=== PATIENT | male | born 1950 | race Caucasian/White ===

== ENCOUNTER 2022-07-28 14:23 | Outpatient (CLI) | payer MEDICARE, SELFPAY ==
[2022-07-28 18:46] LABS: Basophils Absolute Auto 0.1 K/mm3 (0.0-0.1); Basophils Percent Auto 0.6 % (0.2-1.2); Eosinophils Absolute Auto 0.1 K/mm3 (0-0.3); Eosinophils Percent Auto 0.7 % (0-4.4); Hematocrit 45.9 % (42.0-52.0); Hemoglobin 14.8 g/dL (14.0-18.0); Immature Granulocyte Absolute 0.23 K/mm3 (0.00-0.031); Immature Granulocyte Percent A 1.3 % (0-0.5); Lymphocytes Absolute Auto 1.89 K/mm3 (0.9-3.2); Lymphocytes Percent Auto 10.6 % (18.3-44.2); Mean Corpuscular HGB Conc 32.2 g/dl (32-36); Mean Corpuscular Hemoglobin 29.7 pg (26-34); Mean Corpuscular Volume 92.2 fl (80-100); Mean Platelet Volume 10.8 fl (7.4-10.4); Monocytes Absolute Auto 1.6 K/mm3 (0.1-0.6); Monocytes Percent Auto 8.8 % (2.6-8.5); Neutrophils Absolute Auto 13.8 K/mm3 (1.3-6.7); Platelet Count Result 312 k/mm3 (150-375); Red Blood Count 4.98 M/mm3 (4.6-6.20); Red Cell Distribution Width 13.5 % (11.5-14.5); White Blood Count 17.8 K/mm3 (4.5-10.0)
[2022-07-28 19:05] LABS: Hemoglobin A1C 5.8 % (<5.7)
[2022-07-28 19:13] LABS: Alanine Aminotransferase 16 U/L (6-50); Albumin Level 4.4 g/dL (3.5-5.1); Alkaline Phosphatase 124 U/L (38-126); Anion Gap 7 mmol/L (8-16); Aspartate Amino Transferase 59 U/L (17-59); Bilirubin,Total 0.6 mg/dL (0.2-1.3); Blood Urea Nitrogen 26 mg/dL (9-20); Calcium 9.3 mg/dL (8.4-10.2); Carbon Dioxide 28 mmol/L (22-30); Chloride 106 mmol/L (98-107); Cholesterol 151 mg/dL (0-200); Estimated Glomerular Filt Rate 43; Glucose 102 mg/dL (65-110); HDL Direct 26 mg/dL; Potassium 3.3 mmol/L (3.4-5.0); Sodium 141 mmol/L (137-145); Triglycerides 232 mg/dL (<150)
[2022-07-28 19:24] LABS: LDL Cholesterol Direct 81 mg/dL
[2022-07-28 19:28] LABS: Creatinine Urine 311.7 mg/dL
[2022-07-28 19:32] LABS: MALB Creatinine Ratio 40.3 mg/g (0-30); Microalbumin Urine Random 125.7 mg/L (0-16.7)
[2022-07-28 19:43] LABS: Prostate Specific Antigen 3.3 ng/mL (< OR = 4.0)
== END 2022-07-28 14:24 | disposition home or self-care (01) ==
PROVIDERS: PCP Family Medicine; Visit Provider Family Medicine
DX: E11.9 Type 2 diabetes mellitus without complications (principal); G62.9 Polyneuropathy, unspecified; Z12.5 Encounter for screening for malignant neoplasm of prostate
CPT/HCPCS: 36415; 80053; 80061; 82043; 82607; 83036; 84153; 84443; 85025; G0103

== ENCOUNTER 2022-08-16 10:47 | Outpatient (CLI) | payer MEDICARE, SELFPAY ==
[2022-08-16 19:01] LABS: Basophils Absolute Auto 0.1 K/mm3 (0.0-0.1); Basophils Percent Auto 0.3 % (0.2-1.2); Eosinophils Absolute Auto 0.1 K/mm3 (0-0.3); Eosinophils Percent Auto 0.7 % (0-4.4); Hematocrit 45.7 % (42.0-52.0); Hemoglobin 14.4 g/dL (14.0-18.0); Immature Granulocyte Absolute 0.21 K/mm3 (0.00-0.031); Immature Granulocyte Percent A 1.4 % (0-0.5); Lymphocytes Absolute Auto 1.14 K/mm3 (0.9-3.2); Lymphocytes Percent Auto 7.7 % (18.3-44.2); Mean Corpuscular HGB Conc 31.5 g/dl (32-36); Mean Corpuscular Hemoglobin 29.7 pg (26-34); Mean Corpuscular Volume 94.2 fl (80-100); Mean Platelet Volume 10.5 fl (7.4-10.4); Monocytes Percent Auto 6.7 % (2.6-8.5); Neutrophils Absolute Auto 12.3 K/mm3 (1.3-6.7); Neutrophils Percent Auto 83.2 % (45.5-73.1); Platelet Count Result 240 k/mm3 (150-375); Red Blood Count 4.85 M/mm3 (4.6-6.20); White Blood Count 14.8 K/mm3 (4.5-10.0)
[2022-08-16 20:25] LABS: Anion Gap 5 mmol/L (8-16); Blood Urea Nitrogen 29 mg/dL (9-20); Calcium 8.9 mg/dL (8.4-10.2); Carbon Dioxide 24 mmol/L (22-30); Chloride 112 mmol/L (98-107); Estimated Glomerular Filt Rate 50; Glucose 125 mg/dL (65-110); Potassium 3.7 mmol/L (3.4-5.0); Sodium 141 mmol/L (137-145)
== END 2022-08-16 10:48 | disposition home or self-care (01) ==
PROVIDERS: PCP Family Medicine; Visit Provider Family Medicine
DX: N17.9 Acute kidney failure, unspecified (principal); D72.829 Elevated white blood cell count, unspecified
CPT/HCPCS: 36415; 80048; 85025

== ENCOUNTER 2022-08-18 14:15 | Outpatient (CLI) | payer MEDICARE, SELFPAY ==
[2022-08-18 19:48] LABS: CRP < 0.5 mg/dL (<1.0)
[2022-08-18 20:00] LABS: Procalcitonin 0.4 ng/mL
[2022-08-18 20:41] LABS: Erythrocyte Sedimentation Rate 20 mm/hr (0-20)
== END 2022-08-18 14:16 | disposition home or self-care (01) ==
PROVIDERS: PCP Family Medicine; Visit Provider Nurse Practitioner Family
DX: D72.829 Elevated white blood cell count, unspecified (principal); R89.9 Unspecified abnormal finding in specimens from other organs, systems and tissues; N17.9 Acute kidney failure, unspecified
CPT/HCPCS: 36415; 84145; 85652; 86038; 86140

== ENCOUNTER 2023-02-08 08:52 | Outpatient (CLI) | payer MEDICARE, SELFPAY ==
[2023-02-08 18:42] LABS: Anion Gap 10 mmol/L (8-16); Blood Urea Nitrogen 30 mg/dL (9-20); Calcium 9.4 mg/dL (8.4-10.2); Carbon Dioxide 26 mmol/L (22-30); Chloride 108 mmol/L (98-107); Estimated Glomerular Filt Rate 40; Glucose 125 mg/dL (65-110); Sodium 144 mmol/L (137-145)
[2023-02-08 19:22] LABS: Hemoglobin A1C 6.2 % (<5.7)
== END 2023-02-08 08:53 | disposition home or self-care (01) ==
PROVIDERS: PCP Family Medicine; Visit Provider Nurse Practitioner Adult Health
DX: N28.9 Disorder of kidney and ureter, unspecified (principal); G47.30 Sleep apnea, unspecified; E11.9 Type 2 diabetes mellitus without complications
CPT/HCPCS: 36415; 80048; 83036

== ENCOUNTER 2023-05-30 11:56 | Outpatient (CLI) | payer MEDICARE, SELFPAY ==
--- NOTE | ~2023-05-30 | XR_ITS ---
XR elbow LT min 3V DATE: 05/30/2023 12:13 INDICATION: Lateral pain. Limited motion. No injury. TECHNIQUE: 4 views COMPARISON: None FINDINGS: Prominent dorsal olecranon process spur. No fracture or dislocation or joint effusion. No p eriosteal reaction or bone destruction. IMPRESSION: Prominent dorsal olecranon process spur Reviewed, dictated and finalized at location B. 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
[2023-05-30 19:09] LABS: Alanine Aminotransferase 15 U/L (6-50); Alkaline Phosphatase 123 U/L (38-126); Anion Gap 10 mmol/L (8-16); Aspartate Amino Transferase 54 U/L (17-59); Bilirubin,Total 0.7 mg/dL (0.2-1.3); Blood Urea Nitrogen 28 mg/dL (9-20); Calcium 9.4 mg/dL (8.4-10.2); Carbon Dioxide 25 mmol/L (22-30); Chloride 108 mmol/L (98-107); Cholesterol 168 mg/dL (0-200); Estimated Glomerular Filt Rate 43; Glucose 114 mg/dL (65-110); HDL Direct 26 mg/dL; Potassium 3.7 mmol/L (3.4-5.0); Sodium 143 mmol/L (137-145); Triglycerides 297 mg/dL (<150)
[2023-05-30 19:20] LABS: LDL Cholesterol Direct 91 mg/dL
[2023-05-30 19:32] LABS: Hematocrit 47.6 % (42.0-52.0); Hemoglobin 14.5 g/dL (14.0-18.0); Mean Corpuscular HGB Conc 30.5 g/dl (32-36); Mean Corpuscular Hemoglobin 28.9 pg (26-34); Mean Corpuscular Volume 94.8 fl (80-100); Platelet Count Result 256 k/mm3 (150-375); Red Blood Count 5.02 M/mm3 (4.6-6.20); Red Cell Distribution Width 14.6 % (11.5-14.5)
== END 2023-05-30 11:57 | disposition home or self-care (01) ==
PROVIDERS: PCP Family Medicine; Visit Provider Family Medicine
DX: R51.9 Headache, unspecified (principal); M25.522 Pain in left elbow; E11.9 Type 2 diabetes mellitus without complications; R41.89 Other symptoms and signs involving cognitive functions and awareness; Z00.00 Encounter for general adult medical examination without abnormal findings
CPT/HCPCS: 36415; 73080; 80053; 80061; 84443; 85027

== ENCOUNTER 2023-09-07 09:44 | Outpatient (CLI) | payer MEDICARE, SELFPAY ==
[2023-09-07 20:47] LABS: Appearance Urine Clear (Clear); Bilirubin Urine Negative (Negative); Blood Urine Negative (Negative); Color Urine Yellow (Yellow); Glucose Urine UA Negative (Negative); Ketones Urine Negative (Negative); Leukocyte Esterase Ur Negative LEU/UL (Negative); Nitrate Urine Negative (Negative); Protein Urine Negative (Negative); Urobilinogen Urine 0.2 mg/dL (<2.0); pH Urine 5.5 (5.0-9.0)
[2023-09-07 20:56] LABS: Add Urine Microscopic? NO
== END 2023-09-07 09:45 | disposition home or self-care (01) ==
PROVIDERS: PCP Nurse Practitioner Adult Health; Visit Provider Nurse Practitioner Adult Health
DX: R39.9 Unspecified symptoms and signs involving the genitourinary system (principal)
CPT/HCPCS: 81003

== ENCOUNTER 2023-09-22 09:55 | Outpatient (CLI) | payer MEDICARE, SELFPAY ==
[2023-09-22 19:58] LABS: Appearance Urine Cloudy (Clear); Bacteria Urine None Seen /hpf; Bilirubin Urine Negative (Negative); Blood Urine Negative (Negative); Color Urine Yellow (Yellow); Glucose Urine UA Negative (Negative); Ketones Urine Negative (Negative); Leukocyte Esterase Ur Negative LEU/UL (Negative); Need Manual Microscopic Reviewed; Nitrate Urine Negative (Negative); Non Pathogenic Casts 0-2; Protein Urine Trace mg/dL (Negative); RBC Urine 0-2 /hpf (0-2); Specific Grav Ur 1.021 (1.001-1.035); Spermatozoa Urine Present; Squamous Epithelial Cell Urine Occasional /hpf (Few); Urobilinogen Urine 0.2 mg/dL (<2.0); WBC Urine 0-5 /hpf (0-3)
[2023-09-22 20:00] LABS: Add Urine Microscopic? YES
[2023-09-22 20:01] LABS: Alanine Aminotransferase 17 U/L (6-50); Albumin Level 4.2 g/dL (3.5-5.1); Alkaline Phosphatase 108 U/L (38-126); Anion Gap 8 mmol/L (4-12); Aspartate Amino Transferase 81 U/L (17-59); Bilirubin,Total 0.6 mg/dL (0.2-1.3); Blood Urea Nitrogen 33 mg/dL (9-20); Calcium 9.1 mg/dL (8.4-10.2); Carbon Dioxide 25 mmol/L (22-30); Chloride 110 mmol/L (98-107); Cholesterol 164 mg/dL (0-200); Estimated Glomerular Filt Rate 46; Glucose 91 mg/dL (65-110); HDL Direct 28 mg/dL; Potassium 3.7 mmol/L (3.4-5.0); Sodium 143 mmol/L (137-145); Triglycerides 173 mg/dL (<150)
[2023-09-22 20:12] LABS: LDL Cholesterol Direct 101 mg/dL
[2023-09-22 20:25] LABS: Microalbumin Urine Random 60.9 mg/L (0-16.7)
[2023-09-22 20:27] LABS: Hemoglobin A1C 6.2 % (<5.7)
[2023-09-22 20:28] LABS: Prostate Specific Antigen 3.8 ng/mL (< OR = 4.0)
[2023-09-22 20:35] LABS: Creatinine Urine 154.3 mg/dL; MALB Creatinine Ratio 39.5 mg/g (0-30)
== END 2023-09-22 09:56 | disposition home or self-care (01) ==
PROVIDERS: PCP Nurse Practitioner Adult Health; Visit Provider Nurse Practitioner Adult Health
DX: N32.9 Bladder disorder, unspecified (principal); E11.9 Type 2 diabetes mellitus without complications; E07.9 Disorder of thyroid, unspecified; Z12.5 Encounter for screening for malignant neoplasm of prostate
CPT/HCPCS: 36415; 80053; 80061; 81001; 82043; 82565; 83036; 84153; 84443; G0103

== ENCOUNTER 2023-12-07 13:45 | Outpatient (CLI) | payer MEDICARE, SELFPAY ==
[2023-12-07 19:39] LABS: Hematocrit 43.6 % (42.0-52.0); Hemoglobin 13.3 g/dL (14.0-18.0); Mean Corpuscular HGB Conc 30.5 g/dl (32-36); Mean Platelet Volume 10.8 fl (7.4-10.4); Platelet Count Result 229 k/mm3 (150-375); Red Blood Count 4.59 M/mm3 (4.6-6.20); Red Cell Distribution Width 14.4 % (11.5-14.5); White Blood Count 11.2 K/mm3 (4.5-10.0)
[2023-12-07 19:55] LABS: Anion Gap 11 mmol/L (4-12); Blood Urea Nitrogen 34 mg/dL (9-20); Calcium 9.6 mg/dL (8.4-10.2); Carbon Dioxide 29 mmol/L (22-30); Chloride 104 mmol/L (98-107); Estimated Glomerular Filt Rate 40; Glucose 178 mg/dL (65-110); Potassium 3.5 mmol/L (3.4-5.0); Sodium 144 mmol/L (137-145)
== END 2023-12-07 13:46 | disposition home or self-care (01) ==
PROVIDERS: PCP Nurse Practitioner Adult Health; Visit Provider Nurse Practitioner Adult Health
DX: I10 Essential (primary) hypertension (principal)
CPT/HCPCS: 36415; 80048; 85027

== ENCOUNTER 2023-12-20 12:22 | Outpatient (CLI) | payer MEDICARE, SELFPAY ==
[2023-12-20 19:01] LABS: Albumin Level 3.8 g/dL (3.5-5.1); Anion Gap 9 mmol/L (4-12); Blood Urea Nitrogen 35 mg/dL (9-20); Calcium 8.9 mg/dL (8.4-10.2); Carbon Dioxide 29 mmol/L (22-30); Chloride 103 mmol/L (98-107); Estimated Glomerular Filt Rate 40; Glucose 172 mg/dL (65-110); Phosphorus 3.1 mg/dL (2.5-4.5); Potassium 3.6 mmol/L (3.4-5.0); Sodium 141 mmol/L (137-145)
[2023-12-20 19:43] LABS: Hemoglobin A1C 6.9 % (<5.7)
== END 2023-12-20 12:23 | disposition home or self-care (01) ==
PROVIDERS: PCP Nurse Practitioner Adult Health; Visit Provider Nurse Practitioner Adult Health
DX: N28.9 Disorder of kidney and ureter, unspecified (principal); E11.9 Type 2 diabetes mellitus without complications
CPT/HCPCS: 36415; 80069; 83036

== ENCOUNTER 2024-05-28 12:38 | Outpatient (CLI) | payer MEDICARE, SELFPAY ==
--- OUTSIDE RECORDS SUMMARY | 2024-05-28 13:09 | XMS_ITS | Clinical Summary ---
[facility] Organization [facility] Address [address] [place] [address] Care Team Providers Care Rehab Aide Name Role Phone Melchor Woodard MD Primary Care Provider [phone] Allergies Active Allergy Reactions Criticality Noted Date Comments Ceftriaxone Nausea and Vomiting Low 09/23/2021 Hxtcbfc-Ona-Jtp Reductase Inhibitors Other (See Comments) Low 01/26/2018 Generalized pain Medications gabapentin (NEURONTIN) 100 mg capsule TAKE ONE (1) CAPSULE (100 MG TOTAL) BY MOUTH NIGHTLY 08/10/2022 Active losartan (COZAAR) 25 mg tablet 07/28/2022 Active naproxen (NAPROSYN) 500 mg tablet TAKE ONE (1) TABLET (500 MG TOTAL) BY MOUTH TWO (2) (TWO) TIMES a DAY WITH MEALS 08/10/2022 Active nitroglycerin (NITROSTAT) 0.4 mg Tablet, Sublingual Place 0.4 mg under tongue. 12/23/2021 Active topiramate (TOPAMAX) 50 mg tablet TAKE ONE (1) TABLET (50 MG TOTAL) BY MOUTH TWO (2) (TWO) TIMES a DAY 06/16/2022 Active Active Problems No known active problems Family History Medical History Relation Name Comments Heart Disease Father Heart Disease Mother Relation Name Status Comments Daughter 1 Alive Daughter 2 Alive Father Mother Social History Tobacco Use Types Packs/Day Years Used Date Smoking Tobacco: Never Smokeless Tobacco: Never Tobacco Cessation:Counseling Given: Not Answered Alcohol Use Standard Drinks/Week Comments Never 0 (1 standard drink = 0.6 oz pur e alcohol) Sex and Gender Information Value Date Recorded Sex Assigned at Not on file Legal Sex Male 10:59 AM CDT Gender Identity Not on file Sexual Orientation Not on file Last Filed Vital Signs Vital Sign Reading Time Taken Comments Blood Pressure 120/50 09/28/2022 3:22 PM CDT Pulse 66 09/28/2022 3:22 PM CDT Temperature 36.8 ??C (98.2 ??F) 09/28/2022 3:22 PM CD T Respiratory Rate 10 09/28/2022 3:22 PM CDT Oxygen Saturation 98% 09/28/2022 3:22 PM CDT Inhaled Oxygen Concentration - - Weight 109.3 kg (241 lb) 09/28/2022 3:22 PM CDT Height - - Body Mass Index - - Plan of Treatment Health Maintenance Due Date Last Done Comments DIABETES ANNUAL RETINAL EXAM 1970 DIABETES MICROALBUMIN ANNUAL SCREEN 1970 LDL CHOLESTEROL ANNUAL 1970 COLORECTAL SCREENING 1997 Colorectal Cancer Screening 1997 FIT-DNA Q 3 years 1997 FIT/FOBT Q 1 year 1997 Flex Sig/CT Colonography Q 5 years 1997 RSV VACCINE (60+ or ) (1 - Risk 60-74 years 1-dose series) 2012 DIABETES ANNUAL FOOT EXAM 10/28/2022 10/28/2021 INFLUENZA VACCINE (#1) 2023 , 03/18/2020, 02/02/2019, Additional history exists COVID-19 Vaccine (2023-2 5 season) 2024 03/25/2021, 07/08/2020, 06/10/2020 DIABETES HBA1C Q 6 MONTHS 10/12/2024 04/13/2024, DTAP/TDAP/TD VACCINES (3 - T d or Tdap) 02/12/2030 02/13/2020, 12/11/2015 PNEUMOCOCCAL VACCINE 65+ YEARS Completed 09/27/2017 , 03/12/2016 ZOSTER VACCINE Completed 03/19/2020, 11/2018, 03/27/2018 Insurance [facility] [id number] Care Teams Rehab Aide Relationship Specialty Start Date End Date Melchor Woodard MD PCP - General Family Practice 09/28/22
--- OUTSIDE RECORDS SUMMARY | 2024-05-28 13:09 | XMS_ITS | Encounter Summary ---
Author Organization [facility] Address [address] [place] [address] Phone Care Team Providers Care Afternoon Babysitter Name Role Phone Carlos Moran MD Primary Care Provider [phone] Mark De Los Santos MD Unavailable Unavailable Rand Tsang MD Unavailable [phone] Provider, None Primary Care Provider Unavaildanny e Sohail Gould MD Primary Care Provider [phone] Carlos Moran MD Primary Care Provider [phone] Sohail Gould MD Primary Care Provider [phone] Reason for Visit * Reason Comments Medication Refill Encounter Details Date Type Department Care Team (Late st Contact Info) Description 03/21/2020 Refill [facility] Medical [facility] - Primary Care - [place] [address] [place] [address] Carlos Moran MD [address] [place], [place] [id number] Medication Refill Social History Tobacco Use Types Packs/Day Years Used Date Smoking Tobacco: Former Cigarettes 05 26 1 961 - 1985 Smokeless Tobacco: Never Alcohol Use Standard Drinks/Week Comments No 0 (1 standard drink = 0.6 oz pur e alcohol) PHQ-2 Answer Date Recorded Total Score - Questions 1-9 0 06/30 Sexually Active Control Partners Comments Yes Female Sex and Gender Information Value Date Recorded Sex Assigned at Not on file Legal Sex Male 11:59 PM CDT Gender Identity Not on file Sexual Orientation Not on file COVID-19 Exposure Response Date Recorded In the last month, have you been in contact with someone who was confirmed or suspected to have Coronavirus / COVID-19? No / Unsure 03/13/2020 2:58 PM LEGUILLON DEBEADER documented as of this encounter Miscellaneous Notes * Telephone Encounter - Carlos Moran MD - 03/21/2020 10:53 AM LEGUILLON DEBEADER Refill request approved. ILLON DEBEADER * Telephone Encounter - Tavia Pablo [facility] - 03/21/2020 10:42 AM LEGUILLON DEBEADER Medication failed the protocol, provider to review and approve the medication order if appropriate. Requested Prescriptions Pending Prescriptions Disp Refills triamcinolone (KENALOG) 0.1 % Cream [Pharmacy Med Name: TRIAMCINOLONE 0.1% CREAM 0.1 Cream] 80 g 0 Sig: Apply sparingly twice a day to the affected area. Rub cream in until invisible. Not Delegated - Dermatology: Corticosteroids Failed - 03/21/2020 10:40 AM Failed - This refill cannot be delegated Passed - Valid encounter within last 12 months Past Office Visits Recent Outpatient Visits 3 weeks ago Acute pain of left knee [facility] Carlos Moran MD 1 month ago Cellulitis of mouth [facility] Medical [facility] Carlos Moran MD 1 month ago Polyneuropathy associated with underlying disease (HCC) [facility] Family [facility] Carlos Moran MD 4 months ago Hypertension, [facility] Moran MD 8 months ago Urinary pain [facility] Carlos Moran MD Upcoming Appointments Future Appointments In 1 month Fox Shearer MD [facility] month Carlos Moran MD [facility] Medical [facility] - Recent and Past Visits Recent Visits Date Type Provider Dept 02/28/20 Office Visit Carlos Moran MD [facility] [address] 02/18/20 Office Visit Carlos Moran, [facility] [address] 02/05/20 Office Visit Carlos Moran, [facility] [address] 10/24/19 Office Visit Carlos Moran, [place] [address] 07/13/19 Office Visit Carlos Moran, [facility] [place] [facility] 04/23/19 Office Visit Carlos Moran, [place] [facility] 02/12/19 Office Visit Carlos Moran, [facility] Showing recent visits within past 460 days with a meds authorizing provider and meeting all other requirements Future Appointments Date Type Provider Dept 04/24/20 Appointment [facility] future appointments within next 90 days with a meds authorizing provider and meeting all other requirements ILLON DEBEADER documented in this encounter Plan of Treatment Not on file documented as of this encounter Visit Diagnoses Not on filedocumented in this encounter Additional Health Concerns Assessment Noted Time PHQ-9 Depression Total Score: 0 07/13/19 10:00 AM CDT documented as of this encounter Care Teams Afternoon Babysitter Relationship Specialty Start Date End Date Carlos Moran MD [address] [place] [id number] PCP - General Internal Medicine 01/28/15 04/21/20 Provider, None ID PCP - General 04/22/20 08/04/20 Sohail Gould MD [address] [place] [id number] PCP - General Family Medicine 08/05/20 10/06/20 Carlos Moran MD [address] [place] [id number] PCP - General Internal Medicine 10/07/20 08/19/21 Sohail Gould MD [address] [place] [id number] PCP - General Family Medicine 08/20/21 Mark De Los Santos MD [address] [place] [id number] Consulting Physician Urology 09/05/15 Rand Tsang MD [address] [place] [id number] Consulting Physician Dermatopathology 01/16/18 documented as of this encounter
--- OUTSIDE RECORDS SUMMARY | 2024-05-28 13:09 | XMS_ITS | Clinical Summary ---
Author Organization [facility] Address [address] [place] [address] Care Team Providers Care Canoe Maker Name Role Phone Carlos Moran MD Primary Care Provider [phone] Source Comments [facility],non-owned Affiliates and Associated Physician Practices is amultiple site organization consisting of ambulatory clinics and hospital sitesin [place], [place], [place] and [place]. This disclosure is being madepursuant to the Care Everywhere program and may not contain all information available regarding this patient. Last updated 18.[facility] Allergies No known active allergies Medications * Be aware that medications may not be up to date on this document. Alwaysverify current medications with the patient. Medication Sig Dispensed Refills Start Date End Date Status diphenhydrAMINE (BENADRYL) 25 MG capsule Take 50 mg by mouth nightly as needed for Itching Active furosemide (LASIX) 40 MG tablet Take 40 mg by mouth once daily 03/20/2018 Active hydrOXYzine hcl (ATARAX) 25 MG tabletIndications:R leanna and other nonspecific skin eruption Take 1-2 tablets by mouth at bedtime As needed for itching. 60 tablet 2 03/21/2018 Active gabapentin (NEURONTIN) 300 MG capsuleIndications: Rash and other nonspecific skin eruption Take 1 capsule by mouth 3 times daily 90 capsule 3 03/21/2018 Active Additional Information Patient not taking.Reported on 05/30/2018 triamcinolone acetonide (KENALOG) 0.1 % ointmentIndications :Rash and other nonspecific skin eruption Apply to affected areas on arms, legs, back twice daily. 30 days supply. 454 g 5 05/30/2018 Active Active Problems Problem Noted Date Diagnosed Date Skin tag 09/28/2018 Encounters Date Type Department Care Team Description 04/13/2024 Lab Requisition [facility] [address] [place] [address] Maged Mcdonnell from Last 3 Months Family History Medical History Relation Name Comments Asthma Neg Hx CVA Neg Hx Cancer - Breast Neg Hx Cancer - Other Neg Hx Cancer - Skin, Melanoma Neg Hx Cancer - Skin, Non Melanoma Neg Hx Eczema Neg Hx Hemophilia Neg Hx Psoriasis Neg Hx Social History Tobacco Use Types Packs/Day Years Used Date Smoking Tobacco: Former Smokeless Tobacco: Never Alcohol Use Standard Drinks/Week Comments No 0 (1 standard drink = 0.6 oz pur e alcohol) Sex and Gender Information Value Date Recorded Sex Assigned at Not on file Gender Identity Not on file Sexual Orientation Not on file Last Filed Vital Signs Vital Sign Reading Time Taken Comments Blood Pressure 136/78 04/24/2017 10:32 AM PROMOTIONS REPRESENTATIVE Pulse 78 04/24/2017 10:32 AM PROMOTIONS REPRESENTATIVE Temperature 36.8 ??C (98.2 ??F) 04/24/2017 10:[address] Respiratory Rate - - Oxygen Saturation - - Inhaled Oxygen Concentration - - Weight 104.8 kg (231 lb) 04/24/2017 10:32 AM PROMOTIONS REPRESENTATIVE Height 177.8 cm (5' 10 ) 04/24/2017 10:32 AM PROMOTIONS REPRESENTATIVE Body Mass Index 33.15 04/24/2017 10:32 AM PROMOTIONS REPRESENTATIVE Plan of Treatment Health Maintenance Due Date Last Done Comments COLOGUARD (AGES 45-75) - COLON CA SCREENING 1952 COLON MONITORING 1952 COLONOSCOPY - COLON CA SCREENING 1952 CT COLONOGRAPHY - COLON CA SCREENING 1952 Colorectal Cancer Screening 1952 FIT - COLON CA SCREENING 1952 FLEX SIG - COLON CA SCREENING 1952 HEPATITIS C SCREENING 06/11/1970 DTAP/TDAP/TD VACCINES (1 - Tdap) 1971 PNEUMOCOCCAL VACCINE 50+ (1 of 1 - PCV) 2002 ZOSTER VACCINE (1 of 2) 2002 AAA SCREENING 2017 COVID-19 VACCINE (4 - season) 2024 03/25/2021, 07/08/2020, 06/10/2020 INFLUENZA VACCINE (#1) 2024 , 03/19/2020, 02/02/2019, Additional history exists DEPRESSION SCREENING 05/02/2024 MEDICARE AWV ? CALENDAR YEAR 2024 Respiratory Syncytial Virus (RSV) Vaccine Pt: or over 60 yrs (1 - 1-dose 75+ series) 2027 LIPID TESTING 04/13/2029 04/13/2024 HEPATITIS B VACCINE Aged Out No longe r eligible based on patient's age to complete this topic HIB VACCINE Aged Out No longer eligi ble based on patient's age to complete this topic HPV VACCINE Aged Out No longer eligi ble based on patient's age to complete this topic MENINGOCOCCAL (Group B) VACCINE Aged Out No longer eligible based on patient's age to complete this topic MENINGOCOCCAL VACCINE Aged Out No irasema fede eligible based on patient's age to complete this topic Procedures Procedure Name Priority Date/Time Associated Diagnosis Comments HEMOGLOBIN A1C STAT 04/13/2024 3:21 PM PROMOTIONS REPRESENTATIVE LIPID PROFILE STAT 04/13/2024 3:21 PM PROMOTIONS REPRESENTATIVE TSH REFLEX FREE T4 STAT 04/13/2024 3: 21 PM PROMOTIONS REPRESENTATIVE COMPREHENSIVE METABOLIC PANEL STAT 04/13/2024 3:21 PM PROMOTIONS REPRESENTATIVE CBC W AUTO DIFFERENTIAL STAT 04/13/2024 3:21 PM PROMOTIONS REPRESENTATIVE from Last 3 Months Results * TSH REFLEX FREE T4 (04/13/2024 3:21 PM PROMOTIONS REPRESENTATIVE) TSH 3.335 0.350 - 4.940 uIU/mL 04/13/2024 4:06 PM PROMOTIONS REPRESENTATIVE [facility] Blood BLOOD SPECIMEN / Unknown Venipuncture / Unknown 04/13/2024 3:21 PM PROMOTIONS REPRESENTATIVE 04/13/2024 3:25 PM PROMOTIONS REPRESENTATIVE Maged Mcdonnell LAB - CHEMISTRY ALFREDO WHEELER [facility] [address] [place] [address] * (ABNORMAL) HEMOGLOBIN A1C (04/13/2024 3:21 PM PROMOTIONS REPRESENTATIVE) Hemoglobin A1c 7.3(H) <5.7 % 04/13/2024 3:47 PM PROMOTIONS REPRESENTATIVE [facility] Estimated Average Glucose 163 mg/dL 04/13/2024 3:47 PM PROMOTIONS REPRESENTATIVE [facility] Blood BLOOD SPECIMEN / Unknown 04/13/2024 3:21 PM PROMOTIONS REPRESENTATIVE 04/13/2024 3:25 PM PROMOTIONS REPRESENTATIVE [facility] - 04/13/2024 3:47 PM PROMOTIONS REPRESENTATIVE HbA1c Interpretation: Normal: < 5.7% Pre-diabetes: 5.7-6.4% Diabetes: Equal to or greater than 6.5% Test results diagnostic of diabetes should be repeated for confirmation. Treatment target values recommended by ADA and other clinical organizations should be used to evaluate metabolic control in patients. This test should not replace glucose testing for patients with Type 1 diabetes, pediatric patients, or women. ??Falsely low HbA1c results may be observed in patients with clinical conditions that shorten erythrocyte life span or decrease mean erythrocyte age such as the presence of unstable hemoglobin variants, elevated hemoglobin F level or other causes of hemolytic anemia. ??HbA1c may not accurately reflect glycemic control when clinical conditions that affect erythrocyte survival are present. ??Severe Iron deficiency anemia may yield falsely high results. ??Hemoglobin A1c assay should not be used to diagnose or monitor diabetes in patients with malignancy, recent blood transfusion, chronic kidney or liver disease. ?? This method may yield falsely low results when hemoglobin (HbF) exceeds 5% in the specimen. The Black Alinity assay for the measurement of HbA1c is a National Glycohemoglobin Standardization Program (NGSP) certified method. Maged Mcdonnell LAB - CHEMISTRY ALFREDO WHEELER [facility] [address] [id number] * (ABNORMAL) CBC WITH DIFFERENTIAL (04/13/2024 3:21 PM PROMOTIONS REPRESENTATIVE) WBC 11.8(H) 4.0 - 10.7 x10E9/L 04/13/2024 3:32 PM PROMOTIONS REPRESENTATIVE [facility] RBC Count 4.77 4.30 - 5.80 x10E12/L 04/13/2024 3:32 PM [facility] Hemoglobin 13.9 13.3 - 17.5 g/dL 04/13/2024 3:32 PM [facility] Hematocrit 44.8 38.7 - 51.1 % 04/13/2024 3:32 PM [facility] MCV 93.9 80.0 - 98.0 fL 04/13/2024 3:32 PM [facility] MCH 29.1 26.7 - 33.6 pg 04/13/2024 3:32 PM [facility] MCHC 31.0(L) 31.7 - 36.3 g/dL 04/13/2024 3:32 PM [facility] RDW-CV 13.2 11.3 - 14.8 % 04/13/2024 3:32 PM [facility] Platelet Count 253 150 - 420 x10E9/L 04/13/2024 3:32 PM [facility] MPV 10.2 7.8 - 11.4 fL 04/13/2024 3:32 PM [facility] Neutrophil % 79.0(H) 41.0 - 74.0 % 04/13/2024 3:32 PM [facility] Lymphocyte % 10.8(L) 17.0 - 47.0 % 04/13/2024 3:32 PM [facility] Monocyte % 7.3 3.0 - 11.0 % 04/13/2024 3:32 PM [facility] Eosinophil % 1.5 0.0 - 7.0 % 04/13/2024 3:32 PM [facility] Basophil % 0.3 0.0 - 1.6 % 04/13/2024 3:32 PM [facility] Immature Granulocytes % 1.1(H) 0.0 - 1.0 % 04/13/2024 3:32 PM [facility] Neutrophil Absolute 9.32(H) 1.60 - 7.50 x10E9/L 04/13/2024 3:32 PM [facility] Lymphocyte Absolute 1.27 1.00 - 4.40 x10E9/L 04/13/2024 3:32 PM [facility] Monocyte Absolute 0.86 0.15 - 1.00 x10E9/L 04/13/2024 3:32 PM PROMOTIONS REPRESENTATIVE [facility] Eosinophil Absolute 0.18 0.00 - 0.60 x10E9/L 04/13/2024 3:32 PM [facility] Basophil Absolute 0.04 0.00 - 0.13 x10E9/L 04/13/2024 3:32 PM [facility] Blood BLOOD SPECIMEN / Unknown 04/13/2024 3:21 PM PROMOTIONS REPRESENTATIVE 04/13/2024 3:25 PM PROMOTIONS REPRESENTATIVE Maged Kecia LAB - HEMATOLOGY ORD ERABLES [facility] [address] [place] [address] * (ABNORMAL) COMPREHENSIVE METABOLIC PANEL (04/13/2024 3:21 PM PROMOTIONS REPRESENTATIVE) Glucose 193(H) 70 - 99 mg/dL 04/13/2024 3:48 PM [facility] Sodium 140 136 - 145 mmol/L 04/13/2024 3:48 PM [facility] Potassium 3.4(L) 3.5 - 5.1 mmol/L 04/13/2024 3:48 PM [facility] Chloride 104 98 - 107 mmol/L 04/13/2024 3:48 PM [facility] CO2 26 22 - 29 mmol/L 04/13/2024 3:48 PM [facility] Calcium 9.6 8.4 - 10.4 mg/dL 04/13/2024 3:48 PM [facility] Anion Gap 10 6 - 16 mmol/L 04/13/2024 3:48 PM [facility] BUN 21 7 - 26 mg/dL 04/13/2024 3:48 PM [facility] Creatinine 1.51(H) 0.72 - 1.25 mg/dL 04/13/2024 3:48 PM [facility] Alkaline Phosphatase 109 40 - 150 U/L 04/13/2024 3:48 PM [facility] ALT 14 0 - 55 U/L 04/13/2024 3:48 PM [facility] AST 13 5 - 34 U/L 04/13/2024 3:48 PM PROMOTIONS REPRESENTATIVE [facility] Protein Total 6.9 6.4 - 8.3 gm/dL 04/13/2024 3:48 PM PROMOTIONS REPRESENTATIVE [facility] Albumin 3.4 3.4 - 5.0 gm/dL 04/13/2024 3:48 PM PROMOTIONS REPRESENTATIVE [facility] Bilirubin Total 0.3 0.2 - 1.2 mg/dL 04/13/2024 3:48 PM PROMOTIONS REPRESENTATIVE [facility] eGFR by CKD-EPI 49(L) >=90 mL/min/1.7 3 m2 04/13/2024 3:48 PM PROMOTIONS REPRESENTATIVE [facility] Blood BLOOD SPECIMEN / Unknown Venipuncture / Unknown 04/13/2024 3:21 PM PROMOTIONS REPRESENTATIVE 04/13/2024 3:25 PM PROMOTIONS REPRESENTATIVE Maged Mcdonnell LAB - CHEMISTRY ALFREDO WHEELER Performing Organization Address [facility]/ZIP Co de Phone Number [facility] [address] [place] [address] * (ABNORMAL) LIPID PROFILE (04/13/2024 3:21 PM PROMOTIONS REPRESENTATIVE) [facility] Cholesterol 173 <200 mg/dL 04/13/2024 3:48 PM PROMOTIONS REPRESENTATIVE [facility] Triglycerides 179(H) <150 mg/dL 04/13/2024 3:48 PM PROMOTIONS REPRESENTATIVE [facility] HDL Cholesterol 26(L) >40 mg/dL 4 3:48 PM PROMOTIONS REPRESENTATIVE [facility] LDL Calculated 111 <130 mg/dL 04/13/2024 3:48 PM PROMOTIONS REPRESENTATIVE [facility] VLDL Calculated 36(H) <=30 mg/dL 4 3:48 PM PROMOTIONS REPRESENTATIVE [facility] Chol HDL Ratio 6.7(H) <4.5 04/13/2024 3:48 PM PROMOTIONS REPRESENTATIVE [facility] LDL/HDL Ratio 4.3 <5.0 04/13/2024 3:48 PM PROMOTIONS REPRESENTATIVE [facility] Blood BLOOD SPECIMEN / Unknown Venipuncture / Unknown 04/13/2024 3:21 PM PROMOTIONS REPRESENTATIVE 04/13/2024 3:25 PM PROMOTIONS REPRESENTATIVE Maged Mcdonnell LAB - CHEMISTRY ALFREDO WHEELER [facility] [address] [place] [address] from Last 3 Months Care Teams Canoe Maker Relationship Specialty Start Date End Date Carlos Moran MD PCP - General Internal Medicine 04/24/17
--- OUTSIDE RECORDS SUMMARY | 2024-05-28 13:09 | XMS_ITS | Referral Summary ---
Author Organization [facility] Address [address] [place] [address] Care Team Providers Care Absence Management Consultant Name Role Phone Carlos Moran MD Primary Care Provider [phone] Source Comments [facility],non-owned Affiliates and Associated Physician Practices is amultiple site organization consisting of ambulatory clinics and hospital sitesin [place], [place], [place] and [place]. This disclosure is being madepursuant to the Care Everywhere program and may not contain all information available regarding this patient. Last updated 18.[facility] Encounters Date Type Department Care Team Description 04/13/2024 Lab Requisition [facility] [address] [place] [address] Maged Mcdonnell from Last 3 Months Allergies No known active allergies Medications * [...] Noted Date Diagnosed Date Skin tag 09/28/2018 Social History Tobacco Use Types Packs/Day Years [...] Comments Blood Pressure 136/78 04/24/2017 10:32 AM CABANA ATTENDANT Pulse 78 04/24/2017 10:32 AM CABANA ATTENDANT Temperature 36.8 ??C (98.2 ??F) 04/24/2017 10:[address] Respiratory Rate - - Oxygen Saturation - - Inhaled Oxygen Concentration - - Weight 104.8 kg (231 lb) 04/24/2017 10:32 AM CABANA ATTENDANT Height 177.8 cm (5' 10 ) 04/24/2017 10:32 AM CABANA ATTENDANT Body Mass Index 33.15 04/24/2017 10:32 AM CABANA ATTENDANT Plan of Treatment Not on file Procedures Procedure Name Priority Date/Time Associated Diagnosis Comments HEMOGLOBIN A1C STAT 04/13/2024 3:21 PM CABANA ATTENDANT LIPID PROFILE STAT 04/13/2024 3:21 PM CABANA ATTENDANT TSH REFLEX FREE T4 STAT 04/13/2024 3: 21 PM CABANA ATTENDANT COMPREHENSIVE METABOLIC PANEL STAT 04/13/2024 3:21 PM CABANA ATTENDANT CBC W AUTO DIFFERENTIAL STAT 04/13/2024 3:21 PM CABANA ATTENDANT from Last 3 Months Results * TSH REFLEX FREE T4 (04/13/2024 3:21 PM CABANA ATTENDANT) TSH 3.335 0.350 - 4.940 uIU/mL 04/13/2024 4:06 PM CABANA ATTENDANT [facility] Blood BLOOD SPECIMEN / Unknown Venipuncture / Unknown 04/13/2024 3:21 PM CABANA ATTENDANT 04/13/2024 3:25 PM CABANA ATTENDANT Maged Mcdonnell LAB - CHEMISTRY ALFREDO WHEELER Performing Organization Address [facility] Co de Phone Number [facility] [address] [place] [address] * (ABNORMAL) HEMOGLOBIN A1C (04/13/2024 3:21 PM CABANA ATTENDANT) Hemoglobin A1c 7.3(H) <5.7 % 04/13/2024 3:47 PM CABANA ATTENDANT [facility] Estimated Average Glucose 163 mg/dL 04/13/2024 3:47 PM CABANA ATTENDANT [facility] Blood BLOOD SPECIMEN / Unknown 04/13/2024 3:21 PM CABANA ATTENDANT 04/13/2024 3:25 PM CABANA ATTENDANT Narrative [facility] - 04/13/2024 3:47 PM CABANA ATTENDANT HbA1c Interpretation: Normal: < 5.7% Pre-diabetes: 5.7-6.4% [...] Glycohemoglobin Standardization Program (NGSP) certified method. Maged Yusufwal LAB - CHEMISTRY ALFREDO WHEELER Performing Organization Address [facility]/ZIP Co de Phone Number [facility] [address] [place] [address] * (ABNORMAL) CBC WITH DIFFERENTIAL (04/13/2024 3:21 PM CABANA ATTENDANT) [facility] WBC 11.8(H) 4.0 - 10.7 x10E9/L 04/13/2024 3:32 PM [facility] RBC Count 4.77 4.30 - 5.80 x10E12/L 04/13/2024 3:32 PM [facility] Hemoglobin 13.9 13.3 - 17.5 g/dL 04/13/2024 3:32 PM [facility] Hematocrit 44.8 38.7 - 51.1 % 04/13/2024 3:32 PM [facility] MCV 93.9 80.0 - 98.0 fL 04/13/2024 3:32 PM [facility] MCH 29.1 26.7 - 33.6 pg 04/13/2024 3:32 PM [facility] MCHC 31.0(L) 31.7 - 36.3 g/dL 04/13/2024 3:32 PM [facility] RDW-CV 13.2 11.3 - 14.8 % 04/13/2024 3:32 PM [facility] Platelet Count 253 150 - 420 x10E9/L 04/13/2024 3:32 PM [facility] MPV 10.2 7.8 - 11.4 fL 04/13/2024 3:32 PM [facility] Neutrophil % 79.0(H) 41.0 - 74.0 % 04/13/2024 3:32 PM [facility] Lymphocyte % 10.8(L) 17.0 - 47.0 % 04/13/2024 3:32 PM [facility] Monocyte % 7.3 3.0 - 11.0 % 04/13/2024 3:32 PM [facility] Eosinophil % 1.5 0.0 - 7.0 % 04/13/2024 3:32 PM [facility] Basophil % 0.3 0.0 - 1.6 % 04/13/2024 3:32 PM [facility] Immature Granulocytes % 1.1(H) 0.0 - 1.0 % 04/13/2024 3:32 PM [facility] Neutrophil Absolute 9.32(H) 1.60 - 7.50 x10E9/L 04/13/2024 3:32 PM CABANA ATTENDANT [facility] Lymphocyte Absolute 1.27 1.00 - 4.40 x10E9/L 04/13/2024 3:32 PM CABANA ATTENDANT [facility] Monocyte Absolute 0.86 0.15 - 1.00 x10E9/L 04/13/2024 3:32 PM CABANA ATTENDANT [facility] Eosinophil Absolute 0.18 0.00 - 0.60 x10E9/L 04/13/2024 3:32 PM [facility] Basophil Absolute 0.04 0.00 - 0.13 x10E9/L 04/13/2024 3:32 PM [facility] Blood BLOOD SPECIMEN / Unknown 04/13/2024 3:21 PM CABANA ATTENDANT 04/13/2024 3:25 PM CABANA ATTENDANT Maged Kecia LAB - HEMATOLOGY ORD ERABLES [facility] [address] [place], [place] [id number] * (ABNORMAL) COMPREHENSIVE METABOLIC PANEL (04/13/2024 3:21 PM CABANA ATTENDANT) Glucose 193(H) 70 - 99 mg/dL 04/13/2024 3:48 PM [facility] Sodium 140 136 - 145 mmol/L 04/13/2024 3:48 PM [facility] Potassium 3.4(L) 3.5 - 5.1 mmol/L 04/13/2024 3:48 PM [facility] Chloride 104 98 - 107 mmol/L 04/13/2024 3:48 PM [facility] CO2 26 22 - 29 mmol/L 04/13/2024 3:48 PM [facility] Calcium 9.6 8.4 - 10.4 mg/dL 04/13/2024 3:48 PM [facility] Anion Gap 10 6 - 16 mmol/L 04/13/2024 3:48 PM [facility] BUN 21 7 - 26 mg/dL 04/13/2024 3:48 PM [facility] Creatinine 1.51(H) 0.72 - 1.25 mg/dL 04/13/2024 3:48 PM CABANA ATTENDANT [facility] Alkaline Phosphatase 109 40 - 150 U/L 04/13/2024 3:48 PM CABANA ATTENDANT [facility] ALT 14 0 - 55 U/L 04/13/2024 3:48 PM CABANA ATTENDANT [facility] AST 13 5 - 34 U/L 04/13/2024 3:48 PM CABANA ATTENDANT [facility] Protein Total 6.9 6.4 - 8.3 gm/dL 04/13/2024 3:48 PM CABANA ATTENDANT [facility] Albumin 3.4 3.4 - 5.0 gm/dL 04/13/2024 3:48 PM CABANA ATTENDANT [facility] Bilirubin Total 0.3 0.2 - 1.2 mg/dL 04/13/2024 3:48 PM CABANA ATTENDANT [facility] eGFR by CKD-EPI 49(L) >=90 mL/min/1.7 3 m2 04/13/2024 3:48 PM [facility] Blood BLOOD SPECIMEN / Unknown Venipuncture / Unknown 04/13/2024 3:21 PM CABANA ATTENDANT 04/13/2024 3:25 PM CABANA ATTENDANT Maged Kecia LAB - CHEMISTRY ALFREDO WHEELER [facility] [address] [place], [place] [id number] * (ABNORMAL) LIPID PROFILE (04/13/2024 3:21 PM CABANA ATTENDANT) Cholesterol 173 <200 mg/dL 04/13/2024 3:48 PM [facility] Triglycerides 179(H) <150 mg/dL 04/13/2024 3:48 PM [facility] HDL Cholesterol 26(L) >40 mg/dL 4 3:48 PM CABANA ATTENDANT [facility] LDL Calculated 111 <130 mg/dL 04/13/2024 3:48 PM [facility] VLDL Calculated 36(H) <=30 mg/dL 4 3:48 PM CABANA ATTENDANT [facility] Chol HDL Ratio 6.7(H) <4.5 04/13/2024 3:48 PM CABANA ATTENDANT [facility] LDL/HDL Ratio 4.3 <5.0 04/13/2024 3:48 PM CABANA ATTENDANT [facility] Blood BLOOD SPECIMEN / Unknown Venipuncture / Unknown 04/13/2024 3:21 PM CABANA ATTENDANT 04/13/2024 3:25 PM CABANA ATTENDANT Maged Mcdonnell LAB - CHEMISTRY ALFREDO WHEELER [facility] [address] [place] [address] from Last 3 Months Care Teams Absence Management Consultant Relationship Specialty Start Date End Date Carlos Moran MD PCP - General Internal Medicine 04/24/17
--- OUTSIDE RECORDS SUMMARY | 2024-05-28 13:09 | XMS_ITS | Encounter Summary ---
Author Organization [facility] Address [address] [place] [address] Phone Care Team Providers Care Precipitator Supervisor Name Role Phone Mark De Los Santos MD Unavailable Unavailable Rand Tsang MD Unavailable [phone] Carlos Moran MD Primary Care Provider [phone] Sohail Gould MD Primary Care Provider [phone] Reason for Visit * Reason Comments Medication Refill Encounter Details Date Type Department Care Team (Late st Contact Info) Description 01/26/2021 Refill [facility] - Primary Care - [place] [address] [place] [address] Carlos Moran MD [address] [place] [address] Medication Refill Social History Tobacco Use Types Packs/Day Years Used Date Smoking Tobacco: Former Cigarettes 961 - 1985 Smokeless Tobacco: Never Alcohol [...] on file Sexual Orientation Not on file documented as of this encounter Miscellaneous Notes * Telephone Encounter - Izzy Brenner RN - 01/26/2021 2:55 PM CDT Pt states he did not request this refill from Dr. Moran. It is prescribed by a specialist. documented in this encounter Plan of Treatment Not on file documented as of this encounter Visit Diagnoses Not on filedocumented in this encounter Additional Health Concerns Assessment Noted Time PHQ-9 Depression Total Score: 0 07/13/19 20 10:00 AM CDT documented as of this encounter Care Teams Precipitator Supervisor Relationship Specialty Start Date End Date Carlos Moran MD [address] [place] [address] PCP - General Internal Medicine 10/07/20 08/19/21 Sohail Gould MD [address] [place] [address] PCP - General Family Medicine 08/20/21 Mark De Los Santos MD Consulting Physician Urology 09/05/15 Rand Tsang MD Consulting Physician Dermatopathology 01/16/18 documented as of this encounter
--- OUTSIDE RECORDS SUMMARY | 2024-05-28 13:09 | XMS_ITS | Encounter Summary ---
Author Organization [facility] Address [address] [place] [address] Care Team Providers Care Silk Screen Frame Assembler Name Role Phone Nicolas Jung MD Unavailable [phone] Louie Lomeli MD Unavailable [phone] Melchor Woodard MD Primary Care Provider [phone] Jairo Sparrow MD Unavailable [phone] NavarreteMaria Eugenia quiñones [facility] Unavailable Encounter Details Date Type Department Care Team (Late st Contact Info) Description 06/02/2023 Telephone [facility] [address] [place] [address] Jonathan Miranda MD [address] [place] [address] Social History Tobacco Use Types Packs/Day Years Used Date Smoking Tobacco: Former Smokeless Tobacco: Never Comments:quit in 1985 Alcohol Use Standard Drinks/Week Comments No 0 (1 standard drink = 0.6 oz pur e alcohol) Social Connection and Isolation Panel [NHANES] A nswer Date Recorded In a typical week, how many times do you talk on the phone with family, friends, or neighbors? Three times a week 02/04/2023 How often do you get togethe r with friends or relatives? Once a week 02/04/2023 How often do you attend [facility] or bahai services? Never 02/04/2023 Do you belong to any clubs o r organizations such as jewish groups, unions, fraternal or athletic groups, or school groups? No 02/04/2023 How often do you attend meet ings of the clubs or organizations you belong to? Never 02/04/2023 Are you , , di vorced, , never , or living with a partner? 02/04/2023 AUDIT-C Answer Date Recorded Q1: How often do you have a drink containing alcohol? Never 02/03/2023 Q2: How many drinks containi ng alcohol do you have on a typical day when you are drinking? Patient does not drink Q3: How often do you have si x or more drinks on one occasion? Never 02/03/2023 Overall Financial Resource Strain (CARDIA) Answe r Date Recorded How hard is it for you to pa y for the very basics like food, housing, medical care, and heating? Somewhat hard 02/04/2023 PHQ-2 Answer Date Recorded PHQ-2 Total Score (If total score is 3 or more points, staff should administer the PHQ-9) 0 05/27/2022 Exercise Vital Sign Answer Date Recorde d On average, how many days pe r week do you engage in moderate to strenuous exercise (like a brisk walk)? 0 days 05/27/2022 On average, how many minutes do you engage in exercise at this level? 0 min 05/27/2022 Hunger Vital Sign Answer Date Recorded Within the past 12 months, y ou worried that your food would run out before you got the money to buy more. Never true 02/05/20 23 Within the past 12 months, t he food you bought just didn't last and you didn't have money to get more. Never true 02/04/2023 PRAPARE - Transportation Answer Date Re corded In the past 12 months, has l ack of transportation kept you from medical appointments or from getting medications? No 09/2022 In the past 12 months, has l ack of transportation kept you from meetings, work, or from getting things needed for daily living? No 02/04/2023 Housing Stability Vital Sign Answer Víctor e Recorded In the last 12 months, was t here a time when you were not able to pay the mortgage or rent on time? No 02/04/2023 In the last 12 months, how many places have you lived? 1 02/04/2023 In the last 12 months, was t here a time when you did not have a steady place to sleep or slept in a senior living (including now)? Yes 02/04/2023 Personal Safety Answer Date Recorded Have you ever been in or are you currently in a harmful physical or emotional relationship or is someone making you feel afraid or unsafe? Denies 03/09/2023 Sex and Gender Information Value Date Recorded Sex Assigned at Not on file Legal Sex Male 12:23 AM LAMINA SEARCHER Gender Identity Not on file Sexual Orientation Not on file documented as of this encounter Plan of Treatment Not on file documented as of this encounter Visit Diagnoses Not on filedocumented in this encounter Additional Health Concerns Infection Onset Date Last Indicated Resolved Time COVID: Suspected 12/28/2023 12/28/2023 12/28/2023 11:38 AM CDT COVID19 Comment:This patient is not immunocompromised. Based on a S&S onset date of 12/26/23 plus no immunosuppression this patient is first eligible for COVID: Recovered evaluation on 01/06/24. DENISE Rangel 12/28/2023 12/28/2023 01/10/2024 3:06 AM C DT COVID: Recovered Comment:Added based on recent COVID infection. 01/10/2024 01/10/2024 04/09/2024 3:[address] documented as of this encounter Care Teams Silk Screen Frame Assembler Relationship Specialty Start Date End Date Melchor Woodard MD PCP - General Family Practice 07/30/22 Nicolas Jung MD Surgeon Orthopedic Surgery 08/05/21 Louie Lomeli MD Consulting Physician Cardiology 12/23/21 Jairo Sparrow MD [address] [place] [address] [place] [address] Consulting Physician Neurology 12/14/22 Maria Eugenia Navarrete, [address] [place] [address] Pharmacist Pharmacy 03/12/24 03/12/24 documented as of this encounter
--- OUTSIDE RECORDS SUMMARY | 2024-05-28 13:09 | XMS_ITS | Patient Health Summary ---
Author Organization [facility] Address [address] [place] [address] Care Team Providers Care Health Promotion Specialist Name Role Phone Carlos Moran MD Primary Care Provider [phone] [facility],non-owned Affiliates and Associated Physician Practices is amultiple site organization consisting of ambulatory clinics and hospital sitesin [place], [place], [place] and [place]. This disclosure is being madepursuant to the Care Everywhere program and may not contain all information available regarding this patient. Last updated 18.[facility] Allergies No known active allergies* Tree Nuts(Rash) -Medium Criticality,Inactive Medications * Be aware that medications may not be up to date on this document. Alwaysverify current medications with the patient. * diphenhydrAMINE (BENADRYL) 25 MG capsule Take 50 mg by mouth nightly as needed for Itching * furosemide (LASIX) 40 MG tablet(Started 03/20/2018) Take 40 mg by mouth once daily * hydrOXYzine hcl (ATARAX) 25 MG tablet(Started 03/21/2018) Take 1-2 tablets by mouth at bedtime As needed for itching. 2 refills remaining * gabapentin (NEURONTIN) 300 MG capsule(Started 03/21/2018) Take 1 capsule by mouth 3 times daily 3 refills remaining * triamcinolone acetonide (KENALOG) 0.1 % ointment(Started 05/30/2018) Apply to affected areas on arms, legs, back twice daily. 30 days supply. 5 refills remaining Active Problems Problem Noted Date Diagnosed Date [...] Comments Blood Pressure 136/78 04/24/2017 10:32 AM STOCK PREPARER Pulse 78 04/24/2017 10:32 AM STOCK PREPARER Temperature 36.8 ??C (98.2 ??F) 04/24/2017 10:[address] Respiratory Rate - - Oxygen Saturation - - Inhaled Oxygen Concentration - - Weight 104.8 kg (231 lb) 04/24/2017 10:32 AM STOCK PREPARER Height 177.8 cm (5' 10 ) 04/24/2017 10:32 AM STOCK PREPARER Body Mass Index 33.15 04/24/2017 10:32 AM STOCK PREPARER Procedures * HEMOGLOBIN A1C(Performed 04/13/2024) * LIPID PROFILE(Performed 04/13/2024) * TSH REFLEX FREE T4(Performed 04/13/2024) * COMPREHENSIVE METABOLIC PANEL(Performed 04/13/2024) * CBC W AUTO DIFFERENTIAL(Performed 04/13/2024) * AZ DESTRUCT BENIGN LESION, 1-14(Performed 05/30/2018) Performed for Other viral warts * AZ DESTROY PREMALIG LESION, 1ST LESION(Performed 09/27/2017) Performed for Actinic keratosis Results * TSH REFLEX FREE T4 (04/13/2024 3:21 PM STOCK PREPARER) Pathologist [facility] TSH 3.335 0.350 - 4.940 uIU/mL 04/13/2024 4:06 PM STOCK PREPARER [facility] Blood BLOOD SPECIMEN / Unknown Venipuncture / Unknown 04/13/2024 3:21 PM STOCK PREPARER 04/13/2024 3:25 PM STOCK PREPARER [facility] - CHEMISTRY ALFREDO WHEELER [facility] [address] [place] [address] * (ABNORMAL) HEMOGLOBIN A1C (04/13/2024 3:21 PM STOCK PREPARER) Hemoglobin A1c 7.3(H) <5.7 % 04/13/2024 3:47 PM STOCK PREPARER [facility] Estimated Average Glucose 163 mg/dL 04/13/2024 3:47 PM STOCK PREPARER [facility] Blood BLOOD SPECIMEN / Unknown 04/13/2024 3:21 PM STOCK PREPARER 04/13/2024 3:25 PM STOCK PREPARER Narrative [facility] - 04/13/2024 3:47 PM STOCK PREPARER HbA1c Interpretation: Normal: < 5.7% Pre-diabetes: 5.7-6.4% [...] Maged Mcdonnell [facility] - CHEMISTRY ALFREDO WHEELER [facility] [address] [place] [address] * (ABNORMAL) CBC WITH DIFFERENTIAL (04/13/2024 3:21 PM STOCK PREPARER) [facility] WBC 11.8(H) 4.0 - 10.7 x10E9/L 04/13/2024 3:32 PM STOCK PREPARER [facility] RBC Count 4.77 4.30 - 5.80 x10E12/L 04/13/2024 3:32 PM STOCK PREPARER [facility] Hemoglobin 13.9 13.3 - 17.5 g/dL 04/13/2024 3:32 PM [facility] Hematocrit 44.8 38.7 - 51.1 % 04/13/2024 3:32 PM [facility] MCV 93.9 80.0 - 98.0 fL 04/13/2024 3:32 PM [facility] MCH 29.1 26.7 - 33.6 pg 04/13/2024 3:32 PM [facility] MCHC 31.0(L) 31.7 - 36.3 g/dL 04/13/2024 3:32 PM [facility] RDW-CV 13.2 11.3 - 14.8 % 04/13/2024 3:32 PM [facility] Platelet Count 253 150 - 420 x10E9/L 04/13/2024 3:32 PM [facility] MPV 10.2 7.8 - 11.4 fL 04/13/2024 3:32 PM [facility] Neutrophil % 79.0(H) 41.0 - 74.0 % 04/13/2024 3:32 PM [facility] Lymphocyte % 10.8(L) 17.0 - 47.0 % 04/13/2024 3:32 PM [facility] Monocyte % 7.3 3.0 - 11.0 % 04/13/2024 3:32 PM [facility] Eosinophil % 1.5 0.0 - 7.0 % 04/13/2024 3:32 PM [facility] Basophil % 0.3 0.0 - 1.6 % 04/13/2024 3:32 PM [facility] Immature Granulocytes % 1.1(H) 0.0 - 1.0 % 04/13/2024 3:32 PM [facility] Neutrophil Absolute 9.32(H) 1.60 - 7.50 x10E9/L 04/13/2024 3:32 PM [facility] Lymphocyte Absolute 1.27 1.00 - 4.40 x10E9/L 04/13/2024 3:32 PM [facility] Monocyte Absolute 0.86 0.15 - 1.00 x10E9/L 04/13/2024 3:32 PM [facility] Eosinophil Absolute 0.18 0.00 - 0.60 x10E9/L 04/13/2024 3:32 PM [facility] Basophil Absolute 0.04 0.00 - 0.13 x10E9/L 04/13/2024 3:32 PM [facility] Blood BLOOD SPECIMEN / Unknown 04/13/2024 3:21 PM STOCK PREPARER 04/13/2024 3:25 PM STOCK PREPARER [facility] - HEMATOLOGY ORD ERABLES [facility] [address] [place] [address] * (ABNORMAL) COMPREHENSIVE METABOLIC PANEL (04/13/2024 3:21 PM STOCK PREPARER) Glucose 193(H) 70 - 99 mg/dL 04/13/2024 3:48 PM [facility] Sodium 140 136 - 145 mmol/L 04/13/2024 3:48 PM [facility] Potassium 3.4(L) 3.5 - 5.1 mmol/L 04/13/2024 3:48 PM [facility] Chloride 104 98 - 107 mmol/L 04/13/2024 3:48 PM [facility] CO2 26 22 - 29 mmol/L 04/13/2024 3:48 PM [facility] Calcium 9.6 8.4 - 10.4 mg/dL 04/13/2024 3:48 PM [facility] Anion Gap 10 6 - 16 mmol/L 04/13/2024 3:48 PM [facility] BUN 21 7 - 26 mg/dL 04/13/2024 3:48 PM [facility] Creatinine 1.51(H) 0.72 - 1.25 mg/dL 04/13/2024 3:48 PM [facility] Alkaline Phosphatase 109 40 - 150 U/L 04/13/2024 3:48 PM [facility] ALT 14 0 - 55 U/L 04/13/2024 3:48 PM [facility] AST 13 5 - 34 U/L 04/13/2024 3:48 PM [facility] Protein Total 6.9 6.4 - 8.3 gm/dL 04/13/2024 3:48 PM [facility] Albumin 3.4 3.4 - 5.0 gm/dL 04/13/2024 3:48 PM STOCK PREPARER [facility] Bilirubin Total 0.3 0.2 - 1.2 mg/dL 04/13/2024 3:48 PM STOCK PREPARER [facility] eGFR by CKD-EPI 49(L) >=90 mL/min/1.7 3 m2 04/13/2024 3:48 PM STOCK PREPARER [facility] Blood BLOOD SPECIMEN / Unknown Venipuncture / Unknown 04/13/2024 3:21 PM STOCK PREPARER 04/13/2024 3:25 PM STOCK PREPARER [facility] - CHEMISTRY LINDABert WHEELER Performing Organization Address [facility]/ZIP Co de Phone Number [facility] [address] [place] [address] * (ABNORMAL) LIPID PROFILE (04/13/2024 3:21 PM STOCK PREPARER) Cholesterol 173 <200 mg/dL 04/13/2024 3:48 PM STOCK PREPARER [facility] Triglycerides 179(H) <150 mg/dL 04/13/2024 3:48 PM STOCK PREPARER [facility] HDL Cholesterol 26(L) >40 mg/dL 4 3:48 PM STOCK PREPARER [facility] LDL Calculated 111 <130 mg/dL 04/13/2024 3:48 PM STOCK PREPARER [facility] VLDL Calculated 36(H) <=30 mg/dL 4 3:48 PM STOCK PREPARER [facility] Chol HDL Ratio 6.7(H) <4.5 04/13/2024 3:48 PM STOCK PREPARER [facility] LDL/HDL Ratio 4.3 <5.0 04/13/2024 3:48 PM STOCK PREPARER [facility] Blood BLOOD SPECIMEN / Unknown Venipuncture / Unknown 04/13/2024 3:21 PM STOCK PREPARER 04/13/2024 3:25 PM STOCK PREPARER [facility] - CHEMISTRY ORDBert WHEELER Performing Organization Address City/[facility]/ZIP Co de Phone Number [facility] [address] [place] [address] * AZ DESTRUCT BENIGN LESION, 1-14 (05/30/2018 1:01 PM STOCK PREPARER) Narrative Rand Tsang MD - 05/30/2018 1:01 PM STOCK PREPARER Karthikeyan Ontiveros MD ? 05/30/2018 12:47 PM Diagnosis and treatment options discussed. Cryotherapy (Liquid Nitrogen) to 2 lesions for 10-12 seconds each. Number of cycles: 2. Wound care reviewed. - Abdomen x 2 Karthikeyan Ontiveros MD Dermatology Resident, PGY-4 Karthikeyan Ontiveros MD PROCEDURE/MINOR SURG ICAL ORDERABLES * AZ DESTROY PREMALIG LESION, 1ST LESION (09/27/2017 12:12 PM CDT) Narrative Rand Tsang MD - 09/27/2017 12:12 PM CDT Nikhil Ames MD ? 09/20/2017 11:32 AM Diagnosis and treatment options discussed. Cryotherapy (Liquid Nitrogen) to 1 AK x 6-7 seconds each. Number of cycles: 1. Wound care reviewed. Rand Tsang MD PROCEDURE/MINOR NIETO RGICAL ORDERABLES Care Teams Health Promotion Specialist Relationship Specialty Start Date End Date Carlos Moran MD PCP - General Internal Medicine 04/24/17
--- OUTSIDE RECORDS SUMMARY | 2024-05-28 13:09 | XMS_ITS | Encounter Summary ---
Author Organization [facility] Health Address [address] [place] [address] Care Team Providers Care Circulation Director Name Role Phone Carlos Moran MD Primary Care Provider [phone] Encounter Details Date Type Department Care Team (Late st Contact Info) Description 04/13/2024 Lab Requisition [facility] [address] [place] [address] [place] [address] Social History Tobacco Use Types Packs/Day Years [...] on file documented as of this encounter Procedures Procedure Name Priority Date/Time Associated Diagnosis Comments TSH REFLEX FREE T4 STAT 04/13/2024 3: 21 PM SOAP INSPECTOR HEMOGLOBIN A1C STAT 04/13/2024 3:21 PM SOAP INSPECTOR CBC W AUTO DIFFERENTIAL STAT 04/13/2024 3:21 PM SOAP INSPECTOR COMPREHENSIVE METABOLIC PANEL STAT 04/13/2024 3:21 PM SOAP INSPECTOR LIPID PROFILE STAT 04/13/2024 3:21 PM SOAP INSPECTOR documented in this encounter Results * (ABNORMAL) HEMOGLOBIN A1C (04/13/2024 3:21 PM SOAP INSPECTOR) Pathologist [facility] Hemoglobin A1c 7.3(H) <5.7 % 04/13/2024 3:47 PM SOAP INSPECTOR [facility] Estimated Average Glucose 163 mg/dL 04/13/2024 3:47 PM [facility] Blood BLOOD SPECIMEN / Unknown 04/13/2024 3:21 PM SOAP INSPECTOR 04/13/2024 3:25 PM SOAP INSPECTOR [facility] - 04/13/2024 3:47 PM SOAP INSPECTOR HbA1c Interpretation: Normal: < 5.7% Pre-diabetes: 5.7-6.4% [...] Maged [facility]cd[facility] LAB - CHEMISTRY ALFREDO WHEELER [facility] [address] [place] [address] * (ABNORMAL) LIPID PROFILE (04/13/2024 3:21 PM SOAP INSPECTOR) [facility] Cholesterol 173 <200 mg/dL 04/13/2024 3:48 PM [facility] Triglycerides 179(H) <150 mg/dL 04/13/2024 3:48 PM SOAP INSPECTOR [facility] HDL Cholesterol 26(L) >40 mg/dL 3:48 PM SOAP INSPECTOR [facility] LDL Calculated 111 <130 mg/dL 04/13/2024 3:48 PM SOAP INSPECTOR [facility] VLDL Calculated 36(H) <=30 mg/dL 3:48 PM SOAP INSPECTOR [facility] Chol HDL Ratio 6.7(H) <4.5 04/13/2024 3:48 PM SOAP INSPECTOR [facility] LDL/HDL Ratio 4.3 <5.0 04/13/2024 3:48 PM SOAP INSPECTOR [facility] Blood BLOOD SPECIMEN / Unknown Venipuncture / Unknown 04/13/2024 3:21 PM SOAP INSPECTOR 04/13/2024 3:25 PM SOAP INSPECTOR [facility] - CHEMISTRY ORDE LIAM Performing Organization Address [facility]/ZIP Co de Phone Number [facility] [address] [place] [address] * TSH REFLEX FREE T4 (04/13/2024 3:21 PM SOAP INSPECTOR) TSH 3.335 0.350 - 4.940 uIU/mL 04/13/2024 4:06 PM SOAP INSPECTOR [facility] Blood BLOOD SPECIMEN / Unknown Venipuncture / Unknown 04/13/2024 3:21 PM SOAP INSPECTOR 04/13/2024 3:25 PM SOAP INSPECTOR [facility] - CHEMISTRY ORDE LIAM Performing Organization Address [facility]/ZIP Co de Phone Number [facility] [address] [place] [address] * (ABNORMAL) COMPREHENSIVE METABOLIC PANEL (04/13/2024 3:21 PM SOAP INSPECTOR) Glucose 193(H) 70 - 99 mg/dL 04/13/2024 3:48 PM SOAP INSPECTOR [facility] Sodium 140 136 - 145 mmol/L 04/13/2024 3:48 PM SOAP INSPECTOR [facility] Potassium 3.4(L) 3.5 - 5.1 mmol/L 04/13/2024 3:48 PM SOAP INSPECTOR [facility] Chloride 104 98 - 107 mmol/L 04/13/2024 3:48 PM SOAP INSPECTOR [facility] CO2 26 22 - 29 mmol/L 04/13/2024 3:48 PM [facility] Calcium 9.6 8.4 - 10.4 mg/dL 04/13/2024 3:48 PM [facility] Anion Gap 10 6 - 16 mmol/L 04/13/2024 3:48 PM SOAP INSPECTOR [facility] BUN 21 7 - 26 mg/dL 04/13/2024 3:48 PM [facility] Creatinine 1.51(H) 0.72 - 1.25 mg/dL 04/13/2024 3:48 PM [facility] Alkaline Phosphatase 109 40 - 150 U/L 04/13/2024 3:48 PM [facility] ALT 14 0 - 55 U/L 04/13/2024 3:48 PM [facility] AST 13 5 - 34 U/L 04/13/2024 3:48 PM [facility] Protein Total 6.9 6.4 - 8.3 gm/dL 04/13/2024 3:48 PM [facility] Albumin 3.4 3.4 - 5.0 gm/dL 04/13/2024 3:48 PM [facility] Bilirubin Total 0.3 0.2 - 1.2 mg/dL 04/13/2024 3:48 PM [facility] eGFR by CKD-EPI 49(L) >=90 mL/min/1.7 3 m2 04/13/2024 3:48 PM [facility] Blood BLOOD SPECIMEN / Unknown Venipuncture / Unknown 04/13/2024 3:21 PM SOAP INSPECTOR 04/13/2024 3:25 PM [facility] Maged [facility]cd[facility] LAB - CHEMISTRY LINDAE LIAM [facility] [address] [place] [address] * (ABNORMAL) CBC WITH DIFFERENTIAL (04/13/2024 3:21 PM SOAP INSPECTOR) WBC 11.8(H) 4.0 - 10.7 x10E9/L 04/13/2024 3:32 PM SOAP INSPECTOR [facility] RBC Count 4.77 4.30 - 5.80 x10E12/L 04/13/2024 3:32 PM [facility] Hemoglobin 13.9 13.3 - 17.5 g/dL 04/13/2024 3:32 PM [facility] Hematocrit 44.8 38.7 - 51.1 % 04/13/2024 3:32 PM [facility] MCV 93.9 80.0 - 98.0 fL 04/13/2024 3:32 PM [facility] MCH 29.1 26.7 - 33.6 pg 04/13/2024 3:32 PM [facility] MCHC 31.0(L) 31.7 - 36.3 g/dL 04/13/2024 3:32 PM [facility] RDW-CV 13.2 11.3 - 14.8 % 04/13/2024 3:32 PM [facility] Platelet Count 253 150 - 420 x10E9/L 04/13/2024 3:32 PM [facility] MPV 10.2 7.8 - 11.4 fL 04/13/2024 3:32 PM [facility] Neutrophil % 79.0(H) 41.0 - 74.0 % 04/13/2024 3:32 PM [facility] Lymphocyte % 10.8(L) 17.0 - 47.0 % 04/13/2024 3:32 PM [facility] Monocyte % 7.3 3.0 - 11.0 % 04/13/2024 3:32 PM [facility] Eosinophil % 1.5 0.0 - 7.0 % 04/13/2024 3:32 PM [facility] Basophil % 0.3 0.0 - 1.6 % 04/13/2024 3:32 PM [facility] Immature Granulocytes % 1.1(H) 0.0 - 1.0 % 04/13/2024 3:32 PM [facility] Neutrophil Absolute 9.32(H) 1.60 - 7.50 x10E9/L 04/13/2024 3:32 PM [facility] Lymphocyte Absolute 1.27 1.00 - 4.40 x10E9/L 04/13/2024 3:32 PM [facility] Monocyte Absolute 0.86 0.15 - 1.00 x10E9/L 04/13/2024 3:32 PM SOAP INSPECTOR [facility] Eosinophil Absolute 0.18 0.00 - 0.60 x10E9/L 04/13/2024 3:32 PM SOAP INSPECTOR [facility] Basophil Absolute 0.04 0.00 - 0.13 x10E9/L 04/13/2024 3:32 PM SOAP INSPECTOR [facility] Blood BLOOD SPECIMEN / Unknown 04/13/2024 3:21 PM SOAP INSPECTOR 04/13/2024 3:25 PM SOAP INSPECTOR [facility] LAB - HEMATOLOGY ORD ERABLES [facility] [address] [place], [place] [id number] documented in this encounter Visit Diagnoses Not on filedocumented in this encounter Care Teams Circulation Director Relationship Specialty Start Date End Date Carlos Moran MD PCP - General Internal Medicine 04/24/17 documented as of this encounter
--- OUTSIDE RECORDS SUMMARY | 2024-05-28 13:09 | XMS_ITS | Encounter Summary ---
Author Organization [facility] Healthcare Address [address] [place] [address] Care Team Providers Care Bindery Cutter Operator Name Role Phone Nicolas Jung MD Unavailable [phone] Louie Lomeli MD Unavailable [phone] Melchor Woodard MD Primary Care Provider [phone] Jairo Sparrow MD Unavailable [phone] Maria Eugenia Navarrete [facility] Unavailable [phone] Encounter Details Date Type Department Care Team (Late st Contact Info) Description 01/24/2023 Orders Only [facility] [address] [address] [address] [place] [address] Miah Rodrigues MA Pre-op testing (Primary Dx) Social History Tobacco Use Types Packs/Day Years [...] friends, or neighbors? Three times a week 12/24/2021 How often do you get togethe r with friends or relatives? Three times a week 12/24/2021 How often do you attend [facility] or mandaen services? Never 12/24/2021 Do you belong to any clubs o r organizations such as mu-ism groups, unions, fraternal or athletic groups, or school groups? No 12/24/2021 How often do you attend meet ings of the clubs or organizations you belong to? Never 12/24/2021 Are you , , di vorced, , never , or living with a partner? 12/24/2021 AUDIT-C Answer Date Recorded Q1: How often do you have a drink containing alcohol? Never 01/24/2023 Q2: How many drinks containi ng alcohol do you have on a typical day when you are drinking? Patient does not drink Q3: How often do you have si x or more drinks on one occasion? Never 01/24/2023 Overall Financial Resource Strain (CARDIA) Answe r Date Recorded How hard is it for you to pa y for the very basics like food, housing, medical care, and heating? Somewhat hard 12/24/2021 PHQ-2 Answer Date Recorded PHQ-2 Total Score [...] the money to buy more. Never true 12/25/19 22 Within the past 12 months, t he food you bought just didn't last and you didn't have money to get more. Never true 12/24/2021 PRAPARE - Transportation Answer Date Re corded In the past 12 months, has l ack of transportation kept you from medical appointments or from getting medications? No 12/01 In the past 12 months, has l ack of transportation kept you from meetings, work, or from getting things needed for daily living? No 12/24/2021 Housing Stability Vital Sign Answer Víctor e Recorded In the last 12 months, was t here a time when you were not able to pay the mortgage or rent on time? No 12/24/2021 In the last 12 months, how many places have you lived? 1 12/24/2021 In the last 12 months, was t here a time when you did not have a steady place to sleep or slept in a assisted (including now)? 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 Gender Identity Not on file Sexual Orientation Not on file documented as of this encounter Plan of Treatment Not on file documented as of this encounter Visit Diagnoses Diagnosis Pre-op testing- Primary Unspecified pre-operative examination documented in this encounter Additional Health Concerns Infection [...] documented as of this encounter Care Teams Bindery Cutter Operator Relationship Specialty Start Date End Date Melchor Woodard MD PCP - General Family Practice 07/30/22 Nicolas Jung MD Surgeon Orthopedic Surgery 08/05/21 Louie Lomeli MD Consulting Physician Cardiology 12/23/21 Jairo Sparrow MD [address] [place] [address] [address] [place] [address] Consulting Physician Neurology 12/14/22 Maria Eugenia Navarrete, [address] [place] [address] Pharmacist Pharmacy 03/12/24 03/12/24 documented as of this encounter
--- OUTSIDE RECORDS SUMMARY | 2024-05-28 13:09 | XMS_ITS | Clinical Summary ---
Author Organization [facility] Address [address] [place] [address] Phone Care Team Providers Care Kennel Technician Name Role Phone Mark De Los Santos MD Unavailable Unavailable Rand Tsang MD Unavailable [phone] Sohail Gould MD Primary Care Provider [phone] Allergies Active Allergy Reactions Criticality Noted Date Comments Ceftriaxone Unknown 12/29/2022 Statins Other (see Comments) 01/26/2018 Generalized pain Medications amLODIPine (NORVASC) 10 MG Tablet TAKE 1 TAB BY MOUTH DAILY. 90 Tab 1 0 Active metFORMIN (GLUCOPHAGE) 500 MG TabletIndications:Ty pe 2 diabetes mellitus with 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, without long-term current use of insulin (HCC) Take 1 Tab by mouth 2 times daily (with meals). 60 Tab 0 Active furosemide (LASIX) 40 MG TabletIndications:Ed solis leg Take 1 Tablet by mouth daily. 90 Tablet 3 1 Active Active Problems Problem Noted Date Diagnosed Date Polyneuropathy associated with underlying diseas e 10/24/2019 '[id number]' infant with signs of mal nutrition 02/02/2019 Pulmonary hypertension 05/02/2017 Overview (01/24/2018): 44mm Hg Rash 02/10/2017 Benign prostatic hyperplasia with urinary freque ncy 12/19/2015 Hypertension, essential Arthritis DM2 (diabetes mellitus, type 2) Hyperlipidemia Immunizations Immunization Administration Dates Next Due Covid-19, Mrna, Lnp-s, PF, 1 00 mcg/0.5 mL Dose (Moderna) 07/08/2020,06/10/2020 Influenza Vaccine greater than 3 yrs 03/19/2020, 02/10/2017 02/10/2018 Influenza Vaccine, Quadrivalent, PF 02/02/2019,0 01/16/2018 PUR FLU 3+ YRS PRES FREE QUAD IM 03/12/2016 PUR PCV-13 03/12/2016 PUR TDAP 7+ YRS IM 12/11/2015 Pneumococcal Vaccine Adult - 23 Valent 8 TDAP Vaccine 02/13/2020 Tetanus Toxoid, Unspecified Formulation 05/02/19 07 Zoster Vaccine Recombinant 03/19/2020,06/09/2018 ,03/27/2018 Family History Medical History Relation Name Comments No Known Problems Brother Diabetes Father Heart Disease Father No Known Problems Maternal Grandfather No Known Problems Maternal Grandmother Hypertension Mother No Known Problems Other No Known Problems Paternal Grandfather No Known Problems Paternal Grandmother Cancer Sister Breast Relation Name Status Comments Brother Alive Father Maternal Grandfather Maternal Grandmother Mother Other Paternal Grandfather Paternal Grandmother Sister Alive Social History Tobacco Use Types Packs/Day Years Used Date Smoking Tobacco: Former Cigarettes 1 26 05 [id number] Smokeless Tobacco: Never Tobacco Cessation:Counseling Given: No Alcohol Use Standard Drinks/Week Comments No 0 [...] Sign Reading Time Taken Comments Blood Pressure 150/86 08/06/2020 8:25 AM CDT Pulse 80 08/06/2020 8:25 AM CDT Temperature 36 ??C (96.8 ??F) 08/06/2020 8:25 AM CDT Respiratory Rate 20 04/22/2020 9:49 AM [facility] Oxygen Saturation 97% 08/06/2020 8:25 AM CDT Inhaled Oxygen Concentration - - Weight 121.3 kg (267 lb 6.4 oz) 08/06/2020 8:25 AM CDT Height 177.8 cm (5' 10 ) 08/06/2020 8:25 AM CDT Body Mass Index 38.37 08/06/2020 8:25 AM CDT Plan of Treatment Health Maintenance Due Date Last Done Comments Diabetes: Foot Exam 1952 Hepatitis C Virus (HCV) Screening 1950 Colonoscopy 1997 Colorectal Cancer Screening 1997 Cologuard 2002 Immunochemical Fecal Occult Blood 2002 Diabetes: Nephropathy Screening 04/23/2020 04/23/2019, 01/08/2019, 01/04/2019, Additional history exists Diabetes: Hemoglobin A1c 12/09/2023 024, 09/24/2020, 05/05/2020, Additional history exists Influenza Immunization (#1) 01/01/202401/30, 02/10/2021, 03/19/2020, Additional history exists SARS-COV-2 Immunization ( season) 2024 02/17/2022, 09/23/2021, 03/25/2021, Additional history exists Diabetes: Eye Exam 03/29/2024 03/29/2023 Respiratory Syncytial Virus (RSV) Immunization (Adult) (1 - 1-dose 75+ series) 2027 Td Immunization Every 10 Years (Adults With 1 Tdap) 02/12/2030 02/13/2020, 12/11/2015 Pneumococcal Immunization (50+ years) Completed 09/27/2017, 03/12/2016 Pneumococcal Immunization Combined Discontinued 09/27/2017, 03/12/2016 PSA Discussion Discontinued 02/19/2019, 01/01, 12/07/2016, Additional history exists Zoster Immunization Completed 03/19/2020, 06/09/2018, 03/27/2018 Hepatitis B Immunization Aged Out No longer eligible based on patient's age to complete this topic Meningococcal Immunization (ACWY) Aged Out No longer eligible based on patient's age to complete this topic Rotavirus Immunization Aged Out No lo nger eligible based on patient's age to complete this topic Procedures Procedure Name Priority Date/Time Associated Diagnosis Comments HEMOGLOBIN A1C W/ ESTIMATED GLUCOSE Routine 10/24/2019 10:30 AM CDT Type 2 diabetes mellitus without complication, without long-term current use of insulin (HCC) CMP (COMPREHENSIVE METABOLIC PANEL) Today 04/23/2019 10:44 AM [facility] Pulmonary hypertension (HCC) Hypertension, essential Type 2 diabetes mellitus without complication, without long-term current use of insulin (HCC) PSA DIAGNOSTIC,TOTAL Routine 02/19/2019 10:38 AM CDT BPH with obstruction/lower urinary tract symptoms Urgency of urination Abnormal prostate biopsy from Last 3 Months or Most Recently Relevant to Health Maintenance Results * (ABNORMAL) HEMOGLOBIN A1C W/ ESTIMATED GLUCOSE (10/24/2019 10:30 AM CDT) HGB-A1C 7.5(H) 4.0 - 6.0 % 10/24/2019 12:53 PM CDT [facility] Est Average Glucose 168.6 mg/dL 10/24/2019 12:[address] [facility] Blood Venipuncture / Unknown 10/24/2019 10:30 AM CDT 10/24/2019 10:[address] [facility] - 10/24/2019 12:53 PM CDT HEMOGLOBIN A1C: DIABETIC PATIENTS: WELL-CONTROLLED: ?? 6.2 - 7.0 INTERMEDIATE WELL-CONTROLLED: ??7.0 - 9.0 POORLY-CONTROLLED: ??>9.0 us Carlos Moran MD CHEMISTRY ORDERABLES Hloly leigh Result [facility] [address] [place] [address] * (ABNORMAL) CMP (COMPREHENSIVE METABOLIC PANEL) (04/23/2019 10:44 AM [facility]) SODIUM 141 136 - 144 mmol/L 04/23/2019 12:52 PM [facility] POTASSIUM 3.4(L) 3.5 - 5.1 mmol/L 04/23/2019 12:52 PM [facility] [facility] CHLORIDE 102 100 - 110 mmol/L 04/23/2019 12:52 PM [facility] CO2, VENOUS 26 22 - 32 mmol/L 04/23/2019 12:52 PM [facility] ANION GAP 16.4 8.0 - 20.0 mmol/L 04/23/2019 12:52 PM [facility] GLUCOSE 128(H) 70 - 99 mg/dL 04/23/2019 12:52 PM [facility] BUN 14 8 - 23 mg/dL 04/23/2019 12:52 PM [facility] CREATININE, BLOOD 1.01 0.80 - 1.30 mg/dL 04/23/2019 12:52 PM [facility] BUN/CREATININE RATIO 14 12 - 20 ratio 04/23/2019 12:52 PM [facility] TOTAL PROTEIN 7.4 6.0 - 8.3 g/dL 04/23/2019 12:52 PM [facility] ALBUMIN 3.9 3.5 - 5.2 g/dL 04/23/2019 12:52 PM [facility] Comment: The colormetric methods used for the determination of Albumin may lead to falsely elevated test results in patients suffering from renal failure or insufficiency due to interference with other proteins. A/G RATIO 1.1 1.0 - 2.0 04/23/2019 12:52 PM [facility] CALCIUM 8.9 8.9 - 10.3 mg/dL 04/23/2019 12:52 PM [facility] T BILI 0.3 <=1.2 mg/dL 04/23/2019 12:52 PM [facility] SGOT (AST) 16 <=40 U/L 04/23/2019 12:52 PM [facility] SGPT (ALT) 19 <=41 U/L 04/23/2019 12:52 PM [facility] ALKALINE PHOSPHATASE 102 40 - 130 U/L 04/23/2019 12:52 PM [facility] GFR, EST. NONAFRICAN >60 >=60 04/23/2019 12:52 PM [facility] GFR, EST. >60 >=60 019 12:52 PM [facility] Comment: Creatinine Clearance is the preferred criteria for selecting drug dose adjustments in renally impaired patients. ??The GFR is provided as additional pertinent clinical information. GFR is reported in mL/min/1.73 sq m. Blood specimen (specimen) Venipuncture / Unknown 04/23/2019 10:44 AM [facility] 04/23/2019 10:44 AM [facility] Carlos Moran MD CHEMISTRY ORDERABLES Holly l Result [facility] [address] [place] [address] * (ABNORMAL) PSA DIAGNOSTIC,TOTAL (02/19/2019 10:38 AM CDT) PSA, TOTAL (PROSTATIC SPECIFIC ANTIGEN) 6.36(H) <=4.00 ng/mL 02/19/2019 1:24 PM CDT [facility] Blood specimen (specimen) Venipuncture / Unknown 02/19/2019 10:38 AM CDT 02/19/2019 12:[address] [facility] - 02/19/2019 1:24 PM CDT PSA NOTE: The PSA value should be used in conjunction with information available from clinical evaluation and other diagnostic procedures. Michelet Moran MD CHEMISTRY ORDERABLES Final Result [facility] [address] [place] [address] from Last 3 Months or Most Recently Relevant to Health Maintenance Insurance MEDICAID [place] MEDICARE C [facility] [place] [address] Care Teams Kennel Technician Relationship Specialty Start Date End Date Sohail Gould MD [address] [place] [place] [address] PCP - General Family Medicine 08/20/21 Mark De Los Santos MD Consulting Physician Urology 09/05/15 Rand Tsang MD Consulting Physician Dermatopathology 01/16/18
--- OUTSIDE RECORDS SUMMARY | 2024-05-28 13:09 | XMS_ITS | Encounter Summary ---
Author Organization [facility] Healthcare Address [address] [place] [address] Care Team Providers Care Vascular Surgeon Name Role Phone Nicolas Jung MD Unavailable Louie Lomeli MD Unavailable [phone] Melchor Woodard MD Primary Care Provider [phone] Jairo Sparrow MD Unavailable [phone] Maria Eugenia Navarrete [facility] Unavailable [phone] Encounter Details Date Type Department Care Team (Late st Contact Info) Description 06/02/2023 Telephone [facility] [address] [place] [address] Jonathan Miranda MD [address] [place], [place] [id number] Social History Tobacco Use Types Packs/Day Years [...] week 02/04/2023 How often do you attend chur or orthodox services? Never 02/04/2023 Do you belong to any clubs o r organizations such as bahai groups, unions, fraternal or athletic groups, or [...] place to sleep or slept in a mcfp (including now)? Yes 02/04/2023 Personal Safety Answer Date Recorded Have you ever been in or are you currently in a harmful physical or emotional relationship or is someone making you feel afraid or unsafe? Denies 03/09/2023 Sex and Gender Information Value Date Recorded Sex Assigned at Not on file Legal Sex Male 12:23 AM [employer] Gender Identity Not on file Sexual Orientation [...] documented as of this encounter Care Teams Vascular Surgeon Relationship Specialty Start Date End Date Melchor Woodard MD PCP - General Family Practice 07/30/22 Nicolas Jung MD Surgeon Orthopedic Surgery 08/05/21 Louie Lomeli MD Consulting Physician Cardiology 12/23/21 Jairo Sparrow MD [address] [place] [address] [place] [address] Consulting Physician Neurology 12/14/22 Maria Eugenia Navarrete, [address] [place] [address] Pharmacist Pharmacy 03/12/24 03/12/24 documented as of this encounter
--- OUTSIDE RECORDS SUMMARY | 2024-05-28 13:09 | XMS_ITS | Referral Summary ---
Author Organization [facility] Address [address] [place] [address] Care Team Providers Care Inset Cutter Name Role Phone Nicolas Jung MD Unavailable [phone] Louie Lomeli MD Unavailable [phone] Melchor Woodard MD Primary Care Provider [phone] Tania Sparrow MD Unavailable [phone] Encounters Date Type Department Care Team Description 05/01/2024 3:00 PM PROTECTION SPECIALIST Office Visit [facility] Orthopedics [facility] Sports Medicine [address] [place] [address] [address] [address] Karen Christopher NP Primary osteoarthritis of left knee (Primary Dx); Left foot pain 04/04/2024 5:47 PM PROTECTION SPECIALIST - 04/10/2024 4:13 PM PROTECTION SPECIALIST Hospital Encounter [facility] IMU [address] [place] [address] Nikolas Doty MD Bross, Deborah L F D, MD Kim, Eileen H., MD Nikolic, Jelena, MD Nocturnal hypoxia (Primary Dx); Chest pain due to myocardial ischemia, unspecified ischemic chest pain type; Nocturnal oxygen desaturation Discharge Disposition: Discharge to an Rehab facility 04/05/2024 Orders Only [facility] Cardiology [address] [place] [address] Cristy Otoole 04/02/2024 Telephone [facility] Medical [facility] Orthopedics and Sports Medicine [address] [facility] [address] [place] [address] Mariangel Mallory MA 03/12/2024 ACO Quality [address] [address] Amira Hensley MA 03/12/2024 ACO Clinical Pharmacist [address] [address] Maria Eugenia Navarrete RPh 03/01/2024 Orders Only [facility] Orthopedics and Sports Medicine [address] [place] [address] [address] [place] [address] Karen Christopher NP Left foot pain (Primary Dx) 03/01/2024 1:03 PM CDT - 03/01/2024 11:59 PM CDT Hospital Encounter [facility] Orthopedics and Sports Medicine [address] [place] [address] [address] [address] Discharge Disposition: Discharge to home or self care 03/01/2024 1:00 PM CDT Office Visit [facility] Orthopedics and Sports Medicine [address] [place] [address] [address] [place] [address] Karen Christopher NP Primary osteoarthritis of left knee (Primary Dx) 02/28/2024 2:38 PM CDT - 02/28/2024 3:46 PM CDT Emergency [facility] Emergency Department [address] [place] [address] Acute pain of left knee (Primary Dx) Discharge Disposition: Discharge to home or self care 02/27/2024 Telephone [facility] Orthopedics and Sports Medicine [address] [place] [address] [address] [place] [address] Antonina Sheehan MA from Last 3 Months Allergies Active Allergy Reactions Criticality Noted Date Comments Ceftriaxone Nausea only Low 09/23/2021 Vaajuav-Yfe-Bhe Reductase Inhibitors Other (See comments) Low 01/26/2018 Generalized pain Medications losartan (COZAAR) 25 mg tablet Take 1 tablet (25 mg total) by mouth daily 3 Active metoprolol XL (TOPROL-XL) 50 mg extended release tablet Take 1 tablet (50 mg total) by mouth daily 30 tablet 3 3 Active ezetimibe (ZETIA) 10 mg tabletIndication s:hyperlipidemia TAKE 1 TABLET (10 MG TOTAL) BY MOUTH DAILY 30 tablet 11 3 Active levothyroxine (SYNTHROID) 50 mcg tablet Take 1 tablet (50 mcg total) by mouth 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 before breakfast Active hydroCHLOROthiaz jared (HYDRODIURIL) 25 mg tablet Take 2 tablets (50 mg total) by mouth daily Active aspirin 81 mg enteric coated tablet Take 1 tablet (81 mg total) by mouth daily Not sure if he takes 30 tablet 11 4 09/02/19 25 Active gabapentin (NEURONTIN) 100 mg capsuleIndicatio ns:Diabetic Peripheral Neuropathy Take 2 capsules (200 mg total) by mouth 3 (three) times a day 180 capsule 4 Active Additional Information Patient taking differently: 100 mgoral 3 times daily, Indications: Diabetic Peripheral Neuropathy, Reported on 04/04/2024 isosorbide mononitrate ER (IMDUR) 30 mg 24 hr tablet Take 1 tablet (30 mg total) by mouth daily 30 tablet 11 4 09/20/19 25 Active nitroglycerin (NITROSTAT) 0.[address] 1 tablet (0.4 mg total) under the tongue every 5 (five) minutes as needed for chest pain May repeat dose q 5 min, up to 3 doses total 90 tablet 1 4 09/20/19 25 Active amLODIPine (NORVASC) 10 mg tablet TAKE 1 TABLET (10 MG TOTAL) BY MOUTH DAILY 90 tablet 3 4 11/04/19 25 Active meclizine (ANTIVERT) 12.5 mg tablet Take 1 tablet (12.5 mg total) by mouth 3 (three) times a day as needed for dizziness 30 tablet 4 Active methocarbamoL (ROBAXIN) 500 mg tablet Take 1 tablet (500 mg total) by mouth 2 (two) times a day 20 tablet 4 Active clopidogreL (PLAVIX) 75 mg tablet Take 1 tablet (75 mg total) by mouth daily 60 tablet 4 Active diclofenac sodium (VOLTAREN) 1 % gel Apply 2 g topically 4 (four) times a day 30 g 1 4 Active meloxicam (MOBIC) 7.5 mg tablet Take 1 tablet (7.5 mg total) by mouth 2 (two) times a day with meals for 14 days 28 tablet 4 Active Hospital, Clinic, or Other Facility Administered Medication Ordered Dose Route Frequency Start Date End Date Status triamcinolone acetonide extended release (ZILRETTA ER) intra-articular injection 32 mgIndications:Primar y osteoarthritis of left knee 32 mg intra-artic One-Time Injection 05/01/2024 4 Ended lidocaine (XYLOCAINE) 20 mg/mL (2 %) injection 2 mLIndications:Admini stration of Local Anesthesia 2 mL One-Time Injection 05/01/2024 4 Ended Active Problems Problem Noted Date Diagnosed Date Nocturnal hypoxia 04/10/2024 Chest pain due to myocardial ischemia, unspecified ischemic chest pain type 04/04/2024 Statin myopathy 03/12/2024 Overview (03/12/2024): Do not recommend statin re-trial given history of intolerance (myopathy). Provider to consider billing statin myopathy (G72.0) with assessment/plan in note in anticipation of future office visit (and on annual basis) to remove patient from Medicare Part D Statin Gap report. Continue non-statin therapy (e.g., Ezetimibe) to maintain LDL at goal of less than 100 mg/dL. COVID 12/28/2023 Morbid (severe) obesity due to excess calories 0 09/20/2023 Chest pain, unspecified type 08/28/2023 Dizziness and giddiness 07/15/2023 Numbness and tingling of hand 07/15/2023 Primary hypertension 01/26/2023 CVA (cerebrovascular acciden t due to intracerebral hemorrhage) 12/10/2022 Chest pain 10/30/2022 Bradycardia 10/29/2022 Cataracts, bilateral 08/27/2022 Hypersomnia 08/27/2022 Hypertensive emergency 07/13/2022 Allergic conjunctivitis of both eyes 06/01/2022 Assessment & Plan (06/01/2022 3:29 PM PROTECTION SPECIALIST): Worsening, patient reports symptoms are worse 1st thing in the morning, has to clean eyes before can open; fewer symptoms throughout the day; most consistent with allergic conjunctivitis Start azelastine eyedrops Diabetic neuropathy, type II diabetes mellitus ( [facility] 05/27/2022 LALITO (acute kidney injury) 03/10/2022 Obesity (BMI 30-39.9) 03/10/2022 Other chest pain 03/09/2022 Assessment & Plan (06/01/2022 3:28 PM PROTECTION SPECIALIST): Continues to have episodes of chest pain, started in nature; can radiate to right-side of chest Patient reports some relief with ASA; has nitroglycerin Will continue to monitor; if negative cardio workup, consider esophageal spasms of source of pain Assessment & Plan (04/06/2022 11:47 AM PROTECTION SPECIALIST): Reports pressure-like chest pain today, worsening fatigue and low energy EKG performed today; sinus rhythm, possible LVH No acute ST wave elevations Patient to follow-up with cardiology further evaluation Continue Nexlizet is at 180-10 mg daily, Brilinta 90 mg b.i.d. Leg weakness, bilateral 01/10/2022 Assessment & Plan (01/10/2022 9:20 PM CDT): Unclear etiology; patient unable to stand for more than 5 minutes; difficulty with self care and food preparation -numbness in legs -[place] CHARU bilateral LEs; if normal, may get EMG Dysphagia 12/29/2021 Overview (12/29/2021): Added automatically from request for surgery [id number] Leukocytosis 12/19/2021 UTI (urinary tract infection) 12/19/2021 Coronary artery disease 12/18/2021 Overview (12/18/2021): Added automatically from request for surgery [id number] Assessment & Plan (03/07/2022 9:41 AM PROTECTION SPECIALIST): Not well controlled, patient had stopped taking all medications, had elevated blood pressures today Encouraged patient to continue medications as prescribed Continue Brilinta 90 mg b.i.d., Zetia 10 mg daily Hypertensive crisis 12/16/2021 Assessment & Plan (12/17/2021 12:13 PM CDT): Present on admission, received Labetalol iv, currently resolved NSTEMI (non-ST elevated myocardial infarction) ( [facility]) 12/16/2021 Overview (12/17/2021): Added automatically from request for surgery [id number] Assessment & Plan (01/10/2022 9:21 PM CDT): Stable, improving, no further episodes of chest pain -does not tolerate statins, on Zetia -Stents placed -elevated bp today; start hydralzine 25 mg bid Assessment & Plan (12/17/2021 12:17 PM CDT): Typical chest pain, positive troponins, and positive risk factors like age, obesity, HLD, male sex Received ASA 324, nitropaste and therapeutic Lovenox in the ED Cardiology consulted, and pt planned for cardiac cath today. Continue telemetry monitoring. Started on beta mina. Will start ASA 81 from tomorrow. Non-seasonal allergic rhinitis due to pollen 07/2021 Assessment & Plan (01/10/2022 9:22 PM CDT): Not well controlled; discontinued Afrin due to CAD start Astelin 1 spray BID Assessment & Plan (08/03/2021 4:11 PM CDT): Nasal saline spray (Simply saline, Little Remedies, [place], [place]) 2 second sprays or 2 squeezes into each nostril while looking down over the sink, do not need to sniff in. Followed by Astelin (azelastine) 2 sprays into each nostril while looking down over the sink, do not sniff in or blow nose after use for at least 30 minutes twice daily Follow up with Eye Doctor for Cataract Bilateral impacted cerumen 08/03/2021 Assessment & Plan (08/03/2021 4:11 PM CDT): Avoid ear cleaning techniques Avoid water to ears Chronic migraine without aur a without status migrainosus, not intractable 07/16/2021 Gait disturbance 07/16/2021 VENU (obstructive sleep apnea) 02/17/2021 Assessment & Plan (02/17/2021 4:32 PM CDT): Given symptoms, patient likely has VENU; however at this time patient would prefer to wait on sleep study Internal derangement of left knee 11/18/2020 Overview (11/18/2020): Added automatically from request for surgery [id number] Assessment & Plan (03/20/2021 4:30 PM PROTECTION SPECIALIST): Stable, patient waiting on improved A1c for surgical clearance; will continue to monitor, continue with home exercise program, and will discuss case with Orthopedic surgery Assessment & Plan (01/19/2021 12:45 PM CDT): Scheduled for arthroscopy of left knee; has pain in both knees but left is worse, causing worsening bouts Continue to monitor; Acute medial meniscus tear of left knee 11/19/19 Overview (11/18/2020): Added automatically from request for surgery [id number] Scar of vermilion border of upper lip 07/04/2020 Overview (07/04/2020): Referral to plastic surgery for evaluation and possible affects scar tissue Cicatrix 07/04/2020 Tension headache 06/30/2020 Assessment & Plan (06/25/2021 10:33 AM PROTECTION SPECIALIST): Patient has recurrent left-sided tension headaches; likely secondary to pressure on muscles from lipoma Assessment & Plan (06/09/2021 1:59 PM PROTECTION SPECIALIST): Patient has headache for the last 4-6 weeks; unclear if migraine versus tension verses sinus headaches Low concern for migraine headache; though pain is unilateral given no prior history of migraine headaches Patient reports relief with Reglan Gyne ketorolac and Benadryl Encouraged patient to continue medicine regimen to help reduce pain Patient given exercises to help with tension headache; patient has large left- sided lipoma which may be contributing to pressure upon Trapezius and splenius capitis continue treatment for sinus congestion; use Flonase 2 sprays b.i.d. in each nostril Assessment & Plan (06/30/2020 12:31 PM PROTECTION SPECIALIST): Patient has severe left sided headache; reports worsened with looking down or leaning back in bed; may be related to sinuses vs tension type headache -given congestion may consider sinus pressure and will refer to ENT Chronic midline low back pain without sciatica 0 06/30/2020 Assessment & Plan (06/30/2020 12:33 PM PROTECTION SPECIALIST): Not well controlled; likely worsened due to poor core strength; encouraged weight loss to reduce strain on lower back (has severe central adiposity) Will give patient core exercises to strengthen low back and abodmen Lipoma of neck 06/25/2020 Assessment & Plan (06/25/2021 10:32 AM PROTECTION SPECIALIST): Not well controlled, patient has left-sided tension style headaches, S with noted changing position of head due to size of lipoma Patient benefit from surgical removal to help improve overall posture as well as potentially improved tension headaches Assessment & Plan (05/14/2021 1:29 PM PROTECTION SPECIALIST): Patient has large lipoma on back left-sided neck; reports left-sided headaches, which may be contributed by lipoma putting pressure on muscles sugar causing tension headaches Referral to Plastic surgery for removal Assessment & Plan (03/20/2021 4:29 PM PROTECTION SPECIALIST): Stable, Impacts patient ability to turn had; will continue monitor refer to surgery when appropriate Primary osteoarthritis of left knee 05/08/2020 Assessment & Plan (11/17/2021 3:53 PM CDT): Continues to have significant pain, has some symptom improvement, but limited range of motion and pain with movement Recent steroid injection Follow-up with orthopedics Assessment & Plan (04/21/2021 2:52 PM PROTECTION SPECIALIST): Stable, continues with physical therapy which is providing relief Patient will refer to surgery once A1c is below 7.5 Assessment & Plan (11/20/2020 1:21 PM CDT): At this time will hold off meloxicam, patient reports pain is tolerable without any prescription NSAIDs Assessment & Plan (09/24/2020 2:59 PM CDT): Stable, had recent injection Waiting for response to therapy Class 2 severe obesity due t o excess calories with serious comorbidity and body mass index (BMI) of 35.0 to 35.9 in adult 05/05/2020 Assessment & Plan (11/17/2021 3:53 PM CDT): Well controlled, 9 lb weight gain; patient reports decreased activity, stability on knee; concern for falling Patient reports he also has dizziness Will continue to monitor medications, reduce risk orthostatics Follow-up repeat X Continue gabapentin 100 mg daily for possible neuropathy Assessment & Plan (10/13/2021 2:34 PM CDT): Will, improving; patient has been working on weight loss Continue to monitor Assessment & Plan (05/14/2021 1:29 PM PROTECTION SPECIALIST): Improving, patient has walked about 12 lb since last visit; encouraged continued dietary changes, decreasing in take through portion control as well as lowering carbohydrate intake Encourage daily activity of 30 minutes of moderate intensity aerobic exercise daily Assessment & Plan (03/20/2021 4:29 PM PROTECTION SPECIALIST): Weight is stable, no significant change; patient reports decreased appetite on Rybelsus 4 mg, will increase to 7 mg continue to monitor weight Assessment & Plan (09/24/2020 3:01 PM CDT): Patient has difficulty with weight loss, is able to lose a few lb and then regains back Discussed with patient importance of consistency with dietary changes in low- calorie diet Encouraged patient to continue with exercise as tolerated, patient is generally active walking in pool approximately 1 hour per day most days of the week Assessment & Plan (05/05/2020 3:33 PM PROTECTION SPECIALIST): Not well controlled, patient reports weight loss prior, has since regained his weight back Discussed strategies for patient complaining limitation of number calorie intake and per day, and increased activity to 30 minutes 5 times per week patient limited activity due to left knee pain, discussed with patient activities that will not put weight or strain on knee BMI Follow-up includes: nutrition counseling and exercise counseling. Acquired hypothyroidism 05/05/2020 Assessment & Plan (12/17/2021 12:16 PM CDT): Continue daily Synthroid Assessment & Plan (10/13/2021 2:35 PM CDT): Well controlled; TSH at target Continue levothyroxine 50 mcg daily Assessment & Plan (06/25/2021 10:31 AM PROTECTION SPECIALIST): Stable, unclear control, patient reports inconsistent medications use Continue levothyroxine 50 mcg daily, check TSH today Assessment & Plan (04/21/2021 2:52 PM PROTECTION SPECIALIST): Stable, well controlled; continue levothyroxine 50 mcg daily Assessment & Plan (03/20/2021 4:28 PM PROTECTION SPECIALIST): Stable, well controlled; continue levothyroxine 50 mcg daily Assessment & Plan (09/24/2020 3:00 PM CDT): Recheck TSH today as previous TSH was mildly elevated, is still elevated will adjust levothyroxine given patient has complaints of generalized fatigue Assessment & Plan (06/16/2020 9:09 AM PROTECTION SPECIALIST): Will recheck thyroid now that has been on medication for ~6 weeks Assessment & Plan (05/05/2020 3:36 PM PROTECTION SPECIALIST): Mild elevation of TSH, patient has multiple symptoms including inability to lose weight, chronic fatigue and chronic tiredness Will start at low dose levothyroxine 25 mcg, will recheck TSH in approximately 6 weeks Arthritis 03/24/2020 DM2 (diabetes mellitus, type 2) 03/24/2020 Assessment & Plan (06/01/2022 3:30 PM PROTECTION SPECIALIST): Not well controlled, A1c has always been above target; patient reports recently working on decreasing carbohydrate intake Continue monitor, restart metformin if needed Assessment & Plan (12/17/2021 12:14 PM CDT): On Metformin at home, A1C is 6.4 Replaced with sliding scale insulin while admitted Monitor accuchecks Assessment & Plan (11/17/2021 3:48 PM CDT): Stable, well controlled; A1c at target Continue metformin 1000 mg daily with breakfast Assessment & Plan (10/13/2021 2:34 PM CDT): Stable, improving; most recent A1c was 6.9 Continue regular use of metformin 1000 mg daily with breakfast Encouraged continued low-carbohydrate diet Assessment & Plan (08/28/2021 4:41 PM CDT): Stable, somewhat controlled room for improvement; last A1c was 7.5, patient reports he does not regularly check home blood sugars; today A1c decreased to 6.9 Continue metformin 1000 mg daily, encourage low-carbohydrate diet Assessment & Plan (06/25/2021 10:31 AM PROTECTION SPECIALIST): Stable, improving; patient A1c has been down trending to 7.5 last time, recheck A1c today Continue metformin XR 1000 mg daily Assessment & Plan (05/14/2021 1:28 PM PROTECTION SPECIALIST): Stable, improving; last A1c was decreasing to 7.5 Encouraged patient to continue with low-carbohydrate diet; encourage education dietary changes as well as regular exercise Continue metformin 1000 mg daily Assessment & Plan (04/21/2021 2:52 PM PROTECTION SPECIALIST): Stable, improving; patient reports he has been working on decreasing carbohydrates Has a decreased appetite well on Rybelsuswith minimal side effects Continue metformin 1000 mg daily with breakfast, Rybelsus 7 mg prior to breakfast Continue to monitor encourage continued decreased carbohydrate diet Recheck labs at follow-up appointment Assessment & Plan (03/20/2021 4:28 PM PROTECTION SPECIALIST): Stable, well controlled, improving Patient reports improved dietary changes, as well as medication compliance; continue metformin 1000 mg XR daily, increase semaglutide to 7 mg daily Assessment & Plan (02/17/2021 4:31 PM CDT): Not well controlled, patient Restarted metformin Vest mg daily with breakfast Last A1c 8.6 Today will start Rybelsus 3 mg daily Encouraged patient to continue to work on low-carbohydrate diet in order to better control blood sugars in order to reduce A1c to less than 7.5 to be candidate for surgery Assessment & Plan (01/19/2021 12:46 PM CDT): Not well controlled, A1c at 8.0; patient does not check blood sugar at home, is not following low-carbohydrate diet Will continue meds for 1000 mg daily, semaglutide 3 mg daily Assessment & Plan (11/20/2020 1:21 PM CDT): Restart metformin today 500 mg b.i.d. Assessment & Plan (09/24/2020 3:00 PM CDT): Stable, will check A1c today Continue metformin 500 mg b.i.d. Continue to encourage low-carbohydrate diet Assessment & Plan (05/05/2020 3:32 PM PROTECTION SPECIALIST): Not well controlled, A1c is 7.7 today Discussed with patient importance of diet control including limiting number carbohydrates with each meal Patient reports getting for small meals per day, counseled on limiting to 40 g of carbohydrates with each smaller meal Will recheck in 3 months, if still elevated then will increase dose of metformin or triad other therapy Encouraged patient to and exercise, even to limited mobility due to need patient can do chair exercises to improve upper body strength Assessment & Plan (03/26/2020 12:24 PM PROTECTION SPECIALIST): Will check blood sugars and A1c to evaluate for control of diabetes on metformin Hyperlipidemia 03/24/2020 Assessment & Plan (12/17/2021 12:16 PM CDT): Pt is not on a statin due to intolerance LDL is 107. Started on Zetia per cardiology. Assessment & Plan (10/13/2021 2:34 PM CDT): Not well controlled, encouraged continued dietary changes and weight loss Assessment & Plan (05/14/2021 1:28 PM PROTECTION SPECIALIST): Not well controlled, patient cannot tolerate statins; encouraged dietary changes order reduce cholesterol through low-fat high-fiber diet Assessment & Plan (05/05/2020 3:35 PM PROTECTION SPECIALIST): Poorly controlled patient has elevated total and LDL cholesterol with knee depressed HDL cholesterol Triglycerides are also elevated at 254 Patient is unable to tolerate statin therapy due to muscular pain of thigh muscles Will encouraged diet and exercise as ways to maintain and modify cholesterol level Hypertension, essential 03/24/2020 Assessment & Plan (06/01/2022 3:30 PM PROTECTION SPECIALIST): Stable, improving; blood pressure today in clinic was normal; patient reports home measurements are improving Continue amlodipine 10 mg daily, hydralazine 25 mg b.i.d., metoprolol 100 mg daily Losartan was previously on medication list, but not part of pharmacy was Given blood pressures appropriate, will continue to monitor, can rehab losartan if blood pressure increases Assessment & Plan (04/06/2022 11:47 AM PROTECTION SPECIALIST): Stable, improving; most recent blood pressure was at target Continue losartan 100 mg daily, metoprolol 100 mg daily, amlodipine 10 mg daily Assessment & Plan (03/07/2022 9:40 AM PROTECTION SPECIALIST): Not well controlled; patient reports that he discontinued all of his medications due to side effects One 3 patient in detail regarding his medications, would each medications for, potential side effects Continue hydralazine 25 mg b.i.d., amlodipine 10 mg daily, losartan 100 mg daily, metoprolol 100 mg daily Assessment & Plan (01/05/2022 9:38 AM CDT): Elevated today Defers diuretics due to bladder concerns Assessment & Plan (12/17/2021 12:20 PM CDT): Presented with hypertensive urgency, patient was on Lisinopril, HCTZ and amlodipine at home Started on Toprol XL, lisinopril was replaced with losartan, and pt continued on HCTZ and amlodipine. BP is slightly improved, but still high. If it continues to be high, will start hydralazine. Assessment & Plan (10/13/2021 2:33 PM CDT): Stable, well controlled; blood pressure at target today Continue lisinopril 40 mg daily, nifedipine 60 mg daily Assessment & Plan (06/25/2021 10:30 AM PROTECTION SPECIALIST): Not well controlled; blood pressure is elevated this morning prior to surgery, elevated again in office Given blood pressure was just normal on 06/09/2021, will increase lisinopril to 40 mg daily Encouraged patient to consistently take medications, with no missed or skipped doses Assessment & Plan (05/14/2021 1:27 PM PROTECTION SPECIALIST): Not well controlled, blood pressure remains elevated; patient has been inconsistent with taking medications Will continue lisinopril 20 mg, follow-up at next appointment; if blood pressure still is elevated will adjust medication Assessment & Plan (03/20/2021 4:27 PM PROTECTION SPECIALIST): Stable well controlled; blood pressure a target; continue furosemide 40 mg daily; continue to monitor encourage appropriate exercise and dietary control Assessment & Plan (11/20/2020 1:21 PM CDT): Not well controlled, patient has not been taking medications Reviewed all medications as patient brought, will restart valsartan-hydrochlorothiazide Encouraged patient to discontinue all other medications at this time Will recheck blood pressure at next appointment and determine if more medications need to be added Assessment & Plan (09/24/2020 2:59 PM CDT): Given peripheral edema, will discontinue amlodipine today, and start lisinopril for diabetic nephropathy Will continue to monitor blood pressure and adjust dose as needed Assessment & Plan (05/05/2020 3:34 PM PROTECTION SPECIALIST): Well controlled, patient's blood pressure is at target today Will continue with current therapies and continue to monitor patient Assessment & Plan (03/26/2020 12:24 PM PROTECTION SPECIALIST): Stable well controlled, continue present management Post-traumatic osteoarthritis of left knee 03/24 Assessment & Plan (10/13/2021 2:37 PM CDT): Well controlled, patient has worsening left knee pain; had arthroscopy 8 weeks ago, now with throbbing pain, and no relief with elevation and icing Patient completed physical therapy; current pain is impacting quality of life Continue with Orthopedic surgery in order to re-evaluate arthroscopy, as well as worsening pain status post arthroscopy Assessment & Plan (06/16/2020 9:09 AM PROTECTION SPECIALIST): Not well controlled, had relief with cortisone injection, but now has worsening pain; relief last for about 3-4 weeks -has some instability of patella, able to 'adjust' patella to relieve pain and improve ROM Assessment & Plan (05/05/2020 3:34 PM PROTECTION SPECIALIST): Stable, not controlled Patient is not able to consistently place weight on the Patient to follow-up with orthopedics further evaluation, based on recommendations may refer to physical therapy Assessment & Plan (03/26/2020 12:24 PM PROTECTION SPECIALIST): Will start treatment with diclofenac cream, and use of the triamcinolone as necessary If needed will refer to physical therapy for further improvement in pain Polyneuropathy associated with underlying diseas e ([facility] 10/24/2019 Assessment & Plan (04/06/2022 11:44 AM PROTECTION SPECIALIST): Continues to have numbness and weakness in bilateral legs; patient scheduled nerve conduction study Continue gabapentin 100 mg TID Continue with exercise, and strength training; noted to have decreased strength in hip flexors; normal with knee -if EMG is normal, consider CK or evaluation of polymyalgia or polymysitis Assessment & Plan (05/05/2020 3:34 PM PROTECTION SPECIALIST): Patient has episodes of decreased balance due to neuropathy, based on with results may refer to physical therapy to help with balance and treatment of polyneuropathy Pulmonary hypertension 05/02/2017 Overview (03/24/2020): 44mm Hg Benign prostatic hyperplasia with urinary freque ncy 12/19/2015 Assessment & Plan (10/13/2021 2:36 PM CDT): Not well controlled; patient had [employer] laser vaporization of prostate, patient reports multiple complications, including frequent bladder infections Patient currently on amoxicillin for infection Catheter in place due to urinary incontinence Patient to continue to follow-up with urology for management Assessment & Plan (06/25/2021 10:32 AM PROTECTION SPECIALIST): Not well controlled, patient continues to have frequent nighttime urination; encouraged patient to continue follow-up with Urology and reschedule surgery Continue myrbetriq 50 mg daily Assessment & Plan (03/20/2021 4:30 PM PROTECTION SPECIALIST): Patient continues to have increased urinary frequency, including nocturia; on oxybutynin 5 mg daily; continue monitor courage patient to engage with Urology for appropriate treatment Assessment & Plan (09/24/2020 2:59 PM CDT): Not well controlled, no relief with tamsulosin, oxybutynin or Mirabegron. 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 02/03/2023 4 Cerebrovascular accident (CV A), unspecified mechanism 12/08/2022 07/15/2023 Statin intolerance 10/13/2021 4 Immunizations Name Administration Dates Next Due Influenza, Quadrivalent, Hig h Dose, Preservative Free, Intrr 03/18/2020 Influenza, Quadrivalent, Spl it, Preservative Free, Intramuscular 02/02/2019,01/16/2018,03/12/2016 Influenza, Trivalent, IM (MDV) 03/19/2020,2016 Influenza, Unspecified 02/10/2021 Moderna SARS-CoV-2 Monovalen t Vaccination (12+ YRS) 03/25/2021,07/08/2020,06/10/2020 PPD TEST 05/02/2006 Pneumococcal Conjugate PCV 13 03/12/2016 Pneumococcal Polysaccharide PPV23 09/27/2017 Tdap 02/13/2020,12/11/2015 ZOSTER Recombinant 03/19/2020,06/09/2018, 018 Social History Tobacco Use Types Packs/Day Years Used Date Smoking Tobacco: Former Smokeless Tobacco: Never Comments:quit in 1985 Alcohol Use Standard Drinks/Week Comments No 0 (1 standard drink = 0.6 oz pur e alcohol) OASIS D0700: Social Isolation Answer Da te Recorded Frequency of experiencing loneliness or isolatio n Rarely 01/17/2024 OASIS A1250: Transportation Answer Date Recorded Lack of Transportation (Medical) No 01/17/2024 Lack of Transportation (Non-Medical) No 01/17/2024 Patient Unable or Declines to Respond No 01/17/2024 OASIS B1300: Health Literacy Answer Víctor e Recorded Frequency of needing help to read materials from doctor or pharmacy Sometimes 01/17/2024 [facility] Utilities Answer Date Recorded In the past 12 months has e [employer], gas, oil, or water [employer] threatened to shut off services in your home? No 04/05/2024 Social Connection and Isolat ion Panel [NHANES] Answer Date Recorded In a typical week, how many times do you talk on the phone with family, friends, or neighbors? More than three times a week 04/05/2024 How often do you get togethe r with friends or relatives? Once a week 04/05/2024 How often do you attend chur ch or samaritan services? Never 04/05/2024 Do you belong to any clubs o r organizations such as spiritism groups, unions, fraternal or athletic groups, or school groups? No 04/05/2024 How often do you attend meet ings of the clubs or organizations you belong to? Never 04/05/2024 Are you , , di vorced, , never , or living with a partner? 04/05/2024 AUDIT-C Answer Date Recorded Q1: How often do you have a drink containing alcohol? Never 05/01/2024 Q2: How many drinks containi ng alcohol do you have on a typical day when you are drinking? Patient does not drink Q3: How often do you have si x or more drinks on one occasion? Never 05/01/2024 Overall Financial Resource Strain (CARDIA) Answe r Date Recorded How hard is it for you to pa y for the very basics like food, housing, medical care, and heating? Not hard at all 04/05/2024 PHQ-2 Answer Date Recorded PHQ-2 Total Score (If total score is 3 or more points, staff should administer the PHQ-9) 0 08/28/2023 Exercise Vital Sign Answer Date Recorde d [...] the money to buy more. Never true 04/05/20 24 Within the past 12 months, t he food you bought just didn't last and you didn't have money to get more. Never true 04/05/2024 PRAPARE - Transportation Answer Date Re corded In the past 12 months, has l ack of transportation kept you from medical appointments or from getting medications? No 08/2023 In the past 12 months, has l ack of transportation kept you from meetings, work, or from getting things needed for daily living? No 04/05/2024 Housing Stability Vital Sign Answer Víctor e Recorded In the last 12 months, was t here a time when you were not able to pay the mortgage or rent on time? No 08/29/2023 In the last 12 months, how many places have you lived? 1 08/29/2023 In the last 12 months, was t here a time when you did not have a steady place to sleep or slept in a skilled nursing (including now)? No 08/29/2023 Housing Stability Vital Sign Answer Víctor e Recorded In the last 12 months, was t here a time when you were not able to pay the mortgage or rent on time? No 04/05/2024 In the past 12 months, how m any times have you moved where you were living? 0 04/05/2024 At any time in the past 12 m [facility], were you homeless or living in a skilled nursing (including now)? No 04/05/2024 Personal Safety Answer Date Recorded Have you ever been in or are you currently in a harmful physical or emotional relationship or is someone making you feel afraid or unsafe? Denies 04/04/2024 Education Answer Date Recorded What is the highest level of school you have completed or the highest degree you have received? Some college, no degree 08/29/2023 Sex and Gender Information Value Date Recorded Sex Assigned at Not on file Legal Sex Male 12:23 AM PROTECTION SPECIALIST Gender Identity Not on file Sexual Orientation Not on file Last Filed Vital Signs Vital Sign Reading Time Taken Comments Blood Pressure 128/76 05/01/2024 12:51 PM PROTECTION SPECIALIST Pulse 74 05/01/2024 12:51 PM PROTECTION SPECIALIST Temperature 36.8 ??C (98.3 ??F) 04/10/2024 11:[address] Respiratory Rate 20 04/10/2024 11:24 AM PROTECTION SPECIALIST Oxygen Saturation 92% 04/10/2024 11:24 AM PROTECTION SPECIALIST Inhaled Oxygen Concentration - - Weight 121.1 kg (267 lb) 05/01/2024 12:51 PM PROTECTION SPECIALIST Height 177.8 cm (5' 10 ) 05/01/2024 12:51 PM PROTECTION SPECIALIST Body Mass Index 38.31 05/01/2024 12:51 PM PROTECTION SPECIALIST Plan of Treatment Not on file Medical Devices Implanted Type Area Integration Solution Architect Device Identifier Shelf Expiration Date Model / Serial / Lot [employer] Daysi Synergy Xd Monorail 3.5mm 12mm 144cm Delivery System 1 Access [id number] - [id number] Implanted:Qty: 1 on 08/29/2023 by Louie Lomeli MD at [facility] Stent [employer] Days[employer] 10/19/2024 [id number] / / [id number] [employer] Stent Coronary De Rx Cocr Xience Skypoint [id number] - [id number] Implanted:Qty: 1 on 12/17/2021 by Loiue Lomeli MD at [facility] [employer] 08/24/2023 [id number] [employer] Stent Coronary De Rx Cocr Xience Skypoint [id number] - [id number] Implanted:Qty: 1 on 12/17/2021 by Louie Lomeli MD at [facility] [employer] 08/28/2023 [id number] [employer] Dayis Synergy 3mm 16mm 144cm Radiopaque 1 Access Port Inflation Lumen [id number] - [id number] Implanted:Qty: 1 on 12/22/2021 by Louie Lomeli MD at [facility] [employer] Daysi 09/04/2022 [id number] / / [id number] TerBulu Box Angio-Seal Vip 6fr Closere Device [id number] - [id number] Implanted:Qty: 1 on 12/22/2021 by Louie Lomeli MD at [facility] [employer] 09/29/2022 [id number] / / [id number] Procedures Procedure Name Priority Date/Time Associated Diagnosis Comments [place] ARTHROCENTESIS ASPIR&/INJ MAJOR JT/BURSA W/O US Routine 05/01/2024 3:00 PM PROTECTION SPECIALIST Primary osteoarthritis of left knee POCT GLUCOSE DEVICE Routine 04/10/2024 11:28 AM PROTECTION SPECIALIST POCT GLUCOSE DEVICE Routine 04/10/2024 8 :01 AM PROTECTION SPECIALIST POCT GLUCOSE DEVICE Routine 04/10/2024 2 :33 AM PROTECTION SPECIALIST EGFR Routine 04/10/2024 2:30 AM PROTECTION SPECIALIST DIFFERENTIAL AUTO Routine 04/10/2024 2:3 0 AM PROTECTION SPECIALIST PHOSPHORUS Routine 04/10/2024 2:30 AM PROTECTION SPECIALIST CBC WITH AUTO DIFFERENTIAL Routine 04/10/2024 2:30 AM PROTECTION SPECIALIST MAGNESIUM Routine 04/10/2024 2:30 AM PROTECTION SPECIALIST COMPREHENSIVE METABOLIC PANEL Routine 04/10/2024 2:30 AM PROTECTION SPECIALIST EGFR Timed 04/10/2024 12:05 AM PROTECTION SPECIALIST CREATININE Timed 04/10/2024 12:05 AM PROTECTION SPECIALIST CBC WITHOUT DIFFERENTIAL Timed 04/10/2024 12:05 AM PROTECTION SPECIALIST POCT GLUCOSE DEVICE Routine 04/09/2024 8 :55 PM PROTECTION SPECIALIST POCT GLUCOSE DEVICE Routine 04/09/2024 5 :11 PM PROTECTION SPECIALIST POCT GLUCOSE DEVICE Routine 04/09/2024 11:19 AM PROTECTION SPECIALIST POCT GLUCOSE DEVICE Routine 04/09/2024 7 :38 AM PROTECTION SPECIALIST POCT GLUCOSE DEVICE Routine 04/09/2024 2 :37 AM PROTECTION SPECIALIST EGFR Routine 04/09/2024 2:15 AM PROTECTION SPECIALIST DIFFERENTIAL AUTO Routine 04/09/2024 2:1 5 AM PROTECTION SPECIALIST PHOSPHORUS Routine 04/09/2024 2:15 AM PROTECTION SPECIALIST CBC WITH AUTO DIFFERENTIAL Routine 04/09/2024 2:15 AM PROTECTION SPECIALIST MAGNESIUM Routine 04/09/2024 2:15 AM PROTECTION SPECIALIST COMPREHENSIVE METABOLIC PANEL Routine 04/09/2024 2:15 AM PROTECTION SPECIALIST POCT GLUCOSE DEVICE Routine 04/08/2024 8 :41 PM PROTECTION SPECIALIST POCT GLUCOSE DEVICE Routine 04/08/2024 4 :45 PM PROTECTION SPECIALIST POCT GLUCOSE DEVICE Routine 04/08/2024 11:51 AM PROTECTION SPECIALIST POCT GLUCOSE DEVICE Routine 04/08/2024 8 :41 AM PROTECTION SPECIALIST EGFR Routine 04/08/2024 3:00 AM PROTECTION SPECIALIST DIFFERENTIAL AUTO Routine 04/08/2024 3:0 0 AM PROTECTION SPECIALIST PHOSPHORUS Routine 04/08/2024 3:00 AM PROTECTION SPECIALIST CBC WITH AUTO DIFFERENTIAL Routine 04/08/2024 3:00 AM PROTECTION SPECIALIST MAGNESIUM Routine 04/08/2024 3:00 AM PROTECTION SPECIALIST COMPREHENSIVE METABOLIC PANEL Routine 04/08/2024 3:00 AM PROTECTION SPECIALIST POCT GLUCOSE DEVICE Routine 04/08/2024 1 :58 AM PROTECTION SPECIALIST POCT GLUCOSE DEVICE Routine 04/07/2024 8 :27 PM PROTECTION SPECIALIST POCT GLUCOSE DEVICE Routine 04/07/2024 5 :01 PM PROTECTION SPECIALIST POCT GLUCOSE DEVICE Routine 04/07/2024 11:47 AM PROTECTION SPECIALIST EGFR Routine 04/07/2024 9:18 AM PROTECTION SPECIALIST DIFFERENTIAL AUTO Routine 04/07/2024 9:1 8 AM PROTECTION SPECIALIST PHOSPHORUS Routine 04/07/2024 9:18 AM PROTECTION SPECIALIST CBC WITH AUTO DIFFERENTIAL Routine 04/07/2024 9:18 AM PROTECTION SPECIALIST MAGNESIUM Routine 04/07/2024 9:18 AM PROTECTION SPECIALIST COMPREHENSIVE METABOLIC PANEL Routine 04/07/2024 9:18 AM PROTECTION SPECIALIST POCT GLUCOSE DEVICE Routine 04/07/2024 8 :24 AM PROTECTION SPECIALIST POCT GLUCOSE DEVICE Routine 04/06/2024 8 :32 PM PROTECTION SPECIALIST POCT GLUCOSE DEVICE Routine 04/06/2024 5 :18 PM PROTECTION SPECIALIST URINALYSIS AND REFLEX TO MICROSCOPIC AND CULTURE Routine 04/06/2024 4:18 PM PROTECTION SPECIALIST XR ANKLE LEFT 3 OR MORE VIEWS IP Routine 04/06/2024 3:14 PM PROTECTION SPECIALIST XR FOOT LEFT 3 OR MORE VIEWS IP Routine 04/06/2024 3:14 PM PROTECTION SPECIALIST POCT GLUCOSE DEVICE Routine 04/06/2024 12:05 PM PROTECTION SPECIALIST BLOOD GAS, VENOUS Routine 04/06/2024 10:20 AM PROTECTION SPECIALIST PULSE OXIMETRY STUDY Routine 04/06/2024 9:53 AM PROTECTION SPECIALIST POCT GLUCOSE DEVICE Routine 04/06/2024 8 :26 AM PROTECTION SPECIALIST EGFR Routine 04/06/2024 2:21 AM PROTECTION SPECIALIST DIFFERENTIAL AUTO Routine 04/06/2024 2:2 1 AM PROTECTION SPECIALIST CBC WITH AUTO DIFFERENTIAL Routine 04/06/2024 2:21 AM PROTECTION SPECIALIST MAGNESIUM Routine 04/06/2024 2:21 AM PROTECTION SPECIALIST COMPREHENSIVE METABOLIC PANEL Routine 04/06/2024 2:21 AM PROTECTION SPECIALIST POCT GLUCOSE DEVICE Routine 04/06/2024 1 :58 AM PROTECTION SPECIALIST POCT GLUCOSE DEVICE Routine 04/05/2024 8 :47 PM PROTECTION SPECIALIST POCT GLUCOSE DEVICE Routine 04/05/2024 5 :20 PM PROTECTION SPECIALIST ECG 12-LEAD Routine 04/05/2024 2:40 PM PROTECTION SPECIALIST POCT GLUCOSE DEVICE Routine 04/05/2024 1 :26 PM PROTECTION SPECIALIST STRESS TEST FOR DUAL READ IP Routine 04/05/2024 1:22 PM PROTECTION SPECIALIST NM MPI SPECT (REST AND/OR STRESS) MULTIPLE STUDIES IP Routine 04/05/2024 1:22 PM PROTECTION SPECIALIST POCT GLUCOSE DEVICE Routine 04/05/2024 8 :33 AM PROTECTION SPECIALIST EGFR Routine 04/05/2024 6:48 AM PROTECTION SPECIALIST DIFFERENTIAL AUTO Routine 04/05/2024 6:4 8 AM PROTECTION SPECIALIST CBC WITH AUTO DIFFERENTIAL Routine 04/05/2024 6:48 AM PROTECTION SPECIALIST MAGNESIUM Routine 04/05/2024 6:48 AM PROTECTION SPECIALIST COMPREHENSIVE METABOLIC PANEL Routine 04/05/2024 6:48 AM PROTECTION SPECIALIST POCT GLUCOSE DEVICE Routine 04/05/2024 2 :22 AM PROTECTION SPECIALIST TROPONIN T HIGH-SENSITIVITY 4-HR Timed 04/04/2024 11:16 PM PROTECTION SPECIALIST POCT GLUCOSE DEVICE Routine 04/04/2024 9 :25 PM PROTECTION SPECIALIST EGFR STAT 04/04/2024 7:30 PM PROTECTION SPECIALIST CREATININE STAT 04/04/2024 7:30 PM PROTECTION SPECIALIST CBC WITHOUT DIFFERENTIAL STAT 04/04/2024 7:30 PM PROTECTION SPECIALIST TROPONIN T HIGH-SENSITIVITY 2-HOUR Timed 04/04/2024 7:30 PM PROTECTION SPECIALIST POCT GLUCOSE DEVICE Routine 04/04/2024 7 :25 PM PROTECTION SPECIALIST APTT STAT 04/04/2024 5:57 PM PROTECTION SPECIALIST PROTIME-INR STAT 04/04/2024 5:57 PM PROTECTION SPECIALIST EGFR STAT 04/04/2024 5:57 PM PROTECTION SPECIALIST PRO B-TYPE NATRIURETIC PEPTIDE Routine 04/04/2024 5:57 PM PROTECTION SPECIALIST DIFFERENTIAL AUTO STAT 04/04/2024 5:5 7 PM PROTECTION SPECIALIST TROPONIN T HIGH-SENSITIVITY SERIES (BASELINE, 2HR, 4HR, 6HR) STAT 04/04/2024 5:57 PM PROTECTION SPECIALIST COMPREHENSIVE METABOLIC PANEL STAT 04/04/2024 5:57 PM PROTECTION SPECIALIST CBC WITH AUTO DIFFERENTIAL STAT 04/04/2024 5:57 PM PROTECTION SPECIALIST XR CHEST 1 VIEW ED 04/04/2024 5:27 PM PROTECTION SPECIALIST ECG 12-LEAD STAT 04/04/2024 5:11 PM PROTECTION SPECIALIST XR KNEE LEFT 4 OR MORE VIEWS Schedule Routine, Read Routine (OP Routine) 03/01/2024 1:27 PM CDT Primary osteoarthritis of left knee XR KNEE LEFT 4 OR MORE VIEWS ED 02/28/2024 2:05 PM CDT HEMOGLOBIN A1C Routine 08/30/2023 2:23 AM CDT LIPID PANEL Routine 08/28/2023 8:27 PM CDT ALBUMIN CREATININE RATIO, URINE Routine 10/28/2021 2:47 PM CDT Type 2 diabetes mellitus without complication, without long-term current use of insulin (CMS/HCC) (HCC) PSA SCREEN Routine 10/28/2021 2:47 PM CDT Encounter for screening for lipid disorder STOOL DNA ? COLOGUARD Routine 11/30/2020 from Last 3 Months or Most Recently Relevant to Health Maintenance Results * [place] ARTHROCENTESIS ASPIR&/INJ MAJOR JT/BURSA W/O US (05/01/2024 3:00 PM PROTECTION SPECIALIST) Narrative Karen Christopher NP - 05/01/2024 3:00 PM PROTECTION SPECIALIST Karen Christopher NP ? 05/01/2024 ??1:31 PM Large Joint (Hip, Knee, Shoulder) Injection: L knee Performed by: Karen Christopher NP Authorized by: Karen Christopher NP ?? Large Joint Injection/Aspiration: ??Consent Given by: ??Patient ??Site marked: the procedure site was marked ?Timeout: prior to procedure the correct patient, procedure, and site was verified ?Verbal consent obtained: Yes ?? Supporting Documentation: ??Indications: ??Pain Procedure Details: ??Location: ??Knee ??Site: ??L knee ??Needle Size: ??22 G ??Approach: ??Anterolateral ??Ultrasound guided: No ?Fluroscopic guidance: No ?Medications: ??2 mL lidocaine 20 mg/mL (2 %); 32 mg triamcinolone acetonide extended release 32 mg ??Patient tolerance: ??Patient tolerated the procedure well with no immediate complications us Karen Christopher DIRECTOR OF COUNSELING IN CLINIC/BEDSIDE ORDER ALLEGRA Final Result * POCT glucose (04/10/2024 11:28 AM PROTECTION SPECIALIST) Glucose, POC 187 70 - 199 mg/dL Blood 04/10/2024 11:2 8 AM PROTECTION SPECIALIST 04/10/2024 11:28 AM PROTECTION SPECIALIST us Jessenia Rizvi MD LAB POCT ORDERABLES - DEVICE F inal Result [facility] 1 [facility] [place] [address] * POCT glucose (04/10/2024 8:01 AM PROTECTION SPECIALIST) Glucose, POC 135 70 - 199 mg/dL Blood 04/10/2024 8:01 AM PROTECTION SPECIALIST 04/10/2024 8:01 AM PROTECTION SPECIALIST Jessenia Rizvi MD LAB POCT ORDERABLES - DEVICE F inal Result [facility] ([place] [address] [place] [address] * POCT glucose (04/10/2024 2:33 AM PROTECTION SPECIALIST) Glucose, POC 129 70 - 199 mg/dL Blood 04/10/2024 2:33 AM PROTECTION SPECIALIST 04/10/2024 2:33 AM PROTECTION SPECIALIST us Marco Antonio Niño MD LAB POCT ORDERABLES - DEVICE Fi nal Result Performing Organization Address [facility]/ZIP Co de Phone Number [facility] ([place]) 1 [facility] [place] [address] * eGFR (04/10/2024 2:30 AM PROTECTION SPECIALIST) eGFR 61 >=60 mL/min/1. 73 m2 Comment: Interpretive Data Reference Interval Normal ?>/= 90 mL/min/1.73m2 Mildly decreased* ? 60 - 89 mL/min/1.73m2 Mildly to moderately decreased ?45 - 59 mL/min/1.73m2 Moderately to severely decreased ??30 - 44 mL/min/1.73m2 Severely decreased ?15 - 29 mL/min/1.73m2 Kidney Failure ?< 15 ??mL/min/1.73m2 *Relative to young adult level Estimated glomerular filtration rate is determined by the 2020 CKD-EPI equation recommended by the National Kidney Foundation (A Unifying Approach to GFR Estimation: Recommendations of the NKF-ASK Task Force on Reassessing the Inclusion of Race in Diagnosing Kidney Disease, JASN 2020). The CKD-EPI equation should not be used for patients with unstable renal function and has not been validated in children and those over 70. Current interpretive data was last reviewed 2021. Blood 04/10/2024 2:30 AM PROTECTION SPECIALIST 04/10/2024 4:05 AM PROTECTION SPECIALIST us Krystal Araujo MD LAB BLOOD ORDERABLES Fi nal Result [facility] ([place] 1 [facility] [place] [address] * (ABNORMAL) Differential, auto (04/10/2024 2:30 AM PROTECTION SPECIALIST) Neutrophil abs 8.2(H) 1.5 - 6.5 K/cumm Imm gran abs 0.2(H) 0.0 - 0.1 K/cumm [facility] ([place]) Lymphocyte abs 1.4 0.8 - 3.3 K/cumm [facility]) Monocyte abs 0.8 0.2 - 0.8 K/cumm [facility] ([place]) Eosinophil abs 0.1 0.0 - 0.5 K/cumm [facility] ([place]) Basophil abs 0.0 0.0 - 0.1 K/cumm [facility] ([place]) Neutrophil pct 75.9 % [facility] Comment: Interpretive Data Percent cell count reference ranges are not reported, since discordance with absolute values may lead to misinterpretation of CBC data. Current Interpretive Data was last revised on 2017. Imm gran pct 2.0 % [facility] ([place]) Comment: Interpretive Data Percent cell count reference ranges are not reported, since discordance with absolute values may lead to misinterpretation of CBC data. Current Interpretive Data was last revised on 2017. Lymphocyte pct 12.7 % [facility] Comment: Interpretive Data Percent cell count reference ranges are not reported, since discordance with absolute values may lead to misinterpretation of CBC data. Current Interpretive Data was last revised on 2017. Monocyte pct 7.8 % [facility] ([place]) Comment: Interpretive Data Percent cell count reference ranges are not reported, since discordance with absolute values may lead to misinterpretation of CBC data. Current Interpretive Data was last revised on 2017. Eosinophil pct 1.2 % [facility] Comment: Interpretive Data Percent cell count reference ranges are not reported, since discordance with absolute values may lead to misinterpretation of CBC data. Current Interpretive Data was last revised on 2017. Basophil pct 0.4 % [facility] ([place]) Comment: Interpretive Data Percent cell count reference ranges are not reported, since discordance with absolute values may lead to misinterpretation of CBC data. Current Interpretive Data was last revised on 2017. Blood 04/10/2024 2:30 AM PROTECTION SPECIALIST 04/10/2024 4:02 AM PROTECTION SPECIALIST us Krystal Araujo MD LAB BLOOD ORDERABLES nal Result [facility] ([place] [address] [facility] [place] [address] * (ABNORMAL) CBC with auto differential (04/10/2024 2:30 AM PROTECTION SPECIALIST) WBC 10.7(H) 3.8 - 9.9 K/cumm Hgb 13.3 13.0 - 17.5 g/dL [facility] ([place]) Hct 41.7 38.9 - 50.3 % [facility] ([place]) Plt 219 150 - 400 K/cumm [facility]) MPV 10.2 9.1 - 12.3 fL [facility]) RBC 4.50 4.30 - 5.80 M/cumm [facility] ([place]) MCV 92.7 81.3 - 96.4 fL [facility] ([place]) MCH 29.6 27.1 - 33.3 pg [facility] ([place] MCHC 31.9(L) 32.3 - 35.7 g/dL [facility] RDW CV 13.6 11.1 - 14.9 % [facility] ([place] RDW SD 46.4 35.7 - 48.1 fL [facility] ([place]) NRBC abs 0.00 0.00 - 0.01 K/cumm [facility] ([place]) Blood 04/10/2024 2:30 AM PROTECTION SPECIALIST 04/10/2024 4:02 AM PROTECTION SPECIALIST Krystal Araujo MD LAB BLOOD ORDERABLES Fi nal Result [facility] ([place]) 1 [facility] [employer] [place] [address] * Phosphorus (04/10/2024 2:30 AM PROTECTION SPECIALIST) Phosphorus, pl 2.5 2.3 - 4.5 mg/dL Blood 04/10/2024 2:30 AM PROTECTION SPECIALIST 04/10/2024 4:05 AM PROTECTION SPECIALIST Marco Antonio Niño MD LAB BLOOD ORDERABLES Final Resu lt Performing Organization Address City/[facility]/ZIP Co de Phone Number [facility] ([place]) 1 [facility] [employer] [place] [address] * Magnesium (04/10/2024 2:30 AM PROTECTION SPECIALIST) Magnesium 1.9 1.4 - 2.5 mg/dL Blood 04/10/2024 2:30 AM PROTECTION SPECIALIST 04/10/2024 4:05 AM PROTECTION SPECIALIST Krystal Araujo MD LAB BLOOD ORDERABLES Fi nal Result [facility] ([place]) 1 [facility] [employer] [place] [address] * Comprehensive metabolic panel (04/10/2024 2:30 AM PROTECTION SPECIALIST) Sodium 143 135 - 145 mmol/L Potassium, pl 3.7 3.3 - 4.9 mmol/L [facility] ([place]) Chloride 106 97 - 110 mmol/L [facility] ([place]) CO2 24 22 - 32 mmol/L [facility] ([place]) Anion gap 13 2 - 15 mmol/L [facility] ([place]) BUN 19 6 - 25 mg/dL [facility] ([place]) Creatinine 1.26 0.80 - 1.30 mg/dL [facility] ([place]) Glucose 123 70 - 199 mg/dL [facility] ([place]) Comment: Interpretive Data Fasting glucose >/= 126 mg/dl is diagnostic for diabetes. ?? Fasting is defined as no caloric intake for at least 8 hours. Fasting glucose between 100 mg/dl to 125 mg/dl is diagnostic of prediabetes. In a patient with classic symptoms of hyperglycemia or hyperglycemic crisis, a random glucose >/= 200 mg/dl is diagnostic for diabetes. In the absence of unequivocal hyperglycemia, results should be confirmed by repeat testing. The classification and Diagnosis of Diabetes Diabetes Care 2021; 46: S19-S40. Current interpretive data was last revised 2022. Calcium 9.0 8.5 - 10.3 mg/dL [facility] ([place]) Bilirubin, total 0.3 0.1 - 1.2 mg/dL [facility] ([place]) Protein, pl 6.5 6.5 - 8.5 g/dL [facility] ([place]) Albumin 3.6 3.5 - 5.0 g/dL [facility] ([place]) Alk phos 111 40 - 130 Units/L [facility] ([place]) ALT 13 7 - 55 Units/L [facility] ([place]) AST 13 10 - 50 Units/L [facility] ([place]) Blood 04/10/2024 2:30 AM PROTECTION SPECIALIST 04/10/2024 4:05 AM PROTECTION SPECIALIST us Krystal Araujo MD LAB BLOOD ORDERABLES Fi nal Result [facility] ([place]) 1 [facility] [place] [address] * (ABNORMAL) eGFR (04/10/2024 12:05 AM PROTECTION SPECIALIST) eGFR 59(L) >=60 mL/min/1. 73 m2 Comment: Interpretive Data Reference Interval Normal ?>/= 90 mL/min/1.73m2 Mildly decreased* ? 60 - 89 mL/min/1.73m2 Mildly to moderately decreased ?45 - 59 mL/min/1.73m2 Moderately to severely decreased ??30 - 44 mL/min/1.73m2 Severely decreased ?15 - 29 mL/min/1.73m2 Kidney Failure ?< 15 ??mL/min/1.73m2 *Relative to young adult level Estimated glomerular filtration rate is determined by the 2020 CKD-EPI equation recommended by the National Kidney Foundation (A Unifying Approach to GFR Estimation: Recommendations of the NKF-ASK Task Force on Reassessing the Inclusion of Race in Diagnosing Kidney Disease, JASN 2020). The CKD-EPI equation should not be used for patients with unstable renal function and has not been validated in children and those over 70. Current interpretive data was last reviewed 2021. Blood 04/10/2024 12:0 5 AM PROTECTION SPECIALIST 04/10/2024 12:14 AM PROTECTION SPECIALIST us Krystal Araujo MD LAB BLOOD ORDERABLES Fi nal Result [facility] ([place]) 1 [facility] [place] [address] * (ABNORMAL) CBC without differential (04/10/2024 12:05 AM PROTECTION SPECIALIST) Pathologist [facility] WBC 10.9(H) 3.8 - 9.9 K/cumm Hgb 13.4 13.0 - 17.5 g/dL [facility] ([place]) Hct 41.2 38.9 - 50.3 % [facility] ([place]) Plt 223 150 - 400 K/cumm [facility] ([place]) MPV 10.2 9.1 - 12.3 fL [facility] ([place]) RBC 4.48 4.30 - 5.80 M/cumm [facility] ([place]) MCV 92.0 81.3 - 96.4 fL [facility] ([place]) MCH 29.9 27.1 - 33.3 pg [facility] ([place]) MCHC 32.5 32.3 - 35.7 g/dL [facility] ([place]) RDW CV 13.7 11.1 - 14.9 % [facility] ([place]) RDW SD 45.7 35.7 - 48.1 fL [facility] ([place]) NRBC abs 0.00 0.00 - 0.01 K/cumm [facility] ([place]) Blood 04/10/2024 12:0 5 AM PROTECTION SPECIALIST 04/10/2024 12:14 AM PROTECTION SPECIALIST Narrative [facility] ([place]) - 04/10/2024 12:36 AM PROTECTION SPECIALIST While on enoxaparin us Krystal Araujo MD LAB BLOOD ORDERABLES Fi nal Result Performing Organization Address City/[facility]/ZIP Co de Phone Number [facility] ([place]) 1 [facility] [place] [address] * Creatinine (04/10/2024 12:05 AM PROTECTION SPECIALIST) Creatinine 1.29 0.80 - 1.30 mg/dL Blood 04/10/2024 12:0 5 AM PROTECTION SPECIALIST 04/10/2024 12:14 AM PROTECTION SPECIALIST Narrative [facility] ([place]) - 04/10/2024 12:56 AM PROTECTION SPECIALIST While on enoxaparin us Krystal Araujo MD LAB BLOOD ORDERABLES Fi nal Result [facility] ([place]) 1 [facility] [place] [address] * (ABNORMAL) POCT glucose (04/09/2024 8:55 PM PROTECTION SPECIALIST) Glucose, POC 200(H) 70 - 199 mg/dL Blood 04/09/2024 8:55 PM PROTECTION SPECIALIST 04/09/2024 8:55 PM PROTECTION SPECIALIST Marco Antonio Niño MD LAB POCT ORDERABLES - DEVICE Fi nal Result [facility] ([place]) 1 [place] [address] * POCT glucose (04/09/2024 5:11 PM PROTECTION SPECIALIST) Glucose, POC 150 70 - 199 mg/dL Blood 04/09/2024 5:11 PM PROTECTION SPECIALIST 04/09/2024 5:11 PM PROTECTION SPECIALIST Marco Antonio Niño MD LAB POCT ORDERABLES - DEVICE Fi nal Result Performing Organization Address City/[facility]/ZIP Co de Phone Number [facility] ([place]) 1 [facility] [place] [address] * POCT glucose (04/09/2024 11:19 AM PROTECTION SPECIALIST) Glucose, POC 193 70 - 199 mg/dL Blood 04/09/2024 11:1 9 AM PROTECTION SPECIALIST 04/09/2024 11:19 AM PROTECTION SPECIALIST us Marco Antonio Niño MD LAB POCT ORDERABLES - DEVICE Fi nal Result [facility] ([place]) 1 [facility] [place] [address] * POCT glucose (04/09/2024 7:38 AM PROTECTION SPECIALIST) Glucose, POC 142 70 - 199 mg/dL Blood 04/09/2024 7:38 AM PROTECTION SPECIALIST 04/09/2024 7:38 AM PROTECTION SPECIALIST us Marco Antonio Niño MD LAB POCT ORDERABLES - DEVICE Fi nal Result Performing Organization Address [facility] Co de Phone Number [facility] ([place]) 1 [place] [address] * POCT glucose (04/09/2024 2:37 AM PROTECTION SPECIALIST) Glucose, POC 135 70 - 199 mg/dL Blood 04/09/2024 2:37 AM PROTECTION SPECIALIST 04/09/2024 2:37 AM PROTECTION SPECIALIST Marco Antonio Niño MD LAB POCT ORDERABLES - DEVICE Fi nal Result Performing Organization Address [facility] de Phone Number [facility] ([place]) 1 [facility] [place] [address] * eGFR (04/09/2024 2:15 AM PROTECTION SPECIALIST) eGFR 62 >=60 mL/min/1. 73 m2 Comment: Interpretive Data Reference Interval Normal ?>/= 90 mL/min/1.73m2 Mildly decreased* ? 60 - 89 mL/min/1.73m2 Mildly to moderately decreased ?45 - 59 mL/min/1.73m2 Moderately to severely decreased ??30 - 44 mL/min/1.73m2 Severely decreased ?15 - 29 mL/min/1.73m2 Kidney Failure ?< 15 ??mL/min/1.73m2 *Relative to young adult level Estimated glomerular filtration rate is determined by the 2020 CKD-EPI equation recommended by the National Kidney Foundation (A Unifying Approach to GFR Estimation: Recommendations of the NKF-ASK Task Force on Reassessing the Inclusion of Race in Diagnosing Kidney Disease, JASN 2020). The CKD-EPI equation should not be used for patients with unstable renal function and has not been validated in children and those over 70. Current interpretive data was last reviewed 2021. Blood 04/09/2024 2:15 AM PROTECTION SPECIALIST 04/09/2024 3:50 AM PROTECTION SPECIALIST us Krystal Arajuo MD LAB BLOOD ORDERABLES Fi nal Result [facility] ([place]) 1 [facility] [place] [address] * (ABNORMAL) Differential, auto (04/09/2024 2:15 AM PROTECTION SPECIALIST) Neutrophil abs 8.5(H) 1.5 - 6.5 K/cumm Imm gran abs 0.2(H) 0.0 - 0.1 K/cumm [facility] ([place]) Lymphocyte abs 1.4 0.8 - 3.3 K/cumm [facility] ([place]) Monocyte abs 0.9(H) 0.2 - 0.8 K/cumm [facility] ([place]) Eosinophil abs 0.1 0.0 - 0.5 K/cumm [facility] ([place]) Basophil abs 0.1 0.0 - 0.1 K/cumm [facility] ([place]) Neutrophil pct 76.0 % [facility] ([place]) Comment: Interpretive Data Percent cell count reference ranges are not reported, since discordance with absolute values may lead to misinterpretation of CBC data. Current Interpretive Data was last revised on 2017. Imm gran pct 2.1 % [facility] ([place]) Comment: Interpretive Data Percent cell count reference ranges are not reported, since discordance with absolute values may lead to misinterpretation of CBC data. Current Interpretive Data was last revised on 2017. Lymphocyte pct 12.2 % [facility] ([place]) Comment: Interpretive Data Percent cell count reference ranges are not reported, since discordance with absolute values may lead to misinterpretation of CBC data. Current Interpretive Data was last revised on 2017. Monocyte pct 8.0 % [facility] ([place]) Comment: Interpretive Data Percent cell count reference ranges are not reported, since discordance with absolute values may lead to misinterpretation of CBC data. Current Interpretive Data was last revised on 2017. Eosinophil pct 1.3 % [facility] ([place]) Comment: Interpretive Data Percent cell count reference ranges are not reported, since discordance with absolute values may lead to misinterpretation of CBC data. Current Interpretive Data was last revised on 2017. Basophil pct 0.4 % [facility] ([place]) Comment: Interpretive Data Percent cell count reference ranges are not reported, since discordance with absolute values may lead to misinterpretation of CBC data. Current Interpretive Data was last revised on 2017. Blood 04/09/2024 2:15 AM PROTECTION SPECIALIST 04/09/2024 3:48 AM PROTECTION SPECIALIST us Krystal Araujo MD LAB BLOOD ORDERABLES nal Result [facility] ([place]) 1 [facility] [place] [address] * (ABNORMAL) CBC with auto differential (04/09/2024 2:15 AM PROTECTION SPECIALIST) WBC 11.2(H) 3.8 - 9.9 K/cumm Hgb 13.2 13.0 - 17.5 g/dL [facility] ([place]) Hct 40.8 38.9 - 50.3 % [facility] ([place]) Plt 218 150 - 400 K/cumm [facility] ([place]) MPV 10.1 9.1 - 12.3 fL [facility] ([place]) RBC 4.44 4.30 - 5.80 M/cumm [facility] ([place]) MCV 91.9 81.3 - 96.4 fL [facility] ([place]) MCH 29.7 27.1 - 33.3 pg [facility] ([place]) MCHC 32.4 32.3 - 35.7 g/dL [facility] ([place]) RDW CV 13.6 11.1 - 14.9 % [facility] ([place]) RDW SD 45.6 35.7 - 48.1 fL [facility] ([place]) NRBC abs 0.00 0.00 - 0.01 K/cumm [facility] ([place]) Blood 04/09/2024 2:15 AM PROTECTION SPECIALIST 04/09/2024 3:48 AM PROTECTION SPECIALIST us Krystal Araujo MD LAB BLOOD ORDERABLES Fi nal Result [facility] ([place]) 1 [facility] [place] [address] * Phosphorus (04/09/2024 2:15 AM PROTECTION SPECIALIST) Phosphorus, pl 2.4 2.3 - 4.5 mg/dL Blood 04/09/2024 2:15 AM PROTECTION SPECIALIST 04/09/2024 3:50 AM PROTECTION SPECIALIST Marco Antonio Niño MD LAB BLOOD ORDERABLES Final Resu lt Performing Organization Address City/[facility]/ZIP Co de Phone Number [facility] ([place]) 1 [facility] [employer] [place] [address] * Magnesium (04/09/2024 2:15 AM PROTECTION SPECIALIST) Magnesium 2.1 1.4 - 2.5 mg/dL Blood 04/09/2024 2:1 5 AM PROTECTION SPECIALIST 04/09/2024 3:50 AM PROTECTION SPECIALIST Krystal Araujo MD LAB BLOOD ORDERABLES Fi nal Result Performing Organization Address City/[facility]/ZIP Co de Phone Number [facility] ([place]) 1 [facility] [place] [address] * Comprehensive metabolic panel (04/09/2024 2:15 AM PROTECTION SPECIALIST) Sodium 142 135 - 145 mmol/L Potassium, pl 3.5 3.3 - 4.9 mmol/L [facility] ([place]) Chloride 105 97 - 110 mmol/L [facility] ([place]) CO2 26 22 - 32 mmol/L [facility] ([place]) Anion gap 11 2 - 15 mmol/L [facility] ([place]) BUN 23 6 - 25 mg/dL [facility] ([place]) Creatinine 1.25 0.80 - 1.30 mg/dL [facility] ([place]) Glucose 125 70 - 199 mg/dL [facility] ([place]) Comment: Interpretive Data Fasting glucose >/= 126 mg/dl is diagnostic for diabetes. ?? Fasting is defined as no caloric intake for at least 8 hours. Fasting glucose between 100 mg/dl to 125 mg/dl is diagnostic of prediabetes. In a patient with classic symptoms of hyperglycemia or hyperglycemic crisis, a random glucose >/= 200 mg/dl is diagnostic for diabetes. In the absence of unequivocal hyperglycemia, results should be confirmed by repeat testing. The classification and Diagnosis of Diabetes Diabetes Care 2021; 46: S19-S40. Current interpretive data was last revised 2022. Calcium 9.0 8.5 - 10.3 mg/dL [facility] ([place]) Bilirubin, total 0.2 0.1 - 1.2 mg/dL [facility] ([place]) Protein, pl 6.5 6.5 - 8.5 g/dL [facility] ([place]) Albumin 3.7 3.5 - 5.0 g/dL [facility] ([place]) Alk phos 111 40 - 130 Units/L [facility] ([place] ALT 12 7 - 55 Units/L [facility] ([place]) AST 12 10 - 50 Units/L [facility] ([place]) Blood 04/09/2024 2:15 AM PROTECTION SPECIALIST 04/09/2024 3:50 AM PROTECTION SPECIALIST us Krystal Araujo MD LAB BLOOD ORDERABLES Fi nal Result [facility] 1 [facility] [place] [address] * (ABNORMAL) POCT glucose (04/08/2024 8:41 PM PROTECTION SPECIALIST) Glucose, POC 216(H) 70 - 199 mg/dL Blood 04/08/2024 8:41 PM PROTECTION SPECIALIST 04/08/2024 8:41 PM PROTECTION SPECIALIST us Marco Antonio Niño MD LAB POCT ORDERABLES - DEVICE Fi nal Result Performing Organization Address City/[facility]/ZIP Co de Phone Number [facility] ([place]) 1 [facility] [place] [address] * POCT glucose (04/08/2024 4:45 PM PROTECTION SPECIALIST) Glucose, POC 199 70 - 199 mg/dL Blood 04/08/2024 4:45 PM PROTECTION SPECIALIST 04/08/2024 4:45 PM PROTECTION SPECIALIST us Marco Antonio Niño MD LAB POCT ORDERABLES - DEVICE Fi nal Result Performing Organization Address [facility] Co de Phone Number [facility] ([place]) 1 [facility] [place] [address] * POCT glucose (04/08/2024 11:51 AM PROTECTION SPECIALIST) Glucose, POC 181 70 - 199 mg/dL Blood 04/08/2024 11:5 1 AM PROTECTION SPECIALIST 04/08/2024 11:51 AM PROTECTION SPECIALIST us Marco Antonio Niño MD LAB POCT ORDERABLES - DEVICE Fi nal Result Performing Organization Address City/[facility] Co de Phone Number [facility] ([place]) 1 [facility] [place] [address] * POCT glucose (04/08/2024 8:41 AM PROTECTION SPECIALIST) Glucose, POC 142 70 - 199 mg/dL Blood 04/08/2024 8:41 AM PROTECTION SPECIALIST 04/08/2024 8:41 AM PROTECTION SPECIALIST us Marco Antonio Niño MD LAB POCT ORDERABLES - DEVICE Fi nal Result Performing Organization Address City/[facility]/ZIP Co de Phone Number [facility] ([place]) 1 [facility] [employer] [place] [address] * eGFR (04/08/2024 3:00 AM PROTECTION SPECIALIST) eGFR 60 >=60 mL/min/1. 73 m2 Comment: Interpretive Data Reference Interval Normal ?>/= 90 mL/min/1.73m2 Mildly decreased* ? 60 - 89 mL/min/1.73m2 Mildly to moderately decreased ?45 - 59 mL/min/1.73m2 Moderately to severely decreased ??30 - 44 mL/min/1.73m2 Severely decreased ?15 - 29 mL/min/1.73m2 Kidney Failure ?< 15 ??mL/min/1.73m2 *Relative to young adult level Estimated glomerular filtration rate is determined by the 2020 CKD-EPI equation recommended by the National Kidney Foundation (A Unifying Approach to GFR Estimation: Recommendations of the NKF-ASK Task Force on Reassessing the Inclusion of Race in Diagnosing Kidney Disease, JASN 202). The CKD-EPI equation should not be used for patients with unstable renal function and has not been validated in children and those over 70. Current interpretive data was last reviewed 2021. Blood 04/08/2024 3:00 AM PROTECTION SPECIALIST 04/08/2024 4:01 AM PROTECTION SPECIALIST us Krystal Araujo MD LAB BLOOD ORDERABLES Fi nal Result Performing Organization Address City/[facility]/ZIP Co de Phone Number [facility] ([place]) 1 [facility] [place] [address] * (ABNORMAL) Differential, auto (04/08/2024 3:00 AM PROTECTION SPECIALIST) Neutrophil abs 8.6(H) 1.5 - 6.5 K/cumm Imm gran abs 0.2(H) 0.0 - 0.1 K/cumm [facility] ([place]) Lymphocyte abs 1.3 0.8 - 3.3 K/cumm [facility] ([place]) Monocyte abs 0.9(H) 0.2 - 0.8 K/cumm [facility] ([place]) Eosinophil abs 0.2 0.0 - 0.5 K/cumm [facility] ([place]) Basophil abs 0.1 0.0 - 0.1 K/cumm [facility] ([place]) Neutrophil pct 76.6 % [facility] ([place]) Comment: Interpretive Data Percent cell count reference ranges are not reported, since discordance with absolute values may lead to misinterpretation of CBC data. Current Interpretive Data was last revised on 2017. Imm gran pct 1.8 % [facility] ([place]) Comment: Interpretive Data Percent cell count reference ranges are not reported, since discordance with absolute values may lead to misinterpretation of CBC data. Current Interpretive Data was last revised on 2017. Lymphocyte pct 11.8 % [facility] ([place]) Comment: Interpretive Data Percent cell count reference ranges are not reported, since discordance with absolute values may lead to misinterpretation of CBC data. Current Interpretive Data was last revised on 2017. Monocyte pct 7.9 % [facility] ([place]) Comment: Interpretive Data Percent cell count reference ranges are not reported, since discordance with absolute values may lead to misinterpretation of CBC data. Current Interpretive Data was last revised on 2017. Eosinophil pct 1.5 % [facility] ([place]) Comment: Interpretive Data Percent cell count reference ranges are not reported, since discordance with absolute values may lead to misinterpretation of CBC data. Current Interpretive Data was last revised on 2017. Basophil pct 0.4 % [facility] ([place]) Comment: Interpretive Data Percent cell count reference ranges are not reported, since discordance with absolute values may lead to misinterpretation of CBC data. Current Interpretive Data was last revised on 2017. Blood 04/08/2024 3:00 AM PROTECTION SPECIALIST 04/08/2024 3:57 AM PROTECTION SPECIALIST us Krystal Araujo MD LAB BLOOD ORDERABLES Fi nal Result [facility] ([place]) 1 [facility] [place] [address] * (ABNORMAL) CBC with auto differential (04/08/2024 3:00 AM PROTECTION SPECIALIST) WBC 11.2(H) 3.8 - 9.9 K/cumm Hgb 13.3 13.0 - 17.5 g/dL [facility] ([place]) Hct 40.8 38.9 - 50.3 % [facility] ([place]) Plt 203 150 - 400 K/cumm [facility] ([place]) MPV 9.9 9.1 - 12.3 fL [facility] ([place]) RBC 4.45 4.30 - 5.80 M/cumm [facility] ([place]) MCV 91.7 81.3 - 96.4 fL [facility] ([place]) MCH 29.9 27.1 - 33.3 pg [facility] ([place]) MCHC 32.6 32.3 - 35.7 g/dL [facility] ([place]) RDW CV 13.4 11.1 - 14.9 % [facility] ([place]) RDW SD 45.2 35.7 - 48.1 fL [facility] ([place]) NRBC abs 0.00 0.00 - 0.01 K/cumm [facility] ([place]) Blood 04/08/2024 3:00 AM PROTECTION SPECIALIST 04/08/2024 3:57 AM PROTECTION SPECIALIST us Krystal Araujo MD LAB BLOOD ORDERABLES Fi nal Result [facility] ([place]) 1 [facility] [place] [address] * Phosphorus (04/08/2024 3:00 AM PROTECTION SPECIALIST) Pathologist [facility] Phosphorus, pl 2.3 2.3 - 4.5 mg/dL Blood 04/08/2024 3:00 AM PROTECTION SPECIALIST 04/08/2024 4:01 AM PROTECTION SPECIALIST us Marco Antonio Niño MD LAB BLOOD ORDERABLES Final Resu lt [facility] ([place]) 1 [facility] [place] [address] * Magnesium (04/08/2024 3:00 AM PROTECTION SPECIALIST) [facility] [address] Magnesium 1.8 1.4 - 2.5 mg/dL Blood 04/08/2024 3:00 AM PROTECTION SPECIALIST 04/08/2024 4:01 AM PROTECTION SPECIALIST Krystal Araujo MD LAB BLOOD ORDERABLES Fi nal Result Performing Organization Address City/[facility]/ZIP Co de Phone Number [facility] ([place]) 1 [facility] [place] [address] * (ABNORMAL) Comprehensive metabolic panel (04/08/2024 3:00 AM PROTECTION SPECIALIST) [facility] [address] Sodium 143 135 - 145 mmol/L Potassium, pl 3.5 3.3 - 4.9 mmol/L [facility] ([place]) Chloride 106 97 - 110 mmol/L [facility] ([place]) CO2 27 22 - 32 mmol/L [facility] ([place]) Anion gap 10 2 - 15 mmol/L [facility] ([place]) BUN 22 6 - 25 mg/dL [facility] ([place]) Creatinine 1.28 0.80 - 1.30 mg/dL [facility] ([place]) Glucose 138 70 - 199 mg/dL [facility] ([place]) Comment: Interpretive Data Fasting glucose >/= 126 mg/dl is diagnostic for diabetes. ?? Fasting is defined as no caloric intake for at least 8 hours. Fasting glucose between 100 mg/dl to 125 mg/dl is diagnostic of prediabetes. In a patient with classic symptoms of hyperglycemia or hyperglycemic crisis, a random glucose >/= 200 mg/dl is diagnostic for diabetes. In the absence of unequivocal hyperglycemia, results should be confirmed by repeat testing. The classification and Diagnosis of Diabetes Diabetes Care 202; 46: S19-S40. Current interpretive data was last revised 2022. Calcium 8.7 8.5 - 10.3 mg/dL [facility] ([place]) Bilirubin, total 0.2 0.1 - 1.2 mg/dL [facility] ([place]) Protein, pl 6.2(L) 6.5 - 8.5 g/dL [facility] ([place]) Albumin 3.7 3.5 - 5.0 g/dL [facility] ([place]) Alk phos 109 40 - 130 Units/L [facility] ([place]) ALT 12 7 - 55 Units/L [facility] ([place]) AST 13 10 - 50 Units/L [facility] ([place]) Blood 04/08/2024 3:00 AM PROTECTION SPECIALIST 04/08/2024 4:01 AM PROTECTION SPECIALIST us Krystal Araujo MD LAB BLOOD ORDERABLES Fi nal Result [facility] ([place] 1 [facility] [place] [address] * POCT glucose (04/08/2024 1:58 AM PROTECTION SPECIALIST) Glucose, POC 140 70 - 199 mg/dL Blood 04/08/2024 1:58 AM PROTECTION SPECIALIST 04/08/2024 1:58 AM PROTECTION SPECIALIST us Marco Antonio Niño MD LAB POCT ORDERABLES - DEVICE Fi nal Result Performing Organization Address City/[facility]/ZIP Co de Phone Number [facility] 1 [facility] [place] [address] * (ABNORMAL) POCT glucose (04/07/2024 8:27 PM PROTECTION SPECIALIST) Glucose, POC 218(H) 70 - 199 mg/dL Blood 04/07/2024 8:27 PM PROTECTION SPECIALIST 04/07/2024 8:27 PM PROTECTION SPECIALIST us Marco Antonio Niño MD LAB POCT ORDERABLES - DEVICE Fi nal Result Performing Organization Address [facility] de Phone Number JULIETA GUERRERO ([place]) 1 [facility] [place] [address] * POCT glucose (04/07/2024 5:01 PM PROTECTION SPECIALIST) Glucose, POC 193 70 - 199 mg/dL Blood 04/07/2024 5:01 PM PROTECTION SPECIALIST 04/07/2024 5:01 PM PROTECTION SPECIALIST Marco Antonio Niño MD LAB POCT ORDERABLES - DEVICE Fi nal Result Performing Organization Address [facility] de Phone Number JULIETA GUERRERO ([place]) 1 [facility] [place] [address] * (ABNORMAL) POCT glucose (04/07/2024 11:47 AM PROTECTION SPECIALIST) Glucose, POC 231(H) 70 - 199 mg/dL Blood 04/07/2024 11:4 7 AM PROTECTION SPECIALIST 04/07/2024 11:47 AM PROTECTION SPECIALIST Marco Antonio Niño MD LAB POCT ORDERABLES - DEVICE Fi nal Result Performing Organization Address [facility] de Phone Number JULIETA GUERRERO ([place]) 1 [facility] [place] [address] * eGFR (04/07/2024 9:18 AM PROTECTION SPECIALIST) eGFR 60 >=60 mL/min/1. 73 m2 Comment: Interpretive Data Reference Interval Normal ?>/= 90 mL/min/1.73m2 Mildly decreased* ? 60 - 89 mL/min/1.73m2 Mildly to moderately decreased ?45 - 59 mL/min/1.73m2 Moderately to severely decreased ??30 - 44 mL/min/1.73m2 Severely decreased ?15 - 29 mL/min/1.73m2 Kidney Failure ?< 15 ??mL/min/1.73m2 *Relative to young adult level Estimated glomerular filtration rate is determined by the 2020 CKD-EPI equation recommended by the National Kidney Foundation (A Unifying Approach to GFR Estimation: Recommendations of the NKF-ASK Task Force on Reassessing the Inclusion of Race in Diagnosing Kidney Disease, JASN 2020). The CKD-EPI equation should not be used for patients with unstable renal function and has not been validated in children and those over 70. Current interpretive data was last reviewed 2021. Blood 04/07/2024 9:18 AM PROTECTION SPECIALIST 04/07/2024 9:56 AM PROTECTION SPECIALIST us Krystal Araujo MD LAB BLOOD ORDERABLES nal Result JULIETA [facility] ([place]) 1 [facility] [place] [address] * (ABNORMAL) Differential, auto (04/07/2024 9:18 AM PROTECTION SPECIALIST) Neutrophil abs 8.8(H) 1.5 - 6.5 K/cumm Imm gran abs 0.2(H) 0.0 - 0.1 K/cumm [facility] ([place]) Lymphocyte abs 1.2 0.8 - 3.3 K/cumm [facility] ([place]) Monocyte abs 0.8 0.2 - 0.8 K/cumm [facility] ([place]) Eosinophil abs 0.2 0.0 - 0.5 K/cumm [facility] ([place]) Basophil abs 0.1 0.0 - 0.1 K/cumm [facility] ([place]) Neutrophil pct 78.2 % [facility] ([place]) Comment: Interpretive Data Percent cell count reference ranges are not reported, since discordance with absolute values may lead to misinterpretation of CBC data. Current Interpretive Data was last revised on 2017. Imm gran pct 2.0 % [facility] ([place]) Comment: Interpretive Data Percent cell count reference ranges are not reported, since discordance with absolute values may lead to misinterpretation of CBC data. Current Interpretive Data was last revised on 2017. Lymphocyte pct 10.7 % [facility] ([place]) Comment: Interpretive Data Percent cell count reference ranges are not reported, since discordance with absolute values may lead to misinterpretation of CBC data. Current Interpretive Data was last revised on 2017. Monocyte pct 7.2 % [facility] ([place]) Comment: Interpretive Data Percent cell count reference ranges are not reported, since discordance with absolute values may lead to misinterpretation of CBC data. Current Interpretive Data was last revised on 2017. Eosinophil pct 1.5 % [facility] ([place]) Comment: Interpretive Data Percent cell count reference ranges are not reported, since discordance with absolute values may lead to misinterpretation of CBC data. Current Interpretive Data was last revised on 2017. Basophil pct 0.4 % [facility] ([place]) Comment: Interpretive Data Percent cell count reference ranges are not reported, since discordance with absolute values may lead to misinterpretation of CBC data. Current Interpretive Data was last revised on 2017. Blood 04/07/2024 9:18 AM PROTECTION SPECIALIST 04/07/2024 9:56 AM PROTECTION SPECIALIST us Krystal Araujo MD LAB BLOOD ORDERABLES Fi nal Result JULIETA GUERRERO ([place]) 1 [facility] [place] [address] * (ABNORMAL) CBC with auto differential (04/07/2024 9:18 AM PROTECTION SPECIALIST) WBC 11.2(H) 3.8 - 9.9 K/cumm Hgb 13.6 13.0 - 17.5 g/dL JULIETA GUERRERO ([place]) Hct 42.4 38.9 - 50.3 % [facility] ([place]) Plt 222 150 - 400 K/cumm [facility] ([place]) MPV 10.1 9.1 - 12.3 fL [facility] ([place]) RBC 4.59 4.30 - 5.80 M/cumm [facility] ([place]) MCV 92.4 81.3 - 96.4 fL [facility] ([place]) MCH 29.6 27.1 - 33.3 pg [facility] ([place]) MCHC 32.1(L) 32.3 - 35.7 g/dL [facility] ([place]) RDW CV 13.6 11.1 - 14.9 % [facility] ([place]) RDW SD 46.0 35.7 - 48.1 fL [facility] NRBC abs 0.00 0.00 - 0.01 K/cumm [facility] Blood 04/07/2024 9:18 AM PROTECTION SPECIALIST 04/07/2024 9:56 AM PROTECTION SPECIALIST us Krystal Araujo MD LAB BLOOD ORDERABLES Fi nal Result JULIETA GUERRERO ([place]) 1 [facility] [employer] [place] [address] * Phosphorus (04/07/2024 9:18 AM PROTECTION SPECIALIST) Phosphorus, pl 2.4 2.3 - 4.5 mg/dL Blood 04/07/2024 9:18 AM PROTECTION SPECIALIST 04/07/2024 9:56 AM PROTECTION SPECIALIST us Marco Antonio Niño MD LAB BLOOD ORDERABLES Final Resu lt JULIETA GUERRERO ([place]) 1 [facility] [place] [address] * Magnesium (04/07/2024 9:18 AM PROTECTION SPECIALIST) Magnesium 2.0 1.4 - 2.5 mg/dL Blood 04/07/2024 9:18 AM PROTECTION SPECIALIST 04/07/2024 9:56 AM PROTECTION SPECIALIST us Krystal Araujo MD LAB BLOOD ORDERABLES nal Result [facility] ([place]) 1 [facility] [place] [address] * (ABNORMAL) Comprehensive metabolic panel (04/07/2024 9:18 AM PROTECTION SPECIALIST) Sodium 144 135 - 145 mmol/L Potassium, pl 3.6 3.3 - 4.9 mmol/L [facility] ([place]) Chloride 107 97 - 110 mmol/L [facility] ([place]) CO2 26 22 - 32 mmol/L [facility] ([place]) Anion gap 11 2 - 15 mmol/L [facility] ([place]) BUN 20 6 - 25 mg/dL [facility] ([place]) Creatinine 1.28 0.80 - 1.30 mg/dL [facility] ([place]) Glucose 162 70 - 199 mg/dL [facility] ([place]) Comment: Interpretive Data Fasting glucose >/= 126 mg/dl is diagnostic for diabetes. ?? Fasting is defined as no caloric intake for at least 8 hours. Fasting glucose between 100 mg/dl to 125 mg/dl is diagnostic of prediabetes. In a patient with classic symptoms of hyperglycemia or hyperglycemic crisis, a random glucose >/= 200 mg/dl is diagnostic for diabetes. In the absence of unequivocal hyperglycemia, results should be confirmed by repeat testing. The classification and Diagnosis of Diabetes Diabetes Care 2021; 46: S19-S40. Current interpretive data was last revised 2022. Calcium 9.0 8.5 - 10.3 mg/dL [facility] ([place]) Bilirubin, total 0.3 0.1 - 1.2 mg/dL [facility] ([place]) Protein, pl 6.4(L) 6.5 - 8.5 g/dL [facility] ([place]) Albumin 3.5 3.5 - 5.0 g/dL [facility] ([place]) Alk phos 107 40 - 130 Units/L [facility] ([place]) ALT 12 7 - 55 Units/L [facility] ([place]) AST 12 10 - 50 Units/L [facility] ([place]) Blood 04/07/2024 9:18 AM PROTECTION SPECIALIST 04/07/2024 9:56 AM PROTECTION SPECIALIST Krystal Araujo MD LAB BLOOD ORDERABLES Fi nal Result Performing Organization Address [facility]/ZIP Co de Phone Number JULIETA GUERRERO ([place]) 1 [facility] [place] [address] * POCT glucose (04/07/2024 8:24 AM PROTECTION SPECIALIST) Glucose, POC 178 70 - 199 mg/dL Blood 04/07/2024 8:24 AM PROTECTION SPECIALIST 04/07/2024 8:24 AM PROTECTION SPECIALIST Marco Antonio Niño MD LAB POCT ORDERABLES - DEVICE Fi nal Result Performing Organization Address [facility] Co de Phone Number JULIETA GUERRERO ([place]) 1 [facility] [place] [address] * (ABNORMAL) POCT glucose (04/06/2024 8:32 PM PROTECTION SPECIALIST) Glucose, POC 279(H) 70 - 199 mg/dL Blood 04/06/2024 8:32 PM PROTECTION SPECIALIST 04/06/2024 8:32 PM PROTECTION SPECIALIST Marco Antonio Niño MD LAB POCT ORDERABLES - DEVICE Fi nal Result Performing Organization Address City/[facility] Co de Phone Number JULIETA GUERRERO ([place]) 1 [facility] [place] [address] * (ABNORMAL) POCT glucose (04/06/2024 5:18 PM PROTECTION SPECIALIST) Glucose, POC 236(H) 70 - 199 mg/dL Blood 04/06/2024 5:18 PM PROTECTION SPECIALIST 04/06/2024 5:18 PM PROTECTION SPECIALIST us Marco Antonio iNño MD LAB POCT ORDERABLES - DEVICE Fi nal Result JULIETA GUERRERO ([place]) 1 [facility] [place] [place] [address] * (ABNORMAL) Urinalysis reflex to microscopic and culture Urine (04/06/2024 4:18 PM PROTECTION SPECIALIST) Color, ur Yellow Yellow Clarity, ur Turbid(A) Clear [facility] ([place]) Specific gravity, ur 1.024 1.003 - 1.030 [facility] ([place]) pH, urine 5.0 [facility] ([place]) Comment: Interpretive Data ? Urine pH is affected by diet, medications, systemic acid-base disturbances, and renal tubular function. ??pH may affect urinary stone formation. ??For example, urine pH below 6.0 may help reduce the tendency for calcium phosphate stones and pH greater than 6.0 may reduce the tendency for uric acid stone formation. Source: [facility] [employer] [place] Current Interpretive Data was last revised on 2017 Protein, ur ql Trace Negative [facility] ([place]) Glucose, ur ql 1+(A) Negative [facility] ([place]) Ketones, ur Negative Negative [facility] ([place]) Bilirubin, ur Negative Negative [facility] ([place]) Blood, ur Negative Negative [facility] ([place]) Urobilinogen, ur <2.0 <2.0 mg/dL [facility] ([place]) Nitrite, ur Negative Negative [facility] ([place]) Leukocyte esterase, ur Negative Negative [facility] ([place]) UA reflex comment Reflex conditions for microscopic UA and culture not met. [facility] ([place]) Urine 04/06/2024 4:18 PM PROTECTION SPECIALIST 04/06/2024 4:24 PM PROTECTION SPECIALIST Krystal Araujo MD LAB MICROBIOLOGY - GENE RAL ORDERABLES Final Result JULIETA GUERRERO ([place]) 1 [facility] [place] [address] * XR Foot Left 3 or More Views (04/06/2024 3:14 PM PROTECTION SPECIALIST) Anatomical Region Laterality Modality Lower Extremities, Foot Left Computed Radiography 04/06/2024 5:50 PM PROTECTION SPECIALIST Narrative 04/06/2024 5:52 PM PROTECTION SPECIALIST EXAM DESCRIPTION: XR FOOT LEFT 3 OR MORE VIEWS REASON FOR STUDY: Foot pain, persistent post-traumatic ?? Foot pain, persistent post-traumatic ?? Comments: 12/2023: XR Left foot ?? Osseous fragment noted along the lateral margin of the tibial plafond, which ?? is concerning for displaced avulsion type fracture. ?? Subtle cortical irregularity and lucency involving the medial malleolus, ??which is concerning for a minimally displaced avulsion type fracture. ?? Multiple small osseous fragments noted inferior to the lateral malleolus, ??which may represent sequela of prior injury/trauma versus minimally displaced ??avulsion type fractures. ? TECHNIQUE: ?? Frontal, oblique, and lateral ??views of the ??left foot . COMPARISON: 12/12/2023 FINDINGS: BONES/JOINTS: ??No fracture, malalignment, or suspicious osseous lesion is identified. ?? Joint spaces are preserved. ?? SOFT TISSUES: ??Unremarkable. ?? IMPRESSION: No acute abnormality identified. ??Scattered periarticular osteophytes appear chronic. ?? THIS IS AN ELECTRONICALLY VERIFIED FINAL REPORT 04/06/2024 5:52 PM - Electronically signed by ??Xavi Driscoll M.D. AR: REILLY D: ??04/06/2024 5:52 PM T: ??04/06/2024 5:52 PM Report ID: [id number] Reading Location: ??[id number] Procedure Note Xavi Driscoll MD - 04/06/2024 EXAM DESCRIPTION: XR FOOT LEFT 3 OR MORE VIEWS REASON FOR STUDY: Foot pain, persistent post-traumatic Foot pain, persistent post-traumatic Comments: 12/2023: XR Left foot Osseous fragment noted along the lateral margin of the tibial plafond,which is concerning for displaced avulsion type fracture. Subtle cortical irregularity and lucency involving the medial malleolus, which isconcerning for a minimally displaced avulsion type fracture. Multiple small osseous fragments noted inferior to the lateral malleolus, which may represent sequela of prior injury/trauma versus minimally displaced avulsion type fractures. TECHNIQUE: Frontal, oblique, and lateral views of the left foot . COMPARISON: 12/12/2023 FINDINGS: BONES/JOINTS: No fracture, malalignment, or suspicious osseous lesion is identified. Joint spaces are preserved. SOFT TISSUES: Unremarkable. IMPRESSION: No acute abnormality identified. Scattered periarticular osteophytesappear chronic. THIS IS AN ELECTRONICALLY VERIFIED FINAL REPORT 04/06/2024 5:52 PM - Electronically signed by Xavi Driscoll M.D. AR: REILLY Report ID: [id number] Reading Location: [id number] Marco Antonio Niño MD IMG XR PROCEDURES Final Result * XR Ankle Left 3 or More Views (04/06/2024 3:14 PM PROTECTION SPECIALIST) Anatomical Region Laterality Modality Lower Extremities, Ankle Left Compute d Radiography 04/06/2024 5:47 PM PROTECTION SPECIALIST Narrative 04/06/2024 5:49 PM PROTECTION SPECIALIST EXAM DESCRIPTION: XR ANKLE LEFT 3 OR MORE VIEWS REASON FOR STUDY: Foot pain, persistent post-traumatic ?? Foot pain, persistent post-traumatic ?? Comments: 12/2023: XR Left foot ?? Osseous fragment noted along the lateral margin of the tibial plafond, which ?? is concerning for displaced avulsion type fracture. ?? Subtle cortical irregularity and lucency involving the medial malleolus, ??which is concerning for a minimally displaced avulsion type fracture. ?? Multiple small osseous fragments noted inferior to the lateral malleolus, ??which may represent sequela of prior injury/trauma versus minimally displaced ??avulsion type fractures. ? TECHNIQUE: ?? Frontal, oblique, and lateral ??views of the ??left ankle . COMPARISON: 12/12/2023 FINDINGS: BONES/JOINTS: ??Irregularity of the distal fibula appears chronic. ??No acute fracture or malalignment is seen. ?Joint spaces are preserved. ?? SOFT TISSUES: ??Diffuse swelling. ?? IMPRESSION: Irregularity of the distal fibula appears chronic. ??No acute fracture or malalignment is seen. ?? THIS IS AN ELECTRONICALLY VERIFIED FINAL REPORT 04/06/2024 5:49 PM - Electronically signed by ??Xavi Driscoll M.D. AR: REILLY D: ??04/06/2024 5:49 PM T: ??04/06/2024 5:49 PM Report ID: [id number] Reading Location: ??[id number] Procedure Note Xavi Driscoll MD - 04/06/2024 EXAM DESCRIPTION: XR ANKLE LEFT 3 OR MORE VIEWS REASON FOR STUDY: Foot pain, persistent post-traumatic Foot pain, persistent post-traumatic Comments: 12/2023: XR Left foot Osseous fragment noted along the lateral margin of the tibial plafond,which is concerning for displaced avulsion type fracture. Subtle cortical irregularity and lucency involving the medial malleolus, which isconcerning for a minimally displaced avulsion type fracture. Multiple small osseous fragments noted inferior to the lateral malleolus, which may represent sequela of prior injury/trauma versus minimally displaced avulsion type fractures. TECHNIQUE: Frontal, oblique, and lateral views of the left ankle . COMPARISON: 12/12/2023 FINDINGS: BONES/JOINTS: Irregularity of the distal fibula appears chronic. Noacute fracture or malalignment is seen. Joint spaces are preserved. SOFT TISSUES: Diffuse swelling. IMPRESSION: Irregularity of the distal fibula appears chronic. No acute fracture or malalignment is seen. THIS IS AN ELECTRONICALLY VERIFIED FINAL REPORT 04/06/2024 5:49 PM - Electronically signed by Xavi Driscoll M.D. AR: REILLY Report ID: [id number] Reading Location: [id number] Marco Antonio Niño MD IMG XR PROCEDURES Final Result * (ABNORMAL) POCT glucose (04/06/2024 12:05 PM PROTECTION SPECIALIST) Glucose, POC 207(H) 70 - 199 mg/dL Blood 04/06/2024 12:0 5 PM PROTECTION SPECIALIST 04/06/2024 12:05 PM PROTECTION SPECIALIST Marco Antonio Niño MD LAB POCT ORDERABLES - DEVICE Fi nal Result Performing Organization Address [facility] Co de Phone Number JULIETA GUERRERO ([place]) 1 [facility] [place] [address] * Blood gas, venous (04/06/2024 10:20 AM PROTECTION SPECIALIST) pH, Venous 7.42 7.32 - 7.43 PCO2, Venous 45 40 - 50 mmHg [facility] ([place]) PO2, Venous 64 mmHg [facility] ([place]) HCO3 Venous, Calculated 28 20 - 30 mmol/L [facility] ([place]) BE, venous 4 mmol/L [facility] ([place]) Comment: Interpretive Data No Reference Range Established Current Interpretive Data was last revised on 2017. Blood 04/06/2024 10:2 0 AM PROTECTION SPECIALIST 04/06/2024 10:27 AM PROTECTION SPECIALIST Marco Antonio Niño MD LAB BLOOD ORDERABLES Final Resu lt Performing Organization Address [facility] Co de Phone Number JULIETA GUERRERO ([place]) 1 [facility] [place] [address] * POCT glucose (04/06/2024 8:26 AM PROTECTION SPECIALIST) Glucose, POC 168 70 - 199 mg/dL Blood 04/06/2024 8:26 AM PROTECTION SPECIALIST 04/06/2024 8:26 AM PROTECTION SPECIALIST Marco Antonio Niño MD LAB POCT ORDERABLES - DEVICE Fi nal Result Performing Organization Address [facility] Co de Phone Number JULIETA GUERRERO ([place]) 1 [place] [address] * (ABNORMAL) eGFR (04/06/2024 2:21 AM PROTECTION SPECIALIST) eGFR 56(L) >=60 mL/min/1. 73 m2 Comment: Interpretive Data Reference Interval Normal ?>/= 90 mL/min/1.73m2 Mildly decreased* ? 60 - 89 mL/min/1.73m2 Mildly to moderately decreased ?45 - 59 mL/min/1.73m2 Moderately to severely decreased ??30 - 44 mL/min/1.73m2 Severely decreased ?15 - 29 mL/min/1.73m2 Kidney Failure ?< 15 ??mL/min/1.73m2 *Relative to young adult level Estimated glomerular filtration rate is determined by the 2020 CKD-EPI equation recommended by the National Kidney Foundation (A Unifying Approach to GFR Estimation: Recommendations of the NKF-ASK Task Force on Reassessing the Inclusion of Race in Diagnosing Kidney Disease, JASN 2020). The CKD-EPI equation should not be used for patients with unstable renal function and has not been validated in children and those over 70. Current interpretive data was last reviewed 2021. Blood 04/06/2024 2:21 AM PROTECTION SPECIALIST 04/06/2024 3:51 AM PROTECTION SPECIALIST us Krystal Araujo MD LAB BLOOD ORDERABLES Fi nal Result JULIETA GUERRERO ([place]) 1 [facility] [place] [address] * (ABNORMAL) Differential, auto (04/06/2024 2:21 AM PROTECTION SPECIALIST) Neutrophil abs 8.3(H) 1.5 - 6.5 K/cumm Imm gran abs 0.2(H) 0.0 - 0.1 K/cumm [facility] ([place]) Lymphocyte abs 1.4 0.8 - 3.3 K/cumm [facility] ([place]) Monocyte abs 0.8 0.2 - 0.8 K/cumm [facility] ([place]) Eosinophil abs 0.2 0.0 - 0.5 K/cumm [facility] ([place]) Basophil abs 0.1 0.0 - 0.1 K/cumm [facility] ([place]) Neutrophil pct 76.0 % [facility] ([place]) Comment: Interpretive Data Percent cell count reference ranges are not reported, since discordance with absolute values may lead to misinterpretation of CBC data. Current Interpretive Data was last revised on 2017. Imm gran pct 1.7 % [facility] ([place]) Comment: Interpretive Data Percent cell count reference ranges are not reported, since discordance with absolute values may lead to misinterpretation of CBC data. Current Interpretive Data was last revised on 2017. Lymphocyte pct 12.5 % [facility] ([place]) Comment: Interpretive Data Percent cell count reference ranges are not reported, since discordance with absolute values may lead to misinterpretation of CBC data. Current Interpretive Data was last revised on 2017. Monocyte pct 7.7 % [facility] ([place]) Comment: Interpretive Data Percent cell count reference ranges are not reported, since discordance with absolute values may lead to misinterpretation of CBC data. Current Interpretive Data was last revised on 2017. Eosinophil pct 1.6 % [facility] ([place]) Comment: Interpretive Data Percent cell count reference ranges are not reported, since discordance with absolute values may lead to misinterpretation of CBC data. Current Interpretive Data was last revised on 2017. Basophil pct 0.5 % [facility] ([place]) Comment: Interpretive Data Percent cell count reference ranges are not reported, since discordance with absolute values may lead to misinterpretation of CBC data. Current Interpretive Data was last revised on 2017. Blood 04/06/2024 2:21 AM PROTECTION SPECIALIST 04/06/2024 3:50 AM PROTECTION SPECIALIST us Krystal Araujo MD LAB BLOOD ORDERABLES Fi nal Result JULIETA [facility] ([place]) 1 [facility] [place] [address] * (ABNORMAL) CBC with auto differential (04/06/2024 2:21 AM PROTECTION SPECIALIST) WBC 11.0(H) 3.8 - 9.9 K/cumm Hgb 13.4 13.0 - 17.5 g/dL [facility] Hct 41.4 38.9 - 50.3 % [facility] Plt 216 150 - 400 K/cumm [facility] ([place]) MPV 10.5 9.1 - 12.3 fL [facility] RBC 4.45 4.30 - 5.80 M/cumm [facility] ([place]) MCV 93.0 81.3 - 96.4 fL [facility] MCH 30.1 27.1 - 33.3 pg [facility] MCHC 32.4 32.3 - 35.7 g/dL [facility] RDW CV 13.7 11.1 - 14.9 % [facility] RDW SD 46.5 35.7 - 48.1 fL [facility] NRBC abs 0.00 0.00 - 0.01 K/cumm [facility] Blood 04/06/2024 2:21 AM PROTECTION SPECIALIST 04/06/2024 3:50 AM PROTECTION SPECIALIST us Krystal Araujo MD LAB BLOOD ORDERABLES Fi nal Result Performing Organization Address City/[facility]/ZIP Co de Phone Number [facility] 1 [facility] [place] [address] * Magnesium (04/06/2024 2:21 AM PROTECTION SPECIALIST) Magnesium 2.2 1.4 - 2.5 mg/dL Blood 04/06/2024 2:21 AM PROTECTION SPECIALIST 04/06/2024 3:51 AM PROTECTION SPECIALIST Krystal Araujo MD LAB BLOOD ORDERABLES Fi nal Result Performing Organization Address City/[facility]/ZIP Co de Phone Number [facility] ([place]) 1 [facility] [place] [address] * (ABNORMAL) Comprehensive metabolic panel (04/06/2024 2:21 AM PROTECTION SPECIALIST) Sodium 143 135 - 145 mmol/L Potassium, pl 3.4 3.3 - 4.9 mmol/L [facility] ([place]) Chloride 106 97 - 110 mmol/L [facility] ([place]) CO2 28 22 - 32 mmol/L [facility] ([place]) Anion gap 10 2 - 15 mmol/L [facility] ([place]) BUN 22 6 - 25 mg/dL [facility] ([place]) Creatinine 1.36(H) 0.80 - 1.30 mg/dL [facility] ([place]) Glucose 180 70 - 199 mg/dL [facility] ([place]) Comment: Interpretive Data Fasting glucose >/= 126 mg/dl is diagnostic for diabetes. ?? Fasting is defined as no caloric intake for at least 8 hours. Fasting glucose between 100 mg/dl to 125 mg/dl is diagnostic of prediabetes. In a patient with classic symptoms of hyperglycemia or hyperglycemic crisis, a random glucose >/= 200 mg/dl is diagnostic for diabetes. In the absence of unequivocal hyperglycemia, results should be confirmed by repeat testing. The classification and Diagnosis of Diabetes Diabetes Care 202; 46: S19-S40. Current interpretive data was last revised 2022. Calcium 8.8 8.5 - 10.3 mg/dL [facility] ([place]) Bilirubin, total 0.2 0.1 - 1.2 mg/dL [facility] ([place]) Protein, pl 6.5 6.5 - 8.5 g/dL [facility] ([place]) Albumin 3.8 3.5 - 5.0 g/dL [facility] ([place]) Alk phos 118 40 - 130 Units/L [facility]) ALT 12 7 - 55 Units/L [facility] ([place]) AST 13 10 - 50 Units/L [facility] ([place]) Blood 04/06/2024 2:21 AM PROTECTION SPECIALIST 04/06/2024 3:51 AM PROTECTION SPECIALIST us Krystal Araujo MD LAB BLOOD ORDERABLES Fi nal Result JULIETA GUERRERO ([place]) 1 [facility] [place] [address] * POCT glucose (04/06/2024 1:58 AM PROTECTION SPECIALIST) Glucose, POC 186 70 - 199 mg/dL Blood 04/06/2024 1:58 AM PROTECTION SPECIALIST 04/06/2024 1:58 AM PROTECTION SPECIALIST Marco Antonio Niño MD LAB POCT ORDERABLES - DEVICE Fi nal Result Performing Organization Address City/[facility]/ZIP Co de Phone Number JULIETA GUERRERO ([place]) 1 [facility] [place] [address] * (ABNORMAL) POCT glucose (04/05/2024 8:47 PM PROTECTION SPECIALIST) Glucose, POC 200(H) 70 - 199 mg/dL Blood 04/05/2024 8:47 PM PROTECTION SPECIALIST 04/05/2024 8:47 PM PROTECTION SPECIALIST us Marco Antonio Niño MD LAB POCT ORDERABLES - DEVICE Fi nal Result Performing Organization Address City/[facility]/ZIP Co de Phone Number [facility] ([place]) 1 [facility] [place] [address] * POCT glucose (04/05/2024 5:20 PM PROTECTION SPECIALIST) Glucose, POC 174 70 - 199 mg/dL Blood 04/05/2024 5:20 PM PROTECTION SPECIALIST 04/05/2024 5:20 PM PROTECTION SPECIALIST us Marco Antonio Niño MD LAB POCT ORDERABLES - DEVICE Fi nal Result [facility] ([place]) 1 [facility] [place] [address] * ECG 12 lead (04/05/2024 2:40 PM PROTECTION SPECIALIST) 04/05/2024 2:40 PM PROTECTION SPECIALIST Narrative [facility] - 04/05/2024 3:45 PM PROTECTION SPECIALIST Vent Rate: 67 bpm RR Interval: 890 msec [place] Interval: 134 msec QRS Duration: 102 msec QT Interval: 446 msec QTC Interval: 461 msec P-R-T [place]: -49 - -22 - 97 degrees IMPRESSION: SINUS RHYTHM BORDERLINE LEFT AXIS DEVIATION [QRS AXIS < -20] POSSIBLE LEFT VENTRICULAR HYPERTROPHY [VOLTAGE CRITERIA PLUS LAE OR QRS WIDENING] MODERATE T-WAVE ABNORMALITY, CONSIDER LATERAL ISCHEMIA [-0.1+ mV T WAVE IN I/aVL/V5/V6] ABNORMAL ECG NO CHANGE FROM PREVIOUS TRACING NOTED Electronically Signed By: Juarez Thornton MD Krystal Araujo MD ECG ORDERABLES Final R esult Performing Organization Address City/[facility] Co de Phone Number [facility] * POCT glucose (04/05/2024 1:26 PM PROTECTION SPECIALIST) Glucose, POC 159 70 - 199 mg/dL Blood 04/05/2024 1:26 PM PROTECTION SPECIALIST 04/05/2024 1:26 PM PROTECTION SPECIALIST Marco Antonio Niño MD LAB POCT ORDERABLES - DEVICE Fi nal Result Performing Organization Address City/[facility] Co de Phone Number JULIETA [address] Department of Laboratories [place] [id number] * NM MPI SPECT (Rest and/or Stress) Multiple Studies (04/05/2024 1:22 PM PROTECTION SPECIALIST) Anatomical Region Laterality Modality Body N/A Nuclear Medicine 04/05/2024 1:30 PM PROTECTION SPECIALIST Narrative 04/05/2024 1:36 PM PROTECTION SPECIALIST EXAM DESCRIPTION: ?? NM MPI SPECT (REST AND/OR STRESS) MULTIPLE STUDIES REASON FOR STUDY: Chest pain. RADIOPHARMACEUTICAL: Rest: ??10.2 ??mCi Tc-99m tetrofosmin Pharmacologic Stress: ??30 ??mCi Tc-99m tetrofosmin Injection site: ??Left hand ??IV site TECHNIQUE: Standard myocardial perfusion SPECT images were obtained after resting tracer injection. Subsequently, an intravenous infusion of 0.4 mg Lexiscan was performed. ??Standard myocardial perfusion images were obtained after tracer injection at the peak effect of the drug. COMPARISON: Myocardial perfusion study 10/29/2022 FINDINGS: Image quality is adequate at rest and adequate at stress. Small area of mildly reduced perfusion in the mid inferolateral region of the left ventricle is unchanged when compared to the prior study. ??Perfusion is improved on the stress images. ??No reversibility. The left ventricular cavity size is ??normal . Gated tomographic images demonstrate normal wall motion and wall thickening with a left ventricular ejection fraction of ??63 % poststress (normal >45%). ?? IMPRESSION: No scintigraphic evidence of myocardial ischemia. ??Small area of mildly reduced perfusion in the mid inferolateral region of the left ventricle with perfusion worse at rest. ??This is grossly similar to the prior study. ??No reversibility to suggest ischemia. ??This is favored to be artifactual. Normal left ventricular ejection fraction of ??63 % poststress. Normal wall motion. ?? THIS IS AN ELECTRONICALLY VERIFIED FINAL REPORT 04/05/2024 1:36 PM - Electronically signed by ??Ovidio Rae M.D. LB: [place] D: ??04/05/2024 1:36 PM T: ??04/05/2024 1:36 PM Report ID: [id number] Reading Location: ??[id number] Procedure Note Ovidio Rae MD - 04/05/2024 EXAM DESCRIPTION: NM MPI SPECT (REST AND/OR STRESS) MULTIPLE STUDIES REASON FOR STUDY: Chest pain. RADIOPHARMACEUTICAL: Rest: 10.2 mCi Tc-99m tetrofosmin Pharmacologic Stress: 30 mCi Tc-99m tetrofosmin Injection site: Left hand IV site TECHNIQUE: Standard myocardial perfusion SPECT images were obtained after resting tracer injection. Subsequently, an intravenous infusion of 0.4 mg Lexiscan was performed. Standard myocardial perfusion images wereobtained after tracer injection at the peak effect of the drug. COMPARISON: Myocardial perfusion study 10/29/2022 FINDINGS: Image quality is adequate at rest and adequate at stress. Small area of mildly reduced perfusion in the mid inferolateral region ofthe left ventricle is unchanged when compared to the prior study. Perfusionis improved on the stress images. No reversibility. The left ventricular cavity size is normal . Gated tomographic images demonstrate normal wall motion and wallthickening with a left ventricular ejection fraction of 63 % poststress (normal>45%). IMPRESSION: No scintigraphic evidence of myocardial ischemia. Small area of mildly reduced perfusion in the mid inferolateral region of the left ventriclewith perfusion worse at rest. This is grossly similar to the prior study. No reversibility to suggest ischemia. This is favored to be artifactual. Normal left ventricular ejection fraction of 63 % poststress. Normal wall motion. THIS IS AN ELECTRONICALLY VERIFIED FINAL REPORT 04/05/2024 1:36 PM - Electronically signed by Ovidio Rae M.D. LB: ROLANDO Report ID: [id number] Reading Location: [place] [address] Marco Antonio Niño MD [facility] PROCEDURES Final Result * Stress Test for Myocardial Perfusion (04/05/2024 1:22 PM PROTECTION SPECIALIST) Anatomical Region Laterality Modality Nuclear Medicine 04/05/2024 11:4 5 AM PROTECTION SPECIALIST Narrative 04/05/2024 4:12 PM PROTECTION SPECIALIST [address] [address] [employer] Report Patient Name: TANIA VIZCARRA R : 1950 Study Date: 04/05/2024 11:45:00 AM Gender: M Tech: ??Location: [id number] Ref Provider: MARCO ANTONIO NIÑO Height(Cm): 178 BSA: 3.62 Weight(Kg): 266 Heart Rate: 127 Order Provider: MARCO ANTONIO NIÑO ?? PROCEDURES: Pharmacologic SPECT Report.: Myocardial perfusion imaging with Sestamibi SPECT at rest and post regadenoson (Lexiscan) infusion. ?? INDICATIONS: Chest Pain. ?? FINDINGS: Procedure Data: ??Resting HR 66 bpm ??Peak HR: 82 bpm ??Predicted Maximal HR 149 bpm ??Target HR: 127 bpm ??Percent Max Predicted HR Achieved: 55.03 % ??Baseline BP: 153/84 mmHg ??Peak BP: 167/93 mmHg ??Exercise Time: 00:10 Medications: Free Text. Performed By: Supervising Physician: The Supervising Physician is karine delgado. Reason for Termination: Lexiscan protocol complete. Resting ECG: Low atrial rhythm at 65 beats per minute, leftward axis. Post Pharm ECG: No diagnostic ST changes. Arrhythmia: No arrhythmias seen. Cardiac Symptoms With Stress: Symptoms with stress were None. Exam Interpreted: Read by . ?? CONCLUSIONS: 1. Negative Lexiscan pharmacologic stress test for chest pain or EKG changes. 2. Nuclear images are pending and they will be reported separately. Electronically Signed By: Dr Devin Linton 04/05/2024 4:11:19 PM PROTECTION SPECIALIST Procedure Note Devin Linton MD - 04/05/[address] [address] Lexiscan Report Patient Name: TANIA VIZCARRA R : 1950 Study Date: 04/05/2024 11:45:00 AM Gender: M Tech: Location: [place] [address] Ref Provider: MARCO ANTONIO NIÑO Height(Cm): 178 BSA: 3.62 Weight(Kg): 266 Heart Rate: 127 Order Provider: MARCO ANTONIO NIÑO PROCEDURES: Pharmacologic SPECT Report.: Myocardial perfusion imaging with Sestamibi SPECT at rest and postregadenoson (Lexiscan) infusion. INDICATIONS: Chest Pain. FINDINGS: Procedure Data: Resting HR 66 bpm Peak HR: 82 bpm Predicted Maximal HR 149 bpm Target HR: 127 bpm Percent Max Predicted HR Achieved: 55.03 % Baseline BP: 153/84 mmHg Peak BP: 167/93 mmHg Exercise Time: 00:10 Medications: Free Text. Performed By: Supervising Physician: The Supervising Physician is karine delgado. Reason for Termination: Lexiscan protocol complete. Resting ECG: Low atrial rhythm at 65 beats per minute, leftward axis. Post Pharm ECG: No diagnostic ST changes. Arrhythmia: No arrhythmias seen. Cardiac Symptoms With Stress: Symptoms with stress were None. Exam Interpreted: Read by . CONCLUSIONS: 1. Negative Lexiscan pharmacologic stress test for chest pain or EKGchanges. 2. Nuclear images are pending and they will be reported separately. Electronically Signed By: Dr Devin Linton 04/05/2024 4:11:19 PM PROTECTION SPECIALIST Marco Antonio Niño MD CV STRESS PROCEDURES Final Resu lt * (ABNORMAL) POCT glucose (04/05/2024 8:33 AM PROTECTION SPECIALIST) Glucose, POC 200(H) 70 - 199 mg/dL Blood 04/05/2024 8:33 AM PROTECTION SPECIALIST 04/05/2024 8:33 AM PROTECTION SPECIALIST Marco Antonio Niño MD LAB POCT ORDERABLES - DEVICE Fi nal Result [facility] [place] 1 [facility] [place] [address] * (ABNORMAL) eGFR (04/05/2024 6:48 AM PROTECTION SPECIALIST) eGFR 51(L) >=60 mL/min/1. 73 m2 Comment: Interpretive Data Reference Interval Normal ?>/= 90 mL/min/1.73m2 Mildly decreased* ? 60 - 89 mL/min/1.73m2 Mildly to moderately decreased ?45 - 59 mL/min/1.73m2 Moderately to severely decreased ??30 - 44 mL/min/1.73m2 Severely decreased ?15 - 29 mL/min/1.73m2 Kidney Failure ?< 15 ??mL/min/1.73m2 *Relative to young adult level Estimated glomerular filtration rate is determined by the 2020 CKD-EPI equation recommended by the National Kidney Foundation (A Unifying Approach to GFR Estimation: Recommendations of the NKF-ASK Task Force on Reassessing the Inclusion of Race in Diagnosing Kidney Disease, JASN 2020). The CKD-EPI equation should not be used for patients with unstable renal function and has not been validated in children and those over 70. Current interpretive data was last reviewed 2021. Blood 04/05/2024 6:48 AM PROTECTION SPECIALIST 04/05/2024 6:52 AM PROTECTION SPECIALIST us Krystal Araujo MD LAB BLOOD ORDERABLES Fi nal Result JULIETA [facility] ([place]) 1 [facility] [place] [address] * (ABNORMAL) Differential, auto (04/05/2024 6:48 AM PROTECTION SPECIALIST) Neutrophil abs 8.2(H) 1.5 - 6.5 K/cumm Imm gran abs 0.2(H) 0.0 - 0.1 K/cumm [facility] ([place]) Lymphocyte abs 1.4 0.8 - 3.3 K/cumm [facility] ([place]) Monocyte abs 0.9(H) 0.2 - 0.8 K/cumm [facility] ([place]) Eosinophil abs 0.1 0.0 - 0.5 K/cumm [facility] ([place]) Basophil abs 0.1 0.0 - 0.1 K/cumm [facility] ([place]) Neutrophil pct 75.7 % [facility] ([place]) Comment: Interpretive Data Percent cell count reference ranges are not reported, since discordance with absolute values may lead to misinterpretation of CBC data. Current Interpretive Data was last revised on 2017. Imm gran pct 1.6 % [facility] ([place]) Comment: Interpretive Data Percent cell count reference ranges are not reported, since discordance with absolute values may lead to misinterpretation of CBC data. Current Interpretive Data was last revised on 2017. Lymphocyte pct 12.9 % [facility] ([place]) Comment: Interpretive Data Percent cell count reference ranges are not reported, since discordance with absolute values may lead to misinterpretation of CBC data. Current Interpretive Data was last revised on 2017. Monocyte pct 8.1 % [facility] ([place]) Comment: Interpretive Data Percent cell count reference ranges are not reported, since discordance with absolute values may lead to misinterpretation of CBC data. Current Interpretive Data was last revised on 2017. Eosinophil pct 1.2 % [facility]) Comment: Interpretive Data Percent cell count reference ranges are not reported, since discordance with absolute values may lead to misinterpretation of CBC data. Current Interpretive Data was last revised on 2017. Basophil pct 0.5 % [facility] ([place]) Comment: Interpretive Data Percent cell count reference ranges are not reported, since discordance with absolute values may lead to misinterpretation of CBC data. Current Interpretive Data was last revised on 2017. Blood 04/05/2024 6:48 AM PROTECTION SPECIALIST 04/05/2024 6:52 AM PROTECTION SPECIALIST us Krystal Araujo MD LAB BLOOD ORDERABLES Fi nal Result JULIETA YOLANDA ([place]) 1 [facility] [place] [address] * (ABNORMAL) CBC with auto differential (04/05/2024 6:48 AM PROTECTION SPECIALIST) WBC 10.8(H) 3.8 - 9.9 K/cumm Hgb 14.3 13.0 - 17.5 g/dL [facility] ([place]) Hct 42.8 38.9 - 50.3 % [facility] ([place]) Plt 198 150 - 400 K/cumm [facility] ([place]) MPV 9.8 9.1 - 12.3 fL [facility] ([place]) RBC 4.72 4.30 - 5.80 M/cumm [facility] ([place]) MCV 90.7 81.3 - 96.4 fL [facility] ([place]) MCH 30.3 27.1 - 33.3 pg [facility] ([place]) MCHC 33.4 32.3 - 35.7 g/dL [facility] ([place]) RDW CV 13.5 11.1 - 14.9 % [facility] ([place]) RDW SD 45.1 35.7 - 48.1 fL [facility] ([place]) NRBC abs 0.00 0.00 - 0.01 K/cumm [facility] ([place]) Blood 04/05/2024 6:48 AM PROTECTION SPECIALIST 04/05/2024 6:52 AM PROTECTION SPECIALIST us Krystal Araujo MD LAB BLOOD ORDERABLES Fi nal Result Performing Organization Address City/[facility]/ZIP Co de Phone Number JULIETA GUERRERO ([place]) 1 [facility] [place] [address] * Magnesium (04/05/2024 6:48 AM PROTECTION SPECIALIST) Magnesium 1.6 1.4 - 2.5 mg/dL Blood 04/05/2024 6:48 AM PROTECTION SPECIALIST 04/05/2024 6:52 AM PROTECTION SPECIALIST Krystal Araujo MD LAB BLOOD ORDERABLES Fi nal Result JULIETA [facility] ([place]) 1 [facility] [place] [address] * (ABNORMAL) Comprehensive metabolic panel (04/05/2024 6:48 AM PROTECTION SPECIALIST) Sodium 142 135 - 145 mmol/L Potassium, pl 3.2(L) 3.3 - 4.9 mmol/L [facility] ([place]) Chloride 105 97 - 110 mmol/L [facility] ([place]) CO2 27 22 - 32 mmol/L [facility] ([place]) Anion gap 9 2 - 15 mmol/L [facility] ([place]) BUN 24 6 - 25 mg/dL [facility] ([place]) Creatinine 1.46(H) 0.80 - 1.30 mg/dL [facility] ([place]) Glucose 173 70 - 199 mg/dL [facility] ([place]) Comment: Interpretive Data Fasting glucose >/= 126 mg/dl is diagnostic for diabetes. ?? Fasting is defined as no caloric intake for at least 8 hours. Fasting glucose between 100 mg/dl to 125 mg/dl is diagnostic of prediabetes. In a patient with classic symptoms of hyperglycemia or hyperglycemic crisis, a random glucose >/= 200 mg/dl is diagnostic for diabetes. In the absence of unequivocal hyperglycemia, results should be confirmed by repeat testing. The classification and Diagnosis of Diabetes Diabetes Care 2021; 46: S19-S40. Current interpretive data was last revised 2022. Calcium 8.6 8.5 - 10.3 mg/dL [facility] ([place]) Bilirubin, total <0.2 0.1 - 1.2 mg/dL [facility] ([place]) Protein, pl 6.1(L) 6.5 - 8.5 g/dL [facility] ([place]) Albumin 3.5 3.5 - 5.0 g/dL [facility] ([place]) Alk phos 104 40 - 130 Units/L [facility] ([place] ALT 13 7 - 55 Units/L [facility] ([place]) AST 11 10 - 50 Units/L [facility] ([place]) Blood 04/05/2024 6:48 AM PROTECTION SPECIALIST 04/05/2024 6:52 AM PROTECTION SPECIALIST us Krystal Araujo MD LAB BLOOD ORDERABLES Fi nal Result JULIETA [facility] ([place]) 1 [facility] [place] [address] * POCT glucose (04/05/2024 2:22 AM PROTECTION SPECIALIST) Glucose, POC 176 70 - 199 mg/dL Blood 04/05/2024 2:22 AM PROTECTION SPECIALIST 04/05/2024 2:22 AM PROTECTION SPECIALIST us Ingrid Henry MD LAB POCT ORDERABLES - DEV ICE Final Result Performing Organization Address [facility] Co de Phone Number JULIETA [facility] ([place]) 1 [place] [address] * (ABNORMAL) Troponin T high-sensitivity 4-hour (04/04/2024 11:16 PM PROTECTION SPECIALIST) Trop T hs 30(H) <=22 ng/L Comment: Interpretive Data For further hscTnT resources including the diagnostic algorithm and an aid in interpretation, copy and paste this link: https://nrl.testcatalog.org/show/hsTrop Current Interpretive Data last revised 2020. Trop T hs delta See Comment ng/L CE KARIN [facility] ([place]) Comment:Inappropriate collec tion time to report a delta. Trop T hs pct delta See Comment % JULIETA GUERR[facility] ([place]) Comment:Inappropriate collec tion time to report a delta. Trop T hs interp See Comment C JACINTO GUERR[facility] ([place]) Comment:Inappropriate collec tion time to report a delta. Blood 04/04/2024 11:1 6 PM PROTECTION SPECIALIST 04/04/2024 11:26 PM PROTECTION SPECIALIST us Nikolas Doty MD LAB BLOOD ORDERABLES Final Res ult JULIETA [facility] ([place]) 1 [facility] [place] [address] * (ABNORMAL) POCT glucose (04/04/2024 9:25 PM PROTECTION SPECIALIST) Pathologist [facility] Glucose, POC 237(H) 70 - 199 mg/dL Blood 04/04/2024 9:25 PM PROTECTION SPECIALIST 04/04/2024 9:25 PM PROTECTION SPECIALIST us Ingrid Henry MD LAB POCT ORDERABLES - DEV ICE Final Result Performing Organization Address [facility] Co de Phone Number JULIETA GUERRERO ([place]) 1 [facility] [place] [place] [address] * (ABNORMAL) Troponin T high-sensitivity 2-hour (04/04/2024 7:30 PM PROTECTION SPECIALIST) [facility] [address] Trop T hs 31(H) <=22 ng/L Comment: Interpretive Data For further hscTnT resources including the diagnostic algorithm and an aid in interpretation, copy and paste this link: https://nrl.testcatalog.org/show/hsTrop Current Interpretive Data last revised 2020. Trop T hs delta -2 ng/L [facility] ([place]) Trop T hs interp Insignificant [facility] ([place]) Blood 04/04/2024 7:30 PM PROTECTION SPECIALIST 04/04/2024 7:33 PM PROTECTION SPECIALIST us Nikolas Doty MD LAB BLOOD ORDERABLES Final Res ult Performing Organization Address City/[facility]/ZIP Co de Phone Number JULIETA GUERRERO ([place]) 1 [facility] [place] [place] [address] * (ABNORMAL) eGFR (04/04/2024 7:30 PM PROTECTION SPECIALIST) [facility] [address] eGFR 42(L) >=60 mL/min/1. 73 m2 Comment: Interpretive Data Reference Interval Normal ?>/= 90 mL/min/1.73m2 Mildly decreased* ? 60 - 89 mL/min/1.73m2 Mildly to moderately decreased ?45 - 59 mL/min/1.73m2 Moderately to severely decreased ??30 - 44 mL/min/1.73m2 Severely decreased ?15 - 29 mL/min/1.73m2 Kidney Failure ?< 15 ??mL/min/1.73m2 *Relative to young adult level Estimated glomerular filtration rate is determined by the 2020 CKD-EPI equation recommended by the National Kidney Foundation (A Unifying Approach to GFR Estimation: Recommendations of the NKF-ASK Task Force on Reassessing the Inclusion of Race in Diagnosing Kidney Disease, JASN 2020). The CKD-EPI equation should not be used for patients with unstable renal function and has not been validated in children and those over 70. Current interpretive data was last reviewed 2021. Blood 04/04/2024 7:30 PM PROTECTION SPECIALIST 04/04/2024 7:33 PM PROTECTION SPECIALIST us Nikolas Doty MD LAB BLOOD ORDERABLES Final Res ult [facility] 1 [facility] [place] [address] * (ABNORMAL) CBC without differential (04/04/2024 7:30 PM PROTECTION SPECIALIST) WBC 11.8(H) 3.8 - 9.9 K/cumm Hgb 12.9(L) 13.0 - 17.5 g/dL [facility] ([place]) Hct 39.2 38.9 - 50.3 % [facility] ([place]) Plt 215 150 - 400 K/cumm [facility] ([place]) MPV 10.1 9.1 - 12.3 fL [facility] ([place]) RBC 4.29(L) 4.30 - 5.80 M/cumm [facility] ([place]) MCV 91.4 81.3 - 96.4 fL [facility] ([place]) MCH 30.1 27.1 - 33.3 pg [facility] ([place]) MCHC 32.9 32.3 - 35.7 g/dL JULIETA GUERRERO ([place]) RDW CV 13.7 11.1 - 14.9 % JULIETA [facility] ([place]) RDW SD 45.4 35.7 - 48.1 fL JULIETA GU[facility] ([place]) NRBC abs 0.00 0.00 - 0.01 K/cumm JULIETA [facility] ([place]) Blood 04/04/2024 7:30 PM PROTECTION SPECIALIST 04/04/2024 7:33 PM PROTECTION SPECIALIST Narrative JULEITA GU[facility]ERO ([place]) - 04/04/2024 7:35 PM PROTECTION SPECIALIST Baseline prior to enoxaparin initiation. Nikolas Doty MD LAB BLOOD ORDERABLES Final Res ult Performing Organization Address City/[facility] Co de Phone Number JULIETA GUERRERO ([place]) 1 [facility] [place] [address] * (ABNORMAL) Creatinine (04/04/2024 7:30 PM PROTECTION SPECIALIST) Creatinine 1.71(H) 0.80 - 1.30 mg/dL Blood 04/04/2024 7:30 PM PROTECTION SPECIALIST 04/04/2024 7:33 PM PROTECTION SPECIALIST Narrative JULIETA GUERRERO ([place]) - 04/04/2024 8:05 PM PROTECTION SPECIALIST Baseline prior to enoxaparin initiation. Nikolas Doty MD LAB BLOOD ORDERABLES Final Res ult Performing Organization Address City/[facility]/ZIP Co de Phone Number JULIETA GUERRERO ([place]) 1 [facility] [place] [place] [address] * (ABNORMAL) POCT glucose (04/04/2024 7:25 PM PROTECTION SPECIALIST) Glucose, POC 214(H) 70 - 199 mg/dL Blood 04/04/2024 7:25 PM PROTECTION SPECIALIST 04/04/2024 7:25 PM PROTECTION SPECIALIST Ingrid Henry MD LAB POCT ORDERABLES - DEV ICE Final Result Performing Organization Address [facility] de Phone Number [facility]A [facility] ([place]) 1 [facility] [place] [address] * (ABNORMAL) Troponin T high-sensitivity series (baseline, 2hr, 4hr, 6hr) (04/04/2024 5:57 PM PROTECTION SPECIALIST) Trop T hs 33(H) <=22 ng/L Comment: Interpretive Data For further hscTnT resources including the diagnostic algorithm and an aid in interpretation, copy and paste this link: https://nrl.testcatalog.org/show/hsTrop Current Interpretive Data last revised 2020. Blood 04/04/2024 5:57 PM PROTECTION SPECIALIST 04/04/2024 6:03 PM PROTECTION SPECIALIST us Nikolas Doty MD LAB BLOOD ORDERABLES Final Res ult Performing Organization Address [facility] de Phone Number JULIETA GUERRERO ([place]) 1 [facility] [place] [address] * (ABNORMAL) eGFR (04/04/2024 5:57 PM PROTECTION SPECIALIST) Pathologist [facility] eGFR 40(L) >=60 mL/min/1. 73 m2 Comment: Interpretive Data Reference Interval Normal ?>/= 90 mL/min/1.73m2 Mildly decreased* ? 60 - 89 mL/min/1.73m2 Mildly to moderately decreased ?45 - 59 mL/min/1.73m2 Moderately to severely decreased ??30 - 44 mL/min/1.73m2 Severely decreased ?15 - 29 mL/min/1.73m2 Kidney Failure ?< 15 ??mL/min/1.73m2 *Relative to young adult level Estimated glomerular filtration rate is determined by the 2020 CKD-EPI equation recommended by the National Kidney Foundation (A Unifying Approach to GFR Estimation: Recommendations of the NKF-ASK Task Force on Reassessing the Inclusion of Race in Diagnosing Kidney Disease, JASN 2020). The CKD-EPI equation should not be used for patients with unstable renal function and has not been validated in children and those over 70. Current interpretive data was last reviewed 2021. Blood 04/04/2024 5:57 PM PROTECTION SPECIALIST 04/04/2024 6:03 PM PROTECTION SPECIALIST us Nikolas Doty MD LAB BLOOD ORDERABLES Final Res ult JUL[facility]ETA [facility] 1 [facility] [place] [address] * (ABNORMAL) Differential, auto (04/04/2024 5:57 PM PROTECTION SPECIALIST) Neutrophil abs 9.7(H) 1.5 - 6.5 K/cumm Imm gran abs 0.2(H) 0.0 - 0.1 K/cumm [facility]) Lymphocyte abs 1.5 0.8 - 3.3 K/cumm [facility]) Monocyte abs 1.1(H) 0.2 - 0.8 K/cumm [facility] ([place]) Eosinophil abs 0.1 0.0 - 0.5 K/cumm [facility] ([place]) Basophil abs 0.1 0.0 - 0.1 K/cumm [facility] ([place]) Neutrophil pct 76.9 % [facility] Comment: Interpretive Data Percent cell count reference ranges are not reported, since discordance with absolute values may lead to misinterpretation of CBC data. Current Interpretive Data was last revised on 2017. Imm gran pct 1.7 % [facility]) Comment: Interpretive Data Percent cell count reference ranges are not reported, since discordance with absolute values may lead to misinterpretation of CBC data. Current Interpretive Data was last revised on 2017. Lymphocyte pct 11.5 % [facility] Comment: Interpretive Data Percent cell count reference ranges are not reported, since discordance with absolute values may lead to misinterpretation of CBC data. Current Interpretive Data was last revised on 2017. Monocyte pct 8.5 % [facility] ([place]) Comment: Interpretive Data Percent cell count reference ranges are not reported, since discordance with absolute values may lead to misinterpretation of CBC data. Current Interpretive Data was last revised on 2017. Eosinophil pct 1.0 % [facility] ([place]) Comment: Interpretive Data Percent cell count reference ranges are not reported, since discordance with absolute values may lead to misinterpretation of CBC data. Current Interpretive Data was last revised on 2017. Basophil pct 0.4 % [facility] ([place]) Comment: Interpretive Data Percent cell count reference ranges are not reported, since discordance with absolute values may lead to misinterpretation of CBC data. Current Interpretive Data was last revised on 2017. Blood 04/04/2024 5:57 PM PROTECTION SPECIALIST 04/04/2024 6:03 PM PROTECTION SPECIALIST us Nikolas Doty MD LAB BLOOD ORDERABLES Final Res ult [facility] ([place]) 1 [facility] Department of Laboratories [place], [place] [id number] * (ABNORMAL) Pro B-type natriuretic peptide (04/04/2024 5:57 PM PROTECTION SPECIALIST) NT-proBNP 362(H) <=300 pg/mL Comment: Interpretive Comments: A. Dyspnea in Acute Care Setting All Ages: ?< 300 pg/ml, acute heart failure unlikely. < 50 yrs: ?300 - 450 pg/ml, further investigation warranted. ? > 450 pg/ml, acute heart failure likely. 50 - 74 yrs: ? 300 - 900 pg/ml, further investigation warranted. ? > 900 pg/ml, acute heart failure likely . > or = 75 yrs: ? 450 - 1800 pg/ml, further investigation warranted. ? > 1800 pg/ml, acute heart failure likely. B. Non-acute Setting < 75 yrs ? < 125 pg/ml, rules out heart failure. ? > or = 125 pg/ml, further investigation warranted. > or = 75 yrs ?< 450 pg/ml, rules out heart failure. ? > or = 450 pg/ml, further investigation warranted. - Knowledge of each individual patient's NT-proBNP range may be more useful than using similar cut-points for every patient. Please note that marked elevations in NT-proBNP levels may be observed in state other than Left Ventricular Congestive Failure, including: acute coronary syndromes, right heart strain/failure (including pulmonary embolism and cor pulmonale), critical illness, renal failure, as well as advanced age. - References: 1. Fiona العراقي et.al. Eur Heart J. 2006:27:330-337. 2. Lisa RW, Alberto AM. J. AM Rio Cardiol: Cardiovasc Imag. 2009;2: 216- 225. Interpretive Data Last Revised Date: 2017. Blood 04/04/2024 5:57 PM PROTECTION SPECIALIST 04/04/2024 6:32 PM PROTECTION SPECIALIST us José Miguel Osorio MD LAB BLOOD ORDERABLES Final Resul t NAYANJUNAID [facility] 1 [facility] [place] [address] * (ABNORMAL) CBC with auto differential (04/04/2024 5:57 PM PROTECTION SPECIALIST) WBC 12.7(H) 3.8 - 9.9 K/cumm Hgb 14.1 13.0 - 17.5 g/dL [facility] Hct 42.2 38.9 - 50.3 % [facility] Plt 228 150 - 400 K/cumm [facility] ([place]) MPV 10.0 9.1 - 12.3 fL [facility]) RBC 4.62 4.30 - 5.80 M/cumm [facility]) MCV 91.3 81.3 - 96.4 fL [facility]) MCH 30.5 27.1 - 33.3 pg [facility]) MCHC 33.4 32.3 - 35.7 g/dL [facility] ([place]) RDW CV 13.5 11.1 - 14.9 % [facility]) RDW SD 45.3 35.7 - 48.1 fL [facility]) NRBC abs 0.00 0.00 - 0.01 K/cumm [facility]) Blood (Blood, Venous) 04/04/2024 5:57 PM PROTECTION SPECIALIST 04/04/2024 6:03 PM PROTECTION SPECIALIST Nikolas Doty MD LAB BLOOD ORDERABLES Final Res ult [facility] ([place]) 1 [facility] [place] [address] * aPTT (04/04/2024 5:57 PM PROTECTION SPECIALIST) aPTT 33 28 - 38 sec [facility]) Comment: Interpretive Data Heparin therapeutic range: 66.0 - 100.0 seconds. Range based on correlation with therapeutic heparin activity range of 0.3 - 0.7 Units/mL. Current interpretive data was last revised on 2023. Blood 04/04/2024 5:57 PM PROTECTION SPECIALIST 04/04/2024 7:20 PM PROTECTION SPECIALIST Narrative [facility] ([place]) - 04/04/2024 7:47 PM PROTECTION SPECIALIST Baseline prior to enoxaparin initiation. Nikolas Doty MD LAB BLOOD ORDERABLES Final Res ult [facility] ([place]) 1 [facility] [place] [address] * Protime-INR (04/04/2024 5:57 PM PROTECTION SPECIALIST) PT 11.9 9.7 - 13.0 sec [facility] ([place]) INR 1.10 0.90 - 1.20 [facility] ([place]) Comment: Interpretive data Oral anticoagulant therapeutic ranges: Venous thromboembolism prophylaxis or treatment: 2.0-3.0 CARDIOLOGY Standard range: 2.0-3.0 High-intensity range: 2.5-3.5 Refer to indication-specific guidelines for appropriate target ranges for prosthetic heart valve replacement. Current interpretive data was last revised on 2019. Blood 04/04/2024 5:57 PM PROTECTION SPECIALIST 04/04/2024 7:20 PM PROTECTION SPECIALIST Narrative [facility] ([place]) - 04/04/2024 7:44 PM PROTECTION SPECIALIST Baseline prior to enoxaparin initiation. Nikolas Doty MD LAB BLOOD ORDERABLES Final Res ult [facility] ([place]) 1 [facility] [place] [address] * (ABNORMAL) Comprehensive metabolic panel (04/04/2024 5:57 PM PROTECTION SPECIALIST) Sodium 140 135 - 145 mmol/L Potassium, pl 3.3 3.3 - 4.9 mmol/L [facility] ([place]) Chloride 100 97 - 110 mmol/L [facility] ([place]) CO2 28 22 - 32 mmol/L [facility]) Anion gap 12 2 - 15 mmol/L [facility] ([place]) BUN 24 6 - 25 mg/dL [facility] ([place]) Creatinine 1.78(H) 0.80 - 1.30 mg/dL [facility] Glucose 233(H) 70 - 199 mg/dL [facility] ([place]) Comment: Interpretive Data Fasting glucose >/= 126 mg/dl is diagnostic for diabetes. ?? Fasting is defined as no caloric intake for at least 8 hours. Fasting glucose between 100 mg/dl to 125 mg/dl is diagnostic of prediabetes. In a patient with classic symptoms of hyperglycemia or hyperglycemic crisis, a random glucose >/= 200 mg/dl is diagnostic for diabetes. In the absence of unequivocal hyperglycemia, results should be confirmed by repeat testing. The classification and Diagnosis of Diabetes Diabetes Care 202; 46: S19-S40. Current interpretive data was last revised 2022. Calcium 9.2 8.5 - 10.3 mg/dL [facility] ([place]) Bilirubin, total 0.2 0.1 - 1.2 mg/dL [facility] ([place]) Protein, pl 6.7 6.5 - 8.5 g/dL [facility] ([place]) Albumin 4.0 3.5 - 5.0 g/dL [facility] ([place]) Alk phos 114 40 - 130 Units/L [facility]) ALT 14 7 - 55 Units/L [facility]) AST 13 10 - 50 Units/L [facility]) Blood 04/04/2024 5:57 PM PROTECTION SPECIALIST 04/04/2024 6:03 PM PROTECTION SPECIALIST us Nikolas Doty MD LAB BLOOD ORDERABLES Final Res ult [facility]) [facility] [place] [address] * XR Chest 1 Vw Portable (if patient condition/safety warrant portable) (04/04/2024 5:27 PM PROTECTION SPECIALIST) Anatomical Region Laterality Modality Body, Chest N/A Computed Radiogr aphy 04/04/2024 6:28 PM PROTECTION SPECIALIST Narrative 04/04/2024 6:29 PM PROTECTION SPECIALIST EXAM DESCRIPTION: XR CHEST 1 VIEW REASON FOR STUDY: chest pain ?? Pt to ED for c/o intermittent chest pain and feeling unsteady on his feet x a few days. Pt reports hx of heart attack and cardiac stents. ? TECHNIQUE: ??Portable upright AP view of the chest. COMPARISON: 12/28/2023 FINDINGS: LUNGS AND PLEURA: ??No focal opacity, large effusion, or pneumothorax identified. HEART/MEDIASTINUM: ??Trachea midline. ?? Cardiac silhouette normal in size. Mediastinal contours appear normal. BONES: ??Unremarkable. ?? CHEST WALL: ??Unremarkable. ?? UPPER ABDOMEN: ??Unremarkable. ?? IMPRESSION: No acute abnormality identified within limits of low inspiratory volume portable technique. ??Lung bases obscured. ?? THIS IS AN ELECTRONICALLY VERIFIED FINAL REPORT 04/04/2024 6:29 PM - Electronically signed by ??Xavi Driscoll M.D. AR: REILLY D: ??04/04/2024 6:29 PM T: ??04/04/2024 6:29 PM Report ID: [id number] Reading Location: ??[id number] Procedure Note Xavi Driscoll MD - 04/04/2024 EXAM DESCRIPTION: XR CHEST 1 VIEW REASON FOR STUDY: chest pain Pt to ED for c/o intermittent chest pain and feeling unsteady on his feetx a few days. Pt reports hx of heart attack and cardiac stents. TECHNIQUE: Portable upright AP view of the chest. COMPARISON: 12/28/2023 FINDINGS: LUNGS AND PLEURA: No focal opacity, large effusion, or pneumothorax identified. HEART/MEDIASTINUM: Trachea midline. Cardiac silhouette normal in size. Mediastinal contours appear normal. BONES: Unremarkable. CHEST WALL: Unremarkable. UPPER ABDOMEN: Unremarkable. IMPRESSION: No acute abnormality identified within limits of low inspiratory volume portable technique. Lung bases obscured. THIS IS AN ELECTRONICALLY VERIFIED FINAL REPORT 04/04/2024 6:29 PM - Electronically signed by Xavi Driscoll M.D. AR: REILLY Report ID: [id number] Reading Location: [id number] Nikolas Doty MD IMG XR PROCEDURES Final Result * ECG 12 lead (04/04/2024 5:11 PM PROTECTION SPECIALIST) 04/04/2024 5:11 PM PROTECTION SPECIALIST Narrative [facility] - 04/05/2024 6:31 AM PROTECTION SPECIALIST Vent Rate: 72 bpm RR Interval: 828 msec [place] Interval: 0 msec QRS Duration: 90 msec QT Interval: 306 msec QTC Interval: 330 msec P-R-T [place]: [id number] - -9 - -11 degrees IMPRESSION: Baseline artifact, probable sinus rhythm LOW QRS VOLTAGE IN PRECORDIAL LEADS ??[QRS DEFLECTION < 1.0 mV IN CHEST LEADS] NONSPECIFIC ST \T\ T-WAVE ABNORMALITY ABNORMAL RHYTHM ECG NO CHANGE FROM PREVIOUS TRACING NOTED Electronically Signed By: Juarez Thornton MD Nikolas Doty MD ECG ORDERABLES Final Result [facility] * XR Knee Left 4 or More Views (03/01/2024 1:27 PM CDT) Anatomical Region Laterality Modality Lower Extremities, Knee Left Digital Radiography Narrative 03/01/2024 2:44 PM CDT Radiographs taken of the left knee today reveal moderate degenerative changes with subchondral sclerosis, osteophyte formation, and diminished joint space. Karen Christopher NP IMG XR PROCEDURES Final Result * XR Knee Left 4+ Vw (Routine) (02/28/2024 2:05 PM CDT) Anatomical Region Laterality Modality Lower Extremities, Knee Left Computed Radiography 02/28/2024 2:09 PM CDT Narrative 02/28/2024 2:10 PM CDT EXAM DESCRIPTION: XR KNEE LEFT 4 OR MORE VIEWS REASON FOR STUDY: pain ?Pt to triage for knee pain. Pt states Dean his knee popped out and since then has had pain when he walks. Pt states pain is so bad he is having trouble ambulating. ? FINDINGS: Four views submitted with comparison 07/17/2022. No acute fractures are identified. ??Alignment is normal. ??There is mild medial and patellofemoral bicompartmental left knee osteoarthritis. ??Small effusion is present. ??Extensor mechanism heterotopic ossification is present. IMPRESSION: Mild medial and patellofemoral bicompartmental left knee osteoarthritis with a small effusion. THIS IS AN ELECTRONICALLY VERIFIED FINAL REPORT 02/28/2024 2:10 PM - Electronically signed by ??Tania Kumar M.D. MF: LONG D: ??02/28/2024 2:10 PM T: ??02/28/2024 2:10 PM Report ID: [id number] Reading Location: ??[id number] Procedure Note Tania Kumar MD - 02/28/2024 EXAM DESCRIPTION: XR KNEE LEFT 4 OR MORE VIEWS REASON FOR STUDY: pain Pt to triage for knee pain. Pt states Tuesday his knee popped out andsince then has had pain when he walks. Pt states pain is so bad he is havingtrouble ambulating. FINDINGS: Four views submitted with comparison 07/17/2022. No acute fractures are identified. Alignment is normal. There is mildmedial and patellofemoral bicompartmental left knee osteoarthritis. Smalleffusion is present. Extensor mechanism heterotopic ossification is present. IMPRESSION: Mild medial and patellofemoral bicompartmental left knee osteoarthritiswith a small effusion. THIS IS AN ELECTRONICALLY VERIFIED FINAL REPORT 02/28/2024 2:10 PM - Electronically signed by Tania Kumar M.D. MF: LONG Report ID: [id number] Reading Location: [id number] Yaz Escobar MD IMG XR PROCEDURES F inal Result * (ABNORMAL) Hemoglobin A1c (08/30/2023 2:23 AM CDT) Hgb A1C 6.3(H) 4.0 - 5.6 % Estimated Average Glucose 134 mg/dL [facility] ([place]) Comment: The ADA recommends reporting an estimated Average Glucose (eAG) with all Hemoglobin A1c results using the equation derived from a study of 507 normal and diabetic adults. ??Minority populations were underrepresented and children were not included. ?? (Diabetes Care 31:7132-6928, 2008). ??The eAG is not equivalent to a fasting glucose. Blood 08/30/2023 2:23 AM CDT 08/30/2023 12:50 PM CDT us Destiny Devi DIRECTOR OF COUNSELING LAB BLOOD ORDERABLES Final R esult [facility] ([place]) [facility] [place] [address] * (ABNORMAL) Lipid panel (08/28/2023 8:27 PM CDT) Cholesterol 149 30 - 199 mg/dL Comment: Interpretive Data Ages < or = 19 years ??Acceptable: ? <170 mg/dL ??Borderline high: ??170-199 mg/dL ??High: ? >or= 200 mg/dL Ages > or = 20 years ??Desirable: ?<200 mg/dL ??Borderline high: ??200-239 mg/dL ??High: ? >or= 240 mg/dL Literature References: 1. Expert Panel on Integrated Guidelines for Cardiovascular Health and Risk Reduction in Children and Adolescents. Pediatrics 2011;128:S213 2. NCEP Expert Panel. Circulation 2004;110:227 Current Interpretive Data was last revised on 2017. Triglycerides 229(H) <=149 mg/dL [facility] ([place]) Comment: Interpretive Data Ages < or = 9 years ??Acceptable: ? <75 mg/dL ??Borderline high: ??75-99 mg/dL ??High: ? >or= 100 mg/dL Ages 10 to 20 years ??Acceptable: ? <90 mg/dL ??Borderline high: ??90-129 mg/dL ??High: ? >or= 130 mg/dL Ages > or = 20 years ??Desirable: ?<150 mg/dL ??Borderline high: ??150-199 mg/dL ??High: ? 200-499 mg/dL ?Very high: ?? >or= 499 mg/dL Literature References: 1. Expert Panel on Integrated Guidelines for Cardiovascular Health and Risk Reduction in Children and Adolescents. Pediatrics 2011;128:S213 2. NCEP Expert Panel. Circulation 2004;110:227 Current Interpretive Data was last revised on 2017. HDL 26(L) >=40 mg/dL [facility] ([place]) Comment: Interpretive Data Ages < or = 19 years ??Acceptable: ? >45 mg/dL ??Borderline low: ?? 40-45 mg/dL ??Low: ? <40 mg/dL Ages > or = 20 years ??Desirable: ?>or= 60 mg/dL ??Low: ? <40 mg/dL Literature References: 1. Expert Panel on Integrated Guidelines for Cardiovascular Health and Risk Reduction in Children and Adolescents. Pediatrics 2011;128:S213 2. NCEP Expert Panel. Circulation 2004;110:227 Current Interpretive Data was last revised on 2017. LDL, calculated 77 <=129 mg/dL [facility] ([place]) Comment: Interpretive Data Ages < or = 19 years ??Acceptable: ? <110 mg/dL ??Borderline high: ??110-129 mg/dL ??High: ?>or= 130 mg/dL Ages > or = 20 years ??Optimal: ? <100 mg/dL ??Near optimal: ?100-129 mg/dL ??Borderline high: ?? 130-159 mg/dL ??High: ?>160 mg/dL Literature References: 1. Expert Panel on Integrated Guidelines for Cardiovascular Health and Risk Reduction in Children and Adolescents. Pediatrics 2011;128:S213 2. NCEP Expert Panel. Circulation 2004;110:227 Current Interpretive Data was last revised on 2017. Non-HDL Cholesterol 123 mg/dL [facility] ([place]) Comment: Interpretive Data Ages < or = 19 years ??Acceptable: ?<120 mg/dL ??Borderline high: ??120-144 mg/dL ??High: ?>145 mg/dL Ages > or = 20 years ??When triglycerides are >200 mg/dL, Non-HDL cholesterol is a secondary target of ? therapy with treatment goals that are 30 mg/dL greater than the LDL cholesterol target. ? Literature References: 1. Expert Panel on Integrated Guidelines for Cardiovascular Health and Risk Reduction in Children and Adolescents. Pediatrics 2011;128:S213 2. NCEP Expert Panel. Circulation 2004;110:227 Current Interpretive Data was last revised on 2017. Chol/HDL ratio 6 [facility] ([place]) Blood 08/28/2023 8:27 PM CDT 08/28/2023 10:13 PM CDT us Jesus Payan MD LAB BLOOD ORDERABLES Final Re sult [facility] ([place]) [facility] [place] [address] * PSA screen (10/28/2021 2:47 PM CDT) PSA-Total 3.15 <=5.40 ng/mL [facility] ([place]) Comment: Interpretive Data ?AGE ? SEX ?REFERENCE INTERVAL 0 minutes-150 years ?Female ?None 0 minutes-49 years ? Male ?None ? 50-59 years ? Male ?0-3.90 ? 60-69 years ? Male ?0-5.40 ? 70-79 years ? Male ?0-6.20 ? 80-150 years ?Male ?0-6.20 The Erica PSA Total assay procedure was used. Results from different manufacturers or methods may not be comparable. Serial testing should be performed using the same method. Current interpretive data last revised 21. Testing performed by: [facility], [address] [place] [address]., [id number] Blood 10/28/2021 2:47 PM CDT 10/28/2021 7:50 PM CDT Sohail [place] MD LAB BLOOD ORDERABLES Holly l Result Performing Organization Address City/[facility]/ZIP Co de Phone Number [facility] ([place]) [address] [facility] [place] [address] * (ABNORMAL) Albumin Creatinine Ratio, Urine (10/28/2021 2:47 PM CDT) Albumin Ur 713.6 mg/L [facility] Comment: Interpretive Data No reference range established. Current interpretive data was last revised 2018. Testing performed by: [facility], [address] [place] [address]., [id number] Creatinine Ur 343.1 mg/dL [facility] ([place]) Comment: Interpretive Data No reference range established. Current interpretive data was last revised 2018. Testing performed by: [facility], [address] [place] [address]., [id number] Albumin Creatinine Ratio, Ur 208(H) 1 - 29 mg/g [facility] ([place]) Comment:Testing performed by : [facility], [address] [place] [address]., [id number] Urine 10/28/2021 2:47 PM CDT 10/28/2021 9:10 PM CDT Sohail [place] MD LAB URINE ORDERABLES Holly l Result Performing Organization Address City/[facility]/ZIP Co de Phone Number [facility] ([place]) 1 [facility] [employer] [place] [address] * Stool DNA - Cologuard (11/30/2020) Scribed Stool DNA - Cologuard Negative EXTERNAL LAB Stool us Historical Provider MD LAB BODY FLUIDS AND STOOL S ORDERABLES Final Result EXTERNAL LAB from Last 3 Months or Most Recently Relevant to Health Maintenance Insurance [employer] MEDICARE SOLUT[employer] MEDICARE SOLUTIONS [facility] MEDICARE Address: [place] [address] [facility] MEDIC[facility] Address: [place] [address] [employer] Advance Directives For more information, please contact: [phone] * Full Code (Latest Code Status on File) Date Activated Date Inactivated Comments 04/04/2024 7:07 PM 04/10/2024 8:18 PM * Full Code Date Activated Date Inactivated Comments 12/28/2023 6:16 PM 12/31/2023 5:44 PM * Full Code Date Activated Date Inactivated Comments 08/29/2023 4:46 PM 09/02/2023 8:05 PM * Full Code Date Activated Date Inactivated Comments 08/28/2023 8:46 PM 08/29/2023 4:46 PM * Full Code Date Activated Date Inactivated Comments 02/03/2023 1:59 PM 02/05/2023 5:22 PM Care Teams Inset Cutter Relationship Specialty Start Date End Date Melchor Woodard MD PCP - General Family Practice 07/30/22 Nicolas Jung MD Surgeon Orthopedic Surgery 08/05/21 Louie Lomeli MD Consulting Physician Cardiology 12/23/21 Tania Sparrow MD [address] [place] [address] [place] [address] Consulting Physician Neurology 12/14/22
--- OUTSIDE RECORDS SUMMARY | 2024-05-28 13:10 | XMS_ITS | Continuity of Care Document ---
Author Organization [email or web address] Address [address] [address] [place] [address] Phone Care Team Providers Care Commodity Supervisor Name Role Phone Kita Perry OD Unavailable Unavailable Allergies, Adverse Reactions, Alerts Substance Reaction Status Criticality No Known Allergies Active No Inform ation Medications Medication Instructions Dosage Effective Dates (start - stop) Status Comments Topamax 50 mg tablet take 1 tablet by oral route 2 times every day 50 MG - Active Brilinta 90 mg tablet take 1 tablet by oral route 2 times every day 90 MG - Active Nitro-Bid 2 % transdermal ointment apply 1 inch by transdermal route every 8 hours and remove at bedtime 15 MG - Active metoprolol succinate ER 50 mg tablet,extended release 24 hr take 1 tablet by oral route every day 50 MG - Active meclizine 25 mg tablet take 1 tablet by oral route 3 times every day as needed 25 MG - Active losartan 25 mg tablet take 1 tablet by oral route every day 25 MG - Active levothyroxine 50 mcg capsule take 1 capsule by oral route every day 50 MCG - Active hydrochlorothiazide 25 mg tablet take 1 tablet by oral route every day 25 MG - Active hydralazine 50 mg tablet take 1 tablet b y oral route 2 times every day with food 50 MG - Active gabapentin 100 mg capsule take 1 capsule by oral route 3 times every day 100 MG - Active ezetimibe 10 mg tablet take 1 tablet by oral route every day 10 MG - Active azelastine 0.05 % eye drops instill 1 drop by ophthalmic route 2 times every day into affected eye(s) 1.00 drop - Active Vazalore 81 mg capsule take 1 capsule by oral route every day 81 MG - Active amlodipine 10 mg tablet take 1 tablet by oral route every day 10 MG - Active Procedures Procedure Date Fundus Photography W/ Report Eye Exam & Treatment No Charge Optomap Fundus Photos 021 No Charge Refraction No Charge GDX Retina IOLMaster-Technical No Charge Orbscan Eye Exam & Treatment Office/outpatient Visit, Est No Charge Refraction Post-op Follow-up Visit Office/outpatient Visit, Est Post-op Follow-up Visit Remove Cataract, Insert Lens IOLMaster-Professional No Charge Orbscan No Charge Refraction No Charge GDX Retina IOLMaster-Technical Post-op Follow-up Visit No Charge Refraction Post-op Follow-up Visit Post-op Follow-up Visit Post-op Follow-up Visit Pterygium Excison W/Graft No Charge Refraction No Charge Optomap Fundus Photos 019 Corneal Topography Office/outpatient Visit, Est No Charge Refraction Eye Exam, New Patient Advance Directives Directive Yes / No Effective Date File Name No Information Encounters Encounter Description Practice Location Reason(s) For Visit Diagnoses Date Provider Providers Copied on Encounter [facility] [address] [address], [place], [place], [address], [place] tel:[phone] SEC Arnoldo ECKERT Professional No Information 3 Vicky JOSE JUAN Kita. [address], [address], [place], [place], [address], [place]. 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 [facility] [address], [address], [place], [place], [address], [place]. tel:[phone] Referring Provider: Kita Perry OD L, [facility] [employer] [address], [place], [address] . tel:[phone] [facility], [facility] [address], [place], [place], [address], [place] tel:[phone] SEC Arnoldo ECKERT Professional Cataract Evaluation (chief complaint) Pseudophakia of right eyeCombined forms of age-related cataract, left eyeXT (exotropia)Pt osis of both eyelids 0 1 Waqar Pace. [address], [facility] [address], [place], [place], [address], [place]. tel:[phone] Referring Provider: Sanjeev Barker, [address] [facility] [address], [place], [address] . tel:[phone] Office/outpa tient Visit, Est [facility], [facility] [address], [place], [place], [address], [place] tel:[phone] SEC Arnoldo ECKERT Professional WIE (chief complaint) Abrasion of right eyelid, initial encounterEdem a of right upper eyelid Oct-0 0 Waqar Pace. [address], [facility] [address], [place], [place], [address], [place]. tel:[phone] Referring Provider: Sanjeev Barker, [address], [place], [address] . tel:[phone] [facility], [address], [place], [place], [address], [place] tel:[phone] SEC Arnoldo ECKERT Professional 1 month s/p PCIOL (chief complaint) Post op visit 0 Juan F Lam. [address] [facility], [address]th [address], [place], [address], [place]. tel:[phone] Referring Provider: Sanjeev Barker, [address], [place], [address] . tel:[phone] Office/outpa tient Visit, Est [facility], [address], [place], [place], [address], [place] tel:[phone] SEC Arnoldo ECKERT Professional WIE (chief complaint) Allergic conjunctiviti s of both eyes 0 Waqar Pace. [address], [address], [place], [place], [address], [place]. tel:[phone] Referring Provider: Sanjeev Barker, [address], [place], [address] . tel:[phone] [facility], [address], [place], [place], [address], [place] tel:[phone] SEC Arnoldo ECKERT Professional 1 day s/p PCIOL (chief complaint) Post op visit 0 Waqar Pace. [address], [address], [place], [place], [address], [place]. tel:[phone] Referring Provider: Sanjeev Barker, [address], [place], [address] . tel:[phone] [facility], [address], [place], [place], [address], [place] tel:[phone] [facility] [place] No Information [address]. [facility] [address] [employer], [address], [place], [place], [address], . tel:[phone] Referring Provider: Sanjeev Barker, [address] [facility] [address], [place], [address] . tel:[phone] [facility], [address] [place], [place] [address] [address], [place], [place], [address], tel:[phone] SEC [place] No Information [address]. [facility] [address], [address], [place], [place], [address], [place]. tel:[phone] Referring Provider: Sanjeev Barker, [address] [facility] [address], [place], [address] . tel:[phone] [facility], [address] [place] [address] [address], [place], [place], [address], tel:[phone] SEC [place] Professional Cataract evaluation (chief complaint) Post op visitCombined forms of age-related cataract, bilateral [address] [facility] [address] [employer], [address], [place], [place], [address], [place]. tel:[phone] Referring Provider: Sanjeev Barker, [address] [facility] [address], [place], [address] . tel:[phone] [facility], [facility] [employer] [address], [place], [place], [address], [place] tel:[phone] SEC [place] Professional Cataract evaluation (chief complaint) Post op visit 0-201 [address] [facility] [address] [employer], [address], [place], [place], [address], . tel:[phone] Referring Provider: Sanjeev Barker, [address] [facility] [address], [place], [address] . tel:[phone] [facility], [address], [place], [place], [address], [place] tel:[phone] SEC Rebekah Chino 1 wk Pterygium excision po (chief complaint) Post op visit [address] [facility] [address] [employer], [address], [place], [place], [address], [place]. tel:[phone] Referring Provider: Sanjeev Barker, [address] [facility] [address], [place], [address] . tel:[phone] [facility], [address] [employer] [address], [place], [place], [address], [place] tel:[phone] SEC [place] Pterygium excision (chief complaint) Post op visit 0 [address] [facility] [address] [employer], [address], [place], [place], [address], [place]. tel:[phone] Referring Provider: Sanjeev Barker, [address] [facility] [address], [place], [address] . tel:[phone] [facility], [address] [employer] [address], [place], [place], [address], [place] tel:[phone] [facility] [place] No Information [address] [facility] [address] [employer], [address], [place], [place], [address], [place]. tel:[phone] Referring Provider: Sanjeev Barker, [address] [facility] [address], [place], [address] . tel:[phone] Office/outpa tient Visit, Est [facility], [address] [employer] [address], [place], [place], [address], [place] tel:[phone] SEC [place] Professional pterygium and cataract (chief complaint) Peripheral pterygium, progressive, left eyeCombined forms of age-related cataract, bilateral Oct- 9 Annemarie Zhou. [address], [address], [place], [place], [address], [place]. tel:[phone] Referring Provider: Sanjeev Barker, [address] [facility] [place] [address], [place], [address] . tel:[phone] [facility], [address], [place], [place], [address], [place] [phone] SEC [place] Professional Complete Exam (chief complaint) Age-related nuclear cataract, bilateralPter ygium of left eyeAllergic conjunctiviti s of both eyes 9 Waqar Pace. [address] [facility], [facility] [address], [place], [place], [address], [place]. tel:[phone] Referring Provider: Sanejev Barker, [address] [facility] [place] [address], [place], [address] . tel:[phone] [facility], [address], [place], [place], [address], [place] [phone] SEC [place] No Information 9 Asha JOSE JUAN Destiny. [address] [facility], [facility] [address], [place], [address], . tel:[phone] Family History Family Member Type Diagnosis Age At Onset Problem (finding) Family history of Diabe prakash mellitus Payers Payer name Insurance type Covered alliance party ID Authoriza tion(s) AAR Medicare Complete [place] [id number] [place] [id number] Social History Type Description Quantity Date Captured Comments Sex Male Smoking Status No Information Chief Complaint And Reason For Visit No Information Reason For Referral Reason For Referral No Information Plan Of Treatment Date Type Action Status Patient Education Cataracts: Care Instruc tions completed Patient Education Cataract Surgery: What to Expect at H~ completed Patient Education Scrapes (Abrasions): Ca re Instructions completed Patient Education Pterygium and Pinguecul a: Care Instru~ completed Patient Education Pterygium and Pinguecul a: Care Instru~ completed History Of Present Illness Encounter Date Complaint History Of Prese nt Illness Complete Exam The 72 year old patient presents for evaluation of Complete Exam in the right eye and left eye. Pt states vision is blurry in OU but more so in OS. Pt states OU cakes up in the morning but more so OS. Experiences vertigo with head turn. He is scheduled to have surgery on his neck. He is a diabetic, not on medication. Last A1c unknown Cataract Evaluation The 70 year old male presents for evaluation of Cataract Evaluation in the left eye. Hx PCIOL OD (06/14/20), Pterygium Excision OS. Pt reports not driving at night. He sees glare from overhead lighting and street lights. Pt reports trouble seeing street signs, TV, and small print at near such as newspapers, books, and medicine bottles x many years OS. Pt states that he is borderline DM, last A1c 8.0, last tested about 3 weeks ago by his orthopedic surgeon. Pt does not check BS. Pt does not take medication. WIE The 69 year old male presents for evaluation of WIE in the right eye. Patient states yesterday he fell into some lumber and hit OD. Patient states OD feels funny and vision is a little blurry. OD is swollen. 1 month s/p PCIOL The 69 year ol d male presents for evaluation of 1 month s/p PCIOL in the right eye (06/13/19). Patient states VA is really bright with the right eye. c/o with the left eye patient has trouble seeing small print, reading small print. reading labels on medicine bottles, and some trouble seeing road signs at a distance with the left eye over the last couple of years. Patient stopped gtts WIE The 69 year old male presents for evaluation of WIE in the right eye and left eye. s/p PCIOL 06/14/19 OD. Patient states Tuesday his eyes starting itching really bad. Then Tuesday he got in the pool and eyes became very painful and red. Patient states he could not use his p/o gtts this morning due to the pain. Patient has Pred and Poly. 1 day s/p PCIOL The 69 year old male presents for evaluation of 1 day s/p PCIOL in the right eye. Patient states VA is brighter but not sure if VA is any better. Patient states his gtts were never sent it. Patient instructed to use Pred and Poly as well as use of eyes shield. Cataract evaluation The 68 year old male presents for a cataract evaluation ou. Patient had Pterygium excision OS 03/20. Patient is not using any drops. Patient c/o eyes get crusty in the am. Patient c/o he is having a hard time seeing the computer and reading small print. Cataract evaluation The 68 year old male presents for evaluation of Cataract evaluation in the right eye and left eye with 1 month s/p pterygium excision OS (03/10/19).. Hx of Pterygium w/excision OS, Cataracts OU, Patient states the left eye is sore, red, irritated, and the pressure patch is making both eyes water a lot. Patient states he has been feeling nauseas as well. Patient using Poly qd OS and Pred BID OS. Patient would like Dr. Sharpe to look at his left eye before anything is done as far as measurements or pressure. Patient states his distance VA is fine he has trouble reading small print with both eyes. Some difficulty with seeing in bright sunlight with both eyes. 1 wk Pterygium excision po The [age] year old male presents for evaluation of 1 wk Pterygium excision po in the left eye (03/10/19). Pt using Poly bid and Pred bid. Pt states OS has been itching and OU have been tearing. Pterygium excision The 68 year o ld male presents for evaluation of Pterygium excision in the left eye. Pt using Poly and pred bid. Pt denies pain or discomfort. pterygium and cataract The 68 ye ar old male presents for evaluation of pterygium prior to having cataract surgery in the left eye. Patient states his VA is decreasing in the left eye over the last year. Patient has trouble seeing and reading small print with both eyes. Patient has difficulty seeing road signs at a distance OS>OD and seems to be getting worse over the last couple of months. Complete Exam The 68 year old male presents for a complete exam ou. Patient takes no medication for diabetes. Patient c/o double vision but not all the time. Patient wears reading glasses sometimes. Functional Status Date Functional Assessmen t No Information Instructions Date Instruction Additional Infor mary alice Impression/Plan Impression/Plan Impression/Plan Impression/Plan Impression/Plan Impression/Plan sched CE OS 1st Related to Combi denny forms of age-related cataract, bilateral Impression/Plan Related to Combi denny forms of age-related cataract, bilateral Impression/Plan Impression/Plan Impression/Plan Impression/Plan Impression/Plan Assessments Type Assessment Date No Information Patient Care Teams Name Effective Dates (start - stop) Status Members No Information
--- OUTSIDE RECORDS SUMMARY | 2024-05-28 13:10 | XMS_ITS | Clinical Summary ---
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 Name Role Phone Nicolas Jung MD Unavailable Louie Lomeli MD Unavailable [phone] Melchor Woodard MD Primary Care Provider [phone] Tania Sparrow MD Unavailable [phone] Allergies Active Allergy Reactions Criticality Noted Date Comments Ceftriaxone Nausea only Low 09/23/2021 Ljzxpxu-Obf-Qin Reductase Inhibitors Other (See comments) Low 01/26/2018 [...] 1 tablet (50 mcg total) by mouth phlebotomist associate before breakfast Active hydroCHLOROthiaz jared (HYDRODIURIL) 25 [...] Local Anesthesia 2 mL One-Time Injection 05/01/2024 Ended Active Problems Problem Noted Date Diagnosed [...] 06/01/2022 Assessment & Plan (06/01/2022 3:29 PM STEWARD/STEWARDESS DECK): Worsening, patient reports symptoms are worse 1st thing in the morning, has to clean eyes before can open; fewer symptoms throughout the day; most consistent with allergic conjunctivitis Start azelastine eyedrops Diabetic neuropathy, type II diabetes mellitus ( [facility]) 05/27/2022 LALITO (acute kidney injury) 03/10/2022 Obesity (BMI 30-39.9) 03/10/2022 Other chest pain 03/09/2022 Assessment & Plan (06/01/2022 3:28 PM STEWARD/STEWARDESS DECK): Continues to have episodes of chest pain, started in nature; can radiate to right-side of chest Patient reports some relief with ASA; has nitroglycerin Will continue to monitor; if negative cardio workup, consider esophageal spasms of source of pain Assessment & Plan (04/06/2022 11:47 AM STEWARD/STEWARDESS DECK): Reports pressure-like chest pain today, worsening fatigue [...] (12/29/2021): Added automatically from request for surgery [id number] Leukocytosis 12/19/2021 UTI (urinary tract infection) 12/19/2021 Coronary artery disease 12/18/2021 Overview (12/18/2021): Added automatically from request for surgery [id number] Assessment & Plan (03/07/2022 9:41 AM STEWARD/STEWARDESS DECK): Not well controlled, patient had stopped taking all medications, had elevated blood pressures today Encouraged patient to continue medications as prescribed Continue Brilinta 90 mg b.i.d., Zetia 10 mg daily Hypertensive crisis 12/16/2021 Assessment & Plan (12/17/2021 12:13 PM CDT): Present on admission, received Labetalol iv, currently resolved NSTEMI (non-ST elevated myocardial infarction) ( [facility]) 12/16/2021 Overview (12/17/2021): Added automatically from request for surgery [id number] Assessment & Plan (01/10/2022 9:21 PM CDT): [...] Nasal saline spray (Simply saline, Little Remedies, [place], [place]) 2 second sprays or 2 squeezes into [...] (11/18/2020): Added automatically from request for surgery [id number] Assessment & Plan (03/20/2021 4:30 PM STEWARD/STEWARDESS DECK): Stable, patient waiting on improved A1c for [...] (11/18/2020): Added automatically from request for surgery [id number] Scar of vermilion border of upper lip 07/04/2020 Overview (07/04/2020): Referral to plastic surgery for evaluation and possible affects scar tissue Cicatrix 07/04/2020 Tension headache 06/30/2020 Assessment & Plan (06/25/2021 10:33 AM STEWARD/STEWARDESS DECK): Patient has recurrent left-sided tension headaches; likely secondary to pressure on muscles from lipoma Assessment & Plan (06/09/2021 1:59 PM STEWARD/STEWARDESS DECK): Patient has headache for the last 4-6 [...] nostril Assessment & Plan (06/30/2020 12:31 PM STEWARD/STEWARDESS DECK): Patient has severe left sided headache; reports worsened with looking down or leaning back in bed; may be related to sinuses vs tension type headache -given congestion may consider sinus pressure and will refer to ENT Chronic midline low back pain without sciatica 0 06/30/2020 Assessment & Plan (06/30/2020 12:33 PM STEWARD/STEWARDESS DECK): Not well controlled; likely worsened due to poor core strength; encouraged weight loss to reduce strain on lower back (has severe central adiposity) Will give patient core exercises to strengthen low back and abodmen Lipoma of neck 06/25/2020 Assessment & Plan (06/25/2021 10:32 AM STEWARD/STEWARDESS DECK): Not well controlled, patient has left-sided tension style headaches, S with noted changing position of head due to size of lipoma Patient benefit from surgical removal to help improve overall posture as well as potentially improved tension headaches Assessment & Plan (05/14/2021 1:29 PM STEWARD/STEWARDESS DECK): Patient has large lipoma on back left-sided neck; reports left-sided headaches, which may be contributed by lipoma putting pressure on muscles sugar causing tension headaches Referral to Plastic surgery for removal Assessment & Plan (03/20/2021 4:29 PM STEWARD/STEWARDESS DECK): Stable, Impacts patient ability to turn had; will continue monitor refer to surgery when appropriate Primary osteoarthritis of left knee 05/08/2020 Assessment & Plan (11/17/2021 3:53 PM CDT): Continues to have significant pain, has some symptom improvement, but limited range of motion and pain with movement Recent steroid injection Follow-up with orthopedics Assessment & Plan (04/21/2021 2:52 PM STEWARD/STEWARDESS DECK): Stable, continues with physical therapy which is [...] monitor Assessment & Plan (05/14/2021 1:29 PM STEWARD/STEWARDESS DECK): Improving, patient has walked about 12 lb since last visit; encouraged continued dietary changes, decreasing in take through portion control as well as lowering carbohydrate intake Encourage daily activity of 30 minutes of moderate intensity aerobic exercise daily Assessment & Plan (03/20/2021 4:29 PM STEWARD/STEWARDESS DECK): Weight is stable, no significant change; patient [...] week Assessment & Plan (05/05/2020 3:33 PM STEWARD/STEWARDESS DECK): Not well controlled, patient reports weight loss [...] daily Assessment & Plan (06/25/2021 10:31 AM STEWARD/STEWARDESS DECK): Stable, unclear control, patient reports inconsistent medications use Continue levothyroxine 50 mcg daily, check TSH today Assessment & Plan (04/21/2021 2:52 PM STEWARD/STEWARDESS DECK): Stable, well controlled; continue levothyroxine 50 mcg daily Assessment & Plan (03/20/2021 4:28 PM STEWARD/STEWARDESS DECK): Stable, well controlled; continue levothyroxine 50 mcg daily Assessment & Plan (09/24/2020 3:00 PM CDT): Recheck TSH today as previous TSH was mildly elevated, is still elevated will adjust levothyroxine given patient has complaints of generalized fatigue Assessment & Plan (06/16/2020 9:09 AM STEWARD/STEWARDESS DECK): Will recheck thyroid now that has been on medication for ~6 weeks Assessment & Plan (05/05/2020 3:36 PM STEWARD/STEWARDESS DECK): Mild elevation of TSH, patient has multiple symptoms including inability to lose weight, chronic fatigue and chronic tiredness Will start at low dose levothyroxine 25 mcg, will recheck TSH in approximately 6 weeks Arthritis 03/24/2020 DM2 (diabetes mellitus, type 2) 03/24/2020 Assessment & Plan (06/01/2022 3:30 PM STEWARD/STEWARDESS DECK): Not well controlled, A1c has always been [...] diet Assessment & Plan (06/25/2021 10:31 AM STEWARD/STEWARDESS DECK): Stable, improving; patient A1c has been down trending to 7.5 last time, recheck A1c today Continue metformin XR 1000 mg daily Assessment & Plan (05/14/2021 1:28 PM STEWARD/STEWARDESS DECK): Stable, improving; last A1c was decreasing to 7.5 Encouraged patient to continue with low-carbohydrate diet; encourage education dietary changes as well as regular exercise Continue metformin 1000 mg daily Assessment & Plan (04/21/2021 2:52 PM STEWARD/STEWARDESS DECK): Stable, improving; patient reports he has been working on decreasing carbohydrates Has a decreased appetite well on Rybelsuswith minimal side effects Continue metformin 1000 mg daily with breakfast, Rybelsus 7 mg prior to breakfast Continue to monitor encourage continued decreased carbohydrate diet Recheck labs at follow-up appointment Assessment & Plan (03/20/2021 4:28 PM STEWARD/STEWARDESS DECK): Stable, well controlled, improving Patient reports improved [...] diet Assessment & Plan (05/05/2020 3:32 PM STEWARD/STEWARDESS DECK): Not well controlled, A1c is 7.7 today [...] strength Assessment & Plan (03/26/2020 12:24 PM STEWARD/STEWARDESS DECK): Will check blood sugars and A1c to evaluate for control of diabetes on metformin Hyperlipidemia 03/24/2020 Assessment & Plan (12/17/2021 12:16 PM CDT): Pt is not on a statin due to intolerance LDL is 107. Started on Zetia per cardiology. Assessment & Plan (10/13/2021 2:34 PM CDT): Not well controlled, encouraged continued dietary changes and weight loss Assessment & Plan (05/14/2021 1:28 PM STEWARD/STEWARDESS DECK): Not well controlled, patient cannot tolerate statins; encouraged dietary changes order reduce cholesterol through low-fat high-fiber diet Assessment & Plan (05/05/2020 3:35 PM STEWARD/STEWARDESS DECK): Poorly controlled patient has elevated total and LDL cholesterol with knee depressed HDL cholesterol Triglycerides are also elevated at 254 Patient is unable to tolerate statin therapy due to muscular pain of thigh muscles Will encouraged diet and exercise as ways to maintain and modify cholesterol level Hypertension, essential 03/24/2020 Assessment & Plan (06/01/2022 3:30 PM STEWARD/STEWARDESS DECK): Stable, improving; blood pressure today in clinic was normal; patient reports home measurements are improving Continue amlodipine 10 mg daily, hydralazine 25 mg b.i.d., metoprolol 100 mg daily Losartan was previously on medication list, but not part of pharmacy was Given blood pressures appropriate, will continue to monitor, can rehab losartan if blood pressure increases Assessment & Plan (04/06/2022 11:47 AM STEWARD/STEWARDESS DECK): Stable, improving; most recent blood pressure was at target Continue losartan 100 mg daily, metoprolol 100 mg daily, amlodipine 10 mg daily Assessment & Plan (03/07/2022 9:40 AM STEWARD/STEWARDESS DECK): Not well controlled; patient reports that he [...] daily Assessment & Plan (06/25/2021 10:30 AM STEWARD/STEWARDESS DECK): Not well controlled; blood pressure is elevated this morning prior to surgery, elevated again in office Given blood pressure was just normal on 06/09/2021, will increase lisinopril to 40 mg daily Encouraged patient to consistently take medications, with no missed or skipped doses Assessment & Plan (05/14/2021 1:27 PM STEWARD/STEWARDESS DECK): Not well controlled, blood pressure remains elevated; patient has been inconsistent with taking medications Will continue lisinopril 20 mg, follow-up at next appointment; if blood pressure still is elevated will adjust medication Assessment & Plan (03/20/2021 4:27 PM STEWARD/STEWARDESS DECK): Stable well controlled; blood pressure a target; [...] needed Assessment & Plan (05/05/2020 3:34 PM STEWARD/STEWARDESS DECK): Well controlled, patient's blood pressure is at target today Will continue with current therapies and continue to monitor patient Assessment & Plan (03/26/2020 12:24 PM STEWARD/STEWARDESS DECK): Stable well controlled, continue present management Post-traumatic [...] arthroscopy Assessment & Plan (06/16/2020 9:09 AM STEWARD/STEWARDESS DECK): Not well controlled, had relief with cortisone injection, but now has worsening pain; relief last for about 3-4 weeks -has some instability of patella, able to 'adjust' patella to relieve pain and improve ROM Assessment & Plan (05/05/2020 3:34 PM STEWARD/STEWARDESS DECK): Stable, not controlled Patient is not able to consistently place weight on the Patient to follow-up with orthopedics further evaluation, based on recommendations may refer to physical therapy Assessment & Plan (03/26/2020 12:24 PM STEWARD/STEWARDESS DECK): Will start treatment with diclofenac cream, and use of the triamcinolone as necessary If needed will refer to physical therapy for further improvement in pain Polyneuropathy associated with underlying diseas e ([facility]) 10/24/2019 Assessment & Plan (04/06/2022 11:44 AM STEWARD/STEWARDESS DECK): Continues to have numbness and weakness in bilateral legs; patient scheduled nerve conduction study Continue gabapentin 100 mg TID Continue with exercise, and strength training; noted to have decreased strength in hip flexors; normal with knee -if EMG is normal, consider CK or evaluation of polymyalgia or polymysitis Assessment & Plan (05/05/2020 3:34 PM STEWARD/STEWARDESS DECK): Patient has episodes of decreased balance due [...] management Assessment & Plan (06/25/2021 10:32 AM STEWARD/STEWARDESS DECK): Not well controlled, patient continues to have frequent nighttime urination; encouraged patient to continue follow-up with Urology and reschedule surgery Continue myrbetriq 50 mg daily Assessment & Plan (03/20/2021 4:30 PM STEWARD/STEWARDESS DECK): Patient continues to have increased urinary frequency, [...] mechanism 12/08/2022 07/15/2023 Statin intolerance 10/13/2021 4 Encounters Date Type Department Care Team Description 05/01/2024 3:00 PM STEWARD/STEWARDESS DECK Office Visit [facility] Orthopedics and Sports Medicine [address] [facility] [address] [place] [address] Karen Christopher NP Primary osteoarthritis of left knee (Primary Dx); Left foot pain 04/05/2024 Orders Only [facility] Cardiology [address] [place] [address] Cristy Otoole 04/04/2024 5:47 PM STEWARD/STEWARDESS DECK - 04/10/2024 4:13 PM STEWARD/STEWARDESS DECK Hospital Encounter [facility] IMU [address] [place] [address] Nikolas Doty MD Bross, Deborah L F D, Marco Antonio Valdez MD Nikolic, Jelena, MD Nocturnal hypoxia (Primary Dx); Chest pain due to myocardial ischemia, unspecified ischemic chest pain type; Nocturnal oxygen desaturation Discharge Disposition: Discharge to an Rehab facility 04/02/2024 Telephone [facility] Orthopedics and Sports Medicine [address] [place] [address] [address] [place] [address] Mariangel Mallory MA 03/12/2024 ACO Quality [address] [address] Amira Hensley MA 03/12/2024 ACO Clinical Pharmacist [address] [address] Maria Eugenia Navarrete RPh 03/01/2024 1:03 PM CDT - 03/01/2024 11:59 PM CDT Hospital Encounter [facility]opedics and Sports Medicine [address] [place] [address] [address] [address] Discharge Disposition: Discharge to home or self care 03/01/2024 1:00 PM CDT Office Visit [facility]opedics and Sports Medicine [address] [place] [address] [address] [address] Karen Christopher NP Primary osteoarthritis of left knee (Primary Dx) 03/01/2024 Orders Only [facility] Orthopedics and Sports Medicine [address] [place] [address] [address] [address] Karen Christopher NP Left foot pain (Primary Dx) 02/28/2024 2:38 PM CDT - 02/28/2024 3:46 PM CDT Emergency [facility] Emergency Department [address] [place] [address] Acute pain of left knee (Primary Dx) Discharge Disposition: Discharge to home or self care 02/27/2024 Telephone [facility] Orthopedics and Sports Medicine [address] [place] [address] [address] [address] Antonina Sheehan MA from Last 3 Months Immunizations Name Administration Dates Next Due Influenza, Quadrivalent, Hig h Dose, Preservative Free, Intrr 03/18/2020 Influenza, Quadrivalent, Spl it, Preservative Free, Intramuscular 02/02/2019,01/16/2018,03/12/2016 Influenza, Trivalent, IM (MDV) 03/19/2020,2016 Influenza, Unspecified 02/10/2021 Moderna SARS-CoV-2 Monovalen t Vaccination (12+ YRS) 03/25/2021,07/08/2020,06/10/2020 PPD TEST 05/02/2006 Pneumococcal Conjugate PCV 13 03/12/2016 Pneumococcal Polysaccharide PPV23 09/27/2017 Tdap 02/13/2020,12/11/2015 ZOSTER Recombinant 03/19/2020,06/09/2018, 018 Surgical History Surgery Date Site/Laterality Comments BLADDER SURGERY 04/01/2019 - 05/01/2019 CATARACT EXTRACTION Right SURGERY OF LIP remove a knot from his lip KNEE ARTHROSCOPY W/ MENISCECTOMY Left CARDIAC STENT PLACEMENT 5 stents Medical History Medical History Date Comments Hypertension Hypertension Type 2 diabetes mellitus (HCC) Hypothyroidism CAD (coronary artery disease) Arthritis Stroke (HCC) 5 strokes, last in 2022 Myocardial infarction (HCC) Cataract Dizziness Balance problem Family History Medical History Relation Name Comments Coronary artery disease Father Marcelo ware artery disease; Other Mother old age Diabetes Other Heart attack Sister 1 Breast cancer Sister 2 Cancer -breast ; Relation Name Status Comments Father Mother Other Sister 1 Alive Sister 2 Alive Social History Tobacco Use Types Packs/Day [...] materials from doctor or pharmacy Sometimes 01/17/2024 [facility] Utilities Answer Date Recorded In the past 12 months has e [employer], gas, oil, or water company threatened to shut off services in your [...] often do you attend chur ch or presybeterian services? Never 04/05/2024 Do you belong to any clubs o r organizations such as confucianist groups, unions, fraternal or athletic groups, or [...] any time in the past 12 [facility], were you homeless or living [...] on file Legal Sex Male 12:23 AM STEWARD/STEWARDESS DECK Gender Identity Not on file Sexual Orientation Not on file Obstetrics History Last Filed Vital Signs Vital Sign Reading Time Taken Comments Blood Pressure 128/76 05/01/2024 12:51 PM STEWARD/STEWARDESS DECK Pulse 74 05/01/2024 12:51 PM STEWARD/STEWARDESS DECK Temperature 36.8 ??C (98.3 ??F) 04/10/2024 11:[address] Respiratory Rate 20 04/10/2024 11:24 AM STEWARD/STEWARDESS DECK Oxygen Saturation 92% 04/10/2024 11:24 AM STEWARD/STEWARDESS DECK Inhaled Oxygen Concentration - - Weight 121.1 kg (267 lb) 05/01/2024 12:51 PM STEWARD/STEWARDESS DECK Height 177.8 cm (5' 10 ) 05/01/2024 12:51 PM STEWARD/STEWARDESS DECK Body Mass Index 38.31 05/01/2024 12:51 PM STEWARD/STEWARDESS DECK Plan of Treatment Health Maintenance Due Date Last Done Comments Hepatitis C Screening 1950 Dilated Eye Exam 1952 Hepatitis B Screening 1970 Well Visit 65+ 2017 Albumin Creatinine Ratio, Urine 10/28/2022 2 Foot Exam 10/28/2022 10/28/2021 Colon Cancer Screening-DNA Stool 12/01/2023 12/01/19 21 Covid-19 Vaccine (2023-2 5 season) 2024 03/25/2021, 07/08/2020, 06/10/2020 Influenza Vaccine (#1) 2024 , 03/19/2020, 03/18/2020, Additional history exists Hemoglobin A1C 02/29/2024 08/30/2023, 01/2024, 12/10/2022, Additional history exists Depression Screening 08/27/2024 08/28/2023, 05/27/2022, 03/09/2022, Additional history exists Fall Risk Assessment 04/10/2025 04/10/2024, 01/05/2022, 10/07/2021, Additional history exists eGFR 04/10/2025 04/10/2024, 04/01, 04/09/2024, Additional history exists Lipid Panel 04/13/2025 04/13/2024, 08/01, 02/04/2023, Additional history exists DTaP/Tdap/Td Vaccine (3 - Td or Tdap) 02/12/2030 02/13/2020, 12/11/2015 Pneumococcal vaccine 65+ Completed 09/27/2017, 03/02 Zoster Vaccine Completed 03/19/2020, 0 11/2018, 03/27/2018 Prostate Cancer Screening-PSA Discontinued 10/28/2021 Medical Devices Implanted Type Area Pediatric Clinical Nurse Specialist Device Identifier Shelf Expiration Date Model / Serial / Lot [employer] Daysi Synergy Xd Monorail 3.5mm 12mm 144cm Delivery System 1 Access [id number] - [id number] Implanted:Qty: 1 on 08/29/2023 by Louie Lomeli MD at [facility] Stent [employer] Daysi 10/19/2024 [id number] / / [id number] Black V[employer] Stent Coronary De Rx Cocr Xience Skypoint [id number] - [id number] Implanted:Qty: 1 on 12/17/2021 by Louie Lomeli MD at [facility] [employer] 08/24/2023 [id number] [employer] Stent Coronary De Rx Cocr Xience Skypoint [id number] [id number] - [id number] Implanted:Qty: 1 on 12/17/2021 by Louie Lomeli MD at [facility] [employer] 08/28/2023 [id number] [employer] Daysi Synergy 3mm 16mm 144cm Radiopaque 1 Access Port Inflation Lumen [id number] - [id number] Implanted:Qty: 1 on 12/22/2021 by Louie Lomeli MD at [facility] [employer] Daysi 09/04/2022 [id number] / / [id number] TerMast[employer] C Angio-Seal Vip 6fr Closere Device [id number] - [id number] Implanted:Qty: 1 on 12/22/2021 by Louie Lomeli MD at [facility] [employer] C 09/29/2022 [id number] / / [id number] Procedures Procedure Name Priority Date/Time Associated Diagnosis Comments MT ARTHROCENTESIS ASPIR&/INJ MAJOR JT/BURSA W/O US Routine 05/01/2024 3:00 PM STEWARD/STEWARDESS DECK Primary osteoarthritis of left knee POCT GLUCOSE DEVICE Routine 04/10/2024 11:28 AM STEWARD/STEWARDESS DECK POCT GLUCOSE DEVICE Routine 04/10/2024 8 :01 AM STEWARD/STEWARDESS DECK POCT GLUCOSE DEVICE Routine 04/10/2024 2 :33 AM STEWARD/STEWARDESS DECK EGFR Routine 04/10/2024 2:30 AM STEWARD/STEWARDESS DECK DIFFERENTIAL AUTO Routine 04/10/2024 2:3 0 AM STEWARD/STEWARDESS DECK PHOSPHORUS Routine 04/10/2024 2:30 AM STEWARD/STEWARDESS DECK CBC WITH AUTO DIFFERENTIAL Routine 04/10/2024 2:30 AM STEWARD/STEWARDESS DECK MAGNESIUM Routine 04/10/2024 2:30 AM STEWARD/STEWARDESS DECK COMPREHENSIVE METABOLIC PANEL Routine 04/10/2024 2:30 AM STEWARD/STEWARDESS DECK EGFR Timed 04/10/2024 12:05 AM STEWARD/STEWARDESS DECK CREATININE Timed 04/10/2024 12:05 AM STEWARD/STEWARDESS DECK CBC WITHOUT DIFFERENTIAL Timed 04/10/2024 12:05 AM STEWARD/STEWARDESS DECK POCT GLUCOSE DEVICE Routine 04/09/2024 8 :55 PM STEWARD/STEWARDESS DECK POCT GLUCOSE DEVICE Routine 04/09/2024 5 :11 PM STEWARD/STEWARDESS DECK POCT GLUCOSE DEVICE Routine 04/09/2024 11:19 AM STEWARD/STEWARDESS DECK POCT GLUCOSE DEVICE Routine 04/09/2024 7 :38 AM STEWARD/STEWARDESS DECK POCT GLUCOSE DEVICE Routine 04/09/2024 2 :37 AM STEWARD/STEWARDESS DECK EGFR Routine 04/09/2024 2:15 AM STEWARD/STEWARDESS DECK DIFFERENTIAL AUTO Routine 04/09/2024 2:1 5 AM STEWARD/STEWARDESS DECK PHOSPHORUS Routine 04/09/2024 2:15 AM STEWARD/STEWARDESS DECK CBC WITH AUTO DIFFERENTIAL Routine 04/09/2024 2:15 AM STEWARD/STEWARDESS DECK MAGNESIUM Routine 04/09/2024 2:15 AM STEWARD/STEWARDESS DECK COMPREHENSIVE METABOLIC PANEL Routine 04/09/2024 2:15 AM STEWARD/STEWARDESS DECK POCT GLUCOSE DEVICE Routine 04/08/2024 8 :41 PM STEWARD/STEWARDESS DECK POCT GLUCOSE DEVICE Routine 04/08/2024 4 :45 PM STEWARD/STEWARDESS DECK POCT GLUCOSE DEVICE Routine 04/08/2024 11:51 AM STEWARD/STEWARDESS DECK POCT GLUCOSE DEVICE Routine 04/08/2024 8 :41 AM STEWARD/STEWARDESS DECK EGFR Routine 04/08/2024 3:00 AM STEWARD/STEWARDESS DECK DIFFERENTIAL AUTO Routine 04/08/2024 3:0 0 AM STEWARD/STEWARDESS DECK PHOSPHORUS Routine 04/08/2024 3:00 AM STEWARD/STEWARDESS DECK CBC WITH AUTO DIFFERENTIAL Routine 04/08/2024 3:00 AM STEWARD/STEWARDESS DECK MAGNESIUM Routine 04/08/2024 3:00 AM STEWARD/STEWARDESS DECK COMPREHENSIVE METABOLIC PANEL Routine 04/08/2024 3:00 AM STEWARD/STEWARDESS DECK POCT GLUCOSE DEVICE Routine 04/08/2024 1 :58 AM STEWARD/STEWARDESS DECK POCT GLUCOSE DEVICE Routine 04/07/2024 8 :27 PM STEWARD/STEWARDESS DECK POCT GLUCOSE DEVICE Routine 04/07/2024 5 :01 PM STEWARD/STEWARDESS DECK POCT GLUCOSE DEVICE Routine 04/07/2024 11:47 AM STEWARD/STEWARDESS DECK EGFR Routine 04/07/2024 9:18 AM STEWARD/STEWARDESS DECK DIFFERENTIAL AUTO Routine 04/07/2024 9:1 8 AM STEWARD/STEWARDESS DECK PHOSPHORUS Routine 04/07/2024 9:18 AM STEWARD/STEWARDESS DECK CBC WITH AUTO DIFFERENTIAL Routine 04/07/2024 9:18 AM STEWARD/STEWARDESS DECK MAGNESIUM Routine 04/07/2024 9:18 AM STEWARD/STEWARDESS DECK COMPREHENSIVE METABOLIC PANEL Routine 04/07/2024 9:18 AM STEWARD/STEWARDESS DECK POCT GLUCOSE DEVICE Routine 04/07/2024 8 :24 AM STEWARD/STEWARDESS DECK POCT GLUCOSE DEVICE Routine 04/06/2024 8 :32 PM STEWARD/STEWARDESS DECK POCT GLUCOSE DEVICE Routine 04/06/2024 5 :18 PM STEWARD/STEWARDESS DECK URINALYSIS AND REFLEX TO MICROSCOPIC AND CULTURE Routine 04/06/2024 4:18 PM STEWARD/STEWARDESS DECK XR ANKLE LEFT 3 OR MORE VIEWS IP Routine 04/06/2024 3:14 PM STEWARD/STEWARDESS DECK XR FOOT LEFT 3 OR MORE VIEWS IP Routine 04/06/2024 3:14 PM STEWARD/STEWARDESS DECK POCT GLUCOSE DEVICE Routine 04/06/2024 12:05 PM STEWARD/STEWARDESS DECK BLOOD GAS, VENOUS Routine 04/06/2024 10:20 AM STEWARD/STEWARDESS DECK PULSE OXIMETRY STUDY Routine 04/06/2024 9:53 AM STEWARD/STEWARDESS DECK POCT GLUCOSE DEVICE Routine 04/06/2024 8 :26 AM STEWARD/STEWARDESS DECK EGFR Routine 04/06/2024 2:21 AM STEWARD/STEWARDESS DECK DIFFERENTIAL AUTO Routine 04/06/2024 2:2 1 AM STEWARD/STEWARDESS DECK CBC WITH AUTO DIFFERENTIAL Routine 04/06/2024 2:21 AM STEWARD/STEWARDESS DECK MAGNESIUM Routine 04/06/2024 2:21 AM STEWARD/STEWARDESS DECK COMPREHENSIVE METABOLIC PANEL Routine 04/06/2024 2:21 AM STEWARD/STEWARDESS DECK POCT GLUCOSE DEVICE Routine 04/06/2024 1 :58 AM STEWARD/STEWARDESS DECK POCT GLUCOSE DEVICE Routine 04/05/2024 8 :47 PM STEWARD/STEWARDESS DECK POCT GLUCOSE DEVICE Routine 04/05/2024 5 :20 PM STEWARD/STEWARDESS DECK ECG 12-LEAD Routine 04/05/2024 2:40 PM STEWARD/STEWARDESS DECK POCT GLUCOSE DEVICE Routine 04/05/2024 1 :26 PM STEWARD/STEWARDESS DECK STRESS TEST FOR DUAL READ IP Routine 04/05/2024 1:22 PM STEWARD/STEWARDESS DECK NM MPI SPECT (REST AND/OR STRESS) MULTIPLE STUDIES IP Routine 04/05/2024 1:22 PM STEWARD/STEWARDESS DECK POCT GLUCOSE DEVICE Routine 04/05/2024 8 :33 AM STEWARD/STEWARDESS DECK EGFR Routine 04/05/2024 6:48 AM STEWARD/STEWARDESS DECK DIFFERENTIAL AUTO Routine 04/05/2024 6:4 8 AM STEWARD/STEWARDESS DECK CBC WITH AUTO DIFFERENTIAL Routine 04/05/2024 6:48 AM STEWARD/STEWARDESS DECK MAGNESIUM Routine 04/05/2024 6:48 AM STEWARD/STEWARDESS DECK COMPREHENSIVE METABOLIC PANEL Routine 04/05/2024 6:48 AM STEWARD/STEWARDESS DECK POCT GLUCOSE DEVICE Routine 04/05/2024 2 :22 AM STEWARD/STEWARDESS DECK TROPONIN T HIGH-SENSITIVITY 4-HR Timed 04/04/2024 11:16 PM STEWARD/STEWARDESS DECK POCT GLUCOSE DEVICE Routine 04/04/2024 9 :25 PM STEWARD/STEWARDESS DECK EGFR STAT 04/04/2024 7:30 PM STEWARD/STEWARDESS DECK CREATININE STAT 04/04/2024 7:30 PM STEWARD/STEWARDESS DECK CBC WITHOUT DIFFERENTIAL STAT 04/04/2024 7:30 PM STEWARD/STEWARDESS DECK TROPONIN T HIGH-SENSITIVITY 2-HOUR Timed 04/04/2024 7:30 PM STEWARD/STEWARDESS DECK POCT GLUCOSE DEVICE Routine 04/04/2024 7 :25 PM STEWARD/STEWARDESS DECK APTT STAT 04/04/2024 5:57 PM STEWARD/STEWARDESS DECK PROTIME-INR STAT 04/04/2024 5:57 PM STEWARD/STEWARDESS DECK EGFR STAT 04/04/2024 5:57 PM STEWARD/STEWARDESS DECK PRO B-TYPE NATRIURETIC PEPTIDE Routine 04/04/2024 5:57 PM STEWARD/STEWARDESS DECK DIFFERENTIAL AUTO STAT 04/04/2024 5:5 7 PM STEWARD/STEWARDESS DECK TROPONIN T HIGH-SENSITIVITY SERIES (BASELINE, 2HR, 4HR, 6HR) STAT 04/04/2024 5:57 PM STEWARD/STEWARDESS DECK COMPREHENSIVE METABOLIC PANEL STAT 04/04/2024 5:57 PM STEWARD/STEWARDESS DECK CBC WITH AUTO DIFFERENTIAL STAT 04/04/2024 5:57 PM STEWARD/STEWARDESS DECK XR CHEST 1 VIEW ED 04/04/2024 5:27 PM STEWARD/STEWARDESS DECK ECG 12-LEAD STAT 04/04/2024 5:11 PM STEWARD/STEWARDESS DECK XR KNEE LEFT 4 OR MORE VIEWS [...] Recently Relevant to Health Maintenance Results * MT ARTHROCENTESIS ASPIR&/INJ MAJOR JT/BURSA W/O US (05/01/2024 3:00 PM STEWARD/STEWARDESS DECK) Narrative Karen Christopher NP - 05/01/2024 3:00 PM STEWARD/STEWARDESS DECK Karen Christopher NP ? 05/01/2024 ??1:31 PM [...] the procedure well with no immediate complications Karen Christopher WHEEL ALIGNMENT MECHANIC IN CLINIC/BEDSIDE ORDER ALLEGRA Final Result * POCT glucose (04/10/2024 11:28 AM STEWARD/STEWARDESS DECK) Glucose, POC 187 70 - 199 mg/dL Blood 04/10/2024 11:2 8 AM STEWARD/STEWARDESS DECK 04/10/2024 11:28 AM STEWARD/STEWARDESS DECK Jessenia Rizvi MD LAB POCT ORDERABLES - DEVICE F inal Result [facility] ([place]) 1 [facility] [place] [address] * POCT glucose (04/10/2024 8:01 AM STEWARD/STEWARDESS DECK) Glucose, POC 135 70 - 199 mg/dL Blood 04/10/2024 8:01 AM STEWARD/STEWARDESS DECK 04/10/2024 8:01 AM STEWARD/STEWARDESS DECK Jessenia Rizvi MD LAB POCT ORDERABLES - DEVICE F inal Result Performing Organization Address [facility]/ZIP Co de Phone Number [facility] ([place]) 1 [facility] [place] [address] * POCT glucose (04/10/2024 2:33 AM STEWARD/STEWARDESS DECK) Glucose, POC 129 70 - 199 mg/dL Blood 04/10/2024 2:33 AM STEWARD/STEWARDESS DECK 04/10/2024 2:33 AM STEWARD/STEWARDESS DECK Marco Antonio Niño MD LAB POCT ORDERABLES - DEVICE Fi nal Result Performing Organization Address [facility] Co de Phone Number [facility] ([place]) 1 [facility] [place] [address] * eGFR (04/10/2024 2:30 AM STEWARD/STEWARDESS DECK) eGFR 61 >=60 mL/min/1. 73 m2 Comment: [...] last reviewed 2021. Blood 04/10/2024 2:30 AM STEWARD/STEWARDESS DECK 04/10/2024 4:05 AM STEWARD/STEWARDESS DECK us Krystal Araujo MD LAB BLOOD ORDERABLES Fi nal Result [facility] ([place]) 1 [facility] [place] [address] * (ABNORMAL) Differential, auto (04/10/2024 2:30 AM STEWARD/STEWARDESS DECK) Neutrophil abs 8.2(H) 1.5 - 6.5 K/cumm [...] revised on 2017. Blood 04/10/2024 2:30 AM STEWARD/STEWARDESS DECK 04/10/2024 4:02 AM STEWARD/STEWARDESS DECK us Krystal Araujo MD LAB BLOOD ORDERABLES Fi nal Result [facility] ([place]) 1 [facility] Department [place] [address] * (ABNORMAL) CBC with auto differential (04/10/2024 2:30 AM STEWARD/STEWARDESS DECK) WBC 10.7(H) 3.8 - 9.9 K/cumm Hgb 13.3 13.0 - 17.5 g/dL [facility] ([place]) Hct 41.7 38.9 - 50.3 % [facility] ([place]) Plt 219 150 - 400 K/cumm [facility] ([place]) MPV 10.2 9.1 - 12.3 fL [facility] ([place]) RBC 4.50 4.30 - 5.80 M/cumm [facility] ([place]) MCV 92.7 81.3 - 96.4 fL [facility] ([place]) MCH 29.6 27.1 - 33.3 pg [facility] ([place]) MCHC 31.9(L) 32.3 - 35.7 g/dL [facility] ([place]) RDW CV 13.6 11.1 - 14.9 % [facility] ([place]) RDW SD 46.4 35.7 - 48.1 fL [facility] ([place]) NRBC abs 0.00 0.00 - 0.01 K/cumm [facility] ([place]) Blood 04/10/2024 2:30 AM STEWARD/STEWARDESS DECK 04/10/2024 4:02 AM STEWARD/STEWARDESS DECK Krystal Araujo MD LAB BLOOD ORDERABLES Fi nal Result [facility] ([place]) 1 [facility] [place] [address] * Phosphorus (04/10/2024 2:30 AM STEWARD/STEWARDESS DECK) Phosphorus, pl 2.5 2.3 - 4.5 mg/dL Blood 04/10/2024 2:30 AM STEWARD/STEWARDESS DECK 04/10/2024 4:05 AM STEWARD/STEWARDESS DECK Marco Antonio Niño MD LAB BLOOD ORDERABLES Final Resu lt [facility] ([place]) 1 [facility] [place] [address] * Magnesium (04/10/2024 2:30 AM STEWARD/STEWARDESS DECK) Magnesium 1.9 1.4 - 2.5 mg/dL Blood 04/10/2024 2:30 AM STEWARD/STEWARDESS DECK 04/10/2024 4:05 AM STEWARD/STEWARDESS DECK Krystal Erick Araujo MD LAB BLOOD ORDERABLES Fi nal Result [facility] ([place]) 1 [facility] Department [place] [address] * Comprehensive metabolic panel (04/10/2024 2:30 AM STEWARD/STEWARDESS DECK) Sodium 143 135 - 145 mmol/L Potassium, [...] 123 70 - 199 mg/dL [facility] ([place] [...] [facility] ([place]) Blood 04/10/2024 2:30 AM STEWARD/STEWARDESS DECK 04/10/2024 4:05 AM STEWARD/STEWARDESS DECK us Krystal Araujo MD LAB BLOOD ORDERABLES Fi nal Result Performing Organization Address City/[facility]/ZIP Co de Phone Number [facility] ([place]) 1 [facility] [place] [address] * (ABNORMAL) eGFR (04/10/2024 12:05 AM STEWARD/STEWARDESS DECK) eGFR 59(L) >=60 mL/min/1. 73 m2 Comment: [...] reviewed 2021. Blood 04/10/2024 12:0 5 AM STEWARD/STEWARDESS DECK 04/10/2024 12:14 AM STEWARD/STEWARDESS DECK us Krystal Araujo MD LAB BLOOD ORDERABLES Fi nal Result Performing Organization Address City/[facility]/ZIP Co de Phone Number [facility] ([place]) 1 [facility] [place] [address] * (ABNORMAL) CBC without differential (04/10/2024 12:05 AM STEWARD/STEWARDESS DECK) WBC 10.9(H) 3.8 - 9.9 K/cumm Hgb [...] RDW SD 45.7 35.7 - 48.1 fL [facility] ([place]) NRBC abs 0.00 0.00 - 0.01 K/cumm [facility] ([place]) Blood 04/10/2024 12:0 5 AM STEWARD/STEWARDESS DECK 04/10/2024 12:14 AM STEWARD/STEWARDESS DECK Narrative [facility] ([place]) - 04/10/2024 12:36 AM STEWARD/STEWARDESS DECK While on enoxaparin us Krystal Araujo MD LAB BLOOD ORDERABLES Fi nal Result [facility] ([place]) 1 [facility] Department [place] [address] * Creatinine (04/10/2024 12:05 AM STEWARD/STEWARDESS DECK) Creatinine 1.29 0.80 - 1.30 mg/dL Blood 04/10/2024 12:0 5 AM STEWARD/STEWARDESS DECK 04/10/2024 12:14 AM STEWARD/STEWARDESS DECK Narrative [facility] ([place]) - 04/10/2024 12:56 AM STEWARD/STEWARDESS DECK While on enoxaparin us Krystal Araujo MD LAB BLOOD ORDERABLES Fi nal Result [facility] ([place]) 1 [facility] [place] [address] * (ABNORMAL) POCT glucose (04/09/2024 8:55 PM STEWARD/STEWARDESS DECK) Glucose, POC 200(H) 70 - 199 mg/dL Blood 04/09/2024 8:55 PM STEWARD/STEWARDESS DECK 04/09/2024 8:55 PM STEWARD/STEWARDESS DECK us Marco Antonio Niño MD LAB POCT ORDERABLES - DEVICE Fi nal Result Performing Organization Address City/[facility] Co de Phone Number [facility] ([place]) 1 [facility] [place] [address] * POCT glucose (04/09/2024 5:11 PM STEWARD/STEWARDESS DECK) Glucose, POC 150 70 - 199 mg/dL Blood 04/09/2024 5:11 PM STEWARD/STEWARDESS DECK 04/09/2024 5:11 PM STEWARD/STEWARDESS DECK us Marco Antonio Niño MD LAB POCT ORDERABLES - DEVICE Fi nal Result Performing Organization Address City/[facility]/ZIP Co de Phone Number [facility] ([place]) 1 [facility] [place] [address] * POCT glucose (04/09/2024 11:19 AM STEWARD/STEWARDESS DECK) Glucose, POC 193 70 - 199 mg/dL Blood 04/09/2024 11:1 9 AM STEWARD/STEWARDESS DECK 04/09/2024 11:19 AM STEWARD/STEWARDESS DECK us Marco Antonio Niño MD LAB POCT ORDERABLES - DEVICE Fi nal Result Performing Organization Address City/[facility]/ZIP Co de Phone Number [facility] ([place]) 1 [place] [address] * POCT glucose (04/09/2024 7:38 AM STEWARD/STEWARDESS DECK) Glucose, POC 142 70 - 199 mg/dL Blood 04/09/2024 7:38 AM STEWARD/STEWARDESS DECK 04/09/2024 7:38 AM STEWARD/STEWARDESS DECK Marco Antonio Niño MD LAB POCT ORDERABLES - DEVICE Fi nal Result Performing Organization Address [facility]/State/ZIP Co de Phone Number [facility] ([place]) 1 [place] [address] * POCT glucose (04/09/2024 2:37 AM STEWARD/STEWARDESS DECK) Glucose, POC 135 70 - 199 mg/dL Blood 04/09/2024 2:37 AM STEWARD/STEWARDESS DECK 04/09/2024 2:37 AM STEWARD/STEWARDESS DECK Marco Antonio Niño MD LAB POCT ORDERABLES - DEVICE Fi nal Result Performing Organization Address City/[facility]/ZIP Co de Phone Number [facility] ([place]) 1 [place] [address] * eGFR (04/09/2024 2:15 AM STEWARD/STEWARDESS DECK) eGFR 62 >=60 mL/min/1. 73 m2 Comment: [...] last reviewed 2021. Blood 04/09/2024 2:15 AM STEWARD/STEWARDESS DECK 04/09/2024 3:50 AM STEWARD/STEWARDESS DECK us Krystal Araujo MD LAB BLOOD ORDERABLES Fi nal Result [facility] ([place]) 1 [facility] Department [place] [address] * (ABNORMAL) Differential, auto (04/09/2024 2:15 AM STEWARD/STEWARDESS DECK) Neutrophil abs 8.5(H) 1.5 - 6.5 K/cumm [...] revised on 2017. Blood 04/09/2024 2:15 AM STEWARD/STEWARDESS DECK 04/09/2024 3:48 AM STEWARD/STEWARDESS DECK us Krystal Araujo MD LAB BLOOD ORDERABLES Fi nal Result [facility] ([place]) 1 [facility] Department [place] [address] * (ABNORMAL) CBC with auto differential (04/09/2024 2:15 AM STEWARD/STEWARDESS DECK) WBC 11.2(H) 3.8 - 9.9 K/cumm Hgb [...] % [facility] ([place]) RDW SD 45.6 35.7 - 48.1 fL [facility] ([place]) NRBC abs 0.00 0.00 - 0.01 K/cumm [facility] ([place]) Blood 04/09/2024 2:15 AM STEWARD/STEWARDESS DECK 04/09/2024 3:48 AM STEWARD/STEWARDESS DECK Krystal Araujo MD LAB BLOOD ORDERABLES Fi nal Result [facility] ([place]) 1 [facility] [place] [address] * Phosphorus (04/09/2024 2:15 AM STEWARD/STEWARDESS DECK) Phosphorus, pl 2.4 2.3 - 4.5 mg/dL Blood 04/09/2024 2:15 AM STEWARD/STEWARDESS DECK 04/09/2024 3:50 AM STEWARD/STEWARDESS DECK Marco Antonio Niño MD LAB BLOOD ORDERABLES Final Resu lt [facility] ([place]) 1 [facility] [place] [address] * Magnesium (04/09/2024 2:15 AM STEWARD/STEWARDESS DECK) Magnesium 2.1 1.4 - 2.5 mg/dL Blood 04/09/2024 2:15 AM STEWARD/STEWARDESS DECK 04/09/2024 3:50 AM STEWARD/STEWARDESS DECK Krystal Araujo MD LAB BLOOD ORDERABLES Fi nal Result [facility] ([place]) 1 [facility] [place] [address] * Comprehensive metabolic panel (04/09/2024 2:15 AM STEWARD/STEWARDESS DECK) Sodium 142 135 - 145 mmol/L Potassium, [...] [facility] ([place]) Blood 04/09/2024 2:15 AM STEWARD/STEWARDESS DECK 04/09/2024 3:50 AM STEWARD/STEWARDESS DECK us Krystal Araujo MD LAB BLOOD ORDERABLES Fi nal Result [facility] ([place]) 1 [facility] [place] [address] * (ABNORMAL) POCT glucose (04/08/2024 8:41 PM STEWARD/STEWARDESS DECK) Glucose, POC 216(H) 70 - 199 mg/dL Blood 04/08/2024 8:41 PM STEWARD/STEWARDESS DECK 04/08/2024 8:41 PM STEWARD/STEWARDESS DECK Marco Antonio Niño MD LAB POCT ORDERABLES - DEVICE Fi nal Result Performing Organization Address City/[facility]/ZIP Co de Phone Number [facility] ([place]) 1 [facility] [place] [address] * POCT glucose (04/08/2024 4:45 PM STEWARD/STEWARDESS DECK) Glucose, POC 199 70 - 199 mg/dL Blood 04/08/2024 4:45 PM STEWARD/STEWARDESS DECK 04/08/2024 4:45 PM STEWARD/STEWARDESS DECK Marco Antonio Niño MD LAB POCT ORDERABLES - DEVICE Fi nal Result Performing Organization Address City/[facility]/ZIP Co de Phone Number [facility] ([place]) 1 [facility] [place] [address] * POCT glucose (04/08/2024 11:51 AM STEWARD/STEWARDESS DECK) Glucose, POC 181 70 - 199 mg/dL Blood 04/08/2024 11:5 1 AM STEWARD/STEWARDESS DECK 04/08/2024 11:51 AM STEWARD/STEWARDESS DECK Marco Antonio Niño MD LAB POCT ORDERABLES - DEVICE Fi nal Result [facility] ([place]) 1 [facility] [place] [address] * POCT glucose (04/08/2024 8:41 AM STEWARD/STEWARDESS DECK) Glucose, POC 142 70 - 199 mg/dL Blood 04/08/2024 8:41 AM STEWARD/STEWARDESS DECK 04/08/2024 8:41 AM STEWARD/STEWARDESS DECK us Marco Antonio Niño MD LAB POCT ORDERABLES - DEVICE Fi nal Result Performing Organization Address [facility] Phone Number [facility] [place] 1 [facility] Department of Laboratories [place], [place] [id number] * eGFR (04/08/2024 3:00 AM STEWARD/STEWARDESS DECK) Pathologist [facility] eGFR 60 >=60 mL/min/1. 73 m2 Comment: [...] last reviewed 2021. Blood 04/08/2024 3:00 AM STEWARD/STEWARDESS DECK 04/08/2024 4:01 AM STEWARD/STEWARDESS DECK us Krystal Araujo MD LAB BLOOD ORDERABLES Fi nal Result [facility] ([place]) 1 [facility] [place] [address] * (ABNORMAL) Differential, auto (04/08/2024 3:00 AM STEWARD/STEWARDESS DECK) Neutrophil abs 8.6(H) 1.5 - 6.5 K/cumm [...] revised on 2017. Blood 04/08/2024 3:00 AM STEWARD/STEWARDESS DECK 04/08/2024 3:57 AM STEWARD/STEWARDESS DECK Krystal Araujo MD LAB BLOOD ORDERABLES Fi nal Result Performing Organization Address City/[facility] Co de Phone Number [facility] ([place]) 1 [facility] [place] [address] * (ABNORMAL) CBC with auto differential (04/08/2024 3:00 AM STEWARD/STEWARDESS DECK) WBC 11.2(H) 3.8 - 9.9 K/cumm Hgb [...] [facility] ([place]) Blood 04/08/2024 3:00 AM STEWARD/STEWARDESS DECK 04/08/2024 3:57 AM STEWARD/STEWARDESS DECK us Krystal Araujo MD LAB BLOOD ORDERABLES Fi nal Result Performing Organization Address City/[facility] Co de Phone Number [facility] ([place]) 1 [facility] [place] [address] * Phosphorus (04/08/2024 3:00 AM STEWARD/STEWARDESS DECK) Pathologist [facility] Phosphorus, pl 2.3 2.3 - 4.5 mg/dL Blood 04/08/2024 3:00 AM STEWARD/STEWARDESS DECK 04/08/2024 4:01 AM STEWARD/STEWARDESS DECK Marco Antonio Niño MD LAB BLOOD ORDERABLES Final Resu lt [facility] ([place]) 1 [facility] [place] [address] * Magnesium (04/08/2024 3:00 AM STEWARD/STEWARDESS DECK) [facility] Magnesium 1.8 1.4 - 2.5 mg/dL Blood 04/08/2024 3:00 AM STEWARD/STEWARDESS DECK 04/08/2024 4:01 AM STEWARD/STEWARDESS DECK Krystal Araujo MD LAB BLOOD ORDERABLES Fi nal Result Performing Organization Address [facility]/ZIP Co de Phone Number [facility] ([place]) 1 [facility] [place] [address] * (ABNORMAL) Comprehensive metabolic panel (04/08/2024 3:00 AM STEWARD/STEWARDESS DECK) [facility] Sodium 143 135 - 145 mmol/L Potassium, pl 3.5 3.3 - 4.9 mmol/L [facility] ([place]) Chloride 106 97 - 110 mmol/L [facility] ([place]) CO2 27 22 - 32 mmol/L [facility] ([place]) Anion gap 10 2 - 15 mmol/L [facility] ([place]) BUN 22 6 - 25 mg/dL [facility] ([place]) Creatinine 1.28 0.80 - 1.30 mg/dL [facility] ([place]) Glucose 138 70 - 199 mg/dL [facility] ([place]) Comment: Interpretive Data Fasting [...] [facility] ([place]) Blood 04/08/2024 3:00 AM STEWARD/STEWARDESS DECK 04/08/2024 4:01 AM STEWARD/STEWARDESS DECK Krystal Araujo MD LAB BLOOD ORDERABLES Fi nal Result Performing Organization Address [facility]/ZIP Co de Phone Number [facility] ([place]) 1 [facility] [place] [address] * POCT glucose (04/08/2024 1:58 AM STEWARD/STEWARDESS DECK) [facility] Signature Glucose, POC 140 70 - 199 mg/dL Blood 04/08/2024 1:58 AM STEWARD/STEWARDESS DECK 04/08/2024 1:58 AM STEWARD/STEWARDESS DECK Marco Antonio Niño MD LAB POCT ORDERABLES - DEVICE Fi nal Result Performing Organization Address City/[facility]/ZIP Co de Phone Number [facility] ([place]) 1 [facility] [place] [address] * (ABNORMAL) POCT glucose (04/07/2024 8:27 PM STEWARD/STEWARDESS DECK) Glucose, POC 218(H) 70 - 199 mg/dL Blood 04/07/2024 8:27 PM STEWARD/STEWARDESS DECK 04/07/2024 8:27 PM STEWARD/STEWARDESS DECK Marco Antonio Niño MD LAB POCT ORDERABLES - DEVICE Fi nal Result Performing Organization Address City/[facility]/ZIP Co de Phone Number [facility] ([place]) 1 [facility] [place] [address] * POCT glucose (04/07/2024 5:01 PM STEWARD/STEWARDESS DECK) Glucose, POC 193 70 - 199 mg/dL Blood 04/07/2024 5:01 PM STEWARD/STEWARDESS DECK 04/07/2024 5:01 PM STEWARD/STEWARDESS DECK Marco Antonio Niño MD LAB POCT ORDERABLES - DEVICE Fi nal Result Performing Organization Address [facility] Co de Phone Number [facility] ([place]) 1 [facility] [place] [address] * (ABNORMAL) POCT glucose (04/07/2024 11:47 AM STEWARD/STEWARDESS DECK) Glucose, POC 231(H) 70 - 199 mg/dL Blood 04/07/2024 11:4 7 AM STEWARD/STEWARDESS DECK 04/07/2024 11:47 AM STEWARD/STEWARDESS DECK Marco Antonio Niño MD LAB POCT ORDERABLES - DEVICE Fi nal Result Performing Organization Address City/[facility] Co de Phone Number [facility] ([place]) 1 [facility] [place] [address] * eGFR (04/07/2024 9:18 AM STEWARD/STEWARDESS DECK) eGFR 60 >=60 mL/min/1. 73 m2 Comment: [...] last reviewed 2021. Blood 04/07/2024 9:18 AM STEWARD/STEWARDESS DECK 04/07/2024 9:56 AM STEWARD/STEWARDESS DECK us Krystal Araujo MD LAB BLOOD ORDERABLES Fi nal Result [facility] ([place]) 1 [facility] [place] [address] * (ABNORMAL) Differential, auto (04/07/2024 9:18 AM STEWARD/STEWARDESS DECK) Neutrophil abs 8.8(H) 1.5 - 6.5 K/cumm Imm gran abs 0.2(H) 0.0 - 0.1 K/cumm [facility] ([place]) Lymphocyte abs 1.2 0.8 - 3.3 K/cumm [facility] ([place]) Monocyte abs 0.8 0.2 - 0.8 K/cumm [facility] ([place]) Eosinophil abs 0.2 0.0 - 0.5 K/cumm [facility] ([place]) Basophil abs 0.1 0.0 - 0.1 K/cumm [facility] ([place]) Neutrophil pct 78.2 % [facility] ([place]) Comment: [...] revised on 2017. Monocyte pct 7.2 % [facility] ([place]) Comment: Interpretive [...] revised on 2017. Blood 04/07/2024 9:18 AM STEWARD/STEWARDESS DECK 04/07/2024 9:56 AM STEWARD/STEWARDESS DECK us Krystal Araujo MD LAB BLOOD ORDERABLES Fi nal Result JULIETA YOLANDA ([place]) 1 [facility] Department [place] [address] * (ABNORMAL) CBC with auto differential (04/07/2024 9:18 AM STEWARD/STEWARDESS DECK) WBC 11.2(H) 3.8 - 9.9 K/cumm Hgb 13.6 13.0 - 17.5 g/dL [facility] ([place]) Hct 42.4 38.9 - 50.3 % [facility] ([place]) Plt 222 150 - 400 K/cumm [facility] [...] RDW SD 46.0 35.7 - 48.1 fL [facility] ([place]) NRBC abs 0.00 0.00 - 0.01 K/cumm [facility] ([place]) Blood 04/07/2024 9:18 AM STEWARD/STEWARDESS DECK 04/07/2024 9:56 AM STEWARD/STEWARDESS DECK us Krystal Araujo MD LAB BLOOD ORDERABLES Fi nal Result Performing Organization Address City/[facility]/ZIP Co de Phone Number JULIETA GUERRERO ([place]) 1 [facility] [place] [address] * Phosphorus (04/07/2024 9:18 AM STEWARD/STEWARDESS DECK) Phosphorus, pl 2.4 2.3 - 4.5 mg/dL Blood 04/07/2024 9:18 AM STEWARD/STEWARDESS DECK 04/07/2024 9:56 AM STEWARD/STEWARDESS DECK us Marco Antonio Niño MD LAB BLOOD ORDERABLES Final Resu lt [facility] ([place]) 1 [facility] [place] [address] * Magnesium (04/07/2024 9:18 AM STEWARD/STEWARDESS DECK) Magnesium 2.0 1.4 - 2.5 mg/dL Blood 04/07/2024 9:18 AM STEWARD/STEWARDESS DECK 04/07/2024 9:56 AM STEWARD/STEWARDESS DECK us Krystal Araujo MD LAB BLOOD ORDERABLES Fi nal Result [facility] ([place]) 1 [facility] Department [place] [address] * (ABNORMAL) Comprehensive metabolic panel (04/07/2024 9:18 AM STEWARD/STEWARDESS DECK) Sodium 144 135 - 145 mmol/L Potassium, pl 3.6 3.3 - 4.9 mmol/L [facility] Chloride 107 97 - 110 mmol/L [facility] CO2 26 22 - 32 mmol/L [facility] ([place] Anion gap 11 2 - 15 mmol/L [facility] ([place] BUN 20 6 - 25 mg/dL [facility] Creatinine 1.28 0.80 - 1.30 mg/dL [facility] Glucose 162 70 - 199 mg/dL [facility] ([place]) Comment: Interpretive Data Fasting [...] 50 Units/L [facility] ([place]) Blood 04/07/2024 9:18 AM STEWARD/STEWARDESS DECK 04/07/2024 9:56 AM STEWARD/STEWARDESS DECK us Krystal Araujo MD LAB BLOOD ORDERABLES Fi nal Result JUL[facility]ETA GU[facility]ERO ([place]) 1 [facility] [place] [address] * POCT glucose (04/07/2024 8:24 AM STEWARD/STEWARDESS DECK) Glucose, POC 178 70 - 199 mg/dL Blood 04/07/2024 8:24 AM STEWARD/STEWARDESS DECK 04/07/2024 8:24 AM STEWARD/STEWARDESS DECK us Marco Antonio Niño MD LAB POCT ORDERABLES - DEVICE Fi nal Result JULIETA GUERRERO ([place]) 1 [facility] [place] [address] * (ABNORMAL) POCT glucose (04/06/2024 8:32 PM STEWARD/STEWARDESS DECK) Glucose, POC 279(H) 70 - 199 mg/dL Blood 04/06/2024 8:32 PM STEWARD/STEWARDESS DECK 04/06/2024 8:32 PM STEWARD/STEWARDESS DECK Marco Antonio Niño MD LAB POCT ORDERABLES - DEVICE Fi nal Result JULIETA GUERRERO ([place]) 1 [facility] [place] [address] * (ABNORMAL) POCT glucose (04/06/2024 5:18 PM STEWARD/STEWARDESS DECK) Glucose, POC 236(H) 70 - 199 mg/dL Blood 04/06/2024 5:18 PM STEWARD/STEWARDESS DECK 04/06/2024 5:18 PM STEWARD/STEWARDESS DECK us Marco Antonio Nioñ MD LAB POCT ORDERABLES - DEVICE Fi nal Result Performing Organization Address [facility] Co de Phone Number [facility] ([place]) 1 [facility] Department [place] [address] * (ABNORMAL) Urinalysis reflex to microscopic and culture Urine (04/06/2024 4:18 PM STEWARD/STEWARDESS DECK) Color, ur Yellow Yellow Clarity, ur Turbid(A) [...] tendency for uric acid stone formation. Source: [facility] [employer] Current Interpretive Data was last revised on [...] [facility] ([place]) Urine 04/06/2024 4:18 PM STEWARD/STEWARDESS DECK 04/06/2024 4:24 PM STEWARD/STEWARDESS DECK us Krystal Araujo MD LAB MICROBIOLOGY - GENE RAL ORDERABLES Final Result [facility] [place] 1 [facility] Department of Laboratories [place] [id number] * XR Foot Left 3 or More Views (04/06/2024 3:14 PM STEWARD/STEWARDESS DECK) Anatomical Region Laterality Modality Lower Extremities, Foot Left Computed Radiography 04/06/2024 5:50 PM STEWARD/STEWARDESS DECK Narrative 04/06/2024 5:52 PM STEWARD/STEWARDESS DECK EXAM DESCRIPTION: XR FOOT LEFT 3 OR [...] PM T: ??04/06/2024 5:52 PM Report ID: [id number] Reading Location: ??[id number] Procedure Note Xavi Driscoll MD - 04/06/2024 [...] Xavi Driscoll M.D. AR: REILLY Report ID: [id number] Reading Location: [place] [address] Marco Antonio Niño MD IMG XR PROCEDURES Final Result * XR Ankle Left 3 or More Views (04/06/2024 3:14 PM STEWARD/STEWARDESS DECK) Anatomical Region Laterality Modality Lower Extremities, Ankle Left Compute d Radiography 04/06/2024 5:47 PM STEWARD/STEWARDESS DECK Narrative 04/06/2024 5:49 PM STEWARD/STEWARDESS DECK EXAM DESCRIPTION: XR ANKLE LEFT 3 OR [...] PM T: ??04/06/2024 5:49 PM Report ID: [id number] Reading Location: ??[id number] Procedure Note Xavi Driscoll MD - 04/06/2024 [...] Xavi Driscoll M.D. AR: REILLY Report ID: [id number] Reading Location: [id number] Marco Antonio Niño MD IMG XR PROCEDURES Final Result * (ABNORMAL) POCT glucose (04/06/2024 12:05 PM STEWARD/STEWARDESS DECK) Glucose, POC 207(H) 70 - 199 mg/dL Blood 04/06/2024 12:0 5 PM STEWARD/STEWARDESS DECK 04/06/2024 12:05 PM STEWARD/STEWARDESS DECK Marco Antonio Niño MD LAB POCT ORDERABLES - DEVICE Fi nal Result Performing Organization Address [facility] de Phone Number JULIETA GUERRERO ([place]) 1 [facility] [place] [address] * Blood gas, venous (04/06/2024 10:20 AM STEWARD/STEWARDESS DECK) pH, Venous 7.42 7.32 - 7.43 PCO2, Venous 45 40 - 50 mmHg [facility] ([place]) PO2, Venous 64 mmHg [facility] ([place]) HCO3 Venous, Calculated 28 20 - 30 mmol/L [facility] ([place]) BE, venous 4 mmol/L [facility] ([place]) Comment: Interpretive Data No Reference Range Established Current Interpretive Data was last revised on 2017. Blood 04/06/2024 10:2 0 AM STEWARD/STEWARDESS DECK 04/06/2024 10:27 AM STEWARD/STEWARDESS DECK Marco Antonio Niño MD LAB BLOOD ORDERABLES Final Resu lt Performing Organization Address [facility] de Phone Number JULIETA GUERRERO ([place]) 1 [facility] [place] [address] * POCT glucose (04/06/2024 8:26 AM STEWARD/STEWARDESS DECK) Glucose, POC 168 70 - 199 mg/dL Blood 04/06/2024 8:26 AM STEWARD/STEWARDESS DECK 04/06/2024 8:26 AM STEWARD/STEWARDESS DECK Marco Antonio Niño MD LAB POCT ORDERABLES - DEVICE Fi nal Result Performing Organization Address [facility] Co de Phone Number JULIETA GUERRERO ([place]) 1 [facility] [place] [address] * (ABNORMAL) eGFR (04/06/2024 2:21 AM STEWARD/STEWARDESS DECK) eGFR 56(L) >=60 mL/min/1. 73 m2 Comment: [...] last reviewed 2021. Blood 04/06/2024 2:21 AM STEWARD/STEWARDESS DECK 04/06/2024 3:51 AM STEWARD/STEWARDESS DECK us Krystal Araujo MD LAB BLOOD ORDERABLES Fi nal Result JULIETA GUERRERO ([place]) 1 [facility] Department [place] [address] * (ABNORMAL) Differential, auto (04/06/2024 2:21 AM STEWARD/STEWARDESS DECK) Neutrophil abs 8.3(H) 1.5 - 6.5 K/cumm [...] revised on 2017. Blood 04/06/2024 2:21 AM STEWARD/STEWARDESS DECK 04/06/2024 3:50 AM STEWARD/STEWARDESS DECK us Krystal Araujo MD LAB BLOOD ORDERABLES Fi nal Result [facility] ([place]) 1 [facility] Department [place] [address] * (ABNORMAL) CBC with auto differential (04/06/2024 2:21 AM STEWARD/STEWARDESS DECK) WBC 11.0(H) 3.8 - 9.9 K/cumm Hgb 13.4 13.0 - 17.5 g/dL [facility] ([place]) Hct 41.4 38.9 - 50.3 % [facility] ([place]) Plt 216 150 - 400 K/cumm [facility] ([place]) MPV 10.5 9.1 - 12.3 fL [facility] ([place]) RBC 4.45 4.30 - 5.80 M/cumm [facility] ([place]) MCV 93.0 81.3 - 96.4 fL [facility] ([place]) MCH 30.1 27.1 - 33.3 pg [facility] ([place]) MCHC 32.4 32.3 - 35.7 g/dL [facility] ([place]) RDW CV 13.7 11.1 - 14.9 % [facility] ([place]) RDW SD 46.5 35.7 - 48.1 fL [facility] ([place]) NRBC abs 0.00 0.00 - 0.01 K/cumm [facility] ([place]) Blood 04/06/2024 2:21 AM STEWARD/STEWARDESS DECK 04/06/2024 3:50 AM STEWARD/STEWARDESS DECK us Krystal Araujo MD LAB BLOOD ORDERABLES Fi nal Result JULIETA GUERRERO ([place]) 1 [facility] Department [place] [address] * Magnesium (04/06/2024 2:21 AM STEWARD/STEWARDESS DECK) Magnesium 2.2 1.4 - 2.5 mg/dL Blood 04/06/2024 2:21 AM STEWARD/STEWARDESS DECK 04/06/2024 3:51 AM STEWARD/STEWARDESS DECK us Krystal Araujo MD LAB BLOOD ORDERABLES Fi nal Result JULIETA GUERRERO ([place]) 1 [facility] Department [place] [address] * (ABNORMAL) Comprehensive metabolic panel (04/06/2024 2:21 AM STEWARD/STEWARDESS DECK) Sodium 143 135 - 145 mmol/L Potassium, [...] [facility] ([place]) Blood 04/06/2024 2:21 AM STEWARD/STEWARDESS DECK 04/06/2024 3:51 AM STEWARD/STEWARDESS DECK us Krystal Araujo MD LAB BLOOD ORDERABLES Fi nal Result Performing Organization Address City/[facility] Co de Phone Number [facility] [place]) 1 [facility] [place] [address] * POCT glucose (04/06/2024 1:58 AM STEWARD/STEWARDESS DECK) Glucose, POC 186 70 - 199 mg/dL Blood 04/06/2024 1:58 AM STEWARD/STEWARDESS DECK 04/06/2024 1:58 AM STEWARD/STEWARDESS DECK us Marco Antonio Nioñ MD LAB POCT ORDERABLES - DEVICE Fi nal Result Performing Organization Address [facility] de Phone Number [facility] ([place]) 1 [facility] [place] [address] * (ABNORMAL) POCT glucose (04/05/2024 8:47 PM STEWARD/STEWARDESS DECK) Glucose, POC 200(H) 70 - 199 mg/dL Blood 04/05/2024 8:47 PM STEWARD/STEWARDESS DECK 04/05/2024 8:47 PM STEWARD/STEWARDESS DECK us Marco Antonio Niño MD LAB POCT ORDERABLES - DEVICE Fi nal Result Performing Organization Address [facility] Co de Phone Number [facility] ([place]) 1 [facility] [place] [address] * POCT glucose (04/05/2024 5:20 PM STEWARD/STEWARDESS DECK) Glucose, POC 174 70 - 199 mg/dL Blood 04/05/2024 5:20 PM STEWARD/STEWARDESS DECK 04/05/2024 5:20 PM STEWARD/STEWARDESS DECK us Marco Antonio Niño MD LAB POCT ORDERABLES - DEVICE Fi nal Result Performing Organization Address City/[facility] Co de Phone Number JULIETA GUERRERO ([place]) 1 [facility] Department [place] [address] * ECG 12 lead (04/05/2024 2:40 PM STEWARD/STEWARDESS DECK) 04/05/2024 2:40 PM STEWARD/STEWARDESS DECK Narrative [facility] - 04/05/2024 3:45 PM STEWARD/STEWARDESS DECK Vent Rate: 67 bpm RR Interval: 890 msec MT Interval: 134 msec QRS Duration: 102 msec QT Interval: 446 msec QTC Interval: 461 msec P-R-T Morton: -49 - -22 - 97 degrees IMPRESSION: [...] ORDERABLES Final R esult Performing Organization Address [facility] de Phone Number [facility] * POCT glucose (04/05/2024 1:26 PM STEWARD/STEWARDESS DECK) Glucose, POC 159 70 - 199 mg/dL Blood 04/05/2024 1:26 PM STEWARD/STEWARDESS DECK 04/05/2024 1:26 PM STEWARD/STEWARDESS DECK Marco Antonio Niño MD LAB POCT ORDERABLES - DEVICE Fi nal Result Performing Organization Address [facility] Co de Phone Number [facility] ([place]) 1 [facility] Department [place] [address] * NM MPI SPECT (Rest and/or Stress) Multiple Studies (04/05/2024 1:22 PM STEWARD/STEWARDESS DECK) Anatomical Region Laterality Modality Body N/A Nuclear Medicine 04/05/2024 1:30 PM STEWARD/STEWARDESS DECK Narrative 04/05/2024 1:36 PM STEWARD/STEWARDESS DECK EXAM DESCRIPTION: ?? NM MPI SPECT (REST [...] PM T: ??04/05/2024 1:36 PM Report ID: [id number] Reading Location: ??[id number] Procedure Note Ovidio Rae MD - 04/05/2024 [...] Electronically signed by Ovidio Rae M.D. LB: LB Report ID: [id number] Reading Location: [id number] Marco Antonio Niño MD [facility] PROCED[facility] Final Result * Stress Test for Myocardial Perfusion (04/05/2024 1:22 PM STEWARD/STEWARDESS DECK) Anatomical Region Laterality Modality Nuclear Medicine 04/05/2024 11:4 5 AM STEWARD/STEWARDESS DECK Narrative 04/05/2024 4:12 PM STEWARD/STEWARDESS DECK [address] [address] [employer] Report Patient Name: TNAIA VIZCARRA R : 1950 Study Date: 04/05/2024 11:45:00 AM Gender: M Tech: ??Location: [id number] Ref Provider: MARCO ANTONIO NIÑO Height(Cm): 178 [...] By: Dr Devin Linton 04/05/2024 4:11:19 PM STEWARD/STEWARDESS DECK Procedure Note Devin Linton MD - 04/05/[address] [place] [address] [employer] ([employer]) Report Patient Name: TANIA VIZCARRA R : 1950 Study Date: 04/05/2024 11:45:00 AM Gender: M Tech: Location: [place] [address] Ref Provider: MARCO ANTONIO NIÑO Height(Cm): 178 [...] By: Dr Devin Linton 04/05/2024 4:11:19 PM STEWARD/STEWARDESS DECK Marco Antonio Niño MD CV STRESS PROCEDURES Final Resu lt * (ABNORMAL) POCT glucose (04/05/2024 8:33 AM STEWARD/STEWARDESS DECK) Glucose, POC 200(H) 70 - 199 mg/dL Blood 04/05/2024 8:33 AM STEWARD/STEWARDESS DECK 04/05/2024 8:33 AM STEWARD/STEWARDESS DECK Marco Antonio Niño MD LAB POCT ORDERABLES - DEVICE Fi nal Result [facility] [place] 1 [facility] [place] [address] * (ABNORMAL) eGFR (04/05/2024 6:48 AM STEWARD/STEWARDESS DECK) eGFR 51(L) >=60 mL/min/1. 73 m2 Comment: [...] last reviewed 2021. Blood 04/05/2024 6:48 AM STEWARD/STEWARDESS DECK 04/05/2024 6:52 AM STEWARD/STEWARDESS DECK us Krystal Araujo MD LAB BLOOD ORDERABLES Fi nal Result JULIETA GUERRERO ([place]) 1 [facility] Department [place] [address] * (ABNORMAL) Differential, auto (04/05/2024 6:48 AM STEWARD/STEWARDESS DECK) Neutrophil abs 8.2(H) 1.5 - 6.5 K/cumm [...] revised on 2017. Blood 04/05/2024 6:48 AM STEWARD/STEWARDESS DECK 04/05/2024 6:52 AM STEWARD/STEWARDESS DECK Krystal Araujo MD LAB BLOOD ORDERABLES Fi nal Result [facility] ([place]) 1 [facility] Department [place] [address] * (ABNORMAL) CBC with auto differential (04/05/2024 6:48 AM STEWARD/STEWARDESS DECK) WBC 10.8(H) 3.8 - 9.9 K/cumm Hgb [...] [facility] ([place]) Blood 04/05/2024 6:48 AM STEWARD/STEWARDESS DECK 04/05/2024 6:52 AM STEWARD/STEWARDESS DECK us Krystal Araujo MD LAB BLOOD ORDERABLES Fi nal Result JULIETA GUERRERO ([place]) 1 [facility] Department [place] [address] * Magnesium (04/05/2024 6:48 AM STEWARD/STEWARDESS DECK) Magnesium 1.6 1.4 - 2.5 mg/dL Blood 04/05/2024 6:48 AM STEWARD/STEWARDESS DECK 04/05/2024 6:52 AM STEWARD/STEWARDESS DECK us Ekanga Erick Petters MD LAB BLOOD ORDERABLES Fi nal Result JULIETA [facility] ([place]) 1 [facility] Department [place] [address] * (ABNORMAL) Comprehensive metabolic panel (04/05/2024 6:48 AM STEWARD/STEWARDESS DECK) Sodium 142 135 - 145 mmol/L Potassium, [...] [facility] ([place]) Blood 04/05/2024 6:48 AM STEWARD/STEWARDESS DECK 04/05/2024 6:52 AM STEWARD/STEWARDESS DECK us Krystal Araujo MD LAB BLOOD ORDERABLES Fi nal Result Performing Organization Address [facility]/ZIP Co de Phone Number JULIETA GUERRERO ([place]) 1 [facility] [place] [address] * POCT glucose (04/05/2024 2:22 AM STEWARD/STEWARDESS DECK) Glucose, POC 176 70 - 199 mg/dL Blood 04/05/2024 2:22 AM STEWARD/STEWARDESS DECK 04/05/2024 2:22 AM STEWARD/STEWARDESS DECK Ingrid Henry MD LAB POCT ORDERABLES - DEV ICE Final Result Performing Organization Address [facility] de Phone Number JULIETA GUERRERO ([place]) 1 [facility] [place] [address] * (ABNORMAL) Troponin T high-sensitivity 4-hour (04/04/2024 11:16 PM STEWARD/STEWARDESS DECK) Trop T hs 30(H) <=22 ng/L Comment: Interpretive Data For further hscTnT resources including the diagnostic algorithm and an aid in interpretation, copy and paste this link: https://nrl.testcatalog.org/show/hsTrop Current Interpretive Data last revised 2020. Trop T hs delta See Comment ng/L CE RNSANDRA GUERRERO ([place]) Comment:Inappropriate collec tion time to report a delta. Trop T hs pct delta See Comment % CERJUNAID GUERRERO ([place]) Comment:Inappropriate collec tion time to report a delta. Trop T hs interp See Comment C JACINTO GUERRERO ([place]) Comment:Inappropriate collec tion time to report a delta. Blood 04/04/2024 11:1 6 PM STEWARD/STEWARDESS DECK 04/04/2024 11:26 PM STEWARD/STEWARDESS DECK us Nikolas Doty MD LAB BLOOD ORDERABLES Final Res ult Performing Organization Address City/[facility]/ZIP Co de Phone Number JULIETA GUERRERO ([place]) 1 [facility] [place] [address] * (ABNORMAL) POCT glucose (04/04/2024 9:25 PM STEWARD/STEWARDESS DECK) [facility] Glucose, POC 237(H) 70 - 199 mg/dL Blood 04/04/2024 9:25 PM STEWARD/STEWARDESS DECK 04/04/2024 9:25 PM STEWARD/STEWARDESS DECK Ingrid Henry MD LAB POCT ORDERABLES - DEV ICE Final Result Performing Organization Address [facility] Co de Phone Number JULIETA GUERRERO ([place]) 1 [facility] [place] [address] * (ABNORMAL) Troponin T high-sensitivity 2-hour (04/04/2024 7:30 PM STEWARD/STEWARDESS DECK) [facility] Trop T hs 31(H) <=22 ng/L Comment: Interpretive Data For further hscTnT resources including the diagnostic algorithm and an aid in interpretation, copy and paste this link: https://nrl.testcatalog.org/show/hsTrop Current Interpretive Data last revised 2020. Trop T hs delta -2 ng/L [facility] ([place]) Trop T hs interp Insignificant [facility] ([place]) Blood 04/04/2024 7:30 PM STEWARD/STEWARDESS DECK 04/04/2024 7:33 PM STEWARD/STEWARDESS DECK us Nikolas Doty MD LAB BLOOD ORDERABLES Final Res ult Performing Organization Address City/[facility]/ZIP Co de Phone Number JULIETA GUERRERO ([place]) 1 [facility] [place] [address] * (ABNORMAL) eGFR (04/04/2024 7:30 PM STEWARD/STEWARDESS DECK) [facility] eGFR 42(L) >=60 mL/min/1. 73 m2 Comment: [...] last reviewed 2021. Blood 04/04/2024 7:30 PM STEWARD/STEWARDESS DECK 04/04/2024 7:33 PM STEWARD/STEWARDESS DECK us Nikolas Doty MD LAB BLOOD ORDERABLES Final Res ult [facility] ([place]) 1 [facility] Department of Laboratories [place], [place] [id number] * (ABNORMAL) CBC without differential (04/04/2024 7:30 PM STEWARD/STEWARDESS DECK) WBC 11.8(H) 3.8 - 9.9 K/cumm Hgb 12.9(L) 13.0 - 17.5 g/dL [facility] ([place]) Hct 39.2 38.9 - 50.3 % [facility] ([place]) Plt 215 150 - 400 K/cumm [facility] ([place]) MPV 10.1 9.1 - 12.3 fL [facility] ([place]) RBC 4.29(L) 4.30 - 5.80 M/cumm [facility] ([place]) MCV 91.4 81.3 - 96.4 fL JULIETA GUERRERO ([place]) MCH 30.1 27.1 - 33.3 pg JULIETA GUERRERO ([place]) MCHC 32.9 32.3 - 35.7 g/dL JULIETA GUERRERO ([place]) RDW CV 13.7 11.1 - 14.9 % JULIETA GUERRERO ([place]) RDW SD 45.4 35.7 - 48.1 fL JULIETA GUERRERO ([place]) NRBC abs 0.00 0.00 - 0.01 K/cumm JULIETA GUERRERO ([place]) Blood 04/04/2024 7:30 PM STEWARD/STEWARDESS DECK 04/04/2024 7:33 PM STEWARD/STEWARDESS DECK Narrative JULIETA GU[facility]ERO ([place]) - 04/04/2024 7:35 PM STEWARD/STEWARDESS DECK Baseline prior to enoxaparin initiation. Nikolas Doty MD LAB BLOOD ORDERABLES Final Res ult Performing Organization Address City/[facility]/ZIP Co de Phone Number [place] 1 [facility] [place] [address] * (ABNORMAL) Creatinine (04/04/2024 7:30 PM STEWARD/STEWARDESS DECK) Creatinine 1.71(H) 0.80 - 1.30 mg/dL Blood 04/04/2024 7:30 PM STEWARD/STEWARDESS DECK 04/04/2024 7:33 PM STEWARD/STEWARDESS DECK Narrative JULIETA GUERRERO ([place]) - 04/04/2024 8:05 PM STEWARD/STEWARDESS DECK Baseline prior to enoxaparin initiation. Nikolas Doty MD LAB BLOOD ORDERABLES Final Res ult JULIETA GUERRERO ([place]) 1 [facility] [place] [address] * (ABNORMAL) POCT glucose (04/04/2024 7:25 PM STEWARD/STEWARDESS DECK) Glucose, POC 214(H) 70 - 199 mg/dL Blood 04/04/2024 7:25 PM STEWARD/STEWARDESS DECK 04/04/2024 7:25 PM STEWARD/STEWARDESS DECK us Ingrid Henry MD LAB POCT ORDERABLES - DEV ICE Final Result Performing Organization Address [facility]/ZIP Co de Phone Number JULIETA GUERRERO [place]) 1 [facility] [place] [address] * (ABNORMAL) Troponin T high-sensitivity series (baseline, 2hr, 4hr, 6hr) (04/04/2024 5:57 PM STEWARD/STEWARDESS DECK) Trop T hs 33(H) <=22 ng/L Comment: Interpretive Data For further hscTnT resources including the diagnostic algorithm and an aid in interpretation, copy and paste this link: https://nrl.testcatalog.org/show/hsTrop Current Interpretive Data last revised 2020. Blood 04/04/2024 5:57 PM STEWARD/STEWARDESS DECK 04/04/2024 6:03 PM STEWARD/STEWARDESS DECK us Nikolas Doty MD LAB BLOOD ORDERABLES Final Res ult Performing Organization Address [facility] Co de Phone Number JULIETA GUERRERO ([place]) 1 [facility] [place] [address] * (ABNORMAL) eGFR (04/04/2024 5:57 PM STEWARD/STEWARDESS DECK) eGFR 40(L) >=60 mL/min/1. 73 m2 Comment: [...] last reviewed 2021. Blood 04/04/2024 5:57 PM STEWARD/STEWARDESS DECK 04/04/2024 6:03 PM STEWARD/STEWARDESS DECK us Nikolas Doty MD LAB BLOOD ORDERABLES Final Res ult [facility] ([place]) 1 [facility] Department [place] [address] * (ABNORMAL) Differential, auto (04/04/2024 5:57 PM STEWARD/STEWARDESS DECK) Neutrophil abs 9.7(H) 1.5 - 6.5 K/cumm [...] Imm gran pct 1.7 % [facility] ([place]) Comment: Interpretive Data Percent cell count reference [...] revised on 2017. Monocyte pct 8.5 % [facility] ([place]) Comment: Interpretive Data Percent cell count reference ranges are not reported, since discordance with absolute values may lead to misinterpretation of CBC data. Current Interpretive Data was last revised on 2017. Eosinophil pct 1.0 % [facility] ([place]) Comment: [...] revised on 2017. Blood 04/04/2024 5:57 PM STEWARD/STEWARDESS DECK 04/04/2024 6:03 PM STEWARD/STEWARDESS DECK us Nikolas Doty MD LAB BLOOD ORDERABLES Final Res ult JULIETA YOLANDA ([place]) 1 [facility] Department [place] [address] * (ABNORMAL) Pro B-type natriuretic peptide (04/04/2024 5:57 PM STEWARD/STEWARDESS DECK) NT-proBNP 362(H) <=300 pg/mL Comment: Interpretive Comments: [...] Heart J. 2006:27:330-337. 2. Lisa RW, Alberto QUINN. J. AM Rio Cardiol: Cardiovasc Imag. 2009;2: 216- 225. Interpretive Data Last Revised Date: 2017. Blood 04/04/2024 5:57 PM STEWARD/STEWARDESS DECK 04/04/2024 6:32 PM STEWARD/STEWARDESS DECK us José Miguel Osorio MD LAB BLOOD ORDERABLES Final Resul t [facility] [place]) 5 [facility] Department [place] [address] * (ABNORMAL) CBC with auto differential (04/04/2024 5:57 PM STEWARD/STEWARDESS DECK) WBC 12.7(H) 3.8 - 9.9 K/cumm Hgb 14.1 13.0 - 17.5 g/dL [facility] ([place]) Hct 42.2 38.9 - 50.3 % [facility] ([place]) Plt 228 150 - 400 K/cumm [facility] ([place]) MPV 10.0 9.1 - 12.3 fL [facility] ([facility] [facility]) RBC 4.62 4.30 - 5.80 M/cumm [facility] ([facility]) MCV 91.3 81.3 - 96.4 fL [facility] ([facility] [facility]) MCH 30.5 27.1 - 33.3 pg [facility] ([place] [facility]) MCHC 33.4 32.3 - 35.7 g/dL [facility] ([facility] [facility] RDW CV 13.5 11.1 - 14.9 % [facility] ([facility] [facility] RDW SD 45.3 35.7 - 48.1 fL [facility] ([facility] [facility]) NRBC abs 0.00 0.00 - 0.01 K/cumm [facility] ([facility] [facility]) Blood (Blood, Venous) 04/04/2024 5:57 PM STEWARD/STEWARDESS DECK 04/04/2024 6:03 PM STEWARD/STEWARDESS DECK Nikolas Doty MD LAB BLOOD ORDERABLES Final Res ult [facility] ([place]) 1 [facility] Department [place] [address] * aPTT (04/04/2024 5:57 PM STEWARD/STEWARDESS DECK) aPTT 33 28 - 38 sec [facility] ([place] [facility]) Comment: Interpretive Data Heparin therapeutic range: 66.0 - 100.0 seconds. Range based on correlation with therapeutic heparin activity range of 0.3 - 0.7 Units/mL. Current interpretive data was last revised on 2023. Blood 04/04/2024 5:57 PM STEWARD/STEWARDESS DECK 04/04/2024 7:20 PM STEWARD/STEWARDESS DECK Narrative [facility] ([place] [facility]) - 04/04/2024 7:47 PM STEWARD/STEWARDESS DECK Baseline prior to enoxaparin initiation. Nikolas Doty MD LAB BLOOD ORDERABLES Final Res ult JULIETA GUERRERO ([place]) 1 [facility] [place] [address] * Protime-INR (04/04/2024 5:57 PM STEWARD/STEWARDESS DECK) PT 11.9 9.7 - 13.0 sec [facility] ([place]) INR 1.10 0.90 - 1.20 [facility] ([place]) Comment: Interpretive data Oral anticoagulant therapeutic ranges: Venous thromboembolism prophylaxis or treatment: 2.0-3.0 CARDIOLOGY Standard range: 2.0-3.0 High-intensity range: 2.5-3.5 Refer to indication-specific guidelines for appropriate target ranges for prosthetic heart valve replacement. Current interpretive data was last revised on 2019. Blood 04/04/2024 5:57 PM STEWARD/STEWARDESS DECK 04/04/2024 7:20 PM STEWARD/STEWARDESS DECK Narrative [facility] ([place]) - 04/04/2024 7:44 PM STEWARD/STEWARDESS DECK Baseline prior to enoxaparin initiation. Nikolas Doty MD LAB BLOOD ORDERABLES Final Res ult Performing Organization Address City/[facility]/ZIP Co de Phone Number JULIETA Chaney[place]) 1 [facility] [place] [address] * (ABNORMAL) Comprehensive metabolic panel (04/04/2024 5:57 PM STEWARD/STEWARDESS DECK) Pathologist [facility] Sodium 140 135 - 145 mmol/L Potassium, pl 3.3 3.3 - 4.9 mmol/L [facility] ([place]) Chloride 100 97 - 110 mmol/L [facility] ([place]) CO2 28 22 - 32 mmol/L [facility] ([place]) Anion gap 12 2 - 15 mmol/L [facility] ([place]) BUN 24 6 - 25 mg/dL [facility] ([place]) Creatinine 1.78(H) 0.80 - 1.30 mg/dL [facility] ([place]) Glucose 233(H) 70 - 199 mg/dL [facility] ([place]) Comment: Interpretive Data Fasting glucose [...] [facility] ([place]) Blood 04/04/2024 5:57 PM STEWARD/STEWARDESS DECK 04/04/2024 6:03 PM STEWARD/STEWARDESS DECK Nikolas Doty MD LAB BLOOD ORDERABLES Final Res ult [facility] ([place]) 1 [facility] Department [place] [address] * XR Chest 1 Vw Portable (if patient condition/safety warrant portable) (04/04/2024 5:27 PM STEWARD/STEWARDESS DECK) Anatomical Region Laterality Modality Body, Chest N/A Computed Radiogr aphy 04/04/2024 6:28 PM STEWARD/STEWARDESS DECK Narrative 04/04/2024 6:29 PM STEWARD/STEWARDESS DECK EXAM DESCRIPTION: XR CHEST 1 VIEW REASON [...] PM T: ??04/04/2024 6:29 PM Report ID: [id number] Reading Location: ??[id number] Procedure Note Xavi Driscoll MD - 04/04/2024 [...] Xavi Driscoll M.D. AR: REILLY Report ID: [id number] Reading Location: [id number] us Nikolas Doty MD IMG XR PROCEDURES Final Result * ECG 12 lead (04/04/2024 5:11 PM STEWARD/STEWARDESS DECK) 04/04/2024 5:11 PM STEWARD/STEWARDESS DECK Narrative [facility] - 04/05/2024 6:31 AM STEWARD/STEWARDESS DECK Vent Rate: 72 bpm RR Interval: 828 msec MT Interval: 0 msec QRS Duration: 90 msec QT Interval: 306 msec QTC Interval: 330 msec P-R-T Morton: [id number] - -9 - -11 degrees IMPRESSION: Baseline artifact, probable sinus rhythm LOW QRS VOLTAGE IN PRECORDIAL LEADS ??[QRS DEFLECTION < 1.0 mV IN CHEST LEADS] NONSPECIFIC ST \T\ T-WAVE ABNORMALITY ABNORMAL RHYTHM ECG NO CHANGE FROM PREVIOUS TRACING NOTED Electronically Signed By: Juarez Thornton MD Nikolas Doty MD ECG ORDERABLES Final Result [facility] * XR Knee Left 4 or More [...] PM T: ??02/28/2024 2:10 PM Report ID: [id number] Reading Location: ??[id number] Procedure Note Tania Kumar MD - 02/28/2024 [...] Tania Kumar M.D. MF: LONG Report ID: [id number] Reading Location: [id number] Yaz Escobar MD IMG XR PROCEDURES F [...] children were not included. ?? (Diabetes Care 31:[id number], 2008). ??The eAG is not equivalent to a fasting glucose. Blood 08/30/2023 2:23 AM CDT 08/30/2023 12:50 PM CDT us Destiny Devi WHEEL ALIGNMENT MECHANIC LAB BLOOD ORDERABLES Final R esult JULIETA GUERRERO ([place]) 1 [facility] Department [place] [address] * (ABNORMAL) Lipid panel (08/28/2023 8:27 PM [...] on 2017. Non-HDL Cholesterol 123 mg/dL JULIETA GUERRERO ([place]) Comment: Interpretive [...] on 2017. Chol/HDL ratio 6 MARTINEZ GUERRERO ([place]) Blood 08/28/2023 8:27 PM CDT 08/28/2023 10:13 PM CDT us Jesus Payan MD LAB BLOOD ORDERABLES Final Re sult JULIETA GUERRERO ([place]) 1 [facility] Department of Laboratories [place], [place] [id number] * PSA screen (10/28/2021 2:47 PM CDT) PSA-Total 3.15 <=5.40 ng/mL JULIETA GUERRERO ([place]) Comment: Interpretive Data ?AGE ? SEX ?REFERENCE [...] data last revised 21. Testing performed by: [facility], [address] [place] [address]., [address] Blood 10/28/2021 2:47 PM CDT 10/28/2021 7:50 PM CDT Sohail Gould MD LAB BLOOD ORDERABLES Holly l Result Performing Organization Address [facility] Co de Phone Number JULIETA [facility] ([place]) 1 [facility] [place] [address] * (ABNORMAL) Albumin Creatinine Ratio, Urine (10/28/2021 2:47 PM CDT) Albumin Ur 713.6 mg/L [facility]A [facility] ([place]) Comment: Interpretive Data No reference range established. Current interpretive data was last revised 2018. Testing performed by: [facility], [address] [place] [address]., [id number] Creatinine Ur 343.1 mg/dL [facility] ([place]) Comment: Interpretive Data No reference range established. Current interpretive data was last revised 2018. Testing performed by: [facility], [address] [place] [address]., [address] Albumin Creatinine Ratio, Ur 208(H) 1 - 29 mg/g [facility] ([place]) Comment:Testing performed by : [address] [address] Urine 10/28/2021 2:47 PM CDT 10/28/2021 9:10 PM CDT Sohail Gould MD LAB URINE ORDERABLES Holly l Result Performing Organization Address City/[facility]/ZIP Co de Phone Number [facility] ([place]) 1 [facility] [place] [address] * Stool DNA - Cologuard (11/30/2020) Scribed Stool DNA - Cologuard Negative EXTERNAL LAB Stool us Historical Provider LAB BODY FLUIDS AND STOOL S ORDERABLES Final Result EXTERNAL LAB from Last 3 Months or Most Recently Relevant to Health Maintenance Insurance [employer] MED[employer] MED[employer]ARE [employer] IDPA Advance Directives For more information, please contact: [phone] * Full Code (Latest Code Status on [...] 1:59 PM 02/05/2023 5:22 PM Care Teams Circular Knife Machine Cutter Relationship Specialty Start Date End Date Melchor Woodard MD PCP - General Family Practice 07/30/22 Nicolas Jung MD Surgeon Orthopedic Surgery 08/05/21 Louie Lomeli MD Consulting Physician Cardiology 12/23/21 Tania Sparrow MD [address] [place] [address] [place] [address] Consulting Physician Neurology 12/14/22
[2024-05-28 20:42] LABS: Add Urine Microscopic? YES; Appearance Urine Clear (Clear); Bacteria Urine None Seen /hpf; Bilirubin Urine Negative (Negative); Blood Urine Negative (Negative); Color Urine Yellow (Yellow); Glucose Urine UA Negative (Negative); Ketones Urine Negative (Negative); Leukocyte Esterase Ur Negative LEU/UL (Negative); Nitrate Urine Negative (Negative); Non Pathogenic Casts 0-2; Protein Urine 1+ mg/dL (Negative); RBC Urine 0-2 /hpf (0-2); Specific Grav Ur 1.018 (1.001-1.035); Squamous Epithelial Cell Urine Occasional /hpf (Few); Urobilinogen Urine 0.2 mg/dL (<2.0); WBC Urine 0-5 /hpf (0-3); pH Urine 5.5 (5.0-9.0)
[2024-05-28 22:42] LABS: Creatinine Urine 193.8 mg/dL
[2024-05-28 23:01] LABS: MALB Creatinine Ratio 115.9 mg/g (0-30); Microalbumin Urine Random 224.6 mg/L (0-16.7)
== END 2024-05-28 12:39 | disposition home or self-care (01) ==
PROVIDERS: PCP Nurse Practitioner Adult Health; Visit Provider Nurse Practitioner Adult Health
DX: R39.9 Unspecified symptoms and signs involving the genitourinary system (principal); E11.9 Type 2 diabetes mellitus without complications
CPT/HCPCS: 81001; 82043; 87086

== ENCOUNTER 2024-05-30 12:53 | Outpatient (CLI) | payer MEDICARE, SELFPAY ==
--- OUTSIDE RECORDS SUMMARY | 2024-05-30 13:49 | XMS_ITS | Encounter Summary ---
Author Organization [facility] Address [address] [place] [address] Phone Care Team Providers Care Field Coil Winder Name Role Phone Carlos Moran MD Primary Care Provider [phone] Mark De Los Santos MD Unavailable Unavailable Rand Tsang MD Unavailable [phone] Provider, None Primary Care Provider Unavaildanny e Sohail Gould MD Primary Care Provider [phone] Carlos Moran MD Primary Care Provider [phone] Sohail Gould MD Primary Care Provider [phone] Reason for Visit * Reason Comments Medication Refill Encounter Details Date Type Department Care Team (Late st Contact Info) Description 03/21/2020 Refill [facility] Medical [facility] - Primary Care - [place] [address] [place] [address] Carlos Moran MD [address] [place], [place] [id number] Medication Refill Social History Tobacco Use Types [...] COVID-19? No / Unsure 03/13/2020 2:58 PM POWDER CARRIER documented as of this encounter Miscellaneous Notes * Telephone Encounter - Carlos Moran MD - 03/21/2020 10:53 AM POWDER CARRIER Refill request approved. ER CARRIER * Telephone Encounter - Tavia Pablo [facility] - 03/21/2020 10:42 AM POWDER CARRIER Medication failed the protocol, provider to review [...] weeks ago Acute pain of left knee [facility] Medical [facility] Carlos Moran MD 1 month ago Cellulitis of mouth [facility] Carlos Moran MD 1 month ago Polyneuropathy associated with underlying disease (HCC) [facility] Carlos Moran MD 4 months ago Hypertension, essential [facility] Carlos Moran MD 8 months ago Urinary pain [facility] Carlos Moran MD Upcoming Appointments Future Appointments In 1 month Fox Shearer MD [facility] month Carlos Moran MD [facility] Medical [facility] - Recent and Past Visits Recent Visits Date Type Provider Dept 02/28/20 Office Visit Carlos Moran MD [facility] [address] 02/18/20 Office Visit Carlos Moran, [facility] [address] 02/05/20 Office Visit Carlos Moran, [facility] [address] 10/24/19 Office Visit Carlos Moran, [facility] 07/13/19 Office Visit Carlos Moran, MD [place] 04/23/19 Office Visit Carlos Moran, MD [place] [facility] 02/12/19 Office Visit Carlos Moran, [facility] Showing recent visits within past 460 days with a meds authorizing provider and meeting all other requirements Future Appointments Date Type Provider Dept 04/24/20 Appointment [facility] future appointments within next 90 days with a meds authorizing provider and meeting all other requirements ER CARRIER documented in this encounter Plan of Treatment Not on file documented as of this encounter Visit Diagnoses Not on filedocumented in this encounter Additional Health Concerns Assessment Noted Time PHQ-9 Depression Total Score: 0 07/13/19 10:00 AM CDT documented as of this encounter Care Teams Field Coil Winder Relationship Specialty Start Date End Date Carlos Moran MD [address] [place] [address] PCP - General Internal Medicine 01/28/15 04/21/20 Provider, None [place] PCP - General 04/22/20 08/04/20 Sohail Gould MD [address] [place] [address] PCP - General Family Medicine 08/05/20 10/06/20 Carlos Moran MD [address] [place] [address] PCP - General Internal Medicine 10/07/20 08/19/21 Sohail Gould MD [address] [place] [address] PCP - General Family Medicine 08/20/21 Mark De Los Santos MD [address] [place] [address] Consulting Physician Urology 09/05/15 Rand Tsang MD [address] [place] [address] Consulting Physician Dermatopathology 01/16/18 documented as of this encounter
--- OUTSIDE RECORDS SUMMARY | 2024-05-30 13:49 | XMS_ITS | Clinical Summary ---
Author Organization [facility] Address [address] [place] [address] Phone Care Team Providers Care Flight Control Tower Operator Name Role Phone Mark De Los Santos MD Unavailable Unavailable Rand Tsang MD Unavailable [phone] Sohail Gould MD Primary Care Provider [phone] Allergies Active Allergy Reactions Criticality Noted Date [...] Polyneuropathy associated with underlying diseas e 10/24/2019 '[id number]' infant with signs of mal nutrition 02/02/2019 [...] CDT Respiratory Rate 20 04/22/2020 9:49 AM FRUIT CULLER Oxygen Saturation 97% 08/06/2020 8:25 AM CDT [...] (COMPREHENSIVE METABOLIC PANEL) Today 04/23/2019 10:44 AM FRUIT CULLER Pulmonary hypertension (HCC) Hypertension, essential Type 2 [...] - 6.0 % 10/24/2019 12:53 PM CDT [facility] Est Average Glucose 168.6 mg/dL 10/24/2019 12:53 PM CDT [facility] Blood Venipuncture / Unknown 10/24/2019 10:30 AM CDT 10/24/2019 10:30 AM CDT Narrative [facility] - 10/24/2019 12:53 PM CDT HEMOGLOBIN A1C: DIABETIC PATIENTS: WELL-CONTROLLED: ?? 6.2 - 7.0 INTERMEDIATE WELL-CONTROLLED: ??7.0 - 9.0 POORLY-CONTROLLED: ??>9.0 us Carlos Moran MD CHEMISTRY ORDERABLES Holly leigh Result [facility] [address] [place] [address] * (ABNORMAL) CMP (COMPREHENSIVE METABOLIC PANEL) (04/23/2019 10:44 AM FRUIT CULLER) SODIUM 141 136 - 144 mmol/L 04/23/2019 12:52 PM FRUIT CULLER [facility] POTASSIUM 3.4(L) 3.5 - 5.1 mmol/L 04/23/2019 12:52 PM FRUIT CULLER [facility] CHLORIDE 102 100 - 110 mmol/L 04/23/2019 12:52 PM [facility] CO2, VENOUS 26 22 - 32 mmol/L 04/23/2019 12:52 PM [facility] ANION GAP 16.4 8.0 - 20.0 mmol/L 04/23/2019 12:52 PM [facility] GLUCOSE 128(H) 70 - 99 mg/dL 04/23/2019 12:52 PM [facility] BUN 14 8 - 23 mg/dL 04/23/2019 12:52 PM [facility] CREATININE, BLOOD 1.01 0.80 - 1.30 mg/dL 04/23/2019 12:52 PM [facility] BUN/CREATININE RATIO 14 12 - 20 ratio 04/23/2019 12:52 PM [facility] TOTAL PROTEIN 7.4 6.0 - 8.3 g/dL 04/23/2019 12:52 PM [facility] ALBUMIN 3.9 3.5 - 5.2 g/dL 04/23/2019 12:52 PM [facility] Comment: The colormetric methods used for the determination of Albumin may lead to falsely elevated test results in patients suffering from renal failure or insufficiency due to interference with other proteins. A/G RATIO 1.1 1.0 - 2.0 04/23/2019 12:52 PM [facility] CALCIUM 8.9 8.9 - 10.3 mg/dL 04/23/2019 12:52 PM [facility] T BILI 0.3 <=1.2 mg/dL 04/23/2019 12:52 PM [facility] SGOT (AST) 16 <=40 U/L 04/23/2019 12:52 PM [facility] SGPT (ALT) 19 <=41 U/L 04/23/2019 12:52 PM [facility] ALKALINE PHOSPHATASE 102 40 - 130 U/L 04/23/2019 12:52 PM [facility] GFR, EST. NONAFRICAN >60 >=60 04/23/2019 12:52 PM [facility] GFR, EST. >60 >=60 019 12:52 PM FRUIT CULLER [facility] Comment: Creatinine Clearance is the preferred criteria for selecting drug dose adjustments in renally impaired patients. ??The GFR is provided as additional pertinent clinical information. GFR is reported in mL/min/1.73 sq m. Blood specimen (specimen) Venipuncture / Unknown 04/23/2019 10:44 AM FRUIT CULLER 04/23/2019 10:44 AM FRUIT CULLER Carlos Moran MD CHEMISTRY ORDERABLES Holly l Result [facility] [address] [place] [address] * (ABNORMAL) PSA DIAGNOSTIC,TOTAL (02/19/2019 10:38 AM CDT) PSA, TOTAL (PROSTATIC SPECIFIC ANTIGEN) 6.36(H) <=4.00 ng/mL 02/19/2019 1:24 PM CDT [facility] Blood specimen (specimen) Venipuncture / Unknown 02/19/2019 10:38 AM CDT 02/19/2019 12:34 PM CDT Narrative [facility] - 02/19/2019 1:24 PM CDT PSA NOTE: The PSA value should be used in conjunction with information available from clinical evaluation and other diagnostic procedures. Michelet Moran MD CHEMISTRY ORDERABLES Final Result [facility] [address] [place] [address] from Last 3 Months or Most Recently Relevant to Health Maintenance Insurance MEDICAID [place] MEDICARE C [facility] Care Teams Flight Control Tower Operator Relationship Specialty Start Date End Date Sohail Gould MD [address] [place] [address] PCP - General Family Medicine 08/20/21 Mark De Los Santos MD Consulting Physician Urology 09/05/15 Rand Tsang MD Consulting Physician Dermatopathology 01/16/18
--- OUTSIDE RECORDS SUMMARY | 2024-05-30 13:49 | XMS_ITS | Encounter Summary ---
Author Organization [facility] Healthcare Address [address] [place] [address] Care Team Providers Care Correspondence Transcriber Name Role Phone Nicolas Jung MD Unavailable [phone] Louie Lomeli MD Unavailable [phone] Melchor Woodard MD Primary Care Provider [phone] Jairo Sparrow MD Unavailable [phone] NavarreteMaria Eugenia quiñones [facility] Unavailable [phone] Encounter Details Date Type Department Care Team (Late st Contact Info) Description 06/02/2023 Telephone [facility] [address] [facility] [address] [place] [address] Jonathan Miranda MD [address] [place] [address] Social History Tobacco Use Types Packs/Day Years [...] week 02/04/2023 How often do you attend [facility] or roman catholic services? Never 02/04/2023 Do you belong to any clubs o r organizations such as episcopal groups, unions, fraternal or athletic groups, or [...] place to sleep or slept in a half-way (including now)? Yes 02/04/2023 Personal Safety Answer Date Recorded Have you ever been in or are you currently in a harmful physical or emotional relationship or is someone making you feel afraid or unsafe? Denies 03/09/2023 Sex and Gender Information Value Date Recorded Sex Assigned at Not on file Legal Sex Male 12:23 AM SCARFER OPERATOR Gender Identity Not on file Sexual Orientation [...] documented as of this encounter Care Teams Correspondence Transcriber Relationship Specialty Start Date End Date Melchor Woodard MD PCP - General Family Practice 07/30/22 Nicolas Jung MD Surgeon Orthopedic Surgery 08/05/21 Louie Lomeli MD Consulting Physician Cardiology 12/23/21 Jairo Sparrow MD [address] [place] [address] [place] [address] Consulting Physician Neurology 12/14/22 Maria Eugenia Navarrete, [address] [place] [address] Pharmacist Pharmacy 03/12/24 03/12/24 documented as of this encounter
--- OUTSIDE RECORDS SUMMARY | 2024-05-30 13:49 | XMS_ITS | Clinical Summary ---
Author Organization [facility] Address [address] [place] [address] Care Team Providers Care Gun Examiner Name Role Phone Carlos Moran MD Primary Care Provider [phone] Source Comments [employer] [facility],non-owned Affiliates and Associated Physician Practices is amultiple site organization consisting of ambulatory clinics and hospital sitesin [place], [place], [place] and [place]. This disclosure is being madepursuant to the Care Everywhere program and may not contain all information available regarding this patient. Last updated 18.[employer] [facility] Allergies No known active allergies Medications * [...] Department Care Team Description 04/13/2024 Lab Requisition [facility] [address] [place] [address] Maged Mcdonnell from Last 3 Months Family [...] Comments Blood Pressure 136/78 04/24/2017 10:32 AM ROUNDING MACHINE TENDER Pulse 78 04/24/2017 10:32 AM ROUNDING MACHINE TENDER Temperature 36.8 ??C (98.2 ??F) 04/24/2017 10:[address] Respiratory Rate - - Oxygen Saturation - - Inhaled Oxygen Concentration - - Weight 104.8 kg (231 lb) 04/24/2017 10:32 AM ROUNDING MACHINE TENDER Height 177.8 cm (5' 10 ) 04/24/2017 10:32 AM ROUNDING MACHINE TENDER Body Mass Index 33.15 04/24/2017 10:32 AM ROUNDING MACHINE TENDER Plan of Treatment Health Maintenance Due Date [...] Comments HEMOGLOBIN A1C STAT 04/13/2024 3:21 PM ROUNDING MACHINE TENDER LIPID PROFILE STAT 04/13/2024 3:21 PM ROUNDING MACHINE TENDER TSH REFLEX FREE T4 STAT 04/13/2024 3: 21 PM ROUNDING MACHINE TENDER COMPREHENSIVE METABOLIC PANEL STAT 04/13/2024 3:21 PM ROUNDING MACHINE TENDER CBC W AUTO DIFFERENTIAL STAT 04/13/2024 3:21 PM ROUNDING MACHINE TENDER from Last 3 Months Results * TSH REFLEX FREE T4 (04/13/2024 3:21 PM ROUNDING MACHINE TENDER) TSH 3.335 0.350 - 4.940 uIU/mL 04/13/2024 4:06 PM ROUNDING MACHINE TENDER [facility] Blood BLOOD SPECIMEN / Unknown Venipuncture / Unknown 04/13/2024 3:21 PM ROUNDING MACHINE TENDER 04/13/2024 3:25 PM ROUNDING MACHINE TENDER Maged Mcdonnell LAB - CHEMISTRY ALFREDO WHEELER [facility] [address] [place] [address] * (ABNORMAL) HEMOGLOBIN A1C (04/13/2024 3:21 PM ROUNDING MACHINE TENDER) Hemoglobin A1c 7.3(H) <5.7 % 04/13/2024 3:47 PM ROUNDING MACHINE TENDER [facility] Estimated Average Glucose 163 mg/dL 04/13/2024 3:47 PM ROUNDING MACHINE TENDER [facility] Blood BLOOD SPECIMEN / Unknown 04/13/2024 3:21 PM ROUNDING MACHINE TENDER 04/13/2024 3:25 PM ROUNDING MACHINE TENDER [facility] - 04/13/2024 3:47 PM ROUNDING MACHINE TENDER HbA1c Interpretation: Normal: < 5.7% Pre-diabetes: 5.7-6.4% [...] Maged Mcdonnell LAB - CHEMISTRY ALFREDO WHEELER [facility] [address] [id number] * (ABNORMAL) CBC WITH DIFFERENTIAL (04/13/2024 3:21 PM ROUNDING MACHINE TENDER) WBC 11.8(H) 4.0 - 10.7 x10E9/L 04/13/2024 3:32 PM ROUNDING MACHINE TENDER [facility] RBC Count 4.77 4.30 - 5.80 x10E12/L 04/13/2024 3:32 PM [facility] Hemoglobin 13.9 13.3 - 17.5 g/dL 04/13/2024 3:32 PM [facility] Hematocrit 44.8 38.7 - 51.1 % 04/13/2024 3:32 PM [facility] MCV 93.9 80.0 - 98.0 fL 04/13/2024 3:32 PM [facility] MCH 29.1 26.7 - 33.6 pg 04/13/2024 3:32 PM [facility] MCHC 31.0(L) 31.7 - 36.3 g/dL 04/13/2024 3:32 PM [facility] RDW-CV 13.2 11.3 - 14.8 % 04/13/2024 3:32 PM [facility] Platelet Count 253 150 - 420 x10E9/L 04/13/2024 3:32 PM [facility] MPV 10.2 7.8 - 11.4 fL 04/13/2024 3:32 PM [facility] Neutrophil % 79.0(H) 41.0 - 74.0 % 04/13/2024 3:32 PM [facility] Lymphocyte % 10.8(L) 17.0 - 47.0 % 04/13/2024 3:32 PM [facility] Monocyte % 7.3 3.0 - 11.0 % 04/13/2024 3:32 PM [facility] Eosinophil % 1.5 0.0 - 7.0 % 04/13/2024 3:32 PM [facility] Basophil % 0.3 0.0 - 1.6 % 04/13/2024 3:32 PM [facility] Immature Granulocytes % 1.1(H) 0.0 - 1.0 % 04/13/2024 3:32 PM [facility] Neutrophil Absolute 9.32(H) 1.60 - 7.50 x10E9/L 04/13/2024 3:32 PM [facility] Lymphocyte Absolute 1.27 1.00 - 4.40 x10E9/L 04/13/2024 3:32 PM [facility] Monocyte Absolute 0.86 0.15 - 1.00 x10E9/L 04/13/2024 3:32 PM ROUNDING MACHINE TENDER [facility] Eosinophil Absolute 0.18 0.00 - 0.60 x10E9/L 04/13/2024 3:32 PM [facility] Basophil Absolute 0.04 0.00 - 0.13 x10E9/L 04/13/2024 3:32 PM [facility] Blood BLOOD SPECIMEN / Unknown 04/13/2024 3:21 PM ROUNDING MACHINE TENDER 04/13/2024 3:25 PM ROUNDING MACHINE TENDER Maged Kecia LAB - HEMATOLOGY ORD ERABLES [facility] [address] [place] [address] * (ABNORMAL) COMPREHENSIVE METABOLIC PANEL (04/13/2024 3:21 PM ROUNDING MACHINE TENDER) Glucose 193(H) 70 - 99 mg/dL 04/13/2024 3:48 PM [facility] Sodium 140 136 - 145 mmol/L 04/13/2024 3:48 PM [facility] Potassium 3.4(L) 3.5 - 5.1 mmol/L 04/13/2024 3:48 PM [facility] Chloride 104 98 - 107 mmol/L 04/13/2024 3:48 PM [facility] CO2 26 22 - 29 mmol/L 04/13/2024 3:48 PM [facility] Calcium 9.6 8.4 - 10.4 mg/dL 04/13/2024 3:48 PM [facility] Anion Gap 10 6 - 16 mmol/L 04/13/2024 3:48 PM [facility] BUN 21 7 - 26 mg/dL 04/13/2024 3:48 PM [facility] Creatinine 1.51(H) 0.72 - 1.25 mg/dL 04/13/2024 3:48 PM [facility] Alkaline Phosphatase 109 40 - 150 U/L 04/13/2024 3:48 PM [facility] ALT 14 0 - 55 U/L 04/13/2024 3:48 PM [facility] AST 13 5 - 34 U/L 04/13/2024 3:48 PM ROUNDING MACHINE TENDER [facility] Protein Total 6.9 6.4 - 8.3 gm/dL 04/13/2024 3:48 PM ROUNDING MACHINE TENDER [facility] Albumin 3.4 3.4 - 5.0 gm/dL 04/13/2024 3:48 PM ROUNDING MACHINE TENDER [facility] Bilirubin Total 0.3 0.2 - 1.2 mg/dL 04/13/2024 3:48 PM ROUNDING MACHINE TENDER [facility] eGFR by CKD-EPI 49(L) >=90 mL/min/1.7 3 m2 04/13/2024 3:48 PM ROUNDING MACHINE TENDER [facility] Blood BLOOD SPECIMEN / Unknown Venipuncture / Unknown 04/13/2024 3:21 PM ROUNDING MACHINE TENDER 04/13/2024 3:25 PM ROUNDING MACHINE TENDER Maged Mcdonnell LAB - CHEMISTRY ALFREDO WHEELER Performing Organization Address [facility]/ZIP Co de Phone Number [facility] [address] [place] [address] * (ABNORMAL) LIPID PROFILE (04/13/2024 3:21 PM ROUNDING MACHINE TENDER) [facility] Cholesterol 173 <200 mg/dL 04/13/2024 3:48 PM ROUNDING MACHINE TENDER [facility] Triglycerides 179(H) <150 mg/dL 04/13/2024 3:48 PM ROUNDING MACHINE TENDER [facility] HDL Cholesterol 26(L) >40 mg/dL 4 3:48 PM ROUNDING MACHINE TENDER [facility] LDL Calculated 111 <130 mg/dL 04/13/2024 3:48 PM ROUNDING MACHINE TENDER [facility] VLDL Calculated 36(H) <=30 mg/dL 4 3:48 PM ROUNDING MACHINE TENDER [facility] Chol HDL Ratio 6.7(H) <4.5 04/13/2024 3:48 PM ROUNDING MACHINE TENDER [facility] LDL/HDL Ratio 4.3 <5.0 04/13/2024 3:48 PM ROUNDING MACHINE TENDER [facility] Blood BLOOD SPECIMEN / Unknown Venipuncture / Unknown 04/13/2024 3:21 PM ROUNDING MACHINE TENDER 04/13/2024 3:25 PM ROUNDING MACHINE TENDER Maged Mcdonnell LAB - CHEMISTRY ALFREDO WHEELER [facility] [address] [place] [address] from Last 3 Months Care Teams Gun Examiner Relationship Specialty Start Date End Date Carlos Moran MD PCP - General Internal Medicine 04/24/17
--- OUTSIDE RECORDS SUMMARY | 2024-05-30 13:49 | XMS_ITS | Encounter Summary ---
Author Organization [facility] Address [address] [place] [address] Phone Care Team Providers Care Pottery Striper Name Role Phone Mark De Los Santos MD Unavailable Unavailable Rand Tsang MD Unavailable [phone] Carlos Moran MD Primary Care Provider [phone] Sohail Gould MD Primary Care Provider [phone] Reason for Visit * Reason Comments Medication Refill Encounter Details Date Type Department Care Team (Late st Contact Info) Description 01/26/2021 Refill [facility] - Primary Care - [place] [address] [place] [address] Carlos Moran MD [address] [place] [address] Medication Refill Social History Tobacco [...] documented as of this encounter Care Teams Pottery Striper Relationship Specialty Start Date End Date Carlos Moran MD [address] [place] [address] PCP - General Internal Medicine 10/07/20 08/19/21 Sohail Gould MD [address] [place] [address] PCP - General Family Medicine 08/20/21 Mark De Los Santos MD Consulting Physician Urology 09/05/15 Rand Tsang MD Consulting Physician Dermatopathology 01/16/18 documented as of this encounter
--- OUTSIDE RECORDS SUMMARY | 2024-05-30 13:49 | XMS_ITS | Clinical Summary ---
Author Organization [facility] Address [address] [place] [address] Care Team Providers Care Manager Resource Name Role Phone Melchor Woodard MD Primary Care Provider [phone] Allergies Active Allergy Reactions Criticality Noted Date Comments Ceftriaxone Nausea and Vomiting Low 09/23/2021 Azgdsgt-Gnw-Umr Reductase Inhibitors Other (See Comments) Low 01/26/2018 [...] ZOSTER VACCINE Completed 03/19/2020, 11/2018, 03/27/2018 Insurance [facility] [id number] Care Teams Manager Resource Relationship Specialty Start Date End Date Melchor Woodard MD PCP - General Family Practice 09/28/22
--- OUTSIDE RECORDS SUMMARY | 2024-05-30 13:49 | XMS_ITS | Patient Health Summary ---
Author Organization [facility] Address [address] [place] [address] Care Team Providers Care Vice President For Instruction Name Role Phone Carlos Moran MD Primary Care Provider [phone] [facility],non-owned Affiliates and Associated Physician Practices is amultiple site organization consisting of ambulatory clinics and hospital sitesin [place], [place], [place] and [place]. This disclosure is being madepursuant to the Care Everywhere program and may not contain all information available regarding this patient. Last updated 18.[facility] Allergies No known active allergies* Tree Nuts(Rash) [...] Comments Blood Pressure 136/78 04/24/2017 10:32 AM LEGAL EXECUTIVE ASSISTANT Pulse 78 04/24/2017 10:32 AM LEGAL EXECUTIVE ASSISTANT Temperature 36.8 ??C (98.2 ??F) 04/24/2017 10:[address] Respiratory Rate - - Oxygen Saturation - - Inhaled Oxygen Concentration - - Weight 104.8 kg (231 lb) 04/24/2017 10:32 AM LEGAL EXECUTIVE ASSISTANT Height 177.8 cm (5' 10 ) 04/24/2017 10:32 AM LEGAL EXECUTIVE ASSISTANT Body Mass Index 33.15 04/24/2017 10:32 AM LEGAL EXECUTIVE ASSISTANT Procedures * HEMOGLOBIN A1C(Performed 04/13/2024) * LIPID PROFILE(Performed 04/13/2024) * TSH REFLEX FREE T4(Performed 04/13/2024) * COMPREHENSIVE METABOLIC PANEL(Performed 04/13/2024) * CBC W AUTO DIFFERENTIAL(Performed 04/13/2024) * ND DESTRUCT BENIGN LESION, 1-14(Performed 05/30/2018) Performed for Other viral warts * ND DESTROY PREMALIG LESION, 1ST LESION(Performed 09/27/2017) Performed for Actinic keratosis Results * TSH REFLEX FREE T4 (04/13/2024 3:21 PM LEGAL EXECUTIVE ASSISTANT) Pathologist [facility] TSH 3.335 0.350 - 4.940 uIU/mL 04/13/2024 4:06 PM LEGAL EXECUTIVE ASSISTANT [facility] Blood BLOOD SPECIMEN / Unknown Venipuncture / Unknown 04/13/2024 3:21 PM LEGAL EXECUTIVE ASSISTANT 04/13/2024 3:25 PM LEGAL EXECUTIVE ASSISTANT Maged Mcdonnell LAB - CHEMISTRY ALFREDO WHEELER [facility] [address] [place] [address] * (ABNORMAL) HEMOGLOBIN A1C (04/13/2024 3:21 PM LEGAL EXECUTIVE ASSISTANT) Hemoglobin A1c 7.3(H) <5.7 % 04/13/2024 3:47 PM LEGAL EXECUTIVE ASSISTANT [facility] Estimated Average Glucose 163 mg/dL 04/13/2024 3:47 PM LEGAL EXECUTIVE ASSISTANT [facility] Blood BLOOD SPECIMEN / Unknown 04/13/2024 3:21 PM LEGAL EXECUTIVE ASSISTANT 04/13/2024 3:25 PM LEGAL EXECUTIVE ASSISTANT Narrative [facility] - 04/13/2024 3:47 PM LEGAL EXECUTIVE ASSISTANT HbA1c Interpretation: Normal: < 5.7% Pre-diabetes: 5.7-6.4% [...] Maged Mcdonnell LAB - CHEMISTRY ALFREDO WHEELER [facility] [address] [place] [address] * (ABNORMAL) CBC WITH DIFFERENTIAL (04/13/2024 3:21 PM LEGAL EXECUTIVE ASSISTANT) [facility] WBC 11.8(H) 4.0 - 10.7 x10E9/L 04/13/2024 3:32 PM LEGAL EXECUTIVE ASSISTANT [facility] RBC Count 4.77 4.30 - 5.80 x10E12/L 04/13/2024 3:32 PM LEGAL EXECUTIVE ASSISTANT [facility] Hemoglobin 13.9 13.3 - 17.5 g/dL 04/13/2024 3:32 PM [facility] Hematocrit 44.8 38.7 - 51.1 % 04/13/2024 3:32 PM [facility] MCV 93.9 80.0 - 98.0 fL 04/13/2024 3:32 PM [facility] MCH 29.1 26.7 - 33.6 pg 04/13/2024 3:32 PM [facility] MCHC 31.0(L) 31.7 - 36.3 g/dL 04/13/2024 3:32 PM [facility] RDW-CV 13.2 11.3 - 14.8 % 04/13/2024 3:32 PM [facility] Platelet Count 253 150 - 420 x10E9/L 04/13/2024 3:32 PM [facility] MPV 10.2 7.8 - 11.4 fL 04/13/2024 3:32 PM [facility] Neutrophil % 79.0(H) 41.0 - 74.0 % 04/13/2024 3:32 PM [facility] Lymphocyte % 10.8(L) 17.0 - 47.0 % 04/13/2024 3:32 PM [facility] Monocyte % 7.3 3.0 - 11.0 % 04/13/2024 3:32 PM [facility] Eosinophil % 1.5 0.0 - 7.0 % 04/13/2024 3:32 PM [facility] Basophil % 0.3 0.0 - 1.6 % 04/13/2024 3:32 PM [facility] Immature Granulocytes % 1.1(H) 0.0 - 1.0 % 04/13/2024 3:32 PM [facility] Neutrophil Absolute 9.32(H) 1.60 - 7.50 x10E9/L 04/13/2024 3:32 PM [facility] Lymphocyte Absolute 1.27 1.00 - 4.40 x10E9/L 04/13/2024 3:32 PM [facility] Monocyte Absolute 0.86 0.15 - 1.00 x10E9/L 04/13/2024 3:32 PM [facility] Eosinophil Absolute 0.18 0.00 - 0.60 x10E9/L 04/13/2024 3:32 PM [facility] Basophil Absolute 0.04 0.00 - 0.13 x10E9/L 04/13/2024 3:32 PM [facility] Blood BLOOD SPECIMEN / Unknown 04/13/2024 3:21 PM LEGAL EXECUTIVE ASSISTANT 04/13/2024 3:25 PM LEGAL EXECUTIVE ASSISTANT Maged Mcdonnell LAB - HEMATOLOGY ORD ERABLES [facility] [address] [place] [address] * (ABNORMAL) COMPREHENSIVE METABOLIC PANEL (04/13/2024 3:21 PM LEGAL EXECUTIVE ASSISTANT) Glucose 193(H) 70 - 99 mg/dL 04/13/2024 3:48 PM [facility] Sodium 140 136 - 145 mmol/L 04/13/2024 3:48 PM [facility] Potassium 3.4(L) 3.5 - 5.1 mmol/L 04/13/2024 3:48 PM [facility] Chloride 104 98 - 107 mmol/L 04/13/2024 3:48 PM [facility] CO2 26 22 - 29 mmol/L 04/13/2024 3:48 PM [facility] Calcium 9.6 8.4 - 10.4 mg/dL 04/13/2024 3:48 PM [facility] Anion Gap 10 6 - 16 mmol/L 04/13/2024 3:48 PM [facility] BUN 21 7 - 26 mg/dL 04/13/2024 3:48 PM [facility] Creatinine 1.51(H) 0.72 - 1.25 mg/dL 04/13/2024 3:48 PM [facility] Alkaline Phosphatase 109 40 - 150 U/L 04/13/2024 3:48 PM [facility] ALT 14 0 - 55 U/L 04/13/2024 3:48 PM [facility] AST 13 5 - 34 U/L 04/13/2024 3:48 PM [facility] Protein Total 6.9 6.4 - 8.3 gm/dL 04/13/2024 3:48 PM [facility] Albumin 3.4 3.4 - 5.0 gm/dL 04/13/2024 3:48 PM LEGAL EXECUTIVE ASSISTANT [facility] Bilirubin Total 0.3 0.2 - 1.2 mg/dL 04/13/2024 3:48 PM LEGAL EXECUTIVE ASSISTANT [facility] eGFR by CKD-EPI 49(L) >=90 mL/min/1.7 3 m2 04/13/2024 3:48 PM LEGAL EXECUTIVE ASSISTANT [facility] Blood BLOOD SPECIMEN / Unknown Venipuncture / Unknown 04/13/2024 3:21 PM LEGAL EXECUTIVE ASSISTANT 04/13/2024 3:25 PM LEGAL EXECUTIVE ASSISTANT Maged Scratch Hard LAB - CHEMISTRY LINDABert WHEELER Performing Organization Address [facility]/ZIP Co de Phone Number [facility] [address] [place] [address] * (ABNORMAL) LIPID PROFILE (04/13/2024 3:21 PM LEGAL EXECUTIVE ASSISTANT) Cholesterol 173 <200 mg/dL 04/13/2024 3:48 PM LEGAL EXECUTIVE ASSISTANT [facility] Triglycerides 179(H) <150 mg/dL 04/13/2024 3:48 PM LEGAL EXECUTIVE ASSISTANT [facility] HDL Cholesterol 26(L) >40 mg/dL 4 3:48 PM LEGAL EXECUTIVE ASSISTANT [facility] LDL Calculated 111 <130 mg/dL 04/13/2024 3:48 PM LEGAL EXECUTIVE ASSISTANT [facility] VLDL Calculated 36(H) <=30 mg/dL 4 3:48 PM LEGAL EXECUTIVE ASSISTANT [facility] Chol HDL Ratio 6.7(H) <4.5 04/13/2024 3:48 PM LEGAL EXECUTIVE ASSISTANT [facility] LDL/HDL Ratio 4.3 <5.0 04/13/2024 3:48 PM LEGAL EXECUTIVE ASSISTANT [facility] Blood BLOOD SPECIMEN / Unknown Venipuncture / Unknown 04/13/2024 3:21 PM LEGAL EXECUTIVE ASSISTANT 04/13/2024 3:25 PM LEGAL EXECUTIVE ASSISTANT [facility] - CHEMISTRY ORDBert WHEELER Performing Organization Address City/[facility]/ZIP Co de Phone Number [facility] [address] [place] [address] * ND DESTRUCT BENIGN LESION, 1-14 (05/30/2018 1:01 PM LEGAL EXECUTIVE ASSISTANT) Narrative Rand Tsang MD - 05/30/2018 1:01 PM LEGAL EXECUTIVE ASSISTANT Karthikeyan Ontiveros MD ? 05/30/2018 12:47 PM Diagnosis and treatment options discussed. Cryotherapy (Liquid Nitrogen) to 2 lesions for 10-12 seconds each. Number of cycles: 2. Wound care reviewed. - Abdomen x 2 Karthikeyan Ontiveros MD Dermatology Resident, PGY-4 Karthikeyan Ontiveros MD PROCEDURE/MINOR SURG ICAL ORDERABLES * ND DESTROY PREMALIG LESION, 1ST LESION (09/27/2017 12:12 PM CDT) Narrative Rand Tsang MD - 09/27/2017 12:12 PM CDT Nikhil Ames MD ? 09/20/2017 11:32 AM Diagnosis and treatment options discussed. Cryotherapy (Liquid Nitrogen) to 1 AK x 6-7 seconds each. Number of cycles: 1. Wound care reviewed. Rand Tsang MD PROCEDURE/MINOR NIETO RGICAL ORDERABLES Care Teams Vice President For Instruction Relationship Specialty Start Date End Date Carlos Moran MD PCP - General Internal Medicine 04/24/17
--- OUTSIDE RECORDS SUMMARY | 2024-05-30 13:49 | XMS_ITS | Encounter Summary ---
Author Organization [facility] Healthcare Address [address] [place] [address] Care Team Providers Care Counter Sales Representative Name Role Phone Nicolas Jung MD Unavailable [phone] Louie Lomeli MD Unavailable [phone] Melchor Woodard MD Primary Care Provider [phone] Jiaro Sparrow MD Unavailable [phone] Maria Eugenia Navarrete [facility] Unavailable [phone] Encounter Details Date Type Department Care Team (Late st Contact Info) Description 06/02/2023 Telephone [facility] [address] [place] [address] Jonathan Miranda MD [address] [place], [place] [id number] Social History Tobacco Use Types Packs/Day Years [...] How often do you attend chur or restoration services? Never 02/04/2023 Do you belong to any clubs o r organizations such as shinto groups, unions, fraternal or athletic groups, or [...] place to sleep or slept in a jail (including now)? Yes 02/04/2023 Personal Safety Answer Date Recorded Have you ever been in or are you currently in a harmful physical or emotional relationship or is someone making you feel afraid or unsafe? 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
--- OUTSIDE RECORDS SUMMARY | 2024-05-30 13:49 | XMS_ITS | Encounter Summary ---
Author Organization [facility] Healthcare Address [address] [place] [address] Care Team Providers Care Try Out Person Name Role Phone Nicolas Jung MD Unavailable [phone] Louie Lomeli MD Unavailable [phone] Melchor Woodard MD Primary Care Provider [phone] Jairo Sparrow MD Unavailable Maria Eugenia Navarrete [facility] Unavailable [phone] Encounter Details Date Type Department Care Team (Late st Contact Info) Description 01/24/2023 Orders Only [facility] [address] [address] [address] [place] [address] Miah Rodrigues MA Pre-op testing [...] week 12/24/2021 How often do you attend [facility] or mandaen services? Never 12/24/2021 Do you belong to any clubs o r organizations such as cheondoism groups, unions, fraternal or athletic groups, or [...] place to sleep or slept in a longterm (including now)? 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 Gender Identity Not on file Sexual Orientation [...] documented as of this encounter Care Teams Try Out Person Relationship Specialty Start Date End Date Melchor Woodard MD PCP - General Family Practice 07/30/22 Nicolas Jung MD Surgeon Orthopedic Surgery 08/05/21 Louie Lomeli MD Consulting Physician Cardiology 12/23/21 Jairo pSarrow MD [address] [place] [address] [address] [place] [address] Consulting Physician Neurology 12/14/22 Maria Eugenia Navarrete, [address] [place] [address] Pharmacist Pharmacy 03/12/24 03/12/24 documented as of this encounter
--- OUTSIDE RECORDS SUMMARY | 2024-05-30 13:49 | XMS_ITS | Referral Summary ---
Author Organization [facility] Address [address] [place] [address] Care Team Providers Care Ore Puncher Name Role Phone Carlos Moran MD Primary Care Provider [phone] Source Comments [facility],non-owned Affiliates and Associated Physician Practices is amultiple site organization consisting of ambulatory clinics and hospital sitesin [place], [place], [place]. This disclosure is being madepursuant to the Care Everywhere program and may not contain all information available regarding this patient. Last updated 18.[facility] Encounters Date Type Department Care Team Description 04/13/[address] [facility] [address] [place] [address] Maged Mcdonnell from Last 3 Months Allergies [...] Comments Blood Pressure 136/78 04/24/2017 10:32 AM GRINDER NEEDLE TIP Pulse 78 04/24/2017 10:32 AM GRINDER NEEDLE TIP Temperature 36.8 ??C (98.2 ??F) 04/24/2017 10:[address] Respiratory Rate - - Oxygen Saturation - - Inhaled Oxygen Concentration - - Weight 104.8 kg (231 lb) 04/24/2017 10:32 AM GRINDER NEEDLE TIP Height 177.8 cm (5' 10 ) 04/24/2017 10:32 AM GRINDER NEEDLE TIP Body Mass Index 33.15 04/24/2017 10:32 AM GRINDER NEEDLE TIP Plan of Treatment Not on file Procedures Procedure Name Priority Date/Time Associated Diagnosis Comments HEMOGLOBIN A1C STAT 04/13/2024 3:21 PM GRINDER NEEDLE TIP LIPID PROFILE STAT 04/13/2024 3:21 PM GRINDER NEEDLE TIP TSH REFLEX FREE T4 STAT 04/13/2024 3: 21 PM GRINDER NEEDLE TIP COMPREHENSIVE METABOLIC PANEL STAT 04/13/2024 3:21 PM GRINDER NEEDLE TIP CBC W AUTO DIFFERENTIAL STAT 04/13/2024 3:21 PM GRINDER NEEDLE TIP from Last 3 Months Results * TSH REFLEX FREE T4 (04/13/2024 3:21 PM GRINDER NEEDLE TIP) TSH 3.335 0.350 - 4.940 uIU/mL 04/13/2024 4:[address] [facility] Blood BLOOD SPECIMEN / Unknown Venipuncture / Unknown 04/13/2024 3:21 PM GRINDER NEEDLE TIP 04/13/2024 3:25 PM GRINDER NEEDLE TIP Maged Mcdonnell LAB - CHEMISTRY ALFREDO WHEELER Performing Organization Address [facility] Co de Phone Number [facility] [address] [place] [address] * (ABNORMAL) HEMOGLOBIN A1C (04/13/2024 3:21 PM GRINDER NEEDLE TIP) Hemoglobin A1c 7.3(H) <5.7 % 04/13/2024 3:[address] [facility] Estimated Average Glucose 163 mg/dL 04/13/2024 3:[address] [facility] Blood BLOOD SPECIMEN / Unknown 04/13/2024 3:21 PM GRINDER NEEDLE TIP 04/13/2024 3:25 PM GRINDER [employer]LE T[facility] Narrative [facility] - 04/13/2024 3:47 PM GRINDER NEEDLE TIP HbA1c Interpretation: Normal: < 5.7% Pre-diabetes: 5.7-6.4% [...] - CHEMISTRY ALFREDO WHEELER Performing Organization Address [facility]/ZIP Co de Phone Number [facility] [address] [place] [address] * (ABNORMAL) CBC WITH DIFFERENTIAL (04/13/2024 3:21 PM GRINDER NEEDLE TIP) [facility] WBC 11.8(H) 4.0 - 10.7 x10E9/L 04/13/2024 3:32 PM [facility] RBC Count 4.77 4.30 - 5.80 x10E12/L 04/13/2024 3:32 PM [facility] Hemoglobin 13.9 13.3 - 17.5 g/dL 04/13/2024 3:32 PM [facility] Hematocrit 44.8 38.7 - 51.1 % 04/13/2024 3:32 PM [facility] MCV 93.9 80.0 - 98.0 fL 04/13/2024 3:32 PM [facility] MCH 29.1 26.7 - 33.6 pg 04/13/2024 3:32 PM [facility] MCHC 31.0(L) 31.7 - 36.3 g/dL 04/13/2024 3:32 PM [facility] RDW-CV 13.2 11.3 - 14.8 % 04/13/2024 3:32 PM [facility] Platelet Count 253 150 - 420 x10E9/L 04/13/2024 3:32 PM [facility] MPV 10.2 7.8 - 11.4 fL 04/13/2024 3:32 PM [facility] Neutrophil % 79.0(H) 41.0 - 74.0 % 04/13/2024 3:32 PM [facility] Lymphocyte % 10.8(L) 17.0 - 47.0 % 04/13/2024 3:32 PM [facility] Monocyte % 7.3 3.0 - 11.0 % 04/13/2024 3:32 PM [facility] Eosinophil % 1.5 0.0 - 7.0 % 04/13/2024 3:32 PM [facility] Basophil % 0.3 0.0 - 1.6 % 04/13/2024 3:32 PM [facility] Immature Granulocytes % 1.1(H) 0.0 - 1.0 % 04/13/2024 3:32 PM [facility] Neutrophil Absolute 9.32(H) 1.60 - 7.50 x10E9/L 04/13/2024 3:[address] [facility] Lymphocyte Absolute 1.27 1.00 - 4.40 x10E9/L 04/13/2024 3:[address] [facility] Monocyte Absolute 0.86 0.15 - 1.00 x10E9/L 04/13/2024 3:[address] [facility] Eosinophil Absolute 0.18 0.00 - 0.60 x10E9/L 04/13/2024 3:32 PM [facility] Basophil Absolute 0.04 0.00 - 0.13 x10E9/L 04/13/2024 3:32 PM [facility] Blood BLOOD SPECIMEN / Unknown 04/13/2024 3:21 PM GRINDER NEEDLE TIP 04/13/2024 3:25 PM GRINDER NEEDLE TIP Maged Kecia LAB - HEMATOLOGY ORD ERABLES [facility] [address], [place] [id number] * (ABNORMAL) COMPREHENSIVE METABOLIC PANEL (04/13/2024 3:21 PM GRINDER NEEDLE TIP) Glucose 193(H) 70 - 99 mg/dL 04/13/2024 3:48 PM [facility] Sodium 140 136 - 145 mmol/L 04/13/2024 3:48 PM [facility] Potassium 3.4(L) 3.5 - 5.1 mmol/L 04/13/2024 3:48 PM [facility] Chloride 104 98 - 107 mmol/L 04/13/2024 3:48 PM [facility] CO2 26 22 - 29 mmol/L 04/13/2024 3:48 PM [facility] Calcium 9.6 8.4 - 10.4 mg/dL 04/13/2024 3:48 PM [facility] Anion Gap 10 6 - 16 mmol/L 04/13/2024 3:48 PM [facility] BUN 21 7 - 26 mg/dL 04/13/2024 3:48 PM [facility] Creatinine 1.51(H) 0.72 - 1.25 mg/dL 04/13/2024 3:[address] [facility] Alkaline Phosphatase 109 40 - 150 U/L 04/13/2024 3:[address] [facility] ALT 14 0 - 55 U/L 04/13/2024 3:[address] [facility] AST 13 5 - 34 U/L 04/13/2024 3:[address] [facility] Protein Total 6.9 6.4 - 8.3 gm/dL 04/13/2024 3:48 PM GRINDER NEEDLE TIP [facility] Albumin 3.4 3.4 - 5.0 gm/dL 04/13/2024 3:[address] [facility] Bilirubin Total 0.3 0.2 - 1.2 mg/dL 04/13/2024 3:[address] [facility] eGFR by CKD-EPI 49(L) >=90 mL/min/1.7 3 m2 04/13/2024 3:48 PM [facility] Blood BLOOD SPECIMEN / Unknown Venipuncture / Unknown 04/13/2024 3:21 PM GRINDER NEEDLE TIP 04/13/2024 3:25 PM GRINDER NEEDLE TIP Maged Kecia LAB - CHEMISTRY ALFREDO WHEELER [facility] [address], [place] [id number] * (ABNORMAL) LIPID PROFILE (04/13/2024 3:21 PM GRINDER NEEDLE TIP) Cholesterol 173 <200 mg/dL 04/13/2024 3:48 PM [facility] Triglycerides 179(H) <150 mg/dL 04/13/2024 3:48 PM [facility] HDL Cholesterol 26(L) >40 mg/dL 4 3:[address] [facility] LDL Calculated 111 <130 mg/dL 04/13/2024 3:48 PM [facility] VLDL Calculated 36(H) <=30 mg/dL 4 3:[address] [facility] Chol HDL Ratio 6.7(H) <4.5 04/13/2024 3:[address] [facility] LDL/HDL Ratio 4.3 <5.0 04/13/2024 3:[address] [facility] Blood BLOOD SPECIMEN / Unknown Venipuncture / Unknown 04/13/2024 3:21 PM GRINDER NEEDLE TIP 04/13/2024 3:25 PM GRINDER NEEDLE TIP Maged Mcdonnell LAB - CHEMISTRY ALFREDO WHEELER [facility] [address] [place] [address] from Last 3 Months Care Teams Ore Puncher Relationship Specialty Start Date End Date Carlos Moran MD PCP - General Internal Medicine 04/24/17
--- OUTSIDE RECORDS SUMMARY | 2024-05-30 13:49 | XMS_ITS | Encounter Summary ---
Author Organization [facility] Address [address] [place] [address] Care Team Providers Care Internet Marketing Coordinator Name Role Phone Carlos Moran MD Primary Care Provider [phone] Encounter Details Date Type Department Care Team (Late st Contact Info) Description 04/13/2024 Lab Requisition [facility] [address] [place] [address] [place] [address] Social History Tobacco Use Types Packs/Day Years [...] FREE T4 STAT 04/13/2024 3: 21 PM CONFERENCE SPECIALIST HEMOGLOBIN A1C STAT 04/13/2024 3:21 PM CONFERENCE SPECIALIST CBC W AUTO DIFFERENTIAL STAT 04/13/2024 3:21 PM CONFERENCE SPECIALIST COMPREHENSIVE METABOLIC PANEL STAT 04/13/2024 3:21 PM CONFERENCE SPECIALIST LIPID PROFILE STAT 04/13/2024 3:21 PM CONFERENCE SPECIALIST documented in this encounter Results * (ABNORMAL) HEMOGLOBIN A1C (04/13/2024 3:21 PM CONFERENCE SPECIALIST) Pathologist [facility] Hemoglobin A1c 7.3(H) <5.7 % 04/13/2024 3:47 PM CONFERENCE SPECIALIST [facility] Estimated Average Glucose 163 mg/dL 04/13/2024 3:47 PM [facility] Blood BLOOD SPECIMEN / Unknown 04/13/2024 3:21 PM CONFERENCE SPECIALIST 04/13/2024 3:[address] [facility] - 04/13/2024 3:47 PM CONFERENCE SPECIALIST HbA1c Interpretation: Normal: < 5.7% Pre-diabetes: 5.7-6.4% [...] Glycohemoglobin Standardization Program (NGSP) certified method. Maged cMdonnell LAB - CHEMISTRY ALFREDO WHEELER [facility] [address] [place] [address] * (ABNORMAL) LIPID PROFILE (04/13/2024 3:21 PM CONFERENCE SPECIALIST) [facility] Cholesterol 173 <200 mg/dL 04/13/2024 3:48 PM [facility] Triglycerides 179(H) <150 mg/dL 04/13/2024 3:48 PM CONFERENCE SPECIALIST [facility] HDL Cholesterol 26(L) >40 mg/dL 3:48 PM CONFERENCE SPECIALIST [facility] LDL Calculated 111 <130 mg/dL 04/13/2024 3:48 PM CONFERENCE SPECIALIST [facility] VLDL Calculated 36(H) <=30 mg/dL 3:48 PM CONFERENCE SPECIALIST [facility] Chol HDL Ratio 6.7(H) <4.5 04/13/2024 3:48 PM CONFERENCE SPECIALIST [facility] LDL/HDL Ratio 4.3 <5.0 04/13/2024 3:48 PM CONFERENCE SPECIALIST [facility] Blood BLOOD SPECIMEN / Unknown Venipuncture / Unknown 04/13/2024 3:21 PM CONFERENCE SPECIALIST 04/13/2024 3:25 PM CONFERENCE SPECIALIST Maged Kecia LAB - CHEMISTRY ORDE LIAM Performing Organization Address [facility]/ZIP Co de Phone Number [facility] [address] [place] [phone] * TSH REFLEX FREE T4 (04/13/2024 3:21 PM CONFERENCE SPECIALIST) TSH 3.335 0.350 - 4.940 uIU/mL 04/13/2024 4:06 PM CONFERENCE SPECIALIST [facility] Blood BLOOD SPECIMEN / Unknown Venipuncture / Unknown 04/13/2024 3:21 PM CONFERENCE SPECIALIST 04/13/2024 3:25 PM CONFERENCE SPECIALIST [employer] LAB - CHEMISTRY ORDE LIAM Performing Organization Address [facility]/ZIP Co de Phone Number [facility] [address] [place] [phone] * (ABNORMAL) COMPREHENSIVE METABOLIC PANEL (04/13/2024 3:21 PM CONFERENCE SPECIALIST) Glucose 193(H) 70 - 99 mg/dL 04/13/2024 3:48 PM CONFERENCE SPECIALIST [facility] Sodium 140 136 - 145 mmol/L 04/13/2024 3:48 PM CONFERENCE SPECIALIST [facility] Potassium 3.4(L) 3.5 - 5.1 mmol/L 04/13/2024 3:48 PM CONFERENCE SPECIALIST [facility] Chloride 104 98 - 107 mmol/L 04/13/2024 3:48 PM CONFERENCE SPECIALIST [facility] CO2 26 22 - 29 mmol/L 04/13/2024 3:48 PM [facility] Calcium 9.6 8.4 - 10.4 mg/dL 04/13/2024 3:48 PM [facility] Anion Gap 10 6 - 16 mmol/L 04/13/2024 3:48 PM CONFERENCE SPECIALIST [facility] BUN 21 7 - 26 [...] Unknown Venipuncture / Unknown 04/13/2024 3:21 PM CONFERENCE SPECIALIST 04/13/2024 3:25 PM [facility] Maged Mcdonnell LAB - CHEMISTRY LINDAE LIAM [facility] [address] [place] [address] * (ABNORMAL) CBC WITH DIFFERENTIAL (04/13/2024 3:21 PM CONFERENCE SPECIALIST) WBC 11.8(H) 4.0 - 10.7 x10E9/L 04/13/2024 3:32 PM CONFERENCE SPECIALIST [facility] RBC Count 4.77 4.30 - [...] 0.15 - 1.00 x10E9/L 04/13/2024 3:32 PM CONFERENCE SPECIALIST [facility] Eosinophil Absolute 0.18 0.00 - 0.60 x10E9/L 04/13/2024 3:32 PM CONFERENCE SPECIALIST [facility] Basophil Absolute 0.04 0.00 - 0.13 x10E9/L 04/13/2024 3:32 PM CONFERENCE SPECIALIST [facility] Blood BLOOD SPECIMEN / Unknown 04/13/2024 3:21 PM CONFERENCE SPECIALIST 04/13/2024 3:25 PM CONFERENCE SPECIALIST Maged Mcdonnell LAB - HEMATOLOGY ORD ERABLES [facility] [address] [place], [place] [phone] documented in this encounter Visit Diagnoses Not on filedocumented in this encounter Care Teams Internet Marketing Coordinator Relationship Specialty Start Date End Date Carlos Moran MD PCP - General Internal Medicine 04/24/17 documented as of this encounter
--- OUTSIDE RECORDS SUMMARY | 2024-05-30 13:50 | XMS_ITS | Referral Summary ---
Author Organization [facility] Address [address] [place] [address] Care Team Providers Care Wind Energy Project Manager Name Role Phone Nicolas Jung MD Unavailable [phone] Louie Lomeli MD Unavailable [phone] Melchor Woodard MD Primary Care Provider [phone] Tania Sparrow MD Unavailable [phone] Encounters Date Type Department Care Team Description 05/01/2024 3:00 PM AIRPORT ATTENDANT Office Visit [facility] Sports Medicine [address] [place] [address] [address] [address] Karen Christopher NP Primary osteoarthritis of left knee (Primary Dx); Left foot pain 04/04/2024 5:47 PM AIRPORT ATTENDANT - 04/10/2024 4:13 PM AIRPORT ATTENDANT Hospital Encounter [facility] IMU [address] [place] [address] Nikolas Doty MD Bross, Deborah L F D, MD Kim, Eileen H., MD Nikolic, Jelena, MD Nocturnal hypoxia (Primary Dx); Chest pain due to myocardial ischemia, unspecified ischemic chest pain type; Nocturnal oxygen desaturation Discharge Disposition: Discharge to an Rehab facility 04/05/2024 Orders Only [facility] Cardiology [address] [place] [address] Cristy Otoole 04/02/2024 Telephone [facility] Medical [facility] Medicine [address] [place] [address] [address] [place] [address] Mariangel Mallory MA 03/12/2024 ACO Quality [address] [address] Amira Hensley MA 03/12/2024 ACO Clinical Pharmacist [address] [address] Maria Eugenia Navarrete RPh 03/01/2024 Orders Only [facility] Orthopedics and Sports Medicine [address] [place] [address] [address] [place] [address] Karen Christopher NP Left foot pain (Primary Dx) 03/01/2024 1:03 PM CDT - 03/01/2024 11:59 PM CDT Hospital Encounter [facility] Orthopedics and Sports Medicine [address] [place] [address] [address] [address] Discharge Disposition: Discharge to home or self care 03/01/2024 1:00 PM CDT Office Visit [facility] Orthopedics and Sports Medicine [address] [place] [address] [address] [place] [address] Karen Christopher NP Primary osteoarthritis of left knee (Primary Dx) 02/28/2024 2:38 PM CDT - 02/28/2024 3:46 PM CDT Emergency [facility] Emergency Department [address] [place] [address] Acute pain of left knee (Primary Dx) Discharge Disposition: Discharge to home or self care from Last 3 Months Allergies Active Allergy Reactions Criticality Noted Date Comments Ceftriaxone Nausea only Low 09/23/2021 Rjoftpm-Lql-Tom Reductase Inhibitors Other (See comments) Low 01/26/2018 [...] 1 tablet (50 mcg total) by mouth seat cover cutter before breakfast Active hydroCHLOROthiaz jared (HYDRODIURIL) 25 [...] 06/01/2022 Assessment & Plan (06/01/2022 3:29 PM AIRPORT ATTENDANT): Worsening, patient reports symptoms are worse 1st thing in the morning, has to clean eyes before can open; fewer symptoms throughout the day; most consistent with allergic conjunctivitis Start azelastine eyedrops Diabetic neuropathy, type II diabetes mellitus ( [facility]) 05/27/2022 LALITO (acute kidney injury) 03/10/2022 Obesity (BMI 30-39.9) 03/10/2022 Other chest pain 03/09/2022 Assessment & Plan (06/01/2022 3:28 PM AIRPORT ATTENDANT): Continues to have episodes of chest pain, started in nature; can radiate to right-side of chest Patient reports some relief with ASA; has nitroglycerin Will continue to monitor; if negative cardio workup, consider esophageal spasms of source of pain Assessment & Plan (04/06/2022 11:47 AM AIRPORT ATTENDANT): Reports pressure-like chest pain today, worsening fatigue [...] (12/29/2021): Added automatically from request for surgery [id number] Leukocytosis 12/19/2021 UTI (urinary tract infection) 12/19/2021 Coronary artery disease 12/18/2021 Overview (12/18/2021): Added automatically from request for surgery [id number] Assessment & Plan (03/07/2022 9:41 AM AIRPORT ATTENDANT): Not well controlled, patient had stopped taking all medications, had elevated blood pressures today Encouraged patient to continue medications as prescribed Continue Brilinta 90 mg b.i.d., Zetia 10 mg daily Hypertensive crisis 12/16/2021 Assessment & Plan (12/17/2021 12:13 PM CDT): Present on admission, received Labetalol iv, currently resolved NSTEMI (non-ST elevated myocardial infarction) ( [facility]) 12/16/2021 Overview (12/17/2021): Added automatically from request for surgery [id number] Assessment & Plan (01/10/2022 9:21 PM CDT): [...] Nasal saline spray (Simply saline, Little Remedies, [place], [place]) 2 second sprays or 2 squeezes into [...] (11/18/2020): Added automatically from request for surgery [id number] Assessment & Plan (03/20/2021 4:30 PM AIRPORT ATTENDANT): Stable, patient waiting on improved A1c for [...] (11/18/2020): Added automatically from request for surgery [id number] Scar of vermilion border of upper lip 07/04/2020 Overview (07/04/2020): Referral to plastic surgery for evaluation and possible affects scar tissue Cicatrix 07/04/2020 Tension headache 06/30/2020 Assessment & Plan (06/25/2021 10:33 AM AIRPORT ATTENDANT): Patient has recurrent left-sided tension headaches; likely secondary to pressure on muscles from lipoma Assessment & Plan (06/09/2021 1:59 PM AIRPORT ATTENDANT): Patient has headache for the last 4-6 [...] nostril Assessment & Plan (06/30/2020 12:31 PM AIRPORT ATTENDANT): Patient has severe left sided headache; reports worsened with looking down or leaning back in bed; may be related to sinuses vs tension type headache -given congestion may consider sinus pressure and will refer to ENT Chronic midline low back pain without sciatica 0 06/30/2020 Assessment & Plan (06/30/2020 12:33 PM AIRPORT ATTENDANT): Not well controlled; likely worsened due to poor core strength; encouraged weight loss to reduce strain on lower back (has severe central adiposity) Will give patient core exercises to strengthen low back and abodmen Lipoma of neck 06/25/2020 Assessment & Plan (06/25/2021 10:32 AM AIRPORT ATTENDANT): Not well controlled, patient has left-sided tension style headaches, S with noted changing position of head due to size of lipoma Patient benefit from surgical removal to help improve overall posture as well as potentially improved tension headaches Assessment & Plan (05/14/2021 1:29 PM AIRPORT ATTENDANT): Patient has large lipoma on back left-sided neck; reports left-sided headaches, which may be contributed by lipoma putting pressure on muscles sugar causing tension headaches Referral to Plastic surgery for removal Assessment & Plan (03/20/2021 4:29 PM AIRPORT ATTENDANT): Stable, Impacts patient ability to turn had; will continue monitor refer to surgery when appropriate Primary osteoarthritis of left knee 05/08/2020 Assessment & Plan (11/17/2021 3:53 PM CDT): Continues to have significant pain, has some symptom improvement, but limited range of motion and pain with movement Recent steroid injection Follow-up with orthopedics Assessment & Plan (04/21/2021 2:52 PM AIRPORT ATTENDANT): Stable, continues with physical therapy which is [...] monitor Assessment & Plan (05/14/2021 1:29 PM AIRPORT ATTENDANT): Improving, patient has walked about 12 lb since last visit; encouraged continued dietary changes, decreasing in take through portion control as well as lowering carbohydrate intake Encourage daily activity of 30 minutes of moderate intensity aerobic exercise daily Assessment & Plan (03/20/2021 4:29 PM AIRPORT ATTENDANT): Weight is stable, no significant change; patient [...] week Assessment & Plan (05/05/2020 3:33 PM AIRPORT ATTENDANT): Not well controlled, patient reports weight loss [...] daily Assessment & Plan (06/25/2021 10:31 AM AIRPORT ATTENDANT): Stable, unclear control, patient reports inconsistent medications use Continue levothyroxine 50 mcg daily, check TSH today Assessment & Plan (04/21/2021 2:52 PM AIRPORT ATTENDANT): Stable, well controlled; continue levothyroxine 50 mcg daily Assessment & Plan (03/20/2021 4:28 PM AIRPORT ATTENDANT): Stable, well controlled; continue levothyroxine 50 mcg daily Assessment & Plan (09/24/2020 3:00 PM CDT): Recheck TSH today as previous TSH was mildly elevated, is still elevated will adjust levothyroxine given patient has complaints of generalized fatigue Assessment & Plan (06/16/2020 9:09 AM AIRPORT ATTENDANT): Will recheck thyroid now that has been on medication for ~6 weeks Assessment & Plan (05/05/2020 3:36 PM AIRPORT ATTENDANT): Mild elevation of TSH, patient has multiple symptoms including inability to lose weight, chronic fatigue and chronic tiredness Will start at low dose levothyroxine 25 mcg, will recheck TSH in approximately 6 weeks Arthritis 03/24/2020 DM2 (diabetes mellitus, type 2) 03/24/2020 Assessment & Plan (06/01/2022 3:30 PM AIRPORT ATTENDANT): Not well controlled, A1c has always been [...] diet Assessment & Plan (06/25/2021 10:31 AM AIRPORT ATTENDANT): Stable, improving; patient A1c has been down trending to 7.5 last time, recheck A1c today Continue metformin XR 1000 mg daily Assessment & Plan (05/14/2021 1:28 PM AIRPORT ATTENDANT): Stable, improving; last A1c was decreasing to 7.5 Encouraged patient to continue with low-carbohydrate diet; encourage education dietary changes as well as regular exercise Continue metformin 1000 mg daily Assessment & Plan (04/21/2021 2:52 PM AIRPORT ATTENDANT): Stable, improving; patient reports he has been working on decreasing carbohydrates Has a decreased appetite well on Rybelsuswith minimal side effects Continue metformin 1000 mg daily with breakfast, Rybelsus 7 mg prior to breakfast Continue to monitor encourage continued decreased carbohydrate diet Recheck labs at follow-up appointment Assessment & Plan (03/20/2021 4:28 PM AIRPORT ATTENDANT): Stable, well controlled, improving Patient reports improved [...] diet Assessment & Plan (05/05/2020 3:32 PM AIRPORT ATTENDANT): Not well controlled, A1c is 7.7 today [...] strength Assessment & Plan (03/26/2020 12:24 PM AIRPORT ATTENDANT): Will check blood sugars and A1c to evaluate for control of diabetes on metformin Hyperlipidemia 03/24/2020 Assessment & Plan (12/17/2021 12:16 PM CDT): Pt is not on a statin due to intolerance LDL is 107. Started on Zetia per cardiology. Assessment & Plan (10/13/2021 2:34 PM CDT): Not well controlled, encouraged continued dietary changes and weight loss Assessment & Plan (05/14/2021 1:28 PM AIRPORT ATTENDANT): Not well controlled, patient cannot tolerate statins; encouraged dietary changes order reduce cholesterol through low-fat high-fiber diet Assessment & Plan (05/05/2020 3:35 PM AIRPORT ATTENDANT): Poorly controlled patient has elevated total and LDL cholesterol with knee depressed HDL cholesterol Triglycerides are also elevated at 254 Patient is unable to tolerate statin therapy due to muscular pain of thigh muscles Will encouraged diet and exercise as ways to maintain and modify cholesterol level Hypertension, essential 03/24/2020 Assessment & Plan (06/01/2022 3:30 PM AIRPORT ATTENDANT): Stable, improving; blood pressure today in clinic was normal; patient reports home measurements are improving Continue amlodipine 10 mg daily, hydralazine 25 mg b.i.d., metoprolol 100 mg daily Losartan was previously on medication list, but not part of pharmacy was Given blood pressures appropriate, will continue to monitor, can rehab losartan if blood pressure increases Assessment & Plan (04/06/2022 11:47 AM AIRPORT ATTENDANT): Stable, improving; most recent blood pressure was at target Continue losartan 100 mg daily, metoprolol 100 mg daily, amlodipine 10 mg daily Assessment & Plan (03/07/2022 9:40 AM AIRPORT ATTENDANT): Not well controlled; patient reports that he [...] daily Assessment & Plan (06/25/2021 10:30 AM AIRPORT ATTENDANT): Not well controlled; blood pressure is elevated this morning prior to surgery, elevated again in office Given blood pressure was just normal on 06/09/2021, will increase lisinopril to 40 mg daily Encouraged patient to consistently take medications, with no missed or skipped doses Assessment & Plan (05/14/2021 1:27 PM AIRPORT ATTENDANT): Not well controlled, blood pressure remains elevated; patient has been inconsistent with taking medications Will continue lisinopril 20 mg, follow-up at next appointment; if blood pressure still is elevated will adjust medication Assessment & Plan (03/20/2021 4:27 PM AIRPORT ATTENDANT): Stable well controlled; blood pressure a target; [...] needed Assessment & Plan (05/05/2020 3:34 PM AIRPORT ATTENDANT): Well controlled, patient's blood pressure is at target today Will continue with current therapies and continue to monitor patient Assessment & Plan (03/26/2020 12:24 PM AIRPORT ATTENDANT): Stable well controlled, continue present management Post-traumatic [...] arthroscopy Assessment & Plan (06/16/2020 9:09 AM AIRPORT ATTENDANT): Not well controlled, had relief with cortisone injection, but now has worsening pain; relief last for about 3-4 weeks -has some instability of patella, able to 'adjust' patella to relieve pain and improve ROM Assessment & Plan (05/05/2020 3:34 PM AIRPORT ATTENDANT): Stable, not controlled Patient is not able to consistently place weight on the Patient to follow-up with orthopedics further evaluation, based on recommendations may refer to physical therapy Assessment & Plan (03/26/2020 12:24 PM AIRPORT ATTENDANT): Will start treatment with diclofenac cream, and use of the triamcinolone as necessary If needed will refer to physical therapy for further improvement in pain Polyneuropathy associated with underlying diseas e ([facility]) 10/24/2019 Assessment & Plan (04/06/2022 11:44 AM AIRPORT ATTENDANT): Continues to have numbness and weakness in bilateral legs; patient scheduled nerve conduction study Continue gabapentin 100 mg TID Continue with exercise, and strength training; noted to have decreased strength in hip flexors; normal with knee -if EMG is normal, consider CK or evaluation of polymyalgia or polymysitis Assessment & Plan (05/05/2020 3:34 PM AIRPORT ATTENDANT): Patient has episodes of decreased balance due [...] management Assessment & Plan (06/25/2021 10:32 AM AIRPORT ATTENDANT): Not well controlled, patient continues to have frequent nighttime urination; encouraged patient to continue follow-up with Urology and reschedule surgery Continue myrbetriq 50 mg daily Assessment & Plan (03/20/2021 4:30 PM AIRPORT ATTENDANT): Patient continues to have increased urinary frequency, [...] materials from doctor or pharmacy Sometimes 01/17/2024 [facility] Utilities Answer Date Recorded In the past 12 months has th e electric, gas, oil, or water company threatened to [...] often do you attend chur ch or faith services? Never 04/05/2024 Do you belong to any clubs o r organizations such as scientologist groups, unions, fraternal or athletic groups, or [...] place to sleep or slept in a long-term (including now)? No 08/29/2023 Housing Stability Vital Sign Answer Víctor e Recorded In the last 12 months, was t here a time when you were not able to pay the mortgage or rent on time? No 04/05/2024 In the past 12 months, how m any times have you moved where you were living? 0 04/05/2024 At any time in the past 12 m [facility], were you homeless or living in a long-term (including now)? No 04/05/2024 Personal Safety Answer [...] on file Legal Sex Male 12:23 AM AIRPORT ATTENDANT Gender Identity Not on file Sexual Orientation Not on file Last Filed Vital Signs Vital Sign Reading Time Taken Comments Blood Pressure 128/76 05/01/2024 12:51 PM AIRPORT ATTENDANT Pulse 74 05/01/2024 12:51 PM AIRPORT ATTENDANT Temperature 36.8 ??C (98.3 ??F) 04/10/2024 11:[address] Respiratory Rate 20 04/10/2024 11:24 AM AIRPORT ATTENDANT Oxygen Saturation 92% 04/10/2024 11:24 AM AIRPORT ATTENDANT Inhaled Oxygen Concentration - - Weight 121.1 kg (267 lb) 05/01/2024 12:51 PM AIRPORT ATTENDANT Height 177.8 cm (5' 10 ) 05/01/2024 12:51 PM AIRPORT ATTENDANT Body Mass Index 38.31 05/01/2024 12:51 PM AIRPORT ATTENDANT Plan of Treatment Not on file Medical Devices Implanted Type Area Shotblast Operator Device Identifier Shelf Expiration Date Model / Serial / Lot [employer] Synergy Xd Monorail 3.5mm 12mm 144cm Delivery System 1 Access [id number] - [id number] Implanted:Qty: 1 on 08/29/2023 by Louie Lomeli MD at [facility] Stent [employer] 10/19/2024 [id number] / / [id number] [employer] Stent Coronary De Rx Cocr Xience Skypoint [id number] [id number] - [id number] Implanted:Qty: 1 on 12/17/2021 by Louie Lomeli MD at [facility] [employer] 08/24/2023 [id number] [employer] Stent Coronary De Rx Cocr Xience Skypoint [id number] - [id number] Implanted:Qty: 1 on 12/17/2021 by Louie Lomeli MD at [facility] [employer] 08/28/2023 [id number] [employer] Synergy 3mm 16mm 144cm Radiopaque 1 Access Port Inflation Lumen [id number] - [id number] Implanted:Qty: 1 on 12/22/2021 by Louie Lomeli MD at [facility] [employer] Daysi 09/04/2022 [id number] / / [id number] [facility] Angio-Seal Vip 6fr Closere Device [id number] - [id number] Implanted:Qty: 1 on 12/22/2021 by Louie Lomeli MD at [facility] [employer] 09/29/2022 [id number] / / [id number] Procedures Procedure Name Priority Date/Time Associated Diagnosis Comments [place] ARTHROCENTESIS ASPIR&/INJ MAJOR JT/BURSA W/O US Routine 05/01/2024 3:00 PM AIRPORT ATTENDANT Primary osteoarthritis of left knee POCT GLUCOSE DEVICE Routine 04/10/2024 11:28 AM AIRPORT ATTENDANT POCT GLUCOSE DEVICE Routine 04/10/2024 8 :01 AM AIRPORT ATTENDANT POCT GLUCOSE DEVICE Routine 04/10/2024 2 :33 AM AIRPORT ATTENDANT EGFR Routine 04/10/2024 2:30 AM AIRPORT ATTENDANT DIFFERENTIAL AUTO Routine 04/10/2024 2:3 0 AM AIRPORT ATTENDANT PHOSPHORUS Routine 04/10/2024 2:30 AM AIRPORT ATTENDANT CBC WITH AUTO DIFFERENTIAL Routine 04/10/2024 2:30 AM AIRPORT ATTENDANT MAGNESIUM Routine 04/10/2024 2:30 AM AIRPORT ATTENDANT COMPREHENSIVE METABOLIC PANEL Routine 04/10/2024 2:30 AM AIRPORT ATTENDANT EGFR Timed 04/10/2024 12:05 AM AIRPORT ATTENDANT CREATININE Timed 04/10/2024 12:05 AM AIRPORT ATTENDANT CBC WITHOUT DIFFERENTIAL Timed 04/10/2024 12:05 AM AIRPORT ATTENDANT POCT GLUCOSE DEVICE Routine 04/09/2024 8 :55 PM AIRPORT ATTENDANT POCT GLUCOSE DEVICE Routine 04/09/2024 5 :11 PM AIRPORT ATTENDANT POCT GLUCOSE DEVICE Routine 04/09/2024 11:19 AM AIRPORT ATTENDANT POCT GLUCOSE DEVICE Routine 04/09/2024 7 :38 AM AIRPORT ATTENDANT POCT GLUCOSE DEVICE Routine 04/09/2024 2 :37 AM AIRPORT ATTENDANT EGFR Routine 04/09/2024 2:15 AM AIRPORT ATTENDANT DIFFERENTIAL AUTO Routine 04/09/2024 2:1 5 AM AIRPORT ATTENDANT PHOSPHORUS Routine 04/09/2024 2:15 AM AIRPORT ATTENDANT CBC WITH AUTO DIFFERENTIAL Routine 04/09/2024 2:15 AM AIRPORT ATTENDANT MAGNESIUM Routine 04/09/2024 2:15 AM AIRPORT ATTENDANT COMPREHENSIVE METABOLIC PANEL Routine 04/09/2024 2:15 AM AIRPORT ATTENDANT POCT GLUCOSE DEVICE Routine 04/08/2024 8 :41 PM AIRPORT ATTENDANT POCT GLUCOSE DEVICE Routine 04/08/2024 4 :45 PM AIRPORT ATTENDANT POCT GLUCOSE DEVICE Routine 04/08/2024 11:51 AM AIRPORT ATTENDANT POCT GLUCOSE DEVICE Routine 04/08/2024 8 :41 AM AIRPORT ATTENDANT EGFR Routine 04/08/2024 3:00 AM AIRPORT ATTENDANT DIFFERENTIAL AUTO Routine 04/08/2024 3:0 0 AM AIRPORT ATTENDANT PHOSPHORUS Routine 04/08/2024 3:00 AM AIRPORT ATTENDANT CBC WITH AUTO DIFFERENTIAL Routine 04/08/2024 3:00 AM AIRPORT ATTENDANT MAGNESIUM Routine 04/08/2024 3:00 AM AIRPORT ATTENDANT COMPREHENSIVE METABOLIC PANEL Routine 04/08/2024 3:00 AM AIRPORT ATTENDANT POCT GLUCOSE DEVICE Routine 04/08/2024 1 :58 AM AIRPORT ATTENDANT POCT GLUCOSE DEVICE Routine 04/07/2024 8 :27 PM AIRPORT ATTENDANT POCT GLUCOSE DEVICE Routine 04/07/2024 5 :01 PM AIRPORT ATTENDANT POCT GLUCOSE DEVICE Routine 04/07/2024 11:47 AM AIRPORT ATTENDANT EGFR Routine 04/07/2024 9:18 AM AIRPORT ATTENDANT DIFFERENTIAL AUTO Routine 04/07/2024 9:1 8 AM AIRPORT ATTENDANT PHOSPHORUS Routine 04/07/2024 9:18 AM AIRPORT ATTENDANT CBC WITH AUTO DIFFERENTIAL Routine 04/07/2024 9:18 AM AIRPORT ATTENDANT MAGNESIUM Routine 04/07/2024 9:18 AM AIRPORT ATTENDANT COMPREHENSIVE METABOLIC PANEL Routine 04/07/2024 9:18 AM AIRPORT ATTENDANT POCT GLUCOSE DEVICE Routine 04/07/2024 8 :24 AM AIRPORT ATTENDANT POCT GLUCOSE DEVICE Routine 04/06/2024 8 :32 PM AIRPORT ATTENDANT POCT GLUCOSE DEVICE Routine 04/06/2024 5 :18 PM AIRPORT ATTENDANT URINALYSIS AND REFLEX TO MICROSCOPIC AND CULTURE Routine 04/06/2024 4:18 PM AIRPORT ATTENDANT XR ANKLE LEFT 3 OR MORE VIEWS IP Routine 04/06/2024 3:14 PM AIRPORT ATTENDANT XR FOOT LEFT 3 OR MORE VIEWS IP Routine 04/06/2024 3:14 PM AIRPORT ATTENDANT POCT GLUCOSE DEVICE Routine 04/06/2024 12:05 PM AIRPORT ATTENDANT BLOOD GAS, VENOUS Routine 04/06/2024 10:20 AM AIRPORT ATTENDANT PULSE OXIMETRY STUDY Routine 04/06/2024 9:53 AM AIRPORT ATTENDANT POCT GLUCOSE DEVICE Routine 04/06/2024 8 :26 AM AIRPORT ATTENDANT EGFR Routine 04/06/2024 2:21 AM AIRPORT ATTENDANT DIFFERENTIAL AUTO Routine 04/06/2024 2:2 1 AM AIRPORT ATTENDANT CBC WITH AUTO DIFFERENTIAL Routine 04/06/2024 2:21 AM AIRPORT ATTENDANT MAGNESIUM Routine 04/06/2024 2:21 AM AIRPORT ATTENDANT COMPREHENSIVE METABOLIC PANEL Routine 04/06/2024 2:21 AM AIRPORT ATTENDANT POCT GLUCOSE DEVICE Routine 04/06/2024 1 :58 AM AIRPORT ATTENDANT POCT GLUCOSE DEVICE Routine 04/05/2024 8 :47 PM AIRPORT ATTENDANT POCT GLUCOSE DEVICE Routine 04/05/2024 5 :20 PM AIRPORT ATTENDANT ECG 12-LEAD Routine 04/05/2024 2:40 PM AIRPORT ATTENDANT POCT GLUCOSE DEVICE Routine 04/05/2024 1 :26 PM AIRPORT ATTENDANT STRESS TEST FOR DUAL READ IP Routine 04/05/2024 1:22 PM AIRPORT ATTENDANT NM MPI SPECT (REST AND/OR STRESS) MULTIPLE STUDIES IP Routine 04/05/2024 1:22 PM AIRPORT ATTENDANT POCT GLUCOSE DEVICE Routine 04/05/2024 8 :33 AM AIRPORT ATTENDANT EGFR Routine 04/05/2024 6:48 AM AIRPORT ATTENDANT DIFFERENTIAL AUTO Routine 04/05/2024 6:4 8 AM AIRPORT ATTENDANT CBC WITH AUTO DIFFERENTIAL Routine 04/05/2024 6:48 AM AIRPORT ATTENDANT MAGNESIUM Routine 04/05/2024 6:48 AM AIRPORT ATTENDANT COMPREHENSIVE METABOLIC PANEL Routine 04/05/2024 6:48 AM AIRPORT ATTENDANT POCT GLUCOSE DEVICE Routine 04/05/2024 2 :22 AM AIRPORT ATTENDANT TROPONIN T HIGH-SENSITIVITY 4-HR Timed 04/04/2024 11:16 PM AIRPORT ATTENDANT POCT GLUCOSE DEVICE Routine 04/04/2024 9 :25 PM AIRPORT ATTENDANT EGFR STAT 04/04/2024 7:30 PM AIRPORT ATTENDANT CREATININE STAT 04/04/2024 7:30 PM AIRPORT ATTENDANT CBC WITHOUT DIFFERENTIAL STAT 04/04/2024 7:30 PM AIRPORT ATTENDANT TROPONIN T HIGH-SENSITIVITY 2-HOUR Timed 04/04/2024 7:30 PM AIRPORT ATTENDANT POCT GLUCOSE DEVICE Routine 04/04/2024 7 :25 PM AIRPORT ATTENDANT APTT STAT 04/04/2024 5:57 PM AIRPORT ATTENDANT PROTIME-INR STAT 04/04/2024 5:57 PM AIRPORT ATTENDANT EGFR STAT 04/04/2024 5:57 PM AIRPORT ATTENDANT PRO B-TYPE NATRIURETIC PEPTIDE Routine 04/04/2024 5:57 PM AIRPORT ATTENDANT DIFFERENTIAL AUTO STAT 04/04/2024 5:5 7 PM AIRPORT ATTENDANT TROPONIN T HIGH-SENSITIVITY SERIES (BASELINE, 2HR, 4HR, 6HR) STAT 04/04/2024 5:57 PM AIRPORT ATTENDANT COMPREHENSIVE METABOLIC PANEL STAT 04/04/2024 5:57 PM AIRPORT ATTENDANT CBC WITH AUTO DIFFERENTIAL STAT 04/04/2024 5:57 PM AIRPORT ATTENDANT XR CHEST 1 VIEW ED 04/04/2024 5:27 PM AIRPORT ATTENDANT ECG 12-LEAD STAT 04/04/2024 5:11 PM AIRPORT ATTENDANT XR KNEE LEFT 4 OR MORE VIEWS [...] Recently Relevant to Health Maintenance Results * [place] ARTHROCENTESIS ASPIR&/INJ MAJOR JT/BURSA W/O US (05/01/2024 3:00 PM AIRPORT ATTENDANT) Narrative Karen Christopher NP - 05/01/2024 3:00 PM AIRPORT ATTENDANT Karen Christopher NP ? 05/01/2024 ??1:31 PM [...] with no immediate complications us Karen Christopher [facility]/BEDSIDE ORDER ALLEGRA Final Result * POCT glucose (04/10/2024 11:28 AM AIRPORT ATTENDANT) Glucose, POC 187 70 - 199 mg/dL Blood 04/10/2024 11:2 8 AM AIRPORT ATTENDANT 04/10/2024 11:28 AM AIRPORT ATTENDANT us Jessenia Rizvi MD LAB POCT ORDERABLES - DEVICE F inal Result [facility] ([place]) 1 [facility] [place] [address] * POCT glucose (04/10/2024 8:01 AM AIRPORT ATTENDANT) Glucose, POC 135 70 - 199 mg/dL Blood 04/10/2024 8:01 AM AIRPORT ATTENDANT 04/10/2024 8:01 AM AIRPORT ATTENDANT us Jessenia Rizvi MD LAB POCT ORDERABLES - DEVICE F inal Result Performing Organization Address [facility]/ZIP Co de Phone Number [facility] ([place]) [address] [place] [address] * POCT glucose (04/10/2024 2:33 AM AIRPORT ATTENDANT) Glucose, POC 129 70 - 199 mg/dL Blood 04/10/2024 2:33 AM AIRPORT ATTENDANT 04/10/2024 2:33 AM AIRPORT ATTENDANT us Marco Antonio Niño MD LAB POCT ORDERABLES - DEVICE Fi nal Result Performing Organization Address [facility] de Phone Number [facility] ([place]) 1 [facility] [place] [employer] [address] * eGFR (04/10/2024 2:30 AM AIRPORT ATTENDANT) eGFR 61 >=60 mL/min/1. 73 m2 Comment: [...] last reviewed 2021. Blood 04/10/2024 2:30 AM AIRPORT ATTENDANT 04/10/2024 4:05 AM AIRPORT ATTENDANT us Krystal Araujo MD LAB BLOOD ORDERABLES Fi nal Result [facility] ([place]) 1 [facility] [place] [address] * (ABNORMAL) Differential, auto (04/10/2024 2:30 AM AIRPORT ATTENDANT) Neutrophil abs 8.2(H) 1.5 - 6.5 K/cumm [...] revised on 2017. Blood 04/10/2024 2:30 AM AIRPORT ATTENDANT 04/10/2024 4:02 AM AIRPORT ATTENDANT us Krystal Araujo MD LAB BLOOD ORDERABLES nal Result [facility] ([place]) 1 [facility] [place] Department of [place], [place] [id number] * (ABNORMAL) CBC with auto differential (04/10/2024 2:30 AM AIRPORT ATTENDANT) WBC 10.7(H) 3.8 - 9.9 K/cumm Hgb [...] 13.6 11.1 - 14.9 % [facility] ([place]) RDW SD 46.4 35.7 - 48.1 fL [facility] ([place]) NRBC abs 0.00 0.00 - 0.01 K/cumm [facility] ([place]) Blood 04/10/2024 2:30 AM AIRPORT ATTENDANT 04/10/2024 4:02 AM AIRPORT ATTENDANT Krystal Araujo MD LAB BLOOD ORDERABLES Fi nal Result [facility] ([place]) 1 [facility] [place] [employer] [place] [address] * Phosphorus (04/10/2024 2:30 AM AIRPORT ATTENDANT) Phosphorus, pl 2.5 2.3 - 4.5 mg/dL Blood 04/10/2024 2:30 AM AIRPORT ATTENDANT 04/10/2024 4:05 AM AIRPORT ATTENDANT Marco Antonio Niño MD LAB BLOOD ORDERABLES Final Resu lt Performing Organization Address [facility] Co de Phone Number [facility] ([place]) 1 [facility] [place] [employer] [place] [address] * Magnesium (04/10/2024 2:30 AM AIRPORT ATTENDANT) Magnesium 1.9 1.4 - 2.5 mg/dL Blood 04/10/2024 2:30 AM AIRPORT ATTENDANT 04/10/2024 4:05 AM AIRPORT ATTENDANT Krystal Araujo MD LAB BLOOD ORDERABLES Fi nal Result Performing Organization Address [facility]/ZIP Co de Phone Number [facility] ([place]) 1 [facility] [place] [address] * Comprehensive metabolic panel (04/10/2024 2:30 AM AIRPORT ATTENDANT) Sodium 143 135 - 145 mmol/L Potassium, [...] [facility] ([place]) Blood 04/10/2024 2:30 AM AIRPORT ATTENDANT 04/10/2024 4:05 AM AIRPORT ATTENDANT us Krystal Araujo MD LAB BLOOD ORDERABLES Fi nal Result [facility] ([place]) 1 [facility] [place] [address] * (ABNORMAL) eGFR (04/10/2024 12:05 AM AIRPORT ATTENDANT) eGFR 59(L) >=60 mL/min/1. 73 m2 Comment: [...] reviewed 2021. Blood 04/10/2024 12:0 5 AM AIRPORT ATTENDANT 04/10/2024 12:14 AM AIRPORT ATTENDANT us Krystal Araujo MD LAB BLOOD ORDERABLES Fi nal Result [facility] ([place]) 1 [facility] [place] [address] * (ABNORMAL) CBC without differential (04/10/2024 12:05 AM AIRPORT ATTENDANT) Pathologist [facility] WBC 10.9(H) 3.8 - 9.9 K/cumm Hgb 13.4 13.0 - 17.5 g/dL [facility] ([place]) Hct 41.2 38.9 - [...] ([place]) Blood 04/10/2024 12:0 5 AM AIRPORT ATTENDANT 04/10/2024 12:14 AM AIRPORT ATTENDANT Narrative [facility] ([place]) - 04/10/2024 12:36 AM AIRPORT ATTENDANT While on enoxaparin us Krystal Araujo MD LAB BLOOD ORDERABLES Fi nal Result [facility] ([place]) 1 [facility] [place] [address] * Creatinine (04/10/2024 12:05 AM AIRPORT ATTENDANT) Creatinine 1.29 0.80 - 1.30 mg/dL Blood 04/10/2024 12:0 5 AM AIRPORT ATTENDANT 04/10/2024 12:14 AM AIRPORT ATTENDANT Narrative [facility] ([place]) - 04/10/2024 12:56 AM AIRPORT ATTENDANT While on enoxaparin Krystal Araujo MD LAB BLOOD ORDERABLES Fi nal Result [facility] ([place]) 1 [facility] [employer] [place] [employer] [place] [address] * (ABNORMAL) POCT glucose (04/09/2024 8:55 PM AIRPORT ATTENDANT) Glucose, POC 200(H) 70 - 199 mg/dL Blood 04/09/2024 8:55 PM AIRPORT ATTENDANT 04/09/2024 8:55 PM AIRPORT ATTENDANT us Marco Antonio Niño MD LAB POCT ORDERABLES - DEVICE Fi nal Result Performing Organization Address [facility]/ZIP Co de Phone Number [facility] ([place]) 1 [facility] [place] [employer] [place] [address] * POCT glucose (04/09/2024 5:11 PM AIRPORT ATTENDANT) Glucose, POC 150 70 - 199 mg/dL Blood 04/09/2024 5:11 PM AIRPORT ATTENDANT 04/09/2024 5:11 PM AIRPORT ATTENDANT us Marco Antonio Niño MD LAB POCT ORDERABLES - DEVICE Fi nal Result Performing Organization Address [facility] Co de Phone Number [facility] ([place]) 1 [facility] [place] [employer] [place] [address] * POCT glucose (04/09/2024 11:19 AM AIRPORT ATTENDANT) Glucose, POC 193 70 - 199 mg/dL Blood 04/09/2024 11:1 9 AM AIRPORT ATTENDANT 04/09/2024 11:19 AM AIRPORT ATTENDANT us Marco Antonio Niño MD LAB POCT ORDERABLES - DEVICE Fi nal Result Performing Organization Address [facility] Co de Phone Number [facility] ([place]) 1 [facility] [place] [employer] [place] [address] * POCT glucose (04/09/2024 7:38 AM AIRPORT ATTENDANT) Glucose, POC 142 70 - 199 mg/dL Blood 04/09/2024 7:38 AM AIRPORT ATTENDANT 04/09/2024 7:38 AM AIRPORT ATTENDANT Marco Antonio Niño MD LAB POCT ORDERABLES - DEVICE Fi nal Result Performing Organization Address [facility]/ZIP Co de Phone Number [facility] ([place]) 1 [facility] [place] [employer] [place] [address] * POCT glucose (04/09/2024 2:37 AM AIRPORT ATTENDANT) Glucose, POC 135 70 - 199 mg/dL Blood 04/09/2024 2:37 AM AIRPORT ATTENDANT 04/09/2024 2:37 AM AIRPORT ATTENDANT Marco Antonio Niño MD LAB POCT ORDERABLES - DEVICE Fi nal Result Performing Organization Address [facility] de Phone Number [facility] ([place]) 1 [facility] [place] [employer] [place] [address] * eGFR (04/09/2024 2:15 AM AIRPORT ATTENDANT) eGFR 62 >=60 mL/min/1. 73 m2 Comment: [...] last reviewed 2021. Blood 04/09/2024 2:15 AM AIRPORT ATTENDANT 04/09/2024 3:50 AM AIRPORT ATTENDANT us Krystal Araujo MD LAB BLOOD ORDERABLES Fi nal Result [facility] ([place]) 1 [facility] [place] [address] * (ABNORMAL) Differential, auto (04/09/2024 2:15 AM AIRPORT ATTENDANT) Neutrophil abs 8.5(H) 1.5 - 6.5 K/cumm Imm gran abs 0.2(H) 0.0 - 0.1 K/cumm [facility] ([place]) Lymphocyte abs 1.4 0.8 - 3.3 K/cumm [facility] ([place]) Monocyte abs 0.9(H) 0.2 - 0.8 K/cumm [facility] ([place]) Eosinophil abs 0.1 0.0 - 0.5 K/cumm [facility] ([place]) Basophil abs 0.1 0.0 - 0.1 K/cumm [facility] ([place]) Neutrophil pct 76.0 % [facility] ([place]) Comment: Interpretive Data Percent cell count reference [...] revised on 2017. Blood 04/09/2024 2:15 AM AIRPORT ATTENDANT 04/09/2024 3:48 AM AIRPORT ATTENDANT us Krystal Araujo MD LAB BLOOD ORDERABLES Fi nal Result [facility] ([place]) 1 [facility] [place] [address] * (ABNORMAL) CBC with auto differential (04/09/2024 2:15 AM AIRPORT ATTENDANT) WBC 11.2(H) 3.8 - 9.9 K/cumm Hgb [...] % [facility] ([place]) RDW SD 45.6 35.7 - 48.1 fL [facility] ([place]) NRBC abs 0.00 0.00 - 0.01 K/cumm [facility] ([place]) Blood 04/09/2024 2:15 AM AIRPORT ATTENDANT 04/09/2024 3:48 AM AIRPORT ATTENDANT Krystal Araujo MD LAB BLOOD ORDERABLES Fi nal Result [facility] ([place]) 1 [facility] [place] [employer] [place] [address] * Phosphorus (04/09/2024 2:15 AM AIRPORT ATTENDANT) Phosphorus, pl 2.4 2.3 - 4.5 mg/dL Blood 04/09/2024 2:15 AM AIRPORT ATTENDANT 04/09/2024 3:50 AM AIRPORT ATTENDANT Marco Antonio Niño MD LAB BLOOD ORDERABLES Final Resu lt Performing Organization Address [facility]/ZIP Co de Phone Number [facility] ([place]) 1 [facility] [place] [employer] [place] [address] * Magnesium (04/09/2024 2:15 AM AIRPORT ATTENDANT) Pathologist [facility] Magnesium 2.1 1.4 - 2.5 mg/dL Blood 04/09/2024 2:15 AM AIRPORT ATTENDANT 04/09/2024 3:50 AM AIRPORT ATTENDANT Krystal Araujo MD LAB BLOOD ORDERABLES Fi nal Result [facility] ([place]) 1 [facility] [place] [employer] [place] [address] * Comprehensive metabolic panel (04/09/2024 2:15 AM AIRPORT ATTENDANT) Sodium 142 135 - 145 mmol/L Potassium, pl 3.5 3.3 - 4.9 mmol/L [facility] ([place]) Chloride 105 97 - 110 mmol/L [facility] ([place]) CO2 26 22 - 32 [...] [facility] ([place]) Blood 04/09/2024 2:15 AM AIRPORT ATTENDANT 04/09/2024 3:50 AM AIRPORT ATTENDANT us Krystal Araujo MD LAB BLOOD ORDERABLES Fi nal Result [facility] ([place]) 1 [facility] [place] [address] * (ABNORMAL) POCT glucose (04/08/2024 8:41 PM AIRPORT ATTENDANT) Glucose, POC 216(H) 70 - 199 mg/dL Blood 04/08/2024 8:41 PM AIRPORT ATTENDANT 04/08/2024 8:41 PM AIRPORT ATTENDANT us Marco Antonio Niño MD LAB POCT ORDERABLES - DEVICE Fi nal Result [facility] ([place]) 1 [facility] [place] [employer] [place] [address] * POCT glucose (04/08/2024 4:45 PM AIRPORT ATTENDANT) Glucose, POC 199 70 - 199 mg/dL Blood 04/08/2024 4:45 PM AIRPORT ATTENDANT 04/08/2024 4:45 PM AIRPORT ATTENDANT us Marco Antonio Niño MD LAB POCT ORDERABLES - DEVICE Fi nal Result Performing Organization Address [facility] Co de Phone Number [facility] ([place]) 1 [facility] [place] [employer] [place] [address] * POCT glucose (04/08/2024 11:51 AM AIRPORT ATTENDANT) Glucose, POC 181 70 - 199 mg/dL Blood 04/08/2024 11:5 1 AM AIRPORT ATTENDANT 04/08/2024 11:51 AM AIRPORT ATTENDANT us Marco Antonio Niño MD LAB POCT ORDERABLES - DEVICE Fi nal Result Performing Organization Address [facility]/ZIP Co de Phone Number [facility] ([place]) 1 [facility] [place] [employer] [place] [address] * POCT glucose (04/08/2024 8:41 AM AIRPORT ATTENDANT) Glucose, POC 142 70 - 199 mg/dL Blood 04/08/2024 8:41 AM AIRPORT ATTENDANT 04/08/2024 8:41 AM AIRPORT ATTENDANT us Marco Antonio Niño MD LAB POCT ORDERABLES - DEVICE Fi nal Result Performing Organization Address [facility]/ZIP Co de Phone Number [facility] ([place]) 1 [facility] [place] [employer] [place] [address] * eGFR (04/08/2024 3:00 AM AIRPORT ATTENDANT) eGFR 60 >=60 mL/min/1. 73 m2 Comment: [...] last reviewed 2021. Blood 04/08/2024 3:00 AM AIRPORT ATTENDANT 04/08/2024 4:01 AM AIRPORT ATTENDANT us Krystal Araujo MD LAB BLOOD ORDERABLES Fi nal Result [facility] ([place]) 1 [facility] [place] [address] * (ABNORMAL) Differential, auto (04/08/2024 3:00 AM AIRPORT ATTENDANT) Pathologist [facility] Neutrophil abs 8.6(H) 1.5 - 6.5 K/cumm [...] revised on 2017. Blood 04/08/2024 3:00 AM AIRPORT ATTENDANT 04/08/2024 3:57 AM AIRPORT ATTENDANT us Ekanga Tuesday Petters MD LAB BLOOD ORDERABLES Fi nal Result [facility] ([place]) 1 [facility] [place] [address] * (ABNORMAL) CBC with auto differential (04/08/2024 3:00 AM AIRPORT ATTENDANT) WBC 11.2(H) 3.8 - 9.9 K/cumm Hgb [...] [facility] ([place]) Blood 04/08/2024 3:00 AM AIRPORT ATTENDANT 04/08/2024 3:57 AM AIRPORT ATTENDANT us Krystal Araujo MD LAB BLOOD ORDERABLES Fi nal Result [facility] ([place]) 1 [facility] [place] [address] * Phosphorus (04/08/2024 3:00 AM AIRPORT ATTENDANT) Phosphorus, pl 2.3 2.3 - 4.5 mg/dL Blood 04/08/2024 3:00 AM AIRPORT ATTENDANT 04/08/2024 4:01 AM AIRPORT ATTENDANT us Marco Antonio Niño MD LAB BLOOD ORDERABLES Final Resu lt [facility] ([place]) 1 [facility] [place] [employer] [place] [address] * Magnesium (04/08/2024 3:00 AM AIRPORT ATTENDANT) Magnesium 1.8 1.4 - 2.5 mg/dL Blood 04/08/2024 3:00 AM AIRPORT ATTENDANT 04/08/2024 4:01 AM AIRPORT ATTENDANT us Krystal Araujo MD LAB BLOOD ORDERABLES Fi nal Result Performing Organization Address [facility] Co de Phone Number [facility]A [facility] ([place]) 1 [facility] [place] [address] * (ABNORMAL) Comprehensive metabolic panel (04/08/2024 3:00 AM AIRPORT ATTENDANT) Sodium 143 135 - 145 mmol/L Potassium, pl 3.5 3.3 - 4.9 mmol/L [facility] ([place]) Chloride 106 97 - 110 mmol/L [facility] ([place]) CO2 27 22 - 32 mmol/L [facility] ([place]) Anion gap 10 2 - 15 mmol/L [facility] ([place]) BUN 22 6 - 25 mg/dL [facility] ([place]) Creatinine 1.28 0.80 - 1.30 mg/dL [facility] ([place]) Glucose 138 70 - 199 mg/dL [facility] ([place]) Comment: Interpretive Data Fasting [...] [facility] ([place]) Blood 04/08/2024 3:00 AM AIRPORT ATTENDANT 04/08/2024 4:01 AM AIRPORT ATTENDANT Krystal Araujo MD LAB BLOOD ORDERABLES Fi nal Result Performing Organization Address [facility]/ZIP Co de Phone Number [facility] ([place]) 1 [facility] [place] [address] * POCT glucose (04/08/2024 1:58 AM AIRPORT ATTENDANT) Glucose, POC 140 70 - 199 mg/dL Blood 04/08/2024 1:58 AM AIRPORT ATTENDANT 04/08/2024 1:58 AM AIRPORT ATTENDANT Marco Antonio Niño MD LAB POCT ORDERABLES - DEVICE Fi nal Result Performing Organization Address [facility]/ZIP Co de Phone Number [facility] ([place]) 1 [facility] [place] [employer] [place] [address] * (ABNORMAL) POCT glucose (04/07/2024 8:27 PM AIRPORT ATTENDANT) Glucose, POC 218(H) 70 - 199 mg/dL Blood 04/07/2024 8:27 PM AIRPORT ATTENDANT 04/07/2024 8:27 PM AIRPORT ATTENDANT Marco Antonio Niño MD LAB POCT ORDERABLES - DEVICE Fi nal Result Performing Organization Address [facility]/ZIP Co de Phone Number [facility]A [facility] ([place]) 1 [facility] [place] [employer] [place] [address] * POCT glucose (04/07/2024 5:01 PM AIRPORT ATTENDANT) Pathologist [facility] Glucose, POC 193 70 - 199 mg/dL Blood 04/07/2024 5:01 PM AIRPORT ATTENDANT 04/07/2024 5:01 PM AIRPORT ATTENDANT Marco Antonio Niño MD LAB POCT ORDERABLES - DEVICE Fi nal Result Performing Organization Address [facility] Co de Phone Number [facility]ETA [facility] ([place]) 1 [facility] [place] [employer] [place] [address] * (ABNORMAL) POCT glucose (04/07/2024 11:47 AM AIRPORT ATTENDANT) [facility] Glucose, POC 231(H) 70 - 199 mg/dL Blood 04/07/2024 11:4 7 AM AIRPORT ATTENDANT 04/07/2024 11:47 AM AIRPORT ATTENDANT Marco Antonio Niño MD LAB POCT ORDERABLES - DEVICE Fi nal Result Performing Organization Address [facility] Co de Phone Number JULIETA [facility] [place]) 1 [facility] [place] [employer] [place] [address] * eGFR (04/07/2024 9:18 AM AIRPORT ATTENDANT) Pathologist [facility] eGFR 60 >=60 mL/min/1. 73 m2 Comment: [...] last reviewed 2021. Blood 04/07/2024 9:18 AM AIRPORT ATTENDANT 04/07/2024 9:56 AM AIRPORT ATTENDANT us Krystal Araujo MD LAB BLOOD ORDERABLES Fi nal Result [facility] ([place]) 1 [facility] [place] [address] * (ABNORMAL) Differential, auto (04/07/2024 9:18 AM AIRPORT ATTENDANT) Neutrophil abs 8.8(H) 1.5 - 6.5 K/cumm [...] revised on 2017. Monocyte pct 7.2 % [facility] ([place]) Comment: Interpretive Data Percent [...] revised on 2017. Basophil pct 0.4 % [facility] ([place]) Comment: Interpretive Data Percent cell count reference ranges are not reported, since discordance with absolute values may lead to misinterpretation of CBC data. Current Interpretive Data was last revised on 2017. Blood 04/07/2024 9:18 AM AIRPORT ATTENDANT 04/07/2024 9:56 AM AIRPORT ATTENDANT us Krystal Araujo MD LAB BLOOD ORDERABLES Fi nal Result [facility] ([place]) 1 [facility] [place] [address] * (ABNORMAL) CBC with auto differential (04/07/2024 9:18 AM AIRPORT ATTENDANT) WBC 11.2(H) 3.8 - 9.9 K/cumm Hgb 13.6 13.0 - 17.5 g/dL [facility] ([place]) Hct 42.4 38.9 - 50.3 % [facility] ([place]) Plt 222 150 - 400 K/cumm [facility] ([place]) MPV 10.1 9.1 - 12.3 fL [facility] ([place]) RBC 4.59 4.30 - 5.80 M/cumm [facility] ([place]) MCV 92.4 81.3 - 96.4 fL [facility] ([place]) MCH 29.6 27.1 - 33.3 pg [facility] ([place]) MCHC 32.1(L) 32.3 - 35.7 g/dL [facility] ([place]) RDW CV 13.6 11.1 - 14.9 % [facility] ([place]) RDW SD 46.0 35.7 - 48.1 fL [facility] ([place]) NRBC abs 0.00 0.00 - 0.01 K/cumm [facility] ([place]) Blood 04/07/2024 9:18 AM AIRPORT ATTENDANT 04/07/2024 9:56 AM AIRPORT ATTENDANT Krystal Araujo MD LAB BLOOD ORDERABLES Fi nal Result Performing Organization Address [facility]/ZIP Co de Phone Number [facility]A [facility] ([place]) 1 [facility] [employer] [place] [employer] [place] [address] * Phosphorus (04/07/2024 9:18 AM AIRPORT ATTENDANT) Phosphorus, pl 2.4 2.3 - 4.5 mg/dL Blood 04/07/2024 9:18 AM AIRPORT ATTENDANT 04/07/2024 9:56 AM AIRPORT ATTENDANT Marco Antonio Niño MD LAB BLOOD ORDERABLES Final Resu lt Performing Organization Address [facility]/ZIP Co de Phone Number [facility]A [facility] ([place]) 1 [facility] [place] [employer] [place] [address] * Magnesium (04/07/2024 9:18 AM AIRPORT ATTENDANT) Magnesium 2.0 1.4 - 2.5 mg/dL Blood 04/07/2024 9:18 AM AIRPORT ATTENDANT 04/07/2024 9:56 AM AIRPORT ATTENDANT Krystal Araujo MD LAB BLOOD ORDERABLES Fi nal Result [facility] ([place]) 1 [facility] [place] [address] * (ABNORMAL) Comprehensive metabolic panel (04/07/2024 9:18 AM AIRPORT ATTENDANT) Sodium 144 135 - 145 mmol/L Potassium, [...] [facility] ([place]) Blood 04/07/2024 9:18 AM AIRPORT ATTENDANT 04/07/2024 9:56 AM AIRPORT ATTENDANT us Krystal Araujo MD LAB BLOOD ORDERABLES Fi nal Result [facility] ([place]) 1 [facility] [place] [employer] [place] [address] * POCT glucose (04/07/2024 8:24 AM AIRPORT ATTENDANT) Glucose, POC 178 70 - 199 mg/dL Blood 04/07/2024 8:24 AM AIRPORT ATTENDANT 04/07/2024 8:24 AM AIRPORT ATTENDANT us Marco Antonio Niño MD LAB POCT ORDERABLES - DEVICE Fi nal Result Performing Organization Address [facility] Co de Phone Number [facility] ([place]) 1 [facility] [place] [employer] [place] [address] * (ABNORMAL) POCT glucose (04/06/2024 8:32 PM AIRPORT ATTENDANT) Glucose, POC 279(H) 70 - 199 mg/dL Blood 04/06/2024 8:32 PM AIRPORT ATTENDANT 04/06/2024 8:32 PM AIRPORT ATTENDANT us Marco Antonio Niño MD LAB POCT ORDERABLES - DEVICE Fi nal Result Performing Organization Address [facility] Co de Phone Number [facility] ([place]) 1 [facility] [place] [employer] [place] [address] * (ABNORMAL) POCT glucose (04/06/2024 5:18 PM AIRPORT ATTENDANT) Glucose, POC 236(H) 70 - 199 mg/dL Blood 04/06/2024 5:18 PM AIRPORT ATTENDANT 04/06/2024 5:18 PM AIRPORT ATTENDANT Marco Antonio Niño MD LAB POCT ORDERABLES - DEVICE Fi nal Result Performing Organization Address [facility]/ZIP Co de Phone Number [facility] ([place]) 1 [facility] [place] [address] * (ABNORMAL) Urinalysis reflex to microscopic and culture Urine (04/06/2024 4:18 PM AIRPORT ATTENDANT) Color, ur Yellow Yellow Clarity, ur Turbid(A) [...] tendency for uric acid stone formation. Source: [facility] Current Interpretive Data was last revised on 2017 Protein, ur ql Trace Negative [facility] ([place]) Glucose, ur ql 1+(A) Negative [facility] ([place]) Ketones, ur Negative Negative [facility] ([place]) Bilirubin, ur Negative Negative [facility] [...] [facility] ([place]) Urine 04/06/2024 4:18 PM AIRPORT ATTENDANT 04/06/2024 4:24 PM AIRPORT ATTENDANT us Krystal Araujo MD LAB MICROBIOLOGY - [facility] ORDERABLES Final Result [facility] ([place]) 1 [facility] [place] [address] * XR Foot Left 3 or More Views (04/06/2024 3:14 PM AIRPORT ATTENDANT) Anatomical Region Laterality Modality Lower Extremities, Foot Left Computed Radiography 04/06/2024 5:50 PM AIRPORT ATTENDANT Narrative 04/06/2024 5:52 PM AIRPORT ATTENDANT EXAM DESCRIPTION: XR FOOT LEFT 3 OR [...] PM T: ??04/06/2024 5:52 PM Report ID: [id number] Reading Location: ??[id number] Procedure Note Xavi Driscoll MD - 04/06/2024 [...] Xavi Driscoll M.D. AR: REILLY Report ID: [id number] Reading Location: [id number] us Marco Antonio Niño MD IMG XR PROCEDURES Final Result * XR Ankle Left 3 or More Views (04/06/2024 3:14 PM AIRPORT ATTENDANT) Anatomical Region Laterality Modality Lower Extremities, Ankle Left Compute d Radiography 04/06/2024 5:47 PM AIRPORT ATTENDANT Narrative 04/06/2024 5:49 PM AIRPORT ATTENDANT EXAM DESCRIPTION: XR ANKLE LEFT 3 OR [...] PM T: ??04/06/2024 5:49 PM Report ID: [id number] Reading Location: ??[id number] Procedure Note Xavi Driscoll MD - 04/06/2024 [...] Xavi Driscoll M.D. AR: REILLY Report ID: [id number] Reading Location: [id number] Marco Antonio Niño MD IMG XR PROCEDURES Final Result * (ABNORMAL) POCT glucose (04/06/2024 12:05 PM AIRPORT ATTENDANT) Glucose, POC 207(H) 70 - 199 mg/dL Blood 04/06/2024 12:0 5 PM AIRPORT ATTENDANT 04/06/2024 12:05 PM AIRPORT ATTENDANT Marco Antonio Niño MD LAB POCT ORDERABLES - DEVICE Fi nal Result [facility]A [facility] ([place]) 1 [facility] [employer] [place] [address] * Blood gas, venous (04/06/2024 10:20 AM AIRPORT ATTENDANT) [facility] pH, Venous 7.42 7.32 - 7.43 PCO2, Venous 45 40 - 50 mmHg [facility] ([place]) PO2, Venous 64 mmHg [facility] ([place]) HCO3 Venous, Calculated 28 20 - 30 mmol/L [facility] ([place]) BE, venous 4 mmol/L [facility] ([place]) Comment: Interpretive Data No Reference Range Established Current Interpretive Data was last revised on 2017. Blood 04/06/2024 10:2 0 AM AIRPORT ATTENDANT 04/06/2024 10:27 AM AIRPORT ATTENDANT Marco Antonio Niño MD LAB BLOOD ORDERABLES Final Resu lt Performing Organization Address [facility] de Phone Number JULIETA GUERRERO ([place]) [address] [place] [address] * POCT glucose (04/06/2024 8:26 AM AIRPORT ATTENDANT) [facility] Glucose, POC 168 70 - 199 mg/dL Blood 04/06/2024 8:26 AM AIRPORT ATTENDANT 04/06/2024 8:26 AM AIRPORT ATTENDANT Marco Antonio Niño MD LAB POCT ORDERABLES - DEVICE Fi nal Result Performing Organization Address [facility] de Phone Number JULIETA GUERRERO ([place]) [address] [place] [address] * (ABNORMAL) eGFR (04/06/2024 2:21 AM AIRPORT ATTENDANT) [facility] eGFR 56(L) >=60 mL/min/1. 73 m2 Comment: [...] last reviewed 2021. Blood 04/06/2024 2:21 AM AIRPORT ATTENDANT 04/06/2024 3:51 AM AIRPORT ATTENDANT us Krystal Araujo MD LAB BLOOD ORDERABLES Fi nal Result [facility]A [facility] ([place]) 1 [facility] [place] [address] * (ABNORMAL) Differential, auto (04/06/2024 2:21 AM AIRPORT ATTENDANT) Neutrophil abs 8.3(H) 1.5 - 6.5 K/cumm [...] revised on 2017. Blood 04/06/2024 2:21 AM AIRPORT ATTENDANT 04/06/2024 3:50 AM AIRPORT ATTENDANT us Krystal Araujo MD LAB BLOOD ORDERABLES Fi nal Result JULIETA GUERRERO ([place]) 1 [facility] [place] [address] * (ABNORMAL) CBC with auto differential (04/06/2024 2:21 AM AIRPORT ATTENDANT) WBC 11.0(H) 3.8 - 9.9 K/cumm Hgb [...] [facility] ([place]) Blood 04/06/2024 2:21 AM AIRPORT ATTENDANT 04/06/2024 3:50 AM AIRPORT ATTENDANT Krystal Araujo MD LAB BLOOD ORDERABLES Fi nal Result Performing Organization Address [facility]/ZIP Co de Phone Number JULIETA GUERRERO ([place]) 1 [facility] [employer] [place] [address] * Magnesium (04/06/2024 2:21 AM AIRPORT ATTENDANT) Magnesium 2.2 1.4 - 2.5 mg/dL Blood 04/06/2024 2:21 AM AIRPORT ATTENDANT 04/06/2024 3:51 AM AIRPORT ATTENDANT Krystal Araujo MD LAB BLOOD ORDERABLES Fi nal Result JULIETA GUERRERO ([place]) 1 [facility] [place] [address] * (ABNORMAL) Comprehensive metabolic panel (04/06/2024 2:21 AM AIRPORT ATTENDANT) Sodium 143 135 - 145 mmol/L Potassium, [...] [facility] ([place]) Blood 04/06/2024 2:21 AM AIRPORT ATTENDANT 04/06/2024 3:51 AM AIRPORT ATTENDANT us Krystal Araujo MD LAB BLOOD ORDERABLES Fi nal Result [facility] ([place]) 1 [facility] [place] [address] * POCT glucose (04/06/2024 1:58 AM AIRPORT ATTENDANT) Glucose, POC 186 70 - 199 mg/dL Blood 04/06/2024 1:58 AM AIRPORT ATTENDANT 04/06/2024 1:58 AM AIRPORT ATTENDANT Marco Antonio Niño MD LAB POCT ORDERABLES - DEVICE Fi nal Result Performing Organization Address [facility]/ZIP Co de Phone Number JULIETA GUERRERO ([place]) 1 [facility] [place] [address] * (ABNORMAL) POCT glucose (04/05/2024 8:47 PM AIRPORT ATTENDANT) Glucose, POC 200(H) 70 - 199 mg/dL Blood 04/05/2024 8:47 PM AIRPORT ATTENDANT 04/05/2024 8:47 PM AIRPORT ATTENDANT Marco Antonio Niño MD LAB POCT ORDERABLES - DEVICE Fi nal Result Performing Organization Address [facility]/ZIP Co de Phone Number JULIETA GUERRERO ([place]) 1 [facility] [place] [address] * POCT glucose (04/05/2024 5:20 PM AIRPORT ATTENDANT) Glucose, POC 174 70 - 199 mg/dL Blood 04/05/2024 5:20 PM AIRPORT ATTENDANT 04/05/2024 5:20 PM AIRPORT ATTENDANT Marco Antonio Niño MD LAB POCT ORDERABLES - DEVICE Fi nal Result Performing Organization Address [facility]/ZIP Co de Phone Number JULIETA GUERRERO ([place]) 1 [facility] [place] [address] * ECG 12 lead (04/05/2024 2:40 PM AIRPORT ATTENDANT) 04/05/2024 2:40 PM AIRPORT ATTENDANT Narrative [facility] - 04/05/2024 3:45 PM AIRPORT ATTENDANT Vent Rate: 67 bpm RR Interval: 890 msec NH Interval: 134 msec QRS Duration: 102 msec QT Interval: 446 msec QTC Interval: 461 msec P-R-T [place]: -49 - -22 - 97 degrees IMPRESSION: SINUS RHYTHM BORDERLINE LEFT AXIS DEVIATION [QRS AXIS < -20] POSSIBLE LEFT VENTRICULAR HYPERTROPHY [VOLTAGE CRITERIA PLUS LAE OR QRS WIDENING] MODERATE T-WAVE ABNORMALITY, CONSIDER LATERAL ISCHEMIA [-0.1+ mV T WAVE IN I/aVL/V5/V6] ABNORMAL ECG NO CHANGE FROM PREVIOUS TRACING NOTED Electronically Signed By: Juarez Thornton MD us Krystal Araujo MD ECG ORDERABLES Final R esult [facility] * POCT glucose (04/05/2024 1:26 PM AIRPORT ATTENDANT) [facility] Glucose, POC 159 70 - 199 mg/dL Blood 04/05/2024 1:26 PM AIRPORT ATTENDANT 04/05/2024 1:26 PM AIRPORT ATTENDANT us Marco Antonio Niño MD LAB POCT ORDERABLES - DEVICE Fi nal Result Performing Organization Address [facility]/ZIP Co de Phone Number JULIETA GUERRERO ([address] [place] [address] * NM MPI SPECT (Rest and/or Stress) Multiple Studies (04/05/2024 1:22 PM AIRPORT ATTENDANT) Anatomical Region Laterality Modality Body N/A Nuclear Medicine 04/05/2024 1:30 PM AIRPORT ATTENDANT Narrative 04/05/2024 1:36 PM AIRPORT ATTENDANT EXAM DESCRIPTION: ?? NM MPI SPECT (REST [...] PM T: ??04/05/2024 1:36 PM Report ID: [id number] Reading Location: ??[id number] Procedure Note Ovidio Rae MD - 04/05/2024 [...] Ovidio Rae M.D. LB: LB Report ID: [id number] Reading Location: [id number] us Marco Antonio Niño MD [facility] PROCED[facility] Final Result * Stress Test for Myocardial Perfusion (04/05/2024 1:22 PM AIRPORT ATTENDANT) Anatomical Region Laterality Modality Nuclear Medicine 04/05/2024 11:4 5 AM AIRPORT ATTENDANT Narrative 04/05/2024 4:12 PM AIRPORT ATTENDANT [address] [address] [employer] Report Patient Name: TANIA VIZCARRA R : 1950 Study Date: 04/05/2024 11:45:00 AM Gender: M Tech: ??Location: [id number] Ref Provider: MARCO ANTONIO NIÑO Height(Cm): 178 [...] By: Dr Devin Linton 04/05/2024 4:11:19 PM AIRPORT ATTENDANT Procedure Note Devin Linton MD - 04/05/[address] [address] [employer] Report Patient Name: TANIA VIZCARRA R : 1950 Study Date: 04/05/2024 11:45:00 AM Gender: M Tech: Location: [place] [address] Ref Provider: MARCO ANTONIO NIÑO Height(Cm): 178 [...] By: Dr Devin Linton 04/05/2024 4:11:19 PM AIRPORT ATTENDANT Marco Antonio Niño MD CV STRESS PROCEDURES Final Resu lt * (ABNORMAL) POCT glucose (04/05/2024 8:33 AM AIRPORT ATTENDANT) Pathologist [facility] Glucose, POC 200(H) 70 - 199 mg/dL Blood 04/05/2024 8:33 AM AIRPORT ATTENDANT 04/05/2024 8:33 AM AIRPORT ATTENDANT Marco Antonio Niño MD LAB POCT ORDERABLES - DEVICE Fi nal Result [facility] [place]) 1 [facility] [place] [address] * (ABNORMAL) eGFR (04/05/2024 6:48 AM AIRPORT ATTENDANT) Pathologist [facility] eGFR 51(L) >=60 mL/min/1. 73 m2 Comment: [...] data was last reviewed 2021. Blood 04/05/2024 6:4 8 AM AIRPORT ATTENDANT 04/05/2024 6:52 AM AIRPORT ATTENDANT us Krystal Araujo MD LAB BLOOD ORDERABLES [facility] Result JULIETA [facility] ([place]) 1 [facility] [place] Department of [place], [place] [id number] * (ABNORMAL) Differential, auto (04/05/2024 6:48 AM AIRPORT ATTENDANT) Neutrophil abs 8.2(H) 1.5 - 6.5 K/cumm [...] revised on 2017. Blood 04/05/2024 6:48 AM AIRPORT ATTENDANT 04/05/2024 6:52 AM AIRPORT ATTENDANT us Krystal Araujo MD LAB BLOOD ORDERABLES Fi nal Result JULIETA YOLANDA ([place]) 1 [facility] [place], [place] [id number] * (ABNORMAL) CBC with auto differential (04/05/2024 6:48 AM AIRPORT ATTENDANT) WBC 10.8(H) 3.8 - 9.9 K/cumm Hgb [...] % [facility] ([place]) RDW SD 45.1 35.7 - 48.1 fL [facility] ([place]) NRBC abs 0.00 0.00 - 0.01 K/cumm [facility] ([place]) Blood 04/05/2024 6:48 AM AIRPORT ATTENDANT 04/05/2024 6:52 AM AIRPORT ATTENDANT Krystal Araujo MD LAB BLOOD ORDERABLES Fi nal Result Performing Organization Address [facility] Co de Phone Number JULIETA GUERRERO ([place]) 1 [facility] [employer] [place] [address] * Magnesium (04/05/2024 6:48 AM AIRPORT ATTENDANT) Magnesium 1.6 1.4 - 2.5 mg/dL Blood 04/05/2024 6:48 AM AIRPORT ATTENDANT 04/05/2024 6:52 AM AIRPORT ATTENDANT Krystal Araujo MD LAB BLOOD ORDERABLES Fi nal Result JULIETA GUERRERO ([place]) 1 [facility] [place] [address] * (ABNORMAL) Comprehensive metabolic panel (04/05/2024 6:48 AM AIRPORT ATTENDANT) Sodium 142 135 - 145 mmol/L Potassium, [...] [facility] ([place]) Blood 04/05/2024 6:48 AM AIRPORT ATTENDANT 04/05/2024 6:52 AM AIRPORT ATTENDANT us Krystal Araujo MD LAB BLOOD ORDERABLES Fi nal Result [facility] ([place]) 1 [facility] [place] [address] * POCT glucose (04/05/2024 2:22 AM AIRPORT ATTENDANT) Glucose, POC 176 70 - 199 mg/dL Blood 04/05/2024 2:22 AM AIRPORT ATTENDANT 04/05/2024 2:22 AM AIRPORT ATTENDANT us Ingrid Henry MD LAB POCT ORDERABLES - DEV ICE Final Result JULIETA GUERRERO ([place]) 1 [facility] [employer] [place] [address] * (ABNORMAL) Troponin T high-sensitivity 4-hour (04/04/2024 11:16 PM AIRPORT ATTENDANT) Trop T hs 30(H) <=22 ng/L Comment: Interpretive Data For further hscTnT resources including the diagnostic algorithm and an aid in interpretation, copy and paste this link: https://nrl.testcatalog.org/show/hsTrop Current Interpretive Data last revised 2020. Trop T hs delta See Comment ng/L CE RNSANDRA GUERRERO ([place]) Comment:Inappropriate collec tion time to report a delta. Trop T hs pct delta See Comment % CERJUNAID GUERRERO ([place]) Comment:Inappropriate collec tion time to report a delta. Trop T hs interp See Comment C JACINTO GUERRERO ([place]) Comment:Inappropriate collec tion time to report a delta. Blood 04/04/2024 11:1 6 PM AIRPORT ATTENDANT 04/04/2024 11:26 PM AIRPORT ATTENDANT us Nikolas Doty MD LAB BLOOD ORDERABLES Final Res ult JULIETA GUERRERO ([place]) 1 [facility] [place] [employer] [address] * (ABNORMAL) POCT glucose (04/04/2024 9:25 PM AIRPORT ATTENDANT) Glucose, POC 237(H) 70 - 199 mg/dL Blood 04/04/2024 9:25 PM AIRPORT ATTENDANT 04/04/2024 9:25 PM AIRPORT ATTENDANT us Ingrid Henry MD LAB POCT ORDERABLES - DEV ICE Final Result Performing Organization Address [facility]/ZIP Co de Phone Number JULIETA GUERRERO ([place]) 1 [facility] [place] [place] [address] * (ABNORMAL) Troponin T high-sensitivity 2-hour (04/04/2024 7:30 PM AIRPORT ATTENDANT) Trop T hs 31(H) <=22 ng/L Comment: Interpretive Data For further hscTnT resources including the diagnostic algorithm and an aid in interpretation, copy and paste this link: https://nrl.testcatalog.org/show/hsTrop Current Interpretive Data last revised 2020. Trop T hs delta -2 ng/L [facility] ([place]) Trop T hs interp Insignificant [facility] ([place]) Blood 04/04/2024 7:30 PM AIRPORT ATTENDANT 04/04/2024 7:33 PM AIRPORT ATTENDANT us Nikolas Doty MD LAB BLOOD ORDERABLES Final Res ult JULIETA GUERRERO ([place]) 1 [facility] [place] [address] * (ABNORMAL) eGFR (04/04/2024 7:30 PM AIRPORT ATTENDANT) eGFR 42(L) >=60 mL/min/1. 73 m2 Comment: [...] last reviewed 2021. Blood 04/04/2024 7:30 PM AIRPORT ATTENDANT 04/04/2024 7:33 PM AIRPORT ATTENDANT us Nikolas Doty MD LAB BLOOD ORDERABLES Final Res ult [facility] ([place]) 1 [facility] [place] [address] * (ABNORMAL) CBC without differential (04/04/2024 7:30 PM AIRPORT ATTENDANT) WBC 11.8(H) 3.8 - 9.9 K/cumm Hgb 12.9(L) 13.0 - 17.5 g/dL [facility] ([place]) Hct 39.2 38.9 - 50.3 % [facility] ([place]) Plt 215 150 - 400 K/cumm [facility] ([place]) MPV 10.1 9.1 - 12.3 fL [facility] ([place]) RBC 4.29(L) 4.30 - 5.80 M/cumm [facility] ([place]) MCV 91.4 81.3 - 96.4 fL [facility] ([place]) MCH 30.1 27.1 - 33.3 pg [facility] ([place]) MCHC 32.9 32.3 - 35.7 g/dL [facility] ([place]) RDW CV 13.7 11.1 - 14.9 % [facility] ([place]) RDW SD 45.4 35.7 - 48.1 fL [facility] ([place]) NRBC abs 0.00 0.00 - 0.01 K/cumm [facility] ([place]) Blood 04/04/2024 7:30 PM AIRPORT ATTENDANT 04/04/2024 7:33 PM AIRPORT ATTENDANT Narrative JULIETA GUERRERO ([place]) - 04/04/2024 7:35 PM AIRPORT ATTENDANT Baseline prior to enoxaparin initiation. Nikolas Doty MD LAB BLOOD ORDERABLES Final Res ult JULIETA GUERRERO ([place]) 1 [facility] [place] [address] * (ABNORMAL) Creatinine (04/04/2024 7:30 PM AIRPORT ATTENDANT) Creatinine 1.71(H) 0.80 - 1.30 mg/dL Blood 04/04/2024 7:30 PM AIRPORT ATTENDANT 04/04/2024 7:33 PM AIRPORT ATTENDANT Narrative JULIETA GUERRERO ([place]) - 04/04/2024 8:05 PM AIRPORT ATTENDANT Baseline prior to enoxaparin initiation. Nikolas Doty MD LAB BLOOD ORDERABLES Final Res ult Performing Organization Address [facility]/ZIP Co de Phone Number JULIETA GUERRERO ([place]) 1 [facility] [place] [address] * (ABNORMAL) POCT glucose (04/04/2024 7:25 PM AIRPORT ATTENDANT) Glucose, POC 214(H) 70 - 199 mg/dL Blood 04/04/2024 7:25 PM AIRPORT ATTENDANT 04/04/2024 7:25 PM AIRPORT ATTENDANT Ingrid Henry MD LAB POCT ORDERABLES - DEV ICE Final Result Performing Organization Address [facility]/ZIP Co de Phone Number JULIETA GUERRERO ([place]) 1 [facility] [place] [place] [address] * (ABNORMAL) Troponin T high-sensitivity series (baseline, 2hr, 4hr, 6hr) (04/04/2024 5:57 PM AIRPORT ATTENDANT) Trop T hs 33(H) <=22 ng/L Comment: Interpretive Data For further hscTnT resources including the diagnostic algorithm and an aid in interpretation, copy and paste this link: https://nrl.testcatalog.org/show/hsTrop Current Interpretive Data last revised 2020. Blood 04/04/2024 5:57 PM AIRPORT ATTENDANT 04/04/2024 6:03 PM AIRPORT ATTENDANT us Nikolas Doty MD LAB BLOOD ORDERABLES Final Res ult [facility] ([place]) 1 [facility] [place] [address] * (ABNORMAL) eGFR (04/04/2024 5:57 PM AIRPORT ATTENDANT) Pathologist [facility] eGFR 40(L) >=60 mL/min/1. 73 m2 Comment: [...] last reviewed 2021. Blood 04/04/2024 5:57 PM AIRPORT ATTENDANT 04/04/2024 6:03 PM AIRPORT ATTENDANT us Nikolas Doty MD LAB BLOOD ORDERABLES Final Res ult [facility] ([place]) 1 [facility] [place] [address] * (ABNORMAL) Differential, auto (04/04/2024 5:57 PM AIRPORT ATTENDANT) Neutrophil abs 9.7(H) 1.5 - 6.5 K/cumm [...] revised on 2017. Eosinophil pct 1.0 % MARTINEZ GUERRERO ([place]) Comment: Interpretive Data Percent cell count reference ranges are not reported, since discordance with absolute values may lead to misinterpretation of CBC data. Current Interpretive Data was last revised on 2017. Basophil pct 0.4 % JULIETA GUERRERO ([place]) Comment: Interpretive Data Percent cell count reference ranges are not reported, since discordance with absolute values may lead to misinterpretation of CBC data. Current Interpretive Data was last revised on 2017. Blood 04/04/2024 5:57 PM AIRPORT ATTENDANT 04/04/2024 6:03 PM AIRPORT ATTENDANT us Nikolas Doty MD LAB BLOOD ORDERABLES Final Res ult JULIETA GUERRERO ([place]) 1 [facility] [place] [address] * (ABNORMAL) Pro B-type natriuretic peptide (04/04/2024 5:57 PM AIRPORT ATTENDANT) NT-proBNP 362(H) <=300 pg/mL Comment: Interpretive Comments: [...] Revised Date: 2017. Blood 04/04/2024 5:57 PM AIRPORT ATTENDANT 04/04/2024 6:32 PM AIRPORT ATTENDANT us José Miguel Osorio MD LAB BLOOD ORDERABLES Final Resul t [facility]A [facility] ([place]) 1 [facility] [place] [address] * (ABNORMAL) CBC with auto differential (04/04/2024 5:57 PM AIRPORT ATTENDANT) WBC 12.7(H) 3.8 - 9.9 K/cumm Hgb 14.1 13.0 - 17.5 g/dL [facility] ([place]) Hct 42.2 38.9 - 50.3 % [facility] ([place]) Plt 228 150 - 400 K/cumm [facility] ([place]) MPV 10.0 9.1 - 12.3 fL [facility] ([place]) RBC 4.62 4.30 - 5.80 M/cumm [facility] ([place]) MCV 91.3 81.3 - [...] [place]) Blood (Blood, Venous) 04/04/2024 5:57 PM AIRPORT ATTENDANT 04/04/2024 6:03 PM AIRPORT ATTENDANT Nikolas Doty MD LAB BLOOD ORDERABLES Final Res ult Performing Organization Address [facility] Co de Phone Number JULIETA GUERRERO ([place]) 1 [facility] [place] [address] * aPTT (04/04/2024 5:57 PM AIRPORT ATTENDANT) aPTT 33 28 - 38 sec JULIETA GUERRERO ([place]) Comment: Interpretive Data Heparin therapeutic range: 66.0 - 100.0 seconds. Range based on correlation with therapeutic heparin activity range of 0.3 - 0.7 Units/mL. Current interpretive data was last revised on 2023. Blood 04/04/2024 5:57 PM AIRPORT ATTENDANT 04/04/2024 7:20 PM AIRPORT ATTENDANT Narrative JULIETA GUERRERO ([place]) - 04/04/2024 7:47 PM AIRPORT ATTENDANT Baseline prior to enoxaparin initiation. Nikolas Doty MD LAB BLOOD ORDERABLES Final Res ult Performing Organization Address [facility]/ZIP Co de Phone Number JULIETA GUERRERO ([place]) 1 [facility] [place] [address] * Protime-INR (04/04/2024 5:57 PM AIRPORT ATTENDANT) PT 11.9 9.7 - 13.0 sec [facility] ([place]) INR 1.10 0.90 - 1.20 [facility] ([place]) Comment: Interpretive data Oral anticoagulant therapeutic ranges: Venous thromboembolism prophylaxis or treatment: 2.0-3.0 CARDIOLOGY Standard range: 2.0-3.0 High-intensity range: 2.5-3.5 Refer to indication-specific guidelines for appropriate target ranges for prosthetic heart valve replacement. Current interpretive data was last revised on 2019. Blood 04/04/2024 5:57 PM AIRPORT ATTENDANT 04/04/2024 7:20 PM AIRPORT ATTENDANT Narrative [facility] ([place]) - 04/04/2024 7:44 PM AIRPORT ATTENDANT Baseline prior to enoxaparin initiation. us Nikolas Doty MD LAB BLOOD ORDERABLES Final Res ult [facility] ([place]) 1 [facility] [place] [address] * (ABNORMAL) Comprehensive metabolic panel (04/04/2024 5:57 PM AIRPORT ATTENDANT) Sodium 140 135 - 145 mmol/L Potassium, pl 3.3 3.3 - 4.9 mmol/L [facility] ([place]) Chloride 100 97 - 110 mmol/L [facility] ([place]) CO2 28 22 - 32 mmol/L [facility] ([place] Anion gap 12 2 - 15 mmol/L [facility] ([place]) BUN 24 6 - 25 mg/dL [facility] ([place]) Creatinine 1.78(H) 0.80 - 1.30 mg/dL [facility] ([place]) Glucose 233(H) 70 - 199 mg/dL [facility] ([place]) Comment: Interpretive Data Fasting glucose [...] [facility] ([place]) Blood 04/04/2024 5:57 PM AIRPORT ATTENDANT 04/04/2024 6:03 PM AIRPORT ATTENDANT us Nikolas Doty MD LAB BLOOD ORDERABLES Final Res ult [facility] ([place]) 1 [facility] [place] [address] * XR Chest 1 Vw Portable (if patient condition/safety warrant portable) (04/04/2024 5:27 PM AIRPORT ATTENDANT) Anatomical Region Laterality Modality Body, Chest N/A Computed Radiogr aphy 04/04/2024 6:28 PM AIRPORT ATTENDANT Narrative 04/04/2024 6:29 PM AIRPORT ATTENDANT EXAM DESCRIPTION: XR CHEST 1 VIEW REASON [...] PM T: ??04/04/2024 6:29 PM Report ID: [id number] Reading Location: ??[id number] Procedure Note Xavi Driscoll MD - 04/04/2024 [...] Xavi Driscoll M.D. AR: REILLY Report ID: [id number] Reading Location: [id number] Nikolas Doty MD IMG XR PROCEDURES Final Result * ECG 12 lead (04/04/2024 5:11 PM AIRPORT ATTENDANT) 04/04/2024 5:11 PM AIRPORT ATTENDANT Narrative [facility] - 04/05/2024 6:31 AM AIRPORT ATTENDANT Vent Rate: 72 bpm RR Interval: 828 msec NH Interval: 0 msec QRS Duration: 90 msec QT Interval: 306 msec QTC Interval: 330 msec P-R-T [place]: [address] - -9 - -11 degrees IMPRESSION: Baseline artifact, probable sinus rhythm LOW QRS VOLTAGE IN PRECORDIAL LEADS ??[QRS DEFLECTION < 1.0 mV IN CHEST LEADS] NONSPECIFIC ST \T\ T-WAVE ABNORMALITY ABNORMAL RHYTHM ECG NO CHANGE FROM PREVIOUS TRACING NOTED Electronically Signed By: Juarez Thornton MD Nikolas Doty MD ECG ORDERABLES Final Result [facility] * XR Knee Left 4 or More [...] Pt states Tuesday his knee popped out and since then [...] PM T: ??02/28/2024 2:10 PM Report ID: [id number] Reading Location: ??[id number] Procedure Note Tania Kumar MD - 02/28/2024 [...] Tania Kumar M.D. MF: LONG Report ID: [id number] Reading Location: [id number] us Yaz Escobar MD IMG XR PROCEDURES F [...] children were not included. ?? (Diabetes Care [id number], 2008). ??The eAG is not equivalent to a fasting glucose. Blood 08/30/2023 2:23 AM CDT 08/30/2023 12:50 PM CDT us Destiny Devi NP LAB BLOOD ORDERABLES Final R esult JULIETA GUERRERO ([place]) 1 [facility] [place] [address] * (ABNORMAL) Lipid panel (08/28/2023 8:27 PM [...] on 2017. Triglycerides 229(H) <=149 mg/dL J[facility]IETA [facility] ([place]) Comment: Interpretive Data Ages < [...] BLOOD ORDERABLES Final Re sult JULIETA GUERRERO ([place]) 1 [facility] [place] [address] * PSA screen (10/28/2021 2:47 PM CDT) PSA-Total 3.15 <=5.40 ng/mL JULIETA GUERRERO ([place]) Comment: Interpretive Data ?AGE ? SEX ?REFERENCE INTERVAL 0 minutes-150 years ?Female ?None 0 minutes-49 years ? Male ?None ? 50-59 years ? Male ?0-3.90 ? 60-69 years ? Male ?0-5.40 ? 70-79 years ? Male ?0-6.20 ? 80-150 years ?Male ?0-6.20 The clickTRUE PSA Total assay procedure was used. Results from different manufacturers or methods may not be comparable. Serial testing should be performed using the same method. Current interpretive data last revised 21. Testing performed by: [facility], [address] [place] [address], [place]., [address] Blood 10/28/2021 2:47 PM CDT 10/28/2021 7:50 PM CDT Sohail Gould MD LAB BLOOD ORDERABLES Holly l Result JULIETA GUERRERO ([place]) 1 [facility] [place] [address] * (ABNORMAL) Albumin Creatinine Ratio, Urine (10/28/2021 2:47 PM CDT) Albumin Ur 713.6 mg/L [facility] ([place]) Comment: Interpretive Data No reference range established. Current interpretive data was last revised 2018. Testing performed by: [facility], [address] [place] [address]., [address] Creatinine Ur 343.1 mg/dL [facility] ([place]) Comment: Interpretive Data No reference range established. Current interpretive data was last revised 2018. Testing performed by: [facility], [address] [place] [address]., [address] Albumin Creatinine Ratio, Ur 208(H) 1 - 29 mg/g [facility] ([place]) Comment:Testing performed by : [facility], [address] [place] [address]., [address] Urine 10/28/2021 2:47 PM CDT 10/28/2021 9:10 PM CDT Sohail Gould MD LAB URINE ORDERABLES Holly l Result Performing Organization Address [facility]/ZIP Co de Phone Number JULIETA GUERRERO (ROSA ELENA) 1 [facility] [place] [address] * Stool DNA - Cologuard (11/30/2020) Scribed Stool DNA - Cologuard Negative EXTERNAL LAB Stool Historical Provider LAB BODY FLUIDS AND STOOL S ORDERABLES Final Result EXTERNAL LAB from Last 3 Months or Most Recently Relevant to Health Maintenance Insurance IDPA MEDICARE SOLUTIONS IDPA MEDICARE SOLUTIONS MEDICARE SOLUTIONS [facility] MDCR HMO REF IDPA Advance Directives For more information, please contact: [phone] * Full Code (Latest Code Status on [...] 1:59 PM 02/05/2023 5:22 PM Care Teams Wind Energy Project Manager Relationship Specialty Start Date End Date Melchor Woodard MD PCP - General Family Practice 07/30/22 Nicolas Jung MD Surgeon Orthopedic Surgery 08/05/21 Louie Lomeli MD Consulting Physician Cardiology 12/23/21 Tania Sparrow MD [address] [place] [address] [place] [address] Consulting Physician Neurology 12/14/22
--- OUTSIDE RECORDS SUMMARY | 2024-05-30 13:52 | XMS_ITS | Continuity of Care Document ---
Author Organization [facility] Address [address] [facility] [place] [address] Phone Care Team Providers Care Diabetes Solutions Specialist Name Role Phone Kita Perry OD Unavailable [...] Diagnoses Date Provider Providers Copied on Encounter [facility], [address], [place], [place], [address], [place] tel:[phone] SEC Arnoldo ECKERT Professional No Information 3 Vicky JOSE JUAN Kita. [address], [address], [place], [place], [address], [place]. tel:[phone] [facility], [address], [place], [place], [address], [place] tel:[phone] SEC Arnoldo ECKERT Professional Complete Exam (chief complaint) Type 2 diab with mild nonp rtnop without mclr edema, r eyeCombined forms of age-related cataract, left eyePresence of intraocular lensDry eye syndrome of bilateral lacrimal glandsXT (exotropia) 3 Vicky OD Kita. [facility] [address], [address], [place], [place], [address], [place]. tel:[phone] Referring Provider: Kita Perry OD L, [facility] [address], [place], [address] . tel:[phone] [facility], [facility] [address], [place], [place], [address], [place] tel:[phone] SEC Arnoldo ECKERT Professional Cataract Evaluation (chief complaint) Pseudophakia of right eyeCombined forms of age-related cataract, left eyeXT (exotropia)Pt osis of both eyelids 0 1 Waqar Pace. [address], [facility] A, [place], [place], [address], [place]. tel:[phone] Referring Provider: Sanjeev Barker, [address] [facility], [place], [address] . tel:[phone] Office/outpa tient Visit, Est [facility], [facility] [address], [place], [place], [address], [place] tel:[phone] SEC Arnoldo ECKERT Professional WIE (chief complaint) Abrasion of right eyelid, initial encounterEdem a of right upper eyelid Oct-0 0 Waqar Pace. [address], [facility] A, [place], [place], [address], [place]. tel:[phone] Referring Provider: Sanjeev Barker, [address], [place], [address] . tel:[phone] [facility] Eye [facility], [address], [place], [place], [address], [place] tel:[phone] SEC Arnoldo ECKERT Professional 1 month s/p PCIOL (chief complaint) Post op visit 0 Juan F Lam. [address] [facility], 6th Floor, [place], [address], [place]. tel:[phone] Referring Provider: Sanjeev Barker, [address], [place], [address] . tel:[phone] Office/outpa tient Visit, Est [facility], [address], [place], [place], [address], [place] tel:[phone] SEC Arnoldo ECKERT Professional WIE (chief complaint) Allergic conjunctiviti s of both eyes 0 Waqar Pace. [address], [address], [place], [place], [address], [place]. tel:[phone] Referring Provider: Sanjeev Barker, [address], [place], [address] . tel:[phone] [facility], [address], [place], [place], [address], [place] tel:[phone] SEC Arnoldo ECKERT Professional 1 day s/p PCIOL (chief complaint) Post op visit 0 Waqar Pace. [address], [address], [place], [place], [address], [place]. tel:[phone] Referring Provider: Sanjeev Barker, [address], [place], [address] . tel:[phone] [facility] Eye [facility], [address], [place], [place], [address], [place] tel:[phone] [facility] [place] No Information 0 Annemarie Abelardo. [facility] [address], [address], [place], [place], [address], . tel:[phone] Referring Provider: Sanjeev Barker, [address] [facility] [address], [place], [address] . tel:[phone] [facility], [address] [place], [place] [address] [address], [place], [place], [address], tel:[phone] SEC [place] No Information 0 Annemarie Abelardo. [facility] [address], [address], [place], [place], [address], [place]. tel:[phone] Referring Provider: Sanjeev Barker, [address] [facility] [address], [place], [address] . tel:[phone] [facility], [address] [place] [address] [address], [place], [place], [address], tel:[phone] SEC [place] Professional Cataract evaluation (chief complaint) Post op visitCombined forms of age-related cataract, bilateral 0 Annemarie Abelardo. [facility] [address], [address], [place], [place], [address], [place]. tel:[phone] Referring Provider: Sanjeev Barker, [address] [facility] [address], [place], [address] . tel:[phone] [facility], [facility] [employer] [address], [place], [place], [address], [place] tel:[phone] SEC [place] Professional Cataract evaluation (chief complaint) Post op visit 0-201 9 Annemarie Abelardo. [facility] [address], [address], [place], [place], [address], . tel:[phone] Referring Provider: Sanjeev Barker, [address] [facility] [address], [place], [address] . tel:[phone] [facility], [address], [place], [place], [address], [place] tel:[phone] SEC Rebekah [place] 1 wk Pterygium excision po (chief complaint) Post op visit 9 Annemarie Zhou. [facility] [address], [address], [place], [place], [address], [place]. tel:[phone] Referring Provider: Sanjeev Barker, Emerita[address] [facility] [address], [place], [address] . tel:[phone] [facility], [address], [place], [place], [address], [place] tel:[phone] SEC [place] Pterygium excision (chief complaint) Post op visit 0 9 Annemarie Zhou. [facility] [address], [address], [place], [place], [address], [place]. tel:[phone] Referring Provider: Sanjeev Barker, [address] [facility] [address], [place], [address] . tel:[phone] [facility], [address], [place], [place], [address], [place] tel:[phone] [facility] [place] No Information 9 Annemarie Zhou. [facility] [address], [address], [place], [place], [address], [place]. tel:[phone] Referring Provider: Sanjeev Barker, [address] [facility] [address], [place], [address] . tel:[phone] Office/outpa tient Visit, Est [facility], [address], [place], [place], [address], [place] tel:[phone] SEC [place] Professional pterygium and cataract (chief complaint) Peripheral pterygium, progressive, left eyeCombined forms of age-related cataract, bilateral Oct- 9 Annemarie Zhou. [address], [address], [place], [place], [address], [place]. tel:[phone] Referring Provider: Sanjeev Barker, [address] [facility] A, [place], [address] . tel:[phone] [facility] Eye [facility], [address], [place], [place], [address], [place] [phone] SEC [place] Professional Complete Exam (chief complaint) Age-related nuclear cataract, bilateralPter ygium of left eyeAllergic conjunctiviti s of both eyes 9 Waqar Pace. [address] [facility], [facility] A, [place], [place], [address], [place]. tel:[phone] Referring Provider: Sanjeev Barker, [address] [facility] A, [place], [address] . tel:[phone] [facility], [address], [place], [place], [address], [place] [phone] SEC [place] No Information 9 Asha JOSE JUAN Destiny. [address] [facility], [facility] A, [place], [address], . tel:[phone] Family History Family Member Type Diagnosis Age At Onset Problem (finding) Family history of Diabe prakash mellitus Payers Payer name Insurance type Covered republican ID Authoriza tion(s) AAR Medicare Complete [place] [id number] Medicaid [place] [id number] Social History Type Description Quantity Date Captured [...]
[2024-05-30 20:00] LABS: Alanine Aminotransferase 19 U/L (6-50); Albumin Level 3.8 g/dL (3.5-5.1); Alkaline Phosphatase 106 U/L (38-126); Anion Gap 13 mmol/L (4-12); Aspartate Amino Transferase 36 U/L (17-59); Bilirubin,Total 0.6 mg/dL (0.2-1.3); Blood Urea Nitrogen 25 mg/dL (9-20); Calcium 9.2 mg/dL (8.4-10.2); Carbon Dioxide 27 mmol/L (22-30); Chloride 101 mmol/L (98-107); Cholesterol 175 mg/dL (0-200); Estimated Glomerular Filt Rate 40; Glucose 280 mg/dL (65-110); HDL Direct 29 mg/dL; Potassium 3.8 mmol/L (3.4-5.0); Sodium 141 mmol/L (137-145); Triglycerides 241 mg/dL (<150)
[2024-05-30 20:11] LABS: LDL Cholesterol Direct 113 mg/dL
[2024-05-30 20:25] LABS: Prostate Specific Antigen 3.7 ng/mL (< OR = 4.0)
== END 2024-05-30 12:54 | disposition home or self-care (01) ==
LOC: ANHBWCLAB 12:54
PROVIDERS: PCP Nurse Practitioner Adult Health; Visit Provider Nurse Practitioner Adult Health
DX: E11.22 Type 2 diabetes mellitus with diabetic chronic kidney disease (principal); Z12.5 Encounter for screening for malignant neoplasm of prostate
CPT/HCPCS: 36415; 80053; 80061; 83036; 84153; G0103

== ENCOUNTER 2024-06-11 12:55 | Outpatient (CLI) | payer MEDICARE, SELFPAY ==
--- NOTE | ~2024-06-11 | XR_ITS ---
EXAMINATION: [id number] DATE: 06/11/2024 13:13 INDICATION: Left foot pain. TECHNIQUE: 4 views of left foot were obtained. COMPARISON: None. FINDINGS: Alignment is normal. No fracture. There is mild osteoarthritis of first metatarsophalangeal joint and some of the interphalangeal joints. There are enthesophytes at the posterior and plantar a spects of calcaneal tuberosity. IMPRESSION: 1. Mild polyarticular osteoarthritis. Reviewed, dictated and finalized at location A. ICE CARE CONSULTANT
--- OUTSIDE RECORDS SUMMARY | 2024-06-11 13:09 | XMS_ITS | Continuity of Care Document ---
Author Organization [facility] Address [address] [place] [address] Phone Care Team Providers Care Shaft Mechanic Name Role Phone Vicky JOSE JUAN Kita Unavailable Unavailable Allergies, Adverse Reactions, Alerts Substance Reaction Status Criticality No Known Allergies Active No Inform ation Medications Medication Instructions Dosage Effective Dates (start - stop) Status Comments amlodipine 10 mg tablet take 1 tablet by oral route every day 10 MG - Active Vazalore 81 mg capsule take 1 capsule by oral route every day 81 MG - Active azelastine 0.05 % eye drops instill 1 drop by ophthalmic route 2 times every day into affected eye(s) 1.00 drop - Active ezetimibe 10 mg tablet take 1 tablet by oral route every day 10 MG - Active gabapentin 100 mg capsule take 1 capsule by oral route 3 times every day 100 MG - Active hydralazine 50 mg tablet take 1 tablet b y oral route 2 times every day with food 50 MG - Active hydrochlorothiazide 25 mg tablet take 1 tablet by oral route every day 25 MG - Active levothyroxine 50 mcg capsule take 1 capsule by oral route every day 50 MCG - Active losartan 25 mg tablet take 1 tablet by oral route every day 25 MG - Active meclizine 25 mg tablet take 1 tablet by oral route 3 times every day as needed 25 MG - Active metoprolol succinate ER 50 mg tablet,extended release 24 hr take 1 tablet by oral route every day 50 MG - Active Nitro-Bid 2 % transdermal ointment apply 1 inch by transdermal route every 8 hours and remove at bedtime 15 MG - Active Brilinta 90 mg tablet take 1 tablet by oral route 2 times every day 90 MG - Active Topamax 50 mg tablet take 1 tablet by oral route 2 times every day 50 MG - Active Procedures Procedure Date Fundus [...] Diagnoses Date Provider Providers Copied on [facility], [address], [place], [place], [address], [place] tel:[phone] SEC Arnoldo ECKERT Professional No Information 3 Vicky JOSE JUAN Kita. [address], [address], [place], [place], [address], [place]. tel:[phone] [facility], [address], [place], [place], [address], [place] tel:[phone] SEC Arnoldo ECKERT Professional Complete Exam (chief complaint) Type 2 diab with mild nonp rtnop without mclr edema, r eyeCombined forms of age-related cataract, left eyePresence of intraocular lensDry eye syndrome of bilateral lacrimal glandsXT (exotropia) 3 Vicky OD Kita. [facility] [address], [address], [place], [place], [address], [place]. tel:[phone] Referring Provider: Kita Perry OD L, [facility] [address], [place], [address] . tel:[phone] [facility], [facility] [address], [place], [place], [address], [place] tel:[phone] SEC Arnoldo ECKERT Professional Cataract Evaluation (chief complaint) Pseudophakia of right eyeCombined forms of age-related cataract, left eyeXT (exotropia)Pt osis of both eyelids 0 1 Waqar Pace. [address], [facility] A, [place], [place], [address], [place]. tel:[phone] Referring Provider: Sanjeev Barker, [address] [facility], [place], [address] . tel:[phone] Office/outpa tient Visit, Est [facility], [facility] [address], [place], [place], [address], [place] tel:[phone] SEC Arnoldo ECKERT Professional WIE (chief complaint) Abrasion of right eyelid, initial encounterEdem a of right upper eyelid Oct-0 0 Waqar Pace. [address], [facility] A, [place], [place], [address], [place]. tel:[phone] Referring Provider: Sanjeev Barker, [address], [place], [address] . tel:[phone] [facility] Eye [facility], [address], [place], [place], [address], [place] tel:[phone] SEC Arnoldo ECKERT Professional 1 month s/p PCIOL (chief complaint) Post op visit 0 Juan F Lam. [address] [facility], 6th Floor, [place], [address], [place]. tel:[phone] Referring Provider: Sanjeev Barker, [address], [place], [address] . tel:[phone] Office/outpa tient Visit, Est [facility], [address], [place], [place], [address], [place] tel:[phone] SEC Arnoldo ECKERT Professional WIE (chief complaint) Allergic conjunctiviti s of both eyes 0 Waqar Pace. [address], [address], [place], [place], [address], [place]. tel:[phone] Referring Provider: Sanjeev Barker, [address], [place], [address] . tel:[phone] [facility], [address], [place], [place], [address], [place] tel:[phone] SEC Arnoldo ECKERT Professional 1 day s/p PCIOL (chief complaint) Post op visit 0 Waqar Pace. [address], [address], [place], [place], [address], [place]. tel:[phone] Referring Provider: Sanjeev Barker, [address], [place], [address] . tel:[phone] [facility] Eye [facility], [address], [place], [place], [address], [place] tel:[phone] [facility] [place] No Information 0 [place] Abelardo[address] [facility] [place], [address], [place], [place], [address], . tel:[phone] Referring Provider: Sanjeev Barker, [address], [place], [address] . tel:[phone] [facility], [address] [place], [place] [address]creAd[facility] [address], [place], [place], [address], tel:[phone] SEC [place] No Information 0 [place] Abelardo[address] [facility] [place], [address], [place], [place], [address], [place]. tel:[phone] Referring Provider: Sanjeev Barker, [address] [facility] [address], [place], [address] . tel:[phone] [facility], [address] [place] [address] [address], [place], [place], [address], tel:[phone] SEC [place] Professional Cataract evaluation (chief complaint) Post op visitCombined forms of age-related cataract, bilateral [address] [facility] [place], [address], [place], [place], [address], [place]. tel:[phone] Referring Provider: Sanjeev Barker, [address] [facility] [address], [place], [address] . tel:[phone] [facility], [facility] [address], [place], [place], [address], [place] tel:[phone] SEC Arnold[place] Professional Cataract evaluation (chief complaint) Post op visit 0-201 [address] [place] [address] [facility] [place], [address], [place], [place], [address], . tel:[phone] Referring Provider: Sanjeev Barker, [address] [facility] [address], [place], [address] . tel:[phone] [facility], [address], [place], [place], [address], [place] tel:[phone] SEC Rebekah [place] 1 wk Pterygium excision po (chief complaint) Post op visit [address] [facility], [address], [place], [place], [address], [place]. tel:[phone] Referring Provider: Sanjeev Barker, [address], [place], [address] . tel:[phone] [facility], [address], [place], [place], [address], [place] tel:[phone] [place] Pterygium excision (chief complaint) Post op visit 0 [address] [facility], [address], [place], [place], [address], [place]. tel:[phone] Referring Provider: Sanjeev Barker, [address], [place], [address] . tel:[phone] [facility], [address], [place], [place], [address], [place] tel:[phone] [facility] [place] No Information [address] [facility] [place], [address], [place], [place], [address], [place]. tel:[phone] Referring Provider: Sanjeev Barker, [address], [place], [address] . tel:[phone] Office/outpa tient Visit, Est [facility], [address], [place], [place], [address], [place] tel:[phone] SEC [place] Professional pterygium and cataract (chief complaint) Peripheral pterygium, progressive, left eyeCombined forms of age-related cataract, bilateral Oct- 9 Annemarie Zhou. [address], [address], [place], [place], [address], [place]. tel:[phone] Referring Provider: Sanjeev Barker, [address] [facility] A, [place], [address] . tel:[phone] [facility], [address], [place], [place], [address], [place] [phone] SEC [place] Professional Complete Exam (chief complaint) Age-related nuclear cataract, bilateralPter ygium of left eyeAllergic conjunctiviti s of both eyes 9 Waqar Pace. [address] [facility], [facility] A, [place], [place], [address], [place]. tel:[phone] Referring Provider: Sanjeev Barker, [address] [facility] A, [place], [address] . tel:[phone] [facility], [address], [place], [place], [address], [place] [phone] [place] No Information 9 Asha JOSE JUAN Destiny. [address] [facility], [facility] A, [place], [address], . tel:[phone] Family History Family Member Type Diagnosis Age At Onset Problem (finding) Family history of Diabe prakash mellitus Payers Payer name Insurance type Covered republican ID Authoriza tion(s) AAR Medicare Complete [place] [id number] [place] [id number] Social History Type Description Quantity Date Captured [...]
== END 2024-06-11 12:56 | disposition home or self-care (01) ==
LOC: ANHBWCIMG 12:57
PROVIDERS: PCP Nurse Practitioner Adult Health; Visit Provider Orthopaedic Surgery
DX: M19.072 Primary osteoarthritis, left ankle and foot (principal)
CPT/HCPCS: 73630

== ENCOUNTER 2024-07-19 14:29 | Outpatient (CLI) | payer MEDICARE, SELFPAY ==
--- NOTE | ~2024-07-19 | XR_ITS ---
XR chest 2V 07/19/2024 14:56 Indication: Chronic shortness of breath Procedure: 2 view chest Comparison: No prior studies for comparison. Findings: Left lower lobe airspace disease, compatible with pneumonia. Heart size normal. No pleural effusion or pneumothorax. No acute osseous abnormality. No edema. Impression: 1: Left basilar pneumonia. Reviewed, dictated and finalized at location B. Impression: 1: Left basilar pneumonia.
--- OUTSIDE RECORDS SUMMARY | 2024-07-19 14:57 | XMS_ITS | Encounter Summary ---
Author Organization [facility] Healthcare Address [address] [place] [address] Care Team Providers Care Helicopter Pilot Instructor Name Role Phone Nicolas Jung MD Unavailable Louie Lomeli MD Unavailable Melchor Woodard MD Primary Care Provider [phone] Jairo Sparrow MD Unavailable [phone] NavarreteMaria Eugenia quiñones [facility] Unavailable [phone] Encounter Details Date Type Department Care Team (Late st Contact Info) Description 06/02/2023 Telephone [facility] [address] [facility] [address] [place] [address] Jonathan Miranda MD [address] [place] [address] Social History Tobacco Use Types Packs/Day Years [...] week 02/04/2023 How often do you attend [facility] or buddhism services? Never 02/04/2023 Do you belong to any clubs o r organizations such as christianity groups, unions, fraternal or athletic groups, or [...] place to sleep or slept in a mcc (including now)? Yes 02/04/2023 Personal Safety Answer Date Recorded Have you ever been in or are you currently in a harmful physical or emotional relationship or is someone making you feel afraid or unsafe? Denies 03/09/2023 Sex and Gender Information Value Date Recorded Sex Assigned at Not on file Legal Sex Male 12:23 AM DIRECTOR OF STUDENT FINANCIAL SERVICES Gender Identity Not on file Sexual Orientation [...] 01/10/2024 01/10/2024 04/09/2024 3:[address] COVID: Suspected 06/12/2024 06/12/2024 06/12/2024 4:34 PM DIRECTOR OF STUDENT FINANCIAL SERVICES documented as of this encounter Care Teams Helicopter Pilot Instructor Relationship Specialty Start Date End Date Melchor Woodard MD PCP - General Family Practice 07/30/22 Nicolas Jung MD Surgeon Orthopedic Surgery 08/05/21 Louie Lomeli MD Consulting Physician Cardiology 12/23/21 Jairo Sparrow MD [address] [facility] [place] [address] Consulting Physician Neurology 12/14/22 Maria Eugenia Navarrete, [address] [place] [address] Pharmacist Pharmacy 03/12/24 03/12/24 documented as of this encounter
--- OUTSIDE RECORDS SUMMARY | 2024-07-19 14:57 | XMS_ITS | Encounter Summary ---
Author Organization [facility] Healthcare Address [address] [place] [address] Care Team Providers Care Hvac R Tech Name Role Phone Nicolas Jung MD Unavailable [phone] Louie Lomeli MD Unavailable [phone] Melchor Woodard MD Primary Care Provider [phone] Jairo Sparrow MD Unavailable [phone] Maria Eugenia Navarrete [facility] Unavailable [phone] Encounter Details Date Type Department Care Team (Late st Contact Info) Description 06/02/2023 Telephone [facility] [address] [place] [address] Jonathan Miranda MD [address] [place], [place] [id number] Social History Tobacco Use Types Packs/Day Years [...] How often do you attend chur or oriental orthodox services? Never 02/04/2023 Do you belong to any clubs o r organizations such as quaker groups, unions, fraternal or athletic groups, or [...] place to sleep or slept in a intermediate (including now)? Yes 02/04/2023 Personal Safety Answer Date Recorded Have you ever been in or are you currently in a harmful physical or emotional relationship or is someone making you feel afraid or unsafe? Denies 03/09/2023 Sex and Gender Information Value Date Recorded Sex Assigned at Not on file Legal Sex Male 12:23 AM GLAZE MAKER Gender Identity Not on file Sexual Orientation [...] COVID: Suspected 06/12/2024 06/12/2024 06/12/2024 4:34 PM GLAZE MAKER documented as of this encounter Care Teams Hvac R Tech Relationship Specialty Start Date End Date Melchor Woodard MD PCP - General Family Practice 07/30/22 Nicolas Jung MD Surgeon Orthopedic Surgery 08/05/21 Louie Lomeli MD Consulting Physician Cardiology 12/23/21 Jairo Sparrow MD [address] [place] [address] [place] [address] Consulting Physician Neurology 12/14/22 Maria Eugenia Navarrete, [address] [place] [address] Pharmacist Pharmacy 03/12/24 03/12/24 documented as of this encounter
--- OUTSIDE RECORDS SUMMARY | 2024-07-19 14:57 | XMS_ITS | Encounter Summary ---
Author Organization [facility] Address [address] [place] [address] Phone Care Team Providers Care Daycare Assistant Name Role Phone Mark De Los Santos MD Unavailable Unavailable Rand Tsang MD Unavailable [phone] Carlos Moran MD Primary Care Provider [phone] Sohail Gould MD Primary Care Provider [phone] Reason for Visit * Reason Comments Medication Refill Encounter Details Date Type Department Care Team (Late st Contact Info) Description 01/26/2021 Refill [facility] - Primary Care - [place] [address] [place] [address] Carlos Moran MD [address] [place] [address] Medication Refill Social History Tobacco [...] documented as of this encounter Care Teams Daycare Assistant Relationship Specialty Start Date End Date Carlos Moran MD [address] [place] [address] PCP - General Internal Medicine 10/07/20 08/19/21 Sohail Gould MD [address] [place] [address] PCP - General Family Medicine 08/20/21 Mark De Los Santos MD Consulting Physician Urology 09/05/15 Rand Tsang MD Consulting Physician Dermatopathology 01/16/18 documented as of this encounter
--- OUTSIDE RECORDS SUMMARY | 2024-07-19 14:57 | XMS_ITS | Clinical Summary ---
Author Organization [facility] Address [address] [place] [address] Care Team Providers Care Astrobiologist Name Role Phone Carlos Moran MD Primary Care Provider [phone] Source Comments [facility],non-owned Affiliates and Associated Physician Practices is amultiple site organization consisting of ambulatory clinics and hospital sitesin [place], [place], [place] and [place]. This disclosure is being madepursuant to the Care Everywhere program and may not contain all information available regarding this patient. Last updated 18.[facility] Allergies No known active allergies Medications * [...] Noted Date Diagnosed Date Skin tag 09/28/2018 Family History Medical History Relation Name Comments [...] Comments Blood Pressure 136/78 04/24/2017 10:32 AM SUPERVISOR FELLING BUCKING Pulse 78 04/24/2017 10:32 AM SUPERVISOR FELLING BUCKING Temperature 36.8 C (98.2 F) 04/24/2017 10:32 AM SUPERVISOR FELLING BUCKING Respiratory Rate - - Oxygen Saturation - - Inhaled Oxygen Concentration - - Weight 104.8 kg (231 lb) 04/24/2017 10:32 AM SUPERVISOR FELLING BUCKING Height 177.8 cm (5' 10 ) 04/24/2017 10:32 AM SUPERVISOR FELLING BUCKING Body Mass Index 33.15 04/24/2017 10:32 AM SUPERVISOR FELLING BUCKING Plan of Treatment Health Maintenance Due Date [...] AAA SCREENING 2017 COVID-19 VACCINE (4 - 2023- season) 2024 03/25/2021, 07/08/2020, 06/10/2020 INFLUENZA VACCINE (#1) 2024 , 03/19/2020, 02/02/2019, Additional history exists DEPRESSION SCREENING 05/02/2024 MEDICARE AWV CALENDAR YEAR 2024 Respiratory Syncytial Virus (RSV) Vaccine Pt: or over 60 yrs (1 - 1-dose 75+ series) 2027 LIPID TESTING 04/13/2029 04/13/2024, 04/11/2018 HEPATITIS B VACCINE Aged Out No longe r eligible based on patient's age to complete this topic HIB VACCINE Aged Out No longer eligi ble based on patient's age to complete this topic HPV VACCINE Aged Out No longer eligi ble based on patient's age to complete this topic MENINGOCOCCAL (Group B) VACCINE SHARED DECISION-MAKING Aged Out No longer eligible based on patient's age to complete this topic MENINGOCOCCAL GROUPS A/C/Y/W VACCINE Aged Out No longer eligible based on patient's age to complete this topic Procedures Procedure Name Priority Date/Time Associated Diagnosis Comments LIPID PROFILE STAT 04/13/2024 3:21 PM SUPERVISOR FELLING BUCKING from Last 3 Months or Most Recently Relevant to Health Maintenance Results * (ABNORMAL) LIPID PROFILE (04/13/2024 3:21 PM SUPERVISOR FELLING BUCKING) Cholesterol 173 <200 mg/dL 04/13/2024 3:48 PM SUPERVISOR FELLING BUCKING [facility] Triglycerides 179(H) <150 mg/dL 04/13/2024 3:48 PM SUPERVISOR FELLING BUCKING [facility] HDL Cholesterol 26(L) >40 mg/dL 4 3:48 PM SUPERVISOR FELLING BUCKING [facility] LDL Calculated 111 <130 mg/dL 04/13/2024 3:48 PM SUPERVISOR FELLING BUCKING [facility] VLDL Calculated 36(H) <=30 mg/dL 4 3:48 PM SUPERVISOR FELLING BUCKING [facility] Chol HDL Ratio 6.7(H) <4.5 04/13/2024 3:48 PM SUPERVISOR FELLING BUCKING [facility] LDL/HDL Ratio 4.3 <5.0 04/13/2024 3:48 PM SUPERVISOR FELLING BUCKING [facility] Blood BLOOD SPECIMEN / Unknown Venipuncture / Unknown 04/13/2024 3:21 PM SUPERVISOR FELLING BUCKING 04/13/2024 3:25 PM SUPERVISOR FELLING BUCKING [facility] - CHEMISTRY ALFREDO WHEELER [facility] [address] [place] [address] from Last 3 Months or Most Recently Relevant to Health Maintenance Care Teams Astrobiologist Relationship Specialty Start Date End Date Carlos Moran MD PCP - General Internal Medicine 04/24/17
--- OUTSIDE RECORDS SUMMARY | 2024-07-19 14:57 | XMS_ITS | Encounter Summary ---
Author Organization [facility] Address [address] [place] [address] Phone Care Team Providers Care Tennis Camp Instructor Name Role Phone Carlos Moran MD Primary Care Provider [phone] Mark De Los Santos MD Unavailable Unavailable Rand Tsang MD Unavailable [phone] Provider, None Primary Care Provider Unavaildanny e Sohail Gould MD Primary Care Provider [phone] Carlos Moran MD Primary Care Provider [phone] Sohail Gould MD Primary Care Provider [phone] Reason for Visit * Reason Comments Medication Refill Encounter Details Date Type Department Care Team (Late st Contact Info) Description 03/21/2020 Refill [facility] - Primary Care - [place] [address] [place] [address] Carlos Moran MD [address] [place], [place] [id number] Medication Refill Social History Tobacco Use Types [...] COVID-19? No / Unsure 03/13/2020 2:58 PM ALMOND BLANCHER HAND documented as of this encounter Miscellaneous Notes * Telephone Encounter - Carlos Moran MD - 03/21/2020 10:53 AM ALMOND BLANCHER HAND Refill request approved. [place] BLANCHER HAND * Telephone Encounter - Tavia Pablo [facility] - 03/21/2020 10:42 AM ALMOND BLANCHER HAND Medication failed the protocol, provider to review [...] weeks ago Acute pain of left knee [facility] Carlos Moran MD 1 month ago Cellulitis of mouth [facility] Carlos Moran MD 1 month ago Polyneuropathy associated with underlying disease (HCC) [facility] Family [facility] Carlos Moran MD 4 months ago Hypertension, essential [facility] Carlos Moran MD 8 months ago Urinary pain [facility] Carlos Moran MD Upcoming Appointments Future Appointments In 1 month Fox Shearer MD [facility] Carlos Moran MD [facility] - Recent and Past Visits Recent Visits Date Type Provider Dept 02/28/20 Office Visit Carlos Moran MD [facility] [address] 02/18/20 Office Visit Carlos Moran, [facility] [address] 02/05/20 Office Visit Carlos Moran, [facility] [address] 10/24/19 Office Visit Carlos Moran, [facility] [address] 07/13/19 Office Visit Carlos Moran, MD [address] 04/23/19 Office Visit Carlos Moran, MD [address] 02/12/19 Office Visit Carlos Moran, [facility] Showing recent visits within past 460 days with a meds authorizing provider and meeting all other requirements Future Appointments Date Type Provider Dept 04/24/20 Appointment Carlos Moran, [facility] Show[facility] future appointments within next 90 days with a meds authorizing provider and meeting all other requirements [place] BLANCHER HAND documented in this encounter Plan of Treatment Not on file documented as of this encounter Visit Diagnoses Not on filedocumented in this encounter Additional Health Concerns Assessment Noted Time PHQ-9 Depression Total Score: 0 07/13/19 10:00 AM CDT documented as of this encounter Care Teams Tennis Camp Instructor Relationship Specialty Start Date End Date Carlos Moran MD [address] [place] [address] PCP - General Internal Medicine 01/28/15 04/21/20 Provider, None [place] PCP - General 04/22/20 08/04/20 Sohail Gould MD [address] [place] [address] PCP - General Family Medicine 08/05/20 10/06/20 Carlos Moran MD [address] [place] [address] PCP - General Internal Medicine 10/07/20 08/19/21 Sohail Gould MD [address] [place] [address] PCP - General Family Medicine 08/20/21 Mark De Los Santos MD [address] [place] [address] Consulting Physician Urology 09/05/15 Rand Tsang MD [address] [place] [address] Consulting Physician Dermatopathology 01/16/18 documented as of this encounter
--- OUTSIDE RECORDS SUMMARY | 2024-07-19 14:57 | XMS_ITS | Encounter Summary ---
Author Organization [facility] Health Address [address] [place] [address] Care Team Providers Care Loss Prevention Research Engineer Name Role Phone Carlos Moran MD Primary Care Provider [phone] Encounter Details Date Type Department Care Team (Late st Contact Info) Description 04/13/2024 Lab Requisition [facility] [address] [place] [address] [place] [address] Social History Tobacco Use Types Packs/Day Years [...] FREE T4 STAT 04/13/2024 3: 21 PM ENERGY PROFESSIONAL HEMOGLOBIN A1C STAT 04/13/2024 3:21 PM ENERGY PROFESSIONAL CBC W AUTO DIFFERENTIAL STAT 04/13/2024 3:21 PM ENERGY PROFESSIONAL COMPREHENSIVE METABOLIC PANEL STAT 04/13/2024 3:21 PM ENERGY PROFESSIONAL LIPID PROFILE STAT 04/13/2024 3:21 PM ENERGY PROFESSIONAL documented in this encounter Results * (ABNORMAL) HEMOGLOBIN A1C (04/13/2024 3:21 PM ENERGY PROFESSIONAL) Pathologist [facility] Hemoglobin A1c 7.3(H) <5.7 % 04/13/2024 3:47 PM ENERGY PROFESSIONAL [facility] Estimated Average Glucose 163 mg/dL 04/13/2024 3:[address] [facility] Blood BLOOD SPECIMEN / Unknown 04/13/2024 3:21 PM ENERGY PROFESSIONAL 04/13/2024 3:25 PM ENERGY PROFESSIONAL [facility] - 04/13/2024 3:47 PM ENERGY PROFESSIONAL HbA1c Interpretation: Normal: < 5.7% Pre-diabetes: 5.7-6.4% Diabetes: Equal to or greater than 6.5% Test results diagnostic of diabetes should be repeated for confirmation. Treatment target values recommended by ADA and other clinical organizations should be used to evaluate metabolic control in patients. This test should not replace glucose testing for patients with Type 1 diabetes, pediatric patients, or women. Falsely low HbA1c results may be observed in patients with clinical conditions that shorten erythrocyte life span or decrease mean erythrocyte age such as the presence of unstable hemoglobin variants, elevated hemoglobin F level or other causes of hemolytic anemia. HbA1c may not accurately reflect glycemic control when clinical conditions that affect erythrocyte survival are present. Severe Iron deficiency anemia may yield falsely high results. Hemoglobin A1c assay should not be used to diagnose or monitor diabetes in patients with malignancy, recent blood transfusion, chronic kidney or liver disease. This method may yield falsely low results when hemoglobin (HbF) exceeds 5% in the specimen. The Black Alinity assay for the measurement of HbA1c is a National Glycohemoglobin Standardization Program (NGSP) certified method. [facility] - CHEMISTRY ALFREDO WHEELER [facility] [address] [place] [address] * (ABNORMAL) LIPID PROFILE (04/13/2024 3:21 PM ENERGY PROFESSIONAL) [facility] Cholesterol 173 <200 mg/dL 04/13/2024 3:[address] [facility] Triglycerides 179(H) <150 mg/dL 04/13/2024 3:[address] [facility] HDL Cholesterol 26(L) >40 mg/dL 3:48 PM ENERGY PROFESSIONAL [facility] LDL Calculated 111 <130 mg/dL 04/13/2024 3:48 PM ENERGY PROFESSIONAL [facility] VLDL Calculated 36(H) <=30 mg/dL 3:48 PM ENERGY PROFESSIONAL [facility] Chol HDL Ratio 6.7(H) <4.5 04/13/2024 3:48 PM ENERGY PROFESSIONAL [facility] LDL/HDL Ratio 4.3 <5.0 04/13/2024 3:48 PM ENERGY PROFESSIONAL [facility] Blood BLOOD SPECIMEN / Unknown Venipuncture / Unknown 04/13/2024 3:21 PM ENERGY PROFESSIONAL 04/13/2024 3:25 PM ENERGY PROFESSIONAL [facility] - CHEMISTRY ORDBert WHEELER Performing Organization Address [facility]/ZIP Co de Phone Number [facility] [address] [place] [phone] * TSH REFLEX FREE T4 (04/13/2024 3:21 PM ENERGY PROFESSIONAL) Pathologist [facility] TSH 3.335 0.350 - 4.940 uIU/mL 04/13/2024 4:06 PM ENERGY PROFESSIONAL [facility] Blood BLOOD SPECIMEN / Unknown Venipuncture / Unknown 04/13/2024 3:21 PM ENERGY PROFESSIONAL 04/13/2024 3:25 PM ENERGY PROFESSIONAL [facility] - CHEMISTRY ORDE LIAM Performing Organization Address [facility]/ZIP Co de Phone Number [facility] [address] [place] [phone] * (ABNORMAL) COMPREHENSIVE METABOLIC PANEL (04/13/2024 3:21 PM ENERGY PROFESSIONAL) Glucose 193(H) 70 - 99 mg/dL 04/13/2024 3:48 PM ENERGY PROFESSIONAL [facility] Sodium 140 136 - 145 mmol/L 04/13/2024 3:48 PM ENERGY PROFESSIONAL [facility] Potassium 3.4(L) 3.5 - 5.1 mmol/L 04/13/2024 3:48 PM ENERGY PROFESSIONAL [facility] Chloride 104 98 - 107 mmol/L 04/13/2024 3:48 PM ENERGY PROFESSIONAL [facility] CO2 26 22 - 29 mmol/L 04/13/2024 3:48 PM ENERGY PROFESSIONAL [facility] Calcium 9.6 8.4 - 10.4 mg/dL 04/13/2024 3:[address] [facility] Anion Gap 10 6 - 16 mmol/L 04/13/2024 3:[address] [facility] BUN 21 7 - 26 mg/dL 04/13/2024 3:[address] [facility] Creatinine 1.51(H) 0.72 - 1.25 mg/dL 04/13/2024 3:48 PM ENERGY PROFESSIONAL [facility] Alkaline Phosphatase 109 40 - 150 U/L 04/13/2024 3:[address] [facility] ALT 14 0 - 55 U/L 04/13/2024 3:[address] [facility] AST 13 5 - 34 U/L 04/13/2024 3:[address] [facility] Protein Total 6.9 6.4 - 8.3 gm/dL 04/13/2024 3:[address] [facility] Albumin 3.4 3.4 - 5.0 gm/dL 04/13/2024 3:[address] [facility] Bilirubin Total 0.3 0.2 - 1.2 mg/dL 04/13/2024 3:[address] [facility] eGFR by CKD-EPI 49(L) >=90 mL/min/1.7 3 m2 04/13/2024 3:[address] [facility] Blood BLOOD SPECIMEN / Unknown Venipuncture / Unknown 04/13/2024 3:21 PM ENERGY PROFESSIONAL 04/13/2024 3:25 PM [facility] Maged Mcdonnell [facility] - CHEMISTRY ALFREDO WHEELER [facility] [address] [place] [address] * (ABNORMAL) CBC WITH DIFFERENTIAL (04/13/2024 3:21 PM ENERGY PROFESSIONAL) [facility] Signature WBC 11.8(H) 4.0 - 10.7 x10E9/L 04/13/2024 3:32 PM ENERGY PROFESSIONAL [facility] RBC Count 4.77 4.30 - 5.80 x10E12/L 04/13/2024 3:[address] [facility] Hemoglobin 13.9 13.3 - 17.5 g/dL 04/13/2024 3:[address] [facility] Hematocrit 44.8 38.7 - 51.1 % 04/13/2024 3:[address] [facility] MCV 93.9 80.0 - 98.0 fL 04/13/2024 3:[address] [facility] MCH 29.1 26.7 - 33.6 pg 04/13/2024 3:[address] [facility] MCHC 31.0(L) 31.7 - 36.3 g/dL 04/13/2024 3:[address] [facility] RDW-CV 13.2 11.3 - 14.8 % 04/13/2024 3:[address] [facility] Platelet Count 253 150 - 420 x10E9/L 04/13/2024 3:[address] [facility] MPV 10.2 7.8 - 11.4 fL 04/13/2024 3:[address] [facility] Neutrophil % 79.0(H) 41.0 - 74.0 % 04/13/2024 3:[address] [facility] Lymphocyte % 10.8(L) 17.0 - 47.0 % 04/13/2024 3:[address] [facility] Monocyte % 7.3 3.0 - 11.0 % 04/13/2024 3:[address] [facility] Eosinophil % 1.5 0.0 - 7.0 % 04/13/2024 3:[address] [facility] Basophil % 0.3 0.0 - 1.6 % 04/13/2024 3:[address] [facility] Immature Granulocytes % 1.1(H) 0.0 - 1.0 % 04/13/2024 3:[address] [facility] Neutrophil Absolute 9.32(H) 1.60 - 7.50 x10E9/L 04/13/2024 3:[address] [facility] Lymphocyte Absolute 1.27 1.00 - 4.40 x10E9/L 04/13/2024 3:[address] [facility] Monocyte Absolute 0.86 0.15 - 1.00 x10E9/L 04/13/2024 3:[address] [facility] Eosinophil Absolute 0.18 0.00 - 0.60 x10E9/L 04/13/2024 3:32 PM ENERGY PROFESSIONAL [facility] Basophil Absolute 0.04 0.00 - 0.13 x10E9/L 04/13/2024 3:32 PM ENERGY PROFESSIONAL [facility] Blood BLOOD SPECIMEN / Unknown 04/13/2024 3:21 PM ENERGY PROFESSIONAL 04/13/2024 3:25 PM ENERGY PROFESSIONAL [facility] - HEMATOLOGY ORD ERABLES [facility] [address] [place] [address] documented in this encounter Visit Diagnoses Not on filedocumented in this encounter Care Teams Loss Prevention Research Engineer Relationship Specialty Start Date End Date Carlos Moran MD PCP - General Internal Medicine 04/24/17 documented as of this encounter
--- OUTSIDE RECORDS SUMMARY | 2024-07-19 14:57 | XMS_ITS | Clinical Summary ---
Author Organization [facility] Address [address] [place] [address] Phone Care Team Providers Care Senior Ecologist Name Role Phone Mark De Los Santos MD Unavailable Unavailable Rand Tsang MD Unavailable [phone] Sohail Gould MD Primary Care Provider [phone] Allergies Active Allergy Reactions Criticality Noted Date [...] Polyneuropathy associated with underlying diseas e 10/24/2019 'Ywfey-uib-ysund' with signs of mal nutrition 02/02/2019 Pulmonary [...] Years Used Date Smoking Tobacco: Former Cigarettes [id number] Smokeless Tobacco: Never Tobacco Cessation:Counseling Given: [...] 80 08/06/2020 8:25 AM CDT Temperature 36 C (96.8 F) 08/06/2020 8:25 AM CDT Respiratory Rate 20 04/22/2020 9:49 AM RELATIONSHIP ASSOCIATE Oxygen Saturation 97% 08/06/2020 8:25 AM CDT [...] (COMPREHENSIVE METABOLIC PANEL) Today 04/23/2019 10:44 AM RELATIONSHIP ASSOCIATE Pulmonary hypertension (HCC) Hypertension, essential Type 2 [...] - 6.0 % 10/24/2019 12:53 PM CDT [facility] Est Average Glucose 168.6 mg/dL 10/24/2019 12:53 PM CDT [facility] Blood Venipuncture / Unknown 10/24/2019 10:30 AM CDT 10/24/2019 10:30 AM CDT Narrative [facility] - 10/24/2019 12:53 PM CDT HEMOGLOBIN A1C: DIABETIC PATIENTS: WELL-CONTROLLED: 6.2 - 7.0 INTERMEDIATE WELL-CONTROLLED: 7.0 - 9.0 POORLY-CONTROLLED: >9.0 us Carlos Moran MD CHEMISTRY ORDERABLES Holly leigh Result [facility] [address] [place] [address] * (ABNORMAL) CMP (COMPREHENSIVE METABOLIC PANEL) (04/23/2019 10:44 AM RELATIONSHIP ASSOCIATE) SODIUM 141 136 - 144 mmol/L 04/23/2019 12:52 PM RELATIONSHIP ASSOCIATE [facility] POTASSIUM 3.4(L) 3.5 - 5.1 mmol/L 04/23/2019 12:52 PM RELATIONSHIP ASSOCIATE [facility] CHLORIDE 102 100 - 110 mmol/L 04/23/2019 12:52 PM RELATIONSHIP ASSOCIATE [facility] CO2, VENOUS 26 22 - 32 mmol/L 04/23/2019 12:52 PM [facility] ANION GAP 16.4 8.0 - 20.0 mmol/L 04/23/2019 12:52 PM [facility] GLUCOSE 128(H) 70 - 99 mg/dL 04/23/2019 12:52 PM [facility] BUN 14 8 - 23 mg/dL 04/23/2019 12:52 PM [facility] CREATININE, BLOOD 1.01 0.80 - 1.30 mg/dL 04/23/2019 12:52 PM [facility] BUN/CREATININE RATIO 14 12 - 20 ratio 04/23/2019 12:52 PM [facility] TOTAL PROTEIN 7.4 6.0 - 8.3 g/dL 04/23/2019 12:52 PM [facility] ALBUMIN 3.9 3.5 - 5.2 g/dL 04/23/2019 12:52 PM [facility] Comment: The colormetric methods used for the determination of Albumin may lead to falsely elevated test results in patients suffering from renal failure or insufficiency due to interference with other proteins. A/G RATIO 1.1 1.0 - 2.0 04/23/2019 12:52 PM [facility] CALCIUM 8.9 8.9 - 10.3 mg/dL 04/23/2019 12:52 PM [facility] T BILI 0.3 <=1.2 mg/dL 04/23/2019 12:52 PM [facility] SGOT (AST) 16 <=40 U/L 04/23/2019 12:52 PM [facility] SGPT (ALT) 19 <=41 U/L 04/23/2019 12:52 PM [facility] ALKALINE PHOSPHATASE 102 40 - 130 U/L 04/23/2019 12:52 PM [facility] GFR, EST. NONAFRICAN >60 >=60 04/23/2019 12:52 PM [facility] GFR, EST. >60 >=60 12/23/2 019 12:52 PM RELATIONSHIP ASSOCIATE [facility] Comment: Creatinine Clearance is the preferred criteria for selecting drug dose adjustments in renally impaired patients. The GFR is provided as additional pertinent clinical information. GFR is reported in mL/min/1.73 sq m. Blood specimen (specimen) Venipuncture / Unknown 04/23/2019 10:44 AM RELATIONSHIP ASSOCIATE 04/23/2019 10:44 AM RELATIONSHIP ASSOCIATE Carlos Moran MD CHEMISTRY ORDERABLES Holly l Result Performing Organization Address City/[facility] Co de Phone Number [facility] [address] [place] [address] * (ABNORMAL) PSA DIAGNOSTIC,TOTAL (02/19/2019 10:38 AM CDT) PSA, TOTAL (PROSTATIC SPECIFIC ANTIGEN) 6.36(H) <=4.00 ng/mL 02/19/2019 1:24 PM CDT [facility] Blood specimen (specimen) Venipuncture / Unknown 02/19/2019 10:38 AM CDT 02/19/2019 12:34 PM CDT Narrative [facility] - 02/19/2019 1:24 PM CDT PSA NOTE: The PSA value should be used in conjunction with information available from clinical evaluation and other diagnostic procedures. Result [facility] Michelet Moran MD CHEMISTRY ORDERABLES Final Result Performing Organization Address City/[facility] Co de Phone Number [facility] [address] [place] [address] from Last 3 Months or Most Recently Relevant to Health Maintenance Insurance MEDICAID [place] MEDICARE C [employer] Care Teams Senior Ecologist Relationship Specialty Start Date End Date Sohail Gould MD [address] [place] [address] PCP - General Family Medicine 08/20/21 Mark De Los Santos MD Consulting Physician Urology 09/05/15 Rand Tsang MD Consulting Physician Dermatopathology 01/16/18
--- OUTSIDE RECORDS SUMMARY | 2024-07-19 14:57 | XMS_ITS | Encounter Summary ---
Author Organization [facility] Address [address] [place] [address] Care Team Providers Care Grease Renderer Name Role Phone Nicolas Jung MD Unavailable [phone] Louie Lomeli MD Unavailable Melchor Woodard MD Primary Care Provider [phone] Jairo Sparrow MD Unavailable [phone] Maria Eugenia Navarrete [facility] Unavailable [phone] Encounter Details Date Type Department Care Team (Late st Contact Info) Description 01/24/2023 Orders Only [facility] [address] [address] [address] [place] [address] Miah Rodrigues MA Pre-op testing [...] week 12/24/2021 How often do you attend [facility] or mosque services? Never 12/24/2021 Do you belong to any clubs o r organizations such as mormon groups, unions, fraternal or athletic groups, or [...] place to sleep or slept in a fpc (including now)? No 12/24/2021 Sex and Gender Information Value Date Recorded Sex Assigned at Not on file Legal Sex Male 12:23 AM STRIP MACHINE OPERATOR Gender Identity Not on file Sexual Orientation Not on file documented as of this encounter Functional Status documented as of this encounter Plan of [...] COVID: Suspected 06/12/2024 06/12/2024 06/12/2024 4:34 PM STRIP MACHINE OPERATOR documented as of this encounter Care Teams Grease Renderer Relationship Specialty Start Date End Date Melchor Woodard MD PCP - General Family Practice 07/30/22 Nicolas Jung MD Surgeon Orthopedic Surgery 08/05/21 Louie Lomeil MD Consulting Physician Cardiology 12/23/21 Jairo Sparrow MD [address] [place] [address] [address] [place] [address] Consulting Physician Neurology 12/14/22 Maria Eugenia Navarrete, [address] [place] [address] Pharmacist Pharmacy 03/12/24 03/12/24 documented as of this encounter
--- OUTSIDE RECORDS SUMMARY | 2024-07-19 14:57 | XMS_ITS | Continuity of Care Document ---
Author Organization [employer] [facility] Address [address] [place] [address] Phone Care Team Providers Care Architecture Department Chair Name Role Phone Vicky JOSE JUAN Kita [...] Diagnoses Date Provider Providers Copied on [facility]counter [facility], [address], [place], [place], [address], [place] tel:[phone] SEC Arnoldo ECKERT Professional No Information 3 Vicky JOSE JUAN Kita. [address], [address], [place], [place], [address], [place]. tel:[phone] [facility], [address], [place], [place], [address], [place] tel:[phone] SEC Arnoldo ECKERT Professional Complete Exam (chief complaint) Type 2 diab with mild nonp rtnop without mclr edema, r eyeCombined forms of age-related cataract, left eyePresence of intraocular lensDry eye syndrome of bilateral lacrimal glandsXT (exotropia) 3 Vicky OD Kita. [facility] [address], [address], [place], [place], [address], [place]. tel:[phone] Referring Provider: Kita Perry OD L, [facility] [address], [place], [address] . tel:[phone] [facility], [facility] [address], [place], [place], [address], [place] tel:[phone] SEC Arnoldo ECKERT Professional Cataract Evaluation (chief complaint) Pseudophakia of right eyeCombined forms of age-related cataract, left eyeXT (exotropia)Pt osis of both eyelids 0 1 Waqar Pace. [address], [facility] [address], [place], [place], [address], [place]. tel:[phone] Referring Provider: Sanjeev Barker, [address] [facility] [address], [place], [address] . tel:[phone] Office/outpa tient Visit, Est [facility], [facility] [address], [place], [place], [address], [place] tel:[phone] SEC Arnoldo ECKERT Professional WIE (chief complaint) Abrasion of right eyelid, initial encounterEdem a of right upper eyelid Oct-0 0 Waqar Pace. [address], [facility] [address], [place], [place], [address], [place]. tel:[phone] Referring Provider: Sanjeev Barker, [address], [place], [address] . tel:[phone] [facility], [address], [place], [place], [address], [place] tel:[phone] SEC Arnoldo ECKERT Professional 1 month s/p PCIOL (chief complaint) Post op visit 0 Juan F Lam. [address] [facility], [address], [place], [address], [place]. tel:[phone] Referring Provider: Sanjeev Barker, [address], [place], [address] . tel:[phone] Office/outpa tient Visit, Est [facility], [address], [place], [place], [address], [place] tel:[phone] SEC Arnoldo ECKERT Professional WIE (chief complaint) Allergic conjunctiviti s of both eyes 0 Waqar Pace. [address], [address], [place], [place], [address], [place]. tel:[phone] Referring Provider: Sanjeev Barker, [address], [place], [address] . tel:[phone] [facility], [address], [place], [place], [address], [place] tel:[phone] SEC Arnoldo ECKERT Professional 1 day s/p PCIOL (chief complaint) Post op visit 0 Waqar Pace. [address], [address], [place], [place], [address], [place]. tel:[phone] Referring Provider: Sanjeev Barker, [address], [place], [address] . tel:[phone] [facility], [address], [place], [place], [address], [place] tel:[phone] [facility] [place] No Information 0 Surprise Abelardo. [facility] [employer], [address], [place], [place], [address], . tel:[phone] Referring Provider: Sanjeev Barker, [address] [facility] [address], [place], [address] . tel:[phone] [facility], [address] [place], [place] [address] [address], [place], [place], [address], tel:[phone] SEC [place] No Information 0 Surprise Abelardo. [facility] [employer], [address], [place], [place], [address], [place]. tel:[phone] Referring Provider: Sanjeev Barker, [address], [place], [address] . tel:[phone] [facility], [address] [place] [address] [address], [place], [place], [address], tel:[phone] SEC Arnold[place] Professional Cataract evaluation (chief complaint) Post op visitCombined forms of age-related cataract, bilateral 0 Annemarie Abelardo. [facility] [employer], [address], [place], [place], [address], [place]. tel:[phone] Referring Provider: Sanjeev Barker, [address] [facility] [address], [place], [address] . tel:[phone] [facility], [facility] [employer] [address], [place], [place], [address], [place] tel:[phone] SEC [place] Professional Cataract evaluation (chief complaint) Post op visit 0-201 9 Annemarie Abelardo. [facility] [employer], [address], [place], [place], [address], . tel:[phone] Referring Provider: Sanjeev Barker, [address] [facility] [address], [place], [address] . tel:[phone] [facility], [address], [place], [place], [address], [place] tel:[phone] SEC Rebekah [place] 1 wk Pterygium excision po (chief complaint) Post op visit 9 Annemarie Zhou. [facility] [employer], [address], [place], [place], [address], [place]. tel:[phone] Referring Provider: Sanjeev Barker, [address] [facility] [address], [place], [address] . tel:[phone] [facility], [address] [employer] [address], [place], [place], [address], [place] tel:[phone] SEC [place] Pterygium excision (chief complaint) Post op visit 0 9 Annemarie Zhou. [facility] [employer], [address], [place], [place], [address], [place]. tel:[phone] Referring Provider: Sanjeev Barker, [address] [facility] [address], [place], [address] . tel:[phone] [facility], [address] [employer] [address] [employer] [address], [place], [place], [address], [place] tel:[phone] [facility] No Information 9 Annemarie Zohu. [facility] [employer], [address], [place], [place], [address], [place]. tel:[phone] Referring Provider: Sanjeev Barker, [address] [facility] [address], [place], [address] . tel:[phone] Office/outpa tient Visit, Est [facility], [address] [employer] [address] [employer] [address], [place], [place], [address], [place] tel:[phone] SEC [place] Professional pterygium and cataract (chief complaint) Peripheral pterygium, progressive, left eyeCombined forms of age-related cataract, bilateral Oct- 9 Annemarie Zhou. [address], [address], [place], [place], [address], [place]. tel:[phone] Referring Provider: Sanjeev Barker, [address] [facility] [address], [place], [address] . tel:[phone] [facility], [address], [place], [place], [address], [place] [phone] SEC [place] Professional Complete Exam (chief complaint) Age-related nuclear cataract, bilateralPter ygium of left eyeAllergic conjunctiviti s of both eyes 9 Waqar Pace. [address] [facility], [facility] [address], [place], [place], [address], [place]. tel:[phone] Referring Provider: Sanjeev Barker, [address] [facility] [address], [place], [address] . tel:[phone] [facility], [address], [place], [place], [address], [place] [phone] SEC [place] No Information 9 Asha JOSE JUAN Destiny. [address] [facility], [facility] [address], [place], [address], . tel:[phone] Family History Family Member Type Diagnosis Age At Onset Problem (finding) Family history of Diabe prakash mellitus Payers Payer name Insurance type Covered alliance party ID Authoriza tion(s) AAR Medicare Complete [place] [id number] [place] [id number] Social History Type Description Quantity Date Captured [...]
--- OUTSIDE RECORDS SUMMARY | 2024-07-19 14:57 | XMS_ITS | Clinical Summary ---
Author Organization [facility] Address [address] [place] [address] Care Team Providers Care Remote Broadcast Engineer Name Role Phone Melchor Woodard MD Primary Care Provider [phone] Allergies Active Allergy Reactions Criticality Noted Date Comments Ceftriaxone Nausea and Vomiting Low 09/23/2021 Brlwvpg-Dqn-Gzl Reductase Inhibitors Other (See Comments) Low 01/26/2018 [...] 66 09/28/2022 3:22 PM CDT Temperature 36.8 C (98.2 F) 09/28/2022 3:22 PM CDT Respiratory Rate 10 09/28/2022 3:22 PM CDT [...] 03/18/2020, 02/02/2019, Additional history exists COVID-19 Vaccine (4 - 2023-2 5 season) 2024 03/25/2021, 07/08/2020, 06/10/2020 DIABETES HBA1C Q 6 MONTHS 10/12/2024 04/13/2024, DTAP/TDAP/TD VACCINES (3 - T d or Tdap) 02/12/2030 02/13/2020, 12/11/2015 PNEUMOCOCCAL VACCINE 50+ YEARS Completed 09/27/2017 , 03/12/2016 ZOSTER VACCINE Completed 03/19/2020, 11/2018, 03/27/[address] [place] [id number] Care Teams Remote Broadcast Engineer Relationship Specialty Start Date End Date Melchor Woodard MD PCP - General Family Practice 09/28/22
--- OUTSIDE RECORDS SUMMARY | 2024-07-19 14:58 | XMS_ITS | Clinical Summary ---
Author Organization [facility] [address] [facility] Address [address] [place] [address] Care Team Providers Care Welfare Adviser Name Role Phone Nicolas Jung MD Unavailable Louie Lomeli MD Unavailable [phone] Melchor Woodard MD Primary Care Provider [phone] Jairo Sparrow MD Unavailable [phone] Allergies Active Allergy Reactions Criticality Noted Date Comments Ceftriaxone Nausea only Low 09/23/2021 Ughdzsj-Cyh-Ayy Reductase Inhibitors Other (See comments) Low 01/26/2018 Generalized pain Medications losartan (COZAAR) 25 mg tablet Take 1 tablet (25 mg total) by mouth daily 07/29/19 23 Active metoprolol XL (TOPROL-XL) 50 mg extended release tablet Take 1 tablet (50 mg total) by mouth daily 30 tablet 3 11/01/19 23 Active levothyroxine (SYNTHROID) 50 mcg tablet Take 1 tablet (50 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 Active hydroCHLOROthia zide (HYDRODIURIL) 25 mg tablet Take 2 tablets (50 mg total) by mouth daily Active aspirin 81 mg enteric coated tablet Take 1 tablet (81 mg total) by mouth daily Not sure if he takes 30 tablet 11 09/02/19 24 025 Active gabapentin (NEURONTIN) 100 mg capsuleIndicati ons:Diabetic Peripheral Neuropathy Take 2 capsules (200 mg total) by mouth 3 (three) times a day 180 capsule 09/02/19 24 Active Additional Information Patient taking differently: 100 mgoral 3 times daily, Indications: Diabetic Peripheral Neuropathy, Reported on 04/04/2024 isosorbide mononitrate ER (IMDUR) 30 mg 24 hr tablet Take 1 tablet (30 mg total) by mouth daily 30 tablet 11 09/20/19 24 025 Active nitroglycerin (NITROSTAT) 0.[address] 1 tablet (0.4 mg total) under the tongue every 5 (five) minutes as needed for chest pain May repeat dose q 5 min, up to 3 doses total 90 tablet 1 09/20/19 24 025 Active amLODIPine (NORVASC) 10 mg tablet TAKE 1 TABLET (10 MG TOTAL) BY MOUTH DAILY 90 tablet 3 11/04/19 24 025 Active meclizine (ANTIVERT) 12.5 mg tablet Take 1 tablet (12.5 mg total) by mouth 3 (three) times a day as needed for dizziness 30 tablet 12/31/19 24 Active methocarbamoL (ROBAXIN) 500 mg tablet Take 1 tablet (500 mg total) by mouth 2 (two) times a day 20 tablet 02/28/20 24 Active diclofenac sodium (VOLTAREN) 1 % gel Apply 2 g topically 4 (four) times a day 30 g 1 04/10/20 24 Active meloxicam (MOBIC) 7.5 mg tablet Take 1 tablet (7.5 mg total) by mouth 2 (two) times a day with meals for 14 days 28 tablet 04/10/20 24 Active traMADoL (ULTRAM) 50 mg tablet Take 1 tablet (50 mg total) by mouth every 6 (six) hours as needed for pain 21 tablet 06/12/19 25 Active clopidogreL (PLAVIX) 75 mg tablet TAKE 1 TABLET (75 MG TOTAL) BY MOUTH DAILY. NEED TO SCHEDULE APPOINTMENT 60 tablet 06/25/19 25 Active ezetimibe (ZETIA) 10 mg tabletIndicatio ns:hyperlipidem ia TAKE 1 TABLET (10 MG TOTAL) BY MOUTH DAILY 30 tablet 11 06/27/19 25 026 Active ezetimibe (ZETIA) 10 mg tabletIndicatio ns:hyperlipidem ia TAKE 1 TABLET (10 MG TOTAL) BY MOUTH DAILY 30 tablet 11 03/28/20 23 025 Discontinued clopidogreL (PLAVIX) 75 mg tablet Take 1 tablet (75 mg total) by mouth daily 60 tablet 03/06/20 24 025 Discontinued Active Problems Problem Noted Date Diagnosed Date [...] 06/01/2022 Assessment & Plan (06/01/2022 3:29 PM GEOMORPHOLOGIST): Worsening, patient reports symptoms are worse 1st thing in the morning, has to clean eyes before can open; fewer symptoms throughout the day; most consistent with allergic conjunctivitis Start azelastine eyedrops Diabetic neuropathy, type II diabetes mellitus 0 05/27/2022 LALITO (acute kidney injury) 03/10/2022 Obesity (BMI 30-39.9) 03/10/2022 Other chest pain 03/09/2022 Assessment & Plan (06/01/2022 3:28 PM GEOMORPHOLOGIST): Continues to have episodes of chest pain, started in nature; can radiate to right-side of chest Patient reports some relief with ASA; has nitroglycerin Will continue to monitor; if negative cardio workup, consider esophageal spasms of source of pain Assessment & Plan (04/06/2022 11:47 AM GEOMORPHOLOGIST): Reports pressure-like chest pain today, worsening fatigue [...] (12/29/2021): Added automatically from request for surgery [id number] Leukocytosis 12/19/2021 UTI (urinary tract infection) 12/19/2021 Coronary artery disease 12/18/2021 Overview (12/18/2021): Added automatically from request for surgery [id number] Assessment & Plan (03/07/2022 9:41 AM GEOMORPHOLOGIST): Not well controlled, patient had stopped taking all medications, had elevated blood pressures today Encouraged patient to continue medications as prescribed Continue Brilinta 90 mg b.i.d., Zetia 10 mg daily Hypertensive crisis 12/16/2021 Assessment & Plan (12/17/2021 12:13 PM CDT): Present on admission, received Labetalol iv, currently resolved NSTEMI (non-ST elevated myocardial infarction) 0 12/16/2021 Overview (12/17/2021): Added automatically from request for surgery [id number] Assessment & Plan (01/10/2022 9:21 PM CDT): [...] Nasal saline spray (Simply saline, [employer] Remedies, [place], [place]) 2 second sprays or 2 squeezes into [...] (11/18/2020): Added automatically from request for surgery [id number] Assessment & Plan (03/20/2021 4:30 PM GEOMORPHOLOGIST): Stable, patient waiting on improved A1c for surgical clearance; will continue to monitor, continue with home exercise program, and will discuss case with Orthopedic surgery Assessment & Plan (01/19/2021 12:45 PM CDT): Scheduled for arthroscopy of left knee; has pain in both knees but left is worse, causing worsening bouts Continue to monitor; Acute medial meniscus tear of left knee 11/19/19 21 Overview (11/18/2020): Added automatically from request for surgery [id number] Scar of vermilion border of upper lip 07/04/2020 Overview (07/04/2020): Referral to plastic surgery for evaluation and possible affects scar tissue Cicatrix 07/04/2020 Tension headache 06/30/2020 Assessment & Plan (06/25/2021 10:33 AM GEOMORPHOLOGIST): Patient has recurrent left-sided tension headaches; likely secondary to pressure on muscles from lipoma Assessment & Plan (06/09/2021 1:59 PM GEOMORPHOLOGIST): Patient has headache for the last 4-6 [...] nostril Assessment & Plan (06/30/2020 12:31 PM GEOMORPHOLOGIST): Patient has severe left sided headache; reports worsened with looking down or leaning back in bed; may be related to sinuses vs tension type headache -given congestion may consider sinus pressure and will refer to ENT Chronic midline low back pain without sciatica 0 06/30/2020 Assessment & Plan (06/30/2020 12:33 PM GEOMORPHOLOGIST): Not well controlled; likely worsened due to poor core strength; encouraged weight loss to reduce strain on lower back (has severe central adiposity) Will give patient core exercises to strengthen low back and abodmen Lipoma of neck 06/25/2020 Assessment & Plan (06/25/2021 10:32 AM GEOMORPHOLOGIST): Not well controlled, patient has left-sided tension style headaches, S with noted changing position of head due to size of lipoma Patient benefit from surgical removal to help improve overall posture as well as potentially improved tension headaches Assessment & Plan (05/14/2021 1:29 PM GEOMORPHOLOGIST): Patient has large lipoma on back left-sided neck; reports left-sided headaches, which may be contributed by lipoma putting pressure on muscles sugar causing tension headaches Referral to Plastic surgery for removal Assessment & Plan (03/20/2021 4:29 PM GEOMORPHOLOGIST): Stable, Impacts patient ability to turn had; will continue monitor refer to surgery when appropriate Primary osteoarthritis of left knee 05/08/2020 Assessment & Plan (11/17/2021 3:53 PM CDT): Continues to have significant pain, has some symptom improvement, but limited range of motion and pain with movement Recent steroid injection Follow-up with orthopedics Assessment & Plan (04/21/2021 2:52 PM GEOMORPHOLOGIST): Stable, continues with physical therapy which is [...] monitor Assessment & Plan (05/14/2021 1:29 PM GEOMORPHOLOGIST): Improving, patient has walked about 12 lb since last visit; encouraged continued dietary changes, decreasing in take through portion control as well as lowering carbohydrate intake Encourage daily activity of 30 minutes of moderate intensity aerobic exercise daily Assessment & Plan (03/20/2021 4:29 PM GEOMORPHOLOGIST): Weight is stable, no significant change; patient [...] week Assessment & Plan (05/05/2020 3:33 PM GEOMORPHOLOGIST): Not well controlled, patient reports weight loss [...] daily Assessment & Plan (06/25/2021 10:31 AM GEOMORPHOLOGIST): Stable, unclear control, patient reports inconsistent medications use Continue levothyroxine 50 mcg daily, check TSH today Assessment & Plan (04/21/2021 2:52 PM GEOMORPHOLOGIST): Stable, well controlled; continue levothyroxine 50 mcg daily Assessment & Plan (03/20/2021 4:28 PM GEOMORPHOLOGIST): Stable, well controlled; continue levothyroxine 50 mcg daily Assessment & Plan (09/24/2020 3:00 PM CDT): Recheck TSH today as previous TSH was mildly elevated, is still elevated will adjust levothyroxine given patient has complaints of generalized fatigue Assessment & Plan (06/16/2020 9:09 AM GEOMORPHOLOGIST): Will recheck thyroid now that has been on medication for ~6 weeks Assessment & Plan (05/05/2020 3:36 PM GEOMORPHOLOGIST): Mild elevation of TSH, patient has multiple symptoms including inability to lose weight, chronic fatigue and chronic tiredness Will start at low dose levothyroxine 25 mcg, will recheck TSH in approximately 6 weeks Arthritis 03/24/2020 DM2 (diabetes mellitus, type 2) 03/24/2020 Assessment & Plan (06/01/2022 3:30 PM GEOMORPHOLOGIST): Not well controlled, A1c has always been [...] diet Assessment & Plan (06/25/2021 10:31 AM GEOMORPHOLOGIST): Stable, improving; patient A1c has been down trending to 7.5 last time, recheck A1c today Continue metformin XR 1000 mg daily Assessment & Plan (05/14/2021 1:28 PM GEOMORPHOLOGIST): Stable, improving; last A1c was decreasing to 7.5 Encouraged patient to continue with low-carbohydrate diet; encourage education dietary changes as well as regular exercise Continue metformin 1000 mg daily Assessment & Plan (04/21/2021 2:52 PM GEOMORPHOLOGIST): Stable, improving; patient reports he has been working on decreasing carbohydrates Has a decreased appetite well on Rybelsuswith minimal side effects Continue metformin 1000 mg daily with breakfast, Rybelsus 7 mg prior to breakfast Continue to monitor encourage continued decreased carbohydrate diet Recheck labs at follow-up appointment Assessment & Plan (03/20/2021 4:28 PM GEOMORPHOLOGIST): Stable, well controlled, improving Patient reports improved [...] diet Assessment & Plan (05/05/2020 3:32 PM GEOMORPHOLOGIST): Not well controlled, A1c is 7.7 today [...] strength Assessment & Plan (03/26/2020 12:24 PM GEOMORPHOLOGIST): Will check blood sugars and A1c to evaluate for control of diabetes on metformin Hyperlipidemia 03/24/2020 Assessment & Plan (12/17/2021 12:16 PM CDT): Pt is not on a statin due to intolerance LDL is 107. Started on Zetia per cardiology. Assessment & Plan (10/13/2021 2:34 PM CDT): Not well controlled, encouraged continued dietary changes and weight loss Assessment & Plan (05/14/2021 1:28 PM GEOMORPHOLOGIST): Not well controlled, patient cannot tolerate statins; encouraged dietary changes order reduce cholesterol through low-fat high-fiber diet Assessment & Plan (05/05/2020 3:35 PM GEOMORPHOLOGIST): Poorly controlled patient has elevated total and LDL cholesterol with knee depressed HDL cholesterol Triglycerides are also elevated at 254 Patient is unable to tolerate statin therapy due to muscular pain of thigh muscles Will encouraged diet and exercise as ways to maintain and modify cholesterol level Hypertension, essential 03/24/2020 Assessment & Plan (06/01/2022 3:30 PM GEOMORPHOLOGIST): Stable, improving; blood pressure today in clinic was normal; patient reports home measurements are improving Continue amlodipine 10 mg daily, hydralazine 25 mg b.i.d., metoprolol 100 mg daily Losartan was previously on medication list, but not part of pharmacy was Given blood pressures appropriate, will continue to monitor, can rehab losartan if blood pressure increases Assessment & Plan (04/06/2022 11:47 AM GEOMORPHOLOGIST): Stable, improving; most recent blood pressure was at target Continue losartan 100 mg daily, metoprolol 100 mg daily, amlodipine 10 mg daily Assessment & Plan (03/07/2022 9:40 AM GEOMORPHOLOGIST): Not well controlled; patient reports that he [...] daily Assessment & Plan (06/25/2021 10:30 AM GEOMORPHOLOGIST): Not well controlled; blood pressure is elevated this morning prior to surgery, elevated again in office Given blood pressure was just normal on 06/09/2021, will increase lisinopril to 40 mg daily Encouraged patient to consistently take medications, with no missed or skipped doses Assessment & Plan (05/14/2021 1:27 PM GEOMORPHOLOGIST): Not well controlled, blood pressure remains elevated; patient has been inconsistent with taking medications Will continue lisinopril 20 mg, follow-up at next appointment; if blood pressure still is elevated will adjust medication Assessment & Plan (03/20/2021 4:27 PM GEOMORPHOLOGIST): Stable well controlled; blood pressure a target; [...] needed Assessment & Plan (05/05/2020 3:34 PM GEOMORPHOLOGIST): Well controlled, patient's blood pressure is at target today Will continue with current therapies and continue to monitor patient Assessment & Plan (03/26/2020 12:24 PM GEOMORPHOLOGIST): Stable well controlled, continue present management Post-traumatic [...] arthroscopy Assessment & Plan (06/16/2020 9:09 AM GEOMORPHOLOGIST): Not well controlled, had relief with cortisone injection, but now has worsening pain; relief last for about 3-4 weeks -has some instability of patella, able to 'adjust' patella to relieve pain and improve ROM Assessment & Plan (05/05/2020 3:34 PM GEOMORPHOLOGIST): Stable, not controlled Patient is not able to consistently place weight on the Patient to follow-up with orthopedics further evaluation, based on recommendations may refer to physical therapy Assessment & Plan (03/26/2020 12:24 PM GEOMORPHOLOGIST): Will start treatment with diclofenac cream, and use of the triamcinolone as necessary If needed will refer to physical therapy for further improvement in pain Polyneuropathy associated with underlying diseas e ([facility]) 10/24/2019 Assessment & Plan (04/06/2022 11:44 AM GEOMORPHOLOGIST): Continues to have numbness and weakness in bilateral legs; patient scheduled nerve conduction study Continue gabapentin 100 mg TID Continue with exercise, and strength training; noted to have decreased strength in hip flexors; normal with knee -if EMG is normal, consider CK or evaluation of polymyalgia or polymysitis Assessment & Plan (05/05/2020 3:34 PM GEOMORPHOLOGIST): Patient has episodes of decreased balance due [...] management Assessment & Plan (06/25/2021 10:32 AM GEOMORPHOLOGIST): Not well controlled, patient continues to have frequent nighttime urination; encouraged patient to continue follow-up with Urology and reschedule surgery Continue myrbetriq 50 mg daily Assessment & Plan (03/20/2021 4:30 PM GEOMORPHOLOGIST): Patient continues to have increased urinary frequency, [...] Encounters Date Type Department Care Team Description 07/10/2024 Telephone [facility] [address] [place] [address] Nicolas Jung MD 06/12/2024 12:26 PM GEOMORPHOLOGIST - 06/12/2024 7:11 PM GEOMORPHOLOGIST Emergency [facility] Emergency Department [address] [place] [address] Ovi Villalobos MD Osteoarthritis of left hip, unspecified osteoarthritis type (Primary Dx) Discharge Disposition: Discharge to home or self care 05/31/2024 Telephone [facility] [address] [place] [address] Jairo Sparrow MD 05/01/2024 3:00 PM GEOMORPHOLOGIST Office Visit [facility] [address] [place] [address] Karen Christopher NP Primary osteoarthritis of left knee (Primary Dx); Left foot pain from Last 3 Months Immunizations Immunization Administration Dates Next Due Influenza, Quadrivalent, Hig [...] materials from doctor or pharmacy Sometimes 01/17/2024 [facility] Utilities Answer Date Recorded In the past [...] often do you attend chur ch or yazdanism services? Never 04/05/2024 Do you belong to any clubs o r organizations such as uatsdin groups, unions, fraternal or athletic groups, or [...] place to sleep or slept in a fdc (including now)? No 08/29/2023 Housing Stability Vital [...] time in the past 12 m [facility], were you homeless or living in a fdc (including now)? No 04/05/2024 Personal Safety Answer Date Recorded Have you ever been in or are you currently in a harmful physical or emotional relationship or is someone making you feel afraid or unsafe? Denies 06/12/2024 Education Answer Date Recorded What is the highest level of school you have completed or the highest degree you have received? Some college, no degree 08/29/2023 Sex and Gender Information Value Date Recorded Sex Assigned at Not on file Legal Sex Male 12:23 AM GEOMORPHOLOGIST Gender Identity Not on file Sexual Orientation Not on file Obstetrics History Last Filed Vital Signs Vital Sign Reading Time Taken Comments Blood Pressure 148/68 06/12/2024 6:04 PM GEOMORPHOLOGIST Pulse 64 06/12/2024 6:04 PM GEOMORPHOLOGIST Temperature 37 C (98.6 F) 06/12/2024 6:04 PM GEOMORPHOLOGIST Respiratory Rate 20 06/12/2024 6:04 PM GEOMORPHOLOGIST Oxygen Saturation 100% 06/12/2024 6:04 PM GEOMORPHOLOGIST Inhaled Oxygen Concentration - - Weight 121.1 kg (267 lb) 06/12/2024 12:34 PM GEOMORPHOLOGIST Height 177.8 cm (5' 10 ) 06/12/2024 12:34 PM GEOMORPHOLOGIST Body Mass Index 38.31 06/12/2024 12:34 PM GEOMORPHOLOGIST Plan of Treatment Health Maintenance Due Date Last Done Comments Hepatitis C Screening 1950 Dilated Eye Exam 1952 Hepatitis B Screening 1970 Well Visit 65+ 2017 Albumin Creatinine Ratio, Urine 10/28/2022 Foot Exam 10/28/2022 10/28/2021 Colon Cancer Screening-DNA Stool 12/01/2023 12/01/19 21 Covid-19 Vaccine (2023-2 5 season) 2024 03/25/2021, 07/08/2020, 06/10/2020 Influenza Vaccine (#1) 2024 , 03/19/2020, 03/18/2020, Additional history exists Depression Screening 08/27/2024 08/28/2023, 05/27/2022, 03/09/2022, Additional history exists Hemoglobin A1C 10/12/2024 04/13/2024, 08/02, 06/10/2023, Additional history exists Fall Risk Assessment 04/10/2025 04/10/2024, 01/05/2022, 10/07/2021, Additional history exists eGFR 04/10/2025 04/10/2024, 04/01, 04/09/2024, Additional history exists Lipid Panel 04/13/2025 04/13/2024, 08/01, 02/04/2023, Additional history exists DTaP/Tdap/Td Vaccine (3 - Td or Tdap) 02/12/2030 02/13/2020, 12/11/2015 Pneumococcal vaccine 65+ Completed 09/27/2017, 03/02 Zoster Vaccine Completed 03/19/2020, 11/2018, 03/27/2018 Prostate Cancer Screening-PSA Discontinued 10/28/2021 Medical Devices Implanted Type Area Associate Project Manager Device Identifier Shelf Expiration Date Model / Serial / Lot [employer] Daysi Synergy Xd Monorail 3.5mm 12mm 144cm Delivery System 1 Access [id number] - [id number] Implanted:Qty: 1 on 08/29/2023 by Louie Lomeli MD at [facility] Stent [employer] Days[employer] 10/19/2024 [id number] / / [id number] [employer] Stent Coronary De Rx Cocr Xience Skypoint [id number] - [id number] Implanted:Qty: 1 on 12/17/2021 by Louie Lomeli MD at [facility] [employer] 08/24/2023 [id number] [employer] Stent Coronary De Rx Cocr Xience Skypoint [id number] - [id number] Implanted:Qty: 1 on 12/17/2021 by Louie Lomeli MD at [facility] [employer] 08/28/2023 [id number] [employer] Daysi Synergy 3mm 16mm 144cm Radiopaque 1 Access Port Inflation Lumen [id number] - [id number] Implanted:Qty: 1 on 12/22/2021 by Louie Lomeli MD at [facility] [employer] Daysi 09/04/2022 [id number] / / [id number] [employer] Angio-Seal Vip 6fr Closere Device [id number] - [id number] Implanted:Qty: 1 on 12/22/2021 by Louie Lomeli MD at [facility] [employer] 09/29/2022 [id number] / [id number] Procedures Procedure Name Priority Date/Time Associated Diagnosis Comments CT HIP LEFT WO CONTRAST ED 06/12/2024 4:25 PM GEOMORPHOLOGIST URINALYSIS, MICROSCOPIC ONLY STAT 06/12/2024 3:30 PM GEOMORPHOLOGIST URINALYSIS AND REFLEX TO MICROSCOPIC AND CULTURE STAT 06/12/2024 3:30 PM GEOMORPHOLOGIST INFLUENZA A/B, RSV, AND COVID-19 PCR STAT 06/12/2024 3:30 PM GEOMORPHOLOGIST ECG 12-LEAD STAT 06/12/2024 3:23 PM GEOMORPHOLOGIST XR KNEE LEFT 3 VIEWS ED 06/12/2024 1:01 PM GEOMORPHOLOGIST XR HIP LEFT 2 OR 3 VIEWS ED 06/12/2024 1:01 PM GEOMORPHOLOGIST POCT GLUCOSE DEVICE Routine 06/12/2024 1 2:46 PM GEOMORPHOLOGIST RI ARTHROCENTESIS ASPIR&/INJ MAJOR JT/BURSA W/O US Routine 05/01/2024 3:00 PM GEOMORPHOLOGIST Primary osteoarthritis of left knee EGFR Timed 04/10/2024 12:05 AM GEOMORPHOLOGIST HEMOGLOBIN A1C Routine 08/30/2023 2:23 AM CDT LIPID PANEL Routine 08/28/2023 8:27 PM CDT ALBUMIN CREATININE RATIO, URINE Routine 10/28/2021 2:47 PM CDT Type 2 diabetes mellitus without complication, without long-term current use of insulin (HCC) PSA SCREEN Routine 10/28/2021 2:47 PM CDT Encounter for screening for lipid disorder STOOL DNA COLOGUARD Routine 11/30/2020 from Last 3 Months or Most Recently Relevant to Health Maintenance Results * CT Hip Left WO Contrast (06/12/2024 4:25 PM GEOMORPHOLOGIST) Anatomical Region Laterality Modality Lower Extremities Left Computed Tomog katherin 06/12/2024 4:36 PM GEOMORPHOLOGIST Narrative 06/12/2024 5:00 PM GEOMORPHOLOGIST EXAM DESCRIPTION: CT HIP LEFT WO CONTRAST REASON FOR STUDY: Hip pain, stress fracture suspected, neg xray Discomfort of the left foot, went to see his doctor, and had an steroid injection on the sole of the left foot. After the injection when he left the office, he started feeling weak, with discomfort of the left hip. He states that he fell on his left hip. Left hip pain. TECHNIQUE: CT scan of the left hip was performed without intravenous contrast. Reconstructed coronal and sagittal MPR images reviewed. Automated exposure control was used as a dose optimization technique for this examination. COMPARISON: Radiograph dated June 12, 2024 FINDINGS: Pelvic Bones: Incompletely visualized. No visible fracture. Hip Joint: No fracture or dislocation. Mild osteoarthritis. Pelvic Soft Tissues: Unremarkable. Other: No other finding. IMPRESSION: No acute osseous abnormality. Mild left hip osteoarthritis. THIS IS AN ELECTRONICALLY VERIFIED FINAL REPORT 06/12/2024 5:00 PM - Electronically signed by Gerard Armstrong M.D. JA: FLAQUITA Report ID: [id number] Reading Location: [id number] Procedure Note Gerard Armstrong MD - 06/12/2024 EXAM DESCRIPTION: CT HIP LEFT WO CONTRAST REASON FOR STUDY: Hip pain, stress fracture suspected, neg xray Discomfort of the left foot, went to see his doctor, and had an steroid injection on the sole of the left foot. After the injection when he leftthe office, he started feeling weak, with discomfort of the left hip. Hestates that he fell on his left hip. Left hip pain. TECHNIQUE: CT scan of the left hip was performed without intravenous contrast. Reconstructed coronal and sagittal MPR images reviewed.Automated exposure control was used as a dose optimization technique for this examination. COMPARISON: Radiograph dated June 12, 2024 FINDINGS: Pelvic Bones: Incompletely visualized. No visible fracture. Hip Joint: No fracture or dislocation. Mild osteoarthritis. Pelvic Soft Tissues: Unremarkable. Other: No other finding. IMPRESSION: No acute osseous abnormality. Mild left hip osteoarthritis. THIS IS AN ELECTRONICALLY VERIFIED FINAL REPORT 06/12/2024 5:00 PM - Electronically signed by Gerard Armstrong M.D. JA: FLAQUITA Report ID: [id number] Reading Location: [id number] Ovi Villalobos MD IMG CT PROCEDURES Final Resu lt * Influenza A/B, RSV, and COVID-19 PCR Nasopharyngeal (06/12/2024 3:30 PM GEOMORPHOLOGIST) COVID-19 RNA Negative Negative Influenza A RNA Negative Negative [facility] ([place]) Influenza B RNA Negative Negative [facility] ([place]) RSV RNA Negative Negative [facility] ([place]) Comment: Interpretive data: Testing performed by [facility]. This test is performed using the [employer] Xpert Xpress CoV-2/Flu/RSV plus assay. This is a multiplex, real- time reverse transcriptase PCR assay intended for the qualitative detection of nucleic acid from SARS-CoV-2, influenza A, influenza B, and respiratory syncytial virus. This assay has been cleared by the [place] Food and Drug administration. The performance characteristics have been verified by the [facility]. Results must be considered in the clinical context, and a negative result does not rule out infection. Interpretive Data last revised 2023 Nasopharyngeal 06/12/2024 3: 30 PM GEOMORPHOLOGIST 06/12/2024 3:47 PM GEOMORPHOLOGIST Narrative [facility] ([place]) - 06/12/2024 4:33 PM GEOMORPHOLOGIST Is the Patient experiencing symptoms consistent with COVID?->Unknown Ovi Villalobos MD LAB MICROBIOLOGY - GENERAL O RDERABLES Final Result [facility] ([place]) 1 [facility] Department [place] [address] * (ABNORMAL) Urinalysis reflex to microscopic and culture Urine (06/12/2024 3:30 PM GEOMORPHOLOGIST) Color, ur Yellow Yellow Clarity, ur Clear Clear JULIETA [facility] ([place]) Specific gravity, ur 1.021 1.003 - 1.030 [facility] ([place]) pH, urine 6.0 [facility] ([place]) Comment: Interpretive Data U rine pH is affected by diet, medications, systemic acid-base disturbances, and renal tubular function. pH may affect urinary stone formation. For example, urine pH below 6.0 may help reduce the tendency for calcium phosphate stones and pH greater than 6.0 may reduce the tendency for uric acid stone formation. Source: [facility] SHEEX Current Interpretive Data was last revised on 2017 Protein, ur ql 1+(A) Negative [facility] ([place]) Glucose, ur ql 4+(A) Negative [facility] ([place]) Ketones, ur Negative Negative [facility] ([place]) Bilirubin, ur Negative Negative [facility] ([place]) Blood, ur Trace(A) Negative [facility] ([place]) Urobilinogen, ur <2.0 <2.0 mg/dL [facility] ([place]) Nitrite, ur Negative Negative [facility] ([place]) Leukocyte esterase, ur Negative Negative [facility] ([place]) UA reflex comment Reflex to microscopic UA will be performed. [facility] ([place]) Urine 06/12/2024 3:30 PM GEOMORPHOLOGIST 06/12/2024 3:46 PM GEOMORPHOLOGIST Ovi Villalobos MD LAB MICROBIOLOGY - GENERAL O RDERABLES Final Result [facility] ([place]) 1 [facility] Department [place] [address] * Urinalysis, microscopic only (06/12/2024 3:30 PM GEOMORPHOLOGIST) WBC, ur 0-5 0 - 5 /HPF RBC, ur 0-2 0 - 2 /HPF [facility] ([place]) Epithelial cells, squamous, ur 1-5 0 - 5 /HPF [facility] ([place]) Culture Reflex Comment Reflex conditions for urine culture (WBC >10) not met. [facility] ([place]) Urine 06/12/2024 3:30 PM GEOMORPHOLOGIST 06/12/2024 3:46 PM GEOMORPHOLOGIST Ovi Villalobos MD LAB URINE ORDERABLES Final R esult JULIETA [facility] ([place]) 1 [facility] Department [place] [address] * ECG 12 lead (06/12/2024 3:23 PM GEOMORPHOLOGIST) 06/12/2024 3:23 PM GEOMORPHOLOGIST Narrative [facility] - 06/12/2024 5:06 PM GEOMORPHOLOGIST Vent Rate: 61 bpm RR Interval: 982 msec RI Interval: 0 msec QRS Duration: 109 msec QT Interval: 458 msec QTC Interval: 460 msec P-R-T [place]: [id number] - -24 - 119 degrees IMPRESSION: SUPRAVENTRICULAR RHYTHM, probably sinus BORDERLINE LEFT AXIS DEVIATION [QRS AXIS < -20] LEFT VENTRICULAR HYPERTROPHY AND ST-T CHANGE [VOLTAGE CRITERIA PLUS ST/T ABNORMALITY] ABNORMAL ECG Recommend repeat EKG with stable baseline for accurate rhythm assessment Electronically Signed By: Juarez Thornton MD Ovi Villalobos MD ECG ORDERABLES Final Result Performing Organization Address [facility] Co de Phone Number [employer] [facility] * XR Knee Left 3 Views (06/12/2024 1:01 PM GEOMORPHOLOGIST) Anatomical Region Laterality Modality Lower Extremities, Knee Left Computed Radiography 06/12/2024 1:23 PM GEOMORPHOLOGIST Narrative 06/12/2024 1:27 PM GEOMORPHOLOGIST EXAM DESCRIPTION: XR KNEE LEFT 3 VIEWS REASON FOR STUDY: Other (complete free text reason below), fall Pt [facility] Per EMS Pt tripped yesterday while carrying in a box up stairs. Pt reports pain to left hip and left knee. Denies LOC or hitting his head. No shortening or rotation to the left leg. TECHNIQUE: Three views left knee. COMPARISON: None. FINDINGS: There is no acute fracture or dislocation. There is enthesopathic change of the superior inferior pole the patella and there is enthesopathic change of the tibial tuberosity. No fracture or dislocation. IMPRESSION: No acute osseous abnormality of the left knee. THIS IS AN ELECTRONICALLY VERIFIED FINAL REPORT 06/12/2024 1:27 PM - Electronically signed by Justin Yip M.D. CH: CLIVE Report ID: [id number] Reading Location: [id number] Procedure Note Justin Yip Jr., MD - 06/12/2024 EXAM DESCRIPTION: XR KNEE LEFT 3 VIEWS REASON FOR STUDY: Other (complete free text reason below), fall Pt to ED via [facility]. Per EMS Pt tripped yesterday while carrying in abox up stairs. Pt reports pain to left hip and left knee. Denies LOC orhitting his head. No shortening or rotation to the left leg. TECHNIQUE: Three views left knee. COMPARISON: None. FINDINGS: There is no acute fracture or dislocation. There is enthesopathic changeof the superior inferior pole the patella and there is enthesopathic changeof the tibial tuberosity. No fracture or dislocation. IMPRESSION: No acute osseous abnormality of the left knee. THIS IS AN ELECTRONICALLY VERIFIED FINAL REPORT 06/12/2024 1:27 PM - Electronically signed by Justin Yip M.D. CH: CLIVE Report ID: [id number] Reading Location: [id number] Yaz Escobar MD IMG XR PROCEDURES F inal Result * XR Hip Left 2 or 3 Views (06/12/2024 1:01 PM GEOMORPHOLOGIST) Anatomical Region Laterality Modality Lower Extremities, Hip, Pelvis Left C omputed Radiography 06/12/2024 1:27 PM GEOMORPHOLOGIST Narrative 06/12/2024 1:28 PM GEOMORPHOLOGIST EXAM DESCRIPTION: XR HIP LEFT 2 OR 3 VIEWS REASON FOR STUDY: Pt to ED via [facility]. Per EMS Pt tripped yesterday while carrying in a box up stairs. Pt reports pain to left hip and left knee. Denies LOC or hitting his head. No shortening or rotation to the left leg. TECHNIQUE: Three views left hip. COMPARISON: 04/20/2022. FINDINGS: No acute fracture or dislocation. No erosion or aggressive osseous lesion. The obturator ring is intact. The pubic symphysis maintained. IMPRESSION: No acute osseous abnormality of the left hip. THIS IS AN ELECTRONICALLY VERIFIED FINAL REPORT 06/12/2024 1:28 PM - Electronically signed by Justin Yip M.D. CH: Report ID: [id number] Reading Location: [id number] Procedure Note Justin Yip Jr., MD - 06/12/2024 EXAM DESCRIPTION: XR HIP LEFT 2 OR 3 VIEWS REASON FOR STUDY: Pt to ED via [facility]. Per EMS Pt tripped yesterday while carrying in abox up stairs. Pt reports pain to left hip and left knee. Denies LOC orhitting his head. No shortening or rotation to the left leg. TECHNIQUE: Three views left hip. COMPARISON: 04/20/2022. FINDINGS: No acute fracture or dislocation. No erosion or aggressive osseouslesion. The obturator ring is intact. The pubic symphysis maintained. IMPRESSION: No acute osseous abnormality of the left hip. THIS IS AN ELECTRONICALLY VERIFIED FINAL REPORT 06/12/2024 1:28 PM - Electronically signed by Justin Yip M.D. CH: CLIVE Report ID: [id number] Reading Location: [id number] us Yaz Escobar MD IMG XR PROCEDURES F inal Result * POCT glucose (06/12/2024 12:46 PM GEOMORPHOLOGIST) Glucose, POC 170 70 - 199 mg/dL Blood 06/12/2024 12:4 6 PM GEOMORPHOLOGIST 06/12/2024 12:46 PM GEOMORPHOLOGIST us Notinfile Unknown LAB POCT ORDERABLES - DEVICE F inal Result JULIETA [facility] [place]) 1 [facility] Department [place] [address] * RI ARTHROCENTESIS ASPIR&/INJ MAJOR JT/BURSA W/O US (05/01/2024 3:00 PM GEOMORPHOLOGIST) Narrative Karen Christopher NP - 05/01/2024 3:00 PM GEOMORPHOLOGIST Karen Christopher NP 05/01/2024 1:31 PM Large Joint (Hip, Knee, Shoulder) Injection: L knee Performed by: Karen Christopher NP Authorized by: Karen Christopher NP Large Joint Injection/Aspiration: Consent Given by: Patient Site marked: the procedure site was marked Timeout: prior to procedure the correct patient, procedure, and site was verified Verbal consent obtained: Yes Supporting Documentation: Indications: Pain Procedure Details: Location: Knee Site: L knee Needle Size: 22 G Approach: Anterolateral Ultrasound guided: No Fluroscopic guidance: No Medications: 2 mL lidocaine 20 mg/mL (2 %); 32 mg triamcinolone acetonide extended release 32 mg Patient tolerance: Patient tolerated the procedure well with no immediate complications us Karen Christopher DIRECTOR OF MATERIALS IN CLINIC/BEDSIDE ORDER ALLEGRA Final Result * (ABNORMAL) eGFR (04/10/2024 12:05 AM GEOMORPHOLOGIST) eGFR 59(L) >=60 mL/min/1. 73 m2 Comment: Interpretive Data Reference Interval Normal >/= 90 mL/min/1.73m2 Mildly decreased* 60 - 89 mL/min/1.73m2 Mildly to moderately decreased 45 - 59 mL/min/1.73m2 Moderately to severely decreased 30 - 44 mL/min/1.73m2 Severely decreased 15 - 29 mL/min/1.73m2 Kidney Failure < 15 mL/min/1.73m2 *Relative to young adult level Estimated glomerular [...] reviewed 2021. Blood 04/10/2024 12:0 5 AM GEOMORPHOLOGIST 04/10/2024 12:14 AM GEOMORPHOLOGIST Krystal Araujo MD LAB BLOOD ORDERABLES Fi nal Result Performing Organization Address [facility] de Phone Number JULIETA [facility] ([place]) 1 [place] [address] * (ABNORMAL) Hemoglobin A1c (08/30/2023 2:23 AM CDT) Hgb A1C 6.3(H) 4.0 - 5.6 % Estimated Average Glucose 134 mg/dL JULIETA [facility] ([place]) Comment: The ADA recommends reporting an estimated Average Glucose (eAG) with all Hemoglobin A1c results using the equation derived from a study of 507 normal and diabetic adults. Minority populations were underrepresented and children were not included. (Diabetes Care 31:9692-8880, 2008). The eAG is not equivalent to a fasting glucose. Blood 08/30/2023 2:23 AM CDT 08/30/2023 12:50 PM CDT Destiny Devi NP LAB BLOOD ORDERABLES Final R esult Performing Organization Address [facility] Co de Phone Number JULIETA [facility] ([place]) 1 [facility] [place] [address] * (ABNORMAL) Lipid panel (08/28/2023 8:27 PM CDT) Cholesterol 149 30 - 199 mg/dL Comment: Interpretive Data Ages < or = 19 years Acceptable: <170 mg/dL Borderline high: 170-199 mg/dL High: >or= 200 mg/dL Ages > or = 20 years Desirable: <200 mg/dL Borderline high: 200-239 mg/dL High: >or= 240 mg/dL Literature References: 1. Expert Panel on Integrated Guidelines for Cardiovascular Health and Risk Reduction in Children and Adolescents. Pediatrics 2011;128:S213 2. NCEP Expert Panel. Circulation 2004;110:227 Current Interpretive Data was last revised on 2017. Triglycerides 229(H) <=149 mg/dL JULIETA [facility] ([place]) Comment: Interpretive Data Ages < or = 9 years Acceptable: <75 mg/dL Borderline high: 75-99 mg/dL High: >or= 100 mg/dL Ages 10 to 20 years Acceptable: <90 mg/dL Borderline high: 90-129 mg/dL High: >or= 130 mg/dL Ages > or = 20 years Desirable: <150 mg/dL Borderline high: 150-199 mg/dL High: 200-499 mg/dL Very high: >or= 499 mg/dL Literature References: 1. Expert Panel on Integrated Guidelines for Cardiovascular Health and Risk Reduction in Children and Adolescents. Pediatrics 2011;128:S213 2. NCEP Expert Panel. Circulation 2004;110:227 Current Interpretive Data was last revised on 2017. HDL 26(L) >=40 mg/dL [facility]A [facility] ([place]) Comment: Interpretive Data Ages < or = 19 years Acceptable: >45 mg/dL Borderline low: 40-45 mg/dL Low: <40 mg/dL Ages > or = 20 years Desirable: >or= 60 mg/dL Low: <40 mg/dL Literature References: 1. Expert Panel on Integrated Guidelines for Cardiovascular Health and Risk Reduction in Children and Adolescents. Pediatrics 2011;128:S213 2. NCEP Expert Panel. Circulation 2004;110:227 Current Interpretive Data was last revised on 2017. LDL, calculated 77 <=129 mg/dL J[facility]ETA [facility] ([place]) Comment: Interpretive Data Ages < or = 19 years Acceptable: <110 mg/dL Borderline high: 110-129 mg/dL High: >or= 130 mg/dL Ages > or = 20 years Optimal: <100 mg/dL Near optimal: 100-129 mg/dL Borderline high: 130-159 mg/dL High: >160 mg/dL Literature References: 1. Expert Panel on Integrated Guidelines for Cardiovascular Health and Risk Reduction in Children and Adolescents. Pediatrics 2011;128:S213 2. NCEP Expert Panel. Circulation 2004;110:227 Current Interpretive Data was last revised on 2017. Non-HDL Cholesterol 123 mg/dL JULIETA [facility] ([place]) Comment: Interpretive Data Ages < or = 19 years Acceptable: <120 mg/dL Borderline high: 120-144 mg/dL High: >145 mg/dL Ages > or = 20 years When triglycerides are >200 mg/dL, Non-HDL cholesterol is a secondary target of therapy with treatment goals that are 30 mg/dL greater than the LDL cholesterol target. Literature References: 1. Expert Panel on Integrated Guidelines for Cardiovascular Health and Risk Reduction in Children and Adolescents. Pediatrics 2011;128:S213 2. NCEP Expert Panel. Circulation 2004;110:227 Current Interpretive Data was last revised on 2017. Chol/HDL ratio 6 MARTINEZ [facility] ([place]) Blood 08/28/2023 8:27 PM CDT 08/28/2023 10:13 PM CDT us Jesus Payan MD LAB BLOOD ORDERABLES Final Re sult Performing Organization Address City/State/[facility] Co de Phone Number JULIETA [facility]ERO ([place]) 1 [facility] Department [place] [address] * PSA screen (10/28/2021 2:47 PM CDT) PSA-Total 3.15 <=5.40 ng/mL JULIETA [facility]ERO ([place]) Comment: Interpretive Data AGE SEX REFERENCE INTERVAL 0 minutes-150 years Female None 0 minutes-49 years Male None 50-59 years Male 0-3.90 60-69 years Male 0-5.40 70-79 years Male 0-6.20 80-150 years Male 0-6.20 The Erica PSA Total assay procedure was used. Results from different manufacturers or methods may not be comparable. Serial testing should be performed using the same method. Current interpretive data last revised 21. Testing performed by: [facility], [address] [place] [address], [place]., [address] Blood 10/28/2021 2:4 7 PM CDT 10/28/2021 7:50 PM CDT us Sohail Gould MD LAB BLOOD ORDERABLES Holly l Result Performing Organization Address [facility]/ZIP Co de Phone Number [facility] ([place]) 1 [facility] [place] [address] * (ABNORMAL) Albumin Creatinine Ratio, Urine (10/28/2021 2:47 PM CDT) Albumin Ur 713.6 mg/L [facility] ([place]) Comment: Interpretive Data No reference range established. Current interpretive data was last revised 2018. Testing performed by: [facility], [address] [place] [address]., [id number] Creatinine Ur 343.1 mg/dL [facility] ([place]) Comment: Interpretive Data No reference range established. Current interpretive data was last revised 2018. Testing performed by: [facility], [address] [place] [address]., [address] Albumin Creatinine Ratio, Ur 208(H) 1 - 29 mg/g [facility] ([place]) Comment:Testing performed by : [address], [address] Urine 10/28/2021 2:47 PM CDT 10/28/2021 9:10 PM CDT Sohail Gould MD LAB URINE ORDERABLES Holly l Result Performing Organization Address [facility] Co de Phone Number JULIETA [facility]ERRERO ([place]) 1 [facility] [place] [address] * Stool DNA - Cologuard (11/30/2020) Scribed Stool DNA - Cologuard Negative EXTERNAL LAB Stool Torri Provider LAB BODY FLUIDS AND STOOL S ORDERABLES Final Result Performing Organization Address [facility] Co de Phone Number EXTERNAL LAB from Last 3 Months or Most Recently Relevant to Health Maintenance Insurance [employer] [facility] MEDICARE ADVANTAGE [employer]PA [facility] MEDICARE ADVANTAGE [facility] MEDICARE ADVANTAGE [facility] MDCR HMO REF [employer]PA Advance Directives For more information, please contact: [phone] * Full Code (Latest Code Status on [...] 1:59 PM 02/05/2023 5:22 PM Care Teams Welfare Adviser Relationship Specialty Start Date End Date Melchor Woodard MD PCP - General Family Practice 07/30/22 Nicolas Jung MD Surgeon Orthopedic Surgery 08/05/21 Louie Lomeli MD Consulting Physician Cardiology 12/23/21 Jairo Sparrow MD [address] [place] [address] [place] [id number] Consulting Physician Neurology 12/14/22
--- OUTSIDE RECORDS SUMMARY | 2024-07-19 14:58 | XMS_ITS | Referral Summary ---
Author Organization [facility] [address] [facility] Address [address] [place] [address] Care Team Providers Care Ice Maker Name Role Phone Nicolas Jung MD Unavailable [phone] Louie Lomeli MD Unavailable [phone] Melchor Woodard MD Primary Care Provider [phone] Jairo Sparrow MD Unavailable [phone] Encounters Date Type Department Care Team Description 07/10/2024 Telephone [facility] Medical [facility] [address] [place] [address] [address] [place] [address] Nicolas Jung MD 06/12/2024 12:26 PM RETAIL SHIFT LEADER - 06/12/2024 7:11 PM RETAIL SHIFT LEADER Emergency [facility] Emergency Department [address] [place] [address] Ovi Villalobos MD Osteoarthritis of left hip, unspecified osteoarthritis type (Primary Dx) Discharge Disposition: Discharge to home or self care 05/31/2024 Telephone [facility] [address] [facility] [address] [place] [address] Jairo Sparrow MD 05/01/2024 3:00 PM RETAIL SHIFT LEADER Office Visit [facility] [address] [place] [address] [address] [place] [address] Karen Christopher NP Primary osteoarthritis of left knee (Primary Dx); Left foot pain from Last 3 Months Allergies Active Allergy Reactions Criticality Noted Date Comments Ceftriaxone Nausea only Low 09/23/2021 Dwthjrg-Tox-Jfg Reductase Inhibitors Other (See comments) Low 01/26/2018 Generalized pain Medications losartan (COZAAR) 25 mg tablet Take 1 tablet (25 mg total) by mouth daily 07/29/19 23 Active metoprolol XL (TOPROL-XL) 50 mg extended release tablet Take 1 tablet (50 mg total) by mouth daily 30 tablet 3 11/01/19 23 Active levothyroxine (SYNTHROID) 50 mcg tablet Take 1 tablet (50 mcg total) by mouth architecture analyst before breakfast Active hydroCHLOROthia zide (HYDRODIURIL) 25 [...] 06/01/2022 Assessment & Plan (06/01/2022 3:29 PM RETAIL SHIFT LEADER): Worsening, patient reports symptoms are worse 1st thing in the morning, has to clean eyes before can open; fewer symptoms throughout the day; most consistent with allergic conjunctivitis Start azelastine eyedrops Diabetic neuropathy, type II diabetes mellitus 0 05/27/2022 LALITO (acute kidney injury) 03/10/2022 Obesity (BMI 30-39.9) 03/10/2022 Other chest pain 03/09/2022 Assessment & Plan (06/01/2022 3:28 PM RETAIL SHIFT LEADER): Continues to have episodes of chest pain, started in nature; can radiate to right-side of chest Patient reports some relief with ASA; has nitroglycerin Will continue to monitor; if negative cardio workup, consider esophageal spasms of source of pain Assessment & Plan (04/06/2022 11:47 AM RETAIL SHIFT LEADER): Reports pressure-like chest pain today, worsening fatigue [...] (12/29/2021): Added automatically from request for surgery [id number] Leukocytosis 12/19/2021 UTI (urinary tract infection) 12/19/2021 Coronary artery disease 12/18/2021 Overview (12/18/2021): Added automatically from request for surgery [id number] Assessment & Plan (03/07/2022 9:41 AM RETAIL SHIFT LEADER): Not well controlled, patient had stopped taking all medications, had elevated blood pressures today Encouraged patient to continue medications as prescribed Continue Brilinta 90 mg b.i.d., Zetia 10 mg daily Hypertensive crisis 12/16/2021 Assessment & Plan (12/17/2021 12:13 PM CDT): Present on admission, received Labetalol iv, currently resolved NSTEMI (non-ST elevated myocardial infarction) 0 12/16/2021 Overview (12/17/2021): Added automatically from request for surgery [id number] Assessment & Plan (01/10/2022 9:21 PM CDT): [...] Nasal saline spray (Simply saline, Little Remedies, [place], [place]) 2 second sprays or 2 squeezes into [...] (11/18/2020): Added automatically from request for surgery [id number] Assessment & Plan (03/20/2021 4:30 PM RETAIL SHIFT LEADER): Stable, patient waiting on improved A1c for [...] (11/18/2020): Added automatically from request for surgery [id number] Scar of vermilion border of upper lip 07/04/2020 Overview (07/04/2020): Referral to plastic surgery for evaluation and possible affects scar tissue Cicatrix 07/04/2020 Tension headache 06/30/2020 Assessment & Plan (06/25/2021 10:33 AM RETAIL SHIFT LEADER): Patient has recurrent left-sided tension headaches; likely secondary to pressure on muscles from lipoma Assessment & Plan (06/09/2021 1:59 PM RETAIL SHIFT LEADER): Patient has headache for the last 4-6 [...] nostril Assessment & Plan (06/30/2020 12:31 PM RETAIL SHIFT LEADER): Patient has severe left sided headache; reports worsened with looking down or leaning back in bed; may be related to sinuses vs tension type headache -given congestion may consider sinus pressure and will refer to ENT Chronic midline low back pain without sciatica 0 06/30/2020 Assessment & Plan (06/30/2020 12:33 PM RETAIL SHIFT LEADER): Not well controlled; likely worsened due to poor core strength; encouraged weight loss to reduce strain on lower back (has severe central adiposity) Will give patient core exercises to strengthen low back and abodmen Lipoma of neck 06/25/2020 Assessment & Plan (06/25/2021 10:32 AM RETAIL SHIFT LEADER): Not well controlled, patient has left-sided tension style headaches, S with noted changing position of head due to size of lipoma Patient benefit from surgical removal to help improve overall posture as well as potentially improved tension headaches Assessment & Plan (05/14/2021 1:29 PM RETAIL SHIFT LEADER): Patient has large lipoma on back left-sided neck; reports left-sided headaches, which may be contributed by lipoma putting pressure on muscles sugar causing tension headaches Referral to Plastic surgery for removal Assessment & Plan (03/20/2021 4:29 PM RETAIL SHIFT LEADER): Stable, Impacts patient ability to turn had; will continue monitor refer to surgery when appropriate Primary osteoarthritis of left knee 05/08/2020 Assessment & Plan (11/17/2021 3:53 PM CDT): Continues to have significant pain, has some symptom improvement, but limited range of motion and pain with movement Recent steroid injection Follow-up with orthopedics Assessment & Plan (04/21/2021 2:52 PM RETAIL SHIFT LEADER): Stable, continues with physical therapy which is [...] monitor Assessment & Plan (05/14/2021 1:29 PM RETAIL SHIFT LEADER): Improving, patient has walked about 12 lb since last visit; encouraged continued dietary changes, decreasing in take through portion control as well as lowering carbohydrate intake Encourage daily activity of 30 minutes of moderate intensity aerobic exercise daily Assessment & Plan (03/20/2021 4:29 PM RETAIL SHIFT LEADER): Weight is stable, no significant change; patient [...] week Assessment & Plan (05/05/2020 3:33 PM RETAIL SHIFT LEADER): Not well controlled, patient reports weight loss [...] daily Assessment & Plan (06/25/2021 10:31 AM RETAIL SHIFT LEADER): Stable, unclear control, patient reports inconsistent medications use Continue levothyroxine 50 mcg daily, check TSH today Assessment & Plan (04/21/2021 2:52 PM RETAIL SHIFT LEADER): Stable, well controlled; continue levothyroxine 50 mcg daily Assessment & Plan (03/20/2021 4:28 PM RETAIL SHIFT LEADER): Stable, well controlled; continue levothyroxine 50 mcg daily Assessment & Plan (09/24/2020 3:00 PM CDT): Recheck TSH today as previous TSH was mildly elevated, is still elevated will adjust levothyroxine given patient has complaints of generalized fatigue Assessment & Plan (06/16/2020 9:09 AM RETAIL SHIFT LEADER): Will recheck thyroid now that has been on medication for ~6 weeks Assessment & Plan (05/05/2020 3:36 PM RETAIL SHIFT LEADER): Mild elevation of TSH, patient has multiple symptoms including inability to lose weight, chronic fatigue and chronic tiredness Will start at low dose levothyroxine 25 mcg, will recheck TSH in approximately 6 weeks Arthritis 03/24/2020 DM2 (diabetes mellitus, type 2) 03/24/2020 Assessment & Plan (06/01/2022 3:30 PM RETAIL SHIFT LEADER): Not well controlled, A1c has always been [...] diet Assessment & Plan (06/25/2021 10:31 AM RETAIL SHIFT LEADER): Stable, improving; patient A1c has been down trending to 7.5 last time, recheck A1c today Continue metformin XR 1000 mg daily Assessment & Plan (05/14/2021 1:28 PM RETAIL SHIFT LEADER): Stable, improving; last A1c was decreasing to 7.5 Encouraged patient to continue with low-carbohydrate diet; encourage education dietary changes as well as regular exercise Continue metformin 1000 mg daily Assessment & Plan (04/21/2021 2:52 PM RETAIL SHIFT LEADER): Stable, improving; patient reports he has been working on decreasing carbohydrates Has a decreased appetite well on Rybelsuswith minimal side effects Continue metformin 1000 mg daily with breakfast, Rybelsus 7 mg prior to breakfast Continue to monitor encourage continued decreased carbohydrate diet Recheck labs at follow-up appointment Assessment & Plan (03/20/2021 4:28 PM RETAIL SHIFT LEADER): Stable, well controlled, improving Patient reports improved [...] diet Assessment & Plan (05/05/2020 3:32 PM RETAIL SHIFT LEADER): Not well controlled, A1c is 7.7 today [...] strength Assessment & Plan (03/26/2020 12:24 PM RETAIL SHIFT LEADER): Will check blood sugars and A1c to evaluate for control of diabetes on metformin Hyperlipidemia 03/24/2020 Assessment & Plan (12/17/2021 12:16 PM CDT): Pt is not on a statin due to intolerance LDL is 107. Started on Zetia per cardiology. Assessment & Plan (10/13/2021 2:34 PM CDT): Not well controlled, encouraged continued dietary changes and weight loss Assessment & Plan (05/14/2021 1:28 PM RETAIL SHIFT LEADER): Not well controlled, patient cannot tolerate statins; encouraged dietary changes order reduce cholesterol through low-fat high-fiber diet Assessment & Plan (05/05/2020 3:35 PM RETAIL SHIFT LEADER): Poorly controlled patient has elevated total and LDL cholesterol with knee depressed HDL cholesterol Triglycerides are also elevated at 254 Patient is unable to tolerate statin therapy due to muscular pain of thigh muscles Will encouraged diet and exercise as ways to maintain and modify cholesterol level Hypertension, essential 03/24/2020 Assessment & Plan (06/01/2022 3:30 PM RETAIL SHIFT LEADER): Stable, improving; blood pressure today in clinic was normal; patient reports home measurements are improving Continue amlodipine 10 mg daily, hydralazine 25 mg b.i.d., metoprolol 100 mg daily Losartan was previously on medication list, but not part of pharmacy was Given blood pressures appropriate, will continue to monitor, can rehab losartan if blood pressure increases Assessment & Plan (04/06/2022 11:47 AM RETAIL SHIFT LEADER): Stable, improving; most recent blood pressure was at target Continue losartan 100 mg daily, metoprolol 100 mg daily, amlodipine 10 mg daily Assessment & Plan (03/07/2022 9:40 AM RETAIL SHIFT LEADER): Not well controlled; patient reports that he [...] daily Assessment & Plan (06/25/2021 10:30 AM RETAIL SHIFT LEADER): Not well controlled; blood pressure is elevated this morning prior to surgery, elevated again in office Given blood pressure was just normal on 06/09/2021, will increase lisinopril to 40 mg daily Encouraged patient to consistently take medications, with no missed or skipped doses Assessment & Plan (05/14/2021 1:27 PM RETAIL SHIFT LEADER): Not well controlled, blood pressure remains elevated; patient has been inconsistent with taking medications Will continue lisinopril 20 mg, follow-up at next appointment; if blood pressure still is elevated will adjust medication Assessment & Plan (03/20/2021 4:27 PM RETAIL SHIFT LEADER): Stable well controlled; blood pressure a target; [...] needed Assessment & Plan (05/05/2020 3:34 PM RETAIL SHIFT LEADER): Well controlled, patient's blood pressure is at target today Will continue with current therapies and continue to monitor patient Assessment & Plan (03/26/2020 12:24 PM RETAIL SHIFT LEADER): Stable well controlled, continue present management Post-traumatic [...] arthroscopy Assessment & Plan (06/16/2020 9:09 AM RETAIL SHIFT LEADER): Not well controlled, had relief with cortisone injection, but now has worsening pain; relief last for about 3-4 weeks -has some instability of patella, able to 'adjust' patella to relieve pain and improve ROM Assessment & Plan (05/05/2020 3:34 PM RETAIL SHIFT LEADER): Stable, not controlled Patient is not able to consistently place weight on the Patient to follow-up with orthopedics further evaluation, based on recommendations may refer to physical therapy Assessment & Plan (03/26/2020 12:24 PM RETAIL SHIFT LEADER): Will start treatment with diclofenac cream, and use of the triamcinolone as necessary If needed will refer to physical therapy for further improvement in pain Polyneuropathy associated with underlying diseas e ([facility]) 10/24/2019 Assessment & Plan (04/06/2022 11:44 AM RETAIL SHIFT LEADER): Continues to have numbness and weakness in bilateral legs; patient scheduled nerve conduction study Continue gabapentin 100 mg TID Continue with exercise, and strength training; noted to have decreased strength in hip flexors; normal with knee -if EMG is normal, consider CK or evaluation of polymyalgia or polymysitis Assessment & Plan (05/05/2020 3:34 PM RETAIL SHIFT LEADER): Patient has episodes of decreased balance due [...] management Assessment & Plan (06/25/2021 10:32 AM RETAIL SHIFT LEADER): Not well controlled, patient continues to have frequent nighttime urination; encouraged patient to continue follow-up with Urology and reschedule surgery Continue myrbetriq 50 mg daily Assessment & Plan (03/20/2021 4:30 PM RETAIL SHIFT LEADER): Patient continues to have increased urinary frequency, [...] 12/08/2022 07/15/2023 Statin intolerance 10/13/2021 4 Immunizations Immunization Administration Dates Next Due Influenza, [...] materials from doctor or pharmacy Sometimes 01/17/2024 [facility] Utilities Answer Date Recorded In the past 12 months has th e [address], gas, oil, or water [employer] threatened to shut off services in your [...] often do you attend chur ch or restorationist services? Never 04/05/2024 Do you belong to any clubs o r organizations such as muslim groups, unions, fraternal or athletic groups, or [...] place to sleep or slept in a usp (including now)? No 08/29/2023 Housing Stability Vital Sign Answer Víctor e Recorded In the last 12 months, was t here a time when you were not able to pay the mortgage or rent on time? No 04/05/2024 In the past 12 months, how m any times have you moved where you were living? 0 04/05/2024 At any time in the past 12 m [facility], were you homeless or living in a usp (including now)? No 04/05/2024 Personal Safety Answer [...] on file Legal Sex Male 12:23 AM RETAIL SHIFT LEADER Gender Identity Not on file Sexual Orientation Not on file Last Filed Vital Signs Vital Sign Reading Time Taken Comments Blood Pressure 148/68 06/12/2024 6:04 PM RETAIL SHIFT LEADER Pulse 64 06/12/2024 6:04 PM RETAIL SHIFT LEADER Temperature 37 C (98.6 F) 06/12/2024 6:04 PM RETAIL SHIFT LEADER Respiratory Rate 20 06/12/2024 6:04 PM RETAIL SHIFT LEADER Oxygen Saturation 100% 06/12/2024 6:04 PM RETAIL SHIFT LEADER Inhaled Oxygen Concentration - - Weight 121.1 kg (267 lb) 06/12/2024 12:34 PM RETAIL SHIFT LEADER Height 177.8 cm (5' 10 ) 06/12/2024 12:34 PM RETAIL SHIFT LEADER Body Mass Index 38.31 06/12/2024 12:34 PM RETAIL SHIFT LEADER Plan of Treatment Not on file Medical Devices Implanted Type Area Deck Scaler Device Identifier Shelf Expiration Date Model / Serial / Lot RegistryLove Daysi Synergy Xd Monorail 3.5mm 12mm 144cm Delivery System 1 Access [id number] - [id number] Implanted:Qty: 1 on 08/29/2023 by Louie Lomeli MD at [facility] Stent [employer] Daysi 10/19/2024 [id number] / / [id number] [employer] Stent Coronary De Rx Cocr Xience Skypoint [id number] - [id number] Implanted:Qty: 1 on 12/17/2021 by Louie Lomeli MD at [facility] [employer] 08/24/2023 [id number] [employer] Stent Coronary De Rx Cocr Xience Skypoint [id number] - [id number] Implanted:Qty: 1 on 12/17/2021 by Louie Lomeli MD at [facility] [employer] 08/28/2023 [id number] [employer] Daysi Synergy 3mm 16mm 144cm Radiopaque 1 Access Port Inflation Lumen [id number] - [id number] Implanted:Qty: 1 on 12/22/2021 by Louie Lomeli MD at [facility] Protection [employer] Daysi 09/04/2022 [id number] / / [id number] Terdisco volante Angio-Seal Vip 6fr Closere Device [id number] - [id number] Implanted:Qty: 1 on 12/22/2021 by Louie Lomeli MD at [facility] TerRUN 09/29/2022 [id number] / / [id number] Procedures Procedure Name Priority Date/Time Associated Diagnosis Comments CT HIP LEFT WO CONTRAST ED 06/12/2024 4:25 PM RETAIL SHIFT LEADER URINALYSIS, MICROSCOPIC ONLY STAT 06/12/2024 3:30 PM RETAIL SHIFT LEADER URINALYSIS AND REFLEX TO MICROSCOPIC AND CULTURE STAT 06/12/2024 3:30 PM RETAIL SHIFT LEADER INFLUENZA A/B, RSV, AND COVID-19 PCR STAT 06/12/2024 3:30 PM RETAIL SHIFT LEADER ECG 12-LEAD STAT 06/12/2024 3:23 PM RETAIL SHIFT LEADER XR KNEE LEFT 3 VIEWS ED 06/12/2024 1:01 PM RETAIL SHIFT LEADER XR HIP LEFT 2 OR 3 VIEWS ED 06/12/2024 1:01 PM RETAIL SHIFT LEADER POCT GLUCOSE DEVICE Routine 06/12/2024 1 2:46 PM RETAIL SHIFT LEADER NC ARTHROCENTESIS ASPIR&/INJ MAJOR JT/BURSA W/O US Routine 05/01/2024 3:00 PM RETAIL SHIFT LEADER Primary osteoarthritis of left knee EGFR Timed 04/10/2024 12:05 AM RETAIL SHIFT LEADER HEMOGLOBIN A1C Routine 08/30/2023 2:23 AM CDT [...] Hip Left WO Contrast (06/12/2024 4:25 PM RETAIL SHIFT LEADER) Anatomical Region Laterality Modality Lower Extremities Left Computed Tomog katheirn 06/12/2024 4:36 PM RETAIL SHIFT LEADER Narrative 06/12/2024 5:00 PM RETAIL SHIFT LEADER EXAM DESCRIPTION: CT HIP LEFT WO CONTRAST [...] 5:00 PM - Electronically signed by Gerard SAMS: FLAQUITA Report ID: [id number] Reading Location: [place] [address] Procedure Note Gerard Armstrong MD - 06/12/2024 [...] 5:00 PM - Electronically signed by Gerard SAMS: FLAQUITA Report ID: [id number] Reading Location: [id number] Ovi Villalobos MD IMG CT PROCEDURES Final Resu lt * Influenza A/B, RSV, and COVID-19 PCR Nasopharyngeal (06/12/2024 3:30 PM RETAIL SHIFT LEADER) COVID-19 RNA Negative Negative Influenza A RNA Negative Negative [facility] ([place]) Influenza B RNA Negative Negative [facility] ([place]) RSV RNA Negative Negative [facility] ([place]) Comment: Interpretive data: Testing performed by [facility]. This test is performed using the [employer] Xpert Xpress CoV-2/Flu/RSV plus assay. This is a multiplex, real- time reverse transcriptase PCR assay intended for the qualitative detection of nucleic acid from SARS-CoV-2, influenza A, influenza B, and respiratory syncytial virus. This assay has been cleared by the [place] Food and Drug administration. The performance characteristics have been verified by the [facility]. Results must be considered in the clinical context, and a negative result does not rule out infection. Interpretive Data last revised 2023 Nasopharyngeal 06/12/2024 3: 30 PM RETAIL SHIFT LEADER 06/12/2024 3:47 PM RETAIL SHIFT LEADER Narrative [facility] ([place] - 06/12/2024 4:33 PM RETAIL SHIFT LEADER Is the Patient experiencing symptoms consistent with COVID?->Unknown Ovi Villalobos MD LAB MICROBIOLOGY - GENERAL O RDERABLES Final Result [facility] ([place]) 1 [facility] Department [place] [address] * (ABNORMAL) Urinalysis reflex to microscopic and culture Urine (06/12/2024 3:30 PM RETAIL SHIFT LEADER) Color, ur Yellow Yellow Clarity, ur Clear Clear JULIETA Rodriguez ([place]) Specific gravity, ur 1.021 1.003 - 1.030 [facility] ([place]) pH, urine 6.0 [facility] ([place]) Comment: Interpretive Data U rine pH is affected by diet, medications, systemic acid-base disturbances, and renal tubular function. pH may affect urinary stone formation. For example, urine pH below 6.0 may help reduce the tendency for calcium phosphate stones and pH greater than 6.0 may reduce the tendency for uric acid stone formation. Source: [facility] Current Interpretive Data was last revised on [...] to microscopic UA will be performed. JULIETA GUERRERO ([place]) Urine 06/12/2024 3:30 PM RETAIL SHIFT LEADER 06/12/2024 3:46 PM RETAIL SHIFT LEADER Ovi Villalobos MD LAB MICROBIOLOGY - GENERAL O RDERABLES Final Result Performing Organization Address City/[facility]/ZIP Co de Phone Number JULIETA GUERRERO ([place]) 1 [facility] Department [place] [address] * Urinalysis, microscopic only (06/12/2024 3:30 PM RETAIL SHIFT LEADER) WBC, ur 0-5 0 - 5 /HPF RBC, ur 0-2 0 - 2 /HPF JULIETA GUERRERO ([place]) Epithelial cells, squamous, ur 1-5 0 - 5 /HPF JULIETA GUERRERO ([place]) Culture Reflex Comment Reflex conditions for urine culture (WBC >10) not met. JULIETA GUERRERO ([place]) Urine 06/12/2024 3:30 PM RETAIL SHIFT LEADER 06/12/2024 3:46 PM RETAIL SHIFT LEADER Ovi Villalobos MD LAB URINE ORDERABLES Final R esult JULIETA GUERRERO ([place]) 1 [facility] Department [place] [address] * ECG 12 lead (06/12/2024 3:23 PM RETAIL SHIFT LEADER) 06/12/2024 3:23 PM RETAIL SHIFT LEADER Narrative [facility] - 06/12/2024 5:06 PM RETAIL SHIFT LEADER Vent Rate: 61 bpm RR Interval: 982 msec NC Interval: 0 msec QRS Duration: 109 msec QT Interval: 458 msec QTC Interval: 460 msec P-R-T Rhodell: 16605 - -24 - 119 degrees IMPRESSION: SUPRAVENTRICULAR RHYTHM, probably sinus BORDERLINE LEFT AXIS DEVIATION [QRS AXIS < -20] LEFT VENTRICULAR HYPERTROPHY AND ST-T CHANGE [VOLTAGE CRITERIA PLUS ST/T ABNORMALITY] ABNORMAL ECG Recommend repeat EKG with stable baseline for accurate rhythm assessment Electronically Signed By: Juarez Thornton MD Ovi Villalobos MD ECG ORDERABLES Final Result [facility] * XR Knee Left 3 Views (06/12/2024 1:01 PM RETAIL SHIFT LEADER) Anatomical Region Laterality Modality Lower Extremities, Knee Left Computed Radiography 06/12/2024 1:23 PM RETAIL SHIFT LEADER Narrative 06/12/2024 1:27 PM RETAIL SHIFT LEADER EXAM DESCRIPTION: XR KNEE LEFT 3 VIEWS [...] Justin Yip M.D. CH: CLIVE Report ID: [id number] Reading Location: [id number] Procedure Note Justin Yip Jr., MD - [...] by Justin Yip M.D. CH: Report ID: [id number] Reading Location: [id number] Yaz Escobar MD IMG XR PROCEDURES F inal Result * XR Hip Left 2 or 3 Views (06/12/2024 1:01 PM RETAIL SHIFT LEADER) Anatomical Region Laterality Modality Lower Extremities, Hip, Pelvis Left C omputed Radiography 06/12/2024 1:27 PM RETAIL SHIFT LEADER Narrative 06/12/2024 1:28 PM RETAIL SHIFT LEADER EXAM DESCRIPTION: XR HIP LEFT 2 OR 3 VIEWS REASON FOR STUDY: Pt to ED via [facility] Per [...] Justin Yip M.D. CH: CLIVE Report ID: [id number] Reading Location: [id number] Procedure Note Justin Yip Jr., MD - 06/12/2024 EXAM DESCRIPTION: XR HIP LEFT 2 OR 3 VIEWS REASON FOR STUDY: Pt to ED via [facility] Per [...] Justin Yip M.D. CH: CLIVE Report ID: [id number] Reading Location: [id number] Yaz Escobar MD IMG XR PROCEDURES F inal Result * POCT glucose (06/12/2024 12:46 PM RETAIL SHIFT LEADER) Glucose, POC 170 70 - 199 mg/dL Blood 06/12/2024 12:4 6 PM RETAIL SHIFT LEADER 06/12/2024 12:46 PM RETAIL SHIFT LEADER us Notinfile Unknown LAB POCT ORDERABLES - DEVICE F inal Result [facility] ([place]) 1 [facility] Department [place] [address] * NC ARTHROCENTESIS ASPIR&/INJ MAJOR JT/BURSA W/O US (05/01/2024 3:00 PM RETAIL SHIFT LEADER) Narrative Karen Christopher NP - 05/01/2024 3:00 PM RETAIL SHIFT LEADER Karen Christopher NP 05/01/2024 1:31 PM Large [...] with no immediate complications us Karen Christopher HEAD OF MARKETING ADOMETRY IN CLINIC/BEDSIDE ORDER ALLEGRA Final Result * (ABNORMAL) eGFR (04/10/2024 12:05 AM RETAIL SHIFT LEADER) eGFR 59(L) >=60 mL/min/1. 73 m2 Comment: [...] reviewed 2021. Blood 04/10/2024 12:0 5 AM RETAIL SHIFT LEADER 04/10/2024 12:14 AM RETAIL SHIFT LEADER us Krystal Araujo MD LAB BLOOD ORDERABLES Fi nal Result Performing Organization Address [facility] Co de Phone Number JULIETA GUERRERO ([place]) 1 [place] [address] * (ABNORMAL) Hemoglobin A1c (08/30/2023 2:23 AM CDT) Hgb A1C 6.3(H) 4.0 - 5.6 % Estimated Average Glucose 134 mg/dL JULIETA GUERRERO ([place]) Comment: The ADA recommends reporting an estimated Average Glucose (eAG) with all Hemoglobin A1c results using the equation derived from a study of 507 normal and diabetic adults. Minority populations were underrepresented and children were not included. (Diabetes Care 31:0934-8076, 2008). The eAG is not equivalent to a fasting glucose. Blood 08/30/2023 2:23 AM CDT 08/30/2023 12:50 PM CDT Destiny Devi NP LAB BLOOD ORDERABLES Final R esult Performing Organization Address City/[facility] Co de Phone Number JULIETA [facility]ERO ([place]) 1 [place] [address] * (ABNORMAL) Lipid panel (08/28/2023 8:27 PM [...] last revised on 2017. Chol/HDL ratio 6 NYAANNE R YOLANDA ([place]) Blood 08/28/2023 8:27 PM CDT 08/28/2023 10:13 PM CDT us Jesus Payan MD LAB BLOOD ORDERABLES Final Re sult [facility] ([place]) 1 [facility] [place] [address] * PSA screen (10/28/2021 2:47 PM CDT) PSA-Total 3.15 <=5.40 ng/mL JULIETA [facility] ([place]) Comment: Interpretive Data AGE SEX REFERENCE INTERVAL [...] data last revised 21. Testing performed by: [facility], [address] [place] [address]., [id number] Blood 10/28/2021 2:47 PM CDT 10/28/2021 7:50 PM CDT us Sohail Gould MD LAB BLOOD ORDERABLES Holly l Result Performing Organization Address City/[facility]/ZIP Co de Phone Number [facility] 1 [facility] [place] [address] * (ABNORMAL) Albumin Creatinine Ratio, Urine (10/28/2021 2:47 PM CDT) Albumin Ur 713.6 mg/L [facility] ([place]) Comment: Interpretive Data No reference range established. Current interpretive data was last revised 2018. Testing performed by: [facility], [address] [place] [address]., [address] Creatinine Ur 343.1 mg/dL [facility] ([place]) Comment: Interpretive Data No reference range established. Current interpretive data was last revised 2018. Testing performed by: [address] [address] Albumin Creatinine Ratio, Ur 208(H) 1 - 29 mg/g [facility] ([place]) Comment:Testing performed by : [address] [address] Urine 10/28/2021 2:47 PM CDT 10/28/2021 9:10 PM CDT Sohail Gould MD LAB URINE ORDERABLES Holly l Result [facility] ([place]) 1 [facility] Department [place] [address] * Stool DNA - Cologuard (11/30/2020) Scribed Stool DNA - Cologuard Negative EXTERNAL LAB Stool Historical Provider LAB BODY FLUIDS AND STOOL S ORDERABLES Final Result EXTERNAL LAB from Last 3 Months or Most Recently Relevant to Health Maintenance Insurance IDPA [facility] ADVANTAGE [place] [facility] [place] [address] [facility] MEDIC[facility] ADVANTAGE [facility] HMO REF IDPA Advance Directives For more information, please contact: [phone] * Full Code (Latest Code Status on [...] 1:59 PM 02/05/2023 5:22 PM Care Teams Ice Maker Relationship Specialty Start Date End Date Melchor Woodard MD PCP - General Family Practice 07/30/22 Nicolas Jung MD Surgeon Orthopedic Surgery 08/05/21 Louie Lomeli MD Consulting Physician Cardiology 12/23/21 Jairo Sparrow MD [address] [place] [address] Consulting Physician Neurology 12/14/22
[2024-07-19 20:08] LABS: Hematocrit 53.3 % (42.0-52.0); Hemoglobin 16.8 g/dL (14.0-18.0); Mean Corpuscular HGB Conc 31.5 g/dl (32-36); Mean Corpuscular Hemoglobin 29.7 pg (26-34); Mean Corpuscular Volume 94.3 fl (80-100); Mean Platelet Volume 10.7 fl (7.4-10.4); Platelet Count Result 236 k/mm3 (150-375); Red Blood Count 5.65 M/mm3 (4.6-6.20); Red Cell Distribution Width 14.3 % (11.5-14.5); White Blood Count 13.2 K/mm3 (4.5-10.0)
[2024-07-19 20:16] LABS: Add Urine Microscopic? YES; Appearance Urine Clear (Clear); Bilirubin Urine Negative (Negative); Blood Urine Negative (Negative); Color Urine Yellow (Yellow); Glucose Urine UA 3+ mg/dL (Negative); Ketones Urine Negative (Negative); Leukocyte Esterase Ur Negative LEU/UL (Negative); Nitrate Urine Negative (Negative); Protein Urine Trace mg/dL (Negative); Urobilinogen Urine 0.2 mg/dL (<2.0); pH Urine 5.5 (5.0-9.0)
[2024-07-19 20:23] LABS: Alanine Aminotransferase 22 U/L (6-50); Albumin Level 4.1 g/dL (3.5-5.1); Alkaline Phosphatase 111 U/L (38-126); Anion Gap 11 mmol/L (4-12); Aspartate Amino Transferase 31 U/L (17-59); Bilirubin,Total 0.5 mg/dL (0.2-1.3); Blood Urea Nitrogen 27 mg/dL (9-20); Calcium 9.4 mg/dL (8.4-10.2); Carbon Dioxide 32 mmol/L (22-30); Chloride 98 mmol/L (98-107); Estimated Glomerular Filt Rate 41; Glucose 263 mg/dL (65-110); Potassium 3.6 mmol/L (3.4-5.0); Sodium 141 mmol/L (137-145)
[2024-07-19 20:48] LABS: RBC Urine 0-2 /hpf (0-2); WBC Urine 0-3 /hpf (0-3)
[2024-07-19 20:49] LABS: Bacteria Urine Rare /hpf; Squamous Epithelial Cell Urine Rare /hpf (Few)
[2024-07-19 20:52] LABS: Creatinine Urine 74.1 mg/dL
[2024-07-19 20:54] LABS: Hemoglobin A1C 7.6 % (<5.7)
[2024-07-19 20:56] LABS: MALB Creatinine Ratio 107.4 mg/g (0-30); Microalbumin Urine Random 79.6 mg/L (0-16.7)
== END 2024-07-19 14:30 | disposition home or self-care (01) ==
PROVIDERS: PCP Nurse Practitioner Adult Health; Visit Provider Nurse Practitioner Adult Health
DX: I10 Essential (primary) hypertension (principal); N32.9 Bladder disorder, unspecified; E11.9 Type 2 diabetes mellitus without complications; E07.9 Disorder of thyroid, unspecified; R53.1 Weakness; R06.00 Dyspnea, unspecified; J18.9 Pneumonia, unspecified organism
CPT/HCPCS: 36415; 71046; 80053; 81001; 82043; 82565; 83036; 84443; 85027

== ENCOUNTER 2024-09-06 10:35 | Emergency (ER) | payer MEDICARE, SELFPAY ==
--- NOTE | ~2024-09-06 | XR_ITS ---
Cervical Spine: AP, lateral, open-mouth views Clinical History: Pain Findings: The normal lordotic curve is maintained. The vertebral bodies and posterior elements appea r intact. The intervertebral disc spaces are well maintained. There are large anterior osteophytes f rom C3 to C4 and from C5 to C6. Mild facet arthropathy present. Pre-vertebral soft tissues are unrema rkable. Impression: Areas of DISH, as above. Mild facet arthropathy. Reviewed, dictated and finalized at location M. Impression: Areas of DISH, as above. Mild facet arthropathy.
--- NOTE | ~2024-09-06 | XR_ITS ---
[id number] Ordering provider: Carly Bennett NP History: 74 years Male with . fell yesterday hit left rib area . Comparison: None. FINDINGS: MEDIASTINUM: The cardiac silhouette is not enlarged. LUNGS: No infiltrates, effusions or pneumothorax. OTHER: No definite fractures seen. No free air under the diaphragm. Degenerative changes of the spine . IMPRESSION: No definite fractures seen. No acute cardiopulmonary pathology. Reviewed, dictated and finalized at location A.
[2024-09-06 10:44] VITALS: BP 134/74; PULSE 70; RESP 20; TEMP 36.6; O2SAT 96
--- OUTSIDE RECORDS SUMMARY | 2024-09-06 10:48 | XMS_ITS | Encounter Summary ---
Author Organization [facility] Healthcare Address [address] [place] [address] Care Team Providers Care Curing Finisher Name Role Phone Nicolas Jung MD Unavailable [phone] Louie Lomeli MD Unavailable [phone] Melchor Woodard MD Primary Care Provider [phone] Jairo Sparrow MD Unavailable [phone] [facility]re[facility] Eugenia qu[facility]iones [facility], located within [facility] Unavailable [phone] Encounter Details Date Type Department Care Team (Late st Contact Info) Description 06/02/2023 Telephone [facility] [address] [facility] [address] [place] [address] Jonathan Miranda MD [address] [place], [place] [id number] Social History Tobacco Use Types Packs/Day Years [...] week 02/04/2023 How often do you attend [facility] or jainism services? Never 02/04/2023 Do you belong to [...] place to sleep or slept in a alf (including now)? Yes 02/04/2023 Personal Safety Answer Date Recorded Have you ever been in or are you currently in a harmful physical or emotional relationship or is someone making you feel afraid or unsafe? Denies 03/09/2023 Sex and Gender Information Value Date Recorded Sex Assigned at Not on file Legal Sex Male 12:23 AM QUOTATION CHECKER Gender Identity Not on file Sexual Orientation [...] COVID: Suspected 06/12/2024 06/12/2024 06/12/2024 4:34 PM QUOTATION CHECKER COVID: Suspected 07/30/2024 07/30/2024 07/30/2024 4:38 PM CDT documented as of this encounter Care Teams Curing Finisher Relationship Specialty Start Date End Date Melchor Woodard MD PCP - General Family Practice 07/30/22 Nicolas Jung MD Surgeon Orthopedic Surgery 08/05/21 Louie Lomeli MD Consulting Physician Cardiology 12/23/21 Jairo Sparrow MD [address] [place] [address] [address] [facility] [place] [address] Consulting Physician Neurology 12/14/22 Maria Eugenia Navarrete, [address] [place] [address] Pharmacist Pharmacy 03/12/24 03/12/24 documented as of this encounter
--- OUTSIDE RECORDS SUMMARY | 2024-09-06 10:48 | XMS_ITS | Clinical Summary ---
Author Organization [facility] Address [address] [place] [address] Phone Care Team Providers Care Medical Office Receptionist Name Role Phone Mark De Los Santos MD Unavailable Unavailable Rand Tsang MD Unavailable [phone] Vicki Salmeron APRN Primary Care Provider [phone] Allergies Active Allergy Reactions Criticality Noted Date Comments Ceftriaxone Unknown 12/29/2022 Statins Other (see Comments) 01/26/2018 Generalized pain Medications amLODIPine (NORVASC) 10 MG Tablet TAKE 1 TAB BY MOUTH DAILY. 90 Tab 1 12/19/19 20 Active metFORMIN (GLUCOPHAGE) 500 MG TabletIndications:T ype 2 diabetes mellitus with 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, without long-term current use of insulin (HCC) Take 1 Tab by mouth 2 times daily (with meals). 60 Tab 02/06/20 20 Active furosemide (LASIX) 40 MG TabletIndications:E kumar leg Take 1 Tablet by mouth daily. 90 Tablet 3 08/07/19 21 Active meclizine (ANTIVERT) 12.5 MG Tablet Take 12.5 mg by mouth every 8 hours as needed for Dizziness. Active meloxicam (MOBIC) 7.5 MG Tablet Take 7.5 mg by mouth daily. Active metoprolol Succinate (Toprol XL) 25 MG TABLET SR 24 HR Take 25 mg by mouth daily. Active nitroGLYCERIN (NITROSTAT) 0.4 MG SL Tablet 0.4 mg by Sublingual route every 5 minutes as needed for Chest pain. Active oxybutynin (DITROPAN-XL) 10 MG TABLET SR 24 HR Take 10 mg by mouth daily. Active traMADol (ULTRAM) 50 MG Tablet Take 50 mg by mouth every 6 hours as needed for Moderate or more severe pain. Active triamcinolone (KENALOG) 0.025 % Cream Apply 1 Application 2 times daily. Active empagliflozin (JARDIANCE) 25 MG Tablet Take 25 mg by mouth daily. Active ezetimibe (ZETIA) 10 MG Tablet Take 10 mg by mouth daily. Active gabapentin (NEURONTIN) 100 MG Capsule Take 200 mg by mouth 3 times daily. Active Vibegron (Gemtesa) 75 MG Tablet Take 1 Tablet by mouth daily. Active HYDROcodone-acetami nophen (NORCO) 7.5-325 MG TabletIndications:P ain,SEVERE Take 1 Tablet by mouth 6 times daily. 1 TAB PO Q 4HRS PRN Indications: Pain, SEVERE Active isosorbide mononitrate (IMDUR) 30 MG TABLET SR 24 HR Take 30 mg by mouth daily. Active levothyroxine (SYNTHROID) 50 MCG Tablet Take 50 mcg by mouth daily. Active losartan (COZAAR) 25 MG Tablet Take 25 mg by mouth daily. Active aspirin EC (Aspirin 81) 81 MG Tablet Delayed Response Take 81 mg by mouth daily. Active Calcium Carbonate-Vitamin D (CALCIUM CARBONATE W/VITAMIN D PO) Take 1 Tablet by mouth daily. Active clopidogrel (PLAVIX) 75 MG Tablet Take 75 mg by mouth daily. Active Diclofenac Sodium (VOLTAREN) 1 % Gel Apply 2 g 4 times daily. Active predniSONE 5 MG (21) Tablet Therapy Pack Take 5 mg by mouth daily. take 3 by mouth daily for 5 days, 2 tablets daily for 5 days, 1 tablet daily for 5 days. Rx: [id number] Active Active Problems Problem Noted Date Diagnosed Date Polyneuropathy associated with underlying diseas e 10/24/2019 '[id number]' with signs of mal nutrition 02/02/2019 Pulmonary hypertension 05/02/2017 Overview (01/24/2018): 44mm Hg Rash 02/10/2017 Benign prostatic hyperplasia with urinary freque ncy 12/19/2015 Hypertension, essential Arthritis DM2 (diabetes mellitus, type 2) Hyperlipidemia Encounters Date Type Department Care Team Description 08/30/2024 1:00 AM CDT [facility] Visit [facility] [address] Tere Grier, ISABELL SN - HOME VISIT 08/24/2024 10:30 AM CDT Home Care Visit [facility] [address] Tere Grier, ISABELL SN - HOME VISIT 08/24/2024 9:30 AM CDT Home Care Visit [facility] [address] Renetta Alberts, PT PT - DISCIPLINE DISCHARGE 08/16/2024 2:30 PM CDT Home Care Visit [facility] [address] Zunilda Bustos, DIRECTOR BIOSTATISTICS PT - HOME VISIT 08/16/2024 1:30 PM CDT Home Care Visit [facility] [address] Tere Paul RN SN - HOME VISIT 08/16/[address] [address] Radha Mcnair RN 08/14/2024 2:30 PM CDT Home Care Visit [facility] [address] Zunilda Bustos, DIRECTOR BIOSTATISTICS PT - HOME VISIT 08/09/2024 11:30 AM CDT Home Care Visit [facility] [address] Rossi Ayala LPN SN - HOME VISIT 08/08/2024 Home Care Visit [facility] [address] Antonina Miller OT TELEPHONE ENCOUNTER 08/07/2024 11:00 AM CDT Home Care Visit [facility] [address] Tammy Weldon, Student PT - INITIAL EVALUATION 08/04/2024 2:00 PM CDT Home Care Visit [facility] [address] Tere Grier, ISABELL SN - OASIS START OF CARE 08/04/2024 Plan of Care Documentation [facility] [address] [place] [address] from Last 3 Months Immunizations Immunization Administration Dates Next Due Covid-19, [...] Used Date Smoking Tobacco: Former Cigarettes 1 25 1 961 - 1985 Smokeless Tobacco: Never Tobacco Cessation:Counseling Given: No [...] Sign Reading Time Taken Comments Blood Pressure 124/76 08/30/2024 10:42 AM CDT Pulse 69 08/30/2024 10:42 AM CDT Temperature 36.1 C (96.9 F) 08/30/2024 10:42 AM CDT Respiratory Rate 18 08/30/2024 10:42 AM CDT Oxygen Saturation 96% 08/30/2024 10:42 AM CDT Inhaled Oxygen Concentration - - Weight 116.1 kg (256 lb) 08/24/2024 9:53 AM CDT Height 177.8 cm (5' 10 ) 08/04/2024 3:12 PM CDT Body Mass Index 36.73 08/04/2024 3:12 PM CDT Plan of Treatment Upcoming Encounters Date Type Department Care Team (Late st Contact Info) Description 09/13/2024 1:00 AM CDT Home Care Visit [facility] [address] Tere Paul RN [place] 09/20/2024 1:00 AM CDT Home Care Visit [facility] [address] Tere Paul RN [place] 09/27/2024 1:00 AM CDT Appointment [address] [address] Tere Paul RN [place] Health Maintenance Due Date Last Done Comments Diabetes: Foot Exam 1950 Hepatitis C Virus (HCV) Screening 1950 Colonoscopy 1997 Colorectal Cancer Screening 1997 Cologuard 2002 Immunochemical Fecal Occult Blood 2002 Respiratory Syncytial Virus (RSV) Immunization (Adult) (1 - Risk 60-74 years 1-dose series) 2012 Diabetes: Nephropathy Screening 04/23/2020 04/23/2019, 01/08/2019, 01/04/2019, Additional history exists SARS-COV-2 Immunization ( season) 2024 02/17/2022, 09/23/2021, 03/25/2021, Additional history exists Diabetes: Eye Exam 03/29/2024 03/29/2023 Diabetes: Hemoglobin A1c 10/12/2024 024, 08/30/2023, 06/10/2023, Additional history exists Influenza Immunization (Season Ended) 2024 02/17/2022, 02/10/2021, 03/19/2020, Additional history exists Td Immunization Every 10 Years (Adults With 1 Tdap) 02/12/2030 02/13/2020, 12/11/2015 Pneumococcal Immunization (50+ years) Completed 09/27/2017, 03/12/2016 Pneumococcal Immunization Combined Discontinued 09/27/2017, 03/12/2016 PSA Discussion Discontinued 02/19/2019, 01/01, 12/07/2016, Additional history exists Zoster Immunization Completed 03/19/2020, 06/09/2018, 03/27/2018 Hepatitis B Immunization Aged Out No longer eligible based on patient's age to complete this topic Human Papillomavirus (HPV) Immunization Aged Out No longer eligible based [...] (COMPREHENSIVE METABOLIC PANEL) Today 04/23/2019 10:44 AM TALENT RECRUITER Pulmonary hypertension (HCC) Hypertension, essential Type 2 [...] - 6.0 % 10/24/2019 12:53 PM CDT [facility] Est Average Glucose 168.6 mg/dL 10/24/2019 12:53 PM CDT [facility] Blood Venipuncture / Unknown 10/24/2019 10:30 AM CDT 10/24/2019 10:30 AM CDT Narrative [facility] - 10/24/2019 12:53 PM CDT HEMOGLOBIN A1C: DIABETIC PATIENTS: WELL-CONTROLLED: 6.2 - 7.0 INTERMEDIATE WELL-CONTROLLED: 7.0 - 9.0 POORLY-CONTROLLED: >9.0 us Carlos Moran MD CHEMISTRY ORDERABLES Holly leigh Result [facility] [address] [place] [address] * (ABNORMAL) CMP (COMPREHENSIVE METABOLIC PANEL) (04/23/2019 10:44 AM TALENT RECRUITER) SODIUM 141 136 - 144 mmol/L 04/23/2019 12:52 PM [facility] POTASSIUM 3.4(L) 3.5 - 5.1 mmol/L 04/23/2019 12:52 PM [facility] CHLORIDE 102 100 - 110 mmol/L 04/23/2019 12:52 PM [facility] CO2, VENOUS 26 22 - 32 mmol/L 04/23/2019 12:52 PM [facility] ANION GAP 16.4 8.0 - 20.0 mmol/L 04/23/2019 12:52 PM [facility] GLUCOSE 128(H) 70 - 99 mg/dL 04/23/2019 12:52 PM [facility] BUN 14 8 - 23 mg/dL 04/23/2019 12:52 PM [facility] CREATININE, BLOOD 1.01 0.80 - 1.30 mg/dL 04/23/2019 12:52 PM [facility] BUN/CREATININE RATIO 14 12 - 20 ratio 04/23/2019 12:52 PM [facility] TOTAL PROTEIN 7.4 6.0 - 8.3 g/dL 04/23/2019 12:52 PM [facility] ALBUMIN 3.9 3.5 - 5.2 g/dL 04/23/2019 12:52 PM [facility] Comment: The colormetric methods used for the determination of Albumin may lead to falsely elevated test results in patients suffering from renal failure or insufficiency due to interference with other proteins. A/G RATIO 1.1 1.0 - 2.0 04/23/2019 12:52 PM [facility] CALCIUM 8.9 8.9 - 10.3 mg/dL 04/23/2019 12:52 PM [facility] T BILI 0.3 <=1.2 mg/dL 04/23/2019 12:52 PM [facility] SGOT (AST) 16 <=40 U/L 04/23/2019 12:52 PM [facility] SGPT (ALT) 19 <=41 U/L 04/23/2019 12:52 PM [facility] ALKALINE PHOSPHATASE 102 40 - 130 U/L 04/23/2019 12:52 PM [facility] GFR, EST. NONAFRICAN >60 >=60 04/23/2019 12:52 PM [facility] GFR, EST. >60 >=60 019 12:52 PM [facility] Comment: Creatinine Clearance is the preferred criteria for selecting drug dose adjustments in renally impaired patients. The GFR is provided as additional pertinent clinical information. GFR is reported in mL/min/1.73 sq m. Blood specimen (specimen) Venipuncture / Unknown 04/23/2019 10:44 AM TALENT RECRUITER 04/23/2019 10:44 AM TALENT RECRUITER us Carlos Moran MD CHEMISTRY ORDERABLES Holly leigh Result [facility] [address] [place] [address] * (ABNORMAL) PSA DIAGNOSTIC,TOTAL (02/19/2019 10:38 AM CDT) PSA, TOTAL (PROSTATIC SPECIFIC ANTIGEN) 6.36(H) <=4.00 ng/mL 02/19/2019 1:24 PM CDT [facility] Blood specimen (specimen) Venipuncture / Unknown 02/19/2019 10:38 AM CDT 02/19/2019 12:34 PM CDT Narrative [facility] - 02/19/2019 1:24 PM CDT PSA NOTE: The PSA value should be used in conjunction with information available from clinical evaluation and other diagnostic procedures. Michelet Moran MD CHEMISTRY ORDERABLES Final Result [facility] [address] [place] [address] from Last 3 Months or Most Recently Relevant to Health Maintenance Insurance MEDICARE [facility] Advance Directives * Full Code (Latest Code Status on File) Date Activated Date Inactivated Comments 08/07/2024 2:22 PM Care Teams Medical Office Receptionist Relationship Specialty Start Date End Date Vicki Salmeron APRN [address] [place] [address] PCP - General Advanced Practice Nurse 08/16/24 Mark De Los Santos MD Consulting Physician Urology 09/05/15 Rand Tsang MD Consulting Physician Dermatopathology 01/16/18
--- OUTSIDE RECORDS SUMMARY | 2024-09-06 10:48 | XMS_ITS | Encounter Summary ---
Author Organization [facility] Address [address] [place] [address] Phone Care Team Providers Care Exchange Consultant Name Role Phone Carlos Moran MD Primary Care Provider [phone] Mark De Los Santos MD Unavailable Unavailable Rand Tsang MD Unavailable [phone] Provider, None Primary Care Provider UnavailSohail Kc MD Primary Care Provider [phone] Carlos Moran MD Primary Care Provider [phone] Sohail Gould MD Primary Care Provider [phone] Vicki Salmeron APRN Primary Care Provider [phone] Reason for Visit * Reason Comments Medication Refill Encounter Details Date Type Department Care Team (Late st Contact Info) Description 03/21/[address] [facility] - Primary Care - [place] [address] [place] [address] Carlos Moran MD [address] [place], [place] [id number] Medication Refill Social History Tobacco Use Types Packs/Day Years Used Date Smoking Tobacco: Former Cigarettes 1985 Smokeless Tobacco: Never Alcohol Use Standard [...] COVID-19? No / Unsure 03/13/2020 2:58 PM CLERK TYPIST documented as of this encounter Miscellaneous Notes * Telephone Encounter - Carlos Moran MD - 03/21/2020 10:53 AM CLERK TYPIST Refill request approved. K TYPIST * Telephone Encounter - Tavia Pablo [facility] - 03/21/2020 10:42 AM CLERK TYPIST Medication failed the protocol, provider to review [...] weeks ago Acute pain of left knee [facility] Carlos Moran MD 1 month ago Cellulitis of mouth [facility] Medical [facility] Carlos Moran MD 1 month ago Polyneuropathy associated with underlying disease (HCC) [facility] Carlos Moran MD 4 months ago [facility]pertension[facility] essential [facility] Carlos Moran MD 8 months ago Urinary pain [facility] Carlos Moran MD Upcoming Appointments Future Appointments In 1 month Fox Shearer MD [facility] Medical [facility] - Neurology [facility] In 1 month Carlos Moran MD [facility] [employer] - Recent and Past Visits Recent Visits Date Type Provider Dept 02/28/20 Office Visit Carlos Moran MD [facility] 02/18/20 Office Visit Carlos Moran, [facility] 02/05/20 Office Visit Carlos Moran, [facility] 10/24/19 Office Visit Carlos Moran, [facility] 07/13/19 Office Visit Carlos Moran, [facility] 04/23/19 Office Visit Carlos Moran, [facility] 02/12/19 Office Visit Carlos Moran, [facility] Showing recent visits within past 460 days with a meds authorizing provider and meeting all other requirements Future Appointments Date Type Provider Dept 04/24/20 Appointment Carlos Moran MD [facility] Showing future appointments within next 90 days with a meds authorizing provider and meeting all other requirements K TYPIST documented in this encounter Plan of Treatment Upcoming Encounters Date Type Department Care Team (Late st Contact Info) Description 09/13/2024 1:00 AM CDT Home Care Visit [address] [address] Tere Paul RN [place] 09/20/2024 1:00 AM CDT Home Care Visit [address] [address] Tere Paul RN [place] 09/27/2024 1:00 AM CDT [facility] [address] [place] [address] Tere Paul, RN [place] documented as of this encounter Visit Diagnoses Not on filedocumented in this encounter Additional Health Concerns Assessment Noted Time PHQ-9 Depression Total Score: 0 07/13/19 20 10:00 AM CDT documented as of this encounter Care Teams Exchange Consultant Relationship Specialty Start Date End Date Carlos Moran MD [address] [place] [address] PCP - General Internal Medicine 01/28/15 04/21/20 Provider, None [place] PCP - General 04/22/20 08/04/20 Sohail Gould MD [address] [place] [address] PCP - General Family Medicine 08/05/20 10/06/20 Carlos Moran MD [address] [place] [address] PCP - General Internal Medicine 10/07/20 08/19/21 Sohail Gould MD [address] [place] [address] PCP - General Family Medicine 08/20/21 08/15/24 Vicki Salmeron APRN [address] [place] [address] [place] [address] PCP - General Advanced Practice Nurse 08/16/24 Mark De Los Santos MD [address] [place] [address] Consulting Physician Urology 09/05/15 Rand Tsang MD [address] [place] [address] Consulting Physician Dermatopathology 01/16/18 documented as of this encounter
--- OUTSIDE RECORDS SUMMARY | 2024-09-06 10:48 | XMS_ITS | Encounter Summary ---
Author Organization [facility] Address [address] [place] [address] Phone Care Team Providers Care Supervisor Print Line Name Role Phone Mark De Los Santos MD Unavailable Unavailable Rand Tsang MD Unavailable [phone] Carlos Moran MD Primary Care Provider [phone] Sohail Gould MD Primary Care Provider [phone] Vicki Salmeron APRN Primary Care Provider [phone] Reason for Visit * Reason Comments Medication Refill Encounter Details Date Type Department Care Team (Late st Contact Info) Description 01/26/2021 Refill [facility] - Primary Care - [place] [address] [place] [address] Carlos Moran MD [address] [place] [address] Medication Refill Social History Tobacco [...] 09/13/2024 1:00 AM CDT Home Care Visit [address] [address] Tere Paul RN [place] 09/20/2024 1:00 AM CDT Home Care Visit [address] [address] Tere Paul RN [place] 09/27/2024 1:00 AM CDT Appointment [address] [address] Tere Paul RN [place] documented as of this encounter Visit Diagnoses Not on filedocumented in this encounter Additional Health Concerns Assessment Noted Time PHQ-9 Depression Total Score: 0 07/13/19 20 10:00 AM CDT documented as of this encounter Care Teams Supervisor Print Line Relationship Specialty Start Date End Date Carlos Moran MD [address] [place] [address] PCP - General Internal Medicine 10/07/20 08/19/21 Sohail Gould MD [facility] [place] [address] PCP - General Family Medicine 08/20/21 08/15/24 Vicki Salmeron APRN [address] [place], [place] [address] [address] PCP - General Advanced Practice Nurse 08/16/24 Mark De Los Santos MD Consulting Physician Urology 09/05/15 Rand Tsang MD Consulting Physician Dermatopathology 01/16/18 documented as of this encounter
--- OUTSIDE RECORDS SUMMARY | 2024-09-06 10:48 | XMS_ITS | Encounter Summary ---
Author Organization [facility] Address [address] [place] [place] [address] Care Team Providers Care Beach Patrol Lieutenant Name Role Phone Carlos Moran MD Primary Care Provider [phone] Encounter Details Date Type Department Care Team (Late Contact Info) Description 04/13/2024 Lab Requisition [facility] [address] [place] [address] [place] [address] Social History Tobacco Use Types Packs/Day Years Used Date Smoking Tobacco: Former Smokeless Tobacco: Never Alcohol Use Standard Drinks/Week Comments No 0 (1 standard drink = 0.6 oz pur e alcohol) Sex and Gender Information Value Date Recorded Sex Assigned at Not on file Legal Sex Male 11:59 AM DAY PORTER Gender Identity Not on file Sexual Orientation Not on file documented as of this encounter Plan of Treatment Upcoming Encounters Date Type Department Care Team (Late Contact Info) Description 12/20/2024 11:00 AM CDT Appointment [facility] [address] [address] Lisa Singh MD [address] [phone] documented as of this encounter Procedures Procedure Name Priority Date/Time Associated Diagnosis Comments TSH REFLEX FREE T4 STAT 04/13/2024 3: 21 PM DAY PORTER HEMOGLOBIN A1C STAT 04/13/2024 3:21 PM DAY PORTER CBC W AUTO DIFFERENTIAL STAT 04/13/2024 3:21 PM DAY PORTER COMPREHENSIVE METABOLIC PANEL STAT 04/13/2024 3:21 PM DAY PORTER LIPID PROFILE STAT 04/13/2024 3:21 PM DAY PORTER documented in this encounter Results * (ABNORMAL) HEMOGLOBIN A1C (04/13/2024 3:21 PM DAY PORTER) Hemoglobin A1c 7.3(H) <5.7 % 04/13/2024 3:47 PM DAY PORTER [facility] Estimated Average Glucose 163 mg/dL 04/13/2024 3:47 PM DAY PORTER [facility] Blood BLOOD SPECIMEN / Unknown 04/13/2024 3:21 PM DAY PORTER 04/13/2024 3:[address] [facility] - 04/13/2024 3:47 PM DAY PORTER HbA1c Interpretation: Normal: < 5.7% Pre-diabetes: 5.7-6.4% [...] certified method. Maged Yusuf[facility] LAB - CHEMISTRY ORDERABLES Holly lu Result [facility] [address] [place] [address] * (ABNORMAL) LIPID PROFILE (04/13/2024 3:21 PM DAY PORTER) Cholesterol 173 <200 mg/dL 04/13/2024 3:48 PM DAY PORTER [facility] Triglycerides 179(H) <150 mg/dL 04/13/2024 3:48 PM DAY PORTER [facility] HDL Cholesterol 26(L) >40 mg/dL 3:48 PM DAY PORTER [facility] LDL Calculated 111 <130 mg/dL 04/13/2024 3:48 PM DAY PORTER [facility] VLDL Calculated 36(H) <=30 mg/dL 3:48 PM DAY PORTER [facility] Chol HDL Ratio 6.7(H) <4.5 04/13/2024 3:48 PM DAY PORTER [facility] LDL/HDL Ratio 4.3 <5.0 04/13/2024 3:48 PM DAY PORTER [facility] Blood BLOOD SPECIMEN / Unknown Venipuncture / Unknown 04/13/2024 3:21 PM DAY PORTER 04/13/2024 3:25 PM DAY PORTER [facility] LAB - CHEMISTRY ORDERABLES Holly l Result Performing Organization Address City/[facility]/ZIP Co de Phone Number [facility] [address] [place] [address] * TSH REFLEX FREE T4 (04/13/2024 3:21 PM DAY PORTER) Pathologist [facility] TSH 3.335 0.350 - 4.940 uIU/mL 04/13/2024 4:06 PM DAY PORTER [facility] Blood BLOOD SPECIMEN / Unknown Venipuncture / Unknown 04/13/2024 3:21 PM DAY PORTER 04/13/2024 3:25 PM DAY PORTER [facility] LAB - CHEMISTRY ORDERABLES Holly l Result [facility] [address] [place] [address] * (ABNORMAL) COMPREHENSIVE METABOLIC PANEL (04/13/2024 3:21 PM DAY PORTER) [facility] Glucose 193(H) 70 - 99 mg/dL 04/13/2024 3:48 PM [facility] Sodium 140 136 - 145 mmol/L 04/13/2024 3:48 PM [facility] Potassium 3.4(L) 3.5 - 5.1 mmol/L 04/13/2024 3:48 PM [facility] Chloride 104 98 - 107 mmol/L 04/13/2024 3:48 PM [facility] CO2 26 22 - 29 mmol/L 04/13/2024 3:48 PM [facility] Calcium 9.6 8.4 - 10.4 mg/dL 04/13/2024 3:48 PM [facility] Anion Gap 10 6 - 16 mmol/L 04/13/2024 3:48 PM [facility] BUN 21 7 - 26 mg/dL 04/13/2024 3:48 PM [facility] Creatinine 1.51(H) 0.72 - 1.25 mg/dL 04/13/2024 3:48 PM [facility] Alkaline Phosphatase 109 40 - 150 U/L 04/13/2024 3:48 PM [facility] ALT 14 0 - 55 U/L 04/13/2024 3:48 PM [facility] AST 13 5 - 34 U/L 04/13/2024 3:48 PM [facility] Protein Total 6.9 6.4 - 8.3 gm/dL 04/13/2024 3:48 PM [facility] Albumin 3.4 3.4 - 5.0 gm/dL 04/13/2024 3:48 PM [facility] Bilirubin Total 0.3 0.2 - 1.2 mg/dL 04/13/2024 3:48 PM [facility] eGFR by CKD-EPI 49(L) >=90 mL/min/1.7 3 m2 04/13/2024 3:48 PM [facility] Blood BLOOD SPECIMEN / Unknown Venipuncture / Unknown 04/13/2024 3:21 PM DAY PORTER 04/13/2024 3:25 PM [facility] LAB - CHEMISTRY ORDERABLES Holly l Result [facility] [address] [place] [address] * (ABNORMAL) CBC WITH DIFFERENTIAL (04/13/2024 3:21 PM DAY PORTER) WBC 11.8(H) 4.0 - 10.7 x10E9/L 04/13/2024 3:32 PM [facility] RBC Count 4.77 4.30 - 5.80 x10E12/L 04/13/2024 3:32 PM [facility] Hemoglobin 13.9 13.3 - 17.5 g/dL 04/13/2024 3:32 PM [facility] Hematocrit 44.8 38.7 - 51.1 % 04/13/2024 3:32 PM [facility] MCV 93.9 80.0 - 98.0 fL 04/13/2024 3:32 PM [facility] MCH 29.1 26.7 - 33.6 pg 04/13/2024 3:32 PM [facility] MCHC 31.0(L) 31.7 - 36.3 g/dL 04/13/2024 3:32 PM [facility] RDW-CV 13.2 11.3 - 14.8 % 04/13/2024 3:32 PM [facility] Platelet Count 253 150 - 420 x10E9/L 04/13/2024 3:32 PM [facility] MPV 10.2 7.8 - 11.4 fL 04/13/2024 3:32 PM [facility] Neutrophil % 79.0(H) 41.0 - 74.0 % 04/13/2024 3:32 PM [facility] Lymphocyte % 10.8(L) 17.0 - 47.0 % 04/13/2024 3:32 PM [facility] Monocyte % 7.3 3.0 - 11.0 % 04/13/2024 3:32 PM [facility] Eosinophil % 1.5 0.0 - 7.0 % 04/13/2024 3:32 PM [facility] Basophil % 0.3 0.0 - 1.6 % 04/13/2024 3:32 PM [facility] Immature Granulocytes % 1.1(H) 0.0 - 1.0 % 04/13/2024 3:32 PM DAY PORTER [facility] Neutrophil Absolute 9.32(H) 1.60 - 7.50 x10E9/L 04/13/2024 3:32 PM DAY PORTER [facility] Lymphocyte Absolute 1.27 1.00 - 4.40 x10E9/L 04/13/2024 3:32 PM DAY PORTER [facility] Monocyte Absolute 0.86 0.15 - 1.00 x10E9/L 04/13/2024 3:32 PM DAY PORTER [facility] Eosinophil Absolute 0.18 0.00 - 0.60 x10E9/L 04/13/2024 3:32 PM DAY PORTER [facility] Basophil Absolute 0.04 0.00 - 0.13 x10E9/L 04/13/2024 3:32 PM DAY PORTER [facility] Blood BLOOD SPECIMEN / Unknown 04/13/2024 3:21 PM DAY PORTER 04/13/2024 3:25 PM DAY PORTER [facility] LAB - HEMATOLOGY ORDERABLES Fin al Result Performing Organization Address City/State/[facility] Co de Phone Number [facility] [address] [place], [place] [phone] documented in this encounter Visit Diagnoses Not on filedocumented in this encounter Care Teams Beach Patrol Lieutenant Relationship Specialty Start Date End Date Carlos Moran MD PCP - General Internal Medicine 04/24/17 documented as of this encounter
--- OUTSIDE RECORDS SUMMARY | 2024-09-06 10:48 | XMS_ITS | Encounter Summary ---
Author Organization [facility] Healthcare Address [address] [place] [address] Care Team Providers Care Clinical Allergist Name Role Phone Nicolas Jung MD Unavailable [phone] Louie Lomeli MD Unavailable [phone] Melchor Woodard MD Primary Care Provider [phone] Jairo Sparrow MD Unavailable [phone] Encounter Details Date Type Department Care Team (Late st Contact Info) Description 08/13/2024 Telephone [facility] [address] [place] [address] Jairo Sparrow MD [address] [place] [address] [address] [place] [address] Social History Tobacco Use Types Packs/Day Years [...] materials from doctor or pharmacy Sometimes 01/17/2024 [facility] Utilities Answer Date Recorded In the past 12 months has th e electric, gas, oil, or water company threatened to shut off services in your home? No 07/31/2024 Social Connection and Isolat ion Panel [NHANES] Answer Date Recorded In a typical week, how many times do you talk on the phone with family, friends, or neighbors? More than three times a week 07/31/2024 How often do you get togethe r with friends or relatives? Twice a week 07/31/2024 How often do you attend chur ch or religion services? Never 07/31/2024 Do you belong to any clubs o r organizations such as holiness groups, unions, fraternal or athletic groups, or school groups? No 07/31/2024 How often do you attend meet ings of the clubs or organizations you belong to? Never 07/31/2024 Are you , , di vorced, , never , or living with a partner? 07/31/2024 AUDIT-C Answer Date Recorded Q1: How often [...] food, housing, medical care, and heating? Not very hard 07/31/2024 PHQ-2 Answer Date Recorded PHQ-2 Total Score [...] the money to buy more. Never true 08/01/19 25 Within the past 12 months, t he food you bought just didn't last and you didn't have money to get more. Never true 07/31/2024 PRAPARE - Transportation Answer Date Re corded In the past 12 months, has l ack of transportation kept you from medical appointments or from getting medications? No 05/2024 In the past 12 months, has l ack of transportation kept you from meetings, work, or from getting things needed for daily living? No 07/31/2024 Housing Stability Vital Sign Answer Víctor e [...] place to sleep or slept in a penitentiary (including now)? No 08/29/2023 Housing Stability Vital Sign Answer Víctor e Recorded In the last 12 months, was t here a time when you were not able to pay the mortgage or rent on time? No 07/31/2024 In the past 12 months, how m any times have you moved where you were living? 1 07/31/2024 At any time in the past 12 m [facility], were you homeless or living in a penitentiary (including now)? No 07/31/2024 Personal Safety Answer Date Recorded Have you ever been in or are you currently in a harmful physical or emotional relationship or is someone making you feel afraid or unsafe? Denies 08/10/2024 Education Answer Date Recorded What is the highest level of school you have completed or the highest degree you have received? Some college, no degree 08/29/2023 Sex and Gender Information Value Date Recorded Sex Assigned at Not on file Legal Sex Male 12:23 AM TILE PROFESSIONAL Gender Identity Not on file Sexual Orientation Not on file documented as of this encounter Miscellaneous Notes * Telephone Encounter - Alyson Parnell - 08/13/2024 10:30 AM CDT Patient was seen in the hospital recently by Dr Harris and Effie. It was recommended that patient go ahead and schedule the tilt table test which Dr Sparrow ordered last year. The original order has and a new one needs to be placed in [facility] and faxed to [facility] in [place], [place]. documented in this encounter Plan of Treatment Not on file documented as of this encounter Visit Diagnoses Not on filedocumented in this encounter Care Teams Clinical Allergist Relationship Specialty Start Date End Date Melchor Woodard MD PCP - General Family Practice 07/30/22 Nicolas Jung MD Surgeon Orthopedic Surgery 08/05/21 Louie Lomeli MD Consulting Physician Cardiology 12/23/21 Jairo Sparrow MD [address] [facility] [place] [address] Consulting Physician Neurology 12/14/22 documented as of this encounter
--- OUTSIDE RECORDS SUMMARY | 2024-09-06 10:48 | XMS_ITS | Clinical Summary ---
Author [facility] Address [address] [place] [address] Care Team Providers Care Dancer Or Choreographer Name Role Phone Melchor Woodard MD Primary Care Provider [phone] Allergies Active Allergy Reactions Criticality Noted Date Comments Ceftriaxone Nausea and Vomiting Low 09/23/2021 Otwqbdj-Eji-Egy Reductase Inhibitors Other (See Comments) Low 01/26/2018 [...] ZOSTER VACCINE Completed 03/19/2020, 11/2018, 03/27/[address] [place] [id number] Care Teams Dancer Or Choreographer Relationship Specialty Start Date End Date Melchor Woodard MD PCP - General Family Practice 09/28/22
--- OUTSIDE RECORDS SUMMARY | 2024-09-06 10:48 | XMS_ITS | Encounter Summary ---
Author Organization [facility] Healthcare Address [address] [place] [address] Care Team Providers Care Physiotherapist'S Assistant Name Role Phone Nicolas Jung MD Unavailable [phone] Louie Lomeli MD Unavailable [phone] Melchor Woodard MD Primary Care Provider [phone] Jairo Sparrow MD Unavailable [phone] Maria Eugenia Navarrete [facility] Unavailable [phone] Encounter Details Date Type Department Care Team (Late st Contact Info) Description 01/24/2023 Orders Only [facility] [address] [address] [address] [place] [address] Miah Rodrigues MA Pre-op testing [...] week 12/24/2021 How often do you attend [facility] or mu-ism services? Never 12/24/2021 Do you belong to any clubs o r organizations such as zoroastrianism groups, unions, fraternal or athletic groups, or [...] or slept in a [facility] (including now)? No 12/24/2021 Sex and Gender Information Value Date Recorded Sex Assigned at Not on file Legal Sex Male 12:23 AM STOVE FITTER Gender Identity Not on file Sexual Orientation [...] COVID: Suspected 06/12/2024 06/12/2024 06/12/2024 4:34 PM STOVE FITTER COVID: Suspected 07/30/2024 07/30/2024 07/30/2024 4:38 PM CDT documented as of this encounter Care Teams Physiotherapist'S Assistant Relationship Specialty Start Date End Date Melchor Woodard MD PCP - General Family Practice 07/30/22 Nicolas Jung MD Surgeon Orthopedic Surgery 08/05/21 Louie Lomeli MD Consulting Physician Cardiology 12/23/21 Jairo Sparrow MD [address] [place] [address] [place] [address] Consulting Physician Neurology 12/14/22 Maria Eugenia Navarrete, [address] [place] [address] Pharmacist Pharmacy 03/12/24 03/12/24 documented as of this encounter
--- OUTSIDE RECORDS SUMMARY | 2024-09-06 10:48 | XMS_ITS | Clinical Summary ---
Author Organization [facility] Address [address] [place] [address] Care Team Providers Care Franchise Sales Manager Name Role Phone Carlos Moran MD Primary Care Provider [phone] Source Comments [facility],non-owned Affiliates and Associated Physician Practices is amultiple site organization consisting of ambulatory clinics and hospital sitesin [place], [place], [place] and [place]. This disclosure is being madepursuant to the Care Everywhere program and may not contain all information available regarding this patient. Last updated 18.[facility] Allergies No known active allergies Medications * Be aware that medications may not be up to date on this document. Alwaysverify current medications with the patient. diphenhydrAMINE (BENADRYL) 25 MG capsule Take 50 mg by mouth nightly as needed for Itching Active furosemide (LASIX) 40 MG tablet Take 40 mg by mouth once daily 8 Active hydrOXYzine hcl (ATARAX) 25 MG tabletIndication s:Rash and other nonspecific skin eruption Take 1-2 tablets by mouth at bedtime As needed for itching. 60 tablet 2 8 Active gabapentin (NEURONTIN) 300 MG capsuleIndicatio ns:Rash and other nonspecific skin eruption Take 1 capsule by mouth 3 times daily 90 capsule 3 8 Active Additional Information Patient not taking.Reported on 05/30/2018 triamcinolone acetonide (KENALOG) 0.1 % ointmentIndicati ons:Rash and other nonspecific skin eruption Apply to affected areas on arms, legs, back twice daily. 30 days supply. 454 g 5 9 Active Active Problems Problem Noted Date Diagnosed [...] on file Legal Sex Male 11:59 AM UI UX DEVELOPER Gender Identity Not on file Sexual Orientation Not on file Last Filed Vital Signs Vital Sign Reading Time Taken Comments Blood Pressure 136/78 04/24/2017 10:32 AM UI UX DEVELOPER Pulse 78 04/24/2017 10:32 AM UI UX DEVELOPER Temperature 36.8 C (98.2 F) 04/24/2017 10:32 AM UI UX DEVELOPER Respiratory Rate - - Oxygen Saturation - - Inhaled Oxygen Concentration - - Weight 104.8 kg (231 lb) 04/24/2017 10:32 AM UI UX DEVELOPER Height 177.8 cm (5' 10 ) 04/24/2017 10:32 AM UI UX DEVELOPER Body Mass Index 33.15 04/24/2017 10:32 AM UI UX DEVELOPER Plan of Treatment Upcoming Encounters Date Type Department Care Team (Late st Contact Info) Description 12/20/2024 11:00 AM CDT Appointment [facility] [address] [address] Lisa Singh MD [address] [id number] Health Maintenance Due Date Last Done Comments [...] 2) 2002 AAA SCREENING 2017 COVID-19 VACCINE ( season) 2024 03/25/2021, 07/08/2020, 06/10/2020 DEPRESSION SCREENING 05/02/2024 INFLUENZA VACCINE (Season Ended) 2024 02/10/2021, 03/19/2020, 02/02/2019, Additional history exists Respiratory Syncytial Virus (RSV) Vaccine Pt: or [...] Comments LIPID PROFILE STAT 04/13/2024 3:21 PM UI UX DEVELOPER from Last 3 Months or Most Recently Relevant to Health Maintenance Results * (ABNORMAL) LIPID PROFILE (04/13/2024 3:21 PM UI UX DEVELOPER) Cholesterol 173 <200 mg/dL 04/13/2024 3:48 PM UI UX DEVELOPER [facility] Triglycerides 179(H) <150 mg/dL 04/13/2024 3:48 PM UI UX DEVELOPER [facility] HDL Cholesterol 26(L) >40 mg/dL 4 3:48 PM UI UX DEVELOPER [facility] LDL Calculated 111 <130 mg/dL 04/13/2024 3:48 PM UI UX DEVELOPER [facility] VLDL Calculated 36(H) <=30 mg/dL 4 3:48 PM UI UX DEVELOPER [facility] Chol HDL Ratio 6.7(H) <4.5 04/13/2024 3:48 PM UI UX DEVELOPER [facility] LDL/HDL Ratio 4.3 <5.0 04/13/2024 3:[address] [facility] Blood BLOOD SPECIMEN / Unknown Venipuncture / Unknown 04/13/2024 3:21 PM UI UX DEVELOPER 04/13/2024 3:25 PM UI UX DEVELOPER Maged Mcdonnell LAB - CHEMISTRY ORDERABLES Holly l Result [facility] [address] [place] [address] from Last 3 Months or Most Recently Relevant to Health Maintenance Insurance [employer] MANAGED MEDICARE ADV Care Teams Franchise Sales Manager Relationship Specialty Start Date End Date Carlos Moran MD PCP - General Internal Medicine 04/24/17
--- OUTSIDE RECORDS SUMMARY | 2024-09-06 10:48 | XMS_ITS | Encounter Summary ---
Author Organization [facility] Healthcare Address [address] [place] [address] Care Team Providers Care Apartment Assistant Manager Name Role Phone Nicolsa Jung MD Unavailable [phone] Luoie Lomeli MD Unavailable [phone] Melchor Woodard MD Primary Care Provider [phone] Jairo Sparrow MD Unavailable [phone] Maria Eugenia Navarrete [facility] Unavailable Encounter Details Date Type Department Care Team (Late st Contact Info) Description 06/02/2023 Telephone [facility] [address] [place] [address] Jonathan Miranda MD [address] [place], [place] [id number] Social History Tobacco Use Types Packs/Day Years [...] How often do you attend chur or baptist services? Never 02/04/2023 Do you belong to any clubs o r organizations such as latter day groups, unions, fraternal or athletic groups, or [...] on file Legal Sex Male 12:23 AM CORPORATE TECHNICAL RECRUITER Gender Identity Not on file Sexual Orientation [...] COVID: Suspected 06/12/2024 06/12/2024 06/12/2024 4:34 PM CORPORATE TECHNICAL RECRUITER COVID: Suspected 07/30/2024 07/30/2024 07/30/2024 4:38 PM CDT documented as of this encounter Care Teams Apartment Assistant Manager Relationship Specialty Start Date End Date Melchor Woodard MD PCP - General Family Practice 07/30/22 Nicolas Jung MD Surgeon Orthopedic Surgery 08/05/21 Louie Lomeli MD Consulting Physician Cardiology 12/23/21 Jairo Sparrow MD [address] [place] [address] [address] [facility] [place] [address] Consulting Physician Neurology 12/14/22 Maria Eugenia Navarrete, [address] [place] [address] Pharmacist Pharmacy 03/12/24 03/12/24 documented as of this encounter
--- OUTSIDE RECORDS SUMMARY | 2024-09-06 10:49 | XMS_ITS | Continuity of Care Document ---
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 [facility], [address], [place], [place], [address], [place] tel:[phone] SEC Arnoldo ECKERT Professional No Information 3 Vicky JOSE JUAN Kita. [address], [address], [place], [place], [address], [place]. tel:[phone] [facility] [employer] 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 [facility] [place] [address], [address], [place], [place], [address], [place]. tel:[phone] Referring Provider: Kita Perry OD L, [facility] [address], [place], [address] . tel:[phone] [facility], [facility] [employer] [address], [place], [place], [address], [place] tel:[phone] SEC Arnoldo ECKERT Professional Cataract Evaluation (chief complaint) Pseudophakia of right eyeCombined forms of age-related cataract, left eyeXT (exotropia)Pt osis of both eyelids 0 1 Waqar Pace. [address], [facility] [address], [place], [place], [address], [place]. tel:[phone] Referring Provider: Sanjeev Barker, [address] [facility], [place], [address] . tel:[phone] [facility]pa tient [facility], [facility], [facility] [employer], [place], [place], [address], [place] tel:[phone] SEC Arnoldo ECKERT Professional WIE (chief complaint) Abrasion of right eyelid, initial encounterEdem a of right upper eyelid Oct-0 0 Waqar Pace. [address], [facility], [place], [place], [address], [place]. tel:[phone] Referring Provider: Sanjeev Barker, [address], [place], [address] . tel:[phone] [facility], [address], [place], [place], [address], [place] tel:[phone] SEC Arnoldo ECKERT Professional 1 month s/p PCIOL (chief complaint) Post op visit 0 Juan F Lam. [address] [facility], [address], [place], [address], [place]. tel:[phone] Referring Provider: Sanjeev Barker, [address], [place], [address] . tel:[phone] Office/outpa tient Visit, Est [facility], [address], [place], [place], [address], [place] tel:[phone] SEC Arnoldo ECKERT Professional WIE (chief complaint) Allergic conjunctiviti s of both eyes 0 Waqar Pace. [address], [address], [place], [place], [address], [place]. tel:[phone] Referring Provider: Sanjeev Barker, [address], [place], [address] . tel:[phone] [facility], [address], [place], [place], [address], [place] tel:[phone] SEC Arnoldo ECKERT Professional 1 day s/p PCIOL (chief complaint) Post op visit 0 Waqar Pace. [address], [address], [place], [place], [address], [place]. tel:[phone] Referring Provider: Sanjeev Barker, [address], [place], [address] . tel:[phone] [facility], [address], [place], [place], [address], [place] tel:[phone] [facility] [place] No Information 0 Annemarie Abelardo. [facility] [address] [employer], [address], [place], [place], [address], . tel:[phone] Referring Provider: Sanjeev Barker, [address] [facility] [address], [place], [address] . tel:[phone] [facility], [address] [place], [place] [address] [address], [place], [place], [address], tel:[phone] SEC [place] No Information 0 [place] Abelardo. [facility] [address], [address], [place], [place], [address], [place]. tel:[phone] Referring Provider: Sanjeev Barker, [address] [facility] [address], [place], [address] . tel:[phone] [facility], [address] [place] [address] [address], [place], [place], [address], tel:[phone] SEC [place] Professional Cataract evaluation (chief complaint) Post op visitCombined forms of age-related cataract, bilateral 0 Annemarie Abelardo. [facility] [address], [address], [place], [place], [address], [place]. tel:[phone] Referring Provider: Sanjeev Barker, [address] [facility] [address], [place], [address] . tel:[phone] [facility], [facility] [employer] [address], [place], [place], [address], [place] tel:[phone] SEC [place] Professional Cataract evaluation (chief complaint) Post op visit 0-201 9 [place] Abelardo. [facility] [address] [employer], [address], [place], [place], [address], . tel:[phone] Referring Provider: Sanjeev Barker, [address] [facility] [address], [place], [address] . tel:[phone] [facility], [address], [place], [place], [address], [place] tel:[phone] SEC Rebekah [place] 1 wk Pterygium excision po (chief complaint) Post op visit 9 Annemarie Zhou. [facility] [address], [address], [place], [place], [address], [place]. tel:[phone] Referring Provider: Sanjeev Barker, [address] [facility] [address], [place], [address] . tel:[phone] [facility], [address], [place], [place], [address], [place] tel:[phone] SEC [place] Pterygium excision (chief complaint) Post op visit 0 9 Annemarie Zhou. [facility] [address], [address], [place], [place], [address], [place]. tel:[phone] Referring Provider: Sanjeev Barker, [address] [facility] [address], [place], [address] . tel:[phone] [facility], [address], [place], [place], [address], [place] tel:[phone] [facility] [place] No Information 9 Annemarie Zhou. [facility] [address] [employer], [address], [place], [place], [address], [place]. tel:[phone] Referring Provider: Sanjeev Barker, [address] [facility] [address], [place], [address] . tel:[phone] Office/outpa tient Visit, Est [facility], [address], [place], [place], [address], [place] tel:[phone] SEC [place] Professional pterygium and cataract (chief complaint) Peripheral pterygium, progressive, left eyeCombined forms of age-related cataract, bilateral Oct- 9 Annemarie Zhou. [address], [address], [place], [place], [address], [place]. tel:[phone] Referring Provider: Sanjeev Barker, [address] [facility] [address], [place], [address] . tel:[phone] [facility], [address], [place], [place], [address], [place] [phone] SEC [place] Professional Complete Exam (chief complaint) Age-related nuclear cataract, bilateralPter ygium of left eyeAllergic conjunctiviti s of both eyes 9 Waqar Pace. [address] [facility], [facility] [address], [place], [place], [address], [place]. tel:[phone] Referring Provider: Sanjeev Barker, [address] [facility] [address], [place], [address] . tel:[phone] [facility], [address], [place], [place], [address], [place] [phone] SEC [place] No Information 9 Asha JOSE JUAN Destiny. [address] [facility], [facility] [address], [place], [address], . tel:[phone] Family History Family Member Type Diagnosis Age At Onset Problem (finding) Family history of Diabe prakash mellitus Payers Payer name Insurance type Covered libertarian ID Authoriza tion(s) AAR Medicare Complete [place] [id number] [place] [id number] Social History Type Description Quantity Date Captured [...]
--- OUTSIDE RECORDS SUMMARY | 2024-09-06 10:49 | XMS_ITS | Encounter Summary ---
Author Organization [facility] Healthcare Address [address] [place] [address] Care Team Providers Care Corporate Tax Preparer Name Role Phone Nicolas Jung MD Unavailable Louie Lomeli MD Unavailable [phone] Melchor Woodard MD Primary Care Provider [phone] Jairo Sparrow MD Unavailable [phone] Encounter Details Date Type Department Care Team (Late st Contact Info) Description 08/09/2024 Documentation [facility] Case Management [address] [place] [address] Rodriguez Goldstein RN Social History Tobacco Use Types Packs/Day Years [...] materials from doctor or pharmacy Sometimes 01/17/2024 [facility] Utilities Answer Date Recorded In [...] often do you attend chur ch or pentecostalism services? Never 07/31/2024 Do you belong to any clubs o r organizations such as restoration groups, unions, fraternal or athletic groups, or [...] any time in the past 12 m [facility], were you homeless or living in a skilled nursing (including now)? 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 Gender Identity Not on file Sexual Orientation Not on file documented as of this encounter Plan of Treatment Not on file documented as of this encounter Visit Diagnoses Not on filedocumented in this encounter Care Teams Corporate Tax Preparer Relationship Specialty Start Date End Date Melchor Woodard MD PCP - General Family Practice 07/30/22 Nicolas Jung MD Surgeon Orthopedic Surgery 08/05/21 Louie Lomeli MD Consulting Physician Cardiology 12/23/21 Jairo Sparrow MD [address] [place] [address] Consulting Physician Neurology 12/14/22 documented as of this encounter
--- OUTSIDE RECORDS SUMMARY | 2024-09-06 10:49 | XMS_ITS | Clinical Summary ---
Author Organization [facility] [address] [facility] Address [address] [facility] [place] [address] Care Team Providers Care Property Insurance Agent Name Role Phone Nicolas Jugn MD Unavailable [phone] Louie Lomeli MD Unavailable [phone] Melchor Woodard MD Primary Care Provider [phone] Jairo Sparrow MD Unavailable [phone] Allergies Active Allergy Reactions Criticality Noted Date Comments Ceftriaxone Nausea only Low 09/23/2021 Bfsldkf-Qgg-Uxt Reductase Inhibitors Other (See comments) Low 01/26/2018 Generalized pain Medications losartan (COZAAR) 25 mg tablet Take 1 tablet (25 mg total) by mouth daily 07/29/19 23 Active levothyroxine (SYNTHROID) 50 mcg tablet Take 1 tablet (50 mcg total) by mouth translation director before breakfast Active aspirin 81 mg enteric coated tablet Take 1 tablet (81 mg total) by mouth daily Not sure if he takes 30 tablet 11 09/02/19 24 Active gabapentin (NEURONTIN) 100 mg capsuleIndicat ions:Diabetic Peripheral Neuropathy Take 2 capsules (200 mg total) by mouth 3 (three) times a day 180 capsule 09/02/19 24 Active Additional Information Patient taking differently: 100 mgoral 3 times daily,Patient taking 1 capsule with breakfast, 1 capsule with lunch and 2 capsules at bedtime. Patients pharmacy also states that patient is noncompliant with taking this medication consistently. He will take 1 capsule in the morning, then sporadically take it at lunch and hardly ever takes it at bedtime., Indications: Diabetic Peripheral Neuropathy, Reported on 08/01/2024 nitroglycerin (NITROSTAT) 0.[address] 1 tablet (0.4 mg total) under the tongue every 5 (five) minutes as needed for chest pain May repeat dose q 5 min, up to 3 doses total 90 tablet 1 09/20/19 24 2024 Active amLODIPine (NORVASC) 10 mg tablet TAKE 1 TABLET (10 MG TOTAL) BY MOUTH DAILY 90 tablet 3 11/04/19 24 2024 Active meclizine (ANTIVERT) 12.5 mg tablet Take 1 tablet (12.5 mg total) by mouth 3 (three) times a day as needed for dizziness 30 tablet 12/31/19 24 Active diclofenac sodium (VOLTAREN) 1 % [...] 06/25/19 25 Active ezetimibe (ZETIA) 10 mg tabletIndicati ons:hyperlipid emia TAKE 1 TABLET (10 MG TOTAL) BY MOUTH DAILY 30 tablet 11 06/27/19 25 2025 Active empagliflozin (JARDIANCE) 25 mg tabletIndicati ons:type 2 diabetes mellitus Take 1 tablet (25 mg total) by mouth daily Active oxyBUTYnin XL (DITROPAN-XL) 10 mg 24 hr tablet Take 1 tablet (10 mg total) by mouth daily Active vibegron (Gemtesa) 75 mg tablet Take 75 mg by mouth daily Active triamcinolone (KENALOG) 0.025 % cream 07/17/19 25 Active HYDROcodone-ac etaminophen (NORCO) 7.5-325 mg per tablet Take 1 tablet by mouth every 4 (four) hours as needed for pain 07/06/19 25 Active metoprolol XL (TOPROL-XL) 25 mg extended release tablet Take 1 tablet (25 mg total) by mouth daily 30 tablet 08/04/19 25 2025 Active calcium carbonate-elsa min D3 1,250mg (500mg elemental) - 5 mcg (200 units) per tablet Take 1 tablet by mouth daily 30 tablet 08/04/19 25 2025 Active famotidine (PEPCID) 20 mg tablet Take 1 tablet (20 mg total) by mouth daily 30 tablet 08/03/19 25 2025 Active traMADoL (ULTRAM) 50 mg tabletIndicati ons:Gouty arthritis of left foot Take 1 tablet (50 mg total) by mouth every 6 (six) hours as needed for pain P.r.n. pain not relieved by prednisone alone. Take 500 mg of acetaminophen with each dose. Take with food. Collaborating physician Jordan Villanueva MD 20 tablet 08/11/19 25 Active predniSONE (DELTASONE) 5 mg tabletIndicati ons:Gouty arthritis of left foot Take 1 tablet (5 mg) by mouth as directed 3 p.o. daily for 5 days then 2 p.o. daily for 5 days then 1 p.o. daily for 5 days. Collaborating physician Jordan Villanueva MD 30 tablet 08/11/19 25 Active isosorbide mononitrate ER (IMDUR) 30 mg 24 hr tablet Take 1 tablet (30 mg total) by mouth daily Patient needs to call for appointment before any more refills will be given 30 tablet 08/24/19 25 2024 Active isosorbide mononitrate ER (IMDUR) 30 mg 24 hr tablet Take 1 tablet (30 mg total) by mouth daily 30 tablet 09/20/19 24 2024 Discontinued Active Problems Problem Noted Date Diagnosed Date Gouty arthritis of left foot 08/10/2024 Dizziness 07/30/2024 Nocturnal hypoxia 04/10/2024 Chest pain due to [...] 06/01/2022 Assessment & Plan (06/01/2022 3:29 PM PHOTOGRAPHY EDITOR): Worsening, patient reports symptoms are worse 1st thing in the morning, has to clean eyes before can open; fewer symptoms throughout the day; most consistent with allergic conjunctivitis Start azelastine eyedrops Diabetic neuropathy, type II diabetes mellitus 0 05/27/2022 LALITO (acute kidney injury) 03/10/2022 Obesity (BMI 30-39.9) 03/10/2022 Other chest pain 03/09/2022 Assessment & Plan (06/01/2022 3:28 PM PHOTOGRAPHY EDITOR): Continues to have episodes of chest pain, started in nature; can radiate to right-side of chest Patient reports some relief with ASA; has nitroglycerin Will continue to monitor; if negative cardio workup, consider esophageal spasms of source of pain Assessment & Plan (04/06/2022 11:47 AM PHOTOGRAPHY EDITOR): Reports pressure-like chest pain today, worsening fatigue [...] (12/29/2021): Added automatically from request for surgery [id number] Leukocytosis 12/19/2021 UTI (urinary tract infection) 12/19/2021 Coronary artery disease 12/18/2021 Overview (12/18/2021): Added automatically from request for surgery [id number] Assessment & Plan (03/07/2022 9:41 AM PHOTOGRAPHY EDITOR): Not well controlled, patient had stopped taking all medications, had elevated blood pressures today Encouraged patient to continue medications as prescribed Continue Brilinta 90 mg b.i.d., Zetia 10 mg daily Hypertensive crisis 12/16/2021 Assessment & Plan (12/17/2021 12:13 PM CDT): Present on admission, received Labetalol iv, currently resolved NSTEMI (non-ST elevated myocardial infarction) 0 12/16/2021 Overview (12/17/2021): Added automatically from request for surgery [id number] Assessment & Plan (01/10/2022 9:21 PM CDT): [...] Nasal saline spray (Simply saline, Little Remedies, [place], [place]) 2 second sprays or 2 squeezes into [...] (11/18/2020): Added automatically from request for surgery [id number] Assessment & Plan (03/20/2021 4:30 PM PHOTOGRAPHY EDITOR): Stable, patient waiting on improved A1c for [...] (11/18/2020): Added automatically from request for surgery [id number] Scar of vermilion border of upper lip 07/04/2020 Overview (07/04/2020): Referral to plastic surgery for evaluation and possible affects scar tissue Cicatrix 07/04/2020 Tension headache 06/30/2020 Assessment & Plan (06/25/2021 10:33 AM PHOTOGRAPHY EDITOR): Patient has recurrent left-sided tension headaches; likely secondary to pressure on muscles from lipoma Assessment & Plan (06/09/2021 1:59 PM PHOTOGRAPHY EDITOR): Patient has headache for the last 4-6 [...] nostril Assessment & Plan (06/30/2020 12:31 PM PHOTOGRAPHY EDITOR): Patient has severe left sided headache; reports worsened with looking down or leaning back in bed; may be related to sinuses vs tension type headache -given congestion may consider sinus pressure and will refer to ENT Chronic midline low back pain without sciatica 0 06/30/2020 Assessment & Plan (06/30/2020 12:33 PM PHOTOGRAPHY EDITOR): Not well controlled; likely worsened due to poor core strength; encouraged weight loss to reduce strain on lower back (has severe central adiposity) Will give patient core exercises to strengthen low back and abodmen Lipoma of neck 06/25/2020 Assessment & Plan (06/25/2021 10:32 AM PHOTOGRAPHY EDITOR): Not well controlled, patient has left-sided tension style headaches, S with noted changing position of head due to size of lipoma Patient benefit from surgical removal to help improve overall posture as well as potentially improved tension headaches Assessment & Plan (05/14/2021 1:29 PM PHOTOGRAPHY EDITOR): Patient has large lipoma on back left-sided neck; reports left-sided headaches, which may be contributed by lipoma putting pressure on muscles sugar causing tension headaches Referral to Plastic surgery for removal Assessment & Plan (03/20/2021 4:29 PM PHOTOGRAPHY EDITOR): Stable, Impacts patient ability to turn had; will continue monitor refer to surgery when appropriate Primary osteoarthritis of left knee 05/08/2020 Assessment & Plan (11/17/2021 3:53 PM CDT): Continues to have significant pain, has some symptom improvement, but limited range of motion and pain with movement Recent steroid injection Follow-up with orthopedics Assessment & Plan (04/21/2021 2:52 PM PHOTOGRAPHY EDITOR): Stable, continues with physical therapy which is [...] monitor Assessment & Plan (05/14/2021 1:29 PM PHOTOGRAPHY EDITOR): Improving, patient has walked about 12 lb since last visit; encouraged continued dietary changes, decreasing in take through portion control as well as lowering carbohydrate intake Encourage daily activity of 30 minutes of moderate intensity aerobic exercise daily Assessment & Plan (03/20/2021 4:29 PM PHOTOGRAPHY EDITOR): Weight is stable, no significant change; patient [...] week Assessment & Plan (05/05/2020 3:33 PM PHOTOGRAPHY EDITOR): Not well controlled, patient reports weight loss [...] daily Assessment & Plan (06/25/2021 10:31 AM PHOTOGRAPHY EDITOR): Stable, unclear control, patient reports inconsistent medications use Continue levothyroxine 50 mcg daily, check TSH today Assessment & Plan (04/21/2021 2:52 PM PHOTOGRAPHY EDITOR): Stable, well controlled; continue levothyroxine 50 mcg daily Assessment & Plan (03/20/2021 4:28 PM PHOTOGRAPHY EDITOR): Stable, well controlled; continue levothyroxine 50 mcg daily Assessment & Plan (09/24/2020 3:00 PM CDT): Recheck TSH today as previous TSH was mildly elevated, is still elevated will adjust levothyroxine given patient has complaints of generalized fatigue Assessment & Plan (06/16/2020 9:09 AM PHOTOGRAPHY EDITOR): Will recheck thyroid now that has been on medication for ~6 weeks Assessment & Plan (05/05/2020 3:36 PM PHOTOGRAPHY EDITOR): Mild elevation of TSH, patient has multiple symptoms including inability to lose weight, chronic fatigue and chronic tiredness Will start at low dose levothyroxine 25 mcg, will recheck TSH in approximately 6 weeks Arthritis 03/24/2020 DM2 (diabetes mellitus, type 2) 03/24/2020 Assessment & Plan (06/01/2022 3:30 PM PHOTOGRAPHY EDITOR): Not well controlled, A1c has always been [...] diet Assessment & Plan (06/25/2021 10:31 AM PHOTOGRAPHY EDITOR): Stable, improving; patient A1c has been down trending to 7.5 last time, recheck A1c today Continue metformin XR 1000 mg daily Assessment & Plan (05/14/2021 1:28 PM PHOTOGRAPHY EDITOR): Stable, improving; last A1c was decreasing to 7.5 Encouraged patient to continue with low-carbohydrate diet; encourage education dietary changes as well as regular exercise Continue metformin 1000 mg daily Assessment & Plan (04/21/2021 2:52 PM PHOTOGRAPHY EDITOR): Stable, improving; patient reports he has been working on decreasing carbohydrates Has a decreased appetite well on Rybelsuswith minimal side effects Continue metformin 1000 mg daily with breakfast, Rybelsus 7 mg prior to breakfast Continue to monitor encourage continued decreased carbohydrate diet Recheck labs at follow-up appointment Assessment & Plan (03/20/2021 4:28 PM PHOTOGRAPHY EDITOR): Stable, well controlled, improving Patient reports improved [...] diet Assessment & Plan (05/05/2020 3:32 PM PHOTOGRAPHY EDITOR): Not well controlled, A1c is 7.7 today [...] strength Assessment & Plan (03/26/2020 12:24 PM PHOTOGRAPHY EDITOR): Will check blood sugars and A1c to evaluate for control of diabetes on metformin Hyperlipidemia 03/24/2020 Assessment & Plan (12/17/2021 12:16 PM CDT): Pt is not on a statin due to intolerance LDL is 107. Started on Zetia per cardiology. Assessment & Plan (10/13/2021 2:34 PM CDT): Not well controlled, encouraged continued dietary changes and weight loss Assessment & Plan (05/14/2021 1:28 PM PHOTOGRAPHY EDITOR): Not well controlled, patient cannot tolerate statins; encouraged dietary changes order reduce cholesterol through low-fat high-fiber diet Assessment & Plan (05/05/2020 3:35 PM PHOTOGRAPHY EDITOR): Poorly controlled patient has elevated total and LDL cholesterol with knee depressed HDL cholesterol Triglycerides are also elevated at 254 Patient is unable to tolerate statin therapy due to muscular pain of thigh muscles Will encouraged diet and exercise as ways to maintain and modify cholesterol level Hypertension, essential 03/24/2020 Assessment & Plan (06/01/2022 3:30 PM PHOTOGRAPHY EDITOR): Stable, improving; blood pressure today in clinic was normal; patient reports home measurements are improving Continue amlodipine 10 mg daily, hydralazine 25 mg b.i.d., metoprolol 100 mg daily Losartan was previously on medication list, but not part of pharmacy was Given blood pressures appropriate, will continue to monitor, can rehab losartan if blood pressure increases Assessment & Plan (04/06/2022 11:47 AM PHOTOGRAPHY EDITOR): Stable, improving; most recent blood pressure was at target Continue losartan 100 mg daily, metoprolol 100 mg daily, amlodipine 10 mg daily Assessment & Plan (03/07/2022 9:40 AM PHOTOGRAPHY EDITOR): Not well controlled; patient reports that he [...] daily Assessment & Plan (06/25/2021 10:30 AM PHOTOGRAPHY EDITOR): Not well controlled; blood pressure is elevated this morning prior to surgery, elevated again in office Given blood pressure was just normal on 06/09/2021, will increase lisinopril to 40 mg daily Encouraged patient to consistently take medications, with no missed or skipped doses Assessment & Plan (05/14/2021 1:27 PM PHOTOGRAPHY EDITOR): Not well controlled, blood pressure remains elevated; patient has been inconsistent with taking medications Will continue lisinopril 20 mg, follow-up at next appointment; if blood pressure still is elevated will adjust medication Assessment & Plan (03/20/2021 4:27 PM PHOTOGRAPHY EDITOR): Stable well controlled; blood pressure a target; [...] needed Assessment & Plan (05/05/2020 3:34 PM PHOTOGRAPHY EDITOR): Well controlled, patient's blood pressure is at target today Will continue with current therapies and continue to monitor patient Assessment & Plan (03/26/2020 12:24 PM PHOTOGRAPHY EDITOR): Stable well controlled, continue present management Post-traumatic [...] arthroscopy Assessment & Plan (06/16/2020 9:09 AM PHOTOGRAPHY EDITOR): Not well controlled, had relief with cortisone injection, but now has worsening pain; relief last for about 3-4 weeks -has some instability of patella, able to 'adjust' patella to relieve pain and improve ROM Assessment & Plan (05/05/2020 3:34 PM PHOTOGRAPHY EDITOR): Stable, not controlled Patient is not able to consistently place weight on the Patient to follow-up with orthopedics further evaluation, based on recommendations may refer to physical therapy Assessment & Plan (03/26/2020 12:24 PM PHOTOGRAPHY EDITOR): Will start treatment with diclofenac cream, and use of the triamcinolone as necessary If needed will refer to physical therapy for further improvement in pain Polyneuropathy associated with underlying diseas e ([facility]) 10/24/2019 Assessment & Plan (04/06/2022 11:44 AM PHOTOGRAPHY EDITOR): Continues to have numbness and weakness in bilateral legs; patient scheduled nerve conduction study Continue gabapentin 100 mg TID Continue with exercise, and strength training; noted to have decreased strength in hip flexors; normal with knee -if EMG is normal, consider CK or evaluation of polymyalgia or polymysitis Assessment & Plan (05/05/2020 3:34 PM PHOTOGRAPHY EDITOR): Patient has episodes of decreased balance due [...] management Assessment & Plan (06/25/2021 10:32 AM PHOTOGRAPHY EDITOR): Not well controlled, patient continues to have frequent nighttime urination; encouraged patient to continue follow-up with Urology and reschedule surgery Continue myrbetriq 50 mg daily Assessment & Plan (03/20/2021 4:30 PM PHOTOGRAPHY EDITOR): Patient continues to have increased urinary frequency, [...] due to embolism of precerebral artery 02/03/2023 Cerebrovascular accident (CV A), unspecified mechanism 12/08/2022 07/15/2023 Statin intolerance 10/13/2021 Encounters Date Type Department Care Team Description 08/13/2024 Orders Only [facility] [address] [place] [address] [address] [place] [address] Effie Avelar NP Dizziness and giddiness (Primary Dx) 08/13/2024 Telephone [facility] [address] [place] [address] Jairo Sparrow MD 08/10/2024 11:13 AM CDT - 08/10/2024 1:21 PM CDT Emergency [facility] Emergency Department [address] [place] [address] Gouty arthritis of left foot (Primary Dx) Discharge Disposition: Discharge to home or self care 08/09/2024 Documentation [facility] Case Management [address] [place] [address] Rodriguez Goldstein RN 07/30/2024 2:40 PM CDT - 08/02/2024 4:22 PM CDT Hospital Encounter [facility] Acute Medicine [address] [place] [address] Krsytal Araujo MD Singh, Arjun, MD Dizziness (Primary Dx); Dehydration; Dizziness and giddiness; Hypertension, essential; Class 2 severe obesity due to excess calories with serious comorbidity and body mass index (BMI) of 35.0 to 35.9 in adult (HCC); Leg weakness, bilateral Discharge Disposition: Discharge to home or self care 07/10/2024 Telephone [facility] [address] [place] [address] Nicolas Jung MD 06/12/2024 12:26 PM PHOTOGRAPHY EDITOR - 06/12/2024 7:11 PM PHOTOGRAPHY EDITOR Emergency [facility] Emergency Department [address] [place] [address] Ovi Villalobos MD Osteoarthritis of left hip, unspecified osteoarthritis type (Primary Dx) Discharge Disposition: Discharge to home or self care from Last 3 Months Immunizations Immunization Administration [...] materials from doctor or pharmacy Sometimes 01/17/2024 [facility] Utilities Answer Date Recorded In the past 12 months has e electric, gas, oil, or water company [...] often do you attend chur ch or alevism services? Never 07/31/2024 Do you belong to any clubs o r organizations such as evangelical groups, unions, fraternal or athletic groups, or [...] any time in the past 12 m [facility], were you homeless or living in [...] on file Legal Sex Male 12:23 AM PHOTOGRAPHY EDITOR Gender Identity Not on file Sexual Orientation Not on file Obstetrics History Last Filed Vital Signs Vital Sign Reading Time Taken Comments Blood Pressure 135/79 08/10/2024 9:55 AM CDT Pulse 79 08/10/2024 9:55 AM CDT Temperature 36.1 C (97 F) 08/10/2024 9:55 AM CDT Respiratory Rate 18 08/10/2024 9:55 AM CDT Oxygen Saturation 96% 08/10/2024 9:55 AM CDT Inhaled Oxygen Concentration - - Weight 113 kg (249 lb 1.9 oz) 08/02/2024 6:00 AM CDT Height 177.8 cm (5' 10 ) 08/01/2024 9:05 AM CDT Body Mass Index 35.74 08/01/2024 9:05 AM CDT Plan of Treatment Health Maintenance Due Date Last Done Comments Hepatitis C Screening 1950 Dilated Eye Exam 1952 Hepatitis B Screening 1970 Well Visit 65+ 2017 Albumin Creatinine Ratio, Urine 10/28/2022 Foot Exam 10/28/2022 10/28/2021 Colon Cancer Screening-DNA Stool 12/01/2023 12/01/19 21 Covid-19 Vaccine (2023- 5 season) 2024 03/25/2021, 07/08/2020, 06/10/2020 Depression Screening 08/27/2024 08/28/2023, 05/27/2022, 03/09/2022, Additional history exists Hemoglobin A1C 10/12/2024 04/13/2024, 08/02, 06/10/2023, Additional history exists Influenza Vaccine (Season Ended) 2024 02/10/2021, 03/19/2020, 03/18/2020, Additional history exists Lipid Panel 04/13/2025 04/13/2024, 08/01, 02/04/2023, Additional history exists Fall Risk Assessment 08/02/2025 08/02/2024, 01/05/2022, 10/07/2021, Additional history exists eGFR 08/10/2025 08/10/2024, 06/2024, 08/01/2024, Additional history exists DTaP/Tdap/Td Vaccine (3 - Td or Tdap) 02/12/2030 02/13/2020, 12/11/2015 Pneumococcal vaccine 65+ Completed 09/27/2017, 03/02 Zoster Vaccine Completed 03/19/2020, 11/2018, 03/27/2018 Prostate Cancer Screening-PSA Discontinued 10/28/2021 Medical Devices Implanted Type Area Board Certified Arts Therapist Device Identifier Shelf Expiration Date Model / Serial / Lot [employer] Days[employer] Synergy Xd Monorail 3.5mm 12mm 144cm Delivery System 1 Access [id number] - [id number] Implanted:Qty: 1 on 08/29/2023 by Louie Lomeli MD at [facility] Stent [employer] 10/19/2024 [id number] / / [id number] [employer] Stent Coronary De Rx Cocr Xience Skypoint [id number] - [id number] Implanted:Qty: 1 on 12/17/2021 by Louie Lomeli MD at [facility] [employer] 08/24/2023 [id number] [employer] Stent Coronary De Rx Cocr Xience Skypoint [id number] - [id number] Implanted:Qty: 1 on 12/17/2021 by Louie Lomeli MD at [facility] [employer] 08/28/2023 [id number] [employer] Daysi Synergy 3mm 16mm 144cm Radiopaque 1 Access Port Inflation Lumen [id number] - [id number] Implanted:Qty: 1 on 12/22/2021 by Louie Lomeli MD at [facility] [employer] Daysi 09/04/2022 [id number] / / [id number] [employer] Daysi Angio-Seal Vip 6fr Closere Device [id number] - [id number] Implanted:Qty: 1 on 12/22/2021 by Louie Lomeli MD at [facility] 09/29/2022 [id number] / / [id number] Procedures Procedure Name Priority Date/Time Associated Diagnosis Comments EGFR STAT 08/10/2024 11:58 AM CDT DIFFERENTIAL AUTO STAT 08/10/2024 11: 58 AM CDT URIC ACID STAT 08/10/2024 11:58 AM CDT CRP (ACUTE PHASE) STAT 08/10/2024 11: 58 AM CDT ERYTHROCYTE SEDIMENTATION RATE STAT 08/10/2024 11:58 AM CDT COMPREHENSIVE METABOLIC PANEL STAT 08/10/2024 11:58 AM CDT CBC WITH AUTO DIFFERENTIAL STAT 08/10/2024 11:58 AM CDT XR FOOT LEFT 3 OR MORE VIEWS ED 08/10/2024 10:10 AM CDT POCT GLUCOSE DEVICE Routine 08/02/2024 1 1:54 AM CDT POCT GLUCOSE DEVICE Routine 08/02/2024 8 :05 AM CDT EGFR Routine 08/02/2024 4:04 AM CDT DIFFERENTIAL AUTO Routine 08/02/2024 4:0 4 AM CDT CBC WITH AUTO DIFFERENTIAL Routine 08/02/2024 4:04 AM CDT COMPREHENSIVE METABOLIC PANEL Routine 08/02/2024 4:04 AM CDT POCT GLUCOSE DEVICE Routine 08/02/2024 1:52 AM CDT POCT GLUCOSE DEVICE Routine 08/01/2024 7 :54 PM CDT POCT GLUCOSE DEVICE Routine 08/01/2024 4 :25 PM CDT MRI THORACIC SPINE WO CONTRAST IP Routine 08/01/2024 3:24 PM CDT MRI CERVICAL SPINE WO CONTRAST IP Routine 08/01/2024 3:13 PM CDT MRI BRAIN WO CONTRAST IP Routine 08/01/2024 1:52 PM CDT POCT GLUCOSE DEVICE Routine 08/01/2024 1 1:37 AM CDT POCT GLUCOSE DEVICE Routine 08/01/2024 7 :44 AM CDT EGFR Routine 08/01/2024 5:53 AM CDT DIFFERENTIAL AUTO Routine 08/01/2024 5:5 3 AM CDT CBC WITH AUTO DIFFERENTIAL Routine 08/01/2024 5:53 AM CDT MAGNESIUM Routine 08/01/2024 5:53 AM CDT COMPREHENSIVE METABOLIC PANEL Routine 08/01/2024 5:53 AM CDT POCT GLUCOSE DEVICE Routine 08/01/2024 1 :32 AM CDT POCT GLUCOSE DEVICE Routine 07/31/2024 8 :49 PM CDT POCT GLUCOSE DEVICE Routine 07/31/2024 4 :16 PM CDT POCT GLUCOSE DEVICE Routine 07/31/2024 1 1:47 AM CDT EGFR Routine 07/31/2024 6:59 AM CDT DIFFERENTIAL AUTO Routine 07/31/2024 6:5 9 AM CDT CBC WITH AUTO DIFFERENTIAL Routine 07/31/2024 6:59 AM CDT MAGNESIUM Routine 07/31/2024 6:59 AM CDT COMPREHENSIVE METABOLIC PANEL Routine 07/31/2024 6:59 AM CDT THYROID FUNCTION CASCADE Routine 07/31/2024 6:57 AM CDT POCT GLUCOSE DEVICE Routine 07/31/2024 3 :46 AM CDT POCT GLUCOSE DEVICE Routine 07/31/2024 1 2:06 AM CDT POCT GLUCOSE DEVICE Routine 07/30/2024 9 :50 PM CDT SEPSIS LACTATE WITH REFLEX Timed 07/30/2024 7:46 PM CDT TROPONIN T HIGH-SENSITIVITY 6-HOUR Timed 07/30/2024 7:46 PM CDT POCT GLUCOSE DEVICE Routine 07/30/2024 6 :59 PM CDT TROPONIN T HIGH-SENSITIVITY 4-HR Timed 07/30/2024 5:07 PM CDT TROPONIN T HIGH-SENSITIVITY 2-HOUR Timed 07/30/2024 4:31 PM CDT SEPSIS LACTATE WITH REFLEX Timed 07/30/2024 4:[address] HEAD WO CONTRAST ED 07/30/2024 4 :[address] LUMBAR SPINE WO CONTRAST ED 07/30/2024 4:19 PM CDT INFLUENZA A/B, RSV, AND COVID-19 PCR STAT 07/30/2024 3:52 PM CDT URINALYSIS AND REFLEX TO MICROSCOPIC AND CULTURE STAT 07/30/2024 3:06 PM CDT EGFR STAT 07/30/2024 1:57 PM CDT DIFFERENTIAL AUTO STAT 07/30/2024 1:5 7 PM CDT SEPSIS LACTATE WITH REFLEX Routine 07/30/2024 1:57 PM CDT COMPREHENSIVE METABOLIC PANEL STAT 07/30/2024 1:57 PM CDT CBC WITH AUTO DIFFERENTIAL STAT 07/30/2024 1:57 PM CDT TROPONIN T HIGH-SENSITIVITY SERIES (BASELINE, 2HR, 4HR, 6HR) STAT 07/30/2024 1:56 PM CDT ECG 12-LEAD STAT 07/30/2024 1:50 PM CDT XR CHEST 1 VIEW ED 07/30/2024 1:[address] HIP LEFT WO CONTRAST ED 06/12/2024 4:25 PM PHOTOGRAPHY EDITOR URINALYSIS, MICROSCOPIC ONLY STAT 06/12/2024 3:30 PM PHOTOGRAPHY EDITOR URINALYSIS AND REFLEX TO MICROSCOPIC AND CULTURE STAT 06/12/2024 3:30 PM PHOTOGRAPHY EDITOR INFLUENZA A/B, RSV, AND COVID-19 PCR STAT 06/12/2024 3:30 PM PHOTOGRAPHY EDITOR ECG 12-LEAD STAT 06/12/2024 3:23 PM PHOTOGRAPHY EDITOR XR KNEE LEFT 3 VIEWS ED 06/12/2024 1:01 PM PHOTOGRAPHY EDITOR XR HIP LEFT 2 OR 3 VIEWS ED 06/12/2024 1:01 PM PHOTOGRAPHY EDITOR POCT GLUCOSE DEVICE Routine 06/12/2024 1 2:46 PM PHOTOGRAPHY EDITOR HEMOGLOBIN A1C Routine 08/30/2023 2:23 AM CDT [...] Relevant to Health Maintenance Results * (ABNORMAL) eGFR (08/10/2024 11:58 AM CDT) eGFR 57(L) >=60 mL/min/1. 73 m2 Comment: Interpretive Data [...] interpretive data was last reviewed 2021. Blood 08/10/2024 11:5 8 AM CDT 08/10/2024 12:00 PM CDT us Stanley RIZVI LAB BLOOD ORDERABLES Final R esult [facility] [place] 1 [facility] Department [place] [address] * (ABNORMAL) Differential, auto (08/10/2024 11:58 AM CDT) Neutrophil abs 10.62(H) 1.50 - 6.50 K/cumm Imm gran abs 0.15(H) 0.00 - 0.10 K/cumm [facility] ([place]) Lymphocyte abs 1.22 0.80 - 3.30 K/cumm [facility] ([place]) Monocyte abs 0.92(H) 0.20 - 0.80 K/cumm [facility] ([place]) Eosinophil abs 0.03 0.00 - 0.50 K/cumm [facility] ([place]) Basophil abs 0.05 0.00 - 0.10 K/cumm [facility] ([place]) Neutrophil pct 81.7 % [facility] ([place]) Comment: Interpretive Data Percent cell count reference ranges are not reported, since discordance with absolute values may lead to misinterpretation of CBC data. Current Interpretive Data was last revised on 2017. Imm gran pct 1.2 % [facility] ([place]) Comment: Interpretive Data Percent cell count reference ranges are not reported, since discordance with absolute values may lead to misinterpretation of CBC data. Current Interpretive Data was last revised on 2017. Lymphocyte pct 9.4 % [facility] ([place]) Comment: Interpretive Data Percent cell count reference ranges are not reported, since discordance with absolute values may lead to misinterpretation of CBC data. Current Interpretive Data was last revised on 2017. Monocyte pct 7.1 % [facility] ([place]) Comment: Interpretive Data Percent cell count reference ranges are not reported, since discordance with absolute values may lead to misinterpretation of CBC data. Current Interpretive Data was last revised on 2017. Eosinophil pct 0.2 % [facility] ([place]) Comment: [...] Data was last revised on 2017. Blood 08/10/2024 11:5 8 AM CDT 08/10/2024 12:00 PM CDT Stanley RIZVI LAB BLOOD ORDERABLES Final R esult [facility] ([place]) 1 [facility] [place] [address] * (ABNORMAL) CBC with auto differential (08/10/2024 11:58 AM CDT) WBC 12.99(H) 3.80 - 9.90 K/cumm Hgb 17.0 13.0 - 17.5 g/dL [facility] ([place]) Hct 51.7(H) 38.9 - 50.3 % [facility] ([place]) Plt 206 150 - 400 K/cumm [facility] ([place]) MPV 9.8 9.1 - 12.3 fL [facility] ([place]) RBC 5.66 4.30 - 5.80 M/cumm [facility] ([place]) MCV 91.3 81.3 - 96.4 fL [facility] ([place]) MCH 30.0 27.1 - 33.3 pg [facility] ([place]) MCHC 32.9 32.3 - 35.7 g/dL [facility] ([place]) RDW CV 14.2 11.1 - 14.9 % [facility] ([place]) RDW SD 47.7 35.7 - 48.1 fL [facility] NRBC abs 0.00 0.00 - 0.01 K/cumm [facility] ([place]) Blood 08/10/2024 11:5 8 AM CDT 08/10/2024 12:00 PM CDT Stanley RIZVI LAB BLOOD ORDERABLES Final R esult [facility] ([place]) 1 [facility] [place] [address] * Erythrocyte sedimentation rate (08/10/2024 11:58 AM CDT) Erythrocyte sedimentation rate 11 1 - 20 mm/hr Blood 08/10/2024 11:5 8 AM CDT 08/10/2024 12:00 PM CDT Stanley RIZVI LAB BLOOD ORDERABLES Final R esult [facility] ([place]) 1 [facility] [place] [address] * (ABNORMAL) CRP (acute phase) (08/10/2024 11:58 AM CDT) Pathologist [facility] CRP 19.1(H) <=10.0 mg/L Blood 08/10/2024 11:5 8 AM CDT 08/10/2024 12:00 PM CDT Stanley RIZVI LAB BLOOD ORDERABLES Final R esult Performing Organization Address City/[facility] Co de Phone Number [facility] ([place]) 1 [facility] [place] [place] [address] * (ABNORMAL) Uric acid (08/10/2024 11:58 AM CDT) [facility] Uric acid 8.8(H) 3.0 - 8.0 mg/dL Blood 08/10/2024 11:5 8 AM CDT 08/10/2024 12:00 PM CDT Stanley RIZVI LAB BLOOD ORDERABLES Final R esult [facility] ([place]) 1 [facility] [place] [place] [address] * (ABNORMAL) Comprehensive metabolic panel (08/10/2024 11:58 AM CDT) Pathologist [facility] Sodium 141 135 - 145 mmol/L Potassium, pl 3.5 3.3 - 4.9 mmol/L [facility] ([place]) Chloride 104 97 - 110 mmol/L [facility] ([place]) CO2 24 22 - 32 mmol/L [facility] ([place]) Anion gap 14 2 - 15 mmol/L [facility] ([place]) BUN 19 6 - 25 mg/dL [facility] ([place]) Creatinine 1.33(H) 0.80 - 1.30 mg/dL [facility] ([place]) Glucose 154 70 - 199 mg/dL [facility] ([place]) Comment: Interpretive Data Fasting glucose >/= 126 mg/dl is diagnostic for diabetes. Fasting is defined as no caloric intake [...] interpretive data was last revised 2022. Calcium 9.4 8.5 - 10.3 mg/dL [facility] ([place]) Bilirubin, total 0.5 0.1 - 1.2 mg/dL [facility] ([place]) Protein, pl 7.4 6.5 - 8.5 g/dL [facility] ([place]) Albumin 4.1 3.5 - 5.0 g/dL [facility] ([place]) Alk phos 120 40 - 130 Units/L [facility] ([place]) ALT 13 7 - 55 Units/L [facility] ([place]) AST 13 10 - 50 Units/L [facility] ([place]) Blood 08/10/2024 11:5 8 AM CDT 08/10/2024 12:00 PM CDT us Stanley RIZVI LAB BLOOD ORDERABLES Final R esult [facility] ([place]) 1 [facility] Department [place] [address] * XR Foot Left 3 or More Views (08/10/2024 10:10 AM CDT) Anatomical Region Laterality Modality Lower Extremities, Foot Left Computed Radiography 08/10/2024 10:5 2 AM CDT Narrative 08/10/2024 10:58 AM CDT EXAM DESCRIPTION: XR FOOT LEFT 3 OR MORE VIEWS REASON FOR STUDY: pain to foot Pt to ED via [facility]. Per Pt he has had left foot pain x3 days. Pt reports a previous injury to his left foot 27 years ago. Pt denies any new injury. Pt pain is when he is walking. TECHNIQUE: 4 radiographic view(s) of the left foot . COMPARISON: 04/06/2024. FINDINGS: No gross malalignment on nonweightbearing views. Mild midfoot osteoarthritis. Small heel spur and Achilles insertion enthesophyte are present.. No radiopaque foreign body. IMPRESSION: No acute osseous findings. Mild left midfoot osteoarthritis. Small heel spur and Achilles insertion enthesophyte. THIS IS AN ELECTRONICALLY VERIFIED FINAL REPORT 08/10/2024 10:58 AM - Electronically signed by Lawrence Clark M.D. MZ: INGRID Report ID: [id number] Reading Location: [id number] Procedure Note Lawrence Clark MD - 08/10/2024 EXAM DESCRIPTION: XR FOOT LEFT 3 OR MORE VIEWS REASON FOR STUDY: pain to foot Pt to ED via [facility]. Per Pt he has had left foot pain x3 days. Pt reports a previous injury to his left foot 27 years ago. Pt denies any new injury. Pt pain is when he is walking. TECHNIQUE: 4 radiographic view(s) of the left foot . COMPARISON: 04/06/2024. FINDINGS: No gross malalignment on nonweightbearing views. Mild midfoot osteoarthritis. Small heel spur and Achilles insertion enthesophyte are present.. No radiopaque foreign body. IMPRESSION: No acute osseous findings. Mild left midfoot osteoarthritis. Small heelspur and Achilles insertion enthesophyte. THIS IS AN ELECTRONICALLY VERIFIED FINAL REPORT 08/10/2024 10:58 AM - Electronically signed by Lawrence Clark M.D. MZ: MZ Report ID: [id number] Reading Location: [place] [id number] us Xavi Murray MD IMG XR PROCEDURES F inal Result * POCT glucose (08/02/2024 11:54 AM CDT) Glucose, POC 163 70 - 199 mg/dL Blood 08/02/2024 11:5 4 AM CDT 08/02/2024 11:54 AM CDT us Corey Russo MD LAB POCT ORDERABLES - DEVICE Fin al Result [facility] ([place]) 1 [facility] [place] [address] * POCT glucose (08/02/2024 8:05 AM CDT) Glucose, POC 123 70 - 199 mg/dL Blood 08/02/2024 8:05 AM CDT 08/02/2024 8:05 AM CDT us Corey Russo MD LAB POCT ORDERABLES - DEVICE Fin al Result [facility] ([place]) [address] [place] [address] [place] [address] * (ABNORMAL) eGFR (08/02/2024 4:04 AM CDT) eGFR 52(L) >=60 mL/min/1. 73 m2 Comment: Interpretive Data [...] interpretive data was last reviewed 2021. Blood 08/02/2024 4:04 AM CDT 08/02/2024 5:06 AM CDT us Krystal Araujo MD LAB BLOOD ORDERABLES Fi nal Result [facility] ([place]) 1 [facility] Department [place] [address] * (ABNORMAL) Differential, auto (08/02/2024 4:04 AM CDT) Neutrophil abs 6.45 1.50 - 6.50 K/cumm Imm gran abs 0.34(H) 0.00 - 0.10 K/cumm [facility] ([place]) Lymphocyte abs 1.22 0.80 - 3.30 K/cumm [facility] ([place]) Monocyte abs 0.72 0.20 - 0.80 K/cumm [facility] ([place]) Eosinophil abs 0.08 0.00 - 0.50 K/cumm [facility] ([place]) Basophil abs 0.07 0.00 - 0.10 K/cumm [facility] ([place]) Neutrophil pct 72.7 % [facility] ([place]) Comment: Interpretive Data Percent cell count reference ranges are not reported, since discordance with absolute values may lead to misinterpretation of CBC data. Current Interpretive Data was last revised on 2017. Imm gran pct 3.8 % [facility] ([place]) Comment: Interpretive Data Percent cell count reference ranges are not reported, since discordance with absolute values may lead to misinterpretation of CBC data. Current Interpretive Data was last revised on 2017. Lymphocyte pct 13.7 % [facility] ([place]) Comment: [...] was last revised on 2017. Eosinophil pct 0.9 % [facility] ([place]) Comment: Interpretive Data Percent cell count reference ranges are not reported, since discordance with absolute values may lead to misinterpretation of CBC data. Current Interpretive Data was last revised on 2017. Basophil pct 0.8 % [facility] ([place]) Comment: Interpretive Data Percent cell count reference ranges are not reported, since discordance with absolute values may lead to misinterpretation of CBC data. Current Interpretive Data was last revised on 2017. Blood 08/02/2024 4:04 AM CDT 08/02/2024 5:08 AM CDT us Krystal Araujo MD LAB BLOOD ORDERABLES [facility] Result [facility] ([place]) 1 [facility] Department [place] [address] * CBC with auto differential (08/02/2024 4:04 AM CDT) WBC 8.88 3.80 - 9.90 K/cumm Hgb 14.7 13.0 - 17.5 g/dL [facility] ([place]) Hct 44.8 38.9 - 50.3 % [facility] ([place]) Plt 178 150 - 400 K/cumm [facility] ([place]) MPV 10.2 9.1 - 12.3 fL [facility] ([place]) RBC 4.90 4.30 - 5.80 M/cumm [facility] ([place]) MCV 91.4 81.3 - 96.4 fL [facility] ([place]) MCH 30.0 27.1 - 33.3 pg [facility] ([place]) MCHC 32.8 32.3 - 35.7 g/dL [facility] ([place]) RDW CV 13.9 11.1 - 14.9 % [facility] ([place]) RDW SD 46.5 35.7 - 48.1 fL [facility] ([place]) NRBC abs 0.00 0.00 - 0.01 K/cumm [facility] ([place]) Blood 08/02/2024 4:04 AM CDT 08/02/2024 5:08 AM CDT us Krystal Araujo MD LAB BLOOD ORDERABLES Fi nal Result [facility] ([place]) 1 [facility] Department [place] [address] * (ABNORMAL) Comprehensive metabolic panel (08/02/2024 4:04 AM CDT) Sodium 143 135 - 145 mmol/L Potassium, pl 3.4 3.3 - 4.9 mmol/L [facility] ([place]) Chloride 106 97 - 110 mmol/L [facility] ([place]) CO2 24 22 - 32 mmol/L [facility] ([place]) Anion gap 13 2 - 15 mmol/L [facility] ([place]) BUN 25 6 - 25 mg/dL [facility] ([place]) Creatinine 1.44(H) 0.80 - 1.30 mg/dL [facility] ([place]) Glucose 132 70 - 199 mg/dL [facility] ([place]) Comment: Interpretive Data Fasting glucose >/= 126 mg/dl is diagnostic for diabetes. Fasting is defined as no caloric intake [...] interpretive data was last revised 2022. Calcium 9.3 8.5 - 10.3 mg/dL [facility] ([place]) Bilirubin, total 0.3 0.1 - 1.2 mg/dL [facility] ([place]) Protein, pl 6.1(L) 6.5 - 8.5 g/dL [facility] ([place]) Albumin 3.6 3.5 - 5.0 g/dL [facility] ([place]) Alk phos 100 40 - 130 Units/L [facility] ([place]) ALT 14 7 - 55 Units/L [facility] ([place]) AST 13 10 - 50 Units/L [facility] ([place]) Blood 08/02/2024 4:04 AM CDT 08/02/2024 5:06 AM CDT us Krystal Araujo MD LAB BLOOD ORDERABLES Fi nal Result Performing Organization Address [facility]/ZIP Co de Phone Number [facility] ([place]) 1 [facility] [place] [employer] [address] * POCT glucose (08/02/2024 1:52 AM CDT) Glucose, POC 130 70 - 199 mg/dL Blood 08/02/2024 1:52 AM CDT 08/02/2024 1:52 AM CDT Corey Russo MD LAB POCT ORDERABLES - DEVICE Fin al Result Performing Organization Address City/[facility] Co de Phone Number [facility] ([place]) 1 [facility] [place] [address] * (ABNORMAL) POCT glucose (08/01/2024 7:54 PM CDT) Glucose, POC 235(H) 70 - 199 mg/dL Blood 08/01/2024 7:54 PM CDT 08/01/2024 7:54 PM CDT Corey Russo MD LAB POCT ORDERABLES - DEVICE Fin al Result Performing Organization Address City/[facility]/ZIP Co de Phone Number [facility] ([place]) 1 [facility] Department [place] [address] * POCT glucose (08/01/2024 4:25 PM CDT) Glucose, POC 118 70 - 199 mg/dL Blood 08/01/2024 4:25 PM CDT 08/01/2024 4:25 PM CDT us Corey Russo MD LAB POCT ORDERABLES - DEVICE Fin al Result [facility] ([place]) 1 [facility] Department [place] [address] * MRI Thoracic Spine WO Contrast (08/01/2024 3:24 PM CDT) Anatomical Region Laterality Modality Spine N/A Magnetic Resonan ce 08/01/2024 4:29 PM CDT Narrative 08/01/2024 4:57 PM CDT EXAM DESCRIPTION: MRI CERVICAL SPINE WO CONTRAST; MRI THORACIC SPINE WO CONTRAST COMPLETED DATE/TIME: 08/01/2024 3:13 pm; 08/01/2024 3:25 pm REASON FOR STUDY: To rule out cervical stenosis He was in usual state of health until since about 2 years he is having dizziness, ongoing vertigo patient has seen ENT physician about 6 months ago as well as neurosurgeon however he was told his ears were okay, may need neck surgery. Scan to rule out stenosi ; Weakness of both lower extremities Weakness of both lower extremities , patient was walking fine a few weeks ago , now he needs a walker, patient has fell because of walking problems. Patient squeezed the call button. He would not let me repeat the axials due to pain. TECHNIQUE: Sagittal and Axial imaging includes T1, T2, STIR and gradient echo sequences. COMPARISON: Cervical spine MRI from 12/13/2022 FINDINGS: Cervical Spine: CERVICAL ALIGNMENT: Unchanged CERVICAL VERTEBRAE: Vertebral body heights are unchanged. No evidence of recent fracture marrow replacing lesion. CERVICAL DISCS: Unchanged overall mild multilevel disc height loss CERVICAL HARDWARE: None in the spine. No gross cord signal abnormality is seen CORD: Normal in size and signal intensity. BASE OF BRAIN: No significant finding. Level by level assessment is degraded by artifact on the axial sequence. C1-C2: No significant spinal stenosis. C2-C3: Disc bulge. [id number] facet arthropathy. Mild uncovertebral arthropathy. Mild right neural foraminal stenosis. Mild spinal canal stenosis C3-C4: Posterior disc osteophyte complex abuts the ventral cord. Ligamentum flavum thickening. Moderate facet and uncovertebral arthropathy. Moderate bilateral neural foraminal stenosis.. Moderate spinal canal stenosis. C4-C5: Posterior disc osteophyte complex. Moderate to severe right and moderate left facet arthropathy. Moderate bilateral uncovertebral arthropathy. Severe left and moderate right neural foraminal stenosis. Severe spinal canal stenosis. No cord signal abnormality identified. C5-C6: Posterior disc osteophyte complex. Moderate bilateral facet and uncovertebral arthropathy. Moderate to severe right and moderate left neural foraminal stenosis. Severe spinal canal stenosis. No cord signal abnormality identified. C6-C7: Disc bulge. Severe right and moderate left facet arthropathy. Moderate bilateral uncovertebral arthropathy. Moderate bilateral neural foraminal stenosis. No significant spinal canal stenosis within limitations of artifact. C7-T1: No significant disc bulge. Moderate bilateral facet and uncovertebral arthropathy. At least mild bilateral neural foraminal stenosis. No significant spinal canal stenosis. CERVICAL OTHER: No other significant finding. Thoracic Spine: THORACIC ALIGNMENT: Normal. THORACIC VERTEBRAE: Marrow signal is T1 heterogeneous but no definite T1 signal hypointense relative to skeletal muscle to indicate marrow replacement. No gross MR evidence for recent fracture or ligamentous injury. THORACIC DISCS: Mild multilevel degenerative disc disease. THORACIC HARDWARE: None in the spine. THORACIC CORD: No gross cord signal abnormality within limitations of artifact THORACIC DISCS T1-T12: Level by level assessment is degraded by motion and other artifacts. There are areas of mild disc bulging. There is prominent dorsal epidural fat throughout much of the thoracic spine. No obvious high-grade stenosis is seen within the limitations of motion and other artifacts, though the thecal sac is narrowed in the midthoracic spine due to dorsal epidural lipomatosis. No high-grade neural foraminal stenosis is seen. In the lower thoracic spine, there is mild neural foraminal stenosis at multiple levels THORACIC OTHER: No other significant finding. SOFT TISSUES: No soft tissue masses. OTHER: No other significant finding. IMPRESSION: Multilevel cervical degenerative disc and joint disease, as detailed level by level above. There is severe spinal canal stenosis at C4-C5 and C5-C6 and moderate spinal canal stenosis at C3-C4, similar to 12/13/2022. No gross cord signal abnormality within limitations of artifact. Multilevel thoracic degenerative disc and joint disease, as detailed level by level above. There is prominent dorsal epidural fat throughout much of the thoracic spine, which grossly mildly narrows the thecal sac . No obvious high-grade stenosis within limitations of motion and other artifacts. THIS IS AN ELECTRONICALLY VERIFIED FINAL REPORT 08/01/2024 4:57 PM - Electronically signed by Lawrence Clark M.D. MZ: INGRID Report ID: [id number] Reading Location: [id number] Procedure Note Lawrence Clark MD - 08/01/2024 EXAM DESCRIPTION: MRI CERVICAL SPINE WO CONTRAST; MRI THORACIC SPINE WO CONTRAST COMPLETED DATE/TIME: 08/01/2024 3:13 pm; 08/01/2024 3:25 pm REASON FOR STUDY: To rule out cervical stenosis He was in usual state of health until since about 2 years he is having dizziness, ongoing vertigo patient has seen ENT physician about 6 monthsago as well as neurosurgeon however he was told his ears were okay, may needneck surgery. Scan to rule out stenosi ; Weakness of both lower extremities Weakness of both lower extremities , patient was walking fine a few weeksago , now he needs a walker, patient has fell because of walking problems. Patient squeezed the call button. He would not let me repeat the axialsdue to pain. TECHNIQUE: Sagittal and Axial imaging includes T1, T2, STIR and gradientecho sequences. COMPARISON: Cervical spine MRI from 12/13/2022 FINDINGS: Cervical Spine: CERVICAL ALIGNMENT: Unchanged CERVICAL VERTEBRAE: Vertebral body heights are unchanged. No evidenceof recent fracture marrow replacing lesion. CERVICAL DISCS: Unchanged overall mild multilevel disc height loss CERVICAL HARDWARE: None in the spine. No gross cord signal abnormality is seen CORD: Normal in size and signal intensity. BASE OF BRAIN: No significant finding. Level by level assessment is degraded by artifact on the axial sequence. C1-C2: No significant spinal stenosis. C2-C3: Disc bulge. [id number] facet arthropathy. Milduncovertebral arthropathy. Mild right neural foraminal stenosis. Mild spinal canal stenosis C3-C4: Posterior disc osteophyte complex abuts the ventral cord.Ligamentum flavum thickening. Moderate facet and uncovertebral arthropathy.Moderate bilateral neural foraminal stenosis.. Moderate spinal canal stenosis. C4-C5: Posterior disc osteophyte complex. Moderate to severe right and moderate left facet arthropathy. Moderate bilateral uncovertebral arthropathy. Severe left and moderate right neural foraminal stenosis. Severe spinal canal stenosis. No cord signal abnormality identified. C5-C6: Posterior disc osteophyte complex. Moderate bilateral facet and uncovertebral arthropathy. Moderate to severe right and moderate leftneural foraminal stenosis. Severe spinal canal stenosis. No cord signalabnormality identified. C6-C7: Disc bulge. Severe right and moderate left facet arthropathy. Moderate bilateral uncovertebral arthropathy. Moderate bilateral neural foraminal stenosis. No significant spinal canal stenosis withinlimitations of artifact. C7-T1: No significant disc bulge. Moderate bilateral facet and uncovertebral arthropathy. At least mild bilateral neural foraminalstenosis. No significant spinal canal stenosis. CERVICAL OTHER: No other significant finding. Thoracic Spine: THORACIC ALIGNMENT: Normal. THORACIC VERTEBRAE: Marrow signal is T1 heterogeneous but no definite T1 signal hypointense relative to skeletal muscle to indicate marrowreplacement. No gross MR evidence for recent fracture or ligamentous injury. THORACIC DISCS: Mild multilevel degenerative disc disease. THORACIC HARDWARE: None in the spine. THORACIC CORD: No gross cord signal abnormality within limitations of artifact THORACIC DISCS T1-T12: Level by level assessment is degraded by motion and other artifacts. There are areas of mild disc bulging. There is prominent dorsal epiduralfat throughout much of the thoracic spine. No obvious high-grade stenosis isseen within the limitations of motion and other artifacts, though the thecalsac is narrowed in the midthoracic spine due to dorsal epidural lipomatosis. No high-grade neural foraminal stenosis is seen. In the lower thoracicspine, there is mild neural foraminal stenosis at multiple levels THORACIC OTHER: No other significant finding. SOFT TISSUES: No soft tissue masses. OTHER: No other significant finding. IMPRESSION: Multilevel cervical degenerative disc and joint disease, as detailedlevel by level above. There is severe spinal canal stenosis at C4-C5 and C5-C6 and moderate spinal canal stenosis at C3-C4, similar to 12/13/2022. No grosscord signal abnormality within limitations of artifact. Multilevel thoracic degenerative disc and joint disease, as detailedlevel by level above. There is prominent dorsal epidural fat throughout much of the thoracic spine, which grossly mildly narrows the thecal sac . No obvious high-grade stenosis within limitations of motion and other artifacts. THIS IS AN ELECTRONICALLY VERIFIED FINAL REPORT 08/01/2024 4:57 PM - Electronically signed by Lawrence Clark M.D. MZ: INGRID Report ID: [id number] Reading Location: [id number] us Diomedes Haywood NEUROLOGICAL SURGEON IMG MRI PROCEDURES Final Re sult * MRI Cervical Spine WO Contrast (08/01/2024 3:13 PM CDT) Anatomical Region Laterality Modality Spine N/A Magnetic Resonan ce 08/01/2024 4:29 PM CDT Narrative 08/01/2024 4:57 PM CDT EXAM DESCRIPTION: MRI CERVICAL SPINE WO CONTRAST; MRI THORACIC SPINE WO CONTRAST COMPLETED DATE/TIME: 08/01/2024 3:13 pm; 08/01/2024 3:25 pm REASON FOR STUDY: To rule out cervical stenosis He was in usual state of health until since about 2 years he is having dizziness, ongoing vertigo patient has seen ENT physician about 6 months ago as well as neurosurgeon however he was told his ears were okay, may need neck surgery. Scan to rule out stenosi ; Weakness of both lower extremities Weakness of both lower extremities , patient was walking fine a few weeks ago , now he needs a walker, patient has fell because of walking problems. Patient squeezed the call button. He would not let me repeat the axials due to pain. TECHNIQUE: Sagittal and Axial imaging includes T1, T2, STIR and gradient echo sequences. COMPARISON: Cervical spine MRI from 12/13/2022 FINDINGS: Cervical Spine: CERVICAL ALIGNMENT: Unchanged CERVICAL VERTEBRAE: Vertebral body heights are unchanged. No evidence of recent fracture marrow replacing lesion. CERVICAL DISCS: Unchanged overall mild multilevel disc height loss CERVICAL HARDWARE: None in the spine. No gross cord signal abnormality is seen CORD: Normal in size and signal intensity. BASE OF BRAIN: No significant finding. Level by level assessment is degraded by artifact on the axial sequence. C1-C2: No significant spinal stenosis. C2-C3: Disc bulge. [id number] facet arthropathy. Mild uncovertebral arthropathy. Mild right neural foraminal stenosis. Mild spinal canal stenosis C3-C4: Posterior disc osteophyte complex abuts the ventral cord. Ligamentum flavum thickening. Moderate facet and uncovertebral arthropathy. Moderate bilateral neural foraminal stenosis.. Moderate spinal canal stenosis. C4-C5: Posterior disc osteophyte complex. Moderate to severe right and moderate left facet arthropathy. Moderate bilateral uncovertebral arthropathy. Severe left and moderate right neural foraminal stenosis. Severe spinal canal stenosis. No cord signal abnormality identified. C5-C6: Posterior disc osteophyte complex. Moderate bilateral facet and uncovertebral arthropathy. Moderate to severe right and moderate left neural foraminal stenosis. Severe spinal canal stenosis. No cord signal abnormality identified. C6-C7: Disc bulge. Severe right and moderate left facet arthropathy. Moderate bilateral uncovertebral arthropathy. Moderate bilateral neural foraminal stenosis. No significant spinal canal stenosis within limitations of artifact. C7-T1: No significant disc bulge. Moderate bilateral facet and uncovertebral arthropathy. At least mild bilateral neural foraminal stenosis. No significant spinal canal stenosis. CERVICAL OTHER: No other significant finding. Thoracic Spine: THORACIC ALIGNMENT: Normal. THORACIC VERTEBRAE: Marrow signal is T1 heterogeneous but no definite T1 signal hypointense relative to skeletal muscle to indicate marrow replacement. No gross MR evidence for recent fracture or ligamentous injury. THORACIC DISCS: Mild multilevel degenerative disc disease. THORACIC HARDWARE: None in the spine. THORACIC CORD: No gross cord signal abnormality within limitations of artifact THORACIC DISCS T1-T12: Level by level assessment is degraded by motion and other artifacts. There are areas of mild disc bulging. There is prominent dorsal epidural fat throughout much of the thoracic spine. No obvious high-grade stenosis is seen within the limitations of motion and other artifacts, though the thecal sac is narrowed in the midthoracic spine due to dorsal epidural lipomatosis. No high-grade neural foraminal stenosis is seen. In the lower thoracic spine, there is mild neural foraminal stenosis at multiple levels THORACIC OTHER: No other significant finding. SOFT TISSUES: No soft tissue masses. OTHER: No other significant finding. IMPRESSION: Multilevel cervical degenerative disc and joint disease, as detailed level by level above. There is severe spinal canal stenosis at C4-C5 and C5-C6 and moderate spinal canal stenosis at C3-C4, similar to 12/13/2022. No gross cord signal abnormality within limitations of artifact. Multilevel thoracic degenerative disc and joint disease, as detailed level by level above. There is prominent dorsal epidural fat throughout much of the thoracic spine, which grossly mildly narrows the thecal sac . No obvious high-grade stenosis within limitations of motion and other artifacts. THIS IS AN ELECTRONICALLY VERIFIED FINAL REPORT 08/01/2024 4:57 PM - Electronically signed by Lawrence Clark M.D. MZ: INGRID Report ID: [id number] Reading Location: [place] [address] Procedure Note Lawrence Clark MD - 08/01/2024 EXAM DESCRIPTION: MRI CERVICAL SPINE WO CONTRAST; MRI THORACIC SPINE WO CONTRAST COMPLETED DATE/TIME: 08/01/2024 3:13 pm; 08/01/2024 3:25 pm REASON FOR STUDY: To rule out cervical stenosis He was in usual state of health until since about 2 years he is having dizziness, ongoing vertigo patient has seen ENT physician about 6 monthsago as well as neurosurgeon however he was told his ears were okay, may needneck surgery. Scan to rule out stenosi ; Weakness of both lower extremities Weakness of both lower extremities , patient was walking fine a few weeksago , now he needs a walker, patient has fell because of walking problems. Patient squeezed the call button. He would not let me repeat the axialsdue to pain. TECHNIQUE: Sagittal and Axial imaging includes T1, T2, STIR and gradientecho sequences. COMPARISON: Cervical spine MRI from 12/13/2022 FINDINGS: Cervical Spine: CERVICAL ALIGNMENT: Unchanged CERVICAL VERTEBRAE: Vertebral body heights are unchanged. No evidenceof recent fracture marrow replacing lesion. CERVICAL DISCS: Unchanged overall mild multilevel disc height loss CERVICAL HARDWARE: None in the spine. No gross cord signal abnormality is seen CORD: Normal in size and signal intensity. BASE OF BRAIN: No significant finding. Level by level assessment is degraded by artifact on the axial sequence. C1-C2: No significant spinal stenosis. C2-C3: Disc bulge. [id number] facet arthropathy. Milduncovertebral arthropathy. Mild right neural foraminal stenosis. Mild spinal canal stenosis C3-C4: Posterior disc osteophyte complex abuts the ventral cord.Ligamentum flavum thickening. Moderate facet and uncovertebral arthropathy.Moderate bilateral neural foraminal stenosis.. Moderate spinal canal stenosis. C4-C5: Posterior disc osteophyte complex. Moderate to severe right and moderate left facet arthropathy. Moderate bilateral uncovertebral arthropathy. Severe left and moderate right neural foraminal stenosis. Severe spinal canal stenosis. No cord signal abnormality identified. C5-C6: Posterior disc osteophyte complex. Moderate bilateral facet and uncovertebral arthropathy. Moderate to severe right and moderate leftneural foraminal stenosis. Severe spinal canal stenosis. No cord signalabnormality identified. C6-C7: Disc bulge. Severe right and moderate left facet arthropathy. Moderate bilateral uncovertebral arthropathy. Moderate bilateral neural foraminal stenosis. No significant spinal canal stenosis withinlimitations of artifact. C7-T1: No significant disc bulge. Moderate bilateral facet and uncovertebral arthropathy. At least mild bilateral neural foraminalstenosis. No significant spinal canal stenosis. CERVICAL OTHER: No other significant finding. Thoracic Spine: THORACIC ALIGNMENT: Normal. THORACIC VERTEBRAE: Marrow signal is T1 heterogeneous but no definite T1 signal hypointense relative to skeletal muscle to indicate marrowreplacement. No gross MR evidence for recent fracture or ligamentous injury. THORACIC DISCS: Mild multilevel degenerative disc disease. THORACIC HARDWARE: None in the spine. THORACIC CORD: No gross cord signal abnormality within limitations of artifact THORACIC DISCS T1-T12: Level by level assessment is degraded by motion and other artifacts. There are areas of mild disc bulging. There is prominent dorsal epiduralfat throughout much of the thoracic spine. No obvious high-grade stenosis isseen within the limitations of motion and other artifacts, though the thecalsac is narrowed in the midthoracic spine due to dorsal epidural lipomatosis. No high-grade neural foraminal stenosis is seen. In the lower thoracicspine, there is mild neural foraminal stenosis at multiple levels THORACIC OTHER: No other significant finding. SOFT TISSUES: No soft tissue masses. OTHER: No other significant finding. IMPRESSION: Multilevel cervical degenerative disc and joint disease, as detailedlevel by level above. There is severe spinal canal stenosis at C4-C5 and C5-C6 and moderate spinal canal stenosis at C3-C4, similar to 12/13/2022. No grosscord signal abnormality within limitations of artifact. Multilevel thoracic degenerative disc and joint disease, as detailedlevel by level above. There is prominent dorsal epidural fat throughout much of the thoracic spine, which grossly mildly narrows the thecal sac . No obvious high-grade stenosis within limitations of motion and other artifacts. THIS IS AN ELECTRONICALLY VERIFIED FINAL REPORT 08/01/2024 4:57 PM - Electronically signed by Lawrence Clark M.D. MZ: INGRID Report ID: [id number] Reading Location: [id number] us Diomedes Haywood NEUROLOGICAL SURGEON IMG MRI PROCEDURES Final Re sult * MRI Brain WO Contrast (08/01/2024 1:52 PM CDT) Anatomical Region Laterality Modality Head and Neck N/A Magnetic Resonan ce 08/01/2024 1:57 PM CDT Narrative 08/01/2024 2:06 PM CDT EXAM DESCRIPTION: MRI BRAIN WO CONTRAST REASON FOR STUDY: Ataxia, nontraumatic, stroke excluded, Gait instability and falls Ataxia, Gait instability and falls TECHNIQUE: Multiplanar imaging includes non-contrasted T1, T2, FLAIR, and diffusion with ADC map sequences. Additional sequence(s) sensitive to blood products. Images stored on PACS. COMPARISON: 02/03/2023.. 07/30/2024. FINDINGS: CEREBRUM: No acute hemorrhage, edema, or mass effect. Focus of chronic microhemorrhage in the left thalamus WHITE MATTER: There is mild periventricular, subcortical and pontine T2/FLAIR hyperintense white matter disease, nonspecific, though likely secondary to chronic microvascular ischemia. POSTERIOR FOSSA: Brainstem and cerebellum appear unremarkable. DIFFUSION IMAGING: No recent infarction. EXTRAAXIAL SPACES: No hemorrhage. No mass. BRAIN VOLUME: Mild cerebral volume loss, generalized, with appropriate size of the ventricles for the degree of volume loss. PITUITARY: Unremarkable. VASCULATURE: No flow disturbance identified. ORBITS: Right lens replacement. No gross acute finding seen. PARANASAL SINUSES AND MASTOIDS: There is a right mastoid effusion. No significant paranasal sinus mucosal thickening OTHER: No other significant finding. IMPRESSION: No acute intracranial findings. Mild chronic microvascular ischemic change. Right mastoid effusion. THIS IS AN ELECTRONICALLY VERIFIED FINAL REPORT 08/01/2024 2:06 PM - Electronically signed by Lawrence Clark M.D. MZ: INGRID Report ID: [id number] Reading Location: [id number] Procedure Note Lawrence Clark MD - 08/01/2024 EXAM DESCRIPTION: MRI BRAIN WO CONTRAST REASON FOR STUDY: Ataxia, nontraumatic, stroke excluded, Gaitinstability and falls Ataxia, Gait instability and falls TECHNIQUE: Multiplanar imaging includes non-contrasted T1, T2, FLAIR, and diffusion with ADC map sequences. Additional sequence(s) sensitive [employer]. Images stored on PACS. COMPARISON: 02/03/2023.. 07/30/2024. FINDINGS: CEREBRUM: No acute hemorrhage, edema, or mass effect. Focus ofchronic microhemorrhage in the left thalamus WHITE MATTER: There is mild periventricular, subcortical and pontine T2/FLAIR hyperintense white matter disease, nonspecific, though likely secondary to chronic microvascular ischemia. POSTERIOR FOSSA: Brainstem and cerebellum appear unremarkable. DIFFUSION IMAGING: No recent infarction. EXTRAAXIAL SPACES: No hemorrhage. No mass. BRAIN VOLUME: Mild cerebral volume loss, generalized, with appropriatesize of the ventricles for the degree of volume loss. PITUITARY: Unremarkable. VASCULATURE: No flow disturbance identified. ORBITS: Right lens replacement. No gross acute finding seen. PARANASAL SINUSES AND MASTOIDS: There is a right mastoid effusion. No significant paranasal sinus mucosal thickening OTHER: No other significant finding. IMPRESSION: No acute intracranial findings. Mild chronic microvascular ischemic change. Right mastoid effusion. THIS IS AN ELECTRONICALLY VERIFIED FINAL REPORT 08/01/2024 2:06 PM - Electronically signed by Lawrence Clark M.D. MZ: INGRID Report ID: [id number] Reading Location: [id number] us Mike Harris MD IMG MRI PROCEDURES Final Result * POCT glucose (08/01/2024 11:37 AM CDT) Glucose, POC 161 70 - 199 mg/dL Blood 08/01/2024 11:3 7 AM CDT 08/01/2024 11:37 AM CDT us Corey Russo MD LAB POCT ORDERABLES - DEVICE Fin al Result [facility] ([place]) [address] [place] [address] [place] [address] * POCT glucose (08/01/2024 7:44 AM CDT) Glucose, POC 115 70 - 199 mg/dL Blood 08/01/2024 7:44 AM CDT 08/01/2024 7:44 AM CDT us Corey Russo MD LAB POCT ORDERABLES - DEVICE Fin al Result [facility] ([place]) [address] [place] [address] [place] [address] * (ABNORMAL) eGFR (08/01/2024 5:53 AM CDT) eGFR 54(L) >=60 mL/min/1. 73 m2 Comment: Interpretive Data [...] interpretive data was last reviewed 2021. Blood 08/01/2024 5:53 AM CDT 08/01/2024 5:58 AM CDT us Krystal Araujo MD LAB BLOOD ORDERABLES Fi nal Result [facility] ([place]) 1 [facility] Department [place] [address] * (ABNORMAL) Differential, auto (08/01/2024 5:53 AM CDT) Neutrophil abs 7.14(H) 1.50 - 6.50 K/cumm Imm gran abs 0.20(H) 0.00 - 0.10 K/cumm [facility] ([place]) Lymphocyte abs 1.16 0.80 - 3.30 K/cumm [facility] ([place]) Monocyte abs 0.65 0.20 - 0.80 K/cumm [facility] ([place]) Eosinophil abs 0.08 0.00 - 0.50 K/cumm [facility] ([place]) Basophil abs 0.04 0.00 - 0.10 K/cumm [facility] ([place]) Neutrophil pct 77.0 % [facility] ([place]) Comment: Interpretive Data Percent cell count reference ranges are not reported, since discordance with absolute values may lead to misinterpretation of CBC data. Current Interpretive Data was last revised on 2017. Imm gran pct 2.2 % [facility] ([place]) Comment: Interpretive [...] was last revised on 2017. Monocyte pct 7.0 % [facility] ([place]) Comment: Interpretive Data Percent cell count reference ranges are not reported, since discordance with absolute values may lead to misinterpretation of CBC data. Current Interpretive Data was last revised on 2017. Eosinophil pct 0.9 % [facility] ([place]) Comment: [...] Data was last revised on 2017. Blood 08/01/2024 5:53 AM CDT 08/01/2024 5:58 AM CDT us Krystal Araujo MD LAB BLOOD ORDERABLES [facility] Result [facility] ([place]) 1 [facility] Department of Laboratories [place] [id number] * CBC with auto differential (08/01/2024 5:53 AM CDT) WBC 9.27 3.80 - 9.90 K/cumm Hgb 15.0 13.0 - 17.5 g/dL [facility] ([place]) Hct 46.0 38.9 - 50.3 % [facility] ([place]) Plt 184 150 - 400 K/cumm [facility] ([place]) MPV 9.8 9.1 - 12.3 fL [facility] ([place]) RBC 5.07 4.30 - 5.80 M/cumm [facility] ([place]) MCV 90.7 81.3 - 96.4 fL [facility] ([place]) MCH 29.6 27.1 - 33.3 pg [facility] ([place]) MCHC 32.6 32.3 - 35.7 g/dL [facility] ([place]) RDW CV 13.9 11.1 - 14.9 % [facility] ([place]) RDW SD 45.9 35.7 - 48.1 fL [facility] ([place]) NRBC abs 0.00 0.00 - 0.01 K/cumm [facility] ([place]) Blood 08/01/2024 5:53 AM CDT 08/01/2024 5:58 AM CDT Krystal Araujo MD LAB BLOOD ORDERABLES Fi nal Result [facility] ([place]) 1 [facility] [place] [place] [address] * Magnesium (08/01/2024 5:53 AM CDT) Pathologist [facility] Magnesium 2.0 1.4 - 2.5 mg/dL Blood 08/01/2024 5:53 AM CDT 08/01/2024 5:58 AM CDT Krystal Araujo MD LAB BLOOD ORDERABLES Fi nal Result Performing Organization Address City/[facility]/ZIP Co de Phone Number [facility] ([place]) 1 [facility] [place] [place] [address] * (ABNORMAL) Comprehensive metabolic panel (08/01/2024 5:53 AM CDT) Sodium 143 135 - 145 mmol/L Potassium, pl 3.5 3.3 - 4.9 mmol/L [facility] ([place]) Chloride 105 97 - 110 mmol/L [facility] ([place]) CO2 24 22 - 32 mmol/L [facility] ([place]) Anion gap 14 2 - 15 mmol/L [facility] ([place]) BUN 24 6 - 25 mg/dL [facility] ([place]) Creatinine 1.39(H) 0.80 - 1.30 mg/dL [facility] ([place]) Glucose 130 70 - 199 mg/dL [facility] ([place]) Comment: Interpretive Data Fasting glucose >/= 126 mg/dl is diagnostic for diabetes. Fasting is defined as no caloric intake [...] interpretive data was last revised 2022. Calcium 9.4 8.5 - 10.3 mg/dL [facility] ([place]) Bilirubin, total 0.3 0.1 - 1.2 mg/dL [facility] ([place]) Protein, pl 6.2(L) 6.5 - 8.5 g/dL [facility] ([place]) Albumin 3.4(L) 3.5 - 5.0 g/dL [facility] ([place]) Alk phos 95 40 - 130 Units/L [facility] ([place]) ALT 14 7 - 55 Units/L [facility] ([place]) AST 14 10 - 50 Units/L [facility] ([place]) Blood 08/01/2024 5:53 AM CDT 08/01/2024 5:58 AM CDT us Krystal Araujo MD LAB BLOOD ORDERABLES Fi nal Result Performing Organization Address [facility]/ZIP Co de Phone Number [facility] ([place]) 1 [facility] [employer] [place] [place] [address] * POCT glucose (08/01/2024 1:32 AM CDT) [facility] Signature Glucose, POC 137 70 - 199 mg/dL Blood 08/01/2024 1:32 AM CDT 08/01/2024 1:32 AM CDT Corey Russo MD LAB POCT ORDERABLES - DEVICE Fin al Result Performing Organization Address City/[facility]/ZIP Co de Phone Number [facility] ([place]) 1 [facility] [place] [place] [address] * POCT glucose (07/31/2024 8:49 PM CDT) Glucose, POC 182 70 - 199 mg/dL Blood 07/31/2024 8:49 PM CDT 07/31/2024 8:49 PM CDT us Corey Russo MD LAB POCT ORDERABLES - DEVICE Fin al Result Performing Organization Address City/[facility]/ZIP Co de Phone Number [facility] ([place]) 1 [facility] [place] [place] [address] * POCT glucose (07/31/2024 4:16 PM CDT) Glucose, POC 130 70 - 199 mg/dL Blood 07/31/2024 4:16 PM CDT 07/31/2024 4:16 PM CDT Corey Russo MD LAB POCT ORDERABLES - DEVICE Fin al Result Performing Organization Address [facility] Co de Phone Number [facility] ([place]) 1 [facility] [place] [place] [address] * POCT glucose (07/31/2024 11:47 AM CDT) Pathologist [facility] Glucose, POC 172 70 - 199 mg/dL Blood 07/31/2024 11:4 7 AM CDT 07/31/2024 11:47 AM CDT us Corey Russo MD LAB POCT ORDERABLES - DEVICE Fin al Result Performing Organization Address City/[facility] Co de Phone Number [facility] ([place]) 1 [facility] [place] [place] [address] * (ABNORMAL) eGFR (07/31/2024 6:59 AM CDT) Pathologist [facility] eGFR 53(L) >=60 mL/min/1. 73 m2 Comment: Interpretive Data [...] interpretive data was last reviewed 2021. Blood 07/31/2024 6:59 AM CDT 07/31/2024 7:38 AM CDT us Krystal Araujo MD LAB BLOOD ORDERABLES [facility] Result [facility] ([place]) 1 [facility] Department [place] [address] * (ABNORMAL) Differential, auto (07/31/2024 6:59 AM CDT) Neutrophil abs 7.6(H) 1.5 - 6.5 K/cumm Imm gran abs 0.2(H) 0.0 - 0.1 K/cumm [facility] ([place]) Lymphocyte abs 1.2 0.8 - 3.3 K/cumm [facility] ([place]) Monocyte abs 0.7 0.2 - 0.8 K/cumm [facility] ([place]) Eosinophil abs 0.1 0.0 - 0.5 K/cumm [facility] ([place]) Basophil abs 0.1 0.0 - 0.1 K/cumm [facility] ([place]) Neutrophil pct 77.5 % [facility] ([place]) Comment: Interpretive Data Percent cell count reference ranges are not reported, since discordance with absolute values may lead to misinterpretation of CBC data. Current Interpretive Data was last revised on 2017. Imm gran pct 1.6 % [facility] ([place]) Comment: Interpretive Data Percent cell count reference ranges are not reported, since discordance with absolute values may lead to misinterpretation of CBC data. Current Interpretive Data was last revised on 2017. Lymphocyte pct 12.1 % [facility] ([place]) Comment: Interpretive Data Percent cell count reference ranges are not reported, since discordance with absolute values may lead to misinterpretation of CBC data. Current Interpretive Data was last revised on 2017. Monocyte pct 7.4 % [facility] ([place]) Comment: Interpretive Data Percent cell count reference ranges are not reported, since discordance with absolute values may lead to misinterpretation of CBC data. Current Interpretive Data was last revised on 2017. Eosinophil pct 0.9 % [facility] ([place]) Comment: [...] Data was last revised on 2017. Blood 07/31/2024 6:59 AM CDT 07/31/2024 7:38 AM CDT us Krystal Araujo MD LAB BLOOD ORDERABLES [facility] Result [facility] ([place]) 1 [facility] Department [place] [address] * CBC with auto differential (07/31/2024 6:59 AM CDT) WBC 9.9 3.8 - 9.9 K/cumm Hgb 15.1 13.0 - 17.5 g/dL [facility] ([place]) Hct 46.2 38.9 - 50.3 % [facility] ([place]) Plt 181 150 - 400 K/cumm [facility] ([place]) MPV 10.1 9.1 - 12.3 fL [facility] ([place]) RBC 5.05 4.30 - 5.80 M/cumm [facility] ([place]) MCV 91.5 81.3 - 96.4 fL [facility] ([place]) MCH 29.9 27.1 - 33.3 pg [facility] ([place]) MCHC 32.7 32.3 - 35.7 g/dL [facility] ([place]) RDW CV 13.8 11.1 - 14.9 % [facility] ([place]) RDW SD 46.7 35.7 - 48.1 fL [facility] ([place]) NRBC abs 0.00 0.00 - 0.01 K/cumm [facility] ([place]) Blood 07/31/2024 6:59 AM CDT 07/31/2024 7:38 AM CDT Krystal Araujo MD LAB BLOOD ORDERABLES Fi nal Result Performing Organization Address City/[facility]/ZIP Co de Phone Number [facility] ([place]) 1 [facility] [place] [place] [address] * Magnesium (07/31/2024 6:59 AM CDT) Pathologist [facility] Magnesium 2.1 1.4 - 2.5 mg/dL Blood 07/31/2024 6:59 AM CDT 07/31/2024 7:38 AM CDT Krystal Araujo MD LAB BLOOD ORDERABLES Fi nal Result Performing Organization Address City/[facility]/ZIP Co de Phone Number [facility] ([place]) 1 [facility] [place] [employer] [place] [address] * (ABNORMAL) Comprehensive metabolic panel (07/31/2024 6:59 AM CDT) Sodium 144 135 - 145 mmol/L Potassium, pl 3.3 3.3 - 4.9 mmol/L [facility] ([place]) Chloride 106 97 - 110 mmol/L [facility] ([place]) CO2 25 22 - 32 mmol/L [facility] ([place]) Anion gap 13 2 - 15 mmol/L [facility] ([place]) BUN 24 6 - 25 mg/dL [facility] ([place]) Creatinine 1.40(H) 0.80 - 1.30 mg/dL [facility] ([place]) Glucose 138 70 - 199 mg/dL [facility] ([place]) Comment: Interpretive Data Fasting glucose >/= 126 mg/dl is diagnostic for diabetes. Fasting is defined as no caloric intake [...] mg/dL [facility] ([place]) Protein, pl 6.3(L) 6.5 - 8.5 g/dL [facility] ([place]) Albumin 3.7 3.5 - 5.0 g/dL [facility] ([place]) Alk phos 93 40 - 130 Units/L [facility] ([place]) ALT 14 7 - 55 Units/L [facility] ([place]) AST 14 10 - 50 Units/L [facility] ([place]) Blood 07/31/2024 6:59 AM CDT 07/31/2024 7:38 AM CDT us Krystal Araujo MD LAB BLOOD ORDERABLES Fi nal Result [facility] 1 [facility] Department [place] [address] * Thyroid Function [place] (07/31/2024 6:57 AM CDT) TSH 3.00 0.30 - 4.20 mcIUnit/mL Blood 07/31/2024 6:57 AM CDT 07/31/2024 9:01 AM CDT us Corey Russo MD LAB BLOOD ORDERABLES Final Resul t [facility] ([place]) 1 [facility] [place] [address] * POCT glucose (07/31/2024 3:46 AM CDT) Glucose, POC 155 70 - 199 mg/dL Blood 07/31/2024 3:46 AM CDT 07/31/2024 3:46 AM CDT us Krystal Araujo MD LAB POCT ORDERABLES - D EVICE Final Result Performing Organization Address [facility]/ZIP Co de Phone Number [facility]IETA [facility] ([place]) 1 [facility] [place] [address] * POCT glucose (07/31/2024 12:06 AM CDT) Glucose, POC 154 70 - 199 mg/dL Blood 07/31/2024 12:0 6 AM CDT 07/31/2024 12:06 AM CDT us Krystal Araujo MD LAB POCT ORDERABLES - D EVICE Final Result Performing Organization Address City/[facility]/ZIP Co de Phone Number J[facility]IETA [facility] ([place]) 1 [facility] [place] [place] [address] * POCT glucose (07/30/2024 9:50 PM CDT) Glucose, POC 180 70 - 199 mg/dL Blood 07/30/2024 9:50 PM CDT 07/30/2024 9:50 PM CDT us Krystal Araujo MD LAB POCT ORDERABLES - D EVICE Final Result [facility] ([place]) 1 [facility] Department [place] [address] * (ABNORMAL) Troponin T high-sensitivity 6-hour (07/30/2024 7:46 PM CDT) [facility] Trop T hs 33(H) <=22 ng/L Comment: Interpretive Data For further hscTnT resources including the diagnostic algorithm and an aid in interpretation, copy and paste this link: https://nrl.testcatalog.org/show/hsTrop Current Interpretive Data last revised 2020. Trop T hs delta -2 ng/L [facility] ([place]) Trop T hs interp Insignificant [facility] ([place]) Blood 07/30/2024 7:46 PM CDT 07/30/2024 7:48 PM CDT Leelee RIZVI LAB BLOOD ORDERABLES Holly l Result [facility] ([place]) 1 [facility] Department [place] [address] * Sepsis Lactate w/ Reflex (07/30/2024 7:46 PM CDT) [facility] Sepsis Lactate 1.6 0.7 - 2.0 mmol/L Blood 07/30/2024 7:46 PM CDT 07/30/2024 7:48 PM CDT Funmilayo RIZVI LAB BLOOD ORDERABLES Final Resu lt [facility] ([place]) 1 [place] [address] * POCT glucose (07/30/2024 6:59 PM CDT) [facility] Glucose, POC 128 70 - 199 mg/dL Blood 07/30/2024 6:59 PM CDT 07/30/2024 6:59 PM CDT Notinfile Unknown LAB POCT ORDERABLES - DEVICE F inal Result [facility] ([place]) 1 [facility] [place] [place] [address] * (ABNORMAL) Troponin T high-sensitivity 4-hour (07/30/2024 5:07 PM CDT) Trop T hs 33(H) <=22 ng/L Comment: Interpretive Data For further hscTnT resources including the diagnostic algorithm and an aid in interpretation, copy and paste this link: https://nrl.RealtimeBoard.org/show/hsTrop Current Interpretive Data last revised 2020. Trop T hs delta -2 ng/L [facility] ([place]) Trop T hs interp Insignificant [facility] ([place]) Blood 07/30/2024 5:07 PM CDT 07/30/2024 5:11 PM CDT Leelee RIZVI LAB BLOOD ORDERABLES Holly l Result [facility] ([place]) 1 [facility] [place] [employer] [place] [address] * (ABNORMAL) Troponin T high-sensitivity 2-hour (07/30/2024 4:31 PM CDT) Trop T hs 36(H) <=22 ng/L Comment: Interpretive Data For further hscTnT resources including the diagnostic algorithm and an aid in interpretation, copy and paste this link: https://nrl.RealtimeBoard.org/show/hsTrop Current Interpretive Data last revised 2020. Trop T hs delta 1 ng/L [facility] ([place]) Trop T hs interp Insignificant [facility] ([place]) Blood 07/30/2024 4:31 PM CDT 07/30/2024 4:35 PM CDT Leelee RIZVI LAB BLOOD ORDERABLES Holly l Result [facility] ([place]) 1 [facility] Department [place] [address] * (ABNORMAL) Sepsis Lactate w/ Reflex (07/30/2024 4:31 PM CDT) Sepsis Lactate 2.6(H) 0.7 - 2.0 mmol/L Blood 07/30/2024 4:31 PM CDT 07/30/2024 4:35 PM CDT us Funmilayo RIZVI LAB BLOOD ORDERABLES Final Resu lt [facility] ([place]) 1 [facility] [place] [place] [address] * CT Lumbar Spine WO Contrast (07/30/2024 4:19 PM CDT) Anatomical Region Laterality Modality Spine N/A Computed Tomogra phy 07/30/2024 4:54 PM CDT Narrative 07/30/2024 5:01 PM CDT EXAM DESCRIPTION: CT LUMBAR SPINE WO CONTRAST REASON FOR STUDY: Back trauma, no prior imaging (Age >= 16y) Pt ambulatory to triage with a walker with c/o dizziness and weakness. Pt states he was diagnosed with pneumonia and has been taking his medication. Frequent falls, c/o back pain TECHNIQUE: Axial images acquired through the lumbar spine without intravenous contrast. Reconstructed coronal and sagittal MPR images reviewed. All images stored on PACS. Automated exposure control was used as a dose optimization technique for this examination. COMPARISON: 12/12/2022 FINDINGS: SEGMENTATION: No transitional anatomy. The lowest well-developed disc space is labeled L5-S1. SURGICAL HARDWARE: None in the spine. ALIGNMENT: Normal. VERTEBRAE: Osteoporosis. No acute displaced fracture. Flowing anterior osteophytes with relative sparing of the intervertebral discs. Multilevel ankylosis of the posterior elements. INTERVERTEBRAL DISCS: Mild intervertebral disc height loss. INDIVIDUAL LEVELS: No acute displace fracture or traumatic malalignment of the lumbar spine. T12/L1: No significant spinal canal or neuroforaminal narrowing. L1/L2: No significant spinal canal or neuroforaminal narrowing. L2/L3: No significant spinal canal or neuroforaminal narrowing. L3/L4: Concentric disc bulge and facet arthrosis results in hihz-ij-mvwgcfrc bilateral neural foraminal narrowing. No significant spinal canal narrowing. L4/L5: Concentric disc bulge, ligamentum flavum thickening, and facet arthrosis results in moderate left and mild right neural foraminal narrowing. Mild spinal canal narrowing. L5/S1: Concentric disc bulge, ligamentum flavum thickening, and facet arthrosis results in severe left and lishnqiv-ad-crgfih right neural foraminal narrowing. Mild spinal canal narrowing. SOFT TISSUES: No significant or acute finding in adjacent soft tissues. OTHER: Atherosclerotic changes of the visualized abdominal aorta. No abdominal aortic aneurysm. No definite acute abnormality within the visualized abdomen or pelvis. IMPRESSION: No acute displaced fracture or traumatic malalignment of the lumbar spine. Multilevel degenerative changes of the lumbar spine most pronounced at L5-S1 where there is severe left and albxghss-df-xkjkgi right neural foraminal narrowing. Incidental and chronic findings including osteoporosis and diffuse idiopathic skeletal hyperostosis. THIS IS AN ELECTRONICALLY VERIFIED FINAL REPORT 07/30/2024 5:01 PM - Electronically signed by Benjie Sargent M.D. NS: NS Report ID: [id number] Reading Location: [id number] Procedure Note Benjie Sargent MD - 07/30/2024 EXAM DESCRIPTION: CT LUMBAR SPINE WO CONTRAST REASON FOR STUDY: Back trauma, no prior imaging (Age >= 16y) Pt ambulatory to triage with a walker with c/o dizziness and weakness. Pt states he was diagnosed with pneumonia and has been taking his medication. Frequent falls, c/o back pain TECHNIQUE: Axial images acquired through the lumbar spine withoutintravenous contrast. Reconstructed coronal and sagittal MPR images reviewed. Allimages stored on PACS. Automated exposure control was used as a dose optimization technique forthis examination. COMPARISON: 12/12/2022 FINDINGS: SEGMENTATION: No transitional anatomy. The lowest well-developed discspace is labeled L5-S1. SURGICAL HARDWARE: None in the spine. ALIGNMENT: Normal. VERTEBRAE: Osteoporosis. No acute displaced fracture. Flowing anterior osteophytes with relative sparing of the intervertebral discs. Multilevel ankylosis of the posterior elements. INTERVERTEBRAL DISCS: Mild intervertebral disc height loss. INDIVIDUAL LEVELS: No acute displace fracture or traumatic malalignmentof the lumbar spine. T12/L1: No significant spinal canal or neuroforaminal narrowing. L1/L2: No significant spinal canal or neuroforaminal narrowing. L2/L3: No significant spinal canal or neuroforaminal narrowing. L3/L4: Concentric disc bulge and facet arthrosis results ugxfok-sb-phvmyspb bilateral neural foraminal narrowing. No significant spinal canalnarrowing. L4/L5: Concentric disc bulge, ligamentum flavum thickening, and facet arthrosis results in moderate left and mild right neural foraminalnarrowing. Mild spinal canal narrowing. L5/S1: Concentric disc bulge, ligamentum flavum thickening, and facet arthrosis results in severe left and ftknbznh-tk-brhbns right neuralforaminal narrowing. Mild spinal canal narrowing. SOFT TISSUES: No significant or acute finding in adjacent soft tissues. OTHER: Atherosclerotic changes of the visualized abdominal aorta. No abdominal aortic aneurysm. No definite acute abnormality within the visualized abdomen or pelvis. IMPRESSION: No acute displaced fracture or traumatic malalignment of the lumbarspine. Multilevel degenerative changes of the lumbar spine most pronounced atL5-S1 where there is severe left and lixpwklf-ib-kfaynr right neural foraminal narrowing. Incidental and chronic findings including osteoporosis and diffuseidiopathic skeletal hyperostosis. THIS IS AN ELECTRONICALLY VERIFIED FINAL REPORT 07/30/2024 5:01 PM - Electronically signed by Benjie Sargent M.D. NS: NS Report ID: [id number] Reading Location: [id number] us Leelee RIZVI IMG CT PROCEDURES Final R esult * CT Head WO Contrast (07/30/2024 4:19 PM CDT) Anatomical Region Laterality Modality Head and Neck N/A Computed Tomogra phy 07/30/2024 5:01 PM CDT Narrative 07/30/2024 5:05 PM CDT EXAM DESCRIPTION: CT HEAD WO CONTRAST REASON FOR STUDY: dizziness Pt ambulatory to triage with a walker with c/o dizziness and weakness. Pt states he was diagnosed with pneumonia and has been taking his medication. Frequent falls, c/o back pain TECHNIQUE: Axial images acquired through the brain without intravenous contrast. Sagittal and coronal images reconstructed. Images stored on PACS. Automated exposure control was used as a dose optimization technique for this examination. COMPARISON: 12/28/2023, 07/27/2023, 02/03/2023 FINDINGS: Beam hardening artifact from the skull base obscures evaluation of the brainstem. Images obscured from streak/beam hardening artifact from dental amalgam. Findings made within these confines. SURGICAL/SUPPORT DEVICES: None. BRAIN PARENCHYMA: No acute large vascular territory infarction. No acute intraparenchymal hemorrhage. No mass or significant mass effect. Patchy periventricular hypodensities which are nonspecific but can be seen with mild chronic microvascular ischemic changes. Generalized parenchymal volume loss. EXTRA-AXIAL SPACES: No hyperdense fluid collections. VENTRICLES: No acute hydrocephalus. BONES/SOFT TISSUES: No significant soft tissue injury. No acute displaced calvarial fracture. PARANASAL SINUSES: Predominately clear. ORBITS: Right lens replacement. MASTOIDS/MIDDLE EAR: Predominately clear. OTHER: Calcified atherosclerotic changes of the intracranial vasculature. IMPRESSION: No acute intracranial abnormality. Chronic changes as above. THIS IS AN ELECTRONICALLY VERIFIED FINAL REPORT 07/30/2024 5:05 PM - Electronically signed by Benjie Sargent M.D. NS: NS Report ID: [id number] Reading Location: [id number] Procedure Note Benjie Sargent MD - 07/30/2024 EXAM DESCRIPTION: CT HEAD WO CONTRAST REASON FOR STUDY: dizziness Pt ambulatory to triage with a walker with c/o dizziness and weakness. Pt states he was diagnosed with pneumonia and has been taking his medication. Frequent falls, c/o back pain TECHNIQUE: Axial images acquired through the brain without intravenous contrast. Sagittal and coronal images reconstructed. Images stored onPACS. Automated exposure control was used as a dose optimization technique forthis examination. COMPARISON: 12/28/2023, 07/27/2023, 02/03/2023 FINDINGS: Beam hardening artifact from the skull base obscures evaluation of the brainstem. Images obscured from streak/beam hardening artifact fromdental amalgam. Findings made within these confines. SURGICAL/SUPPORT DEVICES: None. BRAIN PARENCHYMA: No acute large vascular territory infarction. Noacute intraparenchymal hemorrhage. No mass or significant mass effect.Patchy periventricular hypodensities which are nonspecific but can be seen withmild chronic microvascular ischemic changes. Generalized parenchymal volumeloss. EXTRA-AXIAL SPACES: No hyperdense fluid collections. VENTRICLES: No acute hydrocephalus. BONES/SOFT TISSUES: No significant soft tissue injury. No acutedisplaced calvarial fracture. PARANASAL SINUSES: Predominately clear. ORBITS: Right lens replacement. MASTOIDS/MIDDLE EAR: Predominately clear. OTHER: Calcified atherosclerotic changes of the intracranialvasculature. IMPRESSION: No acute intracranial abnormality. Chronic changes as above. THIS IS AN ELECTRONICALLY VERIFIED FINAL REPORT 07/30/2024 5:05 PM - Electronically signed by Benjie Sargent M.D. NS: NS Report ID: [id number] Reading Location: [place] [id number] PROCEDURES Final R esult * Influenza A/B, RSV, and COVID-19 PCR Nasopharyngeal (07/30/2024 3:52 PM CDT) COVID-19 RNA Negative Negative Influenza A RNA Negative Negative [facility] ([place]) Influenza B RNA Negative Negative [facility] ([place]) RSV RNA Negative Negative [facility] ([place]) Comment: Interpretive data: Testing performed by [facility]. This test is performed using the EcoloCap Xpert Xpress CoV-2/Flu/RSV plus assay. This is a multiplex, real- time reverse transcriptase PCR assay intended for the qualitative detection of nucleic acid from SARS-CoV-2, influenza A, influenza B, and respiratory syncytial virus. This assay has been cleared by the [place] Food and Drug administration. The performance characteristics have been verified by the [facility]. Results must be considered in the clinical context, and a negative result does not rule out infection. Interpretive Data last revised 2023 Nasopharyngeal 07/30/2024 3: 52 PM CDT 07/30/2024 3:56 PM CDT Narrative [facility] ([place]) - 07/30/2024 4:37 PM CDT Is the Patient experiencing symptoms consistent with COVID?->Yes us Leelee RIZVI LAB MICROBIOLOGY - GENERA L ORDERABLES Final Result [facility] ([place]) 1 [facility] Department [place] [address] * (ABNORMAL) Urinalysis reflex to microscopic and culture Urine (07/30/2024 3:06 PM CDT) Color, ur Yellow Yellow Clarity, ur Clear Clear [facility] ([place]) Specific gravity, ur 1.024 1.003 - 1.030 [facility] ([place]) pH, urine 5.0 [facility] ([place]) Comment: Interpretive Data U rine pH is affected by diet, medications, systemic acid-base disturbances, and renal tubular function. pH may affect urinary stone formation. For example, urine pH below 6.0 may help reduce the tendency for calcium phosphate stones and pH greater than 6.0 may reduce the tendency for uric acid stone formation. Source: [facility] Current Interpretive Data was last revised on 2017 Protein, ur ql Negative Negative [facility] ([place]) Glucose, ur ql 4+(A) Negative [facility] ([place]) Ketones, ur Negative Negative [facility] ([place]) Bilirubin, ur Negative Negative [facility] ([place]) Blood, ur Negative Negative [facility] ([place]) Urobilinogen, ur <2.0 <2.0 mg/dL [facility] ([place]) Nitrite, ur Negative Negative [facility] ([place]) Leukocyte esterase, ur Negative Negative [facility] ([place]) UA reflex comment Reflex conditions for microscopic UA and culture not met. [facility] ([place]) Urine 07/30/2024 3:06 PM CDT 07/30/2024 3:09 PM CDT Nikolas Doty MD LAB MICROBIOLOGY - GENERAL ORD ERABLES Final Result [facility] ([place]) 1 [facility] Department [place] [address] * (ABNORMAL) Sepsis Lactate w/ Reflex (07/30/2024 1:57 PM CDT) Sepsis Lactate 3.3(H) 0.7 - 2.0 mmol/L Blood 07/30/2024 1:57 PM CDT 07/30/2024 2:01 PM CDT Funmilayo RIZVI LAB BLOOD ORDERABLES Final Resu lt Performing Organization Address City/[facility]/ZIP Co de Phone Number [facility] ([place]) 1 [facility] [place] [address] * (ABNORMAL) eGFR (07/30/2024 1:57 PM CDT) eGFR 49(L) >=60 mL/min/1. 73 m2 Comment: Interpretive Data [...] interpretive data was last reviewed 2021. Blood 07/30/2024 1:57 PM CDT 07/30/2024 2:01 PM CDT us Nikolas Doty MD LAB BLOOD ORDERABLES Final Res ult [facility] ([place]) 1 [facility] Department [place] [address] * (ABNORMAL) Differential, auto (07/30/2024 1:57 PM CDT) Neutrophil abs 8.3(H) 1.5 - 6.5 K/cumm Imm gran abs 0.2(H) 0.0 - 0.1 K/cumm [facility] ([place]) Lymphocyte abs 1.2 0.8 - 3.3 K/cumm [facility] ([place]) Monocyte abs 0.7 0.2 - 0.8 K/cumm [facility] ([place]) Eosinophil abs 0.1 0.0 - 0.5 K/cumm [facility] ([place]) Basophil abs 0.1 0.0 - 0.1 K/cumm [facility] ([place]) Neutrophil pct 79.5 % [facility] ([place]) Comment: [...] was last revised on 2017. Monocyte pct 6.3 % [facility] ([place]) Comment: Interpretive Data Percent cell count reference ranges are not reported, since discordance with absolute values may lead to misinterpretation of CBC data. Current Interpretive Data was last revised on 2017. Eosinophil pct 0.6 % [facility] ([place]) Comment: [...] Data was last revised on 2017. Blood 07/30/2024 1:57 PM CDT 07/30/2024 2:01 PM CDT us Nikolas Doty MD LAB BLOOD ORDERABLES Final Res ult [facility] ([place]) 1 [facility] Department [place] [address] * (ABNORMAL) CBC with auto differential (07/30/2024 1:57 PM CDT) WBC 10.4(H) 3.8 - 9.9 K/cumm Hgb 16.0 13.0 - 17.5 g/dL [facility] ([place]) Hct 48.0 38.9 - 50.3 % [facility] ([place]) Plt 206 150 - 400 K/cumm [facility] ([place]) MPV 9.5 9.1 - 12.3 fL [facility] ([place]) RBC 5.33 4.30 - 5.80 M/cumm [facility] ([place]) MCV 90.1 81.3 - 96.4 fL [facility] ([place]) MCH 30.0 27.1 - 33.3 pg [facility] ([place]) MCHC 33.3 32.3 - 35.7 g/dL [facility] ([place]) RDW CV 13.8 11.1 - 14.9 % [facility] ([place]) RDW SD 45.2 35.7 - 48.1 fL [facility] ([place]) NRBC abs 0.00 0.00 - 0.01 K/cumm [facility] ([place]) Blood 07/30/2024 1:57 PM CDT 07/30/2024 2:01 PM CDT us Nikolas Doty MD LAB BLOOD ORDERABLES Final Res ult [facility] ([place]) 1 [facility] Department [place] [address] * (ABNORMAL) Comprehensive metabolic panel (07/30/2024 1:57 PM CDT) Sodium 139 135 - 145 mmol/L Potassium, pl 3.2(L) 3.3 - 4.9 mmol/L [facility] ([place]) Chloride 100 97 - 110 mmol/L [facility] ([place]) CO2 24 22 - 32 mmol/L [facility] ([place]) Anion gap 15 2 - 15 mmol/L [facility] ([place]) BUN 27(H) 6 - 25 mg/dL [facility] ([place]) Creatinine 1.50(H) 0.80 - 1.30 mg/dL [facility] ([place]) Glucose 238(H) 70 - 199 mg/dL [facility] ([place]) Comment: Interpretive Data Fasting glucose >/= 126 mg/dl is diagnostic for diabetes. Fasting is defined as no caloric intake [...] interpretive data was last revised 2022. Calcium 9.1 8.5 - 10.3 mg/dL [facility] ([place]) Bilirubin, total 0.3 0.1 - 1.2 mg/dL [facility] ([place]) Protein, pl 6.8 6.5 - 8.5 g/dL [facility] ([place]) Albumin 3.9 3.5 - 5.0 g/dL [facility] ([place]) Alk phos 98 40 - 130 Units/L [facility] ([place]) ALT 15 7 - 55 Units/L [facility] ([place]) AST 14 10 - 50 Units/L [facility] ([place]) Blood 07/30/2024 1:57 PM CDT 07/30/2024 2:01 PM CDT us Nikolas Doty MD LAB BLOOD ORDERABLES Final Res ult Performing Organization Address [facility]/ZIP Co de Phone Number [facility] ([place]) [address] [place] [address] [place] [place] [address] * (ABNORMAL) Troponin T high-sensitivity series (baseline, 2hr, 4hr, 6hr) (07/30/2024 1:56 PM CDT) Trop T hs 35(H) <=22 ng/L Comment: Interpretive Data For further hscTnT resources including the diagnostic algorithm and an aid in interpretation, copy and paste this link: https://nrl.testcatalog.org/show/hsTrop Current Interpretive Data last revised 2020. Blood 07/30/2024 1:56 PM CDT 07/30/2024 3:52 PM CDT us Leelee RIZVI LAB BLOOD ORDERABLES Holly l Result Performing Organization Address [facility] Co de Phone Number [facility] ([place]) 1 [facility] [place] [place] [address] * XR Chest 1 Vw Portable (07/30/2024 1:21 PM CDT) Anatomical Region Laterality Modality Body, Chest N/A Computed Radiogr aphy 07/30/2024 1:45 PM CDT Narrative 07/30/2024 1:47 PM CDT EXAM DESCRIPTION: XR CHEST 1 VIEW REASON FOR STUDY: Shortness of Breath Pt ambulatory to triage with a walker with c/o dizziness and weakness. Pt states he was diagnosed with pneumonia and has been taking his medication. TECHNIQUE: Single radiographic view(s) of the chest. COMPARISON: 04/04/2024 FINDINGS: LUNGS: There is linear scarring in the left lung base. No definite focal consolidation. No sizable pleural effusion or pneumothorax. HEART/MEDIASTINUM: Cardiac silhouette normal in size. Mediastinal and hilar contours appear normal. LINES/TUBES: None. BONES: No acute osseous abnormality. IMPRESSION: Linear scarring in the left lung base. No definite focal consolidation. THIS IS AN ELECTRONICALLY VERIFIED FINAL REPORT 07/30/2024 1:47 PM - Electronically signed by Jim Garcia M.D. AM: AM Report ID: [id number] Reading Location: [id number] Procedure Note Jim Garcia MD - 07/30/2024 EXAM DESCRIPTION: XR CHEST 1 VIEW REASON FOR STUDY: Shortness of Breath Pt ambulatory to triage with a walker with c/o dizziness and weakness. Pt states he was diagnosed with pneumonia and has been taking his medication. TECHNIQUE: Single radiographic view(s) of the chest. COMPARISON: 04/04/2024 FINDINGS: LUNGS: There is linear scarring in the left lung base. No definite focal consolidation. No sizable pleural effusion or pneumothorax. HEART/MEDIASTINUM: Cardiac silhouette normal in size. Mediastinal andhilar contours appear normal. LINES/TUBES: None. BONES: No acute osseous abnormality. IMPRESSION: Linear scarring in the left lung base. No definite focal consolidation. THIS IS AN ELECTRONICALLY VERIFIED FINAL REPORT 07/30/2024 1:47 PM - Electronically signed by Jim Garcia M.D. AM: AM Report ID: [id number] Reading Location: [id number] Funmilayo RIZVI [facility] XR PROCEDURES Final Result * CT Hip Left WO Contrast (06/12/2024 4:25 PM PHOTOGRAPHY EDITOR) Anatomical Region Laterality Modality Lower Extremities Left Computed Tomog katherin 06/12/2024 4:36 PM PHOTOGRAPHY EDITOR Narrative 06/12/2024 5:00 PM PHOTOGRAPHY EDITOR EXAM DESCRIPTION: CT HIP LEFT WO CONTRAST [...] Gerard Armstrong M.D. JA: FLAQUITA Report ID: [id number] Reading Location: [id number] Procedure Note Gerard Armstrong MD - 06/12/2024 [...] 06/12/2024 5:00 PM - Electronically signed by Gerardradha Armstrong M.D. JA: FLAQUITA Report ID: [id number] Reading Location: [id number] Ovi Villalobos MD IMG CT PROCEDURES Final Resu lt * Influenza A/B, RSV, and COVID-19 PCR Nasopharyngeal (06/12/2024 3:30 PM PHOTOGRAPHY EDITOR) COVID-19 RNA Negative Negative Influenza A RNA Negative Negative [facility] ([place]) Influenza B RNA Negative Negative [facility] ([place]) RSV RNA Negative Negative [facility]) Comment: Interpretive data: Testing performed by [facility]. This test is performed using the E[employer] Xpert Xpress CoV-2/Flu/RSV plus assay. This is a multiplex, real- time reverse transcriptase PCR assay intended for the qualitative detection of nucleic acid from SARS-CoV-2, influenza A, influenza B, and respiratory syncytial virus. This assay has been cleared by the [place] Food and Drug administration. The performance characteristics have been verified by the [facility]. Results must be considered in the clinical context, and a negative result does not rule out infection. Interpretive Data last revised 2023 Nasopharyngeal 06/12/2024 3: 30 PM PHOTOGRAPHY EDITOR 06/12/2024 3:47 PM PHOTOGRAPHY EDITOR Narrative [facility] ([place]) - 06/12/2024 4:33 PM PHOTOGRAPHY EDITOR Is the Patient experiencing symptoms consistent with COVID?->Unknown Ovi Villalobos MD LAB MICROBIOLOGY - GENERAL O RDERABLES Final Result [facility] ([place]) 1 [facility] Department [place] [address] * (ABNORMAL) Urinalysis reflex to microscopic and culture Urine (06/12/2024 3:30 PM PHOTOGRAPHY EDITOR) Color, ur Yellow Yellow Clarity, ur Clear Clear [facility] ([place]) Specific gravity, ur 1.021 1.003 - 1.030 [...] tendency for uric acid stone formation. Source: [facility] [employer] Current Interpretive Data was last revised on [...] Reflex to microscopic UA will be performed. [facility] ([place]) Urine 06/12/2024 3:30 PM PHOTOGRAPHY EDITOR 06/12/2024 3:46 PM PHOTOGRAPHY EDITOR Ovi Villalobos MD LAB MICROBIOLOGY - GENERAL O RDERABLES Final Result [facility] ([place]) 1 [facility] Department [place] [address] * Urinalysis, microscopic only (06/12/2024 3:30 PM PHOTOGRAPHY EDITOR) WBC, ur 0-5 0 - 5 /HPF RBC, ur 0-2 0 - 2 /HPF [facility] ([place]) Epithelial cells, squamous, ur 1-5 0 - 5 /HPF [facility] ([place]) Culture Reflex Comment Reflex conditions for urine culture (WBC >10) not met. [facility] ([place]) Urine 06/12/2024 3:30 PM PHOTOGRAPHY EDITOR 06/12/2024 3:46 PM PHOTOGRAPHY EDITOR Ovi Villalobos MD LAB URINE ORDERABLES Final R esult J[facility]ETA CUNHA) 1 [facility] Department [place] [address] * ECG 12 lead (06/12/2024 3:23 PM PHOTOGRAPHY EDITOR) 06/12/2024 3:23 PM PHOTOGRAPHY EDITOR Narrative [facility] 06/12/2024 5:06 PM PHOTOGRAPHY EDITOR Vent Rate: 61 bpm RR Interval: 982 msec MS Interval: 0 msec QRS Duration: 109 msec QT Interval: 458 msec QTC Interval: 460 msec P-R-T Dumont: 90525 - -24 - 119 degrees IMPRESSION: SUPRAVENTRICULAR RHYTHM, probably sinus BORDERLINE LEFT AXIS DEVIATION [QRS AXIS < -20] LEFT VENTRICULAR HYPERTROPHY AND ST-T CHANGE [VOLTAGE CRITERIA PLUS ST/T ABNORMALITY] ABNORMAL ECG Recommend repeat EKG with stable baseline for accurate rhythm assessment Electronically Signed By: Juarez Thornton MD Ovi Villalobos MD ECG ORDERABLES Final Result Performing Organization Address City/[facility]/ZIP Co de Phone Number [facility] * XR Knee Left 3 Views (06/12/2024 1:01 PM PHOTOGRAPHY EDITOR) Anatomical Region Laterality Modality Lower Extremities, Knee Left Computed Radiography 06/12/2024 1:23 PM PHOTOGRAPHY EDITOR Narrative 06/12/2024 1:27 PM PHOTOGRAPHY EDITOR EXAM DESCRIPTION: XR KNEE LEFT 3 VIEWS [...] Justin Yip M.D. CH: CLIVE Report ID: [id number] Reading Location: [id number] Procedure Note Justin Yip Jr., MD - [...] Justin Yip M.D. CH: CLIVE Report ID: [id number] Reading Location: [id number] Yaz Escobar MD IMG XR PROCEDURES F inal Result * XR Hip Left 2 or 3 Views (06/12/2024 1:01 PM PHOTOGRAPHY EDITOR) Anatomical Region Laterality Modality Lower Extremities, Hip, Pelvis Left C omputed Radiography 06/12/2024 1:27 PM PHOTOGRAPHY EDITOR Narrative 06/12/2024 1:28 PM PHOTOGRAPHY EDITOR EXAM DESCRIPTION: XR HIP LEFT 2 OR [...] Justin Yip M.D. CH: CLIVE Report ID: [id number] Reading Location: [id number] Procedure Note Justin Yip Jr., MD - 06/12/2024 EXAM DESCRIPTION: XR HIP LEFT 2 OR 3 VIEWS REASON FOR STUDY: Pt to ED via [facility]. Per EMS Pt tripped yesterday while [...] Justin Yip M.D. CH: CLIVE Report ID: [id number] Reading Location: [id number] us Yaz Escobar MD IMG XR PROCEDURES F inal Result * POCT glucose (06/12/2024 12:46 PM PHOTOGRAPHY EDITOR) Glucose, POC 170 70 - 199 mg/dL Blood 06/12/2024 12:4 6 PM PHOTOGRAPHY EDITOR 06/12/2024 12:46 PM PHOTOGRAPHY EDITOR us Notinfile Unknown LAB POCT ORDERABLES - DEVICE F inal Result Performing Organization Address [facility] de Phone Number [facility] ([place]) 1 [facility] [place] [address] * (ABNORMAL) Hemoglobin A1c (08/30/2023 2:23 AM CDT) Hgb A1C 6.3(H) 4.0 - 5.6 % Estimated Average Glucose 134 mg/dL [facility] ([place]) Comment: The ADA recommends reporting an estimated Average Glucose (eAG) with all Hemoglobin A1c results using the equation derived from a study of 507 normal and diabetic adults. Minority populations were underrepresented and children were not included. (Diabetes Care 31:0159-2118, 2008). The eAG is not equivalent to a fasting glucose. Blood 08/30/2023 2:23 AM CDT 08/30/2023 12:50 PM CDT Destiny Devi NEUROLOGICAL SURGEON LAB BLOOD ORDERABLES Final R esult Performing Organization Address [facility] Co de Phone Number [facility] ([place]) 1 [facility] [place] [address] * (ABNORMAL) Lipid panel (08/28/2023 8:27 PM CDT) Pathologist [facility] Cholesterol 149 30 - 199 mg/dL Comment: [...] on 2017. HDL 26(L) >=40 mg/dL [facility] ([place]) Comment: Interpretive Data Ages < or = 19 years Acceptable: >45 mg/dL Borderline low: 40-45 mg/dL Low: <40 mg/dL Ages > or = 20 years Desirable: >or= 60 mg/dL Low: <40 mg/dL Literature References: 1. Expert Panel on Integrated Guidelines for Cardiovascular Health and Risk Reduction in Children and Adolescents. Pediatrics 2011;128:S213 2. NCEP Expert Panel. Circulation 2003;110:227 Current Interpretive Data was last revised on 2017. LDL, calculated 77 <=129 mg/dL [facility] ([place]) Comment: Interpretive [...] last revised on 2017. Chol/HDL ratio 6 [facility] ([place]) Blood 08/28/2023 8:27 PM CDT 08/28/2023 10:13 PM CDT us Jesus Payan MD LAB BLOOD ORDERABLES Final Re sult [facility] 1 [facility] [place] [address] * PSA screen (10/28/2021 2:47 PM CDT) PSA-Total 3.15 <=5.40 ng/mL [facility] ([place]) Comment: Interpretive Data AGE SEX [...] data last revised 21. Testing performed by: [facility], [address] [place] [address]., [id number] Blood 10/28/2021 2:47 PM CDT 10/28/2021 7:50 PM CDT us Sohail Gould MD LAB BLOOD ORDERABLES Holly l Result Performing Organization Address City/[facility]/ZIP Co de Phone Number [facility] 1 [facility] [place] [address] * (ABNORMAL) Albumin Creatinine Ratio, Urine (10/28/2021 2:47 PM CDT) Albumin Ur 713.6 mg/L [facility] ([place]) Comment: Interpretive Data No reference range established. Current interpretive data was last revised 2018. Testing performed by: [facility], [address] [place] [address]., [id number] Creatinine Ur 343.1 mg/dL [facility] ([place]) Comment: Interpretive Data No reference range established. Current interpretive data was last revised 2018. Testing performed by: [facility], [address] [place] [address]., [id number] Albumin Creatinine Ratio, Ur 208(H) 1 - 29 mg/g [facility] ([place]) Comment:Testing performed by : [facility], [address] [place] [address]., [id number] Urine 10/28/2021 2:47 PM CDT 10/28/2021 9:10 PM CDT Sohail Gould MD LAB URINE ORDERABLES Holly l Result [facility] ([place]) 1 [facility] Department [place] [address] * Stool DNA - Cologuard (11/30/2020) Scribed Stool DNA - Cologuard Negative EXTERNAL LAB Stool Torri Provider LAB BODY FLUIDS AND STOOL S ORDERABLES Final Result Performing Organization Address City/[facility]/ZIP Co de Phone Number EXTERNAL LAB from Last 3 Months or Most Recently Relevant to Health Maintenance Insurance IDPA [facility] MEDICARE ADVANTAGE IDPA [facility] MEDICARE ADVANTAGE [facility] MEDICARE [facility] Address: [facility] [address] [place] [address] [facility] MDCR HMO REF IDPA Advance Directives For more information, please contact: [phone] * Full Code (Latest Code Status on File) Date Activated Date Inactivated Comments 07/30/2024 11:45 PM 08/02/2024 8:23 PM * Full Code Date Activated Date Inactivated Comments 04/04/2024 7:07 PM 04/10/2024 8:18 PM * Full Code Date Activated Date Inactivated Comments 12/28/2023 6:16 PM 12/31/2023 5:44 PM * Full Code Date Activated Date Inactivated Comments 08/29/2023 4:46 PM 09/02/2023 8:05 PM * Full Code Date Activated Date Inactivated Comments 08/28/2023 8:46 PM 08/29/2023 4:46 PM Care Teams Property Insurance Agent Relationship Specialty Start Date End Date Melchor Woodard MD PCP - General Family Practice 07/30/22 Nicolas Jung MD Surgeon Orthopedic Surgery 08/05/21 Louie Lomeli MD Consulting Physician Cardiology 12/23/21 Jairo Sparrow MD [address] [place] [address] DR MAO [address] [place] [id number] Consulting Physician Neurology 12/14/22
--- OUTSIDE RECORDS SUMMARY | 2024-09-06 10:49 | XMS_ITS | Referral Summary ---
Author Organization [facility] [address] [facility] Address [address] [place] [address] Care Team Providers Care Hog Dropper Name Role Phone Nicolas Jung MD Unavailable [phone] Louie Lomeli MD Unavailable [phone] Melchor Woodard MD Primary Care Provider [phone] Jairo Sparrow MD Unavailable [phone] Encounters Date Type Department Care Team Description 08/13/2024 Orders Only [facility] [address] [place] [address] [address] [place] [phone] Effie Avelar NP Dizziness and giddiness (Primary Dx) 08/13/2024 Telephone [facility] [address] [facility] [address] [place] [phone] Jairo Sparrow MD 08/10/2024 11:13 AM CDT - 08/10/2024 1:21 PM CDT Emergency [facility] Emergency Department 1 [place] [address] Gouty arthritis of left foot (Primary Dx) Discharge Disposition: Discharge to home or self care 08/09/2024 Documentation [facility] [address] [place] [address] Rodriguez Goldstein RN 07/30/2024 2:40 PM CDT - 08/02/2024 4:22 PM CDT Hospital Encounter [facility] Acute Medicine 1 [place] [address] Krystal Araujo MD Singh, Arjun, MD Dizziness (Primary Dx); Dehydration; Dizziness and giddiness; Hypertension, essential; Class 2 severe obesity due to excess calories with serious comorbidity and body mass index (BMI) of 35.0 to 35.9 in adult (HCC); Leg weakness, bilateral Discharge Disposition: Discharge to home or self care 07/10/2024 Telephone [facility] [address] [facility] [address] [place] [phone] Nicolas Jung MD 06/12/2024 12:26 PM REFRIGERATOR TESTER - 06/12/2024 7:11 PM [facility] Emergency [facility] Emergency Department 1 [place] [address] Ovi Villalobos MD Osteoarthritis of left hip, unspecified osteoarthritis type (Primary Dx) Discharge Disposition: Discharge to home or self care from Last 3 Months Allergies Active Allergy Reactions Criticality Noted Date Comments Ceftriaxone Nausea only Low 09/23/2021 Fbskunn-Ypa-Rjy Reductase Inhibitors Other (See comments) Low 01/26/2018 Generalized pain Medications losartan (COZAAR) 25 mg tablet Take 1 tablet (25 mg total) by mouth daily 07/29/19 23 Active levothyroxine (SYNTHROID) 50 mcg tablet Take 1 tablet (50 mcg total) by mouth early childhood education specialist before breakfast Active aspirin 81 mg enteric [...] MG TOTAL) BY MOUTH DAILY 30 tablet 06/27/19 25 2025 Active empagliflozin (JARDIANCE) 25 [...] 1 tablet by mouth daily 30 tablet 1 08/04/19 25 2025 Active famotidine (PEPCID) 20 mg tablet Take 1 tablet (20 mg total) by mouth daily 30 tablet 1 08/03/19 25 2025 Active traMADoL (ULTRAM) 50 [...] 06/01/2022 Assessment & Plan (06/01/2022 3:29 PM REFRIGERATOR TESTER): Worsening, patient reports symptoms are worse 1st thing in the morning, has to clean eyes before can open; fewer symptoms throughout the day; most consistent with allergic conjunctivitis Start azelastine eyedrops Diabetic neuropathy, type II diabetes mellitus 0 05/27/2022 LALITO (acute kidney injury) 03/10/2022 Obesity (BMI 30-39.9) 03/10/2022 Other chest pain 03/09/2022 Assessment & Plan (06/01/2022 3:28 PM REFRIGERATOR TESTER): Continues to have episodes of chest pain, started in nature; can radiate to right-side of chest Patient reports some relief with ASA; has nitroglycerin Will continue to monitor; if negative cardio workup, consider esophageal spasms of source of pain Assessment & Plan (04/06/2022 11:47 AM REFRIGERATOR TESTER): Reports pressure-like chest pain today, worsening fatigue [...] (12/29/2021): Added automatically from request for surgery [id number] Leukocytosis 12/19/2021 UTI (urinary tract infection) 12/19/2021 Coronary artery disease 12/18/2021 Overview (12/18/2021): Added automatically from request for surgery [id number] Assessment & Plan (03/07/2022 9:41 AM REFRIGERATOR TESTER): Not well controlled, patient had stopped taking all medications, had elevated blood pressures today Encouraged patient to continue medications as prescribed Continue Brilinta 90 mg b.i.d., Zetia 10 mg daily Hypertensive crisis 12/16/2021 Assessment & Plan (12/17/2021 12:13 PM CDT): Present on admission, received Labetalol iv, currently resolved NSTEMI (non-ST elevated myocardial infarction) 0 12/16/2021 Overview (12/17/2021): Added automatically from request for surgery [id number] Assessment & Plan (01/10/2022 9:21 PM CDT): [...] Nasal saline spray (Simply saline, Little Remedies, Nesbitt, [place]) 2 second sprays or 2 squeezes into [...] (11/18/2020): Added automatically from request for surgery [id number] Assessment & Plan (03/20/2021 4:30 PM REFRIGERATOR TESTER): Stable, patient waiting on improved A1c for [...] (11/18/2020): Added automatically from request for surgery [id number] Scar of vermilion border of upper lip 07/04/2020 Overview (07/04/2020): Referral to plastic surgery for evaluation and possible affects scar tissue Cicatrix 07/04/2020 Tension headache 06/30/2020 Assessment & Plan (06/25/2021 10:33 AM REFRIGERATOR TESTER): Patient has recurrent left-sided tension headaches; likely secondary to pressure on muscles from lipoma Assessment & Plan (06/09/2021 1:59 PM REFRIGERATOR TESTER): Patient has headache for the last 4-6 [...] nostril Assessment & Plan (06/30/2020 12:31 PM REFRIGERATOR TESTER): Patient has severe left sided headache; reports worsened with looking down or leaning back in bed; may be related to sinuses vs tension type headache -given congestion may consider sinus pressure and will refer to ENT Chronic midline low back pain without sciatica 0 06/30/2020 Assessment & Plan (06/30/2020 12:33 PM REFRIGERATOR TESTER): Not well controlled; likely worsened due to poor core strength; encouraged weight loss to reduce strain on lower back (has severe central adiposity) Will give patient core exercises to strengthen low back and abodmen Lipoma of neck 06/25/2020 Assessment & Plan (06/25/2021 10:32 AM REFRIGERATOR TESTER): Not well controlled, patient has left-sided tension style headaches, S with noted changing position of head due to size of lipoma Patient benefit from surgical removal to help improve overall posture as well as potentially improved tension headaches Assessment & Plan (05/14/2021 1:29 PM REFRIGERATOR TESTER): Patient has large lipoma on back left-sided neck; reports left-sided headaches, which may be contributed by lipoma putting pressure on muscles sugar causing tension headaches Referral to Plastic surgery for removal Assessment & Plan (03/20/2021 4:29 PM REFRIGERATOR TESTER): Stable, Impacts patient ability to turn had; will continue monitor refer to surgery when appropriate Primary osteoarthritis of left knee 05/08/2020 Assessment & Plan (11/17/2021 3:53 PM CDT): Continues to have significant pain, has some symptom improvement, but limited range of motion and pain with movement Recent steroid injection Follow-up with orthopedics Assessment & Plan (04/21/2021 2:52 PM REFRIGERATOR TESTER): Stable, continues with physical therapy which is [...] monitor Assessment & Plan (05/14/2021 1:29 PM REFRIGERATOR TESTER): Improving, patient has walked about 12 lb since last visit; encouraged continued dietary changes, decreasing in take through portion control as well as lowering carbohydrate intake Encourage daily activity of 30 minutes of moderate intensity aerobic exercise daily Assessment & Plan (03/20/2021 4:29 PM REFRIGERATOR TESTER): Weight is stable, no significant change; patient [...] week Assessment & Plan (05/05/2020 3:33 PM REFRIGERATOR TESTER): Not well controlled, patient reports weight loss [...] daily Assessment & Plan (06/25/2021 10:31 AM REFRIGERATOR TESTER): Stable, unclear control, patient reports inconsistent medications use Continue levothyroxine 50 mcg daily, check TSH today Assessment & Plan (04/21/2021 2:52 PM REFRIGERATOR TESTER): Stable, well controlled; continue levothyroxine 50 mcg daily Assessment & Plan (03/20/2021 4:28 PM REFRIGERATOR TESTER): Stable, well controlled; continue levothyroxine 50 mcg daily Assessment & Plan (09/24/2020 3:00 PM CDT): Recheck TSH today as previous TSH was mildly elevated, is still elevated will adjust levothyroxine given patient has complaints of generalized fatigue Assessment & Plan (06/16/2020 9:09 AM REFRIGERATOR TESTER): Will recheck thyroid now that has been on medication for ~6 weeks Assessment & Plan (05/05/2020 3:36 PM REFRIGERATOR TESTER): Mild elevation of TSH, patient has multiple symptoms including inability to lose weight, chronic fatigue and chronic tiredness Will start at low dose levothyroxine 25 mcg, will recheck TSH in approximately 6 weeks Arthritis 03/24/2020 DM2 (diabetes mellitus, type 2) 03/24/2020 Assessment & Plan (06/01/2022 3:30 PM REFRIGERATOR TESTER): Not well controlled, A1c has always been [...] diet Assessment & Plan (06/25/2021 10:31 AM REFRIGERATOR TESTER): Stable, improving; patient A1c has been down trending to 7.5 last time, recheck A1c today Continue metformin XR 1000 mg daily Assessment & Plan (05/14/2021 1:28 PM REFRIGERATOR TESTER): Stable, improving; last A1c was decreasing to 7.5 Encouraged patient to continue with low-carbohydrate diet; encourage education dietary changes as well as regular exercise Continue metformin 1000 mg daily Assessment & Plan (04/21/2021 2:52 PM REFRIGERATOR TESTER): Stable, improving; patient reports he has been working on decreasing carbohydrates Has a decreased appetite well on Rybelsuswith minimal side effects Continue metformin 1000 mg daily with breakfast, Rybelsus 7 mg prior to breakfast Continue to monitor encourage continued decreased carbohydrate diet Recheck labs at follow-up appointment Assessment & Plan (03/20/2021 4:28 PM REFRIGERATOR TESTER): Stable, well controlled, improving Patient reports improved [...] diet Assessment & Plan (05/05/2020 3:32 PM REFRIGERATOR TESTER): Not well controlled, A1c is 7.7 today [...] strength Assessment & Plan (03/26/2020 12:24 PM REFRIGERATOR TESTER): Will check blood sugars and A1c to evaluate for control of diabetes on metformin Hyperlipidemia 03/24/2020 Assessment & Plan (12/17/2021 12:16 PM CDT): Pt is not on a statin due to intolerance LDL is 107. Started on Zetia per cardiology. Assessment & Plan (10/13/2021 2:34 PM CDT): Not well controlled, encouraged continued dietary changes and weight loss Assessment & Plan (05/14/2021 1:28 PM REFRIGERATOR TESTER): Not well controlled, patient cannot tolerate statins; encouraged dietary changes order reduce cholesterol through low-fat high-fiber diet Assessment & Plan (05/05/2020 3:35 PM REFRIGERATOR TESTER): Poorly controlled patient has elevated total and LDL cholesterol with knee depressed HDL cholesterol Triglycerides are also elevated at 254 Patient is unable to tolerate statin therapy due to muscular pain of thigh muscles Will encouraged diet and exercise as ways to maintain and modify cholesterol level Hypertension, essential 03/24/2020 Assessment & Plan (06/01/2022 3:30 PM REFRIGERATOR TESTER): Stable, improving; blood pressure today in clinic was normal; patient reports home measurements are improving Continue amlodipine 10 mg daily, hydralazine 25 mg b.i.d., metoprolol 100 mg daily Losartan was previously on medication list, but not part of pharmacy was Given blood pressures appropriate, will continue to monitor, can rehab losartan if blood pressure increases Assessment & Plan (04/06/2022 11:47 AM REFRIGERATOR TESTER): Stable, improving; most recent blood pressure was at target Continue losartan 100 mg daily, metoprolol 100 mg daily, amlodipine 10 mg daily Assessment & Plan (03/07/2022 9:40 AM REFRIGERATOR TESTER): Not well controlled; patient reports that he [...] daily Assessment & Plan (06/25/2021 10:30 AM REFRIGERATOR TESTER): Not well controlled; blood pressure is elevated this morning prior to surgery, elevated again in office Given blood pressure was just normal on 06/09/2021, will increase lisinopril to 40 mg daily Encouraged patient to consistently take medications, with no missed or skipped doses Assessment & Plan (05/14/2021 1:27 PM REFRIGERATOR TESTER): Not well controlled, blood pressure remains elevated; patient has been inconsistent with taking medications Will continue lisinopril 20 mg, follow-up at next appointment; if blood pressure still is elevated will adjust medication Assessment & Plan (03/20/2021 4:27 PM REFRIGERATOR TESTER): Stable well controlled; blood pressure a target; [...] needed Assessment & Plan (05/05/2020 3:34 PM REFRIGERATOR TESTER): Well controlled, patient's blood pressure is at target today Will continue with current therapies and continue to monitor patient Assessment & Plan (03/26/2020 12:24 PM REFRIGERATOR TESTER): Stable well controlled, continue present management Post-traumatic [...] arthroscopy Assessment & Plan (06/16/2020 9:09 AM REFRIGERATOR TESTER): Not well controlled, had relief with cortisone injection, but now has worsening pain; relief last for about 3-4 weeks -has some instability of patella, able to 'adjust' patella to relieve pain and improve ROM Assessment & Plan (05/05/2020 3:34 PM REFRIGERATOR TESTER): Stable, not controlled Patient is not able to consistently place weight on the Patient to follow-up with orthopedics further evaluation, based on recommendations may refer to physical therapy Assessment & Plan (03/26/2020 12:24 PM REFRIGERATOR TESTER): Will start treatment with diclofenac cream, and use of the triamcinolone as necessary If needed will refer to physical therapy for further improvement in pain Polyneuropathy associated with underlying diseas e ([facility]) 10/24/2019 Assessment & Plan (04/06/2022 11:44 AM REFRIGERATOR TESTER): Continues to have numbness and weakness in bilateral legs; patient scheduled nerve conduction study Continue gabapentin 100 mg TID Continue with exercise, and strength training; noted to have decreased strength in hip flexors; normal with knee -if EMG is normal, consider CK or evaluation of polymyalgia or polymysitis Assessment & Plan (05/05/2020 3:34 PM REFRIGERATOR TESTER): Patient has episodes of decreased balance due [...] management Assessment & Plan (06/25/2021 10:32 AM REFRIGERATOR TESTER): Not well controlled, patient continues to have frequent nighttime urination; encouraged patient to continue follow-up with Urology and reschedule surgery Continue myrbetriq 50 mg daily Assessment & Plan (03/20/2021 4:30 PM REFRIGERATOR TESTER): Patient continues to have increased urinary frequency, [...] unspecified mechanism 12/08/2022 07/15/2023 Statin intolerance 10/13/2021 Immunizations Immunization Administration Dates Next Due Influenza, [...] materials from doctor or pharmacy Sometimes 01/17/2024 [facility] Utilities Answer Date Recorded In the [...] often do you attend chur ch or jain services? Never 07/31/2024 Do you belong to any clubs o r organizations such as roman catholic groups, unions, fraternal or athletic groups, or [...] place to sleep or slept in a retirement (including now)? No 08/29/2023 Housing Stability Vital [...] time in the past 12 m [facility], were you homeless or living in a retirement (including now)? No 07/31/2024 Personal Safety Answer [...] on file Legal Sex Male 12:23 AM REFRIGERATOR TESTER Gender Identity Not on file Sexual Orientation [...] 08/01/2024 9:05 AM CDT Plan of Treatment Not on file Medical Devices Implanted Type Area Hemodialysis Lab Technician Device Identifier Shelf Expiration Date Model / Serial / Lot [employer] Synergy Xd Monorail 3.5mm 12mm 144cm Delivery System 1 Access [id number] - [id number] Implanted:Qty: 1 on 08/29/2023 by Louie Lomeli MD at [facility] Stent [employer] 10/19/2024 [id number] / / [id number] [employer] Stent Coronary De Rx Cocr Xience Skypoint [id number] - [id number] Implanted:Qty: 1 on 12/17/2021 by Louie Lomeli MD at [facility] [employer] 08/24/2023 [id number] [employer] Stent Coronary De Rx Cocr Xience Skypoint [id number] - [id number] Implanted:Qty: 1 on 12/17/2021 by Louie Lomeli MD at [facility] [employer] 08/28/2023 [id number] [employer] Synergy 3mm 16mm 144cm Radiopaque 1 Access Port Inflation Lumen [id number] - [id number] Implanted:Qty: 1 on 12/22/2021 by Louie Lomeli MD at [facility] [employer] 09/04/2022 [id number] / / [id number] [employer] Angio-Seal Vip 6fr Closere Device [id number] - [id number] Implanted:Qty: 1 on 12/22/2021 by Louie Lomeli MD at [facility] [employer] Days[employer] 09/29/2022 [id number] / / [id number] Procedures Procedure Name Priority Date/Time Associated Diagnosis [...] CDT POCT GLUCOSE DEVICE Routine 08/02/2024 1 :52 AM CDT POCT GLUCOSE DEVICE Routine 08/01/2024 [...] LEFT WO CONTRAST ED 06/12/2024 4:25 PM REFRIGERATOR TESTER URINALYSIS, MICROSCOPIC ONLY STAT 06/12/2024 3:30 PM REFRIGERATOR TESTER URINALYSIS AND REFLEX TO MICROSCOPIC AND CULTURE STAT 06/12/2024 3:30 PM REFRIGERATOR TESTER INFLUENZA A/B, RSV, AND COVID-19 PCR STAT 06/12/2024 3:30 PM REFRIGERATOR TESTER ECG 12-LEAD STAT 06/12/2024 3:23 PM REFRIGERATOR TESTER XR KNEE LEFT 3 VIEWS ED 06/12/2024 1:01 PM REFRIGERATOR TESTER XR HIP LEFT 2 OR 3 VIEWS ED 06/12/2024 1:01 PM REFRIGERATOR TESTER POCT GLUCOSE DEVICE Routine 06/12/2024 1 2:46 PM REFRIGERATOR TESTER HEMOGLOBIN A1C Routine 08/30/2023 2:23 AM CDT [...] BLOOD ORDERABLES Final R esult [facility] [place]) [address] [facility] Department [place] [address] * (ABNORMAL) Differential, auto (08/10/2024 [...] R esult [facility] ([place]) 1 [facility] [place] [address] * (ABNORMAL) CBC with auto differential (08/10/2024 11:58 AM CDT) WBC 12.99(H) 3.80 - 9.90 K/cumm Hgb 17.0 13.0 - 17.5 g/dL [facility] ([place]) Hct 51.7(H) 38.9 - 50.3 % [facility] ([place]) Plt 206 150 - 400 K/cumm [facility] [...] RDW SD 47.7 35.7 - 48.1 fL [facility] ([place]) NRBC abs 0.00 0.00 - 0.01 K/cumm [facility] ([place]) Blood 08/10/2024 11:5 8 AM CDT 08/10/2024 12:00 PM CDT Stanley [facility] LAB BLOOD ORDERABLES Final R esult J[facility]A [facility] ([place]) [address] [facility] [place] [address] * Erythrocyte sedimentation rate (08/10/2024 11:58 AM CDT) Erythrocyte sedimentation rate 11 1 - 20 mm/hr Blood 08/10/2024 11:5 8 AM CDT 08/10/2024 12:00 PM CDT [facility] LAB BLOOD ORDERABLES Final R esult [facility] ([place]) 1 [place] [address] * (ABNORMAL) CRP (acute phase) (08/10/2024 11:58 AM CDT) Pathologist [facility] CRP 19.1(H) <=10.0 mg/L Blood 08/10/2024 11:5 8 AM CDT 08/10/2024 12:00 PM CDT Stanley [facility] LAB BLOOD ORDERABLES Final R esult Performing Organization Address [facility] Co de Phone Number [facility] ([place]) 1 [facility] [place] [address] * (ABNORMAL) Uric acid (08/10/2024 11:58 AM CDT) Pathologist [facility] Uric acid 8.8(H) 3.0 - 8.0 mg/dL Blood 08/10/2024 11:5 8 AM CDT 08/10/2024 12:00 PM CDT [facility] LAB BLOOD ORDERABLES Final R esult Performing Organization Address City/[facility]/ZIP Co de Phone Number [facility] ([place]) 1 [place] [address] * (ABNORMAL) Comprehensive metabolic panel (08/10/2024 11:58 AM CDT) Sodium 141 135 - 145 mmol/L Potassium, pl 3.5 3.3 - 4.9 mmol/L [facility] ([place]) Chloride 104 97 - 110 mmol/L [facility] ([place]) CO2 24 22 - [...] R esult [facility] ([place]) [address] [facility] Department of Laboratories [place], [place] [id number] * XR Foot Left 3 or More Views (08/10/2024 10:10 AM CDT) Anatomical Region Laterality Modality Lower Extremities, Foot Left Computed Radiography 08/10/2024 10:5 2 AM CDT Narrative 08/10/2024 10:58 AM CDT EXAM DESCRIPTION: XR FOOT LEFT 3 OR MORE VIEWS REASON FOR STUDY: pain to foot Pt to ED via [facility]. Per Pt he has had left [...] Lawrence Clark M.D. MZ: INGRID Report ID: [id number] Reading Location: [id number] Procedure Note Lawrence Clark MD - 08/10/2024 EXAM DESCRIPTION: XR FOOT LEFT 3 OR MORE VIEWS REASON FOR STUDY: pain to foot Pt to ED via [facility]. Per Pt he has had left [...] Lawrence Clark M.D. MZ: INGRID Report ID: [id number] Reading Location: [place] [address] us Xavi Murray MD IMG XR PROCEDURES F inal Result * POCT glucose (08/02/2024 11:54 AM CDT) Glucose, POC 163 70 - 199 mg/dL Blood 08/02/2024 11:5 4 AM CDT 08/02/2024 11:54 AM CDT us Corey Russo MD LAB POCT ORDERABLES - DEVICE Fin al Result [facility] ([place]) 1 [facility] [employer] [address] * POCT glucose (08/02/2024 8:05 AM CDT) Glucose, POC 123 70 - 199 mg/dL Blood 08/02/2024 8:05 AM CDT 08/02/2024 8:05 AM CDT Corey Russo MD LAB POCT ORDERABLES - DEVICE Fin al Result Performing Organization Address City/[facility] Co de Phone Number [facility] ([place]) [address] [place] [address] [place] [address] * (ABNORMAL) eGFR (08/02/2024 4:04 AM CDT) [...] nal Result [facility] ([place]) [address] [facility] Department [place] [address] * (ABNORMAL) Differential, auto (08/02/2024 4:04 AM [...] us Krystal Araujo MD LAB BLOOD ORDERABLES [facility] Result [facility] ([place]) [address] [facility] Department [place] [address] * CBC with auto differential (08/02/2024 4:04 [...] [place]) MCHC 32.8 32.3 - 35.7 g/dL [facility] ([place]) RDW CV 13.9 11.1 - 14.9 % [facility] ([place]) RDW SD 46.5 35.7 - 48.1 fL [facility] ([place]) NRBC abs 0.00 0.00 - 0.01 K/cumm [facility] ([place]) Blood 08/02/2024 4:04 AM CDT 08/02/2024 5:08 AM CDT us Krystal Araujo MD LAB BLOOD ORDERABLES Fi nal Result [facility] ([place]) [address] [facility] Department [place] [address] * (ABNORMAL) Comprehensive metabolic panel (08/02/2024 4:04 AM CDT) Sodium 143 135 - 145 mmol/L Potassium, pl 3.4 3.3 - 4.9 mmol/L [facility] ([place]) Chloride 106 97 - 110 mmol/L [facility] ([place]) CO2 24 22 - 32 mmol/L [facility] ([place]) Anion gap 13 2 - 15 mmol/L [facility] ([place]) BUN 25 6 - 25 mg/dL [facility] ([place]) Creatinine 1.44(H) 0.80 - 1.30 mg/dL [facility] ([place]) Glucose 132 70 - 199 mg/dL [facility] ([place] [...] BLOOD ORDERABLES Fi nal Result [facility] ([place]) 1 [facility] [place] [address] * POCT glucose (08/02/2024 1:52 AM CDT) Glucose, POC 130 70 - 199 mg/dL Blood 08/02/2024 1:52 AM CDT 08/02/2024 1:52 AM CDT Corey Russo MD LAB POCT ORDERABLES - DEVICE Fin al Result Performing Organization Address City/[facility]/ZIP Co de Phone Number [facility] ([place]) 1 [facility] [place] [address] * (ABNORMAL) POCT glucose (08/01/2024 7:54 PM CDT) Glucose, POC 235(H) 70 - 199 mg/dL Blood 08/01/2024 7:54 PM CDT 08/01/2024 7:54 PM CDT Corey Russo MD LAB POCT ORDERABLES - DEVICE Fin al Result [facility] ([place]) 1 [facility] [place] [address] * POCT glucose (08/01/2024 4:25 PM CDT) Glucose, POC 118 70 - 199 mg/dL Blood 08/01/2024 4:25 PM CDT 08/01/2024 4:25 PM CDT us Corey Russo MD LAB POCT ORDERABLES - DEVICE Fin al Result JULIETA GUERRERO ([place]) 1 [facility] Department [place] [address] * MRI Thoracic Spine WO Contrast (08/01/2024 [...] No significant spinal stenosis. C2-C3: Disc bulge. Lplt-wf-mikmfpcp facet arthropathy. Mild uncovertebral arthropathy. Mild right [...] Lawrence Clark M.D. MZ: INGRID Report ID: [id number] Reading Location: [id number] Procedure Note Lawrence Clark MD - 08/01/2024 [...] No significant spinal stenosis. C2-C3: Disc bulge. Ircr-nj-gdriewtp facet arthropathy. Milduncovertebral arthropathy. Mild right neural [...] Lawrence Clark M.D. MZ: MZ Report ID: [id number] Reading Location: [id number] Diomedes Haywood NP IMG MRI PROCEDURES Final Re sult * [...] No significant spinal stenosis. C2-C3: Disc bulge. Iypg-do-qsgixvjz facet arthropathy. Mild uncovertebral arthropathy. Mild right [...] Lawrence Clark M.D. MZ: INGRID Report ID: [id number] Reading Location: [id number] Procedure Note Lawrence Clark MD - 08/01/2024 [...] No significant spinal stenosis. C2-C3: Disc bulge. Cyzy-lz-xkynfbur facet arthropathy. Milduncovertebral arthropathy. Mild right neural [...] Lawrence Clark M.D. MZ: INGRID Report ID: [id number] Reading Location: [id number] us Diomedes Haywood NP IMG MRI PROCEDURES Final Re sult * [...] Lawrence Clark M.D. MZ: INGRID Report ID: [id number] Reading Location: [id number] Procedure Note Lawrence Clark MD - 08/01/2024 EXAM DESCRIPTION: MRI BRAIN WO CONTRAST REASON FOR STUDY: Ataxia, nontraumatic, stroke excluded, Gaitinstability and falls Ataxia, Gait instability and falls TECHNIQUE: Multiplanar imaging includes non-contrasted T1, T2, FLAIR, and diffusion with ADC map sequences. Additional sequence(s) sensitive [employer]. Images stored on PACS. COMPARISON: 02/03/2023.. 07/30/2024. [...] Lawrence Clark M.D. MZ: INGRID Report ID: [id number] Reading Location: [id number] Mike Harris MD [facility] MRI PROCEDURES Final Result * POCT glucose (08/01/2024 11:37 AM CDT) Glucose, POC 161 70 - 199 mg/dL Blood 08/01/2024 11:3 7 AM CDT 08/01/2024 11:37 AM CDT Corey Russo MD LAB POCT ORDERABLES - DEVICE Fin al Result Performing Organization Address City/[facility]/ZIP Co de Phone Number JULIETA GUERRERO ([place]) 1 [facility] [place] [address] * POCT glucose (08/01/2024 7:44 AM CDT) Glucose, POC 115 70 - 199 mg/dL Blood 08/01/2024 7:44 AM CDT 08/01/2024 7:44 AM CDT Corey Russo MD LAB POCT ORDERABLES - DEVICE Fin al Result Performing Organization Address City/[facility] Co de Phone Number [facility] ([place]) 1 [facility] [place] [address] * (ABNORMAL) eGFR (08/01/2024 5:53 AM CDT) Pathologist [facility] eGFR 54(L) >=60 mL/min/1. 73 m2 Comment: [...] MD LAB BLOOD ORDERABLES Fi nal Result [facility] ([place]) 1 [facility] Department [place] [address] * (ABNORMAL) Differential, auto (08/01/2024 5:53 AM CDT) Neutrophil abs 7.14(H) 1.50 - 6.50 K/cumm Imm gran abs 0.20(H) 0.00 - 0.10 K/cumm [facility] ([place]) Lymphocyte abs 1.16 0.80 - 3.30 K/cumm [facility] ([place]) Monocyte abs 0.65 0.20 - 0.80 K/cumm [facility] ([place]) Eosinophil abs 0.08 0.00 - 0.50 K/cumm [facility] ([place]) Basophil abs 0.04 0.00 - 0.10 K/cumm [facility] ([place]) Neutrophil pct 77.0 % [facility] ([place]) Comment: Interpretive Data Percent cell count reference [...] Lymphocyte pct 12.5 % [facility] ([place]) Comment: Interpretive Data Percent cell count reference [...] MD LAB BLOOD ORDERABLES Fi nal Result [facility] ([place] 1 [facility] Department [place] [address] * CBC with auto differential (08/01/2024 5:53 [...] RDW CV 13.9 11.1 - 14.9 % [facility] ([place]) RDW SD 45.9 35.7 - 48.1 fL [facility] ([place]) NRBC abs 0.00 0.00 - 0.01 K/cumm [facility] ([place]) Blood 08/01/2024 5:53 AM CDT 08/01/2024 5:58 AM CDT Krystal Araujo MD LAB BLOOD ORDERABLES Fi nal Result Performing Organization Address City/[facility] Co de Phone Number J[facility]A [facility] ([place]) 1 [facility] [place] [address] * Magnesium (08/01/2024 5:53 AM CDT) Magnesium 2.0 1.4 - 2.5 mg/dL Blood 08/01/2024 5:53 AM CDT 08/01/2024 5:58 AM CDT Krystal Araujo MD LAB BLOOD ORDERABLES Fi nal Result Performing Organization Address [facility] de Phone Number [facility]A [facility] ([place]) 1 [facility] [place] [address] * (ABNORMAL) Comprehensive metabolic panel (08/01/2024 5:53 AM CDT) Sodium 143 135 - 145 mmol/L Potassium, pl 3.5 3.3 - 4.9 mmol/L [facility] ([place]) Chloride 105 97 - 110 mmol/L [facility] ([place] CO2 24 22 - 32 mmol/L [facility] ([place]) Anion gap 14 2 - 15 mmol/L [facility] ([place]) BUN 24 6 - 25 mg/dL [facility] ([place]) Creatinine 1.39(H) 0.80 - 1.30 mg/dL [facility] ([place]) Glucose 130 70 - 199 mg/dL [facility] ([place]) Comment: Interpretive Data Fasting [...] LAB BLOOD ORDERABLES Fi nal Result [facility] ([place]) 1 [facility] [place] [address] * POCT glucose (08/01/2024 1:32 AM CDT) Glucose, POC 137 70 - 199 mg/dL Blood 08/01/2024 1:32 AM CDT 08/01/2024 1:32 AM CDT us Corey Russo MD LAB POCT ORDERABLES - DEVICE Fin al Result [facility] ([place]) 1 [facility] [place] [address] * POCT glucose (07/31/2024 8:49 PM CDT) Glucose, POC 182 70 - 199 mg/dL Blood 07/31/2024 8:49 PM CDT 07/31/2024 8:49 PM CDT Corey Russo MD LAB POCT ORDERABLES - DEVICE Fin al Result JULIETA GUERRERO ([place]) 1 [facility] [place] [address] * POCT glucose (07/31/2024 4:16 PM CDT) Glucose, POC 130 70 - 199 mg/dL Blood 07/31/2024 4:16 PM CDT 07/31/2024 4:16 PM CDT Corey Russo MD LAB POCT ORDERABLES - DEVICE Fin al Result Performing Organization Address City/[facility] Co de Phone Number JULIETA GUERRERO ([place]) 1 [facility] [place] [address] * POCT glucose (07/31/2024 11:47 AM CDT) Glucose, POC 172 70 - 199 mg/dL Blood 07/31/2024 11:4 7 AM CDT 07/31/2024 11:47 AM CDT Corey Russo MD LAB POCT ORDERABLES - DEVICE Fin al Result Performing Organization Address City/[facility]/ZIP Co de Phone Number JULIETA GUERRERO ([place]) [address] [place] [address] [place] [address] * (ABNORMAL) eGFR (07/31/2024 6:59 AM CDT) eGFR 53(L) >=60 mL/min/1. 73 m2 Comment: [...] BLOOD ORDERABLES Fi nal Result [facility] ([place]) 1 [facility] Department [place] [address] * (ABNORMAL) Differential, auto (07/31/2024 6:59 AM [...] BLOOD ORDERABLES Fi nal Result [facility] ([place]) 1 [facility] Department [place] [address] * CBC with auto differential (07/31/2024 6:59 AM CDT) WBC 9.9 3.8 - 9.9 K/cumm Hgb 15.1 13.0 - 17.5 g/dL [facility] ([place]) Hct 46.2 38.9 - 50.3 % [facility] ([place]) Plt 181 150 - 400 K/cumm [facility] ([place]) MPV 10.1 9.1 - 12.3 fL [facility] ([place]) RBC 5.05 4.30 - 5.80 M/cumm [facility] ([place]) MCV 91.5 81.3 - 96.4 fL [facility] ([place]) MCH 29.9 27.1 - 33.3 pg [facility] ([place]) MCHC 32.7 32.3 - 35.7 g/dL [facility] ([place]) RDW CV 13.8 11.1 - 14.9 % [facility] ([place]) RDW SD 46.7 35.7 - 48.1 fL [facility] ([place]) NRBC abs 0.00 0.00 - 0.01 K/cumm [facility] ([place]) Blood 07/31/2024 6:59 AM CDT 07/31/2024 7:38 AM CDT Krystal Araujo MD LAB BLOOD ORDERABLES Fi nal Result [facility] ([place]) 1 [facility] [employer] [place] [address] * Magnesium (07/31/2024 6:59 AM CDT) Pathologist [facility] Magnesium 2.1 1.4 - 2.5 mg/dL Blood 07/31/2024 6:59 AM CDT 07/31/2024 7:38 AM CDT Krystal Araujo MD LAB BLOOD ORDERABLES Fi nal Result [facility] ([place]) 1 [facility] [place] [address] * (ABNORMAL) Comprehensive metabolic panel (07/31/2024 6:59 AM CDT) Sodium 144 135 - 145 mmol/L Potassium, pl 3.3 3.3 - 4.9 mmol/L [facility] ([place]) Chloride 106 97 - 110 mmol/L [facility] ([place]) CO2 25 22 - 32 mmol/L [facility] ([place]) Anion gap 13 2 - 15 mmol/L [facility] ([place]) BUN 24 6 - 25 mg/dL [facility] ([place]) Creatinine 1.40(H) 0.80 - 1.30 mg/dL [facility] ([place]) Glucose 138 70 - [...] nal Result [facility]A [facility] ([place]) 1 [facility] Department [place] [address] * Thyroid Function [place] (07/31/2024 6:57 AM CDT) TSH 3.00 0.30 - 4.20 mcIUnit/mL Blood 07/31/2024 6:57 AM CDT 07/31/2024 9:01 AM CDT us Corey Russo MD LAB BLOOD ORDERABLES Final Resul t JULIETA GUERRERO ([place]) 1 [facility] [place] [address] * POCT glucose (07/31/2024 3:46 AM CDT) Glucose, POC 155 70 - 199 mg/dL Blood 07/31/2024 3:46 AM CDT 07/31/2024 3:46 AM CDT Krystal Araujo MD LAB POCT ORDERABLES - D EVICE Final Result JULIETA GUERRERO ([place]) 1 [facility] [place] [address] * POCT glucose (07/31/2024 12:06 AM CDT) Glucose, POC 154 70 - 199 mg/dL Blood 07/31/2024 12:0 6 AM CDT 07/31/2024 12:06 AM CDT Krystal Araujo MD LAB POCT ORDERABLES - D EVICE Final Result Performing Organization Address City/[facility]/ZIP Co de Phone Number JULIETA GUERRERO ([place]) 1 [facility] [place] [address] * POCT glucose (07/30/2024 9:50 PM CDT) Glucose, POC 180 70 - 199 mg/dL Blood 07/30/2024 9:50 PM CDT 07/30/2024 9:50 PM CDT Krystal Araujo MD LAB POCT ORDERABLES - D EVICE Final Result JULIETA GUERRERO ([place]) 1 [facility] [place] [address] * (ABNORMAL) Troponin T high-sensitivity 6-hour (07/30/2024 7:46 PM CDT) Trop T hs 33(H) <=22 ng/L Comment: Interpretive Data For further hscTnT resources including the diagnostic algorithm and an aid in interpretation, copy and paste this link: https://nrl.testcatalog.org/show/hsTrop Current Interpretive Data last revised 2020. Trop T hs delta -2 ng/L [facility] ([place]) Trop T hs interp Insignificant [facility] ([place]) Blood 07/30/2024 7:46 PM CDT 07/30/2024 7:48 PM CDT us Leelee RIZVI LAB BLOOD ORDERABLES Holly l Result [facility] ([place]) 1 [facility] [place] [address] * Sepsis Lactate w/ Reflex (07/30/2024 7:46 PM CDT) [facility] Sepsis Lactate 1.6 0.7 - 2.0 mmol/L Blood 07/30/2024 7:46 PM CDT 07/30/2024 7:48 PM CDT us Funmilayo RIZVI LAB BLOOD ORDERABLES Final Resu lt [facility] ([place]) 1 [facility] [place] [address] * POCT glucose (07/30/2024 6:59 PM CDT) [facility] Glucose, POC 128 70 - 199 mg/dL Blood 07/30/2024 6:59 PM CDT 07/30/2024 6:59 PM CDT us Notinfile Unknown LAB POCT ORDERABLES - DEVICE F inal Result [facility] ([place]) 1 [facility] [place] [address] * (ABNORMAL) Troponin T high-sensitivity 4-hour (07/30/2024 [...] ORDERABLES Holly l Result Performing Organization Address [facility] Co de Phone Number JULIETA GUERRERO ([place]) [address] [place] [address] [place] [address] * (ABNORMAL) Troponin T high-sensitivity 2-hour (07/30/2024 4:31 PM CDT) Trop T hs 36(H) <=22 ng/L Comment: Interpretive Data For further hscTnT resources including the diagnostic algorithm and an aid in interpretation, copy and paste this link: https://nrl.testcatYapTime.org/show/hsTrop Current Interpretive Data last revised 2020. Trop T hs delta 1 ng/L [facility] ([place]) Trop T hs interp Insignificant [facility] ([place]) Blood 07/30/2024 4:31 PM CDT 07/30/2024 4:35 PM CDT Leelee RIZVI LAB BLOOD ORDERABLES Ohlly l Result Performing Organization Address City/[facility]/ZIP Co de Phone Number JULIETA GUERRERO ([place]) 1 [facility] [place] [address] * (ABNORMAL) Sepsis Lactate w/ Reflex (07/30/2024 4:31 PM CDT) Sepsis Lactate 2.6(H) 0.7 - 2.0 mmol/L Blood 07/30/2024 4:31 PM CDT 07/30/2024 4:35 PM CDT us Funmilayo RIZVI LAB BLOOD ORDERABLES Final Resu lt JULIETA GUERRERO ([place]) 1 [facility] Department [place] [address] * CT Lumbar Spine WO Contrast (07/30/2024 [...] disc bulge and facet arthrosis results in arbr-kz-hxonvibi bilateral neural foraminal narrowing. No significant spinal canal narrowing. L4/L5: Concentric disc bulge, ligamentum flavum thickening, and facet arthrosis results in moderate left and mild right neural foraminal narrowing. Mild spinal canal narrowing. L5/S1: Concentric disc bulge, ligamentum flavum thickening, and facet arthrosis results in severe left and ghxdmeaq-nl-nngflz right neural foraminal narrowing. Mild spinal canal [...] L5-S1 where there is severe left and czeixcsb-ig-ttniyo right neural foraminal narrowing. Incidental and chronic findings including osteoporosis and diffuse idiopathic skeletal hyperostosis. THIS IS AN ELECTRONICALLY VERIFIED FINAL REPORT 07/30/2024 5:01 PM - Electronically signed by Benjie Sargent M.D. NS: NS Report ID: [id number] Reading Location: [id number] Procedure Note Benjie Sargent MD - 07/30/2024 [...] Concentric disc bulge and facet arthrosis results eganyn-ud-qrmlgamt bilateral neural foraminal narrowing. No significant spinal canalnarrowing. L4/L5: Concentric disc bulge, ligamentum flavum thickening, and facet arthrosis results in moderate left and mild right neural foraminalnarrowing. Mild spinal canal narrowing. L5/S1: Concentric disc bulge, ligamentum flavum thickening, and facet arthrosis results in severe left and suqzweck-kd-cvstym right neuralforaminal narrowing. Mild spinal canal narrowing. [...] atL5-S1 where there is severe left and dymwkxea-nz-ipkylr right neural foraminal narrowing. Incidental and chronic findings including osteoporosis and diffuseidiopathic skeletal hyperostosis. THIS IS AN ELECTRONICALLY VERIFIED FINAL REPORT 07/30/2024 5:01 PM - Electronically signed by Benjie Sargent M.D. NS: NS Report ID: [id number] Reading Location: [place] [address] PROCEDURES Final R [...] Benjie Sargent M.D. NS: NS Report ID: [id number] Reading Location: [place] [address] Procedure Note Benjie Sargent MD - 07/30/2024 [...] Benjie Sargent M.D. NS: NS Report ID: [id number] Reading Location: [place] [address] PROCEDURES Final R esult * Influenza A/B, RSV, and COVID-19 PCR Nasopharyngeal (07/30/2024 3:52 PM CDT) COVID-19 RNA Negative Negative Influenza A RNA Negative Negative [facility] ([place]) Influenza B RNA Negative Negative [facility] ([place]) RSV RNA Negative Negative [facility] ([place]) Comment: Interpretive data: Testing performed by [facility]. This test is performed using the [employer] Xpert Xpress CoV-2/Flu/RSV plus assay. This is a multiplex, real- time reverse transcriptase PCR assay intended for the qualitative detection of nucleic acid from SARS-CoV-2, influenza A, influenza B, and respiratory syncytial virus. This assay has been cleared by the [place] Food and Drug administration. The performance characteristics have been verified by the [facility]. Results must be considered in the clinical context, and a negative result does not rule out infection. Interpretive Data last revised 2023 Nasopharyngeal 07/30/2024 3: 52 PM CDT 07/30/2024 3:56 PM CDT Narrative [facility] ([place]) - 07/30/2024 4:37 PM CDT Is the Patient experiencing symptoms consistent with COVID?->Yes us Leelee RIZVI LAB MICROBIOLOGY - GENERA L ORDERABLES Final Result [facility] ([place]) 1 [facility] Department [place] [address] * (ABNORMAL) Urinalysis reflex to microscopic and culture Urine (07/30/2024 3:06 PM CDT) Color, ur Yellow Yellow Clarity, ur Clear Clear [facility] ([place]) Specific [...] tendency for uric acid stone formation. Source: [facility] Current Interpretive Data was last revised on 2017 Protein, ur ql Negative Negative [facility] ([place]) Glucose, [...] not met. [facility] ([place]) Urine 07/30/2024 3:06 PM CDT 07/30/2024 3:09 PM CDT us Nikolas Doty MD LAB MICROBIOLOGY - GENERAL ORD ERABLES Final Result JULIETA GUERRERO ([place]) 1 [facility] Department [place] [address] * (ABNORMAL) Sepsis Lactate w/ Reflex (07/30/2024 1:57 PM CDT) Sepsis Lactate 3.3(H) 0.7 - 2.0 mmol/L Blood 07/30/2024 1:57 PM CDT 07/30/2024 2:01 PM CDT us Funmilayo RIZVI LAB BLOOD ORDERABLES Final Resu lt JULIETA GUERRERO ([place]) 1 [facility] [place] [address] * (ABNORMAL) eGFR (07/30/2024 1:57 PM CDT) [...] BLOOD ORDERABLES Final Res ult JULIETA GUERRERO ([place]) 1 [facility] Department [place] [address] * (ABNORMAL) Differential, auto (07/30/2024 1:57 PM CDT) Neutrophil abs 8.3(H) 1.5 - 6.5 K/cumm Imm gran abs 0.2(H) 0.0 - 0.1 K/cumm [facility] ([place]) Lymphocyte abs 1.2 0.8 - 3.3 K/cumm [facility] ([place]) Monocyte abs 0.7 0.2 - 0.8 K/cumm [facility] ([place]) Eosinophil abs 0.1 0.0 - 0.5 K/cumm [facility] ([place]) Basophil abs 0.1 0.0 - 0.1 K/cumm [facility] ([place]) Neutrophil pct 79.5 % [facility] ([place]) Comment: Interpretive Data Percent cell count reference ranges are not reported, since discordance with absolute values may lead to misinterpretation of CBC data. Current Interpretive Data was last revised on 2017. Imm gran pct 1.6 % [facility] ([place]) Comment: Interpretive Data Percent cell count reference ranges are not reported, since discordance with absolute values may lead to misinterpretation of CBC data. Current Interpretive Data was last revised on 2017. Lymphocyte pct 11.5 % [facility] ([place]) Comment: Interpretive Data Percent cell count reference ranges are not reported, since discordance with absolute values may lead to misinterpretation of CBC data. Current Interpretive Data was last revised on 2017. Monocyte pct 6.3 % [facility] ([place]) Comment: Interpretive Data Percent cell count reference ranges are not reported, since discordance with absolute values may lead to misinterpretation of CBC data. Current Interpretive Data was last revised on 2017. Eosinophil pct 0.6 % [facility] ([place]) Comment: Interpretive Data Percent cell count reference [...] 1:57 PM CDT 07/30/2024 2:01 PM CDT Nikolas Doty MD LAB BLOOD ORDERABLES Final Res ult Performing Organization Address City/State/[facility] Co de Phone Number [facility] ([place]) 1 [facility] Department [place] [address] * (ABNORMAL) CBC with auto differential (07/30/2024 [...] 1:57 PM CDT 07/30/2024 2:01 PM CDT Nikolas Doty MD LAB BLOOD ORDERABLES Final Res ult JULIETA GUERRERO ([place]) 1 [facility] Department [place] [address] * (ABNORMAL) Comprehensive metabolic panel (07/30/2024 1:57 [...] 15 7 - 55 Units/L [facility] ([place]) AST 14 10 - 50 Units/L [facility] ([place]) Blood 07/30/2024 1:57 PM CDT 07/30/2024 2:01 PM CDT Nikolas Doty MD LAB BLOOD ORDERABLES Final Res ult Performing Organization Address City/[facility]/ZIP Co de Phone Number JULIETA GUERRERO [place]) 1 [facility] Department [place] [address] * (ABNORMAL) Troponin T high-sensitivity series (baseline, 2hr, 4hr, 6hr) (07/30/2024 1:56 PM CDT) Trop T hs 35(H) <=22 ng/L Comment: Interpretive Data For further hscTnT resources including the diagnostic algorithm and an aid in interpretation, copy and paste this link: https://nrl.testcatalog.org/show/hsTrop Current Interpretive Data last revised 2020. Blood 07/30/2024 1:56 PM CDT 07/30/2024 3:52 PM CDT Leelee RIZVI LAB BLOOD ORDERABLES Holly l Result Performing Organization Address [facility] Co de Phone Number [facility] ([place]) 1 [facility] [place] [address] * XR Chest 1 Vw Portable (07/30/2024 [...] Jim Garcia M.D. AM: AM Report ID: [id number] Reading Location: [id number] Procedure Note Jim Garcia MD - 07/30/2024 [...] Jim Garcia M.D. AM: AM Report ID: [id number] Reading Location: [id number] Funmilayo RIZVI IM XR PROCEDURES Final Result * CT Hip Left WO Contrast (06/12/2024 4:25 PM REFRIGERATOR TESTER) Anatomical Region Laterality Modality Lower Extremities Left Computed Tomog katherin 06/12/2024 4:36 PM REFRIGERATOR TESTER Narrative 06/12/2024 5:00 PM REFRIGERATOR TESTER EXAM DESCRIPTION: CT HIP LEFT WO CONTRAST [...] signed by Gerard SAMS: FLAQUITA Report ID: [id number] Reading Location: [place] [address] Procedure Note Gerard Armstrong MD - 06/12/2024 [...] signed by Gerard SAMS: FLAQUITA Report ID: [id number] Reading Location: [place] [address] Ovi Villalobos MD IMG CT PROCEDURES Final Resu lt * Influenza A/B, RSV, and COVID-19 PCR Nasopharyngeal (06/12/2024 3:30 PM REFRIGERATOR TESTER) COVID-19 RNA Negative Negative Influenza A RNA Negative Negative [facility] Influenza B RNA Negative Negative [facility] ([place]) RSV RNA Negative Negative [facility] ([place]) Comment: Interpretive data: Testing performed by [facility]. This test is performed using the [employer] Xpert Xpress CoV-2/Flu/RSV plus assay. This is a multiplex, real- time reverse transcriptase PCR assay intended for the qualitative detection of nucleic acid from SARS-CoV-2, influenza A, influenza B, and respiratory syncytial virus. This assay has been cleared by the [place] Food and Drug administration. The performance characteristics have been verified by the [facility]. Results must be considered in the clinical context, and a negative result does not rule out infection. Interpretive Data last revised 2023 Nasopharyngeal 06/12/2024 3: 30 PM REFRIGERATOR TESTER 06/12/2024 3:47 PM REFRIGERATOR TESTER Narrative [facility] ([place]) - 06/12/2024 4:33 PM REFRIGERATOR TESTER Is the Patient experiencing symptoms consistent with COVID?->Unknown Ovi Villalobos MD LAB MICROBIOLOGY - GENERAL O RDERABLES Final Result [facility] ([place]) 1 [facility] Department [place] [address] * (ABNORMAL) Urinalysis reflex to microscopic and culture Urine (06/12/2024 3:30 PM REFRIGERATOR TESTER) Color, ur Yellow Yellow Clarity, ur Clear Clear JULIETA Rodriguez ([place]) Specific gravity, ur 1.021 1.003 - 1.030 [facility] ([place]) pH, urine 6.0 [facility] ([place]) Comment: Interpretive Data U rine pH is affected by diet, medications, systemic acid-base disturbances, and renal tubular function. pH may affect urinary stone formation. For example, urine pH below 6.0 may help reduce the tendency for calcium phosphate stones and pH greater than 6.0 may reduce the tendency for uric acid stone formation. Source: [facility] [employer] Current Interpretive Data was last revised on [...] GUERRERO ([place]) Urine 06/12/2024 3:30 PM REFRIGERATOR TESTER 06/12/2024 3:46 PM REFRIGERATOR TESTER Ovi Villalobos MD LAB MICROBIOLOGY - GENERAL O RDERABLES Final Result Performing Organization Address City/[facility] Co de Phone Number JULIETA GUERRERO ([place]) 1 [facility] [place], [place] [id number] * Urinalysis, microscopic only (06/12/2024 3:30 PM REFRIGERATOR TESTER) WBC, ur 0-5 0 - 5 /HPF RBC, ur 0-2 0 - 2 /HPF [facility] ([place]) Epithelial cells, squamous, ur 1-5 0 - 5 /HPF [facility] ([place]) Culture Reflex Comment Reflex conditions for urine culture (WBC >10) not met. JULIETA [facility] ([place]) Urine 06/12/2024 3:30 PM REFRIGERATOR TESTER 06/12/2024 3:46 PM REFRIGERATOR TESTER Ovi Villalobos MD LAB URINE ORDERABLES Final R esult Performing Organization Address City/[facility]/ZIP Co de Phone Number JULIETA GUERRERO ([place]) 1 [facility] Department [place] [address] * ECG 12 lead (06/12/2024 3:23 PM REFRIGERATOR TESTER) 06/12/2024 3:23 PM REFRIGERATOR TESTER Narrative [facility] - 06/12/2024 5:06 PM REFRIGERATOR TESTER Vent Rate: 61 bpm RR Interval: 982 msec KS Interval: 0 msec QRS Duration: 109 msec QT Interval: 458 msec QTC Interval: 460 msec P-R-T Gunter: [id number] - -24 - 119 degrees IMPRESSION: SUPRAVENTRICULAR RHYTHM, probably sinus BORDERLINE LEFT AXIS DEVIATION [QRS AXIS < -20] LEFT VENTRICULAR HYPERTROPHY AND ST-T CHANGE [VOLTAGE CRITERIA PLUS ST/T ABNORMALITY] ABNORMAL ECG Recommend repeat EKG with stable baseline for accurate rhythm assessment Electronically Signed By: Juarez Thornton MD us Ovi Villalobos MD ECG ORDERABLES Final Result [facility] * XR Knee Left 3 Views (06/12/2024 1:01 PM REFRIGERATOR TESTER) Anatomical Region Laterality Modality Lower Extremities, Knee Left Computed Radiography 06/12/2024 1:23 PM REFRIGERATOR TESTER Narrative 06/12/2024 1:27 PM REFRIGERATOR TESTER EXAM DESCRIPTION: XR KNEE LEFT 3 VIEWS [...] Justin Yip M.D. CH: CLIVE Report ID: [id number] Reading Location: [id number] Procedure Note Justin Yip Jr., MD - [...] by Justin Yip M.D. CH: Report ID: [id number] Reading Location: [id number] Yaz Escobar MD IMG XR PROCEDURES F inal Result * XR Hip Left 2 or 3 Views (06/12/2024 1:01 PM REFRIGERATOR TESTER) Anatomical Region Laterality Modality Lower Extremities, Hip, Pelvis Left C omputed Radiography 06/12/2024 1:27 PM REFRIGERATOR TESTER Narrative 06/12/2024 1:28 PM REFRIGERATOR TESTER EXAM DESCRIPTION: XR HIP LEFT 2 OR [...] by Justin Yip M.D. CH: Report ID: [id number] Reading Location: [id number] Procedure Note Justin Yip Jr., MD - 06/12/2024 EXAM DESCRIPTION: XR HIP LEFT 2 OR 3 VIEWS REASON FOR STUDY: Pt to ED via [email or web address]. Per EMS Pt tripped yesterday while [...] by Justin Yip M.D. CH: Report ID: [id number] Reading Location: [id number] us Yaz Escobar MD IMG XR PROCEDURES F inal Result * POCT glucose (06/12/2024 12:46 PM REFRIGERATOR TESTER) [facility] Signature Glucose, POC 170 70 - 199 mg/dL Blood 06/12/2024 12:4 6 PM REFRIGERATOR TESTER 06/12/2024 12:46 PM REFRIGERATOR TESTER us Notinfile Unknown LAB POCT ORDERABLES - DEVICE F inal Result [facility] ([place]) 1 [facility] Department of Laboratories [place], [place] [id number] * (ABNORMAL) Hemoglobin A1c (08/30/2023 2:23 AM CDT) Hgb A1C 6.3(H) 4.0 - 5.6 % Estimated Average Glucose 134 mg/dL JULIETA GUERRERO ([place]) Comment: The ADA recommends reporting an estimated Average Glucose (eAG) with all Hemoglobin A1c results using the equation derived from a study of 507 normal and diabetic adults. Minority populations were underrepresented and children were not included. (Diabetes Care 31:1808-2899, 2008). The eAG is not equivalent to a fasting glucose. Blood 08/30/2023 2:23 AM CDT 08/30/2023 12:50 PM CDT us Destiny Devi NP LAB BLOOD ORDERABLES Final R esult JULIETA GUERRERO ([place]) 1 [facility] Department [place] [address] * (ABNORMAL) Lipid panel (08/28/2023 8:27 PM [...] 8:27 PM CDT 08/28/2023 10:13 PM CDT Jesus Payan MD LAB BLOOD ORDERABLES Final Re sult Performing Organization Address [facility]/ZIP Co de Phone Number JULIETA GUERRERO ([place]) [address] [place] [address] * PSA screen (10/28/2021 2:47 PM CDT) PSA-Total 3.15 <=5.40 ng/mL [facility] ([place]) Comment: Interpretive Data AGE [...] data last revised 21. Testing performed by: [facility], [address] [place] [address]., [id number] Blood 10/28/2021 2:47 PM CDT 10/28/2021 7:50 PM CDT Sohail Gould MD LAB BLOOD ORDERABLES Holly l Result Performing Organization Address City/[facility]/ZIP Co de Phone Number JULIETA GUERRERO ([place]) [address] [place] [address] * (ABNORMAL) Albumin Creatinine Ratio, Urine (10/28/2021 2:47 PM CDT) Albumin Ur 713.6 mg/L [facility] ([place]) Comment: Interpretive Data No reference range established. Current interpretive data was last revised 2018. Testing performed by: [address] [address] Creatinine Ur 343.1 mg/dL [facility] ([place]) Comment: Interpretive Data No reference range established. Current interpretive data was last revised 2018. Testing performed by: [facility], [address] [place] [address]., [id number] Albumin Creatinine Ratio, Ur 208(H) 1 - 29 mg/g JULIETA GUERRERO ([place]) Comment:Testing performed by : [facility], [address] [place] [address]., [id number] Urine 10/28/2021 2:47 PM CDT 10/28/2021 9:10 PM CDT us Sohail Gould MD LAB URINE ORDERABLES Holly l Result JULIETA GUERRERO ([place]) 1 [facility] Department [place] [address] * Stool DNA - Cologuard (11/30/2020) Scribed Stool DNA - Cologuard Negative EXTERNAL LAB Stool Historical Provider LAB BODY FLUIDS AND STOOL S ORDERABLES Final Result EXTERNAL LAB from Last 3 Months or Most Recently Relevant to Health Maintenance Insurance [facility] MEDICARE ADVANTAGE [facility] Address: [address] [address] [place] [address] IDPA [facility] MEDICARE ADVANTAGE [facility] Address: [address] [address] [place] [address] [facility] MEDICARE ADVANTAGE [facility] Address: [address] [address] [place] [address] [facility] MDCR HMO REF [facility] Address: [address] [address] [place] [address] [employer] Advance Directives For more information, please contact: [phone] * Full Code (Latest Code Status on [...] 8:46 PM 08/29/2023 4:46 PM Care Teams Hog Dropper Relationship Specialty Start Date End Date Melchor Wooadrd MD PCP - General Family Practice 07/30/22 Nicolas Jung MD Surgeon Orthopedic Surgery 08/05/21 Louie Lomeli MD Consulting Physician Cardiology 12/23/21 Jairo Sparrow MD [address] [place] [address] DR MAO [address] [place] [id number] Consulting Physician Neurology 12/14/22
--- NOTE | 2024-09-06 10:50 | ED.FALL ---
HPI - Fall General Chief Complaint: Fall Stated Complaint: Fall Injury/Rib Pain/Head/Left Hand Time Seen by Provider: 09/06/24 10:51 Source: patient, RN notes reviewed and old records reviewed Mode of arrival: ambulatory ( with cane, placed in wheelchair at registration) Limitations: no limitations History of Present Illness HPI Narrative: 74 year old male presents to express are with complaints of experiencing a fall yesterday going into [employer] around 1100 yesterday. Patient reports that he fell when he tripped on sidewalk going into the building and fell on his left side with his hand at this left rib area with pain to the rib area and small blood blister type of lesion noted to outer hand by 5th finger. Patient reports that his neck as been popping too and wants an x-ray. Patient reports that he did hit the left side of his head but doesn't think it was hard. States that he has had dizziness problems for over 2 years and had recent MRI of head and is suppose to see somebody at [place] for follow up. Patient is on blood thinner of Plavix and instructed he should go to ED since hit his head and reports that he is not going over there and sit for 8 hours, signed refusal. Patient reports no acute headache and did not have any LOC at time of fall. no bruising noted on skull. MD complaint: fall Onset (ago): day(s) (fell yesterday ) Place fall occurred: other (going into [employer]) Loss of consciousness: none Symptoms prior to fall: other (Patient has history of dizziness for past 2 years) Location of injury: chest (left rib area,left hand and states hit left side of head) Related Data Home Medications ?Medication ?Instructions ?Recorded ?Confirmed ?Last Taken ?Type aspirin 81 mg chewable tablet 81 mg PO DAILY 07/28/22 07/19/24 Unknown History (Leroy Chewable Low Dose Aspirin) clopidogrel 75 mg tablet (Plavix) 75 mg PO DAILY 11/23/23 07/19/24 Unknown History ezetimibe 10 mg tablet (Zetia) 10 mg PO DAILY 11/23/23 07/19/24 Unknown History isosorbide mononitrate 30 mg 30 mg PO DAILY 11/23/23 07/19/24 Unknown History tablet,extended release 24 hr Allergies Allergy/AdvReac Type Severity Reaction Status Date / Time ceftriaxone (From Rocephin) Allergy Unknown Nausea Verified 09/06/24 10:52 Fqdmduh-LNC-EhE Reductase Allergy Unknown Unknown Verified 09/06/24 10:52 Inhibitor Review of Systems Review of Systems: CONSTITUTIONAL: Denies fever, chills, or sweats. EYES: Denies visual changes, redness, or discharge. ENT: Denies rhinorrhea, congestion, sore throat, or otalgia. CARDIOVASCULAR: Denies chest pain, palpitations, pedal edema noted bilaterally,.reports left anterior lateral rib pain from fall RESPIRATORY: Denies cough or dyspnea. GASTROINTESTINAL: Denies abdominal pain, nausea, vomiting, or diarrhea. GENITOURINARY: Denies dysuria or hematuria. SKIN: Denies rash or itching. MUSCULOSKELETAL: Some chronic back pain, joint pain, or myalgia, reports that his neck has been popping wants x-ray done on that too, states not related to his fall, has blood blister type of lesion to left hand along 5th metatarsal area, has full mobility of left hand, denies any acute pain to his left hand NEUROLOGIC: Denies headache, numbness, or weakness, on going dizziness for over 2 years does take Antivert PSYCHIATRIC: Denies anxiety or depression. All systems reviewed & are unremarkable except as noted in HPI and below PMFSH Past Medical History Medical History Trochanteric bursitis, left hip Dizziness, nonspecific Lumbar radiculopathy Trochanteric bursitis, right hip Lumbar spine pain Left hip pain Peripheral neuropathy Plantar fascial fibromatosis of left foot Hypertension Thyroid disorder Dry skin dermatitis PVD (peripheral vascular disease) Lower extremity edema Sleep apnea Polyneuropathy Type 2 diabetes mellitus Surgical History Surgical History Hx of tonsillectomy History of knee surgery History of coronary artery stent placement Family History Family History Father , natural causes. Heart disease Hypertension Mother No problems noted. 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 There is no relevant family history pertinent to the presenting complaint Exam Narrative: GENERAL: chronic ill -appearing, well-nourished, obese and in no acute distress. HEAD: Normocephalic, atraumatic.reports did hit left side of head when fell denies any LOC, reports no headache or any visual changes or any nauses EYES: PERRLA and EOMI. no nystagmus ENT: Nares clear, no rhinorrhea or epistaxis. Mucous membranes moist.TM's normal throat pink with no swelling NECK: Supple. able to move in all direction states popping sensation to neck that has been ongoing not new CHEST: Clear to auscultation. No respiratory distress SAO2 96% on room air no tachypnea. HEART: Regular rate and rhythm. No murmur heard. Normal peripheral pulses. ABDOMEN: Soft, nontender, nondistended, normal active bowel sounds. EXTREMITIES: Normal range of motion. some pedal edema. SKIN: Warm, dry, no rash. NEURO: No focal deficits. Alert and oriented x3. reports on going dizziness, able to move all extremities on own power without drift, cranial nerves intact without deficit. Course Course Emergency Course: Patient is aware of diagnosis, understands and agrees to treatment plan.? Anticipatory guidance given.? Patient agrees to follow-up as directed and is aware of reasons to seek care at the emergency department. Portions of this record may have been created with voice recognition software Level of Care: Express Care Visit Vital Signs Vital signs: Vital Signs Temperature 36.6 C 09/06/24 10:44 Pulse Rate 70 09/06/24 10:44 Respiratory Rate 20 09/06/24 10:44 Blood Pressure 134/74 09/06/24 10:44 Pulse Oximetry 96 09/06/24 10:44 Oxygen Delivery Room Air 09/06/24 10:44 Temperature 36.6 C 09/06/24 10:44 Pulse Rate 70 09/06/24 10:44 Respiratory Rate 20 09/06/24 10:44 Blood Pressure 134/74 09/06/24 10:44 Pulse Oximetry 96 09/06/24 10:44 Oxygen Delivery Room Air 09/06/24 10:44 Reviewed MDM - Fall MDM Narrative Medical decision making narrative: Instructed patient that since he hit his head and he is on Plavix he should go to ER for further evaluation patient refused and signed AMA paper in regards to refusal to go to ED, Anticipatory guidance given and strict instruction of symptoms to watch for in regards to head injury. Differential Diagnosis Differential diagnosis: Likely other (fall with no LOC, rib contusion left chest, hit head on Plavix, chronic dizziness, refuses to go to hospital) Medical Records Attestation: I reviewed the patient's medical records. Imaging Data Attestation: I personally reviewed and interpreted this imaging study as follows: My impression: cervical spine: areas of DISH, mild facet arthropathy chest and left ribs: no definite rib fractures, no acute cardiopulmonary disease Radiologist's impression: [address] [place] [address] XRay Report Signed Patient: Jairo Olguin : 1950 MR#: [id number] Age: 74 Acct:[id number] Loc: [facility] ADM Date: 09/06/24Attending Dr: Ordering Physician: Carly Bennett APRN Date of Service: 09/06/24 Procedure(s): XR cervical spine 2-3V Accession Number(s): [id number] cc: Carly Bennett APRN; Vciki Salmeron APRN~ Cervical Spine: AP, lateral, open-mouth views Clinical History: Pain Findings: The normal lordotic curve is maintained. The vertebral bodies and posterior elements appear intact. The intervertebral disc spaces are well maintained. There are large anterior osteophytes from C3 to C4 and from C5 to C6. Mild facet arthropathy present. Pre-vertebral soft tissues are unremarkable. Impression: Areas of DISH, as above. Mild facet arthropathy. Reviewed, dictated and finalized at location M. Please be advised this is a medical document. It is intended for yuuy-tg-lphu communication. It is written in medical language and may contain unfamiliar abbreviations or verbiage. Medical documents are intended to carry relevant information, facts as evident, and the clinical opinion of the practitioner at the time of the encounter. This report may have been done utilizing a voice recognition system. Attempts have been made to correct errors. However, there may be uncorrected grammatical, spelling, and recognition errors present. The file time of this note does not necessarily represent the time of service. Dictated By: Angel Wild MD 09/06/24 1213 Signed By: <Electronically signed by Angel Wild MD in OV> [address] [place] [address] XRay Report Signed Patient: Jairo Olguin : 1950 MR#: [id number] Age: 74 Acct:[id number] Loc: [facility] ADM Date: 09/06/24Attending Dr: Ordering Physician: Carly Bennett APRN Date of Service: 09/06/24 Procedure(s): XR ribs LT w PA CXR Accession Number(s): [id number] cc: Carly Bennett APRN; Vicki Salmeron APRN~ [id number] Ordering provider: Carly Bennett NP History: 74 years Male with . fell yesterday hit left rib area . Comparison: None. FINDINGS: MEDIASTINUM: The cardiac silhouette is not enlarged. LUNGS: No infiltrates, effusions or pneumothorax. OTHER: No definite fractures seen. No free air under the diaphragm. Degenerative changes of the spine. IMPRESSION: No definite fractures seen. No acute cardiopulmonary pathology. Reviewed, dictated and finalized at location A. Please be advised this is a medical document. It is intended for fhah-ef-jssn communication. It is written in medical language and may contain unfamiliar abbreviations or verbiage. Medical documents are intended to carry relevant information, facts as evident, and the clinical opinion of the practitioner at the time of the encounter. This report may have been done utilizing a voice recognition system. Attempts have been made to correct errors. However, there may be uncorrected grammatical, spelling, and recognition errors present. The file time of this note does not necessarily represent the time of service. Dictated By: Panchito Mckeon MD 09/06/24 1210 Signed By: <Electronically signed by Panchito Mckeon MD in OV> Critical Care Time Critical Care Time Critical Care Time: No Discharge Plan Discharge Clinical Impression: Chronic neck pain, Fall (on)(from) sidewalk curb, initial encounter, Dizziness Contusion of rib on left side Qualifiers: Encounter type: initial encounter Qualified Code(s): S20.212A - Contusion of left front wall of thorax, initial encounter Head injury, closed, without LOC Qualifiers: Encounter type: initial encounter Qualified Code(s): S09.90XA - Unspecified injury of head, initial encounter Patient Disposition: Home Condition: Stable Instructions: Antibiotic Form, Head Injury (ED), Dizziness (ED), Rib Contusion (ED) Additional Instructions: Tylenol for lesser pain If increased dizziness headache changes in vision or any concerns go directly to the emergency room use assistive devices at all times for ambulation follow-up with PCP in 2-3 days may use ice to rib area Follow-up with PCP if further problems or concerns Ice to the area 20-30 minutes 4-6 times a day Elevate above heart If your symptoms persist, change or worsen significantly before you can contact your personal physician then please, without delay, go to the emergency department for further evaluation. Follow-up with PCP in 7-10 days or sooner if needed Follow up with PCP soon in regards to your blood pressure which is elevated above threshold for referral. Blood pressure above 120/80 may indicate pre-hypertension. 134/74 patient refused to go to the emergency room signed AMA paper in regard, patient is on Plavix daily is aware that that can increase chances of intracranial bleed Patient Language: Greek Prescriptions: No Action isosorbide mononitrate 30 mg tablet extended release 24 hr 30 mg PO DAILY clopidogrel [Plavix] 75 mg tablet 75 mg PO DAILY ezetimibe [Zetia] 10 mg tablet 10 mg PO DAILY aspirin [Leroy Chewable Aspirin] 81 mg tablet,chewable 81 mg PO DAILY hydrocodone-acetaminophen 7.5-325 mg tablet 1 tablet PO Q4H PRN (Reason: pain) Qty: 30 0RF meclizine 12.5 mg tablet 12.5 mg PO DAILY PRN (Reason: dizziness) Qty: 30 0RF Gemtesa 75 mg tablet 75 mg PO DAILY Qty: 30 1RF losartan 25 mg tablet See Rx Instructions .ROUTE .COMPLEX Qty: 90 1RF Dose Instruction: TAKE ONE (1) TABLET BY MOUTH EVERY DAY Rx Instructions: TAKE ONE (1) TABLET BY MOUTH EVERY DAY triamcinolone acetonide 0.025 % cream See Rx Instructions .ROUTE .COMPLEX Qty: 80 1RF Dose Instruction: APPLY TO AFFECTED AREA(S) TWICE a DAY Rx Instructions: APPLY TO AFFECTED AREA(S) TWICE a DAY gabapentin 100 mg capsule See Rx Instructions .ROUTE .COMPLEX Qty: 120 3RF Dose Instruction: TAKE ONE (1) CAPSULE BY MOUTH MORNING AND NOON, TAKE TWO (2) BY MOUTH NIGHTLY AT BEDTIME Rx Instructions: TAKE ONE (1) CAPSULE BY MOUTH MORNING AND NOON, TAKE TWO (2) BY MOUTH NIGHTLY AT BEDTIME hydrochlorothiazide 25 mg tablet See Rx Instructions .ROUTE .COMPLEX Qty: 90 0RF Dose Instruction: TAKE ONE (1) TABLET BY MOUTH EVERY DAY Rx Instructions: TAKE ONE (1) TABLET BY MOUTH EVERY DAY metoprolol succinate 50 mg tablet extended release 24 hr See Rx Instructions .ROUTE .COMPLEX Qty: 90 1RF Dose Instruction: TAKE ONE (1) TABLET BY MOUTH DAILY Rx Instructions: TAKE ONE (1) TABLET BY MOUTH DAILY levothyroxine 50 mcg tablet See Rx Instructions .ROUTE .COMPLEX Qty: 90 1RF Dose Instruction: TAKE ONE (1) TABLET BY MOUTH DAILY Rx Instructions: TAKE ONE (1) TABLET BY MOUTH DAILY Jardiance 25 mg tablet See Rx Instructions .ROUTE .COMPLEX Qty: 90 1RF Dose Instruction: TAKE ONE (1) TABLET BY MOUTH DAILY Rx Instructions: TAKE ONE (1) TABLET BY MOUTH DAILY Follow-up/Referrals: Vicki Salmeron APRN [Primary Care Provider] - Time of Disposition: 12:37 Quality [place] Coma Scale Eyes: Open Verbal: Oriented and Alert Motor: Follows Commands Leidy Coma Total Score: 15
--- OUTSIDE RECORDS SUMMARY | 2024-09-06 10:51 | XMS_ITS | Continuity of Care Document ---
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 [address], [address], [place], [place], [address], [place]. tel:[phone] [facility], [address], [place], [place], [address], [place] tel:[phone] SEC Arnoldo ECKERT Professional Complete Exam (chief complaint) Type 2 diab with mild nonp rtnop without mclr edema, r eyeCombined forms of age-related cataract, left eyePresence of intraocular lensDry eye syndrome of bilateral lacrimal glandsXT (exotropia) 3 Vicky OD Kita. [facility] [address], [address], [place], [place], [address], [place]. tel:[phone] Referring Provider: Kita Perry OD L, [facility] [address], [place], [address] . tel:[phone] [facility], [facility] [address], [place], [place], [address], [place] tel:[phone] SEC Arnoldo ECKERT Professional Cataract Evaluation (chief complaint) Pseudophakia of right eyeCombined forms of age-related cataract, left eyeXT (exotropia)Pt osis of both eyelids 0 1 Waqar Pace. [address], [facility] A, [place], [place], [address], [place]. tel:[phone] Referring Provider: Sanjeev Barker, [address] [facility], [place], [address] . tel:[phone] Office/outpa tient Visit, [facility], [facility] [address], [place], [place], [address], [place] tel:[phone] SEC Arnoldo ECKERT Professional WIE (chief complaint) Abrasion of right eyelid, initial encounterEdem a of right upper eyelid Oct-0 0 Waqar Pace. [address], [facility] A, [place], [place], [address], [place]. tel:[phone] Referring Provider: Sanjeev Barker, [address], [place], [address] . tel:[phone] [facility], [address], [place], [place], [address], [place] tel:[phone] SEC Arnoldo ECKERT Professional 1 month s/p PCIOL (chief complaint) Post op visit 0 Juan F Lam. [address] [facility], [address]th [address], [place], [address], [place]. tel:[phone] Referring Provider: Sanjeev Barker, [address], [place], [address] . tel:[phone] Office/outpa tient Visit, Est [facility], [address], [place], [place], [address], [place] tel:[phone] SEC Arnoldo ECKERT Professional WIE (chief complaint) Allergic conjunctiviti s of both eyes 0 Waqar Pace. [address], [address], [place], [place], [address], [place]. tel:[phone] Referring Provider: Sanjeev Barker, [address], [place], [address] . tel:[phone] [facility], [address], [place], [place], [address], [place] tel:[phone] SEC Arnoldo ECKERT Professional 1 day s/p PCIOL (chief complaint) Post op visit 0 Waqar Pace. [address], [address], [place], [place], [address], [place]. tel:[phone] Referring Provider: Sanjeev Barker, [address], [place], [address] . tel:[phone] [facility], [address], [place], [place], [address], [place] tel:[phone] [facility] [place] No Information 0 Annemarie Abeladro. [facility] [address], [address], [place], [place], [address], . tel:[phone] Referring Provider: Sanjeev Barker, [address] [facility] [address], [place], [address] . tel:[phone] [facility], [address] [place], [place] [address] [address], [place], [place], [address], tel:[phone] SEC [place] No Information 0 Lathrop Abelardo. [facility] [address], [address], [place], [place], [address], [place]. tel:[phone] Referring Provider: Sanjeev Barker, [address] [facility] [address], [place], [address] . tel:[phone] [facility], [address] [place] [address] [address], [place], [place], [address], tel:[phone] SEC [place] Professional Cataract evaluation (chief complaint) Post op visitCombined forms of age-related cataract, bilateral 0 Annemarie Abelardo. [facility] [address], [address], [place], [place], [address], [place]. tel:[phone] Referring Provider: Sanjeev Barker, [address] [facility] [address], [place], [address] . tel:[phone] [facility], [facility] [address], [place], [place], [address], [place] tel:[phone] SEC [place] Professional Cataract evaluation (chief complaint) Post op visit 0-201 9 Lathrop Abelardo. [facility] [address], [address], [place], [place], [address], . tel:[phone] Referring Provider: Sanjeev Barker, [address] [facility] [address], [place], [address] . tel:[phone] [facility], [address], [place], [place], [address], [place] tel:[phone] SEC Rebekah Ch[place] 1 wk Pterygium excision po (chief complaint) Post op visit 9 Annemarie Zhou. [facility] [address], [address], [place], [place], [address], [place]. tel:[phone] Referring Provider: Sanjeev Barker, [address] [facility] [address], [place], [address] . tel:[phone] [facility], [address], [place], [place], [address], [place] tel:[phone] SEC [place] Pterygium excision (chief complaint) Post op visit 0 9 Annemarie Zhou. [facility] [address], [address], [place], [place], [address], [place]. tel:[phone] Referring Provider: Sanjeev Barker, [address] [facility] [address], [place], [address] . tel:[phone] [facility], [address], [place], [place], [address], [place] tel:[phone] [facility] [place] No Information 9 Annemarie Zhou. [facility] [address], [address], [place], [place], [address], [place]. tel:[phone] Referring Provider: Sanjeev Barker, [address] [facility] [address], [place], [address] . tel:[phone] Office/outpa tient Visit, Est [facility], [address], [place], [place], [address], [place] tel:[phone] SEC [place] Professional pterygium and cataract (chief complaint) Peripheral pterygium, progressive, left eyeCombined forms of age-related cataract, bilateral Oct- 9 Annemarie Zhou. [address], [address], [place], [place], [address], [place]. tel:[phone] Referring Provider: Sanjeev Barker, [address] [facility] [address], [place], [address] . tel:[phone] [facility], [address], [place], [place], [address], [place] [phone] SEC [place] Professional Complete Exam (chief complaint) Age-related nuclear cataract, bilateralPter ygium of left eyeAllergic conjunctiviti s of both eyes 9 Waqar Pace. [address] [facility], [facility] A, [place], [place], [address], [place]. tel:[phone] Referring Provider: Sanjeev Barker, [address] [facility] [address], [place], [address] . tel:[phone] [facility], [address], [place], [place], [address], [place] [phone] SEC [place] No Information 9 Asha JOSE JUAN Destiny. [address] [facility], [facility] A, [place], [address], . tel:[phone] Family History Family Member Type Diagnosis Age At Onset Problem (finding) Family history of Diabe prakash mellitus Payers Payer name Insurance type Covered democrat ID Authoriza tion(s) AAR Medicare Complete [place] [id number] [place] [id number] Social History Type Description Quantity Date Captured [...]
== END 2024-09-06 12:52 | disposition home or self-care (01) ==
PROVIDERS: Emergency Provider Registered Nurse; PCP Nurse Practitioner Adult Health
DX: G89.29 Other chronic pain (principal); M54.2 Cervicalgia; S20.212A Contusion of left front wall of thorax, initial encounter; W01.0XXA Fall on same level from slipping, tripping and stumbling without subsequent striking against object, initial encounter; S09.90XA Unspecified injury of head, initial encounter; Z79.01 Long term (current) use of anticoagulants; R42 Dizziness and giddiness; I10 Essential (primary) hypertension; E11.42 Type 2 diabetes mellitus with diabetic polyneuropathy; E11.51 Type 2 diabetes mellitus with diabetic peripheral angiopathy without gangrene; Z79.84 Long term (current) use of oral hypoglycemic drugs; E07.9 Disorder of thyroid, unspecified; Z95.5 Presence of coronary angioplasty implant and graft; Z79.82 Long term (current) use of aspirin; Z87.891 Personal history of nicotine dependence
CPT/HCPCS: 71101; 72040; 99214; G0463

== ENCOUNTER 2024-09-12 10:58 | Outpatient (CLI) | payer MEDICARE, SELFPAY ==
--- OUTSIDE RECORDS SUMMARY | 2024-09-12 11:16 | XMS_ITS | Clinical Summary ---
Author Organization [facility] Address [address] [place] [address] Care Team Providers Care Hall Coordinator Name Role Phone Melchor Woodard MD Primary Care Provider [phone] Allergies Active Allergy Reactions Criticality Noted Date Comments Ceftriaxone Nausea and Vomiting Low 09/23/2021 Avrqxdl-Khv-Efi Reductase Inhibitors Other (See Comments) Low 01/26/2018 [...] ZOSTER VACCINE Completed 03/19/2020, 11/2018, 03/27/[address] [place] [id number] Care Teams Hall Coordinator Relationship Specialty Start Date End Date Melchor Woodard MD PCP - General Family Practice 09/28/22
--- OUTSIDE RECORDS SUMMARY | 2024-09-12 11:16 | XMS_ITS | Encounter Summary ---
Author Organization [facility] Address [address] [place] [address] Phone Care Team Providers Care Elementary Summer [employer] Teacher Name Role Phone Mark De Los Santos MD Unavailable Unavailable Rand Tsang MD Unavailable Carlos Moran MD Primary Care Provider [phone] Sohail Gould MD Primary Care Provider [phone] Vicki Salmeron APRN Primary Care Provider [phone] Reason for Visit * Reason Comments Medication Refill Encounter Details Date Type Department Care Team (Late st Contact Info) Description 01/26/2021 Refill [facility] - Primary Care - [place] [address] [place] [address] Carlos Moran MD [address] [place] [address] Medication Refill Social History Tobacco [...] Care Team (Late st Contact Info) Description 09/20/2024 1:00 AM CDT Home Care Visit [address] [address] Tere Paul RN [place] 09/27/2024 1:00 AM CDT Appointment [address] [address] Tere Paul RN [place] documented as of this encounter Visit Diagnoses Not on filedocumented in this encounter Additional Health Concerns Assessment Noted Time PHQ-9 Depression Total Score: 0 07/13/19 20 10:00 AM CDT documented as of this encounter Care Teams [employer] Teacher Relationship Specialty Start Date End Date Carlos Moran MD [address] [place] [address] PCP - General Internal Medicine 10/07/20 08/19/21 Sohail Gould [place] [facility] [address] PCP - General Family Medicine 08/20/21 08/15/24 Vicki Salmeron APRN [address] [place] [address] [place] [address] PCP - General Advanced Practice Nurse 08/16/24 Mark De Los Santos MD Consulting Physician Urology 09/05/15 Rand Tsang MD Consulting Physician Dermatopathology 01/16/18 documented as of this encounter
--- OUTSIDE RECORDS SUMMARY | 2024-09-12 11:16 | XMS_ITS | Encounter Summary ---
Author Organization [facility] Address [address] [place] [address] Care Team Providers Care It Infrastructure Consultant Name Role Phone Nicolas Jung MD Unavailable [phone] Louie Lomeli MD Unavailable [phone] Melchor Woodard MD Primary Care Provider [phone] Jairo Sparrow MD Unavailable [phone] Maria Eugenia Navarrete [facility] Unavailable [phone] Encounter Details Date Type Department Care Team (Late st Contact Info) Description 01/24/2023 Orders Only [facility] [address] [address] [address] [place] [address] Miah Rodrigues MA Pre-op testing [...] week 12/24/2021 How often do you attend [facility] or anabaptist services? Never 12/24/2021 Do you belong to any clubs o r organizations such as yarsani groups, unions, fraternal or athletic groups, or [...] place to sleep or slept in a halfway (including now)? 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 Gender Identity Not on file [...] COVID: Suspected 06/12/2024 06/12/2024 06/12/2024 4:34 PM BLASTING MACHINE OPERATOR COVID: Suspected 07/30/2024 07/30/2024 07/30/2024 4:38 PM CDT documented as of this encounter Care Teams It Infrastructure Consultant Relationship Specialty Start Date End Date Melchor Woodard MD PCP - General Family Practice 07/30/22 Nicolas Jung MD Surgeon Orthopedic Surgery 08/05/21 Louie Lomeli MD Consulting Physician Cardiology 12/23/21 Jairo Sparrow MD [address] [place] [address] [place] [address] Consulting Physician Neurology 12/14/22 Maria Eugenia Navarrete, [address] [place] [address] Pharmacist Pharmacy 03/12/24 03/12/24 documented as of this encounter
--- OUTSIDE RECORDS SUMMARY | 2024-09-12 11:16 | XMS_ITS | Continuity of Care Document ---
Author Organization [facility] Address [address] [facility] [address] [place] [address] Phone Care Team Providers Care Inseam Leveler Name Role Phone Vicky JOSE JUAN Kita [...] Diagnoses Date Provider Providers Copied on Encounter [facility], [address], [place], [place], [address], [place] tel:[phone] SEC Arnoldo ECKERT Professional No Information 3 Vicky JOSE JUAN Kita. [address], [address], [place], [place], [address], [place]. tel:[phone] [facility], [address], [place], [place], [address], [place] tel:[phone] SEC Arnoldo ECKERT Professional Complete Exam (chief complaint) Type 2 diab with mild nonp rtnop without mclr edema, r eyeCombined forms of age-related cataract, left eyePresence of intraocular lensDry eye syndrome of bilateral lacrimal glandsXT (exotropia) 3 Vicky OD Kita. [facility] [employer], [address], [place], [place], [address], [place]. tel:[phone] Referring Provider: Kita Perry OD L, [facility] [employer] [address], [place], [address] . tel:[phone] [facility], [facility] [address], [place], [place], [address], [place] tel:[phone] SEC Arnoldo ECKERT Professional Cataract Evaluation (chief complaint) Pseudophakia of right eyeCombined forms of age-related cataract, left eyeXT (exotropia)Pt osis of both eyelids 0 1 Waqar Pace. [address], [facility] [address], [place], [place], [address], [place]. tel:[phone] Referring Provider: Sanjeev Barker, [address] [facility] [address], [place], [address] . tel:[phone] Office/outpa tient Visit, Est [facility], [facility] [address], [place], [place], [address], [place] tel:[phone] SEC Arnoldo ECKERT Professional WIE (chief complaint) Abrasion of right eyelid, initial encounterEdem a of right upper eyelid Oct-0 0 Waqar Pace. [address], [facility] [address], [place], [place], [address], [place]. tel:[phone] Referring Provider: Sanjeev Barker, [address], [place], [address] . tel:[phone] [facility] [place], [address], [place], [place], [address], [place] tel:[phone] SEC Arnoldo ECKERT Professional 1 month s/p PCIOL (chief complaint) Post op visit 0 Juan F Lam. [address] [facility], 6th Floor, [place], [address], [place]. tel:[phone] Referring Provider: Sanjeev Barker, [address], [place], [address] . tel:[phone] Office/outpa tient Visit, Est [facility], [address], [place], [place], [address], [place] tel:[phone] SEC Arnoldo ECKERT Professional WIE (chief complaint) Allergic conjunctiviti s of both eyes 0 Waqar Pace. [address], [address], [place], [place], [address], [place]. tel:[phone] Referring Provider: Sanjeev Barker, [address], [place], [address] . tel:[phone] [facility], [address], [place], [place], [address], [place] tel:[phone] SEC Arnoldo ECKERT Professional 1 day s/p PCIOL (chief complaint) Post op visit 0 Waqar Pace. [address], [address], [place], [place], [address], [place]. tel:[phone] Referring Provider: Sanjeev Barker, [address], [place], [address] . tel:[phone] [facility] [place], [address] [address], [place], [place], [address], [place] tel:[phone] [employer] [facility] No Information [address] Abelardo. [facility] [employer], [address], [place], [place], [address], . tel:[phone] Referring Provider: Sanjeev Barker, [address] [facility] [address], [place], [address] . tel:[phone] [facility], [address] [place], [place] [address] [address], [place], [place], [address], tel:[phone] [place] No Information 0 Annemarie Abelardo. [facility] [employer], [address], [place], [place], [address], [place]. tel:[phone] Referring Provider: Sanjeev Barker, [address] [facility] [address], [place], [address] . tel:[phone] [facility], [address] [place] [address] [address], [place], [place], [address], tel:[phone] SEC [place] Professional Cataract evaluation (chief complaint) Post op visitCombined forms of age-related cataract, bilateral [address] Abelardo. [facility] [employer], [address], [place], [place], [address], [place]. tel:[phone] Referring Provider: Sanjeev Barker, [address] [facility] [address], [place], [address] . tel:[phone] [facility], [facility] [employer] [address], [place], [place], [address], [place] tel:[phone] SEC [place] Professional Cataract evaluation (chief complaint) Post op visit 0-[address] [facility] [employer], [address], [place], [place], [address], . tel:[phone] Referring Provider: Sanjeev Barker, [address] [facility] [address], [place], [address] . tel:[phone] [facility], [address], [place], [place], [address], [place] tel:[phone] SEC Rebekah [place] 1 wk Pterygium excision po (chief complaint) Post op visit 9 Annemarie Zhou. [facility] [employer], [address], [place], [place], [address], [place]. tel:[phone] Referring Provider: Sanjeev Barker, Emerita[address] [facility] [address], [place], [address] . tel:[phone] [facility], [address] [employer] [address], [place], [place], [address], [place] tel:[phone] SEC [place] Pterygium excision (chief complaint) Post op visit 0 9 Annemarie Zhou. [facility] [employer], [address], [place], [place], [address], [place]. tel:[phone] Referring Provider: Sanjeev Barker, [address] [facility] [address], [place], [address] . tel:[phone] [facility], [address] [address], [place], [place], [address], [place] tel:[phone] [employer] [facility] [place] No Information 9 Annemarie Zhou. [facility] [employer], [address], [place], [place], [address], [place]. tel:[phone] Referring Provider: Sanjeev Barker, [address] [facility] [address], [place], [address] . tel:[phone] Office/outpa tient Visit, Est [facility], [address] [address], [place], [place], [address], [place] tel:[phone] SEC [place] Professional pterygium and cataract (chief complaint) Peripheral pterygium, progressive, left eyeCombined forms of age-related cataract, bilateral Oct- 9 Annemarie Zhou. [address], [address], [place], [place], [address], [place]. tel:[phone] Referring Provider: Sanjeev Barker, [address] [facility] [address], [place], [address] . tel:[phone] [facility] [place], [address] [address], [place], [place], [address], [place] [phone] SEC [place] Professional Complete Exam (chief complaint) Age-related nuclear cataract, bilateralPter ygium of left eyeAllergic conjunctiviti s of both eyes 9 Waqar Pace. [address] [facility], [facility] [address], [place], [place], [address], [place]. tel:[phone] Referring Provider: Sanjeev Barker, [address] [facility] [address], [place], [address] . tel:[phone] [facility], [address] [address], [place], [place], [address], [place] [phone] SEC [place] No Information 9 Asha JOSE JUAN Destiny. [address] [facility], [facility] [address], [place], [address], . tel:[phone] Family History Family Member Type Diagnosis Age At Onset Problem (finding) Family history of Diabe prakash mellitus Payers Payer name Insurance type Covered constitution party ID Authoriza tion(s) AAR Medicare Complete [place] [id number] [place] [id number] Social History Type Description Quantity Date Captured [...] No Information Instructions Date Instruction Additional Infor marya lice Impression/Plan Impression/Plan Impression/Plan Impression/Plan Impression/Plan Impression/Plan sched CE OS 1st Related to Combi denny forms of age-related cataract, bilateral Impression/Plan Related to Combi denny forms of age-related cataract, bilateral Impression/Plan Impression/Plan Impression/Plan Impression/Plan Impression/Plan Assessments Type Assessment Date No Information Patient Care Teams Name Effective Dates (start - stop) Status Members No Information
--- OUTSIDE RECORDS SUMMARY | 2024-09-12 11:16 | XMS_ITS | Clinical Summary ---
Author Organization [facility] Address [address] [place] [address] Phone Care Team Providers Care Emission Specialist Name Role Phone Mark De Los Santos MD Unavailable Unavailable Rand Tsang MD Unavailable [phone] Vicki Salmeron APRN Primary Care Provider [phone] Allergies Active Allergy Reactions Criticality Noted Date [...] 1 tablet daily for 5 days. Rx: [id number] Active Active Problems Problem Noted Date Diagnosed Date Polyneuropathy associated with underlying diseas e 10/24/2019 '[id number]' with signs of mal nutrition 02/02/2019 Pulmonary hypertension 05/02/2017 Overview (01/24/2018): 44mm Hg Rash 02/10/2017 Benign prostatic hyperplasia with urinary freque ncy 12/19/2015 Hypertension, essential Arthritis DM2 (diabetes mellitus, type 2) Hyperlipidemia Encounters Date Type Department Care Team Description 09/11/2024 1:00 AM CDT [facility] Visit [facility] [address] Laura Valero RN SN - HOME VISIT 08/30/2024 1:00 AM CDT Home Care Visit [address] [address] Tere Grier RN SN - HOME VISIT 08/24/2024 10:30 AM CDT Home Care Visit [address] [address] Tere Grier, ISABELL SN - HOME VISIT 08/24/2024 9:30 AM CDT Home Care Visit [address] [address] Renetta Alberts, PT PT - DISCIPLINE DISCHARGE 08/16/2024 2:30 PM CDT Home Care Visit [address] [address] Zunilda Bustos, WINDING DEPARTMENT SUPERVISOR PT - HOME VISIT 08/16/2024 1:30 PM CDT Home Care Visit [address] [address] Tere Paul RN SN - HOME VISIT 08/16/[address] [address] Radha Mcnair RN 08/14/2024 2:30 PM CDT Home Care Visit [address] [address] Zunilda Bustos, WINDING DEPARTMENT SUPERVISOR PT - HOME VISIT 08/09/2024 11:30 AM CDT Home Care Visit [address] [address] Rossi Ayala LPN SN - HOME VISIT 08/08/2024 Home Care Visit [address] [address] Antonina Miller OT TELEPHONE ENCOUNTER 08/07/2024 11:00 AM CDT Home Care Visit [address] [address] Tammy Weldon, Student PT - INITIAL EVALUATION 08/04/2024 2:00 PM CDT [facility] [address] [place] [address] Tere Grier, RN SN - OASIS START OF CARE 08/04/2024 Plan [facility] [address] [place] [address] from Last 3 Months Immunizations Immunization Administration [...] Former Cigarettes 1 25 1 961 - 1986 Smokeless Tobacco: Never Tobacco Cessation:Counseling Given: No [...] 09/20/2024 1:00 AM CDT Home Care Visit [facility] [address] [place] [address] Tere Paul RN [place] 09/27/2024 1:00 AM CDT [facility] [address] [place] [address] Tere Paul RN [place] Health Maintenance Due Date Last Done Comments Diabetes: Foot Exam 1952 Hepatitis C Virus (HCV) Screening 1950 Colonoscopy 1997 Colorectal Cancer Screening 1997 Cologuard 2002 Immunochemical Fecal Occult Blood 2002 Respiratory Syncytial Virus (RSV) Immunization (Adult) (1 - Risk 60-74 years 1-dose series) 2012 Diabetes: Nephropathy Screening 04/23/2020 04/23/2019, 01/08/2019, 01/04/2019, Additional history exists SARS-COV-2 Immunization (2023- season) 2024 02/17/2022, 09/23/2021, 03/25/2021, Additional history exists Diabetes: Eye Exam 03/29/2024 03/29/2023 Diabetes: Hemoglobin A1c 10/12/202404/13/ 024, 08/30/2023, 06/10/2023, Additional history exists Influenza [...] (COMPREHENSIVE METABOLIC PANEL) Today 04/23/2019 10:44 AM DIRECTOR EMPLOYEE [employer]Y [employer] HE[employer] Pulmonary hypertension (HCC) Hypertension, essential Type 2 [...] 6.0 % 10/24/2019 12:53 PM CDT [facility] Est Average Glucose 168.6 mg/dL 10/24/2019 12:53 PM CDT [facility] Blood Venipuncture / Unknown 10/24/2019 10:30 AM CDT 10/24/2019 10:30 AM CDT Narrative [facility] - 10/24/2019 12:53 PM CDT HEMOGLOBIN A1C: DIABETIC PATIENTS: WELL-CONTROLLED: 6.2 - 7.0 INTERMEDIATE WELL-CONTROLLED: 7.0 - 9.0 POORLY-CONTROLLED: >9.0 us Carlos Moran MD CHEMISTRY ORDERABLES Holly leigh Result [facility] [address] [place] [address] * (ABNORMAL) CMP (COMPREHENSIVE METABOLIC PANEL) (04/23/2019 10:44 AM DIRECTOR [employer]) SODIUM 141 136 - 144 mmol/L 04/23/2019 12:52 PM [facility] POTASSIUM 3.4(L) 3.5 - 5.1 mmol/L 04/23/2019 12:52 PM [facility] CHLORIDE 102 100 - 110 mmol/L 04/23/2019 12:52 PM [facility] CO2, VENOUS 26 22 - 32 mmol/L 04/23/2019 12:52 PM [facility] ANION GAP 16.4 8.0 - 20.0 mmol/L 04/23/2019 12:52 PM [facility] GLUCOSE 128(H) 70 - 99 mg/dL 04/23/2019 12:52 PM [facility] BUN 14 8 - 23 mg/dL 04/23/2019 12:52 PM [facility] CREATININE, BLOOD 1.01 0.80 - 1.30 mg/dL 04/23/2019 12:52 PM [facility] BUN/CREATININE RATIO 14 12 - 20 ratio 04/23/2019 12:52 PM [facility] TOTAL PROTEIN 7.4 6.0 - 8.3 g/dL 04/23/2019 12:52 PM [facility] ALBUMIN 3.9 3.5 - 5.2 g/dL 04/23/2019 12:52 PM [facility] Comment: The colormetric methods used for the determination of Albumin may lead to falsely elevated test results in patients suffering from renal failure or insufficiency due to interference with other proteins. A/G RATIO 1.1 1.0 - 2.0 04/23/2019 12:52 PM [facility] CALCIUM 8.9 8.9 - 10.3 mg/dL 04/23/2019 12:52 PM [facility] T BILI 0.3 <=1.2 mg/dL 04/23/2019 12:52 PM [facility] SGOT (AST) 16 <=40 U/L 04/23/2019 12:52 PM [facility] SGPT (ALT) 19 <=41 U/L 04/23/2019 12:52 PM [facility] ALKALINE PHOSPHATASE 102 40 - 130 U/L 04/23/2019 12:52 PM [facility] GFR, EST. NONAFRICAN >60 >=60 04/23/2019 12:52 PM [facility] GFR, EST. >60 >=60 019 12:52 PM [facility] Comment: Creatinine Clearance is the preferred criteria for selecting drug dose adjustments in renally impaired patients. The GFR is provided as additional pertinent clinical information. GFR is reported in mL/min/1.73 sq m. Blood specimen (specimen) Venipuncture / Unknown 04/23/2019 10:44 AM [employer]OR [employer] 04/23/2019 10:44 AM [employer]OR [employer] us Carlos Moran MD CHEMISTRY ORDERABLES Holly leigh Result [facility] [address] [place] [address] * (ABNORMAL) PSA DIAGNOSTIC,TOTAL (02/19/2019 10:38 AM CDT) PSA, TOTAL (PROSTATIC SPECIFIC ANTIGEN) 6.36(H) <=4.00 ng/mL 02/19/2019 1:24 PM CDT [facility] Blood specimen (specimen) Venipuncture / Unknown 02/19/2019 10:38 AM CDT 02/19/2019 12:34 PM CDT Narrative [facility] - 02/19/2019 1:24 PM CDT PSA NOTE: The PSA value should be used in conjunction with information available from clinical evaluation and other diagnostic procedures. Michelet Moran MD CHEMISTRY ORDERABLES Final Result [facility] [address] [place] [address] from Last 3 Months or Most Recently Relevant to Health Maintenance Insurance MEDICARE C [employer] Advance Directives * Full Code (Latest Code Status on File) Date Activated Date Inactivated Comments 08/07/2024 2:22 PM Care Teams Emission Specialist Relationship Specialty Start Date End Date Vicki Salmeron APRN [address] [place] [address] PCP - General Advanced Practice Nurse 08/16/24 Mark De Los Santos MD Consulting Physician Urology 09/05/15 Rand Tsang MD Consulting Physician Dermatopathology 01/16/18
--- OUTSIDE RECORDS SUMMARY | 2024-09-12 11:16 | XMS_ITS | Encounter Summary ---
Author Organization [facility] Address [address] [place] [address] Phone Care Team Providers Care Carriage Setter Name Role Phone Carlos Moran MD Primary Care Provider [phone] Mark De Los Santos MD Unavailable Unavailable Rand Tsang MD Unavailable [phone] Provider, None Primary Care Provider UnavailSohail Kc MD Primary Care Provider [phone] Carlos Moran MD Primary Care Provider [phone] Sohail Gould MD Primary Care Provider [phone] Vicki Salmeron APRN Primary Care Provider [phone] Reason for Visit * Reason Comments Medication Refill Encounter Details Date Type Department Care Team (Late st Contact Info) Description 03/21/2020 Refill [facility] - Primary Care - [place] [address] [place] [address] Carlos Moran MD [address] [place], [place] [id number] Medication Refill Social History Tobacco Use Types [...] COVID-19? No / Unsure 03/13/2020 2:58 PM [employer] documented as of this encounter Miscellaneous Notes * Telephone Encounter - Carlos Moran MD - 03/21/2020 10:53 AM [employer] Refill request approved. [employer] * Telephone Encounter - Tavia Pablo [facility] - 03/21/2020 10:42 AM [employer] Medication failed the protocol, provider to review [...] weeks ago Acute pain of left knee [facility] Carlos Moran MD 1 month ago Cellulitis of mouth [facility] Carlos Moran MD 1 month ago Polyneuropathy associated with underlying disease (HCC) [facility] Carlos Moran MD 4 months ago Hypertension, essential [facility] Carlos Moran MD 8 months ago Urinary pain [facility] Carlos Moran MD Upcoming Appointments Future Appointments In 1 month Fox Shearer MD [facility] - Neu[facility] In 1 month Carlos oMran MD [facility] FREY MANAGEMENT PSYCHOLOGIST - Recent and Past Visits Recent Visits Date Type Provider Dept 02/28/20 Office Visit Carlos Moran MD [facility] 02/18/20 [facility] 02/05/20 Office Visit Carlos Moran, MD [facility] 10/24/19 Office Visit Carlos Moran, MD [facility] 07/13/19 Office Visit Carlos Moran, MD [place] 04/23/19 Office Visit Carlos Moran, MD [facility] 02/12/19 [facility] Show[facility] recent visits within past 460 days with a meds authorizing provider and meeting all other requirements Future Appointments Date Type Provider Dept 04/24/20 Appointment Carlos Moran MD [facility] Showing future appointments within next 90 days with a meds authorizing provider and meeting all other requirements [employer] documented in this encounter Plan of Treatment Upcoming Encounters Date Type Department Care Team (Late st Contact Info) Description 09/20/2024 1:00 AM CDT [facility] [address] [place] [address] Tere Paul RN [place] 09/27/2024 1:00 AM CDT [facility] [address] [place] [address] Tere Paul, RN [place] documented as of this encounter Visit Diagnoses Not on filedocumented in this encounter Additional Health Concerns Assessment Noted Time PHQ-9 Depression Total Score: 0 07/13/19 10:00 AM CDT documented as of this encounter Care Teams Carriage Setter Relationship Specialty Start Date End Date Carlos Moran MD [address] [place] [address] PCP - General Internal Medicine 01/28/15 04/21/20 Provider, None [place] PCP - General 04/22/20 08/04/20 Sohail Gould MD [address] [place] [address] PCP - General Family Medicine 08/05/20 10/06/20 Carlos Moran MD [address] [place] [address] PCP - General Internal Medicine 10/07/20 08/19/21 Sohail Gould MD [address] [place] [address] PCP - General Family Medicine 08/20/21 08/15/24 Vicki Salmeron APRN [address] [place] [address] [place] [address] PCP - General Advanced Practice Nurse 08/16/24 Mark De Los Santos MD [address] [address] Consulting Physician Urology 09/05/15 Rand Tsang MD [address] [place] [address] Consulting Physician Dermatopathology 01/16/18 documented as of this encounter
--- OUTSIDE RECORDS SUMMARY | 2024-09-12 11:17 | XMS_ITS | Encounter Summary ---
Author Organization [facility] Healthcare Address [address] [place] [address] Care Team Providers Care Associate Agent Insurance Sales Name Role Phone Nicolas Jung MD Unavailable [phone] Louie Lomeli MD Unavailable [phone] Melchor Woodard MD Primary Care Provider [phone] Jairo Sparrow MD Unavailable [phone] Encounter Details Date Type Department Care Team (Late st Contact Info) Description 08/13/2024 Telephone [facility] [address] [facility] [address] [place] [address] Jairo Sparrow MD [address] [place] [address] [address] [place] [address] Social History Tobacco Use Types [...] materials from doctor or pharmacy Sometimes 01/17/2024 [facility] Utilities Answer Date Recorded In the [...] often do you attend chur ch or shinto services? Never 07/31/2024 Do you belong to any clubs o r organizations such as voodoo groups, unions, fraternal or athletic groups, or [...] slept in a senior living (including now)? No 08/29/2023 Housing Stability Vital Sign Answer Víctor e Recorded In the last 12 months, was t here a time when you were not able to pay the mortgage or rent on time? No 07/31/2024 In the past 12 months, how m any times have you moved where you were living? 1 07/31/2024 At any time in the past 12 m [facility], were you homeless or living in a senior living (including now)? 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 documented in this encounter Plan of Treatment Not on file documented as of this encounter Visit Diagnoses Not on filedocumented in this encounter Care Teams Associate Agent Insurance Sales Relationship Specialty Start Date End Date Melchor Woodard MD PCP - General Family Practice 07/30/22 Nicolas Jung MD Surgeon Orthopedic Surgery 08/05/21 Louie Lomeli MD Consulting Physician Cardiology 12/23/21 Jairo Sparrow MD [address] [facility] [place] [address] Consulting Physician Neurology 12/14/22 documented as of this encounter
--- OUTSIDE RECORDS SUMMARY | 2024-09-12 11:17 | XMS_ITS | Encounter Summary ---
Author Organization [facility] Healthcare Address [address] [place] [address] Care Team Providers Care Border Inspector Name Role Phone Nicolas Jung MD Unavailable [phone] Louie Lomeli MD Unavailable [phone] Melchor Woodard MD Primary Care Provider [phone] Jairo Sparrow MD Unavailable [phone] Encounter Details Date Type Department Care Team (Late st Contact Info) Description 08/09/2024 Documentation [facility] [address] [place] [address] Rodriguez Goldstein RN Social History Tobacco Use [...] materials from doctor or pharmacy Sometimes 01/17/2024 [facility] Utilities Answer Date Recorded In [...] often do you attend chur ch or catholic services? Never 07/31/2024 Do you belong to [...] place to sleep or slept in a correction (including now)? No 08/29/2023 Housing Stability Vital [...] time in the past 12 m [facility], were you homeless or living in a correction (including now)? 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 Gender Identity Not on file Sexual Orientation Not on file documented as of this encounter Plan of Treatment Not on file documented as of this encounter Visit Diagnoses Not on filedocumented in this encounter Care Teams Border Inspector Relationship Specialty Start Date End Date Melchor Woodard MD PCP - General Family Practice 07/30/22 Nicolas Jung MD Surgeon Orthopedic Surgery 08/05/21 Louie Lomeli MD Consulting Physician Cardiology 12/23/21 Jairo Sparrow MD [address] [facility] [address] [place] [id number] Consulting Physician Neurology 12/14/22 documented as of this encounter
--- OUTSIDE RECORDS SUMMARY | 2024-09-12 11:17 | XMS_ITS | Clinical Summary ---
Author Organization [facility] [employer] Address [address] [place] [address] Care Team Providers Care Car Wash Supervisor Name Role Phone Carlos Moran MD Primary Care Provider [phone] Source Comments [facility] [employer],non-owned Affiliates and Associated Physician Practices is amultiple site organization consisting of ambulatory clinics and hospital sitesin [place], [place], [place] and [place]. This disclosure is being madepursuant to the Care Everywhere program and may not contain all information available regarding this patient. 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 KEEPER Gender Identity Not on file Sexual Orientation Not on file Last Filed Vital Signs Vital Sign Reading Time Taken Comments Blood Pressure 136/78 04/24/2017 10:32 AM SALOON KEEPER Pulse 78 04/24/2017 10:32 AM SALOON KEEPER Temperature 36.8 C (98.2 F) 04/24/2017 10:32 AM SALOON KEEPER Respiratory Rate - - Oxygen Saturation - - Inhaled Oxygen Concentration - - Weight 104.8 kg (231 lb) 04/24/2017 10:32 AM SALOON KEEPER Height 177.8 cm (5' 10 ) 04/24/2017 10:32 AM SALOON KEEPER Body Mass Index 33.15 04/24/2017 10:32 AM SALOON KEEPER Plan of Treatment Upcoming Encounters Date Type Department Care Team (Late st Contact Info) Description 12/20/2024 11:00 AM CDT Appointment [facility] [address] [address] Lisa Singh MD [address] [place] [address] [phone] Health Maintenance Due Date Last Done Comments [...] Comments LIPID PROFILE STAT 04/13/2024 3:21 PM SALOON KEEPER from Last 3 Months or Most Recently Relevant to Health Maintenance Results * (ABNORMAL) LIPID PROFILE (04/13/2024 3:21 PM SALOON KEEPER) Cholesterol 173 <200 mg/dL 04/13/2024 3:48 PM SALOON KEEPER [facility] Triglycerides 179(H) <150 mg/dL 04/13/2024 3:48 PM SALOON KEEPER [facility] HDL Cholesterol 26(L) >40 mg/dL 4 3:48 PM SALOON KEEPER [facility] LDL Calculated 111 <130 mg/dL 04/13/2024 3:48 PM SALOON KEEPER [facility] VLDL Calculated 36(H) <=30 mg/dL 4 3:48 PM SALOON KEEPER [facility] Chol HDL Ratio 6.7(H) <4.5 04/13/2024 3:48 PM SALOON KEEPER [facility] LDL/HDL Ratio 4.3 <5.0 04/13/2024 3:48 PM SALOON KEEPER [facility] Blood BLOOD SPECIMEN / Unknown Venipuncture / Unknown 04/13/2024 3:21 PM SALOON KEEPER 04/13/2024 3:25 PM SALOON KEEPER Maged Mcdonnell LAB - CHEMISTRY ORDERABLES Holly l Result [facility] [address] [place] [address] from Last 3 Months or Most Recently Relevant to Health Maintenance Insurance [employer] MANAGED MEDICARE ADV Care Teams Car Wash Supervisor Relationship Specialty Start Date End Date Carlos Moran MD PCP - General Internal Medicine 04/24/17
--- OUTSIDE RECORDS SUMMARY | 2024-09-12 11:17 | XMS_ITS | Encounter Summary ---
Author Organization [facility] Healthcare Address [address] [place] [address] Care Team Providers Care Preflight Mechanic Name Role Phone Nicolas Jung MD Unavailable [phone] Louie Lomeli MD Unavailable [phone] Melchor Woodard MD Primary Care Provider [phone] Jairo Sparrow MD Unavailable [phone] Maria Eugenia Navarrete [facility] Unavailable [phone] Encounter Details Date Type Department Care Team (Late st Contact Info) Description 06/02/2023 Telephone [facility] [address] [place] [address] Jonathan Miranda MD [address] [place], [place] [id number] Social History Tobacco Use Types Packs/Day Years [...] How often do you attend chur or bahai services? Never 02/04/2023 Do you [...] or slept in a long-term (including now)? Yes 02/04/2023 Personal Safety Answer Date Recorded Have you ever been in or are you currently in a harmful physical or emotional relationship or is someone making you feel afraid or unsafe? Denies 03/09/2023 Sex and Gender Information Value Date Recorded Sex Assigned at Not on file Legal Sex Male 12:23 AM FOLLOW UP CLERK Gender Identity Not on file Sexual [...] COVID: Suspected 06/12/2024 06/12/2024 06/12/2024 4:34 PM FOLLOW UP CLERK COVID: Suspected 07/30/2024 07/30/2024 07/30/2024 4:38 PM CDT documented as of this encounter Care Teams Preflight Mechanic Relationship Specialty Start Date End Date Melchor Woodard MD PCP - General Family Practice 07/30/22 Nicolas Jung MD Surgeon Orthopedic Surgery 08/05/21 Louie Lomeli MD Consulting Physician Cardiology 12/23/21 Jairo Sparrow MD [address] [place] [address] [address] [facility] [place] [address] Consulting Physician Neurology 12/14/22 Maria Eugenia Navarrete, [address] [place] [address] Pharmacist Pharmacy 03/12/24 03/12/24 documented as of this encounter
--- OUTSIDE RECORDS SUMMARY | 2024-09-12 11:17 | XMS_ITS | Encounter Summary ---
Author Organization [facility] Health Address [address] [facility] [place] [address] Care Team Providers Care Segment Block Layer Name Role Phone Carlos Moran MD Primary Care Provider [phone] Encounter Details Date Type Department Care Team (Late Contact Info) Description 04/13/2024 Lab Requisition [facility] [address] [place] [address] [place] [address] Social History Tobacco Use Types Packs/Day Years Used Date Smoking Tobacco: Former Smokeless Tobacco: Never Alcohol Use Standard Drinks/Week Comments No 0 (1 standard drink = 0.6 oz pur e alcohol) Sex and Gender Information Value Date Recorded Sex Assigned at Not on file Legal Sex Male 11:59 AM FLAT 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 PROCESSOR Gender Identity Not on file Sexual Orientation Not on file documented as of this encounter Plan of Treatment Upcoming Encounters Date Type Department Care Team (Late Contact Info) Description 12/20/2024 11:00 AM CDT Appointment [facility] [address] [address] Lisa Singh MD [address] [place] [address] [phone] documented as of this encounter Procedures Procedure Name Priority Date/Time Associated Diagnosis Comments TSH REFLEX FREE T4 STAT 04/13/2024 3: 21 PM FLAT BREAKDOWN PROCESSOR HEMOGLOBIN A1C STAT 04/13/2024 3:21 PM FLAT BREAKDOWN PROCESSOR CBC W AUTO DIFFERENTIAL STAT 04/13/2024 3:21 PM FLAT BREAKDOWN PROCESSOR COMPREHENSIVE METABOLIC PANEL STAT 04/13/2024 3:21 PM FLAT BREAKDOWN PROCESSOR LIPID PROFILE STAT 04/13/2024 3:21 PM FLAT BREAKDOWN PROCESSOR documented in this encounter Results * (ABNORMAL) HEMOGLOBIN A1C (04/13/2024 3:21 PM FLAT BREAKDOWN PROCESSOR) Hemoglobin A1c 7.3(H) <5.7 % 04/13/2024 3:47 PM FLAT BREAKDOWN PROCESSOR [facility] Estimated Average Glucose 163 mg/dL 04/13/2024 3:47 PM FLAT BREAKDOWN PROCESSOR [facility] Blood BLOOD SPECIMEN / Unknown 04/13/2024 3:21 PM FLAT BREAKDOWN PROCESSOR 04/13/2024 3:25 PM FLAT BREAKDOWN PROCESSOR [facility] - 04/13/2024 3:47 PM FLAT BREAKDOWN PROCESSOR HbA1c Interpretation: Normal: < 5.7% Pre-diabetes: 5.7-6.4% [...] LAB - CHEMISTRY ORDERABLES Holly lu Result [facility] [address] [place] [address] * (ABNORMAL) LIPID PROFILE (04/13/2024 3:21 PM FLAT BREAKDOWN PROCESSOR) Cholesterol 173 <200 mg/dL 04/13/2024 3:48 PM FLAT BREAKDOWN PROCESSOR [facility] Triglycerides 179(H) <150 mg/dL 04/13/2024 3:48 PM FLAT BREAKDOWN PROCESSOR [facility] HDL Cholesterol 26(L) >40 mg/dL 3:48 PM FLAT BREAKDOWN PROCESSOR [facility] LDL Calculated 111 <130 mg/dL 04/13/2024 3:48 PM FLAT BREAKDOWN PROCESSOR [facility] VLDL Calculated 36(H) <=30 mg/dL 3:48 PM FLAT BREAKDOWN PROCESSOR [facility] Chol HDL Ratio 6.7(H) <4.5 04/13/2024 3:48 PM FLAT BREAKDOWN PROCESSOR [facility] LDL/HDL Ratio 4.3 <5.0 04/13/2024 3:48 PM FLAT BREAKDOWN PROCESSOR [facility] Blood BLOOD SPECIMEN / Unknown Venipuncture / Unknown 04/13/2024 3:21 PM FLAT BREAKDOWN PROCESSOR 04/13/2024 3:25 PM FLAT BREAKDOWN PROCESSOR [facility] LAB - CHEMISTRY ORDERABLES Holly l Result Performing Organization Address City/[facility]/ZIP Co de Phone Number [facility] [address] [place] [address] * TSH REFLEX FREE T4 (04/13/2024 3:21 PM FLAT BREAKDOWN PROCESSOR) Pathologist [facility] TSH 3.335 0.350 - 4.940 uIU/mL 04/13/2024 4:06 PM FLAT BREAKDOWN PROCESSOR [facility] Blood BLOOD SPECIMEN / Unknown Venipuncture / Unknown 04/13/2024 3:21 PM FLAT BREAKDOWN PROCESSOR 04/13/2024 3:25 PM FLAT BREAKDOWN PROCESSOR M[facility] LAB - CHEMISTRY ORDERABLES Holly l Result [facility] [address] [place] [address] * (ABNORMAL) COMPREHENSIVE METABOLIC PANEL (04/13/2024 3:21 PM FLAT BREAKDOWN PROCESSOR) [facility] Glucose 193(H) 70 - 99 mg/dL 04/13/2024 3:[address] [facility] Sodium 140 136 - 145 mmol/L 04/13/2024 3:[address] [facility] Potassium 3.4(L) 3.5 - 5.1 mmol/L 04/13/2024 3:[address] [facility] Chloride 104 98 - 107 mmol/L 04/13/2024 3:[address] [facility] CO2 26 22 - 29 mmol/L 04/13/2024 3:[address] [facility] Calcium 9.6 8.4 - 10.4 mg/dL 04/13/2024 3:[address] [facility] Anion Gap 10 6 - 16 mmol/L 04/13/2024 3:[address] [facility] BUN 21 7 - 26 mg/dL 04/13/2024 3:[address] [facility] Creatinine 1.51(H) 0.72 - 1.25 mg/dL 04/13/2024 3:[address] [facility] Alkaline Phosphatase 109 40 - 150 U/L 04/13/2024 3:[address] [facility] ALT 14 0 - 55 U/L 04/13/2024 3:[address] [facility] AST 13 5 - 34 U/L 04/13/2024 3:[address] [facility] Protein Total 6.9 6.4 - 8.3 gm/dL 04/13/2024 3:[address] [facility] Albumin 3.4 3.4 - 5.0 gm/dL 04/13/2024 3:[address] [facility] Bilirubin Total 0.3 0.2 - 1.2 mg/dL 04/13/2024 3:[address] [facility] eGFR by CKD-EPI 49(L) >=90 mL/min/1.7 3 m2 04/13/2024 3:[address] [facility] Blood BLOOD SPECIMEN / Unknown Venipuncture / Unknown 04/13/2024 3:21 PM FLAT BREAKDOWN PROCESSOR 04/13/2024 3:[address] [facility] LAB - CHEMISTRY ORDERABLES Holly l Result [facility] [address] [place] [address] * (ABNORMAL) CBC WITH DIFFERENTIAL (04/13/2024 3:21 PM FLAT BREAKDOWN PROCESSOR) WBC 11.8(H) 4.0 - 10.7 x10E9/L 04/13/2024 3:[address] [facility] RBC Count 4.77 4.30 - 5.80 x10E12/L 04/13/2024 3:[address] [facility] Hemoglobin 13.9 13.3 - 17.5 g/dL 04/13/2024 3:[address] [facility] Hematocrit 44.8 38.7 - 51.1 % 04/13/2024 3:[address] [facility] MCV 93.9 80.0 - 98.0 fL 04/13/2024 3:[address] [facility] MCH 29.1 26.7 - 33.6 pg 04/13/2024 3:[address] [facility] MCHC 31.0(L) 31.7 - 36.3 g/dL 04/13/2024 3:[address] [facility] RDW-CV 13.2 11.3 - 14.8 % 04/13/2024 3:[address] [facility] Platelet Count 253 150 - 420 x10E9/L 04/13/2024 3:[address] [facility] MPV 10.2 7.8 - 11.4 fL 04/13/2024 3:[address] [facility] Neutrophil % 79.0(H) 41.0 - 74.0 % 04/13/2024 3:[address] [facility] Lymphocyte % 10.8(L) 17.0 - 47.0 % 04/13/2024 3:[address] [facility] Monocyte % 7.3 3.0 - 11.0 % 04/13/2024 3:[address] [facility] Eosinophil % 1.5 0.0 - 7.0 % 04/13/2024 3:[address] [facility] Basophil % 0.3 0.0 - 1.6 % 04/13/2024 3:[address] [facility] Immature Granulocytes % 1.1(H) 0.0 - 1.0 % 04/13/2024 3:32 PM FLAT BREAKDOWN PROCESSOR [facility] Neutrophil Absolute 9.32(H) 1.60 - 7.50 x10E9/L 04/13/2024 3:32 PM FLAT BREAKDOWN PROCESSOR [facility] Lymphocyte Absolute 1.27 1.00 - 4.40 x10E9/L 04/13/2024 3:32 PM FLAT BREAKDOWN PROCESSOR [facility] Monocyte Absolute 0.86 0.15 - 1.00 x10E9/L 04/13/2024 3:32 PM FLAT BREAKDOWN PROCESSOR [facility] Eosinophil Absolute 0.18 0.00 - 0.60 x10E9/L 04/13/2024 3:32 PM FLAT BREAKDOWN PROCESSOR [facility] Basophil Absolute 0.04 0.00 - 0.13 x10E9/L 04/13/2024 3:32 PM FLAT BREAKDOWN PROCESSOR [facility] Blood BLOOD SPECIMEN / Unknown 04/13/2024 3:21 PM FLAT BREAKDOWN PROCESSOR 04/13/2024 3:25 PM FLAT BREAKDOWN PROCESSOR [facility] LAB - HEMATOLOGY ORDERABLES Fin al Result Performing Organization Address City/State/[facility] Co de Phone Number [facility] [address] [place], [place] [id number] documented in this encounter Visit Diagnoses Not on filedocumented in this encounter Care Teams Segment Block Layer Relationship Specialty Start Date End Date Carlos Moran MD PCP - General Internal Medicine 04/24/17 documented as of this encounter
--- OUTSIDE RECORDS SUMMARY | 2024-09-12 11:17 | XMS_ITS | Encounter Summary ---
Author Organization [facility] Healthcare Address [address] [place] [address] Care Team Providers Care Wolf Hunter Name Role Phone Nicolas Jung MD Unavailable [phone] Louie Lomeli MD Unavailable [phone] Melchor Woodard MD Primary Care Provider [phone] Jairo Sparrow MD Unavailable [phone] NavarreteMaria Eugenia quiñones [facility] Unavailable [phone] Encounter Details Date Type Department Care Team (Late st Contact Info) Description 06/02/2023 Telephone [facility] [address] [facility] [address] [place] [address] Jonathan Miranda MD [address] [place], [place] [id number] Social History Tobacco Use Types Packs/Day Years [...] week 02/04/2023 How often do you attend [employer] [facility] or mandaeism services? Never 02/04/2023 Do you belong to any clubs o r organizations such as protestant groups, unions, fraternal or athletic groups, or [...] place to sleep or slept in a chcf (including now)? Yes 02/04/2023 Personal Safety Answer Date Recorded Have you ever been in or are you currently in a harmful physical or emotional relationship or is someone making you feel afraid or unsafe? 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 Gender Identity Not on file Sexual Orientation [...] COVID: Suspected 06/12/2024 06/12/2024 06/12/2024 4:34 PM SERVICE DELIVERY MANAGER COVID: Suspected 07/30/2024 07/30/2024 07/30/2024 4:38 PM CDT documented as of this encounter Care Teams Wolf Hunter Relationship Specialty Start Date End Date Melchor Woodard MD PCP - General Family Practice 07/30/22 Nicolas Jung MD Surgeon Orthopedic Surgery 08/05/21 Louie Lomeli MD Consulting Physician Cardiology 12/23/21 Jairo Sparrow MD [address] [place] [address] [address] [place] [address] Consulting Physician Neurology 12/14/22 Maria Eugenia Navarrete, [address] [place] [address] Pharmacist Pharmacy 03/12/24 03/12/24 documented as of this encounter
--- OUTSIDE RECORDS SUMMARY | 2024-09-12 11:17 | XMS_ITS | Encounter Summary ---
Author Organization [facility] Address [address] [place] [address] Phone Care Team Providers Care Superintendent Meters Name Role Phone Mark De Los Santos MD Unavailable Unavailable Rand Tsang MD Unavailable [phone] Vicki Salmeron APRN Primary Care Provider [phone] Reason for Visit * Auth/Cert (Routine) Specialty Diagnoses / Procedures Referred By Contac t Referred To Contact Referral ID Status Reason Start Date Expiration Date Visits Re quested Visits Authorized [id number] 1 1 Encounter Details Date Type Department Care Team (Late Contact Info) Description 09/11/2024 1:00 AM CDT Home Care Visit [facility] [address] [place] [address] Laura Valero RN [place] - HOME VISIT Social History Tobacco Use Types Packs/Day Years [...] Department Care Team (Late Contact Info) Description 09/20/2024 1:00 AM CDT [facility] [address] [place] [address] Tere Paul RN [place] 09/27/2024 1:00 AM CDT Appointment [facility] [address] [place] [address] Tere Paul RN [place] documented as of this encounter Visit Diagnoses Not on filedocumented in this encounter Additional Health Concerns Assessment Noted Time PHQ-9 Depression Total Score: 0 07/13/19 20 10:00 AM CDT documented as of this encounter Home Health Visit - Care Plan Visit Details Visit Type -SN - Home Health Visit Discipline -Group Home Problems Problem Description Start Date Status Goals Interve ntions DM DEHYDRATION Disciplines: Skilled Clinicians 08/04/2024 Active 1 goal linked to scheduled/document ed intervention 1 goal intervention scheduled/documente d in this visit Goals Goal Associated Problem Outcome Goal Met? Visit Notes Dehydration Description: Patient will verbalize understanding of signs and symptoms of dehydration and methods to prevent. Target date: 10/02/24 DM DEHYDRATION No Interventions Intervention Associated Problem/Goal Status Variance Visit Notes Dehydration (O) Description: Assess for dehydration and provide education regarding signs and symptoms of dehydration and methods to prevent. Problem:DM DEHYDRATION Goal:Dehydration Scheduled documented in this encounter Care Teams Superintendent Meters Relationship Specialty Start Date End Date Vicki Salmeron APRN [address] [place] [address] PCP - General Advanced Practice Nurse 08/16/24 Mark De Los Santos MD Consulting Physician Urology 09/05/15 Rand Tsang MD Consulting Physician Dermatopathology 01/16/18 documented as of this encounter
--- OUTSIDE RECORDS SUMMARY | 2024-09-12 11:17 | XMS_ITS | Referral Summary ---
Author Organization [facility] [address] Address [address] [place] [address] Care Team Providers Care Irrigation Specialist Name Role Phone Nicolas Jung MD Unavailable [phone] Louie Lomeli MD Unavailable [phone] Melchor Woodard MD Primary Care Provider [phone] Jairo Sparrow MD Unavailable [phone] Encounters Date Type Department Care Team Description 08/13/2024 Orders Only [facility] [address] [place] [address] Effie Avelar NP Dizziness and giddiness (Primary Dx) 08/13/2024 Telephone [facility] [address] [place] [phone] Jairo Sparrow MD 08/10/2024 11:13 AM CDT - 08/10/2024 1:21 PM CDT Emergency [facility] Emergency Department [address] [place] [address] Gouty arthritis of left foot (Primary Dx) Discharge Disposition: Discharge to home or self care 08/09/2024 Documentation [facility] Case Management [address] [place] [address] Rodriguez Goldstein RN 07/30/2024 2:40 PM CDT - 08/02/2024 4:22 PM CDT Hospital Encounter [facility] Acute Medicine [address] [place] [address] Krystal Araujo MD Singh, Arjun, MD Dizziness (Primary Dx); Dehydration; Dizziness and giddiness; Hypertension, essential; Class 2 severe obesity due to excess calories with serious comorbidity and body mass index (BMI) of 35.0 to 35.9 in adult (HCC); Leg weakness, bilateral Discharge Disposition: Discharge to home or self care 07/10/2024 Telephone [facility] [address] [place] [id number] Nicolas Jung MD from Last 3 Months Allergies Active Allergy Reactions Criticality Noted Date Comments Ceftriaxone Nausea only Low 09/23/2021 [facility] Reductase Inhibitors Other (See comments) Low 01/26/2018 Generalized pain Medications losartan (COZAAR) 25 mg tablet Take 1 tablet (25 mg total) by mouth daily 07/29/19 23 Active levothyroxine (SYNTHROID) 50 mcg tablet Take 1 tablet (50 mcg total) by mouth cryptographic vulnerability analyst before breakfast Active aspirin 81 mg enteric [...] total) by mouth daily 30 tablet 11 08/04/19 25 2025 Active calcium carbonate-elsa min [...] mouth daily 30 tablet 11 09/20/19 24 2024 Discontinued Active Problems Problem [...] 06/01/2022 Assessment & Plan (06/01/2022 3:29 PM SLUDGE FILTRATION OPERATOR): Worsening, patient reports symptoms are worse 1st thing in the morning, has to clean eyes before can open; fewer symptoms throughout the day; most consistent with allergic conjunctivitis Start azelastine eyedrops Diabetic neuropathy, type II diabetes mellitus 0 05/27/2022 LALITO (acute kidney injury) 03/10/2022 Obesity (BMI 30-39.9) 03/10/2022 Other chest pain 03/09/2022 Assessment & Plan (06/01/2022 3:28 PM SLUDGE FILTRATION OPERATOR): Continues to have episodes of chest pain, started in nature; can radiate to right-side of chest Patient reports some relief with ASA; has nitroglycerin Will continue to monitor; if negative cardio workup, consider esophageal spasms of source of pain Assessment & Plan (04/06/2022 11:47 AM SLUDGE FILTRATION OPERATOR): Reports pressure-like chest pain today, worsening fatigue [...] (12/29/2021): Added automatically from request for surgery [id number] Leukocytosis 12/19/2021 UTI (urinary tract infection) 12/19/2021 Coronary artery disease 12/18/2021 Overview (12/18/2021): Added automatically from request for surgery [id number] Assessment & Plan (03/07/2022 9:41 AM SLUDGE FILTRATION OPERATOR): Not well controlled, patient had stopped taking all medications, had elevated blood pressures today Encouraged patient to continue medications as prescribed Continue Brilinta 90 mg b.i.d., Zetia 10 mg daily Hypertensive crisis 12/16/2021 Assessment & Plan (12/17/2021 12:13 PM CDT): Present on admission, received Labetalol iv, currently resolved NSTEMI (non-ST elevated myocardial infarction) 0 12/16/2021 Overview (12/17/2021): Added automatically from request for surgery [id number] Assessment & Plan (01/10/2022 9:21 PM CDT): [...] Nasal saline spray (Simply saline, Little Remedies, Chaves, [place]) 2 second sprays or 2 squeezes into [...] (11/18/2020): Added automatically from request for surgery [id number] Assessment & Plan (03/20/2021 4:30 PM SLUDGE FILTRATION OPERATOR): Stable, patient waiting on improved A1c for [...] (11/18/2020): Added automatically from request for surgery [id number] Scar of vermilion border of upper lip 07/04/2020 Overview (07/04/2020): Referral to plastic surgery for evaluation and possible affects scar tissue Cicatrix 07/04/2020 Tension headache 06/30/2020 Assessment & Plan (06/25/2021 10:33 AM SLUDGE FILTRATION OPERATOR): Patient has recurrent left-sided tension headaches; likely secondary to pressure on muscles from lipoma Assessment & Plan (06/09/2021 1:59 PM SLUDGE FILTRATION OPERATOR): Patient has headache for the last 4-6 [...] nostril Assessment & Plan (06/30/2020 12:31 PM SLUDGE FILTRATION OPERATOR): Patient has severe left sided headache; reports worsened with looking down or leaning back in bed; may be related to sinuses vs tension type headache -given congestion may consider sinus pressure and will refer to ENT Chronic midline low back pain without sciatica 0 06/30/2020 Assessment & Plan (06/30/2020 12:33 PM SLUDGE FILTRATION OPERATOR): Not well controlled; likely worsened due to poor core strength; encouraged weight loss to reduce strain on lower back (has severe central adiposity) Will give patient core exercises to strengthen low back and abodmen Lipoma of neck 06/25/2020 Assessment & Plan (06/25/2021 10:32 AM SLUDGE FILTRATION OPERATOR): Not well controlled, patient has left-sided tension style headaches, S with noted changing position of head due to size of lipoma Patient benefit from surgical removal to help improve overall posture as well as potentially improved tension headaches Assessment & Plan (05/14/2021 1:29 PM SLUDGE FILTRATION OPERATOR): Patient has large lipoma on back left-sided neck; reports left-sided headaches, which may be contributed by lipoma putting pressure on muscles sugar causing tension headaches Referral to Plastic surgery for removal Assessment & Plan (03/20/2021 4:29 PM SLUDGE FILTRATION OPERATOR): Stable, Impacts patient ability to turn had; will continue monitor refer to surgery when appropriate Primary osteoarthritis of left knee 05/08/2020 Assessment & Plan (11/17/2021 3:53 PM CDT): Continues to have significant pain, has some symptom improvement, but limited range of motion and pain with movement Recent steroid injection Follow-up with orthopedics Assessment & Plan (04/21/2021 2:52 PM SLUDGE FILTRATION OPERATOR): Stable, continues with physical therapy which is [...] monitor Assessment & Plan (05/14/2021 1:29 PM SLUDGE FILTRATION OPERATOR): Improving, patient has walked about 12 lb since last visit; encouraged continued dietary changes, decreasing in take through portion control as well as lowering carbohydrate intake Encourage daily activity of 30 minutes of moderate intensity aerobic exercise daily Assessment & Plan (03/20/2021 4:29 PM SLUDGE FILTRATION OPERATOR): Weight is stable, no significant change; patient [...] week Assessment & Plan (05/05/2020 3:33 PM SLUDGE FILTRATION OPERATOR): Not well controlled, patient reports weight loss [...] daily Assessment & Plan (06/25/2021 10:31 AM SLUDGE FILTRATION OPERATOR): Stable, unclear control, patient reports inconsistent medications use Continue levothyroxine 50 mcg daily, check TSH today Assessment & Plan (04/21/2021 2:52 PM SLUDGE FILTRATION OPERATOR): Stable, well controlled; continue levothyroxine 50 mcg daily Assessment & Plan (03/20/2021 4:28 PM SLUDGE FILTRATION OPERATOR): Stable, well controlled; continue levothyroxine 50 mcg daily Assessment & Plan (09/24/2020 3:00 PM CDT): Recheck TSH today as previous TSH was mildly elevated, is still elevated will adjust levothyroxine given patient has complaints of generalized fatigue Assessment & Plan (06/16/2020 9:09 AM SLUDGE FILTRATION OPERATOR): Will recheck thyroid now that has been on medication for ~6 weeks Assessment & Plan (05/05/2020 3:36 PM SLUDGE FILTRATION OPERATOR): Mild elevation of TSH, patient has multiple symptoms including inability to lose weight, chronic fatigue and chronic tiredness Will start at low dose levothyroxine 25 mcg, will recheck TSH in approximately 6 weeks Arthritis 03/24/2020 DM2 (diabetes mellitus, type 2) 03/24/2020 Assessment & Plan (06/01/2022 3:30 PM SLUDGE FILTRATION OPERATOR): Not well controlled, A1c has always been [...] diet Assessment & Plan (06/25/2021 10:31 AM SLUDGE FILTRATION OPERATOR): Stable, improving; patient A1c has been down trending to 7.5 last time, recheck A1c today Continue metformin XR 1000 mg daily Assessment & Plan (05/14/2021 1:28 PM SLUDGE FILTRATION OPERATOR): Stable, improving; last A1c was decreasing to 7.5 Encouraged patient to continue with low-carbohydrate diet; encourage education dietary changes as well as regular exercise Continue metformin 1000 mg daily Assessment & Plan (04/21/2021 2:52 PM SLUDGE FILTRATION OPERATOR): Stable, improving; patient reports he has been working on decreasing carbohydrates Has a decreased appetite well on Rybelsuswith minimal side effects Continue metformin 1000 mg daily with breakfast, Rybelsus 7 mg prior to breakfast Continue to monitor encourage continued decreased carbohydrate diet Recheck labs at follow-up appointment Assessment & Plan (03/20/2021 4:28 PM SLUDGE FILTRATION OPERATOR): Stable, well controlled, improving Patient reports improved [...] diet Assessment & Plan (05/05/2020 3:32 PM SLUDGE FILTRATION OPERATOR): Not well controlled, A1c is 7.7 today [...] strength Assessment & Plan (03/26/2020 12:24 PM SLUDGE FILTRATION OPERATOR): Will check blood sugars and A1c to evaluate for control of diabetes on metformin Hyperlipidemia 03/24/2020 Assessment & Plan (12/17/2021 12:16 PM CDT): Pt is not on a statin due to intolerance LDL is 107. Started on Zetia per cardiology. Assessment & Plan (10/13/2021 2:34 PM CDT): Not well controlled, encouraged continued dietary changes and weight loss Assessment & Plan (05/14/2021 1:28 PM SLUDGE FILTRATION OPERATOR): Not well controlled, patient cannot tolerate statins; encouraged dietary changes order reduce cholesterol through low-fat high-fiber diet Assessment & Plan (05/05/2020 3:35 PM SLUDGE FILTRATION OPERATOR): Poorly controlled patient has elevated total and LDL cholesterol with knee depressed HDL cholesterol Triglycerides are also elevated at 254 Patient is unable to tolerate statin therapy due to muscular pain of thigh muscles Will encouraged diet and exercise as ways to maintain and modify cholesterol level Hypertension, essential 03/24/2020 Assessment & Plan (06/01/2022 3:30 PM SLUDGE FILTRATION OPERATOR): Stable, improving; blood pressure today in clinic was normal; patient reports home measurements are improving Continue amlodipine 10 mg daily, hydralazine 25 mg b.i.d., metoprolol 100 mg daily Losartan was previously on medication list, but not part of pharmacy was Given blood pressures appropriate, will continue to monitor, can rehab losartan if blood pressure increases Assessment & Plan (04/06/2022 11:47 AM SLUDGE FILTRATION OPERATOR): Stable, improving; most recent blood pressure was at target Continue losartan 100 mg daily, metoprolol 100 mg daily, amlodipine 10 mg daily Assessment & Plan (03/07/2022 9:40 AM SLUDGE FILTRATION OPERATOR): Not well controlled; patient reports that he [...] daily Assessment & Plan (06/25/2021 10:30 AM SLUDGE FILTRATION OPERATOR): Not well controlled; blood pressure is elevated this morning prior to surgery, elevated again in office Given blood pressure was just normal on 06/09/2021, will increase lisinopril to 40 mg daily Encouraged patient to consistently take medications, with no missed or skipped doses Assessment & Plan (05/14/2021 1:27 PM SLUDGE FILTRATION OPERATOR): Not well controlled, blood pressure remains elevated; patient has been inconsistent with taking medications Will continue lisinopril 20 mg, follow-up at next appointment; if blood pressure still is elevated will adjust medication Assessment & Plan (03/20/2021 4:27 PM SLUDGE FILTRATION OPERATOR): Stable well controlled; blood pressure a target; [...] needed Assessment & Plan (05/05/2020 3:34 PM SLUDGE FILTRATION OPERATOR): Well controlled, patient's blood pressure is at target today Will continue with current therapies and continue to monitor patient Assessment & Plan (03/26/2020 12:24 PM SLUDGE FILTRATION OPERATOR): Stable well controlled, continue present management Post-traumatic [...] arthroscopy Assessment & Plan (06/16/2020 9:09 AM SLUDGE FILTRATION OPERATOR): Not well controlled, had relief with cortisone injection, but now has worsening pain; relief last for about 3-4 weeks -has some instability of patella, able to 'adjust' patella to relieve pain and improve ROM Assessment & Plan (05/05/2020 3:34 PM SLUDGE FILTRATION OPERATOR): Stable, not controlled Patient is not able to consistently place weight on the Patient to follow-up with orthopedics further evaluation, based on recommendations may refer to physical therapy Assessment & Plan (03/26/2020 12:24 PM SLUDGE FILTRATION OPERATOR): Will start treatment with diclofenac cream, and use of the triamcinolone as necessary If needed will refer to physical therapy for further improvement in pain Polyneuropathy associated with underlying diseas e ([facility]) 10/24/2019 Assessment & Plan (04/06/2022 11:44 AM SLUDGE FILTRATION OPERATOR): Continues to have numbness and weakness in bilateral legs; patient scheduled nerve conduction study Continue gabapentin 100 mg TID Continue with exercise, and strength training; noted to have decreased strength in hip flexors; normal with knee -if EMG is normal, consider CK or evaluation of polymyalgia or polymysitis Assessment & Plan (05/05/2020 3:34 PM SLUDGE FILTRATION OPERATOR): Patient has episodes of decreased balance due [...] management Assessment & Plan (06/25/2021 10:32 AM SLUDGE FILTRATION OPERATOR): Not well controlled, patient continues to have frequent nighttime urination; encouraged patient to continue follow-up with Urology and reschedule surgery Continue myrbetriq 50 mg daily Assessment & Plan (03/20/2021 4:30 PM SLUDGE FILTRATION OPERATOR): Patient continues to have increased urinary frequency, [...] materials from doctor or pharmacy Sometimes 01/17/2024 [facility] Utilities Answer Date Recorded In the past 12 months has e [employer], gas, oil, or water [employer] threatened to shut off services in your [...] often do you attend chur ch or mu-ism services? Never 07/31/2024 Do you belong to any clubs o r organizations such as presybeterian groups, unions, fraternal or athletic groups, or [...] to sleep or slept in a senior care (including now)? No 08/29/2023 Housing Stability Vital Sign Answer Víctor e Recorded In the last 12 months, was t here a time when you were not able to pay the mortgage or rent on time? No 07/31/2024 In the past 12 months, how m any times have you moved where you were living? 1 07/31/2024 At any time in the past 12 m [facility], were you homeless or living in a senior care (including now)? No 07/31/2024 Personal Safety Answer [...] on file Legal Sex Male 12:23 AM SLUDGE FILTRATION OPERATOR Gender Identity Not on file Sexual Orientation Not on file Last Filed Vital Signs Vital Sign Reading Time Taken Comments Blood Pressure 135/79 08/10/2024 9:55 AM CDT Pulse 79 08/10/2024 9:55 AM CDT Temperature 36.1 C (97 F) 08/10/2024 9:55 AM CDT Respiratory [id number]|2024-09-12 11:17:00|2024-09-12 11:17:00|XMS_ITS|PAOLO BURRIS|External Medical Summaries|[id number]|" Clinical Summary Created on: September 12, 2024 Jairo Olguin : 1950 Sex: Male Author Organization [id number] [address] Address [address] [place] [address] Care Team Providers Care Irrigation Specialist Name Role Phone Nicolas Jung MD Unavailable [phone] Louie Lomeli MD Unavailable [phone] Melchor Woodard MD Primary Care Provider [phone] Jairo Sparrow MD Unavailable Allergies Active Allergy Reactions Criticality Noted Date Comments Ceftriaxone Nausea only Low 09/23/2021 Hncmcbf-Nfr-Toq Reductase Inhibitors Other (See comments) Low 01/26/2018 Generalized pain Medications losartan (COZAAR) 25 mg tablet Take 1 tablet (25 mg total) by mouth daily 07/29/19 23 Active levothyroxine (SYNTHROID) 50 mcg tablet Take 1 tablet (50 mcg total) by mouth cryptographic vulnerability analyst before breakfast Active aspirin 81 mg enteric [...] 06/01/2022 Assessment & Plan (06/01/2022 3:29 PM SLUDGE FILTRATION OPERATOR): Worsening, patient reports symptoms are worse 1st thing in the morning, has to clean eyes before can open; fewer symptoms throughout the day; most consistent with allergic conjunctivitis Start azelastine eyedrops Diabetic neuropathy, type II diabetes mellitus 0 05/27/2022 LALITO (acute kidney injury) 03/10/2022 Obesity (BMI 30-39.9) 03/10/2022 Other chest pain 03/09/2022 Assessment & Plan (06/01/2022 3:28 PM SLUDGE FILTRATION OPERATOR): Continues to have episodes of chest pain, started in nature; can radiate to right-side of chest Patient reports some relief with ASA; has nitroglycerin Will continue to monitor; if negative cardio workup, consider esophageal spasms of source of pain Assessment & Plan (04/06/2022 11:47 AM SLUDGE FILTRATION OPERATOR): Reports pressure-like chest pain today, worsening fatigue [...] (12/29/2021): Added automatically from request for surgery [id number] Leukocytosis 12/19/2021 UTI (urinary tract infection) 12/19/2021 Coronary artery disease 12/18/2021 Overview (12/18/2021): Added automatically from request for surgery [id number] Assessment & Plan (03/07/2022 9:41 AM SLUDGE FILTRATION OPERATOR): Not well controlled, patient had stopped taking all medications, had elevated blood pressures today Encouraged patient to continue medications as prescribed Continue Brilinta 90 mg b.i.d., Zetia 10 mg daily Hypertensive crisis 12/16/2021 Assessment & Plan (12/17/2021 12:13 PM CDT): Present on admission, received Labetalol iv, currently resolved NSTEMI (non-ST elevated myocardial infarction) 0 12/16/2021 Overview (12/17/2021): Added automatically from request for surgery [id number] Assessment & Plan (01/10/2022 9:21 PM CDT): [...] Nasal saline spray (Simply saline, Little Remedies, [place]aves, [place]) 2 second sprays or 2 squeezes into [...] (11/18/2020): Added automatically from request for surgery [id number] Assessment & Plan (03/20/2021 4:30 PM SLUDGE FILTRATION OPERATOR): Stable, patient waiting on improved A1c for [...] (11/18/2020): Added automatically from request for surgery [id number] Scar of vermilion border of upper lip 07/04/2020 Overview (07/04/2020): Referral to plastic surgery for evaluation and possible affects scar tissue Cicatrix 07/04/2020 Tension headache 06/30/2020 Assessment & Plan (06/25/2021 10:33 AM SLUDGE FILTRATION OPERATOR): Patient has recurrent left-sided tension headaches; likely secondary to pressure on muscles from lipoma Assessment & Plan (06/09/2021 1:59 PM SLUDGE FILTRATION OPERATOR): Patient has headache for the last 4-6 [...] nostril Assessment & Plan (06/30/2020 12:31 PM SLUDGE FILTRATION OPERATOR): Patient has severe left sided headache; reports worsened with looking down or leaning back in bed; may be related to sinuses vs tension type headache -given congestion may consider sinus pressure and will refer to ENT Chronic midline low back pain without sciatica 0 06/30/2020 Assessment & Plan (06/30/2020 12:33 PM SLUDGE FILTRATION OPERATOR): Not well controlled; likely worsened due to poor core strength; encouraged weight loss to reduce strain on lower back (has severe central adiposity) Will give patient core exercises to strengthen low back and abodmen Lipoma of neck 06/25/2020 Assessment & Plan (06/25/2021 10:32 AM SLUDGE FILTRATION OPERATOR): Not well controlled, patient has left-sided tension style headaches, S with noted changing position of head due to size of lipoma Patient benefit from surgical removal to help improve overall posture as well as potentially improved tension headaches Assessment & Plan (05/14/2021 1:29 PM SLUDGE FILTRATION OPERATOR): Patient has large lipoma on back left-sided neck; reports left-sided headaches, which may be contributed by lipoma putting pressure on muscles sugar causing tension headaches Referral to Plastic surgery for removal Assessment & Plan (03/20/2021 4:29 PM SLUDGE FILTRATION OPERATOR): Stable, Impacts patient ability to turn had; will continue monitor refer to surgery when appropriate Primary osteoarthritis of left knee 05/08/2020 Assessment & Plan (11/17/2021 3:53 PM CDT): Continues to have significant pain, has some symptom improvement, but limited range of motion and pain with movement Recent steroid injection Follow-up with orthopedics Assessment & Plan (04/21/2021 2:52 PM SLUDGE FILTRATION OPERATOR): Stable, continues with physical therapy which is [...] monitor Assessment & Plan (05/14/2021 1:29 PM SLUDGE FILTRATION OPERATOR): Improving, patient has walked about 12 lb since last visit; encouraged continued dietary changes, decreasing in take through portion control as well as lowering carbohydrate intake Encourage daily activity of 30 minutes of moderate intensity aerobic exercise daily Assessment & Plan (03/20/2021 4:29 PM SLUDGE FILTRATION OPERATOR): Weight is stable, no significant change; patient [...] week Assessment & Plan (05/05/2020 3:33 PM SLUDGE FILTRATION OPERATOR): Not well controlled, patient reports weight loss [...] daily Assessment & Plan (06/25/2021 10:31 AM SLUDGE FILTRATION OPERATOR): Stable, unclear control, patient reports inconsistent medications use Continue levothyroxine 50 mcg daily, check TSH today Assessment & Plan (04/21/2021 2:52 PM SLUDGE FILTRATION OPERATOR): Stable, well controlled; continue levothyroxine 50 mcg daily Assessment & Plan (03/20/2021 4:28 PM SLUDGE FILTRATION OPERATOR): Stable, well controlled; continue levothyroxine 50 mcg daily Assessment & Plan (09/24/2020 3:00 PM CDT): Recheck TSH today as previous TSH was mildly elevated, is still elevated will adjust levothyroxine given patient has complaints of generalized fatigue Assessment & Plan (06/16/2020 9:09 AM SLUDGE FILTRATION OPERATOR): Will recheck thyroid now that has been on medication for ~6 weeks Assessment & Plan (05/05/2020 3:36 PM SLUDGE FILTRATION OPERATOR): Mild elevation of TSH, patient has multiple symptoms including inability to lose weight, chronic fatigue and chronic tiredness Will start at low dose levothyroxine 25 mcg, will recheck TSH in approximately 6 weeks Arthritis 03/24/2020 DM2 (diabetes mellitus, type 2) 03/24/2020 Assessment & Plan (06/01/2022 3:30 PM SLUDGE FILTRATION OPERATOR): Not well controlled, A1c has always been [...] diet Assessment & Plan (06/25/2021 10:31 AM SLUDGE FILTRATION OPERATOR): Stable, improving; patient A1c has been down trending to 7.5 last time, recheck A1c today Continue metformin XR 1000 mg daily Assessment & Plan (05/14/2021 1:28 PM SLUDGE FILTRATION OPERATOR): Stable, improving; last A1c was decreasing to 7.5 Encouraged patient to continue with low-carbohydrate diet; encourage education dietary changes as well as regular exercise Continue metformin 1000 mg daily Assessment & Plan (04/21/2021 2:52 PM SLUDGE FILTRATION OPERATOR): Stable, improving; patient reports he has been working on decreasing carbohydrates Has a decreased appetite well on Rybelsuswith minimal side effects Continue metformin 1000 mg daily with breakfast, Rybelsus 7 mg prior to breakfast Continue to monitor encourage continued decreased carbohydrate diet Recheck labs at follow-up appointment Assessment & Plan (03/20/2021 4:28 PM SLUDGE FILTRATION OPERATOR): Stable, well controlled, improving Patient reports improved [...] diet Assessment & Plan (05/05/2020 3:32 PM SLUDGE FILTRATION OPERATOR): Not well controlled, A1c is 7.7 today [...] strength Assessment & Plan (03/26/2020 12:24 PM SLUDGE FILTRATION OPERATOR): Will check blood sugars and A1c to evaluate for control of diabetes on metformin Hyperlipidemia 03/24/2020 Assessment & Plan (12/17/2021 12:16 PM CDT): Pt is not on a statin due to intolerance LDL is 107. Started on Zetia per cardiology. Assessment & Plan (10/13/2021 2:34 PM CDT): Not well controlled, encouraged continued dietary changes and weight loss Assessment & Plan (05/14/2021 1:28 PM SLUDGE FILTRATION OPERATOR): Not well controlled, patient cannot tolerate statins; encouraged dietary changes order reduce cholesterol through low-fat high-fiber diet Assessment & Plan (05/05/2020 3:35 PM SLUDGE FILTRATION OPERATOR): Poorly controlled patient has elevated total and LDL cholesterol with knee depressed HDL cholesterol Triglycerides are also elevated at 254 Patient is unable to tolerate statin therapy due to muscular pain of thigh muscles Will encouraged diet and exercise as ways to maintain and modify cholesterol level Hypertension, essential 03/24/2020 Assessment & Plan (06/01/2022 3:30 PM SLUDGE FILTRATION OPERATOR): Stable, improving; blood pressure today in clinic was normal; patient reports home measurements are improving Continue amlodipine 10 mg daily, hydralazine 25 mg b.i.d., metoprolol 100 mg daily Losartan was previously on medication list, but not part of pharmacy was Given blood pressures appropriate, will continue to monitor, can rehab losartan if blood pressure increases Assessment & Plan (04/06/2022 11:47 AM SLUDGE FILTRATION OPERATOR): Stable, improving; most recent blood pressure was at target Continue losartan 100 mg daily, metoprolol 100 mg daily, amlodipine 10 mg daily Assessment & Plan (03/07/2022 9:40 AM SLUDGE FILTRATION OPERATOR): Not well controlled; patient reports that he [...] daily Assessment & Plan (06/25/2021 10:30 AM SLUDGE FILTRATION OPERATOR): Not well controlled; blood pressure is elevated this morning prior to surgery, elevated again in office Given blood pressure was just normal on 06/09/2021, will increase lisinopril to 40 mg daily Encouraged patient to consistently take medications, with no missed or skipped doses Assessment & Plan (05/14/2021 1:27 PM SLUDGE FILTRATION OPERATOR): Not well controlled, blood pressure remains elevated; patient has been inconsistent with taking medications Will continue lisinopril 20 mg, follow-up at next appointment; if blood pressure still is elevated will adjust medication Assessment & Plan (03/20/2021 4:27 PM SLUDGE FILTRATION OPERATOR): Stable well controlled; blood pressure a target; [...] needed Assessment & Plan (05/05/2020 3:34 PM SLUDGE FILTRATION OPERATOR): Well controlled, patient's blood pressure is at target today Will continue with current therapies and continue to monitor patient Assessment & Plan (03/26/2020 12:24 PM SLUDGE FILTRATION OPERATOR): Stable well controlled, continue present management Post-traumatic [...] arthroscopy Assessment & Plan (06/16/2020 9:09 AM SLUDGE FILTRATION OPERATOR): Not well controlled, had relief with cortisone injection, but now has worsening pain; relief last for about 3-4 weeks -has some instability of patella, able to 'adjust' patella to relieve pain and improve ROM Assessment & Plan (05/05/2020 3:34 PM SLUDGE FILTRATION OPERATOR): Stable, not controlled Patient is not able to consistently place weight on the Patient to follow-up with orthopedics further evaluation, based on recommendations may refer to physical therapy Assessment & Plan (03/26/2020 12:24 PM SLUDGE FILTRATION OPERATOR): Will start treatment with diclofenac cream, and use of the triamcinolone as necessary If needed will refer to physical therapy for further improvement in pain Polyneuropathy associated with underlying diseas e ([facility]) 10/24/2019 Assessment & Plan (04/06/2022 11:44 AM SLUDGE FILTRATION OPERATOR): Continues to have numbness and weakness in bilateral legs; patient scheduled nerve conduction study Continue gabapentin 100 mg TID Continue with exercise, and strength training; noted to have decreased strength in hip flexors; normal with knee -if EMG is normal, consider CK or evaluation of polymyalgia or polymysitis Assessment & Plan (05/05/2020 3:34 PM SLUDGE FILTRATION OPERATOR): Patient has episodes of decreased balance due [...] management Assessment & Plan (06/25/2021 10:32 AM SLUDGE FILTRATION OPERATOR): Not well controlled, patient continues to have frequent nighttime urination; encouraged patient to continue follow-up with Urology and reschedule surgery Continue myrbetriq 50 mg daily Assessment & Plan (03/20/2021 4:30 PM SLUDGE FILTRATION OPERATOR): Patient continues to have increased urinary frequency, [...] Department Care Team Description 08/13/2024 Orders Only [facility] [address] [place] [address] Effie Avelar NP Dizziness and giddiness (Primary Dx) 08/13/2024 Telephone [facility] [address] [place] [address] Jairo Sparrow MD 08/10/2024 11:13 AM CDT - 08/10/2024 1:21 PM CDT Emergency [facility] Emergency Department [address] [place] [address] Gouty arthritis of left foot (Primary Dx) Discharge Disposition: Discharge to home or self care 08/09/2024 Documentation [facility] Case Management [address] [place] [address] Rodriguez Goldstein RN 07/30/2024 2:40 PM CDT - 08/02/2024 4:22 PM CDT Hospital Encounter [facility] Acute Medicine [address] [place] [address] Krystal Araujo MD Singh, Arjun, MD Dizziness (Primary Dx); Dehydration; Dizziness and giddiness; Hypertension, essential; Class 2 severe obesity due to excess calories with serious comorbidity and body mass index (BMI) of 35.0 to 35.9 in adult (HCC); Leg weakness, bilateral Discharge Disposition: Discharge to home or self care 07/10/2024 Telephone [facility] [address] [place] [address] Nicolas Jung MD from Last 3 Months Immunizations Immunization Administration [...] materials from doctor or pharmacy Sometimes 01/17/2024 [facility] Utilities Answer Date Recorded In the [...] often do you attend chur ch or mu-ism services? Never 07/31/2024 Do you belong to any clubs o r organizations such as presybeterian groups, unions, fraternal or athletic groups, or [...]
--- NOTE | 2024-09-12 12:00 | NEURO_ITS ---
Impression: # Known diabetic complains of gait dysfunction. # Neuropathy, axonal asymmetrical motor and sensory. # Abnormal needle/EMG exam with neurogenic changes. Nerve Conduction Studies Anti Sensory Summary Table Stim Site NR Peak (ms) P-T Amp (µV) Site1 Site2 Delta-P (ms) Dist (cm) Wicho (m/s) Left Sup Fibular Anti Sensory (Ant Lat Mall) NO RESPONSE 14 cm NR 14 cm Ant Lat Mall 16.0 Right Sup Fibular Anti Sensory (Ant Lat Mall) NO RESPONSE 14 cm NR 14 cm Ant Lat Mall 16.0 Left Sural Anti Sensory (Lat Mall) NO RESPONSE Calf NR Calf Lat Mall 16.0 Right Sural Anti Sensory (Lat Mall) NO RESPONSE Calf NR Calf Lat Mall 16.0 Motor Summary Table Stim Site NR Onset (ms) O-P Amp (mV) Site1 Site2 Delta-0 (ms) Dist (cm) Wicho (m/s) Left Peroneal Motor (Vastus Med) Ankle 5.1 1.7 Popit Ankle 8.8 32.0 36 Popit 13.9 1.5 Right Peroneal Motor (Vastus Med) NO RESPONSE Ankle NR Popit Ankle 0.0 Popit NR Left Tibial Motor (Abd Underwood Brev) Ankle 5.2 0.9 Knee Ankle 10.8 42.0 39 Knee 16.0 0.7 Right Tibial Motor (Abd Underwood Brev) Ankle 4.8 2.7 Knee Ankle 9.7 42.0 43 Knee 14.5 4.8 F Wave Studies NR F-Lat (ms) L-R F-Lat (ms) Left Peroneal (Mrkrs) (EDB) DISPERSED RESPONSE NR Right Peroneal (Mrkrs) (EDB) 58.95 Left Tibial (Mrkrs) (Abd Hallucis) NO RESPONSE NR Right Tibial (Mrkrs) (Abd Hallucis) DISPERSED RESPONSE NR EMG Side Muscle Nerve Root Ins Act Fibs Amp Dur Recrt Comment Right AntTibialis Dp Br Fibular L4-5 Nml Nml Nml >12ms +2 Right Gastroc Tibial S1-2 Nml Nml Nml >12ms +2 Right Fibularis Long Sup Br Fibular L5-S1 Nml Nml Nml >12ms +2 Right Flex Dig Long Tibial L5-S2 Nml Nml Nml >12ms +2 Right Ext Dig Brev Dp Br Fibular L5, S1 Nml Nml Nml >12ms +4 Right QuadratusFem QuadFemoris L4-5, S1 Nml Nml Nml >12ms +2 Left AntTibialis Dp Br Fibular L4-5 Nml Nml Nml >12ms +2 Left Gastroc Tibial S1-2 Nml Nml Nml >12ms +2 Left Fibularis Long Sup Br Fibular L5-S1 Nml Nml Nml >12ms +2 Left Flex Dig Long Tibial L5-S2 Nml Nml Nml >12ms +2 Left Ext Dig Brev Dp Br Fibular L5, S1 Nml Nml Nml >12ms +4 Left QuadratusFem QuadFemoris L4-5, S1 Nml Nml Nml Nml Nml MTDD
== END 2024-09-12 10:59 | disposition home or self-care (01) ==
LOC: ANHNEURO 10:59
PROVIDERS: PCP Nurse Practitioner Adult Health; Visit Provider Nurse Practitioner Family
DX: I73.9 Peripheral vascular disease, unspecified (principal); G62.9 Polyneuropathy, unspecified
CPT/HCPCS: 95886; 95910

== ENCOUNTER 2024-09-25 14:41 | Outpatient (CLI) | payer MEDICARE, SELFPAY ==
--- OUTSIDE RECORDS SUMMARY | 2024-09-25 14:51 | XMS_ITS | Continuity of Care Document ---
Author Organization [facility] Address [address] [place] [address] Phone Care Team Providers Care Tax Accountant Name Role Phone Vicky JOSE JUAN Kita [...] Date Provider Providers Copied on En[facility], [address], [place], [place], [address], [place] tel:[phone] SEC Arnoldo ECKERT Professional No Information 3 Vicky JOSE JUAN Kita. [address], [address], [place], [place], [address], [place]. tel:[phone] [facility], [address], [place], [place], [address], [place] tel:[phone] SEC Arnoldo ECKERT Professional Complete Exam (chief complaint) Type 2 diab with mild nonp rtnop without mclr edema, r eyeCombined forms of age-related cataract, left eyePresence of intraocular lensDry eye syndrome of bilateral lacrimal glandsXT (exotropia) 3 Vicky OD Kita. [facility] [address], [address], [place], [place], [address], [place]. tel:[phone] Referring Provider: Kita Perry OD L, [facility] [address], [place], [address] . tel:[phone] [facility], [facility] [address], [place], [place], [address], [place] tel:[phone] SEC Arnoldo ECKERT Professional Cataract Evaluation (chief complaint) Pseudophakia of right eyeCombined forms of age-related cataract, left eyeXT (exotropia)Pt osis of both eyelids 0 1 Waqar Pace. [address], [facility] [address], [place], [place], [address], [place]. tel:[phone] Referring Provider: Sanjeev Barker, [address] [facility], [place], [address] . tel:[phone] Office/outpa tient Visit, [facility], [facility] [address], [place], [place], [address], [place] tel:[phone] SEC Arnoldo ECKERT Professional WIE (chief complaint) Abrasion of right eyelid, initial encounterEdem a of right upper eyelid Oct-0 0 Waqar Pace. [address], [facility] [address], [place], [place], [address], [place]. tel:[phone] Referring Provider: Sanjeev Barker, [address], [place], [address] . tel:[phone] [facility], [address], [place], [place], [address], [place] tel:[phone] SEC Arnoldo ECKERT Professional 1 month s/p PCIOL (chief complaint) Post op visit 0 Juan F Lam. [address], [address], [place], [address], [place]. tel:[phone] Referring Provider: Sanjeev Barker, [address], [place], [address] . tel:[phone] Office/outpa tient Visit, Est [facility], [address], [place], [place], [address], [place] tel:[phone] SEC Arnoldo ECKERT Professional WIE (chief complaint) Allergic conjunctiviti s of both eyes 0 Waqar Pace. [address], [place], [place], [address], [place]. tel:[phone] Referring Provider: Sanjeev Barker, [address], [place], [address] . tel:[phone] [facility], [address], [place], [place], [address], [place] tel:[phone] SEC Arnoldo ECKERT Professional 1 day s/p PCIOL (chief complaint) Post op visit 0 Waqar Pace. [address], [place], [place], [address], [place]. tel:[phone] Referring Provider: Sanjeev Barker, [address], [place], [address] . tel:[phone] [facility], [address], [place], [place], [address], [place] tel:[phone] [facility] No Information 0 Bellona Abelardo. [facility] [address], [address], [place], [place], [address], . tel:[phone] Referring Provider: Sanjeev Barker, [address] [facility] [address], [place], [address] . tel:[phone] [facility], [address] [place], [place] [address] [address], [place], [place], [address], tel:[phone] [place] No Information 0 Annemarie Abelardo. [facility] [address], [address], [place], [place], [address], [place]. tel:[phone] Referring Provider: Sanjeev Barker, [address], [place], [address] . tel:[phone] [facility], [address] [place] [address] [address], [place], [place], [address], tel:[phone] SEC [place] Professional Cataract evaluation (chief complaint) Post op visitCombined forms of age-related cataract, bilateral 0 Bellona Abelardo. [facility] [address], [address], [place], [place], [address], [place]. tel:[phone] Referring Provider: Sanjeev Barker, [address], [place], [address] . tel:[phone] [facility], [facility] [address], [place], [place], [address], [place] tel:[phone] SEC [place] Professional Cataract evaluation (chief complaint) Post op visit 0-201 9 Bellona Abelardo. [facility] [address], [address], [place], [place], [address], . tel:[phone] Referring Provider: Sanjeev Barker, [address], [place], [address] . tel:[phone] [facility], [address], [place], [place], [address], [place] tel:[phone] SEC Rebekah [place] 1 wk Pterygium excision po (chief complaint) Post op visit 9 Annemarie Zhuo. [facility] [address], [address], [place], [place], [address], [place]. tel:[phone] Referring Provider: Sanjeev Barker, [address] [facility] [address], [place], [address] . tel:[phone] [facility], [address], [place], [place], [address], [place] tel:[phone] SEC [place] Pterygium excision (chief complaint) Post op visit 0 9 Annemarie Zhou. [facility] [address], [address], [place], [place], [address], [place]. tel:[phone] Referring Provider: Sanjeev Barker, [address] [facility] [address], [place], [address] . tel:[phone] [facility], [address], [place], [place], [address], [place] tel:[phone] [facility] No Information 9 Annemarie Zhou. [facility] [address], [address], [place], [place], [address], [place]. tel:[phone] Referring Provider: Sanjeev Barker, [address] [facility] [address], [place], [address] . tel:[phone] Office/outpa tient Visit, Est [facility], [address], [place], [place], [address], [place] tel:[phone] SEC [place] Professional pterygium and cataract (chief complaint) Peripheral pterygium, progressive, left eyeCombined forms of age-related cataract, bilateral Oct- 9 Annemarie Zhou. [address], [address], [place], [place], [address], [place]. tel:[phone] Referring Provider: Sanjeev Barker, [address] [facility] [address], [place], [address] . tel:[phone] [facility], [address], [place], [place], [address], [place] [phone] SEC [place] Professional Complete Exam (chief complaint) Age-related nuclear cataract, bilateralPter ygium of left eyeAllergic conjunctiviti s of both eyes 9 Waqar Pace. [address] [facility], [facility], [place], [place], [address], [place]. tel:[phone] Referring Provider: Sanjeev Barker, [address] [facility] [address], [place], [address] . tel:[phone] [facility], [address], [place], [place], [address], [place] [phone] SEC [place] No Information 9 Asha JOSE JUAN Destiny. [address] [facility], [facility] [address], [place], [address], . tel:[phone] Family History Family Member Type Diagnosis Age At Onset Problem (finding) Family history of Diabe prakash mellitus Payers Payer name Insurance type Covered constitution party ID Authoriza tion(s) AAR Medicare [place] [id number] [place] [id number] Social History Type Description Quantity Date Captured [...]
[2024-09-25 19:08] LABS: Alanine Aminotransferase 20 U/L (6-50); Alkaline Phosphatase 96 U/L (38-126); Anion Gap 9 mmol/L (4-12); Aspartate Amino Transferase 50 U/L (17-59); Bilirubin,Total 0.5 mg/dL (0.2-1.3); Blood Urea Nitrogen 37 mg/dL (9-20); Calcium 9.2 mg/dL (8.4-10.2); Carbon Dioxide 32 mmol/L (22-30); Chloride 102 mmol/L (98-107); Estimated Glomerular Filt Rate 45; Glucose 192 mg/dL (65-110); Potassium 3.5 mmol/L (3.4-5.0); Sodium 143 mmol/L (137-145)
[2024-09-25 19:14] LABS: Hemoglobin A1C 7.6 % (<5.7)
[2024-09-25 19:36] LABS: Add Urine Microscopic? NO; Appearance Urine Clear (Clear); Bilirubin Urine Negative (Negative); Blood Urine Negative (Negative); Color Urine Yellow (Yellow); Glucose Urine UA 3+ mg/dL (Negative); Ketones Urine Trace mg/dL (Negative); Leukocyte Esterase Ur Negative LEU/UL (Negative); Nitrate Urine Negative (Negative); Protein Urine Negative (Negative); Specific Grav Ur 1.033 (1.001-1.035); Urobilinogen Urine 0.2 mg/dL (<2.0)
[2024-09-25 20:19] LABS: Hemoglobin 17.3 g/dL (14.0-18.0); Mean Corpuscular HGB Conc 31.5 g/dl (32-36); Mean Corpuscular Hemoglobin 29.9 pg (26-34); Mean Platelet Volume 10.7 fl (7.4-10.4); Platelet Count Result 209 k/mm3 (150-375); Red Blood Count 5.79 M/mm3 (4.6-6.20); Red Cell Distribution Width 13.8 % (11.5-14.5); White Blood Count 16.4 K/mm3 (4.5-10.0)
== END 2024-09-25 14:42 | disposition home or self-care (01) ==
LOC: ANHBWCLAB 14:47
PROVIDERS: PCP Nurse Practitioner Adult Health; Visit Provider Nurse Practitioner Adult Health
DX: R42 Dizziness and giddiness (principal); R89.9 Unspecified abnormal finding in specimens from other organs, systems and tissues; E11.9 Type 2 diabetes mellitus without complications
CPT/HCPCS: 36415; 80053; 81003; 83036; 85027

== ENCOUNTER 2024-09-26 11:30 | Outpatient (CLI) | payer MEDICARE, SELFPAY ==
--- NOTE | ~2024-09-26 | XR_ITS ---
XR chest 2V 09/26/2024 11:49 Indication: Elevated white blood cell count. Shortness of breath. Procedure: 2 view chest Comparison: 07/19/2024 Findings: Subtle improvement of left basilar airspace disease which may represent residual pneumonia, atelectasis and/or scarring. No significant effusion. Heart size normal. Right lung clear. There is diffuse idiopathic skeletal hyperostosis (DISH) of the thoracic spine. Impression: 1: Improved left basilar airspace disease which may represent a combination of residual pneumonia, at electasis and/or scarring. Reviewed, dictated and finalized at location A. Impression: 1: Improved left basilar airspace disease which may represent a combination of residual pneumonia, atelectasis and/or scarring.
--- OUTSIDE RECORDS SUMMARY | 2024-09-26 11:33 | XMS_ITS | Encounter Summary ---
Author Organization [facility] Address [address] [place] [address] Phone Care Team Providers Care Instructional Developer Name Role Phone Mark De Los Santos MD Unavailable Unavailable Rand Tsang MD Unavailable [phone] Vicki Salmeron APRN Primary Care Provider [phone] Reason for Visit * Auth/Cert (Routine) Specialty Diagnoses / Procedures Referred By Contsigrid t Referred To Contact Referral ID Status Reason Start Date Expiration Date Visits Re quested Visits Authorized [id number] 1 1 Encounter Details Date Type Department Care Team (Late st Contact Info) Description 09/[facility]/2024 [facility] [address] [place] [address] Tere Paul, RN [place] CASE COMMUNICATION Social History Tobacco Use Types Packs/Day Years [...] documented as of this encounter Care Teams Instructional Developer Relationship Specialty Start Date End Date Vicki Salmeron APRN [address] [place] [address] PCP - General Advanced Practice Nurse 08/16/24 Mark De Los Santos MD Consulting Physician Urology 09/05/15 Rand Tsang MD Consulting Physician Dermatopathology 01/16/18 documented as of this encounter
--- OUTSIDE RECORDS SUMMARY | 2024-09-26 11:33 | XMS_ITS | Clinical Summary ---
Author Organization [facility] Address [address] [place] [address] Phone Care Team Providers Care Sybase Developer Name Role Phone Mark De Los Santos MD Unavailable Unavailable Rand Tsang MD Unavailable [phone] Vicki Salmeron APRN Primary Care Provider [phone] Allergies Active Allergy Reactions Criticality Noted Date [...] 1 tablet daily for 5 days. Rx: [id number] Active Active Problems Problem Noted Date Diagnosed Date Polyneuropathy associated with underlying diseas e 10/24/2019 '[id number]-[id number]' with signs of mal nutrition 02/02/2019 Pulmonary hypertension 05/02/2017 Overview (01/24/2018): 44mm Hg Rash 02/10/2017 Benign prostatic hyperplasia with urinary freque ncy 12/19/2015 Hypertension, essential Arthritis DM2 (diabetes mellitus, type 2) Hyperlipidemia Encounters Date Type Department Care Team Description 09/25/2024 11:30 AM CDT [facility] Visit [facility] [address] Tere Paul RN SN - OASIS DISCHARGE 09/25/2024 Home Care Visit [facility] [address] Tere Paul, RN CASE COMMUNICATION 09/11/2024 1:00 AM CDT Home Care Visit [facility] [address] Laura Valero RN SN - HOME VISIT 08/30/2024 1:00 AM CDT Home Care Visit [facility] [address] Tere Grier RN SN - HOME VISIT 08/24/2024 10:30 AM CDT Home Care Visit [facility] [address] Tere Grier RN SN - HOME VISIT 08/24/2024 9:30 AM CDT Home Care Visit [facility] [address] Renetta Alberts, PT PT - DISCIPLINE DISCHARGE 08/16/2024 2:30 PM CDT Home Care Visit [facility] [address] Zunilda Bustos, PRESS SETUP OPERATOR PT - HOME VISIT 08/16/2024 1:30 PM CDT Home Care Visit [facility] [address] Tere Paul RN SN - HOME VISIT 08/16/[address] [address] Radha Mcnair RN 08/14/2024 2:30 PM CDT Home Care Visit [facility] [address] Zunilda Bustos, PRESS SETUP OPERATOR PT - HOME VISIT 08/09/2024 11:30 AM CDT Home Care Visit [facility] [address] oRssi Ayala LPN SN - HOME VISIT 08/08/2024 [facility] [address] [place] [address] Antonina Miller OT TELEPHONE ENCOUNTER 08/07/2024 11:00 AM CDT Home Care Visit [facility] [address] Tammy Weldon, Student PT - INITIAL EVALUATION 08/04/2024 2:00 PM CDT [facility] [address] [place] [address] Tere Grier, ISABELL SN - OASIS START OF CARE 08/04/2024 Plan of Care Documentation [facility] [address] from Last 3 Months Immunizations Immunization Administration [...] 9:53 AM CDT Height 177.8 cm (5' 10) 08/04/2024 3:12 PM CDT Body Mass Index 36.73 08/04/2024 3:12 PM CDT Plan of Treatment Health Maintenance Due [...] Eye Exam 03/29/2024 03/29/2023 Diabetes: Hemoglobin A1c 10/12/202404/13/2 024, 08/30/2023, 06/10/2023, Additional history exists Influenza [...] (COMPREHENSIVE METABOLIC PANEL) Today 04/23/2019 10:44 AM PROGRAM STRATEGIST Pulmonary hypertension (HCC) Hypertension, essential Type 2 [...] 6.0 % 10/24/2019 12:53 PM CDT [facility] Est Average Glucose 168.6 mg/dL 10/24/2019 12:53 PM CDT [facility] Blood Venipuncture / Unknown 10/24/2019 10:30 AM CDT 10/24/2019 10:30 AM CDT Narrative [facility] - 10/24/2019 12:53 PM CDT HEMOGLOBIN A1C: DIABETIC PATIENTS: WELL-CONTROLLED: 6.2 - 7.0 INTERMEDIATE WELL-CONTROLLED: 7.0 - 9.0 POORLY-CONTROLLED: >9.0 us Carlos Moran MD CHEMISTRY ORDERABLES Holly leigh Result [facility] [address] [place] [address] * (ABNORMAL) CMP (COMPREHENSIVE METABOLIC PANEL) (04/23/2019 10:44 AM PROGRAM STRATEGIST) SODIUM 141 136 - 144 mmol/L 04/23/2019 12:52 PM [facility] POTASSIUM 3.4(L) 3.5 - 5.1 mmol/L 04/23/2019 12:52 PM [facility] CHLORIDE 102 100 - 110 mmol/L 04/23/2019 12:52 PM [facility] CO2, VENOUS 26 22 - 32 mmol/L 04/23/2019 12:52 PM [facility] ANION GAP 16.4 8.0 - 20.0 mmol/L 04/23/2019 12:52 PM [facility] GLUCOSE 128(H) 70 - 99 mg/dL 04/23/2019 12:52 PM [facility] BUN 14 8 - 23 mg/dL 04/23/2019 12:52 PM [facility] CREATININE, BLOOD 1.01 0.80 - 1.30 mg/dL 04/23/2019 12:52 PM [facility] BUN/CREATININE RATIO 14 12 - 20 ratio 04/23/2019 12:52 PM [facility] TOTAL PROTEIN 7.4 6.0 - 8.3 g/dL 04/23/2019 12:52 PM [facility] ALBUMIN 3.9 3.5 - 5.2 g/dL 04/23/2019 12:52 PM [facility] Comment: The colormetric methods used for the determination of Albumin may lead to falsely elevated test results in patients suffering from renal failure or insufficiency due to interference with other proteins. A/G RATIO 1.1 1.0 - 2.0 04/23/2019 12:52 PM PROGRAM STRATEGIST [facility] CALCIUM 8.9 8.9 - 10.3 mg/dL 04/23/2019 12:52 PM [facility] T BILI 0.3 <=1.2 mg/dL 04/23/2019 12:52 PM PROGRAM STRATEGIST [facility] SGOT (AST) 16 <=40 U/L 04/23/2019 12:52 PM [facility] SGPT (ALT) 19 <=41 U/L 04/23/2019 12:52 PM PROGRAM STRATEGIST [facility] ALKALINE PHOSPHATASE 102 40 - 130 U/L 04/23/2019 12:52 PM PROGRAM STRATEGIST [facility] GFR, EST. NONAFRICAN >60 >=60 04/23/2019 12:52 PM PROGRAM STRATEGIST [facility] GFR, EST. >60 >=60 019 12:52 PM [facility] Comment: Creatinine Clearance is the preferred criteria for selecting drug dose adjustments in renally impaired patients. The GFR is provided as additional pertinent clinical information. GFR is reported in mL/min/1.73 sq m. Blood specimen (specimen) Venipuncture / Unknown 04/23/2019 10:44 AM PROGRAM STRATEGIST 04/23/2019 10:44 AM PROGRAM STRATEGIST us Carlos Moran MD CHEMISTRY ORDERABLES Holly l Result [facility] [address] [place] [address] * (ABNORMAL) PSA DIAGNOSTIC,TOTAL (02/19/2019 10:38 AM CDT) PSA, TOTAL (PROSTATIC SPECIFIC ANTIGEN) 6.36(H) <=4.00 ng/mL 02/19/2019 1:24 PM CDT [facility] Blood specimen (specimen) Venipuncture / Unknown 02/19/2019 10:38 AM CDT 02/19/2019 12:34 PM CDT Narrative [facility] - 02/19/2019 1:24 PM CDT PSA NOTE: The PSA value should be used in conjunction with information available from clinical evaluation and other diagnostic procedures. Michelet Moran MD CHEMISTRY ORDERABLES Final Result [facility] [address] [place] [address] from Last 3 Months or Most Recently Relevant to Health Maintenance Insurance [facility] Advance Directives * Full Code (Latest Code Status on File) Date Activated Date Inactivated Comments 08/07/2024 2:22 PM Care Teams Sybase Developer Relationship Specialty Start Date End Date Vicki Salmeron APRN [address] [place] [address] PCP - General Advanced Practice Nurse 08/16/24 Mark De Los Santos MD Consulting Physician Urology 09/05/15 Rand Tsang MD Consulting Physician Dermatopathology 01/16/18
--- OUTSIDE RECORDS SUMMARY | 2024-09-26 11:33 | XMS_ITS | Encounter Summary ---
Author Organization [facility] Healthcare Address [address] [place] [address] Care Team Providers Care Power Plant Operator Apprentice Name Role Phone Nicolas Jung MD Unavailable [phone] Louie Lomeli MD Unavailable [phone] Melchor Woodard MD Primary Care Provider [phone] Jairo Sparrow MD Unavailable [phone] Encounter Details Date Type Department Care Team (Late st Contact Info) Description 08/09/2024 Documentation [facility] Case Management [address] [place] [address] Rodriguez Goldstein RN Social History Tobacco Use [...] materials from doctor or pharmacy Sometimes 01/17/2024 [facility] Utilities Answer Date Recorded In the [...] often do you attend chur ch or anabaptism services? Never 07/31/2024 Do you belong to any clubs o r organizations such as sikhism groups, unions, fraternal or athletic groups, or [...] any time in the past 12 m [facility], were you homeless or living in [...] on file Legal Sex Male 12:23 AM FILAMENT CUTTER Gender Identity Not on file Sexual Orientation Not on file documented as of this encounter Plan of Treatment Not on file documented as of this encounter Visit Diagnoses Not on filedocumented in this encounter Care Teams Power Plant Operator Apprentice Relationship Specialty Start Date End Date Melchor Woodard MD PCP - General Family Practice 07/30/22 Nicolas Jung MD Surgeon Orthopedic Surgery 08/05/21 Louie Lomeli MD Consulting Physician Cardiology 12/23/21 Jairo Sparrow MD [address] [place] [place] [address] Consulting Physician Neurology 12/14/22 documented as of this encounter
--- OUTSIDE RECORDS SUMMARY | 2024-09-26 11:33 | XMS_ITS | Clinical Summary ---
Author Organization [facility] Address [address] [place] [address] Care Team Providers Care Outpatient Receptionist Name Role Phone Melchor Woodard MD Primary Care Provider [phone] Allergies Active Allergy Reactions Criticality Noted Date Comments Ceftriaxone Nausea and Vomiting Low 09/23/2021 Noawclx-Apw-Klx Reductase Inhibitors Other (See Comments) Low 01/26/2018 [...] Flex Sig/CT Colonography Q 5 years 1997 DIABETES ANNUAL FOOT EXAM 10/28/2022 10/28/2021 INFLUENZA VACCINE (#1) 2023 , 03/18/2020, 02/02/2019, Additional history exists COVID-19 Vaccine (2023-2 5 season) 2024 03/25/2021, 07/08/2020, 06/10/2020 DIABETES HBA1C Q 6 MONTHS 10/12/2024 04/13/2024, RSV VACCINE (60+ or ) (1 - 1-dose 75+ series) 2027 DTAP/TDAP/TD VACCINES (3 - T d or Tdap) 02/12/2030 02/13/2020, 12/11/2015 PNEUMOCOCCAL VACCINE 50+ YEARS Completed 09/27/2017 , 03/12/2016 ZOSTER VACCINE Completed 03/19/2020, 11/2018, 03/27/2018 Insurance [facility] [id number] Care Teams Outpatient Receptionist Relationship Specialty Start Date End Date Melchor Woodard MD PCP - General Family Practice 09/28/22
--- OUTSIDE RECORDS SUMMARY | 2024-09-26 11:33 | XMS_ITS | Encounter Summary ---
Author Organization [facility] Address [address] [place] [address] Phone Care Team Providers Care Locker Attendant Name Role Phone Carlos Moran MD Primary Care Provider [phone] Mark De Los Santos MD Unavailable Unavailable Rand Tsang MD Unavailable [phone] Provider, None Primary Care Provider UnavailSohail Kc MD Primary Care Provider [phone] Carlos Moran MD Primary Care Provider [phone] Sohail Gould MD Primary Care Provider [phone] Vicki Salmeron APRN Primary Care Provider [phone] Reason for Visit * Reason Comments Medication Refill Encounter Details Date Type Department Care Team (Late st Contact Info) Description 03/21/2020 Refill [facility] - Primary Care - [place] [address] [place] [address] Carlos Moran MD [address] [place], [place] [id number] Medication Refill Social History Tobacco Use Types [...] COVID-19? No / Unsure 03/13/2020 2:58 PM MANAGER AUTOMOTIVE documented as of this encounter Miscellaneous Notes * Telephone Encounter - Carlos Moran MD - 03/21/2020 10:53 AM MANAGER AUTOMOTIVE Refill request approved. GER AUTOMOTIVE * Telephone Encounter - Tavia Pablo [facility] - 03/21/2020 10:42 AM MANAGER AUTOMOTIVE Medication failed the protocol, provider to review [...] weeks ago Acute pain of left knee [facility] Carlos Moran MD 1 month ago Cellulitis of mouth [facility] Medical [facility] Carlos Moran MD 1 month ago Polyneuropathy associated with underlying disease (HCC) [facility] Carlos Moran MD 4 months ago Hypertension, essential [facility] Moran MD 8 months ago Urinary pain [facility] Carlos Moran MD Upcoming Appointments Future Appointments In 1 month Fox Shearer MD [facility] Medical [facility] - Neurology [facility] In 1 month Carlos Moran MD [facility] FREY UNIVERSITY ADMINISTRATOR - Recent and Past Visits Recent Visits Date Type Provider Dept 02/28/20 Office Visit Carlos Moran MD [facility] 02/18/20 Office Visit Carlos Mroan, [facility] 02/05/20 [facility] 10/24/19 Office Visit Carlos Moran, MD [facility] 07/13/19 Office Visit Carlos Moran, MD [facility] 04/23/19 Office Visit Carlos Moran, [facility] 02/12/19 Office Visit Carlos Moran, [facility] Showing recent visits within past 460 days with a meds authorizing provider and meeting all other requirements Future Appointments Date Type Provider Dept 04/24/20 Appointment Carlos Moran MD [facility] Showing future appointments within next 90 days with a meds authorizing provider and meeting all other requirements GER AUTOMOTIVE documented in this encounter Plan of Treatment Not on file documented as of this encounter Visit Diagnoses Not on filedocumented in this encounter Additional Health Concerns Assessment Noted Time PHQ-9 Depression Total Score: 0 07/13/19 10:00 AM CDT documented as of this encounter Care Teams Locker Attendant Relationship Specialty Start Date End Date Carlos Moran MD [address] [place] [address] PCP - General Internal Medicine 01/28/15 04/21/20 Provider, None MD PCP - General 04/22/20 08/04/20 Sohail Gould MD [address] [place] [address] PCP - General Family Medicine 08/05/20 10/06/20 Carlos Moran MD [address] [place] [address] PCP - General Internal Medicine 10/07/20 08/19/21 Sohail Gould MD [address] [place] [address] PCP - General Family Medicine 08/20/21 08/15/24 Vicki Salmeron APRN [address] [place] [address] [place] [address] PCP - General Advanced Practice Nurse 08/16/24 Mark De Los Santos MD [address] [place] [address] Consulting Physician Urology 09/05/15 Rand Tsang MD [address] [place] [address] Consulting Physician Dermatopathology 01/16/18 documented as of this encounter
--- OUTSIDE RECORDS SUMMARY | 2024-09-26 11:33 | XMS_ITS | Encounter Summary ---
Author Organization [facility] Address [address] [place] [address] Care Team Providers Care Senior Insight Manager Name Role Phone Carlos Moran MD Primary Care Provider [phone] Encounter Details Date Type Department Care Team (Late Contact Info) Description 04/13/2024 Lab Requisition [facility] [address] [place] [address] [place] [address] Social History Tobacco Use Types Packs/Day Years Used Date Smoking Tobacco: Former Smokeless Tobacco: Never Alcohol Use Standard Drinks/Week Comments No 0 (1 standard drink = 0.6 oz pur e alcohol) Sex and Gender Information Value Date Recorded Sex Assigned at Not on file Legal Sex Male 11:59 AM INSURANCE CLAIMS PROCESSOR Gender Identity Not on file Sexual Orientation Not on file documented as of this encounter Plan of Treatment Upcoming Encounters Date Type Department Care Team (Late Contact Info) Description 12/20/2024 11:00 AM CDT Appointment [facility] [address] [address] Lisa Singh MD [address] [phone] documented as of this encounter Procedures Procedure Name Priority Date/Time Associated Diagnosis Comments TSH REFLEX FREE T4 STAT 04/13/2024 3: 21 PM INSURANCE CLAIMS PROCESSOR HEMOGLOBIN A1C STAT 04/13/2024 3:21 PM INSURANCE CLAIMS PROCESSOR CBC W AUTO DIFFERENTIAL STAT 04/13/2024 3:21 PM INSURANCE CLAIMS PROCESSOR COMPREHENSIVE METABOLIC PANEL STAT 04/13/2024 3:21 PM INSURANCE CLAIMS PROCESSOR LIPID PROFILE STAT 04/13/2024 3:21 PM INSURANCE CLAIMS PROCESSOR documented in this encounter Results * (ABNORMAL) HEMOGLOBIN A1C (04/13/2024 3:21 PM INSURANCE CLAIMS PROCESSOR) Hemoglobin A1c 7.3(H) <5.7 % 04/13/2024 3:47 PM INSURANCE CLAIMS PROCESSOR [facility] Estimated Average Glucose 163 mg/dL 04/13/2024 3:47 PM INSURANCE CLAIMS PROCESSOR [facility] Blood BLOOD SPECIMEN / Unknown 04/13/2024 3:21 PM INSURANCE CLAIMS PROCESSOR 04/13/2024 3:25 PM INSURANCE CLAIMS PROCESSOR [facility] - 04/13/2024 3:47 PM INSURANCE CLAIMS PROCESSOR HbA1c Interpretation: Normal: < 5.7% Pre-diabetes: [...] LAB - CHEMISTRY ORDERABLES Holly lu Result [facility] [address] [place] [address] * (ABNORMAL) LIPID PROFILE (04/13/2024 3:21 PM INSURANCE CLAIMS PROCESSOR) Cholesterol 173 <200 mg/dL 04/13/2024 3:48 PM INSURANCE CLAIMS PROCESSOR [facility] Triglycerides 179(H) <150 mg/dL 04/13/2024 3:48 PM INSURANCE CLAIMS PROCESSOR [facility] HDL Cholesterol 26(L) >40 mg/dL 3:48 PM INSURANCE CLAIMS PROCESSOR [facility] LDL Calculated 111 <130 mg/dL 04/13/2024 3:48 PM INSURANCE CLAIMS PROCESSOR [facility] VLDL Calculated 36(H) <=30 mg/dL 3:48 PM INSURANCE CLAIMS PROCESSOR [facility] Chol HDL Ratio 6.7(H) <4.5 04/13/2024 3:48 PM INSURANCE CLAIMS PROCESSOR [facility] LDL/HDL Ratio 4.3 <5.0 04/13/2024 3:48 PM INSURANCE CLAIMS PROCESSOR [facility] Blood BLOOD SPECIMEN / Unknown Venipuncture / Unknown 04/13/2024 3:21 PM INSURANCE CLAIMS PROCESSOR 04/13/2024 3:25 PM INSURANCE CLAIMS PROCESSOR [facility] LAB - CHEMISTRY ORDERABLES Holly l Result Performing Organization Address City/[facility]/ZIP Co de Phone Number [facility] [address] [place] [address] * TSH REFLEX FREE T4 (04/13/2024 3:21 PM INSURANCE CLAIMS PROCESSOR) Pathologist [facility] TSH 3.335 0.350 - 4.940 uIU/mL 04/13/2024 4:06 PM INSURANCE CLAIMS PROCESSOR [facility] Blood BLOOD SPECIMEN / Unknown Venipuncture / Unknown 04/13/2024 3:21 PM INSURANCE CLAIMS PROCESSOR 04/13/2024 3:25 PM INSURANCE CLAIMS PROCESSOR [facility] LAB - CHEMISTRY ORDERABLES Holly l Result [facility] [address] [place] [address] * (ABNORMAL) COMPREHENSIVE METABOLIC PANEL (04/13/2024 3:21 PM INSURANCE CLAIMS PROCESSOR) [facility] Glucose 193(H) 70 - 99 mg/dL 04/13/2024 3:48 PM [facility] Sodium 140 136 - 145 mmol/L 04/13/2024 3:48 PM [facility] Potassium 3.4(L) 3.5 - 5.1 mmol/L 04/13/2024 3:48 PM [facility] Chloride 104 98 - 107 mmol/L 04/13/2024 3:48 PM [facility] CO2 26 22 - 29 mmol/L 04/13/2024 3:48 PM [facility] Calcium 9.6 8.4 - 10.4 mg/dL 04/13/2024 3:48 PM [facility] Anion Gap 10 6 - 16 mmol/L 04/13/2024 3:48 PM [facility] BUN 21 7 - 26 mg/dL 04/13/2024 3:48 PM [facility] Creatinine 1.51(H) 0.72 - 1.25 mg/dL 04/13/2024 3:48 PM [facility] Alkaline Phosphatase 109 40 - 150 U/L 04/13/2024 3:48 PM [facility] ALT 14 0 - 55 U/L 04/13/2024 3:48 PM [facility] AST 13 5 - 34 U/L 04/13/2024 3:48 PM [facility] Protein Total 6.9 6.4 - 8.3 gm/dL 04/13/2024 3:48 PM [facility] Albumin 3.4 3.4 - 5.0 gm/dL 04/13/2024 3:48 PM [facility] Bilirubin Total 0.3 0.2 - 1.2 mg/dL 04/13/2024 3:48 PM [facility] eGFR by CKD-EPI 49(L) >=90 mL/min/1.7 3 m2 04/13/2024 3:48 PM [facility] Blood BLOOD SPECIMEN / Unknown Venipuncture / Unknown 04/13/2024 3:21 PM INSURANCE CLAIMS PROCESSOR 04/13/2024 3:25 PM [facility] LAB - CHEMISTRY ORDERABLES Holly l Result [facility] [address] [place] [address] * (ABNORMAL) CBC WITH DIFFERENTIAL (04/13/2024 3:21 PM INSURANCE CLAIMS PROCESSOR) WBC 11.8(H) 4.0 - 10.7 x10E9/L 04/13/2024 3:32 PM [facility] RBC Count 4.77 4.30 - 5.80 x10E12/L 04/13/2024 3:32 PM [facility] Hemoglobin 13.9 13.3 - 17.5 g/dL 04/13/2024 3:32 PM [facility] Hematocrit 44.8 38.7 - 51.1 % 04/13/2024 3:32 PM [facility] MCV 93.9 80.0 - 98.0 fL 04/13/2024 3:32 PM [facility] MCH 29.1 26.7 - 33.6 pg 04/13/2024 3:32 PM [facility] MCHC 31.0(L) 31.7 - 36.3 g/dL 04/13/2024 3:32 PM [facility] RDW-CV 13.2 11.3 - 14.8 % 04/13/2024 3:32 PM [facility] Platelet Count 253 150 - 420 x10E9/L 04/13/2024 3:32 PM [facility] MPV 10.2 7.8 - 11.4 fL 04/13/2024 3:32 PM [facility] Neutrophil % 79.0(H) 41.0 - 74.0 % 04/13/2024 3:32 PM [facility] Lymphocyte % 10.8(L) 17.0 - 47.0 % 04/13/2024 3:32 PM [facility] Monocyte % 7.3 3.0 - 11.0 % 04/13/2024 3:32 PM [facility] Eosinophil % 1.5 0.0 - 7.0 % 04/13/2024 3:32 PM [facility] Basophil % 0.3 0.0 - 1.6 % 04/13/2024 3:32 PM [facility] Immature Granulocytes % 1.1(H) 0.0 - 1.0 % 04/13/2024 3:32 PM INSURANCE CLAIMS PROCESSOR [facility] Neutrophil Absolute 9.32(H) 1.60 - 7.50 x10E9/L 04/13/2024 3:32 PM INSURANCE CLAIMS PROCESSOR [facility] Lymphocyte Absolute 1.27 1.00 - 4.40 x10E9/L 04/13/2024 3:32 PM INSURANCE CLAIMS PROCESSOR [facility] Monocyte Absolute 0.86 0.15 - 1.00 x10E9/L 04/13/2024 3:32 PM INSURANCE CLAIMS PROCESSOR [facility] Eosinophil Absolute 0.18 0.00 - 0.60 x10E9/L 04/13/2024 3:32 PM INSURANCE CLAIMS PROCESSOR [facility] Basophil Absolute 0.04 0.00 - 0.13 x10E9/L 04/13/2024 3:32 PM INSURANCE CLAIMS PROCESSOR [facility] Blood BLOOD SPECIMEN / Unknown 04/13/2024 3:21 PM INSURANCE CLAIMS PROCESSOR 04/13/2024 3:25 PM INSURANCE CLAIMS PROCESSOR [facility] LAB - HEMATOLOGY ORDERABLES Fin al Result Performing Organization Address City/State/[facility] Co de Phone Number [facility] [address] [place], [place] [id number] documented in this encounter Visit Diagnoses Not on filedocumented in this encounter Care Teams Senior Insight Manager Relationship Specialty Start Date End Date Carlos Moran MD PCP - General Internal Medicine 04/24/17 documented as of this encounter
--- OUTSIDE RECORDS SUMMARY | 2024-09-26 11:33 | XMS_ITS | Encounter Summary ---
Author Organization [facility] Healthcare Address [address] [place] [address] Care Team Providers Care Bindery Supervisor Name Role Phone Nicolas Jung MD Unavailable Louie Lomeli MD Unavailable [phone] Melchor Woodadr MD Primary Care Provider [phone] Jairo Sparrow MD Unavailable [phone] Maria Eugenia Navarrete [facility] Unavailable [phone] Encounter Details Date Type Department Care Team (Late st Contact Info) Description 01/24/2023 Orders Only [facility] [address] [address] [address] [place] [address] Miah Rodrigues MA Pre-op testing [...] week 12/24/2021 How often do you attend [facility] or orthodoxy services? Never 12/24/2021 Do you belong to [...] place to sleep or slept in a residential (including now)? No 12/24/2021 Sex and Gender Information Value Date Recorded Sex Assigned at Not on file Legal Sex Male 12:23 AM AUDIO/VIDEO TECHNICIAN Gender Identity Not on file Sexual Orientation [...] COVID: Suspected 06/12/2024 06/12/2024 06/12/2024 4:34 PM AUDIO/VIDEO TECHNICIAN COVID: Suspected 07/30/2024 07/30/2024 07/30/2024 4:38 PM CDT documented as of this encounter Care Teams Bindery Supervisor Relationship Specialty Start Date End Date Melchor Woodard MD PCP - General Family Practice 07/30/22 Nicolas Jung MD Surgeon Orthopedic Surgery 08/05/21 Louie Lomeli MD Consulting Physician Cardiology 12/23/21 Jairo Sparrow MD [address] [place] [address] [place] [address] Consulting Physician Neurology 12/14/22 Maria Eugenia Navarrete, [address] [place] [address] Pharmacist Pharmacy 03/12/24 03/12/24 documented as of this encounter
--- OUTSIDE RECORDS SUMMARY | 2024-09-26 11:33 | XMS_ITS | Encounter Summary ---
Author Organization [facility] Healthcare Address [address] [place] [address] Care Team Providers Care Mild Disabilities Teacher Name Role Phone Nicolas Jung MD Unavailable [phone] Louie Lomeli MD Unavailable [phone] Melchor Woodard MD Primary Care Provider [phone] Jairo Sparrow MD Unavailable [phone] NavarreteMaria Eugenia quiñones formerly [facility] Unavailable [phone] Encounter Details Date Type Department Care Team (Late st Contact Info) Description 06/02/2023 Telephone [facility] [address] [facility] [address] [place] [address] Jonathan Miranda MD [address] [place], [place] [address] Social History Tobacco Use Types Packs/Day Years [...] week 02/04/2023 How often do you attend [facility] or taoist services? Never 02/04/2023 Do you belong to any clubs o r organizations such as gnosticist groups, unions, fraternal or athletic groups, or [...] on file Legal Sex Male 12:23 AM VOLUNTEER RECRUITER Gender Identity Not on file Sexual [...] COVID: Suspected 06/12/2024 06/12/2024 06/12/2024 4:34 PM VOLUNTEER RECRUITER COVID: Suspected 07/30/2024 07/30/2024 07/30/2024 4:38 PM CDT documented as of this encounter Care Teams Mild Disabilities Teacher Relationship Specialty Start Date End Date Melchor Woodard MD PCP - General Family Practice 07/30/22 Nicolas Jung MD Surgeon Orthopedic Surgery 08/05/21 Louie Lomeli MD Consulting Physician Cardiology 12/23/21 Jairo Sparrow MD [address] [place] [address] [address] [facility] [place] [address] Consulting Physician Neurology 12/14/22 Maria Eugenia Navarrete, [address] [place] [address] Pharmacist Pharmacy 03/12/24 03/12/24 documented as of this encounter
--- OUTSIDE RECORDS SUMMARY | 2024-09-26 11:33 | XMS_ITS | Encounter Summary ---
Author Organization [facility] Address [address] [place] [address] Phone Care Team Providers Care Hospice Home Care Coordinator Name Role Phone Mark De Los Santos MD Unavailable Unavailable Rand Tsang MD Unavailable Carlos Moran MD Primary Care Provider [phone] Sohail Gould MD Primary Care Provider [phone] Vicki Salmeron APRN Primary Care Provider [phone] Reason for Visit * Reason Comments Medication Refill Encounter Details Date Type Department Care Team (Late st Contact Info) Description 01/26/2021 Refill [facility] - Primary Care - [place] [address] [place] [address] Carlos Moran MD [address] [place] [address] Medication Refill Social History Tobacco [...] documented as of this encounter Care Teams Hospice Home Care Coordinator Relationship Specialty Start Date End Date Carlos Moran MD [address] [place] [address] PCP - General Internal Medicine 10/07/20 08/19/21 Sohail Gould MD [address] [place] [address] [place] [address] PCP - General Family Medicine 08/20/21 08/15/24 Vicki Salmeron APRN [address] [place] [address] PCP - General Advanced Practice Nurse 08/16/24 Mark De Los Santos MD Consulting Physician Urology 09/05/15 Rand Tsang MD Consulting Physician Dermatopathology 01/16/18 documented as of this encounter
--- OUTSIDE RECORDS SUMMARY | 2024-09-26 11:33 | XMS_ITS | Encounter Summary ---
Author Organization [facility] Healthcare Address [address] [place] [address] Care Team Providers Care Roll Off Driver Name Role Phone Nicolas Jung MD Unavailable [phone] Louie Lomeli MD Unavailable Melchor Woodard MD Primary Care Provider [phone] Jairo Sparrow MD Unavailable [phone] Maria Eugenia Navarrete [facility] Unavailable [phone] Encounter Details Date Type Department Care Team (Late st Contact Info) Description 06/02/2023 Telephone [facility] [address] [place] [address] Jonathan Miranda MD [address] [place], [place] [address] Social History Tobacco Use Types Packs/Day Years [...] How often do you attend chur or lutheran services? Never 02/04/2023 Do you belong to any clubs o r organizations such as mandaen groups, unions, fraternal or athletic groups, or [...] on file Legal Sex Male 12:23 AM DEPOSIT REFUND CLERK Gender Identity Not on file Sexual [...] COVID: Suspected 06/12/2024 06/12/2024 06/12/2024 4:34 PM DEPOSIT REFUND CLERK COVID: Suspected 07/30/2024 07/30/2024 07/30/2024 4:38 PM CDT documented as of this encounter Care Teams Roll Off Driver Relationship Specialty Start Date End Date Melchor Woodard MD PCP - General Family Practice 07/30/22 Nicolas Jung MD Surgeon Orthopedic Surgery 08/05/21 Louie Lomeli MD Consulting Physician Cardiology 12/23/21 Jairo Sparrow MD [address] [place] [address] [address] [facility] [place] [address] Consulting Physician Neurology 12/14/22 Maria Eugenia Navarrete, [address] [place] [address] Pharmacist Pharmacy 03/12/24 03/12/24 documented as of this encounter
--- OUTSIDE RECORDS SUMMARY | 2024-09-26 11:33 | XMS_ITS | Clinical Summary ---
Author Organization [facility] Address [address] [facility] [place] [address] Care Team Providers Care Bag Making Machine Tender Name Role Phone Carlos Moran MD Primary Care Provider [phone] Source Comments [facility],non-owned Affiliates and Associated Physician Practices is amultiple site organization consisting of ambulatory clinics and hospital sitesin [place], [place], [place]. This disclosure is being madepursuant to the Care Everywhere program and may not contain all information available regarding this patient. Last updated [employer] [facility] Allergies No known active allergies Medications * [...] on file Legal Sex Male 11:59 AM UNMANNED EQUIPMENT OPERATOR Gender Identity Not on file Sexual Orientation Not on file Last Filed Vital Signs Vital Sign Reading Time Taken Comments Blood Pressure 136/78 04/24/2017 10:32 AM UNMANNED EQUIPMENT OPERATOR Pulse 78 04/24/2017 10:32 AM UNMANNED EQUIPMENT OPERATOR Temperature 36.8 C (98.2 F) 04/24/2017 10:32 AM UNMANNED EQUIPMENT OPERATOR Respiratory Rate - - Oxygen Saturation - - Inhaled Oxygen Concentration - - Weight 104.8 kg (231 lb) 04/24/2017 10:32 AM UNMANNED EQUIPMENT OPERATOR Height 177.8 cm (5' 10) 04/24/2017 10:32 AM UNMANNED EQUIPMENT OPERATOR Body Mass Index 33.15 04/24/2017 10:32 AM UNMANNED EQUIPMENT OPERATOR Plan of Treatment Upcoming Encounters Date Type Department Care Team (Late st Contact Info) Description 12/20/2024 11:00 AM CDT Appointment [facility] [address] [address] Lisa Singh MD [address] [place] [id number] Health Maintenance Due Date Last Done Comments [...] Comments LIPID PROFILE STAT 04/13/2024 3:21 PM UNMANNED EQUIPMENT OPERATOR from Last 3 Months or Most Recently Relevant to Health Maintenance Results * (ABNORMAL) LIPID PROFILE (04/13/2024 3:21 PM UNMANNED EQUIPMENT OPERATOR) Cholesterol 173 <200 mg/dL 04/13/2024 3:48 PM UNMANNED EQUIPMENT OPERATOR [facility] Triglycerides 179(H) <150 mg/dL 04/13/2024 3:48 PM UNMANNED EQUIPMENT OPERATOR [facility] HDL Cholesterol 26(L) >40 mg/dL 4 3:48 PM UNMANNED EQUIPMENT OPERATOR [facility] LDL Calculated 111 <130 mg/dL 04/13/2024 3:48 PM UNMANNED EQUIPMENT OPERATOR [facility] VLDL Calculated 36(H) <=30 mg/dL 4 3:48 PM UNMANNED EQUIPMENT OPERATOR [facility] Chol HDL Ratio 6.7(H) <4.5 04/13/2024 3:48 PM UNMANNED EQUIPMENT OPERATOR [facility] LDL/HDL Ratio 4.3 <5.0 04/13/2024 3:48 PM UNMANNED EQUIPMENT OPERATOR [facility] Blood BLOOD SPECIMEN / Unknown Venipuncture / Unknown 04/13/2024 3:21 PM UNMANNED EQUIPMENT OPERATOR 04/13/2024 3:25 PM UNMANNED EQUIPMENT OPERATOR [facility] - CHEMISTRY ORDERABLES Holly l Result [facility] [address] [place] [address] from Last 3 Months or Most Recently Relevant to Health Maintenance Insurance [employer] MANAGED MEDICARE ADV Care Teams Bag Making Machine Tender Relationship Specialty Start Date End Date Carlos Moran MD PCP - General Internal Medicine 04/24/17
--- OUTSIDE RECORDS SUMMARY | 2024-09-26 11:33 | XMS_ITS | Encounter Summary ---
Author Organization [facility] Address [address] [place] [address] Phone Care Team Providers Care Package Dyer Name Role Phone Mark De Los Santos MD Unavailable Unavailable Rand Tsang MD Unavailable [phone] Vicki Salmeron APRN Primary Care Provider [phone] Reason for Visit * Auth/Cert (Routine) Specialty Diagnoses / Procedures Referred By Alcira t Referred To Contact Referral ID Status Reason Start Date Expiration Date Visits Re quested Visits Authorized [id number] 1 1 Encounter Details Date Type Department Care Team (Late st Contact Info) Description 09/25/2024 11:30 AM CDT Home Care Visit [address] [address] Tere Paul [place] SN - OASIS DISCHARGE Social History Tobacco Use Types Packs/Day Years Used Date Smoking Tobacco: Former Cigarettes 1 1 961 - 1985 Smokeless Tobacco: Never [...] Plan Visit Details Visit Type -SN - OASIS DISCH ARGE Discipline -Residential Problems Problem Description Start Date Status Goals Interve ntions DM DEHYDRATION Disciplines: Skilled Clinicians 08/04/2024 Resolved on 09/25/2024 1 goal linked to scheduled/docume nted intervention 1 goal intervention scheduled/documen theresa in this visit SN SOC GENERAL ORDERS Disciplines: Residential SN General Orders 08/04/2024 Resolved on 09/25/2024 1 goal linked to scheduled/docume nted intervention 2 goal interventions scheduled/documen theresa in this visit Goals Goal Associated Problem Outcome Goal Met? Visit Notes Dehydration Description: Patient will verbalize understanding of signs and symptoms of dehydration and methods to prevent. Target date: 10/02/24 DM DEHYDRATION No SN General Description: After assessing the patient and discussing the patient's goals the following were identified: 1. Patient will demonstrate effective self-care management including understanding of ordered medication regimen, signs and symptoms to report, and recommended follow up with physician. Target date: 10/02/24 2. Patient will verbalize understanding of medication regimen including name, actions, reason for use, evaluation of effectiveness, side effects, and administration instructions. Target date: 10/02/24. 3. Patient centered long-term goal pain managment, fall prevention, medication education. Target date: 10/02/24 SN SOC GENERAL ORDERS No Interventions Intervention Associated Problem/Goal Status Variance Visit Notes Dehydration (O) Description: Assess for dehydration and provide education regarding signs and symptoms of dehydration and methods to prevent. Problem:DM DEHYDRATION Goal:Dehydration Scheduled Notice Of Discharge Description: Complete Notice of Discharge documentation three days prior to agency discharge. Problem:SN SOC GENERAL ORDERS Goal:SN General Completed Notice of discharge signed by: n/a Patient will not return phone calls for in person discharge. Agrees with plan for discharge on 09/25/24. Vicki Salmeron APRN notified via CC note and agrees with discharge plan. SN Discharge Problem:SN SOC GENERAL ORDERS Goal:SN General Completed Medication list reviewed and left in home. Medicare notice of discharge signed on n/a not an in person visit. Discharge Instructions provided to Patient. Response: will mail d/c instructions to patient documented in this encounter Care Teams Package Dyer Relationship Specialty Start Date End Date Vicki Salmeron APRN [address] [place] [address] PCP - General Advanced Practice Nurse 08/16/24 Mark De Los Santos MD Consulting Physician Urology 09/05/15 Rand Tsang MD Consulting Physician Dermatopathology 01/16/18 documented as of this encounter
--- OUTSIDE RECORDS SUMMARY | 2024-09-26 11:33 | XMS_ITS | Continuity of Care Document ---
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 Role Phone Vicky MANZANO Kita Unavailable Unavailable Allergies, Adverse Reactions, Alerts Substance Reaction Status Criticality No Known Allergies Active No Inform ation Medications Medication Instructions Dosage Effective Dates (start - stop) Status Comments Brilinta 90 mg tablet take 1 tablet by oral route 2 times every day 90 MG - Active Topamax 50 mg tablet take 1 tablet by oral route 2 times every day 50 MG - Active Nitro-Bid [...] Diagnoses Date Provider Providers Copied on Encounter [facility], [address], [place], [place], [address], [place] tel:[phone] SEC Arnoldo ECKERT Professional No Information 3 Vicky JOSE JUAN Kita. [address], [address], [place], [place], [address], [place]. 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 [facility] [address], [address], [place], [place], [address], [place]. tel:[phone] Referring Provider: Kita Perry OD L, [facility] [address], [place], [address] . tel:[phone] [facility], [facility] [address], [place], [place], [address], [place] tel:[phone] SEC Arnoldo ECKERT Professional Cataract Evaluation (chief complaint) Pseudophakia of right eyeCombined forms of age-related cataract, left eyeXT (exotropia)Pt osis of both eyelids 0 1 Waqar Pace. [address], [facility] [address], [place], [place], [address], [place]. tel:[phone] Referring Provider: Sanjeev Barker, [address] [facility], [place], [address] . tel:[phone] Office/outpa tient Visit, Est [facility], [facility] [facility] [address], [place], [place], [address], [place] tel:[phone] SEC Arnoldo ECKERT Professional WIE (chief complaint) Abrasion of right eyelid, initial encounterEdem a of right upper eyelid Oct-0 0 Waqar Pace. [address], [facility] [address], [place], [place], [address], [place]. tel:[phone] Referring Provider: Sanjeev Barker, [address], [place], [address] . tel:[phone] [facility] [place], [address], [place], [place], [address], [place] tel:[phone] SEC Arnoldo ECKERT Professional 1 month s/p PCIOL (chief complaint) Post op visit 0 Juan F Lam. [address] [facility], [address]th [address], [place], [address], [place]. tel:[phone] Referring Provider: Sanjeev Barker, [address], [place], [address] . tel:[phone] Office/outpa tient Visit, Est [facility], [address], [place], [place], [address], [place] tel:[phone] SEC Arnoldo ECKERT Professional WIE (chief complaint) Allergic conjunctiviti s of both eyes 0 Waqar Pace. [address], [address], [place], [place], [address], [place]. tel:[phone] Referring Provider: Sanjeev Barker, [address], [place], [address] . tel:[phone] [facility], [address], [place], [place], [address], [place] tel:[phone] SEC Arnoldo ECKERT Professional 1 day s/p PCIOL (chief complaint) Post op visit 0 Waqar Pace. [address], [address], [place], [place], [address], [place]. tel:[phone] Referring Provider: Sanjeev Barker, [address], [place], [address] . tel:[phone] [facility] [place], [address] [address], [place], [place], [address], [place] tel:[phone] [facility] [place] No Information 0 [place] Abelardo. [facility] [employer], [address], [place], [place], [address], . tel:[phone] Referring Provider: Sanjeev Barker, [address] [facility] [address], [place], [address] . tel:[phone] [facility], [address] [place], [place] [address] [address], [place], [place], [address], tel:[phone] SEC [place] No Information 0 Annemarie Abelardo. [facility] [employer], [address], [place], [place], [address], [place]. tel:[phone] Referring Provider: Sanjeev Barker, [address] [facility] [address], [place], [address] . tel:[phone] [facility], [address] [place] [address] [address], [place], [place], [address], tel:[phone] SEC O[place] Professional Cataract evaluation (chief complaint) Post op visitCombined forms of age-related cataract, bilateral 0 [place] Abelardo. [facility] [employer], [address], [place], [place], [address], [place]. tel:[phone] Referring Provider: Sanjeev Barker, [address] [facility] [address], [place], [address] . tel:[phone] [facility], [facility] [employer] [address], [place], [place], [address], [place] tel:[phone] SEC Arnoldo [place] Professional Cataract evaluation (chief complaint) Post op visit 0-201 9 [place] Abelardo. [facility] [employer], [address], [place], [place], [address], . tel:[phone] Referring Provider: Sanjeev Barker, [address] [facility] [address], [place], [address] . tel:[phone] [facility], [address], [place], [place], [address], [place] tel:[phone] SEC Rebekah [place] 1 wk Pterygium excision po (chief complaint) Post op visit 9 Annemarie Zhou. [facility] [employer], [address], [place], [place], [address], [place]. tel:[phone] Referring Provider: Sanjeev Barker, [address] [facility] [address], [place], [address] . tel:[phone] [facility], [address], [place], [place], [address], [place] tel:[phone] SEC [place] Pterygium excision (chief complaint) Post op visit 0 9 Annemarie Zhou. [facility] [employer], [address], [place], [place], [address], [place]. tel:[phone] Referring Provider: Sanjeev Barker, [address] [facility] [address], [place], [address] . tel:[phone] [facility], [address], [place], [place], [address], [place] tel:[phone] [facility] [place] No Information 9 Annemarie Zhou. [facility] [employer], [address], [place], [place], [address], [place]. tel:[phone] Referring Provider: Sanjeev Barker, [address] [facility] [address], [place], [address] . tel:[phone] Office/outpa tient Visit, Est [facility], [address], [place], [place], [address], [place] tel:[phone] SEC Arnoldo [place] Professional pterygium and cataract (chief complaint) Peripheral pterygium, progressive, left eyeCombined forms of age-related cataract, bilateral Oct- 9 Annemarie Zhou. [address], [address], [place], [place], [address], [place]. tel:[phone] Referring Provider: Sanjeev Barker, [address] [facility] [address], [place], [address] . tel:[phone] [facility] [place], [address] [address], [place], [place], [address], [place] [phone] SEC Arnold[place] Professional Complete Exam (chief complaint) Age-related nuclear cataract, bilateralPter ygium of left eyeAllergic conjunctiviti s of both eyes 9 Waqar Pace. [address] [facility], [facility], [place], [place], [address], [place]. tel:[phone] Referring Provider: Sanjeev Barker, [address] [facility] [address], [place], [address] . tel:[phone] [facility], [address], [place], [place], [address], [place] [phone] SEC [place] No Information 9 Asha JOSE JUAN Destiny. [address] [facility], [facility], [place], [address], . tel:[phone] Family History Family Member Type Diagnosis Age At Onset Problem (finding) Family history of Diabe prakash mellitus Payers Payer name Insurance type Covered democrat ID Authoriza tion(s) AAR Medicare Complete [place] [id number] [place] [id number] Social History Type Description Quantity Date Captured [...]
--- OUTSIDE RECORDS SUMMARY | 2024-09-26 11:34 | XMS_ITS | Referral Summary ---
Author Organization [facility] [address] [facility] Address [address] [facility] [address] [facility] [address] Care Team Providers Care Manager Freelance Name Role Phone Nicolas Jung MD Unavailable [phone] Louie Lomeli MD Unavailable [phone] Melchor Woodard MD Primary Care Provider [phone] Jairo Sparrow MD Unavailable [phone] Encounters Date Type Department Care Team Description 09/17/2024 11:51 AM CDT - 09/17/2024 12:39 PM CDT Emergency [facility] Emergency Department [address] [place] [address] Gouty arthritis of left foot (Primary Dx) Discharge Disposition: Discharge to home or self care 08/13/2024 Orders Only [facility] [address] [place] [address] [address] [address] Effie Avelar NP Dizziness and giddiness (Primary Dx) 08/13/2024 Telephone [facility] [address] [place] [address] [address] [place] [address] Jairo Sparrow MD 08/10/2024 11:13 AM CDT - 08/10/2024 1:21 PM CDT Emergency [facility] Emergency Department [address] [place] [address] Gouty arthritis of left foot (Primary Dx) Discharge Disposition: Discharge to home or self care 08/09/2024 [facility] Case Management [address] [place] [address] Rodriguez Goldstein RN 07/30/2024 2:40 PM CDT - 08/02/2024 4:22 PM CDT Hospital Encounter [facility] Acute Medicine [address] [place] [address] Krystal Araujo MD Singh, Arjun, MD Dizziness (Primary Dx); Dehydration; Dizziness and giddiness; Hypertension, essential; Class 2 severe obesity due to excess calories with serious comorbidity and body mass index (BMI) of 35.0 to 35.9 in adult (HCC); Leg weakness, bilateral Discharge Disposition: Discharge to home or self care 07/10/2024 Telephone [facility] [address] [facility] [address] [place] [id number] Nicolas Jung MD from Last 3 Months Allergies Active Allergy Reactions Criticality Noted Date Comments Ceftriaxone Nausea only Low 09/23/2021 Roshlgg-Pah-Sgn Reductase Inhibitors Other (See comments) Low 01/26/2018 Generalized pain Medications losartan (COZAAR) 25 mg tablet Take 1 tablet (25 mg total) by mouth daily 023 Active levothyroxine (SYNTHROID) 50 mcg tablet Take 1 tablet (50 mcg total) by mouth advertising inserter before breakfast Active aspirin 81 mg enteric coated tablet Take 1 tablet (81 mg total) by mouth daily Not sure if he takes 30 tablet 11 024 Active gabapentin (NEURONTIN) 100 mg capsuleIndicat ions:Diabetic Peripheral Neuropathy Take 2 capsules (200 mg total) by mouth 3 (three) times a day 180 capsule 024 Active Additional Information Patient taking differently: 100 [...] to 3 doses total 90 tablet 1 Active amLODIPine (NORVASC) 10 mg tablet TAKE 1 TABLET (10 MG TOTAL) BY MOUTH DAILY 90 tablet 3 024 2024 Active meclizine (ANTIVERT) 12.5 mg tablet Take 1 tablet (12.5 mg total) by mouth 3 (three) times a day as needed for dizziness 30 tablet Active diclofenac sodium (VOLTAREN) 1 % gel Apply 2 g topically 4 (four) times a day 30 g 1 Active meloxicam (MOBIC) 7.5 mg tablet Take 1 tablet (7.5 mg total) by mouth 2 (two) times a day with meals for 14 days 28 tablet Active clopidogreL (PLAVIX) 75 mg tablet TAKE 1 TABLET (75 MG TOTAL) BY MOUTH DAILY. NEED TO SCHEDULE APPOINTMENT 60 tablet 025 Active ezetimibe (ZETIA) 10 mg tabletIndicati ons:hyperlipid emia TAKE 1 TABLET (10 MG TOTAL) BY MOUTH DAILY 30 tablet 11 2025 Active empagliflozin (JARDIANCE) 25 mg tabletIndicati ons:type 2 diabetes mellitus Take 1 tablet (25 mg total) by mouth daily Active oxyBUTYnin XL (DITROPAN-XL) 10 mg 24 hr tablet Take 1 tablet (10 mg total) by mouth daily Active vibegron (Gemtesa) 75 mg tablet Take 75 mg by mouth daily Active triamcinolone (KENALOG) 0.025 % cream Active HYDROcodone-ac etaminophen (NORCO) 7.5-325 mg per tablet Take 1 tablet by mouth every 4 (four) hours as needed for pain Active metoprolol XL (TOPROL-XL) 25 mg extended release tablet Take 1 tablet (25 mg total) by mouth daily 30 tablet 11 025 2025 Active calcium carbonate-elsa min D3 1,250mg (500mg elemental) - 5 mcg (200 units) per tablet Take 1 tablet by mouth daily 30 tablet 1 025 2025 Active famotidine (PEPCID) 20 mg tablet Take 1 tablet (20 mg total) by mouth daily 30 tablet 1 025 2025 Active predniSONE (DELTASONE) 5 mg tabletIndicati ons:Gouty arthritis of left foot Take 1 tablet (5 mg) by mouth as directed 3 p.o. daily for 5 days then 2 p.o. daily for 5 days then 1 p.o. daily for 5 days. Collaborating physician Jordan Villanueva MD 30 tablet Active isosorbide mononitrate ER (IMDUR) 30 mg 24 hr tablet Take 1 tablet (30 mg total) by mouth daily Patient needs to call for appointment before any more refills will be given 30 tablet Active traMADoL (ULTRAM) 50 mg tabletIndicati ons:Gouty arthritis of left foot Take 1 tablet (50 mg total) by mouth every 8 (eight) hours as needed for pain P.r.n. pain not relieved by prednisone alone. Take 500 mg of acetaminophen with each dose. Take with food. Collaborating physician Jordan Villanueva MD 15 tablet Active traMADoL (ULTRAM) 50 mg tablet Take 1 tablet (50 mg total) by mouth every 6 (six) hours as needed for pain 21 tablet 2024 Discontinued(T herapy completed) traMADoL (ULTRAM) 50 mg tabletIndicati ons:Gouty arthritis of left foot Take 1 tablet (50 mg total) by mouth every 6 (six) hours as needed for pain P.r.n. pain not relieved by prednisone alone. Take 500 mg of acetaminophen with each dose. Take with food. Collaborating physician Jordan Villanueva MD 20 tablet 025 2024 Discontinued methylPREDNISo lone (MEDROL DOSEPACK) 4 mg DosepackIndica tions:Gouty arthritis of left foot Take as directed on package. Collaborating physician Jordan Villanueva MD 1 packet 025 2024 Active Problems Problem Noted Date Diagnosed Date [...] 06/01/2022 Assessment & Plan (06/01/2022 3:29 PM MECHANICAL SPECIALIST): Worsening, patient reports symptoms are worse 1st thing in the morning, has to clean eyes before can open; fewer symptoms throughout the day; most consistent with allergic conjunctivitis Start azelastine eyedrops Diabetic neuropathy, type II diabetes mellitus 0 05/27/2022 LLAITO (acute kidney injury) 03/10/2022 Obesity (BMI 30-39.9) 03/10/2022 Other chest pain 03/09/2022 Assessment & Plan (06/01/2022 3:28 PM MECHANICAL SPECIALIST): Continues to have episodes of chest pain, started in nature; can radiate to right-side of chest Patient reports some relief with ASA; has nitroglycerin Will continue to monitor; if negative cardio workup, consider esophageal spasms of source of pain Assessment & Plan (04/06/2022 11:47 AM MECHANICAL SPECIALIST): Reports pressure-like chest pain today, worsening [...] (12/29/2021): Added automatically from request for surgery [id number] Leukocytosis 12/19/2021 UTI (urinary tract infection) 12/19/2021 Coronary artery disease 12/18/2021 Overview (12/18/2021): Added automatically from request for surgery [id number] Assessment & Plan (03/07/2022 9:41 AM MECHANICAL SPECIALIST): Not well controlled, patient had stopped [...] (12/17/2021): Added automatically from request for surgery [id number] Assessment & Plan (01/10/2022 9:21 PM CDT): [...] Nasal saline spray (Simply saline, [employer] Remedies, [place], [place]) 2 second sprays or 2 squeezes into [...] (11/18/2020): Added automatically from request for surgery [id number] Assessment & Plan (03/20/2021 4:30 PM MECHANICAL SPECIALIST): Stable, patient waiting on improved A1c [...] (11/18/2020): Added automatically from request for surgery [id number] Scar of vermilion border of upper lip 07/04/2020 Overview (07/04/2020): Referral to plastic surgery for evaluation and possible affects scar tissue Cicatrix 07/04/2020 Tension headache 06/30/2020 Assessment & Plan (06/25/2021 10:33 AM MECHANICAL SPECIALIST): Patient has recurrent left-sided tension headaches; likely secondary to pressure on muscles from lipoma Assessment & Plan (06/09/2021 1:59 PM MECHANICAL SPECIALIST): Patient has headache for the last [...] nostril Assessment & Plan (06/30/2020 12:31 PM MECHANICAL SPECIALIST): Patient has severe left sided headache; reports worsened with looking down or leaning back in bed; may be related to sinuses vs tension type headache -given congestion may consider sinus pressure and will refer to ENT Chronic midline low back pain without sciatica 0 06/30/2020 Assessment & Plan (06/30/2020 12:33 PM MECHANICAL SPECIALIST): Not well controlled; likely worsened due to poor core strength; encouraged weight loss to reduce strain on lower back (has severe central adiposity) Will give patient core exercises to strengthen low back and abodmen Lipoma of neck 06/25/2020 Assessment & Plan (06/25/2021 10:32 AM MECHANICAL SPECIALIST): Not well controlled, patient has left-sided tension style headaches, S with noted changing position of head due to size of lipoma Patient benefit from surgical removal to help improve overall posture as well as potentially improved tension headaches Assessment & Plan (05/14/2021 1:29 PM MECHANICAL SPECIALIST): Patient has large lipoma on back left-sided neck; reports left-sided headaches, which may be contributed by lipoma putting pressure on muscles sugar causing tension headaches Referral to Plastic surgery for removal Assessment & Plan (03/20/2021 4:29 PM MECHANICAL SPECIALIST): Stable, Impacts patient ability to turn had; will continue monitor refer to surgery when appropriate Primary osteoarthritis of left knee 05/08/2020 Assessment & Plan (11/17/2021 3:53 PM CDT): Continues to have significant pain, has some symptom improvement, but limited range of motion and pain with movement Recent steroid injection Follow-up with orthopedics Assessment & Plan (04/21/2021 2:52 PM MECHANICAL SPECIALIST): Stable, continues with physical therapy which [...] monitor Assessment & Plan (05/14/2021 1:29 PM MECHANICAL SPECIALIST): Improving, patient has walked about 12 lb since last visit; encouraged continued dietary changes, decreasing in take through portion control as well as lowering carbohydrate intake Encourage daily activity of 30 minutes of moderate intensity aerobic exercise daily Assessment & Plan (03/20/2021 4:29 PM MECHANICAL SPECIALIST): Weight is stable, no significant change; [...] week Assessment & Plan (05/05/2020 3:33 PM MECHANICAL SPECIALIST): Not well controlled, patient reports weight [...] daily Assessment & Plan (06/25/2021 10:31 AM MECHANICAL SPECIALIST): Stable, unclear control, patient reports inconsistent medications use Continue levothyroxine 50 mcg daily, check TSH today Assessment & Plan (04/21/2021 2:52 PM MECHANICAL SPECIALIST): Stable, well controlled; continue levothyroxine 50 mcg daily Assessment & Plan (03/20/2021 4:28 PM MECHANICAL SPECIALIST): Stable, well controlled; continue levothyroxine 50 mcg daily Assessment & Plan (09/24/2020 3:00 PM CDT): Recheck TSH today as previous TSH was mildly elevated, is still elevated will adjust levothyroxine given patient has complaints of generalized fatigue Assessment & Plan (06/16/2020 9:09 AM MECHANICAL SPECIALIST): Will recheck thyroid now that has been on medication for ~6 weeks Assessment & Plan (05/05/2020 3:36 PM MECHANICAL SPECIALIST): Mild elevation of TSH, patient has multiple symptoms including inability to lose weight, chronic fatigue and chronic tiredness Will start at low dose levothyroxine 25 mcg, will recheck TSH in approximately 6 weeks Arthritis 03/24/2020 DM2 (diabetes mellitus, type 2) 03/24/2020 Assessment & Plan (06/01/2022 3:30 PM MECHANICAL SPECIALIST): Not well controlled, A1c has always [...] diet Assessment & Plan (06/25/2021 10:31 AM MECHANICAL SPECIALIST): Stable, improving; patient A1c has been down trending to 7.5 last time, recheck A1c today Continue metformin XR 1000 mg daily Assessment & Plan (05/14/2021 1:28 PM MECHANICAL SPECIALIST): Stable, improving; last A1c was decreasing to 7.5 Encouraged patient to continue with low-carbohydrate diet; encourage education dietary changes as well as regular exercise Continue metformin 1000 mg daily Assessment & Plan (04/21/2021 2:52 PM MECHANICAL SPECIALIST): Stable, improving; patient reports he has been working on decreasing carbohydrates Has a decreased appetite well on Rybelsuswith minimal side effects Continue metformin 1000 mg daily with breakfast, Rybelsus 7 mg prior to breakfast Continue to monitor encourage continued decreased carbohydrate diet Recheck labs at follow-up appointment Assessment & Plan (03/20/2021 4:28 PM MECHANICAL SPECIALIST): Stable, well controlled, improving Patient reports [...] diet Assessment & Plan (05/05/2020 3:32 PM MECHANICAL SPECIALIST): Not well controlled, A1c is 7.7 [...] strength Assessment & Plan (03/26/2020 12:24 PM MECHANICAL SPECIALIST): Will check blood sugars and A1c [...] loss Assessment & Plan (05/14/2021 1:28 PM MECHANICAL SPECIALIST): Not well controlled, patient cannot tolerate statins; encouraged dietary changes order reduce cholesterol through low-fat high-fiber diet Assessment & Plan (05/05/2020 3:35 PM MECHANICAL SPECIALIST): Poorly controlled patient has elevated total and LDL cholesterol with knee depressed HDL cholesterol Triglycerides are also elevated at 254 Patient is unable to tolerate statin therapy due to muscular pain of thigh muscles Will encouraged diet and exercise as ways to maintain and modify cholesterol level Hypertension, essential 03/24/2020 Assessment & Plan (06/01/2022 3:30 PM MECHANICAL SPECIALIST): Stable, improving; blood pressure today in clinic was normal; patient reports home measurements are improving Continue amlodipine 10 mg daily, hydralazine 25 mg b.i.d., metoprolol 100 mg daily Losartan was previously on medication list, but not part of pharmacy was Given blood pressures appropriate, will continue to monitor, can rehab losartan if blood pressure increases Assessment & Plan (04/06/2022 11:47 AM MECHANICAL SPECIALIST): Stable, improving; most recent blood pressure was at target Continue losartan 100 mg daily, metoprolol 100 mg daily, amlodipine 10 mg daily Assessment & Plan (03/07/2022 9:40 AM MECHANICAL SPECIALIST): Not well controlled; patient reports that [...] daily Assessment & Plan (06/25/2021 10:30 AM MECHANICAL SPECIALIST): Not well controlled; blood pressure is elevated this morning prior to surgery, elevated again in office Given blood pressure was just normal on 06/09/2021, will increase lisinopril to 40 mg daily Encouraged patient to consistently take medications, with no missed or skipped doses Assessment & Plan (05/14/2021 1:27 PM MECHANICAL SPECIALIST): Not well controlled, blood pressure remains elevated; patient has been inconsistent with taking medications Will continue lisinopril 20 mg, follow-up at next appointment; if blood pressure still is elevated will adjust medication Assessment & Plan (03/20/2021 4:27 PM MECHANICAL SPECIALIST): Stable well controlled; blood pressure a [...] needed Assessment & Plan (05/05/2020 3:34 PM MECHANICAL SPECIALIST): Well controlled, patient's blood pressure is at target today Will continue with current therapies and continue to monitor patient Assessment & Plan (03/26/2020 12:24 PM MECHANICAL SPECIALIST): Stable well controlled, continue present management [...] arthroscopy Assessment & Plan (06/16/2020 9:09 AM MECHANICAL SPECIALIST): Not well controlled, had relief with cortisone injection, but now has worsening pain; relief last for about 3-4 weeks -has some instability of patella, able to 'adjust' patella to relieve pain and improve ROM Assessment & Plan (05/05/2020 3:34 PM MECHANICAL SPECIALIST): Stable, not controlled Patient is not able to consistently place weight on the Patient to follow-up with orthopedics further evaluation, based on recommendations may refer to physical therapy Assessment & Plan (03/26/2020 12:24 PM MECHANICAL SPECIALIST): Will start treatment with diclofenac cream, and use of the triamcinolone as necessary If needed will refer to physical therapy for further improvement in pain Polyneuropathy associated with underlying diseas e ([facility]) 10/24/2019 Assessment & Plan (04/06/2022 11:44 AM MECHANICAL SPECIALIST): Continues to have numbness and weakness in bilateral legs; patient scheduled nerve conduction study Continue gabapentin 100 mg TID Continue with exercise, and strength training; noted to have decreased strength in hip flexors; normal with knee -if EMG is normal, consider CK or evaluation of polymyalgia or polymysitis Assessment & Plan (05/05/2020 3:34 PM MECHANICAL SPECIALIST): Patient has episodes of decreased balance [...] management Assessment & Plan (06/25/2021 10:32 AM MECHANICAL SPECIALIST): Not well controlled, patient continues to have frequent nighttime urination; encouraged patient to continue follow-up with Urology and reschedule surgery Continue myrbetriq 50 mg daily Assessment & Plan (03/20/2021 4:30 PM MECHANICAL SPECIALIST): Patient continues to have increased urinary [...] materials from doctor or pharmacy Sometimes 01/17/2024 [facility] Utilities Answer Date Recorded In the past 12 months has th e [employer], gas, oil, or water iPAYst threatened to shut off services in your [...] attend chur ch or samaritan services? Never 07/31/2024 Do you belong to any clubs o r organizations such as jew groups, unions, fraternal or athletic groups, or [...] or slept in a intermediate (including now)? No 08/29/2023 Housing Stability Vital Sign Answer Víctor e Recorded In the last 12 months, was t here a time when you were not able to pay the mortgage or rent on time? No 07/31/2024 In the past 12 months, how m any times have you moved where you were living? 1 07/31/2024 At any time in the past 12 m [facility], were you homeless or living in a intermediate (including now)? No 07/31/2024 Personal Safety Answer Date Recorded Have you ever been in or are you currently in a harmful physical or emotional relationship or is someone making you feel afraid or unsafe? Denies 09/17/2024 Education Answer Date Recorded What is the highest level of school you have completed or the highest degree you have received? Some college, no degree 08/29/2023 Sex and Gender Information Value Date Recorded Sex Assigned at Not on file Legal Sex Male 12:23 AM MECHANICAL SPECIALIST Gender Identity Not on file Sexual Orientation Not on file Last Filed Vital Signs Vital Sign Reading Time Taken Comments Blood Pressure 125/84 09/17/2024 12:39 PM CDT Pulse 84 09/17/2024 12:39 PM CDT Temperature 36.1 C (97 F) 09/17/2024 10:38 AM CDT Respiratory Rate 20 09/17/2024 12:39 PM CDT Oxygen Saturation 98% 09/17/2024 12:39 PM CDT Inhaled Oxygen Concentration - - Weight 117.9 kg (260 lb) 09/17/2024 10:38 AM CDT Height 177.8 cm (5' 10) 08/01/2024 9:05 AM CDT Body Mass Index 37.31 08/01/2024 9:05 AM CDT Plan of Treatment Not on file Medical Devices Implanted Type Area Plow Holder Device Identifier Shelf Expiration Date Model / Serial / Lot [employer] Daysi Synergy Xd Monorail 3.5mm 12mm 144cm Delivery System 1 Access [id number] - [id number] Implanted:Qty: 1 on 08/29/2023 by Louie Lomeli MD at [facility] Stent [employer] Daysi 10/19/2024 [id number] / / [id number] [employer] Stent Coronary De Rx Cocr Xience Skypoint [id number] - [id number] Implanted:Qty: 1 on 12/17/2021 by Louie Lomeli MD at [facility] [employer] 08/24/2023 [id number] [employer] Stent Coronary De Rx Cocr Xience Skypoint [id number] - [id number] Implanted:Qty: 1 on 12/17/2021 by Louie Lomeli MD at [facility] [employer] 08/28/2023 [id number] [employer] Daysi Synergy 3mm 16mm 144cm Radiopaque 1 Access Port Inflation Lumen [id number] - [id number] Implanted:Qty: 1 on 12/22/2021 by Louie Lomeli MD at [facility] [employer] Daysi 09/04/2022 [id number] / / [id number] [facility] Angio-Seal Vip 6fr Closere Device [id number] - [id number] Implanted:Qty: 1 on 12/22/2021 by Louie Lomeli MD at [facility] [employer] 09/29/2022 [id number] / / [id number] Procedures Procedure Name Priority Date/Time Associated Diagnosis [...] 1 VIEW ED 07/30/2024 1:21 PM CDT HEMOGLOBIN A1C Routine 08/30/2023 2:23 [...] RIZVI LAB BLOOD ORDERABLES Final R esult [facility] [address] [facility] Department [place] [address] * (ABNORMAL) Differential, auto (08/10/2024 [...] R esult [facility] [address] [facility] [place] [address] * (ABNORMAL) CBC with auto differential (08/10/2024 11:58 AM CDT) WBC 12.99(H) 3.80 - 9.90 K/cumm Hgb 17.0 13.0 - 17.5 g/dL [facility] Hct 51.7(H) 38.9 - 50.3 % [facility] ([place] Plt 206 150 - 400 K/cumm [facility] ([place] MPV 9.8 9.1 - 12.3 fL [facility] RBC 5.66 4.30 - 5.80 M/cumm [facility] ([place] MCV 91.3 81.3 - 96.4 fL [facility] ([place] MCH 30.0 27.1 - 33.3 pg [facility] ([place] MCHC 32.9 32.3 - 35.7 g/dL [facility] RDW CV 14.2 11.1 - 14.9 % [facility] ([place] RDW SD 47.7 35.7 - 48.1 fL [facility] ([place] NRBC abs 0.00 0.00 - 0.01 K/cumm [facility] Blood 08/10/2024 11:5 8 AM CDT 08/10/2024 12:00 PM CDT [place] RIZVI LAB BLOOD ORDERABLES Final R esult [facility]) [address] [facility] [place] [address] * Erythrocyte sedimentation rate (08/10/2024 11:58 AM CDT) Erythrocyte sedimentation rate 11 1 - 20 mm/hr Blood 08/10/2024 11:5 8 AM CDT 08/10/2024 12:00 PM CDT [facility] LAB BLOOD ORDERABLES Final R esult [facility] [address] [facility] [place] [address] * (ABNORMAL) CRP (acute phase) (08/10/2024 11:58 AM CDT) CRP 19.1(H) <=10.0 mg/L Blood 08/10/2024 11:5 8 AM CDT 08/10/2024 12:00 PM CDT [facility] LAB BLOOD ORDERABLES Final R esult [facility]) [address] [place] [address] * (ABNORMAL) Uric acid (08/10/2024 11:58 AM CDT) Uric acid 8.8(H) 3.0 - 8.0 mg/dL Blood 08/10/2024 11:5 8 AM CDT 08/10/2024 12:00 PM CDT [place] [facility] LAB BLOOD ORDERABLES Final R esult Performing Organization Address City/[facility] Co de Phone Number [facility] ([place]) [address] [facility] [place] [address] * (ABNORMAL) Comprehensive metabolic panel (08/10/2024 11:58 AM CDT) Sodium 141 135 - 145 mmol/L Potassium, pl 3.5 3.3 - 4.9 mmol/L [facility] ([place] Chloride 104 97 - 110 mmol/L [facility] ([place]) CO2 24 22 - 32 mmol/L [facility] ([place]) Anion gap 14 2 - 15 mmol/L [facility] ([place] BUN 19 6 - 25 mg/dL [facility] ([place]) Creatinine 1.33(H) 0.80 - 1.30 mg/dL [facility] ([place]) Glucose 154 70 - 199 mg/dL [facility] ([place]) Comment: Interpretive Data [...] R esult [facility] [address] [facility] [place] [address] * XR Foot Left 3 or More Views (08/10/2024 10:10 AM CDT) Anatomical Region Laterality Modality Lower Extremities, Foot Left Computed Radiography 08/10/2024 10:5 2 AM CDT Narrative 08/10/2024 10:58 AM CDT EXAM DESCRIPTION: XR FOOT LEFT 3 OR MORE VIEWS REASON FOR STUDY: pain to foot Pt to ED via [facility] [facility] Per Pt he has had left [...] Lawrence Clark M.D. MZ: MZ Report ID: [id number] Reading Location: [id number] Procedure Note Lawrence Clark MD - 08/10/2024 EXAM DESCRIPTION: XR FOOT LEFT 3 OR MORE VIEWS REASON FOR STUDY: pain to foot Pt to ED via [facility]. Per Pt he has had left [...] Lawrence Clark M.D. MZ: MZ Report ID: [id number] Reading Location: [id number] us Xavi Murray MD IMG XR PROCEDURES F inal Result * POCT glucose (08/02/2024 11:54 AM CDT) Glucose, POC 163 70 - 199 mg/dL Blood 08/02/2024 11:5 4 AM CDT 08/02/2024 11:54 AM CDT us Corey Russo MD LAB POCT ORDERABLES - DEVICE Fin al Result [facility] ([place]) [address] Department of Laboratories [place] [id number] * POCT glucose (08/02/2024 8:05 AM CDT) Glucose, POC 123 70 - 199 mg/dL Blood 08/02/2024 8:05 AM CDT 08/02/2024 8:05 AM CDT us Corey Russo MD LAB POCT ORDERABLES - DEVICE Fin al Result Performing Organization Address City/[facility]/ZIP Co de Phone Number [facility] ([place]) [address] [place] [address] * (ABNORMAL) eGFR (08/02/2024 4:04 AM CDT) Pathologist [facility] eGFR 52(L) >=60 mL/min/1. 73 m2 Comment: [...] MD LAB BLOOD ORDERABLES Fi nal Result [facility] ([place]) 1 [facility] [place] [address] * (ABNORMAL) Differential, auto (08/02/2024 4:04 AM [...] ORDERABLES Fi nal Result Performing Organization Address City/[facility] Co de Phone Number [facility] ([place]) 1 [facility] [place] [address] * CBC with auto differential (08/02/2024 4:04 [...] 0.01 K/cumm [facility] ([place]) Blood 08/02/2024 4:04 AM CDT 08/02/2024 5:08 AM CDT us Krystal Araujo MD LAB BLOOD ORDERABLES Fi nal Result Performing Organization Address City/[facility]/ZIP Co de Phone Number [facility] ([place]) 1 [facility] [place] [address] * (ABNORMAL) Comprehensive metabolic panel (08/02/2024 4:04 AM CDT) Sodium 143 135 - 145 mmol/L Potassium, pl 3.4 3.3 - 4.9 mmol/L [facility] ([place]) Chloride 106 97 - 110 mmol/L [facility] ([place]) CO2 24 22 - 32 mmol/L [facility] ([place]) Anion gap 13 2 - 15 mmol/L [facility] ([place]) BUN 25 6 - 25 mg/dL [facility] ([place]) Creatinine 1.44(H) 0.80 - [...] nal Result [facility] ([place]) 1 [facility] [place] [address] * POCT glucose (08/02/2024 1:52 AM CDT) Glucose, POC 130 70 - 199 mg/dL Blood 08/02/2024 1:52 AM CDT 08/02/2024 1:52 AM CDT Corey Russo MD LAB POCT ORDERABLES - DEVICE Fin al Result [facility] ([place]) 1 [facility] [place] [address] * (ABNORMAL) POCT glucose (08/01/2024 7:54 PM CDT) Glucose, POC 235(H) 70 - 199 mg/dL Blood 08/01/2024 7:54 PM CDT 08/01/2024 7:54 PM CDT Corey Russo MD LAB POCT ORDERABLES - DEVICE Fin al Result Performing Organization Address City/[facility]/ZIP Co de Phone Number [facility] ([place]) 1 [facility] [place] [address] * POCT glucose (08/01/2024 4:25 PM CDT) Glucose, POC 118 70 - 199 mg/dL Blood 08/01/2024 4:25 PM CDT 08/01/2024 4:25 PM CDT Corey Russo MD LAB POCT ORDERABLES - DEVICE Fin al Result [facility] ([place]) 1 [facility] [place] [address] * MRI Thoracic Spine WO Contrast (08/01/2024 [...] No significant spinal stenosis. C2-C3: Disc bulge. Ubge-vh-vnavncuf facet arthropathy. Mild uncovertebral arthropathy. Mild right [...] Lawrence Clark M.D. MZ: INGRID Report ID: [id number] Reading Location: [id number] Procedure Note Lawrence Clark MD - 08/01/2024 [...] No significant spinal stenosis. C2-C3: Disc bulge. Wnxb-lf-gmxcnjcj facet arthropathy. Milduncovertebral arthropathy. Mild right neural [...] Lawrence Clark M.D. MZ: INGRID Report ID: [id number] Reading Location: [id number] us Diomedes Haywood [employer] IMG MRI PROCEDURES Final Re sult * [...] No significant spinal stenosis. C2-C3: Disc bulge. Oilx-rs-ucpyxodj facet arthropathy. Mild uncovertebral arthropathy. Mild right [...] Lawrence Clark M.D. MZ: INGRID Report ID: [id number] Reading Location: [id number] Procedure Note Lawrence Clark MD - 08/01/2024 [...] No significant spinal stenosis. C2-C3: Disc bulge. Ozqi-fc-vtfugwbr facet arthropathy. Milduncovertebral arthropathy. Mild right neural [...] Lawrence Clark M.D. MZ: INGRID Report ID: [id number] Reading Location: [place] [address] Diomedes Haywood NP IMG MRI PROCEDURES Final [...] Lawrence Clark M.D. MZ: INGRID Report ID: [id number] Reading Location: [id number] Procedure Note Lawrence Clark MD - 08/01/2024 EXAM DESCRIPTION: MRI BRAIN WO CONTRAST REASON FOR STUDY: Ataxia, nontraumatic, stroke excluded, Gaitinstability and falls Ataxia, Gait instability and falls TECHNIQUE: Multiplanar imaging includes non-contrasted T1, T2, FLAIR, and diffusion with ADC map sequences. Additional sequence(s) sensitive toblood products. Images stored on PACS. COMPARISON: 02/03/2023.. [...] Lawrence Clark M.D. MZ: INGRID Report ID: [id number] Reading Location: [id number] us Mike Harris MD IMG MRI PROCEDURES Final Result * POCT glucose (08/01/2024 11:37 AM CDT) Pathologist [facility] Glucose, POC 161 70 - 199 mg/dL Blood 08/01/2024 11:3 7 AM CDT 08/01/2024 11:37 AM CDT us Corey Russo MD LAB POCT ORDERABLES - DEVICE Fin al Result [facility] [place] 1 [facility] [place] [address] * POCT glucose (08/01/2024 7:44 AM CDT) [facility] Glucose, POC 115 70 - 199 mg/dL Blood 08/01/2024 7:44 AM CDT 08/01/2024 7:44 AM CDT us Corey Russo MD LAB POCT ORDERABLES - DEVICE Fin al Result Performing Organization Address City/[facility]/ZIP Co de Phone Number [facility] ([place]) 1 [facility] [place] [address] * (ABNORMAL) eGFR (08/01/2024 5:53 AM CDT) [facility] eGFR 54(L) >=60 mL/min/1. 73 m2 Comment: [...] BLOOD ORDERABLES Fi nal Result [facility] ([place]) 1 [facility] [place] [address] * (ABNORMAL) Differential, auto (08/01/2024 5:53 AM [...] pct 77.0 % [facility] ([place]) Comment: [...] nal Result [facility] ([place]) 1 [facility] Department [place] [address] * CBC with auto differential (08/01/2024 5:53 [...] nal Result [facility] ([place]) 1 [facility] [place] [address] * Magnesium (08/01/2024 5:53 AM CDT) Magnesium 2.0 1.4 - 2.5 mg/dL Blood 08/01/2024 5:53 AM CDT 08/01/2024 5:58 AM CDT us Krystal Araujo MD LAB BLOOD ORDERABLES Fi nal Result [facility] ([place]) 1 [facility] [place] [address] * (ABNORMAL) Comprehensive metabolic panel (08/01/2024 5:53 [...] 25 mg/dL [facility] ([place]) Creatinine 1.39(H) 0.80 - 1.30 mg/dL [facility] ([place]) Glucose 130 70 - 199 mg/dL [facility] ([place]) ALT 14 7 - 55 Units/L [facility] ([place]) AST 14 10 - 50 Units/L [facility] ([place]) Blood 08/01/2024 5:53 AM CDT 08/01/2024 5:58 AM CDT Krystal Araujo MD LAB BLOOD ORDERABLES Fi nal Result Performing Organization Address City/[facility]/ZIP Co de Phone Number [facility] ([place]) 1 [facility] [place] [address] * POCT glucose (08/01/2024 1:32 AM CDT) Glucose, POC 137 70 - 199 mg/dL Blood 08/01/2024 1:32 AM CDT 08/01/2024 1:32 AM CDT Corey Russo MD LAB POCT ORDERABLES - DEVICE Fin al Result Performing Organization Address City/[facility] Co de Phone Number [facility] ([place]) 1 [facility] [place] [address] * POCT glucose (07/31/2024 8:49 PM CDT) Glucose, POC 182 70 - 199 mg/dL Blood 07/31/2024 8:49 PM CDT 07/31/2024 8:49 PM CDT Corey Russo MD LAB POCT ORDERABLES - DEVICE Fin al Result Performing Organization Address City/[facility]/ZIP Co de Phone Number [facility] ([place]) 1 [facility] [place] [address] * POCT glucose (07/31/2024 4:16 PM CDT) Glucose, POC 130 70 - 199 mg/dL Blood 07/31/2024 4:16 PM CDT 07/31/2024 4:16 PM CDT Corey Russo MD LAB POCT ORDERABLES - DEVICE Fin al Result [facility] ([place]) 1 [facility] [place] [address] * POCT glucose (07/31/2024 11:47 AM CDT) Glucose, POC 172 70 - 199 mg/dL Blood 07/31/2024 11:4 7 AM CDT 07/31/2024 11:47 AM CDT Corey Russo MD LAB POCT ORDERABLES - DEVICE Fin al Result Performing Organization Address City/[facility] Co de Phone Number [facility] ([place]) 1 [facility] [place] [address] * (ABNORMAL) eGFR (07/31/2024 6:59 AM CDT) [...] BLOOD ORDERABLES Fi nal Result [facility] ([place]) 1 [facility] Department [place] [address] * (ABNORMAL) Differential, auto (07/31/2024 6:59 AM CDT) Neutrophil abs 7.6(H) 1.5 - 6.5 K/cumm Imm gran abs 0.2(H) 0.0 - 0.1 K/cumm [facility] ([place]) Lymphocyte abs 1.2 0.8 - 3.3 K/cumm [facility] ([place]) Monocyte abs 0.7 0.2 - 0.8 K/cumm [facility] ([place]) Eosinophil abs 0.1 0.0 - 0.5 K/cumm [facility] ([place]) Basophil abs 0.1 0.0 - 0.1 K/cumm [facility] ([place]) Neutrophil pct 77.5 % [facility] ([place]) Comment: Interpretive Data Percent cell count reference ranges are not reported, since discordance with absolute values may lead to misinterpretation of CBC data. Current Interpretive Data was last revised on 2017. Imm gran pct 1.6 % [facility] ([place]) Comment: Interpretive Data Percent cell count reference ranges are not reported, since discordance with absolute values may lead to misinterpretation of CBC data. Current Interpretive Data was last revised on 2017. Lymphocyte pct 12.1 % [facility] ([place]) Comment: Interpretive Data Percent cell count reference ranges are not reported, since discordance with absolute values may lead to misinterpretation of CBC data. Current Interpretive Data was last revised on 2017. Monocyte pct 7.4 % [facility] ([place]) Comment: Interpretive Data Percent cell count reference ranges are not reported, since discordance with absolute values may lead to misinterpretation of CBC data. Current Interpretive Data was last revised on 2017. Eosinophil pct 0.9 % [facility] ([place]) Comment: Interpretive Data Percent cell count reference [...] nal Result [facility] ([place]) 1 [facility] [place] [address] * CBC with auto differential (07/31/2024 6:59 [...] 33.3 pg [facility] ([place]) MCHC 32.7 32.3 - 35.7 g/dL [facility] ([place]) RDW CV 13.8 11.1 - 14.9 % [facility] ([place]) RDW SD 46.7 35.7 - 48.1 fL [facility] ([place]) NRBC abs 0.00 0.00 - 0.01 K/cumm [facility] ([place]) Blood 07/31/2024 6:59 AM CDT 07/31/2024 7:38 AM CDT us Krystal Araujo MD LAB BLOOD ORDERABLES Fi nal Result [facility] ([place]) 1 [facility] Department [place] [address] * Magnesium (07/31/2024 6:59 AM CDT) Magnesium 2.1 1.4 - 2.5 mg/dL Blood 07/31/2024 6:59 AM CDT 07/31/2024 7:38 AM CDT us Krystal Suarez Van CARRASCO LAB BLOOD ORDERABLES Fi nal Result Performing Organization Address City/[facility]/ZIP Co de Phone Number [facility] ([place]) 1 [facility] [place] [address] * (ABNORMAL) Comprehensive metabolic panel (07/31/2024 6:59 AM CDT) Sodium 144 135 - 145 mmol/L Potassium, pl 3.3 3.3 - 4.9 mmol/L [facility] ([place]) Chloride 106 97 - 110 mmol/L [facility] ([place]) CO2 25 22 - 32 mmol/L [facility] ([place]) AST 14 10 - 50 Units/L [facility] Blood 07/31/2024 6:59 AM CDT 07/31/2024 7:38 AM CDT us Krystal Araujo MD LAB BLOOD ORDERABLES Fi nal Result Performing Organization Address City/[facility]/ZIP Co de Phone Number [facility] ([place]) 1 [facility] [place] [address] * Thyroid Function Hemphill (07/31/2024 6:57 AM CDT) TSH 3.00 0.30 - 4.20 mcIUnit/mL Blood 07/31/2024 6:57 AM CDT 07/31/2024 9:01 AM CDT Corey Russo MD LAB BLOOD ORDERABLES Final Resul t Performing Organization Address City/[facility]/ZIP Co de Phone Number [facility] ([place]) 1 [facility] [place] [address] * POCT glucose (07/31/2024 3:46 AM CDT) Glucose, POC 155 70 - 199 mg/dL Blood 07/31/2024 3:46 AM CDT 07/31/2024 3:46 AM CDT Krystal Araujo MD LAB POCT ORDERABLES - D EVICE Final Result Performing Organization Address City/[facility]/ZIP Co de Phone Number [facility] ([place]) 1 [facility] [place] [address] * POCT glucose (07/31/2024 12:06 AM CDT) Glucose, POC 154 70 - 199 mg/dL Blood 07/31/2024 12:0 6 AM CDT 07/31/2024 12:06 AM CDT Krystal Araujo MD LAB POCT ORDERABLES - D EVICE Final Result [facility] ([place]) 1 [place] [address] * POCT glucose (07/30/2024 9:50 PM CDT) Glucose, POC 180 70 - 199 mg/dL Blood 07/30/2024 9:50 PM CDT 07/30/2024 9:50 PM CDT Krystal Araujo MD LAB POCT ORDERABLES - D EVICE Final Result Performing Organization Address City/[facility]/ZIP Co de Phone Number [facility] ([place]) 1 [place] [address] * (ABNORMAL) Troponin T high-sensitivity 6-hour (07/30/2024 7:46 PM CDT) Trop T hs 33(H) <=22 ng/L Comment: Interpretive Data For further hscTnT resources including the diagnostic algorithm and an aid in interpretation, copy and paste this link: https://nrl.testcatalog.org/show/hsTrop Current Interpretive Data last revised 2020. Trop T hs delta -2 ng/L [facility] ([place]) Trop T hs interp Insignificant [facility] ([place]) Blood 07/30/2024 7:46 PM CDT 07/30/2024 7:48 PM CDT Leelee RIZVI LAB BLOOD ORDERABLES Holly l Result [facility] ([place]) 1 [facility] [place] [address] * Sepsis Lactate w/ Reflex (07/30/2024 7:46 PM CDT) Sepsis Lactate 1.6 0.7 - 2.0 mmol/L Blood 07/30/2024 7:46 PM CDT 07/30/2024 7:48 PM CDT us Funmilayo RIZVI LAB BLOOD ORDERABLES Final Resu lt Performing Organization Address City/[facility]/ZIP Co de Phone Number [facility] ([place]) 1 [facility] [place] [address] * POCT glucose (07/30/2024 6:59 PM CDT) Pathologist [facility] Glucose, POC 128 70 - 199 mg/dL Blood 07/30/2024 6:59 PM CDT 07/30/2024 6:59 PM CDT us Notinfile Unknown LAB POCT ORDERABLES - DEVICE F inal Result Performing Organization Address City/[facility]/ZIP Co de Phone Number [facility] ([place]) 1 [facility] [place] [address] * (ABNORMAL) Troponin T high-sensitivity 4-hour (07/30/2024 5:07 PM CDT) Trop T hs 33(H) <=22 ng/L Comment: Interpretive Data For further hscTnT resources including the diagnostic algorithm and an aid in interpretation, copy and paste this link: https://nrl.testcatalog.org/show/hsTrop Current Interpretive Data last revised 2020. Trop T hs delta -2 ng/L [facility] ([place]) Trop T hs interp Insignificant [facility] ([place]) Blood 07/30/2024 5:07 PM CDT 07/30/2024 5:11 PM CDT us Leelee RIZVI LAB BLOOD ORDERABLES Holly l Result [facility] ([place]) 1 [facility] Department [place] [address] * (ABNORMAL) Troponin T high-sensitivity 2-hour (07/30/2024 4:31 PM CDT) Trop T hs 36(H) <=22 ng/L Comment: Interpretive Data For further hscTnT resources including the diagnostic algorithm and an aid in interpretation, copy and paste this link: https://nrl.testcatalog.org/show/hsTrop Current Interpretive Data last revised 2020. Trop T hs delta 1 ng/L [facility] ([place]) Trop T hs interp Insignificant [facility] ([place]) Blood 07/30/2024 4:31 PM CDT 07/30/2024 4:35 PM CDT us Leelee RIZVI LAB BLOOD ORDERABLES Holly l Result Performing Organization Address [facility]/ZIP Co de Phone Number [facility] ([place]) 1 [facility] Department [place] [address] * (ABNORMAL) Sepsis Lactate w/ Reflex (07/30/2024 4:31 PM CDT) Sepsis Lactate 2.6(H) 0.7 - 2.0 mmol/L Blood 07/30/2024 4:31 PM CDT 07/30/2024 4:35 PM CDT Funmilayo RIZVI LAB BLOOD ORDERABLES Final Resu lt [facility] ([place]) 1 [facility] [place] [address] * CT Lumbar Spine WO Contrast (07/30/2024 [...] disc bulge and facet arthrosis results in mdvi-pl-jxexprfl bilateral neural foraminal narrowing. No significant spinal canal narrowing. L4/L5: Concentric disc bulge, ligamentum flavum thickening, and facet arthrosis results in moderate left and mild right neural foraminal narrowing. Mild spinal canal narrowing. L5/S1: Concentric disc bulge, ligamentum flavum thickening, and facet arthrosis results in severe left and xyxjsoxk-sa-gspird right neural foraminal narrowing. Mild spinal canal [...] L5-S1 where there is severe left and rkdxmaij-zi-rwhgzz right neural foraminal narrowing. Incidental and chronic findings including osteoporosis and diffuse idiopathic skeletal hyperostosis. THIS IS AN ELECTRONICALLY VERIFIED FINAL REPORT 07/30/2024 5:01 PM - Electronically signed by Benjie Sargent M.D. NS: NS Report ID: [id number] Reading Location: [id number] Procedure Note Benjie Sargent MD - 07/30/2024 [...] Concentric disc bulge and facet arthrosis results tzappm-jk-zcounacv bilateral neural foraminal narrowing. No significant spinal canalnarrowing. L4/L5: Concentric disc bulge, ligamentum flavum thickening, and facet arthrosis results in moderate left and mild right neural foraminalnarrowing. Mild spinal canal narrowing. L5/S1: Concentric disc bulge, ligamentum flavum thickening, and facet arthrosis results in severe left and jnmjgpsg-cd-pkcmoo right neuralforaminal narrowing. Mild spinal canal narrowing. [...] atL5-S1 where there is severe left and qkdfmtcn-ya-dpamim right neural foraminal narrowing. Incidental and chronic findings including osteoporosis and diffuseidiopathic skeletal hyperostosis. THIS IS AN ELECTRONICALLY VERIFIED FINAL REPORT 07/30/2024 5:01 PM - Electronically signed by Benjie Sargent M.D. NS: NS Report ID: [id number] Reading Location: [id number] Leelee RIZVI IMG CT PROCEDURES Final R [...] Benjie Sargent M.D. NS: NS Report ID: [id number] Reading Location: [id number] Procedure Note Benjie Sargent MD - 07/30/2024 [...] Sagittal and coronal images reconstructed. Images stored onHydroboltCS. Automated exposure control was used as a [...] Benjie Sargent M.D. NS: NS Report ID: [id number] Reading Location: [place] [address] PROCEDURES Final R esult * Influenza A/B, RSV, and COVID-19 PCR Nasopharyngeal (07/30/2024 3:52 PM CDT) COVID-19 RNA Negative Negative Influenza A RNA Negative Negative [facility] ([place]) Influenza B RNA Negative Negative [facility] ([place]) RSV RNA Negative Negative [facility] ([place]) Comment: Interpretive data: Testing performed by [facility]. This test is performed using the [employer] Xpert Xpress CoV-2/Flu/RSV plus assay. This is a multiplex, real- time reverse transcriptase PCR assay intended for the qualitative detection of nucleic acid from SARS-CoV-2, influenza A, influenza B, and respiratory syncytial virus. This assay has been cleared by the [place] Food and Drug administration. The performance characteristics have been verified by the [facility]. Results must be considered in the clinical context, and a negative result does not rule out infection. Interpretive Data last revised 2023 Nasopharyngeal 07/30/2024 3: 52 PM CDT 07/30/2024 3:56 PM CDT Narrative [facility] ([place]) - 07/30/2024 4:37 PM CDT Is the Patient experiencing symptoms consistent with COVID?->Yes Leelee RIZVI LAB MICROBIOLOGY - GENERA L ORDERABLES Final Result [facility] ([place]) 1 [facility] Department [place] [address] * (ABNORMAL) Urinalysis reflex to microscopic and [...] tendency for uric acid stone formation. Source: [facility] Current Interpretive Data was last revised [...] [place]) Nitrite, ur Negative Negative [facility] A ([place]) Leukocyte esterase, ur Negative Negative [facility] ([place]) UA reflex comment Reflex conditions for microscopic UA and culture not met. [facility] ([place]) Urine 07/30/2024 3:06 PM CDT 07/30/2024 3:09 PM CDT Nikolas Doty MD LAB MICROBIOLOGY - GENERAL ORD ERABLES Final Result Performing Organization Address City/[facility] Co de Phone Number [facility] ([place]) 1 [facility] [place] [address] * (ABNORMAL) Sepsis Lactate w/ Reflex (07/30/2024 1:57 PM CDT) Pathologist [facility] Sepsis Lactate 3.3(H) 0.7 - 2.0 mmol/L Blood 07/30/2024 1:57 PM CDT 07/30/2024 2:01 PM CDT Funmilayo RIZVI LAB BLOOD ORDERABLES Final Resu lt [facility] ([place]) 1 [facility] [place] [address] * (ABNORMAL) eGFR (07/30/2024 1:57 PM CDT) [...] ORDERABLES Final Res ult Performing Organization Address City/[facility]/ZIP Co de Phone Number [facility]A [facility] ([place]) 1 [facility] [place] [address] * (ABNORMAL) Differential, auto (07/30/2024 1:57 PM [...] Lymphocyte pct 11.5 % [facility] ([place]) Comment: Interpretive Data Percent cell count reference [...] LAB BLOOD ORDERABLES Final Res ult [facility] ([place]) 1 [facility] [place] [address] * (ABNORMAL) CBC with auto differential (07/30/2024 [...] MD LAB BLOOD ORDERABLES Final Res ult [facility] 1 [facility] [place] [address] * (ABNORMAL) Comprehensive metabolic panel (07/30/2024 1:57 PM CDT) Pathologist [facility] Sodium 139 135 - 145 mmol/L Potassium, pl 3.2(L) 3.3 - 4.9 mmol/L [facility] Chloride 100 97 - [...] MD LAB BLOOD ORDERABLES Final Res ult [facility] 1 [facility] [place] [address] * (ABNORMAL) Troponin T high-sensitivity series (baseline, [...] BLOOD ORDERABLES Holly l Result J[facility]A [facility] ([place]) 1 [facility] [place] [address] * XR Chest 1 Vw Portable (07/30/2024 [...] Jim Garcia M.D. AM: AM Report ID: [id number] Reading Location: [id number] Procedure Note Jim Garcia MD - 07/30/2024 [...] Jim Garcia M.D. AM: AM Report ID: [id number] Reading Location: [place] [address] Funmilayo RIZVI IMG XR PROCEDURES Final Result * (ABNORMAL) Hemoglobin A1c (08/30/2023 2:23 [...] and children were not included. (Diabetes Care 31:7001-4734, 2008). The eAG is not equivalent to a fasting glucose. Blood 08/30/2023 2:23 AM CDT 08/30/2023 12:50 PM CDT Destiny Devi [employer] LAB BLOOD ORDERABLES Final R esult [facility]A [facility] ([place]) 1 [facility] [place] [address] * (ABNORMAL) Lipid panel (08/28/2023 8:27 PM [...] LAB BLOOD ORDERABLES Final Re sult J[facility]IETA [facility]) 1 [facility] [place] [address] * PSA screen (10/28/2021 2:47 PM CDT) PSA-Total 3.15 <=5.40 ng/mL JULIETA [facility]) Comment: Interpretive Data AGE SEX REFERENCE INTERVAL [...] data last revised 21. Testing performed by: [facility], [address] [place] [address], [place]., [address] Blood 10/28/2021 2:47 PM CDT 10/28/2021 7:50 PM CDT Sohail Gould MD LAB BLOOD ORDERABLES Holly l Result Performing Organization Address [facility]/ZIP Co de Phone Number JULIETA GUERRERO (ROSA [place]) [address] [facility] [place] [address] * (ABNORMAL) Albumin Creatinine Ratio, Urine (10/28/2021 2:47 PM CDT) Albumin Ur 713.6 mg/L [facility] ([place]) Comment: Interpretive Data No reference range established. Current interpretive data was last revised 2018. Testing performed by: [facility], [address] [place] [address]., [id number] Creatinine Ur 343.1 mg/dL [facility] ([place] Comment: Interpretive Data No reference range established. Current interpretive data was last revised 2018. Testing performed by: [facility], [address] [place] [address]., [id number] Albumin Creatinine Ratio, Ur 208(H) 1 - 29 mg/g [facility] ([place]) Comment:Testing performed by : [address] [id number] Urine 10/28/2021 2:47 PM CDT 10/28/2021 9:10 PM CDT Sohail Gould MD LAB URINE ORDERABLES Holly l Result Performing Organization Address [facility]/ZIP Co de Phone Number JULIETA GUERRERO ([place]) [address] [facility] [place] [address] * Stool DNA - Cologuard (11/30/2020) Scribed Stool DNA - Cologuard Negative EXTERNAL LAB Stool Historical Provider LAB BODY FLUIDS AND STOOL S ORDERABLES Final Result EXTERNAL LAB from Last 3 Months or Most Recently Relevant to Health Maintenance Insurance [employer]PA [facility] MEDICARE ADVANTAGE IDPA [facility] MEDICARE ADVANTAGE [place] [id number] IDPA Advance Directives For more information, please contact: [phone] * Full Code (Latest Code Status on [...] 8:46 PM 08/29/2023 4:46 PM Care Teams Manager Freelance Relationship Specialty Start Date End Date Melchor Woodard MD PCP - General Family Practice 07/30/22 Nicolas Jung MD Surgeon Orthopedic Surgery 08/05/21 Louie Lomeli MD Consulting Physician Cardiology 12/23/21 Jairo Sparrow MD [address] [place] [address] [place] [id number] Consulting Physician Neurology 12/14/22
--- OUTSIDE RECORDS SUMMARY | 2024-09-26 11:34 | XMS_ITS | Clinical Summary ---
Author Organization [facility] [place] [facility] Address [address] [facility] [place] [address] Care Team Providers Care Can Sorter Name Role Phone Nicolas Jung MD Unavailable [phone] Louie Lomeli MD Unavailable [phone] Melchor Woodard MD Primary Care Provider [phone] Jairo Sparrow MD Unavailable [phone] Allergies Active Allergy Reactions Criticality Noted Date Comments Ceftriaxone Nausea only Low 09/23/2021 Typtvjb-Mpq-Ben Reductase Inhibitors Other (See comments) Low 01/26/2018 Generalized pain Medications losartan (COZAAR) 25 mg tablet Take 1 tablet (25 mg total) by mouth daily 023 Active levothyroxine (SYNTHROID) 50 mcg tablet Take 1 tablet (50 mcg total) by mouth 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 NEED TO SCHEDULE APPOINTMENT 60 tablet Active ezetimibe (ZETIA) 10 mg tabletIndicati ons:hyperlipid emia TAKE 1 TABLET (10 MG TOTAL) BY MOUTH DAILY 30 tablet 2025 Active empagliflozin (JARDIANCE) 25 mg tabletIndicati [...] mg total) by mouth daily 30 tablet 025 2025 Active calcium carbonate-elsa min D3 [...] hours as needed for pain 21 tablet 025 2024 Discontinued(T herapy completed) traMADoL (ULTRAM) 50 [...] 06/01/2022 Assessment & Plan (06/01/2022 3:29 PM CLINICAL ASSISTANT PROFESSOR): Worsening, patient reports symptoms are worse 1st thing in the morning, has to clean eyes before can open; fewer symptoms throughout the day; most consistent with allergic conjunctivitis Start azelastine eyedrops Diabetic neuropathy, type II diabetes mellitus 0 05/27/2022 LALITO (acute kidney injury) 03/10/2022 Obesity (BMI 30-39.9) 03/10/2022 Other chest pain 03/09/2022 Assessment & Plan (06/01/2022 3:28 PM CLINICAL ASSISTANT PROFESSOR): Continues to have episodes of chest pain, started in nature; can radiate to right-side of chest Patient reports some relief with ASA; has nitroglycerin Will continue to monitor; if negative cardio workup, consider esophageal spasms of source of pain Assessment & Plan (04/06/2022 11:47 AM CLINICAL ASSISTANT PROFESSOR): Reports pressure-like chest pain today, worsening fatigue [...] (12/29/2021): Added automatically from request for surgery [id number] Leukocytosis 12/19/2021 UTI (urinary tract infection) 12/19/2021 Coronary artery disease 12/18/2021 Overview (12/18/2021): Added automatically from request for surgery [id number] Assessment & Plan (03/07/2022 9:41 AM CLINICAL ASSISTANT PROFESSOR): Not well controlled, patient had stopped taking all medications, had elevated blood pressures today Encouraged patient to continue medications as prescribed Continue Brilinta 90 mg b.i.d., Zetia 10 mg daily Hypertensive crisis 12/16/2021 Assessment & Plan (12/17/2021 12:13 PM CDT): Present on admission, received Labetalol iv, currently resolved NSTEMI (non-ST elevated myocardial infarction) 0 12/16/2021 Overview (12/17/2021): Added automatically from request for surgery [id number] Assessment & Plan (01/10/2022 9:21 PM CDT): [...] Nasal saline spray (Simply saline, Little Remedies, [place], [place]) 2 second sprays or 2 squeezes into [...] (11/18/2020): Added automatically from request for surgery [id number] Assessment & Plan (03/20/2021 4:30 PM CLINICAL ASSISTANT PROFESSOR): Stable, patient waiting on improved A1c for [...] (11/18/2020): Added automatically from request for surgery [id number] Scar of vermilion border of upper lip 07/04/2020 Overview (07/04/2020): Referral to plastic surgery for evaluation and possible affects scar tissue Cicatrix 07/04/2020 Tension headache 06/30/2020 Assessment & Plan (06/25/2021 10:33 AM CLINICAL ASSISTANT PROFESSOR): Patient has recurrent left-sided tension headaches; likely secondary to pressure on muscles from lipoma Assessment & Plan (06/09/2021 1:59 PM CLINICAL ASSISTANT PROFESSOR): Patient has headache for the last 4-6 [...] nostril Assessment & Plan (06/30/2020 12:31 PM CLINICAL ASSISTANT PROFESSOR): Patient has severe left sided headache; reports worsened with looking down or leaning back in bed; may be related to sinuses vs tension type headache -given congestion may consider sinus pressure and will refer to ENT Chronic midline low back pain without sciatica 0 06/30/2020 Assessment & Plan (06/30/2020 12:33 PM CLINICAL ASSISTANT PROFESSOR): Not well controlled; likely worsened due to poor core strength; encouraged weight loss to reduce strain on lower back (has severe central adiposity) Will give patient core exercises to strengthen low back and abodmen Lipoma of neck 06/25/2020 Assessment & Plan (06/25/2021 10:32 AM CLINICAL ASSISTANT PROFESSOR): Not well controlled, patient has left-sided tension style headaches, S with noted changing position of head due to size of lipoma Patient benefit from surgical removal to help improve overall posture as well as potentially improved tension headaches Assessment & Plan (05/14/2021 1:29 PM CLINICAL ASSISTANT PROFESSOR): Patient has large lipoma on back left-sided neck; reports left-sided headaches, which may be contributed by lipoma putting pressure on muscles sugar causing tension headaches Referral to Plastic surgery for removal Assessment & Plan (03/20/2021 4:29 PM CLINICAL ASSISTANT PROFESSOR): Stable, Impacts patient ability to turn had; will continue monitor refer to surgery when appropriate Primary osteoarthritis of left knee 05/08/2020 Assessment & Plan (11/17/2021 3:53 PM CDT): Continues to have significant pain, has some symptom improvement, but limited range of motion and pain with movement Recent steroid injection Follow-up with orthopedics Assessment & Plan (04/21/2021 2:52 PM CLINICAL ASSISTANT PROFESSOR): Stable, continues with physical therapy which is [...] monitor Assessment & Plan (05/14/2021 1:29 PM CLINICAL ASSISTANT PROFESSOR): Improving, patient has walked about 12 lb since last visit; encouraged continued dietary changes, decreasing in take through portion control as well as lowering carbohydrate intake Encourage daily activity of 30 minutes of moderate intensity aerobic exercise daily Assessment & Plan (03/20/2021 4:29 PM CLINICAL ASSISTANT PROFESSOR): Weight is stable, no significant change; patient [...] week Assessment & Plan (05/05/2020 3:33 PM CLINICAL ASSISTANT PROFESSOR): Not well controlled, patient reports weight loss [...] daily Assessment & Plan (06/25/2021 10:31 AM CLINICAL ASSISTANT PROFESSOR): Stable, unclear control, patient reports inconsistent medications use Continue levothyroxine 50 mcg daily, check TSH today Assessment & Plan (04/21/2021 2:52 PM CLINICAL ASSISTANT PROFESSOR): Stable, well controlled; continue levothyroxine 50 mcg daily Assessment & Plan (03/20/2021 4:28 PM CLINICAL ASSISTANT PROFESSOR): Stable, well controlled; continue levothyroxine 50 mcg daily Assessment & Plan (09/24/2020 3:00 PM CDT): Recheck TSH today as previous TSH was mildly elevated, is still elevated will adjust levothyroxine given patient has complaints of generalized fatigue Assessment & Plan (06/16/2020 9:09 AM CLINICAL ASSISTANT PROFESSOR): Will recheck thyroid now that has been on medication for ~6 weeks Assessment & Plan (05/05/2020 3:36 PM CLINICAL ASSISTANT PROFESSOR): Mild elevation of TSH, patient has multiple symptoms including inability to lose weight, chronic fatigue and chronic tiredness Will start at low dose levothyroxine 25 mcg, will recheck TSH in approximately 6 weeks Arthritis 03/24/2020 DM2 (diabetes mellitus, type 2) 03/24/2020 Assessment & Plan (06/01/2022 3:30 PM CLINICAL ASSISTANT PROFESSOR): Not well controlled, A1c has always been [...] diet Assessment & Plan (06/25/2021 10:31 AM CLINICAL ASSISTANT PROFESSOR): Stable, improving; patient A1c has been down trending to 7.5 last time, recheck A1c today Continue metformin XR 1000 mg daily Assessment & Plan (05/14/2021 1:28 PM CLINICAL ASSISTANT PROFESSOR): Stable, improving; last A1c was decreasing to 7.5 Encouraged patient to continue with low-carbohydrate diet; encourage education dietary changes as well as regular exercise Continue metformin 1000 mg daily Assessment & Plan (04/21/2021 2:52 PM CLINICAL ASSISTANT PROFESSOR): Stable, improving; patient reports he has been working on decreasing carbohydrates Has a decreased appetite well on Rybelsuswith minimal side effects Continue metformin 1000 mg daily with breakfast, Rybelsus 7 mg prior to breakfast Continue to monitor encourage continued decreased carbohydrate diet Recheck labs at follow-up appointment Assessment & Plan (03/20/2021 4:28 PM CLINICAL ASSISTANT PROFESSOR): Stable, well controlled, improving Patient reports improved [...] diet Assessment & Plan (05/05/2020 3:32 PM CLINICAL ASSISTANT PROFESSOR): Not well controlled, A1c is 7.7 today [...] strength Assessment & Plan (03/26/2020 12:24 PM CLINICAL ASSISTANT PROFESSOR): Will check blood sugars and A1c to evaluate for control of diabetes on metformin Hyperlipidemia 03/24/2020 Assessment & Plan (12/17/2021 12:16 PM CDT): Pt is not on a statin due to intolerance LDL is 107. Started on Zetia per cardiology. Assessment & Plan (10/13/2021 2:34 PM CDT): Not well controlled, encouraged continued dietary changes and weight loss Assessment & Plan (05/14/2021 1:28 PM CLINICAL ASSISTANT PROFESSOR): Not well controlled, patient cannot tolerate statins; encouraged dietary changes order reduce cholesterol through low-fat high-fiber diet Assessment & Plan (05/05/2020 3:35 PM CLINICAL ASSISTANT PROFESSOR): Poorly controlled patient has elevated total and LDL cholesterol with knee depressed HDL cholesterol Triglycerides are also elevated at 254 Patient is unable to tolerate statin therapy due to muscular pain of thigh muscles Will encouraged diet and exercise as ways to maintain and modify cholesterol level Hypertension, essential 03/24/2020 Assessment & Plan (06/01/2022 3:30 PM CLINICAL ASSISTANT PROFESSOR): Stable, improving; blood pressure today in clinic was normal; patient reports home measurements are improving Continue amlodipine 10 mg daily, hydralazine 25 mg b.i.d., metoprolol 100 mg daily Losartan was previously on medication list, but not part of pharmacy was Given blood pressures appropriate, will continue to monitor, can rehab losartan if blood pressure increases Assessment & Plan (04/06/2022 11:47 AM CLINICAL ASSISTANT PROFESSOR): Stable, improving; most recent blood pressure was at target Continue losartan 100 mg daily, metoprolol 100 mg daily, amlodipine 10 mg daily Assessment & Plan (03/07/2022 9:40 AM CLINICAL ASSISTANT PROFESSOR): Not well controlled; patient reports that he [...] daily Assessment & Plan (06/25/2021 10:30 AM CLINICAL ASSISTANT PROFESSOR): Not well controlled; blood pressure is elevated this morning prior to surgery, elevated again in office Given blood pressure was just normal on 06/09/2021, will increase lisinopril to 40 mg daily Encouraged patient to consistently take medications, with no missed or skipped doses Assessment & Plan (05/14/2021 1:27 PM CLINICAL ASSISTANT PROFESSOR): Not well controlled, blood pressure remains elevated; patient has been inconsistent with taking medications Will continue lisinopril 20 mg, follow-up at next appointment; if blood pressure still is elevated will adjust medication Assessment & Plan (03/20/2021 4:27 PM CLINICAL ASSISTANT PROFESSOR): Stable well controlled; blood pressure a target; [...] needed Assessment & Plan (05/05/2020 3:34 PM CLINICAL ASSISTANT PROFESSOR): Well controlled, patient's blood pressure is at target today Will continue with current therapies and continue to monitor patient Assessment & Plan (03/26/2020 12:24 PM CLINICAL ASSISTANT PROFESSOR): Stable well controlled, continue present management Post-traumatic [...] arthroscopy Assessment & Plan (06/16/2020 9:09 AM CLINICAL ASSISTANT PROFESSOR): Not well controlled, had relief with cortisone injection, but now has worsening pain; relief last for about 3-4 weeks -has some instability of patella, able to 'adjust' patella to relieve pain and improve ROM Assessment & Plan (05/05/2020 3:34 PM CLINICAL ASSISTANT PROFESSOR): Stable, not controlled Patient is not able to consistently place weight on the Patient to follow-up with orthopedics further evaluation, based on recommendations may refer to physical therapy Assessment & Plan (03/26/2020 12:24 PM CLINICAL ASSISTANT PROFESSOR): Will start treatment with diclofenac cream, and use of the triamcinolone as necessary If needed will refer to physical therapy for further improvement in pain Polyneuropathy associated with underlying diseas e ([facility]) 10/24/2019 Assessment & Plan (04/06/2022 11:44 AM CLINICAL ASSISTANT PROFESSOR): Continues to have numbness and weakness in bilateral legs; patient scheduled nerve conduction study Continue gabapentin 100 mg TID Continue with exercise, and strength training; noted to have decreased strength in hip flexors; normal with knee -if EMG is normal, consider CK or evaluation of polymyalgia or polymysitis Assessment & Plan (05/05/2020 3:34 PM CLINICAL ASSISTANT PROFESSOR): Patient has episodes of decreased balance due [...] management Assessment & Plan (06/25/2021 10:32 AM CLINICAL ASSISTANT PROFESSOR): Not well controlled, patient continues to have frequent nighttime urination; encouraged patient to continue follow-up with Urology and reschedule surgery Continue myrbetriq 50 mg daily Assessment & Plan (03/20/2021 4:30 PM CLINICAL ASSISTANT PROFESSOR): Patient continues to have increased urinary frequency, [...] CDT - 09/17/2024 12:39 PM CDT Emergency [facility] Emergency Department [address] [place] [address] Gouty arthritis of left foot (Primary Dx) Discharge Disposition: Discharge to home or self care 08/13/2024 Orders Only [facility] [place] [facility] [address] [place] [address] [address], [place] [address] Effie Avelar NP Dizziness and giddiness (Primary Dx) 08/13/2024 Telephone [facility] [place] [facility] [address] [place] [address] [address], [place] [address] Jairo Sparrow MD 08/10/2024 11:13 AM CDT - 08/10/2024 1:21 PM CDT Emergency [facility] Emergency Department [address] [place] [address] Gouty arthritis of left foot (Primary Dx) Discharge Disposition: Discharge to home or self care 08/09/2024 Documentation [facility] Case Management [address] [place] [address] Rodriguez Goldstein RN 07/30/2024 2:40 PM CDT - 08/02/2024 4:22 PM CDT Hospital Encounter [facility] Acute Medicine [address] [place] [address] Krystal Araujo MD Singh, Arjun, MD Dizziness (Primary Dx); Dehydration; Dizziness and giddiness; Hypertension, essential; Class 2 severe obesity due to excess calories with serious comorbidity and body mass index (BMI) of 35.0 to 35.9 in adult (HCC); Leg weakness, bilateral Discharge Disposition: Discharge to home or self care 07/10/2024 Telephone [facility] [address] [facility] [address] [place] [address] Nicolas Jung MD from Last [...] materials from doctor or pharmacy Sometimes 01/17/2024 [facility] Utilities Answer Date Recorded In the past 12 months has e [employer], oil, or water [employer] threatened to shut off services in your [...] 07/31/2024 How often do you attend chur or druze services? Never 07/31/2024 Do you belong to [...] in the past 12 m [facility], were you homeless or living in a usp (including now)? No 07/31/2024 Personal Safety Answer [...] on file Legal Sex Male 12:23 AM CLINICAL ASSISTANT PROFESSOR Gender Identity Not on file Sexual Orientation [...] (2023-2 5 season) 2024 03/25/2021, 07/08/2020, 06/10/2020 Depression [...] Discontinued 10/28/2021 Medical Devices Implanted Type Area Office Worker Device Identifier Shelf Expiration Date Model / Serial / Lot [employer] Synergy Xd Monorail 3.5mm 12mm 144cm Delivery System 1 Access [id number] - [id number] Implanted:Qty: 1 on 08/29/2023 by Louie Lomeli MD at [facility] Stent [employer] 10/19/2024 [id number] / [id number] [employer] Stent Coronary De Rx Cocr Xience Skypoint [id number] - [id number] Implanted:Qty: 1 on 12/17/2021 by Louie Lomeli MD at [facility] [employer] 08/24/2023 [id number] [employer] Stent Coronary De Rx Cocr Xience Sk[employer]oint [id number] - [id number] Implanted:Qty: 1 on 12/17/2021 by Louie Lomeli MD at [facility] [employer] 08/28/2023 [id number] [employer] Synergy 3mm 16mm 144cm Radiopaque 1 Access Port Inflation Lumen [id number] - [id number] Implanted:Qty: 1 on 12/22/2021 by Louie Lomeli MD at [facility] [employer] 09/04/2022 [id number] / / [id number] Formerly [facility] [employer] [facility] Angio-Seal Vip 6fr Closere Device [id number] - [id number] Implanted:Qty: 1 on 12/22/2021 by Louie Lomeli MD at [facility] [employer] [facility] 09/29/2022 [id number] / / [id number] Procedures Procedure Name Priority Date/Time Associated Diagnosis [...] LAB BLOOD ORDERABLES Final R esult JULIETA [facility] [address] [facility] Department [place] [address] * (ABNORMAL) Differential, auto (08/10/2024 11:58 AM CDT) Pathologist [facility] Neutrophil abs 10.62(H) 1.50 - 6.50 K/cumm [...] R esult JULIETA [facility]ERO ([place]) [address] [facility] Department [place] [address] * (ABNORMAL) CBC with auto differential (08/10/2024 [...] ORDERABLES Final R esult Performing Organization Address City/[facility]/ZIP Co de Phone Number JULIETA GU[facility]ERO ([place]) [address] [facility] [address] * Erythrocyte sedimentation rate (08/10/2024 11:58 AM CDT) Erythrocyte sedimentation rate 11 1 - 20 mm/hr Blood 08/10/2024 11:5 8 AM CDT 08/10/2024 12:00 PM CDT Stanley RIZVI LAB BLOOD ORDERABLES Final R esult Performing Organization Address City/[facility]/ZIP Co de Phone Number JULIETA GUERRERO ([place]) 1 [facility] [place] [address] * (ABNORMAL) CRP (acute phase) (08/10/2024 11:58 AM CDT) CRP 19.1(H) <=10.0 mg/L Blood 08/10/2024 11:5 8 AM CDT 08/10/2024 12:00 PM CDT Stanley RIZVI LAB BLOOD ORDERABLES Final R esult JULIETA GUERRERO ([place]) 1 [facility] [place] [address] * (ABNORMAL) Uric acid (08/10/2024 11:58 AM CDT) Uric acid 8.8(H) 3.0 - 8.0 mg/dL Blood 08/10/2024 11:5 8 AM CDT 08/10/2024 12:00 PM CDT Stanley RIZVI LAB BLOOD ORDERABLES Final R esult JULIETA [facility]ERO ([place]) 1 [facility] [place] [address] * (ABNORMAL) Comprehensive metabolic panel (08/10/2024 11:58 AM CDT) Pathologist [facility] Sodium 141 135 - 145 mmol/L Potassium, pl 3.5 3.3 - 4.9 mmol/L [facility] ([place]) Chloride 104 97 - 110 mmol/L [facility] ([place]) CO2 24 22 - 32 mmol/L [facility] ([place]) Anion gap 14 2 - 15 mmol/L [facility] ([place]) BUN 19 6 - 25 mg/dL [facility] ([place]) Creatinine 1.33(H) 0.80 - 1.30 mg/dL [facility] ([place]) Glucose 154 70 - 199 mg/dL [facility] ([place]) Comment: Interpretive Data Fasting glucose [...] R esult JULIETA [facility]ERO ([place]) 1 [facility] Department [place] [address] * XR Foot Left 3 or More Views (08/10/2024 10:10 AM CDT) Anatomical Region Laterality Modality Lower Extremities, Foot Left Computed Radiography 08/10/2024 10:5 2 AM CDT Narrative 08/10/2024 10:58 AM CDT EXAM DESCRIPTION: XR FOOT LEFT 3 OR MORE VIEWS REASON FOR STUDY: pain to foot Pt to ED via [facility]. Per Pt he has [...] Lawrence Clark M.D. MZ: INGRID Report ID: [id number] Reading Location: [place] [address] Procedure Note Lawrence Clark MD - 08/10/2024 EXAM DESCRIPTION: XR FOOT LEFT 3 OR MORE VIEWS REASON FOR STUDY: pain to foot Pt to ED via [facility]. Per Pt he has [...] Lawrence Clark M.D. MZ: INGRID Report ID: [id number] Reading Location: [id number] Xavi Murray MD IMG XR PROCEDURES F inal Result * POCT glucose (08/02/2024 11:54 AM CDT) [facility] Signature Glucose, POC 163 70 - 199 mg/dL Blood 08/02/2024 11:5 4 AM CDT 08/02/2024 11:54 AM CDT Corey Russo MD LAB POCT ORDERABLES - DEVICE Fin al Result JULIETA GUERRERO ([place]) 1 [facility] [place] [address] * POCT glucose (08/02/2024 8:05 AM CDT) Glucose, POC 123 70 - 199 mg/dL Blood 08/02/2024 8:05 AM CDT 08/02/2024 8:05 AM CDT Corey Russo MD LAB POCT ORDERABLES - DEVICE Fin al Result Performing Organization Address [facility] Co de Phone Number JULIETA GUERRERO ([place]) 1 [facility] [place] [address] * (ABNORMAL) eGFR (08/02/2024 4:04 AM CDT) [...] LAB BLOOD ORDERABLES Fi nal Result JULIETA [facility] [address] [facility] Department [place] [address] * (ABNORMAL) Differential, auto (08/02/2024 4:04 AM CDT) Neutrophil abs 6.45 1.50 - 6.50 K/cumm Imm gran abs 0.34(H) 0.00 - 0.10 K/cumm [facility] ([place]) Lymphocyte abs 1.22 0.80 - 3.30 K/cumm [facility] ([place]) Monocyte abs 0.72 0.20 - 0.80 K/cumm [facility] ([place]) Eosinophil abs 0.08 0.00 - 0.50 K/cumm [facility] ([place]) Basophil abs 0.07 0.00 - 0.10 K/cumm [facility] ([place]) Neutrophil pct 72.7 % [facility] ([place]) Comment: Interpretive Data Percent cell count reference ranges are not reported, since discordance with absolute values may lead to misinterpretation of CBC data. Current Interpretive Data was last revised on 2017. Imm gran pct 3.8 % [facility] ([place]) Comment: Interpretive Data Percent cell count reference ranges are not reported, since discordance with absolute values may lead to misinterpretation of CBC data. Current Interpretive Data was last revised on 2017. Lymphocyte pct 13.7 % [facility] ([place]) Comment: Interpretive Data Percent cell count reference ranges are not reported, since discordance with absolute values may lead to misinterpretation of CBC data. Current Interpretive Data was last revised on 2017. Monocyte pct 8.1 % [facility] ([place]) Comment: Interpretive Data Percent cell count reference ranges are not reported, since discordance with absolute values may lead to misinterpretation of CBC data. Current Interpretive Data was last revised on 2017. Eosinophil pct 0.9 % [facility] ([place]) Comment: Interpretive Data Percent cell count reference [...] nal Result [facility] ([place]) [address] [facility] [place] [address] * CBC with auto differential (08/02/2024 4:04 [...] nal Result [facility] ([place]) [address] [facility] Department [place] [address] * (ABNORMAL) Comprehensive metabolic panel (08/02/2024 4:04 [...] BLOOD ORDERABLES Fi nal Result JULIETA [facility] ([place]) 1 [facility] [place] [address] * POCT glucose (08/02/2024 1:52 AM CDT) Glucose, POC 130 70 - 199 mg/dL Blood 08/02/2024 1:52 AM CDT 08/02/2024 1:52 AM CDT us Corey Russo MD LAB POCT ORDERABLES - DEVICE Fin al Result Performing Organization Address [facility] Co de Phone Number JULIETA GUERRERO ([place]) 1 [facility] [place] [address] * (ABNORMAL) POCT glucose (08/01/2024 7:54 PM CDT) Glucose, POC 235(H) 70 - 199 mg/dL Blood 08/01/2024 7:54 PM CDT 08/01/2024 7:54 PM CDT us Corey Russo MD LAB POCT ORDERABLES - DEVICE Fin al Result Performing Organization Address City/[facility]/ZIP Co de Phone Number JULIETA GUERRERO ([place]) 1 [facility] [place] [address] * POCT glucose (08/01/2024 4:25 PM CDT) Glucose, POC 118 70 - 199 mg/dL Blood 08/01/2024 4:25 PM CDT 08/01/2024 4:25 PM CDT us Corey Russo MD LAB POCT ORDERABLES - DEVICE Fin al Result Performing Organization Address City/[facility]/ZIP Co de Phone Number JULIETA GUERRERO ([place]) 1 [facility] [place] [address] * MRI Thoracic Spine WO Contrast (08/01/2024 [...] No significant spinal stenosis. C2-C3: Disc bulge. Wkpx-fm-pxkkvrzq facet arthropathy. Mild uncovertebral arthropathy. Mild right [...] Lawrence Clark M.D. MZ: INGRID Report ID: [id number] Reading Location: [id number] Procedure Note Lawrence Clark MD - 08/01/2024 [...] No significant spinal stenosis. C2-C3: Disc bulge. Xmyu-bb-hohldbgr facet arthropathy. Milduncovertebral arthropathy. Mild right neural [...] Lawrence Clark M.D. MZ: INGRID Report ID: [id number] Reading Location: [id number] us Diomedesnuha Haywood SCR[facility] CAR[facility]ER IMG MRI PROCEDURES Final Re sult * [...] No significant spinal stenosis. C2-C3: Disc bulge. Rpcj-ok-etbavsyp facet arthropathy. Mild uncovertebral arthropathy. Mild right [...] 4:57 PM - Electronically signed by Lawrence WongD. MZ: INGRID Report ID: [id number] Reading Location: [id number] Procedure Note Lawrence Clark MD - 08/01/2024 [...] No significant spinal stenosis. C2-C3: Disc bulge. Kuvl-kh-lyjrfjle facet arthropathy. Milduncovertebral arthropathy. Mild right neural [...] Lawrence Clark M.D. MZ: INGRID Report ID: [id number] Reading Location: [id number] Diomedes JMary Ellen Haywood [facility] IMG MRI PROCEDURES Final Re sult * [...] Lawrence Clark M.D. MZ: INGRID Report ID: [id number] Reading Location: [id number] Procedure Note Lawrence Clark MD - 08/01/2024 EXAM DESCRIPTION: MRI BRAIN WO CONTRAST REASON FOR STUDY: Ataxia, nontraumatic, stroke excluded, Gaitinstability and falls Ataxia, Gait instability and falls TECHNIQUE: Multiplanar imaging includes non-contrasted T1, T2, FLAIR, and diffusion with ADC map sequences. Additional sequence(s) sensitive Achieve3000 products. Images stored on PACS. COMPARISON: 02/03/2023.. [...] Lawrence Clark M.D. MZ: MZ Report ID: [id number] Reading Location: [id number] us Mike Harris MD IMG MRI PROCEDURES Final Result * POCT glucose (08/01/2024 11:37 AM CDT) Glucose, POC 161 70 - 199 mg/dL Blood 08/01/2024 11:3 7 AM CDT 08/01/2024 11:37 AM CDT us Corey Russo MD LAB POCT ORDERABLES - DEVICE Fin al Result JULIETA GUERRERO ([place]) 1 [facility] [place] [address] * POCT glucose (08/01/2024 7:44 AM CDT) Glucose, POC 115 70 - 199 mg/dL Blood 08/01/2024 7:44 AM CDT 08/01/2024 7:44 AM CDT us Corey Russo MD LAB POCT ORDERABLES - DEVICE Fin al Result JULIETA GUERRERO ([place]) 1 [facility] [place] [address] * (ABNORMAL) eGFR (08/01/2024 5:53 AM CDT) [...] BLOOD ORDERABLES Fi nal Result JULIETA GUERRERO ([place]) [address] Department [place] [address] * (ABNORMAL) Differential, auto (08/01/2024 5:53 AM CDT) Neutrophil abs 7.14(H) 1.50 - 6.50 K/cumm Imm gran abs 0.20(H) 0.00 - 0.10 K/cumm [facility] ([place]) Lymphocyte abs 1.16 0.80 - 3.30 K/cumm [facility] ([place]) Monocyte abs 0.65 0.20 - 0.80 K/cumm [facility] ([place]) Eosinophil abs 0.08 0.00 - 0.50 K/cumm [facility] ([place]) Basophil abs 0.04 0.00 - 0.10 K/cumm [facility] ([place]) Neutrophil pct 77.0 % [facility] ([place]) Comment: Interpretive Data Percent cell count reference ranges are not reported, since discordance with absolute values may lead to misinterpretation of CBC data. Current Interpretive Data was last revised on 2017. Imm gran pct 2.2 % [facility] ([place]) Comment: Interpretive Data Percent cell count reference ranges are not reported, since discordance with absolute values may lead to misinterpretation of CBC data. Current Interpretive Data was last revised on 2017. Lymphocyte pct 12.5 % [facility] ([place]) Comment: Interpretive Data Percent cell count reference ranges are not reported, since discordance with absolute values may lead to misinterpretation of CBC data. Current Interpretive Data was last revised on 2017. Monocyte pct 7.0 % [facility] ([place]) Comment: Interpretive Data Percent cell count reference ranges are not reported, since discordance with absolute values may lead to misinterpretation of CBC data. Current Interpretive Data was last revised on 2017. Eosinophil pct 0.9 % [facility] ([place]) Comment: Interpretive Data Percent cell count reference ranges are not reported, since discordance with absolute values may lead to misinterpretation of CBC data. Current Interpretive Data was last revised on 2017. Basophil pct 0.4 % [facility] ([place]) Comment: Interpretive Data Percent cell count reference ranges are not reported, since discordance with absolute values may lead to misinterpretation of CBC data. Current Interpretive Data was last revised on 2017. Blood 08/01/2024 5:53 AM CDT 08/01/2024 5:58 AM CDT us Krystal Araujo MD LAB BLOOD ORDERABLES Fi nal Result Performing Organization Address City/[facility] Co de Phone Number [facility] ([place]) 1 [facility] [address] * CBC with auto differential (08/01/2024 5:53 [...] ORDERABLES Fi nal Result Performing Organization Address City/[facility]/ZIP Co de Phone Number JULIETA GUERRERO ([place]) 1 [facility] [address] * Magnesium (08/01/2024 5:53 AM CDT) Magnesium 2.0 1.4 - 2.5 mg/dL Blood 08/01/2024 5:53 AM CDT 08/01/2024 5:58 AM CDT us Krystal Araujo MD LAB BLOOD ORDERABLES Fi nal Result [facility] ([place]) 1 [facility] Department [place] [address] * (ABNORMAL) Comprehensive metabolic panel (08/01/2024 5:53 [...] [place]) AST 14 10 - 50 Units/L [facility] ([place]) Blood 08/01/2024 5:53 AM CDT 08/01/2024 5:58 AM CDT us Krystal Araujo MD LAB BLOOD ORDERABLES Fi nal Result JULIETA GUERRERO ([place]) [address] [place] [address] [place] [address] * POCT glucose (08/01/2024 1:32 AM CDT) Glucose, POC 137 70 - 199 mg/dL Blood 08/01/2024 1:32 AM CDT 08/01/2024 1:32 AM CDT Corey Russo MD LAB POCT ORDERABLES - DEVICE Fin al Result JULIETA [facility] ([place]) [address] [place] [address] [place] [address] * POCT glucose (07/31/2024 8:49 PM CDT) Glucose, POC 182 70 - 199 mg/dL Blood 07/31/2024 8:49 PM CDT 07/31/2024 8:49 PM CDT Corey Russo MD LAB POCT ORDERABLES - DEVICE Fin al Result JULIETA GUERRERO ([place]) 1 [facility] [place] [address] * POCT glucose (07/31/2024 4:16 PM CDT) Glucose, POC 130 70 - 199 mg/dL Blood 07/31/2024 4:16 PM CDT 07/31/2024 4:16 PM CDT us Corey Russo MD LAB POCT ORDERABLES - DEVICE Fin al Result Performing Organization Address City/[facility]/ZIP Co de Phone Number JULIETA GUERRERO ([place]) 1 [facility] [place] [address] * POCT glucose (07/31/2024 11:47 AM CDT) Glucose, POC 172 70 - 199 mg/dL Blood 07/31/2024 11:4 7 AM CDT 07/31/2024 11:47 AM CDT Corey Russo MD LAB POCT ORDERABLES - DEVICE Fin al Result Performing Organization Address [facility] de Phone Number JULIETA GUERRERO ([place]) 1 [facility] [place] [address] * (ABNORMAL) eGFR (07/31/2024 6:59 AM CDT) [...] LAB BLOOD ORDERABLES Fi nal Result JULIETA [facility] ([place]) 1 [facility] Department [place] [address] * (ABNORMAL) Differential, auto (07/31/2024 6:59 AM CDT) Neutrophil abs 7.6(H) 1.5 - 6.5 K/cumm Imm gran abs 0.2(H) 0.0 - 0.1 K/cumm [facility] ([place]) Lymphocyte abs 1.2 0.8 - 3.3 K/cumm [facility] ([place]) Monocyte abs 0.7 0.2 - 0.8 K/cumm [facility] ([place]) Eosinophil abs 0.1 0.0 - 0.5 K/cumm [facility] ([place]) Basophil abs 0.1 0.0 - 0.1 K/cumm [facility] ([place]) Neutrophil pct 77.5 % [facility] ([place]) Comment: Interpretive Data Percent cell count reference [...] Araujo MD LAB BLOOD ORDERABLES nal Result [facility] ([place]) 1 [facility] Department [place] [address] * CBC with auto differential (07/31/2024 6:59 [...] nal Result JULIETA GUERRERO ([place]) 1 [place] [address] * Magnesium (07/31/2024 6:59 AM CDT) Pathologist [facility] Magnesium 2.1 1.4 - 2.5 mg/dL Blood 07/31/2024 6:59 AM CDT 07/31/2024 7:38 AM CDT Krystal Araujo MD LAB BLOOD ORDERABLES Fi nal Result Performing Organization Address [facility] Co de Phone Number JULIETA GUERRERO ([place]) 1 [place] [address] * (ABNORMAL) Comprehensive metabolic panel (07/31/2024 6:59 AM CDT) Sodium 144 135 - 145 mmol/L Potassium, pl 3.3 3.3 - 4.9 mmol/L [facility] ([place]) Chloride 106 97 - 110 mmol/L [facility] ([place]) CO2 25 22 - 32 mmol/L [facility] ([place]) Anion gap 13 2 - 15 mmol/L [facility] ([place]) BUN 24 6 - 25 mg/dL [facility] ([place]) Creatinine 1.40(H) 0.80 - [...] ORDERABLES Fi nal Result Performing Organization Address City/[facility]/ZIP Co de Phone Number JULIETA GUERRERO ([place]) 1 [facility] [place] [address] * Thyroid Function Dale (07/31/2024 6:57 AM CDT) TSH 3.00 0.30 - 4.20 mcIUnit/mL Blood 07/31/2024 6:57 AM CDT 07/31/2024 9:01 AM CDT Corey Russo MD LAB BLOOD ORDERABLES Final Resul t Performing Organization Address City/[facility]/ZIP Co de Phone Number JULIETA GUERRERO ([place]) 1 [facility] [employer] [address] * POCT glucose (07/31/2024 3:46 AM CDT) Glucose, POC 155 70 - 199 mg/dL Blood 07/31/2024 3:46 AM CDT 07/31/2024 3:46 AM CDT Krystal Araujo MD LAB POCT ORDERABLES - D EVICE Final Result Performing Organization Address City/[facility]/ZIP Co de Phone Number JULIETA GUERRERO ([place]) 1 [facility] [place] [address] * POCT glucose (07/31/2024 12:06 AM CDT) Glucose, POC 154 70 - 199 mg/dL Blood 07/31/2024 12:0 6 AM CDT 07/31/2024 12:06 AM CDT Krystal Araujo MD LAB POCT ORDERABLES - D EVICE Final Result Performing Organization Address City/[facility] Co de Phone Number JULIETA GUERRERO ([place]) 1 [place] [address] * POCT glucose (07/30/2024 9:50 PM CDT) Glucose, POC 180 70 - 199 mg/dL Blood 07/30/2024 9:50 PM CDT 07/30/2024 9:50 PM CDT Krystal Araujo MD LAB POCT ORDERABLES - D EVICE Final Result Performing Organization Address City/[facility]/ZIP Co de Phone Number JULIETA GUERRERO ([place]) 1 [facility] [place] [address] * (ABNORMAL) Troponin T high-sensitivity 6-hour (07/30/2024 7:46 PM CDT) Trop T hs 33(H) <=22 ng/L Comment: Interpretive Data For further hscTnT resources including the diagnostic algorithm and an aid in interpretation, copy and paste this link: https://nrl.testcatalog.org/show/hsTrop Current Interpretive Data last revised 2020. Trop T hs delta -2 ng/L [facility] ([place]) Trop T hs interp Insignificant [facility] ([place]) Blood 07/30/2024 7:46 PM CDT 07/30/2024 7:48 PM CDT us Leelee Villegas PA LAB BLOOD ORDERABLES Holly l Result Performing Organization Address [facility] Co de Phone Number JULIETA GURERERO ([place]) 1 [facility] [place] [address] * Sepsis Lactate w/ Reflex (07/30/2024 7:46 PM CDT) Pathologist [facility] Sepsis Lactate 1.6 0.7 - 2.0 mmol/L Blood 07/30/2024 7:46 PM CDT 07/30/2024 7:48 PM CDT us Funmilayo RIZVI LAB BLOOD ORDERABLES Final Resu lt Performing Organization Address [facility] Co de Phone Number JULIETA GUERRERO ([place]) 1 [facility] [place] [address] * POCT glucose (07/30/2024 6:59 PM CDT) [facility] Glucose, POC 128 70 - 199 mg/dL Blood 07/30/2024 6:59 PM CDT 07/30/2024 6:59 PM CDT us Notinfile Unknown LAB POCT ORDERABLES - DEVICE F inal Result Performing Organization Address [facility] Co de Phone Number JULIETA GUERRERO ([place]) 1 [facility] [place] [address] * (ABNORMAL) Troponin T high-sensitivity 4-hour (07/30/2024 [...] ORDERABLES Holly l Result Performing Organization Address City/[facility]/ZIP Co de Phone Number JULIETA GUERRERO ([place]) 1 [facility] [place] [address] * (ABNORMAL) Troponin T high-sensitivity 2-hour (07/30/2024 [...] 4:31 PM CDT 07/30/2024 4:35 PM CDT Leeele RIZVI LAB BLOOD ORDERABLES Holly l Result Performing Organization Address City/[facility]/ZIP Co de Phone Number JULIETA GUERRERO ([place]) 1 [facility] [place] [address] * (ABNORMAL) Sepsis Lactate w/ Reflex (07/30/2024 4:31 PM CDT) Sepsis Lactate 2.6(H) 0.7 - 2.0 mmol/L Blood 07/30/2024 4:31 PM CDT 07/30/2024 4:35 PM CDT Funmilayo RIZVI LAB BLOOD ORDERABLES Final Resu lt [facility] [place]) 1 [facility] Department [place] [address] * CT Lumbar Spine WO Contrast (07/30/2024 [...] disc bulge and facet arthrosis results in emxf-wk-azsjwrgb bilateral neural foraminal narrowing. No significant spinal canal narrowing. L4/L5: Concentric disc bulge, ligamentum flavum thickening, and facet arthrosis results in moderate left and mild right neural foraminal narrowing. Mild spinal canal narrowing. L5/S1: Concentric disc bulge, ligamentum flavum thickening, and facet arthrosis results in severe left and pedeolot-ar-kdugnl right neural foraminal narrowing. Mild spinal canal [...] L5-S1 where there is severe left and emvnxdgt-cg-uxbwhl right neural foraminal narrowing. Incidental and chronic findings including osteoporosis and diffuse idiopathic skeletal hyperostosis. THIS IS AN ELECTRONICALLY VERIFIED FINAL REPORT 07/30/2024 5:01 PM - Electronically signed by Benjie Sargent M.D. NS: NS Report ID: [id number] Reading Location: [id number] Procedure Note Benjie Sargent MD - 07/30/2024 [...] Concentric disc bulge and facet arthrosis results bbiaer-am-zfqgacws bilateral neural foraminal narrowing. No significant spinal canalnarrowing. L4/L5: Concentric disc bulge, ligamentum flavum thickening, and facet arthrosis results in moderate left and mild right neural foraminalnarrowing. Mild spinal canal narrowing. L5/S1: Concentric disc bulge, ligamentum flavum thickening, and facet arthrosis results in severe left and kkjoqzbr-pk-ozsiws right neuralforaminal narrowing. Mild spinal canal narrowing. [...] atL5-S1 where there is severe left and egvycbdo-tj-nzalvv right neural foraminal narrowing. Incidental and chronic findings including osteoporosis and diffuseidiopathic skeletal hyperostosis. THIS IS AN ELECTRONICALLY VERIFIED FINAL REPORT 07/30/2024 5:01 PM - Electronically signed by Benjie Sargent M.D. NS: NS Report ID: [id number] Reading Location: [id number] Leelee RIZVI IMG CT PROCEDURES Final R [...] Benjie Sargent M.D. NS: NS Report ID: [id number] Reading Location: [id number] Procedure Note Benjie Sargent MD - 07/30/2024 [...] Benjie Sargent M.D. NS: NS Report ID: [id number] Reading Location: [place] [address] PROCEDURES Final R esult * Influenza A/B, RSV, and COVID-19 PCR Nasopharyngeal (07/30/2024 3:52 PM CDT) COVID-19 RNA Negative Negative Influenza A RNA Negative Negative [facility] ([place]) Influenza B RNA Negative Negative [facility] ([place]) RSV RNA Negative Negative [facility] ([place]) Comment: Interpretive data: Testing performed by [facility]. This test is performed using the [employer] Xpert Xpress CoV-2/Flu/RSV plus assay. This is a multiplex, real- time reverse transcriptase PCR assay intended for the qualitative detection of nucleic acid from SARS-CoV-2, influenza A, influenza B, and respiratory syncytial virus. This assay has been cleared by the [place] Food and Drug administration. The performance characteristics have been verified by the [facility]. Results must be considered in the clinical context, and a negative result does not rule out infection. Interpretive Data last revised 2023 Nasopharyngeal 07/30/2024 3: 52 PM CDT 07/30/2024 3:56 PM CDT Narrative JULIETA GUERRERO ([place]) - 07/30/2024 4:37 PM CDT Is the Patient experiencing symptoms consistent with COVID?->Yes Leelee RIZVI LAB MICROBIOLOGY - GENERA L ORDERABLES Final Result JULIETA GUERRERO ([place]) 1 [facility] Department [place] [address] * (ABNORMAL) Urinalysis reflex to microscopic and [...] for uric acid stone formation. Source: [facility] Current Interpretive Data was last revised on 2017 Protein, ur ql Negative Negative [facility] ([place]) Glucose, ur ql 4+(A) Negative [facility] [...] - GENERAL ORD ERABLES Final Result JULIETA [facility] ([place]) 1 [facility] Department [place] [address] * (ABNORMAL) Sepsis Lactate w/ Reflex (07/30/2024 1:57 PM CDT) Sepsis Lactate 3.3(H) 0.7 - 2.0 mmol/L Blood 07/30/2024 1:57 PM CDT 07/30/2024 2:01 PM CDT us Funmilayo RIZVI LAB BLOOD ORDERABLES Final Resu lt Performing Organization Address City/[facility]/ZIP Co de Phone Number JULIETA GUERRERO ([place]) 1 [facility] [place] [address] * (ABNORMAL) eGFR (07/30/2024 1:57 PM CDT) [...] BLOOD ORDERABLES Final Res ult JULIETA GUERRERO ([place]) 1 [facility] [place] [address] * (ABNORMAL) Differential, auto (07/30/2024 1:57 PM [...] Res ult [facility] ([place]) 1 [facility] Department [place] [address] * (ABNORMAL) CBC with auto differential (07/30/2024 1:57 PM CDT) Pathologist [facility] WBC 10.4(H) 3.8 - 9.9 K/cumm Hgb [...] Res ult [facility] ([place]) 1 [facility] Department [place] [address] * (ABNORMAL) Comprehensive metabolic panel (07/30/2024 1:57 [...] Res ult [facility] ([place]) 1 [facility] Department [place] [address] * (ABNORMAL) Troponin T high-sensitivity series (baseline, [...] BLOOD ORDERABLES Holly l Result JULIETA GUERRERO ([place]) 1 [facility] Department [place] [address] * XR Chest 1 Vw Portable (07/30/2024 [...] Jim Garcia M.D. AM: AM Report ID: [id number] Reading Location: [id number] Procedure Note Jim Garcia MD - 07/30/2024 [...] Jim Garcia M.D. AM: AM Report ID: [id number] Reading Location: [place] [address] Funmilayo RIZVI IMG XR PROCEDURES Final Result * (ABNORMAL) Hemoglobin A1c (08/30/2023 2:23 AM CDT) Hgb A1C 6.3(H) 4.0 - 5.6 % Estimated Average Glucose 134 mg/dL JULIETA GUERRERO ([place]) Comment: The ADA recommends reporting an estimated Average Glucose (eAG) with all Hemoglobin A1c results using the equation derived from a study of 507 normal and diabetic adults. Minority populations were underrepresented and children were not included. (Diabetes Care 31:4668-6360, 2008). The eAG is not equivalent to a fasting glucose. Blood 08/30/2023 2:23 AM CDT 08/30/2023 12:50 PM CDT Destiny Devi NP LAB BLOOD ORDERABLES Final R esult JULIETA GUERRERO ([place]) 1 [facility] Department [place] [address] * (ABNORMAL) Lipid panel (08/28/2023 8:27 PM [...] Re sult JULIETA GUERRERO ([place]) 1 [facility] Department [place] [address] * PSA screen (10/28/2021 2:47 PM CDT) [...] last revised 21. Testing performed by: [facility], [address] [place] [address]., [id number] Blood 10/28/2021 2:47 PM CDT 10/28/2021 7:50 PM CDT Sohail Gould MD LAB BLOOD ORDERABLES Holly l Result [facility] ([place]) 1 [facility] [place] [address] * (ABNORMAL) Albumin Creatinine Ratio, Urine (10/28/2021 2:47 PM CDT) Albumin Ur 713.6 mg/L [facility] ([place]) Comment: Interpretive Data No reference range established. Current interpretive data was last revised 2018. Testing performed by: [facility], [address] [place] [address]., [address] Creatinine Ur 343.1 mg/dL [facility] ([place]) Comment: Interpretive Data No reference range established. Current interpretive data was last revised 2018. Testing performed by: [facility], [address] [place] [address]., [address] Albumin Creatinine Ratio, Ur 208(H) 1 - 29 mg/g [facility] ([place]) Comment:Testing performed by : [facility], [address] [place] [address]., [id number] Urine 10/28/2021 2:47 PM CDT 10/28/2021 9:10 PM CDT Sohail Gould MD LAB URINE ORDERABLES Holly l Result Performing Organization Address City/[facility]/ZIP Co de Phone Number JULIETA GUERRERO ([place]) 1 [facility] [place] [address] * Stool DNA - Cologuard (11/30/2020) Scribed Stool DNA - Cologuard Negative EXTERNAL LAB Stool us Historical Provider MD LAB BODY FLUIDS AND STOOL S ORDERABLES Final Result EXTERNAL LAB from Last 3 Months or Most Recently Relevant to Health Maintenance Insurance [facility] [employer] [employer] [employer] [employer] [employer] MEDICARE ADVANTAGE Member Subscriber Plan / Payer (Ef fective 2022-Present) Name:Jairo Olguin Relation to Subscriber:Self Name:Jairo Olguin Payer ID:[id number] (NAIC) Type:[facility] Address: [place] [id number] ID[employer] Advance Directives For more information, please contact: [phone] * Full Code (Latest Code Status on [...] 8:46 PM 08/29/2023 4:46 PM Care Teams Can Sorter Relationship Specialty Start Date End Date Melchor Woodard MD PCP - General Family Practice 07/30/22 Nicolas Jung MD Surgeon Orthopedic Surgery 08/05/21 Louie Lomeli MD Consulting Physician Cardiology 12/23/21 Jairo Sparrow MD [address] [place] [address] [place] [address] Consulting Physician Neurology 12/14/22
== END 2024-09-26 11:31 | disposition home or self-care (01) ==
LOC: ANHBWCIMG 11:30
PROVIDERS: PCP Nurse Practitioner Adult Health; Visit Provider Nurse Practitioner Adult Health
DX: D72.829 Elevated white blood cell count, unspecified (principal); R91.8 Other nonspecific abnormal finding of lung field
CPT/HCPCS: 71046

== ENCOUNTER 2024-10-02 10:48 | Outpatient (CLI) | payer MEDICARE, SELFPAY ==
--- NOTE | ~2024-10-02 | MR_ITS ---
MRI of the lumbar spine Clinical History: Back pain Technique: Axial T2-weighted images, and sagittal T1-weighted, T2-weighted, and and T2 fat-sat images were acquired. Findings: No fracture seen. There is 3 mm retrolisthesis of L5 over S1. No suspicious bone marrow sig nal abnormality seen. At L1-L2, there is no disc bulge or herniation. No spinal canal stenosis or neural foraminal narrowin g. At L2-L3, there is no disc bulge or herniation. There is mild facet arthropathy. No central canal manoj nosis or neural foraminal narrowing. At L3-L4, there is no disc bulge or herniation. There is moderate facet arthropathy. No central canal stenosis. No definite neural foraminal narrowing. At L4-L5, there is diffuse disc bulge with advanced facet arthropathy. There is severe spinal canal s tenosis/thecal sac compression. There is preservation neural foramina. At L5-S1, there is moderate degenerative distended. There is diffuse disc bulge and advanced facet ar thropathy. There is severe spinal canal stenosis/thecal sac compression. There is severe bilateral ne ural foraminal narrowing. Paravertebral soft tissues are unremarkable. Impression: Degenerative spondylosis at L4-L5 and L5-S1, as detailed above. 3 mm retrolisthesis of L5 over S1. Reviewed, dictated and finalized at [facility]. Impression: Degenerative spondylosis at L4-L5 and L5-S1, as detailed above. 3 mm retrolisthesis of L5 over S1.
== END 2024-10-02 10:49 | disposition home or self-care (01) ==
LOC: MICIMG 10:50
PROVIDERS: PCP Orthopaedic Surgery; Visit Provider Orthopaedic Surgery
DX: M47.897 Other spondylosis, lumbosacral region (principal); M47.896 Other spondylosis, lumbar region
CPT/HCPCS: 72148

== ENCOUNTER 2024-10-28 20:02 | Observation (INO) | payer MEDICARE, SELFPAY ==
[2024-10-28] VITALS (7 sets, daily range): BP systolic 144–176; BP diastolic 71–91; PULSE 61–70; RESP 12–21; TEMP 36.7; O2SAT 94–98
--- NOTE | ~2024-10-28 | XR_ITS ---
EXAMINATION: XR chest 1V Exam Date/Time: 10/28/2024 20:35 CDT HISTORY: syncope Comparison: 09/26/2024, 07/19/2024. RESULT: Lines, tubes, and devices: None. Lungs and pleura: Leftward rotation. Streaky bibasilar scar/atelectasis. Persistent, approximately 1 cm nodular opacity in the left lateral costal phrenic sulcus. Mild left costophrenic angle blunting, likely secondary to rotation. Cardiomediastinal silhouette: Stable. Other: No acute osseous or upper abdominal finding. IMPRESSION: No acute cardiopulmonary process. Persistent somewhat nodular opacity in the left lateral costophrenic angle, may represent scar versus pulmonary nodule. Recommend nonemergent but timely low-dose noncontrast CT of the chest for further evaluation. Reviewed, dictated and finalized at [facility]. IMPRESSION: No acute cardiopulmonary process. Persistent somewhat nodular opacity in the left lateral costophrenic angle, may represent scar versus pulmonary nodule. Recommend nonemergent but timely low-d ose noncontrast CT of the chest for further evaluation.
--- NOTE | ~2024-10-28 | CT_ITS ---
CT ANGIOGRAM NECK AND HEAD History: Dizziness. Technique: Serial spiral axial images through the head and neck were obtained during arterial phase I V injection of 100 cc of Omnipaque 350. 3-D postprocessing and MIP images were then reconstructed on the remote workstation. Dose reduction technique was used on this scan by utilizing automated exposur e control and iterative reconstruction technique. The dose-length product (DLP) was 1155.42 mGy-cm. CTA neck findings: Right vertebral artery is widely patent throughout its course. Left vertebral art shayna is markedly hypoplastic with occlusion at the level of the C2 vertebral body. Bilateral common ca rotid, internal carotid, external carotid arteries are patent. There is calcified/soft plaque at the origin of the right internal carotid artery with focal high-grade stenosis of approximately 70%. Ther e is calcified plaque at the proximal left internal carotid artery with tortuosity, with low-grade st enosis of approximately 30%. The proximal right internal carotid artery demonstrates 70% stenosis rel ative to the normal distal artery lumen diameter. The proximal left internal carotid artery demonstra prakash 30% stenosis relative to the normal distal artery lumen diameter. CTA head findings: Basilar artery and posterior cerebral arteries are patent. Distal internal carotid arteries, middle cerebral arteries, and anterior cerebral arteries are patent. There is extensive at herosclerotic of the cavernous portions of the distal internal carotid arteries, with areas of high-g rade stenosis bilaterally in these regions. No other large vessel occlusion or stenosis seen. No aneu rysm. Impression: 70% stenosis at the portion of the right internal carotid artery. 30% stenosis of the proximal left internal carotid artery. 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 Atherosclerotic calcifications with high-grade stenoses in the bilateral cavernous portions of the di stal internal carotid arteries. Reviewed, dictated and finalized at location . Impression: 70% stenosis at the portion of the right internal carotid artery. 30% stenosis of the proximal left internal carotid artery. Hypoplastic left vertebral artery with occlusion at the level of the C2 vertebr al body. Atherosclerotic calcifications with high-grade stenoses in the bilateral cavern ous portions of the distal internal carotid arteries.
--- NOTE | ~2024-10-28 | CT_ITS ---
EXAMINATION: CT brain wo con DATE: 10/28/2024 20:39 INDICATION: dizziness, fall out of bed . TECHNIQUE: Computed tomography (CT) of the head was performed without intravenous contrast. The mA wa s adjusted according to patient size. Iterative reconstruction technique was employed. The dose-lengt h product was 681.00 mGy-cm. COMPARISON: None. FINDINGS: No acute intracranial hemorrhage or extra-axial fluid collection. No hydrocephalus, mass, or herniation. No acute ischemic infarct. Unremarkable dural venous sinus attenuation. No acute osseous abnormality. Minimal right mastoid fluid, the remaining aerated spaces are clear. Mild atrophy and chronic white matter change. Atherosclerotic intracranial calcification. Bilateral l ens replacements. IMPRESSION: No acute intracranial process. Reviewed, dictated and finalized at location K.
--- NOTE | ~2024-10-28 | MR_ITS ---
EXAMINATION: MR brain/brain stem wo/w con DATE: 10/29/2024 13:12 INDICATION: Intractable vertigo TECHNIQUE: Magnetic resonance imaging (MRI) of the brain and brainstem was performed without and with 20 mL Multihance intravenous contrast. Sequences included sagittal and axial T1-weighted SE, axial d iffusion-weighted FS SE, axial 3D SWAN, axial T2-weighted FLAIR, and axial T2-weighted FSE. Postcontr ast axial and coronal T1-weighted SE was obtained. Apparent diffusion coefficient (ADC) maps were cre ated. COMPARISON: Head CT and CT angiogram dated 10/28/2024 FINDINGS: There are no areas of restricted diffusion to suggest acute infarction. No intracranial hemorrhage or abnormal intracranial mass lesion. There are scattered areas of nonspecific increased T2-weighted si gnal intensity in the cerebral white matter, predominantly involving the deep and periventricular whi te matter. There are no intraparenchymal signal abnormalities seen on the other pulse sequences. The ventricles are symmetric and normal in size. There are no abnormal extra-axial fluid collections. Derik w voids are seen in the cerebral arteries on the T2-weighted sequences consistent with their expected patency. Changes of right intraocular lens replacement. Visualized orbits and soft tissues are unrem arkable. Bilateral mastoid effusions, small on the left and moderate-sized on the right. There are no areas of abnormal enhancement on the post contrast images. IMPRESSION: 1. Normal aging brain. No acute intracranial process or abnormally enhancing brain lesions. 2. Small left and moderate-sized right mastoid effusions. Reviewed, dictated and finalized at location B. IMPRESSION: 1. Normal aging brain. No acute intracranial process or abnormally enhancing br ain lesions. 2. Small left and moderate-sized right mastoid effusions.
--- NOTE | 2024-10-28 20:07 | ECG_ITS ---
Test Date: 2024-10-28 23:03:34 Measurements Intervals [place] Rate: 63 P: 0 AK: 0 QRS: -26 QRSD: 88 T: 71 QT: 446 QTc: 457 Interpretive Statements SINUS RHYTHM LEFT VENTRICULAR HYPERTROPHY AND ST-T CHANGE BASELINE ARTIFACT- I, III, AVR, AVL, AVF, V1-V6 BORDERLINE ECG No previous ECG available for comparison Electronically Signed On 10-29-2024 06:25:39 CDT by Lázaro Pederson D.O.
[2024-10-28 20:19] LABS: Hematocrit 50.0 % (42.0-52.0); Hemoglobin 16.1 g/dL (14.0-18.0); Immature Granulocyte Percent A 1.9 % (0-0.5); Lymphocytes Absolute Auto 1.54 K/mm3 (0.9-3.2); Mean Corpuscular HGB Conc 32.2 g/dl (32-36); Mean Corpuscular Hemoglobin 29.7 pg (26-34); Mean Corpuscular Volume 92.1 fl (80-100); Nucleated Red Blood Cells Absolute Auto 0.000 K/mm3 (0.0-0.012); Nucleated Red Blood Cells Perc 0.0 % (0.0-0.2); Platelet Count Result 174 k/mm3 (150-375); Red Blood Count 5.43 M/mm3 (4.6-6.20); White Blood Count 12.2 K/mm3 (4.5-10.0)
--- NOTE | 2024-10-28 20:34 | ED_ITS ---
HPI - Dizziness General Chief Complaint: Syncope <HANNAH Griffith Last Filed: 10/29/24 01:00> Stated Complaint: palpations <HANNAH Griffith Last Filed: 10/29/24 01:00> Time Seen by Provider: 10/28/24 20:05 <HANNAH Griffith Last Filed: 10/29/24 01:00> Source: patient <HANNAH Griffith Last Filed: 10/29/24 01:00> Mode of arrival: EMS <HANNAH Griffith Last Filed: 10/29/24 01:00> Limitations: no limitations <HANNAH Griffith Last Filed: 10/29/24 01:00> History of Present Illness HPI Narrative: Patient is a 74 y/o male who presents to the ED via EMS with report of dizziness/fall out of bed. Patient reports he took a nap and when he woke up was feeling very weak, lightheaded, dizzy. He states he fell out of bed and was unable to get up of the ground due to feeling very well. Denies focal weakness or numbness. He did not hit his head when he fell. Denied LOC. States he remembers the entire episode. Denies syncope. EMS had to be called. He does admit to feeling somewhat weak and dizzy currently. He reports chronic history of vertigo for the past 2 years. Is prescribed meclizine at home. Does admit to feeling somewhat short of breath. Denies chest pain. Denies vision changes. <HANNAH Griffith Last Filed: 10/29/24 01:00> Related Data Home Medications: Home Medications ?Medication ?Instructions ?Recorded ?Confirmed ?Last Taken ?Type aspirin 81 mg chewable tablet 81 mg PO DAILY 07/28/22 09/25/24 Unknown History (Leroy Chewable Low Dose Aspirin) clopidogrel 75 mg tablet (Plavix) 75 mg PO DAILY 11/23/23 09/25/24 Unknown History ezetimibe 10 mg tablet (Zetia) 10 mg PO DAILY 11/23/23 09/25/24 Unknown History isosorbide mononitrate 30 mg 30 mg PO DAILY 11/23/23 09/25/24 Unknown History tablet,extended release 24 hr <Xi Hong PA-C - Last Filed: 10/29/24 01:00> Allergies/Adverse Reactions: Allergies Allergy/AdvReac Type Severity Reaction Status Date / Time ceftriaxone (From Rocephin) Allergy Unknown Nausea Verified 09/06/24 10:52 [id number] Reductase Allergy Unknown Unknown Verified 09/06/24 10:52 Inhibitor <Xi Hong PA-C - Last Filed: 10/29/24 01:00> Review of Systems 2 Review of Systems: All systems reviewed & are unremarkable except as noted in HPI. <Xi Hong PA-C - Last Filed: 10/29/24 01:00> All systems reviewed & are unremarkable except as noted in HPI and below < Xi Hong PA-C - Last Filed: 10/29/24 01:00> [facility] Past Medical History Medical History: Medical History (Updated 10/29/24 @ 01:00 by Xi Hong PA-C) Benign prostate hyperplasia Stage 3b chronic kidney disease Hypothyroidism Peripheral vascular disease Lumbar radiculopathy Peripheral neuropathy Hypertension Sleep apnea Type 2 diabetes mellitus <Xi Hong PA-C - Last Filed: 10/29/24 01:00> Surgical History Surgical History: Surgical History (Updated 10/29/24 @ 00:38 by Santa Sanchez PA-C) History of tonsillectomy History of knee surgery History of coronary artery stent placement <Xi Hong PA-C - Last Filed: 10/29/24 01:00> Family History Family History: Family History Father , natural causes. Heart disease Hypertension Mother No problems noted. Sibling Acute myocardial infarction <Xi Hong PA-C - Last Filed: 10/29/24 01:00> Social History Social History: Social History (Updated 10/29/24 @ 00:39 by Santa Sanchez PA-C) Social History: Surrogate medical decision maker: Kandice Arceo, daughter ([phone]). Code status: Full code. 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 <Xi Hong PA-C - Last Filed: 10/29/24 01:00> Exam 2 Narrative: GENERAL: Elderly, obese, non-toxic, in no acute distress. HEAD: Normocephalic, atraumatic. EYES: PERRL/EOMI, conjunctivae clear bilaterally. No nystagmus. ENT: TMS clear beryl. Small amount of cerumen in L EAC but still able to visualize NECK: Supple. No meningeal signs. RESPIRATORY: Airway patent, respirations nonlabored. Clear to auscultation bilaterally, no rales, rhonchi, wheezing. No appreciable focal lung sounds. CARDIOVASCULAR: Regular rate and rhythm without murmurs, rubs, or gallops. Peripheral pulses 2+ and equal bilaterally. MUSCULOSKELETAL: Moves all extremities. No gross deformities. SKIN: Warm, dry, normal color. No rashes. NEURO: A&O X3. Speech clear. Follows commands. CN II-XII grossly intact. Sensation grossly intact. No ataxic movements. Strength 5/5 in upper and lower extremities bilaterally. No pronator drift. Equal bow rehairer strength bilaterally. PSYCHIATRIC: Appropriate mood and affect. Normal interaction. <Xi Hong PA-C - Last Filed: 10/29/24 01:00> Course SOCIAL SERVICE TECHNICIAN/PA Physician Supervision I did overhear PA re-evaluating the patient multiple times. Poor historian making it difficult to understand the nature of his underlying symptoms and the acuity of changes. Remains dizzy by report. PA discussed with neurology and I did hear them given report to hospitalist STACIE. Patient otherwise remained hemodynamically stable. I was available for consultation but did not personally examine this patient while in the ED. <Chikis Chambers MD - Last Filed: 10/29/24 01:56> Vital Signs Vital signs: Vital Signs Temperature 98.0 F 10/28/24 20:13 Pulse Rate 68 10/28/24 20:13 Respiratory Rate 21 H 10/28/24 20:13 Blood Pressure 152/91 H 10/28/24 20:13 Pulse Oximetry 98 10/28/24 20:13 Oxygen Delivery Room Air 10/28/24 20:13 Temperature 98.0 F 10/28/24 20:13 Pulse Rate 62 10/29/24 01:40 Respiratory Rate 16 10/29/24 01:40 Blood Pressure 176/80 H 10/29/24 01:40 Pulse Oximetry 95 10/29/24 01:40 Oxygen Delivery Room Air 10/28/24 20:13 <Xi Hong PA-C - Last Filed: 10/29/24 01:00> Vital Signs Temperature 98.0 F 10/28/24 20:13 Pulse Rate 68 10/28/24 20:13 Respiratory Rate 21 H 10/28/24 20:13 Blood Pressure 152/91 H 10/28/24 20:13 Pulse Oximetry 98 10/28/24 20:13 Oxygen Delivery Room Air 10/28/24 20:13 Temperature 98.0 F 10/28/24 20:13 Pulse Rate 62 10/29/24 01:40 Respiratory Rate 16 10/29/24 01:40 Blood Pressure 176/80 H 10/29/24 01:40 Pulse Oximetry 95 10/29/24 01:40 Oxygen Delivery Room Air 10/28/24 20:13 <Chikis Chambers MD - Last Filed: 10/29/24 01:56> MDM - Dizziness MDM Narrative Medical decision making narrative: Patient presented to ED with dizziness, generalized weakness, fall out of bed. Denies head injury, LOC, syncope. Vital signs are stable upon arrival. Patient is in no acute distress. Neurologically intact. No appreciable focal deficits. EKG with sinus rhythm, some nonspecific ST changes. No acute STEMI. Denying chest pain. Laboratory studies with minimal leukocytosis of 12.2, though this appears fairly chronic for patient. CMP with potassium of 3.3. Replaced orally. Mag WNL. Creatinine consistent with previous records. Blood glucose 242. No evidence of DKA. Viral swabs negative. BNP 702, however patient does not appear acutely fluid overloaded. Troponin 0.024. Will continue to trend. D-dimer within normal range. UA without signs of infection. Chest x-ray nodular opacity in left lower lung, scarring versus nodule. Recommend outpatient imaging. CT brain was obtained and without acute findings. 3 hour troponin flat, still WNL On re-evaluation, patient reports he is feeling persistently dizzy. He reports chronic history of vertigo the past 2 years, and states it has been worsening over the past 3-4 months. He denies worsening of his dizziness today, but states currently he cannot even stand up because he feels so dizzy. He is afraid he will fall again when he home. Will attempt small dose of Valium. Will obtain CTA brain and carotids. CTA without evidence of large vessel occlusion or aneurysm. Does show severe right and mild left ICA stenosis. Will discuss with neurology. Discussed with Dr. Baker, recommended admission for MRI, he will consult. Discussed case with Santa RIZVI hospitalist, accepted patient for admission. Patient in agreement with plan. <Xi Hong PA-C - Last Filed: 10/29/24 01:00> Medical Records Attestation: I reviewed the patient's medical records. <Xi Hong PA-C - Last Filed: 10/29/24 01:00> Lab Data Attestation: I reviewed the patient's lab results. <Xi Hong PA-C - Last Filed: 10/29/24 01:00> Result diagrams: 10/28/24 20:12 10/28/24 20:12 <Xi Hong PA-C - Last Filed: 10/29/24 01:00> Labs: Lab Results 10/28/24 10/28/24 10/28/24 Range/Units 20:11 20:12 20:32 WBC 12.2 H (4.5-10.0) K/mm3 RBC 5.43 (4.6-6.20) M/mm3 Hgb 16.1 (14.0-18.0) g/dL Hct 50.0 (42.0-52.0) % MCV 92.1 (80-100) fl MCH 29.7 (26-34) pg MCHC 32.2 (32-36) g/dl RDW 14.2 (11.5-14.5) % Plt Count 174 (150-375) k/mm3 MPV 9.7 (7.4-10.4) fl Immature Gran % (Auto) 1.9 H (0-0.5) % Neut % (Auto) 77.0 H (45.5-73.1) % Lymph % (Auto) 12.7 L (18.3-44.2) % [place] % (Auto) 7.8 (2.6-8.5) % Eos % (Auto) 0.2 (0-4.4) % Baso % (Auto) 0.4 (0.2-1.2) % Lymph # (Auto) 1.54 (0.9-3.2) K/mm3 [place] # (Auto) 1.0 H (0.1-0.6) K/mm3 Eos # (Auto) 0.0 (0-0.3) K/mm3 Baso # (Auto) 0.1 (0.0-0.1) K/mm3 Abs Immat Gran (auto) 0.23 H (0.00-0.031) K/mm3 Absolute Neuts (auto) 9.4 H (1.3-6.7) K/mm3 Absolute Nucleated RBC 0.000 (0.0-0.012) K/mm3 Nucleated RBC % 0.0 (0.0-0.2) % PT 13.2 (11.1-14.7) Seconds INR 1.0 APTT 29.7 (22.3-36.8) Seconds D-Dimer 0.30 (<0.48) ug/mL Sodium 141 (137-145) mmol/L Potassium 3.3 L (3.4-5.0) mmol/L Chloride 103 (98-107) mmol/L Carbon Dioxide 29 (22-30) mmol/L Anion Gap 9 (4-12) mmol/L BUN 26 H D (9-20) mg/dL Creatinine 1.59 H (0.7-1.3) mg/dL Estim Creat Clear Calc Not Reportable Estimated GFR 43 L (59 - ) Glucose 242 H (65-110) mg/dL Calcium 9.4 (8.4-10.2) mg/dL Magnesium 2.2 (1.6-2.3) mg/dL Total Bilirubin 0.3 (0.2-1.3) mg/dL AST 26 (17-59) U/L ALT 24 (6-50) U/L Alkaline Phosphatase 95 (38-126) U/L Troponin I 0.024 (0.000-0.034) ng/mL NT-Pro-B Natriuret Pep 702 H (19.9-100) pg/mL Total Protein 6.8 (6.3-8.2) g/dL Albumin 3.9 (3.5-5.1) g/dL Urine Color (Yellow) Urine Appearance (Clear) Urine pH (5.0-9.0) Ur Specific [place] (1.001-1.035) Urine Protein (Negative) mg/dL Urine Glucose (UA) (Negative) mg/dL Urine Ketones (Negative) mg/dL Ur Blood (Man) (Negative) Urine Nitrate (Negative) Urine Bilirubin (Negative) Urine Urobilinogen (<2.0) mg/dL Leukocyte Esterase Rfl (Negative) KYLE/UL Urine RBC (0-2) /hpf Urine WBC (0-3) /hpf Ur Squamous Epith Cells (Few) /hpf Urine Bacteria /hpf Urine Casts Influenza A (RT-PCR) Negative (Negative) Influenza B (RT-PCR) Negative (Negative) RSV (RT-PCR) Negative (Negative) SARS-CoV-2 RNA (RT-PCR) Negative (Negative) 10/28/24 10/28/24 Range/Units 21:17 22:58 WBC (4.5-10.0) K/mm3 RBC (4.6-6.20) M/mm3 Hgb (14.0-18.0) g/dL Hct (42.0-52.0) % MCV (80-100) fl MCH (26-34) pg MCHC (32-36) g/dl RDW (11.5-14.5) % Plt Count (150-375) k/mm3 MPV (7.4-10.4) fl Immature Gran % (Auto) (0-0.5) % Neut % (Auto) (45.5-73.1) % Lymph % (Auto) (18.3-44.2) % [place] % (Auto) (2.6-8.5) % Eos % (Auto) (0-4.4) % Baso % (Auto) (0.2-1.2) % Lymph # (Auto) (0.9-3.2) K/mm3 [place] # (Auto) (0.1-0.6) K/mm3 Eos # (Auto) (0-0.3) K/mm3 Baso # (Auto) (0.0-0.1) K/mm3 Abs Immat Gran (auto) (0.00-0.031) K/mm3 Absolute Neuts (auto) (1.3-6.7) K/mm3 Absolute Nucleated RBC (0.0-0.012) K/mm3 Nucleated RBC % (0.0-0.2) % PT (11.1-14.7) Seconds INR APTT (22.3-36.8) Seconds D-Dimer (<0.48) ug/mL Sodium (137-145) mmol/L Potassium (3.4-5.0) mmol/L Chloride (98-107) mmol/L Carbon Dioxide (22-30) mmol/L Anion Gap (4-12) mmol/L BUN (9-20) mg/dL Creatinine (0.7-1.3) mg/dL Estim Creat Clear Calc Estimated GFR (59 - ) Glucose (65-110) mg/dL Calcium (8.4-10.2) mg/dL Magnesium (1.6-2.3) mg/dL Total Bilirubin (0.2-1.3) mg/dL AST (17-59) U/L ALT (6-50) U/L Alkaline Phosphatase (38-126) U/L Troponin I 0.026 (0.000-0.034) ng/mL NT-Pro-B Natriuret Pep (19.9-100) pg/mL Total Protein (6.3-8.2) g/dL Albumin (3.5-5.1) g/dL Urine Color Yellow (Yellow) Urine Appearance Clear (Clear) Urine pH 5.5 (5.0-9.0) Ur Specific [place] 1.030 (1.001-1.035) Urine Protein Trace (Negative) mg/dL Urine Glucose (UA) 3+ H (Negative) mg/dL Urine Ketones Negative (Negative) mg/dL Ur Blood (Man) Negative (Negative) Urine Nitrate Negative (Negative) Urine Bilirubin Negative (Negative) Urine Urobilinogen 0.2 (<2.0) mg/dL Leukocyte Esterase Rfl Negative (Negative) KYLE/UL Urine RBC 0-2 (0-2) /hpf Urine WBC 0-5 (0-3) /hpf Ur Squamous Epith Cells None seen (Few) /hpf Urine Bacteria None seen /hpf Urine Casts 0-2 Influenza A (RT-PCR) (Negative) Influenza B (RT-PCR) (Negative) RSV (RT-PCR) (Negative) SARS-CoV-2 RNA (RT-PCR) (Negative) <Xi Hong PA-C - Last Filed: 10/29/24 01:00> Lab Results 10/28/24 10/28/24 10/28/24 Range/Units 20:11 20:12 20:32 WBC 12.2 H (4.5-10.0) K/mm3 RBC 5.43 (4.6-6.20) M/mm3 Hgb 16.1 (14.0-18.0) g/dL Hct 50.0 (42.0-52.0) % MCV 92.1 (80-100) fl MCH 29.7 (26-34) pg MCHC 32.2 (32-36) g/dl RDW 14.2 (11.5-14.5) % Plt Count 174 (150-375) k/mm3 MPV 9.7 (7.4-10.4) fl Immature Gran % (Auto) 1.9 H (0-0.5) % Neut % (Auto) 77.0 H (45.5-73.1) % Lymph % (Auto) 12.7 L (18.3-44.2) % [place] % (Auto) 7.8 (2.6-8.5) % Eos % (Auto) 0.2 (0-4.4) % Baso % (Auto) 0.4 (0.2-1.2) % Lymph # (Auto) 1.54 (0.9-3.2) K/mm3 [place] # (Auto) 1.0 H (0.1-0.6) K/mm3 Eos # (Auto) 0.0 (0-0.3) K/mm3 Baso # (Auto) 0.1 (0.0-0.1) K/mm3 Abs Immat Gran (auto) 0.23 H (0.00-0.031) K/mm3 Absolute Neuts (auto) 9.4 H (1.3-6.7) K/mm3 Absolute Nucleated RBC 0.000 (0.0-0.012) K/mm3 Nucleated RBC % 0.0 (0.0-0.2) % PT 13.2 (11.1-14.7) Seconds INR 1.0 APTT 29.7 (22.3-36.8) Seconds D-Dimer 0.30 (<0.48) ug/mL Sodium 141 (137-145) mmol/L Potassium 3.3 L (3.4-5.0) mmol/L Chloride 103 (98-107) mmol/L Carbon Dioxide 29 (22-30) mmol/L Anion Gap 9 (4-12) mmol/L BUN 26 H D (9-20) mg/dL Creatinine 1.59 H (0.7-1.3) mg/dL Estim Creat Clear Calc Not Reportable Estimated GFR 43 L (59 - ) Glucose 242 H (65-110) mg/dL Calcium 9.4 (8.4-10.2) mg/dL Magnesium 2.2 (1.6-2.3) mg/dL Total Bilirubin 0.3 (0.2-1.3) mg/dL AST 26 (17-59) U/L ALT 24 (6-50) U/L Alkaline Phosphatase 95 (38-126) U/L Troponin I 0.024 (0.000-0.034) ng/mL NT-Pro-B Natriuret Pep 702 H (19.9-100) pg/mL Total Protein 6.8 (6.3-8.2) g/dL Albumin 3.9 (3.5-5.1) g/dL Urine Color (Yellow) Urine Appearance (Clear) Urine pH (5.0-9.0) Ur Specific [place] (1.001-1.035) Urine Protein (Negative) mg/dL Urine Glucose (UA) (Negative) mg/dL Urine Ketones (Negative) mg/dL Ur Blood (Man) (Negative) Urine Nitrate (Negative) Urine Bilirubin (Negative) Urine Urobilinogen (<2.0) mg/dL Leukocyte Esterase Rfl (Negative) KYLE/UL Urine RBC (0-2) /hpf Urine WBC (0-3) /hpf Ur Squamous Epith Cells (Few) /hpf Urine Bacteria /hpf Urine Casts Influenza A (RT-PCR) Negative (Negative) Influenza B (RT-PCR) Negative (Negative) RSV (RT-PCR) Negative (Negative) SARS-CoV-2 RNA (RT-PCR) Negative (Negative) 10/28/24 10/28/24 Range/Units 21:17 22:58 WBC (4.5-10.0) K/mm3 RBC (4.6-6.20) M/mm3 Hgb (14.0-18.0) g/dL Hct (42.0-52.0) % MCV (80-100) fl MCH (26-34) pg MCHC (32-36) g/dl RDW (11.5-14.5) % Plt Count (150-375) k/mm3 MPV (7.4-10.4) fl Immature Gran % (Auto) (0-0.5) % Neut % (Auto) (45.5-73.1) % Lymph % (Auto) (18.3-44.2) % [place] % (Auto) (2.6-8.5) % Eos % (Auto) (0-4.4) % Baso % (Auto) (0.2-1.2) % Lymph # (Auto) (0.9-3.2) K/mm3 [place] # (Auto) (0.1-0.6) K/mm3 Eos # (Auto) (0-0.3) K/mm3 Baso # (Auto) (0.0-0.1) K/mm3 Abs Immat Gran (auto) (0.00-0.031) K/mm3 Absolute Neuts (auto) (1.3-6.7) K/mm3 Absolute Nucleated RBC (0.0-0.012) K/mm3 Nucleated RBC % (0.0-0.2) % PT (11.1-14.7) Seconds INR APTT (22.3-36.8) Seconds D-Dimer (<0.48) ug/mL Sodium (137-145) mmol/L Potassium (3.4-5.0) mmol/L Chloride (98-107) mmol/L Carbon Dioxide (22-30) mmol/L Anion Gap (4-12) mmol/L BUN (9-20) mg/dL Creatinine (0.7-1.3) mg/dL Estim Creat Clear Calc Estimated GFR (59 - ) Glucose (65-110) mg/dL Calcium (8.4-10.2) mg/dL Magnesium (1.6-2.3) mg/dL Total Bilirubin (0.2-1.3) mg/dL AST (17-59) U/L ALT (6-50) U/L Alkaline Phosphatase (38-126) U/L Troponin I 0.026 (0.000-0.034) ng/mL NT-Pro-B Natriuret Pep (19.9-100) pg/mL Total Protein (6.3-8.2) g/dL Albumin (3.5-5.1) g/dL Urine Color Yellow (Yellow) Urine Appearance Clear (Clear) Urine pH 5.5 (5.0-9.0) Ur Specific [place] 1.030 (1.001-1.035) Urine Protein Trace (Negative) mg/dL Urine Glucose (UA) 3+ H (Negative) mg/dL Urine Ketones Negative (Negative) mg/dL Ur Blood (Man) Negative (Negative) Urine Nitrate Negative (Negative) Urine Bilirubin Negative (Negative) Urine Urobilinogen 0.2 (<2.0) mg/dL Leukocyte Esterase Rfl Negative (Negative) KYLE/UL Urine RBC 0-2 (0-2) /hpf Urine WBC 0-5 (0-3) /hpf Ur Squamous Epith Cells None seen (Few) /hpf Urine Bacteria None seen /hpf Urine Casts 0-2 Influenza A (RT-PCR) (Negative) Influenza B (RT-PCR) (Negative) RSV (RT-PCR) (Negative) SARS-CoV-2 RNA (RT-PCR) (Negative) <Chikis Chambers MD - Last Filed: 10/29/24 01:56> Imaging Data Attestation: I personally reviewed and interpreted this imaging study as follows: < Xi Hong PA-C - Last Filed: 10/29/24 01:00> Radiologist's impression: ITS Impressions Head CT 10/28/24 20:40 IMPRESSION: No acute intracranial process. Chest X-Ray 10/28/24 20:44 IMPRESSION: No acute cardiopulmonary process. Persistent somewhat nodular opacity in the left lateral costophrenic angle, may represent scar versus pulmonary nodule. Recommend nonemergent but timely low- dose noncontrast CT of the chest for further evaluation. STAT RAD CTA brain: No acute occlusion or aneurysm. STAT RAD CTA neck: Severe right and mild left ICA stenosis. <Xi Hong PA-C - Last Filed: 10/29/24 01:00> ECG Data EKG #1: Attestation: I personally reviewed and interpreted this ECG as follows: <HANNAH Griffith Last Filed: 10/29/24 01:00> ECG completion date: 10/28/24 <HANNAH Griffith Last Filed: 10/29/24 01:00> ECG completion time: 20:12 <HANNAH Griffith Last Filed: 10/29/24 01:00> EKG Interpretation: normal rate (70), sinus rhythm and non-specific ST changes <HANNAH Griffith Last Filed: 10/29/24 01:00> Discharge Plan Discharge Clinical Impression: Dizziness, Difficulty walking Accidental fall from bed Qualifiers: Encounter type: initial encounter Qualified Code(s): W06.XXXA - Fall from bed, initial encounter Internal carotid artery stenosis Qualifiers: Laterality: bilateral Qualified Code(s): I65.23 - Occlusion and stenosis of bilateral carotid arteries <HANNAH Griffith Last Filed: 10/29/24 01:00> Patient Disposition: Still a Patient <HANNAH Griffith Last Filed: 10/29/24 01:00> Condition: Stable <HANNAH Griffith Last Filed: 10/29/24 01:00> Patient Language: Telugu <HANNAH Griffith Last Filed: 10/29/24 01:00> Prescriptions: No Action isosorbide mononitrate 30 mg tablet extended release 24 hr 30 mg PO DAILY clopidogrel [Plavix] 75 mg tablet 75 mg PO DAILY ezetimibe [Zetia] 10 mg tablet 10 mg PO DAILY aspirin [Leroy Chewable Aspirin] 81 mg tablet,chewable 81 mg PO DAILY hydrocodone-acetaminophen 7.5-325 mg tablet 1 tablet PO Q4H PRN (Reason: pain) Qty: 30 0RF meclizine 12.5 mg tablet 12.5 mg PO DAILY PRN (Reason: dizziness) Qty: 30 0RF Gemtesa 75 mg tablet 75 mg PO DAILY Qty: 30 1RF losartan 25 mg tablet See Rx Instructions .ROUTE .COMPLEX Qty: 90 1RF Dose Instruction: TAKE ONE (1) TABLET BY MOUTH EVERY DAY Rx Instructions: TAKE ONE (1) TABLET BY MOUTH EVERY DAY triamcinolone acetonide 0.025 % cream See Rx Instructions .ROUTE .COMPLEX Qty: 80 1RF Dose Instruction: APPLY TO AFFECTED AREA(S) TWICE a DAY Rx Instructions: APPLY TO AFFECTED AREA(S) TWICE a DAY gabapentin 100 mg capsule See Rx Instructions .ROUTE .COMPLEX Qty: 120 3RF Dose Instruction: TAKE ONE (1) CAPSULE BY MOUTH MORNING AND NOON, TAKE TWO (2) BY MOUTH NIGHTLY AT BEDTIME Rx Instructions: TAKE ONE (1) CAPSULE BY MOUTH MORNING AND NOON, TAKE TWO (2) BY MOUTH NIGHTLY AT BEDTIME hydrochlorothiazide 25 mg tablet See Rx Instructions .ROUTE .COMPLEX Qty: 90 0RF Dose Instruction: TAKE ONE (1) TABLET BY MOUTH EVERY DAY Rx Instructions: TAKE ONE (1) TABLET BY MOUTH EVERY DAY metoprolol succinate 50 mg tablet extended release 24 hr See Rx Instructions .ROUTE .COMPLEX Qty: 90 1RF Dose Instruction: TAKE ONE (1) TABLET BY MOUTH DAILY Rx Instructions: TAKE ONE (1) TABLET BY MOUTH DAILY levothyroxine 50 mcg tablet See Rx Instructions .ROUTE .COMPLEX Qty: 90 1RF Dose Instruction: TAKE ONE (1) TABLET BY MOUTH DAILY Rx Instructions: TAKE ONE (1) TABLET BY MOUTH DAILY Jardiance 25 mg tablet See Rx Instructions .ROUTE .COMPLEX Qty: 90 1RF Dose Instruction: TAKE ONE (1) TABLET BY MOUTH DAILY Rx Instructions: TAKE ONE (1) TABLET BY MOUTH DAILY <Xi Hong PA-C - Last Filed: 10/29/24 01:00> Follow-up/Referrals: Chad Tong MD [Primary Care Provider] - <Xi Hong PA-C - Last Filed: 10/29/24 01:00>
[2024-10-28 20:36] LABS: INR 1.0; Prothrombin Time 13.2 Seconds (11.1-14.7)
[2024-10-28 20:37] LABS: Partial Thromboplastin Time 29.7 Seconds (22.3-36.8)
[2024-10-28 20:45] LABS: Alanine Aminotransferase 24 U/L (6-50); Albumin Level 3.9 g/dL (3.5-5.1); Alkaline Phosphatase 95 U/L (38-126); Anion Gap 9 mmol/L (4-12); Aspartate Amino Transferase 26 U/L (17-59); Bilirubin,Total 0.3 mg/dL (0.2-1.3); Blood Urea Nitrogen 26 mg/dL (9-20); Calcium 9.4 mg/dL (8.4-10.2); Carbon Dioxide 29 mmol/L (22-30); Chloride 103 mmol/L (98-107); Estimated Glomerular Filt Rate 43; Glucose 242 mg/dL (65-110); Magnesium 2.2 mg/dL (1.6-2.3); Potassium 3.3 mmol/L (3.4-5.0); Sodium 141 mmol/L (137-145); Total Protein 6.8 g/dL (6.3-8.2)
[2024-10-28] MEDS: SODIUM CHLORIDE 0.9% IV 500 ML 999 ML IV CONT (20:48)
[2024-10-28 20:56] LABS: Troponin I 0.024 ng/mL (0.000-0.034)
[2024-10-28] MEDS: MECLIZINE HCL 25 MG TABLET PO (20:59)
[2024-10-28 21:09] LABS: NT Pro B Type Natriuretic Pept 702 pg/mL (19.9-100)
[2024-10-28 21:14] LABS: Influenza A QL RT-PCR Negative (Negative); Influenza B QL RT-PCR Negative (Negative); RSV RNA, RT-PCR. Negative (Negative); SARS-CoV-2 RNA PCR Negative (Negative)
[2024-10-28 21:25] LABS: Add Urine Microscopic? YES; Appearance Urine Clear (Clear); Glucose Urine UA 3+ mg/dL (Negative); Leukocyte Esterase Ur Negative LEU/UL (Negative); Nitrate Urine Negative (Negative); Non Pathogenic Casts 0-2; Specific Grav Ur 1.030 (1.001-1.035)
[2024-10-28] MEDS: POTASSIUM CHLORIDE 20 MEQ ER TABLET PO (21:44)
--- NOTE | 2024-10-28 22:54 | ECG_ITS ---
Test Date: 2024-10-28 20:12:24 Measurements Intervals [place] Rate: 70 P: 33 MI: 175 QRS: -36 QRSD: 95 T: 71 QT: 413 QTc: 447 Interpretive Statements SINUS RHYTHM LEFT AXIS DEVIATION LEFT VENTRICULAR HYPERTROPHY AND ST-T CHANGE BASELINE ARTIFACT- I, II, V4-V5 BORDERLINE ECG No previous ECG available for comparison Electronically Signed On 10-29-2024 09:23:49 CDT by Lázaro Pederson D.O.
[2024-10-28 23:35] LABS: Troponin I 0.026 ng/mL (0.000-0.034)
[2024-10-28] MEDS: diazePAM INJ (*CRX) 10 MG/2 ML SYRINGE 2 MG IV PUSH (23:49)
[2024-10-29] VITALS (17 sets, daily range): BP systolic 122–177; BP diastolic 55–98; PULSE 50–73; RESP 15–22; TEMP 36.3–36.7; O2SAT 93–97; BMI 35.7
--- NOTE | 2024-10-29 00:30 | P.HP_ITS ---
H&P: HPI History of Present Illness Date/Time: 10/29/24 00:30 Chief Complaint: Weakness and dizziness. Narrative: This is a 74-year-old male with reported history of stroke, peripheral neuropathy, vertigo, coronary artery disease, hypertension, dyslipidemia, type 2 diabetes mellitus, hypothyroidism, chronic kidney disease, benign prostatic hyperplasia, and overactive bladder via EMS from home with complaints of weakness and dizziness. He attended a family reunion yesterday and he lay down to take a nap in mid afternoon. He awoke at about 15:00 and attempted to get out of bed but he reports feeling dizzy and weak which caused him to roll onto the floor. He lay there for several hours as he felt too weak to get himself off of the ground. At some point in time 1 of his sisters found him and called EMS. The patient reports a longstanding history vertigo for which he is prescribed meclizine without benefit. He believes that he has had a complete workup for the vertigo and tells me that was unrevealing. His vertigo is worse with turning his head from side to side and looking upwards. He also reports significant neuropathy in his feet which can cause him to have balance issues as well. He ambulates with a cane and/or a walker and he has a history of falls, reporting 5 falls within the last couple of weeks which is not unusual for him. Luckily he has not sustained any injuries. He denies head trauma and loss of consciousness in the fall today. There were no antecedent symptoms. He also denies syncope, near syncope, acute visual changes, significant tinnitus, aural fullness, facial droop, headache, neck ache, difficulty speaking and swallowing, focal weakness, chest pain, palpitations, sensations of racing heart, nausea, vomiting, diarrhea, and dysuria. In the ED: Blood pressure was 152/91 on arrival. The remainder of his vital signs were stable. Labs are significant for WBC count of 12.2, potassium 3.3, BUN 26, creatinine 1.59, glucose 242, troponin 0.024, proBNP 702. Head CT was without acute findings. Chest x-ray showed a somewhat nodular opacity in the left lateral costophrenic angle which may be scar versus pulmonary nodule. CTA of the brain and carotids showed severe right and mild left internal carotid artery stenosis. He received p.o. meclizine and IV diltiazem without benefit and he is being admitted in this setting for evaluation. Review of Systems Review of Systems: 12 systems were reviewed and are negativ e except for as per HPI. [facility] Past Medical History Medical History Benign prostate hyperplasia Stage 3b chronic kidney disease Hypothyroidism Peripheral vascular disease Lumbar radiculopathy Peripheral neuropathy Hypertension Sleep apnea Type 2 diabetes mellitus Surgical History Surgical History History of tonsillectomy History of knee surgery History of coronary artery stent placement Family History Family History Father , natural causes. Heart disease Hypertension Mother No problems noted. Sibling Acute myocardial infarction Social History Social History Social History: Surrogate medical decision maker: Kandice Arceo, daughter ([phone]). Code status: Full code. Smoking packs per day: 3 Smoking cigarettes per day: 60.0 Smoking status: Former smoker Tobacco type: cigarettes Second hand tobacco smoke exposure: No Alcohol intake: never Substance use: never Substance use type: does not use Do You Feel Safe in your Home?: Yes Lack of Transportation: No Lack of Food: Never True Current Housing: I Have Housing Concerned About Future Housing: No Difficulty Paying Gas/Electric Bills: No Difficulty Paying for Meds: No Currently Unemployed: No Education: High School Diploma/GED Difficulty w/ Childcare or Family Care: No Living arrangements: with family Occupation/Education: retired 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 Spiritual care concerns: No Meds Home Medications and Allergies Home Medications ?Medication ?Instructions ?Recorded ?Confirmed ?Type aspirin 81 mg chewable tablet 81 mg PO DAILY 07/28/22 09/25/24 History (Leroy Chewable Low Dose Aspirin) clopidogrel 75 mg tablet (Plavix) 75 mg PO DAILY 11/23/23 09/25/24 History ezetimibe 10 mg tablet (Zetia) 10 mg PO DAILY 11/23/23 09/25/24 History isosorbide mononitrate 30 mg 30 mg PO DAILY 11/23/23 09/25/24 History tablet,extended release 24 hr meclizine 12.5 mg tablet 12.5 mg PO DAILY PRN dizziness #30 03/26/24 09/25/24 Rx tabs vibegron 75 mg tablet (Gemtesa) 75 mg PO DAILY #30 tabs 03/27/24 09/25/24 Rx losartan 25 mg tablet See Rx Instructions .Route 05/28/24 09/25/24 Rx .COMPLEX #90 tabs triamcinolone acetonide 0.025 % See Rx Instructions .Route 07/16/24 09/25/24 Rx topical cream .COMPLEX #80 ea gabapentin 100 mg capsule See Rx Instructions .Route 07/30/24 09/25/24 Rx .COMPLEX #120 caps hydrochlorothiazide 25 mg tablet See Rx Instructions .Route 07/30/24 09/25/24 Rx .COMPLEX #90 tabs hydrocodone 7.5 mg-acetaminophen 1 tablet PO Q4H PRN pain #30 tabs 08/03/24 Rx 325 mg tablet empagliflozin 25 mg tablet See Rx Instructions .Route 08/16/24 09/25/24 Rx (Jardiance) .COMPLEX #90 tabs levothyroxine 50 mcg tablet See Rx Instructions .Route 08/16/24 09/25/24 Rx .COMPLEX #90 tabs metoprolol succinate 50 mg See Rx Instructions .Route 08/16/24 09/25/24 Rx tablet,extended release 24 hr .COMPLEX #90 tabs Allergies Allergy/AdvReac Type Severity Reaction Status Date / Time ceftriaxone (From Rocephin) Allergy Unknown Nausea Verified 09/06/24 10:52 [id number]-TXV-CuG Reductase Allergy Unknown Unknown Verified 09/06/24 10:52 Inhibitor Vital Signs Vital Signs - 24 hr 10/28/24 20:13 10/28/24 20:13 10/28/24 20:17 Temperature 98.0 F Pulse Rate 68 69 Respiratory Rate 21 H Blood Pressure 152/91 H 152/91 H 144/75 H Pulse Oximetry 98 Oxygen Delivery Room Air 10/28/24 20:17 10/28/24 20:17 10/28/24 20:19 Temperature Pulse Rate 70 Respiratory Rate 21 H 12 Blood Pressure 150/71 H 144/75 H 150/71 H Pulse Oximetry 98 Oxygen Delivery 10/28/24 21:18 10/28/24 22:30 10/28/24 23:17 Temperature Pulse Rate 61 61 Respiratory Rate 20 18 Blood Pressure 176/78 H 157/78 H Pulse Oximetry 94 95 Oxygen Delivery 10/28/24 23:54 10/29/24 00:02 Temperature Pulse Rate 67 64 Respiratory Rate 17 17 Blood Pressure 170/73 H 155/71 H Pulse Oximetry 95 95 Oxygen Delivery Exam Narrative: General: Well-developed, nontoxic-appearing male sitting up in bed. HEENT: Normocephalic, atraumatic. Left pupil is a bit irregular from prior cataract surgery. Extraocular motions intact. No nystagmus. Tympanic membranes are unremarkable. Small amount of cerumen in the left external auditory canal. Sclera anicteric. Oral mucosa moist. Neck: Supple. Right carotid bruit. Respiratory: Lungs are clear to auscultation bilaterally. Cardiovascular: Regular rate and rhythm with S1-S2. Gastrointestinal: Abdomen is soft, protuberant, nontender, and nondistended with positive bowel sounds. Skin: Warm and dry. Extremities: No cyanosis, clubbing, or significant edema. Radial and pedal pulses intact. Neurological: Alert and oriented. Cranial nerves grossly intact. Speech is clear. No facial asymmetry. No pronator drift. Normal [id number] and rapid alternating movements. 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 Hip flexors 4/5 bilaterally which he states is chronic. Psychiatric: Pleasant and cooperative with appropriate mood and affect. H&P: Results Labs Labs: Short CBC 10/28/24 Range/Units 20:12 WBC 12.2 H (4.5-10.0) K/mm3 Hgb 16.1 (14.0-18.0) g/dL Hct 50.0 (42.0-52.0) % Plt Count 174 (150-375) k/mm3 BMP 10/28/24 20:12 Sodium 141 Potassium 3.3 L Chloride 103 Carbon Dioxide 29 BUN 26 H D Creatinine 1.59 H Glucose 242 H Calcium 9.4 Cardiac Enzymes 10/28/24 10/28/24 Range/Units 20:12 22:58 Troponin I 0.024 0.026 (0.000-0.034) ng/mL Liver Function 10/28/24 Range/Units 20:12 Total Bilirubin 0.3 (0.2-1.3) mg/dL AST 26 (17-59) U/L ALT 24 (6-50) U/L Alkaline Phosphatase 95 (38-126) U/L Albumin 3.9 (3.5-5.1) g/dL Urine 10/28/24 Range/Units 21:17 Urine Color Yellow (Yellow) Urine Appearance Clear (Clear) Urine pH 5.5 (5.0-9.0) Ur Specific [place] 1.030 (1.001-1.035) Urine Protein Trace (Negative) mg/dL Urine Glucose (UA) 3+ H (Negative) mg/dL Imaging Head CT 10/28/24 20:40 IMPRESSION: 1. No acute intracranial process. Chest X-Ray 10/28/24 20:44 IMPRESSION: 1. No acute cardiopulmonary process. 2. Persistent somewhat nodular opacity in the left lateral costophrenic angle, may represent scar versus pulmonary nodule. Recommend nonemergent but timely low-dose noncontrast CT of the chest for further evaluation. Assessment and Plan Assessment and plan (1) Accidental fall from bed: Qualifiers: Encounter type: initial encounter Qualified Code(s): W06.XXXA - Fall from bed, initial encounter Code(s): W06.XXXA - Fall from bed, initial encounter Status: Acute (2) Vertigo: Code(s): R42 - Dizziness and giddiness Status: Acute (3) Internal carotid artery stenosis: Qualifiers: Laterality: bilateral Qualified Code(s): I65.23 - Occlusion and stenosis of bilateral carotid arteries Code(s): I65.29 - Occlusion and stenosis of unspecified carotid artery Status: Acute (4) Opacity of lung on imaging study: Code(s): R91.8 - Other nonspecific abnormal finding of lung field Status: Acute (5) Hypokalemia: Code(s): E87.6 - Hypokalemia Status: Acute (6) Hypertension: Code(s): I10 - Essential (primary) hypertension Status: Acute (7) Type 2 diabetes mellitus: Code(s): E11.9 - Type 2 diabetes mellitus without complications Status: Acute (8) Hypothyroidism: Code(s): E03.9 - Hypothyroidism, unspecified Status: Acute Plan The patient presented to the emergency department via EMS from home for evaluation of vertigo and weakness after he pulled out of his bed trying to get up after a nap as detailed in HPI. Labs, imaging, EKG, and all reports were personally reviewed. The patient indicates that he has had ongoing problems with vertigo for years which has reportedly been ?thoroughly worked up.? Meclizine and diazepam given in the emergency department were without benefit. It does seem to have a mild peripheral component however CTA of the carotid arteries showed severe stenosis of the right internal carotid artery which I suppose could be causing some of the vertigo. He has no other neurologic symptoms that are new but does suffer from severe peripheral neuropathy in his feet which also causes balance issues. He is being admitted for MRI to rule out stroke. Brain MRI has been ordered for a.m.. He needs to be referred to a vascular surgeon given the right internal carotid artery stenosis. Continue aspirin and clopidogrel. Check fasting lipids in a.m.. Chest x-ray shows a somewhat nodular opacity in the left lateral costophrenic angle with recommend nonemergent low- dose contrast CT of the chest which can also be done as an outpatient. Blood pressures were reviewed and they have been running high, in the 150s to low 170s systolic over 80s diastolic. Continue current doses of isosorbide, losartan, metoprolol, and hydrochlorothiazide. These can be adjusted depending on how he trends. Potassium was a bit low and will be replaced and monitored. Renal function is stable on review of previous labs. Fasting glucose was 242 and hemoglobin A1c was 7.6% last month. Continue empagliflozin and initiate sliding scale insulin, Accu-Cheks, and hypoglycemic protocol. Continue levothyroxine; a recent TSH was within normal limits. Initiate fall precautions. Consult PT. The rest of his home medications will be reviewed and resumed as appropriate. Findings and treatment plan were discussed with the patient. Questions were solicited and answered to satisfaction. The patient's medical management will be taken over by the hospitalist team in a.m. Quality VTE Prophylaxis VTE prophylaxis: mechanical ordered If No VTE Prophylaxis Answer both mechanical and pharmacologic: Reason no pharmacologic proph: medical contraindication (patient on dual anti- platelet therapy, pharmacologic prophylaxis would put him at increased risk for bleeding) The patient has been admitted under observation status. Hospitalist MIPS Advance Care Plan I have confirmed that the patient's Advanced Care Plan is present, code status is documented, or surrogate decision maker is listed in patient medical record.: Yes Medication Reconciliation I have utilized all available resources to obtain, update and review the patients current medications (includes all prescriptions, OTC, herbals, cannabis, and nutritional supplements).: Yes
--- NOTE | 2024-10-29 02:04 | ECHO_ITS ---
Patient Info Name: Jairo Olguin Age: 74 years : 1950 Gender: Male Ht: 70 in Wt: 250 lbs BSA: 2.41 m2 HR: 62 bpm BP: 156 / 66 mmHg Technical Quality: Fair Exam Date: 10/29/2024 1:54 PM Patient Status: I Admit Date: 10/29/2024 Exam Type: CA echo dop color flow w con Complete two-dimensional, color flow and Doppler transthoracic echocardiogram is performed with contrast to opacify the left ventricle and to improve the deliniation of the left ventricle endocardial borders. Staff Referring Physician: Xi Hong Warehouse Attendant: Noelle Ley Attending Provider: Martín Rivera Contrast/Agitated Saline Contrast/Ag. Saline: Definity Amount: 2.00 ml Administered By: Noelle Ley Existing IV Access: Yes IV Access Condition: patent with no signs of infiltration Summary 1. Left ventricular chamber dimension is normal. 2. Left ventricular systolic function is normal, estimated at 65-70. 3. There is moderate concentric increased left ventricular wall thickness. 4. The left ventricular diastolic function is grade I diastolic dysfunction. 5. E/e' 10 is mildly elevated. 6. Left atrial chamber dimension is mildly enlarged. 7. Right atrial chamber dimension is mildly enlarged. 8. There is moderate aortic valve sclerosis. 9. There is mild tricuspid valve regurgitation. 10. Mild pulmonary hypertension, estimated pulmonary arterial systolic pressure is 45 mmHg. Left Ventricle E/e' 10 is mildly elevated. Left ventricular chamber dimension is normal. Left ventricular systolic function is normal, estimated at 65-70. There is moderate concentric increased left ventricular wall thickness. The left ventricular diastolic function is grade I diastolic dysfunction. Right Ventricle Right ventricular chamber dimension is normal. Right ventricular systolic function is normal and with normal TAPSE 2.5 cm. Left Atria Left atrial chamber dimension is mildly enlarged. Right Atria Right atrial chamber dimension is mildly enlarged. Aortic Valve The aortic valve is trileaflet. There is moderate aortic valve sclerosis. There is no aortic valve stenosis. There is no aortic valve regurgitation. Pulmonic Valve There is no pulmonic regurgitation. Mitral Valve There is no mitral valve stenosis. There is no mitral valve regurgitation. Tricuspid Valve There is mild tricuspid valve regurgitation. Mild pulmonary hypertension, estimated pulmonary arterial systolic pressure is 45 mmHg. Pericardium/Pleural There is no pericardial effusion. Inferior Vena Cava Normal inferior vena cava with >50% collapse upon inspiration consistent with normal right atrial pressure, 5 mmHg. Aorta The aortic root size at the sinus of Valsalva is normal. Left Ventricular Outflow Tract Name Value Normal LVOT 2D LVOT Diameter 2.2 cm LVOT Doppler LVOT Peak Velocity 170 cm/s LVOT Peak Gradient 12 mmHg LVOT Mean Gradient 7 mmHg LVOT VTI 36 cm LVOT VTI/AV VTI Ratio 0.9 LVOT Stroke Volume 131 ml LVOT CO 8.3 l/min LVOT CI 3.5 l/min/m2 Pulmonic Valve Name Value Normal PV Doppler PV Peak Velocity 139 cm/s PV Peak Gradient 8 mmHg Mitral Valve Name Value Normal MV Doppler MV Peak Gradient 5 mmHg MV Mean Gradient 2 mmHg MV Area (Cont Eq VTI) 3.7 cm2 MV Diastolic Function MV E Peak Velocity 89 cm/s MV A Peak Velocity 120 cm/s MV E/A 0.7 MV Decel Time (PW) 316 ms MV Annular TDI MV E/e' (Septal) 11.3 MV E/e' (Lateral) 9.4 MV E/e' (Average) 10.3 Tricuspid Valve Name Value Normal TV Regurgitation Doppler TR Peak Velocity 317 cm/s TR Peak Gradient 40 mmHg Estimated PAP/RSVP RA Pressure 5 mmHg <=5 PA Systolic Pressure 45 mmHg <36 RV Systolic Pressure 45 mmHg <36 TV Annular TDI TV Lateral Marika s' Velocity 15.1 cm/s >=9.5 Aortic Valve Name Value Normal AV Doppler AV Peak Velocity 214 cm/s AV Peak Gradient 18 mmHg AV Mean Gradient 9 mmHg AV VTI 42 cm AV Area (Cont Eq VTI) 3.1 cm2 >=3.0 AV Area (Cont Eq [place]o) 2.9 cm2 AV DI ([place]o) 0.80 AV Regurgitation 2D LVOT Area 3.6 cm2 Ventricles Name Value Normal LV Dimensions 2D/MM IVS Diastolic Thickness (2D) 1.3 cm 0.6-1.0 LVID Diastole (2D) 3.9 cm 4.2-5.8 LVIW Diastolic Thickness (2D) 1.4 cm 0.6-1.0 LVID Systole (2D) 3.2 cm 2.5-4.0 LVOT Diameter 2.2 cm LV Mass (2D Cubed) 193.21 g 88.00-224.00 LV Mass Index (2D Cubed) 80 g/m2 49-115 Relative Wall Thickness (2D) 0.73 <=0.42 LV Fractional Shortening/Ejection Fraction 2D/MM LV Fractional Shortening (2D) 18 % 25-43 LV EF (2D Teicheffiez) 39 % LV Diastolic Volume (4C MOD) 107 ml LV EF (4C MOD) 46 % LV Diastolic Length (4C) 8.7 cm LV Systolic Length (4C) 7.5 cm LV Stroke Volume (4C MOD) 49 ml Atria Name Value Normal LA Dimensions LA Volume (4C A-L) 60 ml LA Volume (BP A-L) 62 ml RA Dimensions RA Systolic Major [place] Length (4C) 5.2 cm 2.1-2.7 RA Area (4C) 21.7 cm2 <=18.0 Report Signatures
--- NOTE | 2024-10-29 02:09 | ADMGEN ---
This patient, Jairo Olguin, was admitted to Medical Room 243-01. Patient/family oriented to hospital policies and general routines including ID bracelet, bed and alarms, visiting hours, pain management, procedures, bathroom and other care routines, personal items, smoking policy, room service/diet, and visiting hours. Information on how to activate the Rapid Response Team has been discussed. Patient/Family are encouraged to report perceived risks to care and to ask questions if they do not understand what they are told or what they should do.
--- NOTE | 2024-10-29 02:40 | PC.NURSE ---
Pt is unablet o verify medication, pt stated that we need to call his pharmacy in the morning.
[2024-10-29 05:23] LABS: Anion Gap 11 mmol/L (4-12); Blood Urea Nitrogen 24 mg/dL (9-20); Calcium 9.1 mg/dL (8.4-10.2); Carbon Dioxide 26 mmol/L (22-30); Chloride 105 mmol/L (98-107); Cholesterol 178 mg/dL (0-200); Estimated CRCL calculation 55 ml/min; Estimated Glomerular Filt Rate 51; Glucose 213 mg/dL (65-110); HDL Direct 32 mg/dL; Magnesium 2.1 mg/dL (1.6-2.3); Potassium 3.1 mmol/L (3.4-5.0); Sodium 142 mmol/L (137-145); Triglycerides 167 mg/dL (<150)
[2024-10-29] MEDS: POTASSIUM CHLORIDE 20 MEQ PACKET (FOR LIQUID) 40 MEQ PO (08:53)
--- NOTE | 2024-10-29 12:56 | P.CONNEU_ITS ---
Consult date: 10/29/24 HPI: Jairo Olguin is a 74 year old male admitted to the hospital through the emergency room with complaints of dizziness and fall out of the bed. Subsequently he took a nap and when he woke up he was feeling very weak lightheaded and dizzy was unable to get out of the bed though he had no focal weakness of 1 or other side upper or lower extremity and also he reported no head injury. On initial evaluation in the emergency room it was documented he has been taking aspirin 81mg daily, clopidogrel 75mg daily, and isosorbide 30mg daily. He is reportedly allergic to ceftriaxone and statins he also has ongoing history of his stage IIIB chronic kidney disease, peripheral vascular disease, hypothyroidism, peripheral vascular disease, peripheral neuropathy, and type 2 diabetes mellitus. 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 Has been started on aspirin and clopidogrel in addition he has been continued on Jardiance has had losartan metoprolol and other medications. As per the review of the medical record patient has had the EMG nerve conduction study on 12 of September which documented [place] asymmetrical motor and sensory neuropathy Review of Systems 2 Review of Systems: All systems reviewed & are unremarkable except as noted in HPI and below PMFSH Past Medical History Medical History Benign prostate hyperplasia Stage 3b chronic kidney disease Hypothyroidism Peripheral vascular disease Lumbar radiculopathy Peripheral neuropathy Hypertension Sleep apnea Type 2 diabetes mellitus Surgical History Surgical History History of tonsillectomy History of knee surgery History of coronary artery stent placement Family History Family History Father , natural causes. Heart disease Hypertension Mother No problems noted. Sibling Acute myocardial infarction Social History Social History Social History: Surrogate medical decision maker: Kandice Arceo, daughter ([phone]). Code status: Full code. Smoking packs per day: 3 Smoking cigarettes per day: 60.0 Smoking status: Former smoker Tobacco type: cigarettes Second hand tobacco smoke exposure: No Alcohol intake: never Substance use: never Substance use type: does not use Do You Feel Safe in your Home?: Yes Lack of Transportation: No Lack of Food: Never True Current Housing: I Have Housing Concerned About Future Housing: No Difficulty Paying Gas/Electric Bills: No Difficulty Paying for Meds: No Currently Unemployed: No Education: High School Diploma/GED Difficulty w/ Childcare or Family Care: No Living arrangements: with family Occupation/Education: retired 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 Spiritual care concerns: No Meds Home Medications and Allergies Home Medications ?Medication ?Instructions ?Recorded ?Confirmed ?Type aspirin 81 mg chewable tablet 81 mg PO DAILY 07/28/22 10/29/24 History (Leroy Chewable Low Dose Aspirin) clopidogrel 75 mg tablet (Plavix) 75 mg PO DAILY 11/23/23 10/29/24 History ezetimibe 10 mg tablet (Zetia) 10 mg PO DAILY 11/23/23 10/29/24 History isosorbide mononitrate 30 mg 30 mg PO DAILY 11/23/23 10/29/24 History tablet,extended release 24 hr meclizine 12.5 mg tablet 12.5 mg PO DAILY PRN dizziness #30 03/26/24 10/29/24 Rx tabs vibegron 75 mg tablet (Gemtesa) 75 mg PO DAILY #30 tabs 03/27/24 10/29/24 Rx losartan 25 mg tablet See Rx Instructions .Route 05/28/24 10/29/24 Rx .COMPLEX #90 tabs gabapentin 100 mg capsule See Rx Instructions .Route 07/30/24 10/29/24 Rx .COMPLEX #120 caps hydrochlorothiazide 25 mg tablet See Rx Instructions .Route 07/30/24 10/29/24 Rx .COMPLEX #90 tabs empagliflozin 25 mg tablet See Rx Instructions .Route 04/17/25 06/30/25 Rx (Jardiance) .COMPLEX #90 tabs levothyroxine 50 mcg tablet See Rx Instructions .Route 08/16/24 10/29/24 Rx .COMPLEX #90 tabs metoprolol succinate 50 mg See Rx Instructions .Route 08/16/24 10/29/24 Rx tablet,extended release 24 hr .COMPLEX #90 tabs Allergies Allergy/AdvReac Type Severity Reaction Status Date / Time ceftriaxone (From Rocephin) Allergy Unknown Nausea Verified 09/06/24 10:52 [id number]-[id number] Reductase Allergy Unknown Unknown Verified 09/06/24 10:52 Inhibitor Vital Signs Vital Signs - 24 hr 10/28/24 20:13 10/28/24 20:13 10/28/24 20:17 Temperature 36.7 C Pulse Rate 68 69 Respiratory Rate 21 H Blood Pressure 152/91 H 152/91 H 144/75 H Pulse Oximetry 98 Oxygen Delivery Room Air 10/28/24 20:17 10/28/24 20:17 10/28/24 20:19 Temperature Pulse Rate 70 Respiratory Rate 21 H 12 Blood Pressure 150/71 H 144/75 H 150/71 H Pulse Oximetry 98 Oxygen Delivery 10/28/24 21:18 10/28/24 22:30 10/28/24 23:17 Temperature Pulse Rate 61 61 Respiratory Rate 20 18 Blood Pressure 176/78 H 157/78 H Pulse Oximetry 94 95 Oxygen Delivery 10/28/24 23:54 10/29/24 00:02 10/29/24 00:32 Temperature Pulse Rate 67 64 61 Respiratory Rate 17 17 15 Blood Pressure 170/73 H 155/71 H 152/75 H Pulse Oximetry 95 95 94 Oxygen Delivery 10/29/24 01:40 10/29/24 02:23 10/29/24 02:26 Temperature 36.4 C Pulse Rate 62 60 Respiratory Rate 16 16 Blood Pressure 176/80 H 165/81 H 165/80 H Pulse Oximetry 95 97 Oxygen Delivery 10/29/24 02:27 10/29/24 06:40 10/29/24 08:00 Temperature 36.7 C 36.3 C L Pulse Rate 62 60 57 L Respiratory Rate 18 20 Blood Pressure 156/66 H 168/88 H 177/67 H Pulse Oximetry 93 94 Oxygen Delivery 10/29/24 08:00 10/29/24 08:47 10/29/24 08:47 Temperature Pulse Rate 60 58 L 67 Respiratory Rate 20 22 H Blood Pressure 128/98 H 122/86 Pulse Oximetry 96 97 Oxygen Delivery 10/29/24 11:27 10/29/24 12:00 Temperature Pulse Rate 73 Respiratory Rate Blood Pressure Pulse Oximetry Oxygen Delivery Room Air Results Labs 10/28/24 20:12 10/29/24 04:16 Labs: Short CBC 10/28/24 Range/Units 20:12 WBC 12.2 H (4.5-10.0) K/mm3 Hgb 16.1 (14.0-18.0) g/dL Hct 50.0 (42.0-52.0) % Plt Count 174 (150-375) k/mm3 BMP 10/28/24 10/29/24 20:12 04:16 Sodium 141 142 Potassium 3.3 L 3.1 L Chloride 103 105 Carbon Dioxide 29 26 BUN 26 H D 24 H Creatinine 1.59 H 1.38 H Glucose 242 H 213 H Calcium 9.4 9.1 Cardiac Enzymes 10/28/24 10/28/24 Range/Units 20:12 22:58 Troponin I 0.024 0.026 (0.000-0.034) ng/mL Liver Function 10/28/24 Range/Units 20:12 Total Bilirubin 0.3 (0.2-1.3) mg/dL AST 26 (17-59) U/L ALT 24 (6-50) U/L Alkaline Phosphatase 95 (38-126) U/L Albumin 3.9 (3.5-5.1) g/dL Urine 10/28/24 Range/Units 21:17 Urine Color Yellow (Yellow) Urine Appearance Clear (Clear) Urine pH 5.5 (5.0-9.0) Ur Specific [place] 1.030 (1.001-1.035) Urine Protein Trace (Negative) mg/dL Urine Glucose (UA) 3+ H (Negative) mg/dL
--- NOTE | 2024-10-29 13:24 | P.CONNEU_ITS ---
Assessment and Plan Assessment and plan (1) History of recurrent TIAs: Code(s): Z86.73 - Personal history of transient ischemic attack (TIA), and cerebral infarction without residual deficits Status: Acute (2) Statin intolerance: Code(s): Z78.9 - Other specified health status Status: Acute (3) Type 2 diabetes mellitus: Code(s): E11.9 - Type 2 diabetes mellitus without complications Status: Acute Plan 1. Recurrent dizziness with gait dysfunction related to the diabetic neuropathy compatible with the clinical neurological examination as well. 2. 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 At present is getting aspirin 81mg daily, clopidogrel 75mg daily, along the antihypertensive medication. Clopidogrel can be continued for longer duration in his situation there is for the next 6 along with the aspirin. No matter what we do he will have difficulties in gait dysfunction, tendency to fall frequently, has to be guided and instructed accordingly to modify the home surround. If he is not taking any anticholesterol medication that can be discussed with in further by the dietitian if not allergic to any medication for the lower in the cholesterol can be started on. He is not a surgical candidate for the intervention of these stenosis. Consult date: 10/29/24 HPI: Jairo Olguin is a 74 year old male [facility] Past Medical History Medical History (Updated 10/29/24 @ 13:34 by Wang Baker MD) Internal carotid artery stenosis Benign prostate hyperplasia Stage 3b chronic kidney disease Hypothyroidism Peripheral vascular disease Lumbar radiculopathy Peripheral neuropathy Hypertension Sleep apnea Type 2 diabetes mellitus Surgical History Surgical History History of tonsillectomy History of knee surgery History of coronary artery stent placement Family History Family History Father , natural causes. Heart disease Hypertension Mother No problems noted. Sibling Acute myocardial infarction Social History Social History Social History: Surrogate medical decision maker: Kandice Arceo, daughter ([phone]). Code status: Full code. Smoking packs per day: 3 Smoking cigarettes per day: 60.0 Smoking status: Former smoker Tobacco type: cigarettes Second hand tobacco smoke exposure: No Alcohol intake: never Substance use: never Substance use type: does not use Do You Feel Safe in your Home?: Yes Lack of Transportation: No Lack of Food: Never True Current Housing: I Have Housing Concerned About Future Housing: No Difficulty Paying Gas/Electric Bills: No Difficulty Paying for Meds: No Currently Unemployed: No Education: High School Diploma/GED Difficulty w/ Childcare or Family Care: No Living arrangements: with family Occupation/Education: retired 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 Spiritual care concerns: No Meds Home Medications and Allergies Home Medications ?Medication ?Instructions ?Recorded ?Confirmed ?Type aspirin 81 mg chewable tablet 81 mg PO DAILY 07/28/22 10/29/24 History (Leroy Chewable Low Dose Aspirin) clopidogrel 75 mg tablet (Plavix) 75 mg PO DAILY 11/23/23 10/29/24 History ezetimibe 10 mg tablet (Zetia) 10 mg PO DAILY 11/23/23 10/29/24 History isosorbide mononitrate 30 mg 30 mg PO DAILY 11/23/23 10/29/24 History tablet,extended release 24 hr meclizine 12.5 mg tablet 12.5 mg PO DAILY PRN dizziness #30 03/26/24 10/29/24 Rx tabs vibegron 75 mg tablet (Gemtesa) 75 mg PO DAILY #30 tabs 03/27/24 10/29/24 Rx losartan 25 mg tablet See Rx Instructions .Route 05/28/24 10/29/24 Rx .COMPLEX #90 tabs gabapentin 100 mg capsule See Rx Instructions .Route 07/30/24 10/29/24 Rx .COMPLEX #120 caps hydrochlorothiazide 25 mg tablet See Rx Instructions .Route 07/30/24 10/29/24 Rx .COMPLEX #90 tabs empagliflozin 25 mg tablet See Rx Instructions .Route 08/16/24 10/29/24 Rx (Jardiance) .COMPLEX #90 tabs levothyroxine 50 mcg tablet See Rx Instructions .Route 08/16/24 10/29/24 Rx .COMPLEX #90 tabs metoprolol succinate 50 mg See Rx Instructions .Route 08/16/24 10/29/24 Rx tablet,extended release 24 hr .COMPLEX #90 tabs Allergies Allergy/AdvReac Type Severity Reaction Status Date / Time ceftriaxone (From Rocephin) Allergy Unknown Nausea Verified 09/06/24 10:52 Kolytqf-HSA-YqQ Reductase Allergy Unknown Unknown Verified 09/06/24 10:52 Inhibitor Vital Signs Vital Signs - 24 hr 10/28/24 20:13 10/28/24 20:13 10/28/24 20:17 Temperature 36.7 C Pulse Rate 68 69 Respiratory Rate 21 H Blood Pressure 152/91 H 152/91 H 144/75 H Pulse Oximetry 98 Oxygen Delivery Room Air 10/28/24 20:17 10/28/24 20:17 10/28/24 20:19 Temperature Pulse Rate 70 Respiratory Rate 21 H 12 Blood Pressure 150/71 H 144/75 H 150/71 H Pulse Oximetry 98 Oxygen Delivery 10/28/24 21:18 10/28/24 22:30 10/28/24 23:17 Temperature Pulse Rate 61 61 Respiratory Rate 20 18 Blood Pressure 176/78 H 157/78 H Pulse Oximetry 94 95 Oxygen Delivery 10/28/24 23:54 10/29/24 00:02 10/29/24 00:32 Temperature Pulse Rate 67 64 61 Respiratory Rate 17 17 15 Blood Pressure 170/73 H 155/71 H 152/75 H Pulse Oximetry 95 95 94 Oxygen Delivery 10/29/24 01:40 10/29/24 02:23 10/29/24 02:26 Temperature 36.4 C Pulse Rate 62 60 Respiratory Rate 16 16 Blood Pressure 176/80 H 165/81 H 165/80 H Pulse Oximetry 95 97 Oxygen Delivery 10/29/24 02:27 10/29/24 06:40 10/29/24 08:00 Temperature 36.7 C 36.3 C L Pulse Rate 62 60 57 L Respiratory Rate 18 20 Blood Pressure 156/66 H 168/88 H 177/67 H Pulse Oximetry 93 94 Oxygen Delivery 10/29/24 08:00 10/29/24 08:47 10/29/24 08:47 Temperature Pulse Rate 60 58 L 67 Respiratory Rate 20 22 H Blood Pressure 128/98 H 122/86 Pulse Oximetry 96 97 Oxygen Delivery 10/29/24 11:27 10/29/24 12:00 Temperature Pulse Rate 73 Respiratory Rate Blood Pressure Pulse Oximetry Oxygen Delivery Room Air Exam 2 Narrative: Revealed him to be awake alert cooperative in no obvious acute distress, head normocephalic with no bruit, ear nose throat examination normal, neck supple with no cervical bruit no thyromegaly no lymphadenopathy, heart regular with no murmur, lungs clear to auscultation with no rhonchi or crepitations, abdomen is soft protuberant, neurologically he is awake alert oriented in being in the hospital and aware that he is having dizzy having difficulties in ambulation at home and attributes that to his stroke, his speech is not dysphasic not dysarthric not dysphonic, pupils round regular muniz of vision full extraocular movements full with no nystagmus facial sensation intact face symmetrical tongue midline uvula midline motor examination revealed him to have fairly symmetrical strength proximally and distally with no drift against gravity with eyes closed on 1 side or other side, tone is normal, deep tendon reflexes are sluggish particularly in the lower extremities at the ankles plantar responses are downgoing he does have decreased sensation distally in both lower extremities , there is no evidence of ataxia or dysmetria on [id number]-finger. Results Labs 10/28/24 20:12 10/29/24 04:16 Labs: Short CBC 10/28/24 Range/Units 20:12 WBC 12.2 H (4.5-10.0) K/mm3 Hgb 16.1 (14.0-18.0) g/dL Hct 50.0 (42.0-52.0) % Plt Count 174 (150-375) k/mm3 BMP 10/28/24 10/29/24 20:12 04:16 Sodium 141 142 Potassium 3.3 L 3.1 L Chloride 103 105 Carbon Dioxide 29 26 BUN 26 H D 24 H Creatinine 1.59 H 1.38 H Glucose 242 H 213 H Calcium 9.4 9.1 Cardiac Enzymes 10/28/24 10/28/24 Range/Units 20:12 22:58 Troponin I 0.024 0.026 (0.000-0.034) ng/mL Liver Function 10/28/24 Range/Units 20:12 Total Bilirubin 0.3 (0.2-1.3) mg/dL AST 26 (17-59) U/L ALT 24 (6-50) U/L Alkaline Phosphatase 95 (38-126) U/L Albumin 3.9 (3.5-5.1) g/dL Urine 10/28/24 Range/Units 21:17 Urine Color Yellow (Yellow) Urine Appearance Clear (Clear) Urine pH 5.5 (5.0-9.0) Ur Specific [place] 1.030 (1.001-1.035) Urine Protein Trace (Negative) mg/dL Urine Glucose (UA) 3+ H (Negative) mg/dL
--- NOTE | 2024-10-29 14:02 | P.PNIM_ITS ---
Progress Note: A&P Assessment and Plan (1) Accidental fall from bed: Qualifiers: Encounter type: initial encounter Qualified Code(s): W06.XXXA - Fall from bed, initial encounter Code(s): W06.XXXA - Fall from bed, initial encounter Status: Acute Assessment and Plan: The patient presented to the emergency department via EMS from home for evaluation of vertigo and weakness after he pulled out of his bed trying to get up after a nap. Labs, imaging, EKG, and all reports were personally reviewed. -PT and OT ordered. (2) Vertigo: Code(s): R42 - Dizziness and giddiness Status: Acute Assessment and Plan: The patient indicates that he has had ongoing problems with vertigo for years which has reportedly been ?thoroughly worked up.? -CTA of the head and neck showed right carotid 70% stenosis and left carotid 30% stenosis. -Carotid stenosis could explain dizziness. -Echocardiogram ordered. -Meclizine as needed -Neurology consulted. (3) Internal carotid artery stenosis: Qualifiers: Laterality: bilateral Qualified Code(s): I65.23 - Occlusion and stenosis of bilateral carotid arteries Code(s): I65.29 - Occlusion and stenosis of unspecified carotid artery Status: Acute Assessment and Plan: -CTA of the head and neck showed right carotid 70% stenosis and left carotid 30% stenosis. -Carotid stenosis could explain dizziness. -Continue Plavix and aspirin. -See vascular as an outpatient. (4) Opacity of lung on imaging study: Code(s): R91.8 - Other nonspecific abnormal finding of lung field Status: Acute Assessment and Plan: Chest x-ray shows a somewhat nodular opacity in the left lateral costophrenic angle with recommend nonemergent low-dose contrast CT of the chest which can also be done as an outpatient. (5) Hypokalemia: Code(s): E87.6 - Hypokalemia Status: Acute Assessment and Plan: -K+ this morning 3.1. Prescribed 40 mEq this morning. -Replenish as needed. (6) Hypertension: Code(s): I10 - Essential (primary) hypertension Status: Acute Assessment and Plan: -Blood pressures were reviewed and they have been running high, in the 150s to low 170s systolic over 80s diastolic. Continue current doses of isosorbide, losartan, metoprolol, and hydrochlorothiazide. -Continue home medication (7) Type 2 diabetes mellitus: Code(s): E11.9 - Type 2 diabetes mellitus without complications Status: Acute Assessment and Plan: -Fasting glucose was 242 and hemoglobin A1c was 7.6% last month. -Continue empagliflozin and initiate sliding scale insulin, Accu-Cheks, and hypoglycemic protocol. (8) Hypothyroidism: Code(s): E03.9 - Hypothyroidism, unspecified Status: Acute Assessment and Plan: -Restart synthroid Subjective Date/time seen: 10/29/24 14:02 Interval history: Patient being treated due to dizziness. Patient has chronic dizziness. He has meclizine at home he takes for his dizziness. He states it helps occasionally. MRI had been ordered but is not been read yet. Echo ordered but this is not been done. Neurology consulted. He also has some hypokalemia that is being treated as necessary. Hopeful for discharge tomorrow if MRI and echo come back normal. Will likely need to see vascular outpatient for right carotid stenosis. Objective Data Vital Signs Vital Signs: Vital Signs - 24 hr 10/28/24 20:13 10/28/24 20:13 10/28/24 20:17 Temperature 98.0 F Pulse Rate 68 69 Respiratory Rate 21 H Blood Pressure 152/91 H 152/91 H 144/75 H Pulse Oximetry 98 Oxygen Delivery Room Air 10/28/24 20:17 10/28/24 20:17 10/28/24 20:19 Temperature Pulse Rate 70 Respiratory Rate 21 H 12 Blood Pressure 150/71 H 144/75 H 150/71 H Pulse Oximetry 98 Oxygen Delivery 10/28/24 21:18 10/28/24 22:30 10/28/24 23:17 Temperature Pulse Rate 61 61 Respiratory Rate 20 18 Blood Pressure 176/78 H 157/78 H Pulse Oximetry 94 95 Oxygen Delivery 10/28/24 23:54 10/29/24 00:02 10/29/24 00:32 Temperature Pulse Rate 67 64 61 Respiratory Rate 17 17 15 Blood Pressure 170/73 H 155/71 H 152/75 H Pulse Oximetry 95 95 94 Oxygen Delivery 10/29/24 01:40 10/29/24 02:23 10/29/24 02:26 Temperature 97.6 F Pulse Rate 62 60 Respiratory Rate 16 16 Blood Pressure 176/80 H 165/81 H 165/80 H Pulse Oximetry 95 97 Oxygen Delivery 10/29/24 02:27 10/29/24 06:40 10/29/24 08:00 Temperature 98.0 F 97.3 F L Pulse Rate 62 60 57 L Respiratory Rate 18 20 Blood Pressure 156/66 H 168/88 H 177/67 H Pulse Oximetry 93 94 Oxygen Delivery 10/29/24 08:00 10/29/24 08:47 10/29/24 08:47 Temperature Pulse Rate 60 58 L 67 Respiratory Rate 20 22 H Blood Pressure 128/98 H 122/86 Pulse Oximetry 96 97 Oxygen Delivery 10/29/24 11:27 10/29/24 12:00 Temperature Pulse Rate 73 Respiratory Rate Blood Pressure Pulse Oximetry Oxygen Delivery Room Air Intake/Output Intake/Output: Intake & Output 10/26/24 10/27/24 10/28/24 10/29/24 23:59 23:59 23:59 23:59 Intake Total 500 1102 Output Total 650 Balance 500 452 Meds/Results Medications: Active Medications Generic Name Dose Route Start Last Admin Trade Name Freq PRN Reason Stop Dose Admin Acetaminophen 650 mg 10/29/24 00:54 Acetaminophen 325 Mg Tablet PO Q4H PRN Mild Pain (1-3) or Fever Aspirin 81 mg 10/29/24 09:00 Aspirin 81 Mg Chewable Tablet PO DAILY [facility] Clopidogrel Bisulfate 75 mg 10/29/24 09:00 Clopidogrel Bisulfate 75 Mg Tablet PO DAILY [facility] Dextrose 12.5 gm 10/29/24 00:54 Dextrose 50% 25 Gm/50 Ml Syringe IV PUSH PRN PRN Hypoglycemia Protocol Ezetimibe 10 mg 10/29/24 09:00 Ezetimibe 10 Mg Tablet PO DAILY [facility] Gabapentin 100 mg 10/29/24 12:00 Gabapentin 100 Mg Capsule PO 0900,1200 CARLOZ Gabapentin 200 mg 10/29/24 21:00 Gabapentin 100 Mg Capsule PO HS [facility] Glucagon 1 mg 10/29/24 00:54 Glucagon For Inj 1 Mg Vial IM PRN PRN Hypoglycemia Protocol Glucose 15 gm 10/29/24 00:54 Glucose Oral Gel 15 Gm Of Glucse In 37.5 Gm Tube PO PRN PRN Hypoglycemia Protocol Hydrochlorothiazide 25 mg 10/29/24 09:00 Hydrochlorothiazide 25 Mg Tablet PO QAM CARLOZ Dextrose 1,000 mls @ 100 mls/hr 10/29/24 00:54 Dextrose 5% 1,000 Ml IVPB PRN PRN Hypoglycemia Protocol Isosorbide Mononitrate 30 mg 10/29/24 09:00 Isosorbide Mononitrate 30 Mg Tab.Er.24h PO DAILY [facility] Levothyroxine Sodium 50 mcg 10/30/24 06:30 Levothyroxine Sodium 50 Mcg Tablet PO DAILY@0630 CARLOZ Losartan Potassium 25 mg 10/29/24 09:00 Losartan Potassium 25 Mg Tablet PO QAM CARLOZ Meclizine HCl 25 mg 10/29/24 11:27 Meclizine Hcl 25 Mg Tablet PO Q8H PRN dizziness Metoprolol Succinate 50 mg 10/29/24 09:00 Metoprolol Succinate Ext Rel 50 Mg Tabcr PO QAM [facility] Miscellaneous Information 1 each 10/29/24 00:01 Gemtesa Is Non Formulary. Can He Use His Own Supply Or Hold While Hospitalized? XX 11/28/24 00:00 CLARIFY CARLOZ Non-Formulary Medication 75 mg 10/30/24 09:00 Vibegron [Gemtesa] PO 11/29/24 08:59 DAILY [facility] Ondansetron HCl 4 mg 10/29/24 00:54 Ondansetron Inj 4 Mg/2 Ml Vial IV PUSH Q4H PRN Nausea Perflutren Lipid Microsphere 0 ml 10/29/24 02:04 Perflutren Lipid Microspheres 1.5 Ml Vial Diluted To 10 Ml Total Volume IV PUSH 11/01/24 02:04 ONCE PRN adequate visualization Protocol Radiology Results: ITS Impressions Head CT 10/28/24 20:40 IMPRESSION: No acute intracranial process. Chest X-Ray 10/28/24 20:44 IMPRESSION: No acute cardiopulmonary process. Persistent somewhat nodular opacity in the left lateral costophrenic angle, may represent scar versus pulmonary nodule. Recommend nonemergent but timely low- dose noncontrast CT of the chest for further evaluation. Head/Neck CTA 10/29/24 05:18 Impression: 70% stenosis at the portion of the right internal carotid artery. 30% stenosis of the proximal left internal carotid artery. 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 Atherosclerotic calcifications with high-grade stenoses in the bilateral cavernous portions of the distal internal carotid arteries. Labs Labs: Laboratory Results - last 24 hr 10/28/24 10/28/24 10/28/24 20:11 20:12 20:32 WBC 12.2 H RBC 5.43 Hgb 16.1 Hct 50.0 MCV 92.1 MCH 29.7 MCHC 32.2 RDW 14.2 Plt Count 174 MPV 9.7 Immature Gran % (Auto) 1.9 H Neut % (Auto) 77.0 H Lymph % (Auto) 12.7 L [place] % (Auto) 7.8 Eos % (Auto) 0.2 Baso % (Auto) 0.4 Lymph # (Auto) 1.54 [place] # (Auto) 1.0 H Eos # (Auto) 0.0 Baso # (Auto) 0.1 Abs Immat Gran (auto) 0.23 H Absolute Neuts (auto) 9.4 H Absolute Nucleated RBC 0.000 Nucleated RBC % 0.0 PT 13.2 INR 1.0 APTT 29.7 D-Dimer 0.30 Sodium 141 Potassium 3.3 L Chloride 103 Carbon Dioxide 29 Anion Gap 9 BUN 26 H D Creatinine 1.59 H Estim Creat Clear Calc Not Reportable Estimated GFR 43 L Glucose 242 H Calcium 9.4 Magnesium 2.2 Total Bilirubin 0.3 AST 26 ALT 24 Alkaline Phosphatase 95 Troponin I 0.024 NT-Pro-B Natriuret Pep 702 H Total Protein 6.8 Albumin 3.9 Triglycerides Cholesterol LDL Cholesterol Direct HDL Direct Urine Color Urine Appearance Urine pH Ur Specific [place] Urine Protein Urine Glucose (UA) Urine Ketones Ur Blood (Man) Urine Nitrate Urine Bilirubin Urine Urobilinogen Leukocyte Esterase Rfl Urine RBC Urine WBC Ur Squamous Epith Cells Urine Bacteria Urine Casts Influenza A (RT-PCR) Negative Influenza B (RT-PCR) Negative RSV (RT-PCR) Negative SARS-CoV-2 RNA (RT-PCR) Negative 10/28/24 10/28/24 10/29/24 21:17 22:58 04:16 WBC RBC Hgb Hct MCV MCH MCHC RDW Plt Count MPV Immature Gran % (Auto) Neut % (Auto) Lymph % (Auto) [place] % (Auto) Eos % (Auto) Baso % (Auto) Lymph # (Auto) [place] # (Auto) Eos # (Auto) Baso # (Auto) Abs Immat Gran (auto) Absolute Neuts (auto) Absolute Nucleated RBC Nucleated RBC % PT INR APTT D-Dimer Sodium 142 Potassium 3.1 L Chloride 105 Carbon Dioxide 26 Anion Gap 11 BUN 24 H Creatinine 1.38 H Estim Creat Clear Calc 55 Estimated GFR 51 L Glucose 213 H Calcium 9.1 Magnesium 2.1 Total Bilirubin AST ALT Alkaline Phosphatase Troponin I 0.026 NT-Pro-B Natriuret Pep Total Protein Albumin Triglycerides 167 H Cholesterol 178 LDL Cholesterol Direct 108 HDL Direct 32 Urine Color Yellow Urine Appearance Clear Urine pH 5.5 Ur Specific [place] 1.030 Urine Protein Trace Urine Glucose (UA) 3+ H Urine Ketones Negative Ur Blood (Man) Negative Urine Nitrate Negative Urine Bilirubin Negative Urine Urobilinogen 0.2 Leukocyte Esterase Rfl Negative Urine RBC 0-2 Urine WBC 0-5 Ur Squamous Epith Cells None seen Urine Bacteria None seen Urine Casts 0-2 Influenza A (RT-PCR) Influenza B (RT-PCR) RSV (RT-PCR) SARS-CoV-2 RNA (RT-PCR)
[2024-10-29] MEDS: PERFLUTREN LIPID MICROSPHERES 1.5 ML VIAL DILUTED TO 10 ML TOTAL VOLUME IV PUSH (14:20)
[2024-10-29] MEDS: ISOSORBIDE MONONITRATE 30 MG TAB.ER.24H PO (15:44)
[2024-10-29] MEDS: ASPIRIN 81 MG CHEWABLE TABLET PO (15:44)
[2024-10-29] MEDS: METOPROLOL SUCCINATE EXT REL 50 MG TABCR PO (15:45)
[2024-10-29] MEDS: CLOPIDOGREL BISULFATE 75 MG TABLET PO (15:45)
[2024-10-29] MEDS: GABAPENTIN 100 MG CAPSULE PO (15:45)
[2024-10-29] MEDS: LOSARTAN POTASSIUM 25 MG TABLET PO (15:45)
[2024-10-29] MEDS: EZETIMIBE 10 MG TABLET PO (15:45)
--- NOTE | 2024-10-29 16:53 | IVDEFINITY ---
Prior to administration of IV Definity the patient was educated on the risks and benefits of the imaging enhancing agent including potential adverse side effects. The patient verbalized understanding. Allergies were verified. No exclusion criteria were identified and at least one of the following inclusion criteria were met: 1) physician request, 2) patient technically difficult to image (per the [place] [employer] of Echocardiography guidelines of two or more segments not discernable within the apical view), or 3) questionable left ventricular function. ?
[2024-10-29] MEDS: MECLIZINE HCL 25 MG TABLET PO (17:32)
[2024-10-29] MEDS: GABAPENTIN 100 MG CAPSULE 200 MG PO (21:30)
[2024-10-30] VITALS (8 sets, daily range): BP systolic 129–168; BP diastolic 60–72; PULSE 48–73; RESP 18–22; TEMP 36.2–36.4; O2SAT 93–96
[2024-10-30 06:03] LABS: Hematocrit 49.0 % (42.0-52.0); Hemoglobin 15.4 g/dL (14.0-18.0); Immature Granulocyte Percent A 2.1 % (0-0.5); Lymphocytes Absolute Auto 1.32 K/mm3 (0.9-3.2); Mean Corpuscular HGB Conc 31.4 g/dl (32-36); Mean Corpuscular Hemoglobin 29.7 pg (26-34); Mean Corpuscular Volume 94.4 fl (80-100); Nucleated Red Blood Cells Absolute Auto 0.000 K/mm3 (0.0-0.012); Nucleated Red Blood Cells Perc 0.0 % (0.0-0.2); Platelet Count Result 160 k/mm3 (150-375); Red Blood Count 5.19 M/mm3 (4.6-6.20); White Blood Count 10.8 K/mm3 (4.5-10.0)
[2024-10-30 06:10] LABS: Alanine Aminotransferase 19 U/L (6-50); Albumin Level 3.7 g/dL (3.5-5.1); Alkaline Phosphatase 83 U/L (38-126); Anion Gap 7 mmol/L (4-12); Aspartate Amino Transferase 24 U/L (17-59); Bilirubin,Total 0.4 mg/dL (0.2-1.3); Blood Urea Nitrogen 22 mg/dL (9-20); Calcium 9.2 mg/dL (8.4-10.2); Carbon Dioxide 29 mmol/L (22-30); Chloride 104 mmol/L (98-107); Estimated CRCL calculation 64 ml/min; Estimated Glomerular Filt Rate 60; Glucose 157 mg/dL (65-110); Potassium 3.2 mmol/L (3.4-5.0); Sodium 140 mmol/L (137-145); Total Protein 6.4 g/dL (6.3-8.2)
[2024-10-30] MEDS: LEVOTHYROXINE SODIUM 50 MCG TABLET PO (06:10)
[2024-10-30] MEDS: ASPIRIN 81 MG CHEWABLE TABLET PO (08:36)
[2024-10-30] MEDS: CLOPIDOGREL BISULFATE 75 MG TABLET PO (08:37)
[2024-10-30] MEDS: EZETIMIBE 10 MG TABLET PO (08:37)
[2024-10-30] MEDS: METOPROLOL SUCCINATE EXT REL 50 MG TABCR PO (08:37)
[2024-10-30] MEDS: ISOSORBIDE MONONITRATE 30 MG TAB.ER.24H PO (08:37)
[2024-10-30] MEDS: LOSARTAN POTASSIUM 25 MG TABLET PO (08:37)
[2024-10-30] MEDS: MECLIZINE HCL 25 MG TABLET PO (08:43)
[2024-10-30] MEDS: POTASSIUM CHLORIDE 20 MEQ ER TABLET 40 MEQ PO (08:43)
[2024-10-30] MEDS: GABAPENTIN 100 MG CAPSULE PO ×2 (08:44→11:17)
[2024-10-30 12:24] LABS: Potassium 3.7 mmol/L (3.4-5.0)
--- NOTE | 2024-10-30 12:53 | PM.DS ---
DS: Admitting Diagnosis Discharge Date 10/30/24 Admitting Diagnosis Dizziness DS: Discharge Diagnosis Discharge Diagnosis (1) Accidental fall from bed: Qualifiers: Encounter type: initial encounter Qualified Code(s): W06.XXXA - Fall from bed, initial encounter Code(s): W06.XXXA - Fall from bed, initial encounter Status: Acute (2) Vertigo: Code(s): R42 - Dizziness and giddiness Status: Acute (3) Internal carotid artery stenosis: Qualifiers: Laterality: bilateral Qualified Code(s): I65.23 - Occlusion and stenosis of bilateral carotid arteries Code(s): I65.29 - Occlusion and stenosis of unspecified carotid artery Status: Acute (4) Opacity of lung on imaging study: Code(s): R91.8 - Other nonspecific abnormal finding of lung field Status: Acute (5) Hypokalemia: Code(s): E87.6 - Hypokalemia Status: Acute (6) Hypertension: Code(s): I10 - Essential (primary) hypertension Status: Acute (7) Type 2 diabetes mellitus: Code(s): E11.9 - Type 2 diabetes mellitus without complications Status: Acute (8) Hypothyroidism: Code(s): E03.9 - Hypothyroidism, unspecified Status: Acute DS: Summary Hospital Course Hospital Course: Patient is a 74-year-old male who presented emergency room for acute on chronic dizziness. Patient states that he has had this for a long time and the day of admission he was getting out of bed and felt dizzy which caused him to fall to the ground. During his hospital stay it was revealed that he has 70% stenosis of the right ICA and 30% stenosis of the left. His brain MRI was negative for acute infarctions. He underwent an echo with no significant findings. He was found to have trigeminy at times and he was noted to have hypokalemia. At discharge his potassium was normal and he was sent home on a few more days of potassium to ensure his potassium level is sustained. I instructed him to follow-up with his primary care provider for repeat testing. Also think he needs to see vascular Neurology and discussed referral to see Dr. Devonte Suarez it [facility] but [place] [facility] [place] and is going to follow up with his primary care provider about other options. He is also going to follow up about his chest x-ray which shows a possible lung nodule as he will need a CT scan outpatient. He was found to have small left and moderate right-sided mastoid effusions the patient has no complaints of this and this could be causing his dizziness so I will refer him to ENT. His white blood cell count was initially elevated and has a history of this but was near normal at discharge. No signs of infection on history or exam of the ears. I also think he should follow up with Cardiology due to trigeminy although this does not appear to to be the cause of his dizziness. No heart block noted. He states he has a rn radiation oncology and will discuss this with him. We discussed the worrisome signs and symptoms to come back to emergency room for and patient agreed. Time Spent with Patient Time attestation: Total time spent providing and/or coordinating discharge services:40 Time spent: Greater than 30 minutes Exam Narrative: General: Overweight patient resting comfortably in bed in no acute distress HEENT: normocephalic Neck: supple Ears: Wax noted bilaterally. No bulging of the ear drums. No significant erythema or evidence of acute infection Neuro: Alert and oriented x4 CV:RRR on my exam. Telemetry shows occasional PVCs and episodes of trigeminy Resp:CTA Abd: Soft, non distended. No pain to palpation. Positive bowel sounds Extremities: No swelling, erythema, or pain to palpation to lower extremities. DS: Data Data Completed and Pending Labs on day of discharge: Labs from last 24 hours 10/30/24 10/30/24 10/29/24 12:10 05:03 22:43 WBC 10.8 H RBC 5.19 Hgb 15.4 Hct 49.0 MCV 94.4 MCH 29.7 MCHC 31.4 L RDW 14.2 Plt Count 160 MPV 9.9 Immature Gran % (Auto) 2.1 H Neut % (Auto) 77.9 H Lymph % (Auto) 12.2 L [place] % (Auto) 6.6 Eos % (Auto) 0.6 Baso % (Auto) 0.6 Lymph # (Auto) 1.32 [place] # (Auto) 0.7 H Eos # (Auto) 0.1 Baso # (Auto) 0.1 Abs Immat Gran (auto) 0.23 H Absolute Neuts (auto) 8.4 H Absolute Nucleated RBC 0.000 Nucleated RBC % 0.0 Sodium 140 Potassium 3.7 3.2 L Chloride 104 Carbon Dioxide 29 Anion Gap 7 BUN 22 H Creatinine 1.19 Estim Creat Clear Calc 64 Estimated GFR 60 Glucose 157 H POC Capillary Glucose 161 H Calcium 9.2 Total Bilirubin 0.4 AST 24 ALT 19 Alkaline Phosphatase 83 Total Protein 6.4 Albumin 3.7 Discharge Plan Discharge Attending physician on discharge: Monty Mcnamara Consulting providers: Wang Baker Discharging Clinician: Xi Garcia Patient Disposition: Home Activity: as tolerated Diet: diabetic Discharge Instructions: -please continue to rise slowly from a seated position when walking. Use assistive devices such as a cane or walker as recommend -follow-up with your primary care provider in 1 week from this hospital stay. As discussed, I want you to talk to them about: 1. rechecking your labs. You were low on potassium for several days and you were normal on discharge. We will give you a few extra days of potassium to ensure this remains normal but you should follow-up with her primary care to make sure this is Re checked. You may need daily potassium supplementation your primary care will help decide this. 2. Chest CT due possible nodule found on xray. 3. follow up with vascular Neurology or vascular surgery. Talk to your primary care provider about a provider near you. Dr. Devonte Suarez at [facility] is the doctor we were discussing but I know you requested a closer provider. 4. Seeing your rn radiation oncology to discuss trigeminy (extra heart beats) 5. ENT- call them to schedule an appointment for fluid in your ears. If they start hurting or you start having a fever, let your primary care provider know. Worrisome signs and symptoms come back to emergency room for: Chest pain, shortness of breath, falls, passing out, fevers 100.4 or greater, progressive significant weakness, or any other worrisome symptom Patient Language: [place] Stand Alone Forms: General Discharge Information Follow-up/Referrals: Dr. Harris [Other] Matt Harris MD [Physician] - Vicki Salmeron APRN [Primary Care Provider] - Discharge Medications: New potassium chloride [K-Tab] 20 mEq tablet extended release 20 meq PO DAILY Qty: 3 0RF Continued isosorbide mononitrate 30 mg tablet extended release 24 hr 30 mg PO DAILY clopidogrel [Plavix] 75 mg tablet 75 mg PO DAILY ezetimibe [Zetia] 10 mg tablet 10 mg PO DAILY aspirin [Leroy Chewable Aspirin] 81 mg tablet,chewable 81 mg PO DAILY meclizine 12.5 mg tablet 12.5 mg PO DAILY PRN (Reason: dizziness) Qty: 30 0RF Gemtesa 75 mg tablet 75 mg PO DAILY Qty: 30 1RF losartan 25 mg tablet See Rx Instructions .ROUTE .COMPLEX Qty: 90 1RF Dose Instruction: TAKE ONE (1) TABLET BY MOUTH EVERY DAY Rx Instructions: TAKE ONE (1) TABLET BY MOUTH EVERY DAY gabapentin 100 mg capsule See Rx Instructions .ROUTE .COMPLEX Qty: 120 3RF Dose Instruction: TAKE ONE (1) CAPSULE BY MOUTH MORNING AND NOON, TAKE TWO (2) BY MOUTH NIGHTLY AT BEDTIME Rx Instructions: TAKE ONE (1) CAPSULE BY MOUTH MORNING AND NOON, TAKE TWO (2) BY MOUTH NIGHTLY AT BEDTIME hydrochlorothiazide 25 mg tablet See Rx Instructions .ROUTE .COMPLEX Qty: 90 0RF Dose Instruction: TAKE ONE (1) TABLET BY MOUTH EVERY DAY Rx Instructions: TAKE ONE (1) TABLET BY MOUTH EVERY DAY metoprolol succinate 50 mg tablet extended release 24 hr See Rx Instructions .ROUTE .COMPLEX Qty: 90 1RF Dose Instruction: TAKE ONE (1) TABLET BY MOUTH DAILY Rx Instructions: TAKE ONE (1) TABLET BY MOUTH DAILY levothyroxine 50 mcg tablet See Rx Instructions .ROUTE .COMPLEX Qty: 90 1RF Dose Instruction: TAKE ONE (1) TABLET BY MOUTH DAILY Rx Instructions: TAKE ONE (1) TABLET BY MOUTH DAILY Jardiance 25 mg tablet See Rx Instructions .ROUTE .COMPLEX Qty: 90 1RF Dose Instruction: TAKE ONE (1) TABLET BY MOUTH DAILY Rx Instructions: TAKE ONE (1) TABLET BY MOUTH DAILY Other Ambulatory Orders: PT Outpatient Eval and Treat (ONCE) Timeframe: [id number] Location: Determined by Patient Ordered By: Xi Garcia Date of admission: 10/29/24 00:56 Primary Care Provider: Vicki Salmeron Admitting Provider: Martín Rivera Attending physician on admission: Xi Garcia Condition: Stable
== END 2024-10-30 16:25 | disposition home or self-care (01) ==
LOC: ANHED 10-29 01:00 → ANH2MED 10-29 14:32
PROVIDERS: Internal Medicine Critical Care Medicine; Physician Assistant; Student in an Organized Health Care Education/Training Program; Admitting Provider Internal Medicine; Emergency Provider Physician Assistant; PCP Nurse Practitioner Adult Health; Visit Provider Physician Assistant
DX: R42 Dizziness and giddiness (principal); W06.XXXA Fall from bed, initial encounter; Z91.81 History of falling; R26.2 Difficulty in walking, not elsewhere classified; I65.23 Occlusion and stenosis of bilateral carotid arteries; R91.8 Other nonspecific abnormal finding of lung field; E87.6 Hypokalemia; H74.8X3 Other specified disorders of middle ear and mastoid, bilateral; I12.9 Hypertensive chronic kidney disease with stage 1 through stage 4 chronic kidney disease, or unspecified chronic kidney disease; N18.32 Chronic kidney disease, stage 3b; E11.22 Type 2 diabetes mellitus with diabetic chronic kidney disease; E11.42 Type 2 diabetes mellitus with diabetic polyneuropathy; E11.51 Type 2 diabetes mellitus with diabetic peripheral angiopathy without gangrene; E03.9 Hypothyroidism, unspecified; N40.0 Benign prostatic hyperplasia without lower urinary tract symptoms; N32.81 Overactive bladder; G47.30 Sleep apnea, unspecified; Z87.891 Personal history of nicotine dependence; Z20.822 Contact with and (suspected) exposure to COVID-19; Z78.9 Other specified health status; Z79.82 Long term (current) use of aspirin; Z79.02 Long term (current) use of antithrombotics/antiplatelets; Z79.899 Other long term (current) drug therapy; Z86.73 Personal history of transient ischemic attack (TIA), and cerebral infarction without residual deficits; Z95.5 Presence of coronary angioplasty implant and graft
CPT/HCPCS: 36415; 70450; 70496; 70498; 70553; 71045; 80048; 80053; 80061; 81001; 82948; 83735; 83880; 84132; 84484; 85025; 85380; 85610; 85730; 87637; 93005; 96374; 96375; 97162; 99285; A9270; A9577; C8929; G0378; J3360; J7040; Q9957; Q9967

== ENCOUNTER 2024-11-01 13:36 | Inpatient (IN) | payer MEDICARE, SELFPAY ==
--- NOTE | ~2024-11-01 | XR_ITS ---
XR chest 2V Ordering provider: Akil Doss MD History: 74 years Male with . chest pain . Comparison: October 28, 2024 FINDINGS: MEDIASTINUM: The cardiac silhouette is not enlarged. LUNGS: No infiltrates, effusions or pneumothorax. OTHER: No free air under the diaphragm. . Degenerative changes of the spine. IMPRESSION: No acute cardiopulmonary pathology Reviewed, dictated and finalized at location A.
--- NOTE | ~2024-11-01 | XR_ITS ---
MODIFIED ESOPHAGRAM HISTORY: Assess for aspiration TECHNIQUE: Modified barium esophagram was performed on 11/06/2024. I administered fluoroscopy and perfo rmed the exam with speech pathologist. Patient was seated for lateral fluoroscopic imaging for inges tion of thin liquids, pudding, solids and quantified amounts, followed by thin liquids in uncontrolle d amounts. This was recorded on tape. No fluoroscopic images were recorded. The DAP for this procedur e was 4.681 Gycm2. The amount of fluoroscopy time used during this procedure was 3.6 minutes. FINDINGS: Oral stage: Adequate function. Pharyngeal stage: Trace vallecular residue. There is laryngeal penetration without aspiration. There are large anterior osteophytes which exerts mass effect upon the posterior wall of the pharynx at C3- C4. Cervical/esophageal stage: Adequate function. Additional prominent anterior osteophytes at C5-C6. IMPRESSION: Mild pharyngeal dysphagia with laryngeal penetration without aspiration. Please correlat e with speech pathologist findings and specific feeding recommendations. Reviewed, dictated and finalized at location A. IMPRESSION: Mild pharyngeal dysphagia with laryngeal penetration without aspira tion. Please correlate with speech pathologist findings and specific feeding r ecommendations.
--- NOTE | ~2024-11-01 | XR_ITS ---
XR foot LT 2V Ordering provider: Tiffani Avery APRN History: . pain. HURT IN 1989 . Comparison: None. FINDINGS: BONES: No acute fracture or dislocation. JOINT SPACES: Narrowing of the proximal and distal interphalangeal joints.. No tarsal coalition. SOFT TISSUES: Normal. Calcaneus spur. Ossification of the insertion of the tendo Achilles. IMPRESSION: No acute osseous abnormality left foot. Polyarticular osteoarthritic changes. Reviewed, dictated and finalized at location A.
--- NOTE | 2024-11-01 13:37 | ECG_ITS ---
Test Date: 2024-11-01 13:48:46 Measurements Intervals [place] Rate: 73 P: 5 MI: 171 QRS: -34 QRSD: 96 T: 75 QT: 401 QTc: 444 Interpretive Statements SINUS RHYTHM MARKED LEFT AXIS DEVIATION [QRS AXIS < -30] PATTERN CONSISTENT WITH PULMONARY DISEASE LEFT VENTRICULAR HYPERTROPHY AND ST-T CHANGE [VOLTAGE CRITERIA PLUS ST/T ABNORMALITY] Compared to ECG 10/28/2024 23:03:34 Left-axis deviation now present ST (T wave) deviation still present Electronically Signed On 11-02-2024 12:40:49 CDT by Louie Lomeli M.D.
--- OUTSIDE RECORDS SUMMARY | 2024-11-01 13:38 | XMS_ITS | Encounter Summary ---
Author Organization [facility] Healthcare Address [address] [place] [address] Care Team Providers Care Tour Narrator Name Role Phone Nicolas Jung MD Unavailable [phone] Louie Lomeli MD Unavailable [phone] Melchor Woodard MD Primary Care Provider [phone] Jairo Sparrow MD Unavailable [phone] Maria Eugenia Navarrete [facility] Unavailable [phone] Encounter Details Date Type Department Care Team (Late st Contact Info) Description 01/24/2023 Orders Only [facility] [address] [address] [address] [place] [address] Miah Rodrigues MA Pre-op testing [...] week 12/24/2021 How often do you attend [facility] or congregational services? Never 12/24/2021 Do you belong to [...] place to sleep or slept in a prison (including now)? No 12/24/2021 Sex and Gender Information Value Date Recorded Sex Assigned at Not on file Legal Sex Male 12:23 AM [employer]ING [employer] Gender Identity Not on file Sexual Orientation [...] COVID: Suspected 06/12/2024 06/12/2024 06/12/2024 4:34 PM [employer]ING [employer]ER COVID: Suspected 07/30/2024 07/30/2024 07/30/2024 4:38 PM CDT documented as of this encounter Care Teams Tour Narrator Relationship Specialty Start Date End Date Melchor Woodard MD PCP - General Family Practice 07/30/22 Nicolas Jung MD Surgeon Orthopedic Surgery 08/05/21 Louie Lomeli MD Consulting Physician Cardiology 12/23/21 Jairo Sparrow MD [address] [place] [address] [address] [place] [address] Consulting Physician Neurology 12/14/22 Maria Eugenia Navarrete, [address] [place] [address] Pharmacist Pharmacy 03/12/24 03/12/24 documented as of this encounter
--- OUTSIDE RECORDS SUMMARY | 2024-11-01 13:38 | XMS_ITS | Clinical Summary ---
Author Organization [facility] Address [address] [address] Care Team Providers Care Tanning Drum Operator Name Role Phone Melchor Woodard MD Primary Care Provider [phone] Allergies Active Allergy Reactions Criticality Noted Date Comments Ceftriaxone Nausea and Vomiting Low 09/23/2021 Xpgckdy-Ocg-Lws Reductase Inhibitors Other (See Comments) Low 01/26/2018 [...] 1997 DIABETES ANNUAL FOOT EXAM 10/28/2022 10/28/2021 COVID-19 Vaccine (2023-2 5 season) 2024 03/25/2021, 07/08/2020, 06/10/2020 DIABETES HBA1C Q 6 MONTHS 10/12/2024 04/13/2024, INFLUENZA VACCINE (#1) 2024 , 03/18/2020, 02/02/2019, Additional history exists RSV VACCINE (60+ or ) (1 - 1-dose 75+ series) 2027 DTAP/TDAP/TD VACCINES (3 - T d or Tdap) 02/12/2030 02/13/2020, 12/11/2015 PNEUMOCOCCAL VACCINE 50+ YEARS Completed 09/27/2017 , 03/12/2016 ZOSTER VACCINE Completed 03/19/2020, 11/2018, 03/27/2018 Insurance [facility] [id number] Care Teams Tanning Drum Operator Relationship Specialty Start Date End Date Melchor Woodard MD PCP - General Family Practice 09/28/22
--- OUTSIDE RECORDS SUMMARY | 2024-11-01 13:38 | XMS_ITS | Encounter Summary ---
Author Organization [facility] Healthcare Address [address] [place] [address] Care Team Providers Care Strategic Planning Director Name Role Phone Nicolas Jung MD Unavailable [phone] Louie Lomeli MD Unavailable [phone] Melchor Woodard MD Primary Care Provider [phone] Jairo Sparrow MD Unavailable [phone] Encounter Details Date Type Department Care Team (Late st Contact Info) Description 08/09/2024 Documentation [facility] Case Management [address] [place] [address] Rodriguez Goldstein RN Social History Tobacco Use [...] materials from doctor or pharmacy Sometimes 01/17/2024 [facility] Utilities Answer Date Recorded In the [...] often do you attend chur ch or mandaeism services? Never 07/31/2024 Do you belong to any clubs o r organizations such as sikh groups, unions, fraternal or athletic groups, or [...] place to sleep or slept in a nursing home (including now)? No 08/29/2023 Housing Stability Vital Sign Answer Víctor e Recorded In the last 12 months, was t here a time when you were not able to pay the mortgage or rent on time? No 07/31/2024 In the past 12 months, how m any times have you moved where you were living? 1 07/31/2024 At any time in the past 12 m [facility], were you homeless or living in a nursing home (including now)? 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 Gender Identity Not on file Sexual Orientation Not on file documented as of this encounter Plan of Treatment Not on file documented as of this encounter Visit Diagnoses Not on filedocumented in this encounter Care Teams Strategic Planning Director Relationship Specialty Start Date End Date Melchor Woodard MD PCP - General Family Practice 07/30/22 Nicolas Jung MD Surgeon Orthopedic Surgery 08/05/21 Louie Lomeli MD Consulting Physician Cardiology 12/23/21 Jairo Sparrow MD [address] MAO [address] [place] [address] Consulting Physician Neurology 12/14/22 documented as of this encounter
--- OUTSIDE RECORDS SUMMARY | 2024-11-01 13:38 | XMS_ITS | Continuity of Care Document ---
Author Organization [facility] Address [address] [facility] [address] [place] [address] Phone Care Team Providers Care Freight Delivery Driver Name Role Phone Kita Perry OD Unavailable [...] Diagnoses Date Provider Providers Copied on [facility]counter [facility], [address], [place], [place], [address], [place] tel:[phone] SEC Arnoldo ECKERT Professional No Information 3 Vicky JOSE JUAN Kita. [address], [address], [place], [place], [address], [place]. 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 [facility] [employer], [address], [place], [place], [address], [place]. tel:[phone] Referring Provider: Kita Perry OD L, [facility] [employer] [address], [place], [address] . tel:[phone] [facility], [facility] [address], [place], [place], [address], [place] tel:[phone] SEC Arnoldo ECKERT Professional Cataract Evaluation (chief complaint) Pseudophakia of right eyeCombined forms of age-related cataract, left eyeXT (exotropia)Pt osis of both eyelids 0 1 Waqar Pace. [address], [facility] [address], [place], [place], [address], [place]. tel:[phone] Referring Provider: Sanjeev Barker, [address] [facility] [address], [place], [address] . tel:[phone] Office/outpa tient Visit, Est [facility], [facility] [address], [place], [place], [address], [place] tel:[phone] SEC Arnoldo ECKERT Professional WIE (chief complaint) Abrasion of right eyelid, initial encounterEdem a of right upper eyelid Oct-0 0 Waqar Pace. [address], [facility] [address], [place], [place], [address], [place]. tel:[phone] Referring Provider: Sanjeev Barker, [address], [place], [address] . tel:[phone] [facility], [address], [place], [place], [address], [place] tel:[phone] SEC Arnoldo ECKERT Professional 1 month s/p PCIOL (chief complaint) Post op visit 0 Juan F Lam. [address] [facility], [address]th Floor, [place], [address], [place]. tel:[phone] Referring Provider: Sanjeev Barker, [address], [place], [address] . tel:[phone] Office/outpa tient Visit, Est [facility], [address], [place], [place], [address], [place] tel:[phone] SEC Arnoldo ECKERT Professional WIE (chief complaint) Allergic conjunctiviti s of both eyes 0 Waqar Pace. [address], [address], [place], [place], [address], [place]. tel:[phone] Referring Provider: Sanjeev Barker, [address], [place], [address] . tel:[phone] [facility], [address], [place], [place], [address], [place] tel:[phone] SEC Arnoldo ECKERT Professional 1 day s/p PCIOL (chief complaint) Post op visit 0 Waqar Pace. [address], [address], [place], [place], [address], [place]. tel:[phone] Referring Provider: Sanjeev Barker, [address], [place], [address] . tel:[phone] [facility], [address], [place], [place], [address], [place] tel:[phone] [facility] [place] No Information 0 Kegley Abelardo. [facility] [employer], [address], [place], [place], [address], . tel:[phone] Referring Provider: Sanjeev Barker, [address] [facility] [address], [place], [address] . tel:[phone] [facility], [address] [place], [place] [address] [address], [place], [place], [address], tel:[phone] [place] No Information 0 Annemarie Abelardo. [facility] [employer], [address], [place], [place], [address], [place]. tel:[phone] Referring Provider: Sanjeev Barker, [address] [facility] [address], [place], [address] . tel:[phone] [facility], [address] [place] [address] [address], [place], [place], [address], tel:[phone] SEC [place] Professional Cataract evaluation (chief complaint) Post op visitCombined forms of age-related cataract, bilateral 0 Kegley Abelardo. [facility] [employer], [address], [place], [place], [address], [place]. tel:[phone] Referring Provider: Sanjeev Barker, [address] [facility] [address], [place], [address] . tel:[phone] [facility], [facility] [address], [place], [place], [address], [place] tel:[phone] SEC [place] Professional Cataract evaluation (chief complaint) Post op visit 0-201 9 Kegley Abelardo. [facility] [employer], [address], [place], [place], [address], . tel:[phone] Referring Provider: Sanjeev Barker, [address] [facility] [address], [place], [address] . tel:[phone] [facility], [address], [place], [place], [address], [place] tel:[phone] SEC Rebekah [place] 1 wk Pterygium excision po (chief complaint) Post op visit 9 Annemarie Zhou. [facility] [employer], [address], [place], [place], [address], [place]. tel:[phone] Referring Provider: Sanjeev Barker, [address] [facility] [address], [place], [address] . tel:[phone] [facility], [address], [place], [place], [address], [place] tel:[phone] SEC [place] Pterygium excision (chief complaint) Post op visit 0 9 Annemarie Zhou. [facility] [employer], [address], [place], [place], [address], [place]. tel:[phone] Referring Provider: Sanjeev Barker, [address] [facility] [address], [place], [address] . tel:[phone] [facility], [address], [place], [place], [address], [place] tel:[phone] [facility] [place] No Information 9 Annemarie Zhou. [facility] [employer], [address], [place], [place], [address], [place]. tel:[phone] Referring Provider: Sanjeev Barker, [address] [facility] [address], [place], [address] . tel:[phone] Office/outpa tient Visit, Est [facility], [address], [place], [place], [address], [place] tel:[phone] SEC [place] Professional pterygium and cataract (chief complaint) Peripheral pterygium, progressive, left eyeCombined forms of age-related cataract, bilateral Oct- 9 Annemarie Zhou. [address], [address], [place], [place], [address], [place]. tel:[phone] Referring Provider: Sanjeev Barker, [address] [facility] [address], [place], [address] . tel:[phone] [facility], [address], [place], [place], [address], [place] [phone] SEC [place] Professional Complete Exam (chief complaint) Age-related nuclear cataract, bilateralPter ygium of left eyeAllergic conjunctiviti s of both eyes 9 Waqar Pace. [address] [facility], [facility] [address], [place], [place], [address], [place]. tel:[phone] Referring Provider: Sanjeev Barker, [address] [facility] [address], [place], [address] . tel:[phone] [facility], [address], [place], [place], [address], [place] [phone] SEC [place] No Information 9 Asha JOSE JUAN Destiny. [address] [facility], [facility] [address], [place], [address], . tel:[phone] Family History Family Member Type Diagnosis Age At Onset Problem (finding) Family history of Diabe prakash mellitus Payers Payer name Insurance type Covered alliance party ID Authoriza tion(s) AAR Medicare Complete [place] [id number] [place] [id number] Social History Type Description Quantity Date Captured [...]
--- OUTSIDE RECORDS SUMMARY | 2024-11-01 13:38 | XMS_ITS | Encounter Summary ---
Author Organization [facility] Address [address] [place] [address] Phone Care Team Providers Care Air Crew Officer Name Role Phone Carlos Moran MD Primary Care Provider [phone] Mark De Los Santos MD Unavailable Unavailable Rand Tsang MD Unavailable [phone] Provider, None Primary Care Provider UnavailSohail Kc MD Primary Care Provider [phone] Carlos Moran MD Primary Care Provider [phone] Sohail Gould MD Primary Care Provider [phone] Vicki Salmeron APRN Primary Care Provider [phone] Kim Benavidez APRN, [facility] Primary Care Provider + Reason for Visit * Reason Comments Medication Refill Encounter Details Date Type Department Care Team (Late st Contact Info) Description 03/21/2020 Refill [facility] - Primary Care - [place] [address] [place] [address] Carlos Moran MD [address] [place] [address] Medication Refill Social History Tobacco Use Types Packs/Day Years Used Date Smoking Tobacco: Former Cigarettes 1 25 1 961 - 1986 Smokeless Tobacco: Never Alcohol Use Standard Drinks/Week Comments No 0 (1 standard drink = 0.6 oz pur e alcohol) PHQ-2 Answer Date Recorded Total Score - Questions 1-9 0 03/1 07/2019 Sexually Active Control Partners Comments Yes Female [...] COVID-19? No / Unsure 03/13/2020 2:58 PM REGISTRATION REP documented as of this encounter Miscellaneous Notes * Telephone Encounter - Carlos Moran MD - 03/21/2020 10:53 AM REGISTRATION REP Refill request approved. STRATION REP * Telephone Encounter - Tavia Pablo [facility] - 03/21/2020 10:42 AM REGISTRATION REP Medication failed the protocol, provider to review [...] weeks ago Acute pain of left knee [facility] Carlos Moran MD 1 month ago Cellulitis of mouth [facility] [place] Carlos Moran MD 1 month ago Polyneuropathy associated with underlying disease (HCC) [facility] [place] Carlos Moran MD 4 months ago [facility]pertension, [facility] Pathak MD 8 months ago Urinary pain [facility] - Carlos Pathak MD Upcoming Appointments Future Appointments In 1 month Fox Shearer MD [facility] Medical [facility] - Neurology [facility] In 1 month Carlos Moran MD [facility], [place] POLISHER OPERATOR - Recent and Past Visits Recent Visits Date Type Provider Dept 02/28/20 Office Visit Carlos Moran, MD [facility] 02/18/20 Office Visit Carlos Moran, MD [facility] 02/05/20 Office Visit Carlos Moran, MD [facility] [address] 10/24/19 Office Visit Carlos Moran, MD [facility] [place] 07/13/19 Office Visit Carlos Moran, MD [facility] [place] 04/23/19 Office Visit Carlos Moran, MD [facility] [place] 02/12/19 [facility] recent visits within past 460 days with a meds authorizing provider and meeting all other requirements Future Appointments Date Type Provider Dept 04/24/20 Appointment Carlos Moran MD [facility] Showing future appointments within next 90 days with a meds authorizing provider and meeting all other requirements STRATION REP documented in this encounter Plan of Treatment Upcoming Encounters Date Type Department Care Team (Late st Contact Info) Description 11/12/2024 12:00 PM CDT Office Visit [facility] [address] [place] [address] Kim Benavidez, INFORMATION SYSTEMS PLANNER, VIRTUALIZATION ARCHITECT [address] [place] [address] documented as of this encounter Visit Diagnoses Not on filedocumented in this encounter Additional Health Concerns Assessment Noted Time PHQ-9 Depression Total Score: 0 07/13/19 10:00 AM CDT documented as of this encounter Care Teams Air Crew Officer Relationship Specialty Start Date End Date Carlos Moran MD [address] [place] [address] PCP - General Internal Medicine 01/28/15 04/21/20 Provider, None [place] PCP - General 04/22/20 08/04/20 Sohail Gould MD [address] [place] [address] PCP - General Family Medicine 08/05/20 10/06/20 Carlos Moran MD [address] [place] [address] PCP - General Internal Medicine 10/07/20 08/19/21 Sohail Gould MD [address] [place] [address] PCP - General Family Medicine 08/20/21 08/15/24 Vicki Salmeron APRN [address] [place] [address] PCP - General Advanced Practice Nurse 08/16/24 Kim Benavidez APRN, VIRTUALIZATION ARCHITECT [address] [place] [address] PCP - General Advanced Practice Nurse 09/28/24 Mark De Los Santos MD [address] [place] [address] Consulting Physician Urology 09/05/15 Rand Tsang MD [address] [place] [address] Consulting Physician Dermatopathology 01/16/18 documented as of this encounter
--- OUTSIDE RECORDS SUMMARY | 2024-11-01 13:38 | XMS_ITS | Clinical Summary ---
Author Organization [facility] [employer] Address [address] [place] [address] Care Team Providers Care Director Blood Bank Name Role Phone Carlos Moran MD Primary Care Provider [phone] Source Comments [facility] [employer],non-owned Affiliates and Associated Physician Practices is amultiple site organization consisting of ambulatory clinics and hospital sitesin [place], [place] and [place]. This disclosure is being madepursuant to the Care Everywhere program and may not contain all information available regarding this patient. 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 Gender Identity Not on file Sexual Orientation Not on file Last Filed Vital Signs Vital Sign Reading Time Taken Comments Blood Pressure 136/78 04/24/2017 10:32 AM MARKETING SERVICES MANAGER Pulse 78 04/24/2017 10:32 AM MARKETING SERVICES MANAGER Temperature 36.8 C (98.2 F) 04/24/2017 10:32 AM MARKETING SERVICES MANAGER Respiratory Rate - - Oxygen Saturation - - Inhaled Oxygen Concentration - - Weight 104.8 kg (231 lb) 04/24/2017 10:32 AM MARKETING SERVICES MANAGER Height 177.8 cm (5' 10) 04/24/2017 10:32 AM MARKETING SERVICES MANAGER Body Mass Index 33.15 04/24/2017 10:32 AM MARKETING SERVICES MANAGER Plan of Treatment Upcoming Encounters Date Type Department Care Team (Late st Contact Info) Description 12/20/2024 11:00 AM CDT Appointment [facility] [address] [address] Lisa Singh MD [address] [id number] Health Maintenance Due Date Last Done Comments [...] 2024 03/25/2021, 07/08/2020, 06/10/2020 DEPRESSION SCREENING 05/02/2024 MEDICARE AWV CALENDAR YEAR 2024 INFLUENZA VACCINE (Season Ended) 2024 02/10/2021, 03/19/2020, [...] Comments LIPID PROFILE STAT 04/13/2024 3:21 PM MARKETING SERVICES MANAGER from Last 3 Months or Most Recently Relevant to Health Maintenance Results * (ABNORMAL) LIPID PROFILE (04/13/2024 3:21 PM MARKETING SERVICES MANAGER) Cholesterol 173 <200 mg/dL 04/13/2024 3:48 PM MARKETING SERVICES MANAGER [facility] Triglycerides 179(H) <150 mg/dL 04/13/2024 3:48 PM MARKETING SERVICES MANAGER [facility] HDL Cholesterol 26(L) >40 mg/dL 4 3:48 PM MARKETING SERVICES MANAGER [facility] LDL Calculated 111 <130 mg/dL 04/13/2024 3:48 PM MARKETING SERVICES MANAGER [facility] VLDL Calculated 36(H) <=30 mg/dL 4 3:48 PM MARKETING SERVICES MANAGER [facility] Chol HDL Ratio 6.7(H) <4.5 04/13/2024 3:48 PM MARKETING SERVICES MANAGER [facility] LDL/HDL Ratio 4.3 <5.0 04/13/2024 3:48 PM MARKETING SERVICES MANAGER [facility] Blood BLOOD SPECIMEN / Unknown Venipuncture / Unknown 04/13/2024 3:21 PM MARKETING SERVICES MANAGER 04/13/2024 3:25 PM MARKETING SERVICES MANAGER [facility] - CHEMISTRY ORDERABLES Holly l Result [facility] [address] [place] [address] from Last 3 Months or Most Recently Relevant to Health Maintenance Insurance [employer] MANAGED MEDICARE ADV Care Teams Director Blood Bank Relationship Specialty Start Date End Date Carlos Moran MD PCP - General Internal Medicine 04/24/17
--- OUTSIDE RECORDS SUMMARY | 2024-11-01 13:38 | XMS_ITS | Clinical Summary ---
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 Name Role Phone Nicolas Jung MD Unavailable [phone] Louie Lomeli MD Unavailable [phone] Melchor Woodard MD Primary Care Provider [phone] Jairo Sparrow MD Unavailable [phone] Allergies Active Allergy Reactions Criticality Noted Date Comments Ceftriaxone Nausea only Low 09/23/2021 Xrbnvbc-Ngx-Epz Reductase Inhibitors Other (See comments) Low 01/26/2018 Generalized pain Medications losartan (COZAAR) 25 mg tablet Take 1 tablet (25 mg total) by mouth daily 07/29/19 23 Active levothyroxine (SYNTHROID) 50 mcg tablet Take 1 tablet (50 mcg total) by mouth valance cutter before breakfast Active aspirin 81 mg enteric coated tablet Take 1 tablet (81 mg total) by mouth daily Not sure if he takes 30 tablet 11 09/02/19 24 Active gabapentin (NEURONTIN) 100 mg capsuleIndicati ons:Diabetic [...] doses total 90 tablet 1 09/20/19 24 Active amLODIPine (NORVASC) 10 mg tablet TAKE [...] 14 days 28 tablet 04/10/20 24 Active clopidogreL (PLAVIX) 75 mg tablet TAKE 1 TABLET (75 MG TOTAL) BY MOUTH DAILY. NEED TO SCHEDULE APPOINTMENT 60 tablet 06/25/19 25 Active ezetimibe (ZETIA) 10 mg tabletIndicatio ns:hyperlipidem ia TAKE 1 TABLET (10 MG TOTAL) BY MOUTH DAILY 30 tablet 11 06/27/19 25 026 Active empagliflozin (JARDIANCE) 25 mg tabletIndicatio ns:type 2 diabetes mellitus Take 1 tablet (25 mg total) by mouth daily Active oxyBUTYnin XL (DITROPAN-XL) 10 mg 24 hr tablet Take 1 tablet (10 mg total) by mouth daily Active vibegron (Gemtesa) 75 mg tablet Take 75 mg by mouth daily Active triamcinolone (KENALOG) 0.025 % cream 07/17/19 25 Active HYDROcodone-eve taminophen (NORCO) 7.5-325 mg per tablet Take 1 tablet by mouth every 4 (four) hours as needed for pain 07/06/19 25 Active metoprolol XL (TOPROL-XL) 25 mg extended release tablet Take 1 tablet (25 mg total) by mouth daily 30 tablet 11 08/04/19 25 026 Active calcium carbonate-vitam in D3 1,250mg (500mg elemental) - 5 mcg (200 units) per tablet Take 1 tablet by mouth daily 30 tablet 1 08/04/19 25 026 Active famotidine (PEPCID) 20 mg tablet Take 1 tablet (20 mg total) by mouth daily 30 tablet 1 08/03/19 25 026 Active predniSONE (DELTASONE) 5 mg tabletIndicatio ns:Gouty arthritis of left foot Take 1 tablet [...] will be given 30 tablet 08/24/19 25 Active traMADoL (ULTRAM) 50 mg tabletIndicatio ns:Gouty arthritis of left foot Take 1 tablet (50 mg total) by mouth every 8 (eight) hours as needed for pain P.r.n. pain not relieved by prednisone alone. Take 500 mg of acetaminophen with each dose. Take with food. Collaborating physician Jordan Villanueva MD 15 tablet 09/18/19 25 Active azithromycin (ZITHROMAX) 250 mg tablet Take 2 tablets (500 mg total) by mouth daily for 1 day, THEN 1 tablet (250 mg total) daily for 4 days. 6 tablet 09/28/19 25 025 Active Problems Problem Noted Date Diagnosed Date [...] 06/01/2022 Assessment & Plan (06/01/2022 3:29 PM PHYSICALLY IMPAIRED TEACHER): Worsening, patient reports symptoms are worse 1st thing in the morning, has to clean eyes before can open; fewer symptoms throughout the day; most consistent with allergic conjunctivitis Start azelastine eyedrops Diabetic neuropathy, type II diabetes mellitus 0 05/27/2022 LALITO (acute kidney injury) 03/10/2022 Obesity (BMI 30-39.9) 03/10/2022 Other chest pain 03/09/2022 Assessment & Plan (06/01/2022 3:28 PM PHYSICALLY IMPAIRED TEACHER): Continues to have episodes of chest pain, started in nature; can radiate to right-side of chest Patient reports some relief with ASA; has nitroglycerin Will continue to monitor; if negative cardio workup, consider esophageal spasms of source of pain Assessment & Plan (04/06/2022 11:47 AM PHYSICALLY IMPAIRED TEACHER): Reports pressure-like chest pain today, worsening fatigue [...] (12/29/2021): Added automatically from request for surgery [id number] Leukocytosis 12/19/2021 UTI (urinary tract infection) 12/19/2021 Coronary artery disease 12/18/2021 Overview (12/18/2021): Added automatically from request for surgery [id number] Assessment & Plan (03/07/2022 9:41 AM PHYSICALLY IMPAIRED TEACHER): Not well controlled, patient had stopped taking all medications, had elevated blood pressures today Encouraged patient to continue medications as prescribed Continue Brilinta 90 mg b.i.d., Zetia 10 mg daily Hypertensive crisis 12/16/2021 Assessment & Plan (12/17/2021 12:13 PM CDT): Present on admission, received Labetalol iv, currently resolved NSTEMI (non-ST elevated myocardial infarction) 0 12/16/2021 Overview (12/17/2021): Added automatically from request for surgery [id number] Assessment & Plan (01/10/2022 9:21 PM CDT): [...] Nasal saline spray (Simply saline, Little Remedies, [place], [place]) 2 second sprays or 2 squeezes into [...] (11/18/2020): Added automatically from request for surgery [id number] Assessment & Plan (03/20/2021 4:30 PM PHYSICALLY IMPAIRED TEACHER): Stable, patient waiting on improved A1c for [...] (11/18/2020): Added automatically from request for surgery [id number] Scar of vermilion border of upper lip 07/04/2020 Overview (07/04/2020): Referral to plastic surgery for evaluation and possible affects scar tissue Cicatrix 07/04/2020 Tension headache 06/30/2020 Assessment & Plan (06/25/2021 10:33 AM PHYSICALLY IMPAIRED TEACHER): Patient has recurrent left-sided tension headaches; likely secondary to pressure on muscles from lipoma Assessment & Plan (06/09/2021 1:59 PM PHYSICALLY IMPAIRED TEACHER): Patient has headache for the last 4-6 [...] nostril Assessment & Plan (06/30/2020 12:31 PM PHYSICALLY IMPAIRED TEACHER): Patient has severe left sided headache; reports worsened with looking down or leaning back in bed; may be related to sinuses vs tension type headache -given congestion may consider sinus pressure and will refer to ENT Chronic midline low back pain without sciatica 0 06/30/2020 Assessment & Plan (06/30/2020 12:33 PM PHYSICALLY IMPAIRED TEACHER): Not well controlled; likely worsened due to poor core strength; encouraged weight loss to reduce strain on lower back (has severe central adiposity) Will give patient core exercises to strengthen low back and abodmen Lipoma of neck 06/25/2020 Assessment & Plan (06/25/2021 10:32 AM PHYSICALLY IMPAIRED TEACHER): Not well controlled, patient has left-sided tension style headaches, S with noted changing position of head due to size of lipoma Patient benefit from surgical removal to help improve overall posture as well as potentially improved tension headaches Assessment & Plan (05/14/2021 1:29 PM PHYSICALLY IMPAIRED TEACHER): Patient has large lipoma on back left-sided neck; reports left-sided headaches, which may be contributed by lipoma putting pressure on muscles sugar causing tension headaches Referral to Plastic surgery for removal Assessment & Plan (03/20/2021 4:29 PM PHYSICALLY IMPAIRED TEACHER): Stable, Impacts patient ability to turn had; will continue monitor refer to surgery when appropriate Primary osteoarthritis of left knee 05/08/2020 Assessment & Plan (11/17/2021 3:53 PM CDT): Continues to have significant pain, has some symptom improvement, but limited range of motion and pain with movement Recent steroid injection Follow-up with orthopedics Assessment & Plan (04/21/2021 2:52 PM PHYSICALLY IMPAIRED TEACHER): Stable, continues with physical therapy which is [...] monitor Assessment & Plan (05/14/2021 1:29 PM PHYSICALLY IMPAIRED TEACHER): Improving, patient has walked about 12 lb since last visit; encouraged continued dietary changes, decreasing in take through portion control as well as lowering carbohydrate intake Encourage daily activity of 30 minutes of moderate intensity aerobic exercise daily Assessment & Plan (03/20/2021 4:29 PM PHYSICALLY IMPAIRED TEACHER): Weight is stable, no significant change; patient [...] week Assessment & Plan (05/05/2020 3:33 PM PHYSICALLY IMPAIRED TEACHER): Not well controlled, patient reports weight loss [...] daily Assessment & Plan (06/25/2021 10:31 AM PHYSICALLY IMPAIRED TEACHER): Stable, unclear control, patient reports inconsistent medications use Continue levothyroxine 50 mcg daily, check TSH today Assessment & Plan (04/21/2021 2:52 PM PHYSICALLY IMPAIRED TEACHER): Stable, well controlled; continue levothyroxine 50 mcg daily Assessment & Plan (03/20/2021 4:28 PM PHYSICALLY IMPAIRED TEACHER): Stable, well controlled; continue levothyroxine 50 mcg daily Assessment & Plan (09/24/2020 3:00 PM CDT): Recheck TSH today as previous TSH was mildly elevated, is still elevated will adjust levothyroxine given patient has complaints of generalized fatigue Assessment & Plan (06/16/2020 9:09 AM PHYSICALLY IMPAIRED TEACHER): Will recheck thyroid now that has been on medication for ~6 weeks Assessment & Plan (05/05/2020 3:36 PM PHYSICALLY IMPAIRED TEACHER): Mild elevation of TSH, patient has multiple symptoms including inability to lose weight, chronic fatigue and chronic tiredness Will start at low dose levothyroxine 25 mcg, will recheck TSH in approximately 6 weeks Arthritis 03/24/2020 DM2 (diabetes mellitus, type 2) 03/24/2020 Assessment & Plan (06/01/2022 3:30 PM PHYSICALLY IMPAIRED TEACHER): Not well controlled, A1c has always been [...] diet Assessment & Plan (06/25/2021 10:31 AM PHYSICALLY IMPAIRED TEACHER): Stable, improving; patient A1c has been down trending to 7.5 last time, recheck A1c today Continue metformin XR 1000 mg daily Assessment & Plan (05/14/2021 1:28 PM PHYSICALLY IMPAIRED TEACHER): Stable, improving; last A1c was decreasing to 7.5 Encouraged patient to continue with low-carbohydrate diet; encourage education dietary changes as well as regular exercise Continue metformin 1000 mg daily Assessment & Plan (04/21/2021 2:52 PM PHYSICALLY IMPAIRED TEACHER): Stable, improving; patient reports he has been working on decreasing carbohydrates Has a decreased appetite well on Rybelsuswith minimal side effects Continue metformin 1000 mg daily with breakfast, Rybelsus 7 mg prior to breakfast Continue to monitor encourage continued decreased carbohydrate diet Recheck labs at follow-up appointment Assessment & Plan (03/20/2021 4:28 PM PHYSICALLY IMPAIRED TEACHER): Stable, well controlled, improving Patient reports improved [...] diet Assessment & Plan (05/05/2020 3:32 PM PHYSICALLY IMPAIRED TEACHER): Not well controlled, A1c is 7.7 today [...] strength Assessment & Plan (03/26/2020 12:24 PM PHYSICALLY IMPAIRED TEACHER): Will check blood sugars and A1c to evaluate for control of diabetes on metformin Hyperlipidemia 03/24/2020 Assessment & Plan (12/17/2021 12:16 PM CDT): Pt is not on a statin due to intolerance LDL is 107. Started on Zetia per cardiology. Assessment & Plan (10/13/2021 2:34 PM CDT): Not well controlled, encouraged continued dietary changes and weight loss Assessment & Plan (05/14/2021 1:28 PM PHYSICALLY IMPAIRED TEACHER): Not well controlled, patient cannot tolerate statins; encouraged dietary changes order reduce cholesterol through low-fat high-fiber diet Assessment & Plan (05/05/2020 3:35 PM PHYSICALLY IMPAIRED TEACHER): Poorly controlled patient has elevated total and LDL cholesterol with knee depressed HDL cholesterol Triglycerides are also elevated at 254 Patient is unable to tolerate statin therapy due to muscular pain of thigh muscles Will encouraged diet and exercise as ways to maintain and modify cholesterol level Hypertension, essential 03/24/2020 Assessment & Plan (06/01/2022 3:30 PM PHYSICALLY IMPAIRED TEACHER): Stable, improving; blood pressure today in clinic was normal; patient reports home measurements are improving Continue amlodipine 10 mg daily, hydralazine 25 mg b.i.d., metoprolol 100 mg daily Losartan was previously on medication list, but not part of pharmacy was Given blood pressures appropriate, will continue to monitor, can rehab losartan if blood pressure increases Assessment & Plan (04/06/2022 11:47 AM PHYSICALLY IMPAIRED TEACHER): Stable, improving; most recent blood pressure was at target Continue losartan 100 mg daily, metoprolol 100 mg daily, amlodipine 10 mg daily Assessment & Plan (03/07/2022 9:40 AM PHYSICALLY IMPAIRED TEACHER): Not well controlled; patient reports that he [...] daily Assessment & Plan (06/25/2021 10:30 AM PHYSICALLY IMPAIRED TEACHER): Not well controlled; blood pressure is elevated this morning prior to surgery, elevated again in office Given blood pressure was just normal on 06/09/2021, will increase lisinopril to 40 mg daily Encouraged patient to consistently take medications, with no missed or skipped doses Assessment & Plan (05/14/2021 1:27 PM PHYSICALLY IMPAIRED TEACHER): Not well controlled, blood pressure remains elevated; patient has been inconsistent with taking medications Will continue lisinopril 20 mg, follow-up at next appointment; if blood pressure still is elevated will adjust medication Assessment & Plan (03/20/2021 4:27 PM PHYSICALLY IMPAIRED TEACHER): Stable well controlled; blood pressure a target; [...] needed Assessment & Plan (05/05/2020 3:34 PM PHYSICALLY IMPAIRED TEACHER): Well controlled, patient's blood pressure is at target today Will continue with current therapies and continue to monitor patient Assessment & Plan (03/26/2020 12:24 PM PHYSICALLY IMPAIRED TEACHER): Stable well controlled, continue present management Post-traumatic [...] arthroscopy Assessment & Plan (06/16/2020 9:09 AM PHYSICALLY IMPAIRED TEACHER): Not well controlled, had relief with cortisone injection, but now has worsening pain; relief last for about 3-4 weeks -has some instability of patella, able to 'adjust' patella to relieve pain and improve ROM Assessment & Plan (05/05/2020 3:34 PM PHYSICALLY IMPAIRED TEACHER): Stable, not controlled Patient is not able to consistently place weight on the Patient to follow-up with orthopedics further evaluation, based on recommendations may refer to physical therapy Assessment & Plan (03/26/2020 12:24 PM PHYSICALLY IMPAIRED TEACHER): Will start treatment with diclofenac cream, and use of the triamcinolone as necessary If needed will refer to physical therapy for further improvement in pain Polyneuropathy associated with underlying diseas e ([facility] 10/24/2019 Assessment & Plan (04/06/2022 11:44 AM PHYSICALLY IMPAIRED TEACHER): Continues to have numbness and weakness in bilateral legs; patient scheduled nerve conduction study Continue gabapentin 100 mg TID Continue with exercise, and strength training; noted to have decreased strength in hip flexors; normal with knee -if EMG is normal, consider CK or evaluation of polymyalgia or polymysitis Assessment & Plan (05/05/2020 3:34 PM PHYSICALLY IMPAIRED TEACHER): Patient has episodes of decreased balance due [...] management Assessment & Plan (06/25/2021 10:32 AM PHYSICALLY IMPAIRED TEACHER): Not well controlled, patient continues to have frequent nighttime urination; encouraged patient to continue follow-up with Urology and reschedule surgery Continue myrbetriq 50 mg daily Assessment & Plan (03/20/2021 4:30 PM PHYSICALLY IMPAIRED TEACHER): Patient continues to have increased urinary frequency, [...] Encounters Date Type Department Care Team Description 10/01/2024 Orders Only [facility] Operating Room [address] [place] [id number] Jayshree Hopkins MD Snoring (Primary Dx); Type 2 diabetes mellitus with other specified complication, without long-term current use of insulin (HCC) 09/26/2024 11:35 PM CDT - 09/27/2024 12:07 AM CDT Emergency [facility] Emergency Department [address] [place] [address] Sohan Bueno MD Bronchitis (Primary Dx); Acute cough; Dysphagia, unspecified type Discharge Disposition: Left Against Medical Advice 09/17/2024 11:51 AM CDT - 09/17/2024 12:39 PM CDT Emergency [facility] Emergency Department [address] [place] [address] Gouty arthritis of left foot (Primary Dx) Discharge Disposition: Discharge to home or self care 08/13/2024 Orders Only [facility] [address] [place] [address] [address] [address] Effie Avelar NP Dizziness and giddiness (Primary Dx) 08/13/2024 Telephone [facility] [address] [place] [address] [address] [place] [id number] Jairo Sparrow MD 08/10/2024 11:13 AM CDT - 08/10/2024 1:21 PM CDT [facility] Emergency Department [address] [place] [address] Gouty arthritis of left foot (Primary Dx) Discharge Disposition: Discharge to home or self care 08/09/2024 Documentation [facility] Case Management [address] [place] [address] Rodriguez Goldstein RN 07/30/2024 2:40 PM CDT - 08/02/2024 4:22 PM CDT Hospital Encounter [facility] Acute Medicine [address] [place] [address] Krystal Araujo MD Singh, Arjun, MD Dizziness [...] doctor or pharmacy Sometimes 01/17/2024 [facility] Utilities Answer Date Recorded In the past 12 months has e [employer], gas, oil, or water [employer] threatened to shut off services in your [...] attend chur ch or presybeterian services? Never 07/31/2024 Do you belong to any clubs o r organizations such as yazidism groups, unions, fraternal or athletic groups, or [...] any time in the past 12 m [facility], were you homeless or living in a correction (including now)? No 07/31/2024 Personal Safety Answer Date Recorded Have you ever been in or are you currently in a harmful physical or emotional relationship or is someone making you feel afraid or unsafe? Denies 09/26/2024 Education Answer Date Recorded What is the highest level of school you have completed or the highest degree you have received? Some college, no degree 08/29/2023 Sex and Gender Information Value Date Recorded Sex Assigned at Not on file Legal Sex Male 12:23 AM PHYSICALLY IMPAIRED TEACHER Gender Identity Not on file Sexual Orientation Not on file Obstetrics History Last Filed Vital Signs Vital Sign Reading Time Taken Comments Blood Pressure 138/67 09/26/2024 4:13 PM CDT Pulse 69 09/26/2024 4:13 PM CDT Temperature 36.7 C (98.1 F) 09/26/2024 4:13 PM CDT Respiratory Rate 19 09/26/2024 4:13 PM CDT Oxygen Saturation 93% 09/26/2024 4:13 PM CDT Inhaled Oxygen Concentration - - Weight 113.4 kg (250 lb) 09/26/2024 4:13 PM CDT Height 177.8 cm (5' 10) 09/26/2024 4:13 PM CDT Body Mass Index 35.87 09/26/2024 4:13 PM CDT Plan of Treatment Health Maintenance [...] 08/02, 06/10/2023, Additional history exists Influenza Vaccine (#1) 2024 , 03/19/2020, 03/18/2020, Additional history exists Lipid Panel 04/13/2025 04/13/2024, 04/12/2023, 02/04/2023, Additional history exists Fall Risk Assessment 08/02/2025 08/02/2024, 01/05/2022, 10/07/2021, Additional history exists eGFR 09/26/2025 09/26/2024, 07/31, 08/02/2024, Additional history exists DTaP/Tdap/Td Vaccine (3 - Td or Tdap) 02/12/2030 02/13/2020, 12/11/2015 Pneumococcal vaccine 65+ Completed 09/27/2017, 03/02 Zoster Vaccine Completed 03/19/2020, 11/2018, 03/27/2018 Prostate Cancer Screening-PSA Discontinued 10/28/2021 Medical Devices Implanted Type Area Neurology Teacher Device Identifier Shelf Expiration Date Model / Serial / Lot [employer] Daysi Synergy Xd Monorail 3.5mm 12mm 144cm Delivery System 1 Access [id number] - [id number] Implanted:Qty: 1 on 08/29/2023 by Louie Lomeli MD at [facility] Stent [employer] 10/19/2024 [id number] / / [id number] [employer] Stent Coronary De Rx Cocr Xience Skypoint [id number] - [id number] Implanted:Qty: 1 on 12/17/2021 by Louie Lomeli MD at [facility] [employer] 08/24/2023 [id number] [employer] Stent Coronary De Rx Cocr Xience Skypoint [id number] - [id number] Implanted:Qty: 1 on 12/17/2021 by Louie Lomeli MD at [facility] [employer] 08/28/2023 [id number] [employer] Daysi Synergy 3mm 16mm 144cm Radiopaque 1 Access Port Inflation Lumen [id number] - [id number] Implanted:Qty: 1 on 12/22/2021 by Louie Lomeli MD at [facility] [employer] Daysi 09/04/2022 [id number] / / [id number] [employer] Angio-Seal Vip 6fr Closere Device [id number] - [id number] Implanted:Qty: 1 on 12/22/2021 by Louie Lomeli MD at [facility] [employer] 09/29/2022 [id number] / / [id number] Procedures Procedure Name Priority Date/Time Associated Diagnosis Comments XR CHEST 1 VIEW ED 09/26/2024 8:14 PM CDT EGFR STAT 09/26/2024 4:20 PM CDT DIFFERENTIAL AUTO STAT 09/26/2024 4:2 0 PM CDT COMPREHENSIVE METABOLIC PANEL STAT 09/26/2024 4:20 PM CDT CBC WITH AUTO DIFFERENTIAL STAT 09/26/2024 4:20 PM CDT EGFR STAT 08/10/2024 11:58 AM CDT DIFFERENTIAL [...] DEVICE Routine 08/02/2024 1 :52 AM CDT HEMOGLOBIN A1C Routine 08/30/2023 2:23 AM [...] Recently Relevant to Health Maintenance Results * XR Chest 1 Vw Portable (09/26/2024 8:14 PM CDT) Anatomical Region Laterality Modality Body, Chest N/A Computed Radiogr aphy 09/26/2024 10:3 4 PM CDT Narrative 09/26/2024 10:35 PM CDT EXAM DESCRIPTION: XR CHEST 1 VIEW REASON FOR STUDY: cough Pt to triage for Cough, difficulty swallowing for 1 week. Pt states he had a chest x ray this morning and his PCP told him to come in due to pneumonia. TECHNIQUE: Single frontal radiographic view of the chest was acquired. COMPARISON: 07/30/2024 FINDINGS: LUNGS/PLEURA: There is no evidence of focal pulmonary infiltrate. There is no evidence of pneumothorax. There is no evidence of significant pleural effusion. HEART/MEDIASTINUM: The heart size is normal. There are normal mediastinal and hilar contours. HARDWARE/LINES/TUBES: None in the chest. BONES: No acute findings. OTHER: No other significant finding. IMPRESSION: No acute cardiopulmonary abnormality. THIS IS AN ELECTRONICALLY VERIFIED FINAL REPORT 09/26/2024 10:35 PM - Electronically signed by Americo Lopez M.D. RW: ANDRADE Report ID: [id number] Reading Location: [id number] Procedure Note Americo Lopez MD - 09/26/2024 EXAM DESCRIPTION: XR CHEST 1 VIEW REASON FOR STUDY: cough Pt to triage for Cough, difficulty swallowing for 1 week. Pt states he hada chest x ray this morning and his PCP told him to come in due to pneumonia. TECHNIQUE: Single frontal radiographic view of the chest was acquired. COMPARISON: 07/30/2024 FINDINGS: LUNGS/PLEURA: There is no evidence of focal pulmonary infiltrate. Thereis no evidence of pneumothorax. There is no evidence of significant pleural effusion. HEART/MEDIASTINUM: The heart size is normal. There are normal mediastinaland hilar contours. HARDWARE/LINES/TUBES: None in the chest. BONES: No acute findings. OTHER: No other significant finding. IMPRESSION: No acute cardiopulmonary abnormality. THIS IS AN ELECTRONICALLY VERIFIED FINAL REPORT 09/26/2024 10:35 PM - Electronically signed by Americo Lopez M.D. RW: ANDRADE Report ID: [id number] Reading Location: [id number] Sohan Bueno MD IMG XR PROCEDURES Final Resul t * (ABNORMAL) eGFR (09/26/2024 4:20 PM CDT) eGFR 45(L) >=60 mL/min/1. 73 m2 Comment: Interpretive Data [...] interpretive data was last reviewed 2021. Blood 09/26/2024 4:20 PM CDT 09/26/2024 4:36 PM CDT Jordan Villanueva MD LAB BLOOD ORDERABLES Final Result [facility] [address] [facility] [place] [address] * (ABNORMAL) Differential, auto (09/26/2024 4:20 PM CDT) Neutrophil abs 13.52(H) 1.50 - 6.50 K/cumm Imm gran abs 0.29(H) 0.00 - 0.10 K/cumm [facility] ([place]) Lymphocyte abs 1.06 0.80 - 3.30 K/cumm [facility] ([place]) Monocyte abs 1.19(H) 0.20 - 0.80 K/cumm [facility] ([place]) Eosinophil abs 0.03 0.00 - 0.50 K/cumm [facility] ([place]) Basophil abs 0.03 0.00 - 0.10 K/cumm [facility] ([place]) Neutrophil pct 83.8 % [facility] ([place]) Comment: [...] was last revised on 2017. Lymphocyte pct 6.6 % [facility] ([place]) Comment: [...] was last revised on 2017. Basophil pct 0.2 % [facility] ([facility] ELENA) Comment: Interpretive Data Percent cell count reference ranges are not reported, since discordance with absolute values may lead to misinterpretation of CBC data. Current Interpretive Data was last revised on 2017. Blood 09/26/2024 4:20 PM CDT 09/26/2024 4:36 PM CDT Jordan Villanueva MD LAB BLOOD ORDERABLES Final Result JULIETA GUERRERO ([place]) 1 [facility] [place] [address] * (ABNORMAL) CBC with auto differential (09/26/2024 4:20 PM CDT) WBC 16.12(H) 3.80 - 9.90 K/cumm Hgb 16.0 13.0 - 17.5 g/dL JULIETA GUERRERO ([place]) Hct 48.7 38.9 - 50.3 % JULIETA GU[facility] ([place]) Plt 192 150 - 400 K/cumm [facility] ([place]) MPV 10.2 9.1 - 12.3 fL [facility] ([place]) RBC 5.33 4.30 - 5.80 M/cumm [facility] ([place]) MCV 91.4 81.3 - 96.4 fL [facility] ([place]) MCH 30.0 27.1 - 33.3 pg [facility] ([place]) MCHC 32.9 32.3 - 35.7 g/dL [facility] ([place]) RDW CV 13.5 11.1 - 14.9 % [facility] ([place]) RDW SD 45.6 35.7 - 48.1 fL [facility] ([place]) NRBC abs 0.00 0.00 - 0.01 K/cumm [facility] ([place]) Blood 09/26/2024 4:20 PM CDT 09/26/2024 4:36 PM CDT us Jordan Villanueva MD LAB BLOOD ORDERABLES Final Result [facility] ([place]) 1 [facility] Department [place] [address] * (ABNORMAL) Comprehensive metabolic panel (09/26/2024 4:20 PM CDT) Sodium 141 135 - 145 mmol/L Potassium, pl 3.2(L) 3.3 - 4.9 mmol/L [facility] ([place]) Chloride 100 97 - 110 mmol/L [facility] ([place]) CO2 24 22 - 32 mmol/L [facility] ([place]) Anion gap 17(H) 2 - 15 mmol/L [facility] ([place]) BUN 39(H) 6 - 25 mg/dL [facility] ([place]) Creatinine 1.61(H) 0.80 - 1.30 mg/dL [facility] ([place]) Glucose 217(H) 70 - 199 mg/dL [facility] ([place]) Comment: Interpretive Data [...] interpretive data was last revised 2022. Calcium 8.9 8.5 - 10.3 mg/dL [facility] ([place]) Bilirubin, total 0.3 0.1 - 1.2 mg/dL [facility] ([place]) Protein, pl 6.5 6.5 - 8.5 g/dL [facility] ([place]) Albumin 3.7 3.5 - 5.0 g/dL [facility] ([place]) Alk phos 94 40 - 130 Units/L [facility] ([place]) ALT 12 7 - 55 Units/L [facility] ([place]) AST 14 10 - 50 Units/L [facility] ([place]) Blood 09/26/2024 4:20 PM CDT 09/26/2024 4:36 PM CDT us Jordan Villanueva MD LAB BLOOD ORDERABLES Final Result [facility] ([place]) 1 [facility] Department of Laboratories [place], [place] [address] * (ABNORMAL) eGFR (08/10/2024 11:58 AM CDT) [...] Inclusion of Race in Diagnosing Kidney Disease, FLAQUITASChristy 2020). The CKD-EPI equation should not be used for patients with unstable renal function and has not been validated in children and those over 70. Current interpretive data was last reviewed 2021. Blood 08/10/2024 11:5 8 AM CDT 08/10/2024 12:00 PM CDT us Stanley RIZVI LAB BLOOD ORDERABLES Final R esult [facility] ([place]) 1 [facility] [place] [address] * (ABNORMAL) Differential, auto (08/10/2024 11:58 AM [...] R esult [facility] ([place]) 1 [facility] [place] [address] * (ABNORMAL) CBC with auto differential (08/10/2024 [...] 14.2 11.1 - 14.9 % [facility] ([place]) RDW SD 47.7 35.7 - 48.1 fL JULIETA GUERRERO ([place]) NRBC abs 0.00 0.00 - 0.01 K/cumm JULIETA GUERRERO ([place]) Blood 08/10/2024 11:5 8 AM CDT 08/10/2024 12:00 PM CDT Stanley RIZVI LAB BLOOD ORDERABLES Final R esult JULIETA GUERRERO ([place]) 1 [facility] [place] [address] * Erythrocyte sedimentation rate (08/10/2024 11:58 AM CDT) Erythrocyte sedimentation rate 11 1 - 20 mm/hr Blood 08/10/2024 11:5 8 AM CDT 08/10/2024 12:00 PM CDT Stanley RIZVI LAB BLOOD ORDERABLES Final R esult Performing Organization Address City/[facility]/ZIP Co de Phone Number JULIETA GUERRERO ([place]) 1 [facility] [place] [address] * (ABNORMAL) CRP (acute phase) (08/10/2024 11:58 AM CDT) CRP 19.1(H) <=10.0 mg/L Blood 08/10/2024 11:5 8 AM CDT 08/10/2024 12:00 PM CDT Stanley RIZVI LAB BLOOD ORDERABLES Final R esult Performing Organization Address City/[facility]/ZIP Co de Phone Number JULIETA GUERRERO ([place]) 1 [facility] [place] [address] * (ABNORMAL) Uric acid (08/10/2024 11:58 AM CDT) Uric acid 8.8(H) 3.0 - 8.0 mg/dL Blood 08/10/2024 11:5 8 AM CDT 08/10/2024 12:00 PM CDT Stanley RIZVI LAB BLOOD ORDERABLES Final R esult [facility] ([place]) 1 [facility] [place] [address] * (ABNORMAL) Comprehensive metabolic panel (08/10/2024 11:58 [...] E[place]) Glucose 154 70 - 199 mg/dL [facility] ([place]) Comment: Interpretive Data Fasting [...] E[place]NA) ALT 13 7 - 55 Units/L [facility] ([place]) AST 13 10 - 50 Units/L [facility] ([place]) Blood 08/10/2024 11:5 8 AM CDT 08/10/2024 12:00 PM CDT us Stanley RIZVI LAB BLOOD ORDERABLES Final R esult JULIETA GUERERRO ([place]) 1 [facility] [place] [address] * XR Foot Left 3 or More Views (08/10/2024 10:10 AM CDT) Anatomical Region Laterality Modality Lower Extremities, Foot Left Computed Radiography 08/10/2024 10:5 2 AM CDT Narrative 08/10/2024 10:58 AM CDT EXAM DESCRIPTION: XR FOOT LEFT 3 OR MORE VIEWS REASON FOR STUDY: pain to foot Pt to ED via [facility]. Per Pt he has had left [...] Lawrence Clark M.D. MZ: INGRID Report ID: [id number] Reading Location: [id number] Procedure Note Lawrence Clark MD - 08/10/2024 EXAM DESCRIPTION: XR FOOT LEFT 3 OR MORE VIEWS REASON FOR STUDY: pain to foot Pt to ED via [facility]. Per Pt he has had left [...] Lawrence Clark M.D. MZ: INGRID Report ID: [id number] Reading Location: [place] [address] Xavi Murray MD IMG XR PROCEDURES F inal Result * POCT glucose (08/02/2024 11:54 AM CDT) Glucose, POC 163 70 - 199 mg/dL Blood 08/02/2024 11:5 4 AM CDT 08/02/2024 11:54 AM CDT Corey Russo MD LAB POCT ORDERABLES - DEVICE Fin al Result Performing Organization Address [facility] Co de Phone Number NAYANJUNAID GUERRERO ([place]) 1 [facility] [place] [address] * POCT glucose (08/02/2024 8:05 AM CDT) Glucose, POC 123 70 - 199 mg/dL Blood 08/02/2024 8:05 AM CDT 08/02/2024 8:05 AM CDT Corey Russo MD LAB POCT ORDERABLES - DEVICE Fin al Result Performing Organization Address [facility] Co de Phone Number JULIETA GUERRERO ([place]) 1 [facility] [place] [address] * (ABNORMAL) eGFR (08/02/2024 4:04 AM CDT) Pathologist [facility] eGFR 52(L) >=60 mL/min/1. 73 m2 Comment: [...] LAB BLOOD ORDERABLES Fi nal Result JULIETA ChaneyBUFF[place]O GAP) 1 [facility] [place] [address] * (ABNORMAL) Differential, auto (08/02/2024 4:04 AM [...] BLOOD ORDERABLES Fi nal Result JULIETA YOLANDA ([place]) 1 [facility] [place] [address] * CBC with auto differential (08/02/2024 4:04 [...] MD LAB BLOOD ORDERABLES Fi nal Result [facility] ([place]) 1 [facility] [place] [address] * (ABNORMAL) Comprehensive metabolic panel (08/02/2024 4:04 AM CDT) Sodium 143 135 - 145 mmol/L Potassium, pl 3.4 3.3 - 4.9 mmol/L [facility] ([place]) Chloride 106 97 - 110 mmol/L [facility] ([place]) CO2 24 22 - 32 mmol/L [facility] ([place]) Anion gap 13 2 - 15 mmol/L [facility] ([place]) BUN 25 6 - 25 mg/dL [facility] ([place]) Creatinine 1.44(H) 0.80 - [...] ORDERABLES Fi nal Result Performing Organization Address City/[facility]/ZIP Co de Phone Number [facility] ([place]) 1 [facility] [place] [address] * POCT glucose (08/02/2024 1:52 AM CDT) Glucose, POC 130 70 - 199 mg/dL Blood 08/02/2024 1:52 AM CDT 08/02/2024 1:52 AM CDT us Corey Russo MD LAB POCT ORDERABLES - DEVICE Fin al Result Performing Organization Address City/[facility]/ZIP Co de Phone Number JULIETA GUERRERO ([place]) 1 [facility] [place] [address] * (ABNORMAL) Hemoglobin A1c (08/30/2023 2:23 AM CDT) Hgb A1C 6.3(H) 4.0 - 5.6 % Estimated Average Glucose 134 mg/dL JULIETA GUERRERO ([place]) Comment: The ADA recommends reporting an estimated Average Glucose (eAG) with all Hemoglobin A1c results using the equation derived from a study of 507 normal and diabetic adults. Minority populations were underrepresented and children were not included. (Diabetes Care 31:9234-2607, 2008). The eAG is not equivalent to a fasting glucose. Blood 08/30/2023 2:23 AM CDT 08/30/2023 12:50 PM CDT Destiny Devi NP LAB BLOOD ORDERABLES Final R esult Performing Organization Address [facility] Co de Phone Number JULIETA GUERRERO ([place]) 1 [facility] [place] [address] * (ABNORMAL) Lipid panel (08/28/2023 8:27 PM CDT) Pathologist [facility] Cholesterol 149 30 - 199 mg/dL Comment: [...] on 2017. Triglycerides 229(H) <=149 mg/dL [facility] ([place]) Comment: Interpretive Data Ages < [...] on 2017. Chol/HDL ratio 6 [facility] ([place]) Blood 08/28/2023 8:27 PM CDT 08/28/2023 10:13 PM CDT us Jesus Payan MD LAB BLOOD ORDERABLES Final Re sult [facility] 1 [facility] [place] [address] * PSA screen (10/28/2021 2:47 PM CDT) PSA-Total 3.15 <=5.40 ng/mL [facility] ([place]) Comment: Interpretive Data AGE SEX REFERENCE INTERVAL [...] last revised 21. Testing performed by: [facility], [address] [place] [address]., [id number] Blood 10/28/2021 2:47 PM CDT 10/28/2021 7:50 PM CDT us Sohail Gould MD LAB BLOOD ORDERABLES Holly l Result Performing Organization Address City/[facility]/ZIP Co de Phone Number [facility] ([place]) 1 [place] [address] * (ABNORMAL) Albumin Creatinine Ratio, Urine (10/28/2021 2:47 PM CDT) Albumin Ur 713.6 mg/L [facility] ([place]) Comment: Interpretive Data No reference range established. Current interpretive data was last revised 2018. Testing performed by: [facility], [address] [place] [address]., [id number] Creatinine Ur 343.1 mg/dL JULIETA GUERRERO ([place]) Comment: Interpretive Data No reference range established. Current interpretive data was last revised 2018. Testing performed by: [facility], [address] [place] [address]., [id number] Albumin Creatinine Ratio, Ur 208(H) 1 - 29 mg/g JULIETA GUERRERO ([place]) Comment:Testing performed by : [facility], [address] [place] [address]., [id number] Urine 10/28/2021 2:47 PM CDT 10/28/2021 9:10 PM CDT Sohail Gould MD LAB URINE ORDERABLES Holly l Result Performing Organization Address City/[facility]/ZIP Co de Phone Number JULIETA GUERRERO ([place]) 1 [facility] [place] [address] * Stool DNA - Cologuard (11/30/2020) Scribed Stool DNA - Cologuard Negative EXTERNAL LAB Stool Torri Provider LAB BODY FLUIDS AND STOOL S ORDERABLES Final Result Performing Organization Address City/[facility]/ZIP Co de Phone Number EXTERNAL LAB from Last 3 Months or Most Recently Relevant to Health Maintenance Insurance IDPA [facility] MEDICARE ADVANTAGE MTPA [facility] MEDICARE ADVANTAGE [id number] MEDICARE ADVANTAGE [facility] Address: [address] [address] [place] [address] [facility] MDCR HMO REF [facility] Address: [address] [address] [place] [address] IDPA Advance Directives For more information, please contact: [phone] * Full Code (Latest Code Status on [...] 8:46 PM 08/29/2023 4:46 PM Care Teams Brick Siding Applicator Relationship Specialty Start Date End Date Melchor Woodard MD PCP - General Family Practice 07/30/22 Nicolas Jung MD Surgeon Orthopedic Surgery 08/05/21 Louie Lomeli MD Consulting Physician Cardiology 12/23/21 Jairo Sparrow MD [address] [place] [address] [place] [address] Consulting Physician Neurology 12/14/22
--- OUTSIDE RECORDS SUMMARY | 2024-11-01 13:38 | XMS_ITS | Encounter Summary ---
Author Organization [facility] Healthcare Address [address] [place] [address] Care Team Providers Care Digital Account Executive Name Role Phone Nicolas Jung MD Unavailable [phone] Louie Lomeli MD Unavailable [phone] Melchor Woodard MD Primary Care Provider [phone] Jairo Sparrow MD Unavailable [phone] NavarreteMaria Eugenia quiñones [facility] Unavailable [phone] Encounter Details Date Type Department Care Team (Late st Contact Info) Description 06/02/2023 Telephone [facility] [address] [facility] [address] [place] [address] Jonathan Miranda MD [address] [place], [place] [id number] Social History Tobacco Use Types Packs/Day Years [...] week 02/04/2023 How often do you attend [facility] or congregational services? Never 02/04/2023 Do you belong to [...] or slept in a retirement (including now)? Yes 02/04/2023 Personal Safety Answer Date Recorded Have you ever been in or are you currently in a harmful physical or emotional relationship or is someone making you feel afraid or unsafe? 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 Gender Identity Not on file Sexual Orientation [...] COVID: Suspected 06/12/2024 06/12/2024 06/12/2024 4:34 PM KNOT PICKER CLOTH COVID: Suspected 07/30/2024 07/30/2024 07/30/2024 4:38 PM CDT documented as of this encounter Care Teams Digital Account Executive Relationship Specialty Start Date End Date Melchor Woodard MD PCP - General Family Practice 07/30/22 Nicolas Jung MD Surgeon Orthopedic Surgery 08/05/21 Louie Lomeli MD Consulting Physician Cardiology 12/23/21 Jairo Sparrow MD [address] [place] [address] [address] [facility] [place] [address] Consulting Physician Neurology 12/14/22 Maria Eugenai Navarrete, [address] [place] [address] Pharmacist Pharmacy 03/12/24 03/12/24 documented as of this encounter
--- OUTSIDE RECORDS SUMMARY | 2024-11-01 13:38 | XMS_ITS | Encounter Summary ---
Author Organization [facility] Healthcare Address [address] [place] [address] Care Team Providers Care Rn Float Name Role Phone Nicolas Jung MD Unavailable [phone] Louie Lomeli MD Unavailable [phone] Melchor Woodard MD Primary Care Provider [phone] Jairo Sparrow MD Unavailable [phone] Maria Eugenia Navarrete [facility] Unavailable [phone] Encounter Details Date Type Department Care Team (Late st Contact Info) Description 06/02/2023 Telephone [facility] [address] [place] [address] Jonathan Miranda MD [address] [place], [place] [id number] Social History Tobacco Use Types Packs/Day Years [...] How often do you attend chur or anabaptist services? Never 02/04/2023 Do you belong to any clubs o r organizations such as yazdanism groups, unions, fraternal or athletic groups, or [...] or slept in a correction (including now)? Yes 02/04/2023 Personal Safety Answer Date Recorded Have you ever been in or are you currently in a harmful physical or emotional relationship or is someone making you feel afraid or unsafe? 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 CLERK Gender Identity Not on file Sexual [...] COVID: Suspected 06/12/2024 06/12/2024 06/12/2024 4:34 PM TRAIN RESERVATION CLERK COVID: Suspected 07/30/2024 07/30/2024 07/30/2024 4:38 PM CDT documented as of this encounter Care Teams Rn Float Relationship Specialty Start Date End Date Melchor Woodard MD PCP - General Family Practice 07/30/22 Nicolas Jung MD Surgeon Orthopedic Surgery 08/05/21 Louie Lomeli MD Consulting Physician Cardiology 12/23/21 Jairo Sparrow MD [address] [place] [address] [address] [facility] [place] [address] Consulting Physician Neurology 12/14/22 Maria Eugenia Navarrete, [address] [place] [address] Pharmacist Pharmacy 03/12/24 03/12/24 documented as of this encounter
--- OUTSIDE RECORDS SUMMARY | 2024-11-01 13:38 | XMS_ITS | Clinical Summary ---
Author Organization [facility] CALL [facility] ENTER Address [address] [place] [address] Phone Care Team Providers Care Front Office Representative Name Role Phone Makr De Los Santos MD Unavailable Unavailable Rand Tsang MD Unavailable [phone] Kim Benavidez APRN, MANUFACTURING ENGINEERING INTERN Primary Care Provider + Allergies Active Allergy Reactions Criticality Noted Date [...] daily. 90 Tablet 3 08/07/19 21 Active meloxicam (MOBIC) 7.5 MG Tablet Take [...] 1 tablet daily for 5 days. Rx: [id number] Active meclizine (ANTIVERT) 25 MG Tablet Take 1 Tablet by mouth 3 times daily as needed for Dizziness. 30 Tablet 10/11/19 25 Active meclizine (ANTIVERT) 12.5 MG Tablet Take 12.5 mg by mouth every 8 hours as needed for Dizziness. 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 12/19/2015 Hypertension, essential Arthritis DM2 (diabetes mellitus, type 2) Hyperlipidemia Encounters Date Type Department Care Team Description 10/10/2024 10:15 AM CDT Office Visit [facility] [address] [place] [address] Jairo Kelly MD Dizziness (Primary Dx) Discharge Disposition: Discharged to home or Selfcare 10/08/2024 Nurse Triage [facility] [address] [place] [address] Kim Benavidez, ASSISTANT ACTIVITIES DIRECTOR, MANUFACTURING ENGINEERING INTERN Advice Only; Dizziness 10/08/2024 Travel 10/04/2024 1:43 PM CDT - 10/04/2024 3:19 PM CDT Emergency [facility] [address] [place] [address] Wade Ansari MD Hypokalemia Discharge Disposition: Discharged to home or Selfcare 10/04/2024 Travel 09/28/2024 11:00 AM CDT Office Visit [facility] [address] [place] [address] Kim Benavidez, ASSISTANT ACTIVITIES DIRECTOR, MANUFACTURING ENGINEERING INTERN Bronchitis (Primary Dx); Dizziness; Need for hepatitis C screening test; Obesity (BMI 35.0-39.9 without comorbidity); Diabetes mellitus type 2, noninsulin dependent (HCC); Cataract, unspecified cataract type, unspecified laterality Discharge Disposition: Discharged to home or Selfcare 09/28/2024 Travel 09/25/2024 11:30 AM CDT Home Care Visit [address] [address] Tere Paul, RN SN - OASIS DISCHARGE 09/25/2024 Home Care Visit [address] [address] Tere Paul RN CASE COMMUNICATION 09/11/2024 1:00 AM CDT Home Care Visit [address] [address] Laura Valero RN SN - HOME VISIT 08/30/2024 1:00 AM CDT Home Care Visit [address] [address] Tere Grier RN SN - HOME VISIT 08/24/2024 10:30 AM CDT Home Care Visit [address] [address] Tere Grier, ISABELL SN - HOME VISIT 08/24/2024 9:30 AM CDT Home Care Visit [address] [address] Renetta Alberts, PT PT - DISCIPLINE DISCHARGE 08/16/2024 2:30 PM CDT Home Care Visit [address] [address] Zunilda Bustos, SOLAR THERMAL TECHNICIAN PT - HOME VISIT 08/16/2024 1:30 PM CDT Home Care Visit [address] [address] Tere Paul RN SN - HOME VISIT 08/16/[address] [address] Radha Mcnair RN 08/14/2024 2:30 PM CDT Home Care Visit [address] [address] Zunilda Bustos, SOLAR THERMAL TECHNICIAN PT - HOME VISIT 08/09/2024 11:30 AM CDT Home Care Visit [address] [address] Rossi Ayala LPN SN - HOME VISIT 08/08/2024 Home Care Visit [address] [address] Antonina Miller OT TELEPHONE ENCOUNTER 08/07/2024 11:00 AM CDT Home Care Visit [address] [address] Tammy Weldon, Student PT - INITIAL EVALUATION 08/04/2024 2:00 PM CDT Home Care Visit [facility] [address] [place] [address] Tere Grier, RN SN - OASIS START OF CARE 08/04/2024 Plan of Care Documentation [facility] [address] [place] [address] from Last 3 Months Immunizations Immunization Administration Dates Next Due Covid-19, Mrna, Lnp-s, PF, 1 00 mcg/0.5 mL Dose (Moderna) 07/08/2020,06/10/2020 Influenza Vaccine greater than 3 yrs 03/19/2020, 02/10/2017 02/10/2018 Influenza Vaccine, Quadrivalent, PF 02/02/2019,0 01/16/2018 Influenza Vaccine,unspecified Formulation 2020 Influenza, High-dose, Quadrivalent 03/18/2020 Influenza, Quadrivalent, Adjuvanted 02/17/2022 Influenza, high-dose, trivalent, PF 03/18/2020 PUR FLU 3+ YRS PRES FREE QUAD IM 03/12/2016 PUR PCV-13 03/12/2016 PUR TDAP 7+ YRS IM 12/11/2015 Pneumococcal Vaccine Adult - 23 Valent 8 TDAP Vaccine 02/13/2020 Tetanus Toxoid, Unspecified Formulation 05/02/19 07 Tuberculin Skin Test; Purifi ed Protein Derivative Solutiol 05/02/2006 Zoster Vaccine Recombinant 03/19/2020,06/09/2018 ,03/27/2018 Family History [...] Recorded Total Score - Questions 1-9 0 09/01 Sexually Active Control Partners Comments Yes Female Sex and Gender Information Value Date Recorded Sex Assigned at Not on file Legal Sex Male 11:59 PM CDT Gender Identity Not on file Sexual Orientation Not on file Last Filed Vital Signs Vital Sign Reading Time Taken Comments Blood Pressure 124/68 10/10/2024 10:11 AM CDT Pulse 60 10/10/2024 10:11 AM CDT Temperature 36.1 C (96.9 F) 10/10/2024 10:11 AM CDT Respiratory Rate 20 10/10/2024 10:11 AM CDT Oxygen Saturation 96% 10/10/2024 10:11 AM CDT Inhaled Oxygen Concentration - - Weight 114 kg (251 lb 6.4 oz) 10/10/2024 10:11 A M CDT Height 177.8 cm (5' 10) 10/10/2024 10:11 AM CDT Body Mass Index 36.07 10/10/2024 10:11 AM CDT Plan of Treatment Upcoming Encounters Date Type Department Care Team (Late st Contact Info) Description 11/12/2024 12:00 PM CDT Office Visit [facility] [address] [place] [address] Kim Benavidez, ASSISTANT ACTIVITIES DIRECTOR, MANUFACTURING ENGINEERING INTERN [address] [place] [address] Health Maintenance Due Date Last Done Comments Diabetes: Foot Exam 1952 Cologuard 1997 Colonoscopy 1997 Colorectal Cancer Screening 1997 Immunochemical Fecal Occult Blood 1997 Respiratory Syncytial Virus (RSV) Immunization (Adult) (1 - Risk 60-74 years 1-dose series) 2012 AAA Screening Ultrasound 2017 SARS-COV-2 Immunization ( season) 2024 02/17/2022, 09/23/2021, 03/25/2021, Additional history exists Diabetes: Eye Exam 03/29/2024 03/29/2023 Influenza Immunization (#1) 12/31/202401/30, 02/10/2021, 03/19/2020, Additional history exists Diabetes: Hemoglobin A1c 04/09/2025 025, 04/13/2024, 08/30/2023, Additional history exists Diabetes: Nephropathy Screening 10/08/2025 10/08/2024, 10/04/2024, 04/23/2019, Additional history exists Td Immunization Every 10 Years (Adults With 1 Tdap) 02/12/2030 02/13/2020, 12/11/2015 Pneumococcal Immunization (50+ years) Completed 09/27/2017, 03/12/2016 Pneumococcal Immunization Combined Discontinued 09/27/2017, 03/12/2016 PSA Discussion Discontinued 02/19/2019, 01/01, 12/07/2016, Additional history exists Zoster Immunization Completed 03/19/2020, 06/09/2018, 03/27/2018 Hepatitis C Virus (HCV) Screening Completed 10/08/2024 Hepatitis B Immunization Aged Out No longer [...] Procedure Name Priority Date/Time Associated Diagnosis Comments CBC WITH AUTO DIFFERENTIAL Routine 10/08/2024 11:30 AM CDT Dizziness Obesity (BMI 35.0-39.9 without comorbidity) Diabetes mellitus type 2, noninsulin dependent (HCC) THYROID SCREEN WITH REFLEX Routine 10/08/2024 11:30 AM CDT Dizziness Obesity (BMI 35.0-39.9 without comorbidity) Diabetes mellitus type 2, noninsulin dependent (HCC) HEMOGLOBIN A1C W/ ESTIMATED GLUCOSE Routine 10/08/2024 11:30 AM CDT Obesity (BMI 35.0-39.9 without comorbidity) Diabetes mellitus type 2, noninsulin dependent (HCC) HEPATITIS C ANTIBODY Routine 10/08/2024 11:30 AM CDT Need for hepatitis C screening test LIPID PANEL Routine 10/08/2024 11:30 AM CDT Dizziness Obesity (BMI 35.0-39.9 without comorbidity) Diabetes mellitus type 2, noninsulin dependent (HCC) CMP (COMPREHENSIVE METABOLIC PANEL) Routine 10/08/2024 11:30 AM CDT Dizziness Obesity (BMI 35.0-39.9 without comorbidity) Diabetes mellitus type 2, noninsulin dependent (HCC) COMPLETE BLOOD COUNT (CBC) WITH DIFF Routine 10/08/2024 11:30 AM CDT Dizziness Obesity (BMI 35.0-39.9 without comorbidity) Diabetes mellitus type 2, noninsulin dependent (HCC) FOLIC ACID (FOLATE) Routine 10/08/2024 1 1:30 AM CDT Dizziness Obesity (BMI 35.0-39.9 without comorbidity) Diabetes mellitus type 2, noninsulin dependent (HCC) VITAMIN B12 Routine 10/08/2024 11:30 AM CDT Dizziness Obesity (BMI 35.0-39.9 without comorbidity) Diabetes mellitus type 2, noninsulin dependent (HCC) THYROID SCREEN WITH REFLEX Routine 10/08/2024 11:30 AM CDT Dizziness Obesity (BMI 35.0-39.9 without comorbidity) Diabetes mellitus type 2, noninsulin dependent (HCC) TROPONIN I, HIGH SENSITIVITY (HSTRP) STAT 10/04/2024 2:54 PM CDT XR CHEST 2 VIEWS STAT 10/04/2024 2:45 PM CDT GOLD TOP TUBE STAT 10/04/2024 1:57 PM CDT BLUE TOP TUBE STAT 10/04/2024 1:57 PM CDT CBC WITH AUTO DIFFERENTIAL STAT 10/04/2024 1:57 PM CDT EXTRA TUBES STAT 10/04/2024 1:57 PM CDT TROPONIN I, HIGH SENSITIVITY (HSTRP) STAT 10/04/2024 1:57 PM CDT CMP (COMPREHENSIVE METABOLIC PANEL) STAT 10/04/2024 1:57 PM CDT COMPLETE BLOOD COUNT (CBC) WITH DIFF STAT 10/04/2024 1:57 PM CDT EKG 12 LEAD STAT 10/04/2024 1:43 PM CDT EKG SCAN 10/04/2024 12:00 AM CDT PSA DIAGNOSTIC,TOTAL Routine 02/19/2019 10:38 AM CDT BPH with obstruction/lower urinary tract symptoms Urgency of urination Abnormal prostate biopsy from Last 3 Months or Most Recently Relevant to Health Maintenance Results * THYROID SCREEN WITH REFLEX (10/08/2024 11:30 AM CDT) TSH 3.904 0.300 - 5.000 mIU/L 10/08/2024 12:34 PM CDT [facility] Blood Venipuncture / Unknown 10/08/2024 11:30 AM CDT 10/08/2024 11:48 AM CDT us Kim Benavidez ASSISTANT ACTIVITIES DIRECTOR, MANUFACTURING ENGINEERING INTERN CHEMISTRY ORDERABLES Fin al Result [facility] [address] [place] [address] * (ABNORMAL) HEMOGLOBIN A1C W/ ESTIMATED GLUCOSE (10/08/2024 11:30 AM CDT) HGB-A1C 7.8(H) 4.0 - 6.0 % 10/08/2024 12:10 PM CDT [facility] Est Average Glucose 177.2 mg/dL 10/08/2024 12:10 PM CDT [facility] Blood Venipuncture / Unknown 10/08/2024 11:30 AM CDT 10/08/2024 11:47 AM CDT Narrative [facility] - 10/08/2024 12:10 PM CDT HEMOGLOBIN A1C: DIABETIC PATIENTS: WELL-CONTROLLED: 6.2 - 7.0 INTERMEDIATE WELL-CONTROLLED: 7.0 - 9.0 POORLY-CONTROLLED: >9.0 Specimens containing greater than 5% of Hemoglobin F may result in lower than expected % HbA1C results. us iKm Benavidez APRN, MANUFACTURING ENGINEERING INTERN CHEMISTRY ORDERABLES Fin al Result [facility] [address] [place] [address] * (ABNORMAL) CBC WITH AUTO DIFFERENTIAL (10/08/2024 11:30 AM CDT) Only the most recent of2 resultswithin the time period is included. WBC 12.06(H) 4.00 - 12.00 10(3)/[facility] 10/08/2024 11:59 AM CDT [facility] RBC 5.23 4.40 - 5.80 10(6)/[facility] 10/08/2024 11:59 AM CDT [facility] HEMOGLOBIN (HGB) 16.0 13.0 - 16.5 g/dL 10/08/2024 11:59 AM CDT [facility] HEMATOCRIT (HCT) 48.4 38.0 - 50.0 % 10/08/2024 11:59 AM CDT [facility] MCV 92.5 82.0 - 96.0 fL 10/08/2024 11:59 AM CDT [facility] MCH 30.6 26.0 - 32.0 pg 10/08/2024 11:59 AM CDT [facility] MCHC 33.1 31.0 - 36.0 g/dL 10/08/2024 11:59 AM CDT [facility] PLATELET COUNT 187 140 - 440 10(3)/mcL 10/08/2024 11:59 AM CDT [facility] RDW 13.4 11.8 - 15.5 % 10/08/2024 11:59 AM CDT [facility] MPV 10.2 8.0 - 12.6 fL 10/08/2024 11:59 AM CDT [facility] NEUTROPHILS 82.9(H) 40.0 - 68.0 % 10/08/2024 11:59 AM CDT [facility] LYMPHOCYTES 10.0(L) 19.0 - 49.0 % 10/08/2024 11:59 AM CDT [facility] MONOCYTES 6.1 3.0 - 13.0 % 10/08/2024 11:59 AM CDT [facility] EOSINOPHILS 0.6 0.0 - 8.0 % 10/08/2024 11:59 AM CDT [facility] BASOPHILS 0.4 0.0 - 1.0 % 10/08/2024 11:59 AM CDT [facility] ABSOLUTE NEUTROPHILS 10.00(H) 1.40 - 5.30 10(3)/[facility] 10/08/2024 11:59 AM CDT [facility] ABSOLUTE LYMPHOCYTES 1.20 0.90 - 3.30 10(3)/[facility] 10/08/2024 11:59 AM CDT [facility] ABSOLUTE MONOCYTES 0.74 0.10 - 0.90 10(3)/[facility] 10/08/2024 11:59 AM CDT [facility] ABSOLUTE EOSINOPHIL 0.07 0.00 - 0.50 10(3)/[facility] 10/08/2024 11:59 AM CDT [facility] ABSOLUTE BASOPHILS 0.05 0.00 - 0.10 10(3)/[facility] 10/08/2024 11:59 AM CDT [facility] NRBC PER 100 WBC 0 10/09/19 11:59 AM CDT [facility] Blood Venipuncture / Unknown 10/08/2024 11:30 AM CDT 10/08/2024 11:48 AM CDT us Kim Benavidez ASSISTANT ACTIVITIES DIRECTOR, MANUFACTURING ENGINEERING INTERN HEMATOLOGY ORDERABLES Fi nal Result Performing Organization Address [facility]/ZIP Co de Phone Number [facility] [address] [place] [address] * VITAMIN B12 (10/08/2024 11:30 AM CDT) VITAMIN B12 323 213 - 816 pg/mL 10/08/2024 12:50 PM CDT [facility] Blood Venipuncture / Unknown 10/08/2024 11:30 AM CDT 10/08/2024 11:48 AM CDT Kim Benavidez ASSISTANT ACTIVITIES DIRECTOR, MANUFACTURING ENGINEERING INTERN CHEMISTRY ORDERABLES Fin al Result Performing Organization Address [facility] Co de Phone Number [facility] [address] [place] [address] * (ABNORMAL) LIPID PANEL (10/08/2024 11:30 AM CDT) CHOLESTEROL 182 <200 mg/dL 10/08/2024 12:21 PM CDT [facility] TRIGLYCERIDES 145 <150 mg/dL 10/08/2024 12:21 PM CDT [facility] HDL CHOLESTEROL 37(L) >40 mg/dL 12:21 PM CDT [facility] LDL 116 <130 mg/dL 10/08/2024 12:21 PM CDT [facility] VLDL 29 10 - 50 mg/dL 10/08/2024 12:21 PM CDT [facility] CHOL/HDL RATIO 4.9(H) 0.0 - 4.4 10/08/2024 12:21 PM CDT [facility] NON-HDL CHOLESTEROL 145(H) <130 mg/dL 10/08/2024 12:21 PM CDT [facility] IS THE PATIENT REQUIRED TO BE FASTING? Yes 10/08/2024 12:21 PM CDT [facility] HAS THE PATIENT BEEN FASTING? Yes 10/08/2024 12:21 PM CDT [facility] Blood Venipuncture / Unknown 10/08/2024 11:30 AM CDT 10/08/2024 11:48 AM CDT Kim Barker Pramod ASSISTANT ACTIVITIES DIRECTOR, MANUFACTURING ENGINEERING INTERN CHEMISTRY ORDERABLES Fin al Result [facility] [place] [address] * HEPATITIS C ANTIBODY (10/08/2024 11:30 AM CDT) hepatitis C antibody 0.08 <1 S/CO 10/08/2024 9:54 PM CDT [facility] Comment: Signal/Cutoff ratio < 0.79 is Nondetected Signal/Cutoff ratio 0.80-0.99 is Grayzone Signal/Cutoff ratio > 0.99 is Detected Supplemental assays are recommended if signal/cutoff ratio is >/=1.00. Signal/cutoff ratio result >/= 5.00 is 97% predictive of positivity for recombinant immunoblot assay (RIBA) and will be reported to the [place] [facility] Public [facility] as required. Blood Venipuncture / Unknown 10/08/2024 11:30 AM CDT 10/08/2024 11:48 AM CDT Kim Barker Pramod ASSISTANT ACTIVITIES DIRECTOR, MANUFACTURING ENGINEERING INTERN CHEMISTRY ORDERABLES Fin al Result Performing Organization Address City/[facility]/ZIP Co de Phone Number [facility] [address] [place] [address], * (ABNORMAL) FOLIC ACID (FOLATE) (10/08/2024 11:30 AM CDT) FOLATE 5.8(L) 7.0 - 31.4 ng/mL 10/08/2024 12:50 PM CDT [facility] IS THE PATIENT REQUIRED TO BE FASTING? No 10/08/2024 12:50 PM CDT [facility] Blood Venipuncture / Unknown 10/08/2024 11:30 AM CDT 10/08/2024 11:48 AM CDT us Kim Benavidez APRN, MANUFACTURING ENGINEERING INTERN CHEMISTRY ORDERABLES Fin al Result [facility] [address] [place] [address] * (ABNORMAL) CMP (COMPREHENSIVE METABOLIC PANEL) (10/08/2024 11:30 AM CDT) Only the most recent of2 resultswithin the time period is included. SODIUM 142 136 - 145 mmol/L 10/08/2024 12:21 PM CDT [facility] POTASSIUM 3.5 3.5 - 5.1 mmol/L 10/08/2024 12:21 PM CDT [facility] CHLORIDE 108(H) 98 - 107 mmol/L 10/08/2024 12:21 PM CDT [facility] CO2, VENOUS 24 22 - 30 mmol/L 10/08/2024 12:21 PM CDT [facility] ANION GAP 13.5 <18.0 mmol/L 10/08/2024 12:21 PM CDT [facility] GLUCOSE 140(H) 70 - 99 mg/dL 10/08/2024 12:21 PM CDT [facility] BUN 34(H) 8 - 26 mg/dL 10/08/2024 12:21 PM CDT [facility] CREATININE, BLOOD 1.44(H) 0.70 - 1.30 mg/dL 10/08/2024 12:21 PM CDT [facility] BUN/CREATININE RATIO 24(H) 12 - 20 ratio 10/08/2024 12:21 PM CDT [facility] TOTAL PROTEIN 6.4 6.0 - 8.0 g/dL 10/08/2024 12:21 PM CDT [facility] ALBUMIN 3.8 3.5 - 5.0 g/dL 10/08/2024 12:21 PM CDT [facility] A/G RATIO 1.5 1.0 - 2.2 10/08/2024 12:21 PM CDT [facility] CALCIUM 8.9 8.7 - 10.5 mg/dL 10/08/2024 12:21 PM CDT [facility] T BILI 0.4 0.2 - 1.2 mg/dL 10/08/2024 12:21 PM CDT [facility] SGOT (AST) 18 <43 U/L 10/08/2024 12:21 PM CDT [facility] SGPT (ALT) 13 <56 U/L 10/08/2024 12:21 PM CDT [facility] ALKALINE PHOSPHATASE 78 40 - 150 U/L 10/08/2024 12:21 PM CDT [facility] IS THE PATIENT REQUIRED TO BE FASTING? No 10/08/2024 12:21 PM CDT [facility] GFR, ESTIMATED 52(L) >=60 10/08/2024 12:21 PM CDT [facility] Comment: Creatinine Clearance is the preferred criteria for selecting drug dose adjustments in renally impaired patients. The GFR is provided as additional pertinent clinical information. GFR is reported in mL/min/1.73 sq m. Calculation based on the Chronic Kidney Disease Epidemiology Collaboration (CKD- EPI) equation refit without adjustment for race. GFR, EST. 58(L) >=60 025 12:21 PM CDT [facility] GFR, EST. NONAFRICAN 48(L) >=60 10/08/2024 12:21 PM CDT [facility] Blood Venipuncture / Unknown 10/08/2024 11:30 AM CDT 10/08/2024 11:48 AM CDT us Kim Benavidez ASSISTANT ACTIVITIES DIRECTOR, MANUFACTURING ENGINEERING INTERN CHEMISTRY ORDERABLES Fin al Result [facility] [address] [place] [address] * TROPONIN I, HIGH SENSITIVITY (HSTRP) (10/04/2024 2:54 PM CDT) Only the most recent of2 resultswithin the time period is included. TROPONIN I, HIGH SENSITIVITY- [place] 27 <=35 ng/L 10/04/2024 3:33 PM CDT [facility] Comment: High-sensitivity troponin I results are reported in ng/L making the result appear to be 1,000 times higher than the contemporary troponin I value which is reported in ng/ml. Results from [place]. Blood Venipuncture / Unknown 10/04/2024 2:54 PM CDT 10/04/2024 3:03 PM CDT us Wade Ansari MD CHEMISTRY ORDERABLES Final Result [facility] [address] [place] [address] * XR CHEST 2 VIEWS (10/04/2024 2:45 PM CDT) Anatomical Region Laterality Modality Chest N/A Digital Radiogra phy 10/04/2024 2:49 PM CDT Impressions 10/04/2024 2:51 PM CDT IMPRESSION: No acute pulmonary process. Narrative 10/04/2024 2:51 PM CDT EXAM DESCRIPTION: XR CHEST 2 VIEWS REASON FOR STUDY: medial chest pain, SOB x this am. denies cough. Hx of DM, HTN TECHNIQUE: 2 radiographic view(s) of the chest. COMPARISON: 02/20/2018 FINDINGS: LUNGS: No focal opacity, pleural effusion, or pneumothorax. Bibasilar atelectasis. HEART/MEDIASTINUM: Cardiac silhouette normal in size. Mediastinal and hilar contours appear normal. LINES/TUBES: None. BONES: No acute osseous abnormality. THIS IS AN ELECTRONICALLY VERIFIED FINAL REPORT 10/04/2024 2:49 PM - Electronically signed by Braydon Londono M.D. MM: MM Report ID: [id number] Reading Location: [id number] Procedure Note Braydon Londono MD - 10/04/2024 EXAM DESCRIPTION: XR CHEST 2 VIEWS REASON FOR STUDY: medial chest pain, SOB x this am. denies cough. Hx of DM, HTN TECHNIQUE: 2 radiographic view(s) of the chest. COMPARISON: 02/20/2018 FINDINGS: LUNGS: No focal opacity, pleural effusion, or pneumothorax. Bibasilar atelectasis. HEART/MEDIASTINUM: Cardiac silhouette normal in size. Mediastinal and hilar contours appear normal. LINES/TUBES: None. BONES: No acute osseous abnormality. THIS IS AN ELECTRONICALLY VERIFIED FINAL REPORT 10/04/2024 2:49 PM - Electronically signed by Braydon Londono M.D. MM: MM Report ID: [id number] Reading Location: [id number] IMPRESSION: No acute pulmonary process. Wade Ansari MD IMG DIAGNOSTIC ORDERABLES Final Result * Gold Top Tube (10/04/2024 1:57 PM CDT) Blood No Phlebotomy Charged / Unknown 10/04/2024 1:57 PM CDT 10/04/2024 2:11 PM CDT Wade Ansari MD CHEMISTRY ORDERABLES Final Result Performing Organization Address [facility] Co de Phone Number [facility] [address] [place] [address] * Blue Top Tube (10/04/2024 1:57 PM CDT) Blood No Phlebotomy Charged / Unknown 10/04/2024 1:57 PM CDT 10/04/2024 2:11 PM CDT Wade Ansari MD HEMATOLOGY ORDERABLES Holly l Result Performing Organization Address City/[facility] Co de Phone Number [facility] [address] [place] [address] * EKG 12 LEAD (10/04/2024 1:43 PM CDT) Ventricular Rate 67 BPM EXTERNAL EKG Atrial Rate 67 BPM EXTERNAL EKG P-R Interval 188 ms EXTERNAL EKG QRS Duration 72 ms EXTERNAL EKG Q-T Duration 406 ms EXTERNAL EKG QTC CALCULATION 429 ms EXTERNAL EKG P Henefer 21 degrees EXTERNAL EKG R Henefer -35 degrees EXTERNAL EKG T Henefer 101 degrees EXTERNAL EKG 10/04/2024 1:43 PM CDT Impressions EXTERNAL EKG - 10/05/2024 12:04 PM CDT Sinus rhythm with sinus arrhythmia with fusion complexes Left axis deviation Left ventricular hypertrophy with repolarization abnormality ( R in aVL ) Inferior infarct , age undetermined Anterior infarct , age undetermined Abnormal ECG When compared with ECG of 22-JUN-2019 10:56, PREVIOUS ECG IS PRESENT Confirmed by Lio Lew ([id number]) on 10/05/2024 12:04:08 PM Narrative Procedure Note Lio Lew MD - 10/05/2024 IMPRESSION: Sinus rhythm with sinus arrhythmia with fusion complexes Left axis deviation Left ventricular hypertrophy with repolarization abnormality ( R in aVL) Inferior infarct , age undetermined Anterior infarct , age undetermined Abnormal ECG When compared with ECG of 22-JUN-2019 10:56, PREVIOUS ECG IS PRESENT Confirmed by Lio Lew ([id number]) on 10/05/2024 12:04:08 PM us Wade Ansari MD IMG ECG ORDERABLES Final R esult EXTERNAL EKG * EKG SCAN (10/04/2024 12:00 AM CDT) 10/04/2024 us Provider Scan IMG ECG ORDERABLES Final Result RESULTING AGENCY * (ABNORMAL) PSA DIAGNOSTIC,TOTAL (02/19/2019 10:38 AM CDT) PSA, TOTAL (PROSTATIC SPECIFIC ANTIGEN) 6.36(H) <=4.00 ng/mL 02/19/2019 1:24 PM CDT [facility] Blood specimen (specimen) Venipuncture / Unknown 02/19/2019 10:38 AM CDT 02/19/2019 12:34 PM CDT Narrative [facility] - 02/19/2019 1:24 PM CDT PSA NOTE: The PSA value should be used in conjunction with information available from clinical evaluation and other diagnostic procedures. Michelet Moran MD CHEMISTRY ORDERABLES Final Result [facility] [address] [place] [address] from Last 3 Months or Most Recently Relevant to Health Maintenance Insurance [facility] Direct[facility] * Full Code (Latest Code Status on File) Date Activated Date Inactivated Comments 08/07/2024 2:22 PM Care Teams Front Office Representative Relationship Specialty Start Date End Date Kim Benavidez, ASSISTANT ACTIVITIES DIRECTOR, MANUFACTURING ENGINEERING INTERN [address] [place] [address] PCP - General Advanced Practice Nurse 09/28/24 Mark De Los Santos MD Consulting Physician Urology 09/05/15 Rand Tsang MD Consulting Physician Dermatopathology 01/16/18
--- OUTSIDE RECORDS SUMMARY | 2024-11-01 13:38 | XMS_ITS | Encounter Summary ---
Author Organization [facility] Health Address [address] [place] [address] Care Team Providers Care Hoop Maker Machine Name Role Phone Carlos Moran MD Primary Care Provider [phone] Encounter Details Date Type Department Care Team (Late Contact Info) Description 04/13/2024 Lab Requisition [facility] [address] [place] [address] [place] [address] Social History Tobacco Use Types Packs/Day Years Used Date Smoking Tobacco: Former Smokeless Tobacco: Never Alcohol Use Standard Drinks/Week Comments No 0 (1 standard drink = 0.6 oz pur e alcohol) Sex and Gender Information Value Date Recorded Sex Assigned at Not on file Legal Sex Male 11:59 AM PARTICLE BOARD SUPERVISOR Gender Identity Not on file Sexual Orientation Not on file documented as of this encounter Plan of Treatment Upcoming Encounters Date Type Department Care Team (Late Contact Info) Description 12/20/2024 11:00 AM CDT Appointment [facility] [address] [address] Lisa Singh MD [address] [phone] documented as of this encounter Procedures Procedure Name Priority Date/Time Associated Diagnosis Comments TSH REFLEX FREE T4 STAT 04/13/2024 3: 21 PM PARTICLE BOARD SUPERVISOR HEMOGLOBIN A1C STAT 04/13/2024 3:21 PM PARTICLE BOARD SUPERVISOR CBC W AUTO DIFFERENTIAL STAT 04/13/2024 3:21 PM PARTICLE BOARD SUPERVISOR COMPREHENSIVE METABOLIC PANEL STAT 04/13/2024 3:21 PM PARTICLE BOARD SUPERVISOR LIPID PROFILE STAT 04/13/2024 3:21 PM PARTICLE BOARD SUPERVISOR documented in this encounter Results * (ABNORMAL) HEMOGLOBIN A1C (04/13/2024 3:21 PM PARTICLE BOARD SUPERVISOR) Hemoglobin A1c 7.3(H) <5.7 % 04/13/2024 3:47 PM PARTICLE BOARD SUPERVISOR [facility] Estimated Average Glucose 163 mg/dL 04/13/2024 3:47 PM PARTICLE BOARD SUPERVISOR [facility] Blood BLOOD SPECIMEN / Unknown 04/13/2024 3:21 PM PARTICLE BOARD SUPERVISOR 04/13/2024 3:25 PM PARTICLE BOARD SUPERVISOR [facility] - 04/13/2024 3:47 PM PARTICLE BOARD SUPERVISOR HbA1c Interpretation: Normal: < 5.7% Pre-diabetes: 5.7-6.4% [...] LAB - CHEMISTRY ORDERABLES Holly lu Result [facility] [address] [place] [id number] * (ABNORMAL) LIPID PROFILE (04/13/2024 3:21 PM PARTICLE BOARD SUPERVISOR) Cholesterol 173 <200 mg/dL 04/13/2024 3:48 PM PARTICLE BOARD SUPERVISOR [facility] Triglycerides 179(H) <150 mg/dL 04/13/2024 3:48 PM PARTICLE BOARD SUPERVISOR [facility] HDL Cholesterol 26(L) >40 mg/dL 3:48 PM PARTICLE BOARD SUPERVISOR [facility] LDL Calculated 111 <130 mg/dL 04/13/2024 3:48 PM PARTICLE BOARD SUPERVISOR [facility] VLDL Calculated 36(H) <=30 mg/dL 3:48 PM PARTICLE BOARD SUPERVISOR [facility] Chol HDL Ratio 6.7(H) <4.5 04/13/2024 3:48 PM PARTICLE BOARD SUPERVISOR [facility] LDL/HDL Ratio 4.3 <5.0 04/13/2024 3:48 PM PARTICLE BOARD SUPERVISOR [facility] Blood BLOOD SPECIMEN / Unknown Venipuncture / Unknown 04/13/2024 3:21 PM PARTICLE BOARD SUPERVISOR 04/13/2024 3:25 PM PARTICLE BOARD SUPERVISOR [employer] LAB - CHEMISTRY ORDERABLES Holly l Result Performing Organization Address City/[facility]/ZIP Co de Phone Number [facility] [address] [place] [address] * TSH REFLEX FREE T4 (04/13/2024 3:21 PM PARTICLE BOARD SUPERVISOR) Pathologist [facility] TSH 3.335 0.350 - 4.940 uIU/mL 04/13/2024 4:06 PM PARTICLE BOARD SUPERVISOR [facility] Blood BLOOD SPECIMEN / Unknown Venipuncture / Unknown 04/13/2024 3:21 PM PARTICLE BOARD SUPERVISOR 04/13/2024 3:25 PM PARTICLE BOARD SUPERVISOR [employer] [facility] LAB - CHEMISTRY ORDERABLES Holly l Result [facility] [address] [place] [id number] * (ABNORMAL) COMPREHENSIVE METABOLIC PANEL (04/13/2024 3:21 PM PARTICLE BOARD SUPERVISOR) [facility] Glucose 193(H) 70 - 99 mg/dL 04/13/2024 3:48 PM [facility] Sodium 140 136 - 145 mmol/L 04/13/2024 3:48 PM [facility] Potassium 3.4(L) 3.5 - 5.1 mmol/L 04/13/2024 3:48 PM [facility] Chloride 104 98 - 107 mmol/L 04/13/2024 3:48 PM [facility] CO2 26 22 - 29 mmol/L 04/13/2024 3:48 PM [facility] Calcium 9.6 8.4 - 10.4 mg/dL 04/13/2024 3:48 PM [facility] Anion Gap 10 6 - 16 mmol/L 04/13/2024 3:48 PM [facility] BUN 21 7 - 26 mg/dL 04/13/2024 3:48 PM [facility] Creatinine 1.51(H) 0.72 - 1.25 mg/dL 04/13/2024 3:48 PM [facility] Alkaline Phosphatase 109 40 - 150 U/L 04/13/2024 3:48 PM [facility] ALT 14 0 - 55 U/L 04/13/2024 3:48 PM [facility] AST 13 5 - 34 U/L 04/13/2024 3:48 PM [facility] Protein Total 6.9 6.4 - 8.3 gm/dL 04/13/2024 3:48 PM [facility] Albumin 3.4 3.4 - 5.0 gm/dL 04/13/2024 3:48 PM [facility] Bilirubin Total 0.3 0.2 - 1.2 mg/dL 04/13/2024 3:48 PM [facility] eGFR by CKD-EPI 49(L) >=90 mL/min/1.7 3 m2 04/13/2024 3:48 PM [facility] Blood BLOOD SPECIMEN / Unknown Venipuncture / Unknown 04/13/2024 3:21 PM PARTICLE BOARD SUPERVISOR 04/13/2024 3:25 PM [facility] LAB - CHEMISTRY ORDERABLES Holly l Result [facility] [address] [place] [address] * (ABNORMAL) CBC WITH DIFFERENTIAL (04/13/2024 3:21 PM PARTICLE BOARD SUPERVISOR) WBC 11.8(H) 4.0 - 10.7 x10E9/L 04/13/2024 3:32 PM [facility] RBC Count 4.77 4.30 - 5.80 x10E12/L 04/13/2024 3:32 PM [facility] Hemoglobin 13.9 13.3 - 17.5 g/dL 04/13/2024 3:32 PM [facility] Hematocrit 44.8 38.7 - 51.1 % 04/13/2024 3:32 PM [facility] MCV 93.9 80.0 - 98.0 fL 04/13/2024 3:32 PM [facility] MCH 29.1 26.7 - 33.6 pg 04/13/2024 3:32 PM [facility] MCHC 31.0(L) 31.7 - 36.3 g/dL 04/13/2024 3:32 PM [facility] RDW-CV 13.2 11.3 - 14.8 % 04/13/2024 3:32 PM [facility] Platelet Count 253 150 - 420 x10E9/L 04/13/2024 3:32 PM [facility] MPV 10.2 7.8 - 11.4 fL 04/13/2024 3:32 PM [facility] Neutrophil % 79.0(H) 41.0 - 74.0 % 04/13/2024 3:32 PM [facility] Lymphocyte % 10.8(L) 17.0 - 47.0 % 04/13/2024 3:32 PM [facility] Monocyte % 7.3 3.0 - 11.0 % 04/13/2024 3:32 PM [facility] Eosinophil % 1.5 0.0 - 7.0 % 04/13/2024 3:32 PM [facility] Basophil % 0.3 0.0 - 1.6 % 04/13/2024 3:32 PM [facility] Immature Granulocytes % 1.1(H) 0.0 - 1.0 % 04/13/2024 3:32 PM PARTICLE BOARD SUPERVISOR [facility] Neutrophil Absolute 9.32(H) 1.60 - 7.50 x10E9/L 04/13/2024 3:32 PM PARTICLE BOARD SUPERVISOR [facility] Lymphocyte Absolute 1.27 1.00 - 4.40 x10E9/L 04/13/2024 3:32 PM PARTICLE BOARD SUPERVISOR [facility] Monocyte Absolute 0.86 0.15 - 1.00 x10E9/L 04/13/2024 3:32 PM PARTICLE BOARD SUPERVISOR [facility] Eosinophil Absolute 0.18 0.00 - 0.60 x10E9/L 04/13/2024 3:32 PM PARTICLE BOARD SUPERVISOR [facility] Basophil Absolute 0.04 0.00 - 0.13 x10E9/L 04/13/2024 3:32 PM PARTICLE BOARD SUPERVISOR [facility] Blood BLOOD SPECIMEN / Unknown 04/13/2024 3:21 PM PARTICLE BOARD SUPERVISOR 04/13/2024 3:25 PM PARTICLE BOARD SUPERVISOR [facility] LAB - HEMATOLOGY ORDERABLES Fin al Result Performing Organization Address City/State/[facility] Co de Phone Number [facility] [address] [place], [place] [id number] documented in this encounter Visit Diagnoses Not on filedocumented in this encounter Care Teams Hoop Maker Machine Relationship Specialty Start Date End Date Carlos Moran MD PCP - General Internal Medicine 04/24/17 documented as of this encounter
--- OUTSIDE RECORDS SUMMARY | 2024-11-01 13:38 | XMS_ITS | Encounter Summary ---
Author Organization [facility] Address [address] [place] [address] Phone Care Team Providers Care Multiple Effect Evaporator Operator Name Role Phone Mark De Los Santos MD Unavailable Unavailable Rand Tsang MD Unavailable [phone] Carlos Moran MD Primary Care Provider [phone] Sohail Gould MD Primary Care Provider [phone] Vicki Salmeron APRN Primary Care Provider [phone] Kim Benavidez APRN, [facility] Primary Care Provider + Reason for Visit * Reason Comments Medication Refill Encounter Details Date Type Department Care Team (Late st Contact Info) Description 01/26/2021 Refill [facility] - Primary Care - [place] [address] [place] [address] Carlos Moran MD [address] [place] [address] Medication Refill Social History Tobacco [...] Office Visit [facility] - Family [facility] [address] [place] [address] Kim Benavidez APRN, DISTRICT GAUGER [address] [place] [address] documented as of this encounter Visit Diagnoses Not on filedocumented in this encounter Additional Health Concerns Assessment Noted Time PHQ-9 Depression Total Score: 0 07/13/19 20 10:00 AM CDT documented as of this encounter Care Teams Multiple Effect Evaporator Operator Relationship Specialty Start Date End Date Carlos Moran MD [address] [place] [address] PCP - General Internal Medicine 10/07/20 08/19/21 Sohail Gould MD [facility] [place] [address] PCP - General Family Medicine 08/20/21 08/15/24 Vicki Salmeron APRN [address] [place] [address] [place] [address] PCP - General Advanced Practice Nurse 08/16/24 Kim Benavidez APRN, DISTRICT GAUGER [address] [place] [address] PCP - General Advanced Practice Nurse 09/28/24 Mark De Los Santos MD Consulting Physician Urology 09/05/15 Rand Tsang MD Consulting Physician Dermatopathology 01/16/18 documented as of this encounter
--- OUTSIDE RECORDS SUMMARY | 2024-11-01 13:38 | XMS_ITS | Encounter Summary ---
Author Organization [facility] Address [address] [place] [address] Phone Care Team Providers Care Cdl Dedicated Truck Driver Name Role Phone Mark De Los Santos MD Unavailable Unavailable Rand Tsang MD Unavailable [phone] Kim Benavidez SAND MILL GRINDER, TRANSPORTATION DEPARTMENT HEAD Primary Care Provider + Reason for Visit * Reason Onset Date Comments Advice Only 10/08/2024 Dizziness 10/08/2024 Encounter Details Date Type Department Care Team (Late st Contact Info) Description 10/08/2024 Nurse Triage [facility] [address] [place] [address] Kim Benavidez, SAND MILL GRINDER, TRANSPORTATION DEPARTMENT HEAD [address] [place] [address] Advice Only; Dizziness Social History Tobacco Use Types Packs/Day Years [...] encounter Miscellaneous Notes * Telephone Encounter - Laurie Dozier RN - 10/09/2024 5:14 PM CDT Called and spoke with patient and he stated that he has home health coming out tomorrow and will call back and scheduled an appointment after he knows what time they are coming out. He stated that he feel dizzy like he was. Please review labs that he had done 10-08-2024 * Telephone Encounter - Kim Benavidez APRN, CNP - 10/09/2024 1:01 PM CDT I would recommend evaluation for symptoms of dizziness. * Telephone Encounter - Bozena Larsen RN - 10/08/2024 3:02 PM CDT SITUATION: dizzy BACKGROUND: patient contacting PCP office. Started 2 days ago ASSESSMENT: Symptom Description / Location: Hx of dizziness States he is very dizzy today and this is constant SOB now sitting down Pain: Caller denies pain. Fever: Denies fever. Treatment / Response: meclizine prescribed med for dizzy with some relief. RECOMMENDATION: Advised he should go to ED now and have someone drive him there. He states he is not going there and would like to be seen in office or have medication ordered Please advise. Patient/caller refuses disposition of: GO to ED now Reiterated the importance of following recommendation as symptoms could indicate a serious or life-threatening situation Patient response:patient requesting appointment in office as opposed to emergency department. Advised that appointment may be cancelled by provider and provider may direct patient to ED for evaluation. Caller aware and verbalized understanding and agreement with plan. Provider to review and advise on change in plan of care due to ED refusal. - See care advice and disposition for Guideline. First positive answer recorded, all responses to prior questions were negative. If symptoms increase, change or if new symptoms develop, call your health care provider or call back. Recommendations were based on caller information and is not a diagnosis. Verified and reviewed all triage information with caller. * Telephone Encounter - Monique Padron - 10/08/2024 3:01 PM CDT Symptom: Dizziness Outcome: Warm transfer to an emergent RN NOW! Reason: Trouble walking The caller accepted this outcome. documented in this encounter Plan of Treatment Upcoming Encounters Date Type Department Care Team (Late st Contact Info) Description 11/12/2024 12:00 PM CDT Office Visit [facility] [address] [place] [address] Kim Benavidez, SAND MILL GRINDER, TRANSPORTATION DEPARTMENT HEAD [address] [place] [address] documented as of this encounter Visit Diagnoses Not on filedocumented in this encounter Additional Health Concerns Assessment Noted Time PHQ-9 Depression Total Score: 0 09/29/19 25 11:18 AM CDT documented as of this encounter Care Teams Cdl Dedicated Truck Driver Relationship Specialty Start Date End Date Kim Benavidez APRN, TRANSPORTATION DEPARTMENT HEAD [address] [place] [address] PCP - General Advanced Practice Nurse 09/28/24 Mark De Los Santos MD Consulting Physician Urology 09/05/15 Rand Tsang MD Consulting Physician Dermatopathology 01/16/18 documented as of this encounter
--- OUTSIDE RECORDS SUMMARY | 2024-11-01 13:38 | XMS_ITS | Referral Summary ---
Author Organization [facility] [address] [facility] Address [address] [facility] [address] Care Team Providers Care Commuter Train Operator Name Role Phone Nicolas Jung MD Unavailable [phone] Louie Lomeli MD Unavailable [phone] Melchor Woodard MD Primary Care Provider [phone] Jairo Sparrow MD Unavailable [phone] Encounters Date Type Department Care Team Description 10/01/2024 Orders Only [facility] Operating Room [facility] [place] [address] Jayshree Hopkins MD Snoring (Primary Dx); Type 2 diabetes mellitus with other specified complication, without long-term current use of insulin (HCC) 09/26/2024 11:35 PM CDT - 09/27/2024 12:07 AM CDT Emergency [facility] Emergency Department [address] [place] [id number] Sohan Bueno MD Bronchitis (Primary Dx); Acute cough; Dysphagia, unspecified type Discharge Disposition: Left Against Medical Advice 09/17/2024 11:51 AM CDT - 09/17/2024 12:39 PM T Emergency [facility] Emergency Department [address] [place] [phone] Gouty arthritis of left foot (Primary Dx) Discharge Disposition: Discharge to home or self care 08/13/2024 Orders Only [facility] [address] [facility] [address] [place] [phone] Effie Avelar NP Dizziness and giddiness (Primary Dx) 08/13/2024 Telephone [facility] [address] [facility] [address] [place] [phone] Jairo Sparrow MD 08/10/2024 11:13 AM CDT - 08/10/2024 1:21 PM CDT Emergency [facility] Emergency Department [address] [place] [address] Gouty arthritis of left foot (Primary Dx) Discharge Disposition: Discharge to home or self care 08/09/2024 Documentation [facility] Case Management [address] [place] [address] Rodriguez Goldstein RN 07/30/2024 2:40 PM CDT - 08/02/2024 4:22 PM CDT Hospital Encounter [facility] Acute Medicine [address] [place] [address] Krystal Araujo MD Singh, Arjun, MD Dizziness [...] Date Comments Ceftriaxone Nausea only Low 09/23/2021 Lefleac-Nkt-Qlw Reductase Inhibitors Other (See comments) Low 01/26/2018 Generalized pain Medications losartan (COZAAR) 25 mg tablet Take 1 tablet (25 mg total) by mouth daily 07/29/19 23 Active levothyroxine (SYNTHROID) 50 mcg tablet Take 1 tablet (50 mcg total) by mouth 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 before 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 Active aspirin 81 mg enteric [...] by mouth daily 30 tablet 08/04/19 25 026 Active calcium carbonate-vitam in D3 1,250mg (500mg elemental) - 5 mcg (200 units) per tablet Take 1 tablet by mouth daily 30 tablet 08/04/19 25 026 Active famotidine (PEPCID) 20 mg tablet Take 1 tablet (20 mg total) by mouth daily 30 tablet 08/03/19 25 026 Active predniSONE (DELTASONE) 5 [...] 06/01/2022 Assessment & Plan (06/01/2022 3:29 PM REGRINDER OPERATOR): Worsening, patient reports symptoms are worse 1st thing in the morning, has to clean eyes before can open; fewer symptoms throughout the day; most consistent with allergic conjunctivitis Start azelastine eyedrops Diabetic neuropathy, type II diabetes mellitus 0 05/27/2022 LALITO (acute kidney injury) 03/10/2022 Obesity (BMI 30-39.9) 03/10/2022 Other chest pain 03/09/2022 Assessment & Plan (06/01/2022 3:28 PM REGRINDER OPERATOR): Continues to have episodes of chest pain, started in nature; can radiate to right-side of chest Patient reports some relief with ASA; has nitroglycerin Will continue to monitor; if negative cardio workup, consider esophageal spasms of source of pain Assessment & Plan (04/06/2022 11:47 AM REGRINDER OPERATOR): Reports pressure-like chest pain today, worsening [...] (12/29/2021): Added automatically from request for surgery [id number] Leukocytosis 12/19/2021 UTI (urinary tract infection) 12/19/2021 Coronary artery disease 12/18/2021 Overview (12/18/2021): Added automatically from request for surgery [id number] Assessment & Plan (03/07/2022 9:41 AM REGRINDER OPERATOR): Not well controlled, patient had stopped [...] (12/17/2021): Added automatically from request for surgery [id number] Assessment & Plan (01/10/2022 9:21 PM CDT): [...] Nasal saline spray (Simply saline, [employer] Remedies, [place], [place]) 2 second sprays or 2 squeezes into [...] (11/18/2020): Added automatically from request for surgery [id number] Assessment & Plan (03/20/2021 4:30 PM REGRINDER OPERATOR): Stable, patient waiting on improved A1c [...] (11/18/2020): Added automatically from request for surgery [id number] Scar of vermilion border of upper lip 07/04/2020 Overview (07/04/2020): Referral to plastic surgery for evaluation and possible affects scar tissue Cicatrix 07/04/2020 Tension headache 06/30/2020 Assessment & Plan (06/25/2021 10:33 AM REGRINDER OPERATOR): Patient has recurrent left-sided tension headaches; likely secondary to pressure on muscles from lipoma Assessment & Plan (06/09/2021 1:59 PM REGRINDER OPERATOR): Patient has headache for the last [...] nostril Assessment & Plan (06/30/2020 12:31 PM REGRINDER OPERATOR): Patient has severe left sided headache; reports worsened with looking down or leaning back in bed; may be related to sinuses vs tension type headache -given congestion may consider sinus pressure and will refer to ENT Chronic midline low back pain without sciatica 0 06/30/2020 Assessment & Plan (06/30/2020 12:33 PM REGRINDER OPERATOR): Not well controlled; likely worsened due to poor core strength; encouraged weight loss to reduce strain on lower back (has severe central adiposity) Will give patient core exercises to strengthen low back and abodmen Lipoma of neck 06/25/2020 Assessment & Plan (06/25/2021 10:32 AM REGRINDER OPERATOR): Not well controlled, patient has left-sided tension style headaches, S with noted changing position of head due to size of lipoma Patient benefit from surgical removal to help improve overall posture as well as potentially improved tension headaches Assessment & Plan (05/14/2021 1:29 PM REGRINDER OPERATOR): Patient has large lipoma on back left-sided neck; reports left-sided headaches, which may be contributed by lipoma putting pressure on muscles sugar causing tension headaches Referral to Plastic surgery for removal Assessment & Plan (03/20/2021 4:29 PM REGRINDER OPERATOR): Stable, Impacts patient ability to turn had; will continue monitor refer to surgery when appropriate Primary osteoarthritis of left knee 05/08/2020 Assessment & Plan (11/17/2021 3:53 PM CDT): Continues to have significant pain, has some symptom improvement, but limited range of motion and pain with movement Recent steroid injection Follow-up with orthopedics Assessment & Plan (04/21/2021 2:52 PM REGRINDER OPERATOR): Stable, continues with physical therapy which [...] monitor Assessment & Plan (05/14/2021 1:29 PM REGRINDER OPERATOR): Improving, patient has walked about 12 lb since last visit; encouraged continued dietary changes, decreasing in take through portion control as well as lowering carbohydrate intake Encourage daily activity of 30 minutes of moderate intensity aerobic exercise daily Assessment & Plan (03/20/2021 4:29 PM REGRINDER OPERATOR): Weight is stable, no significant change; [...] week Assessment & Plan (05/05/2020 3:33 PM REGRINDER OPERATOR): Not well controlled, patient reports weight [...] daily Assessment & Plan (06/25/2021 10:31 AM REGRINDER OPERATOR): Stable, unclear control, patient reports inconsistent medications use Continue levothyroxine 50 mcg daily, check TSH today Assessment & Plan (04/21/2021 2:52 PM REGRINDER OPERATOR): Stable, well controlled; continue levothyroxine 50 mcg daily Assessment & Plan (03/20/2021 4:28 PM REGRINDER OPERATOR): Stable, well controlled; continue levothyroxine 50 mcg daily Assessment & Plan (09/24/2020 3:00 PM CDT): Recheck TSH today as previous TSH was mildly elevated, is still elevated will adjust levothyroxine given patient has complaints of generalized fatigue Assessment & Plan (06/16/2020 9:09 AM REGRINDER OPERATOR): Will recheck thyroid now that has been on medication for ~6 weeks Assessment & Plan (05/05/2020 3:36 PM REGRINDER OPERATOR): Mild elevation of TSH, patient has multiple symptoms including inability to lose weight, chronic fatigue and chronic tiredness Will start at low dose levothyroxine 25 mcg, will recheck TSH in approximately 6 weeks Arthritis 03/24/2020 DM2 (diabetes mellitus, type 2) 03/24/2020 Assessment & Plan (06/01/2022 3:30 PM REGRINDER OPERATOR): Not well controlled, A1c has always [...] diet Assessment & Plan (06/25/2021 10:31 AM REGRINDER OPERATOR): Stable, improving; patient A1c has been down trending to 7.5 last time, recheck A1c today Continue metformin XR 1000 mg daily Assessment & Plan (05/14/2021 1:28 PM REGRINDER OPERATOR): Stable, improving; last A1c was decreasing to 7.5 Encouraged patient to continue with low-carbohydrate diet; encourage education dietary changes as well as regular exercise Continue metformin 1000 mg daily Assessment & Plan (04/21/2021 2:52 PM REGRINDER OPERATOR): Stable, improving; patient reports he has been working on decreasing carbohydrates Has a decreased appetite well on Rybelsuswith minimal side effects Continue metformin 1000 mg daily with breakfast, Rybelsus 7 mg prior to breakfast Continue to monitor encourage continued decreased carbohydrate diet Recheck labs at follow-up appointment Assessment & Plan (03/20/2021 4:28 PM REGRINDER OPERATOR): Stable, well controlled, improving Patient reports [...] diet Assessment & Plan (05/05/2020 3:32 PM REGRINDER OPERATOR): Not well controlled, A1c is 7.7 [...] strength Assessment & Plan (03/26/2020 12:24 PM REGRINDER OPERATOR): Will check blood sugars and A1c [...] loss Assessment & Plan (05/14/2021 1:28 PM REGRINDER OPERATOR): Not well controlled, patient cannot tolerate statins; encouraged dietary changes order reduce cholesterol through low-fat high-fiber diet Assessment & Plan (05/05/2020 3:35 PM REGRINDER OPERATOR): Poorly controlled patient has elevated total and LDL cholesterol with knee depressed HDL cholesterol Triglycerides are also elevated at 254 Patient is unable to tolerate statin therapy due to muscular pain of thigh muscles Will encouraged diet and exercise as ways to maintain and modify cholesterol level Hypertension, essential 03/24/2020 Assessment & Plan (06/01/2022 3:30 PM REGRINDER OPERATOR): Stable, improving; blood pressure today in clinic was normal; patient reports home measurements are improving Continue amlodipine 10 mg daily, hydralazine 25 mg b.i.d., metoprolol 100 mg daily Losartan was previously on medication list, but not part of pharmacy was Given blood pressures appropriate, will continue to monitor, can rehab losartan if blood pressure increases Assessment & Plan (04/06/2022 11:47 AM REGRINDER OPERATOR): Stable, improving; most recent blood pressure was at target Continue losartan 100 mg daily, metoprolol 100 mg daily, amlodipine 10 mg daily Assessment & Plan (03/07/2022 9:40 AM REGRINDER OPERATOR): Not well controlled; patient reports that [...] daily Assessment & Plan (06/25/2021 10:30 AM REGRINDER OPERATOR): Not well controlled; blood pressure is elevated this morning prior to surgery, elevated again in office Given blood pressure was just normal on 06/09/2021, will increase lisinopril to 40 mg daily Encouraged patient to consistently take medications, with no missed or skipped doses Assessment & Plan (05/14/2021 1:27 PM REGRINDER OPERATOR): Not well controlled, blood pressure remains elevated; patient has been inconsistent with taking medications Will continue lisinopril 20 mg, follow-up at next appointment; if blood pressure still is elevated will adjust medication Assessment & Plan (03/20/2021 4:27 PM REGRINDER OPERATOR): Stable well controlled; blood pressure a [...] needed Assessment & Plan (05/05/2020 3:34 PM REGRINDER OPERATOR): Well controlled, patient's blood pressure is at target today Will continue with current therapies and continue to monitor patient Assessment & Plan (03/26/2020 12:24 PM REGRINDER OPERATOR): Stable well controlled, continue present management [...] arthroscopy Assessment & Plan (06/16/2020 9:09 AM REGRINDER OPERATOR): Not well controlled, had relief with cortisone injection, but now has worsening pain; relief last for about 3-4 weeks -has some instability of patella, able to 'adjust' patella to relieve pain and improve ROM Assessment & Plan (05/05/2020 3:34 PM REGRINDER OPERATOR): Stable, not controlled Patient is not able to consistently place weight on the Patient to follow-up with orthopedics further evaluation, based on recommendations may refer to physical therapy Assessment & Plan (03/26/2020 12:24 PM REGRINDER OPERATOR): Will start treatment with diclofenac cream, and use of the triamcinolone as necessary If needed will refer to physical therapy for further improvement in pain Polyneuropathy associated with underlying diseas e ([facility] 10/24/2019 Assessment & Plan (04/06/2022 11:44 AM REGRINDER OPERATOR): Continues to have numbness and weakness in bilateral legs; patient scheduled nerve conduction study Continue gabapentin 100 mg TID Continue with exercise, and strength training; noted to have decreased strength in hip flexors; normal with knee -if EMG is normal, consider CK or evaluation of polymyalgia or polymysitis Assessment & Plan (05/05/2020 3:34 PM REGRINDER OPERATOR): Patient has episodes of decreased balance [...] management Assessment & Plan (06/25/2021 10:32 AM REGRINDER OPERATOR): Not well controlled, patient continues to have frequent nighttime urination; encouraged patient to continue follow-up with Urology and reschedule surgery Joel roblestriq 50 mg daily Assessment & Plan (03/20/2021 4:30 PM REGRINDER OPERATOR): Patient continues to have increased urinary [...] materials from doctor or pharmacy Sometimes 01/17/2024 [facility] Utilities Answer Date Recorded In [...] often do you attend chur ch or uatsdin services? Never 07/31/2024 Do you belong to any clubs o r organizations such as hoahaoism groups, unions, fraternal or athletic groups, or [...] or slept in a mcc (including now)? No 08/29/2023 Housing Stability Vital Sign Answer Víctor e Recorded In the last 12 months, was t here a time when you were not able to pay the mortgage or rent on time? No 07/31/2024 In the past 12 months, how m any times have you moved where you were living? 1 07/31/2024 At any time in the past 12 m [facility], were you homeless or living in a mcc (including now)? No 07/31/2024 Personal Safety Answer [...] on file Legal Sex Male 12:23 AM REGRINDER OPERATOR Gender Identity Not on file Sexual [...] 09/26/2024 4:13 PM CDT Plan of Treatment Not on file Medical Devices Implanted Type Area Viscosity Worker Device Identifier Shelf Expiration Date Model / Serial / Lot [employer] Daysi Synergy Xd Monorail 3.5mm 12mm 144cm Delivery System 1 Access [id number] - [id number] Implanted:Qty: 1 on 08/29/2023 by Louie Lomeli MD at [facility] Stent [employer] Daysi 10/19/2024 [id number] / / [id number] Black Vascular Stent Coronary De Rx Cocr Xience Skypoint [id number] - [id number] Implanted:Qty: 1 on 12/17/2021 by Louie Lomeli MD at [facility] Black [employer] 08/24/2023 [id number] Black Vascular Stent Coronary De Rx Cocr Xience Skypoint [id number] - [id number] Implanted:Qty: 1 on 12/17/2021 by Louie Lomeli MD at [facility] [employer] 08/28/2023 [id number] [employer] Daysi Synergy 3mm 16mm 144cm Radiopaque 1 Access Port Inflation Lumen [id number] - [id number] Implanted:Qty: 1 on 12/22/2021 by Louie Lomeli MD at [facility] [place] [employer] Daysi 09/04/2022 [id number] / / [id number] Angio-Seal Vip 6fr Closere Device [id number] - [id number] Implanted:Qty: 1 on 12/22/2021 by Louie Lomeli MD at [facility] 09/29/2022 [id number] / / [id number] Procedures Procedure Name Priority Date/Time Associated Diagnosis [...] Americo Lopez M.D. RW: ANDRADE Report ID: [id number] Reading Location: [id number] Procedure Note Americo Lopez MD - 09/26/2024 [...] Americo Lopez M.D. RW: ANDRADE Report ID: [id number] Reading Location: [id number] Sohan Bueno MD IMG XR PROCEDURES Final [...] LAB BLOOD ORDERABLES Final Result [facility] ([place] [address] [facility] Department [facility] [place] [address] * (ABNORMAL) Differential, auto (09/26/2024 4:20 PM [...] Final Result [facility] ([place]) [address] [facility] [place] [address] * (ABNORMAL) CBC with auto differential (09/26/2024 4:20 PM CDT) WBC 16.12(H) 3.80 - 9.90 K/cumm Hgb 16.0 13.0 - 17.5 g/dL [facility] ([place]) Hct 48.7 38.9 - 50.3 % [facility] ([place]) Plt 192 150 - 400 K/cumm [facility] ([place]) MPV 10.2 9.1 - 12.3 fL [facility] ([place]) RBC 5.33 4.30 - 5.80 M/cumm [facility] ([place]) MCV 91.4 81.3 - 96.4 fL [facility] ([place]) MCH 30.0 27.1 - 33.3 pg [facility] ([place]) MCHC 32.9 32.3 - 35.7 g/dL [facility] ([place]) RDW CV 13.5 11.1 - 14.9 % [facility] ([place]) RDW SD 45.6 35.7 - 48.1 fL [facility] ([place]) NRBC abs 0.00 0.00 - 0.01 K/cumm [facility] ([place]) Blood 09/26/2024 4:20 PM CDT 09/26/2024 4:36 PM CDT us Jordan Villanueva MD LAB BLOOD ORDERABLES Final Result [facility] ([place]) [address] [facility] Department [facility] [place] [address] * (ABNORMAL) Comprehensive metabolic panel (09/26/2024 4:20 PM CDT) Sodium 141 135 - 145 mmol/L Potassium, pl 3.2(L) 3.3 - 4.9 mmol/L [facility] ([place]) Chloride 100 97 - 110 mmol/L [facility] CO2 24 22 - 32 mmol/L [facility] Anion gap 17(H) 2 - 15 mmol/L [facility] ([place]) BUN 39(H) 6 - 25 mg/dL [facility] ([place]) Creatinine 1.61(H) 0.80 - 1.30 mg/dL [facility] Glucose 217(H) 70 - 199 mg/dL [facility] [...] Final Result [facility] ([place]) [address] [facility] Department [place] [address] * (ABNORMAL) eGFR (08/10/2024 11:58 AM CDT) [...] BLOOD ORDERABLES Final R esult [facility] ([place] [address] [facility] Department [place] [facility] [place] [address] * (ABNORMAL) Differential, auto (08/10/2024 11:58 AM [...] BLOOD ORDERABLES Final R esult [facility] ([place]) [address] [facility] [place] [address] * (ABNORMAL) CBC with auto differential (08/10/2024 [...] ORDERABLES Final R esult Performing Organization Address City/[facility]/ZIP Co de Phone Number [facility] ([place]) 1 [facility] [employer] [place] [address] * Erythrocyte sedimentation rate (08/10/2024 11:58 AM CDT) Erythrocyte sedimentation rate 11 1 - 20 mm/hr Blood 08/10/2024 11:5 8 AM CDT 08/10/2024 12:00 PM CDT Stanley RIZVI LAB BLOOD ORDERABLES Final R esult Performing Organization Address [facility] Co de Phone Number [facility] ([place]) 1 [facility] [employer] [place] [address] * (ABNORMAL) CRP (acute phase) (08/10/2024 11:58 AM CDT) CRP 19.1(H) <=10.0 mg/L Blood 08/10/2024 11:5 8 AM CDT 08/10/2024 12:00 PM CDT Stanley RIZVI LAB BLOOD ORDERABLES Final R esult Performing Organization Address City/[facility] Co de Phone Number [facility] ([place]) 1 [facility] [employer] [place] [address] * (ABNORMAL) Uric acid (08/10/2024 11:58 AM CDT) Uric acid 8.8(H) 3.0 - 8.0 mg/dL Blood 08/10/2024 11:5 8 AM CDT 08/10/2024 12:00 PM CDT us Stanley RIZVI LAB BLOOD ORDERABLES Final R esult [facility] ([place]) [address] [facility] [employer], [place] [id number] * (ABNORMAL) Comprehensive metabolic panel (08/10/2024 11:58 [...] BLOOD ORDERABLES Final R esult [facility] [place] [address] [facility] Department [facility] [place] [address] * XR Foot Left 3 or More Views (08/10/2024 10:10 AM CDT) Anatomical Region Laterality Modality Lower Extremities, Foot Left Computed Radiography 08/10/2024 10:5 2 AM CDT Narrative 08/10/2024 10:58 AM CDT EXAM DESCRIPTION: XR FOOT LEFT 3 OR MORE VIEWS REASON FOR STUDY: pain to foot Pt to ED via [facility]. Per Pt he has had left [...] Lawrence Clark M.D. MZ: INGRID Report ID: [id number] Reading Location: [id number] Procedure Note Lawrence Clark MD - 08/10/2024 EXAM DESCRIPTION: XR FOOT LEFT 3 OR MORE VIEWS REASON FOR STUDY: pain to foot Pt to ED via [facility]. Per Pt he has had left [...] Lawrence Clark M.D. MZ: INGRID Report ID: [id number] Reading Location: [place] [address] us Xavi Murray MD IMG XR PROCEDURES F inal Result * POCT glucose (08/02/2024 11:54 AM CDT) Glucose, POC 163 70 - 199 mg/dL Blood 08/02/2024 11:5 4 AM CDT 08/02/2024 11:54 AM CDT us Corey Russo MD LAB POCT ORDERABLES - DEVICE Fin al Result Performing Organization Address [facility] Co de Phone Number N[address] [employer] [place] [address] * POCT glucose (08/02/2024 8:05 AM CDT) Glucose, POC 123 70 - 199 mg/dL Blood 08/02/2024 8:05 AM CDT 08/02/2024 8:05 AM CDT Corey Russo MD LAB POCT ORDERABLES - DEVICE Fin al Result Performing Organization Address [facility] Co de Phone Number [facility] ([place]) 1 [facility] [employer] [place] [address] * (ABNORMAL) eGFR (08/02/2024 4:04 AM CDT) [...] LAB BLOOD ORDERABLES Fi nal Result [facility] ([place]) [address] [facility] Department of [facility] [place] [address] * (ABNORMAL) Differential, auto (08/02/2024 4:04 AM CDT) Pathologist [facility] Neutrophil abs 6.45 1.50 - 6.50 K/cumm [...] on 2017. Imm gran pct 3.8 % [facility] ([place]) Comment: Interpretive Data Percent cell count reference ranges are not reported, since discordance with absolute values may lead to misinterpretation of CBC data. Current Interpretive Data was last revised on 2017. Lymphocyte pct 13.7 % [facility] ([place]) Comment: Interpretive Data Percent cell count reference ranges are not reported, since discordance with absolute values may lead to misinterpretation of CBC data. Current Interpretive Data was last revised on 2017. Monocyte pct 8.1 % [facility] ([place]) Comment: Interpretive Data Percent cell count reference ranges are not reported, since discordance with absolute values may lead to misinterpretation of CBC data. Current Interpretive Data was last revised on 2017. Eosinophil pct 0.9 % [facility] ([place]) Comment: Interpretive Data Percent cell count reference ranges are not reported, since discordance with absolute values may lead to misinterpretation of CBC data. Current Interpretive Data was last revised on 2017. Basophil pct 0.8 % [facility] ([place]) Comment: Interpretive Data Percent cell count reference ranges are not reported, since discordance with absolute values may lead to misinterpretation of CBC data. Current Interpretive Data was last revised on 2017. Blood 08/02/2024 4:04 AM CDT 08/02/2024 5:08 AM CDT us Krystal Araujo MD LAB BLOOD ORDERABLES Fi nal Result JULIETA GUERRERO ([place]) 1 [facility] Department of Laboratories [employer], [place] [id number] * CBC with auto differential (08/02/2024 4:04 AM CDT) WBC 8.88 3.80 - 9.90 K/cumm Hgb 14.7 13.0 - 17.5 g/dL JULIETA GUERRERO ([place]) Hct 44.8 38.9 - 50.3 [...] NRBC abs 0.00 0.00 - 0.01 K/cumm [facility] ([place] Blood 08/02/2024 4:04 AM CDT 08/02/2024 5:08 AM CDT us Krystal Araujo MD LAB BLOOD ORDERABLES nal Result [facility] ([place]) 1 [facility] Department of Laboratories [employer], [place] [id number] * (ABNORMAL) Comprehensive metabolic panel (08/02/2024 4:04 AM CDT) Sodium 143 135 - 145 mmol/L Potassium, pl 3.4 3.3 - 4.9 mmol/L [facility] ([place] Chloride 106 97 - 110 mmol/L [facility] ([place] CO2 24 22 - 32 mmol/L [facility] ([place]) Anion gap 13 2 - 15 mmol/L [facility] ([place]) BUN 25 6 - 25 mg/dL [facility] ([place]) Creatinine 1.44(H) 0.80 - 1.30 mg/dL [facility] ([place]) Glucose 132 70 - 199 mg/dL [facility] ([place]) Comment: Interpretive [...] ORDERABLES Fi nal Result Performing Organization Address City/[facility]/ZIP Co de Phone Number JULIETA GUERRERO ([place]) 1 [facility] [employer] [place] [address] * POCT glucose (08/02/2024 1:52 AM CDT) Glucose, POC 130 70 - 199 mg/dL Blood 08/02/2024 1:52 AM CDT 08/02/2024 1:52 AM CDT us Corey Russo MD LAB POCT ORDERABLES - DEVICE Fin al Result Performing Organization Address City/[facility]/ZIP Co de Phone Number JULIETA [facility] ([place]) 1 [facility] [employer] [place] [address] * (ABNORMAL) Hemoglobin A1c (08/30/2023 2:23 AM CDT) Hgb A1C 6.3(H) 4.0 - 5.6 % Estimated Average Glucose 134 mg/dL JULIETA GUERRERO ([place]) Comment: The ADA recommends reporting an estimated Average Glucose (eAG) with all Hemoglobin A1c results using the equation derived from a study of 507 normal and diabetic adults. Minority populations were underrepresented and children were not included. (Diabetes Care 31:2920-8332, 2008). The eAG is not equivalent to a fasting glucose. Blood 08/30/2023 2:23 AM CDT 08/30/2023 12:50 PM CDT us Destiny Devi NP LAB BLOOD ORDERABLES Final R esult JULIETA GUERRERO ([place]) 1 [facility] Department of Laboratories [place] [address] * (ABNORMAL) Lipid panel (08/28/2023 8:27 PM [...] on 2017. Chol/HDL ratio 6 [facility]NE [facility] ([place]) Blood 08/28/2023 8:27 PM CDT 08/28/2023 10:13 PM CDT Jesus Payan MD LAB BLOOD ORDERABLES Final Re sult JULIETA GUERRERO ([place]) 1 [place] [address] * PSA screen (10/28/2021 2:47 PM CDT) PSA-Total 3.15 <=5.40 ng/mL [facility] ([place]) Comment: Interpretive Data AGE SEX [...] data last revised 21. Testing performed by: [address] [address] Blood 10/28/2021 2:47 PM CDT 10/28/2021 7:50 PM CDT us Sohail Gould MD LAB BLOOD ORDERABLES Holly l Result Performing Organization Address City/[facility]/ZIP Co de Phone Number JULIETA GUERRERO ([place]) 1 [place] [address] * (ABNORMAL) Albumin Creatinine Ratio, Urine (10/28/2021 2:47 PM CDT) Albumin Ur 713.6 mg/L [facility] Comment: Interpretive Data No reference range established. Current interpretive data was last revised 2018. Testing performed by: [address], [address] Creatinine Ur 343.1 mg/dL [facility] ([place]) Comment: Interpretive Data No reference range established. Current interpretive data was last revised 2018. Testing performed by: [facility], [address] [place] [address]., [address] Albumin Creatinine Ratio, Ur 208(H) 1 - 29 mg/g JULIETA GUERRERO ([place]) Comment:Testing performed by : [facility], [id number] [place] [address]., [address] Urine 10/28/2021 2:47 PM CDT 10/28/2021 9:10 PM CDT Sohail Gould MD LAB URINE ORDERABLES Holly l Result JULIETA GUERRERO ([place]) 1 [facility] Department of Laboratories [place] [address] * Stool DNA - Cologuard (11/30/2020) Scribed Stool DNA - Cologuard Negative EXTERNAL LAB Stool Historical Provider LAB BODY FLUIDS AND STOOL S ORDERABLES Final Result EXTERNAL LAB from Last 3 Months or Most Recently Relevant to Health Maintenance Insurance [facility] MEDICARE [facility]IC[facility] Address: [address] [address] [place] [address] [employer] [facility] MEDICARE ADVANTAGE [facility] MEDICARE Address: [facility] [address] [place] [address] [facility] MEDICARE ADVANTAGE [facility] MEDICARE Address: [address] [address] [place] [address] [facility] MDCR HMO REF [facility] MEDIC[facility] Address: [address] [address] [place] [address] [employer] Advance Directives For more information, please contact: [phone] * Full Code (Latest Code Status on [...] 8:46 PM 08/29/2023 4:46 PM Care Teams Commuter Train Operator Relationship Specialty Start Date End Date Melchor Woodard MD PCP - General Family Practice 07/30/22 Nicolas Jung MD Surgeon Orthopedic Surgery 08/05/21 Louie Lomeli MD Consulting Physician Cardiology 12/23/21 Jairo Sparrow MD [address] [place] [address] [place] [address] Consulting Physician Neurology 12/14/22
[2024-11-01 13:39] VITALS: BP 125/96; PULSE 74; RESP 18; TEMP 36.7; O2SAT 97
[2024-11-01 14:09] LABS: Hematocrit 49.7 % (42.0-52.0); Hemoglobin 16.2 g/dL (14.0-18.0); Immature Granulocyte Percent A 1.7 % (0-0.5); Lymphocytes Absolute Auto 1.32 K/mm3 (0.9-3.2); Mean Corpuscular HGB Conc 32.6 g/dl (32-36); Mean Corpuscular Hemoglobin 29.7 pg (26-34); Mean Corpuscular Volume 91.2 fl (80-100); Nucleated Red Blood Cells Absolute Auto 0.000 K/mm3 (0.0-0.012); Nucleated Red Blood Cells Perc 0.0 % (0.0-0.2); Platelet Count Result 184 k/mm3 (150-375); Red Blood Count 5.45 M/mm3 (4.6-6.20); White Blood Count 12.2 K/mm3 (4.5-10.0)
[2024-11-01 14:21] LABS: INR 1.0; Prothrombin Time 13.0 Seconds (11.1-14.7)
[2024-11-01 14:22] LABS: Partial Thromboplastin Time 27.7 Seconds (22.3-36.8)
[2024-11-01 14:23] LABS: Alanine Aminotransferase 25 U/L (6-50); Albumin Level 4.0 g/dL (3.5-5.1); Alkaline Phosphatase 87 U/L (38-126); Anion Gap 11 mmol/L (4-12); Aspartate Amino Transferase 27 U/L (17-59); Bilirubin,Total 0.4 mg/dL (0.2-1.3); Blood Urea Nitrogen 23 mg/dL (9-20); Calcium 9.3 mg/dL (8.4-10.2); Carbon Dioxide 26 mmol/L (22-30); Chloride 105 mmol/L (98-107); Estimated CRCL calculation 62 ml/min; Estimated Glomerular Filt Rate 57; Glucose 177 mg/dL (65-110); Lipase 142 U/L (23-300); Potassium 3.3 mmol/L (3.4-5.0); Sodium 142 mmol/L (137-145); Total Protein 6.9 g/dL (6.3-8.2)
[2024-11-01 14:35] LABS: Troponin I 0.017 ng/mL (0.000-0.034)
--- NOTE | 2024-11-01 15:25 | ED.CHESTPAIN ---
HPI - Chest Pain General Chief Complaint: Chest Pain <HANNAH Griffith Last Filed: 11/01/24 15:42> Stated Complaint: chest pain since 0900 <HANNAH Griffith Last Filed: 11/01/24 15:42> Time Seen by Provider: 11/01/24 15:25 <HANNAH Griffith Last Filed: 11/01/24 15:42> Focused HPI: Patient is a 74 y/o male, with PMH of CAD s/p 5 stents, who presents to the ED with c/o chest and back pain. Patient reports having pain throughout his mid back, radiating around to his chest since around 9:00 a.m. this morning. Denies aggravating or alleviating factors. Has not taken anything for meds. States he was previously prescribed nitroglycerin, but lost all of his normal medications today. States was keeping them in his car and cannot find them. 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 Has previously seen Dr. Lomeli with [facility]. Reports mild SOB, denies N/V, diaphoresis. Patient reports he was recently admitted here for dizziness, underwent neurologic work-up. Was discharged yesterday. States he has not been able to move around much since his discharge. GENERAL: Chronically ill appearing, obese with BMI of 38.0, and in no acute distress. HEAD: Normocephalic, atraumatic. CHEST: Clear to auscultation. ?No respiratory distress. HEART: Regular rate and rhythm.? NEURO: ?Alert and oriented x3. Patient screened in triage and initial orders placed.? ?Additional care and disposition to be based upon?diagnostic testing and treatment. <HANNAH Griffith Last Filed: 11/01/24 15:42> Source: patient <HANNAH Griffith Last Filed: 11/01/24 15:42> Mode of arrival: ambulatory <HANNAH Griffith Last Filed: 11/01/24 15:42> Limitations: no limitations <HANNAH Griffith Last Filed: 11/01/24 15:42> History of Present Illness HPI narrative: Agree with the above triage note. Patient is endorsing bilateral lower extremity edema he since he was discharged. Patient is also endorsing chronic vertigo. States he has had vertigo symptoms for the past 3 years. He describes it as a spinning sensation, better when he sits still and worse when he moves quickly. States he normally takes meclizine with improvement however he lost all of his medications yesterday. He lives at home with his 2 sisters. I did inquire about possible assisted living placement however patient declines and states he does not feel ready for this. Patient denies smoking. <Dinora Joe PA-C - Last Filed: 11/01/24 17:50> Related Data Home Medications: Home Medications ?Medication ?Instructions ?Recorded ?Confirmed ?Last Taken ?Type aspirin 81 mg chewable tablet 81 mg PO DAILY 07/28/22 10/29/24 Unknown History (Leroy Chewable Low Dose Aspirin) clopidogrel 75 mg tablet (Plavix) 75 mg PO DAILY 11/23/23 10/29/24 Unknown History ezetimibe 10 mg tablet (Zetia) 10 mg PO DAILY 11/23/23 10/29/24 Unknown History isosorbide mononitrate 30 mg 30 mg PO DAILY 11/23/23 10/29/24 Unknown History tablet,extended release 24 hr <Xi Hong PA-C - Last Filed: 11/01/24 15:42> Allergies/Adverse Reactions: Allergies Allergy/AdvReac Type Severity Reaction Status Date / Time ceftriaxone (From Rocephin) Allergy Unknown Nausea Verified 09/06/24 10:52 Nqidrub-IHL-AeG Reductase Allergy Unknown Unknown Verified 09/06/24 10:52 Inhibitor <Xi Hong PA-C - Last Filed: 11/01/24 15:42> Review of Systems Review of Systems: All systems reviewed & are unremarkable except as noted in HPI and below <Dinora Joe PA-C - Last Filed: 11/01/24 17:50> [facility] Past Medical History Medical History: Medical History Internal carotid artery stenosis Benign prostate hyperplasia Stage 3b chronic kidney disease Hypothyroidism Peripheral vascular disease Lumbar radiculopathy Peripheral neuropathy Hypertension Sleep apnea Type 2 diabetes mellitus <Xi Hong PA-C - Last Filed: 11/01/24 15:42> Surgical History Surgical History: Surgical History History of tonsillectomy History of knee surgery History of coronary artery stent placement <Xi Hong PA-C - Last Filed: 11/01/24 15:42> Family History Family History: Family History Father , natural causes. Heart disease Hypertension Mother No problems noted. Sibling Acute myocardial infarction <Xi Hong PA-C - Last Filed: 11/01/24 15:42> Social History Social History: Social History Social History: Surrogate medical decision maker: Kandice Arceo, daughter ([phone]). Code status: Full code. Smoking packs per day: 3 Smoking cigarettes per day: 60.0 Smoking status: Former smoker Tobacco type: cigarettes Second hand tobacco smoke exposure: No Alcohol intake: never Substance use: never Substance use type: does not use Do You Feel Safe in your Home?: Yes Lack of Transportation: No Lack of Food: Never True Current Housing: I Have Housing Concerned About Future Housing: No Difficulty Paying Gas/Electric Bills: No Difficulty Paying for Meds: No Currently Unemployed: No Education: High School Diploma/GED Difficulty w/ Childcare or Family Care: No Living arrangements: with family Occupation/Education: retired 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 Spiritual care concerns: No <Xi Hong PA-C - Last Filed: 11/01/24 15:42> Exam Narrative: GENERAL: Well-appearing, well-nourished, and in no acute distress. HEAD: Normocephalic, atraumatic. EYES: PERRLA, EOMI. ENT: Nares clear, no rhinorrhea or epistaxis. Mucous membranes moist. Bilateral TMs with mild injection, otherwise normal, nonbulging with normal canals NECK: Supple. CHEST: Clear to auscultation. No respiratory distress. HEART: Regular rate and rhythm. No murmur heard. Normal peripheral pulses. ABDOMEN: Soft, nontender, nondistended, normal active bowel sounds. EXTREMITIES: Normal range of motion. Trace bilateral lower extremity edema SKIN: Warm, dry, no rash. NEURO: No focal deficits. Alert and oriented x4. Cranial nerves 2-12 intact. Strength 5/5 in BUE and BLE. Sensation intact throughout <HANNAH Feliz Last Filed: 11/01/24 17:50> Course Vital Signs Vital signs: Vital Signs Temperature 98.1 F 11/01/24 13:39 Pulse Rate 74 11/01/24 13:39 Respiratory Rate 18 11/01/24 13:39 Blood Pressure 125/96 H 11/01/24 13:39 Pulse Oximetry 97 11/01/24 13:39 Oxygen Delivery Room Air 11/01/24 13:39 Temperature 98.1 F 11/01/24 13:39 Pulse Rate 63 11/01/24 17:04 Respiratory Rate 15 11/01/24 17:04 Blood Pressure 146/74 H 11/01/24 17:04 Pulse Oximetry 97 11/01/24 17:04 Oxygen Delivery Room Air 11/01/24 17:04 <HANNAH Griffith Last Filed: 11/01/24 15:42> Vital Signs Temperature 98.1 F 11/01/24 13:39 Pulse Rate 74 11/01/24 13:39 Respiratory Rate 18 11/01/24 13:39 Blood Pressure 125/96 H 11/01/24 13:39 Pulse Oximetry 97 11/01/24 13:39 Oxygen Delivery Room Air 11/01/24 13:39 Temperature 98.1 F 11/01/24 13:39 Pulse Rate 63 11/01/24 17:04 Respiratory Rate 15 11/01/24 17:04 Blood Pressure 146/74 H 11/01/24 17:04 Pulse Oximetry 97 11/01/24 17:04 Oxygen Delivery Room Air 11/01/24 17:04 <HANNAH Feliz Filed: 11/01/24 17:50> MDM - Chest Pain MDM Narrative Medical decision making narrative: MSE by STACIE in triage. <Xi Hong PA-C - Last Filed: 11/01/24 15:42> MSE by STACIE in triage. 74-year-old male with history of CAD s/p 5 stent placement, hypothyroidism, type 2 diabetes, PVD, hypertension, DM with CKD presents to emergency department for chest pain that started at 9:00 a.m.. Also reporting acute on chronic vertigo. See HPI for further history. Vitals are stable. Exam is notable for the above. EKG shows sinus rhythm with rate of 73 ppm, LAD, normal AK interval, normal QRS duration, normal QTC, nonspecific ST and T-wave deviation with no acute changes. Initial troponin is 0.017. Lab work with leukocytosis of 12.2, no anemia. Chemistries with mild hypokalemia 3.3 which is been orally repleted. Magnesium pending. BNP mildly elevated at 513 which is actually increased from 7O2 on 10/28/2024. He does have mild bilateral lower extremity edema, will provide small dose of Lasix. Chest x-ray shows no acute cardiopulmonary findings. D-dimer within normal limits, wells score is low risk. Patient updated on results. Heart score is 5. Plan to admit for chest pain. Discussed with hospitalist CONFERENCE COORDINATOR, Lorelei, who accepts admission. <Dniora Joe PA-C - Last Filed: 11/01/24 17:50> Lab Data Result diagrams: 11/01/24 14:00 11/01/24 14:00 <Xi Hong PA-C - Last Filed: 11/01/24 15:42> Labs: Lab Results 11/01/24 11/01/24 Range/Units 14:00 17:20 WBC 12.2 H (4.5-10.0) K/mm3 RBC 5.45 (4.6-6.20) M/mm3 Hgb 16.2 (14.0-18.0) g/dL Hct 49.7 (42.0-52.0) % MCV 91.2 (80-100) fl MCH 29.7 (26-34) pg MCHC 32.6 (32-36) g/dl RDW 14.2 (11.5-14.5) % Plt Count 184 (150-375) k/mm3 MPV 9.7 (7.4-10.4) fl Immature Gran % (Auto) 1.7 H (0-0.5) % Neut % (Auto) 79.4 H (45.5-73.1) % Lymph % (Auto) 10.8 L (18.3-44.2) % Waller % (Auto) 7.0 (2.6-8.5) % Eos % (Auto) 0.7 (0-4.4) % Baso % (Auto) 0.4 (0.2-1.2) % Lymph # (Auto) 1.32 (0.9-3.2) K/mm3 Waller # (Auto) 0.9 H (0.1-0.6) K/mm3 Eos # (Auto) 0.1 (0-0.3) K/mm3 Baso # (Auto) 0.1 (0.0-0.1) K/mm3 Abs Immat Gran (auto) 0.21 H (0.00-0.031) K/mm3 Absolute Neuts (auto) 9.7 H (1.3-6.7) K/mm3 Absolute Nucleated RBC 0.000 (0.0-0.012) K/mm3 Nucleated RBC % 0.0 (0.0-0.2) % PT 13.0 (11.1-14.7) Seconds INR 1.0 APTT 27.7 (22.3-36.8) Seconds D-Dimer 0.37 (<0.48) ug/mL Sodium 142 (137-145) mmol/L Potassium 3.3 L (3.4-5.0) mmol/L Chloride 105 (98-107) mmol/L Carbon Dioxide 26 (22-30) mmol/L Anion Gap 11 (4-12) mmol/L BUN 23 H (9-20) mg/dL Creatinine 1.24 (0.7-1.3) mg/dL Estim Creat Clear Calc 62 ml/min Estimated GFR 57 L (59 - ) Glucose 177 H (65-110) mg/dL Calcium 9.3 (8.4-10.2) mg/dL Total Bilirubin 0.4 (0.2-1.3) mg/dL AST 27 (17-59) U/L ALT 25 (6-50) U/L Alkaline Phosphatase 87 (38-126) U/L Troponin I 0.017 Pending (0.000-0.034) ng/mL NT-Pro-B Natriuret Pep 513 H (19.9-100) pg/mL Total Protein 6.9 (6.3-8.2) g/dL Albumin 4.0 (3.5-5.1) g/dL Lipase 142 (23-300) U/L <Xi Hong PA-C - Last Filed: 11/01/24 15:42> Lab Results 11/01/24 11/01/24 Range/Units 14:00 17:20 WBC 12.2 H (4.5-10.0) K/mm3 RBC 5.45 (4.6-6.20) M/mm3 Hgb 16.2 (14.0-18.0) g/dL Hct 49.7 (42.0-52.0) % MCV 91.2 (80-100) fl MCH 29.7 (26-34) pg MCHC 32.6 (32-36) g/dl RDW 14.2 (11.5-14.5) % Plt Count 184 (150-375) k/mm3 MPV 9.7 (7.4-10.4) fl Immature Gran % (Auto) 1.7 H (0-0.5) % Neut % (Auto) 79.4 H (45.5-73.1) % Lymph % (Auto) 10.8 L (18.3-44.2) % Waller % (Auto) 7.0 (2.6-8.5) % Eos % (Auto) 0.7 (0-4.4) % Baso % (Auto) 0.4 (0.2-1.2) % Lymph # (Auto) 1.32 (0.9-3.2) K/mm3 Waller # (Auto) 0.9 H (0.1-0.6) K/mm3 Eos # (Auto) 0.1 (0-0.3) K/mm3 Baso # (Auto) 0.1 (0.0-0.1) K/mm3 Abs Immat Gran (auto) 0.21 H (0.00-0.031) K/mm3 Absolute Neuts (auto) 9.7 H (1.3-6.7) K/mm3 Absolute Nucleated RBC 0.000 (0.0-0.012) K/mm3 Nucleated RBC % 0.0 (0.0-0.2) % PT 13.0 (11.1-14.7) Seconds INR 1.0 APTT 27.7 (22.3-36.8) Seconds D-Dimer 0.37 (<0.48) ug/mL Sodium 142 (137-145) mmol/L Potassium 3.3 L (3.4-5.0) mmol/L Chloride 105 (98-107) mmol/L Carbon Dioxide 26 (22-30) mmol/L Anion Gap 11 (4-12) mmol/L BUN 23 H (9-20) mg/dL Creatinine 1.24 (0.7-1.3) mg/dL Estim Creat Clear Calc 62 ml/min Estimated GFR 57 L (59 - ) Glucose 177 H (65-110) mg/dL Calcium 9.3 (8.4-10.2) mg/dL Total Bilirubin 0.4 (0.2-1.3) mg/dL AST 27 (17-59) U/L ALT 25 (6-50) U/L Alkaline Phosphatase 87 (38-126) U/L Troponin I 0.017 Pending (0.000-0.034) ng/mL NT-Pro-B Natriuret Pep 513 H (19.9-100) pg/mL Total Protein 6.9 (6.3-8.2) g/dL Albumin 4.0 (3.5-5.1) g/dL Lipase 142 (23-300) U/L <Dinora Joe PA-C - Last Filed: 11/01/24 17:50> Discharge Plan Discharge Clinical Impression: Chest pain, Hypokalemia, Bilateral leg edema <HANNAH Griffith Last Filed: 11/01/24 15:42> Patient Disposition: Still a Patient <HANNAH Griffith Last Filed: 11/01/24 15:42> Condition: Stable <HANNAH Griffith Last Filed: 11/01/24 15:42> Patient Language: Maldivian <HANNAH Griffith Last Filed: 11/01/24 15:42> Prescriptions: No Action isosorbide mononitrate 30 mg tablet extended release 24 hr 30 mg PO DAILY clopidogrel [Plavix] 75 mg tablet 75 mg PO DAILY ezetimibe [Zetia] 10 mg tablet 10 mg PO DAILY aspirin [Leroy Chewable Aspirin] 81 mg tablet,chewable 81 mg PO DAILY potassium chloride [K-Tab] 20 mEq tablet extended release 20 meq PO DAILY Qty: 3 0RF meclizine 12.5 mg tablet 12.5 mg PO DAILY PRN (Reason: dizziness) Qty: 30 0RF Gemtesa 75 mg tablet 75 mg PO DAILY Qty: 30 1RF gabapentin 100 mg capsule See Rx Instructions .ROUTE .COMPLEX Qty: 120 3RF Dose Instruction: TAKE ONE (1) CAPSULE BY MOUTH MORNING AND NOON, TAKE TWO (2) BY MOUTH NIGHTLY AT BEDTIME Rx Instructions: TAKE ONE (1) CAPSULE BY MOUTH MORNING AND NOON, TAKE TWO (2) BY MOUTH NIGHTLY AT BEDTIME metoprolol succinate 50 mg tablet extended release 24 hr See Rx Instructions .ROUTE .COMPLEX Qty: 90 1RF Dose Instruction: TAKE ONE (1) TABLET BY MOUTH DAILY Rx Instructions: TAKE ONE (1) TABLET BY MOUTH DAILY levothyroxine 50 mcg tablet See Rx Instructions .ROUTE .COMPLEX Qty: 90 1RF Dose Instruction: TAKE ONE (1) TABLET BY MOUTH DAILY Rx Instructions: TAKE ONE (1) TABLET BY MOUTH DAILY Jardiance 25 mg tablet See Rx Instructions .ROUTE .COMPLEX Qty: 90 1RF Dose Instruction: TAKE ONE (1) TABLET BY MOUTH DAILY Rx Instructions: TAKE ONE (1) TABLET BY MOUTH DAILY losartan 25 mg tablet See Rx Instructions .ROUTE .COMPLEX Qty: 90 1RF Dose Instruction: TAKE ONE (1) TABLET BY MOUTH EVERY DAY Rx Instructions: TAKE ONE (1) TABLET BY MOUTH EVERY DAY hydrochlorothiazide 25 mg tablet See Rx Instructions .ROUTE .COMPLEX Qty: 90 1RF Dose Instruction: TAKE ONE (1) TABLET BY MOUTH EVERY DAY Rx Instructions: TAKE ONE (1) TABLET BY MOUTH EVERY DAY <Xi Hong PA-C - Last Filed: 11/01/24 15:42> Follow-up/Referrals: Vicki Salmeron APRN [Primary Care Provider] - <JUAN A GriffithC - Last Filed: 11/01/24 15:42>
[2024-11-01 15:48] LABS: NT Pro B Type Natriuretic Pept 513 pg/mL (19.9-100)
--- NOTE | 2024-11-01 16:59 | ECG_ITS ---
Test Date: 2024-11-01 17:08:53 Measurements Intervals [place] Rate: 64 P: -75 CA: 131 QRS: -32 QRSD: 97 T: 79 QT: 435 QTc: 450 Interpretive Statements Ectopic atrial rhythm LEFT AXIS DEVIATION [QRS AXIS < -30] LEFT VENTRICULAR HYPERTROPHY AND ST-T CHANGE [VOLTAGE CRITERIA PLUS ST/T ABNORMALITY] nonspecific ST T wave changes Compared to ECG 11/01/2024 13:48:46 ectopic atrial rhythm has replaced sinus rhythm Electronically Signed On 11-02-2024 12:42:49 CDT by Louie Lomeli M.D.
[2024-11-01 17:00] VITALS: PULSE 64; O2SAT 100
[2024-11-01 17:04] VITALS: BP 146/74; PULSE 63; RESP 15; O2SAT 97
--- OUTSIDE RECORDS SUMMARY | 2024-11-01 17:17 | XMS_ITS | Encounter Summary ---
Author Organization [facility] Healthcare Address [address] [place] [address] Care Team Providers Care Medical Education Specialist Name Role Phone Nicolas Jung MD Unavailable [phone] Louie Lomeli MD Unavailable [phone] Melchor Woodard MD Primary Care Provider [phone] Jairo Sparrow MD Unavailable [phone] NavarreteMaria Eugenia quiñones [facility] Unavailable [phone] Encounter Details Date Type Department Care Team (Late st Contact Info) Description 06/02/[address] [facility] [address] [facility] [address] [place] [address] Jonathan Miranda MD [address] [place], [place] [id number] Social History Tobacco Use Types Packs/Day Years [...] week 02/04/2023 How often do you attend [facility] or jehovah's witness services? Never 02/04/2023 Do you belong to any clubs o r organizations such as hindu groups, unions, fraternal or athletic groups, or [...] or slept in a prison (including now)? Yes 02/04/2023 Personal Safety Answer Date Recorded Have you ever been in or are you currently in a harmful physical or emotional relationship or is someone making you feel afraid or unsafe? Denies 03/09/2023 Sex and Gender Information Value Date Recorded Sex Assigned at Not on file Legal Sex Male 12:23 AM SPORTS MANAGEMENT PROFESSOR Gender Identity Not on file Sexual [...] COVID: Suspected 06/12/2024 06/12/2024 06/12/2024 4:34 PM SPORTS MANAGEMENT PROFESSOR COVID: Suspected 07/30/2024 07/30/2024 07/30/2024 4:38 PM CDT documented as of this encounter Care Teams Medical Education Specialist Relationship Specialty Start Date End Date Melchor Woodard MD PCP - General Family Practice 07/30/22 Nicolas Jung MD Surgeon Orthopedic Surgery 08/05/21 Louie Lomeli MD Consulting Physician Cardiology 12/23/21 Jairo Sparrow MD [address] [place] [address] [address] [facility] [place] [address] Consulting Physician Neurology 12/14/22 Maria Eugenia Navarrete, [address] [place] [address] Pharmacist Pharmacy 03/12/24 03/12/24 documented as of this encounter
--- OUTSIDE RECORDS SUMMARY | 2024-11-01 17:17 | XMS_ITS | Clinical Summary ---
Author Organization [facility] Address [address] [place] [address] Care Team Providers Care Programming Engineer Name Role Phone Melchor Woodard MD Primary Care Provider [phone] Allergies Active Allergy Reactions Criticality Noted Date Comments Ceftriaxone Nausea and Vomiting Low 09/23/2021 Ejlcmzp-Ccd-Bcm Reductase Inhibitors Other (See Comments) Low 01/26/2018 [...] ZOSTER VACCINE Completed 03/19/2020, 11/2018, 03/27/[address] [facility] [place] [address] Care Teams Programming Engineer Relationship Specialty Start Date End Date Melchor Woodard MD PCP - General Family Practice 09/28/22
--- OUTSIDE RECORDS SUMMARY | 2024-11-01 17:17 | XMS_ITS | Encounter Summary ---
Author Organization [facility] Address [address] [place] [address] Phone Care Team Providers Care Local Driver Name Role Phone Mark De Los Santos MD Unavailable Unavailable Rand Tsang MD Unavailable Kim Benavidez WAREHOUSE DIRECTOR, MAKING MACHINE CATCHER Primary Care Provider + Reason for Visit * Reason Onset Date Comments Advice Only 10/08/2024 Dizziness 10/08/2024 Encounter Details Date Type Department Care Team (Late st Contact Info) Description 10/08/2024 Nurse Triage [facility] [address] [place] [address] Kim Benavidez, WAREHOUSE DIRECTOR, MAKING MACHINE CATCHER [address] [place] [address] Advice Only; Dizziness Social History Tobacco Use [...] Description 11/12/2024 12:00 PM CDT Office Visit [facility] [address] [place] [address] Kim Benavidez, WAREHOUSE DIRECTOR, MAKING MACHINE CATCHER [address] [place] [address] documented as of this encounter Visit Diagnoses Not on filedocumented in this encounter Additional Health Concerns Assessment Noted Time PHQ-9 Depression Total Score: 0 09/29/19 25 11:18 AM CDT documented as of this encounter Care Teams Local Driver Relationship Specialty Start Date End Date Kim Benavidez APRN, MAKING MACHINE CATCHER [address] [place] [address] PCP - General Advanced Practice Nurse 09/28/24 Mark De Los Santos MD Consulting Physician Urology 09/05/15 Rand Tsang MD Consulting Physician Dermatopathology 01/16/18 documented as of this encounter
--- OUTSIDE RECORDS SUMMARY | 2024-11-01 17:17 | XMS_ITS | Encounter Summary ---
Author Organization [facility] Address [address] [place] [address] Care Team Providers Care Mate First Name Role Phone Nicolas Jung MD Unavailable [phone] Louie Lomeli MD Unavailable Melchor Woodard MD Primary Care Provider [phone] Jairo Sparrow MD Unavailable [phone] Maria Eugenia Navarrete [facility] Unavailable [phone] Encounter Details Date Type Department Care Team (Late st Contact Info) Description 01/24/2023 Orders Only [facility] [address] [address] [address] [place] [address] Miah Rodrigues MA Pre-op testing [...] week 12/24/2021 How often do you attend [facility] or baptist services? Never 12/24/2021 Do you belong to any clubs o r organizations such as restorationist groups, unions, fraternal or athletic groups, or [...] or slept in a half-way (including now)? No 12/24/2021 Sex and Gender Information Value Date Recorded Sex Assigned at Not on file Legal Sex Male 12:23 AM SHIFT SUPERVISOR MELTING Gender Identity Not on file Sexual Orientation [...] COVID: Suspected 06/12/2024 06/12/2024 06/12/2024 4:34 PM SHIFT SUPERVISOR MELTING COVID: Suspected 07/30/2024 07/30/2024 07/30/2024 4:38 PM CDT documented as of this encounter Care Teams Mate First Relationship Specialty Start Date End Date Melchor Woodard MD PCP - General Family Practice 07/30/22 Nicolas Jung MD Surgeon Orthopedic Surgery 08/05/21 Louie Lomeli MD Consulting Physician Cardiology 12/23/21 Jairo Sparrow MD [address] [place] [address] [place] [address] Consulting Physician Neurology 12/14/22 Maria Eugenia Navarrete, [address] [place] [address] Pharmacist Pharmacy 03/12/24 03/12/24 documented as of this encounter
--- OUTSIDE RECORDS SUMMARY | 2024-11-01 17:17 | XMS_ITS | Clinical Summary ---
Author Organization [facility] Address [address] [place] [address] Care Team Providers Care Photo Offset Printer Name Role Phone Carlos Moran MD Primary Care Provider [phone] Source Comments [facility],non-owned Affiliates and Associated Physician Practices is amultiple site organization consisting of ambulatory clinics and hospital sitesin [place], [place], [place] and [place]. This disclosure is being madepursuant to the Care Everywhere program and may not contain all information available regarding this patient. 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 Gender Identity Not on file Sexual Orientation Not on file Last Filed Vital Signs Vital Sign Reading Time Taken Comments Blood Pressure 136/78 04/24/2017 10:32 AM PIPE FOREMAN Pulse 78 04/24/2017 10:32 AM PIPE FOREMAN Temperature 36.8 C (98.2 F) 04/24/2017 10:32 AM PIPE FOREMAN Respiratory Rate - - Oxygen Saturation - - Inhaled Oxygen Concentration - - Weight 104.8 kg (231 lb) 04/24/2017 10:32 AM PIPE FOREMAN Height 177.8 cm (5' 10) 04/24/2017 10:32 AM PIPE FOREMAN Body Mass Index 33.15 04/24/2017 10:32 AM PIPE FOREMAN Plan of Treatment Upcoming Encounters Date Type Department Care Team (Late st Contact Info) Description 12/20/2024 11:00 AM CDT Appointment [facility] [address] [address] Lisa Singh MD [address] [id number] Health Maintenance Due Date Last Done Comments [...] Comments LIPID PROFILE STAT 04/13/2024 3:21 PM PIPE FOREMAN from Last 3 Months or Most Recently Relevant to Health Maintenance Results * (ABNORMAL) LIPID PROFILE (04/13/2024 3:21 PM PIPE FOREMAN) Cholesterol 173 <200 mg/dL 04/13/2024 3:48 PM PIPE FOREMAN [facility] Triglycerides 179(H) <150 mg/dL 04/13/2024 3:48 PM PIPE FOREMAN [facility] HDL Cholesterol 26(L) >40 mg/dL 4 3:48 PM PIPE FOREMAN [facility] LDL Calculated 111 <130 mg/dL 04/13/2024 3:48 PM PIPE FOREMAN [facility] VLDL Calculated 36(H) <=30 mg/dL 4 3:48 PM PIPE FOREMAN [facility] Chol HDL Ratio 6.7(H) <4.5 04/13/2024 3:48 PM PIPE FOREMAN [facility] LDL/HDL Ratio 4.3 <5.0 04/13/2024 3:48 PM PIPE FOREMAN [facility] Blood BLOOD SPECIMEN / Unknown Venipuncture / Unknown 04/13/2024 3:21 PM PIPE FOREMAN 04/13/2024 3:25 PM PIPE FOREMAN [facility] - CHEMISTRY ORDERABLES Holly l Result [facility] [address] [place] [address] from Last 3 Months or Most Recently Relevant to Health Maintenance Insurance [employer] MANAGED MEDICARE ADV Care Teams Photo Offset Printer Relationship Specialty Start Date End Date Carlos Moran MD PCP - General Internal Medicine 04/24/17
--- OUTSIDE RECORDS SUMMARY | 2024-11-01 17:17 | XMS_ITS | Encounter Summary ---
Author Organization [facility] Address [address] [place] [address] Care Team Providers Care Car Salesman Name Role Phone Nicolas Jung MD Unavailable [phone] Louie Lomeli MD Unavailable [phone] Melchor Woodard MD Primary Care Provider [phone] Jairo Sparrow MD Unavailable [phone] Maria Eugenia Navarrete [facility] Unavailable [phone] Encounter Details Date Type Department Care Team (Late st Contact Info) Description 06/02/2023 Telephone [facility] [address] [place] [address] Jonathan Miranda MD [address] [place], [place] [id number] Social History Tobacco Use Types Packs/Day Years [...] How often do you attend chur or mu-ism services? Never 02/04/2023 Do you belong to any clubs o r organizations such as congregation groups, unions, fraternal or athletic groups, or [...] place to sleep or slept in a snf (including now)? Yes 02/04/2023 Personal Safety Answer Date Recorded Have you ever been in or are you currently in a harmful physical or emotional relationship or is someone making you feel afraid or unsafe? 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 Gender Identity Not on file Sexual Orientation [...] COVID: Suspected 06/12/2024 06/12/2024 06/12/2024 4:34 PM LEGAL SECRETARY COVID: Suspected 07/30/2024 07/30/2024 07/30/2024 4:38 PM CDT documented as of this encounter Care Teams Car Salesman Relationship Specialty Start Date End Date Melchor Woodard MD PCP - General Family Practice 07/30/22 Nicolas Jung MD Surgeon Orthopedic Surgery 08/05/21 Louie Lomeli MD Consulting Physician Cardiology 12/23/21 Jairo Sparrow MD [address] [place] [address] [address] [facility] [place] [address] Consulting Physician Neurology 12/14/22 Maria Eugenia Navarrete, [address] [place] [address] Pharmacist Pharmacy 03/12/24 03/12/24 documented as of this encounter
--- OUTSIDE RECORDS SUMMARY | 2024-11-01 17:17 | XMS_ITS | Continuity of Care Document ---
Author Organization [facility] Address [address] [place] [address] Phone Care Team Providers Care Shuttler Name Role Phone Vicky JOSE JUAN Kita [...] Diagnoses Date Provider Providers Copied on Encounter [facility], [address], [place], [place], [address], [place] tel:[phone] SEC Arnold[place] ECKERT Professional No Information 3 Vicky JOSE JUAN Kita. [address], [address], [place], [place], [address], [place]. 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 [facility] [address], [address], [place], [place], [address], [place]. tel:[phone] Referring Provider: Kita Perry OD L, [facility] [address], [place], [address] . tel:[phone] [facility], [facility] [address], [place], [place], [address], [place] tel:[phone] SEC [place]o ECKERT Professional Cataract Evaluation (chief complaint) Pseudophakia of right eyeCombined forms of age-related cataract, left eyeXT (exotropia)Pt osis of both eyelids 0 1 Waqar Pace. [address], [facility] [address], [place], [place], [address], [place]. tel:[phone] Referring Provider: Sanjeev Barker, [address] [facility] [address], [place], [address] . tel:[phone] Office/outpa tient Visit, [facility], [facility] [address], [place], [place], [address], [place] tel:[phone] SEC [place] ECKERT Professional WIE (chief complaint) Abrasion of right eyelid, initial encounterEdem a of right upper eyelid Oct-0 0 Waqar Pace. [address], [facility] [address], [place], [place], [address], [place]. tel:[phone] Referring Provider: Sanjeev Barker, [address], [place], [address] . tel:[phone] [facility], [address], [place], [place], [address], [place] tel:[phone] SEC [place] ECKERT Professional 1 month s/p PCIOL (chief complaint) Post op visit 0 Juan F Lam. [address] [facility], 6th Floor, [place], [address], [place]. tel:[phone] Referring Provider: Sanjeev Barker, [address], [place], [address] . tel:[phone] Office/outpa tient Visit, Est [facility], [address], [place], [place], [address], [place] tel:[phone] SEC Arnoldo ECKERT Professional WIE (chief complaint) Allergic conjunctiviti s of both eyes 0 Waqar Pace. [address], [address], [place], [place], [address], [place]. tel:[phone] Referring Provider: Sanjeev Barker, [address], [place], [address] . tel:[phone] [facility], [address], [place], [place], [address], [place] tel:[phone] SEC [place] ECKERT Professional 1 day s/p PCIOL (chief complaint) Post op visit 0 Waqar Pace. [address], [address], [place], [place], [address], [place]. tel:[phone] Referring Provider: Sanjeev Barker, [address], [place], [address] . tel:[phone] [facility], [address], [place], [place], [address], [place] tel:[phone] [facility] [place] No Information 0 Mcalpin Abelardo. [facility] [address], [address], [place], [place], [address], . tel:[phone] Referring Provider: Sanjeev Barker, [address] [facility] [address], [place], [address] . tel:[phone] [facility], [address] [place], [place] [address] [address], [place], [place], [address], tel:[phone] SEC [place] No Information 0 Annemarie Abelardo. [facility] [address], [address], [place], [place], [address], [place]. tel:[phone] Referring Provider: Sanjeev Barker, [address] [facility] [address], [place], [address] . tel:[phone] [facility], [address] [place] [address] [address], [place], [place], [address], tel:[phone] SEC [place] Professional Cataract evaluation (chief complaint) Post op visitCombined forms of age-related cataract, bilateral 0 Mcalpin Abelardo. [facility] [employer], [address], [place], [place], [address], [place]. tel:[phone] Referring Provider: Sanjeev Barker, [address] [facility] [address], [place], [address] . tel:[phone] [facility], [facility] [address], [place], [place], [address], [place] tel:[phone] SEC [place] Professional Cataract evaluation (chief complaint) Post op visit 0-201 9 Mcalpin Abelardo. [facility] [employer], [address], [place], [place], [address], . tel:[phone] Referring Provider: Sanjeev Barker, [address] [facility] [address], [place], [address] . tel:[phone] [facility], [address], [place], [place], [address], [place] tel:[phone] SEC Rebekah [place] 1 wk Pterygium excision po (chief complaint) Post op visit 9 Annemarie Zhou. [facility] [address], [address], [place], [place], [address], [place]. tel:[phone] Referring Provider: Sanjeev Barker, [address] [facility] [address], [place], [address] . tel:[phone] [facility], [address], [place], [place], [address], [place] tel:[phone] SEC [place] Pterygium excision (chief complaint) Post op visit 0 9 Annemarie Zhou. [facility] [address], [address], [place], [place], [address], [place]. tel:[phone] Referring Provider: Sanjeev Barker, [address] [facility] [address], [place], [address] . tel:[phone] [facility], [address], [place], [place], [address], [place] tel:[phone] [facility] [place] No Information 9 Annemarie Zhou. [facility] [address], [address], [place], [place], [address], [place]. tel:[phone] Referring Provider: Sanjeev Barker, [address] [facility] [address], [place], [address] . tel:[phone] Office/outpa tient Visit, Est [facility], [address], [place], [place], [address], [place] tel:[phone] SEC [place] Professional pterygium and cataract (chief complaint) Peripheral pterygium, progressive, left eyeCombined forms of age-related cataract, bilateral Oct- 9 Annemarie Zhou. [address], [address], [place], [place], [address], [place]. tel:[phone] Referring Provider: Sanjeev Barker, [address] [facility] [address], [place], [address] . tel:[phone] [facility], [address], [place], [place], [address], [place] [phone] SEC [place] Professional Complete Exam (chief complaint) Age-related nuclear cataract, bilateralPter ygium of left eyeAllergic conjunctiviti s of both eyes 9 Waqar Pace. [address] [facility], [facility] A, [place], [place], [address], [place]. tel:[phone] Referring Provider: Sanjeev Barker, [address] [facility] [address], [place], [address] . tel:[phone] [facility], [address], [place], [place], [address], [place] [phone] SEC [place] No Information 9 Asha JOSE JUAN Destiny. [address] [facility], [facility] A, [place], [address], . tel:[phone] Family History Family Member Type Diagnosis Age At Onset Problem (finding) Family history of Diabe prakash mellitus Payers Payer name Insurance type Covered republican ID Authoriza tion(s) AAR Medicare Complete [place] [id number] [place] [id number] Social History Type Description Quantity Date Captured [...]
--- OUTSIDE RECORDS SUMMARY | 2024-11-01 17:17 | XMS_ITS | Clinical Summary ---
Author Organization [facility] CENTRAL CALL C ENTER Address [address] [place] [address] Phone Care Team Providers Care Milling Planer Operator Name Role Phone Mark De Los Santos MD Unavailable Unavailable Rand Tsang MD Unavailable Kim Benavidez APRN, BELL RINGER Primary Care Provider + Allergies Active Allergy [...] 1 tablet daily for 5 days. Rx: [id number] Active meclizine (ANTIVERT) 25 MG Tablet Take 1 Tablet by mouth 3 times daily as needed for Dizziness. 30 Tablet 10/11/19 25 Active meclizine (ANTIVERT) 12.5 MG Tablet Take 12.5 mg by mouth every 8 hours as needed for Dizziness. 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 [address] [place] [address] Jairo Kelly MD Dizziness (Primary Dx) Discharge Disposition: Discharged to home or Selfcare 10/08/2024 Nurse Triage [facility] [address] [place] [address] Kmi Benavidez, HAIR SPINNING MACHINE OPERATOR, BELL RINGER Advice Only; Dizziness 10/08/2024 Travel 10/04/2024 1:43 PM CDT - 10/04/2024 3:19 PM CDT Emergency [facility] Emergency [address] [place] [address] Wade Ansari MD Hypokalemia Discharge Disposition: Discharged to home or Selfcare 10/04/2024 Travel 09/28/2024 11:00 AM CDT Office Visit [facility] [address] [place] [address] Kim Benavidez, HAIR SPINNING MACHINE OPERATOR, BELL RINGER Bronchitis (Primary Dx); Dizziness; Need for hepatitis C screening test; Obesity (BMI 35.0-39.9 without comorbidity); Diabetes mellitus type 2, noninsulin dependent (HCC); Cataract, unspecified cataract type, unspecified laterality Discharge Disposition: Discharged to home or Selfcare 09/28/2024 Travel 09/25/2024 11:30 AM CDT Home Care Visit [address] [address] Tere Paul, RN SN - OASIS DISCHARGE 09/25/2024 Home Care Visit [address] [address] Tere Paul RN CASE COMMUNICATION 09/11/2024 1:00 AM CDT Home Care Visit [address] [address] Laura Valero RN SN - HOME VISIT 08/30/2024 1:00 AM CDT Home Care Visit [address] [address] Tere Grier RN SN - HOME VISIT 08/24/2024 10:30 AM CDT Home Care Visit [address] [address] Tere Grier, ISABELL SN - HOME VISIT 08/24/2024 9:30 AM CDT Home Care Visit [address] [address] Renetta Alberts, PT PT - DISCIPLINE DISCHARGE 08/16/2024 2:30 PM CDT Home Care Visit [address] [address] Zunilda Bustos, LOCOMOTIVE REPAIRER DIESEL PT - HOME VISIT 08/16/2024 1:30 PM CDT Home Care Visit [address] [address] Tere Paul RN SN - HOME VISIT 08/16/[address] [address] Radha Mcnair RN 08/14/2024 2:30 PM CDT Home Care Visit [address] [address] Zunilda Bustos, LOCOMOTIVE REPAIRER DIESEL PT - HOME VISIT 08/09/2024 11:30 AM CDT Home Care Visit [address] [address] Rossi Ayala LPN SN - HOME VISIT 08/08/2024 Home Care Visit [address] [address] Antonina Miller OT TELEPHONE ENCOUNTER 08/07/2024 11:00 AM CDT Home Care Visit [address] [address] Tammy Weldon, Student PT - INITIAL EVALUATION 08/04/2024 2:00 PM CDT [facility] [address] [place] [address] Tere Grier, RN SN - OASIS START OF CARE 08/04/2024 Plan of Care Documentation [facility] [address] [place] [address] from Last 3 Months Immunizations Immunization Administration [...] Visit [facility] - Family Medicine [facility] [address] [place] [address] Kim Benavidez, HAIR SPINNING MACHINE OPERATOR, BELL RINGER [address] [place] [address] Health Maintenance Due Date Last Done Comments [...] 5.000 mIU/L 10/08/2024 12:34 PM CDT [facility] Blood Venipuncture / Unknown 10/08/2024 11:30 AM CDT 10/08/2024 11:48 AM CDT us Kim Benavidez HAIR SPINNING MACHINE OPERATOR, BELL RINGER CHEMISTRY ORDERABLES Fin al Result [facility] [address] [place] [address] * (ABNORMAL) HEMOGLOBIN A1C W/ ESTIMATED GLUCOSE (10/08/2024 11:30 AM CDT) HGB-A1C 7.8(H) 4.0 - 6.0 % 10/08/2024 12:10 PM CDT [facility] Est Average Glucose 177.2 mg/dL 10/08/2024 12:10 PM CDT [facility] Blood Venipuncture / Unknown 10/08/2024 11:30 AM CDT 10/08/2024 11:47 AM CDT Narrative [facility] - 10/08/2024 12:10 PM CDT HEMOGLOBIN A1C: DIABETIC PATIENTS: WELL-CONTROLLED: 6.2 - 7.0 INTERMEDIATE WELL-CONTROLLED: 7.0 - 9.0 POORLY-CONTROLLED: >9.0 Specimens containing greater than 5% of Hemoglobin F may result in lower than expected % HbA1C results. us Kim Benavidez APRN, BELL RINGER CHEMISTRY ORDERABLES Fin al Result [facility] [address] [place] [address] * (ABNORMAL) CBC WITH AUTO DIFFERENTIAL (10/08/2024 11:30 AM CDT) Only the most recent of2 resultswithin the time period is included. WBC 12.06(H) 4.00 - 12.00 10(3)/[facility] 10/08/2024 11:59 AM CDT [facility] RBC 5.23 4.40 - 5.80 10(6)/[facility] 10/08/2024 11:59 AM CDT [facility] HEMOGLOBIN (HGB) 16.0 13.0 - 16.5 g/dL 10/08/2024 11:59 AM CDT [facility] HEMATOCRIT (HCT) 48.4 38.0 - 50.0 % 10/08/2024 11:59 AM CDT [facility] MCV 92.5 82.0 - 96.0 fL 10/08/2024 11:59 AM CDT [facility] MCH 30.6 26.0 - 32.0 pg 10/08/2024 11:59 AM CDT [facility] MCHC 33.1 31.0 - 36.0 g/dL 10/08/2024 11:59 AM CDT [facility] PLATELET COUNT 187 140 - 440 10(3)/mcL 10/08/2024 11:59 AM CDT [facility] RDW 13.4 11.8 - 15.5 % 10/08/2024 11:59 AM CDT [facility] MPV 10.2 8.0 - 12.6 fL 10/08/2024 11:59 AM CDT [facility] NEUTROPHILS 82.9(H) 40.0 - 68.0 % 10/08/2024 11:59 AM CDT [facility] LYMPHOCYTES 10.0(L) 19.0 - 49.0 % 10/08/2024 11:59 AM CDT [facility] MONOCYTES 6.1 3.0 - 13.0 % 10/08/2024 11:59 AM CDT [facility] EOSINOPHILS 0.6 0.0 - 8.0 % 10/08/2024 11:59 AM CDT [facility] BASOPHILS 0.4 0.0 - 1.0 % 10/08/2024 11:59 AM CDT [facility] ABSOLUTE NEUTROPHILS 10.00(H) 1.40 - 5.30 10(3)/[facility] 10/08/2024 11:59 AM CDT [facility] ABSOLUTE LYMPHOCYTES 1.20 0.90 - 3.30 10(3)/[facility] 10/08/2024 11:59 AM CDT [facility] ABSOLUTE MONOCYTES 0.74 0.10 - 0.90 10(3)/[facility] 10/08/2024 11:59 AM CDT [facility] ABSOLUTE EOSINOPHIL 0.07 0.00 - 0.50 10(3)/[facility] 10/08/2024 11:59 AM CDT [facility] ABSOLUTE BASOPHILS 0.05 0.00 - 0.10 10(3)/[facility] 10/08/2024 11:59 AM CDT [facility] NRBC PER 100 WBC 0 10/09/19 11:59 AM CDT [facility] Blood Venipuncture / Unknown 10/08/2024 11:30 AM CDT 10/08/2024 11:48 AM CDT us Kim Benavidez HAIR SPINNING MACHINE OPERATOR, BELL RINGER HEMATOLOGY ORDERABLES Fi nal Result Performing Organization Address [facility]/ZIP Co de Phone Number [facility] [address] [place] [address] * VITAMIN B12 (10/08/2024 11:30 AM CDT) VITAMIN B12 323 213 - 816 pg/mL 10/08/2024 12:50 PM CDT [facility] Blood Venipuncture / Unknown 10/08/2024 11:30 AM CDT 10/08/2024 11:48 AM CDT Kim Benavidez HAIR SPINNING MACHINE OPERATOR, BELL RINGER CHEMISTRY ORDERABLES Fin al Result Performing Organization Address [facility] Co de Phone Number [facility] [address] [place] [address] * (ABNORMAL) LIPID PANEL (10/08/2024 11:30 AM CDT) CHOLESTEROL 182 <200 mg/dL 10/08/2024 12:21 PM CDT [facility] TRIGLYCERIDES 145 <150 mg/dL 10/08/2024 12:21 PM CDT [facility] HDL CHOLESTEROL 37(L) >40 mg/dL 12:21 PM CDT [facility] LDL 116 <130 mg/dL 10/08/2024 12:21 PM CDT [facility] VLDL 29 10 - 50 mg/dL 10/08/2024 12:21 PM CDT [facility] CHOL/HDL RATIO 4.9(H) 0.0 - 4.4 10/08/2024 12:21 PM CDT [facility] NON-HDL CHOLESTEROL 145(H) <130 mg/dL 10/08/2024 12:21 PM CDT [facility] IS THE PATIENT REQUIRED TO BE FASTING? Yes 10/08/2024 12:21 PM CDT [facility] HAS THE PATIENT BEEN FASTING? Yes 10/08/2024 12:21 PM CDT [facility] Blood Venipuncture / Unknown 10/08/2024 11:30 AM CDT 10/08/2024 11:48 AM CDT Kim Barker Pramod HAIR SPINNING MACHINE OPERATOR, BELL RINGER CHEMISTRY ORDERABLES Fin al Result [facility] [address] [facility] [place] [address] * HEPATITIS C ANTIBODY (10/08/2024 11:30 AM CDT) hepatitis C antibody 0.08 <1 S/CO 10/08/2024 9:54 PM CDT [facility] Comment: Signal/Cutoff ratio < 0.79 is Nondetected Signal/Cutoff ratio 0.80-0.99 is Grayzone Signal/Cutoff ratio > 0.99 is Detected Supplemental assays are recommended if signal/cutoff ratio is >/=1.00. Signal/cutoff ratio result >/= 5.00 is 97% predictive of positivity for recombinant immunoblot assay (RIBA) and will be reported to the [place] Department of Public Health as required. Blood Venipuncture / Unknown 10/08/2024 11:30 AM CDT 10/08/2024 11:48 AM CDT Kim Barker Pramod HAIR SPINNING MACHINE OPERATOR, BELL RINGER CHEMISTRY ORDERABLES Fin al Result Performing Organization Address City/[facility]/ZIP Co de Phone Number [facility] [address] [place] [address], * (ABNORMAL) FOLIC ACID (FOLATE) (10/08/2024 11:30 AM CDT) FOLATE 5.8(L) 7.0 - 31.4 ng/mL 10/08/2024 12:50 PM CDT [facility] IS THE PATIENT REQUIRED TO BE FASTING? No 10/08/2024 12:50 PM CDT [facility] Blood Venipuncture / Unknown 10/08/2024 11:30 AM CDT 10/08/2024 11:48 AM CDT us Kim Benavidez APRN, BELL RINGER CHEMISTRY ORDERABLES Fin al Result [facility] [address] [place] [address] * (ABNORMAL) CMP (COMPREHENSIVE METABOLIC PANEL) (10/08/2024 11:30 AM CDT) Only the most recent of2 resultswithin the time period is included. SODIUM 142 136 - 145 mmol/L 10/08/2024 12:21 PM CDT [facility] POTASSIUM 3.5 3.5 - 5.1 mmol/L 10/08/2024 12:21 PM CDT [facility] CHLORIDE 108(H) 98 - 107 mmol/L 10/08/2024 12:21 PM CDT [facility] CO2, VENOUS 24 22 - 30 mmol/L 10/08/2024 12:21 PM CDT [facility] ANION GAP 13.5 <18.0 mmol/L 10/08/2024 12:21 PM CDT [facility] GLUCOSE 140(H) 70 - 99 mg/dL 10/08/2024 12:21 PM CDT [facility] BUN 34(H) 8 - 26 mg/dL 10/08/2024 12:21 PM CDT [facility] CREATININE, BLOOD 1.44(H) 0.70 - 1.30 mg/dL 10/08/2024 12:21 PM CDT [facility] BUN/CREATININE RATIO 24(H) 12 - 20 ratio 10/08/2024 12:21 PM CDT [facility] TOTAL PROTEIN 6.4 6.0 - 8.0 g/dL 10/08/2024 12:21 PM CDT [facility] ALBUMIN 3.8 3.5 - 5.0 g/dL 10/08/2024 12:21 PM CDT [facility] A/G RATIO 1.5 1.0 - 2.2 10/08/2024 12:21 PM CDT [facility] CALCIUM 8.9 8.7 - 10.5 mg/dL 10/08/2024 12:21 PM CDT [facility] T BILI 0.4 0.2 - 1.2 mg/dL 10/08/2024 12:21 PM CDT [facility] SGOT (AST) 18 <43 U/L 10/08/2024 12:21 PM CDT [facility] SGPT (ALT) 13 <56 U/L 10/08/2024 12:21 PM CDT [facility] ALKALINE PHOSPHATASE 78 40 - 150 U/L 10/08/2024 12:21 PM CDT [facility] IS THE PATIENT REQUIRED TO BE FASTING? No 10/08/2024 12:21 PM CDT [facility] GFR, ESTIMATED 52(L) >=60 10/08/2024 12:21 PM CDT [facility] Comment: Creatinine Clearance is the preferred criteria for selecting drug dose adjustments in renally impaired patients. The GFR is provided as additional pertinent clinical information. GFR is reported in mL/min/1.73 sq m. Calculation based on the Chronic Kidney Disease Epidemiology Collaboration (CKD- EPI) equation refit without adjustment for race. GFR, EST. 58(L) >=60 025 12:21 PM CDT [facility] GFR, EST. NONAFRICAN 48(L) >=60 10/08/2024 12:21 PM CDT [facility] Blood Venipuncture / Unknown 10/08/2024 11:30 AM CDT 10/08/2024 11:48 AM CDT us Kim Benavidez HAIR SPINNING MACHINE OPERATOR, BELL RINGER CHEMISTRY ORDERABLES Fin al Result [facility] [address] [place] [address] * TROPONIN I, HIGH SENSITIVITY (HSTRP) (10/04/2024 2:54 PM CDT) Only the most recent of2 resultswithin the time period is included. TROPONIN I, HIGH SENSITIVITY- [place] 27 <=35 ng/L 10/04/2024 3:33 PM CDT [facility] Comment: High-sensitivity troponin I results are reported in ng/L making the result appear to be 1,000 times higher than the contemporary troponin I value which is reported in ng/ml. Results from [place]. Blood Venipuncture / Unknown 10/04/2024 2:54 PM CDT 10/04/2024 3:03 PM CDT us Wade Ansari MD CHEMISTRY ORDERABLES Final Result [facility] [address] [place] [address] * XR CHEST 2 VIEWS (10/04/2024 2:45 [...] Braydon Londono M.D. MM: MM Report ID: [id number] Reading Location: [id number] Procedure Note Braydon Londono MD - 10/04/2024 [...] Braydon Londono M.D. MM: MM Report ID: [id number] Reading Location: [id number] IMPRESSION: No acute pulmonary process. Wade Ansari MD IMG DIAGNOSTIC ORDERABLES Final Result * Gold Top Tube (10/04/2024 1:57 PM CDT) Blood No Phlebotomy Charged / Unknown 10/04/2024 1:57 PM CDT 10/04/2024 2:11 PM CDT Wade Ansari MD CHEMISTRY ORDERABLES Final Result Performing Organization Address [facility] Co de Phone Number [facility] [address] [place] [address] * Blue Top Tube (10/04/2024 1:57 PM CDT) Blood No Phlebotomy Charged / Unknown 10/04/2024 1:57 PM CDT 10/04/2024 2:11 PM CDT Wade Ansari MD HEMATOLOGY ORDERABLES Holly l Result Performing Organization Address City/[facility] Co de Phone Number [facility] [address] [place] [address] * EKG 12 LEAD (10/04/2024 1:43 PM CDT) Ventricular Rate 67 BPM EXTERNAL EKG Atrial Rate 67 BPM EXTERNAL EKG P-R Interval 188 ms EXTERNAL EKG QRS Duration 72 ms EXTERNAL EKG Q-T Duration 406 ms EXTERNAL EKG QTC CALCULATION 429 ms EXTERNAL EKG P [place] 21 degrees EXTERNAL EKG R [place] -35 degrees EXTERNAL EKG T [place] 101 degrees EXTERNAL EKG 10/04/2024 1:43 PM [...] ECG IS PRESENT Confirmed by Lio Lew ([id number]) on 10/05/2024 12:04:08 PM Narrative Procedure Note Lio Lew MD - 10/05/2024 IMPRESSION: Sinus rhythm with sinus arrhythmia with fusion complexes Left axis deviation Left ventricular hypertrophy with repolarization abnormality ( R in aVL) Inferior infarct , age undetermined Anterior infarct , age undetermined Abnormal ECG When compared with ECG of 22-JUN-2019 10:56, PREVIOUS ECG IS PRESENT Confirmed by Lio Lew ([id number]) on 10/05/2024 12:04:08 PM us Wade Ansari MD IMG ECG ORDERABLES Final R esult EXTERNAL EKG * EKG SCAN (10/04/2024 12:00 AM CDT) 10/04/2024 us Provider Scan IMG ECG ORDERABLES Final Result RESULTING AGENCY * (ABNORMAL) PSA DIAGNOSTIC,TOTAL (02/19/2019 10:38 AM CDT) PSA, TOTAL (PROSTATIC SPECIFIC ANTIGEN) 6.36(H) <=4.00 ng/mL 02/19/2019 1:24 PM CDT [facility] Blood specimen (specimen) Venipuncture / Unknown 02/19/2019 10:38 AM CDT 02/19/2019 12:34 PM CDT Narrative [facility] - 02/19/2019 1:24 PM CDT PSA NOTE: The PSA value should be used in conjunction with information available from clinical evaluation and other diagnostic procedures. Michelet Moran MD CHEMISTRY ORDERABLES Final Result [facility] [address] [place] [address] from Last 3 Months or Most Recently Relevant to Health Maintenance Insurance [facility]IC[facility] Advance Directives * Full Code (Latest Code Status on File) Date Activated Date Inactivated Comments 08/07/2024 2:22 PM Care Teams Milling Planer Operator Relationship Specialty Start Date End Date Kim Benavidez, HAIR SPINNING MACHINE OPERATOR, BELL RINGER [address] [place] [address] PCP - General Advanced Practice Nurse 09/28/24 Mark De Los Santos MD Consulting Physician Urology 09/05/15 Rand Tsang MD Consulting Physician Dermatopathology 01/16/18
--- OUTSIDE RECORDS SUMMARY | 2024-11-01 17:17 | XMS_ITS | Encounter Summary ---
Author Organization [facility] Address [address] [place] [address] Phone Care Team Providers Care Burglar Alarm Mechanic Name Role Phone Mark De Los Santos MD Unavailable Unavailable Rand Tsang MD Unavailable [phone] Carlos Moran MD Primary Care Provider [phone] Sohail Gould MD Primary Care Provider [phone] Vicki Salmeron APRN Primary Care Provider [phone] Kim Benavidez APRN, [facility] Primary Care Provider + Reason for Visit * Reason Comments Medication Refill Encounter Details Date Type Department Care Team (Late st Contact Info) Description 01/26/2021 Refill [facility] - Primary Care - [place] [address] [place] [address] Carlos Moran MD [address] [place] [address] Medication Refill Social History Tobacco [...] Office Visit [facility] [address] [place] [address] Kim Benavidez APRN, LIFE SCIENCE TAXONOMIST [address] [place] [address] documented as of this encounter Visit Diagnoses Not on filedocumented in this encounter Additional Health Concerns Assessment Noted Time PHQ-9 Depression Total Score: 0 07/13/19 20 10:00 AM CDT documented as of this encounter Care Teams Burglar Alarm Mechanic Relationship Specialty Start Date End Date Carlos Moran MD [address] [place] [address] PCP - General Internal Medicine 10/07/20 08/19/21 Sohail Gould MD [facility] [place] [address] PCP - General Family Medicine 08/20/21 08/15/24 Vicki Salmeron APRN [address] [place] [address] [place] [address] PCP - General Advanced Practice Nurse 08/16/24 Kim Benavidez APRN, LIFE SCIENCE TAXONOMIST [address] [place] [address] PCP - General Advanced Practice Nurse 09/28/24 Mark De Los Santos MD Consulting Physician Urology 09/05/15 Rand Tsang MD Consulting Physician Dermatopathology 01/16/18 documented as of this encounter
--- OUTSIDE RECORDS SUMMARY | 2024-11-01 17:17 | XMS_ITS | Encounter Summary ---
Author Organization [facility] Address [address] [place] [address] Phone Care Team Providers Care Chart Picker Name Role Phone Carlos Moran MD Primary Care Provider [phone] Mark De Los Santos MD Unavailable Unavailable Rand Tsang MD Unavailable [phone] Provider, None Primary Care Provider UnavailSohail Kc MD Primary Care Provider [phone] Carlos Moran MD Primary Care Provider [phone] Sohail Gould MD Primary Care Provider [phone] Vicki Salmeron APRN Primary Care Provider [phone] Kim Benavidez APRN, [facility] Primary Care Provider + Reason for Visit * Reason Comments Medication Refill Encounter Details Date Type Department Care Team (Late st Contact Info) Description 03/21/2020 Refill [facility] - Primary Care - [place] [address] [place] [address] Carlos Moran MD [address] [place] [address] Medication Refill Social History Tobacco [...] COVID-19? No / Unsure 03/13/2020 2:58 PM SALES REPRESENTATIVE BUSINESS COURSES documented as of this encounter Miscellaneous Notes * Telephone Encounter - Carlos Moran MD - 03/21/2020 10:53 AM SALES REPRESENTATIVE BUSINESS COURSES Refill request approved. S REPRESENTATIVE BUSINESS COURSES * Telephone Encounter - Tavia Pablo [facility] - 03/21/2020 10:42 AM SALES REPRESENTATIVE BUSINESS COURSES Medication failed the protocol, provider to review [...] Acute pain of left knee [facility] - Family [facility] Carlos Moran MD 1 month ago Cellulitis of mouth [facility] [place] Moran MD 1 month ago Polyneuropathy associated with underlying disease (HCC) [facility] [place] Moran MD 4 months ago Hypertension, essential [facility] Carlos Pathak MD 8 months ago Urinary pain [facility] - Carlos Pathak MD Upcoming Appointments Future Appointments In 1 month Fox Shearer MD [facility] - Neurology [facility] In 1 month Carlos Moran MD [facility], [place] SHOTGUN SHELL ASSEMBLY MACHINE ADJUSTER - Recent and Past Visits Recent Visits Date Type Provider Dept 02/28/20 Office Visit Carlos Moran, MD [facility] 02/18/20 Office Visit Carlos Moran, MD [facility] 02/05/20 Office Visit Carlos Moran, MD [facility] [address] 10/24/19 Office Visit Carlos Moran, MD [facility] 07/13/19 Office Visit Carlos Moran, MD [facility] 04/23/19 Office Visit Carlos Moran, MD [facility] 02/12/19 [facility] recent visits within past 460 days with a meds authorizing provider and meeting all other requirements Future Appointments Date Type Provider Dept 04/24/20 Appointment Carlos Moran MD [facility] Showing future appointments within next 90 days with a meds authorizing provider and meeting all other requirements S REPRESENTATIVE BUSINESS COURSES documented in this encounter Plan of Treatment Upcoming Encounters Date Type Department Care Team (Late st Contact Info) Description 11/12/2024 12:00 PM CDT Office Visit [facility] [place] [address] [place] [address] Kim Benavidez, BAND AID MACHINE OPERATOR, SOCIAL SERVICES ASSISTANT [address] [place] [address] documented as of this encounter Visit Diagnoses Not on filedocumented in this encounter Additional Health Concerns Assessment Noted Time PHQ-9 Depression Total Score: 0 07/13/19 10:00 AM CDT documented as of this encounter Care Teams Chart Picker Relationship Specialty Start Date End Date Carlos Moran MD [address] [facility] [place] [address] PCP - General Internal Medicine 01/28/15 04/21/20 Provider, None [place] PCP - General 04/22/20 08/04/20 Sohail Gould MD [address] [place] [address] PCP - General Family Medicine 08/05/20 10/06/20 Carlos Moran MD [address] [place] [address] PCP - General Internal Medicine 10/07/20 08/19/21 Sohail Gould MD [address] [place] [address] PCP - General Family Medicine 08/20/21 08/15/24 Vicki Salmeron APRN [address] [place] [address] PCP - General Advanced Practice Nurse 08/16/24 Kim Benavidez APRN, SOCIAL SERVICES ASSISTANT [address] [place] [address] PCP - General Advanced Practice Nurse 09/28/24 Mark De Los Santos MD [address] [place] [address] Consulting Physician Urology 09/05/15 Rand Tsnag MD [address] [place] [address] Consulting Physician Dermatopathology 01/16/18 documented as of this encounter
--- OUTSIDE RECORDS SUMMARY | 2024-11-01 17:17 | XMS_ITS | Encounter Summary ---
Author Organization [facility] Health Address [address] [facility] [place] [address] Care Team Providers Care Well Service Derrick Worker Name Role Phone Carlos Moran MD Primary Care Provider [phone] Encounter Details Date Type Department Care Team (Late Contact Info) Description 04/13/2024 Lab Requisition [facility] [address] [place] [address] [place] [address] Social History Tobacco Use Types Packs/Day Years Used Date Smoking Tobacco: Former Smokeless Tobacco: Never Alcohol Use Standard Drinks/Week Comments No 0 (1 standard drink = 0.6 oz pur e alcohol) Sex and Gender Information Value Date Recorded Sex Assigned at Not on file 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 Gender Identity Not on file Sexual Orientation Not on file documented as of this encounter Plan of Treatment Upcoming Encounters Date Type Department Care Team (Late Contact Info) Description 12/20/2024 11:00 AM CDT Appointment [facility] [address] [address] Lisa Singh MD [address] [phone] documented as of this encounter Procedures Procedure Name Priority Date/Time Associated Diagnosis Comments TSH REFLEX FREE T4 STAT 04/13/2024 3: 21 PM PLASTERING CONTRACTOR HEMOGLOBIN A1C STAT 04/13/2024 3:21 PM PLASTERING CONTRACTOR CBC W AUTO DIFFERENTIAL STAT 04/13/2024 3:21 PM PLASTERING CONTRACTOR COMPREHENSIVE METABOLIC PANEL STAT 04/13/2024 3:21 PM PLASTERING CONTRACTOR LIPID PROFILE STAT 04/13/2024 3:21 PM PLASTERING CONTRACTOR documented in this encounter Results * (ABNORMAL) HEMOGLOBIN A1C (04/13/2024 3:21 PM PLASTERING CONTRACTOR) Hemoglobin A1c 7.3(H) <5.7 % 04/13/2024 3:47 PM PLASTERING CONTRACTOR [facility] Estimated Average Glucose 163 mg/dL 04/13/2024 3:47 PM PLASTERING CONTRACTOR [facility] Blood BLOOD SPECIMEN / Unknown 04/13/2024 3:21 PM PLASTERING CONTRACTOR 04/13/2024 3:25 PM PLASTERING CONTRACTOR [facility] - 04/13/2024 3:47 PM PLASTERING CONTRACTOR HbA1c Interpretation: Normal: < 5.7% Pre-diabetes: 5.7-6.4% [...] LAB - CHEMISTRY ORDERABLES Holly lu Result [facility] [address] [place] [id number] * (ABNORMAL) LIPID PROFILE (04/13/2024 3:21 PM PLASTERING CONTRACTOR) Cholesterol 173 <200 mg/dL 04/13/2024 3:48 PM PLASTERING CONTRACTOR [facility] Triglycerides 179(H) <150 mg/dL 04/13/2024 3:48 PM PLASTERING CONTRACTOR [facility] HDL Cholesterol 26(L) >40 mg/dL 3:48 PM PLASTERING CONTRACTOR [facility] LDL Calculated 111 <130 mg/dL 04/13/2024 3:48 PM PLASTERING CONTRACTOR [facility] VLDL Calculated 36(H) <=30 mg/dL 3:48 PM PLASTERING CONTRACTOR [facility] Chol HDL Ratio 6.7(H) <4.5 04/13/2024 3:48 PM PLASTERING CONTRACTOR [facility] LDL/HDL Ratio 4.3 <5.0 04/13/2024 3:48 PM PLASTERING CONTRACTOR [facility] Blood BLOOD SPECIMEN / Unknown Venipuncture / Unknown 04/13/2024 3:21 PM PLASTERING CONTRACTOR 04/13/2024 3:25 PM PLASTERING CONTRACTOR [employer] LAB - CHEMISTRY ORDERABLES Holly l Result Performing Organization Address City/[facility]/ZIP Co de Phone Number [facility] [address] [place] [address] * TSH REFLEX FREE T4 (04/13/2024 3:21 PM PLASTERING CONTRACTOR) Pathologist [facility] TSH 3.335 0.350 - 4.940 uIU/mL 04/13/2024 4:06 PM PLASTERING CONTRACTOR [facility] Blood BLOOD SPECIMEN / Unknown Venipuncture / Unknown 04/13/2024 3:21 PM PLASTERING CONTRACTOR 04/13/2024 3:25 PM PLASTERING CONTRACTOR [employer] LAB - CHEMISTRY ORDERABLES Holly l Result [facility] [address] [place] [id number] * (ABNORMAL) COMPREHENSIVE METABOLIC PANEL (04/13/2024 3:21 PM PLASTERING CONTRACTOR) [facility] Glucose 193(H) 70 - 99 mg/dL [...] Unknown Venipuncture / Unknown 04/13/2024 3:21 PM PLASTERING CONTRACTOR 04/13/2024 3:25 PM [facility] LAB - CHEMISTRY ORDERABLES Holly l Result [facility] [address] [place] [address] * (ABNORMAL) CBC WITH DIFFERENTIAL (04/13/2024 3:21 PM PLASTERING CONTRACTOR) WBC 11.8(H) 4.0 - 10.7 x10E9/L 04/13/2024 [...] 0.0 - 1.0 % 04/13/2024 3:32 PM PLASTERING CONTRACTOR [facility] Neutrophil Absolute 9.32(H) 1.60 - 7.50 x10E9/L 04/13/2024 3:32 PM PLASTERING CONTRACTOR [facility] Lymphocyte Absolute 1.27 1.00 - 4.40 x10E9/L 04/13/2024 3:32 PM PLASTERING CONTRACTOR [facility] Monocyte Absolute 0.86 0.15 - 1.00 x10E9/L 04/13/2024 3:32 PM PLASTERING CONTRACTOR [facility] Eosinophil Absolute 0.18 0.00 - 0.60 x10E9/L 04/13/2024 3:32 PM PLASTERING CONTRACTOR [facility] Basophil Absolute 0.04 0.00 - 0.13 x10E9/L 04/13/2024 3:32 PM PLASTERING CONTRACTOR [facility] Blood BLOOD SPECIMEN / Unknown 04/13/2024 3:21 PM PLASTERING CONTRACTOR 04/13/2024 3:25 PM PLASTERING CONTRACTOR [facility] LAB - HEMATOLOGY ORDERABLES Fin al Result Performing Organization Address City/State/[facility] Co de Phone Number [facility] [address] [place], [place] [id number] documented in this encounter Visit Diagnoses Not on filedocumented in this encounter Care Teams Well Service Derrick Worker Relationship Specialty Start Date End Date Carlos Moran MD PCP - General Internal Medicine 04/24/17 documented as of this encounter
--- OUTSIDE RECORDS SUMMARY | 2024-11-01 17:17 | XMS_ITS | Encounter Summary ---
Author Organization [facility] Healthcare Address [address] [place] [address] Care Team Providers Care Seasoning Mixer Name Role Phone Nicolas Jung MD Unavailable [phone] Louie Lomeli MD Unavailable [phone] Melchor Woodard MD Primary Care Provider [phone] Jairo Sparrow MD Unavailable [phone] Encounter Details Date Type Department Care Team (Late st Contact Info) Description 08/09/2024 Documentation [facility] Case Management [address] [place] [address] Rodriguez Goldstein RN Social History Tobacco Use [...] materials from doctor or pharmacy Sometimes 01/17/2024 [facility] Utilities Answer Date Recorded In [...] often do you attend chur ch or voodoo services? 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 Gender Identity Not on file Sexual Orientation Not on file documented as of this encounter Plan of Treatment Not on file documented as of this encounter Visit Diagnoses Not on filedocumented in this encounter Care Teams Seasoning Mixer Relationship Specialty Start Date End Date Melchor Woodard MD PCP - General Family Practice 07/30/22 Nicolas Jung MD Surgeon Orthopedic Surgery 08/05/21 Louie Lomeli MD Consulting Physician Cardiology 12/23/21 Jairo Sparrow MD [address] [address] [place] [id number] Consulting Physician Neurology 12/14/22 documented as of this encounter
--- OUTSIDE RECORDS SUMMARY | 2024-11-01 17:18 | XMS_ITS | Clinical Summary ---
Author Organization [facility] [place] [facility] Address [address] [place] [place] [address] Care Team Providers Care Hydrometeorologist Name Role Phone Nicolas Jung MD Unavailable [phone] Louie Lomeli MD Unavailable [phone] Melchor Woodard MD Primary Care Provider [phone] Jairo Sparrow MD Unavailable [phone] Allergies Active Allergy Reactions Criticality Noted Date Comments Ceftriaxone Nausea only Low 09/23/2021 Zhrdybt-Jai-Hew Reductase Inhibitors Other (See comments) Low 01/26/2018 Generalized pain Medications losartan (COZAAR) 25 mg tablet Take 1 tablet (25 mg total) by mouth daily 07/29/19 23 Active levothyroxine (SYNTHROID) 50 mcg tablet Take 1 tablet (50 mcg total) by mouth mask designer before breakfast Active aspirin 81 mg enteric [...] 06/01/2022 Assessment & Plan (06/01/2022 3:29 PM RADIO TIME SALESPERSON): Worsening, patient reports symptoms are worse 1st thing in the morning, has to clean eyes before can open; fewer symptoms throughout the day; most consistent with allergic conjunctivitis Start azelastine eyedrops Diabetic neuropathy, type II diabetes mellitus 0 05/27/2022 LALITO (acute kidney injury) 03/10/2022 Obesity (BMI 30-39.9) 03/10/2022 Other chest pain 03/09/2022 Assessment & Plan (06/01/2022 3:28 PM RADIO TIME SALESPERSON): Continues to have episodes of chest pain, started in nature; can radiate to right-side of chest Patient reports some relief with ASA; has nitroglycerin Will continue to monitor; if negative cardio workup, consider esophageal spasms of source of pain Assessment & Plan (04/06/2022 11:47 AM RADIO TIME SALESPERSON): Reports pressure-like chest pain today, worsening fatigue [...] (12/29/2021): Added automatically from request for surgery [id number] Leukocytosis 12/19/2021 UTI (urinary tract infection) 12/19/2021 Coronary artery disease 12/18/2021 Overview (12/18/2021): Added automatically from request for surgery [id number] Assessment & Plan (03/07/2022 9:41 AM RADIO TIME SALESPERSON): Not well controlled, patient had stopped taking all medications, had elevated blood pressures today Encouraged patient to continue medications as prescribed Continue Brilinta 90 mg b.i.d., Zetia 10 mg daily Hypertensive crisis 12/16/2021 Assessment & Plan (12/17/2021 12:13 PM CDT): Present on admission, received Labetalol iv, currently resolved NSTEMI (non-ST elevated myocardial infarction) 0 12/16/2021 Overview (12/17/2021): Added automatically from request for surgery [id number] Assessment & Plan (01/10/2022 9:21 PM CDT): [...] Nasal saline spray (Simply saline, Little Remedies, [place], [place]) 2 second sprays or 2 squeezes into [...] (11/18/2020): Added automatically from request for surgery [id number] Assessment & Plan (03/20/2021 4:30 PM RADIO TIME SALESPERSON): Stable, patient waiting on improved A1c for [...] (11/18/2020): Added automatically from request for surgery [id number] Scar of vermilion border of upper lip 07/04/2020 Overview (07/04/2020): Referral to plastic surgery for evaluation and possible affects scar tissue Cicatrix 07/04/2020 Tension headache 06/30/2020 Assessment & Plan (06/25/2021 10:33 AM RADIO TIME SALESPERSON): Patient has recurrent left-sided tension headaches; likely secondary to pressure on muscles from lipoma Assessment & Plan (06/09/2021 1:59 PM RADIO TIME SALESPERSON): Patient has headache for the last 4-6 [...] nostril Assessment & Plan (06/30/2020 12:31 PM RADIO TIME SALESPERSON): Patient has severe left sided headache; reports worsened with looking down or leaning back in bed; may be related to sinuses vs tension type headache -given congestion may consider sinus pressure and will refer to ENT Chronic midline low back pain without sciatica 0 06/30/2020 Assessment & Plan (06/30/2020 12:33 PM RADIO TIME SALESPERSON): Not well controlled; likely worsened due to poor core strength; encouraged weight loss to reduce strain on lower back (has severe central adiposity) Will give patient core exercises to strengthen low back and abodmen Lipoma of neck 06/25/2020 Assessment & Plan (06/25/2021 10:32 AM RADIO TIME SALESPERSON): Not well controlled, patient has left-sided tension style headaches, S with noted changing position of head due to size of lipoma Patient benefit from surgical removal to help improve overall posture as well as potentially improved tension headaches Assessment & Plan (05/14/2021 1:29 PM RADIO TIME SALESPERSON): Patient has large lipoma on back left-sided neck; reports left-sided headaches, which may be contributed by lipoma putting pressure on muscles sugar causing tension headaches Referral to Plastic surgery for removal Assessment & Plan (03/20/2021 4:29 PM RADIO TIME SALESPERSON): Stable, Impacts patient ability to turn had; will continue monitor refer to surgery when appropriate Primary osteoarthritis of left knee 05/08/2020 Assessment & Plan (11/17/2021 3:53 PM CDT): Continues to have significant pain, has some symptom improvement, but limited range of motion and pain with movement Recent steroid injection Follow-up with orthopedics Assessment & Plan (04/21/2021 2:52 PM RADIO TIME SALESPERSON): Stable, continues with physical therapy which is [...] monitor Assessment & Plan (05/14/2021 1:29 PM RADIO TIME SALESPERSON): Improving, patient has walked about 12 lb since last visit; encouraged continued dietary changes, decreasing in take through portion control as well as lowering carbohydrate intake Encourage daily activity of 30 minutes of moderate intensity aerobic exercise daily Assessment & Plan (03/20/2021 4:29 PM RADIO TIME SALESPERSON): Weight is stable, no significant change; patient [...] week Assessment & Plan (05/05/2020 3:33 PM RADIO TIME SALESPERSON): Not well controlled, patient reports weight loss [...] daily Assessment & Plan (06/25/2021 10:31 AM RADIO TIME SALESPERSON): Stable, unclear control, patient reports inconsistent medications use Continue levothyroxine 50 mcg daily, check TSH today Assessment & Plan (04/21/2021 2:52 PM RADIO TIME SALESPERSON): Stable, well controlled; continue levothyroxine 50 mcg daily Assessment & Plan (03/20/2021 4:28 PM RADIO TIME SALESPERSON): Stable, well controlled; continue levothyroxine 50 mcg daily Assessment & Plan (09/24/2020 3:00 PM CDT): Recheck TSH today as previous TSH was mildly elevated, is still elevated will adjust levothyroxine given patient has complaints of generalized fatigue Assessment & Plan (06/16/2020 9:09 AM RADIO TIME SALESPERSON): Will recheck thyroid now that has been on medication for ~6 weeks Assessment & Plan (05/05/2020 3:36 PM RADIO TIME SALESPERSON): Mild elevation of TSH, patient has multiple symptoms including inability to lose weight, chronic fatigue and chronic tiredness Will start at low dose levothyroxine 25 mcg, will recheck TSH in approximately 6 weeks Arthritis 03/24/2020 DM2 (diabetes mellitus, type 2) 03/24/2020 Assessment & Plan (06/01/2022 3:30 PM RADIO TIME SALESPERSON): Not well controlled, A1c has always been [...] diet Assessment & Plan (06/25/2021 10:31 AM RADIO TIME SALESPERSON): Stable, improving; patient A1c has been down trending to 7.5 last time, recheck A1c today Continue metformin XR 1000 mg daily Assessment & Plan (05/14/2021 1:28 PM RADIO TIME SALESPERSON): Stable, improving; last A1c was decreasing to 7.5 Encouraged patient to continue with low-carbohydrate diet; encourage education dietary changes as well as regular exercise Continue metformin 1000 mg daily Assessment & Plan (04/21/2021 2:52 PM RADIO TIME SALESPERSON): Stable, improving; patient reports he has been working on decreasing carbohydrates Has a decreased appetite well on Rybelsuswith minimal side effects Continue metformin 1000 mg daily with breakfast, Rybelsus 7 mg prior to breakfast Continue to monitor encourage continued decreased carbohydrate diet Recheck labs at follow-up appointment Assessment & Plan (03/20/2021 4:28 PM RADIO TIME SALESPERSON): Stable, well controlled, improving Patient reports improved [...] diet Assessment & Plan (05/05/2020 3:32 PM RADIO TIME SALESPERSON): Not well controlled, A1c is 7.7 today [...] strength Assessment & Plan (03/26/2020 12:24 PM RADIO TIME SALESPERSON): Will check blood sugars and A1c to evaluate for control of diabetes on metformin Hyperlipidemia 03/24/2020 Assessment & Plan (12/17/2021 12:16 PM CDT): Pt is not on a statin due to intolerance LDL is 107. Started on Zetia per cardiology. Assessment & Plan (10/13/2021 2:34 PM CDT): Not well controlled, encouraged continued dietary changes and weight loss Assessment & Plan (05/14/2021 1:28 PM RADIO TIME SALESPERSON): Not well controlled, patient cannot tolerate statins; encouraged dietary changes order reduce cholesterol through low-fat high-fiber diet Assessment & Plan (05/05/2020 3:35 PM RADIO TIME SALESPERSON): Poorly controlled patient has elevated total and LDL cholesterol with knee depressed HDL cholesterol Triglycerides are also elevated at 254 Patient is unable to tolerate statin therapy due to muscular pain of thigh muscles Will encouraged diet and exercise as ways to maintain and modify cholesterol level Hypertension, essential 03/24/2020 Assessment & Plan (06/01/2022 3:30 PM RADIO TIME SALESPERSON): Stable, improving; blood pressure today in clinic was normal; patient reports home measurements are improving Continue amlodipine 10 mg daily, hydralazine 25 mg b.i.d., metoprolol 100 mg daily Losartan was previously on medication list, but not part of pharmacy was Given blood pressures appropriate, will continue to monitor, can rehab losartan if blood pressure increases Assessment & Plan (04/06/2022 11:47 AM RADIO TIME SALESPERSON): Stable, improving; most recent blood pressure was at target Continue losartan 100 mg daily, metoprolol 100 mg daily, amlodipine 10 mg daily Assessment & Plan (03/07/2022 9:40 AM RADIO TIME SALESPERSON): Not well controlled; patient reports that he [...] daily Assessment & Plan (06/25/2021 10:30 AM RADIO TIME SALESPERSON): Not well controlled; blood pressure is elevated this morning prior to surgery, elevated again in office Given blood pressure was just normal on 06/09/2021, will increase lisinopril to 40 mg daily Encouraged patient to consistently take medications, with no missed or skipped doses Assessment & Plan (05/14/2021 1:27 PM RADIO TIME SALESPERSON): Not well controlled, blood pressure remains elevated; patient has been inconsistent with taking medications Will continue lisinopril 20 mg, follow-up at next appointment; if blood pressure still is elevated will adjust medication Assessment & Plan (03/20/2021 4:27 PM RADIO TIME SALESPERSON): Stable well controlled; blood pressure a target; [...] needed Assessment & Plan (05/05/2020 3:34 PM RADIO TIME SALESPERSON): Well controlled, patient's blood pressure is at target today Will continue with current therapies and continue to monitor patient Assessment & Plan (03/26/2020 12:24 PM RADIO TIME SALESPERSON): Stable well controlled, continue present management Post-traumatic [...] arthroscopy Assessment & Plan (06/16/2020 9:09 AM RADIO TIME SALESPERSON): Not well controlled, had relief with cortisone injection, but now has worsening pain; relief last for about 3-4 weeks -has some instability of patella, able to 'adjust' patella to relieve pain and improve ROM Assessment & Plan (05/05/2020 3:34 PM RADIO TIME SALESPERSON): Stable, not controlled Patient is not able to consistently place weight on the Patient to follow-up with orthopedics further evaluation, based on recommendations may refer to physical therapy Assessment & Plan (03/26/2020 12:24 PM RADIO TIME SALESPERSON): Will start treatment with diclofenac cream, and use of the triamcinolone as necessary If needed will refer to physical therapy for further improvement in pain Polyneuropathy associated with underlying diseas e ([facility]) 10/24/2019 Assessment & Plan (04/06/2022 11:44 AM RADIO TIME SALESPERSON): Continues to have numbness and weakness in bilateral legs; patient scheduled nerve conduction study Continue gabapentin 100 mg TID Continue with exercise, and strength training; noted to have decreased strength in hip flexors; normal with knee -if EMG is normal, consider CK or evaluation of polymyalgia or polymysitis Assessment & Plan (05/05/2020 3:34 PM RADIO TIME SALESPERSON): Patient has episodes of decreased balance due [...] management Assessment & Plan (06/25/2021 10:32 AM RADIO TIME SALESPERSON): Not well controlled, patient continues to have frequent nighttime urination; encouraged patient to continue follow-up with Urology and reschedule surgery Continue myrbetriq 50 mg daily Assessment & Plan (03/20/2021 4:30 PM RADIO TIME SALESPERSON): Patient continues to have increased urinary frequency, [...] Department Care Team Description 10/01/2024 Orders Only [facility] Operating Room [address] [place] [id number] Jayshree Hopkins MD Snoring (Primary Dx); Type 2 diabetes mellitus with other specified complication, without long-term current use of insulin (HCC) 09/26/2024 11:35 PM CDT - 09/27/2024 12:07 AM CDT Emergency [facility] Emergency Department [address] [place] [address] Sohan Bueno MD Bronchitis (Primary Dx); Acute cough; Dysphagia, unspecified type Discharge Disposition: Left Against Medical Advice 09/17/2024 11:51 AM CDT - 09/17/2024 12:39 PM CDT Emergency [facility] Emergency Department [address] [place] [address] Gouty arthritis of left foot (Primary Dx) Discharge Disposition: Discharge to home or self care 08/13/2024 Orders Only [facility] [address] [place] [address] [address], [place] [address] Effie Avelar NP Dizziness and giddiness (Primary Dx) 08/13/2024 Telephone [facility] [address] [place] [address] [address] [place] [id number] Jairo Sparrow MD 08/10/2024 11:13 AM CDT - 08/10/2024 1:21 PM CDT [facility] Emergency Department [address] [place] [address] Gouty arthritis of left foot (Primary Dx) Discharge Disposition: Discharge to home or self care 08/09/2024 Documentation [facility] Case Management [address] [place] [address] Rodriguez Goldstein RN 07/30/2024 2:40 PM CDT - 08/02/2024 4:22 PM CDT Hospital Encounter [facility] Acute Medicine [address] [place] [address] Krystal Araujo MD Singh, Arjun, MD Dizziness [...] materials from doctor or pharmacy Sometimes 01/17/2024 [facility] Utilities Answer Date Recorded In the past 12 months has e [employer], gas, oil, or water [employer] threatened to shut off services in your [...] often do you attend chur ch or hindu services? Never 07/31/2024 Do you belong to any clubs o r organizations such as sabianist groups, unions, fraternal or athletic groups, or [...] on file Legal Sex Male 12:23 AM RADIO TIME SALESPERSON Gender Identity Not on file Sexual Orientation [...] Discontinued 10/28/2021 Medical Devices Implanted Type Area [employer] Manager Device Identifier Shelf Expiration Date Model / Serial / Lot [employer] Daysi Synergy Xd Monorail 3.5mm 12mm 144cm Delivery System 1 Access [id number] - [id number] Implanted:Qty: 1 on 08/29/2023 by Louie Lomeli MD at [facility] Stent [employer] Daysi 10/19/2024 [id number] / / [id number] Black Vascular Stent Coronary De Rx Cocr Xience Skypoint [id number] - [id number] Implanted:Qty: 1 on 12/17/2021 by Louie Lomeli MD at [facility] [employer] Vascular 08/24/2023 [id number] [employer] V[employer] Stent Coronary De Rx Cocr Xience Skypoint 3.63e00uv [id number] - [id number] Implanted:Qty: 1 on 12/17/2021 by Louie Lomeli MD at [facility] [employer]ascular 08/28/2023 [id number] [employer] Daysi Synergy 3mm 16mm 144cm Radiopaque 1 Access Port Inflation Lumen [id number] - [id number] Implanted:Qty: 1 on 12/22/2021 by Louie Lomeli MD at [facility] en-Gauge Daysi 09/04/2022 [id number] / / [id number] [employer] Angio-Seal Vip 6fr Closere Device [id number] - [id number] Implanted:Qty: 1 on 12/22/2021 by Louie Lomeli MD at [facility] [employer] 09/29/2022 [id number] / / [id number] Procedures Procedure Name Priority Date/Time Associated Diagnosis [...] Americo Lopez M.D. RW: ANDRADE Report ID: [id number] Reading Location: [id number] Procedure Note Americo Lopez MD - 09/26/2024 [...] Americo Lopez M.D. RW: ANDRADE Report ID: [id number] Reading Location: [id number] Sohan Bueno MD IMG XR PROCEDURES Final [...] Villanueva MD LAB BLOOD ORDERABLES Final Result [facility] ([place]) [address] [facility] Department [place] [address] * (ABNORMAL) Differential, auto (09/26/2024 4:20 PM [...] LAB BLOOD ORDERABLES Final Result [facility] ([place]) [address] [facility] Department [place] [address] * (ABNORMAL) CBC with auto differential (09/26/2024 4:20 PM CDT) WBC 16.12(H) 3.80 - 9.90 K/cumm Hgb 16.0 13.0 - 17.5 g/dL [facility] ([place]) Hct 48.7 38.9 - 50.3 % [facility] ([place]) Plt 192 150 - 400 K/cumm [facility] ([place]) MPV 10.2 9.1 - 12.3 fL [facility] ([place]) RBC 5.33 4.30 - 5.80 M/cumm [facility] ([place]) MCV 91.4 81.3 - 96.4 fL [facility] ([place]) MCH 30.0 27.1 - 33.3 pg [facility] ([place]) MCHC 32.9 32.3 - 35.7 g/dL [facility] ([place]) RDW CV 13.5 11.1 - 14.9 % [facility] ([place]) RDW SD 45.6 35.7 - 48.1 fL [facility] ([place]) NRBC abs 0.00 0.00 - 0.01 K/cumm [facility] ([place]) Blood 09/26/2024 4:20 PM CDT 09/26/2024 4:36 PM CDT us Jordan Villanueva MD LAB BLOOD ORDERABLES Final Result [facility] ([place]) [address] [facility] Department [place] [address] * (ABNORMAL) Comprehensive metabolic panel (09/26/2024 4:20 PM CDT) Sodium 141 135 - 145 mmol/L Potassium, pl 3.2(L) 3.3 - 4.9 mmol/L [facility] ([place]) Chloride 100 97 - 110 mmol/L [facility] ([place]) CO2 24 22 - 32 mmol/L [facility] ([place]) Anion gap 17(H) 2 - 15 mmol/L [facility] ([place]) BUN 39(H) 6 - 25 mg/dL [facility] ([place]) Creatinine 1.61(H) 0.80 - 1.30 mg/dL [facility] ([place]) Glucose 217(H) 70 - 199 mg/dL [facility] ([place]) Comment: Interpretive Data [...] Final Result [facility] ([place]) [address] [facility] Department of Laboratories [place], [place] [id number] * (ABNORMAL) eGFR (08/10/2024 11:58 AM CDT) [...] BLOOD ORDERABLES Final R esult [facility] ([place]) [address] [facility] Department [place] [address] * (ABNORMAL) Differential, auto (08/10/2024 11:58 AM [...] R esult [facility] ([place]) [address] [facility] Department [place] [address] * (ABNORMAL) CBC with auto differential (08/10/2024 [...] 14.2 11.1 - 14.9 % [facility] ([place]) RDW SD 47.7 35.7 - 48.1 fL [facility] ([place]) NRBC abs 0.00 0.00 - 0.01 K/cumm [facility] ([place]) Blood 08/10/2024 11:5 8 AM CDT 08/10/2024 12:00 PM CDT Stanley RIZVI LAB BLOOD ORDERABLES Final R esult [facility] ([place]) 1 [facility] [place] [address] * Erythrocyte sedimentation rate (08/10/2024 11:58 AM CDT) Erythrocyte sedimentation rate 11 1 - 20 mm/hr Blood 08/10/2024 11:5 8 AM CDT 08/10/2024 12:00 PM CDT Stanley RIZVI LAB BLOOD ORDERABLES Final R esult Performing Organization Address City/[facility]/ZIP Co de Phone Number [facility] ([place]) 1 [facility] [place] [address] * (ABNORMAL) CRP (acute phase) (08/10/2024 11:58 AM CDT) CRP 19.1(H) <=10.0 mg/L Blood 08/10/2024 11:5 8 AM CDT 08/10/2024 12:00 PM CDT Stanley RIZVI LAB BLOOD ORDERABLES Final R esult Performing Organization Address City/[facility]/ZIP Co de Phone Number [facility] ([place]) 1 [facility] [place] [address] * (ABNORMAL) Uric acid (08/10/2024 11:58 AM CDT) Uric acid 8.8(H) 3.0 - 8.0 mg/dL Blood 08/10/2024 11:5 8 AM CDT 08/10/2024 12:00 PM CDT Stanley RIZVI LAB BLOOD ORDERABLES Final R esult [facility] ([place]) [address] [facility] Department [place] [address] * (ABNORMAL) Comprehensive metabolic panel (08/10/2024 11:58 [...] [place]) Glucose 154 70 - 199 mg/dL [facility] Comment: Interpretive Data Fasting [...] R esult [facility] ([place]) [address] [facility] Department [place] [address] * XR Foot Left 3 or More Views (08/10/2024 10:10 AM CDT) Anatomical Region Laterality Modality Lower Extremities, Foot Left Computed Radiography 08/10/2024 10:5 2 AM CDT Narrative 08/10/2024 10:58 AM CDT EXAM DESCRIPTION: XR FOOT LEFT 3 OR MORE VIEWS REASON FOR STUDY: pain to foot Pt to ED via [facility]. Per Pt he has had left [...] Lawrence Clark M.D. MZ: INGRID Report ID: [id number] Reading Location: [id number] Procedure Note Lawrence Clark MD - 08/10/2024 EXAM DESCRIPTION: XR FOOT LEFT 3 OR MORE VIEWS REASON FOR STUDY: pain to foot Pt to ED via [facility]. Per Pt he has had left [...] Lawrence Clark M.D. MZ: INGRID Report ID: [id number] Reading Location: [place] [address] Xavi Murray MD IMG XR PROCEDURES F inal Result * POCT glucose (08/02/2024 11:54 AM CDT) Glucose, POC 163 70 - 199 mg/dL Blood 08/02/2024 11:5 4 AM CDT 08/02/2024 11:54 AM CDT Corey Russo MD LAB POCT ORDERABLES - DEVICE Fin al Result Performing Organization Address [facility]/[place] Co de Phone Number NAYANJUNAID [facility] ([place]) [address] [facility] Department [place] [address] * POCT glucose (08/02/2024 8:05 AM CDT) Glucose, POC 123 70 - 199 mg/dL Blood 08/02/2024 8:05 AM CDT 08/02/2024 8:05 AM CDT Corey Russo MD LAB POCT ORDERABLES - DEVICE Fin al Result Performing Organization Address [facility] Co de Phone Number [facility] ([place]) [address] [facility] Department [place] [address] * (ABNORMAL) eGFR (08/02/2024 4:04 AM CDT) Pathologist [facility] eGFR 52(L) >=60 mL/min/1. 73 m2 Comment: [...] LAB BLOOD ORDERABLES Fi nal Result [place] [place] 1 [facility] Department [place] [address] * (ABNORMAL) Differential, auto (08/02/2024 4:04 AM [...] BLOOD ORDERABLES Fi nal Result [facility] YOLANDA ([place]) [address] [facility] Department [place] [address] * CBC with auto differential (08/02/2024 4:04 [...] MD LAB BLOOD ORDERABLES Fi nal Result [facility] ([place]) [address] [facility] Department [place] [address] * (ABNORMAL) Comprehensive metabolic panel (08/02/2024 4:04 AM CDT) Sodium 143 135 - 145 mmol/L Potassium, pl 3.4 3.3 - 4.9 mmol/L [facility] ([place]) Chloride 106 97 - 110 mmol/L [facility] ([place]) CO2 24 22 - 32 mmol/L [facility] ([place]) Anion gap 13 2 - 15 mmol/L [facility] ([place]) BUN 25 6 - 25 mg/dL [facility] Creatinine 1.44(H) 0.80 - [...] ORDERABLES Fi nal Result Performing Organization Address City/[facility]/ZIP Co de Phone Number [facility] ([place]) 1 [facility] Department [place] [address] * POCT glucose (08/02/2024 1:52 AM CDT) Glucose, POC 130 70 - 199 mg/dL Blood 08/02/2024 1:52 AM CDT 08/02/2024 1:52 AM CDT us Corey Russo MD LAB POCT ORDERABLES - DEVICE Fin al Result Performing Organization Address City/[facility]/ZIP Co de Phone Number JULIETA GUERRERO ([place]) 1 [facility] Department [place] [address] * (ABNORMAL) Hemoglobin A1c (08/30/2023 2:23 AM CDT) Hgb A1C 6.3(H) 4.0 - 5.6 % Estimated Average Glucose 134 mg/dL [facility] ([place]) Comment: The ADA recommends reporting an estimated Average Glucose (eAG) with all Hemoglobin A1c results using the equation derived from a study of 507 normal and diabetic adults. Minority populations were underrepresented and children were not included. (Diabetes Care 31:9356-5727, 2008). The eAG is not equivalent to a fasting glucose. Blood 08/30/2023 2:23 AM CDT 08/30/2023 12:50 PM CDT Destiny Devi NP LAB BLOOD ORDERABLES Final R esult Performing Organization Address [facility]/[place] Co de Phone Number JULIETA GUERRERO ([place]) 1 [facility] [place] [address] * (ABNORMAL) Lipid panel (08/28/2023 8:27 PM CDT) Pathologist [facility] Cholesterol 149 30 - 199 mg/dL Comment: [...] on 2017. Triglycerides 229(H) <=149 mg/dL J[facility]ETA [facility] ([place]) Comment: Interpretive Data Ages < [...] on 2017. Chol/HDL ratio 6 CERNE R [facility] ([place]) Blood 08/28/2023 8:27 PM CDT 08/28/2023 10:13 PM CDT us Jesus Payan MD LAB BLOOD ORDERABLES Final Re sult [facility] ([place] 1 [facility] [place] [place] [address] * PSA screen (10/28/2021 2:47 PM CDT) PSA-Total 3.15 <=5.40 ng/mL [facility] ([place]) Comment: Interpretive Data AGE SEX REFERENCE INTERVAL [...] data last revised 21. Testing performed by: [facility], [address] [place] [address]., [id number] Blood 10/28/2021 2:47 PM CDT 10/28/2021 7:50 PM CDT us Sohail Gould MD LAB BLOOD ORDERABLES Holly l Result Performing Organization Address City/[facility]/ZIP Co de Phone Number [facility] ([place]) 1 [place] [address] * (ABNORMAL) Albumin Creatinine Ratio, Urine (10/28/2021 2:47 PM CDT) Albumin Ur 713.6 mg/L [facility] ([place]) Comment: Interpretive Data No reference range established. Current interpretive data was last revised 2018. Testing performed by: [facility], [address] [place] [address]., [id number] Creatinine Ur 343.1 mg/dL JULIETA GUERRERO ([place]) Comment: Interpretive Data No reference range established. Current interpretive data was last revised 2018. Testing performed by: [facility], [address] [place] [address]., [id number] Albumin Creatinine Ratio, Ur 208(H) 1 - 29 mg/g JULIETA GUERRERO ([place]) Comment:Testing performed by : [facility], [address] [place] [address]., [id number] Urine 10/28/2021 2:47 PM CDT 10/28/2021 9:10 PM CDT Sohail Gould MD LAB URINE ORDERABLES Holly l Result Performing Organization Address City/[facility]/ZIP Co de Phone Number JULIETA GUERRERO ([place]) 1 [facility] Department [place] [address] * Stool DNA - Cologuard (11/30/2020) Scribed Stool DNA - Cologuard Negative EXTERNAL LAB Stool Torri Provider LAB BODY FLUIDS AND STOOL S ORDERABLES Final Result Performing Organization Address City/[facility]/ZIP Co de Phone Number EXTERNAL LAB from Last 3 Months or Most Recently Relevant to Health Maintenance Insurance IDPA [facility] MEDICARE ADVANTAGE [employer] [facility] MEDICARE ADVANTAGE [id number] ADV[facility]AGE [facility] [place] [address] Advance Directives For more information, please contact: [phone] * Full Code (Latest Code Status on [...] 8:46 PM 08/29/2023 4:46 PM Care Teams Hydrometeorologist Relationship Specialty Start Date End Date Melchor Woodard MD PCP - General Family Practice 07/30/22 Nicolas Jung MD Surgeon Orthopedic Surgery 08/05/21 Louie Lomeli MD Consulting Physician Cardiology 12/23/21 Jairo Sparrow MD [address] [place] [address] [place] [address] Consulting Physician Neurology 12/14/22
--- OUTSIDE RECORDS SUMMARY | 2024-11-01 17:18 | XMS_ITS | Referral Summary ---
Author [place] [facility] [place] [facility] Address [address] [place] [facility] [address] Care Team Providers Care Aircraft Log Clerk Name Role Phone Nicolas Jung MD Unavailable [phone] Louie Lomeli MD Unavailable [phone] Melchor Woodard MD Primary Care Provider [phone] Jairo Sparrow MD Unavailable [phone] Encounters Date Type Department Care Team Description 10/01/2024 Orders Only [facility] Operating Room [facility] [place] [address] Jayshree Hopkins MD Snoring (Primary Dx); Type 2 diabetes mellitus with other specified complication, without long-term current use of insulin (HCC) 09/26/2024 11:35 PM CDT - 09/27/2024 12:07 AM CDT Emergency [facility] Emergency Department [address] [place] [id number] Sohan Beuno MD Bronchitis (Primary Dx); Acute cough; Dysphagia, unspecified type Discharge Disposition: Left Against Medical Advice 09/17/2024 11:51 AM CDT - 09/17/2024 12:39 PM T Emergency [facility] Emergency Department [address] [place] [address] Gouty arthritis of left foot (Primary Dx) Discharge Disposition: Discharge to home or self care 08/13/2024 Orders Only [facility] [place] [facility] [address] [place] [phone] Effie Avelar NP Dizziness and giddiness (Primary Dx) 08/13/2024 Telephone [facility] [place] [facility] [address] [place] [phone] Jairo Sparrow MD 08/10/2024 11:13 AM CDT - 08/10/2024 1:21 PM CDT Emergency [facility] Emergency Department [address] [place] [address] Gouty arthritis of left foot (Primary Dx) Discharge Disposition: Discharge to home or self care 08/09/2024 Documentation [facility] [address] [place] [address] Rodriguez Goldstein RN 07/30/2024 2:40 PM CDT - 08/02/2024 4:22 PM CDT Hospital Encounter [facility] Acute Medicine [address] [place] [address] Krystal Araujo MD Singh, Arjun, MD Dizziness [...] Date Comments Ceftriaxone Nausea only Low 09/23/2021 Gfbdbym-Nlt-Oqj Reductase Inhibitors Other (See comments) Low 01/26/2018 Generalized pain Medications losartan (COZAAR) 25 mg tablet Take 1 tablet (25 mg total) by mouth daily 07/29/19 23 Active levothyroxine (SYNTHROID) 50 mcg tablet Take 1 tablet (50 mcg total) by mouth extrusion engineer before breakfast Active aspirin 81 mg enteric [...] 06/01/2022 Assessment & Plan (06/01/2022 3:29 PM PLATEMAKER): Worsening, patient reports symptoms are worse 1st thing in the morning, has to clean eyes before can open; fewer symptoms throughout the day; most consistent with allergic conjunctivitis Start azelastine eyedrops Diabetic neuropathy, type II diabetes mellitus 0 05/27/2022 LALITO (acute kidney injury) 03/10/2022 Obesity (BMI 30-39.9) 03/10/2022 Other chest pain 03/09/2022 Assessment & Plan (06/01/2022 3:28 PM PLATEMAKER): Continues to have episodes of chest pain, started in nature; can radiate to right-side of chest Patient reports some relief with ASA; has nitroglycerin Will continue to monitor; if negative cardio workup, consider esophageal spasms of source of pain Assessment & Plan (04/06/2022 11:47 AM PLATEMAKER): Reports pressure-like chest pain today, worsening fatigue [...] (12/29/2021): Added automatically from request for surgery [id number] Leukocytosis 12/19/2021 UTI (urinary tract infection) 12/19/2021 Coronary artery disease 12/18/2021 Overview (12/18/2021): Added automatically from request for surgery [id number] Assessment & Plan (03/07/2022 9:41 AM PLATEMAKER): Not well controlled, patient had stopped taking all medications, had elevated blood pressures today Encouraged patient to continue medications as prescribed Continue Brilinta 90 mg b.i.d., Zetia 10 mg daily Hypertensive crisis 12/16/2021 Assessment & Plan (12/17/2021 12:13 PM CDT): Present on admission, received Labetalol iv, currently resolved NSTEMI (non-ST elevated myocardial infarction) 0 12/16/2021 Overview (12/17/2021): Added automatically from request for surgery [id number] Assessment & Plan (01/10/2022 9:21 PM CDT): [...] Nasal saline spray (Simply saline, Little Remedies, [place], Shoshoni) 2 second sprays or 2 squeezes into [...] (11/18/2020): Added automatically from request for surgery [id number] Assessment & Plan (03/20/2021 4:30 PM PLATEMAKER): Stable, patient waiting on improved A1c for [...] (11/18/2020): Added automatically from request for surgery [id number] Scar of vermilion border of upper lip 07/04/2020 Overview (07/04/2020): Referral to plastic surgery for evaluation and possible affects scar tissue Cicatrix 07/04/2020 Tension headache 06/30/2020 Assessment & Plan (06/25/2021 10:33 AM PLATEMAKER): Patient has recurrent left-sided tension headaches; likely secondary to pressure on muscles from lipoma Assessment & Plan (06/09/2021 1:59 PM PLATEMAKER): Patient has headache for the last 4-6 [...] nostril Assessment & Plan (06/30/2020 12:31 PM PLATEMAKER): Patient has severe left sided headache; reports worsened with looking down or leaning back in bed; may be related to sinuses vs tension type headache -given congestion may consider sinus pressure and will refer to ENT Chronic midline low back pain without sciatica 0 06/30/2020 Assessment & Plan (06/30/2020 12:33 PM PLATEMAKER): Not well controlled; likely worsened due to poor core strength; encouraged weight loss to reduce strain on lower back (has severe central adiposity) Will give patient core exercises to strengthen low back and abodmen Lipoma of neck 06/25/2020 Assessment & Plan (06/25/2021 10:32 AM PLATEMAKER): Not well controlled, patient has left-sided tension style headaches, S with noted changing position of head due to size of lipoma Patient benefit from surgical removal to help improve overall posture as well as potentially improved tension headaches Assessment & Plan (05/14/2021 1:29 PM PLATEMAKER): Patient has large lipoma on back left-sided neck; reports left-sided headaches, which may be contributed by lipoma putting pressure on muscles sugar causing tension headaches Referral to Plastic surgery for removal Assessment & Plan (03/20/2021 4:29 PM PLATEMAKER): Stable, Impacts patient ability to turn had; will continue monitor refer to surgery when appropriate Primary osteoarthritis of left knee 05/08/2020 Assessment & Plan (11/17/2021 3:53 PM CDT): Continues to have significant pain, has some symptom improvement, but limited range of motion and pain with movement Recent steroid injection Follow-up with orthopedics Assessment & Plan (04/21/2021 2:52 PM PLATEMAKER): Stable, continues with physical therapy which is [...] monitor Assessment & Plan (05/14/2021 1:29 PM PLATEMAKER): Improving, patient has walked about 12 lb since last visit; encouraged continued dietary changes, decreasing in take through portion control as well as lowering carbohydrate intake Encourage daily activity of 30 minutes of moderate intensity aerobic exercise daily Assessment & Plan (03/20/2021 4:29 PM PLATEMAKER): Weight is stable, no significant change; patient [...] week Assessment & Plan (05/05/2020 3:33 PM PLATEMAKER): Not well controlled, patient reports weight loss [...] daily Assessment & Plan (06/25/2021 10:31 AM PLATEMAKER): Stable, unclear control, patient reports inconsistent medications use Continue levothyroxine 50 mcg daily, check TSH today Assessment & Plan (04/21/2021 2:52 PM PLATEMAKER): Stable, well controlled; continue levothyroxine 50 mcg daily Assessment & Plan (03/20/2021 4:28 PM PLATEMAKER): Stable, well controlled; continue levothyroxine 50 mcg daily Assessment & Plan (09/24/2020 3:00 PM CDT): Recheck TSH today as previous TSH was mildly elevated, is still elevated will adjust levothyroxine given patient has complaints of generalized fatigue Assessment & Plan (06/16/2020 9:09 AM PLATEMAKER): Will recheck thyroid now that has been on medication for ~6 weeks Assessment & Plan (05/05/2020 3:36 PM PLATEMAKER): Mild elevation of TSH, patient has multiple symptoms including inability to lose weight, chronic fatigue and chronic tiredness Will start at low dose levothyroxine 25 mcg, will recheck TSH in approximately 6 weeks Arthritis 03/24/2020 DM2 (diabetes mellitus, type 2) 03/24/2020 Assessment & Plan (06/01/2022 3:30 PM PLATEMAKER): Not well controlled, A1c has always been [...] diet Assessment & Plan (06/25/2021 10:31 AM PLATEMAKER): Stable, improving; patient A1c has been down trending to 7.5 last time, recheck A1c today Continue metformin XR 1000 mg daily Assessment & Plan (05/14/2021 1:28 PM PLATEMAKER): Stable, improving; last A1c was decreasing to 7.5 Encouraged patient to continue with low-carbohydrate diet; encourage education dietary changes as well as regular exercise Continue metformin 1000 mg daily Assessment & Plan (04/21/2021 2:52 PM PLATEMAKER): Stable, improving; patient reports he has been working on decreasing carbohydrates Has a decreased appetite well on Rybelsuswith minimal side effects Continue metformin 1000 mg daily with breakfast, Rybelsus 7 mg prior to breakfast Continue to monitor encourage continued decreased carbohydrate diet Recheck labs at follow-up appointment Assessment & Plan (03/20/2021 4:28 PM PLATEMAKER): Stable, well controlled, improving Patient reports improved [...] diet Assessment & Plan (05/05/2020 3:32 PM PLATEMAKER): Not well controlled, A1c is 7.7 today [...] strength Assessment & Plan (03/26/2020 12:24 PM PLATEMAKER): Will check blood sugars and A1c to evaluate for control of diabetes on metformin Hyperlipidemia 03/24/2020 Assessment & Plan (12/17/2021 12:16 PM CDT): Pt is not on a statin due to intolerance LDL is 107. Started on Zetia per cardiology. Assessment & Plan (10/13/2021 2:34 PM CDT): Not well controlled, encouraged continued dietary changes and weight loss Assessment & Plan (05/14/2021 1:28 PM PLATEMAKER): Not well controlled, patient cannot tolerate statins; encouraged dietary changes order reduce cholesterol through low-fat high-fiber diet Assessment & Plan (05/05/2020 3:35 PM PLATEMAKER): Poorly controlled patient has elevated total and LDL cholesterol with knee depressed HDL cholesterol Triglycerides are also elevated at 254 Patient is unable to tolerate statin therapy due to muscular pain of thigh muscles Will encouraged diet and exercise as ways to maintain and modify cholesterol level Hypertension, essential 03/24/2020 Assessment & Plan (06/01/2022 3:30 PM PLATEMAKER): Stable, improving; blood pressure today in clinic was normal; patient reports home measurements are improving Continue amlodipine 10 mg daily, hydralazine 25 mg b.i.d., metoprolol 100 mg daily Losartan was previously on medication list, but not part of pharmacy was Given blood pressures appropriate, will continue to monitor, can rehab losartan if blood pressure increases Assessment & Plan (04/06/2022 11:47 AM PLATEMAKER): Stable, improving; most recent blood pressure was at target Continue losartan 100 mg daily, metoprolol 100 mg daily, amlodipine 10 mg daily Assessment & Plan (03/07/2022 9:40 AM PLATEMAKER): Not well controlled; patient reports that he [...] daily Assessment & Plan (06/25/2021 10:30 AM PLATEMAKER): Not well controlled; blood pressure is elevated this morning prior to surgery, elevated again in office Given blood pressure was just normal on 06/09/2021, will increase lisinopril to 40 mg daily Encouraged patient to consistently take medications, with no missed or skipped doses Assessment & Plan (05/14/2021 1:27 PM PLATEMAKER): Not well controlled, blood pressure remains elevated; patient has been inconsistent with taking medications Will continue lisinopril 20 mg, follow-up at next appointment; if blood pressure still is elevated will adjust medication Assessment & Plan (03/20/2021 4:27 PM PLATEMAKER): Stable well controlled; blood pressure a target; [...] needed Assessment & Plan (05/05/2020 3:34 PM PLATEMAKER): Well controlled, patient's blood pressure is at target today Will continue with current therapies and continue to monitor patient Assessment & Plan (03/26/2020 12:24 PM PLATEMAKER): Stable well controlled, continue present management Post-traumatic [...] arthroscopy Assessment & Plan (06/16/2020 9:09 AM PLATEMAKER): Not well controlled, had relief with cortisone injection, but now has worsening pain; relief last for about 3-4 weeks -has some instability of patella, able to 'adjust' patella to relieve pain and improve ROM Assessment & Plan (05/05/2020 3:34 PM PLATEMAKER): Stable, not controlled Patient is not able to consistently place weight on the Patient to follow-up with orthopedics further evaluation, based on recommendations may refer to physical therapy Assessment & Plan (03/26/2020 12:24 PM PLATEMAKER): Will start treatment with diclofenac cream, and use of the triamcinolone as necessary If needed will refer to physical therapy for further improvement in pain Polyneuropathy associated with underlying diseas e ([facility]) 10/24/2019 Assessment & Plan (04/06/2022 11:44 AM PLATEMAKER): Continues to have numbness and weakness in bilateral legs; patient scheduled nerve conduction study Continue gabapentin 100 mg TID Continue with exercise, and strength training; noted to have decreased strength in hip flexors; normal with knee -if EMG is normal, consider CK or evaluation of polymyalgia or polymysitis Assessment & Plan (05/05/2020 3:34 PM PLATEMAKER): Patient has episodes of decreased balance due [...] management Assessment & Plan (06/25/2021 10:32 AM PLATEMAKER): Not well controlled, patient continues to have frequent nighttime urination; encouraged patient to continue follow-up with Urology and reschedule surgery Joel roblestriq 50 mg daily Assessment & Plan (03/20/2021 4:30 PM PLATEMAKER): Patient continues to have increased urinary frequency, [...] materials from doctor or pharmacy Sometimes 01/17/2024 [facility] Utilities Answer Date Recorded In [...] attend chur ch or faith services? Never 07/31/2024 Do you belong to any clubs o r organizations such as oriental orthodox groups, unions, fraternal or athletic groups, or [...] in the past 12 m [facility], were you homeless or living in [...] on file Legal Sex Male 12:23 AM PLATEMAKER Gender Identity Not on file Sexual Orientation [...] on file Medical Devices Implanted Type Area Commercial Loan Underwriter Device Identifier Shelf Expiration Date Model / Serial / Lot [employer] Daysi Synergy Xd Monorail 3.5mm 12mm 144cm Delivery System 1 Access [id number] - [id number] Implanted:Qty: 1 on 08/29/2023 by Louie Lomeli MD at [facility] Stent [employer] Daysi 10/19/2024 [id number] / / [id number] [employer] Stent Coronary De Rx Cocr Xience Skypoint 3.12t66ps [id number] - [id number] Implanted:Qty: 1 on 12/17/2021 by Louie Lomeli MD at [facility] [employer] 08/24/2023 [id number] [employer] Stent Coronary De Rx Cocr Xience Skypoint [id number] - [id number] Implanted:Qty: 1 on 12/17/2021 by Louie Lomeli MD at [facility] [employer] 08/28/2023 [id number] [employer] Daysi Synergy 3mm 16mm 144cm Radiopaque 1 Access Port Inflation Lumen [id number] - [id number] Implanted:Qty: 1 on 12/22/2021 by Louie Lomeli MD at [facility] [employer] Daysi 09/04/2022 [id number] / / [id number] [id number] Angio-Seal Vip 6fr Closere Device [id number] - [id number] Implanted:Qty: 1 on 12/22/2021 by Louie Lomeli MD at [facility] 09/29/2022 [id number] / / [id number] Procedures Procedure Name Priority Date/Time Associated Diagnosis [...] Americo Lopez M.D. RW: ANDRADE Report ID: [id number] Reading Location: [id number] Procedure Note Americo Lopez MD - 09/26/2024 [...] Americo Lopez M.D. RW: ANDRADE Report ID: [id number] Reading Location: [id number] Sohan Bueno MD IMG XR PROCEDURES Final [...] LAB BLOOD ORDERABLES Final Result [facility] ([place]) [address] [facility] [place] [address] * (ABNORMAL) Differential, auto (09/26/2024 4:20 PM [...] Final Result [facility] ([place]) [address] [facility] [place] [address] * (ABNORMAL) CBC with auto differential (09/26/2024 [...] ELENA) MCH 30.0 27.1 - 33.3 pg [facility] ([place]) MCHC 32.9 32.3 - 35.7 g/dL [facility] ([place]) RDW CV 13.5 11.1 - 14.9 % [facility] ([place]) RDW SD 45.6 35.7 - 48.1 fL [facility] ([place]) NRBC abs 0.00 0.00 - 0.01 K/cumm [facility] ([place]) Blood 09/26/2024 4:20 PM CDT 09/26/2024 4:36 PM CDT us Jordan Villanueva MD LAB BLOOD ORDERABLES Final Result [facility] ([place]) [address] [facility] [place] [address] * (ABNORMAL) Comprehensive metabolic panel (09/26/2024 4:20 PM CDT) Sodium 141 135 - 145 mmol/L Potassium, pl 3.2(L) 3.3 - 4.9 mmol/L [facility] ([place]) Chloride 100 97 - 110 mmol/L [facility] CO2 24 22 - 32 mmol/L [facility] ([place]) Anion gap 17(H) 2 - 15 mmol/L [facility] ([place]) BUN 39(H) 6 - 25 mg/dL [facility] ([place]) Creatinine 1.61(H) 0.80 - 1.30 mg/dL [facility] ([place]) Glucose 217(H) 70 - 199 mg/dL [facility] ([place]) Comment: Interpretive Data Fasting glucose [...] Final Result [facility] ([place]) [address] [facility] [place] [address] * (ABNORMAL) eGFR (08/10/2024 11:58 AM CDT) [...] BLOOD ORDERABLES Final R esult [facility] ([place]) [address] [place] [address] * (ABNORMAL) Differential, auto (08/10/2024 11:58 AM [...] R esult [facility] ([place]) [address] [place] [address] * (ABNORMAL) CBC with auto differential (08/10/2024 [...] ORDERABLES Final R esult Performing Organization Address City/[facility]/ZIP Co de Phone Number [facility] ([place]) [address] [facility] [place] [place] [address] * Erythrocyte sedimentation rate (08/10/2024 11:58 AM CDT) Erythrocyte sedimentation rate 11 1 - 20 mm/hr Blood 08/10/2024 11:5 8 AM CDT 08/10/2024 12:00 PM CDT Stanley RIZVI LAB BLOOD ORDERABLES Final R esult Performing Organization Address [facility] Co de Phone Number [facility] ([place]) 1 [facility] [place] [address] * (ABNORMAL) CRP (acute phase) (08/10/2024 11:58 AM CDT) CRP 19.1(H) <=10.0 mg/L Blood 08/10/2024 11:5 8 AM CDT 08/10/2024 12:00 PM CDT Stanley RIZVI LAB BLOOD ORDERABLES Final R esult Performing Organization Address City/[facility] Co de Phone Number [facility] ([place]) 1 [facility] [place] [address] * (ABNORMAL) Uric acid (08/10/2024 11:58 AM CDT) Uric acid 8.8(H) 3.0 - 8.0 mg/dL Blood 08/10/2024 11:5 8 AM CDT 08/10/2024 12:00 PM CDT us Stanley RIZVI LAB BLOOD ORDERABLES Final R esult [facility] ([place]) [address] [facility] [place], [place] [id number] * (ABNORMAL) Comprehensive metabolic panel (08/10/2024 11:58 [...] 13 7 - 55 Units/L [facility] ([place]) AST 13 10 - 50 Units/L [facility] ([place]) Blood 08/10/2024 11:5 8 AM CDT 08/10/2024 12:00 PM CDT us Stanley RIZVI LAB BLOOD ORDERABLES Final R esult [facility] [place] [address] [place] [address] * XR Foot Left 3 or More Views (08/10/2024 10:10 AM CDT) Anatomical Region Laterality Modality Lower Extremities, Foot Left Computed Radiography 08/10/2024 10:5 2 AM CDT Narrative 08/10/2024 10:58 AM CDT EXAM DESCRIPTION: XR FOOT LEFT 3 OR MORE VIEWS REASON FOR STUDY: pain to foot Pt to ED via [facility]. Per Pt he has had [...] Lawrence Clark M.D. MZ: INGRID Report ID: [id number] Reading Location: [id number] Procedure Note Lawrence Clark MD - 08/10/2024 EXAM DESCRIPTION: XR FOOT LEFT 3 OR MORE VIEWS REASON FOR STUDY: pain to foot Pt to ED via [facility]. Per Pt he has had [...] Lawrence Clark M.D. MZ: INGRID Report ID: [id number] Reading Location: [place] [address] us Xavi Murray MD IMG XR PROCEDURES F inal Result * POCT glucose (08/02/2024 11:54 AM CDT) Glucose, POC 163 70 - 199 mg/dL Blood 08/02/2024 11:5 4 AM CDT 08/02/2024 11:54 AM CDT us Corey Russo MD LAB POCT ORDERABLES - DEVICE Fin al Result Performing Organization Address [facility] Co de Phone Number [id number] [place] [address] * POCT glucose (08/02/2024 8:05 AM CDT) Glucose, POC 123 70 - 199 mg/dL Blood 08/02/2024 8:05 AM CDT 08/02/2024 8:05 AM CDT Corey Russo MD LAB POCT ORDERABLES - DEVICE Fin al Result Performing Organization Address [facility] Co de Phone Number [facility] ([place]) [address] [facility] [place] [address] * (ABNORMAL) eGFR (08/02/2024 4:04 AM CDT) [...] LAB BLOOD ORDERABLES Fi nal Result [facility] ([place]) [address] [facility] [place] [address] * (ABNORMAL) Differential, auto (08/02/2024 4:04 AM CDT) Pathologist [facility] Neutrophil abs 6.45 1.50 - 6.50 K/cumm [...] nal Result [facility] ([place]) [address] [facility] [place], [place] [id number] * CBC with auto differential (08/02/2024 4:04 [...] NRBC abs 0.00 0.00 - 0.01 K/cumm [facility] ([place] Blood 08/02/2024 4:04 AM CDT 08/02/2024 5:08 AM CDT us Krystal Araujo MD LAB BLOOD ORDERABLES nal Result [facility] ([place]) [address] [facility] [place], [place] [id number] * (ABNORMAL) Comprehensive metabolic panel (08/02/2024 4:04 AM CDT) Sodium 143 135 - 145 mmol/L Potassium, pl 3.4 3.3 - 4.9 mmol/L [facility] ([place]) Chloride 106 97 - 110 mmol/L [facility] ([place]) CO2 24 22 - 32 mmol/L [facility] ([place]) Anion gap 13 2 - 15 mmol/L [facility] ([place]) BUN 25 6 - 25 mg/dL [facility] ([place]) Creatinine 1.44(H) 0.80 - 1.30 mg/dL [facility] ([place]) Glucose 132 70 - 199 mg/dL [facility] ([place]) Comment: Interpretive [...] ORDERABLES Fi nal Result Performing Organization Address City/[facility]/ZIP Co de Phone Number [facility] ([place]) [address] [facility] [address] [facility] [place] [place] [address] * POCT glucose (08/02/2024 1:52 AM CDT) Glucose, POC 130 70 - 199 mg/dL Blood 08/02/2024 1:52 AM CDT 08/02/2024 1:52 AM CDT us Corey Russo MD LAB POCT ORDERABLES - DEVICE Fin al Result Performing Organization Address City/[facility]/ZIP Co de Phone Number [facility] ([place]) [address] [facility] [address] [facility] [place] [place] [address] * (ABNORMAL) Hemoglobin A1c (08/30/2023 2:23 AM CDT) Hgb A1C 6.3(H) 4.0 - 5.6 % Estimated Average Glucose 134 mg/dL [facility] ([place]) Comment: The ADA recommends reporting an estimated Average Glucose (eAG) with all Hemoglobin A1c results using the equation derived from a study of 507 normal and diabetic adults. Minority populations were underrepresented and children were not included. (Diabetes Care 31:1118-3997, 2008). The eAG is not equivalent to a fasting glucose. Blood 08/30/2023 2:23 AM CDT 08/30/2023 12:50 PM CDT us Destiny Devi NP LAB BLOOD ORDERABLES Final R esult JULIETA GUERRERO ([place]) 1 [facility] [place] [address] * (ABNORMAL) Lipid panel (08/28/2023 8:27 PM [...] BLOOD ORDERABLES Final Re sult JULIETA GUERRERO ([place]) 1 [place] [address] * PSA screen (10/28/2021 2:47 PM CDT) PSA-Total 3.15 <=5.40 ng/mL [facility] ([place]) Comment: Interpretive Data AGE SEX [...] data last revised 21. Testing performed by: [address] [address] Blood 10/28/2021 2:47 PM CDT 10/28/2021 7:50 PM CDT us Sohail Gould MD LAB BLOOD ORDERABLES Holly l Result Performing Organization Address City/[facility]/ZIP Co de Phone Number JULIETA GUERRERO ([place]) 1 [place] [address] * (ABNORMAL) Albumin Creatinine Ratio, Urine (10/28/2021 2:47 PM CDT) Albumin Ur 713.6 mg/L [facility] ([place]) Comment: Interpretive Data No reference range established. Current interpretive data was last revised 2018. Testing performed by: [address], [address] Creatinine Ur 343.1 mg/dL [facility] ([place]) Comment: Interpretive Data No reference range established. Current interpretive data was last revised 2018. Testing performed by: [facility], [address] [place] [address]., [id number] Albumin Creatinine Ratio, Ur 208(H) 1 - 29 mg/g JULIETA GUERRERO ([place]) Comment:Testing performed by : [facility], [id number] [place] [address]., [address] Urine 10/28/2021 2:47 PM CDT 10/28/2021 9:10 PM CDT Sohail Gould MD LAB URINE ORDERABLES Holly l Result JULIETA GUERRERO ([place]) 1 [facility] [place] [address] * Stool DNA - Cologuard (11/30/2020) Scribed Stool DNA - Cologuard Negative EXTERNAL LAB Stool Historical Provider LAB BODY FLUIDS AND STOOL S ORDERABLES Final Result EXTERNAL LAB from Last 3 Months or Most Recently Relevant to Health Maintenance [place] [address] [facility] MEDICARE ADVANTAGE IDPA [facility] [place] [address] [facility] MEDICARE ADVANTAGE [facility] MDCR HMO REF IDPA Advance Directives For more information, please contact: [phone] * Full Code (Latest Code Status on [...] 8:46 PM 08/29/2023 4:46 PM Care Teams Aircraft Log Clerk Relationship Specialty Start Date End Date Melchor Woodard MD PCP - General Family Practice 07/30/22 Nicolas Jung MD Surgeon Orthopedic Surgery 08/05/21 Louie Lomeli MD Consulting Physician Cardiology 12/23/21 Jairo Sparrow MD [address] [place] [address] [place] [address] Consulting Physician Neurology 12/14/22
[2024-11-01 17:56] LABS: Troponin I 0.015 ng/mL (0.000-0.034)
[2024-11-01 18:08] LABS: Magnesium 2.0 mg/dL (1.6-2.3)
[2024-11-01] MEDS: FUROSEMIDE INJ 40 MG/4 ML VIAL 20 MG IV PUSH (18:12)
[2024-11-01] MEDS: POTASSIUM CHLORIDE 20 MEQ PACKET (FOR LIQUID) PO (18:12)
[2024-11-01] MEDS: ASPIRIN 81 MG CHEWABLE TABLET 324 MG PO (18:20)
[2024-11-01] MEDS: MECLIZINE HCL 25 MG TABLET PO (18:21)
[2024-11-01 19:36] VITALS: BMI 35.2
[2024-11-01 19:55] VITALS: BP 183/71; PULSE 65; RESP 18; TEMP 36.5; O2SAT 97
[2024-11-01 20:00] VITALS: PULSE 66
--- NOTE | 2024-11-01 20:01 | P.HP_ITS ---
H&P: HPI History of Present Illness Date/Time: 11/01/24 20:01 Chief Complaint: Chest pain Narrative: This is a 74-year-old male patient with past medical history coronary artery disease status post PCI x5, carotid artery stenosis, BPH, chronic kidney disease stage IIIB, peripheral vascular disease, peripheral neuropathy, sleep apnea, type 2 diabetes mellitus who comes to the emergency room after just being dis charged yesterday now with complaints of chest pain. As noted patient was discharged yesterday after being admitted and evaluated for his dizziness by Neurology and he states upon discharge his symptoms have not gotten any better and he has started having pain in the middle of his back radiating around to his chest and he states he is ?having a heart attack. He was referred to Cardiology due to having episodes of trigeminy but has yet to make an appointment within. There was no concern of cardiac causation being the cause of patient's dizziness during his recent admission, but as noted he did have bilateral mastoid effusions which could be the cause of his dizziness so he was referred to ENT. Regardless, the patient's dizziness is chronic in nature and has been present for years and is routinely controlled with meclizine. However patient states that since he was discharged yesterday all of his medications that he normally keeps in his car, have disappeared and he has none of his medications to take. Patient is responsible for dosing his own medications, he reportedly lives at home with his 2 sisters and despite multiple conversations refuses to entertain the idea of assisted living. His pain that he presents with today he states started last evening, is in the center of his back and radiates around to his chest. He has no associated dyspnea, nausea or vomiting. No diaphoresis. In the ER workup was performed that shows stable vital signs, EKG Showing normal sinus rhythm rate of 73 with left axis deviation and left ventricular hypertrophy. CBC metabolic panel essentially unremarkable. BNP is 513. He has 2- troponins. D-dimer was 0.37, PTT 27.7, PT 13.0, INR 1.0. Chest x-ray was negative for any acute abnormal findings. He has a heart score 5 and is being a dmitted to the hospital for a fall rule out of ACS given his symptoms and risk factors. Again had a discussion with the patient at the bedside that he likely is at a point where he needs more help in caring for himself in managing medications and I suggested assisted living but he will not entertain the thought. He was given medications of potassium chloride 20 mEq for marginally low potassium of 3.3 and given Lasix 20 mg IV push for his evidence of potential fluid overload. He is being admitted in the current setting for a complete rule out with troponins and telemetry monitoring. Review of Systems Review of Systems: All systems reviewed & are unremarkable except as noted in HPI and below PMFSH Past Medical History Medical History Internal carotid artery stenosis Benign prostate hyperplasia Stage 3b chronic kidney disease Hypothyroidism Peripheral vascular disease Lumbar radiculopathy Peripheral neuropathy Hypertension Sleep apnea Type 2 diabetes mellitus Surgical History Surgical History History of tonsillectomy History of knee surgery History of coronary artery stent placement Family History Family History Father , natural causes. Heart disease Hypertension Mother No problems noted. Sibling Acute myocardial infarction Social History Social History Social History: Surrogate medical decision maker: Kandice Arceo, daughter ([phone]). Code status: Full code. Smoking packs per day: 3 Smoking cigarettes per day: 60.0 Smoking status: Former smoker Tobacco type: cigarettes Second hand tobacco smoke exposure: No Alcohol intake: never Substance use: never Substance use type: does not use Do You Feel Safe in your Home?: Yes Lack of Transportation: No Lack of Food: Never True Current Housing: I Have Housing Concerned About Future Housing: No Difficulty Paying Gas/Electric Bills: No Difficulty Paying for Meds: No Currently Unemployed: No Education: High School Diploma/GED Difficulty w/ Childcare or Family Care: No Living arrangements: with family Occupation/Education: retired 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 Spiritual care concerns: No Meds Home Medications and Allergies Home Medications ?Medication ?Instructions ?Recorded ?Confirmed ?Type aspirin 81 mg chewable tablet 81 mg PO DAILY 07/28/22 10/29/24 History (Leroy Chewable Low Dose Aspirin) clopidogrel 75 mg tablet (Plavix) 75 mg PO DAILY 11/23/23 10/29/24 History ezetimibe 10 mg tablet (Zetia) 10 mg PO DAILY 11/23/23 10/29/24 History isosorbide mononitrate 30 mg 30 mg PO DAILY 11/23/23 10/29/24 History tablet,extended release 24 hr meclizine 12.5 mg tablet 12.5 mg PO DAILY PRN dizziness #30 03/26/24 10/29/24 Rx tabs vibegron 75 mg tablet (Gemtesa) 75 mg PO DAILY #30 tabs 03/27/24 10/29/24 Rx gabapentin 100 mg capsule See Rx Instructions .Route 07/30/24 10/29/24 Rx .COMPLEX #120 caps empagliflozin 25 mg tablet See Rx Instructions .Route 08/16/24 10/29/24 Rx (Jardiance) .COMPLEX #90 tabs levothyroxine 50 mcg tablet See Rx Instructions .Route 08/16/24 10/29/24 Rx .COMPLEX #90 tabs metoprolol succinate 50 mg See Rx Instructions .Route 08/16/24 10/29/24 Rx tablet,extended release 24 hr .COMPLEX #90 tabs potassium chloride 20 mEq 20 meq PO DAILY #3 tabs 10/30/24 Rx tablet,extended release (K-Tab) hydrochlorothiazide 25 mg tablet See Rx Instructions .Route 10/31/24 Rx .COMPLEX #90 tabs losartan 25 mg tablet See Rx Instructions .Route 10/31/24 Rx .COMPLEX #90 tabs Allergies Allergy/AdvReac Type Severity Reaction Status Date / Time ceftriaxone (From Rocephin) Allergy Unknown Nausea Verified 11/01/24 19:32 Vgfoccs-BFP-WpJ Reductase Allergy Unknown Unknown Verified 11/01/24 19:32 Inhibitor Vital Signs Vital Signs - 24 hr 11/01/24 13:39 11/01/24 17:00 11/01/24 17:00 Temperature 98.1 F Pulse Rate 74 64 Respiratory Rate 18 Blood Pressure 125/96 H Pulse Oximetry 97 100 Oxygen Delivery Room Air Room Air 11/01/24 17:04 11/01/24 19:55 Temperature 97.7 F Pulse Rate 63 65 Respiratory Rate 15 18 Blood Pressure 146/74 H 183/71 H Pulse Oximetry 97 97 Oxygen Delivery Room Air Exam Const: General: comfortable and no acute distress Other: Elderly male patient in no acute distress at this time. Morbidly obese. HENMT: Face/Nose/Sinus: Normal nares present Mouth: Yes moist mucous membranes Eyes: General: appearance normal, both eyes and all related structures Neck: Neck: supple and no JVD Carotids: no bruits Chest: Other: Nontender to palpation Resp: Effort & Inspection: normal respiratory effort Auscultation: clear to auscultation bilaterally Cardio: Rate: regular rate Rhythm: regular rhythm Heart sounds: no gallops, Murmur heart sound present (Grade 2 holosystolic) systolic and no rubs GI: Inspection: non-distended GI Palp: Yes Soft to palpation and No Tenderness to palpation present (GI) Auscultation: normal bowel sounds Other: Protuberant abdomen without firmness Skin: General skin exam: normal color Lesions: no lesions noted Rashes: no rashes noted Wounds: no wounds Extrem: General: edema and pedal edema Other: Bilateral lower extremity 1+ pitting edema Psych: Mental Status: mental status grossly normal Affect: normal affect H&P: Results Labs Labs: Short CBC 11/01/24 Range/Units 14:00 WBC 12.2 H (4.5-10.0) K/mm3 Hgb 16.2 (14.0-18.0) g/dL Hct 49.7 (42.0-52.0) % Plt Count 184 (150-375) k/mm3 BMP 11/01/24 14:00 Sodium 142 Potassium 3.3 L Chloride 105 Carbon Dioxide 26 BUN 23 H Creatinine 1.24 Glucose 177 H Calcium 9.3 Cardiac Enzymes 11/01/24 11/01/24 Range/Units 14:00 17:20 Troponin I 0.017 0.015 (0.000-0.034) ng/mL Liver Function 11/01/24 Range/Units 14:00 Total Bilirubin 0.4 (0.2-1.3) mg/dL AST 27 (17-59) U/L ALT 25 (6-50) U/L Alkaline Phosphatase 87 (38-126) U/L Albumin 4.0 (3.5-5.1) g/dL Assessment and Plan Assessment and plan (1) Chest pain: Qualifiers: Chest pain type: unspecified Qualified Code(s): R07.9 - Chest pain, unspecified Code(s): R07.9 - Chest pain, unspecified Status: Acute Assessment and Plan: * Negative tropes x2 * EKG without any ischemic changes * Continue telemetry * Complete 3 trop rule out * Aspirin 324 mg chewable given in ED * Heart score 5 * Low suspicion of ACS. * P.r.n. morphine 4 mg IV push q.4 hours ordered for severe pain * Tylenol 1000 mg p.o. q.6 hours ordered for [id number] pain. * Daily labs (2) Hypertension: Code(s): I10 - Essential (primary) hypertension Status: Chronic Assessment and Plan: * Continue home medications once they have been confirmed and verified. * Trended monitor vital signs (3) Type 2 diabetes mellitus: Code(s): E11.9 - Type 2 diabetes mellitus without complications Status: Chronic Assessment and Plan: * Hold oral hypoglycemics * Adult sliding scale insulin protocol * Hypoglycemic protocol * Glucose checks a.c. and HS * Diabetic diet * Check A1c (4) Vertigo: Code(s): R42 - Dizziness and giddiness Status: Chronic Assessment and Plan: * Continue home dose of meclizine * During his recent hospitalization in which she was just discharged yesterday it was found that patient had bilateral mastoid effusion. He has been referred to [facility] N[facility] Throat for follow-up. (5) Impaired renal function: Code(s): N28.9 - Disorder of kidney and ureter, unspecified Status: Chronic Assessment and Plan: * Chronic kidney disease stage 3 * Baseline creatinine to 1.4-1.6. * Continue to monitor. Patient current creatinine is 1.24 which is better than his baseline. (6) Sleep apnea: Code(s): G47.30 - Sleep apnea, unspecified Status: Chronic Assessment and Plan: * CPAP with home settings Quality VTE Prophylaxis VTE prophylaxis: pharmacologic ordered Hospitalist MIPS Advance Care Plan I have confirmed that the patient's Advanced Care Plan is present, code status is documented, or surrogate decision maker is listed in patient medical record.: Yes Medication Reconciliation I have utilized all available resources to obtain, update and review the patients current medications (includes all prescriptions, OTC, herbals, cannabis, and nutritional supplements).: Yes
[2024-11-01 21:47] LABS: Troponin I 0.017 ng/mL (0.000-0.034)
[2024-11-01] MEDS: INSULIN ASPART (*BKC) 100 UNITS/ML SUB-Q (21:49)
--- NOTE | 2024-11-01 21:52 | ADMGEN ---
This patient, Jairo Olguin, was admitted to IMU Room 211-01. Patient/family oriented to hospital policies and general routines including ID bracelet, bed and alarms, visiting hours, pain management, procedures, bathroom and other care routines, personal items, smoking policy, room service/diet, and visiting hours. Information on how to activate the Rapid Response Team has been discussed. Patient/Family are encouraged to report perceived risks to care and to ask questions if they do not understand what they are told or what they should do.
[2024-11-01 21:53] LABS: Hemoglobin A1C 7.6 % (<5.7)
[2024-11-01 22:00] VITALS: PULSE 62
[2024-11-02] VITALS (12 sets, daily range): BP systolic 134–177; BP diastolic 45–77; PULSE 54–74; RESP 16–24; TEMP 36.4–36.6; O2SAT 94–96
[2024-11-02 04:48] LABS: Hematocrit 47.8 % (42.0-52.0); Hemoglobin 15.5 g/dL (14.0-18.0); Immature Granulocyte Percent A 2.2 % (0-0.5); Lymphocytes Absolute Auto 1.37 K/mm3 (0.9-3.2); Mean Corpuscular HGB Conc 32.4 g/dl (32-36); Mean Corpuscular Hemoglobin 30.1 pg (26-34); Mean Corpuscular Volume 92.8 fl (80-100); Nucleated Red Blood Cells Absolute Auto 0.000 K/mm3 (0.0-0.012); Nucleated Red Blood Cells Perc 0.0 % (0.0-0.2); Platelet Count Result 161 k/mm3 (150-375); Red Blood Count 5.15 M/mm3 (4.6-6.20); White Blood Count 9.7 K/mm3 (4.5-10.0)
[2024-11-02 05:11] LABS: Alanine Aminotransferase 20 U/L (6-50); Albumin Level 3.6 g/dL (3.5-5.1); Alkaline Phosphatase 81 U/L (38-126); Anion Gap 9 mmol/L (4-12); Aspartate Amino Transferase 24 U/L (17-59); Bilirubin,Total 0.4 mg/dL (0.2-1.3); Blood Urea Nitrogen 23 mg/dL (9-20); Calcium 8.7 mg/dL (8.4-10.2); Carbon Dioxide 27 mmol/L (22-30); Chloride 105 mmol/L (98-107); Estimated CRCL calculation 62 ml/min; Estimated Glomerular Filt Rate 60; Glucose 132 mg/dL (65-110); Magnesium 2.0 mg/dL (1.6-2.3); Potassium 3.0 mmol/L (3.4-5.0); Sodium 141 mmol/L (137-145); Total Protein 6.2 g/dL (6.3-8.2)
[2024-11-02] MEDS: ENOXAPARIN 40 MG/0.4 ML SYRINGE SUB-Q (08:02)
[2024-11-02] MEDS: MECLIZINE HCL 25 MG TABLET PO ×2 (08:02→16:50)
[2024-11-02] MEDS: POTASSIUM CHLORIDE 20 MEQ PACKET (FOR LIQUID) 40 MEQ PO (11:14)
[2024-11-02] MEDS: LOSARTAN POTASSIUM 25 MG TABLET BY MOUTH (11:14)
[2024-11-02] MEDS: LEVOTHYROXINE SODIUM 50 MCG TABLET BY MOUTH (11:14)
[2024-11-02] MEDS: METOPROLOL SUCCINATE EXT REL 50 MG TABCR BY MOUTH (11:14)
[2024-11-02] MEDS: EMPAGLIFLOZIN 25 MG TABLET BY MOUTH (11:14)
[2024-11-02] MEDS: GABAPENTIN 100 MG CAPSULE BY MOUTH (14:28)
[2024-11-02] MEDS: LOPERAMIDE HCL 2 MG CAPSULE PO (15:22)
--- NOTE | 2024-11-02 17:11 | P.PNIM_ITS ---
Progress Note: A&P Assessment and Plan (1) Chest pain: Qualifiers: Chest pain type: unspecified Qualified Code(s): R07.9 - Chest pain, unspecified Code(s): R07.9 - Chest pain, unspecified Status: Acute Assessment and Plan: * Negative tropes x2 * EKG without any ischemic changes * Continue telemetry * Complete 3 trop rule out * Aspirin 324 mg chewable given in ED * Heart score 5 * Low suspicion of ACS. * P.r.n. morphine 4 mg IV push q.4 hours ordered for severe pain * Tylenol 1000 mg p.o. q.6 hours ordered for [id number] pain. * Daily labs (2) Hypertension: Code(s): I10 - Essential (primary) hypertension Status: Chronic Assessment and Plan: * Continue home medications once they have been confirmed and verified. * Trended monitor vital signs (3) Type 2 diabetes mellitus: Code(s): E11.9 - Type 2 diabetes mellitus without complications Status: Chronic Assessment and Plan: * Hold oral hypoglycemics * Adult sliding scale insulin protocol * Hypoglycemic protocol * Glucose checks a.c. and HS * Diabetic diet * Check A1c (4) Vertigo: Code(s): R42 - Dizziness and giddiness Status: Chronic Assessment and Plan: * Continue home dose of meclizine * During his recent hospitalization in which she was just discharged yesterday it was found that patient had bilateral mastoid effusion. He has been referred to [facility] for follow-up. (5) Impaired renal function: Code(s): N28.9 - Disorder of kidney and ureter, unspecified Status: Chronic Assessment and Plan: * Chronic kidney disease stage 3 * Baseline creatinine to 1.4-1.6. * Continue to monitor. Patient current creatinine is 1.24 which is better than his baseline. (6) Sleep apnea: Code(s): G47.30 - Sleep apnea, unspecified Status: Chronic Assessment and Plan: * CPAP with home settings Plan today patient still confused about his medications, he now realizes that he has not picked up his medications from the pharmacy, his chest pain has resolved, as his 3 sets of cardiac enzymes are negative and there are no acute changes on his EKG. will continue to monitor and plan. Subjective Date/time seen: 11/02/24 17:11 Interval history: Chest pain Narrative: This is a 74-year-old male patient with past medical history coronary artery disease status post PCI x5, carotid artery stenosis, BPH, chronic kidney disease stage IIIB, peripheral vascular disease, peripheral neuropathy, sleep apnea, type 2 diabetes mellitus who comes to the emergency room after just being discharged yesterday now with complaints of chest pain. As noted patient was discharged yesterday after being admitted and evaluated for his dizziness by Neurology and he states upon discharge his symptoms have not gotten any better and he has started having pain in the middle of his back radiating around to his chest and he states he is ?having a heart attack. He was referred to Cardiology due to having episodes of trigeminy but has yet to make an appointment within. There was no concern of cardiac causation being the cause of patient's dizziness during his recent admission, but as noted he did have bilateral mastoid effusions which could be the cause of his dizziness so he was referred to ENT. Regardless, the patient's dizziness is chronic in nature and has been present for years and is routinely controlled with meclizine. However patient states that since he was discharged yesterday all of his medications that he normally keeps in his car, have disappeared and he has none of his medications to take. Patient is responsible for dosing his own medications, he reportedly lives at home with his 2 sisters and despite multiple conversations refuses to entertain the idea of assisted living. His pain that he presents with today he states started last evening, is in the center of his back and radiates around to his chest. He has no associated dyspnea, nausea or vomiting. No diaphoresis. In the ER workup was performed that shows stable vital signs, EKG Showing normal sinus rhythm rate of 73 with left axis deviation and left ventricular hypertrophy. CBC metabolic panel essentially unremarkable. BNP is 513. He has 2- troponins. D-dimer was 0.37, PTT 27.7, PT 13.0, INR 1.0. Chest x-ray was negative for any acute abnormal findings. He has a heart score 5 and is being admitted to the hospital for a fall rule out of ACS given his symptoms and risk factors. Again had a discussion with the patient at the bedside that he likely is at a point where he needs more help in caring for himself in managing medications and I suggested assisted living but he will not entertain the thought. He was given medications of potassium chloride 20 mEq for marginally low potassium of 3.3 and given Lasix 20 mg IV push for his evidence of potential fluid overload. He is being admitted in the current setting for a complete rule out with troponins and telemetry monitoring. today patient still confused about his medications, he now realizes that he has not picked up his medications from the pharmacy, his chest pain has resolved, as his 3 sets of cardiac enzymes are negative and there are no acute changes on his EKG. will continue to monitor and plan. Review of Systems Review of Systems: All systems reviewed & are unremarkable except as noted in HPI and below Objective Data Vital Signs Vital Signs: Vital Signs - 24 hr 11/01/24 19:55 11/01/24 20:00 11/01/24 22:00 Temperature 36.5 C Pulse Rate 65 66 62 Respiratory Rate 18 Blood Pressure 183/71 H Pulse Oximetry 97 Oxygen Delivery 11/02/24 00:00 11/02/24 00:00 11/02/24 02:00 Temperature 36.6 C Pulse Rate 54 L 57 L 65 Respiratory Rate 18 Blood Pressure 147/77 H Pulse Oximetry 96 Oxygen Delivery 11/02/24 04:00 11/02/24 04:00 11/02/24 06:00 Temperature 36.6 C Pulse Rate 61 62 55 L Respiratory Rate 18 Blood Pressure 134/45 L Pulse Oximetry 95 Oxygen Delivery 11/02/24 08:00 11/02/24 08:00 11/02/24 08:00 Temperature 36.4 C L Pulse Rate 57 L 65 Respiratory Rate 16 Blood Pressure 170/75 H Pulse Oximetry 94 Oxygen Delivery Room Air 11/02/24 10:00 11/02/24 11:14 11/02/24 11:48 Temperature 36.4 C Pulse Rate 70 71 67 Respiratory Rate 24 H Blood Pressure 177/74 H Pulse Oximetry 95 Oxygen Delivery 11/02/24 12:00 11/02/24 12:00 11/02/24 16:00 Temperature 36.5 C Pulse Rate 74 66 Respiratory Rate 16 Blood Pressure 167/64 H Pulse Oximetry 95 Oxygen Delivery Room Air Intake/Output Intake/Output: Intake & Output 10/30/24 10/31/24 11/01/24 11/02/24 23:59 23:59 23:59 23:59 Intake Total 702 Output Total 600 Balance 102 Meds/Results Medications: Active Medications Generic Name Dose Route Start Last Admin Trade Name Freq PRN Reason Stop Dose Admin Acetaminophen 1,000 mg 11/01/24 20:18 Acetaminophen 500 Mg Tablet PO Q6H PRN Mild Pain (1-3) or Fever Aspirin 81 mg 11/03/24 09:00 Aspirin 81 Mg Chewable Tablet PO DAILY [facility] Clopidogrel Bisulfate 75 mg 11/03/24 09:00 Clopidogrel Bisulfate 75 Mg Tablet PO DAILY [facility] Dextrose 12.5 gm 11/01/24 20:18 Dextrose 50% 25 Gm/50 Ml Syringe IV PUSH PRN PRN Hypoglycemia Protocol Ezetimibe 10 mg 11/03/24 09:00 Ezetimibe 10 Mg Tablet PO DAILY [facility] Empagliflozin 25 mg 11/02/24 09:40 11/02/24 11:14 Empagliflozin 25 Mg Tablet BY MOUTH 25 mg DAILY [facility] Administration Enoxaparin Sodium 40 mg 11/02/24 09:00 11/02/24 08:02 Enoxaparin 40 Mg/0.4 Ml Syringe SUB-Q 40 mg DAILY [facility] Administration Gabapentin 100 mg 11/02/24 12:00 11/02/24 14:28 Gabapentin 100 Mg Capsule BY MOUTH 100 mg DAILY@0800,1200 [facility] Administration Gabapentin 200 mg 11/02/24 21:00 Gabapentin 100 Mg Capsule BY MOUTH [facility] Glucagon 1 mg 11/01/24 20:18 Glucagon For Inj 1 Mg Vial IM PRN PRN Hypoglycemia Protocol Glucose 15 gm 11/01/24 20:18 Glucose Oral Gel 15 Gm Of Glucse In 37.5 Gm Tube PO PRN PRN Hypoglycemia Protocol Hydrochlorothiazide 25 mg 11/03/24 09:00 Hydrochlorothiazide 25 Mg Tablet BY MOUTH QAM [facility] Dextrose 1,000 mls @ 100 mls/hr 11/01/24 20:18 Dextrose 5% 1,000 Ml IVPB PRN PRN Hypoglycemia Protocol Insulin Aspart 2 - 5 units 11/02/24 08:00 11/02/24 16:49 Insulin Aspart (*Bkc) 100 Units/Ml SUB-Q Not Given TIDWM [facility] Protocol Insulin Aspart 1 - 2 units 11/01/24 21:00 11/01/24 21:49 Insulin Aspart (*Bkc) 100 Units/Ml SUB-Q 1 units HS [facility] Administration Protocol Levothyroxine Sodium 50 mcg 11/02/24 09:50 11/02/24 11:14 Levothyroxine Sodium 50 Mcg Tablet BY MOUTH 50 mcg DAILY@0630 [facility] Administration Loperamide HCl 2 mg 11/02/24 15:01 11/02/24 15:22 Loperamide Hcl 2 Mg Capsule PO 2 mg Q8HR PRN Administration Diarrhea Losartan Potassium 25 mg 11/02/24 09:40 11/02/24 11:14 Losartan Potassium 25 Mg Tablet BY MOUTH 25 mg DAILY [facility] Administration Meclizine HCl 25 mg 11/02/24 09:00 11/02/24 16:50 Meclizine Hcl 25 Mg Tablet PO 25 mg BID [facility] Administration Meclizine HCl 12.5 mg 11/02/24 09:36 Meclizine Hcl 12.5 Mg Tablet PO DAILY PRN dizziness Metoprolol Succinate 50 mg 11/02/24 09:40 11/02/24 11:14 Metoprolol Succinate Ext Rel 50 Mg Tabcr BY MOUTH 50 mg DAILY [facility] Administration Miscellaneous Information 1 each 11/02/24 00:01 Nonformulary Drug (Vibegron [Gemtesa] 75 Mg Tablet)Can Patient Use From Home? XX 12/02/24 00:00 CLARIFY [facility] Morphine Sulfate 4 mg 11/01/24 20:18 Morphine Sulfate (*Crx) 4 Mg/Ml Inj IV PUSH Q4H PRN Pain Rated 7-10 Non-Formulary Medication 75 mg 11/03/24 09:00 Vibegron [Gemtesa] PO 12/03/24 08:59 DAILY [facility] Potassium Chloride 20 meq 11/03/24 09:00 Potassium Chloride 20 Meq Er Tablet PO DAILY [facility] Radiology Results: ITS Impressions Chest X-Ray 11/01/24 15:14 IMPRESSION: No acute cardiopulmonary pathology Labs Labs: Laboratory Results - last 24 hr 11/01/24 11/01/24 11/01/24 14:00 17:20 21:04 WBC RBC Hgb Hct MCV MCH MCHC RDW Plt Count MPV Immature Gran % (Auto) Neut % (Auto) Lymph % (Auto) [place] % (Auto) Eos % (Auto) Baso % (Auto) Lymph # (Auto) [place] # (Auto) Eos # (Auto) Baso # (Auto) Abs Immat Gran (auto) Absolute Neuts (auto) Absolute Nucleated RBC Nucleated RBC % Sodium Potassium Chloride Carbon Dioxide Anion Gap BUN Creatinine Estim Creat Clear Calc Estimated GFR Glucose POC Capillary Glucose Hemoglobin A1c 7.6 H Calcium Magnesium 2.0 Total Bilirubin AST ALT Alkaline Phosphatase Troponin I 0.015 0.017 Total Protein Albumin 11/01/24 11/02/24 11/02/24 21:42 04:07 07:16 WBC 9.7 RBC 5.15 Hgb 15.5 Hct 47.8 MCV 92.8 MCH 30.1 MCHC 32.4 RDW 14.1 Plt Count 161 MPV 10.0 Immature Gran % (Auto) 2.2 H Neut % (Auto) 74.4 H Lymph % (Auto) 14.2 L [place] % (Auto) 8.1 Eos % (Auto) 0.5 Baso % (Auto) 0.6 Lymph # (Auto) 1.37 [place] # (Auto) 0.8 H Eos # (Auto) 0.1 Baso # (Auto) 0.1 Abs Immat Gran (auto) 0.21 H Absolute Neuts (auto) 7.2 H Absolute Nucleated RBC 0.000 Nucleated RBC % 0.0 Sodium 141 Potassium 3.0 L Chloride 105 Carbon Dioxide 27 Anion Gap 9 BUN 23 H Creatinine 1.20 Estim Creat Clear Calc 62 Estimated GFR 60 Glucose 132 H POC Capillary Glucose 283 H 133 H Hemoglobin A1c Calcium 8.7 Magnesium 2.0 Total Bilirubin 0.4 AST 24 ALT 20 Alkaline Phosphatase 81 Troponin I Total Protein 6.2 L Albumin 3.6 11/02/24 11/02/24 11:30 15:27 WBC RBC Hgb Hct MCV MCH MCHC RDW Plt Count MPV Immature Gran % (Auto) Neut % (Auto) Lymph % (Auto) [place] % (Auto) Eos % (Auto) Baso % (Auto) Lymph # (Auto) [place] # (Auto) Eos # (Auto) Baso # (Auto) Abs Immat Gran (auto) Absolute Neuts (auto) Absolute Nucleated RBC Nucleated RBC % Sodium Potassium Chloride Carbon Dioxide Anion Gap BUN Creatinine Estim Creat Clear Calc Estimated GFR Glucose POC Capillary Glucose 152 H 141 H Hemoglobin A1c Calcium Magnesium Total Bilirubin AST ALT Alkaline Phosphatase Troponin I Total Protein Albumin Quality VTE Prophylaxis VTE prophylaxis: pharmacologic ordered
--- NOTE | 2024-11-02 18:05 | PC.NURSE ---
Received from [facility] via bed.
[2024-11-02] MEDS: GABAPENTIN 100 MG CAPSULE 200 MG BY MOUTH (20:35)
[2024-11-02] MEDS: INSULIN ASPART (*BKC) 100 UNITS/ML SUB-Q (20:36)
[2024-11-03 05:21] LABS: Hematocrit 49.6 % (42.0-52.0); Hemoglobin 15.9 g/dL (14.0-18.0); Mean Corpuscular HGB Conc 32.1 g/dl (32-36); Mean Corpuscular Hemoglobin 29.9 pg (26-34); Mean Corpuscular Volume 93.2 fl (80-100); Platelet Count Result 158 k/mm3 (150-375); Red Blood Count 5.32 M/mm3 (4.6-6.20); White Blood Count 8.8 K/mm3 (4.5-10.0)
[2024-11-03 05:23] VITALS: BP 166/78; PULSE 84; RESP 18; TEMP 36.2; O2SAT 95
[2024-11-03 05:29] LABS: Magnesium 2.0 mg/dL (1.6-2.3); Potassium 3.4 mmol/L (3.4-5.0)
[2024-11-03] MEDS: LEVOTHYROXINE SODIUM 50 MCG TABLET BY MOUTH (06:27)
[2024-11-03] MEDS: ENOXAPARIN 40 MG/0.4 ML SYRINGE SUB-Q (08:32)
[2024-11-03] MEDS: CLOPIDOGREL BISULFATE 75 MG TABLET PO (08:32)
[2024-11-03] MEDS: ASPIRIN 81 MG CHEWABLE TABLET PO (08:32)
[2024-11-03 08:33] VITALS: PULSE 80
[2024-11-03] MEDS: EZETIMIBE 10 MG TABLET PO (08:33)
[2024-11-03] MEDS: METOPROLOL SUCCINATE EXT REL 50 MG TABCR BY MOUTH (08:33)
[2024-11-03] MEDS: POTASSIUM CHLORIDE 20 MEQ ER TABLET PO (08:33)
[2024-11-03 08:34] VITALS: PULSE 80; RESP 18; O2SAT 94
[2024-11-03] MEDS: MECLIZINE HCL 25 MG TABLET PO ×2 (08:34→16:32)
[2024-11-03] MEDS: LOSARTAN POTASSIUM 25 MG TABLET BY MOUTH (08:34)
[2024-11-03] MEDS: EMPAGLIFLOZIN 25 MG TABLET BY MOUTH (08:34)
[2024-11-03] MEDS: GABAPENTIN 100 MG CAPSULE BY MOUTH ×2 (08:34→11:13)
[2024-11-03 08:39] VITALS: O2SAT 94
[2024-11-03] MEDS: POTASSIUM CHLORIDE 20 MEQ PACKET (FOR LIQUID) 40 MEQ PO (11:13)
--- NOTE | 2024-11-03 11:40 | P.PNIM_ITS ---
Progress Note: A&P Assessment and Plan (1) Chest pain: Qualifiers: Chest pain type: unspecified Qualified Code(s): R07.9 - Chest pain, unspecified Code(s): R07.9 - Chest pain, unspecified Status: Acute Assessment and Plan: * Negative tropes x2 * EKG without any ischemic changes * Continue telemetry * Complete 3 trop rule out * Aspirin 324 mg chewable given in ED * Heart score 5 * Low suspicion of ACS. * P.r.n. morphine 4 mg IV push q.4 hours ordered for severe pain * Tylenol 1000 mg p.o. q.6 hours ordered for [id number] pain. * Daily labs (2) Hypertension: Code(s): I10 - Essential (primary) hypertension Status: Chronic Assessment and Plan: * Continue home medications once they have been confirmed and verified. * Trended monitor vital signs (3) Type 2 diabetes mellitus: Code(s): E11.9 - Type 2 diabetes mellitus without complications Status: Chronic Assessment and Plan: * Hold oral hypoglycemics * Adult sliding scale insulin protocol * Hypoglycemic protocol * Glucose checks a.c. and HS * Diabetic diet * Check A1c (4) Vertigo: Code(s): R42 - Dizziness and giddiness Status: Chronic Assessment and Plan: * Continue home dose of meclizine * During his recent hospitalization in which she was just discharged yesterday it was found that patient had bilateral mastoid effusion. He has been referred to [facility] for follow-up. (5) Impaired renal function: Code(s): N28.9 - Disorder of kidney and ureter, unspecified Status: Chronic Assessment and Plan: * Chronic kidney disease stage 3 * Baseline creatinine to 1.4-1.6. * Continue to monitor. Patient current creatinine is 1.24 which is better than his baseline. (6) Sleep apnea: Code(s): G47.30 - Sleep apnea, unspecified Status: Chronic Assessment and Plan: * CPAP with home settings Plan Patient denies any CP, his chest pain has resolved, as his 3 sets of cardiac enzymes are negative and there are no acute changes on his EKG. patient does complaints of back pain and difficulty with ambulation, will have PT/OT evaluate the patient, will continue to monitor and plan. Subjective Date/time seen: 11/03/24 11:40 Interval history: Chest pain Narrative: This is a 74-year-old male patient with past medical history coronary artery disease status post PCI x5, carotid artery stenosis, BPH, chronic kidney disease stage IIIB, peripheral vascular disease, peripheral neuropathy, sleep apnea, type 2 diabetes mellitus who comes to the emergency room after just being discharged yesterday now with complaints of chest pain. As noted patient was discharged yesterday after being admitted and evaluated for his dizziness by Neurology and he states upon discharge his symptoms have not gotten any better and he has started having pain in the middle of his back radiating around to his chest and he states he is ?having a heart attack. He was referred to Cardiology due to having episodes of trigeminy but has yet to make an appointment within. There was no concern of cardiac causation being the cause of patient's dizziness during his recent admission, but as noted he did have bilateral mastoid effusions which could be the cause of his dizziness so he was referred to ENT. Regardless, the patient's dizziness is chronic in nature and has been present for years and is routinely controlled with meclizine. However patient states that since he was discharged yesterday all of his medications that he normally keeps in his car, have disappeared and he has none of his medications to take. Patient is responsible for dosing his own medications, he reportedly lives at home with his 2 sisters and despite multiple conversations refuses to entertain the idea of assisted living. His pain that he presents with today he states started last evening, is in the center of his back and radiates around to his c hest. He has no associated dyspnea, nausea or vomiting. No diaphoresis. In the ER workup was performed that shows stable vital signs, EKG Showing normal sinus rhythm rate of 73 with left axis deviation and left ventricular hypertrophy. CBC metabolic panel essentially unremarkable. BNP is 513. He has 2- troponins. D-dimer was 0.37, PTT 27.7, PT 13.0, INR 1.0. Chest x-ray was negative for any acute abnormal findings. He has a heart score 5 and is being admitted to the hospital for a fall rule out of ACS given his symptoms and risk factors. Again had a discussion with the patient at the bedside that he likely is at a point where he needs more help in caring for himself in managing medications and I suggested assisted living but he will not entertain the thought. He was given medications of potassium chloride 20 mEq for marginally low potassium of 3.3 and given Lasix 20 mg IV push for his evidence of potential fluid overload. He is being admitted in the current setting for a complete rule out with troponins and telemetry monitoring. Patient denies any CP, his chest pain has resolved, as his 3 sets of cardiac enzymes are negative and there are no acute changes on his EKG. patient does complaints of back pain and difficulty with ambulation, will have PT/OT evaluate the patient, will continue to monitor and plan. Review of Systems Review of Systems: All systems reviewed & are unremarkable except as noted in HPI and below Objective Data Vital Signs Vital Signs: Vital Signs - 24 hr 11/02/24 11:48 11/02/24 12:00 11/02/24 12:00 Temperature 36.4 C Pulse Rate 67 74 Respiratory Rate 24 H Blood Pressure 177/74 H Pulse Oximetry 95 Oxygen Delivery Room Air 11/02/24 16:00 11/02/24 18:28 11/02/24 20:00 Temperature 36.5 C Pulse Rate 66 Respiratory Rate 16 16 Blood Pressure 167/64 H Pulse Oximetry 95 95 Oxygen Delivery Room Air Room Air 11/02/24 21:03 11/03/24 05:23 11/03/24 08:33 Temperature 36.6 C 36.2 C L Pulse Rate 61 84 80 Respiratory Rate 18 18 Blood Pressure 170/70 H 166/78 H Pulse Oximetry 95 95 Oxygen Delivery 11/03/24 08:34 11/03/24 08:39 Temperature Pulse Rate 80 Respiratory Rate 18 Blood Pressure Pulse Oximetry 94 94 Oxygen Delivery Room Air Room Air Intake/Output Intake/Output: Intake & Output 10/31/24 11/01/24 11/02/24 11/03/24 23:59 23:59 23:59 23:59 Intake Total 1442 590 Output Total 1500 600 Balance -58 -10 Meds/Results Medications: Active Medications Generic Name Dose Route Start Last Admin Trade Name Freq PRN Reason Stop Dose Admin Acetaminophen 1,000 mg 11/01/24 20:18 Acetaminophen 500 Mg Tablet PO Q6H PRN Mild Pain (1-3) or Fever Aspirin 81 mg 11/03/24 09:00 11/03/24 08:32 Aspirin 81 Mg Chewable Tablet PO 81 mg DAILY [facility] Administration Clopidogrel Bisulfate 75 mg 11/03/24 09:00 11/03/24 08:32 Clopidogrel Bisulfate 75 Mg Tablet PO 75 mg DAILY [facility] Administration Dextrose 12.5 gm 11/01/24 20:18 Dextrose 50% 25 Gm/50 Ml Syringe IV PUSH PRN PRN Hypoglycemia Protocol Ezetimibe 10 mg 11/03/24 09:00 11/03/24 08:33 Ezetimibe 10 Mg Tablet PO 10 mg DAILY [facility] Administration Empagliflozin 25 mg 11/02/24 09:40 11/03/24 08:34 Empagliflozin 25 Mg Tablet BY MOUTH 25 mg DAILY [facility] Administration Enoxaparin Sodium 40 mg 11/02/24 09:00 11/03/24 08:32 Enoxaparin 40 Mg/0.4 Ml Syringe SUB-Q 40 mg DAILY [facility] Administration Gabapentin 100 mg 11/02/24 12:00 11/03/24 11:13 Gabapentin 100 Mg Capsule BY MOUTH 100 mg DAILY@0800,1200 [facility] Administration Gabapentin 200 mg 11/02/24 21:00 11/02/24 20:35 Gabapentin 100 Mg Capsule BY MOUTH 200 mg HS [facility] Administration Glucagon 1 mg 11/01/24 20:18 Glucagon For Inj 1 Mg Vial IM PRN PRN Hypoglycemia Protocol Glucose 15 gm 11/01/24 20:18 Glucose Oral Gel 15 Gm Of Glucse In 37.5 Gm Tube PO PRN PRN Hypoglycemia Protocol Hydrochlorothiazide 25 mg 11/03/24 09:00 11/03/24 08:33 Hydrochlorothiazide 25 Mg Tablet BY MOUTH 25 mg QAM [facility] Administration Dextrose 1,000 mls @ 100 mls/hr 11/01/24 20:18 Dextrose 5% 1,000 Ml IVPB PRN PRN Hypoglycemia Protocol Insulin Aspart 2 - 5 units 11/02/24 08:00 11/03/24 11:28 Insulin Aspart (*Bkc) 100 Units/Ml SUB-Q Not Given TIDWM [facility] Protocol Insulin Aspart 1 - 2 units 11/01/24 21:00 11/02/24 20:36 Insulin Aspart (*Bkc) 100 Units/Ml SUB-Q 1 units HS [facility] Administration Protocol Levothyroxine Sodium 50 mcg 11/02/24 09:50 11/03/24 06:27 Levothyroxine Sodium 50 Mcg Tablet BY MOUTH 50 mcg DAILY@0630 [facility] Administration Loperamide HCl 2 mg 11/02/24 15:01 11/02/24 15:22 Loperamide Hcl 2 Mg Capsule PO 2 mg Q8HR PRN Administration Diarrhea Losartan Potassium 25 mg 11/02/24 09:40 11/03/24 08:34 Losartan Potassium 25 Mg Tablet BY MOUTH 25 mg DAILY [facility] Administration Meclizine HCl 25 mg 11/02/24 09:00 11/03/24 08:34 Meclizine Hcl 25 Mg Tablet PO 25 mg BID [facility]LO[facility] Administration Meclizine HCl 12.5 mg 11/02/24 09:36 Meclizine Hcl 12.5 Mg Tablet PO DAILY PRN dizziness Metoprolol Succinate 50 mg 11/02/24 09:40 11/03/24 08:33 Metoprolol Succinate Ext Rel 50 Mg Tabcr BY MOUTH 50 mg DAILY [facility] Administration Miscellaneous Information 1 each 11/02/24 00:01 11/03/24 08:32 Nonformulary Drug (Vibegron [Gemtesa] 75 Mg Tablet)Can Patient Use From Home? XX 12/02/24 00:00 Not Given CLARIFY [facility] Morphine Sulfate 4 mg 11/01/24 20:18 Morphine Sulfate (*Crx) 4 Mg/Ml Inj IV PUSH Q4H PRN Pain Rated 7-10 Non-Formulary Medication 75 mg 11/03/24 09:00 Vibegron [Gemtesa] PO 12/03/24 08:59 DAILY [facility] Potassium Chloride 20 meq 11/03/24 09:00 11/03/24 08:33 Potassium Chloride 20 Meq Er Tablet PO 20 meq DAILY [facility] Administration Radiology Results: ITS Impressions Chest X-Ray 11/01/24 15:14 IMPRESSION: No acute cardiopulmonary pathology Labs Labs: Laboratory Results - last 24 hr 11/02/24 11/02/24 11/02/24 11:30 15:27 20:11 WBC RBC Hgb Hct MCV MCH MCHC RDW Plt Count MPV Potassium POC Capillary Glucose 152 H 141 H 137 H Magnesium 11/03/24 11/03/24 11/03/24 04:52 07:45 11:19 WBC 8.8 RBC 5.32 Hgb 15.9 Hct 49.6 MCV 93.2 MCH 29.9 MCHC 32.1 RDW 14.0 Plt Count 158 MPV 9.6 Potassium 3.4 POC Capillary Glucose 126 H 142 H Magnesium 2.0 Quality VTE Prophylaxis VTE prophylaxis: pharmacologic ordered
[2024-11-03 14:36] VITALS: BP 136/59; PULSE 64; RESP 18; TEMP 36.6; O2SAT 95
[2024-11-03] MEDS: GABAPENTIN 100 MG CAPSULE 200 MG BY MOUTH (20:39)
[2024-11-03 20:56] VITALS: BP 144/63; PULSE 55; RESP 16; TEMP 36.6; O2SAT 96
[2024-11-04] VITALS (8 sets, daily range): BP systolic 121–162; BP diastolic 55–80; PULSE 56–65; RESP 16–18; TEMP 36.2–36.6; O2SAT 93–98
[2024-11-04 05:19] LABS: Hematocrit 49.3 % (42.0-52.0); Hemoglobin 16.1 g/dL (14.0-18.0); Mean Corpuscular HGB Conc 32.7 g/dl (32-36); Mean Corpuscular Hemoglobin 30.2 pg (26-34); Mean Corpuscular Volume 92.5 fl (80-100); Platelet Count Result 164 k/mm3 (150-375); Red Blood Count 5.33 M/mm3 (4.6-6.20); White Blood Count 9.6 K/mm3 (4.5-10.0)
[2024-11-04 05:31] LABS: Anion Gap 7 mmol/L (4-12); Blood Urea Nitrogen 21 mg/dL (9-20); Calcium 8.8 mg/dL (8.4-10.2); Carbon Dioxide 27 mmol/L (22-30); Chloride 104 mmol/L (98-107); Estimated CRCL calculation 60 ml/min; Estimated Glomerular Filt Rate 57; Glucose 141 mg/dL (65-110); Magnesium 2.1 mg/dL (1.6-2.3); Potassium 3.3 mmol/L (3.4-5.0); Sodium 138 mmol/L (137-145)
[2024-11-04] MEDS: LEVOTHYROXINE SODIUM 50 MCG TABLET BY MOUTH (06:08)
[2024-11-04] MEDS: METOPROLOL SUCCINATE EXT REL 50 MG TABCR BY MOUTH (08:42)
[2024-11-04] MEDS: CLOPIDOGREL BISULFATE 75 MG TABLET PO (08:42)
[2024-11-04] MEDS: ASPIRIN 81 MG CHEWABLE TABLET PO (08:42)
[2024-11-04] MEDS: MECLIZINE HCL 25 MG TABLET PO ×2 (08:42→17:14)
[2024-11-04] MEDS: EMPAGLIFLOZIN 25 MG TABLET BY MOUTH (08:42)
[2024-11-04] MEDS: EZETIMIBE 10 MG TABLET PO (08:43)
[2024-11-04] MEDS: GABAPENTIN 100 MG CAPSULE BY MOUTH ×2 (08:43→12:34)
[2024-11-04] MEDS: LOSARTAN POTASSIUM 25 MG TABLET BY MOUTH (08:43)
[2024-11-04] MEDS: ENOXAPARIN 40 MG/0.4 ML SYRINGE SUB-Q (08:43)
[2024-11-04] MEDS: POTASSIUM CHLORIDE 20 MEQ ER TABLET PO (08:43)
[2024-11-04] MEDS: POTASSIUM CHLORIDE 20 MEQ PACKET (FOR LIQUID) 40 MEQ PO (08:44)
[2024-11-04 11:47] LABS: Uric Acid 9.0 mg/dL (3.5-8.5)
--- NOTE | 2024-11-04 12:08 | PM.IMPN ---
Progress Note: A&P Assessment and Plan (1) Chest pain: Qualifiers: Chest pain type: unspecified Qualified Code(s): R07.9 - Chest pain, unspecified Code(s): R07.9 - Chest pain, unspecified Status: Acute Assessment and Plan: Negative tropes x2 EKG without any ischemic changes Continue telemetry Complete 3 trop rule out Aspirin 324 mg chewable given in ED Heart score 5 Low suspicion of ACS. P.r.n. morphine 4 mg IV push q.4 hours ordered for severe pain Tylenol 1000 mg p.o. q.6 hours ordered for xylx-[id number] pain. Daily labs (2) Hypertension: Code(s): I10 - Essential (primary) hypertension Status: Chronic Assessment and Plan: Continue home medications once they have been confirmed and verified. Trended monitor vital signs (3) Type 2 diabetes mellitus: Code(s): E11.9 - Type 2 diabetes mellitus without complications Status: Chronic Assessment and Plan: Hold oral hypoglycemics Adult sliding scale insulin protocol Hypoglycemic protocol Glucose checks a.c. and HS Diabetic diet Check A1c (4) Vertigo: Code(s): R42 - Dizziness and giddiness Status: Chronic Assessment and Plan: Continue home dose of meclizine During his recent hospitalization in which she was just discharged yesterday it was found that patient had bilateral mastoid effusion. He has been referred to [facility] for follow-up. (5) Impaired renal function: Code(s): N28.9 - Disorder of kidney and ureter, unspecified Status: Chronic Assessment and Plan: Chronic kidney disease stage 3 Baseline creatinine to 1.4-1.6. Continue to monitor. Patient current creatinine is 1.24 which is better than his baseline. (6) Sleep apnea: Code(s): G47.30 - Sleep apnea, unspecified Status: Chronic Assessment and Plan: CPAP with home settings Plan Patient denies any CP, his chest pain has resolved, as his 3 sets of cardiac enzymes are negative and there are no acute changes on his EKG. patient does complaints of back pain and difficulty with ambulation, today patient stats his left foot has gout flare and its painful, I did examine the and did not any erythema along 1st metatarsal or the G. Toe, patient is on HCTZ which can exacerbate gout will dc the medication, will add amlodipine, will start on allopurinol 50mg qd, will have PT/OT evaluate the patient, will continue to monitor and plan. Subjective Date/time seen: 11/04/24 12:08 Interval history: Chest pain Narrative: This is a 74-year-old male patient with past medical history coronary artery disease status post PCI x5, carotid artery stenosis, BPH, chronic kidney disease stage IIIB, peripheral vascular disease, peripheral neuropathy, sleep apnea, type 2 diabetes mellitus who comes to the emergency room after just being discharged yesterday now with complaints of chest pain. As noted patient was discharged yesterday after being admitted and evaluated for his dizziness by Neurology and he states upon discharge his symptoms have not gotten any better and he has started having pain in the middle of his back radiating around to his chest and he states he is ?having a heart attack. He was referred to Cardiology due to having episodes of trigeminy but has yet to make an appointment within. There was no concern of cardiac causation being the cause of patient's dizziness during his recent admission, but as noted he did have bilateral mastoid effusions which could be the cause of his dizziness so he was referred to ENT. Regardless, the patient's dizziness is chronic in nature and has been present for years and is routinely controlled with meclizine. However patient states that since he was discharged yesterday all of his medications that he normally keeps in his car, have disappeared and he has none of his medications to take. Patient is responsible for dosing his own medications, he reportedly lives at home with his 2 sisters and despite multiple conversations refuses to entertain the idea of assisted living. His pain that he presents with today he states started last evening, is in the center of his back and radiates around to his chest. He has no associated dyspnea, nausea or vomiting. No diaphoresis. In the ER workup was performed that shows stable vital signs, EKG Showing normal sinus rhythm rate of 73 with left axis deviation and left ventricular hypertrophy. CBC metabolic panel essentially unremarkable. BNP is 513. He has 2- troponins. D-dimer was 0.37, PTT 27.7, PT 13.0, INR 1.0. Chest x-ray was negative for any acute abnormal findings. He has a heart score 5 and is being admitted to the hospital for a fall rule out of ACS given his symptoms and risk factors. Again had a discussion with the patient at the bedside that he likely is at a point where he needs more help in caring for himself in managing medications and I suggested assisted living but he will not entertain the thought. He was given medications of potassium chloride 20 mEq for marginally low potassium of 3.3 and given Lasix 20 mg IV push for his evidence of potential fluid overload. He is being admitted in the current setting for a complete rule out with troponins and telemetry monitoring. Patient denies any CP, his chest pain has resolved, as his 3 sets of cardiac enzymes are negative and there are no acute changes on his EKG. patient does complaints of back pain and difficulty with ambulation, today patient stats his left foot has gout flare and its painful, I did examine the and did not any erythema along 1st metatarsal or the G. Toe, patient is on HCTZ which can exacerbate gout will dc the medication, will add amlodipine, will start on allopurinol 50mg qd, will have PT/OT evaluate the patient, will continue to monitor and plan. Review of Systems Review of Systems: All systems reviewed & are unremarkable except as noted in HPI and below Exam Narrative: Patient is comfortable, NAD HEENT: eyes are clear and none icteric LUNGS:CTA HEART: RR S1S2 ABD: BS+, Soft and nontender Lower extremities: no edema, left foot there no sign of erythema along 1st metatarsal or the G. Toe SKIN: nonjaundiced Neuro: grossly intact. Objective Data Vital Signs Vital Signs: Vital Signs - 24 hr 11/03/24 14:36 11/03/24 20:00 11/03/24 20:56 Temperature 36.6 C 36.6 C Pulse Rate 64 55 L Respiratory Rate 18 16 Blood Pressure 136/59 L 144/63 H Pulse Oximetry 95 96 Oxygen Delivery Room Air 11/04/24 04:52 11/04/24 08:32 11/04/24 08:38 Temperature 36.5 C 36.2 C L 36.2 C L Pulse Rate 56 L 65 61 Respiratory Rate 16 18 16 Blood Pressure 160/71 H 162/80 H 162/80 H Pulse Oximetry 93 94 98 Oxygen Delivery 11/04/24 08:42 11/04/24 08:43 Temperature Pulse Rate 61 61 Respiratory Rate 16 Blood Pressure Pulse Oximetry 98 Oxygen Delivery Room Air Intake/Output Intake/Output: Intake & Output 11/01/24 11/02/24 11/03/2411/04/25 23:59 23:59 23:59 23:59 Intake Total 1442 1170 740 Output Total 7144 1350 1000 Balance -58 -608 -579 Meds/Results Medications: Active Medications Generic Name Dose Route Start Last Admin Trade Name Freq PRN Reason Stop Dose Admin Acetaminophen 1,000 mg 11/01/24 20:18 Acetaminophen 500 Mg Tablet PO Q6H PRN Mild Pain (1-3) or Fever Allopurinol 50 mg 11/04/24 12:05 Allopurinol 50 Mg Tablet PO DAILY@0800 [facility] Amlodipine Besylate 5 mg 11/04/24 12:10 Amlodipine Besylate 5 Mg Tablet PO DAILY CARLOZ Aspirin 81 mg 11/03/24 09:00 11/04/24 08:42 Aspirin 81 Mg Chewable Tablet PO 81 mg DAILY CARLOZ Administration Clopidogrel Bisulfate 75 mg 11/03/24 09:00 11/04/24 08:42 Clopidogrel Bisulfate 75 Mg Tablet PO 75 mg DAILY CARLOZ Administration Dextrose 12.5 gm 11/01/24 20:18 Dextrose 50% 25 Gm/50 Ml Syringe IV PUSH PRN PRN Hypoglycemia Protocol Ezetimibe 10 mg 11/03/24 09:00 11/04/24 08:43 Ezetimibe 10 Mg Tablet PO 10 mg DAILY CARLOZ Administration Empagliflozin 25 mg 11/02/24 09:40 11/04/24 08:42 Empagliflozin 25 Mg Tablet BY MOUTH 25 mg DAILY CARLOZ Administration Enoxaparin Sodium 40 mg 11/02/24 09:00 11/04/24 08:43 Enoxaparin 40 Mg/0.4 Ml Syringe SUB-Q 40 mg DAILY CARLOZ Administration Gabapentin 100 mg 11/02/24 12:00 11/04/24 08:43 Gabapentin 100 Mg Capsule BY MOUTH 100 mg DAILY@0800,1200 CAR[facility] Administration Gabapentin 200 mg 11/02/24 21:00 11/03/24 20:39 Gabapentin 100 Mg Capsule BY MOUTH 200 mg HS CARLOZ Administration Glucagon 1 mg 11/01/24 20:18 Glucagon For Inj 1 Mg Vial IM PRN PRN Hypoglycemia Protocol Glucose 15 gm 11/01/24 20:18 Glucose Oral Gel 15 Gm Of Glucse In 37.5 Gm Tube PO PRN PRN Hypoglycemia Protocol Dextrose 1,000 mls @ 100 mls/hr 11/01/24 20:18 Dextrose 5% 1,000 Ml IVPB PRN PRN Hypoglycemia Protocol Insulin Aspart 2 - 5 units 11/02/24 08:00 11/04/24 08:51 Insulin Aspart (*Bkc) 100 Units/Ml SUB-Q Not Given TIDWM CARLOZ Protocol Insulin Aspart 1 - 2 units 11/01/24 21:00 11/03/24 22:18 Insulin Aspart (*Bkc) 100 Units/Ml SUB-Q Not Given HS [facility] Protocol Levothyroxine Sodium 50 mcg 11/02/24 09:50 11/04/24 06:08 Levothyroxine Sodium 50 Mcg Tablet BY MOUTH 50 mcg DAILY@0630 [facility] Administration Loperamide HCl 2 mg 11/02/24 15:01 11/02/24 15:22 Loperamide Hcl 2 Mg Capsule PO 2 mg Q8HR PRN Administration Diarrhea Losartan Potassium 25 mg 11/02/24 09:40 11/04/24 08:43 Losartan Potassium 25 Mg Tablet BY MOUTH 25 mg DAILY [facility]LO[facility] Administration Meclizine HCl 25 mg 11/02/24 09:00 11/04/24 08:42 Meclizine Hcl 25 Mg Tablet PO 25 mg BID CARLOZ Administration Meclizine HCl 12.5 mg 11/02/24 09:36 Meclizine Hcl 12.5 Mg Tablet PO DAILY PRN dizziness Metoprolol Succinate 50 mg 11/02/24 09:40 11/04/24 08:42 Metoprolol Succinate Ext Rel 50 Mg Tabcr BY MOUTH 50 mg DAILY [facility] Administration Miscellaneous Information 1 each 11/02/24 00:01 11/03/24 08:32 Nonformulary Drug (Vibegron [Gemtesa] 75 Mg Tablet)Can Patient Use From Home? XX 12/02/24 00:00 Not Given CLARIFY [facility]LO[facility] Morphine Sulfate 4 mg 11/01/24 20:18 Morphine Sulfate (*Crx) 4 Mg/Ml Inj IV PUSH Q4H PRN Pain Rated 7-10 Non-Formulary Medication 75 mg 11/03/24 09:00 Vibegron [Gemtesa] PO 12/03/24 08:59 DAILY [facility] Potassium Chloride 20 meq 11/03/24 09:00 11/04/24 08:43 Potassium Chloride 20 Meq Er Tablet PO 20 meq DAILY CARLOZ Administration Radiology Results: ITS Impressions Chest X-Ray 11/01/24 15:14 IMPRESSION: No acute cardiopulmonary pathology Labs Labs: Laboratory Results - last 24 hr 11/03/24 11/03/24 11/04/24 16:33 20:51 04:50 WBC 9.6 RBC 5.33 Hgb 16.1 Hct 49.3 MCV 92.5 MCH 30.2 MCHC 32.7 RDW 14.4 Plt Count 164 MPV 9.8 Sodium 138 Potassium 3.3 L Chloride 104 Carbon Dioxide 27 Anion Gap 7 BUN 21 H Creatinine 1.25 Estim Creat Clear Calc 60 Estimated GFR 57 L Glucose 141 H POC Capillary Glucose 197 H 183 H Uric Acid 9.0 H Calcium 8.8 Magnesium 2.1 11/04/24 08:14 WBC RBC Hgb Hct MCV MCH MCHC RDW Plt Count MPV Sodium Potassium Chloride Carbon Dioxide Anion Gap BUN Creatinine Estim Creat Clear Calc Estimated GFR Glucose POC Capillary Glucose 143 H Uric Acid Calcium Magnesium Quality VTE Prophylaxis VTE prophylaxis: pharmacologic ordered
[2024-11-04] MEDS: INSULIN ASPART (*BKC) 100 UNITS/ML SUB-Q (12:34)
[2024-11-04] MEDS: allopurinoL 50 MG TABLET PO (13:00)
[2024-11-04] MEDS: GABAPENTIN 100 MG CAPSULE 200 MG BY MOUTH (20:39)
[2024-11-05] MEDS: traMADol HCL (*CRX) 25 MG TABLET PO ×2 (04:49→10:40)
[2024-11-05 04:53] LABS: Hematocrit 48.7 % (42.0-52.0); Hemoglobin 15.6 g/dL (14.0-18.0); Mean Corpuscular HGB Conc 32.0 g/dl (32-36); Mean Corpuscular Hemoglobin 29.7 pg (26-34); Mean Corpuscular Volume 92.6 fl (80-100); Platelet Count Result 162 k/mm3 (150-375); Red Blood Count 5.26 M/mm3 (4.6-6.20); White Blood Count 11.3 K/mm3 (4.5-10.0)
[2024-11-05 05:04] LABS: Anion Gap 4 mmol/L (4-12); Blood Urea Nitrogen 20 mg/dL (9-20); Calcium 8.7 mg/dL (8.4-10.2); Carbon Dioxide 31 mmol/L (22-30); Chloride 103 mmol/L (98-107); Estimated CRCL calculation 55 ml/min; Estimated Glomerular Filt Rate 52; Glucose 147 mg/dL (65-110); Magnesium 2.1 mg/dL (1.6-2.3); Potassium 3.3 mmol/L (3.4-5.0); Sodium 138 mmol/L (137-145)
[2024-11-05 05:28] VITALS: BP 152/55; PULSE 62; RESP 16; TEMP 36.6; O2SAT 95
[2024-11-05] MEDS: LEVOTHYROXINE SODIUM 50 MCG TABLET BY MOUTH (05:53)
[2024-11-05 09:04] VITALS: BP 179/69; PULSE 62; RESP 20; TEMP 36.6; O2SAT 94
[2024-11-05 09:13] VITALS: PULSE 62
[2024-11-05] MEDS: GABAPENTIN 100 MG CAPSULE BY MOUTH ×2 (09:13→11:58)
[2024-11-05] MEDS: EZETIMIBE 10 MG TABLET PO (09:13)
[2024-11-05] MEDS: allopurinoL 50 MG TABLET PO (09:13)
[2024-11-05] MEDS: METOPROLOL SUCCINATE EXT REL 50 MG TABCR BY MOUTH (09:13)
[2024-11-05] MEDS: POTASSIUM CHLORIDE 20 MEQ ER TABLET PO (09:14)
[2024-11-05] MEDS: ASPIRIN 81 MG CHEWABLE TABLET PO (09:14)
[2024-11-05] MEDS: CLOPIDOGREL BISULFATE 75 MG TABLET PO (09:14)
[2024-11-05] MEDS: MECLIZINE HCL 25 MG TABLET PO ×2 (09:14→16:35)
[2024-11-05] MEDS: LOSARTAN POTASSIUM 25 MG TABLET BY MOUTH (09:14)
[2024-11-05] MEDS: ENOXAPARIN 40 MG/0.4 ML SYRINGE SUB-Q (09:14)
[2024-11-05] MEDS: EMPAGLIFLOZIN 25 MG TABLET BY MOUTH (09:18)
[2024-11-05] MEDS: POTASSIUM CHLORIDE 20 MEQ PACKET (FOR LIQUID) 40 MEQ PO (09:18)
[2024-11-05 11:55] VITALS: BP 131/75; PULSE 63; O2SAT 98
[2024-11-05] MEDS: INSULIN ASPART (*BKC) 100 UNITS/ML SUB-Q ×2 (11:59→21:41)
--- NOTE | 2024-11-05 14:34 | PCSTNOTE ---
Please refer to the Bedside Swallow Evaluation in the EMR. Please note, silent aspiration cannot be ruled out at bedside. The above pt, admitted with chest pain, was seen for a bedside swallow evaluation due to RN witnessed cough/choking spell this am. He reportedly has a h/o a CVA last year and now reports that he has had intermittent difficulty swallowing for about a year. He reports the following: his sister states he takes too big of bites and eats too fast, he sneezes often after meals, and it feels like his throat gets smaller and smaller when eating. Upper partial noted but lower natural dentition is good condition; oral mucosa is normal and a cursory oral motor evaluation revealed adequate lingual and labial function in regards to ROM and strength. He reported 10/10 L foot pain due to gout. The pt was positioned in a seated position at the bedside. He was presented with an ice chip, 5 ml thin liquids, pudding, varying size bites of a cracker, and thin liquids in uncontrolled amounts via cup drinking. Pt was instructed to take a small sip but proceeded to take consecutive swallows. The oral stages appeared WFL. Throat clearing was noted after the ice chip and a subtle cough was noted after one of the cracker trials. Swallow reflex appeared timely and laryngeal elevation appeared adequate but intermittent overt s/s of aspiration still occurred. Impression/recommendations: questionable degree of dysphagia; pt has many complaints that may further indicate dysphagia. Recommend MBS to further assess swallow ability, determine a safe diet and appropriate POC; pt (and nursing) was instructed to eat slow & take small sips and bites; it was also suggested that the pt be OOB for meals.
[2024-11-05 14:41] VITALS: BP 148/63; PULSE 61; RESP 20; TEMP 36.8; O2SAT 95
--- NOTE | 2024-11-05 15:09 | P.PNIM_ITS ---
Progress Note: A&P Assessment and Plan (1) Chest pain: Qualifiers: Chest pain type: unspecified Qualified Code(s): R07.9 - Chest pain, unspecified Code(s): R07.9 - Chest pain, unspecified Status: Acute Assessment and Plan: * Negative tropes x2 * EKG without any ischemic changes * Continue telemetry * Complete 3 trop rule out * Aspirin 324 mg chewable given in ED * Heart score 5 * Low suspicion of ACS. * P.r.n. morphine 4 mg IV push q.4 hours ordered for severe pain * Tylenol 1000 mg p.o. q.6 hours ordered for [id number] pain. * Daily labs (2) Hypertension: Code(s): I10 - Essential (primary) hypertension Status: Chronic Assessment and Plan: * Continue home medications once they have been confirmed and verified. * Trended monitor vital signs (3) Type 2 diabetes mellitus: Code(s): E11.9 - Type 2 diabetes mellitus without complications Status: Chronic Assessment and Plan: * Hold oral hypoglycemics * Adult sliding scale insulin protocol * Hypoglycemic protocol * Glucose checks a.c. and HS * Diabetic diet * Check A1c (4) Vertigo: Code(s): R42 - Dizziness and giddiness Status: Chronic Assessment and Plan: * Continue home dose of meclizine * During his recent hospitalization in which she was just discharged yesterday it was found that patient had bilateral mastoid effusion. He has been referred to [facility] for follow-up. (5) Impaired renal function: Code(s): N28.9 - Disorder of kidney and ureter, unspecified Status: Chronic Assessment and Plan: * Chronic kidney disease stage 3 * Baseline creatinine to 1.4-1.6. * Continue to monitor. Patient current creatinine is 1.24 which is better than his baseline. (6) Sleep apnea: Code(s): G47.30 - Sleep apnea, unspecified Status: Chronic Assessment and Plan: * CPAP with home settings Plan Patient denies any CP, his chest pain has resolved, as his 3 sets of cardiac enzymes are negative and there are no acute changes on his EKG. patient does complaints of back pain and difficulty with ambulation, on 11/04 patient stated his left foot has gout flare up and its painful, I did examine the foot and did not any erythema along 1st metatarsal or the G. Toe, patient is on HCTZ which can exacerbate gout will dc the medication, will add amlodipine, will start on allopurinol 50mg qd, patient had c/o CP unable give indomthacin, has history of DM unable to give steroids however in the patien he has received steroid injection that has helped, will consult his orthopedic, patient had difficulty swallowing, was seen by speech, will have MBS, will have PT/OT evaluate the patient, will continue to monitor and plan. Subjective Date/time seen: 11/05/24 15:09 Interval history: Chest pain Narrative: This is a 74-year-old male patient with past medical history coronary artery disease status post PCI x5, carotid artery stenosis, BPH, chronic kidney disease stage IIIB, peripheral vascular disease, peripheral neuropathy, sleep apnea, type 2 diabetes mellitus who comes to the emergency room after just being discharged yesterday now with complaints of chest pain. As noted patient was discharged yesterday after being admitted and evaluated for his dizziness by Neurology and he states upon discharge his symptoms have not gotten any better and he has started having pain in the middle of his back radiating around to his chest and he states he is ?having a heart attack. He was referred to Cardiology due to having episodes of trigeminy but has yet to make an appointment within. There was no concern of cardiac causation being the cause of patient's dizziness during his recent admission, but as noted he did have bilateral mastoid effusions which could be the cause of his dizziness so he was referred to ENT. Regardless, the patient's dizziness is chronic in nature and has been present for years and is routinely controlled with meclizine. However patient states that since he was discharged yesterday all of his medications that he normally keeps in his car, have disappeared and he has none of his medications to take. Patient is responsible for dosing his own medications, he reportedly lives at home with his 2 sisters and despite multiple conversations refuses to entertain the idea of assisted living. His pain that he presents with today he states started last evening, is in the center of his back and radiates around to his chest. He has no associated dyspnea, nausea or vomiting. No diaphoresis. In the ER workup was performed that shows stable vital signs, EKG Showing normal sinus rhythm rate of 73 with left axis deviation and left ventricular hypertrophy. CBC metabolic panel essentially unremarkable. BNP is 513. He has 2- troponins. D-dimer was 0.37, PTT 27.7, PT 13.0, INR 1.0. Chest x-ray was negative for any acute abnormal findings. He has a heart score 5 and is being admitted to the hospital for a fall rule out of ACS given his symptoms and risk factors. Again had a discussion with the patient at the bedside that he likely is at a point where he needs more help in caring for himself in managing medications and I suggested assisted living but he will not entertain the thought. He was given medications of potassium chloride 20 mEq for marginally low potassium of 3.3 and given Lasix 20 mg IV push for his evidence of potential fluid overload. He is being admitted in the current setting for a complete rule out with troponins and telemetry monitoring. Patient denies any CP, his chest pain has resolved, as his 3 sets of cardiac enzymes are negative and there are no acute changes on his EKG. patient does complaints of back pain and difficulty with ambulation, on 11/04 patient stated his left foot has gout flare up and its painful, I did examine the foot and did not any erythema along 1st metatarsal or the G. Toe, patient is on HCTZ which can exacerbate gout will dc the medication, will add amlodipine, will start on allopurinol 50mg qd, patient had c/o CP unable give indomthacin, has history of DM unable to give steroids however in the patien he has received steroid injection that has helped, will consult his orthopedic, patient had difficulty swallowing, was seen by speech, will have MBS, will have PT/OT evaluate the patient, will continue to monitor and plan. Review of Systems Review of Systems: All systems reviewed & are unremarkable except as noted in HPI and below Exam Narrative: Morbidly Obese Patient is comfortable, NAD HEENT: eyes are clear and none icteric LUNGS:CTA HEART: RR S1S2 ABD: BS+, Soft and nontender Lower extremities: no edema, left foot there no sign of erythema along 1st metatarsal or the G. Toe SKIN: nonjaundiced Neuro: grossly intact. Objective Data Vital Signs Vital Signs: Vital Signs - 24 hr 11/04/24 19:23 11/04/24 20:00 11/04/24 21:38 Temperature 36.6 C Pulse Rate 60 Respiratory Rate 16 Blood Pressure 121/55 L Pulse Oximetry 93 94 Oxygen Delivery Room Air Room Air 11/05/24 05:28 11/05/24 09:04 11/05/24 09:04 Temperature 36.6 C 36.6 C Pulse Rate 62 62 62 Respiratory Rate 16 20 20 Blood Pressure 152/55 H 179/69 H Pulse Oximetry 95 94 94 Oxygen Delivery Room Air 11/05/24 09:13 11/05/24 11:55 11/05/24 14:41 Temperature 36.8 C Pulse Rate 62 63 61 Respiratory Rate 20 Blood Pressure 131/75 148/63 H Pulse Oximetry 98 95 Oxygen Delivery Intake/Output Intake/Output: Intake & Output 11/02/24 11/03/24 11/04/24 11/05/24 23:59 23:59 23:59 23:59 Intake Total 1442 1170 1270 610 Output Total 1500 1350 1950 700 Balance -58 -180 -680 -90 Meds/Results Medications: Active Medications Generic Name Dose Route Start Last Admin Trade Name Freq PRN Reason Stop Dose Admin Acetaminophen 1,000 mg 11/01/24 20:18 Acetaminophen 500 Mg Tablet PO Q6H PRN Mild Pain (1-3) or Fever Allopurinol 50 mg 11/04/24 12:05 11/05/24 09:13 Allopurinol 50 Mg Tablet PO 50 mg DAILY@0800 CARLOZ Administration Amlodipine Besylate 5 mg 11/04/24 12:10 11/05/24 09:13 Amlodipine Besylate 5 Mg Tablet PO 5 mg DAILY CARLOZ Administration Aspirin 81 mg 11/03/24 09:00 11/05/24 09:14 Aspirin 81 Mg Chewable Tablet PO 81 mg DAILY CARLOZ Administration Clopidogrel Bisulfate 75 mg 11/03/24 09:00 11/05/24 09:14 Clopidogrel Bisulfate 75 Mg Tablet PO 75 mg DAILY CARLOZ Administration Dextrose 12.5 gm 11/01/24 20:18 Dextrose 50% 25 Gm/50 Ml Syringe IV PUSH PRN PRN Hypoglycemia Protocol Ezetimibe 10 mg 11/03/24 09:00 11/05/24 09:13 Ezetimibe 10 Mg Tablet PO 10 mg DAILY CARLOZ Administration Empagliflozin 25 mg 11/02/24 09:40 11/05/24 09:18 Empagliflozin 25 Mg Tablet BY MOUTH 25 mg DAILY CARLOZ Administration Enoxaparin Sodium 40 mg 11/02/24 09:00 11/05/24 09:14 Enoxaparin 40 Mg/0.4 Ml Syringe SUB-Q 40 mg DAILY CARLOZ Administration Gabapentin 100 mg 11/02/24 12:00 11/05/24 11:58 Gabapentin 100 Mg Capsule BY MOUTH 100 mg DAILY@0800,1200 CARLOZ Administration Gabapentin 200 mg 11/02/24 21:00 11/04/24 20:39 Gabapentin 100 Mg Capsule BY MOUTH 200 mg HS CARLOZ Administration Glucagon 1 mg 11/01/24 20:18 Glucagon For Inj 1 Mg Vial IM PRN PRN Hypoglycemia Protocol Glucose 15 gm 11/01/24 20:18 Glucose Oral Gel 15 Gm Of Glucse In 37.5 Gm Tube PO PRN PRN Hypoglycemia Protocol Dextrose 1,000 mls @ 100 mls/hr 11/01/24 20:18 Dextrose 5% 1,000 Ml IVPB PRN PRN Hypoglycemia Protocol Insulin Aspart 2 - 5 units 11/02/24 08:00 11/05/24 11:59 Insulin Aspart (*Bkc) 100 Units/Ml SUB-Q 2 units TIDWM CARLOZ Administration Protocol Insulin Aspart 1 - 2 units 11/01/24 21:00 11/04/24 21:22 Insulin Aspart (*Bkc) 100 Units/Ml SUB-Q Not Given HS CARLOZ Protocol Levothyroxine Sodium 50 mcg 11/02/24 09:50 11/05/24 05:53 Levothyroxine Sodium 50 Mcg Tablet BY MOUTH 50 mcg DAILY@0630 CARLOZ Administration Loperamide HCl 2 mg 11/02/24 15:01 11/02/24 15:22 Loperamide Hcl 2 Mg Capsule PO 2 mg Q8HR PRN Administration Diarrhea Losartan Potassium 25 mg 11/02/24 09:40 11/05/24 09:14 Losartan Potassium 25 Mg Tablet BY MOUTH 25 mg DAILY CARLOZ Administration Meclizine HCl 25 mg 11/02/24 09:00 11/05/24 09:14 Meclizine Hcl 25 Mg Tablet PO 25 mg BID CARLOZ Administration Meclizine HCl 12.5 mg 11/02/24 09:36 Meclizine Hcl 12.5 Mg Tablet PO DAILY PRN dizziness Metoprolol Succinate 50 mg 11/02/24 09:40 11/05/24 09:13 Metoprolol Succinate Ext Rel 50 Mg Tabcr BY MOUTH 50 mg DAILY CARLOZ Administration Miscellaneous Information 1 each 11/02/24 00:01 11/03/24 08:32 Nonformulary Drug (Vibegron [Gemtesa] 75 Mg Tablet)Can Patient Use From Home? XX 12/02/24 00:00 Not Given CLARIFY CARLOZ Morphine Sulfate 4 mg 11/01/24 20:18 Morphine Sulfate (*Crx) 4 Mg/Ml Inj IV PUSH Q4H PRN Pain Rated 7-10 Non-Formulary Medication 75 mg 11/03/24 09:00 Vibegron [Gemtesa] PO 12/03/24 08:59 DAILY CARLOZ Potassium Chloride 20 meq 11/03/24 09:00 11/05/24 09:14 Potassium Chloride 20 Meq Er Tablet PO 20 meq DAILY CARLOZ Administration Tramadol HCl 25 mg 11/04/24 12:08 11/05/24 10:40 Tramadol Hcl (*Crx) 25 Mg Tablet PO 25 mg Q6H PRN Administration Pain Rated 4-6 Radiology Results: ITS Impressions Chest X-Ray 11/01/24 15:14 IMPRESSION: No acute cardiopulmonary pathology Labs Labs: Laboratory Results - last 24 hr 11/04/24 11/04/24 11/05/24 17:09 19:27 04:41 WBC 11.3 H RBC 5.26 Hgb 15.6 Hct 48.7 MCV 92.6 MCH 29.7 MCHC 32.0 RDW 14.6 H Plt Count 162 MPV 9.5 Sodium 138 Potassium 3.3 L Chloride 103 Carbon Dioxide 31 H Anion Gap 4 BUN 20 Creatinine 1.36 H Estim Creat Clear Calc 55 Estimated GFR 52 L Glucose 147 H POC Capillary Glucose 124 H 173 H Calcium 8.7 Magnesium 2.1 11/05/24 11/05/24 07:56 11:36 WBC RBC Hgb Hct MCV MCH MCHC RDW Plt Count MPV Sodium Potassium Chloride Carbon Dioxide Anion Gap BUN Creatinine Estim Creat Clear Calc Estimated GFR Glucose POC Capillary Glucose 137 H 222 H Calcium Magnesium Quality VTE Prophylaxis VTE prophylaxis: pharmacologic ordered
[2024-11-05] MEDS: GABAPENTIN 100 MG CAPSULE 200 MG BY MOUTH (20:09)
[2024-11-05 21:20] VITALS: BP 141/68; PULSE 60; RESP 16; TEMP 36.6; O2SAT 95
[2024-11-06] VITALS (8 sets, daily range): BP systolic 155–167; BP diastolic 61–72; PULSE 50–62; RESP 16–18; TEMP 36.3–36.6; O2SAT 95–98
[2024-11-06 05:14] LABS: Hematocrit 47.8 % (42.0-52.0); Hemoglobin 15.5 g/dL (14.0-18.0); Mean Corpuscular HGB Conc 32.4 g/dl (32-36); Mean Corpuscular Hemoglobin 30.1 pg (26-34); Mean Corpuscular Volume 92.8 fl (80-100); Platelet Count Result 157 k/mm3 (150-375); Red Blood Count 5.15 M/mm3 (4.6-6.20); White Blood Count 10.3 K/mm3 (4.5-10.0)
[2024-11-06 05:29] LABS: Anion Gap 7 mmol/L (4-12); Blood Urea Nitrogen 21 mg/dL (9-20); Calcium 8.7 mg/dL (8.4-10.2); Carbon Dioxide 27 mmol/L (22-30); Chloride 105 mmol/L (98-107); Estimated CRCL calculation 62 ml/min; Estimated Glomerular Filt Rate 58; Glucose 152 mg/dL (65-110); Magnesium 2.3 mg/dL (1.6-2.3); Potassium 3.5 mmol/L (3.4-5.0); Sodium 139 mmol/L (137-145)
[2024-11-06] MEDS: LEVOTHYROXINE SODIUM 50 MCG TABLET BY MOUTH (06:00)
[2024-11-06] MEDS: GABAPENTIN 100 MG CAPSULE BY MOUTH ×2 (08:28→12:11)
[2024-11-06] MEDS: allopurinoL 50 MG TABLET PO (08:28)
[2024-11-06] MEDS: EMPAGLIFLOZIN 25 MG TABLET BY MOUTH (08:31)
[2024-11-06] MEDS: ASPIRIN 81 MG CHEWABLE TABLET PO (08:31)
[2024-11-06] MEDS: CLOPIDOGREL BISULFATE 75 MG TABLET PO (08:31)
[2024-11-06] MEDS: EZETIMIBE 10 MG TABLET PO (08:31)
[2024-11-06] MEDS: MECLIZINE HCL 25 MG TABLET PO ×2 (08:32→16:51)
[2024-11-06] MEDS: POTASSIUM CHLORIDE 20 MEQ ER TABLET PO (08:32)
[2024-11-06] MEDS: LOSARTAN POTASSIUM 25 MG TABLET BY MOUTH (08:32)
[2024-11-06] MEDS: ENOXAPARIN 40 MG/0.4 ML SYRINGE SUB-Q (08:44)
--- NOTE | 2024-11-06 11:51 | PCSTNOTE ---
Please refer to the Modified Barium Swallow Evaluation in the EMR. The above pt was seen for an MBS due to intermittent overt s/s of aspiration exhibited during a bedside swallow evaluation; pt also has a h/o of a CVA and reports sneezing after meals (indicative of aspiration) and coughing during meals 1-2x/week. Pt has an upper partial denture; vocal quality was clear prior to the exam. Pt is Ox4 and able to explain swallow difficulty. Pt stated that 1 of his doctors told him he had pneumonia at one point but another stated it was not pneumonia. Pt was seated for a lateral view and presented with 5 ml of thin liquid barium via a spoon, pudding consistency barium via a spoon, mixed liquid/solid consistency via a spoon, cracker coated with barium pudding via spoon, and an uncontrolled thin liquid barium bolus. This was presented via a straw & cup. Oral preparatory and oral phase symptoms: within functional limits. Pharyngeal phase symptoms: large osteophyte at C3/4 and another slightly smaller one at C5/6 which potentially did not allow for full epiglottic inversion. Trace laryngeal penetration occurred intermittently throughout testing which was at times difficult to r/o due to previously penetrated remaining contents. No gross aspiration was noted but pt is at risk as at no time did he cough or throat clear. Penetrated contents were only cleared with he was given a verbal cue to cough/clear throat and dry swallow. Esophageal stage symptoms: none. No obvious or gross aspiration occurred but risk is present. Impression & Recommendations: Mild to moderate dysphagia due to a large osteophyte at C3/4 and another slightly smaller one at C5/6. Pt did not grossly aspirate but is at risk to aspirate trace amounts after every few sips and bites if he does not intentionally cough/throat clear and dry swallow. Level 7 regular solids and level 0 regular liquids can be continued but pt will need frequent meal time observation to remind him re the cough/throat clear and dry swallows after every 1-2 sips and bites. Monitor pulmonary status ongoing. No ST at this time.
[2024-11-06] MEDS: POTASSIUM CHLORIDE 20 MEQ PACKET (FOR LIQUID) 40 MEQ PO (12:11)
[2024-11-06] MEDS: COLCHICINE 0.6 MG TABLET PO (15:05)
--- NOTE | 2024-11-06 16:43 | P.CONOP_ITS ---
Assessment and Plan Assessment and plan (1) Foot pain: Qualifiers: Laterality: left Qualified Code(s): M79.672 - Pain in left foot Code(s): M79.673 - Pain in unspecified foot Status: Acute Assessment and Plan: Updated history, physical exam and radiographs reviewed with the patient. Interval changes reviewed. Increased left plantar foot and left hip pain. Discussed the condition, nature, etiology and course of natural history with the patient. Treatment options were reviewed. Risks and benefits of each as well as alternatives reviewed. The patient's questions were answered. History of left foot and left hip pain. He did not do well with previous cortisone injection for the foot. He currently has an active gout flare up with uric acid greater than 9. His treatment options are limited however due to renal insufficiency. He needs to be on more of a maintenance preventative treatment plan which may include allopurinol or Uloric. He is going to follow- up with primary care physician for this. MRI of the spine reviewed which shows severe degenerative changes, disc herniation and foraminal stenosis. This may be a radicular type pain and he should follow up with pain management or spine surgery as an outpatient. He states that he has done well with intramuscular cortisone injections and steroid dose packs in the past. Counseled patient that he should not take steroid dose packs due to renal implications and side effects. He has opted for intramuscular cortisone injection which was performed in the left buttock. Recommend stretching for the left foot. Cam walker boot offered but declined by the patient as he has tried these in the past. May be discharged from an orthopedic standpoint. Follow-up as needed. 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 Patient states he actually was worse after the injection and has declined injection at this time. Recommend calf, Achilles and ankle stretching, plantar fascia stretching. May consider formal physical therapy. (4) Left hip pain: Code(s): M25.552 - Pain in left hip Status: Acute (5) Trochanteric bursitis, left hip: Code(s): M70.62 - Trochanteric bursitis, left hip Status: Acute Assessment and Plan: Discussed condition with the patient. The nonoperative and operative treatment options reviewed. Risks and benefits of Cortisone injection as well as alternatives were reviewed. All of the patient's questions were answered. The risks of injection were reviewed including but not limited to skin color changes, atrophy of the soft tissue, tendon or soft tissue rupture, joint degeneration, hyper inflammatory response, allergic reaction, continued pain or dysfunction. Specific risks of the procedure including deep infection, hypertension, elevated blood sugar, soft tissue rupture or recurrence of symptoms reviewed. No guarantees were offered. The patient understands the need for possible further treatment. Patient verbalizes understanding and wishes to proceed. Left trochanteric bursa injection, gluteal cortisone injection. (6) Multilevel lumbosacral spondylosis with radiculopathy: Code(s): M47.27 - Other spondylosis with radiculopathy, lumbosacral region Status: Acute Assessment and Plan: MRI lumbar spine from 10/02/2024 reviewed. It shows moderate to severe spondylosis. Severe disc herniation at L5-S1 with spinal stenosis and bilateral foraminal stenosis. Moderate degenerative changes with foraminal stenosis at L4-L5. Left leg and foot pain may be component of radiculopathy. Recommend patient follow-up as an outpatient with Pain Management or spine surgery for evaluation and treatment options. History of Present Illness HPI Consult date: 11/06/24 Requesting physician: Hue La MD Chief complaint: Left leg and foot pain Narrative: 74-year-old admitted to the hospital with chest pain 3 days ago. Has developed left lateral hip and leg pain with pain on the plantar aspect of the left foot. Patient tried to get up with therapy yesterday and weight-bearing noted increased pain. No other injury. He has had a history of left foot pain with previous plantar fascia injection which he states made his foot worse. He has also had a workup for left hip and found to have trochanteric bursitis. More recently his workup in the hospital involved a uric acid level which was greater than 9 consistent with active gout. He has pain when he lays on the left hip when in bed. Pain with weight-bearing of the foot. Review of Systems 2 Constitutional: Constitutional: Denies fever(s) Eyes: Eyes: Denies blurry vision ENT: Reports Normal hearing present Cardiovascular: Cardiovascular: Denies chest pain and Denies dyspnea Respiratory: Respiratory: Denies dyspnea and Denies wheezing Gastrointestinal: Gastrointestinal: Denies abdominal pain Genitourinary: Genitourinary: Denies urinary urgency Musculoskeletal: Musculoskeletal: Reports as per HPI and Denies numbness Integumentary/Breasts: Skin/Breast: Denies changing lesions and Denies sores Neurologic: Reports Normal hearing present, Denies behavioral changes, Denies confusion, Denies numbness and Denies convulsions Psychiatric: Psychiatric: Denies behavioral changes, Denies confusion and Denies hallucinations Endocrine: Endocrine: Denies heat intolerance Hematologic/Lymphatic: Hematologic/Lymphatic: Denies easy bleeding Allergic/Immunologic: Allergic/Immunologic: Denies wheezing [facility], LAT[facility] Past Medical History Medical History (Updated 11/06/24 @ 16:51 by Chad Tong MD) 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 Heart disease Hypertension Mother No problems noted. Sibling Acute myocardial infarction Social History Social History Social History: Surrogate medical decision maker: Kandice Arceo, daughter ([phone]). Code status: Full code. Smoking packs per day: 1 Smoking cigarettes per day: 20.0 Smoking status: Former smoker Tobacco type: cigarettes Second hand tobacco smoke exposure: No Smoking end date: 11/13/86 Alcohol intake: never Substance use: never Substance use type: does not use Do You Feel Safe in your Home?: Yes Lack of Transportation: No Lack of Food: Never True Current Housing: I Have Housing Concerned About Future Housing: No Difficulty Paying Gas/Electric Bills: No Difficulty Paying for Meds: No Currently Unemployed: No Education: Trade/Vocational Certificate Difficulty w/ Childcare or Family Care: No Living arrangements: with family Occupation/Education: retired 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 Spiritual care concerns: No Meds Home Medications and Allergies Home Medications ?Medication ?Instructions ?Recorded ?Confirmed ?Type aspirin 81 mg chewable tablet 81 mg PO DAILY 07/28/22 11/01/24 History (Leroy Chewable Low Dose Aspirin) clopidogrel 75 mg tablet (Plavix) 75 mg PO DAILY 11/23/23 11/01/24 History ezetimibe 10 mg tablet (Zetia) 10 mg PO DAILY 11/23/23 11/01/24 History meclizine 12.5 mg tablet 12.5 mg PO DAILY PRN dizziness #30 03/26/24 11/01/24 Rx tabs vibegron 75 mg tablet (Gemtesa) 75 mg PO DAILY #30 tabs 03/27/24 11/01/24 Rx gabapentin 100 mg capsule See Rx Instructions .Route 07/30/24 11/01/24 Rx .COMPLEX #120 caps empagliflozin 25 mg tablet See Rx Instructions .Route 08/16/24 11/01/24 Rx (Jardiance) .COMPLEX #90 tabs levothyroxine 50 mcg tablet See Rx Instructions .Route 08/16/24 11/01/24 Rx .COMPLEX #90 tabs metoprolol succinate 50 mg See Rx Instructions .Route 08/16/24 11/01/24 Rx tablet,extended release 24 hr .COMPLEX #90 tabs potassium chloride 20 mEq 20 meq PO DAILY #3 tabs 10/30/24 11/01/24 Rx tablet,extended release (K-Tab) hydrochlorothiazide 25 mg tablet See Rx Instructions .Route 10/31/24 11/01/24 Rx .COMPLEX #90 tabs losartan 25 mg tablet See Rx Instructions .Route 10/31/24 11/01/24 Rx .COMPLEX #90 tabs Allergies Allergy/AdvReac Type Severity Reaction Status Date / Time ceftriaxone (From Rocephin) Allergy Unknown Nausea Verified 11/01/24 19:32 [id number] Reductase Allergy Unknown Unknown Verified 11/01/24 19:32 Inhibitor Vital Signs Vital Signs - 24 hr 11/05/24 20:00 11/05/24 21:20 11/06/24 06:22 Temperature 97.9 F 97.9 F Pulse Rate 60 62 Respiratory Rate 16 16 Blood Pressure 141/68 H 155/61 H Pulse Oximetry 95 95 Oxygen Delivery Room Air 11/06/24 08:00 11/06/24 08:27 11/06/24 08:36 Temperature Pulse Rate 56 L 50 L Respiratory Rate Blood Pressure 160/62 H Pulse Oximetry 96 95 Oxygen Delivery Room Air 11/06/24 16:34 Temperature 97.3 F L Pulse Rate 56 L Respiratory Rate 18 Blood Pressure 163/72 H Pulse Oximetry 98 Oxygen Delivery Exam 2 Const: General: healthy appearing; No in distress or confusion O rientation/consciousness: oriented to person, oriented to place, oriented to time and No confusion HENMT: Head: normal to inspection, normocephalic and atraumatic Eyes: Conjunctivae: conjunctivae normal Sclera: sclerae normal Neck: Neck: supple and nontender Resp: Effort & Inspection: normal respiratory effort and no audible wheezes Cardio: Rate: regular rate Rhythm: regular rhythm Skin: General skin exam: no rashes or lesions noted Neuro: General: oriented to person, oriented to place, oriented to time and No confusion Extrem: Right upper extremity: normal to inspection Left upper extremity: n ormal to inspection Right lower extremity: normal to inspection, normal capillary refill, ankle Details: normal to inspection and normal ROM (Dorsiflexion -5 , planter flexion 50, inversion 20, E version 10 ); no tenderness and no swelling and foot Details: vascular exam (2+ dorsalis pedis pulse ) Details: dorsalis pedis pulse present and normal capillary refill, tendon exam Details: active flexion normal and active extension normal and motor-sensory exam (strength 5/5 throughout . Light touch sensation intact throughout ) Details: two point discrimination normal Location: in all toes and light-touch normal; no tenderness and no crepitus; no edema Left lower extremity: hip/thigh Details: normal to inspection and tenderness Location: of the hip Location: laterally and over the great trochanter; no ecchymosis, ankle Details: abnormal ROM (dorsiflexion -10, plantarflexion 40, inversion 15, eversion 10); no tenderness and no swelling and foot Details: tenderness Location: of the plantar foot (heel/ plantar fascia) Location: proximally, toes with normal ROM, vascular exam (2+ dorsalis pedis pulse) Details: dorsalis pedis pulse present and normal capillary refill and motor-sensory exam (strength 5/5. ) two point discrimination abnormal in all toes and light-touch abnormal in all toes; no ecchymosis Psych: Affect: normal affect Results Labs 11/06/24 04:56 11/06/24 04:56 Labs: Abnormal lab results 11/05/24 11/05/24 11/06/24 Range/Units 16:52 21:18 04:56 WBC 10.3 H (4.5-10.0) K/mm3 BUN 21 H (9-20) mg/dL Estimated GFR 58 L (59 - ) Glucose 152 H (65-110) mg/dL POC Capillary Glucose 122 H 229 H (65-105) mg/dl 11/06/24 11/06/24 Range/Units 08:06 11:24 WBC (4.5-10.0) K/mm3 BUN (9-20) mg/dL Estimated GFR (59 - ) Glucose (65-110) mg/dL POC Capillary Glucose 132 H 195 H (65-105) mg/dl H & H 11/01/24 11/02/24 11/03/24 Range/Units 14:00 04:07 04:52 Hgb 16.2 15.5 15.9 (14.0-18.0) g/dL Hct 49.7 47.8 49.6 (42.0-52.0) % 11/04/24 11/05/24 11/06/24 Range/Units 04:50 04:41 04:56 Hgb 16.1 15.6 15.5 (14.0-18.0) g/dL Hct 49.3 48.7 47.8 (42.0-52.0) % Coagulation 11/01/24 Range/Units 14:00 INR 1.0 All other labs normal. Office Procedure General Pre-Procedure Pre-procedure care: Consent was obtained, Procedures/risks were explained, Questions were answered, Correct patient identified and Correct side and site confirmed Procedure Procedure Details: Left hip trochanteric bursa injection. Procedure explained, consent given. Left hip prepped with alcohol prep solution. 25 gauge needle used to inject 40 mg of Depo-Medrol into the left trochanteric bursa and 40 mg Depo-Medrol into the left gluteal muscle. Sterile bandage applied. Patient tolerated without complication. 0.25% Marcaine plain, 2 cc mixed with the injection. Post Procedure Patient tolerated the procedure well?: Tolerated procedure well
--- NOTE | 2024-11-06 18:31 | P.PNIM_ITS ---
Progress Note: A&P Assessment and Plan (1) Chest pain: Qualifiers: Chest pain type: unspecified Qualified Code(s): R07.9 - Chest pain, unspecified Code(s): R07.9 - Chest pain, unspecified Status: Acute Assessment and Plan: * Negative tropes x2 * EKG without any ischemic changes * Continue telemetry * Complete 3 trop rule out * Aspirin 324 mg chewable given in ED * Heart score 5 * Low suspicion of ACS. * P.r.n. morphine 4 mg IV push q.4 hours ordered for severe pain * Tylenol 1000 mg p.o. q.6 hours ordered for [id number] pain. * Daily labs (2) Hypertension: Code(s): I10 - Essential (primary) hypertension Status: Chronic Assessment and Plan: * Continue home medications once they have been confirmed and verified. * Trended monitor vital signs (3) Type 2 diabetes mellitus: Code(s): E11.9 - Type 2 diabetes mellitus without complications Status: Chronic Assessment and Plan: * Hold oral hypoglycemics * Adult sliding scale insulin protocol * Hypoglycemic protocol * Glucose checks a.c. and HS * Diabetic diet * Check A1c (4) Vertigo: Code(s): R42 - Dizziness and giddiness Status: Chronic Assessment and Plan: * Continue home dose of meclizine * During his recent hospitalization in which she was just discharged yesterday it was found that patient had bilateral mastoid effusion. He has been referred to [facility] Th[facility] for follow-up. (5) Impaired renal function: Code(s): N28.9 - Disorder of kidney and ureter, unspecified Status: Chronic Assessment and Plan: * Chronic kidney disease stage 3 * Baseline creatinine to 1.4-1.6. * Continue to monitor. Patient current creatinine is 1.24 which is better than his baseline. (6) Sleep apnea: Code(s): G47.30 - Sleep apnea, unspecified Status: Chronic Assessment and Plan: * CPAP with home settings Plan Patient denies any CP, his chest pain has resolved, as his 3 sets of cardiac enzymes are negative and there are no acute changes on his EKG. patient does complaints of back pain and difficulty with ambulation, on 11/04 patient stated his left foot has gout flare up and its painful, I did examine the foot and did not any erythema along 1st metatarsal or the G. Toe, patient is on HCTZ which can exacerbate gout will dc the medication, will add amlodipine, will start on allopurinol 50mg qd, patient had c/o CP unable give indomthacin, has history of DM unable to give steroids however in the past he has received steroid injection that has helped and was given by Dr. Paulino, discuss with the orthopedic today, he will and evaluate the patient and further recommendation to follow. patient had difficulty swallowing, was seen by speech, will have MBS, will have PT/OT evaluate the patient, will continue to monitor and plan. Subjective Date/time seen: 11/06/24 18:31 Interval history: Chest pain Narrative: This is a 74-year-old male patient with past medical history coronary artery disease status post PCI x5, carotid artery stenosis, BPH, chronic kidney disease stage IIIB, peripheral vascular disease, peripheral neuropathy, sleep apnea, type 2 diabetes mellitus who comes to the emergency room after just being discharged yesterday now with complaints of chest pain. As noted patient was discharged yesterday after being admitted and evaluated for his dizziness by Neurology and he states upon discharge his symptoms have not gotten any better and he has started having pain in the middle of his back radiating around to his chest and he states he is ?having a heart attack. He was referred to Cardiology due to having episodes of trigeminy but has yet to make an appointment within. There was no concern of cardiac causation being the cause of patient's dizziness during his recent admission, but as noted he did have bilateral mastoid effusions which could be the cause of his dizziness so he was referred to ENT. Regardless, the patient's dizziness is chronic in nature and has been present for years and is routinely controlled with meclizine. However patient states that since he was discharged yesterday all of his medications that he normally keeps in his car, have disappeared and he has none of his medications to take. Patient is responsible for dosing his own medications, he reportedly lives at home with his 2 sisters and despite multiple conversations refuses to entertain the idea of assisted living. His pain that he presents with today he states started last evening, is in the center of his back and radiates around to his chest. He has no associated dyspnea, nausea or vomiting. No diaphoresis. In the ER workup was performed that shows stable vital signs, EKG Showing normal sinus rhythm rate of 73 with left axis deviation and left ventricular hypertrophy. CBC metabolic panel essentially unremarkable. BNP is 513. He has 2- troponins. D-dimer was 0.37, PTT 27.7, PT 13.0, INR 1.0. Chest x-ray was negative for any acute abnormal findings. He has a heart score 5 and is being admitted to the hospital for a fall rule out of ACS given his symptoms and risk factors. Again had a discussion with the patient at the bedside that he likely is at a point where he needs more help in caring for himself in managing medications and I suggested assisted living but he will not entertain the thought. He was given medications of potassium chloride 20 mEq for marginally low potassium of 3.3 and given Lasix 20 mg IV push for his evidence of potential fluid overload. He is being admitted in the current setting for a complete rule out with troponins and telemetry monitoring. Patient denies any CP, his chest pain has resolved, as his 3 sets of cardiac enzymes are negative and there are no acute changes on his EKG. patient does complaints of back pain and difficulty with ambulation, on 11/04 patient stated his left foot has gout flare up and its painful, I did examine the foot and did not any erythema along 1st metatarsal or the G. Toe, patient is on HCTZ which can exacerbate gout will dc the medication, will add amlodipine, will start on allopurinol 50mg qd, patient had c/o CP unable give indomthacin, has history of DM unable to give steroids however in the past he has received steroid injection that has helped and was given by Dr. Paulino, discuss with the orthopedic today, he will and evaluate the patient and further recommendation to follow. patient had difficulty swallowing, was seen by speech, will have MBS, will have PT/OT evaluate the patient, will continue to monitor and plan. Review of Systems Review of Systems: All systems reviewed & are unremarkable except as noted in HPI and below Exam Narrative: Morbidly Obese Patient is comfortable, NAD HEENT: eyes are clear and none icteric LUNGS:CTA HEART: RR S1S2 ABD: BS+, Soft and nontender Lower extremities: no edema, left foot there no sign of erythema along 1st metatarsal or the G. Toe SKIN: nonjaundiced Neuro: grossly intact. Objective Data Vital Signs Vital Signs: Vital Signs - 24 hr 11/05/24 20:00 11/05/24 21:20 11/06/24 06:22 Temperature 36.6 C 36.6 C Pulse Rate 60 62 Respiratory Rate 16 16 Blood Pressure 141/68 H 155/61 H Pulse Oximetry 95 95 Oxygen Delivery Room Air 11/06/24 08:00 11/06/24 08:27 11/06/24 08:36 Temperature Pulse Rate 56 L 50 L Respiratory Rate Blood Pressure 160/62 H Pulse Oximetry 96 95 Oxygen Delivery Room Air 11/06/24 16:34 Temperature 36.3 C L Pulse Rate 56 L Respiratory Rate 18 Blood Pressure 163/72 H Pulse Oximetry 98 Oxygen Delivery Intake/Output Intake/Output: Intake & Output 11/03/24 11/04/24 11/05/24 11/06/24 23:59 23:59 23:59 23:59 Intake Total 1170 1270 1210 1470 Output Total 1350 1950 1300 1650 Balance -180 -680 -90 -180 Meds/Results Medications: Active Medications Generic Name Dose Route Start Last Admin Trade Name Juanita PRN Reason Stop Dose Admin Acetaminophen 1,000 mg 11/01/24 20:18 Acetaminophen 500 Mg Tablet PO Q6H PRN Mild Pain (1-3) or Fever Allopurinol 50 mg 11/04/24 12:05 11/06/24 08:28 Allopurinol 50 Mg Tablet PO 50 mg DAILY@0800 CARLOZ Administration Amlodipine Besylate 5 mg 11/04/24 12:10 11/06/24 08:31 Amlodipine Besylate 5 Mg Tablet PO 5 mg DAILY CARLOZ Administration Aspirin 81 mg 11/03/24 09:00 11/06/24 08:31 Aspirin 81 Mg Chewable Tablet PO 81 mg DAILY CARLOZ Administration Clopidogrel Bisulfate 75 mg 11/03/24 09:00 11/06/24 08:31 Clopidogrel Bisulfate 75 Mg Tablet PO 75 mg DAILY CARLOZ Administration Colchicine 0.3 mg 11/07/24 09:00 Colchicine 0.3 Mg Tablet PO QAM [facility] Dextrose 12.5 gm 11/01/24 20:18 Dextrose 50% 25 Gm/50 Ml Syringe IV PUSH PRN PRN Hypoglycemia Protocol Ezetimibe 10 mg 11/03/24 09:00 11/06/24 08:31 Ezetimibe 10 Mg Tablet PO 10 mg DAILY CARLOZ Administration Empagliflozin 25 mg 11/02/24 09:40 11/06/24 08:31 Empagliflozin 25 Mg Tablet BY MOUTH 25 mg DAILY CARLOZ Administration Enoxaparin Sodium 40 mg 11/02/24 09:00 11/06/24 08:44 Enoxaparin 40 Mg/0.4 Ml Syringe SUB-Q 40 mg DAILY CARLOZ Administration Gabapentin 100 mg 11/02/24 12:00 11/06/24 12:11 Gabapentin 100 Mg Capsule BY MOUTH 100 mg DAILY@0800,1200 CARLOZ Administration Gabapentin 200 mg 11/02/24 21:00 11/05/24 20:09 Gabapentin 100 Mg Capsule BY MOUTH 200 mg HS CARLOZ Administration Glucagon 1 mg 11/01/24 20:18 Glucagon For Inj 1 Mg Vial IM PRN PRN Hypoglycemia Protocol Glucose 15 gm 11/01/24 20:18 Glucose Oral Gel 15 Gm Of Glucse In 37.5 Gm Tube PO PRN PRN Hypoglycemia Protocol Dextrose 1,000 mls @ 100 mls/hr 11/01/24 20:18 Dextrose 5% 1,000 Ml IVPB PRN PRN Hypoglycemia Protocol Insulin Aspart 2 - 5 units 11/02/24 08:00 11/06/24 16:50 Insulin Aspart (*Bkc) 100 Units/Ml SUB-Q Not Given TIDWM CARLOZ Protocol Insulin Aspart 1 - 2 units 11/01/24 21:00 11/05/24 21:41 Insulin Aspart (*Bkc) 100 Units/Ml SUB-Q 1 units HS CARLOZ Administration Protocol Levothyroxine Sodium 50 mcg 11/02/24 09:50 11/06/24 06:00 Levothyroxine Sodium 50 Mcg Tablet BY MOUTH 50 mcg DAILY@0630 CARLOZ Administration Loperamide HCl 2 mg 11/02/24 15:01 11/02/24 15:22 Loperamide Hcl 2 Mg Capsule PO 2 mg Q8HR PRN Administration Diarrhea Losartan Potassium 25 mg 11/02/24 09:40 11/06/24 08:32 Losartan Potassium 25 Mg Tablet BY MOUTH 25 mg DAILY CARLOZ Administration Meclizine HCl 25 mg 11/02/24 09:00 11/06/24 16:51 Meclizine Hcl 25 Mg Tablet PO 25 mg BID CARLOZ Administration Meclizine HCl 12.5 mg 11/02/24 09:36 Meclizine Hcl 12.5 Mg Tablet PO DAILY PRN dizziness Metoprolol Succinate 50 mg 11/02/24 09:40 11/06/24 08:36 Metoprolol Succinate Ext Rel 50 Mg Tabcr BY MOUTH Not Given DAILY [facility] Miscellaneous Information 1 each 11/02/24 00:01 11/03/24 08:32 Nonformulary Drug (Vibegron [Gemtesa] 75 Mg Tablet)Can Patient Use From Home? XX 12/02/24 00:00 Not Given CLARIFY CARLOZ Morphine Sulfate 4 mg 11/01/24 20:18 Morphine Sulfate (*Crx) 4 Mg/Ml Inj IV PUSH Q4H PRN Pain Rated 7-10 Non-Formulary Medication 75 mg 11/03/24 09:00 Vibegron [Gemtesa] PO 12/03/24 08:59 DAILY CARLOZ Potassium Chloride 20 meq 11/03/24 09:00 11/06/24 08:32 Potassium Chloride 20 Meq Er Tablet PO 20 meq DAILY CARLOZ Administration Tramadol HCl 25 mg 11/04/24 12:08 11/05/24 10:40 Tramadol Hcl (*Crx) 25 Mg Tablet PO 25 mg Q6H PRN Administration Pain Rated 4-6 Radiology Results: ITS Impressions Chest X-Ray 11/01/24 15:14 IMPRESSION: No acute cardiopulmonary pathology Modified Barium Swallow 11/06/24 14:07 IMPRESSION: Mild pharyngeal dysphagia with laryngeal penetration without aspiration. Please correlate with speech pathologist findings and specific feeding recommendations. Labs Labs: Laboratory Results - last 24 hr 11/05/24 11/06/24 11/06/24 21:18 04:56 08:06 WBC 10.3 H RBC 5.15 Hgb 15.5 Hct 47.8 MCV 92.8 MCH 30.1 MCHC 32.4 RDW 14.4 Plt Count 157 MPV 10.2 Sodium 139 Potassium 3.5 Chloride 105 Carbon Dioxide 27 Anion Gap 7 BUN 21 H Creatinine 1.22 Estim Creat Clear Calc 62 Estimated GFR 58 L Glucose 152 H POC Capillary Glucose 229 H 132 H Calcium 8.7 Magnesium 2.3 11/06/24 11/06/24 11:24 16:49 WBC RBC Hgb Hct MCV MCH MCHC RDW Plt Count MPV Sodium Potassium Chloride Carbon Dioxide Anion Gap BUN Creatinine Estim Creat Clear Calc Estimated GFR Glucose POC Capillary Glucose 195 H 169 H Calcium Magnesium Quality VTE Prophylaxis VTE prophylaxis: pharmacologic ordered
[2024-11-06] MEDS: GABAPENTIN 100 MG CAPSULE 200 MG BY MOUTH (21:01)
[2024-11-06] MEDS: INSULIN ASPART (*BKC) 100 UNITS/ML SUB-Q (21:02)
[2024-11-07 05:15] LABS: Hematocrit 47.6 % (42.0-52.0); Hemoglobin 15.5 g/dL (14.0-18.0); Mean Corpuscular HGB Conc 32.6 g/dl (32-36); Mean Corpuscular Hemoglobin 30.1 pg (26-34); Mean Corpuscular Volume 92.4 fl (80-100); Platelet Count Result 170 k/mm3 (150-375); Red Blood Count 5.15 M/mm3 (4.6-6.20); White Blood Count 10.4 K/mm3 (4.5-10.0)
[2024-11-07] MEDS: LEVOTHYROXINE SODIUM 50 MCG TABLET BY MOUTH (05:45)
[2024-11-07 05:55] VITALS: BP 163/63; PULSE 53; RESP 16; TEMP 36.2; O2SAT 95
[2024-11-07 05:56] LABS: Anion Gap 6 mmol/L (4-12); Blood Urea Nitrogen 22 mg/dL (9-20); Calcium 9.1 mg/dL (8.4-10.2); Carbon Dioxide 27 mmol/L (22-30); Chloride 106 mmol/L (98-107); Estimated CRCL calculation 68 ml/min; Estimated Glomerular Filt Rate > 60; Glucose 155 mg/dL (65-110); Magnesium 2.2 mg/dL (1.6-2.3); Potassium 4.0 mmol/L (3.4-5.0); Sodium 139 mmol/L (137-145)
[2024-11-07 08:46] VITALS: PULSE 73
[2024-11-07] MEDS: ASPIRIN 81 MG CHEWABLE TABLET PO (08:46)
[2024-11-07] MEDS: METOPROLOL SUCCINATE EXT REL 50 MG TABCR BY MOUTH (08:46)
[2024-11-07] MEDS: GABAPENTIN 100 MG CAPSULE BY MOUTH ×2 (08:46→12:26)
[2024-11-07] MEDS: MECLIZINE HCL 25 MG TABLET PO ×2 (08:46→18:28)
[2024-11-07] MEDS: allopurinoL 50 MG TABLET PO (08:46)
[2024-11-07] MEDS: LOSARTAN POTASSIUM 25 MG TABLET BY MOUTH (08:49)
[2024-11-07] MEDS: POTASSIUM CHLORIDE 20 MEQ ER TABLET PO (08:49)
[2024-11-07] MEDS: COLCHICINE 0.3 MG TABLET PO (08:49)
[2024-11-07] MEDS: EMPAGLIFLOZIN 25 MG TABLET BY MOUTH (08:49)
[2024-11-07] MEDS: EZETIMIBE 10 MG TABLET PO (08:49)
[2024-11-07] MEDS: CLOPIDOGREL BISULFATE 75 MG TABLET PO (08:49)
[2024-11-07] MEDS: ENOXAPARIN 40 MG/0.4 ML SYRINGE SUB-Q (08:52)
[2024-11-07 14:49] VITALS: BP 159/64; PULSE 59; RESP 14; TEMP 36.2; O2SAT 97
--- NOTE | 2024-11-07 20:47 | PCRCNOTE ---
Pt refused BIPAP CPAP dose not wear at home.
[2024-11-07 20:48] VITALS: PULSE 51; O2SAT 93
[2024-11-07] MEDS: GABAPENTIN 100 MG CAPSULE 200 MG BY MOUTH (21:13)
[2024-11-07] MEDS: INSULIN ASPART (*BKC) 100 UNITS/ML SUB-Q (21:14)
[2024-11-08] VITALS: BP 167/60; PULSE 60; RESP 18; TEMP 36.2; O2SAT 96
[2024-11-08 05:43] LABS: Hematocrit 50.2 % (42.0-52.0); Hemoglobin 16.2 g/dL (14.0-18.0); Mean Corpuscular HGB Conc 32.3 g/dl (32-36); Mean Corpuscular Hemoglobin 30.2 pg (26-34); Mean Corpuscular Volume 93.7 fl (80-100); Platelet Count Result 180 k/mm3 (150-375); Red Blood Count 5.36 M/mm3 (4.6-6.20); White Blood Count 10.7 K/mm3 (4.5-10.0)
[2024-11-08 05:54] LABS: Anion Gap 6 mmol/L (4-12); Blood Urea Nitrogen 21 mg/dL (9-20); Calcium 9.2 mg/dL (8.4-10.2); Carbon Dioxide 27 mmol/L (22-30); Chloride 107 mmol/L (98-107); Estimated CRCL calculation 66 ml/min; Estimated Glomerular Filt Rate > 60; Glucose 150 mg/dL (65-110); Magnesium 2.3 mg/dL (1.6-2.3); Potassium 3.7 mmol/L (3.4-5.0); Sodium 140 mmol/L (137-145)
[2024-11-08] MEDS: LEVOTHYROXINE SODIUM 50 MCG TABLET BY MOUTH (06:18)
[2024-11-08 06:48] VITALS: BP 167/78; PULSE 60; RESP 18; TEMP 36.3; O2SAT 97
--- NOTE | 2024-11-08 08:28 | P.PNIM_ITS ---
Progress Note: A&P Assessment and Plan (1) Chest pain: Qualifiers: Chest pain type: unspecified Qualified Code(s): R07.9 - Chest pain, unspecified Code(s): R07.9 - Chest pain, unspecified Status: Acute Assessment and Plan: * Negative tropes x2 * EKG without any ischemic changes * Continue telemetry * Complete 3 trop rule out * Aspirin 324 mg chewable given in ED * Heart score 5 * Low suspicion of ACS. * P.r.n. morphine 4 mg IV push q.4 hours ordered for severe pain * Tylenol 1000 mg p.o. q.6 hours ordered for ibyv-[id number]-pzauffxw pain. * Daily labs (2) Hypertension: Code(s): I10 - Essential (primary) hypertension Status: Chronic Assessment and Plan: * Continue home medications once they have been confirmed and verified. * Trended monitor vital signs * Blood pressure above goal, increase amlodipine 5mg to 10mg (3) Type 2 diabetes mellitus: Code(s): E11.9 - Type 2 diabetes mellitus without complications Status: Chronic Assessment and Plan: Home med : Jardiance 25, HgbA1c 7.6 * Holding jardiance * Adult sliding scale insulin protocol * Hypoglycemic protocol * Glucose checks a.c. and HS * Diabetic diet (4) Vertigo: Code(s): R42 - Dizziness and giddiness Status: Chronic Assessment and Plan: * Continue home dose of meclizine * During his recent hospitalization in which she was just discharged yesterday it was found that patient had bilateral mastoid effusion. He has been referred to [facility] Nose and Throat for follow-up. * PT/OT evaluating (5) Impaired renal function: Code(s): N28.9 - Disorder of kidney and ureter, unspecified Status: Chronic Assessment and Plan: * Chronic kidney disease stage 3 * Baseline creatinine to 1.4-1.6. * Continue to monitor. Patient current creatinine is 1.24 which is better than his baseline. (6) Sleep apnea: Code(s): G47.30 - Sleep apnea, unspecified Status: Chronic Assessment and Plan: * CPAP with home settings (7) Acute pain: Code(s): R52 - Pain, unspecified Status: Acute Assessment and Plan: Pain to left hip and foot, asking for a steroid injection. Feels left hip is improved but left foot still unable to weight bear --Tylenol, IV morphine prn --Left foot x-ray today --Consider a short dose of NSAIDs --Reviewed orthopedic recs and did not recommend a steroid pack Time Spent With Patient Time: 37 minutes Subjective Date/time seen: 11/08/24 08:28 Interval history: This is a 74-year-old male patient hx CAD s/p PCI x5, DMII, admitted for chest pain, dizziness. Chest pain resolved today Still unable to put pressure on his left foot due to pain, using a wheeled walker with standby assist with PT X-ray to left foot Asking for a steroid dose pack, but orthopedic surgery recommended against it. Received a cortisone injection his left hip Review of Systems Review of Systems: All systems reviewed & are unremarkable except as noted in HPI and below Exam Narrative: Morbidly Obese Patient is comfortable, NAD HEENT: eyes are clear and none icteric LUNGS:CTA HEART: RR S1S2 ABD: BS+, Soft and nontender Lower extremities: no edema, left foot there no sign of erythema along 1st metatarsal. TTP plantar side of the longitudinal arch SKIN: nonjaundiced Neuro: grossly intact. Objective Data Vital Signs Vital Signs: Vital Signs - 24 hr 11/07/24 08:44 11/07/24 08:46 11/07/24 14:49 Temperature 97.1 F L Pulse Rate 73 59 L Respiratory Rate 14 Blood Pressure 159/64 H Pulse Oximetry 97 Oxygen Delivery Room Air 11/07/24 20:48 11/08/24 00:00 11/08/24 06:48 Temperature 97.2 F L 97.4 F L Pulse Rate 51 L 60 60 Respiratory Rate 18 18 Blood Pressure 167/60 H 167/78 H Pulse Oximetry 93 96 97 Oxygen Delivery Room Air Intake/Output Intake/Output: Intake & Output 11/05/24 11/06/24 11/07/24 11/08/24 23:59 23:59 23:59 23:59 Intake Total 1210 1470 1270 Output Total 1300 1650 1200 650 Balance -90 -180 70 -650 Meds/Results Medications: Active Medications Generic Name Dose Route Start Last Admin Trade Name Freq PRN Reason Stop Dose Admin Acetaminophen 1,000 mg 11/01/24 20:18 Acetaminophen 500 Mg Tablet PO Q6H PRN Mild Pain (1-3) or Fever Allopurinol 50 mg 11/04/24 12:05 11/07/24 08:46 Allopurinol 50 Mg Tablet PO 50 mg DAILY@0800 CARLOZ Administration Amlodipine Besylate 5 mg 11/04/24 12:10 11/07/24 08:49 Amlodipine Besylate 5 Mg Tablet PO 5 mg DAILY CARLOZ Administration Aspirin 81 mg 11/03/24 09:00 11/07/24 08:46 Aspirin 81 Mg Chewable Tablet PO 81 mg DAILY CARLOZ Administration Clopidogrel Bisulfate 75 mg 11/03/24 09:00 11/07/24 08:49 Clopidogrel Bisulfate 75 Mg Tablet PO 75 mg DAILY CARLOZ Administration Dextrose 12.5 gm 11/01/24 20:18 Dextrose 50% 25 Gm/50 Ml Syringe IV PUSH PRN PRN Hypoglycemia Protocol Ezetimibe 10 mg 11/03/24 09:00 11/07/24 08:49 Ezetimibe 10 Mg Tablet PO 10 mg DAILY CARLOZ Administration Empagliflozin 25 mg 11/02/24 09:40 11/07/24 08:49 Empagliflozin 25 Mg Tablet BY MOUTH 25 mg DAILY CARLOZ Administration Enoxaparin Sodium 40 mg 11/02/24 09:00 11/07/24 08:52 Enoxaparin 40 Mg/0.4 Ml Syringe SUB-Q 40 mg DAILY CARLOZ Administration Gabapentin 100 mg 11/02/24 12:00 11/07/24 12:26 Gabapentin 100 Mg Capsule BY MOUTH 100 mg DAILY@0800,1200 CARLOZ Administration Gabapentin 200 mg 11/02/24 21:00 11/07/24 21:13 Gabapentin 100 Mg Capsule BY MOUTH 200 mg HS CARLOZ Administration Glucagon 1 mg 11/01/24 20:18 Glucagon For Inj 1 Mg Vial IM PRN PRN Hypoglycemia Protocol Glucose 15 gm 11/01/24 20:18 Glucose Oral Gel 15 Gm Of Glucse In 37.5 Gm Tube PO PRN PRN Hypoglycemia Protocol Dextrose 1,000 mls @ 100 mls/hr 11/01/24 20:18 Dextrose 5% 1,000 Ml IVPB PRN PRN Hypoglycemia Protocol Insulin Aspart 2 - 5 units 11/02/24 08:00 11/07/24 18:07 Insulin Aspart (*Bkc) 100 Units/Ml SUB-Q Not Given TIDWM CARLOZ Protocol Insulin Aspart 1 - 2 units 11/01/24 21:00 11/07/24 21:14 Insulin Aspart (*Bkc) 100 Units/Ml SUB-Q 1 units HS CARLOZ Administration Protocol Levothyroxine Sodium 50 mcg 11/02/24 09:50 11/08/24 06:18 Levothyroxine Sodium 50 Mcg Tablet BY MOUTH 50 mcg DAILY@0630 CARLOZ Administration Loperamide HCl 2 mg 11/02/24 15:01 11/02/24 15:22 Loperamide Hcl 2 Mg Capsule PO 2 mg Q8HR PRN Administration Diarrhea Losartan Potassium 25 mg 11/02/24 09:40 11/07/24 08:49 Losartan Potassium 25 Mg Tablet BY MOUTH 25 mg DAILY CARLOZ Administration Meclizine HCl 25 mg 11/02/24 09:00 11/07/24 18:28 Meclizine Hcl 25 Mg Tablet PO 25 mg BID CARLOZ Administration Meclizine HCl 12.5 mg 11/02/24 09:36 Meclizine Hcl 12.5 Mg Tablet PO DAILY PRN dizziness Metoprolol Succinate 50 mg 11/02/24 09:40 11/07/24 08:46 Metoprolol Succinate Ext Rel 50 Mg Tabcr BY MOUTH 50 mg DAILY CARLOZ Administration Miscellaneous Information 1 each 11/02/24 00:01 11/08/24 07:40 Nonformulary Drug (Vibegron [Gemtesa] 75 Mg Tablet)Can Patient Use From Home? XX 12/02/24 00:00 Not Given CLARIFY [facility] Morphine Sulfate 4 mg 11/01/24 20:18 Morphine Sulfate (*Crx) 4 Mg/Ml Inj IV PUSH Q4H PRN Pain Rated 7-10 Non-Formulary Medication 75 mg 11/03/24 09:00 Vibegron [Gemtesa] PO 12/03/24 08:59 DAILY [facility] Potassium Chloride 20 meq 11/03/24 09:00 11/07/24 08:49 Potassium Chloride 20 Meq Er Tablet PO 20 meq DAILY CARLOZ Administration Tramadol HCl 25 mg 11/04/24 12:08 11/05/24 10:40 Tramadol Hcl (*Crx) 25 Mg Tablet PO 25 mg Q6H PRN Administration Pain Rated 4-6 Radiology Results: ITS Impressions Chest X-Ray 11/01/24 15:14 IMPRESSION: No acute cardiopulmonary pathology Modified Barium Swallow 11/06/24 14:07 IMPRESSION: Mild pharyngeal dysphagia with laryngeal penetration without aspiration. Please correlate with speech pathologist findings and specific feeding recommendations. Labs Labs: Laboratory Results - last 24 hr 11/07/24 11/07/24 11/07/24 11:23 17:20 20:41 WBC RBC Hgb Hct MCV MCH MCHC RDW Plt Count MPV Sodium Potassium Chloride Carbon Dioxide Anion Gap BUN Creatinine Estim Creat Clear Calc Estimated GFR Glucose POC Capillary Glucose 175 H 173 H 220 H Calcium Magnesium 11/08/24 11/08/24 05:22 07:19 WBC 10.7 H RBC 5.36 Hgb 16.2 Hct 50.2 MCV 93.7 MCH 30.2 MCHC 32.3 RDW 14.6 H Plt Count 180 MPV 9.9 Sodium 140 Potassium 3.7 Chloride 107 Carbon Dioxide 27 Anion Gap 6 BUN 21 H Creatinine 1.14 Estim Creat Clear Calc 66 Estimated GFR > 60 Glucose 150 H POC Capillary Glucose 130 H Calcium 9.2 Magnesium 2.3 Quality VTE Prophylaxis VTE prophylaxis: pharmacologic ordered Hospitalist MIPS Advance Care Plan I have confirmed that the patient's Advanced Care Plan is present, code status is documented, or surrogate decision maker is listed in patient medical record.: Yes Medication Reconciliation I have utilized all available resources to obtain, update and review the patients current medications (includes all prescriptions, OTC, herbals, cannabis, and nutritional supplements).: Yes
[2024-11-08] MEDS: ENOXAPARIN 40 MG/0.4 ML SYRINGE SUB-Q (09:14)
[2024-11-08 09:15] VITALS: PULSE 80
[2024-11-08] MEDS: allopurinoL 50 MG TABLET PO (09:15)
[2024-11-08] MEDS: CLOPIDOGREL BISULFATE 75 MG TABLET PO (09:15)
[2024-11-08] MEDS: EMPAGLIFLOZIN 25 MG TABLET BY MOUTH (09:15)
[2024-11-08] MEDS: MECLIZINE HCL 25 MG TABLET PO ×2 (09:15→16:15)
[2024-11-08] MEDS: POTASSIUM CHLORIDE 20 MEQ ER TABLET PO (09:15)
[2024-11-08] MEDS: EZETIMIBE 10 MG TABLET PO (09:15)
[2024-11-08] MEDS: METOPROLOL SUCCINATE EXT REL 50 MG TABCR BY MOUTH (09:15)
[2024-11-08] MEDS: GABAPENTIN 100 MG CAPSULE BY MOUTH ×2 (09:15→12:18)
[2024-11-08] MEDS: ASPIRIN 81 MG CHEWABLE TABLET PO (09:16)
[2024-11-08] MEDS: LOSARTAN POTASSIUM 25 MG TABLET BY MOUTH (09:17)
--- NOTE | 2024-11-08 10:55 | PCNWS ---
Weekly nutritional screen. Patient is tolerating current diet with adequate intake. No weight loss reported. No nutritional needs at this time.
[2024-11-08] MEDS: INSULIN ASPART (*BKC) 100 UNITS/ML SUB-Q ×2 (12:18→20:33)
--- NOTE | 2024-11-08 13:31 | PCOTNOTE ---
Attempted to see pt for OT treatment. Pt was offered to complete any self care tasks, therapeutic tasks, and/or strengthening. Pt declined each on and states Im just waiting to be released. Pt also is refusing any SNF for additional therapy services. Pt states that the steroid medication the doctor is supposed to check on will work and will be fine afterwards. Pt is educated on the importance of continued particpiation in therapy however, continues to refuse.
[2024-11-08 14:00] VITALS: BP 147/59; PULSE 59; RESP 16; TEMP 36.3; O2SAT 97
[2024-11-08 20:15] VITALS: BP 166/96; PULSE 52; RESP 20; TEMP 36.5; O2SAT 96
[2024-11-08] MEDS: GABAPENTIN 100 MG CAPSULE 200 MG BY MOUTH (20:34)
[2024-11-09 03:36] VITALS: BP 143/68
[2024-11-09 05:02] LABS: Hematocrit 50.9 % (42.0-52.0); Hemoglobin 16.2 g/dL (14.0-18.0); Mean Corpuscular HGB Conc 31.8 g/dl (32-36); Mean Corpuscular Hemoglobin 30.1 pg (26-34); Mean Corpuscular Volume 94.4 fl (80-100); Platelet Count Result 184 k/mm3 (150-375); Red Blood Count 5.39 M/mm3 (4.6-6.20); White Blood Count 10.3 K/mm3 (4.5-10.0)
[2024-11-09 05:16] LABS: Anion Gap 7 mmol/L (4-12); Blood Urea Nitrogen 21 mg/dL (9-20); Calcium 9.0 mg/dL (8.4-10.2); Carbon Dioxide 24 mmol/L (22-30); Chloride 109 mmol/L (98-107); Estimated CRCL calculation 72 ml/min; Estimated Glomerular Filt Rate > 60; Glucose 155 mg/dL (65-110); Magnesium 2.5 mg/dL (1.6-2.3); Potassium 3.8 mmol/L (3.4-5.0); Sodium 140 mmol/L (137-145)
[2024-11-09] MEDS: LEVOTHYROXINE SODIUM 50 MCG TABLET BY MOUTH (05:36)
[2024-11-09 06:35] VITALS: BP 170/80; PULSE 50; RESP 18; TEMP 36.8; O2SAT 96
[2024-11-09] MEDS: CLOPIDOGREL BISULFATE 75 MG TABLET PO (08:52)
[2024-11-09] MEDS: allopurinoL 50 MG TABLET PO (08:52)
[2024-11-09] MEDS: POTASSIUM CHLORIDE 20 MEQ ER TABLET PO (08:52)
[2024-11-09] MEDS: ASPIRIN 81 MG CHEWABLE TABLET PO (08:52)
[2024-11-09 08:53] VITALS: PULSE 60
[2024-11-09] MEDS: GABAPENTIN 100 MG CAPSULE BY MOUTH (08:53)
[2024-11-09] MEDS: EZETIMIBE 10 MG TABLET PO (08:53)
[2024-11-09] MEDS: LOSARTAN POTASSIUM 25 MG TABLET BY MOUTH (08:53)
[2024-11-09] MEDS: METOPROLOL SUCCINATE EXT REL 50 MG TABCR BY MOUTH (08:53)
[2024-11-09] MEDS: MECLIZINE HCL 25 MG TABLET PO (08:54)
[2024-11-09] MEDS: EMPAGLIFLOZIN 25 MG TABLET BY MOUTH (08:54)
[2024-11-09] MEDS: ENOXAPARIN 40 MG/0.4 ML SYRINGE SUB-Q (08:54)
--- NOTE | 2024-11-09 09:34 | P.PNIM_ITS ---
Progress Note: A&P Assessment and Plan (1) Chest pain: Qualifiers: Chest pain type: unspecified Qualified Code(s): R07.9 - Chest pain, unspecified Code(s): R07.9 - Chest pain, unspecified Status: Acute Assessment and Plan: * Negative tropes x2 * EKG without any ischemic changes * Continue telemetry * Complete 3 trop rule out * Aspirin 324 mg chewable given in ED * Heart score 5 * Low suspicion of ACS. * P.r.n. morphine 4 mg IV push q.4 hours ordered for severe pain * Tylenol 1000 mg p.o. q.6 hours ordered for [id number] pain. * Daily labs (2) Hypertension: Code(s): I10 - Essential (primary) hypertension Status: Chronic Assessment and Plan: * Continue home medications once they have been confirmed and verified. * Trended monitor vital signs * Blood pressure above goal, increase amlodipine 5mg to 10mg (3) Type 2 diabetes mellitus: Code(s): E11.9 - Type 2 diabetes mellitus without complications Status: Chronic Assessment and Plan: Home med : Jardiance 25, HgbA1c 7.6 * Holding jardiance * Adult sliding scale insulin protocol * Hypoglycemic protocol * Glucose checks a.c. and HS * Diabetic diet (4) Vertigo: Code(s): R42 - Dizziness and giddiness Status: Chronic Assessment and Plan: * Continue home dose of meclizine * During his recent hospitalization in which she was just discharged yesterday it was found that patient had bilateral mastoid effusion. He has been referred to [facility] for follow-up. * PT/OT evaluating (5) Impaired renal function: Code(s): N28.9 - Disorder of kidney and ureter, unspecified Status: Chronic Assessment and Plan: * Chronic kidney disease stage 3 * Baseline creatinine to 1.4-1.6. * Continue to monitor. Patient current creatinine is 1.24 which is better than his baseline. (6) Sleep apnea: Code(s): G47.30 - Sleep apnea, unspecified Status: Chronic Assessment and Plan: * CPAP with home settings (7) Acute pain: Code(s): R52 - Pain, unspecified Status: Acute Assessment and Plan: Pain to left hip and foot, asking for a steroid injection. Feels left hip is improved but left foot still unable to weight bear --Tylenol, IV morphine prn --Left foot x-ray today --Consider a short dose of NSAIDs --Reviewed orthopedic recs and did not recommend a steroid pack Subjective Date/time seen: 11/09/24 09:34 Interval history: This is a 74-year-old male patient hx CAD s/p PCI x5, DMII, admitted for chest pain, dizziness. Chest pain resolved today Still unable to put pressure on his left foot due to pain, using a wheeled walker with standby assist with PT X-ray to left foot showed a bone spur and changes to tendon Outpatient PT Asking for a steroid dose pack, but orthopedic surgery recommended against it. Received a cortisone injection his left hip. Creatinine improved, 1 dose of toradol today Review of Systems Review of Systems: All systems reviewed & are unremarkable except as noted in HPI and below Exam Narrative: Morbidly Obese Patient is comfortable, NAD HEENT: eyes are clear and none icteric LUNGS:CTA HEART: RR S1S2 ABD: BS+, Soft and nontender Lower extremities: no edema, left foot there no sign of erythema along 1st metat arsal. TTP plantar side of the longitudinal arch SKIN: nonjaundiced Neuro: grossly intact. Objective Data Vital Signs Vital Signs: Vital Signs - 24 hr 11/08/24 14:00 11/08/24 20:00 11/08/24 20:15 Temperature 97.3 F L 97.7 F Pulse Rate 59 L 52 L Respiratory Rate 16 20 Blood Pressure 147/59 H 166/96 H Pulse Oximetry 97 96 Oxygen Delivery Room Air 11/09/24 03:36 11/09/24 06:35 11/09/24 08:53 Temperature 98.3 F Pulse Rate 50 L 60 Respiratory Rate 18 Blood Pressure 143/68 H 170/80 H Pulse Oximetry 96 Oxygen Delivery Intake/Output Intake/Output: Intake & Output 11/06/24 11/07/24 11/08/24 11/09/24 23:59 23:59 23:59 23:59 Intake Total 1470 1270 1252 480 Output Total 1650 1200 1450 275 Balance -180 70 -198 205 Meds/Results Medications: Active Medications Generic Name Dose Route Start Last Admin Trade Name Freq PRN Reason Stop Dose Admin Acetaminophen 1,000 mg 11/01/24 20:18 Acetaminophen 500 Mg Tablet PO Q6H PRN Mild Pain (1-3) or Fever Allopurinol 50 mg 11/04/24 12:05 11/09/24 08:52 Allopurinol 50 Mg Tablet PO 50 mg DAILY@0800 CARLOZ Administration Amlodipine Besylate 10 mg 11/09/24 09:00 11/09/24 08:53 Amlodipine Besylate 10 Mg Tablet PO 10 mg DAILY CARLOZ Administration Aspirin 81 mg 11/03/24 09:00 11/09/24 08:52 Aspirin 81 Mg Chewable Tablet PO 81 mg DAILY CARLOZ Administration Clopidogrel Bisulfate 75 mg 11/03/24 09:00 11/09/24 08:52 Clopidogrel Bisulfate 75 Mg Tablet PO 75 mg DAILY CARLOZ Administration Dextrose 12.5 gm 11/01/24 20:18 Dextrose 50% 25 Gm/50 Ml Syringe IV PUSH PRN PRN Hypoglycemia Protocol Ezetimibe 10 mg 11/03/24 09:00 11/09/24 08:53 Ezetimibe 10 Mg Tablet PO 10 mg DAILY CARLOZ Administration Empagliflozin 25 mg 11/02/24 09:40 11/09/24 08:54 Empagliflozin 25 Mg Tablet BY MOUTH 25 mg DAILY CARLOZ Administration Enoxaparin Sodium 40 mg 11/02/24 09:00 11/09/24 08:54 Enoxaparin 40 Mg/0.4 Ml Syringe SUB-Q 40 mg DAILY CARLOZ Administration Gabapentin 100 mg 11/02/24 12:00 11/09/24 08:53 Gabapentin 100 Mg Capsule BY MOUTH 100 mg DAILY@0800,1200 CARLOZ Administration Gabapentin 200 mg 11/02/24 21:00 11/08/24 20:34 Gabapentin 100 Mg Capsule BY MOUTH 200 mg HS CARLOZ Administration Glucagon 1 mg 11/01/24 20:18 Glucagon For Inj 1 Mg Vial IM PRN PRN Hypoglycemia Protocol Glucose 15 gm 11/01/24 20:18 Glucose Oral Gel 15 Gm Of Glucse In 37.5 Gm Tube PO PRN PRN Hypoglycemia Protocol Dextrose 1,000 mls @ 100 mls/hr 11/01/24 20:18 Dextrose 5% 1,000 Ml IVPB PRN PRN Hypoglycemia Protocol Insulin Aspart 2 - 5 units 11/02/24 08:00 11/09/24 07:55 Insulin Aspart (*Bkc) 100 Units/Ml SUB-Q Not Given TIDWM CARLOZ Protocol Insulin Aspart 1 - 2 units 11/01/24 21:00 11/08/24 20:33 Insulin Aspart (*Bkc) 100 Units/Ml SUB-Q 1 units HS CARLOZ Administration Protocol Levothyroxine Sodium 50 mcg 11/02/24 09:50 11/09/24 05:36 Levothyroxine Sodium 50 Mcg Tablet BY MOUTH 50 mcg DAILY@0630 CARLOZ Administration Loperamide HCl 2 mg 11/02/24 15:01 11/02/24 15:22 Loperamide Hcl 2 Mg Capsule PO 2 mg Q8HR PRN Administration Diarrhea Losartan Potassium 25 mg 11/02/24 09:40 11/09/24 08:53 Losartan Potassium 25 Mg Tablet BY MOUTH 25 mg DAILY CARLOZ Administration Meclizine HCl 25 mg 11/02/24 09:00 11/09/24 08:54 Meclizine Hcl 25 Mg Tablet PO 25 mg BID CARLOZ Administration Meclizine HCl 12.5 mg 11/02/24 09:36 Meclizine Hcl 12.5 Mg Tablet PO DAILY PRN dizziness Metoprolol Succinate 50 mg 11/02/24 09:40 11/09/24 08:53 Metoprolol Succinate Ext Rel 50 Mg Tabcr BY MOUTH 50 mg DAILY CARLOZ Administration Morphine Sulfate 4 mg 11/01/24 20:18 Morphine Sulfate (*Crx) 4 Mg/Ml Inj IV PUSH Q4H PRN Pain Rated 7-10 Potassium Chloride 20 meq 11/03/24 09:00 11/09/24 08:52 Potassium Chloride 20 Meq Er Tablet PO 20 meq DAILY CARLOZ Administration Tramadol HCl 25 mg 11/04/24 12:08 11/05/24 10:40 Tramadol Hcl (*Crx) 25 Mg Tablet PO 25 mg Q6H PRN Administration Pain Rated 4-6 Radiology Results: ITS Impressions Chest X-Ray 11/01/24 15:14 IMPRESSION: No acute cardiopulmonary pathology Modified Barium Swallow 11/06/24 14:07 IMPRESSION: Mild pharyngeal dysphagia with laryngeal penetration without aspiration. Please correlate with speech pathologist findings and specific feeding recommendations. Foot X-Ray 11/08/24 15:59 IMPRESSION: No acute osseous abnormality left foot. Polyarticular osteoarthritic changes. Labs Labs: Laboratory Results - last 24 hr 11/08/24 11/08/24 11/08/24 11:33 16:23 20:21 WBC RBC Hgb Hct MCV MCH MCHC RDW Plt Count MPV Sodium Potassium Chloride Carbon Dioxide Anion Gap BUN Creatinine Estim Creat Clear Calc Estimated GFR Glucose POC Capillary Glucose 216 H 191 H 221 H Calcium Magnesium 11/09/24 11/09/24 04:33 07:27 WBC 10.3 H RBC 5.39 Hgb 16.2 Hct 50.9 MCV 94.4 MCH 30.1 MCHC 31.8 L RDW 14.4 Plt Count 184 MPV 10.0 Sodium 140 Potassium 3.8 Chloride 109 H Carbon Dioxide 24 Anion Gap 7 BUN 21 H Creatinine 1.04 Estim Creat Clear Calc 72 Estimated GFR > 60 Glucose 155 H POC Capillary Glucose 138 H Calcium 9.0 Magnesium 2.5 H Quality VTE Prophylaxis VTE prophylaxis: pharmacologic ordered
[2024-11-09] MEDS: KETOROLAC 30 MG/ML VIAL (*BKC) IV PUSH (09:53)
--- NOTE | 2024-11-09 10:04 | PCPTNOTE ---
increased POC frequency from 2-3x/week to 3-5x/week to improve mobility and gait training with cane
--- NOTE | 2024-11-14 20:35 | PM.DS ---
DS: Admitting Diagnosis Discharge Date 11/09/24 Admitting Diagnosis Chest pain DS: Discharge Diagnosis Discharge Diagnosis (1) Vertigo: Code(s): R42 - Dizziness and giddiness Status: Chronic (2) Uncontrolled hypertension: Code(s): I10 - Essential (primary) hypertension Status: Acute (3) Chest pain: Qualifiers: Chest pain type: unspecified Qualified Code(s): R07.9 - Chest pain, unspecified Code(s): R07.9 - Chest pain, unspecified Status: Acute DS: Summary Hospital Course Reason for hospitalization: The patient, a 74-year-old male with a history of coronary artery disease status post percutaneous coronary intervention (PCI) x5, type 2 diabetes mellitus, and chronic kidney disease stage IIIB, was admitted for evaluation of chest pain and dizziness. 11/01 Copied from HPI: This is a 74-year-old male patient with past medical history coronary artery disease status post PCI x5, carotid artery stenosis, BPH, chronic kidney disease stage IIIB, peripheral vascular disease, peripheral neuropathy, sleep apnea, type 2 diabetes mellitus who comes to the emergency room after just being discharged yesterday now with complaints of chest pain. As noted patient was discharged yesterday after being admitted and evaluated for his dizziness by Neurology and he states upon discharge his symptoms have not gotten any better and he has started having pain in the middle of his back radiating around to his chest and he states he is ?having a heart attack. He was referred to Cardiology due to having episodes of trigeminy but has yet to make an appointment within. There was no concern of cardiac causation being the cause of patient's dizziness during his recent admission, but as noted he did have bilateral mastoid effusions which could be the cause of his dizziness so he was referred to ENT. Regardless, the patient's dizziness is chronic in nature and has been present for years and is routinely controlled with meclizine. However patient states that since he was discharged yesterday all of his medications that he normally keeps in his car, have disappeared and he has none of his medications to take. Patient is responsible for dosing his own medications, he reportedly lives at home with his 2 sisters and despite multiple conversations refuses to entertain the idea of assisted living. His pain that he presents with today he states started last evening, is in the center of his back and radiates around to his chest. He has no associated dyspnea, nausea or vomiting. No diaphoresis. In the ER workup was performed that shows stable vital signs, EKG Showing normal sinus rhythm rate of 73 with left axis deviation and left ventricular hypertrophy. CBC metabolic panel essentially unremarkable. BNP is 513. He has 2- troponins. D-dimer was 0.37, PTT 27.7, PT 13.0, INR 1.0. Chest x-ray was negative for any acute abnormal findings. He has a heart score 5 and is being admitted to the hospital for a fall rule out of ACS given his symptoms and risk factors. Again had a discussion with the patient at the bedside that he likely is at a point where he needs more help in caring for himself in managing medications and I suggested assisted living but he will not entertain the thought. He was given medications of potassium chloride 20 mEq for marginally low potassium of 3.3 and given Lasix 20 mg IV push for his evidence of potential fluid overload. He is being admitted in the current setting for a complete rule out with troponins and telemetry monitoring. Hospital Course: Chest pain Upon admission, the patient reported chest pain and dizziness. Initial workup included stable vital signs, an EKG showing normal sinus rhythm with left axis deviation and left ventricular hypertrophy, and a chest X-ray negative for acute findings. Cardiac enzymes were negative, and the heart score was 5, indicating low suspicion for acute coronary syndrome (ACS). The patient was monitored on telemetry, and ACS ruled out. Suspect related to uncontrolled HTN The patient's chest pain resolved during the hospital stay. He received aspirin and was managed with Tylenol and morphine for pain control. Uncontrolled HTN His blood pressure was above goal, amlodipine increased. Diabetes For diabetes management, Jardiance was held, and a sliding scale insulin protocol was initiated. The patient was also placed on a diabetic diet with regular glucose monitoring. Vertigo attributed to bilateral mastoid effusions, and was referred to ENT for follow-up. Meclizine was continued for symptom control. Left foot pain Physical therapy evaluated the patient for impaired mobility due to left foot pain, which was attributed to a bone spur and tendon changes seen on X-ray. Orthopedic surgery advised against a steroid dose pack, and the patient received a cortisone injection in the left hip, which improved his hip pain. He was also given a dose of Toradol. CKD Renal function was monitored, with creatinine levels improving to 1.24, better than his baseline. The patient was managed for chronic kidney disease stage 3. Discussed avoiding NSAIDs Discharge Condition: The patient is stable for discharge. His chest pain has resolved, and he is able to manage his symptoms with the current medication regimen. He continues to use a wheeled walker for mobility due to left foot pain. VENU CPAP Follow-Up Appointments: Cardiology for further evaluation of episodes of trigeminy ENT for follow-up on bilateral mastoid effusions Outpatient physical therapy for mobility and pain management PCP Follow up Status at Discharge Cognitive/behavioral status at discharge: A&Ox4 Time Spent with Patient Time attestation: Total time spent providing and/or coordinating discharge services:58 minutes Exam Narrative: Morbidly Obese Patient is comfortable, NAD HEENT: eyes are clear and none icteric LUNGS:CTA HEART: RR S1S2 ABD: BS+, Soft and nontender Lower extremities: no edema, left foot there no sign of erythema along 1st metatarsal. TTP plantar side of the longitudinal arch SKIN: nonjaundiced Neuro: grossly intact. Discharge Plan Discharge Attending physician on discharge: Tiffani Avery Consulting providers: Chad Tong; Neisha Barbosa; Louie Lomeli; [employer],Kassi Nieves Discharging Clinician: Tiffani Avery Anticipated Discharge Date/Time: 11/09/24 09:31 Patient Disposition: Home with Home Health Service Activity: august shower Diet: as tolerated Discharge Instructions: Per Care Coordination. Patient to have [facility] for RN/PT/OT emiliaal and treat [phone]. They will contact patient to schedule visits. Recommend stretching and follow up with podiatry. Can freeze a water bottle and roll under left foot to help with pain and stretching Follow up with podiatry near you Patient Instructions: Antibiotic Form, Angina (DC) Patient Language: Arabic Stand Alone Forms: General Discharge Information Follow-up/Referrals: Osbaldo Mooney DPM [Physician] - 2 Weeks Discharge Medications: New acetaminophen 500 mg Tablet 1,000 mg PO Q6H PRN (Reason: Mild Pain (1-3) Or Fever) Qty: 30 0RF allopurinol 100 mg tablet 50 mg PO DAILY Qty: 30 0RF amlodipine 10 mg Tablet 10 mg PO DAILY Qty: 30 0RF Continued clopidogrel [Plavix] 75 mg tablet 75 mg PO DAILY ezetimibe [Zetia] 10 mg tablet 10 mg PO DAILY aspirin [Leroy Chewable Aspirin] 81 mg tablet,chewable 81 mg PO DAILY potassium chloride [K-Tab] 20 mEq tablet extended release 20 meq PO DAILY Qty: 3 0RF meclizine 12.5 mg tablet 12.5 mg PO DAILY PRN (Reason: dizziness) Qty: 30 0RF Gemtesa 75 mg tablet 75 mg PO DAILY Qty: 30 1RF gabapentin 100 mg capsule See Rx Instructions .ROUTE .COMPLEX Qty: 120 3RF Dose Instruction: TAKE ONE (1) CAPSULE BY MOUTH MORNING AND NOON, TAKE TWO (2) BY MOUTH NIGHTLY AT BEDTIME Rx Instructions: TAKE ONE (1) CAPSULE BY MOUTH MORNING AND NOON, TAKE TWO (2) BY MOUTH NIGHTLY AT BEDTIME metoprolol succinate 50 mg tablet extended release 24 hr See Rx Instructions .ROUTE .COMPLEX Qty: 90 1RF Dose Instruction: TAKE ONE (1) TABLET BY MOUTH DAILY Rx Instructions: TAKE ONE (1) TABLET BY MOUTH DAILY levothyroxine 50 mcg tablet See Rx Instructions .ROUTE .COMPLEX Qty: 90 1RF Dose Instruction: TAKE ONE (1) TABLET BY MOUTH DAILY Rx Instructions: TAKE ONE (1) TABLET BY MOUTH DAILY Jardiance 25 mg tablet See Rx Instructions .ROUTE .COMPLEX Qty: 90 1RF Dose Instruction: TAKE ONE (1) TABLET BY MOUTH DAILY Rx Instructions: TAKE ONE (1) TABLET BY MOUTH DAILY losartan 25 mg tablet See Rx Instructions .ROUTE .COMPLEX Qty: 90 1RF Dose Instruction: TAKE ONE (1) TABLET BY MOUTH EVERY DAY Rx Instructions: TAKE ONE (1) TABLET BY MOUTH EVERY DAY hydrochlorothiazide 25 mg tablet See Rx Instructions .ROUTE .COMPLEX Qty: 90 1RF Dose Instruction: TAKE ONE (1) TABLET BY MOUTH EVERY DAY Rx Instructions: TAKE ONE (1) TABLET BY MOUTH EVERY DAY Date of admission: 11/05/24 14:54 Primary Care Provider: Vicki Salmeron Admitting Provider: Hue La Attending physician on admission: Tiffani Avery Condition: Stable Quality VTE Prophylaxis VTE prophylaxis: mechanical ordered Hospitalist MIPS Heart Failure (Exclusion) Patient has history of Heart Transplant or Left Ventricular Assistive Device?: No IF YES, STOP HERE Heart Failure (Qualifier) Patient has current or prior documentation of LVEF less than or equal to 40%, or mod/servere depressed LVSF?: No IF NO, STOP HERE
--- NOTE | 2024-12-21 10:24 | P.PNIM_ITS ---
Progress Note: A&P Assessment and Plan (1) Chest pain: Qualifiers: Chest pain type: unspecified Qualified Code(s): R07.9 - Chest pain, unspecified Code(s): R07.9 - Chest pain, unspecified Status: Acute Assessment and Plan: * Negative tropes x2 * EKG without any ischemic changes * Continue telemetry * Complete 3 trop rule out * Aspirin 324 mg chewable given in ED * Heart score 5 * Low suspicion of ACS. * P.r.n. morphine 4 mg IV push q.4 hours ordered for severe pain * Tylenol 1000 mg p.o. q.6 hours ordered for yzol-si-dodbjhlw pain. * Daily labs (2) Hypertension: Code(s): I10 - Essential (primary) hypertension Status: Chronic Assessment and Plan: * (3) Type 2 diabetes mellitus: Code(s): E11.9 - Type 2 diabetes mellitus without complications Status: Chronic (4) Sleep apnea: Code(s): G47.30 - Sleep apnea, unspecified Status: Chronic Assessment and Plan: * Hold oral hypoglycemics * Adult sliding scale insulin protocol * Hypoglycemic protocol * Glucose checks a.c. and HS * Diabetic diet * Check A1c (5) Vertigo: Code(s): R42 - Dizziness and giddiness Status: Chronic (6) Impaired renal function: Code(s): N28.9 - Disorder of kidney and ureter, unspecified Status: Chronic Plan Patient denies any CP, his chest pain has resolved, as his 3 sets of cardiac enzymes are negative and there are no acute changes on his EKG. patient does co mplaints of back pain and difficulty with ambulation, on 11/04 patient stated his left foot has gout flare up and its painful, I did examine the foot and did not see any erythema along 1st metatarsal or the G. Toe, patient is on HCTZ which can exacerbate gout will dc the medication, will add amlodipine, will start on allopurinol 50mg qd, patient had c/o CP unable give indomthacin, has history of DM unable to give steroids however in the past he has received steroid injection that has helped and was given by Dr. Paulino, discuss with the orthopedic on 11/06, he will and evaluate the patient and further recommendation to follow. Patient was seen by the ortho and received a steroid injection, will monitor, patient had difficulty swallowing, was seen by speech, will have MBS, will have PT/OT evaluate the patient, will continue to monitor and plan. Subjective Date/time seen: 11/07/24 10:24 Interval history: This is a 74-year-old male patient with past medical history coronary artery disease status post PCI x5, carotid artery stenosis, BPH, chronic kidney disease stage IIIB, peripheral vascular disease, peripheral neuropathy, sleep apnea, type 2 diabetes mellitus who comes to the emergency room after just being discharged yesterday now with complaints of chest pain. As noted patient was discharged yesterday after being admitted and evaluated for his dizziness by Neurology and he states upon discharge his symptoms have not gotten any better and he has started having pain in the middle of his back radiating around to his chest and he states he is ?having a heart attack. He was referred to Cardiology due to having episodes of trigeminy but has yet to make an appointment within. There was no concern of cardiac causation being the cause of patient's dizziness during his recent admission, but as noted he did have bilateral mastoid effusions which could be the cause of his dizziness so he was referred to ENT. Regardless, the patient's dizziness is chronic in nature and has been present for years and is routinely controlled with meclizine. However patient states that since he was discharged yesterday all of his medications that he normally keeps in his car, have disappeared and he has none of his medications to take. Patient is responsible for dosing his own medications, he reportedly lives at home with his 2 sisters and despite multiple conversations refuses to entertain the idea of assisted living. His pain that he presents with today he states started last evening, is in the center of his back and radiates around to his chest. He has no associated dyspnea, nausea or vomiting. No diaphoresis. In the ER workup was performed that shows stable vital signs, EKG Showing normal sinus rhythm rate of 73 with left axis deviation and left ventricular hypertrophy. CBC metabolic panel essentially unremarkable. BNP is 513. He has 2- troponins. D-dimer was 0.37, PTT 27.7, PT 13.0, INR 1.0. Chest x-ray was negative for any acute abnormal findings. He has a heart score 5 and is being admitted to the hospital for a fall rule out of ACS given his symptoms and risk factors. Again had a discussion with the patient at the bedside that he likely is at a point where he needs more help in caring for himself in managing medications and I suggested assisted living but he will not entertain the thought. He was given medications of potassium chloride 20 mEq for marginally low potassium of 3.3 and given Lasix 20 mg IV push for his evidence of potential fluid overload. He is being admitted in the current setting for a complete rule out with troponins and telemetry monitoring. Patient denies any CP, his chest pain has resolved, as his 3 sets of cardiac enzymes are negative and there are no acute changes on his EKG. patient does complaints of back pain and difficulty with ambulation, on 11/04 patient stated his left foot has gout flare up and its painful, I did examine the foot and did not see any erythema along 1st metatarsal or the G. Toe, patient is on HCTZ which can exacerbate gout will dc the medication, will add amlodipine, will start on allopurinol 50mg qd, patient had c/o CP unable give indomthacin, has history of DM unable to give steroids however in the past he has received steroid injection that has helped and was given by Dr. Paulino, discuss with the orthopedic on 11/06, he will and evaluate the patient and further recommendation to follow. Patient was seen by the ortho and received a steroid injection, will monitor, patient had difficulty swallowing, was seen by speech, will have MBS, will have PT/OT evaluate the patient, will continue to monitor and plan. Exam Narrative: Morbidly Obese Patient is comfortable, NAD HEENT: eyes are clear and none icteric LUNGS:CTA HEART: RR S1S2 ABD: BS+, Soft and nontender Lower extremities: no edema, left foot there no sign of erythema along 1st metatarsal. TTP plantar side of the longitudinal arch SKIN: nonjaundiced Neuro: grossly intact. Objective Data Meds/Results Radiology Results: ITS Impressions Chest X-Ray 11/01/24 15:14 IMPRESSION: No acute cardiopulmonary pathology Modified Barium Swallow 11/06/24 14:07 IMPRESSION: Mild pharyngeal dysphagia with laryngeal penetration without aspiration. Please correlate with speech pathologist findings and specific feeding recommendations. Foot X-Ray 11/08/24 15:59 IMPRESSION: No acute osseous abnormality left foot. Polyarticular osteoarthritic changes.
== END 2024-11-09 11:00 | disposition home health service (06) | DRG 313 ==
LOC: ANHED 17:49 → ANHIMU 19:17 → ANH2MED 11-02 18:02
PROVIDERS: Emergency Medicine; Nurse Practitioner Adult Health; Physician Assistant; Admitting Provider Family Medicine; Emergency Provider Physician Assistant; PCP Nurse Practitioner Adult Health; Visit Provider Nurse Practitioner Acute Care
DX: R07.9 Chest pain, unspecified (principal); R42 Dizziness and giddiness; M10.372 Gout due to renal impairment, left ankle and foot; H74.93 Unspecified disorder of middle ear and mastoid, bilateral; E87.6 Hypokalemia; M72.2 Plantar fascial fibromatosis; I25.10 Atherosclerotic heart disease of native coronary artery without angina pectoris; E11.22 Type 2 diabetes mellitus with diabetic chronic kidney disease; I12.9 Hypertensive chronic kidney disease with stage 1 through stage 4 chronic kidney disease, or unspecified chronic kidney disease; N18.32 Chronic kidney disease, stage 3b; E11.42 Type 2 diabetes mellitus with diabetic polyneuropathy; M70.62 Trochanteric bursitis, left hip; E03.9 Hypothyroidism, unspecified; N40.0 Benign prostatic hyperplasia without lower urinary tract symptoms; M47.27 Other spondylosis with radiculopathy, lumbosacral region; I65.29 Occlusion and stenosis of unspecified carotid artery; G47.30 Sleep apnea, unspecified; E66.9 Obesity, unspecified; Z68.36 Body mass index [BMI] 36.0-36.9, adult; Z95.5 Presence of coronary angioplasty implant and graft; Z87.891 Personal history of nicotine dependence
CPT/HCPCS: 36415; 71046; 73620; 74230; 80048; 80053; 82948; 83036; 83690; 83735; 83880; 84132; 84484; 84550; 85025; 85027; 85380; 85610; 85730; 92610; 92611; 93005; 96374; 97110; 97116; 97161; 97165; 97530; 97535; 99285; A9270; G0378; J1650; J1815; J1885; J1938

== ENCOUNTER 2025-01-18 14:51 | Emergency (ER) | payer MEDICARE, SELFPAY ==
--- OUTSIDE RECORDS SUMMARY | 2024-12-28 03:41 | XMS_ITS | Continuity of Care Document ---
[facility] [place] [address] [place] [address] Phone Care Team Providers Care Personal Care Service Provider Name Role Phone Annemarie CARRASCO FACS, Abelardo Unavailable Unavailab le Allergies, Adverse Reactions, Alerts Substance Reaction Status Criticality No Known Allergies Active No Inform ation Medications Medication Instructions Dosage Effective Dates (start - stop) Status Comments polymyxin B sulfate 10,000 unit-trimethoprim 1 mg/mL eye drops instill 1 drop by ophthalmic route in the operated eye 4 times a day for 1 week; to begin after being seen in the office for first post op visit. - Active prednisolone acetate 1 % eye drops,suspension Instill 1 drop into operated eye 4 times a day for 2 weeks, then 2 times a day for 2 weeks; to begin after being seen in the office for first post op visit. - Active amlodipine 10 mg tablet take [...] Procedures Procedure Date Fundus Photography W/ Report No Charge Refraction No Charge GDX Retina Office/outpatient Visit, Est Fundus Photography W/ Report Eye Exam & [...] Charge Refraction No Charge Optomap Fundus Photos Jan-12-01 019 Corneal Topography Office/outpatient Visit, Est No Charge Refraction Eye Exam, New Patient Advance Directives Directive Yes / No Effective Date File Name No Information Encounters Encounter Description Practice Location Reason(s) For Visit Diagnoses Date Provider Providers Copied on [facility]counter [facility], [address], [place], [place], [address], [place] tel:[phone] [place] No Information 5 Annemarie Abelardo. [facility] [employer], [address], [place], [place], [address], [place]. tel:[phone] [facility] Center[facility]asure[facility], [facility] [employer] [address], [place], [place], [address], [place] tel:[phone] [place] No Information 5 [place] Abelardo. [facility] [employer], [address], [place], [place], [address], [place]. tel:[phone] Office/outpa tient Visit, Est [facility], [facility] [employer] [address], [place], [place], [address], [place] tel:[phone] SEC Arnoldo ECKERT Professional Cataract evaluation (chief complaint) Combined forms of age-related cataract, left eye 5 Annemarie Zhou. [facility] [employer], [address], [place], [place], [address], [place]. tel:[phone] Referring Provider: Sanjeev Barker, [address], [place], [address] . tel:[phone] [facility], [facility] [employer] [address], [place], [place], [address], [place] tel:[phone] SEC Arnoldo TOMEKA Professional No Information 3 Vicky East. [facility] [employer], [address], [place], [place], [address], [place]. tel:[phone] [employer] [facility], [address], [place], [place], [address], [place] tel:[phone] SEC [place] Professional Complete Exam (chief complaint) Type 2 diab with mild nonp rtnop without mclr edema, r eyeCombined forms of age-related cataract, left eyePresence of intraocular lensDry eye syndrome of bilateral lacrimal glandsXT (exotropia) 3 Vicky OD Kita. [facility] [employer], [address], [place], [place], [address], [place]. tel:[phone] Referring Provider: Kita Vicky OD L, [facility] [address], [place], [address] . tel:[phone] [employer] [facility], [facility] [employer] [address], [place], [place], [address], [place] tel:[phone] SEC Arnold[place] Professional Cataract Evaluation (chief complaint) Pseudophakia of right eyeCombined forms of age-related cataract, left eyeXT (exotropia)Pt osis of both eyelids Oct- 0 1 Waqar Pace. [address], [facility] [address], [place], [place], [address], [place]. tel:[phone] Referring Provider: Sanjeev Barker, [address], [place], [address] . tel:[phone] Office/outpa tient Visit, Est [facility] [email or web address] [facility], [facility] [employer] [address], [place], [place], [address], [place] tel:[phone] SEC Waldo [employer] Professional WIE (chief complaint) Abrasion of right eyelid, initial encounterEdem a of right upper eyelid Oct-0 0 Waqar Pace. [address], [facility] [address], [place], [place], [address], [place]. tel:[phone] Referring Provider: Sanjeev Barker, [address], [place], [address] . tel:[phone] [employer] [facility], [address] [address], [place], [place], [address], [place] tel:[phone] SEC Arnoldo ECKERT Professional 1 month s/p PCIOL (chief complaint) Post op visit 0 Juan F Lam. [address], [place], [address], [place]. tel:[phone] Referring Provider: Sanjeev Barker, [address], [place], [address] . tel:[phone] Office/outpa tient Visit, [facility], [address], [place], [place], [address], [place] tel:[phone] SEC Arnoldo ECKERT Professional WIE (chief complaint) Allergic conjunctiviti s of both eyes 0 Waqar Pace. [address], [facility] [address], [place], [place], [address], [place]. tel:[phone] Referring Provider: Sanjeev Barker, [address], [place], [address] . tel:[phone] [facility], [address], [place], [place], [address], [place] tel:[phone] SEC Arnoldo ECKERT Professional 1 day s/p PCIOL (chief complaint) Post op visit 0 Waqar Pace. [address], [address], [place], [place], [address], [place]. tel:[phone] Referring Provider: Sanjeev Barker, [address], [place], [address] . tel:[phone] [facility], [address], [place], [place], [address], [place] tel:[phone] [place] [facility] No Information 0 Annemarie Zhou. [address], [address], [place], [place], [address], . tel:[phone] Referring Provider: Sanjeev Barker, [address] [facility] [address], [place], [address] . tel:[phone] [facility], [address] [place], [place] [address] [address], [place], [place], [address], tel:[phone] SEC [place] No Information 0 [place] Abelardo. [facility] [employer], [address], [place], [place], [address], [place]. tel:[phone] Referring Provider: Sanjeev Barker, [address] [facility] [address], [place], [address] . tel:[phone] [facility], [address] [place] [address] [address], [place], [place], [address], tel:[phone] SEC Arnold[place] Professional Cataract evaluation (chief complaint) Post op visitCombined forms of age-related cataract, bilateral 0 Annemarie Abelardo. [facility] [address] [employer], [address], [place], [place], [address], [place]. tel:[phone] Referring Provider: Sanjeev Barker, [address] [facility] [address], [place], [address] . tel:[phone] [facility], [address] [place], [place] [address]st [address], [place], [place], [address], [place] tel:[phone] SEC [place] Professional Cataract evaluation (chief complaint) Post op visit 0-201 9 Annemarie Abelardo. [facility] [address] [employer], [address], [place], [place], [address], [place]. tel:[phone] Referring Provider: Sanjeev Barker, [address] [facility] [address], [place], [address] . tel:[phone] [facility], [address] [place] [address] [address], [place], [place], [address], [place] tel:[phone] SEC Rebekah Villalpando 1 wk Pterygium excision po (chief complaint) Post op visit 9 [address] [place] [address] [employer], [address], [place], [place], [address], [place]. tel:[phone] Referring Provider: Sanjeev Barker, [address] [facility] [address], [place], [address] . tel:[phone] [facility], [address], [place], [place], [address], [place] tel:[phone] SEC [place] Pterygium excision (chief complaint) Post op visit 9 Annemarie Zhou. [facility] [employer], [address], [place], [place], [address], [place]. tel:[phone] Referring Provider: Sanjeev Barker, [address] [facility] [address], [place], [address] . tel:[phone] [facility], [address], [place], [place], [address], [place] tel:[phone] [place] [facility] No Information 9 Annemarie Zhou. [facility] [employer], [address], [place], [place], [address], [place]. tel:[phone] Referring Provider: Sanjeev Barker, [address] [facility] [address], [place], [address] . tel:[phone] Office/outpa tient Visit, Est [facility], [address] [place], [place] [address] [address], [place], [place], [address], [place] tel:[phone] SEC Arnoldo [place] Professional pterygium and cataract (chief complaint) Peripheral pterygium, progressive, left eyeCombined forms of age-related cataract, bilateral Oct-0 9 Annemarie Abelardo. [address], [address], [place], [place], [address], [place]. tel:[phone] Referring Provider: Sanjeev Barker, [address] [facility] [address], [place], [address] . tel:[phone] [facility], [address], [place], [place], [address], tel:[phone] SEC Arnoldo ECKERT Professional Complete Exam (chief complaint) Age-related nuclear cataract, bilateralPter ygium of left eyeAllergic conjunctiviti s of both eyes Waqar Pace. [address] [facility] [address], [place], [place], [address], [place]. tel:[phone] Referring Provider: Sanjeev Barker, [address] [facility] [facility] [address], [place], [address] . tel:[phone] [facility], [address], [place], [place], [address], [place] [phone] SEC Elena MILLER No Information 9 Asha Dixon. [address] [facility], [facility] [place], [address], . tel:[phone] Family History Family Member Type Diagnosis Age At Onset Problem (finding) Family history of Diabe prakash mellitus Payers Payer name Insurance type Covered green party ID Authoriza tion(s) AARP Medicare Complete CI [id number] Social History Type Description Quantity Date Captured Comments Alcohol Use Details Unknown Caffeine Use Details Unknown Tobacco Use Status No Information Smoking Status No Information Sex Male Chief Complaint And Reason For Visit No Information Reason For Referral Reason For Referral No Information Plan Of Treatment Date Type Action Status Goal Tobacco cessation counseling completed Appointment Jairo Olguin BOOKED Patient Education Cataracts: Care Instruc tions completed Patient Education Cataract Surgery: What to Expect at H~ completed Patient Education Scrapes (Abrasions): Ca re Instructions completed Patient Education Pterygium and Pinguecul a: Care Instru~ completed Patient Education Pterygium and Pinguecul a: Care Instru~ completed History Of Present Illness Encounter Date Complaint History Of Prese nt Illness Cataract evaluation The 74 year old patient presents for evaluation of Cataract evaluation in the left eye. Pt states his vision in OS is completely blurry. Pt states he now is having matter all the time in OS. Pt states his vision in OD is good. Pt states no pain in eyes. Pt unable to read small print with OS, see tv, or people's faces across the room. Pt is having headaches all the time the past few months with no relief with tylenol or ibuprofen. Pt states his PCP is now Miriam Mallory but unable to find her in list. Complete Exam The 72 year old patient [...] alice Impression/Plan Impression/Plan Impression/Plan Impression/Plan Impression/Plan Impression/Plan Impression/Plan sched CE OS 1st Related to Combi denny forms of age-related cataract, bilateral Impression/Plan Related to Combi denny forms of age-related cataract, bilateral Impression/Plan Impression/Plan Impression/Plan Impression/Plan Impression/Plan Assessments Type Assessment Date No Information Patient Care Teams Name Effective Dates (start - stop) Status Members No Information
--- OUTSIDE RECORDS SUMMARY | 2024-12-28 03:41 | XMS_ITS | Continuity of Care Document ---
Author Organization [facility] Eye [facility] Address [address] [place] [address] Phone Care Team Providers Care Solar Field Service Technician Name Role Phone Annemarie CARRASCO FACS, Abelardo [...] Diagnoses Date Provider Providers Copied on Encounter [email or web address], [address], [place], [place], [address], [place] tel:[phone] [place] No Information 5 Annemarie Abelardo. [facility] [employer], [address], [place], [place], [address], [place]. tel:[phone] [email or web address] Center[facility], [facility] [address], [place], [place], [address], [place] tel:[phone] [place] No Information 5 [place] Abelardo. [facility] [employer], [address], [place], [place], [address], [place]. tel:[phone] Office/outpa tient Visit, Est [email or web address], [facility] [address], [place], [place], [address], [place] tel:[phone] SEC [place] ECKERT Professional Cataract evaluation (chief complaint) Combined forms of age-related cataract, left eye 5 Annemarie Zhou. [facility] [employer], [address], [place], [place], [address], [place]. tel:[phone] Referring Provider: Sanjeev Barker, [address] [facility] [address], [place], [address] . tel:[phone] [email or web address], [facility] [address], [place], [place], [address], [place] tel:[phone] SEC Arnoldo TOMEKA Professional No Information 3 Vicky East. [facility] [employer], [address], [place], [place], [address], [place]. tel:[phone] [employer] [facility], [address], [place], [place], [address], [place] tel:[phone] SEC [place] Professional Complete Exam (chief complaint) Type 2 diab with mild nonp rtnop without mclr edema, r eyeCombined forms of age-related cataract, left eyePresence of intraocular lensDry eye syndrome of bilateral lacrimal glandsXT (exotropia) 3 Vicky OD Kita. [facility] [employer], [address], [place], [place], [address], [place]. tel:[phone] Referring Provider: Kita Vicky OD L, [facility] [address], [place], [address] . tel:[phone] [employer] [facility], [facility] [address], [place], [place], [address], [place] tel:[phone] SEC [place] Professional Cataract Evaluation (chief complaint) Pseudophakia of right eyeCombined forms of age-related cataract, left eyeXT (exotropia)Pt osis of both eyelids Oct- 0 1 Waqar Pace. [address] [employer], [facility] [address], [place], [place], [address], [place]. tel:[phone] Referring Provider: Sanjeev Barker, [address], [place], [address] . tel:[phone] Office/outpa tient Visit, Est [facility] [employer] [facility], [facility] [address], [place], [place], [address], [place] tel:[phone] SEC [place] [employer] Professional WIE (chief complaint) Abrasion of right eyelid, initial encounterEdem a of right upper eyelid Oct-0 0 Waqar Pace. [address] [employer], [facility] [address], [place], [place], [address], [place]. tel:[phone] Referring Provider: Sanjeev Barker, [address], [place], [address] . tel:[phone] [employer] [facility], [address] [address], [place], [place], [address], [place] tel:[phone] SEC [place] ECKERT Professional 1 month s/p PCIOL (chief complaint) Post op visit 0 Juan F Lam. [address] [facility] [address] [facility], [address], [place], [address], [place]. tel:[phone] Referring Provider: Sanjeev Barker, [address], [place], [address] . tel:[phone] Office/outpa tient Visit, [facility], [address], [place], [place], [address], [place] tel:[phone] SEC [place] ECKERT Professional WIE (chief complaint) Allergic conjunctiviti s of both eyes 0 Waqar Pace. [address] [employer], [facility] [address], [place], [place], [address], [place]. tel:[phone] Referring Provider: Sanjeev Barker, [address], [place], [address] . tel:[phone] [facility], [address], [place], [place], [address], [place] tel:[phone] SEC [place] ECKERT Professional 1 day s/p PCIOL (chief complaint) Post op visit 0 Waqar Pace. [address] [employer], [address], [place], [place], [address], [place]. tel:[phone] Referring Provider: Sanjeev Barker, [address], [place], [address] . tel:[phone] [facility], [address], [place], [place], [address], [place] tel:[phone] [facility] No Information 0 Annemarie Zhou. [address], [address], [place], [place], [address], . tel:[phone] Referring Provider: Sanjeev Barker, [address] [facility] [address], [place], [address] . tel:[phone] [facility], [address] [place], [place] [address]cre[facility] [address], [place], [place], [address], tel:[phone] [place] No Information 0 [place] Abelardo. [facility] [employer], [address], [place], [place], [address], [place]. tel:[phone] Referring Provider: Sanjeev Barker, [address] [facility] [address], [place], [address] . tel:[phone] [facility], [address] [place] [address] [address], [place], [place], [address], tel:[phone] SEC [place] Professional Cataract evaluation (chief complaint) Post op visitCombined forms of age-related cataract, bilateral 0 Annemarie Abelardo. [facility] [address] [employer], [address], [place], [place], [address], [place]. tel:[phone] Referring Provider: Sanjeev Barker, [address] [facility] [address], [place], [address] . tel:[phone] [facility], [address] [place], [place] [address]crest [address], [place], [place], [address], [place] tel:[phone] SEC [place] Professional Cataract evaluation (chief complaint) Post op visit 0-201 9 Annemarie Abelardo. [facility] [address] [employer], [address], [place], [place], [address], [place]. tel:[phone] Referring Provider: Sanjeev Barker, [address] [facility] [address], [place], [address] . tel:[phone] [facility], [address] [place] [address] [address], [place], [place], [address], [place] tel:[phone] SEC Rebekah Villalpando 1 wk Pterygium excision po (chief complaint) Post op visit [address] [place] [address] [employer], [address], [place], [place], [address], [place]. tel:[phone] Referring Provider: Sanjeev Barker, [address] [facility] [address], [place], [address] . tel:[phone] [facility], [address], [place], [place], [address], [place] tel:[phone] [place] Pterygium excision (chief complaint) Post op visit 9 Annemarie Zhou. [facility] [employer], [address], [place], [place], [address], [place]. tel:[phone] Referring Provider: Sanjeev Barker, [address] [facility] [address], [place], [address] . tel:[phone] [facility], [address], [place], [place], [address], [place] tel:[phone] [facility] No Information 9 Annemarie Zhou. [facility] [employer], [address], [place], [place], [address], [place]. tel:[phone] Referring Provider: Sanjeev Barker, [address] [facility] [address], [place], [address] . tel:[phone] Office/outpa tient Visit, Est [facility], [address] [place], [place] [address]st [address], [place], [place], [address], [place] tel:[phone] SEC [place] Professional pterygium and cataract (chief complaint) Peripheral pterygium, progressive, left eyeCombined forms of age-related cataract, bilateral Oct-0 9 Annemarie Abelardo. [address], [address], [place], [place], [address], [place]. tel:[phone] Referring Provider: Sanjeev Barker, [address] [facility] A, [place], [address] . tel:[phone] [facility], [address], [place], [place], [address], tel:[phone] SEC [place] ECKERT Professional Complete Exam (chief complaint) Age-related nuclear cataract, bilateralPter ygium of left eyeAllergic conjunctiviti s of both eyes Waqar Pace. [address] [facility] [address], [place], [place], [address], [place]. tel:[phone] Referring Provider: Sanjeev Barker, [address] [facility] A, [place], [address] . tel:[phone] [facility], [address], [place], [place], [address], [place] [phone] SEC Elena MILLER No Information 9 Asha Dixon. [address] [facility], [place], [address], . tel:[phone] Family History Family Member Type Diagnosis Age At Onset Problem (finding) Family history of Diabe prakash mellitus Payers Payer name Insurance type Covered libertarian ID Authoriza tion(s) AARP Medicare Complete CI [id number] Social History Type Description Quantity Date Captured [...]
--- OUTSIDE RECORDS SUMMARY | 2025-01-18 14:54 | XMS_ITS | Encounter Summary ---
Author Organization [facility] Healthcare Address [address] [place] [address] Care Team Providers Care Rotary Helper Name Role Phone Nicolas Jung MD Unavailable [phone] Louie Lomeli MD Unavailable [phone] Melchor Woodard MD Primary Care Provider [phone] Jairo Sparrow MD Unavailable [phone] Maria Eugenia Navarrete [facility] Unavailable [phone] Encounter Details Date Type Department Care Team (Late st Contact Info) Description 06/02/2023 Telephone [facility] [address] [place] [address] Jonathan Miranda MD [address] [place], [place] [id number] Social History Tobacco Use Types Packs/Day Years Used Date Smoking Tobacco: Former Smokeless Tobacco: Never Comments:quit in 1985 Alcohol Use Standard Drinks/Week Comments No 0 (1 standard drink = 0.6 oz pur e alcohol) Social Connection and Isolation Panel Answer Date Recorded In a typical week, how many times do you talk on the phone with family, friends, or neighbors? Three times a week 02/04/2023 How often do you get togethe r with friends or relatives? Once a week 02/04/2023 How often do you attend chur or anglican services? Never 02/04/2023 Do you belong to any clubs o r organizations such as nondenominational groups, unions, fraternal or athletic groups, or [...] place to sleep or slept in a detention (including now)? Yes 02/04/2023 Personal Safety Answer Date Recorded Have you ever been in or are you currently in a harmful physical or emotional relationship or is someone making you feel afraid or unsafe? Denies 03/09/2023 Sex and Gender Information Value Date Recorded Sex Assigned at Not on file Legal Sex Male 12:23 AM LICENSED PHYSICAL THERAPIST ASSISTANT Gender Identity Not on file Sexual Orientation [...] COVID: Suspected 06/12/2024 06/12/2024 06/12/2024 4:34 PM LICENSED PHYSICAL THERAPIST ASSISTANT COVID: Suspected 07/30/2024 07/30/2024 07/30/2024 4:38 PM CDT documented as of this encounter Care Teams Rotary Helper Relationship Specialty Start Date End Date Melchor Woodard MD PCP - General Family Practice 07/30/22 Nicolas Jung MD Surgeon Orthopedic Surgery 08/05/21 Louie Lomeli MD Consulting Physician Cardiology 12/23/21 Jairo Sparrow MD [address] [place] [address] [address] [facility] [place] [address] Consulting Physician Neurology 12/14/22 Maria Eugenia Navarrete, [address] [place] [address] Pharmacist Pharmacy 03/12/24 03/12/24 documented as of this encounter
--- OUTSIDE RECORDS SUMMARY | 2025-01-18 14:54 | XMS_ITS | Clinical Summary ---
Author Organization [facility] Address [address] [address] Care Team Providers Care Plaster Whittler Name Role Phone Melchor Woodard MD Primary Care Provider [phone] Allergies Active Allergy Reactions Criticality Noted Date Comments Ceftriaxone Nausea and Vomiting Low 09/23/2021 Abcmtat-Xxe-Lcr Reductase Inhibitors Other (See Comments) Low 01/26/2018 [...] 1997 DIABETES ANNUAL FOOT EXAM 10/28/2022 10/28/2021 DIABETES HBA1C Q 6 MONTHS 10/12/2024 04/13/2024, INFLUENZA VACCINE (#1) 2024 , 03/18/2020, 02/02/2019, Additional history exists COVID-19 Vaccine ( - 2024-2 6 season) 2024 03/25/2021, 07/08/2020, 06/10/2020 RSV VACCINE (60+ or ) (1 - 1-dose 75+ series) 2027 DTAP/TDAP/TD VACCINES (3 - T d or Tdap) 02/12/2030 02/13/2020, 12/11/2015 PNEUMOCOCCAL VACCINE 50+ YEARS Completed 09/27/2017 , 03/12/2016 ZOSTER VACCINE Completed 03/19/2020, 11/2018, 03/27/2018 Insurance [facility] [id number] Care Teams Plaster Whittler Relationship Specialty Start Date End Date Melchor Woodard MD PCP - General Family Practice 09/28/22
--- OUTSIDE RECORDS SUMMARY | 2025-01-18 14:54 | XMS_ITS | Clinical Summary ---
Author Organization [facility] Address [address] [place] [address] Phone Care Team Providers Care Forestry Faculty Member Name Role Phone Mark De Los Santos MD Unavailable Unavailable Rand Tsang MD Unavailable [phone] Kim Benavidez APRN, MEDICAL CLERICAL ASSISTANT Primary Care Provider + Allergies Active Allergy Reactions Criticality Noted Date Comments Ceftriaxone Unknown 12/29/2022 Statins Other (see Comments) 01/26/2018 Generalized pain Medications amLODIPine (NORVASC) 10 MG Tablet TAKE 1 TAB BY MOUTH DAILY. 90 Tab 1 020 Active nitroGLYCERIN (NITROSTAT) 0.4 MG SL Tablet [...] Take 1 Tablet by mouth daily. Active HYDROcodone-acetam inophen (NORCO) 7.5-325 MG TabletIndications: Pain,SEVERE Take 1 Tablet by mouth 6 times [...] Apply 2 g 4 times daily. Active meclizine (ANTIVERT) 25 MG TabletIndications: Dizziness Take 1 Tablet by mouth 3 times daily as needed for Dizziness. 45 Tablet Active nystatin (MYCOSTATIN) 534800 UNIT/ML SuspensionIndicati ons:Thrush Take 5 mL by mouth 4 times daily for 10 days. Apply to inside of each cheek. 200 mL 025 2024 Active folic acid (FOLVITE) 1 MG TabletIndications: Folate deficiency TAKE 1 TABLET BY MOUTH DAILY. 90 Tablet Active metFORMIN (GLUCOPHAGE) 500 MG TabletIndications: Type 2 diabetes mellitus with 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, without long-term current use of insulin (HCC) TAKE 1 TABLET BY MOUTH TWO (2) TIMES DAILY (WITH MEALS). 180 Tablet Active meloxicam (MOBIC) 7.5 MG Tablet Take 1 Tablet by mouth daily. 90 Tablet 025 Active metoprolol Succinate (Toprol XL) 25 MG TABLET SR 24 HR Take 1 Tablet by mouth daily. 90 Tablet 025 Active gabapentin (NEURONTIN) 100 MG Capsule Take 2 Capsules by mouth 3 times daily. 180 Capsule Active metFORMIN (GLUCOPHAGE) 500 MG TabletIndications: Type 2 diabetes mellitus with 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, without long-term current use of insulin (HCC) Take 1 Tab by mouth 2 times daily (with meals). 60 Tab 020 2024 Discontinued(R eorder) furosemide (LASIX) 40 MG TabletIndications: Edema leg Take 1 Tablet by mouth daily. 90 Tablet 3 021 2024 Discontinued(A uto-discontinu e per P&T) meloxicam (MOBIC) 7.5 MG Tablet Take 7.5 mg by mouth daily. 2024 Discontinued(R eorder) metoprolol Succinate (Toprol XL) 25 MG TABLET SR 24 HR Take 25 mg by mouth daily. 2024 Discontinued(R eorder) predniSONE 5 MG (21) Tablet Therapy Pack Take 5 mg by mouth daily. take 3 by mouth daily for 5 days, 2 tablets daily for 5 days, 1 tablet daily for 5 days. Rx: [id number] 2024 Discontinued(T herapy completed) meclizine (ANTIVERT) 25 MG Tablet TAKE 1 TABLET BY MOUTH THREE (3) TIMES DAILY NEEDED FOR DIZZINESS. 30 Tablet 025 2024 Discontinued metFORMIN (GLUCOPHAGE) 500 MG TabletIndications: Type 2 diabetes mellitus with 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, without long-term current use of insulin (HCC) Take 1 Tablet by mouth 2 times daily (with meals). 60 Tablet 025 2024 Discontinued folic acid (FOLVITE) 1 MG TabletIndications: Folate deficiency Take 1 Tablet by mouth daily. 30 Tablet 025 2024 Discontinued meclizine (ANTIVERT) 25 MG Tablet TAKE 1 TABLET BY MOUTH THREE (3) TIMES DAILY NEEDED FOR DIZZINESS. 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 12/19/2015 Hypertension, essential Arthritis DM2 (diabetes mellitus, type 2) Hyperlipidemia Encounters Date Type Department Care Team Description 01/17/2025 Refill [facility] [address] [place] [address] Kim Benavidez PERMANENT MOLD SUPERVISOR, MEDICAL CLERICAL ASSISTANT Medication Refill 01/16/2025 Nurse Triage [facility] [address] [place] [phone] Kim Benavidez, PERMANENT MOLD SUPERVISOR, MEDICAL CLERICAL ASSISTANT Gout; Ankle Pain 01/15/2025 [facility] [place] [address] Kim Benavidez PERMANENT MOLD SUPERVISOR, MEDICAL CLERICAL ASSISTANT Medication Refill 01/10/2025 [facility]ill [facility] [place] [phone] Kim Benavidez, PERMANENT MOLD SUPERVISOR, MEDICAL CLERICAL ASSISTANT Medication Refill 01/09/2025 1:00 PM CDT Office Visit [facility] [place] [phone] Briana Solis PERMANENT MOLD SUPERVISOR, MEDICAL CLERICAL ASSISTANT Skin tag (Primary Dx); Actinic keratosis; Skin exam, screening for cancer; Dizziness; Thrush; Sore throat Discharge Disposition: Discharged to home or Selfcare 01/09/2025 Transcribe Orders [facility] [address] [place] [phone] Kim Benavidez APRN, MEDICAL CLERICAL ASSISTANT Sleep-disordered breathing (Primary Dx) 01/09/2025 Transcribe Orders [facility] [address] [place] [phone] Kim Benavidez PERMANENT MOLD SUPERVISOR, MEDICAL CLERICAL ASSISTANT Sleep-disordered breathing (Primary Dx) 01/08/2025 Telephone [facility] [place] [phone] Kim Benavidez, PERMANENT MOLD SUPERVISOR, MEDICAL CLERICAL ASSISTANT 01/08/2025 Nurse Triage [facility] [address] [place] [phone] Kim Benavidez, PERMANENT MOLD SUPERVISOR, MEDICAL CLERICAL ASSISTANT Referral; Skin Problem 01/07/2025 11:56 AM CDT - 01/07/2025 12:58 PM CDT Emergency [facility] [address] [place] [address] Wade Ansari MD Gait instability Discharge Disposition: Discharged to home or Selfcare 01/07/2025 Telephone [facility] [address] [place] [address] Kim Benavidez, PERMANENT MOLD SUPERVISOR, MEDICAL CLERICAL ASSISTANT Advice Only 01/07/2025 Travel 01/04/2025 Nurse Triage [facility] [address] [place] [address] Kim Benavidez APRN, MEDICAL CLERICAL ASSISTANT Dizziness 01/02/2025 Refill [facility] [place] [address] Kim Benavidez, PERMANENT MOLD SUPERVISOR, MEDICAL CLERICAL ASSISTANT Medication Refill 12/25/2024 2:15 PM CDT Office Visit [facility] [place] [address] Kim Benavidez, PERMANENT MOLD SUPERVISOR, MEDICAL CLERICAL ASSISTANT Diabetes mellitus type 2, noninsulin dependent (HCC) (Primary Dx); Sleep-disordered breathing; Type 2 diabetes mellitus with 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, without long-term current use of insulin (HCC); Folate deficiency; Generalized weakness Discharge Disposition: Discharged to home or Selfcare 12/25/2024 Travel 12/24/2024 Nurse Triage [facility] [address] [place] [address] Kim Benavidez APRN, MEDICAL CLERICAL ASSISTANT Advice Only; Dizziness 12/14/2024 2:00 PM CDT Office Visit [facility] [place] [address] Carlos Escobedo, PERMANENT MOLD SUPERVISOR, MEDICAL CLERICAL ASSISTANT Primary osteoarthritis of left knee (Primary Dx) Discharge Disposition: Discharged to home or Selfcare 12/14/2024 Travel 12/14/2024 Telephone [facility] [place] [address] Kim Benavidez, PERMANENT MOLD SUPERVISOR, MEDICAL CLERICAL ASSISTANT 12/10/2024 11:22 AM CDT - 12/10/2024 12:50 PM CDT [facility] [address] [place] [address] Wade Ansari MD Vertigo Discharge Disposition: Discharged to home or Selfcare 12/10/2024 Travel 12/10/2024 Documentation Only [facility] [place] [address] Kim Benavidez, PERMANENT MOLD SUPERVISOR, MEDICAL CLERICAL ASSISTANT 12/05/2024 Nurse Triage [facility] [address] [place] [phone] Kim Benavidez, PERMANENT MOLD SUPERVISOR, MEDICAL CLERICAL ASSISTANT Appointment; Dizziness; Headache 11/24/2024 1:30 PM CDT - 11/24/2024 7:17 PM CDT [facility] [address] [place] [address] Karthikeyan Walker, PERMANENT MOLD SUPERVISOR, MEDICAL CLERICAL ASSISTANT Fall Discharge Disposition: Discharged to home or Selfcare 11/24/2024 Travel 11/19/2024 [facility]ill [facility] [place] [address] Jairo Kelly MD Medication Refill from Last 3 Months Immunizations Immunization Administration [...] Sign Reading Time Taken Comments Blood Pressure 132/60 01/09/2025 12:59 PM CDT Pulse 69 01/09/2025 12:59 PM CDT Temperature 36.5 C (97.7 F) 01/09/2025 12:59 PM CDT Respiratory Rate 12 01/09/2025 12:5 9 PM CDT Oxygen Saturation 96% 01/09/2025 12: 59 PM CDT Inhaled Oxygen Concentration - - Weight 114.3 kg (251 lb 14.4 oz) 2024 12:59 PM CDT Height 177.8 cm (5' 10) 01/09/2025 12: 59 PM CDT Body Mass Index 36.14 01/09/2025 12:59 PM CDT Plan of Treatment Upcoming Encounters Date Type Department Care Team (Late st Contact Info) Description 02/19/2025 1:45 PM CDT Office Visit [facility] [place] [place] [address] [place] [address] Kim Benavidez, PERMANENT MOLD SUPERVISOR, MEDICAL CLERICAL ASSISTANT [address] [place] [address] Health Maintenance Due Date Last Done Comments Diabetes: Foot Exam 1952 Cologuard 1997 Colonoscopy 1997 Colorectal Cancer Screening 1997 Immunochemical Fecal Occult Blood 1997 Respiratory Syncytial Virus (RSV) Immunization (Adult) (1 - Risk 60-74 years 1-dose series) 2012 AAA Screening Ultrasound 2017 Influenza Immunization (#1) 12/31/202401/30, 02/10/2021, 03/19/2020, Additional history exists SARS-COV-2 Immunization ( season) 2024 02/17/2022, 09/23/2021, 03/25/2021, Additional history exists Diabetes: Hemoglobin A1c 06/27/2025 025, 10/08/2024, 04/13/2024, Additional history exists Diabetes: Nephropathy Screening 12/10/2025 12/10/2024, 11/24/2024, 10/08/2024, Additional history exists Diabetes: Eye Exam 12/19/2025 12/19/2024 Td Immunization Every 10 Years (Adults With [...] Procedure Name Priority Date/Time Associated Diagnosis Comments POCT GROUP A STREP SCREEN RAPID Routine 01/09/2025 1:45 PM CDT Sore throat POCT GLYCOSYLATED HEMOGLOBIN Routine 12/25/2024 2:30 PM CDT Diabetes mellitus type 2, noninsulin dependent (HCC) DRAIN/INJECT LARGE JOINT/BURSA Routine 12/14/2024 5:44 PM CDT Primary osteoarthritis of left knee CT HEAD OR BRAIN WO CONTRAST Stat with Interpretation 12/10/2024 12:00 PM CDT GOLD TOP TUBE STAT 12/10/2024 11:39 AM CDT CBC WITH AUTO DIFFERENTIAL STAT 12/10/2024 11:39 AM CDT EXTRA TUBES STAT 12/10/2024 11:39 AM CDT ETHYL ALCOHOL (ETHANOL) STAT 12/10/2024 11:39 AM CDT PROTIME (PT) (PROTHROMBIN TIME) STAT 12/10/2024 11:39 AM CDT MAGNESIUM (MG) STAT 12/10/2024 11:39 AM CDT CMP (COMPREHENSIVE METABOLIC PANEL) STAT 12/10/2024 11:39 AM CDT COMPLETE BLOOD COUNT (CBC) WITH DIFF STAT 12/10/2024 11:39 AM CDT POCT GLUCOSE STAT 12/10/2024 11:33 AM CDT EKG 12 LEAD STAT 12/10/2024 11:24 AM CDT EKG SCAN 12/10/2024 12:00 AM CDT TROPONIN I, HIGH SENSITIVITY (HSTRP) STAT 11/24/2024 4:05 PM CDT XR HIP 2 VIEWS BILATERAL WITH AP PELVIS STAT 11/24/2024 2:33 PM CDT XR CHEST SINGLE VIEW PORTABLE STAT 11/24/2024 2:32 PM CDT EKG 12 LEAD STAT 11/24/2024 2:[address] HEAD OR BRAIN WO CONTRAST Stat with Interpretation 11/24/2024 2:11 PM CDT URINALYSIS REFLEX IF INDICATED BY ABNORMAL RESULTS STAT 11/24/2024 2:00 PM CDT CBC WITH AUTO DIFFERENTIAL STAT 11/24/2024 1:59 PM CDT N-TERMINAL- PRO B TYPE NATRIURETIC PEPTIDE STAT 11/24/2024 1:59 PM CDT TROPONIN I, HIGH SENSITIVITY (HSTRP) STAT 11/24/2024 1:59 PM CDT CREATINE KINASE (CK) TOTAL STAT 11/24/2024 1:59 PM CDT CMP (COMPREHENSIVE METABOLIC PANEL) STAT 11/24/2024 1:59 PM CDT COMPLETE BLOOD COUNT (CBC) WITH DIFF STAT 11/24/2024 1:59 PM CDT EKG SCAN 11/24/2024 12:00 AM CDT HEPATITIS C ANTIBODY Routine 10/08/2024 11:30 AM CDT Need for hepatitis C screening test PSA DIAGNOSTIC,TOTAL Routine 02/19/2019 10:38 AM CDT BPH with obstruction/lower urinary tract symptoms Urgency of urination Abnormal prostate biopsy from Last 3 Months or Most Recently Relevant to Health Maintenance Results * POCT GROUP A STREP SCREEN RAPID (01/09/2025 1:45 PM CDT) POC STREP SCRN Presumptive negative Invalid, Presumptive negative, VOID POC STREP SCREEN CONTROL [facility] 01/09/2025 1:45 PM CDT Briana Solis APRN, CNP POINT OF CARE TESTING (MANUAL) Final Result * (ABNORMAL) POCT GLYCOSYLATED HEMOGLOBIN (12/25/2024 2:30 PM CDT) HGB-A1C 7.4(A) 4 - 6 % 12/25/2024 2:30 PM CDT Result [facility] Kim Benavidez APRN, CNP POINT OF CARE TESTING (M ANUAL) Final Result * DRAIN/INJECT LARGE JOINT/BURSA (12/14/2024 5:44 PM CDT) Narrative Carlos Escobedo APRN, CNP - 12/14/2024 5:44 PM CDT Carlos Escobedo APRN, CNP 12/14/2024 5:45 PM Joint Injection/Aspiration Date/Time: 12/14/2024 5:44 PM Performed by: Carlos Escobedo APRN, CNP Authorized by: Carlos Escobedo APRN, CNP Consent: Consent obtained: Written Consent given by: Patient Risks, benefits, and alternatives were discussed: yes Risks discussed: Bleeding, infection, pain, incomplete drainage and nerve damage Alternatives discussed: No treatment, alternative treatment, observation and referral [place] protocol: Procedure explained and questions answered to patient or proxy's satisfaction: yes Relevant documents present and verified: yes Test results available: yes Imaging studies available: yes Required blood products, implants, devices, and special equipment available: yes Site/side marked: yes Immediately prior to procedure, a time out was called: yes Patient identity confirmed: Verbally with patient Location: Location: Knee Knee: L knee Anesthesia: Anesthesia method: None Procedure details: Preparation: Patient was prepped and draped in usual sterile fashion Needle gauge: 22 G Ultrasound guidance: no Approach: Anterior Aspirate amount: 0 Steroid injected: yes Viscosupplement injected: no Specimen collected: no Post-procedure details: Dressing: Adhesive bandage Procedure completion: Tolerated well, no immediate complications us Carlos Jairo Gregg ROSENN, MEDICAL CLERICAL ASSISTANT PROCEDURE/MINOR SURGICAL ORDERABLES Final Result * CT HEAD OR BRAIN WO CONTRAST (12/10/2024 12:00 PM CDT) Only the most recent of2 resultswithin the time period is included. Anatomical Region Laterality Modality Head N/A Computed Tomogra phy 12/10/2024 12:1 8 PM CDT Impressions 12/10/2024 12:20 PM CDT IMPRESSION: No acute intracranial findings. Similar appearance of moderate chronic microangiopathy and ukye-zf-rxikxsbd generalized atrophy. Narrative 12/10/2024 12:20 PM CDT EXAM DESCRIPTION: CT HEAD OR BRAIN WO CONTRAST REASON FOR STUDY: Chronic Dizziness, wanted to be checked out again. Has been told it is because plaque in his cerebral arteries that make him dizzy. History of BPH, diabetes type 2 not on insulin, hypertension, IBS, knee pain, neuropathy, pulmonary hypertension and morb TECHNIQUE: Axial images acquired through the brain without intravenous contrast. Images stored on PACS. Automated exposure control was used as a dose optimization technique for this examination. COMPARISON: CT head 11/24/2024 FINDINGS: BRAIN: No hemorrhage, edema or mass effect. No recent infarct. Similar appearance low attenuation in the supratentorial deep cerebral white matter likely related to moderate chronic microangiopathy. There is also jfmd-me-qxvkpiht generalized atrophy. No hydrocephalus. EXTRA-AXIAL SPACES: No fluid collections. No masses. CALVARIUM: No fracture. SINUSES/MASTOIDS: No fluid or mucosal thickening. ORBITS: No significant abnormality. OTHER: No other significant abnormality. THIS IS AN ELECTRONICALLY VERIFIED FINAL REPORT 12/10/2024 12:18 PM - Electronically signed by Jim Garcia M.D. AM: AM Report ID: [id number] Reading Location: [id number] Procedure Note Jim Garcia MD - 12/10/2024 EXAM DESCRIPTION: CT HEAD OR BRAIN WO CONTRAST REASON FOR STUDY: Chronic Dizziness, wanted to be checked out again. Has been told it is because plaque in his cerebral arteries that make him dizzy. History of BPH, diabetes type 2 not on insulin, hypertension, IBS, knee pain, neuropathy, pulmonary hypertension and morb TECHNIQUE: Axial images acquired through the brain without intravenous contrast. Images stored on PACS. Automated exposure control was used as a dose optimization technique for this examination. COMPARISON: CT head 11/24/2024 FINDINGS: BRAIN: No hemorrhage, edema or mass effect. No recent infarct. Similar appearance low attenuation in the supratentorial deep cerebral white matter likely related to moderate chronic microangiopathy. There is also agsc-nn-wfxvhehk generalized atrophy. No hydrocephalus. EXTRA-AXIAL SPACES: No fluid collections. No masses. CALVARIUM: No fracture. SINUSES/MASTOIDS: No fluid or mucosal thickening. ORBITS: No significant abnormality. OTHER: No other significant abnormality. THIS IS AN ELECTRONICALLY VERIFIED FINAL REPORT 12/10/2024 12:18 PM - Electronically signed by Jim Garcia M.D. AM: AM Report ID: [id number] Reading Location: [id number] IMPRESSION: No acute intracranial findings. Similar appearance of moderate chronic microangiopathy and jqqf-qw-cssfpesb generalized atrophy. Wade Ansari MD IMG CT ORDERABLES Final Re sult * Gold Top Tube (12/10/2024 11:39 AM CDT) Blood No Phlebotomy Charged / Unknown 12/10/2024 11:39 AM CDT 12/10/2024 11:55 AM CDT Wade Ansari MD CHEMISTRY ORDERABLES Final Result [facility] [place] [address] * (ABNORMAL) CBC with Auto Differential (12/10/2024 11:39 AM CDT) Only the most recent of2 resultswithin the time period is included. WBC 10.83 4.00 - 12.00 10(3)/mcL 12/10/2024 11:59 AM CDT [facility] RBC 5.44 4.40 - 5.80 10(6)/[facility] 12/10/2024 11:59 AM CDT [facility] HEMOGLOBIN (HGB) 16.5 13.0 - 16.5 g/dL 12/10/2024 11:59 AM CDT [facility] HEMATOCRIT (HCT) 49.7 38.0 - 50.0 % 12/10/2024 11:59 AM CDT [facility] MCV 91.4 82.0 - 96.0 fL 12/10/2024 11:59 AM CDT [facility] MCH 30.3 26.0 - 32.0 pg 12/10/2024 11:59 AM CDT [facility] MCHC 33.2 31.0 - 36.0 g/dL 12/10/2024 11:59 AM CDT [facility] PLATELET COUNT 186 140 - 440 10(3)/[facility] 12/10/2024 11:59 AM CDT [facility] RDW 13.8 11.8 - 15.5 % 12/10/2024 11:59 AM CDT [facility] MPV 10.3 8.0 - 12.6 fL 12/10/2024 11:59 AM CDT [facility] NEUTROPHILS 77.7(H) 40.0 - 68.0 % 12/10/2024 11:59 AM CDT [facility] LYMPHOCYTES 11.4(L) 19.0 - 49.0 % 12/10/2024 11:59 AM CDT [facility] MONOCYTES 7.4 3.0 - 13.0 % 12/10/2024 11:59 AM CDT [facility] EOSINOPHILS 0.9 0.0 - 8.0 % 12/10/2024 11:59 AM CDT [facility] BASOPHILS 0.6 0.0 - 1.0 % 12/10/2024 11:59 AM CDT [facility] IMMATURE GRANULOCYTE 2.0(H) 0.0 - 0.4 % 12/10/2024 11:59 AM CDT [facility] Comment:Immature Granulocyte s includes Metamyelocytes, Myelocytes, and Promyelocytes. ABSOLUTE NEUTROPHILS 8.41(H) 1.40 - 5.30 10(3)/mcL 12/10/2024 11:59 AM CDT [facility] ABSOLUTE LYMPHOCYTES 1.23 0.90 - 3.30 10(3)/mcL 12/10/2024 11:59 AM CDT [facility] ABSOLUTE MONOCYTES 0.80 0.10 - 0.90 10(3)/[facility] 12/10/2024 11:59 AM CDT [facility] ABSOLUTE EOSINOPHIL 0.10 0.00 - 0.50 10(3)/[facility] 12/10/2024 11:59 AM CDT [facility] ABSOLUTE BASOPHILS 0.07 0.00 - 0.10 10(3)/[facility] 12/10/2024 11:59 AM CDT [facility] ABSOLUTE IMMATURE GRANULOCYTE 0.22(H) 0.00 - 0.03 10 (3) [facility]. 12/10/2024 11:59 AM CDT [facility] NRBC PER 100 WBC 0 12/11/19 25 11:59 AM CDT [facility] Blood Venipuncture / Unknown 12/10/2024 11:39 AM CDT 12/10/2024 11:53 AM CDT us Wade Ansari MD HEMATOLOGY ORDERABLES Holly leigh Result [facility] [address] [place] [address] * PT / INR (12/10/2024 11:39 AM CDT) Pathologist [facility] PROTIME-PATIENT 13.3 11.6 - 14.8 sec 12/10/2024 12:12 PM CDT [facility] INR 1.0 0.9 - 1.2 12/10/2024 12:12 PM CDT [facility] Comment: Therapeutic Ranges INR = 2.0-3.0: Venous thromb, atrial fib, pul embolism, tissue heart valve, ami. INR = 2.5-3.5: Mechanical heart valve Critical value for INR is >/= 4.5 Blood Venipuncture / Unknown 12/10/2024 11:39 AM CDT 12/10/2024 11:53 AM CDT Wade Ansari MD HEMATOLOGY ORDERABLES Holly l Result Performing Organization Address City/[facility]/ZIP Co de Phone Number [facility] [address] [place] [address] * Magnesium (12/10/2024 11:39 AM CDT) [facility] MAGNESIUM 2.0 1.6 - 2.6 mg/dL 12/10/2024 12:23 PM CDT [facility] Blood Venipuncture / Unknown 12/10/2024 11:39 AM CDT 12/10/2024 11:53 AM CDT Wade Ansari MD CHEMISTRY ORDERABLES Final Result [facility] [address] [place] [address] * ETOH Level (12/10/2024 11:39 AM CDT) [facility] ETHANOL <10 <10 mg/dL 12/10/2024 12:23 PM CDT [facility] Blood Venipuncture / Unknown 12/10/2024 11:39 AM CDT 12/10/2024 11:53 AM CDT us Wade Ansari MD CHEMISTRY ORDERABLES Final Result [facility] [address] [place] [address] * (ABNORMAL) CMP (12/10/2024 11:39 AM CDT) Only the most recent of2 resultswithin the time period is included. SODIUM 144 136 - 145 mmol/L 12/10/2024 12:23 PM CDT [facility] POTASSIUM 3.4(L) 3.5 - 5.1 mmol/L 12/10/2024 12:23 PM CDT [facility] CHLORIDE 106 98 - 107 mmol/L 12/10/2024 12:23 PM CDT [facility] CO2, VENOUS 27 22 - 30 mmol/L 12/10/2024 12:23 PM CDT [facility] ANION GAP 14.4 <18.0 mmol/L 12/10/2024 12:23 PM CDT [facility] GLUCOSE 143(H) 70 - 99 mg/dL 12/10/2024 12:23 PM CDT [facility] BUN 29(H) 8 - 26 mg/dL 12/10/2024 12:23 PM CDT [facility] CREATININE, BLOOD 1.38(H) 0.70 - 1.30 mg/dL 12/10/2024 12:23 PM CDT [facility] BUN/CREATININE RATIO 21(H) 12 - 20 ratio 12/10/2024 12:23 PM CDT [facility] TOTAL PROTEIN 7.1 6.0 - 8.0 g/dL 12/10/2024 12:23 PM CDT [facility] ALBUMIN 4.1 3.5 - 5.0 g/dL 12/10/2024 12:23 PM CDT [facility] A/G RATIO 1.4 1.0 - 2.2 12/10/2024 12:23 PM CDT [facility] CALCIUM 9.3 8.7 - 10.5 mg/dL 12/10/2024 12:23 PM CDT [facility] T BILI 0.6 0.2 - 1.2 mg/dL 12/10/2024 12:23 PM CDT [facility] SGOT (AST) 18 <43 U/L 12/10/2024 12:23 PM CDT [facility] SGPT (ALT) 17 <56 U/L 12/10/2024 12:23 PM CDT [facility] ALKALINE PHOSPHATASE 93 40 - 150 U/L 12/10/2024 12:23 PM CDT [facility] GFR, ESTIMATED 54(L) >=60 12/10/2024 12:23 PM CDT [facility] Comment: Creatinine Clearance is the preferred criteria for selecting drug dose adjustments in renally impaired patients. The GFR is provided as additional pertinent clinical information. GFR is reported in mL/min/1.73 sq m. Calculation based on the Chronic Kidney Disease Epidemiology Collaboration (CKD- EPI) equation refit without adjustment for race. GFR, EST. >60 >=60 025 12:23 PM CDT [facility] GFR, EST. NONAFRICAN 51(L) >=60 12/10/2024 12:23 PM CDT [facility] Blood Venipuncture / Unknown 12/10/2024 11:39 AM CDT 12/10/2024 11:53 AM CDT us Wade Ansari MD CHEMISTRY ORDERABLES Final Result [facility] [address] [place] [address] * (ABNORMAL) POCT Glucose (12/10/2024 11:33 AM CDT) GLUCOSE,BEDSID E POCT 133(H) 70 - 99 mg/dL 12/10/2024 11:34 AM CDT [facility] Comment: RN Notified PAT CLAROS Blood 12/10/2024 11:3 3 AM CDT 12/10/2024 11:34 AM CDT us None Provider POINT OF CARE TESTING Final Resu lt [facility] [address] [place] [address] * EKG 12 LEAD (12/10/2024 11:24 AM CDT) Only the most recent of2 resultswithin the time period is included. Ventricular Rate 63 BPM EXTERNAL EKG Atrial Rate 63 BPM EXTERNAL EKG P-R Interval 184 ms EXTERNAL EKG QRS Duration 90 ms EXTERNAL EKG Q-T Duration 442 ms EXTERNAL EKG QTC CALCULATION 452 ms EXTERNAL EKG P [place] 44 degrees EXTERNAL EKG R [place] -31 degrees EXTERNAL EKG T [place] 170 degrees EXTERNAL EKG 12/10/2024 11:2 4 AM CDT Impressions EXTERNAL EKG - 12/10/2024 3:19 PM CDT Normal sinus rhythm Left axis deviation Left ventricular hypertrophy with repolarization abnormality ( R in aVL ) Abnormal ECG When compared with ECG of 24-NOV-2024 14:29, No significant change was found Confirmed by Jacinto Osorio ([id number]) on 12/10/2024 3:19:53 PM Narrative Procedure Note Jacinto Osorio MD PhD - 12/10/2024 IMPRESSION: Normal sinus rhythm Left axis deviation Left ventricular hypertrophy with repolarization abnormality ( R in aVL) Abnormal ECG When compared with ECG of 24-NOV-2024 14:29, No significant change was found Confirmed by Jacinto Osorio ([id number]) on 12/10/2024 3:19:53 PM us Wade Ansari MD IMG ECG ORDERABLES Final R esult EXTERNAL EKG * EKG SCAN (12/10/2024 12:00 AM CDT) Only the most recent of2 resultswithin the time period is included. 12/10/2024 us Provider Scan IMG ECG ORDERABLES Final Result Performing Organization Address City/[facility] Co de Phone Number RESULTING AGENCY * TROPONIN I, HIGH SENSITIVITY (HSTRP) (11/24/2024 4:05 PM CDT) Only the most recent of2 resultswithin the time period is included. TROPONIN I, HIGH SENSITIVITY- [place] 20 <=35 ng/L 11/24/2024 4:57 PM CDT [facility] Comment: High-sensitivity troponin I results are reported in ng/L making the result appear to be 1,000 times higher than the contemporary troponin I value which is reported in ng/ml. Results from [place]. Blood Venipuncture / Unknown 11/24/2024 4:05 PM CDT 11/24/2024 4:13 PM CDT Karthikeyan Walker APRN, CNP CHEMISTRY ORDERABLES Fi nal Result Performing Organization Address [facility] Co de Phone Number [facility] [address] [place] [address] * XR HIP 2 VIEWS BILATERAL WITH AP PELVIS (11/24/2024 2:33 PM CDT) Anatomical Region Laterality Modality LOWER EXTREMITY, hip, Pelvis Bilateral Dig ital Radiography 11/24/2024 2:43 PM CDT Impressions 11/24/2024 2:46 PM CDT IMPRESSION: 1. No acute osseous abnormality. 2. Mild osteoarthritis of the right and left hips. Narrative 11/24/2024 2:46 PM CDT EXAM DESCRIPTION: XR HIP 2 VIEWS BILATERAL WITH AP PELVIS REASON FOR STUDY: generalized weakness, GLF while trying to get into his vehicle x today. pt states he landed on his hip, denies pain. denies head injury or LOC. Hx of DM, HTN TECHNIQUE: AP pelvis and 2 radiographic views of the bilateral hips. COMPARISON: None FINDINGS: No acute fracture or dislocation. Mild osteoarthritis of the right and left hips. THIS IS AN ELECTRONICALLY VERIFIED FINAL REPORT 11/24/2024 2:43 PM - Electronically signed by Marin BECKMAN: RK Report ID: [id number] Reading Location: [id number] Procedure Note Marin Agustin MD - 11/24/2024 EXAM DESCRIPTION: XR HIP 2 VIEWS BILATERAL WITH AP PELVIS REASON FOR STUDY: generalized weakness, GLF while trying to get into his vehicle x today. pt states he landed on his hip, denies pain. denies head injury or LOC. Hx of DM, HTN TECHNIQUE: AP pelvis and 2 radiographic views of the bilateral hips. COMPARISON: None FINDINGS: No acute fracture or dislocation. Mild osteoarthritis of the right and left hips. THIS IS AN ELECTRONICALLY VERIFIED FINAL REPORT 11/24/2024 2:43 PM - Electronically signed by Marin Agustin M.D. KR: RK Report ID: [id number] Reading Location: [id number] IMPRESSION: 1. No acute osseous abnormality. 2. Mild osteoarthritis of the right and left hips. Karthikeyan Walker APRN, MEDICAL CLERICAL ASSISTANT IMG DIAGNOSTIC ORDERABL ES Final Result * XR CHEST SINGLE VIEW PORTABLE (11/24/2024 2:32 PM CDT) Anatomical Region Laterality Modality Chest N/A Computed Radiogr aphy 11/24/2024 2:46 PM CDT Impressions 11/24/2024 2:49 PM CDT IMPRESSION: No acute cardiopulmonary abnormality. Narrative 11/24/2024 2:49 PM CDT EXAM DESCRIPTION: XR CHEST SINGLE VIEW PORTABLE REASON FOR STUDY: generalized weakness, GLF while trying to get into his vehicle x today. pt states he landed on his hip, denies pain. denies head injury or LOC. Hx of DM, HTN TECHNIQUE: 1 radiographic view(s) of the chest. COMPARISON: 10/04/2024 FINDINGS: LUNGS: No focal opacity, pleural effusion, or pneumothorax. HEART/MEDIASTINUM: Cardiac silhouette normal in size. Mediastinal and hilar contours appear normal. LINES/TUBES: None. BONES: No acute osseous abnormality. THIS IS AN ELECTRONICALLY VERIFIED FINAL REPORT 11/24/2024 2:46 PM - Electronically signed by Marin Agustin M.D. KR: RK Report ID: [id number] Reading Location: [id number] Procedure Note Marin Agustin MD - 11/24/2024 EXAM DESCRIPTION: XR CHEST SINGLE VIEW PORTABLE REASON FOR STUDY: generalized weakness, GLF while trying to get into his vehicle x today. pt states he landed on his hip, denies pain. denies head injury or LOC. Hx of DM, HTN TECHNIQUE: 1 radiographic view(s) of the chest. COMPARISON: 10/04/2024 FINDINGS: LUNGS: No focal opacity, pleural effusion, or pneumothorax. HEART/MEDIASTINUM: Cardiac silhouette normal in size. Mediastinal and hilar contours appear normal. LINES/TUBES: None. BONES: No acute osseous abnormality. THIS IS AN ELECTRONICALLY VERIFIED FINAL REPORT 11/24/2024 2:46 PM - Electronically signed by Marin Agustin M.D. KR: RK Report ID: [id number] Reading Location: [id number] IMPRESSION: No acute cardiopulmonary abnormality. Karthikeyan Walker APRN, MEDICAL CLERICAL ASSISTANT IMG DIAGNOSTIC ORDERABL ES Final Result * (ABNORMAL) URINALYSIS REFLEX IF INDICATED BY ABNORMAL RESULTS (11/24/2024 2:00 PM CDT) SPECIFIC GRAVITY 1.015 1.003 - 1.030 11/24/2024 2:36 PM CDT [facility] URINE PH 5.0 5.0 - 9.0 11/24/2024 2:36 PM CDT [facility] WBC ESTERASE Negative Negative 11/24/2024 2:36 PM CDT [facility] NITRITE Negative Negative 11/24/2024 2:36 PM CDT [facility] PROTEIN, RANDOM URINE 15 mg/dL(A) Negative 11/24/2024 2:36 PM CDT [facility] URINE GLUCOSE, QUAL 1000 mg/dL(A) Negative 11/24/2024 2:36 PM CDT [facility] URINE KETONES Negative Negative 11/24/2024 2:36 PM CDT [facility] UROBILINOGEN Normal Normal mg/dL 11/24/2024 2:36 PM CDT [facility] URINE BLOOD Negative Negative shayna/ul 11/24/2024 2:36 PM CDT [facility] URINALYSIS COLOR Yellow 11/25/19 2:36 PM CDT [facility] URINALYSIS CLARITY Clear 11/24/2024 2:36 PM CDT [facility] Urine URINE SPECIMEN OBTAINED BY CLEAN CATCH PROCEDURE / Unknown Non-Phlebotomy Collection / Unknown 11/24/2024 2:00 PM CDT 11/24/2024 2:06 PM CDT Karthikeyan Walker APRN, CNP URINE ORDERABLES Final Result [facility] [address] [place] [address] * (ABNORMAL) NT-proBNP (11/24/2024 1:59 PM CDT) NT PROBNP 510.9(H) <450.0 pg/mL 11/24/2024 2:36 PM CDT [facility] Comment: AGE pg/mL INTERPRETATION All <300 Negative: HF (Heart Failure) unlikely 18 to <50 >=300.0 to <450.0 Indeterminate. Consider other causes of NT-proBNP elevation 50 to 75 >=300.0 to <900.0 Indeterminate. Consider other causes of NT-proBNP elevation >75 >=300.0 to <1800.0 Indeterminate. Consider other causes of NT-proBNP elevation 18 to <50 >=450.0 Positive: HF likely 50 to 75 >=900.0 Positive: HF likely >75 >=1800.0 Positive: HF likely Total protein levels at or above 12.6 mg/dl may falsely decrease NT-proBNP values. Blood Venipuncture / Unknown 11/24/2024 1:59 PM CDT 11/24/2024 2:06 PM CDT Karthikeyan Walker APRN, CNP CHEMISTRY ORDERABLES Fi nal Result Performing Organization Address City/[facility]/ZIP Co de Phone Number [facility] [address] [place] [address] * (ABNORMAL) Creatine Kinase (CK) Total (11/24/2024 1:59 PM CDT) CK (CPK) 359(H) 30 - 200 U/L 11/24/2024 2:33 PM CDT [facility] Blood Venipuncture / Unknown 11/24/2024 1:59 PM CDT 11/24/2024 2:06 PM CDT Karthikeyan Walker APRN, CNP CHEMISTRY ORDERABLES Fi nal Result [facility] [address] [place] [address] * HEPATITIS C ANTIBODY (10/08/2024 11:30 AM CDT) hepatitis C antibody 0.08 <1 S/CO 10/08/2024 9:54 PM CDT [facility] Comment: Signal/Cutoff ratio < 0.79 is Nondetected Signal/Cutoff ratio 0.80-0.99 is Grayzone Signal/Cutoff ratio > 0.99 is Detected Supplemental assays are recommended if signal/cutoff ratio is >/=1.00. Signal/cutoff ratio result >/= 5.00 is 97% predictive of positivity for recombinant immunoblot assay (RIBA) and will be reported to the [place] Department of Public Health as required. Blood Venipuncture / Unknown 10/08/2024 11:30 AM CDT 10/08/2024 11:48 AM CDT Kim Benavidez PERMANENT MOLD SUPERVISOR, MEDICAL CLERICAL ASSISTANT CHEMISTRY ORDERABLES Fin al Result Performing Organization Address City/[facility]/ZIP Co de Phone Number [facility] [address] [place] [address], * (ABNORMAL) PSA DIAGNOSTIC,TOTAL (02/19/2019 10:38 AM CDT) PSA, TOTAL (PROSTATIC SPECIFIC ANTIGEN) 6.36(H) <=4.00 ng/mL 02/19/2019 1:24 PM CDT [facility] Blood specimen (specimen) Venipuncture / Unknown 02/19/2019 10:38 AM CDT 02/19/2019 12:34 PM CDT Narrative [facility] - 02/19/2019 1:24 PM CDT PSA NOTE: The PSA value should be used in conjunction with information available from clinical evaluation and other diagnostic procedures. Michelet Moran MD CHEMISTRY ORDERABLES Final Result Performing Organization Address City/[facility]/ZIP Co de Phone Number [facility] [address] [place] [address] from Last 3 Months or Most Recently Relevant to Health Maintenance Insurance MEDICARE C [facility] Advance Directives * Full Code (Latest Code Status on File) Date Activated Date Inactivated Comments 08/07/2024 2:22 PM Care Teams Forestry Faculty Member Relationship Specialty Start Date End Date Kim Benavidez, PERMANENT MOLD SUPERVISOR, MEDICAL CLERICAL ASSISTANT [address] [place] [address] PCP - General Advanced Practice Nurse 09/28/24 Mark De Los Santos MD Consulting Physician Urology 09/05/15 Rand Tsang MD Consulting Physician Dermatopathology 01/16/18
--- OUTSIDE RECORDS SUMMARY | 2025-01-18 14:54 | XMS_ITS | Encounter Summary ---
Author Organization [facility] Address [address] [place] [address] Phone Care Team Providers Care Ceramic Maker Demonstrator Name Role Phone Carlos Moran MD Primary Care Provider [phone] Mark De Los Santos MD Unavailable Unavailable Rand Tsang MD Unavailable [phone] Provider, None Primary Care Provider UnavailSohail Kc MD Primary Care Provider [phone] Carlos Moran MD Primary Care Provider [phone] Sohail Gould MD Primary Care Provider [phone] Vicki Salmeron APRN Primary Care Provider [phone] Kim Benavidez APRN, [facility] Primary Care Provider + Reason for Visit * Reason Comments Medication Refill Encounter Details Date Type Department Care Team (Late st Contact Info) Description 03/21/2020 Refill [facility] - Primary Care - [place] [address] [place] [address] Carlos Moran MD [address] [place] [address] Medication Refill Social History Tobacco [...] COVID-19? No / Unsure 03/13/2020 2:58 PM MILITARY SCIENCE TEACHER documented as of this encounter Miscellaneous Notes * Telephone Encounter - Carlos Moran MD - 03/21/2020 10:53 AM MILITARY SCIENCE TEACHER Refill request approved. TARY SCIENCE TEACHER * Telephone Encounter - Tavia Pablo [facility] - 03/21/2020 10:42 AM MILITARY SCIENCE TEACHER Medication failed the protocol, provider to review [...] weeks ago Acute pain of left knee [facility] Carlos Moran MD 1 month ago Cellulitis of mouth [facility] Carlos Moran MD 1 month ago Polyneuropathy associated with underlying disease (HCC) [facility] Carlos Moran MD 4 months ago [facility]pertension[facility] - Carlos Pathak MD 8 months ago Urinary pain [facility] Gonzalez MD Upcoming Appointments Future Appointments In 1 month Fox Shearer MD [facility] - Neurology [facility] In 1 month Carlos Moran MD [facility] - [facility], [place] JET INSPECTOR - Recent and Past Visits Recent Visits Date Type Provider Dept 02/28/20 [facility] Visit [facility] 02/18/20 [facility] [address] 02/05/20 [facility] 10/24/19 Office Visit Carlos Moran, MD [facility] 07/13/19 Office Visit Carlos Moran, MD [facility] 04/23/19 Office Visit Carlos Moran, [facility] 02/12/19 [facility] Show[facility] recent visits within past 460 days with a meds authorizing provider and meeting all other requirements Future Appointments Date Type Provider Dept 04/24/20 Appointment Carlos Moran, [facility] Showing future appointments within next 90 days with a meds authorizing provider and meeting all other requirements TARY SCIENCE TEACHER documented in this encounter Plan of Treatment Upcoming Encounters Date Type Department Care Team (Late st Contact Info) Description 02/19/2025 1:45 PM CDT Office Visit [facility] [address] [place] [address] Kim Benavidez, AIR DEODORIZER SERVICER, JUNIOR SYSTEMS ENGINEER [address] [place] [address] documented as of this encounter Visit Diagnoses Not on filedocumented in this encounter Additional Health Concerns Assessment Noted Time PHQ-9 Depression Total Score: 0 07/13/19 20 10:00 AM CDT documented as of this encounter Care Teams Ceramic Maker Demonstrator Relationship Specialty Start Date End Date Carlos Moran MD [address] [place] [address] PCP - General Internal Medicine 01/28/15 04/21/20 Provider, None [place] PCP - General 04/22/20 08/04/20 Sohail Gould MD [address] [place] [address] PCP - General Family Medicine 08/05/20 10/06/20 Carlos Moran MD [address] [place] [address] PCP - General Internal Medicine 10/07/20 08/19/21 Sohail Gould MD [address] [facility] [place] [address] PCP - General Family Medicine 08/20/21 08/15/24 Vicki Salmeron APRN [address] [place] [address] [place] [address] PCP - General Advanced Practice Nurse 08/16/24 Kim Benavidez APRN, JUNIOR SYSTEMS ENGINEER [address] [place] [address] PCP - General Advanced Practice Nurse 09/28/24 Mark De Los Santos MD [address] [place] [address] Consulting Physician Urology 09/05/15 Rand Tsang MD [address] [place] [address] Consulting Physician Dermatopathology 01/16/18 documented as of this encounter
--- OUTSIDE RECORDS SUMMARY | 2025-01-18 14:54 | XMS_ITS | Encounter Summary ---
Author Organization [facility] Address [address] [place] [address] Care Team Providers Care Winding Operator Name Role Phone Nicolas Jnug MD Unavailable Louie Lomeli MD Unavailable [phone] Melchor Woodard MD Primary Care Provider [phone] Jairo Sparrow MD Unavailable [phone] NavarreteMaria Eugenia quiñones [facility] Unavailable Encounter Details Date Type Department Care Team (Late st Contact Info) Description 06/02/[address] [facility] [address] [facility] [address] [place] [address] Jonathan Miranda MD [address] [place], [place] [id number] Social History Tobacco Use Types Packs/Day Years [...] week 02/04/2023 How often do you attend [facility] or denominational services? Never 02/04/2023 Do you belong to [...] on file Legal Sex Male 12:23 AM CHARGE COORDINATOR Gender Identity Not on file Sexual Orientation [...] COVID: Suspected 06/12/2024 06/12/2024 06/12/2024 4:34 PM CHARGE COORDINATOR COVID: Suspected 07/30/2024 07/30/2024 07/30/2024 4:38 PM CDT documented as of this encounter Care Teams Winding Operator Relationship Specialty Start Date End Date Melchor Woodard MD PCP - General Family Practice 07/30/22 Nicolas Jung MD Surgeon Orthopedic Surgery 08/05/21 Louie Lomeli MD Consulting Physician Cardiology 12/23/21 Jairo Sparrow MD [address] [place] [address] [address] [facility] [place] [address] Consulting Physician Neurology 12/14/22 Maria Eugenia Navarrete, [address] [place] [address] Pharmacist Pharmacy 03/12/24 03/12/24 documented as of this encounter
--- OUTSIDE RECORDS SUMMARY | 2025-01-18 14:54 | XMS_ITS | Encounter Summary ---
Author Organization [facility] Address [address] [address] Phone Care Team Providers Care Lime Kiln Tender Name Role Phone Mark De Los Santos MD Unavailable Unavailable Rand Tsang MD Unavailable Kim Benavidez SOIL TECHNOLOGIST, CIRCUIT COURT JUDGE Primary Care Provider + Reason for Visit * Reason Onset Date Comments Referral 01/08/2025 Skin Problem 01/08/2025 Encounter Details Date Type Department Care Team (Late st Contact Info) Description 01/08/2025 [facility] [address] [place] [address] Kim Benavidez, SOIL TECHNOLOGIST, CIRCUIT COURT JUDGE [address] [place] [address] Referral; Skin Problem Social History Tobacco Use Types Packs/Day Years [...] encounter Miscellaneous Notes * Telephone Encounter - Daniela Fields RN - 01/08/2025 11:22 AM CDT SITUATION: 74 y.o. with skin growths BACKGROUND: Patient contacting PCP office. ASSESSMENT: Symptom Description / Location: Patient reports skin growths/bumps - one to left forearm, one left buttock, states they have been there for years Wants them removed, states he went to the ED 01/07 to have them removed and was told to follow up with PCP Denies Tender to touch Looks infected Looks like boil or sore Treatment / Response: no treatment Caller denies pain. Denies fever. RECOMMENDATION: Caller agreeable to highest disposition listed: See in Office or Video Visit Today or Tomorrow. Care advice provided per triage guideline. Caller verbalized understanding. Appointment Scheduled. All Patient Appointments Date & Time Provider Department Dept Phone 01/09/2025 1:00 PM [facility] - Family Medicine - [place] [phone] - Reason for Disposition: Caller can't describe it clearly . Protocols Used: Skin Lesion - Moles or Ckaqzti-D-IC See care advice and disposition for Guideline. First positive answer recorded, all responses to prior questions were negative. If symptoms increase, change or if new symptoms develop, call your health care provider or call back. Recommendations were based on caller information and is not a diagnosis. Verified and reviewed all triage information with caller. * Telephone Encounter - Daniela Fields RN - 01/08/2025 11:17 AM CDT Situation: patient is requesting a referral to (speciality) interior plant caretaker Background: Referral requested for cataracts Action: Name and location of patient's preferred specialty provider: Dr. Ignacio Woodard, [facility] Mariel Tejeda, [place] [id number] Patient been seen by this speciality in the past? No Recommendation: Referral request routed to provider for review. Contacter has been given the referral center information to call and check status of referral once the order has been signed. [facility] Region: Tuesday- Tuesday 8am-4:30pm, option 7 documented in this encounter Plan of Treatment Upcoming Encounters Date Type Department Care Team (Late st Contact Info) Description 02/19/2025 1:45 PM CDT Office Visit [facility] - Family [facility] [address] [place] [address] Kim Benavidez APRN, CIRCUIT COURT JUDGE [address] [place] [address] documented as of this encounter Visit Diagnoses Diagnosis Cataract, unspecified cataract type, unspecified laterality- Primary documented in this encounter Additional Health Concerns Assessment Noted Time PHQ-9 Depression Total Score: 0 09/29/19 11:18 AM CDT documented as of this encounter Care Teams Lime Kiln Tender Relationship Specialty Start Date End Date Kim Benavidez APRN, CIRCUIT COURT JUDGE [address] [place] [address] PCP - General Advanced Practice Nurse 09/28/24 Mark De Los Santos MD Consulting Physician Urology 09/05/15 Rand Tsang MD Consulting Physician Dermatopathology 01/16/18 documented as of this encounter
--- OUTSIDE RECORDS SUMMARY | 2025-01-18 14:54 | XMS_ITS | Encounter Summary ---
Author Organization [facility] Healthcare Address [address] [place] [address] Care Team Providers Care Entry Level Receptionist Name Role Phone Nicolas Jung MD Unavailable [phone] Louie Lomeli MD Unavailable [phone] Melchor Woodard MD Primary Care Provider [phone] Jairo Sparrow MD Unavailable [phone] Encounter Details Date Type Department Care Team (Late st Contact Info) Description 01/02/2025 Telephone [facility] [address] [place] [address] Jairo Sparrow MD [address] [place] [address] [address] [place] [address] Social History Tobacco Use Types [...] materials from doctor or pharmacy Sometimes 01/17/2024 [facility] Utilities Answer Date Recorded In the past 12 months has th e electric, gas, oil, or water company threatened to shut off services in your home? No 07/31/2024 Social Connection and Isolation Panel Answer Date Recorded In a typical week, how many times do you talk on the phone with family, friends, or neighbors? More than three times a week 07/31/2024 How often do you get togethe r with friends or relatives? Twice a week 07/31/2024 How often do you attend chur ch or sabianism services? Never 07/31/2024 Do you belong to [...] slept in a assisted (including now)? No 08/29/2023 Housing Stability Vital Sign Answer Víctor e Recorded In the last 12 months, was t here a time when you were not able to pay the mortgage or rent on time? No 07/31/2024 In the past 12 months, how m any times have you moved where you were living? 1 07/31/2024 At any time in the past 12 m [facility], were you homeless or living in a assisted (including now)? No 07/31/2024 Personal Safety Answer [...] on file Legal Sex Male 12:23 AM ASSOCIATE FACULTY Gender Identity Not on file Sexual Orientation Not on file documented as of this encounter Miscellaneous Notes * Telephone Encounter - Tere Hanna MA - 01/16/2025 11:36 AM CDT Lvm for pt to call back. * Telephone Encounter - Tere Hanna MA - 01/09/2025 9:54 AM CDT Lvm. * Telephone Encounter - Tere Hancock MA - 01/03/2025 2:05 PM CDT LVM for patient * Telephone Encounter - Tere Hancock MA - 01/03/2025 12:43 PM CDT Its under care everywhere in the other results * Telephone Encounter - Alyson Parnell - 01/02/2025 2:04 PM CDT Patient requests results of tilt table test done around Dec 20. documented in this encounter Plan of Treatment Not on file documented as of this encounter Visit Diagnoses Not on filedocumented in this encounter Care Teams Entry Level Receptionist Relationship Specialty Start Date End Date Melchor Woodard MD PCP - General Family Practice 07/30/22 Nicolas Jung MD Surgeon Orthopedic Surgery 08/05/21 Louie Lomeli MD Consulting Physician Cardiology 12/23/21 Jairo Sparrow MD [address] [place] [address] [place] [address] Consulting Physician Neurology 12/14/22 documented as of this encounter
--- OUTSIDE RECORDS SUMMARY | 2025-01-18 14:54 | XMS_ITS | Encounter Summary ---
Author Organization [facility] Address [address] [place] [address] Phone Care Team Providers Care Patient Biller Name Role Phone Mark De Los Santos MD Unavailable Unavailable Rand Tsang MD Unavailable [phone] ENGINEERING TEACHER, HAND CLOTH FOLDER Primary Care Provider + Reason for Visit * Reason Onset Date Comments Medication Refill 01/17/2025 Encounter Details Date Type Department Care Team (Late st Contact Info) Description 01/17/2025 Refill [facility] - Family Medicine [facility] [address] [place] [address] Kim Benavidez, HIGHWAY ENGINEERING TEACHER, HAND CLOTH FOLDER [address] [place] [address] Medication Refill Social History Tobacco Use Types [...] encounter Miscellaneous Notes * Telephone Encounter - Karen Lan RN - 01/17/2025 12:48 PM CDT Spoke to [facility] yesterday - let them know pt gets these from cardio: Louie Tafoya MD. [facility] said they would request from cardiology. * Telephone Encounter - Alayna Bush MA - 01/17/2025 11:14 AM CDT [facility] requesting new scripts for: Clopidogrel 75 mg tabs Isosorbide Mononitrate 30 mg tabs Sr24Hr documented in this encounter Plan of Treatment Upcoming Encounters Date Type Department Care Team (Late st Contact Info) Description 02/19/2025 1:45 PM CDT Office Visit [facility] - Family [facility] [address] [place] [address] Kim Benavidez, HIGHWAY ENGINEERING TEACHER, HAND CLOTH FOLDER [address] [place] [address] documented as of this encounter Visit Diagnoses Not on filedocumented in this encounter Additional Health Concerns Assessment Noted Time PHQ-9 Depression Total Score: 0 09/29/19 25 11:18 AM CDT documented as of this encounter Care Teams Patient Biller Relationship Specialty Start Date End Date Kim Benavidez, HIGHWAY ENGINEERING TEACHER, HAND CLOTH FOLDER [address] [place] [address] PCP - General Advanced Practice Nurse 09/28/24 Mark De Los Santos MD Consulting Physician Urology 09/05/15 Rand Tsang MD Consulting Physician Dermatopathology 01/16/18 documented as of this encounter
--- OUTSIDE RECORDS SUMMARY | 2025-01-18 14:54 | XMS_ITS | Encounter Summary ---
Author Organization [facility] Healthcare Address [address] [place] [address] Care Team Providers Care Livestock Showman Name Role Phone Nicolas Jung MD Unavailable [phone] Louie Lomeli MD Unavailable Melchor Woodard MD Primary Care Provider [phone] Jairo Sparrow MD Unavailable [phone] Maria Eugenia Navarrete [facility] Unavailable [phone] Encounter Details Date Type Department Care Team (Late st Contact Info) Description 01/24/2023 Orders Only [facility] [address] [address] [address] [place] [address] Miah Rodrigues MA Pre-op testing [...] week 12/24/2021 How often do you attend [facility] or confucianism services? Never 12/24/2021 Do you belong to [...] place to sleep or slept in a long term (including now)? No 12/24/2021 Sex and Gender Information Value Date Recorded Sex Assigned at Not on file Legal Sex Male 12:23 AM GRINDING MACHINE OPERATOR PORTABLE Gender Identity Not on file Sexual Orientation [...] COVID: Suspected 06/12/2024 06/12/2024 06/12/2024 4:34 PM GRINDING MACHINE OPERATOR PORTABLE COVID: Suspected 07/30/2024 07/30/2024 07/30/2024 4:38 PM CDT documented as of this encounter Care Teams Livestock Showman Relationship Specialty Start Date End Date Melchor Woodard MD PCP - General Family Practice 07/30/22 Nicolas Jung MD Surgeon Orthopedic Surgery 08/05/21 Louie Lomeli MD Consulting Physician Cardiology 12/23/21 Jairo Sparrow MD [address] [place] [address] [place] [address] Consulting Physician Neurology 12/14/22 Maria Eugenia Navarrete, [address] [place] [address] Pharmacist Pharmacy 03/12/24 03/12/24 documented as of this encounter
--- OUTSIDE RECORDS SUMMARY | 2025-01-18 14:54 | XMS_ITS | Encounter Summary ---
Author Organization [facility] Address [address] [facility] [place] [address] Care Team Providers Care Aircraft Maintenance Instructor Name Role Phone Carlos Moran MD Primary Care Provider [phone] Kim Benavidez Primary Care Provider [phone] Encounter Details Date Type Department Care Team (Late st Contact Info) Description 04/13/2024 Lab Requisition [facility] [address] [place] [address] [place] [address] Social History Tobacco Use Types Packs/Day Years Used Date Smoking Tobacco: Former Smokeless Tobacco: Never Alcohol Use Standard Drinks/Week Comments No 0 (1 standard drink = 0.6 oz pur e alcohol) Sex and Gender Information Value Date Recorded Sex Assigned at Not on file Legal Sex Male 11:59 AM GEAR CODING MACHINE OPERATOR Gender Identity Not on file Sexual Orientation Not on file documented as of this encounter Plan of Treatment Not on file documented as of this encounter Procedures Procedure Name Priority Date/Time Associated Diagnosis Comments TSH REFLEX FREE T4 STAT 04/13/2024 3: 21 PM GEAR CODING MACHINE OPERATOR HEMOGLOBIN A1C STAT 04/13/2024 3:21 PM GEAR CODING MACHINE OPERATOR CBC W AUTO DIFFERENTIAL STAT 04/13/2024 3:21 PM GEAR CODING MACHINE OPERATOR COMPREHENSIVE METABOLIC PANEL STAT 04/13/2024 3:21 PM GEAR CODING MACHINE OPERATOR LIPID PROFILE STAT 04/13/2024 3:21 PM GEAR CODING MACHINE OPERATOR documented in this encounter Results * (ABNORMAL) HEMOGLOBIN A1C (04/13/2024 3:21 PM GEAR CODING MACHINE OPERATOR) Hemoglobin A1c 7.3(H) <5.7 % 04/13/2024 3:47 PM GEAR CODING MACHINE OPERATOR [facility] Estimated Average Glucose 163 mg/dL 04/13/2024 3:47 PM GEAR CODING MACHINE OPERATOR [facility] Blood BLOOD SPECIMEN / Unknown 04/13/2024 3:21 PM GEAR CODING MACHINE OPERATOR 04/13/2024 3:25 PM GEAR CODING MACHINE OPERATOR Narrative [facility] - 04/13/2024 3:47 PM GEAR CODING MACHINE OPERATOR HbA1c Interpretation: Normal: < 5.7% Pre-diabetes: 5.7-6.4% [...] certified method. Maged Mcdonnell LAB - CHEMISTRY ORDERABLES Holly lu Result [facility] [address] [place] [address] * (ABNORMAL) LIPID PROFILE (04/13/2024 3:21 PM GEAR CODING MACHINE OPERATOR) Cholesterol 173 <200 mg/dL 04/13/2024 3:48 PM GEAR CODING MACHINE OPERATOR [facility] Triglycerides 179(H) <150 mg/dL 04/13/2024 3:48 PM GEAR CODING MACHINE OPERATOR [facility] HDL Cholesterol 26(L) >40 mg/dL 3:48 PM GEAR CODING MACHINE OPERATOR [facility] LDL Calculated 111 <130 mg/dL 04/13/2024 3:48 PM GEAR CODING MACHINE OPERATOR [facility] VLDL Calculated 36(H) <=30 mg/dL 3:48 PM GEAR CODING MACHINE OPERATOR [facility] Chol HDL Ratio 6.7(H) <4.5 04/13/2024 3:48 PM GEAR CODING MACHINE OPERATOR [facility] LDL/HDL Ratio 4.3 <5.0 04/13/2024 3:48 PM GEAR CODING MACHINE OPERATOR [facility] Blood BLOOD SPECIMEN / Unknown Venipuncture / Unknown 04/13/2024 3:21 PM GEAR CODING MACHINE OPERATOR 04/13/2024 3:25 PM GEAR CODING MACHINE OPERATOR [facility] LAB - CHEMISTRY ORDERABLES Holly l Result Performing Organization Address [facility] Co de Phone Number [facility] [address] [place] [address] * TSH REFLEX FREE T4 (04/13/2024 3:21 PM GEAR CODING MACHINE OPERATOR) Pathologist [facility] TSH 3.335 0.350 - 4.940 uIU/mL 04/13/2024 4:06 PM [facility] Blood BLOOD SPECIMEN / Unknown Venipuncture / Unknown 04/13/2024 3:21 PM GEAR CODING MACHINE OPERATOR 04/13/2024 3:25 PM GEAR CODING MACHINE OPERATOR [facility] LAB - CHEMISTRY ORDERABLES Holly l Result [facility] [address] [place] [address] * (ABNORMAL) COMPREHENSIVE METABOLIC PANEL (04/13/2024 3:21 PM GEAR CODING MACHINE OPERATOR) Glucose 193(H) 70 - 99 mg/dL 04/13/2024 3:48 PM GEAR CODING MACHINE OPERATOR [facility] Sodium 140 136 - 145 mmol/L 04/13/2024 3:48 PM GEAR CODING MACHINE OPERATOR [facility] Potassium 3.4(L) 3.5 - 5.1 mmol/L 04/13/2024 3:48 PM [facility] Chloride 104 98 - 107 mmol/L 04/13/2024 3:48 PM [facility] CO2 26 22 - 29 mmol/L 04/13/2024 3:48 PM [facility] Calcium 9.6 8.4 - 10.4 mg/dL 04/13/2024 3:48 PM [facility] Anion Gap 10 6 - 16 mmol/L 04/13/2024 3:48 PM [facility] BUN 21 7 - 26 mg/dL 04/13/2024 3:48 PM [facility] Creatinine 1.51(H) 0.72 - 1.25 mg/dL 04/13/2024 3:48 PM [facility] Alkaline Phosphatase 109 40 - 150 U/L 04/13/2024 3:48 PM [facility] ALT 14 0 - 55 U/L 04/13/2024 3:48 PM [facility] AST 13 5 - 34 U/L 04/13/2024 3:48 PM [facility] Protein Total 6.9 6.4 - 8.3 gm/dL 04/13/2024 3:48 PM [facility] Albumin 3.4 3.4 - 5.0 gm/dL 04/13/2024 3:48 PM [facility] Bilirubin Total 0.3 0.2 - 1.2 mg/dL 04/13/2024 3:48 PM [facility] eGFR by CKD-EPI 49(L) >=90 mL/min/1.7 3 m2 04/13/2024 3:48 PM [facility] Blood BLOOD SPECIMEN / Unknown Venipuncture / Unknown 04/13/2024 3:21 PM GEAR CODING MACHINE OPERATOR 04/13/2024 3:25 PM GEAR CODING MACHINE OPERATOR [facility] LAB - CHEMISTRY ORDERABLES Holly l Result [facility] [address] [place] [address] * (ABNORMAL) CBC WITH DIFFERENTIAL (04/13/2024 3:21 PM GEAR CODING MACHINE OPERATOR) WBC 11.8(H) 4.0 - 10.7 x10E9/L 04/13/2024 3:32 PM [facility] RBC Count 4.77 4.30 - 5.80 x10E12/L 04/13/2024 3:32 PM [facility] Hemoglobin 13.9 13.3 - 17.5 g/dL 04/13/2024 3:32 PM [facility] Hematocrit 44.8 38.7 - 51.1 % 04/13/2024 3:32 PM [facility] MCV 93.9 80.0 - 98.0 fL 04/13/2024 3:32 PM [facility] MCH 29.1 26.7 - 33.6 pg 04/13/2024 3:32 PM [facility] MCHC 31.0(L) 31.7 - 36.3 g/dL 04/13/2024 3:32 PM [facility] RDW-CV 13.2 11.3 - 14.8 % 04/13/2024 3:32 PM [facility] Platelet Count 253 150 - 420 x10E9/L 04/13/2024 3:32 PM [facility] MPV 10.2 7.8 - 11.4 fL 04/13/2024 3:32 PM [facility] Neutrophil % 79.0(H) 41.0 - 74.0 % 04/13/2024 3:32 PM [facility] Lymphocyte % 10.8(L) 17.0 - 47.0 % 04/13/2024 3:32 PM [facility] Monocyte % 7.3 3.0 - 11.0 % 04/13/2024 3:32 PM [facility] Eosinophil % 1.5 0.0 - 7.0 % 04/13/2024 3:32 PM [facility] Basophil % 0.3 0.0 - 1.6 % 04/13/2024 3:32 PM [facility] Immature Granulocytes % 1.1(H) 0.0 - 1.0 % 04/13/2024 3:32 PM [facility] Neutrophil Absolute 9.32(H) 1.60 - 7.50 x10E9/L 04/13/2024 3:32 PM [facility] Lymphocyte Absolute 1.27 1.00 - 4.40 x10E9/L 04/13/2024 3:32 PM GEAR CODING MACHINE OPERATOR [facility] Monocyte Absolute 0.86 0.15 - 1.00 x10E9/L 04/13/2024 3:32 PM GEAR CODING MACHINE OPERATOR [facility] Eosinophil Absolute 0.18 0.00 - 0.60 x10E9/L 04/13/2024 3:32 PM GEAR CODING MACHINE OPERATOR [facility] Basophil Absolute 0.04 0.00 - 0.13 x10E9/L 04/13/2024 3:32 PM GEAR CODING MACHINE OPERATOR [facility] Blood BLOOD SPECIMEN / Unknown 04/13/2024 3:21 PM GEAR CODING MACHINE OPERATOR 04/13/2024 3:25 PM GEAR CODING MACHINE OPERATOR Maged Mcdonnell LAB - HEMATOLOGY ORDERABLES Fin al Result Performing Organization Address City/State/[facility] Co de Phone Number [facility] [address] [place], [place] [id number] documented in this encounter Visit Diagnoses Not on filedocumented in this encounter Care Teams Aircraft Maintenance Instructor Relationship Specialty Start Date End Date Carlos Moran MD PCP - General Internal Medicine 04/24/17 12/19/24 Kim [address]av[address]z [address] [place] [address] PCP - General It Portfolio Manager 12/20/24 documented as of this encounter
--- OUTSIDE RECORDS SUMMARY | 2025-01-18 14:54 | XMS_ITS | Encounter Summary ---
Author Organization [facility] Address [address] [place] [address] Phone Care Team Providers Care Hair Colorist Name Role Phone Mark De Los Santos MD Unavailable Unavailable Rand Tsang MD Unavailable [phone] Carlos Moran MD Primary Care Provider [phone] Sohail Gould MD Primary Care Provider [phone] Vicki Salmeron APRN Primary Care Provider [phone] Kim Benavidez APRN, [facility] Primary Care Provider + Reason for Visit * Reason Comments Medication Refill Encounter Details Date Type Department Care Team (Late st Contact Info) Description 01/26/2021 Refill [facility] - Primary Care - [place] [address] [place] [address] Carlos Moran MD [address] [place], [place] [id number] Medication Refill Social History Tobacco Use Types [...] Office Visit [facility] - Family [facility] [address] [place] [address] Kim Benavidez APRN, CATTLE SORTER [address] [place] [address] documented as of this encounter Visit Diagnoses Not on filedocumented in this encounter Additional Health Concerns Assessment Noted Time PHQ-9 Depression Total Score: 0 07/13/19 20 10:00 AM CDT documented as of this encounter Care Teams Hair Colorist Relationship Specialty Start Date End Date Carlos Moran MD [address] [place] [address] PCP - General Internal Medicine 10/07/20 08/19/21 Sohail Gould MD [address] [place], [place] [address] [address] PCP - General Family Medicine 08/20/21 08/15/24 Vicki Salmeron APRN [address] [place], [place] [address] [address] PCP - General Advanced Practice Nurse 08/16/24 Kim Benavidez APRN, CATTLE SORTER [address] [place] [address] PCP - General Advanced Practice Nurse 09/28/24 Mark De Los Santos MD Consulting Physician Urology 09/05/15 Rand Tsang MD Consulting Physician Dermatopathology 01/16/18 documented as of this encounter
--- OUTSIDE RECORDS SUMMARY | 2025-01-18 14:54 | XMS_ITS | Encounter Summary ---
Author Organization [facility] Healthcare Address [address] [place] [address] Care Team Providers Care Stonehand Name Role Phone Nicolas Jung MD Unavailable [phone] Louie Lomeli MD Unavailable [phone] Melchor Woodard MD Primary Care Provider [phone] Jairo Sparrow MD Unavailable [phone] Encounter Details Date Type Department Care Team (Late st Contact Info) Description 08/09/2024 Documentation [facility] Case Management [address] [place] [address] Rodriguez Goldstein RN Social History Tobacco Use [...] materials from doctor or pharmacy Sometimes 01/17/2024 [facility] Utilities Answer Date Recorded In the [...] often do you attend chur ch or jewish services? Never 07/31/2024 Do you belong to any clubs o r organizations such as caodaism groups, unions, fraternal or athletic groups, or [...] or slept in a jail (including now)? No 08/29/2023 Housing Stability Vital Sign Answer Víctor e Recorded In the last 12 months, was t here a time when you were not able to pay the mortgage or rent on time? No 07/31/2024 In the past 12 months, how m any times have you moved where you were living? 1 07/31/2024 At any time in the past 12 m [facility], were you homeless or living in a jail (including now)? 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 Gender Identity Not on file Sexual Orientation Not on file documented as of this encounter Plan of Treatment Not on file documented as of this encounter Visit Diagnoses Not on filedocumented in this encounter Care Teams Stonehand Relationship Specialty Start Date End Date Melchor Woodard MD PCP - General Family Practice 07/30/22 Nicolas Jung MD Surgeon Orthopedic Surgery 08/05/21 Louie Lomeli MD Consulting Physician Cardiology 12/23/21 Jairo Sparrow MD [address] [facility] [address] [place] [address] Consulting Physician Neurology 12/14/22 documented as of this encounter
--- OUTSIDE RECORDS SUMMARY | 2025-01-18 14:54 | XMS_ITS | Clinical Summary ---
Author Organization [facility] [place] [facility] Address [address] [facility] [address] [place] [address] Care Team Providers Care Head Of Geography Name Role Phone Nicolas Jung MD Unavailable [phone] Louie Lomeli MD Unavailable [phone] Melchor Woodard MD Primary Care Provider [phone] Jairo Sparrow MD Unavailable [phone] Allergies Active Allergy Reactions Criticality Noted Date Comments Ceftriaxone Nausea only Low 09/23/2021 Rvmiddy-Lgb-Ehn Reductase Inhibitors Other (See comments) Low 01/26/2018 Generalized pain Medications losartan (COZAAR) 25 mg tablet Take 1 tablet (25 mg total) by mouth daily 3 Active levothyroxine (SYNTHROID) 50 mcg tablet Take 1 tablet (50 mcg total) by mouth cat dog or other pet groomer before breakfast Active aspirin 81 mg enteric coated tablet Take 1 tablet (81 mg total) by mouth daily Not sure if he takes 30 tablet 11 4 Active gabapentin (NEURONTIN) 100 mg capsuleIndicati ons:Diabetic [...] 3 doses total 90 tablet 1 4 Active amLODIPine (NORVASC) 10 mg tablet TAKE 1 TABLET (10 MG TOTAL) BY MOUTH DAILY 90 tablet 3 4 Active meclizine (ANTIVERT) 12.5 mg tablet Take 1 tablet (12.5 mg total) by mouth 3 (three) times a day as needed for dizziness 30 tablet 4 Active diclofenac sodium (VOLTAREN) 1 % gel Apply 2 g topically 4 (four) times a day 30 g 1 4 Active meloxicam (MOBIC) 7.5 mg tablet Take 1 tablet (7.5 mg total) by mouth 2 (two) times a day with meals for 14 days 28 tablet 4 Active ezetimibe (ZETIA) 10 mg tabletIndicatio ns:hyperlipidem ia TAKE 1 TABLET (10 MG TOTAL) BY MOUTH DAILY 30 tablet 11 5 026 Active empagliflozin (JARDIANCE) 25 mg tabletIndicatio ns:type 2 diabetes mellitus Take 1 tablet (25 mg total) by mouth daily Active oxyBUTYnin XL (DITROPAN-XL) 10 mg 24 hr tablet Take 1 tablet (10 mg total) by mouth daily Active vibegron (Gemtesa) 75 mg tablet Take 75 mg by mouth daily Active triamcinolone (KENALOG) 0.025 % cream 5 Active HYDROcodone-eve taminophen (NORCO) 7.5-325 mg per tablet Take 1 tablet by mouth every 4 (four) hours as needed for pain 5 Active metoprolol XL (TOPROL-XL) 25 mg extended release tablet Take 1 tablet (25 mg total) by mouth daily 30 tablet 11 5 Active calcium carbonate-vitam in D3 1,250mg (500mg elemental) - 5 mcg (200 units) per tablet Take 1 tablet by mouth daily 30 tablet 1 5 026 Active famotidine (PEPCID) 20 mg tablet Take 1 tablet (20 mg total) by mouth daily 30 tablet 1 5 026 Active predniSONE (DELTASONE) 5 mg tabletIndicatio ns:Gouty arthritis of left foot Take 1 tablet (5 mg) by mouth as directed 3 p.o. daily for 5 days then 2 p.o. daily for 5 days then 1 p.o. daily for 5 days. Collaborating physician Jordan Villanueva MD 30 tablet 5 Active isosorbide mononitrate ER (IMDUR) 30 mg 24 hr tablet Take 1 tablet (30 mg total) by mouth daily Patient needs to call for appointment before any more refills will be given 30 tablet 5 Active traMADoL (ULTRAM) 50 mg tabletIndicatio ns:Gouty arthritis of left foot Take 1 tablet (50 mg total) by mouth every 8 (eight) hours as needed for pain P.r.n. pain not relieved by prednisone alone. Take 500 mg of acetaminophen with each dose. Take with food. Collaborating physician Jordan Villanueva MD 15 tablet 5 Active clopidogreL (PLAVIX) 75 mg tablet Take 1 tablet (75 mg total) by mouth daily NO MORE REFILLS WILL BE GIVEN IF APPOINTMENT IS NOT MADE AND KEPT 60 tablet 5 Active Active Problems Problem Noted Date Diagnosed [...] 06/01/2022 Assessment & Plan (06/01/2022 3:29 PM FIBER PICKER): Worsening, patient reports symptoms are worse 1st thing in the morning, has to clean eyes before can open; fewer symptoms throughout the day; most consistent with allergic conjunctivitis Start azelastine eyedrops Diabetic neuropathy, type II diabetes mellitus 0 05/27/2022 LALITO (acute kidney injury) 03/10/2022 Obesity (BMI 30-39.9) 03/10/2022 Other chest pain 03/09/2022 Assessment & Plan (06/01/2022 3:28 PM FIBER PICKER): Continues to have episodes of chest pain, started in nature; can radiate to right-side of chest Patient reports some relief with ASA; has nitroglycerin Will continue to monitor; if negative cardio workup, consider esophageal spasms of source of pain Assessment & Plan (04/06/2022 11:47 AM FIBER PICKER): Reports pressure-like chest pain today, worsening fatigue [...] (12/29/2021): Added automatically from request for surgery [id number] Leukocytosis 12/19/2021 UTI (urinary tract infection) 12/19/2021 Coronary artery disease 12/18/2021 Overview (12/18/2021): Added automatically from request for surgery [id number] Assessment & Plan (03/07/2022 9:41 AM FIBER PICKER): Not well controlled, patient had stopped taking all medications, had elevated blood pressures today Encouraged patient to continue medications as prescribed Continue Brilinta 90 mg b.i.d., Zetia 10 mg daily Hypertensive crisis 12/16/2021 Assessment & Plan (12/17/2021 12:13 PM CDT): Present on admission, received Labetalol iv, currently resolved NSTEMI (non-ST elevated myocardial infarction) 0 12/16/2021 Overview (12/17/2021): Added automatically from request for surgery [id number] Assessment & Plan (01/10/2022 9:21 PM CDT): [...] Nasal saline spray (Simply saline, Little Remedies, [place], [place]) 2 second sprays or 2 squeezes into [...] (11/18/2020): Added automatically from request for surgery [id number] Assessment & Plan (03/20/2021 4:30 PM FIBER PICKER): Stable, patient waiting on improved A1c for [...] (11/18/2020): Added automatically from request for surgery [id number] Scar of vermilion border of upper lip 07/04/2020 Overview (07/04/2020): Referral to plastic surgery for evaluation and possible affects scar tissue Cicatrix 07/04/2020 Tension headache 06/30/2020 Assessment & Plan (06/25/2021 10:33 AM FIBER PICKER): Patient has recurrent left-sided tension headaches; likely secondary to pressure on muscles from lipoma Assessment & Plan (06/09/2021 1:59 PM FIBER PICKER): Patient has headache for the last 4-6 [...] nostril Assessment & Plan (06/30/2020 12:31 PM FIBER PICKER): Patient has severe left sided headache; reports worsened with looking down or leaning back in bed; may be related to sinuses vs tension type headache -given congestion may consider sinus pressure and will refer to ENT Chronic midline low back pain without sciatica 0 06/30/2020 Assessment & Plan (06/30/2020 12:33 PM FIBER PICKER): Not well controlled; likely worsened due to poor core strength; encouraged weight loss to reduce strain on lower back (has severe central adiposity) Will give patient core exercises to strengthen low back and abodmen Lipoma of neck 06/25/2020 Assessment & Plan (06/25/2021 10:32 AM FIBER PICKER): Not well controlled, patient has left-sided tension style headaches, S with noted changing position of head due to size of lipoma Patient benefit from surgical removal to help improve overall posture as well as potentially improved tension headaches Assessment & Plan (05/14/2021 1:29 PM FIBER PICKER): Patient has large lipoma on back left-sided neck; reports left-sided headaches, which may be contributed by lipoma putting pressure on muscles sugar causing tension headaches Referral to Plastic surgery for removal Assessment & Plan (03/20/2021 4:29 PM FIBER PICKER): Stable, Impacts patient ability to turn had; will continue monitor refer to surgery when appropriate Primary osteoarthritis of left knee 05/08/2020 Assessment & Plan (11/17/2021 3:53 PM CDT): Continues to have significant pain, has some symptom improvement, but limited range of motion and pain with movement Recent steroid injection Follow-up with orthopedics Assessment & Plan (04/21/2021 2:52 PM FIBER PICKER): Stable, continues with physical therapy which is [...] monitor Assessment & Plan (05/14/2021 1:29 PM FIBER PICKER): Improving, patient has walked about 12 lb since last visit; encouraged continued dietary changes, decreasing in take through portion control as well as lowering carbohydrate intake Encourage daily activity of 30 minutes of moderate intensity aerobic exercise daily Assessment & Plan (03/20/2021 4:29 PM FIBER PICKER): Weight is stable, no significant change; patient [...] week Assessment & Plan (05/05/2020 3:33 PM FIBER PICKER): Not well controlled, patient reports weight loss [...] daily Assessment & Plan (06/25/2021 10:31 AM FIBER PICKER): Stable, unclear control, patient reports inconsistent medications use Continue levothyroxine 50 mcg daily, check TSH today Assessment & Plan (04/21/2021 2:52 PM FIBER PICKER): Stable, well controlled; continue levothyroxine 50 mcg daily Assessment & Plan (03/20/2021 4:28 PM FIBER PICKER): Stable, well controlled; continue levothyroxine 50 mcg daily Assessment & Plan (09/24/2020 3:00 PM CDT): Recheck TSH today as previous TSH was mildly elevated, is still elevated will adjust levothyroxine given patient has complaints of generalized fatigue Assessment & Plan (06/16/2020 9:09 AM FIBER PICKER): Will recheck thyroid now that has been on medication for ~6 weeks Assessment & Plan (05/05/2020 3:36 PM FIBER PICKER): Mild elevation of TSH, patient has multiple symptoms including inability to lose weight, chronic fatigue and chronic tiredness Will start at low dose levothyroxine 25 mcg, will recheck TSH in approximately 6 weeks Arthritis 03/24/2020 DM2 (diabetes mellitus, type 2) 03/24/2020 Assessment & Plan (06/01/2022 3:30 PM FIBER PICKER): Not well controlled, A1c has always been [...] diet Assessment & Plan (06/25/2021 10:31 AM FIBER PICKER): Stable, improving; patient A1c has been down trending to 7.5 last time, recheck A1c today Continue metformin XR 1000 mg daily Assessment & Plan (05/14/2021 1:28 PM FIBER PICKER): Stable, improving; last A1c was decreasing to 7.5 Encouraged patient to continue with low-carbohydrate diet; encourage education dietary changes as well as regular exercise Continue metformin 1000 mg daily Assessment & Plan (04/21/2021 2:52 PM FIBER PICKER): Stable, improving; patient reports he has been working on decreasing carbohydrates Has a decreased appetite well on Rybelsuswith minimal side effects Continue metformin 1000 mg daily with breakfast, Rybelsus 7 mg prior to breakfast Continue to monitor encourage continued decreased carbohydrate diet Recheck labs at follow-up appointment Assessment & Plan (03/20/2021 4:28 PM FIBER PICKER): Stable, well controlled, improving Patient reports improved [...] diet Assessment & Plan (05/05/2020 3:32 PM FIBER PICKER): Not well controlled, A1c is 7.7 today [...] strength Assessment & Plan (03/26/2020 12:24 PM FIBER PICKER): Will check blood sugars and A1c to evaluate for control of diabetes on metformin Hyperlipidemia 03/24/2020 Assessment & Plan (12/17/2021 12:16 PM CDT): Pt is not on a statin due to intolerance LDL is 107. Started on Zetia per cardiology. Assessment & Plan (10/13/2021 2:34 PM CDT): Not well controlled, encouraged continued dietary changes and weight loss Assessment & Plan (05/14/2021 1:28 PM FIBER PICKER): Not well controlled, patient cannot tolerate statins; encouraged dietary changes order reduce cholesterol through low-fat high-fiber diet Assessment & Plan (05/05/2020 3:35 PM FIBER PICKER): Poorly controlled patient has elevated total and LDL cholesterol with knee depressed HDL cholesterol Triglycerides are also elevated at 254 Patient is unable to tolerate statin therapy due to muscular pain of thigh muscles Will encouraged diet and exercise as ways to maintain and modify cholesterol level Hypertension, essential 03/24/2020 Assessment & Plan (06/01/2022 3:30 PM FIBER PICKER): Stable, improving; blood pressure today in clinic was normal; patient reports home measurements are improving Continue amlodipine 10 mg daily, hydralazine 25 mg b.i.d., metoprolol 100 mg daily Losartan was previously on medication list, but not part of pharmacy was Given blood pressures appropriate, will continue to monitor, can rehab losartan if blood pressure increases Assessment & Plan (04/06/2022 11:47 AM FIBER PICKER): Stable, improving; most recent blood pressure was at target Continue losartan 100 mg daily, metoprolol 100 mg daily, amlodipine 10 mg daily Assessment & Plan (03/07/2022 9:40 AM FIBER PICKER): Not well controlled; patient reports that he [...] daily Assessment & Plan (06/25/2021 10:30 AM FIBER PICKER): Not well controlled; blood pressure is elevated this morning prior to surgery, elevated again in office Given blood pressure was just normal on 06/09/2021, will increase lisinopril to 40 mg daily Encouraged patient to consistently take medications, with no missed or skipped doses Assessment & Plan (05/14/2021 1:27 PM FIBER PICKER): Not well controlled, blood pressure remains elevated; patient has been inconsistent with taking medications Will continue lisinopril 20 mg, follow-up at next appointment; if blood pressure still is elevated will adjust medication Assessment & Plan (03/20/2021 4:27 PM FIBER PICKER): Stable well controlled; blood pressure a target; [...] needed Assessment & Plan (05/05/2020 3:34 PM FIBER PICKER): Well controlled, patient's blood pressure is at target today Will continue with current therapies and continue to monitor patient Assessment & Plan (03/26/2020 12:24 PM FIBER PICKER): Stable well controlled, continue present management Post-traumatic [...] arthroscopy Assessment & Plan (06/16/2020 9:09 AM FIBER PICKER): Not well controlled, had relief with cortisone injection, but now has worsening pain; relief last for about 3-4 weeks -has some instability of patella, able to 'adjust' patella to relieve pain and improve ROM Assessment & Plan (05/05/2020 3:34 PM FIBER PICKER): Stable, not controlled Patient is not able to consistently place weight on the Patient to follow-up with orthopedics further evaluation, based on recommendations may refer to physical therapy Assessment & Plan (03/26/2020 12:24 PM FIBER PICKER): Will start treatment with diclofenac cream, and use of the triamcinolone as necessary If needed will refer to physical therapy for further improvement in pain Polyneuropathy associated with underlying diseas e ([facility]) 10/24/2019 Assessment & Plan (04/06/2022 11:44 AM FIBER PICKER): Continues to have numbness and weakness in bilateral legs; patient scheduled nerve conduction study Continue gabapentin 100 mg TID Continue with exercise, and strength training; noted to have decreased strength in hip flexors; normal with knee -if EMG is normal, consider CK or evaluation of polymyalgia or polymysitis Assessment & Plan (05/05/2020 3:34 PM FIBER PICKER): Patient has episodes of decreased balance due [...] management Assessment & Plan (06/25/2021 10:32 AM FIBER PICKER): Not well controlled, patient continues to have frequent nighttime urination; encouraged patient to continue follow-up with Urology and reschedule surgery Continue myrbetriq 50 mg daily Assessment & Plan (03/20/2021 4:30 PM FIBER PICKER): Patient continues to have increased urinary frequency, [...] Encounters Date Type Department Care Team Description 01/02/2025 Telephone [facility] [place] [facility] [address] [place] [address] [address] [place] [address] Jairo Sparrow MD 12/24/2024 Telephone [facility] [place] [facility] [address] [place] [address] [address] [place] [address] Tere Hancock MA 12/06/2024 [facility] [address] [address] Eveline Domínguez RN 11/13/2024 [facility] [address] [address] Kristen Pruitt LPN from Last 3 Months Immunizations Immunization Administration [...] Comments Hypertension Hypertension Type 2 diabetes mellitus Hypothyroidism CAD (coronary artery disease) Arthritis Stroke [...] materials from doctor or pharmacy Sometimes 01/17/2024 [facility] Utilities Answer Date Recorded In the past 12 months has e [employer], gas, oil, or water [employer] threatened to shut off services in your [...] often do you attend chur ch or taoist services? Never 07/31/2024 Do you belong to [...] any time in the past 12 m [facility], were you homeless or living in [...] on file Legal Sex Male 12:23 AM FIBER PICKER Gender Identity Not on file Sexual Orientation [...] Colon Cancer Screening-DNA Stool 12/01/2023 12/01/19 21 Depression Screening 08/27/2024 08/28/2023, 05/27/2022, 03/09/2022, Additional history exists Hemoglobin A1C 10/12/2024 04/13/2024, 08/02, 06/10/2023, Additional history exists Covid-19 Vaccine (2024-2 6 season) 2024 09/23/2021, 03/25/2021, 07/08/2020, Additional history exists Influenza Vaccine (#1) 2024 , 03/19/2020, 03/18/2020, Additional history exists Fall Risk Assessment 08/02/2025 08/02/2024, 01/05/2022, 10/07/2021, Additional history exists eGFR 09/26/2025 09/26/2024, 07/31, 08/02/2024, Additional history exists Lipid Panel 10/08/2025 10/08/2024, 04/01, 08/28/2023, Additional history exists DTaP/Tdap/Td Vaccine (3 - Td or Tdap) 02/12/2030 02/13/2020, 12/11/2015 Pneumococcal vaccine 65+ Completed 09/27/2017, 03/02 Zoster Vaccine Completed 03/19/2020, /11/2018, 03/27/2018 Prostate Cancer Screening-PSA Discontinued 10/28/2021 Medical Devices Implanted Type Area Metal Dresser Device Identifier Shelf Expiration Date Model / Serial / Lot [employer] Daysi Synergy Xd Monorail 3.5mm 12mm 144cm Delivery System 1 Access [id number] - [id number] Implanted:Qty: 1 on 08/29/2023 by Louie Lomeli MD at [facility] Stent [employer] Days[employer] 10/19/2024 [id number] / / [id number] [place] [employer] Stent Coronary De Rx Cocr Xience Skypoint [id number] - [id number] Implanted:Qty: 1 on 12/17/2021 by Louie Lomeli MD at [facility] Vascular 08/24/2023 [id number] [employer] Stent Coronary De Rx Cocr Xience Skypoint [id number] - [id number] Implanted:Qty: 1 on 12/17/2021 by Louie Lomeli MD at [facility] Vascular 08/28/2023 [id number] / / [id number] [email or web address] Daysi Synergy 3mm 16mm 144cm Radiopaque 1 Access Port Inflation Lumen [id number] - [id number] Implanted:Qty: 1 on 12/22/2021 by Louie Lomeli MD at [facility] [email or web address] Daysi 09/04/2022 [id number] / / [id number] Adype Angio-Seal Vip 6fr Closere Device [id number] - [id number] Implanted:Qty: 1 on 12/22/2021 by Louie Lomeli MD at [facility] [employer] 09/29/2022 [id number] / / [id number] Procedures Procedure Name Priority Date/Time Associated Diagnosis Comments EGFR STAT 09/26/2024 4:20 PM CDT HEMOGLOBIN A1C Routine 08/30/2023 2:23 [...] to Health Maintenance Results * (ABNORMAL) eGFR (09/26/2024 4:20 PM CDT) [...] Villanueva MD LAB BLOOD ORDERABLES Final Result Performing Organization Address [facility] Co de Phone Number JULIETA GUERRERO (ANTIMONY) 1 [facility] [place] [address] * (ABNORMAL) Hemoglobin A1c (08/30/2023 2:23 AM CDT) Hgb A1C 6.3(H) 4.0 - 5.6 % Estimated Average Glucose 134 mg/dL JULIETA YOLANDA (ANTIMONY) Comment: The ADA recommends reporting an estimated Average Glucose (eAG) with all Hemoglobin A1c results using the equation derived from a study of 507 normal and diabetic adults. Minority populations were underrepresented and children were not included. (Diabetes Care 31:4135-7270, 2008). The eAG is not equivalent to a fasting glucose. Blood 08/30/2023 2:23 AM CDT 08/30/2023 12:50 PM CDT us Destiny Devi SPOUT POSITIONER LAB BLOOD ORDERABLES Final R esult Performing Organization Address City/[facility]/ZIP Co de Phone Number JULIETA GUERRERO (ANTIMONY) [address] [facility] [employer] [place] [address] * (ABNORMAL) Lipid panel (08/28/2023 8:27 PM [...] ORDERABLES Final Re sult JULIETA CUNHA) 1 [facility] [place] [address] * PSA screen (10/28/2021 2:47 PM CDT) [...] data last revised 21. Testing performed by: [facility], [address] [place], [place] [address], [place] [address] Blood 10/28/2021 2:47 PM CDT 10/28/2021 7:50 PM CDT Sohail Gould MD LAB BLOOD ORDERABLES Holly l Result Performing Organization Address City/[facility]/ZIP Co de Phone Number JULIETA GUERRERO (ROSA ELENA) 1 [place] [address] * (ABNORMAL) Albumin Creatinine Ratio, Urine (10/28/2021 2:47 PM CDT) Albumin Ur 713.6 mg/L [facility] (ROSA ELENA) Comment: Interpretive Data No reference range established. Current interpretive data was last revised 2018. Testing performed by: [facility], [address] [place] [address]., [address] Creatinine Ur 343.1 mg/dL [facility] (ROSA ELENA) Comment: Interpretive Data No reference range established. Current interpretive data was last revised 2018. Testing performed by: [facility], [address] [place] [address]., [address] Albumin Creatinine Ratio, Ur 208(H) 1 - 29 mg/g [facility] ([place]) Comment:Testing performed by : [address] [address] Urine 10/28/2021 2:47 PM CDT 10/28/2021 9:10 PM CDT Sohail Gould MD LAB URINE ORDERABLES Holly l Result Performing Organization Address [facility]/ZIP Co de Phone Number JULIETA GUERRERO (ROSA ELENA) [address] [place] [address] * Stool DNA - Cologuard (11/30/2020) Scribed Stool DNA - Cologuard Negative EXTERNAL LAB Stool Historical Provider LAB BODY FLUIDS AND STOOL S ORDERABLES Final Result EXTERNAL LAB from Last 3 Months or Most Recently Relevant to Health Maintenance Insurance [employer]PA [facility] MEDICARE ADVANTAGE [employer]PA [facility] MEDICARE ADVANTAGE IDPA Advance Directives For more information, please contact: [phone] * Full Code (Latest Code Status on [...] 8:46 PM 08/29/2023 4:46 PM Care Teams Head Of Geography Relationship Specialty Start Date End Date Melchor Woodard MD PCP - General Family Practice 07/30/22 Nicolas Jung MD Surgeon Orthopedic Surgery 08/05/21 Louie Lomeli MD Consulting Physician Cardiology 12/23/21 Jairo Sparrow MD [address] [place] [address] [place] [address] Consulting Physician Neurology 12/14/22
--- OUTSIDE RECORDS SUMMARY | 2025-01-18 14:54 | XMS_ITS | Encounter Summary ---
Author Organization [facility] Address [address] [facility] [place] [address] Phone Care Team Providers Care Towel Folder Name Role Phone Mark De Los Santos MD Unavailable Unavailable Rand Tsang MD Unavailable Kim Benavidez PURCHASING MANAGER/SALES, PLAYERS CLUB REPRESENTATIVE Primary Care Provider + Reason for Visit * Reason Onset Date Comments Advice Only 10/08/2024 Dizziness 10/08/2024 Encounter Details Date Type Department Care Team (Late st Contact Info) Description 10/08/2024 [facility] [address] [place] [address] Kim Benavidez, PURCHASING MANAGER/SALES, PLAYERS CLUB REPRESENTATIVE [address] [place] [address] Advice Only; Dizziness Social History Tobacco Use [...] Description 02/19/2025 1:45 PM CDT Office Visit [facility] [address] [place] [address] Kim Benavidez, PURCHASING MANAGER/SALES, PLAYERS CLUB REPRESENTATIVE [address] [place] [address] documented as of this encounter Visit Diagnoses Not on filedocumented in this encounter Additional Health Concerns Assessment Noted Time PHQ-9 Depression Total Score: 0 09/29/19 25 11:18 AM CDT documented as of this encounter Care Teams Towel Folder Relationship Specialty Start Date End Date Kim Benavidez, PURCHASING MANAGER/SALES, PLAYERS CLUB REPRESENTATIVE [address] [place] [address] PCP - General Advanced Practice Nurse 09/28/24 Mark De Los Santos MD Consulting Physician Urology 09/05/15 Rand Tsang MD Consulting Physician Dermatopathology 01/16/18 documented as of this encounter
--- OUTSIDE RECORDS SUMMARY | 2025-01-18 14:54 | XMS_ITS | Clinical Summary ---
Author Organization [facility] [employer] Address [address] [facility] [place] [address] Care Team Providers Care Clinical Data Abstractor Name Role Phone Pramod Kim Barker Primary Care Provider [phone] Source Comments [facility] [employer],non-owned Affiliates and Associated Physician Practices is amultiple site organization consisting of ambulatory clinics and hospital sitesin [place], [place], [place] and [place]. This disclosure is being madepursuant to the Care Everywhere program and may not contain all information available regarding this patient. Last updated 18.Critical Links [employer] Allergies No known active allergies Medications * [...] Encounters Date Type Department Care Team Description 12/20/2024 10:46 AM CDT - 12/20/2024 11:59 PM CDT Hospital Encounter [facility] [place] [id number] Lisa Singh MD Discharge Disposition: Home or Self Care from Last 3 Months Family History Medical [...] on file Legal Sex Male 11:59 AM CAMPUS MANAGER Gender Identity Not on file Sexual Orientation Not on file Last Filed Vital Signs Vital Sign Reading Time Taken Comments Blood Pressure 136/78 04/24/2017 10:32 AM CAMPUS MANAGER Pulse 78 04/24/2017 10:32 AM CAMPUS MANAGER Temperature 36.8 C (98.2 F) 04/24/2017 10:32 AM CAMPUS MANAGER Respiratory Rate - - Oxygen Saturation - - Inhaled Oxygen Concentration - - Weight 104.8 kg (231 lb) 04/24/2017 10:32 AM CAMPUS MANAGER Height 177.8 cm (5' 10) 04/24/2017 10:32 AM CAMPUS MANAGER Body Mass Index 33.15 04/24/2017 10:32 AM CAMPUS MANAGER Plan of Treatment Health Maintenance Due Date Last Done Comments COLOGUARD (AGES 45-75) - COLON CA SCREENING 1950 COLON MONITORING 1950 COLONOSCOPY - COLON CA SCREENING 1950 CT COLONOGRAPHY - COLON CA SCREENING 1950 Colorectal Cancer Screening 1950 FIT - COLON CA SCREENING 1950 FLEX SIG - COLON CA SCREENING 1950 DTAP/TDAP/TD VACCINES (1 - Tdap) 1971 PNEUMOCOCCAL VACCINE 50+ (1 of 1 - PCV) 2002 ZOSTER VACCINE (1 of 2) 2002 AAA SCREENING 2017 DEPRESSION SCREENING 05/02/2024 MEDICARE AWV CALENDAR YEAR 2024 COVID-19 VACCINE ( season) 2024 02/17/2022, 09/23/2021, 03/25/2021, Additional history exists INFLUENZA VACCINE (#1) 2024 , 03/19/2020, 03/18/2020, Additional history exists Respiratory Syncytial Virus (RSV) Vaccine Pt: or over 60 yrs (1 - 1-dose 75+ series) 2027 LIPID TESTING 10/08/2029 10/08/2024, 04/01, 04/11/2018 HEPATITIS C SCREENING Completed 10/08/2024 HEPATITIS B VACCINE Aged Out No longe [...] Procedure Name Priority Date/Time Associated Diagnosis Comments TILT TABLE TEST WITHOUT AUTONOMIC STUDIES Routine 12/20/2024 11:59 PM CDT Dizziness and giddiness LIPID PROFILE STAT 04/13/2024 3:21 PM CAMPUS MANAGER from Last 3 Months or Most Recently Relevant to Health Maintenance Results * TILT TABLE TEST WITHOUT AUTONOMIC STUDIES (12/20/2024 11:59 PM CDT) Narrative Lisa Singh MD - 12/20/2024 11:59 PM CDT Lisa Singh MD 12/25/2024 3:31 PM Autonomic Laboratory Studies November, 12:47:02 PM Testing Facility [facility] Health, Neuroscience [facility] [address] [place] [id number] Reason for Referral: Dizziness&Giddiness Patient Profile Visit Remarks: 74yoMale referred for Dizziness and Giddiness. Started around 2 yrs ago. Sx - Dizziness, Lightheadedness, SOB, Lack of sweating, Legs get cold from the knees down at night, Vision blurry with quick movement, Tingling in fingers, Increase in fatigue, Weakness in Arms&Legs, Neck cracks. Quick standing, Prolong standing, Heat can trigger sx's. Sitting, Hydration, Eating can improve sx's. Usually wake up without dizziness, after shower the dizziness starts. Meds - Amlodipine, Aspiring, Plavix, Jardiance, Ezetimibe, Lasix, Gabapentin, Hydrocodone, Levothyroxine, Losartan, Meclizine, Meloxicam, Metformin, Metoprolol, Nitroglycerin, Oxybutynin, Tramadol (none 24hrs). ID: [id number] Name: Jairo Camposy Referring: Jairo Sparrow M.D. Sex: Male Birthdate: 1950 Attending: Lisa Singh M.D. Height: 70 in Weight: 260 lbs Primary: Impression: TTT demonstrates episodic neurogenic orthostatic hypotension. There is no evidence of POTS or vasovagal syncope. Signature: Lisa Singh M.D. Director, Clinical Neurophysiology Time: 12/20/2024 11:24 AM Test Notes: Dizziness upon standing. Hand movement aritfact. 5-Dizziness still present. Feels like he could fall. 7- Double checking BP - 141/74 - Not a drop in BP. 11- bottom of feet pain. Still dizzy. 18-Left arm and feet going numb. 20-Feet pain level 4. 21- Double checking BP- 132/76. 23- Blood pooling in arms&legs, deeper red color. 29-Gettting tired. Turning head make dizziness worse. Pain level increasing to a 6. Test Tilt Test - Version Date 3 Food Manager: Messi Esqueda Analysis Tilt (ECG) Analysis - Version Date 3 us Jairo Sparrwo MD NEUROLOGY ORDERABLES Fi nal Result * (ABNORMAL) LIPID PROFILE (04/13/2024 3:21 PM CAMPUS MANAGER) Cholesterol 173 <200 mg/dL 04/13/2024 3:48 PM CAMPUS MANAGER [facility] Triglycerides 179(H) <150 mg/dL 04/13/2024 3:48 PM CAMPUS MANAGER [facility] HDL Cholesterol 26(L) >40 mg/dL 4 3:48 PM CAMPUS MANAGER [facility] LDL Calculated 111 <130 mg/dL 04/13/2024 3:48 PM CAMPUS MANAGER [facility] VLDL Calculated 36(H) <=30 mg/dL 3:48 PM CAMPUS MANAGER [facility] Chol HDL Ratio 6.7(H) <4.5 04/13/2024 3:48 PM CAMPUS MANAGER [facility] LDL/HDL Ratio 4.3 <5.0 04/13/2024 3:48 PM CAMPUS MANAGER [facility] Blood BLOOD SPECIMEN / Unknown Venipuncture / Unknown 04/13/2024 3:21 PM CAMPUS MANAGER 04/13/2024 3:25 PM CAMPUS MANAGER [facility] - CHEMISTRY ORDERABLES Holly l Result Performing Organization Address City/State/[facility] Co de Phone Number [facility] [address] [place], [place] [id number] from Last 3 Months or Most Recently Relevant to Health Maintenance Insurance MEDICARE [facility] MANAGED MEDICARE [facility] Care Teams Clinical Data Abstractor Relationship Specialty Start Date End Date Kim Benavidez [address] [place] [address] PCP - General Ferryboat Operator Cable 12/20/24
--- OUTSIDE RECORDS SUMMARY | 2025-01-18 14:54 | XMS_ITS | Encounter Summary ---
Author Organization [facility] Address [address] [facility] [place] [address] Phone Care Team Providers Care Artistic Associate Name Role Phone Mark De Los Santos MD Unavailable Unavailable Rand Tsang MD Unavailable [phone] Kim Benavidez MASTER MACHINIST, MANAGER LANGUAGE Primary Care Provider + Reason for Visit * Reason Onset Date Comments Gout 01/16/2025 Ankle Pain 01/16/2025 Encounter Details Date Type Department Care Team (Late st Contact Info) Description 01/16/2025 [facility] [address] [place] [address] Kim Benavidez, MASTER MACHINIST, MANAGER LANGUAGE [address] [place] [address] Gout; Ankle Pain Social History Tobacco Use Types Packs/Day Years [...] encounter Miscellaneous Notes * Telephone Encounter - Antonina Bowles RN - 01/18/2025 1:09 PM CDT Situation: Gout Background: Patient contacting PCP office. See below. Assessment: Patient calling again to see if MASTER MACHINIST has provided recommendation for gout. RN informed patient of recommendation from below, offered to schedule an appointment otherwise recommended going to Urgent Care or [facility]. Patient choosing to await provider response. Recommendation: Encounter already sent earlier today for provider to review and advise. * Telephone Encounter - Arlene Canales RN - 01/18/2025 11:54 AM CDT Pt called again and is refusing dispo. Message previously routed to PCP. * Telephone Encounter - Neisha Schofield RN - 01/17/2025 3:26 PM CDT Situation: Gout Background: Patient contacting PCP office. See Below. Assessment: Patient requesting provider recommendations, and to be called back once received. Recommendation: Please advise, thank you. Encounter routed to provider to notify. * Telephone Encounter - Rand Tang RN - 01/17/2025 11:10 AM CDT SITUATION: 74 y.o. with gout flare up BACKGROUND: Patient contacting PCP office. Per chart review, last office visit 01/09/25 with Briana Solis APRN ASSESSMENT: Symptom Description / Location: Gout flare up in left ankle Can not bare weight on ankle Patient has taken steroids in the past which has helped Patient called about this yesterday and pain has worsened today. Treatment / Response: None Pain ratin/10 RECOMMENDATION: Please advise and call patient with recommendations. Pharmacy verified. Caller understands recommendation, but refuses disposition of Go to Office or Video Visit Now and is requesting provider prescribe steroid pill or patient gets steroid injection. Care advice provided per triage guideline. Caller verbalized understanding. Encounter routed to provider high priority to notify. - Reason for Disposition: SEVERE pain (e.g., excruciating, unable to walk) and not improved after 2 hours of pain medicine . Protocols Used: Ankle Pain-A-OH See care advice and disposition for Guideline. First positive answer recorded, all responses to prior questions were negative. If symptoms increase, change or if new symptoms develop, call your health care provider or call back. Recommendations were based on caller information and is not a diagnosis. Verified and reviewed all triage information with caller. * Telephone Encounter - Amber Galvan RN - 01/17/2025 10:06 AM CDT Situation: gout flair Background:patient calling back Assessment:see below note, wanting recommendations/other medication to help with flair Recommendation:please advise * Telephone Encounter - Neisha Mclean RN - 01/16/2025 11:44 AM CDT Situation: Gout Flare Background: Jairo contacting PCP office. Assessment: Calling because his gout in his feet has been flaring up. Per patient, current medication is not controlling flare ups. Would like PCP recommendation for pain. Patient also following up on dermatology referral. Advised that the referral has been placed. Recommendation: Patient prefers phone call back with PCP recommendation. Encounter routed to provider to notify. * Telephone Encounter - Isela Celaya - 01/16/2025 11:41 AM CDT Symptom: Foot or Ankle Pain - Not From Injury Outcome: Transfer to marine chronometer assembler queue Reason: Trouble walking The caller accepted this outcome. documented in this encounter Plan of Treatment Upcoming Encounters Date Type Department Care Team (Late st Contact Info) Description 02/19/2025 1:45 PM CDT [facility] Visit [facility] Family [facility] [address] [place] [address] Kim Benavidez, MASTER MACHINIST, MANAGER LANGUAGE [address] [place] [address] documented as of this encounter Visit Diagnoses Not on filedocumented in this encounter Additional Health Concerns Assessment Noted Time PHQ-9 Depression Total Score: 0 09/29/19 11:18 AM CDT documented as of this encounter Care Teams Artistic Associate Relationship Specialty Start Date End Date Kim Benavidez, MASTER MACHINIST, MANAGER LANGUAGE [address] [place] [address] PCP - General Advanced Practice Nurse 09/28/24 Mark De Los Santos MD Consulting Physician Urology 09/05/15 Rand Tsang MD Consulting Physician Dermatopathology 01/16/18 documented as of this encounter
[2025-01-18 15:06] VITALS: BP 107/55; PULSE 67; RESP 18; TEMP 36.4; O2SAT 96
[2025-01-18 18:28] VITALS: BP 105/44; PULSE 56; RESP 17; O2SAT 98
--- NOTE | 2025-01-18 18:44 | ED.GENADULT ---
HPI - General Adult General Chief complaint: Extremity Injury, Lower Stated complaint: gout bilateral feet, cant walk Time Seen by Provider: 01/18/25 18:42 Source: patient Mode of arrival: ambulatory Limitations: no limitations History of Present Illness HPI narrative: 74 years old white male complaining of bilateral feet gout flare started few days ago. Patient report and able to get hold of his family physician. Patient usually gets shots in the feet and or steroid. Patient is diabetic. Patient on aspirin Plavix, no history of GI bleed. Patient denies any trauma, fever, chills, nausea, vomiting or urine. Pain in both feet mainly when he stand up and walk home. Similar to his previous history of gouty arthritis flare Related Data Home Medications ?Medication ?Instructions ?Recorded ?Confirmed ?Last Taken ?Type aspirin 81 mg chewable tablet 81 mg PO DAILY 07/28/22 11/01/24 10/31/24 History (Leroy Chewable Low Dose Aspirin) clopidogrel 75 mg tablet (Plavix) 75 mg PO DAILY 11/23/23 11/01/24 Unknown History ezetimibe 10 mg tablet (Zetia) 10 mg PO DAILY 11/23/23 11/01/24 10/31/24 History Allergies Allergy/AdvReac Type Severity Reaction Status Date / Time ceftriaxone (From Rocephin) Allergy Unknown Nausea Verified 11/27/24 08:44 Epiwoud-FVC-KqL Reductase Allergy Unknown Unknown Verified 11/27/24 08:44 Inhibitor Review of Systems Review of Systems: All systems reviewed & are unremarkable except as noted in HPI and below PMFSH Past Medical History Medical History 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 Heart disease Hypertension Mother No problems noted. Sibling Acute myocardial infarction Social History Social History Social History: Surrogate medical decision maker: Kandice Arceo, daughter ([phone]). Code status: Full code. Smoking packs per day: 1 Smoking cigarettes per day: 20.0 Smoking status: Former smoker Tobacco type: cigarettes Second hand tobacco smoke exposure: No Smoking end date: 11/13/86 Alcohol intake: never Substance use: never Substance use type: does not use Do You Feel Safe in your Home?: Yes Lack of Transportation: No Lack of Food: Never True Current Housing: I Have Housing Concerned About Future Housing: No Difficulty Paying Gas/Electric Bills: No Difficulty Paying for Meds: No Currently Unemployed: No Education: Trade/Vocational Certificate Difficulty w/ Childcare or Family Care: No Living arrangements: with family Occupation/Education: retired 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 Spiritual care concerns: No Exam Narrative: General appearance: Well-developed, well-nourished Skin: Normal color Head: Normocephalic, nontraumatic Eyes: Clear conjunctiva ENT: Oropharynx normal, ears normal, nose normal Neck: Supple, nontender Chest and respiratory: Airway patent, no respiratory distress, no accessory muscle use Heart: Regular rate/rhythm Abdomen: Soft, nontender, no organomegaly, quiet bowel sounds Vascular: Normal peripheral pulses, normal capillary refill. Musculoskeletal: Diffuse tenderness of the ankle and feet bilaterally mainly left 1, fall slightly swollen, no edema, no erythema, no wound no discharge Neurologic: Alert and oriented ?3, CLINICAL REVIEW NURSE is normal as tested, no gross motor deficit Course Vital Signs Vital signs: Vital Signs Temperature 36.4 C 01/18/25 15:06 Pulse Rate 67 01/18/25 15:06 Respiratory Rate 18 01/18/25 15:06 Blood Pressure 107/55 L 01/18/25 15:06 Pulse Oximetry 96 01/18/25 15:06 Temperature 36.4 C 01/18/25 15:06 Pulse Rate 56 L 01/18/25 18:28 Respiratory Rate 17 01/18/25 18:28 Blood Pressure 105/44 L 01/18/25 18:28 Pulse Oximetry 98 01/18/25 18:28 Medical Decision Making MDM Narrative Medical decision making narrative: History of diabetes, does not check his blood glucose on daily basis Currently on aspirin and Plavix. I believe discharge patient on indomethacin with Protonix will be less complicating compared to start patient on prednisone. Patient received 50 mg of indomethacin and 1 tablet of [place] prior to discharge. Vital Signs Vital Signs: Vital Signs Temperature 36.4 C 01/18/25 15:06 Pulse Rate 67 01/18/25 15:06 Respiratory Rate 18 01/18/25 15:06 Blood Pressure 107/55 L 01/18/25 15:06 Pulse Oximetry 96 01/18/25 15:06 Temperature 36.4 C 01/18/25 15:06 Pulse Rate 56 L 01/18/25 18:28 Respiratory Rate 17 01/18/25 18:28 Blood Pressure 105/44 L 01/18/25 18:28 Pulse Oximetry 98 01/18/25 18:28 Critical Care Time Critical Care Time Critical Care Time: No Discharge Plan Discharge Clinical Impression: Gout attack Patient Disposition: Home Condition: Stable Instructions: Gout (ED) Additional Instructions: Return if symptoms are worsening , call your family physician for appointment, take Tylenol as as needed for aches and pain, continue home medications. Patient Language: Luxembourgish Prescriptions: New indomethacin 50 mg capsule 50 mg PO TID Qty: 14 0RF Rx Instructions: administer with food or milk pantoprazole [Protonix] 40 mg tablet,delayed release (DR/EC) 40 mg PO QAM 14 Days Qty: 14 0RF No Action clopidogrel [Plavix] 75 mg tablet 75 mg PO DAILY ezetimibe [Zetia] 10 mg tablet 10 mg PO DAILY aspirin [Leroy Chewable Aspirin] 81 mg tablet,chewable 81 mg PO DAILY potassium chloride [K-Tab] 20 mEq tablet extended release 20 meq PO DAILY Qty: 3 0RF acetaminophen 500 mg Tablet 1,000 mg PO Q6H PRN (Reason: Mild Pain (1-3) Or Fever) Qty: 30 0RF allopurinol 100 mg tablet 50 mg PO DAILY Qty: 30 0RF amlodipine 10 mg Tablet 10 mg PO DAILY Qty: 30 0RF meclizine 12.5 mg tablet 12.5 mg PO DAILY PRN (Reason: dizziness) Qty: 30 0RF Gemtesa 75 mg tablet 75 mg PO DAILY Qty: 30 1RF gabapentin 100 mg capsule See Rx Instructions .ROUTE .COMPLEX Qty: 120 3RF Dose Instruction: TAKE ONE (1) CAPSULE BY MOUTH MORNING AND NOON, TAKE TWO (2) BY MOUTH NIGHTLY AT BEDTIME Rx Instructions: TAKE ONE (1) CAPSULE BY MOUTH MORNING AND NOON, TAKE TWO (2) BY MOUTH NIGHTLY AT BEDTIME metoprolol succinate 50 mg tablet extended release 24 hr See Rx Instructions .ROUTE .COMPLEX Qty: 90 1RF Dose Instruction: TAKE ONE (1) TABLET BY MOUTH DAILY Rx Instructions: TAKE ONE (1) TABLET BY MOUTH DAILY levothyroxine 50 mcg tablet See Rx Instructions .ROUTE .COMPLEX Qty: 90 1RF Dose Instruction: TAKE ONE (1) TABLET BY MOUTH DAILY Rx Instructions: TAKE ONE (1) TABLET BY MOUTH DAILY Jardiance 25 mg tablet See Rx Instructions .ROUTE .COMPLEX Qty: 90 1RF Dose Instruction: TAKE ONE (1) TABLET BY MOUTH DAILY Rx Instructions: TAKE ONE (1) TABLET BY MOUTH DAILY losartan 25 mg tablet See Rx Instructions .ROUTE .COMPLEX Qty: 90 1RF Dose Instruction: TAKE ONE (1) TABLET BY MOUTH EVERY DAY Rx Instructions: TAKE ONE (1) TABLET BY MOUTH EVERY DAY hydrochlorothiazide 25 mg tablet See Rx Instructions .ROUTE .COMPLEX Qty: 90 1RF Dose Instruction: TAKE ONE (1) TABLET BY MOUTH EVERY DAY Rx Instructions: TAKE ONE (1) TABLET BY MOUTH EVERY DAY Follow-up/Referrals: Kim Benavidez, RN [Primary Care Provider, Nursing]
--- NOTE | 2025-01-18 18:48 | PC.NURSE ---
patient states that he has been having pain to bilateral legs for a while, was diagnosed with gout- got a steroid shot, did get a steroid dose pack. patient states that it got better, then got worse again. patient states that now he feels like his feet are numb and very sore. patient requesting just a shot and to go home
[2025-01-18] MEDS: HYDROcodone/acetaminophen (*CRX) 5-325 MG TABLET 1 TAB PO (19:21)
[2025-01-18] MEDS: INDOMETHACIN 25 MG CAPSULE 50 MG PO (19:25)
--- OUTSIDE RECORDS SUMMARY | 2025-01-18 19:25 | XMS_ITS | Encounter Summary ---
Author Organization [facility] Address [address] [facility] [place] [address] Phone Care Team Providers Care Java Software Engineer Name Role Phone Mark De Los Santos MD Unavailable Unavailable Rand Tsang MD Unavailable Kim Benavidez MACHINE FILLER, ACTUARIAL DIRECTOR Primary Care Provider + Reason for Visit * Reason Onset Date Comments Gout 01/16/2025 Ankle Pain 01/16/2025 Encounter Details Date Type Department Care Team (Late st Contact Info) Description 01/16/20[facility] [address] [place] [address] Kim Benavidez, MACHINE FILLER, ACTUARIAL DIRECTOR [address] [place] [address] Gout; Ankle Pain Social History Tobacco Use [...] Assessment: Patient calling again to see if MACHINE FILLER has provided recommendation for gout. RN informed [...] - Not From Injury Outcome: Transfer to dairy equipment specialist queue Reason: Trouble walking The caller accepted this outcome. documented in this encounter Plan of Treatment Upcoming Encounters Date Type Department Care Team (Late st Contact Info) Description 02/19/2025 1:45 PM CDT Office Visit [facility] Family [facility] [address] [place] [address] Kim Benavidez, MACHINE FILLER, ACTUARIAL DIRECTOR [address] [place] [address] documented as of this encounter Visit Diagnoses Not on filedocumented in this encounter Additional Health Concerns Assessment Noted Time PHQ-9 Depression Total Score: 0 09/29/19 11:18 AM CDT documented as of this encounter Care Teams Java Software Engineer Relationship Specialty Start Date End Date Kim Benavidez, MACHINE FILLER, ACTUARIAL DIRECTOR [address] [place] [address] PCP - General Advanced Practice Nurse 09/28/24 Mark De Los Santos MD Consulting Physician Urology 09/05/15 Rand Tsang MD Consulting Physician Dermatopathology 01/16/18 documented as of this encounter
--- OUTSIDE RECORDS SUMMARY | 2025-01-18 19:25 | XMS_ITS | Clinical Summary ---
Author Organization [facility] [address] [facility] Address [address] [facility] [address] [facility] [place] [address] Care Team Providers Care Gas Station Operator Name Role Phone Nicolas Jung MD Unavailable [phone] Louie Lomeli MD Unavailable [phone] Melchor Woodard MD Primary Care Provider [phone] Jairo Sparrow MD Unavailable [phone] Allergies Active Allergy Reactions Criticality Noted Date Comments Ceftriaxone Nausea only Low 09/23/2021 Jsemvfp-Lbd-Mmt Reductase Inhibitors Other (See comments) Low 01/26/2018 Generalized pain Medications losartan (COZAAR) 25 mg tablet Take 1 tablet (25 mg total) by mouth daily 3 Active levothyroxine (SYNTHROID) 50 mcg tablet Take 1 tablet (50 mcg total) by mouth 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 Active aspirin 81 mg enteric [...] 06/01/2022 Assessment & Plan (06/01/2022 3:29 PM STERILISATION TECHNICIAN): Worsening, patient reports symptoms are worse 1st thing in the morning, has to clean eyes before can open; fewer symptoms throughout the day; most consistent with allergic conjunctivitis Start azelastine eyedrops Diabetic neuropathy, type II diabetes mellitus 0 05/27/2022 LALITO (acute kidney injury) 03/10/2022 Obesity (BMI 30-39.9) 03/10/2022 Other chest pain 03/09/2022 Assessment & Plan (06/01/2022 3:28 PM STERILISATION TECHNICIAN): Continues to have episodes of chest pain, started in nature; can radiate to right-side of chest Patient reports some relief with ASA; has nitroglycerin Will continue to monitor; if negative cardio workup, consider esophageal spasms of source of pain Assessment & Plan (04/06/2022 11:47 AM STERILISATION TECHNICIAN): Reports pressure-like chest pain today, worsening fatigue [...] (12/29/2021): Added automatically from request for surgery [id number] Leukocytosis 12/19/2021 UTI (urinary tract infection) 12/19/2021 Coronary artery disease 12/18/2021 Overview (12/18/2021): Added automatically from request for surgery [id number] Assessment & Plan (03/07/2022 9:41 AM STERILISATION TECHNICIAN): Not well controlled, patient had stopped taking all medications, had elevated blood pressures today Encouraged patient to continue medications as prescribed Continue Brilinta 90 mg b.i.d., Zetia 10 mg daily Hypertensive crisis 12/16/2021 Assessment & Plan (12/17/2021 12:13 PM CDT): Present on admission, received Labetalol iv, currently resolved NSTEMI (non-ST elevated myocardial infarction) 0 12/16/2021 Overview (12/17/2021): Added automatically from request for surgery [id number] Assessment & Plan (01/10/2022 9:21 PM CDT): [...] Nasal saline spray (Simply saline, Little Remedies, [place], [place]) 2 second sprays or 2 squeezes into [...] (11/18/2020): Added automatically from request for surgery [id number] Assessment & Plan (03/20/2021 4:30 PM STERILISATION TECHNICIAN): Stable, patient waiting on improved A1c for [...] (11/18/2020): Added automatically from request for surgery [id number] Scar of vermilion border of upper lip 07/04/2020 Overview (07/04/2020): Referral to plastic surgery for evaluation and possible affects scar tissue Cicatrix 07/04/2020 Tension headache 06/30/2020 Assessment & Plan (06/25/2021 10:33 AM STERILISATION TECHNICIAN): Patient has recurrent left-sided tension headaches; likely secondary to pressure on muscles from lipoma Assessment & Plan (06/09/2021 1:59 PM STERILISATION TECHNICIAN): Patient has headache for the last 4-6 [...] nostril Assessment & Plan (06/30/2020 12:31 PM STERILISATION TECHNICIAN): Patient has severe left sided headache; reports worsened with looking down or leaning back in bed; may be related to sinuses vs tension type headache -given congestion may consider sinus pressure and will refer to ENT Chronic midline low back pain without sciatica 0 06/30/2020 Assessment & Plan (06/30/2020 12:33 PM STERILISATION TECHNICIAN): Not well controlled; likely worsened due to poor core strength; encouraged weight loss to reduce strain on lower back (has severe central adiposity) Will give patient core exercises to strengthen low back and abodmen Lipoma of neck 06/25/2020 Assessment & Plan (06/25/2021 10:32 AM STERILISATION TECHNICIAN): Not well controlled, patient has left-sided tension style headaches, S with noted changing position of head due to size of lipoma Patient benefit from surgical removal to help improve overall posture as well as potentially improved tension headaches Assessment & Plan (05/14/2021 1:29 PM STERILISATION TECHNICIAN): Patient has large lipoma on back left-sided neck; reports left-sided headaches, which may be contributed by lipoma putting pressure on muscles sugar causing tension headaches Referral to Plastic surgery for removal Assessment & Plan (03/20/2021 4:29 PM STERILISATION TECHNICIAN): Stable, Impacts patient ability to turn had; will continue monitor refer to surgery when appropriate Primary osteoarthritis of left knee 05/08/2020 Assessment & Plan (11/17/2021 3:53 PM CDT): Continues to have significant pain, has some symptom improvement, but limited range of motion and pain with movement Recent steroid injection Follow-up with orthopedics Assessment & Plan (04/21/2021 2:52 PM STERILISATION TECHNICIAN): Stable, continues with physical therapy which is [...] monitor Assessment & Plan (05/14/2021 1:29 PM STERILISATION TECHNICIAN): Improving, patient has walked about 12 lb since last visit; encouraged continued dietary changes, decreasing in take through portion control as well as lowering carbohydrate intake Encourage daily activity of 30 minutes of moderate intensity aerobic exercise daily Assessment & Plan (03/20/2021 4:29 PM STERILISATION TECHNICIAN): Weight is stable, no significant change; patient [...] week Assessment & Plan (05/05/2020 3:33 PM STERILISATION TECHNICIAN): Not well controlled, patient reports weight loss [...] daily Assessment & Plan (06/25/2021 10:31 AM STERILISATION TECHNICIAN): Stable, unclear control, patient reports inconsistent medications use Continue levothyroxine 50 mcg daily, check TSH today Assessment & Plan (04/21/2021 2:52 PM STERILISATION TECHNICIAN): Stable, well controlled; continue levothyroxine 50 mcg daily Assessment & Plan (03/20/2021 4:28 PM STERILISATION TECHNICIAN): Stable, well controlled; continue levothyroxine 50 mcg daily Assessment & Plan (09/24/2020 3:00 PM CDT): Recheck TSH today as previous TSH was mildly elevated, is still elevated will adjust levothyroxine given patient has complaints of generalized fatigue Assessment & Plan (06/16/2020 9:09 AM STERILISATION TECHNICIAN): Will recheck thyroid now that has been on medication for ~6 weeks Assessment & Plan (05/05/2020 3:36 PM STERILISATION TECHNICIAN): Mild elevation of TSH, patient has multiple symptoms including inability to lose weight, chronic fatigue and chronic tiredness Will start at low dose levothyroxine 25 mcg, will recheck TSH in approximately 6 weeks Arthritis 03/24/2020 DM2 (diabetes mellitus, type 2) 03/24/2020 Assessment & Plan (06/01/2022 3:30 PM STERILISATION TECHNICIAN): Not well controlled, A1c has always been [...] diet Assessment & Plan (06/25/2021 10:31 AM STERILISATION TECHNICIAN): Stable, improving; patient A1c has been down trending to 7.5 last time, recheck A1c today Continue metformin XR 1000 mg daily Assessment & Plan (05/14/2021 1:28 PM STERILISATION TECHNICIAN): Stable, improving; last A1c was decreasing to 7.5 Encouraged patient to continue with low-carbohydrate diet; encourage education dietary changes as well as regular exercise Continue metformin 1000 mg daily Assessment & Plan (04/21/2021 2:52 PM STERILISATION TECHNICIAN): Stable, improving; patient reports he has been working on decreasing carbohydrates Has a decreased appetite well on Rybelsuswith minimal side effects Continue metformin 1000 mg daily with breakfast, Rybelsus 7 mg prior to breakfast Continue to monitor encourage continued decreased carbohydrate diet Recheck labs at follow-up appointment Assessment & Plan (03/20/2021 4:28 PM STERILISATION TECHNICIAN): Stable, well controlled, improving Patient reports improved [...] diet Assessment & Plan (05/05/2020 3:32 PM STERILISATION TECHNICIAN): Not well controlled, A1c is 7.7 today [...] strength Assessment & Plan (03/26/2020 12:24 PM STERILISATION TECHNICIAN): Will check blood sugars and A1c to evaluate for control of diabetes on metformin Hyperlipidemia 03/24/2020 Assessment & Plan (12/17/2021 12:16 PM CDT): Pt is not on a statin due to intolerance LDL is 107. Started on Zetia per cardiology. Assessment & Plan (10/13/2021 2:34 PM CDT): Not well controlled, encouraged continued dietary changes and weight loss Assessment & Plan (05/14/2021 1:28 PM STERILISATION TECHNICIAN): Not well controlled, patient cannot tolerate statins; encouraged dietary changes order reduce cholesterol through low-fat high-fiber diet Assessment & Plan (05/05/2020 3:35 PM STERILISATION TECHNICIAN): Poorly controlled patient has elevated total and LDL cholesterol with knee depressed HDL cholesterol Triglycerides are also elevated at 254 Patient is unable to tolerate statin therapy due to muscular pain of thigh muscles Will encouraged diet and exercise as ways to maintain and modify cholesterol level Hypertension, essential 03/24/2020 Assessment & Plan (06/01/2022 3:30 PM STERILISATION TECHNICIAN): Stable, improving; blood pressure today in clinic was normal; patient reports home measurements are improving Continue amlodipine 10 mg daily, hydralazine 25 mg b.i.d., metoprolol 100 mg daily Losartan was previously on medication list, but not part of pharmacy was Given blood pressures appropriate, will continue to monitor, can rehab losartan if blood pressure increases Assessment & Plan (04/06/2022 11:47 AM STERILISATION TECHNICIAN): Stable, improving; most recent blood pressure was at target Continue losartan 100 mg daily, metoprolol 100 mg daily, amlodipine 10 mg daily Assessment & Plan (03/07/2022 9:40 AM STERILISATION TECHNICIAN): Not well controlled; patient reports that he [...] daily Assessment & Plan (06/25/2021 10:30 AM STERILISATION TECHNICIAN): Not well controlled; blood pressure is elevated this morning prior to surgery, elevated again in office Given blood pressure was just normal on 06/09/2021, will increase lisinopril to 40 mg daily Encouraged patient to consistently take medications, with no missed or skipped doses Assessment & Plan (05/14/2021 1:27 PM STERILISATION TECHNICIAN): Not well controlled, blood pressure remains elevated; patient has been inconsistent with taking medications Will continue lisinopril 20 mg, follow-up at next appointment; if blood pressure still is elevated will adjust medication Assessment & Plan (03/20/2021 4:27 PM STERILISATION TECHNICIAN): Stable well controlled; blood pressure a target; [...] needed Assessment & Plan (05/05/2020 3:34 PM STERILISATION TECHNICIAN): Well controlled, patient's blood pressure is at target today Will continue with current therapies and continue to monitor patient Assessment & Plan (03/26/2020 12:24 PM STERILISATION TECHNICIAN): Stable well controlled, continue present management Post-traumatic [...] arthroscopy Assessment & Plan (06/16/2020 9:09 AM STERILISATION TECHNICIAN): Not well controlled, had relief with cortisone injection, but now has worsening pain; relief last for about 3-4 weeks -has some instability of patella, able to 'adjust' patella to relieve pain and improve ROM Assessment & Plan (05/05/2020 3:34 PM STERILISATION TECHNICIAN): Stable, not controlled Patient is not able to consistently place weight on the Patient to follow-up with orthopedics further evaluation, based on recommendations may refer to physical therapy Assessment & Plan (03/26/2020 12:24 PM STERILISATION TECHNICIAN): Will start treatment with diclofenac cream, and use of the triamcinolone as necessary If needed will refer to physical therapy for further improvement in pain Polyneuropathy associated with underlying diseas e ([facility]) 10/24/2019 Assessment & Plan (04/06/2022 11:44 AM STERILISATION TECHNICIAN): Continues to have numbness and weakness in bilateral legs; patient scheduled nerve conduction study Continue gabapentin 100 mg TID Continue with exercise, and strength training; noted to have decreased strength in hip flexors; normal with knee -if EMG is normal, consider CK or evaluation of polymyalgia or polymysitis Assessment & Plan (05/05/2020 3:34 PM STERILISATION TECHNICIAN): Patient has episodes of decreased balance due [...] management Assessment & Plan (06/25/2021 10:32 AM STERILISATION TECHNICIAN): Not well controlled, patient continues to have frequent nighttime urination; encouraged patient to continue follow-up with Urology and reschedule surgery Continue myrbetriq 50 mg daily Assessment & Plan (03/20/2021 4:30 PM STERILISATION TECHNICIAN): Patient continues to have increased urinary frequency, [...] Type Department Care Team Description 01/02/2025 Telephone [facility] [address] [place] [address] [address] [place] [address] Jairo Sparrow MD 12/24/2024 Telephone [facility] [address] [place] [address] [address] [place] [address] Tere Hancock MA 12/06/2024 [facility] [address] [address] Eveline Domínguez RN 11/13/2024 [facility] [address] [address] Kristen Pruitt LPN from Last 3 Months [...] doctor or pharmacy Sometimes 01/17/2024 [facility] Utilities Answer Date Recorded In the past 12 months has e [employer], gas, oil, or water [email or web address] threatened to shut off services in your [...] often do you attend chur ch or latter day services? Never 07/31/2024 Do you belong to any clubs o r organizations such as orthodoxy groups, unions, fraternal or athletic groups, or [...] or slept in a alf (including now)? No 08/29/2023 Housing Stability Vital Sign Answer Víctor e Recorded In the last 12 months, was t here a time when you were not able to pay the mortgage or rent on time? No 07/31/2024 In the past 12 months, how m any times have you moved where you were living? 1 07/31/2024 At any time in the past 12 m [facility], were you homeless or living in a alf (including now)? No 07/31/2024 Personal Safety Answer [...] on file Legal Sex Male 12:23 AM STERILISATION TECHNICIAN Gender Identity Not on file Sexual [...] Discontinued 10/28/2021 Medical Devices Implanted Type Area Online Affiliate Marketing Manager Device Identifier Shelf Expiration Date Model / Serial / Lot [employer] Days[employer] Synergy Xd Monorail 3.5mm 12mm 144cm Delivery System 1 Access [id number] - [id number] Implanted:Qty: 1 on 08/29/2023 by Louie Lomeli MD at [facility] Stent [employer] 10/19/2024 [id number] / / [id number] [place] [facility] Stent Coronary De Rx Cocr Xience Skypoint [id number] - [id number] Implanted:Qty: 1 on 12/17/2021 by Louie Lomeli MD at [facility] 08/24/2023 [id number] [employer] Stent Coronary De Rx Cocr Xience Skypoint [id number] - [id number] Implanted:Qty: 1 on 12/17/2021 by Louie Lomeli MD at [facility] 08/28/2023 [id number] / / [id number] [employer] Daysi Synergy 3mm 16mm 144cm Radiopaque 1 Access Port Inflation Lumen [id number] - [id number] Implanted:Qty: 1 on 12/22/2021 by Louie Lomeli MD at [facility] [employer] Daysi 09/04/2022 [id number] / / [id number] [employer] Angio-Seal Vip 6fr Closere Device [id number] - [id number] Implanted:Qty: 1 on 12/22/2021 by Louie Lomeli MD at [facility] [employer] 09/29/2022 [id number] / / [id number] Procedures Procedure Name Priority Date/Time Associated Diagnosis [...] BLOOD ORDERABLES Final Result Performing Organization Address [facility] Co de Phone Number JULIETA GUERRERO (ACRA) 1 [facility] [place] [address] * (ABNORMAL) Hemoglobin A1c (08/30/2023 2:23 AM CDT) Hgb A1C 6.3(H) 4.0 - 5.6 % Estimated Average Glucose 134 mg/dL JULIETA YOLANDA (ACRA) Comment: The ADA recommends reporting an estimated Average Glucose (eAG) with all Hemoglobin A1c results using the equation derived from a study of 507 normal and diabetic adults. Minority populations were underrepresented and children were not included. (Diabetes Care 31:4895-5419, 2008). The eAG is not equivalent to a fasting glucose. Blood 08/30/2023 2:23 AM CDT 08/30/2023 12:50 PM CDT us Destiny Devi YARN INSPECTOR LAB BLOOD ORDERABLES Final R esult Performing Organization Address City/[facility]/ZIP Co de Phone Number JULIETA GUERRERO (ACRA) 1 [facility] [address] * (ABNORMAL) Lipid panel (08/28/2023 8:27 PM [...] ORDERABLES Final Re sult JULIETA CUNHA) 1 [facility] [place] [address] * PSA screen (10/28/2021 2:47 PM CDT) [...] data last revised 21. Testing performed by: [facility], [address] [place], [place] [address], [place]., [address] Blood 10/28/2021 2:47 PM CDT 10/28/2021 7:50 PM CDT Sohail Gould MD LAB BLOOD ORDERABLES Holly l Result Performing Organization Address City/[facility]/ZIP Co de Phone Number JULIETA GUERRERO (ROSA ELENA) 1 [facility] [employer] [address] * (ABNORMAL) Albumin Creatinine Ratio, Urine (10/28/2021 2:47 PM CDT) Albumin Ur 713.6 mg/L [facility] (ROSA ELENA) Comment: Interpretive Data No reference range established. Current interpretive data was last revised 2018. Testing performed by: [facility], [address] [place] [address]., [address] Creatinine Ur 343.1 mg/dL [facility] (ROSA ELENA) Comment: Interpretive Data No reference range established. Current interpretive data was last revised 2018. Testing performed by: [facility], [address] [place] [address]., [id number] Albumin Creatinine Ratio, Ur 208(H) 1 - 29 mg/g [facility] (ROSA ELENA) Comment:Testing performed by : [address] [address] Urine 10/28/2021 2:47 PM CDT 10/28/2021 9:10 PM CDT Sohail Gould MD LAB URINE ORDERABLES Holly l Result Performing Organization Address [facility]/ZIP Co de Phone Number JULIETA GUERRERO (ROSA ELENA) 1 [facility] [employer] [address] * Stool DNA - Cologuard (11/30/2020) Scribed Stool DNA - Cologuard Negative EXTERNAL LAB Stool Historical Provider LAB BODY FLUIDS AND STOOL S ORDERABLES Final Result EXTERNAL LAB from Last 3 Months or Most Recently Relevant to Health Maintenance Insurance IDPA [facility] MEDICARE ADVANTAGE [facility] MEDIC[facility] Address: [address] [address] [place] [address] IDPA [facility] MEDICARE ADVANTAGE [facility] MEDIC[facility] Address: [address] [address] [place] [address] [facility] MEDICARE Address: [address] [address] [place] [address] [facility] MEDIC[facility] Address: [address] [address] [place] [address] IDPA Advance Directives For more information, please contact: [phone] * Full Code (Latest Code Status on [...] 8:46 PM 08/29/2023 4:46 PM Care Teams Gas Station Operator Relationship Specialty Start Date End Date Melchor Woodard MD PCP - General Family Practice 07/30/22 Nicolas Jung MD Surgeon Orthopedic Surgery 08/05/21 Louie Lomeli MD Consulting Physician Cardiology 12/23/21 Jairo Sparrow MD [address] [place] [address] [place] [address] Consulting Physician Neurology 12/14/22
--- OUTSIDE RECORDS SUMMARY | 2025-01-18 19:25 | XMS_ITS | Clinical Summary ---
Author Organization [facility] Address [address] [address] Care Team Providers Care Relish Maker Name Role Phone Melchor Woodard MD Primary Care Provider [phone] Allergies Active Allergy Reactions Criticality Noted Date Comments Ceftriaxone Nausea and Vomiting Low 09/23/2021 Ucrvnjw-Bbt-Yqc Reductase Inhibitors Other (See Comments) Low 01/26/2018 [...] ZOSTER VACCINE Completed 03/19/2020, 11/2018, 03/27/2018 Insurance [facility] [id number] Care Teams Relish Maker Relationship Specialty Start Date End Date Melchor Woodard MD PCP - General Family Practice 09/28/22
--- OUTSIDE RECORDS SUMMARY | 2025-01-18 19:25 | XMS_ITS | Encounter Summary ---
Author Organization [facility] Address [address] [place] [address] Care Team Providers Care Planning Division Superintendent Name Role Phone Carlos Moran MD Primary Care Provider [phone] Kim Benavidez Primary Care Provider [phone] Encounter Details Date Type Department Care Team (Late st Contact Info) Description 04/13/2024 Lab Requisition [facility] [address] [place] [address] [place] [address] Social History Tobacco Use Types Packs/Day Years Used Date Smoking Tobacco: Former Smokeless Tobacco: Never Alcohol Use Standard Drinks/Week Comments No 0 (1 standard drink = 0.6 oz pur e alcohol) Sex and Gender Information Value Date Recorded Sex Assigned at Not on file Legal Sex Male 11:59 AM 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 Gender Identity Not on file Sexual Orientation Not on file documented as of this encounter Plan of Treatment Not on file documented as of this encounter Procedures Procedure Name Priority Date/Time Associated Diagnosis Comments TSH REFLEX FREE T4 STAT 04/13/2024 3: 21 PM 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 HEMOGLOBIN A1C STAT 04/13/2024 3:21 PM 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 CBC W AUTO DIFFERENTIAL STAT 04/13/2024 3:21 PM 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 COMPREHENSIVE METABOLIC PANEL STAT 04/13/2024 3:21 PM 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 LIPID PROFILE STAT 04/13/2024 3:21 PM 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 documented in this encounter Results * (ABNORMAL) HEMOGLOBIN A1C (04/13/2024 3:21 PM 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) Hemoglobin A1c 7.3(H) <5.7 % 04/13/2024 3:47 PM 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 [facility] Estimated Average Glucose 163 mg/dL 04/13/2024 3:47 PM 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 [facility] Blood BLOOD SPECIMEN / Unknown 04/13/2024 3:21 PM 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 04/13/2024 3:25 PM 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 Narrative [facility] - 04/13/2024 3:47 PM 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 HbA1c Interpretation: Normal: < 5.7% [...] LAB - CHEMISTRY ORDERABLES Holly lu Result [facility] [address] [place] [address] * (ABNORMAL) LIPID PROFILE (04/13/2024 3:21 PM 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) Cholesterol 173 <200 mg/dL 04/13/2024 3:48 PM 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 [facility] Triglycerides 179(H) <150 mg/dL 04/13/2024 3:48 PM 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 [facility] HDL Cholesterol 26(L) >40 mg/dL 3:48 PM 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 [facility] LDL Calculated 111 <130 mg/dL 04/13/2024 3:48 PM 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 [facility] VLDL Calculated 36(H) <=30 mg/dL 3:48 PM 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 [facility] Chol HDL Ratio 6.7(H) <4.5 04/13/2024 3:48 PM 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 [facility] LDL/HDL Ratio 4.3 <5.0 04/13/2024 3:48 PM 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 [facility] Blood BLOOD SPECIMEN / Unknown Venipuncture / Unknown 04/13/2024 3:21 PM 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 04/13/2024 3:25 PM 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 [facility] LAB - CHEMISTRY ORDERABLES Holly l Result Performing Organization Address [facility] Co de Phone Number [facility] [address] [place] [address] * TSH REFLEX FREE T4 (04/13/2024 3:21 PM 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) Pathologist [facility] TSH 3.335 0.350 - 4.940 uIU/mL 04/13/2024 4:06 PM [facility] Blood BLOOD SPECIMEN / Unknown Venipuncture / Unknown 04/13/2024 3:21 PM 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 04/13/2024 3:25 PM 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 [facility] LAB - CHEMISTRY ORDERABLES Holly l Result [facility] [address] [place] [address] * (ABNORMAL) COMPREHENSIVE METABOLIC PANEL (04/13/2024 3:21 PM 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) Glucose 193(H) 70 - 99 mg/dL 04/13/2024 3:48 PM 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 [facility] Sodium 140 136 - 145 mmol/L 04/13/2024 3:48 PM 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 [facility] Potassium 3.4(L) 3.5 - [...] 5 - 34 U/L 04/13/2024 3:48 PM [facility] Protein Total 6.9 6.4 - 8.3 gm/dL 04/13/2024 3:48 PM [facility] Albumin 3.4 3.4 - 5.0 gm/dL 04/13/2024 3:48 PM [facility] Bilirubin Total 0.3 0.2 - 1.2 mg/dL 04/13/2024 3:48 PM [facility] eGFR by CKD-EPI 49(L) >=90 mL/min/1.7 3 m2 04/13/2024 3:48 PM [facility] Blood BLOOD SPECIMEN / Unknown Venipuncture / Unknown 04/13/2024 3:21 PM 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 04/13/2024 3:25 PM 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 [facility] LAB - CHEMISTRY ORDERABLES Holly l Result [facility] [address] [place] [address] * (ABNORMAL) CBC WITH DIFFERENTIAL (04/13/2024 3:21 PM 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) WBC 11.8(H) 4.0 - 10.7 x10E9/L 04/13/2024 3:32 PM [facility] RBC Count 4.77 4.30 - [...] 1.00 - 4.40 x10E9/L 04/13/2024 3:32 PM 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 [facility] Monocyte Absolute 0.86 0.15 - 1.00 x10E9/L 04/13/2024 3:32 PM 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 [facility] Eosinophil Absolute 0.18 0.00 - 0.60 x10E9/L 04/13/2024 3:32 PM 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 [facility] Basophil Absolute 0.04 0.00 - 0.13 x10E9/L 04/13/2024 3:32 PM 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 [facility] Blood BLOOD SPECIMEN / Unknown 04/13/2024 3:21 PM 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 04/13/2024 3:25 PM 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 [facility]aged Mcdonnell LAB - HEMATOLOGY ORDERABLES Fin al Result Performing Organization Address City/State/[facility] Co de Phone Number [facility] [address] [place], [place] [id number] documented in this encounter Visit Diagnoses Not on filedocumented in this encounter Care Teams Planning Division Superintendent Relationship Specialty Start Date End Date Carlos Moran MD PCP - General Internal Medicine 04/24/17 12/19/24 Kim Benavidez [address] [place] [address] PCP - General Telephone Advice Nurse 12/20/24 documented as of this encounter
--- OUTSIDE RECORDS SUMMARY | 2025-01-18 19:25 | XMS_ITS | Encounter Summary ---
Author Organization [facility] Address [address] [place] [address] Care Team Providers Care Institutional Asset Manager Name Role Phone Nicolas Jung MD Unavailable [phone] Louie Lomeli MD Unavailable [phone] Melchor Woodard MD Primary Care Provider [phone] Jairo Sparrow MD Unavailable [phone] NavarreteMaria Eugenia quiñones [facility] Unavailable [phone] Encounter Details Date Type Department Care Team (Late st Contact Info) Description 06/02/[address] [facility] [address] [facility] [address] [place] [address] Jonathan Miranda MD [address] [place], [place] [id number] Social History Tobacco Use Types Packs/Day Years [...] How often do you attend [facility] or methodist services? Never 02/04/2023 Do you belong to any clubs o r organizations such as faith groups, unions, fraternal or athletic groups, or [...] place to sleep or slept in a group home (including now)? Yes 02/04/2023 Personal Safety Answer Date Recorded Have you ever been in or are you currently in a harmful physical or emotional relationship or is someone making you feel afraid or unsafe? Denies 03/09/2023 Sex and Gender Information Value Date Recorded Sex Assigned at Not on file Legal Sex Male 12:23 AM RASPER MACHINE OPERATOR Gender Identity Not on file [...] COVID: Suspected 06/12/2024 06/12/2024 06/12/2024 4:34 PM RASPER MACHINE OPERATOR COVID: Suspected 07/30/2024 07/30/2024 07/30/2024 4:38 PM CDT documented as of this encounter Care Teams Institutional Asset Manager Relationship Specialty Start Date End Date Melchor Woodard MD PCP - General Family Practice 07/30/22 Nicolas Jung MD Surgeon Orthopedic Surgery 08/05/21 Louie Lomeli MD Consulting Physician Cardiology 12/23/21 Jairo Sparrow MD [address] [place] [address] [address] [facility] [place] [address] Consulting Physician Neurology 12/14/22 Maria Eugenia Navarrete, [address] [place] [address] Pharmacist Pharmacy 03/12/24 03/12/24 documented as of this encounter
--- OUTSIDE RECORDS SUMMARY | 2025-01-18 19:25 | XMS_ITS | Clinical Summary ---
Author Organization [facility] Address [address] [place] [address] Care Team Providers Care Nozzleman Name Role Phone Pramod Kim Barker Primary Care Provider [phone] Source Comments [facility],non-owned Affiliates and Associated Physician Practices is amultiple site organization consisting of ambulatory clinics and hospital sitesin [place], [place], [place] and [place]. This disclosure is being madepursuant to the Care Everywhere program and may not contain all information available regarding this patient. Last updated 18.[facility] Allergies No known active allergies Medications * [...] - 12/20/2024 11:59 PM CDT Hospital Encounter On license of [facility] [place] [address] Lisa Singh MD Discharge Disposition: Home or [...] on file Legal Sex Male 11:59 AM BERRY PICKER Gender Identity Not on file Sexual Orientation Not on file Last Filed Vital Signs Vital Sign Reading Time Taken Comments Blood Pressure 136/78 04/24/2017 10:32 AM BERRY PICKER Pulse 78 04/24/2017 10:32 AM BERRY PICKER Temperature 36.8 C (98.2 F) 04/24/2017 10:32 AM BERRY PICKER Respiratory Rate - - Oxygen Saturation - - Inhaled Oxygen Concentration - - Weight 104.8 kg (231 lb) 04/24/2017 10:32 AM BERRY PICKER Height 177.8 cm (5' 10) 04/24/2017 10:32 AM BERRY PICKER Body Mass Index 33.15 04/24/2017 10:32 AM BERRY PICKER Plan of Treatment Health Maintenance Due Date [...] giddiness LIPID PROFILE STAT 04/13/2024 3:21 PM BERRY PICKER from Last 3 Months or Most Recently Relevant to Health Maintenance Results * TILT TABLE TEST WITHOUT AUTONOMIC STUDIES (12/20/2024 11:59 PM CDT) Narrative Lisa Singh MD - 12/20/2024 11:59 PM CDT Lisa Singh MD 12/25/2024 3:31 PM Autonomic Laboratory Studies November, 12:47:02 PM Testing Facility [facility] Health, [facility] [address] [place] [address] Reason for Referral: Dizziness&Giddiness Patient Profile Visit [...] Metoprolol, Nitroglycerin, Oxybutynin, Tramadol (none 24hrs). ID: [id number] Name: Jairo Camposy Referring: Jairo Sparrow M.D. [...] Test Tilt Test - Version Date 3 Director Of [employer]ance [employer]: Messi Esqueda Analysis Tilt (ECG) Analysis - Version Date 3 us Jario Sparrow MD NEUROLOGY ORDERABLES Fi nal Result * (ABNORMAL) LIPID PROFILE (04/13/2024 3:21 PM BERRY PICKER) Cholesterol 173 <200 mg/dL 04/13/2024 3:48 PM BERRY PICKER [facility] Triglycerides 179(H) <150 mg/dL 04/13/2024 3:48 PM BERRY PICKER [facility] HDL Cholesterol 26(L) >40 mg/dL 4 3:48 PM BERRY PICKER [facility] LDL Calculated 111 <130 mg/dL 04/13/2024 3:48 PM BERRY PICKER [facility] VLDL Calculated 36(H) <=30 mg/dL 3:48 PM BERRY PICKER [facility] Chol HDL Ratio 6.7(H) <4.5 04/13/2024 3:48 PM BERRY PICKER [facility] LDL/HDL Ratio 4.3 <5.0 04/13/2024 3:48 PM BERRY PICKER [facility] Blood BLOOD SPECIMEN / Unknown Venipuncture / Unknown 04/13/2024 3:21 PM BERRY PICKER 04/13/2024 3:25 PM BERRY PICKER [facility] LAB - CHEMISTRY ORDERABLES Holly l Result Performing Organization Address City/State/[facility] Co de Phone Number [facility] [address] [place], [place] [id number] from Last 3 Months or Most Recently Relevant to Health Maintenance Insurance MEDICARE [facility] MANAGED MEDICARE [facility] Care Teams Nozzleman Relationship Specialty Start Date End Date Kim Benavidez [address] [place] [address] PCP - General Clinical Trial Coordinator 12/20/24
--- OUTSIDE RECORDS SUMMARY | 2025-01-18 19:25 | XMS_ITS | Encounter Summary ---
Author Organization [facility] Address [address] [place] [address] Care Team Providers Care Hauling Contractor Name Role Phone Nicolas Jung MD Unavailable [phone] Louie Lomeli MD Unavailable [phone] Melchor Woodard MD Primary Care Provider [phone] Jairo Sparrow MD Unavailable [phone] Maria Eugenia Navarrete [facility] Unavailable [phone] Encounter Details Date Type Department Care Team (Late st Contact Info) Description 01/24/2023 Orders Only [facility] [address] [address] [address] [place] [address] Miah Rodrigues MA Pre-op testing [...] week 12/24/2021 How often do you attend [facility] or gnosticist services? Never 12/24/2021 Do you belong to [...] in a senior living (including now)? 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 Gender Identity Not on file Sexual Orientation [...] COVID: Suspected 06/12/2024 06/12/2024 06/12/2024 4:34 PM LEADING FIREFIGHTER COVID: Suspected 07/30/2024 07/30/2024 07/30/2024 4:38 PM CDT documented as of this encounter Care Teams Hauling Contractor Relationship Specialty Start Date End Date Melchor Woodard MD PCP - General Family Practice 07/30/22 Nicolas Jung MD Surgeon Orthopedic Surgery 08/05/21 Louie Lomeli MD Consulting Physician Cardiology 12/23/21 Jairo Sparrow MD [address] [place] [address] [place] [address] Consulting Physician Neurology 12/14/22 Maria Eugenia Navarrete, [address] [place] [address] Pharmacist Pharmacy 03/12/24 03/12/24 documented as of this encounter
--- OUTSIDE RECORDS SUMMARY | 2025-01-18 19:25 | XMS_ITS | Clinical Summary ---
Author Organization [facility] Address [address] [place] [address] Phone Care Team Providers Care Automatic Casting Machine Operator Name Role Phone Mark De Los Santos MD Unavailable Unavailable Rand Tsang MD Unavailable [phone] Kim Benavidez APRN, PRODUCTION PAINTER Primary Care Provider + Allergies Active Allergy [...] for Dizziness. 45 Tablet Active nystatin (MYCOSTATIN) 235064 UNIT/ML SuspensionIndicati ons:Thrush Take 5 mL by [...] 1 tablet daily for 5 days. 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 [address] [place] [address] Kim Benavidez BATCH FREEZER, PRODUCTION PAINTER Medication Refill 01/16/2025 [facility] [address] [place] [phone] Kim Benavidez, BATCH FREEZER, PRODUCTION PAINTER Gout; Ankle Pain 01/[facility]/20[facility] [place] [address] Kim Benavidez BATCH FREEZER, PRODUCTION PAINTER Medication Refill 01/10/2025 [facility] [place] [phone] Kim Benavidez, BATCH FREEZER, PRODUCTION PAINTER Medication Refill 01/09/2025 1:00 PM CDT Office Visit [facility] [address] [place] [phone] Briana Solis BATCH FREEZER, PRODUCTION PAINTER Skin tag (Primary Dx); Actinic keratosis; Skin exam, screening for cancer; Dizziness; Thrush; Sore throat Discharge Disposition: Discharged to home or Selfcare 01/09/2025 Transcribe Orders [facility] [address] [place] [phone] Kim Benavidez APRN, PRODUCTION PAINTER Sleep-disordered breathing (Primary Dx) 01/09/2025 Transcribe Orders [facility] [address] [place] [phone] Kim Benavidez BATCH FREEZER, PRODUCTION PAINTER Sleep-disordered breathing (Primary Dx) 01/08/2025 Telephone [facility] [address] [place] [phone] Kim Benavidez, BATCH FREEZER, PRODUCTION PAINTER 01/08/2025 [facility] [address] [place] [phone] Kim Benavidez, BATCH FREEZER, PRODUCTION PAINTER Referral; Skin Problem 01/07/2025 11:56 AM CDT - 01/07/2025 12:58 PM CDT Emergency [facility] [address] [place] [address] Wade Ansari MD Gait instability Discharge Disposition: Discharged to home or Selfcare 01/07/2025 [facility]phone [facility] [address] [place] [address] Kim Benavidez, BATCH FREEZER, PRODUCTION PAINTER Advice Only 01/07/2025 Travel 01/04/2025 Nurse [facility] [address] [place] [address] Kim Benavidez APRN, PRODUCTION PAINTER Dizziness 01/02/2025 Refill [facility] [address] [place] [address] Kim Benavidez, BATCH FREEZER, PRODUCTION PAINTER Medication Refill 12/25/2024 2:15 PM CDT Office Visit [facility] [address] [place] [address] Kim Benavidez, BATCH FREEZER, PRODUCTION PAINTER Diabetes mellitus type 2, noninsulin dependent (HCC) (Primary Dx); Sleep-disordered breathing; Type 2 diabetes mellitus with 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, without long-term current use of insulin (HCC); Folate deficiency; Generalized weakness Discharge Disposition: Discharged to home or Selfcare 12/25/2024 Travel 12/24/2024 Nurse [facility] [address] [place] [address] Kim Benavidez APRN, PRODUCTION PAINTER Advice Only; Dizziness 12/14/2024 2:00 PM CDT Office Visit [facility] [address] [place] [address] Carlos Escobedo, BATCH FREEZER, PRODUCTION PAINTER Primary osteoarthritis of left knee (Primary Dx) Discharge Disposition: Discharged to home or Selfcare 12/14/2024 Travel 12/14/2024 [facility]phone [facility] [place] [address] Kim Benavidez, BATCH FREEZER, PRODUCTION PAINTER 12/10/2024 11:22 AM CDT - 12/10/2024 12:50 PM CDT [facility] [address] [place] [address] Wade Ansari MD Vertigo Discharge Disposition: Discharged to home or Selfcare 12/10/2024 Travel 12/10/2024 Documentation Only [facility] [address] [place] [address] Kim Benavidez, BATCH FREEZER, PRODUCTION PAINTER 12/05/2024 Nurse Triage [facility] [address] [place] [phone] Kim Benavidez, BATCH FREEZER, PRODUCTION PAINTER Appointment; Dizziness; Headache 11/24/2024 1:30 PM CDT - 11/24/2024 7:17 PM CDT [facility] [address] [place] [address] Karthikeyan Walker, BATCH FREEZER, PRODUCTION PAINTER Fall Discharge Disposition: Discharged to home or Selfcare 11/24/2024 Travel 11/19/2024 [facility] [place] [address] Jairo Kelly MD Medication Refill from Last [...] CDT Office Visit [facility] [place] [address] Kim Benavidez, BATCH FREEZER, PRODUCTION PAINTER [address] [place] [address] Health Maintenance Due Date Last Done Comments [...] Presumptive negative, VOID POC STREP SCREEN CONTROL [employer] 01/09/2025 1:45 PM CDT Briana Solis APRN, CNP POINT OF CARE TESTING (MANUAL) Final Result * (ABNORMAL) POCT GLYCOSYLATED HEMOGLOBIN (12/25/2024 2:30 PM CDT) HGB-A1C 7.4(A) 4 - 6 % 12/25/2024 2:30 PM CDT Result [facility] Kim Benavidez APRN, CNP POINT [...] No treatment, alternative treatment, observation and referral Menard protocol: Procedure explained and questions answered to [...] immediate complications us Carlos Jairo Gregg ROSENN, PRODUCTION PAINTER PROCEDURE/MINOR SURGICAL ORDERABLES Final Result * CT HEAD OR BRAIN WO CONTRAST (12/10/2024 12:00 PM CDT) Only the most recent of2 resultswithin the time period is included. Anatomical Region Laterality Modality Head N/A Computed Tomogra phy 12/10/2024 12:1 8 PM CDT Impressions 12/10/2024 12:20 PM CDT IMPRESSION: No acute intracranial findings. Similar appearance of moderate chronic microangiopathy and heet-ys-ofdlmidw generalized atrophy. Narrative 12/10/2024 12:20 PM CDT [...] to moderate chronic microangiopathy. There is also pkyv-ux-ohzqopjd generalized atrophy. No hydrocephalus. EXTRA-AXIAL SPACES: No fluid collections. No masses. CALVARIUM: No fracture. SINUSES/MASTOIDS: No fluid or mucosal thickening. ORBITS: No significant abnormality. OTHER: No other significant abnormality. THIS IS AN ELECTRONICALLY VERIFIED FINAL REPORT 12/10/2024 12:18 PM - Electronically signed by Jim Garcia M.D. AM: AM Report ID: [id number] Reading Location: [id number] Procedure Note Jim Garcia MD - 12/10/2024 [...] to moderate chronic microangiopathy. There is also vtio-gn-heptjeym generalized atrophy. No hydrocephalus. EXTRA-AXIAL SPACES: No fluid collections. No masses. CALVARIUM: No fracture. SINUSES/MASTOIDS: No fluid or mucosal thickening. ORBITS: No significant abnormality. OTHER: No other significant abnormality. THIS IS AN ELECTRONICALLY VERIFIED FINAL REPORT 12/10/2024 12:18 PM - Electronically signed by Jim Garcia M.D. AM: AM Report ID: [id number] Reading Location: [id number] IMPRESSION: No acute intracranial findings. Similar appearance of moderate chronic microangiopathy and thki-ok-dyaaqcao generalized atrophy. Wade Ansari MD IMG CT ORDERABLES Final Re sult * Gold Top Tube (12/10/2024 11:39 AM CDT) Blood No Phlebotomy Charged / Unknown 12/10/2024 11:39 AM CDT 12/10/2024 11:55 AM CDT Wade Ansari MD CHEMISTRY ORDERABLES Final Result [facility] [place] [address] * (ABNORMAL) CBC with Auto Differential (12/10/2024 11:39 AM CDT) Only the most recent of2 resultswithin the time period is included. WBC 10.83 4.00 - 12.00 10(3)/mcL 12/10/2024 11:59 AM CDT [facility] RBC 5.44 4.40 - 5.80 10(6)/[facility] 12/10/2024 11:59 AM CDT [facility] HEMOGLOBIN (HGB) 16.5 13.0 - 16.5 g/dL 12/10/2024 11:59 AM CDT [facility] HEMATOCRIT (HCT) 49.7 38.0 - 50.0 % 12/10/2024 11:59 AM CDT [facility] MCV 91.4 82.0 - 96.0 fL 12/10/2024 11:59 AM CDT [facility] MCH 30.3 26.0 - 32.0 pg 12/10/2024 11:59 AM CDT [facility] MCHC 33.2 31.0 - 36.0 g/dL 12/10/2024 11:59 AM CDT [facility] PLATELET COUNT 186 140 - 440 10(3)/[facility] 12/10/2024 11:59 AM CDT [facility] RDW 13.8 11.8 - 15.5 % 12/10/2024 11:59 AM CDT [facility] MPV 10.3 8.0 - 12.6 fL 12/10/2024 11:59 AM CDT [facility] NEUTROPHILS 77.7(H) 40.0 - 68.0 % 12/10/2024 11:59 AM CDT [facility] LYMPHOCYTES 11.4(L) 19.0 - 49.0 % 12/10/2024 11:59 AM CDT [facility] MONOCYTES 7.4 3.0 - 13.0 % 12/10/2024 11:59 AM CDT [facility] EOSINOPHILS 0.9 0.0 - 8.0 % 12/10/2024 11:59 AM CDT [facility] BASOPHILS 0.6 0.0 - 1.0 % 12/10/2024 11:59 AM CDT [facility] IMMATURE GRANULOCYTE 2.0(H) 0.0 - 0.4 % 12/10/2024 11:59 AM CDT [facility] Comment:Immature Granulocyte s includes Metamyelocytes, Myelocytes, and Promyelocytes. ABSOLUTE NEUTROPHILS 8.41(H) 1.40 - 5.30 10(3)/mcL 12/10/2024 11:59 AM CDT [facility] ABSOLUTE LYMPHOCYTES 1.23 0.90 - 3.30 10(3)/mcL 12/10/2024 11:59 AM CDT [facility] ABSOLUTE MONOCYTES 0.80 0.10 - 0.90 10(3)/[facility] 12/10/2024 11:59 AM CDT [facility] ABSOLUTE EOSINOPHIL 0.10 0.00 - 0.50 10(3)/[facility] 12/10/2024 11:59 AM CDT [facility] ABSOLUTE BASOPHILS 0.07 0.00 - 0.10 10(3)/[facility] 12/10/2024 11:59 AM CDT [facility] ABSOLUTE IMMATURE GRANULOCYTE 0.22(H) 0.00 - 0.03 10 (3) [facility]. 12/10/2024 11:[address] [facility] NRBC PER 100 WBC 0 12/11/19 25 11:[address] [facility] Blood Venipuncture / Unknown 12/10/2024 11:39 AM CDT 12/10/2024 11:53 AM CDT us Wade Ansari MD HEMATOLOGY ORDERABLES Holly leigh Result [facility] [address] [place] [address] * PT / INR (12/10/2024 11:39 AM CDT) Pathologist [facility] PROTIME-PATIENT 13.3 11.6 - 14.8 sec 12/10/2024 12:12 PM CDT [facility] INR 1.0 0.9 - 1.2 12/10/2024 12:12 PM CDT [facility] Comment: Therapeutic Ranges INR = 2.0-3.0: Venous thromb, atrial fib, pul embolism, tissue heart valve, ami. INR = 2.5-3.5: Mechanical heart valve Critical value for INR is >/= 4.5 Blood Venipuncture / Unknown 12/10/2024 11:39 AM CDT 12/10/2024 11:53 AM CDT Wade Ansari MD HEMATOLOGY ORDERABLES Holly l Result Performing Organization Address City/[facility]/ZIP Co de Phone Number [facility] [address] [place] [address] * Magnesium (12/10/2024 11:39 AM CDT) [facility] MAGNESIUM 2.0 1.6 - 2.6 mg/dL 12/10/2024 12:23 PM CDT [facility] Blood Venipuncture / Unknown 12/10/2024 11:39 AM CDT 12/10/2024 11:53 AM CDT Wade Ansari MD CHEMISTRY ORDERABLES Final Result [facility] [place] [address] * ETOH Level (12/10/2024 11:39 AM CDT) [facility] ETHANOL <10 <10 mg/dL 12/10/2024 12:23 PM CDT [facility] Blood Venipuncture / Unknown 12/10/2024 11:39 AM CDT 12/10/2024 11:53 AM CDT us Wade Ansari MD CHEMISTRY ORDERABLES Final Result [facility] [address] [place] [address] * (ABNORMAL) CMP (12/10/2024 11:39 AM CDT) Only the most recent of2 resultswithin the time period is included. SODIUM 144 136 - 145 mmol/L 12/10/2024 12:[address] [facility] POTASSIUM 3.4(L) 3.5 - 5.1 mmol/L 12/10/2024 12:[address] [facility] CHLORIDE 106 98 - 107 mmol/L 12/10/2024 12:[address] [facility] CO2, VENOUS 27 22 - 30 mmol/L 12/10/2024 12:[address] [facility] ANION GAP 14.4 <18.0 mmol/L 12/10/2024 12:[address] [facility] GLUCOSE 143(H) 70 - 99 mg/dL 12/10/2024 12:[address] [facility] BUN 29(H) 8 - 26 mg/dL 12/10/2024 12:[address] [facility] CREATININE, BLOOD 1.38(H) 0.70 - 1.30 mg/dL 12/10/2024 12:[address] [facility] BUN/CREATININE RATIO 21(H) 12 - 20 ratio 12/10/2024 12:[address] [facility] TOTAL PROTEIN 7.1 6.0 - 8.0 g/dL 12/10/2024 12:[address] [facility] ALBUMIN 4.1 3.5 - 5.0 g/dL 12/10/2024 12:[address] [facility] A/G RATIO 1.4 1.0 - 2.2 12/10/2024 12:[address] [facility] CALCIUM 9.3 8.7 - 10.5 mg/dL 12/10/2024 12:23 PM CDT [facility] T BILI 0.6 0.2 - 1.2 mg/dL 12/10/2024 12:23 PM CDT [facility] SGOT (AST) 18 <43 U/L 12/10/2024 12:[address] [facility] SGPT (ALT) 17 <56 U/L 12/10/2024 12:23 PM CDT [facility] ALKALINE PHOSPHATASE 93 40 - 150 U/L 12/10/2024 12:[address] [facility] GFR, ESTIMATED 54(L) >=60 12/10/2024 12:[address] [facility] Comment: Creatinine Clearance is the preferred criteria for selecting drug dose adjustments in renally impaired patients. The GFR is provided as additional pertinent clinical information. GFR is reported in mL/min/1.73 sq m. Calculation based on the Chronic Kidney Disease Epidemiology Collaboration (CKD- EPI) equation refit without adjustment for race. GFR, EST. >60 >=60 025 12:[address] [facility] GFR, EST. NONAFRICAN 51(L) >=60 12/10/2024 12:[address] [facility] Blood Venipuncture / Unknown 12/10/2024 11:39 AM CDT 12/10/2024 11:53 AM CDT us Wade Ansari MD CHEMISTRY ORDERABLES Final Result [facility] [address] [place] [address] * (ABNORMAL) POCT Glucose (12/10/2024 11:33 AM CDT) GLUCOSE,BEDSID E POCT 133(H) 70 - 99 mg/dL 12/10/2024 11:34 AM CDT [facility] Comment: RN Notified PAT CLAROS Blood 12/10/2024 11:3 3 AM CDT 12/10/2024 11:34 AM CDT us None Provider POINT OF CARE TESTING Final Resu lt [facility] [place] [address] * EKG 12 LEAD (12/10/2024 11:24 AM CDT) Only the most recent of2 resultswithin the time period is included. Ventricular Rate 63 BPM EXTERNAL EKG Atrial Rate 63 BPM EXTERNAL EKG P-R Interval 184 ms EXTERNAL EKG QRS Duration 90 ms EXTERNAL EKG Q-T Duration 442 ms EXTERNAL EKG QTC CALCULATION 452 ms EXTERNAL EKG P [place] 44 degrees EXTERNAL EKG R [place] -31 degrees EXTERNAL EKG T [place] 170 degrees EXTERNAL EKG 12/10/2024 11:2 4 AM CDT Impressions EXTERNAL EKG - 12/10/2024 3:19 PM CDT Normal sinus rhythm Left axis deviation Left ventricular hypertrophy with repolarization abnormality ( R in aVL ) Abnormal ECG When compared with ECG of 24-NOV-2024 14:29, No significant change was found Confirmed by Jacinto Osorio ([id number]) on 12/10/2024 3:19:53 PM Narrative Procedure Note Jacinto Osorio MD PhD - 12/10/2024 IMPRESSION: Normal sinus rhythm Left axis deviation Left ventricular hypertrophy with repolarization abnormality ( R in aVL) Abnormal ECG When compared with ECG of 24-NOV-2024 14:29, No significant change was found Confirmed by Jacinto Osorio ([id number]) on 12/10/2024 3:19:53 PM us Wade Ansari MD IMG ECG ORDERABLES Final R esult EXTERNAL EKG * EKG SCAN (12/10/2024 12:00 AM CDT) Only the most recent of2 resultswithin the time period is included. 12/10/2024 us Provider Scan IMG ECG ORDERABLES Final Result Performing Organization Address City/[facility] Co de Phone Number RESULTING AGENCY * TROPONIN I, HIGH SENSITIVITY (HSTRP) (11/24/2024 4:05 PM CDT) Only the most recent of2 resultswithin the time period is included. TROPONIN I, HIGH SENSITIVITY- [place] 20 <=35 ng/L 11/24/2024 4:57 PM CDT [facility] Comment: High-sensitivity troponin I results are reported in ng/L making the result appear to be 1,000 times higher than the contemporary troponin I value which is reported in ng/ml. Results from [place]. Blood Venipuncture / Unknown 11/24/2024 4:05 PM CDT 11/24/2024 4:13 PM CDT Karthikeyan Walker APRN, CNP CHEMISTRY ORDERABLES Fi nal Result Performing Organization Address [facility] Co de Phone Number [facility] [address] [place] [address] * XR HIP 2 VIEWS BILATERAL WITH [...] signed by Marin BECKMAN: RK Report ID: [id number] Reading Location: [id number] Procedure Note Marin Agustin MD - 11/24/2024 [...] Marin Agustin M.D. KR: RK Report ID: [id number] Reading Location: [id number] IMPRESSION: 1. No acute osseous abnormality. 2. Mild osteoarthritis of the right and left hips. Karthikeyan Walker APRN, PRODUCTION PAINTER IMG DIAGNOSTIC ORDERABL ES Final Result * [...] Marin Agustin M.D. KR: RK Report ID: [id number] Reading Location: [id number] Procedure Note Marin Agustin MD - 11/24/2024 [...] Marin Agustin M.D. KR: RK Report ID: [id number] Reading Location: [id number] IMPRESSION: No acute cardiopulmonary abnormality. Karthikeyan Walker APRN, PRODUCTION PAINTER IMG DIAGNOSTIC ORDERABL ES Final Result * (ABNORMAL) URINALYSIS REFLEX IF INDICATED BY ABNORMAL RESULTS (11/24/2024 2:00 PM CDT) SPECIFIC GRAVITY 1.015 1.003 - 1.030 11/24/2024 2:36 PM CDT [facility] URINE PH 5.0 5.0 - 9.0 11/24/2024 2:36 PM CDT [facility] WBC ESTERASE Negative Negative 11/24/2024 2:36 PM CDT [facility] NITRITE Negative Negative 11/24/2024 2:36 PM CDT [facility] PROTEIN, RANDOM URINE 15 mg/dL(A) Negative 11/24/2024 2:36 PM CDT [facility] URINE GLUCOSE, QUAL 1000 mg/dL(A) Negative 11/24/2024 2:36 PM CDT [facility] URINE KETONES Negative Negative 11/24/2024 2:36 PM CDT [facility] UROBILINOGEN Normal Normal mg/dL 11/24/2024 2:36 PM CDT [facility] URINE BLOOD Negative Negative shayna/ul 11/24/2024 2:36 PM CDT [facility] URINALYSIS COLOR Yellow 11/25/19 2:36 PM CDT [facility] URINALYSIS CLARITY Clear 11/24/2024 2:36 PM CDT [facility] Urine URINE SPECIMEN OBTAINED BY CLEAN CATCH PROCEDURE / Unknown Non-Phlebotomy Collection / Unknown 11/24/2024 2:00 PM CDT 11/24/2024 2:06 PM CDT Karthikeyan Walker APRN, CNP URINE ORDERABLES Final Result [facility] [place] [address] * (ABNORMAL) NT-proBNP (11/24/2024 1:59 PM CDT) NT PROBNP 510.9(H) <450.0 pg/mL 11/24/2024 2:36 PM CDT [facility] Comment: AGE pg/mL INTERPRETATION All <300 [...] ORDERABLES Fi nal Result Performing Organization Address City/[facility]/ZIP Co de Phone Number [facility] [address] [place] [address] * (ABNORMAL) Creatine Kinase (CK) Total (11/24/2024 1:59 PM CDT) CK (CPK) 359(H) 30 - 200 U/L 11/24/2024 2:[address] [facility] Blood Venipuncture / Unknown 11/24/2024 1:59 PM CDT 11/24/2024 2:06 PM CDT Karthikeyan Walker APRN, CNP CHEMISTRY ORDERABLES Fi nal Result [facility] [address] [place] [address] * HEPATITIS C ANTIBODY (10/08/2024 11:30 AM CDT) hepatitis C antibody 0.08 <1 S/CO 10/08/2024 9:54 PM CDT [facility] Comment: Signal/Cutoff ratio < 0.79 is Nondetected Signal/Cutoff ratio 0.80-0.99 is Grayzone Signal/Cutoff ratio > 0.99 is Detected Supplemental assays are recommended if signal/cutoff ratio is >/=1.00. Signal/cutoff ratio result >/= 5.00 is 97% predictive of positivity for recombinant immunoblot assay (RIBA) and will be reported to the [place] Department [facility] Public [facility] as required. Blood Venipuncture / Unknown 10/08/2024 11:30 AM CDT 10/08/2024 11:48 AM CDT Kim Benavidez BATCH FREEZER, PRODUCTION PAINTER CHEMISTRY ORDERABLES Fin al Result Performing Organization Address City/[facility]/ZIP Co de Phone Number [facility] [address] [place] [address], * (ABNORMAL) PSA DIAGNOSTIC,TOTAL (02/19/2019 10:38 AM CDT) PSA, TOTAL (PROSTATIC SPECIFIC ANTIGEN) 6.36(H) <=4.00 ng/mL 02/19/2019 1:[address] [facility] Blood specimen (specimen) Venipuncture / Unknown 02/19/2019 10:38 AM CDT 02/19/2019 12:[address] [facility] - 02/19/2019 1:24 PM CDT PSA NOTE: The PSA value should be used in conjunction with information available from clinical evaluation and other diagnostic procedures. Michelet Moran MD CHEMISTRY ORDERABLES Final Result Performing Organization Address City/[facility]/ZIP Co de Phone Number [facility] [address] [place] [address] from Last 3 Months or Most Recently Relevant to Health Maintenance Insurance MEDICARE C [facility] Advance Directives * Full Code (Latest Code Status on File) Date Activated Date Inactivated Comments 08/07/2024 2:22 PM Care Teams Automatic Casting Machine Operator Relationship Specialty Start Date End Date Kim Benavidez, BATCH FREEZER, PRODUCTION PAINTER [address] [place] [address] PCP - General Advanced Practice Nurse 09/28/24 Mark De Los Santos MD Consulting Physician Urology 09/05/15 Rand Tsang MD Consulting Physician Dermatopathology 01/16/18
--- OUTSIDE RECORDS SUMMARY | 2025-01-18 19:25 | XMS_ITS | Encounter Summary ---
Author Organization [facility] Address [address] [place] [address] Phone Care Team Providers Care Authorizer Name Role Phone Carlos Moran MD Primary Care Provider [phone] Mark De Los Santos MD Unavailable Unavailable Rand Tsang MD Unavailable [phone] Provider, None Primary Care Provider UnavailSohail Kc MD Primary Care Provider [phone] Carlos Moran MD Primary Care Provider [phone] Sohail Gould MD Primary Care Provider [phone] Vicki Salmeron APRN Primary Care Provider [phone] Kim Benavidez APRN, [facility] Primary Care Provider + Reason for Visit * Reason Comments Medication Refill Encounter Details Date Type Department Care Team (Late st Contact Info) Description 03/21/2020 Refill [facility] - Primary Care - [place] [address] [place] [address] Carlos Moran MD [address] [place] [address] Medication Refill Social History Tobacco [...] COVID-19? No / Unsure 03/13/2020 2:58 PM MURAL PAINTER documented as of this encounter Miscellaneous Notes * Telephone Encounter - Carlos Moran MD - 03/21/2020 10:53 AM MURAL PAINTER Refill request approved. L PAINTER * Telephone Encounter - Tavia Pablo [facility] - 03/21/2020 10:42 AM MURAL PAINTER Medication failed the protocol, provider to review [...] weeks ago Acute pain of left knee [facility] Carlos Moran MD 1 month ago Cellulitis of mouth [facility] Carlos Moran MD 1 month ago Polyneuropathy associated with underlying disease (HCC) [facility] Carlos Moran MD 4 months ago Hypertension, essential [facility] - Carlos Pathak MD 8 months ago Urinary pain [facility] Gonzalez MD Upcoming Appointments Future Appointments In 1 month Fox Shearer MD [facility] - Neurology [facility] In 1 month Carlos Moran MD [facility] Family Medicine - [facility], FREY ADMINISTRATIVE VOLUNTEER - Recent and Past Visits Recent Visits Date Type Provider Dept 02/28/20 [facility] [address] 02/05/20 [facility] [address] 10/24/19 Office Visit Carlos Moran, MD [facility] 07/13/19 Office Visit Carlos Moran, MD [address] [facility] 04/23/19 Office Visit Carlos Moran, MD [address] 02/12/19 [facility] recent visits within past 460 days with a meds authorizing provider and meeting all other requirements Future Appointments Date Type Provider Dept 04/24/20 Appointment Carlos Moran, [facility] Showing future appointments within next 90 days with a meds authorizing provider and meeting all other requirements L PAINTER documented in this encounter Plan of Treatment Upcoming Encounters Date Type Department Care Team (Late st Contact Info) Description 02/19/2025 1:45 PM CDT Office Visit [facility] [address] [place] [address] Kim Benavidez, DANCE MASTER, LEASE PURCHASE DRIVER [address] [place] [address] documented as of this encounter Visit Diagnoses Not on filedocumented in this encounter Additional Health Concerns Assessment Noted Time PHQ-9 Depression Total Score: 0 07/13/19 20 10:00 AM CDT documented as of this encounter Care Teams Authorizer Relationship Specialty Start Date End Date Carlos Moran MD [address] [place] [address] PCP - General Internal Medicine 01/28/15 04/21/20 Provider, None [place] PCP - General 04/22/20 08/04/20 Sohail Gould MD [address] [place] [address] PCP - General Family Medicine 08/05/20 10/06/20 Carlos Moran MD [address] [place] [address] PCP - General Internal Medicine 10/07/20 08/19/21 Sohail Gould MD [address] [place] [address] PCP - General Family Medicine 08/20/21 08/15/24 Vicki Salmeron APRN [address] [place] [address] [place] [address] PCP - General Advanced Practice Nurse 08/16/24 Kim Benavidez APRN, LEASE PURCHASE DRIVER [address] [place] [address] PCP - General Advanced Practice Nurse 09/28/24 Mark De Los Santos MD [address] [place] [address] Consulting Physician Urology 09/05/15 Rand Tsang MD [address] [place] [address] Consulting Physician Dermatopathology 01/16/18 documented as of this encounter
--- OUTSIDE RECORDS SUMMARY | 2025-01-18 19:25 | XMS_ITS | Encounter Summary ---
Author Organization [facility] Healthcare Address [address] [place] [address] Care Team Providers Care Honey Processor Name Role Phone Nicolas Jung MD Unavailable [phone] Louie Lomeli MD Unavailable [phone] Melchor Woodard MD Primary Care Provider [phone] Jairo Sparrow MD Unavailable [phone] Maria Eugenia Navarrete [facility] Unavailable [phone] Encounter Details Date Type Department Care Team (Late st Contact Info) Description 06/02/2023 Telephone [facility] [address] [place] [address] Jonathan Miranda MD [address] [place], [place] [id number] Social History Tobacco Use Types Packs/Day Years [...] How often do you attend chur or jain services? 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 Gender Identity Not on file Sexual Orientation [...] COVID: Suspected 06/12/2024 06/12/2024 06/12/2024 4:34 PM INVASIVE CARDIOVASCULAR TECHNOLOGIST COVID: Suspected 07/30/2024 07/30/2024 07/30/2024 4:38 PM CDT documented as of this encounter Care Teams Honey Processor Relationship Specialty Start Date End Date Melchor Woodard MD PCP - General Family Practice 07/30/22 Nicolas Jung MD Surgeon Orthopedic Surgery 08/05/21 Louie Lomeli MD Consulting Physician Cardiology 12/23/21 Jairo Sparrow MD [address] [place] [address] [address] [facility] [place] [address] Consulting Physician Neurology 12/14/22 Maria Eugenia Navarrete, [address] [place] [address] Pharmacist Pharmacy 03/12/24 03/12/24 documented as of this encounter
--- OUTSIDE RECORDS SUMMARY | 2025-01-18 19:25 | XMS_ITS | Encounter Summary ---
Author Organization [facility] Address [address] [facility] [place] [address] Phone Care Team Providers Care Taffy Puller Name Role Phone Mark De Los Santos MD Unavailable Unavailable Rand Tsang MD Unavailable [phone] Kim Benavidez PROPERTY CLAIMS ADJUSTER, PHARMACY CONSULTANT Primary Care Provider + Reason for Visit * Reason Onset Date Comments Advice Only 10/08/2024 Dizziness 10/08/2024 Encounter Details Date Type Department Care Team (Late st Contact Info) Description 10/08/2024 [facility] [address] [place] [address] Kim Benavidez, PROPERTY CLAIMS ADJUSTER, PHARMACY CONSULTANT [address] [place] [address] Advice Only; Dizziness Social History Tobacco Use [...] Description 02/19/2025 1:45 PM CDT Office Visit [facility] - Family Medicine [facility] [address] [place] [address] Kim Benavidez, PROPERTY CLAIMS ADJUSTER, PHARMACY CONSULTANT [address] [place] [address] documented as of this encounter Visit Diagnoses Not on filedocumented in this encounter Additional Health Concerns Assessment Noted Time PHQ-9 Depression Total Score: 0 09/29/19 25 11:18 AM CDT documented as of this encounter Care Teams Taffy Puller Relationship Specialty Start Date End Date Kim Benavidez, PROPERTY CLAIMS ADJUSTER, PHARMACY CONSULTANT [address] [place] [address] PCP - General Advanced Practice Nurse 09/28/24 Mark De Los Santos MD Consulting Physician Urology 09/05/15 Rand Tsang MD Consulting Physician Dermatopathology 01/16/18 documented as of this encounter
--- OUTSIDE RECORDS SUMMARY | 2025-01-18 19:25 | XMS_ITS | Encounter Summary ---
Author Organization [facility] Address [address] [facility] [address] Phone Care Team Providers Care Business Process Analyst Name Role Phone Mark De Los Santos MD Unavailable Unavailable Rand Tsang MD Unavailable [phone] Kim Benavidez IMPLEMENTATION ANALYST, HEEL ATTACHER WOOD Primary Care Provider + Reason for Visit * Reason Onset Date Comments Referral 01/08/2025 Skin Problem 01/08/2025 Encounter Details Date Type Department Care Team (Late st Contact Info) Description 01/08/2025 [facility] [address] [place] [address] Kim Benavidez, IMPLEMENTATION ANALYST, HEEL ATTACHER WOOD [address] [place] [address] Referral; Skin Problem Social History Tobacco Use [...] Medical Group - Family Medicine - Arnoldo [phone] - Reason for Disposition: Caller can't describe it clearly . Protocols Used: Skin Lesion - Moles or [id number] See care advice and disposition for Guideline. [...] patient is requesting a referral to (speciality) supervisor carbon paper coating Background: Referral requested for cataracts Action: Name and location of patient's preferred specialty provider: Dr. Ignacio Woodard, [facility] Mariel Tejeda, [place] [id number] Patient been seen by this speciality in the past? No Recommendation: Referral request routed to provider for review. Contacter has been given the referral center information to call and check status of referral once the order has been signed. Non-[facility] Region: Tuesday- Tuesday 8am-4:30pm, option 7 documented in this encounter Plan of Treatment Upcoming Encounters Date Type Department Care Team (Late st Contact Info) Description 02/19/2025 1:45 PM CDT [facility] Visit [facility] [address] [place] [address] Kim Benavidez APRN, HEEL ATTACHER WOOD [address] [place] [address] documented as of this encounter Visit Diagnoses Diagnosis Cataract, unspecified cataract type, unspecified laterality- Primary documented in this encounter Additional Health Concerns Assessment Noted Time PHQ-9 Depression Total Score: 0 09/29/19 11:18 AM CDT documented as of this encounter Care Teams Business Process Analyst Relationship Specialty Start Date End Date Kim Benavidez APRN, HEEL ATTACHER WOOD [address] [place] [address] PCP - General Advanced Practice Nurse 09/28/24 Mark De Los Santos MD Consulting Physician Urology 09/05/15 Rand Tsang MD Consulting Physician Dermatopathology 01/16/18 documented as of this encounter
--- OUTSIDE RECORDS SUMMARY | 2025-01-18 19:25 | XMS_ITS | Encounter Summary ---
Author Organization [facility] Address [address] [place] [address] Phone Care Team Providers Care Program Facilitator Name Role Phone Mark De Los Santos MD Unavailable Unavailable Rand Tsang MD Unavailable [phone] Carlos Moran MD Primary Care Provider [phone] Sohail Gould MD Primary Care Provider [phone] Vicki Salmeron APRN Primary Care Provider [phone] Kim Benavidez APRN, [facility] Primary Care Provider + Reason for Visit * Reason Comments Medication Refill Encounter Details Date Type Department Care Team (Late st Contact Info) Description 01/26/2021 Refill [facility] - Primary Care - [place] [address] [place] [address] Carlos Moran MD [address] [place], [place] [id number] Medication Refill Social History Tobacco Use Types [...] [facility] - Family [facility] [address] [place] [address] Kim Benavidez APRN, HEALTH CARE AIDE [address] [place] [address] documented as of this encounter Visit Diagnoses Not on filedocumented in this encounter Additional Health Concerns Assessment Noted Time PHQ-9 Depression Total Score: 0 07/13/19 20 10:00 AM CDT documented as of this encounter Care Teams Program Facilitator Relationship Specialty Start Date End Date Carlos Moran MD [address] [place] [address] PCP - General Internal Medicine 10/07/20 08/19/21 Sohail Gould MD [address] [place], [place] [address] [address] PCP - General Family Medicine 08/20/21 08/15/24 Vicki Salmeron APRN [address] [place], [place] [address] [address] PCP - General Advanced Practice Nurse 08/16/24 Kim Benavidez APRN, HEALTH CARE AIDE [address] [place] [address] PCP - General Advanced Practice Nurse 09/28/24 Mark De Los Santos MD Consulting Physician Urology 09/05/15 Rand Tsang MD Consulting Physician Dermatopathology 01/16/18 documented as of this encounter
--- OUTSIDE RECORDS SUMMARY | 2025-01-18 19:25 | XMS_ITS | Encounter Summary ---
Author Organization [facility] Healthcare Address [address] [place] [address] Care Team Providers Care Assistant Production Manager Name Role Phone Nicolas Jung MD Unavailable [phone] Louie Lomeli MD Unavailable [phone] Melchor Woodard MD Primary Care Provider [phone] Jairo Sparrow MD Unavailable [phone] Encounter Details Date Type Department Care Team (Late st Contact Info) Description 08/09/2024 Documentation [facility] Case Management [address] [place] [address] Rodriguez Goldstein RN Social History Tobacco Use [...] materials from doctor or pharmacy Sometimes 01/17/2024 [facility] Utilities Answer Date Recorded In [...] often do you attend chur ch or jew services? 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 Gender Identity Not on file Sexual Orientation Not on file documented as of this encounter Plan of Treatment Not on file documented as of this encounter Visit Diagnoses Not on filedocumented in this encounter Care Teams Assistant Production Manager Relationship Specialty Start Date End Date Melchor Woodard MD PCP - General Family Practice 07/30/22 Nicolas Jung MD Surgeon Orthopedic Surgery 08/05/21 Louie Lomeli MD Consulting Physician Cardiology 12/23/21 Jairo Sparrow MD [address] [facility] [address] [place] [address] Consulting Physician Neurology 12/14/22 documented as of this encounter
--- OUTSIDE RECORDS SUMMARY | 2025-01-18 19:25 | XMS_ITS | Encounter Summary ---
Author Organization [facility] Address [address] [place] [address] Phone Care Team Providers Care Daytime Caregiver Name Role Phone Mark De Los Santos MD Unavailable Unavailable Rand Tsang MD Unavailable [phone] Kim Benavidez SUBWAREHOUSE SUPERVISOR, COPIER OPERATOR Primary Care Provider + Reason for Visit * Reason Onset Date Comments Medication Refill 01/17/2025 Encounter Details Date Type Department Care Team (Late st Contact Info) Description 01/17/2025 Refill [facility] - Family [facility] [address] [place] [address] Kim Benavidez, SUBWAREHOUSE SUPERVISOR, COPIER OPERATOR [address] [place] [address] Medication Refill Social History Tobacco Use Types [...] - 01/17/2025 12:48 PM CDT Spoke to [facility] yesterday - let them know pt gets these from cardio: Louie Tafoya MD. [facility] said they would request from cardiology. * Telephone Encounter - Alayna Bush MA - 01/17/2025 11:14 AM CDT [facility] requesting new scripts for: Clopidogrel 75 mg tabs Isosorbide Mononitrate 30 mg tabs Sr24Hr documented in this encounter Plan of Treatment Upcoming Encounters Date Type Department Care Team (Late st Contact Info) Description 02/19/2025 1:45 PM CDT Office Visit [facility] - Family [facility] [address] [place] [address] Kim Benavidez, SUBWAREHOUSE SUPERVISOR, COPIER OPERATOR [address] [place] [address] documented as of this encounter Visit Diagnoses Not on filedocumented in this encounter Additional Health Concerns Assessment Noted Time PHQ-9 Depression Total Score: 0 09/29/19 25 11:18 AM CDT documented as of this encounter Care Teams Daytime Caregiver Relationship Specialty Start Date End Date Kim Benavidez, SUBWAREHOUSE SUPERVISOR, COPIER OPERATOR [address] [place] [address] PCP - General Advanced Practice Nurse 09/28/24 Mark De Los Santos MD Consulting Physician Urology 09/05/15 Rand Tsang MD Consulting Physician Dermatopathology 01/16/18 documented as of this encounter
[2025-01-18 19:26] VITALS: BP 142/65; PULSE 52; RESP 20; TEMP 36.5; O2SAT 94
== END 2025-01-18 19:47 | disposition home or self-care (01) ==
LOC: ANHED 19:23
PROVIDERS: Emergency Provider Emergency Medicine
DX: M10.9 Gout, unspecified (principal); I65.29 Occlusion and stenosis of unspecified carotid artery; E03.9 Hypothyroidism, unspecified; E11.22 Type 2 diabetes mellitus with diabetic chronic kidney disease; I12.9 Hypertensive chronic kidney disease with stage 1 through stage 4 chronic kidney disease, or unspecified chronic kidney disease; N18.32 Chronic kidney disease, stage 3b; E11.42 Type 2 diabetes mellitus with diabetic polyneuropathy; N40.0 Benign prostatic hyperplasia without lower urinary tract symptoms; G47.30 Sleep apnea, unspecified; Z95.5 Presence of coronary angioplasty implant and graft; Z87.891 Personal history of nicotine dependence; Z79.02 Long term (current) use of antithrombotics/antiplatelets; Z79.82 Long term (current) use of aspirin; Z79.899 Other long term (current) drug therapy; Z79.84 Long term (current) use of oral hypoglycemic drugs
CPT/HCPCS: 99283; A9270

== ENCOUNTER 2025-04-20 11:48 | Emergency (ER) | payer MEDICARE, SELFPAY ==
[2025-04-20] VITALS (7 sets, daily range): BP systolic 181–218; BP diastolic 79–92; PULSE 62–78; RESP 17–30; TEMP 36.4–36.9; O2SAT 77–100
--- NOTE | ~2025-04-20 | CT_ITS ---
EXAMINATION: CT angiogram head and neck: DATE: 04/20/2025. INDICATION: 74-year-old male with dizziness, acute on chronic. TECHNIQUE: CT angiogram was performed with 100 cc of opaque 350. Initial noncontrast CT head was obtained. Postcontrast multiplanar and 3-D reconstruction images obtained. COMPARISON: MRI brain dated 10/12/2024. FINDINGS: No acute intracranial findings on the precontrast CT head. No ventriculomegaly or midline shift. On the postcontrast examination, the upper chest, evidence of cardiomegaly with congestive changes and right-sided pleural effusion. The right vertebral artery is patent. Left vertebral artery is not opacified. Calcific atherosclerotic changes at the proximal left internal carotid artery is noted producing a moderate 50-69% diameter disease. On the right side, partly calcified plaque is noted at the proximal right internal carotid artery producing a significant, 70-90% diameter stenosis. Vertebral basilar arteries are patent at the skull base. Thickened atherosclerotic disease of intracranial portion of internal carotid arteries. The anterior, middle cerebral arteries are patent on both sides. The dural venous sinuses are patent. IMPRESSION: 1. Right vertebral artery is patent. The left vertebral artery is nonopacified. 2. Calcified atherosclerotic plaque producing a moderate, 69 percent diameter disease of proximal left internal carotid artery. On the right side, a significant 70-90% atherosclerotic stenosis of the proximal right internal carotid artery is noted. 3. Moderately significant calcified atherosclerotic disease of intracranial portion of internal carotid arteries. The major intracranial arteries are patent. Dural venous sinuses are patent. Reviewed, dictated and finalized at location T. K CASHIER IMPRESSION: 1. Right vertebral artery is patent. The left vertebral artery is nonopacified. 2. Calcified atherosclerotic plaque producing a moderate, 69 percent diameter d isease of proximal left internal carotid artery. On the right side, a significa nt 70-90% atherosclerotic stenosis of the proximal right internal carotid arter y is noted. 3. Moderately significant calcified atherosclerotic disease of intracranial por tion of internal carotid arteries. The major intracranial arteries are patent. Dural venous sinuses are patent.
--- NOTE | ~2025-04-20 | XR_ITS ---
EXAMINATION: XR hip LT 2V w AP pelvis DATE: 04/20/2025 16:48 INDICATION: Trauma due to fall. TECHNIQUE: AP pelvis and left hip were obtained with portable radiograph.. COMPARISON: None. FINDINGS: Overall visualization in the portable x-ray is severely limited in this patient due to large body habitus. No definite acute fracture at the left hip. Arthritis of both hip joints. IMPRESSION: 1. Severely limited evaluation portable x-ray in this patient with extensive artifacts due to large body habitus. 2. No definite acute fracture at the left hip. Osteoarthritis of hip joints. If there is significant clinical suspicion of fracture, more definitive evaluation by CT scan is suggested. Reviewed, dictated and finalized at location T. [facility] [employer] IMPRESSION: 1. Severely limited evaluation portable x-ray in this patient with extensive ar tifacts due to large body habitus. 2. No definite acute fracture at the left hip. Osteoarthritis of hip joints. If there is significant clinical suspicion of fracture, more definitive evaluatio n by CT scan is suggested.
--- NOTE | ~2025-04-20 | XR_ITS ---
EXAMINATION: XR chest 1V portable DATE: 04/20/2025 19:33 INDICATION: Shortness of breath. TECHNIQUE: A single frontal view of the chest was obtained. COMPARISON: Chest x-ray dated 11/01/2024 FINDINGS: Cardiomegaly and atherosclerotic aorta. Congestive changes of lung bases are noted with blunting of costophrenic angle on the right side with perihilar airspace opacity in the right lung. Findings suggests mild congestive heart failure. Platelike atelectasis of right lung base. IMPRESSION: 1. Cardiomegaly and atherosclerotic changes of the aorta. 2. Congestive changes of lower lung muniz, right more than the left suggestive of mild degree of congestive heart failure. Reviewed, dictated and finalized at location T. [facility]NAL PSYCHIATRIC DIRECTOR
--- NOTE | ~2025-04-20 | XR_ITS ---
XR chest 1V portable 04/21/2025 01:19 Indication: Dyspnea Procedure: AP portable chest Comparison: Comparison to multiple prior studies sequentially, with oldest reviewed study dated 09/26/2024. Findings: Cardiomegaly with bilateral airspace disease which is unchanged compared with 04/20/2025. Small right pleural effusion. No pneumothorax. No acute osseous abnormality. Impression: 1: Stable bilateral airspace disease which may represent edema or pneumonia. 2: Cardiomegaly. 3: Small right pleural effusion. Reviewed, dictated and finalized at location O. FIGHTER Impression: 1: Stable bilateral airspace disease which may represent edema or pneumonia. 2: Cardiomegaly. 3: Small right pleural effusion.
--- OUTSIDE RECORDS SUMMARY | 2025-04-20 11:51 | XMS_ITS | Encounter Summary ---
Author Organization [facility] Address [address] [place] [address] Phone Care Team Providers Care Rn Labor Delivery Name Role Phone Mark De Los Santos MD Unavailable Unavailable Rand Tsang MD Unavailable Kim Benavidez APRN, RESPIRATORY SCIENTIST Primary Care Provider + Reason for Visit * Reason Onset Date Comments Advice Only 02/20/2025 Referral 02/20/2025 Encounter Details Date Type Department Care Team (Late st Contact Info) Description 02/20/2025 Telephone [facility] [address] [place] [id number] Kim Benavidez, DELIVERY ANALYST, RESPIRATORY SCIENTIST [address] [place] [address] Advice Only; Referral Social History Tobacco Use Types Packs/Day Years Used Date Smoking Tobacco: Former Cigarettes 25 1 961 - 1985 Smokeless Tobacco: Never Alcohol Use Standard Drinks/Week Comments No 0 (1 standard drink = 0.6 oz pur e alcohol) PHQ-2 Answer Date Recorded Total Score - Questions 1-9 0 09/01 Social Connection and Isolation Panel Answer Date Recorded In a typical week, how many times do you talk on the phone with family, friends, or neighbors? Patient declined 01/29/2025 How often do you get togethe r with friends or relatives? Patient declined 01/29/2025 How often do you attend mandaen or jehovah's witness serv ices? Patient declined 01/29/2025 Do you belong to any clubs o r organizations such as mandaen groups, unions, fraternal or athletic groups, or school groups? Patient declined 01/29/2025 How often do you attend meet ings of the clubs or organizations you belong to? Patient declined 01/29/2025 Are you , , di vorced, , never , or living with a partner? Patient declined 01/29/2025 AUDIT-C Answer Date Recorded Q1: How often do you have a drink containing alc ohol? Patient declined 01/29/2025 Q2: How many drinks containi ng alcohol do you have on a typical day when you are drinking? Patient declined 01/29/2025 Q3: How often do you have si x or more drinks on one occasion? Patient declined 01/29/2025 Overall Financial Resource Strain (CARDIA) Answe r Date Recorded How hard is it for you to pa y for the very basics like food, housing, medical care, and heating? Patient declined 01/29/2025 [facility] - Occupational Stress Questionnaire Answer Date Recorded Do you feel stress - tense, restless, nervous, or anxious, or unable to sleep at night because your mind is troubled all the time - these days? Patient declined 01/29/2025 Exercise Vital Sign Answer Date Recorde d On average, how many days pe r week do you engage in moderate to strenuous exercise (like a brisk walk)? Patient declined On average, how many minutes do you engage in exercise at this level? Patient declined 01/29/2025 Hunger Vital Sign Answer Date Recorded Within the past 12 months, y ou worried that your food would run out before you got the money to buy more. Patient declined Within the past 12 months, t he food you bought just didn't last and you didn't have money to get more. Patient declined PRAPARE - Transportation Answer Date Re corded In the past 12 months, has l ack of transportation kept you from medical appointments or from getting medications? Patient declined 01/29/2025 In the past 12 months, has l ack of transportation kept you from meetings, work, or from getting things needed for daily living? Patient declined 01/29/2025 Housing Stability Vital Sign Answer Víctor e Recorded In the last 12 months, was t here a time when you were not able to pay the mortgage or rent on time? Patient declined 01/30/20 25 In the past 12 months, how m any times have you moved where you were living? 1 01/29/2025 At any time in the past 12 m [facility], were you homeless or living in a chcf (including now)? Patient declined 01/29/2025 [facility] Utilities Answer Date Recorded In the past 12 months has th e electric, gas, oil, or water company threatened to shut off services in your home? Patient declined 01/29/2025 Sexually Active Control Partners Comments Yes Female Sex and Gender Information Value Date Recorded Sex Assigned at Not on file Legal Sex Male 11:59 PM CDT Gender Identity Not on file Sexual Orientation Not on file documented as of this encounter Functional Status * BP Answer Date of Assessment Author 158/68 02/21/2025 12:55 PM CDT Cynthia Lucero, ISABELL * Temp Answer Date of Assessment Author 97.2 02/21/2025 12:55 PM CDT Cynthia Lucero, RN * Pulse Answer Date of Assessment Author 76 02/21/2025 12:55 PM CDT Cynthia Lucero, RN * Resp Answer Date of Assessment Author 18 02/21/2025 12:55 PM CDT Cynthia Lucero, RN * SpO2 Answer Date of Assessment Author 94 02/21/2025 12:55 PM CDT Cynthia Lucero, RN documented as of this encounter Mental Status * BP Answer Entry Date Author 158/68 02/21/2025 12:55 PM CDT Cynthia Lucero, RN * Temp Answer Entry Date Author 97.2 02/21/2025 12:55 PM CDT Cynthia Lucero, RN * Pulse Answer Entry Date Author 76 02/21/2025 12:55 PM CDT Cynthia Lucero, RN * SpO2 Answer Entry Date Author 94 02/21/2025 12:55 PM CDT Cynthia Lucero RN documented in this encounter Miscellaneous Notes * Telephone Encounter - Yasmin Russo RN - 02/27/2025 3:59 PM CDT Situation: Referral Background: Jairo is contacting PCP office. See notes below. Assessment: Patient is calling back asking for update on requesting to be placed in a rehabilitation center. States his phone has not be working well so if he was called he may have missed it. States mobile phone is a good number to reach him. Recommendation: Patient asking for a call back for update. Please Advise. * Telephone Encounter - Kim Benavidez APRN, CNP - 02/22/2025 12:26 PM CDT Thank you for your help with this. * Telephone Encounter - Tiara Barnes RN - 02/20/2025 4:22 PM CDT Situation: Advice Background: Patient contacting PCP office. Seen PCP yesterday. Assessment: Wants to know how he goes about getting in to a rehabilitation center for physical deconditioning. Recommendation: Please advise patient on steps to get into a rehabilitation center for physical deconditioning. Encounter routed to provider to notify. Discussed utilizing [employer] to: discuss if they would prefer a Pixstahart message or phone call response. Response is preferred via Phone Call. documented in this encounter Plan of Treatment Upcoming Encounters Date Type Department Care Team (Late st Contact Info) Description 05/17/2025 2:30 PM COLOR CONTROL SUPERVISOR Office Visit [facility] [address] [place] [address] Kim Benavidez APRN, RESPIRATORY SCIENTIST [address] [place] [address] documented as of this encounter Visit Diagnoses Not on filedocumented in this encounter Additional Health Concerns Infection Onset Date Last Indicated Resolved Time Respiratory Rule-Out 02/25/2025 02/25/2025 025 4:57 PM CDT Respiratory Rule-Out 03/15/2025 03/15/2025 025 11:03 AM COLOR CONTROL SUPERVISOR Respiratory Rule-Out 04/18/2025 04/18/2025 025 1:07 AM COLOR CONTROL SUPERVISOR Assessment Noted Time PHQ-9 Depression Total Score: 0 09/29/19 11:18 AM CDT documented as of this encounter Care Teams Rn Labor Delivery Relationship Specialty Start Date End Date Kim Benavidez, DELIVERY ANALYST, RESPIRATORY SCIENTIST [address] [place] [address] PCP - General Advanced Practice Nurse 09/28/24 Mark De Los Santos MD Consulting Physician Urology 09/05/15 Rand Tsang MD Consulting Physician Dermatopathology 01/16/18 documented as of this encounter
--- OUTSIDE RECORDS SUMMARY | 2025-04-20 11:51 | XMS_ITS | Encounter Summary ---
Author Organization [facility] Healthcare Address [address] [place] [address] Care Team Providers Care School Guidance Counselor Name Role Phone Nicolas Jung MD Unavailable Louie Lomeli MD Unavailable [phone] Melchor Woodard MD Primary Care Provider [phone] Jairo Sparrow MD Unavailable [phone] Maria Eugenia Navarrete [facility] Unavailable [phone] Kim Benavidez NP Primary Care Provider [phone] Encounter Details Date Type Department Care Team (Late st Contact Info) Description 06/02/[address] [facility] [address] [place], [place] [id number] Jonathan Miranda MD [address] [place] [address] Social History Tobacco Use Types Packs/Day Years [...] week 02/04/2023 How often do you attend [facility] sa[facility] or mu-ism services? Never 02/04/2023 Do you belong to any clubs o r organizations such as samaritan groups, unions, fraternal or athletic groups, or [...] on file Legal Sex Male 12:23 AM RESPIRATORY CARE ASSISTANT Gender Identity Not on file Sexual [...] COVID: Suspected 06/12/2024 06/12/2024 06/12/2024 4:34 PM RESPIRATORY CARE ASSISTANT COVID: Suspected 07/30/2024 07/30/2024 07/30/2024 4:38 PM CDT documented as of this encounter Care Teams School Guidance Counselor Relationship Specialty Start Date End Date Melchor Woodard MD PCP - General Family Practice 07/30/22 02/07/25 Kim Benavidez NP [address] [place] [address] PCP - General Family Medicine 02/08/25 Nicolas Jung MD Surgeon Orthopedic Surgery 08/05/21 Louie Lomeli MD Consulting Physician Cardiology 12/23/21 Jairo Sparrow MD [address] [place] [address] [address] [place] [address] Consulting Physician Neurology 12/14/22 Maria Eugenia Navarrete, [address] [place] [address] Pharmacist Pharmacy 03/12/24 03/12/24 documented as of this encounter
--- OUTSIDE RECORDS SUMMARY | 2025-04-20 11:51 | XMS_ITS | Encounter Summary ---
Author Organization [facility] Healthcare Address [address] [place] [address] Care Team Providers Care Customer Service Cashier Name Role Phone Nicolas Jung MD Unavailable [phone] Louie Lomeli MD Unavailable [phone] Melchor Woodard MD Primary Care Provider [phone] Jairo Sparrow MD Unavailable Kim Benavidez NP Primary Care Provider [phone] Encounter Details Date Type Department Care Team (Late st Contact Info) Description 08/09/2024 Documentation [facility] Case Management [address] [place] [address] Rodriguez Goldstein, RN Social History Tobacco Use Types Packs/Day [...] any clubs o r organizations such as yazidi groups, unions, fraternal or athletic groups, or [...] or slept in a snf (including now)? No 08/29/2023 Housing Stability Vital Sign Answer Víctor e Recorded In the last 12 months, was t here a time when you were not able to pay the mortgage or rent on time? No 07/31/2024 In the past 12 months, how m any times have you moved where you were living? 1 07/31/2024 At any time in the past 12 m [facility], were you homeless or living in a snf (including now)? No 07/31/2024 Personal Safety Answer [...] on file Legal Sex Male 12:23 AM SUGARCANE RESEARCH TECHNICIAN Gender Identity Not on file Sexual Orientation Not on file documented as of this encounter Plan of Treatment Not on file documented as of this encounter Visit Diagnoses Not on filedocumented in this encounter Care Teams Customer Service Cashier Relationship Specialty Start Date End Date Melchor Woodard MD PCP - General Family Practice 07/30/22 02/07/25 Kim Benavidez NP [address] [place] [address] PCP - General Family Medicine 02/08/25 Nicolas Jung MD Surgeon Orthopedic Surgery 08/05/21 Louie Lomeli MD Consulting Physician Cardiology 12/23/21 Jairo Sparrow MD [address] [place] [address] [address] [place] [id number] Consulting Physician Neurology 12/14/22 documented as of this encounter
--- OUTSIDE RECORDS SUMMARY | 2025-04-20 11:51 | XMS_ITS | Encounter Summary ---
Author Organization [facility] Address [address] [place] [address] Phone Care Team Providers Care Buffet Runner Name Role Phone Mark De Los Santos MD Unavailable Unavailable Rand Tsang MD Unavailable [phone] Kim Benavidez DESULPHURING OPERATOR, INVESTMENT TRADER Primary Care Provider + Reason for Visit * Reason Onset Date Comments Advice Only 04/15/2025 Encounter Details Date Type Department Care Team (Late st Contact Info) Description 04/15/2025 Nurse Triage [facility] [address] [place] [id number] Kim Benavidez, DESULPHURING OPERATOR, INVESTMENT TRADER [address] [place] [address] Advice Only Social History Tobacco Use Types Packs/Day Years [...] with family, friends, or neighbors? Patient declined 03/19/2025 How often do you get togethe r with friends or relatives? Patient declined 03/19/2025 How often do you attend mu-ism or adventism serv ices? Patient declined 03/19/2025 Do you belong to any clubs o r organizations such as mu-ism groups, unions, fraternal or athletic groups, or school groups? Patient declined 03/19/2025 How often do you attend meet ings of the clubs or organizations you belong to? Patient declined 03/19/2025 Are you , , di vorced, , never , or living with a partner? Patient declined 03/19/2025 AUDIT-C Answer Date Recorded Q1: How often do you have a drink containing alc ohol? Patient declined 03/19/2025 Q2: How many drinks containi ng alcohol do you have on a typical day when you are drinking? Patient declined 03/19/2025 Q3: How often do you have si x or more drinks on one occasion? Patient declined 03/19/2025 Overall Financial Resource Strain (CARDIA) Answe r Date Recorded How hard is it for you to pa y for the very basics like food, housing, medical care, and heating? Patient declined 03/19/2025 [facility] - Occupational Stress Questionnaire Answer Date Recorded Do you feel stress - tense, restless, nervous, or anxious, or unable to sleep at night because your mind is troubled all the time - these days? Patient declined 03/19/2025 Exercise Vital Sign Answer Date Recorde d On average, how many days pe r week do you engage in moderate to strenuous exercise (like a brisk walk)? Patient declined On average, how many minutes do you engage in exercise at this level? Patient declined 03/19/2025 Hunger Vital Sign Answer Date Recorded Within [...] appointments or from getting medications? Patient declined 03/19/2025 In the past 12 months, has l ack of transportation kept you from meetings, work, or from getting things needed for daily living? Patient declined 03/19/2025 Housing Stability Vital Sign Answer Víctor e Recorded In the last 12 months, was t here a time when you were not able to pay the mortgage or rent on time? Patient declined 03/19/20 25 In the past 12 months, how m any times have you moved where you were living? 0 03/19/2025 At any time in the past 12 m [facility], were you homeless or living in a senior living (including now)? Patient declined 03/19/2025 [facility] Utilities Answer Date Recorded In the past 12 months has th e electric, gas, oil, or water company threatened to shut off services in your home? Patient declined 03/19/2025 Sexually Active Control Partners Comments Yes Female Sex and Gender Information Value Date Recorded Sex Assigned at Not on file Legal Sex Male 11:59 PM CDT Gender Identity Not on file Sexual Orientation Not on file documented as of this encounter Functional Status * Question Answer Date of Assessment Author Best Eye Response 4-->(E4) spontaneous 5 12:27 AM Deborah Peterson RN Best Verbal Response 5-->(V5) oriented 5 12:27 AM Deborah Peterson RN Best Motor Response 6-->(M6) obeys commands 04/01 12:27 AM Deborah Peterson RN [place] Coma Scale Score 15 04/18/2025 12:27 AM Deborah Peterson RN * Question Answer Date of Assessment Author Pain Description constant 04/18/2025 2:25 AM Stanley Aguilera, RN * Fish Fall Risk Question Answer Date of Assessment Author History of Falling, Immediat e or Within 3 Months 25 04/17/2025 11:51 PM Tre Chong, RN Secondary Diagnosis 15 04/17/2025 11:51 PM Tre Curry, odd ticket clerk Aid 15 04/17/2025 11:51 PM Tre Ye, RN Intravenous Therapy/Heparin Lock 0 04/17/20 11:51 PM Tre Chong, RN Gait/Transferring 10 04/17/2025 11:51 PM Tre Chong RN Mental Status 0 04/17/2025 11:51 PM Tre Coffey RN [place] Fall Risk Score 65 04/17/2025 11:51 PM Tre Chong, ISABELL * Question Answer Date of Assessment Author SpO2 93 04/18/2025 2:30 AM Stanley Fuentes RN O2 Device None (Room air) 04/17/2025 11:44 PM Tre Schaffer, ISABELL * Safety Factors Answer Date of Assessment Author ID band on;bed in low positi on;call light in reach 04/17/2025 11:51 PM Tre Chong, RN * Question Answer Date of Assessment Author Chest Pain Intervention cardiac biomarke rs drawn;cardiac monitoring continued;nurse monitoring placed;12-lead ECG obtained 04/18/2025 12:26 AM Deborah Peterson RN * Question Answer Date of Assessment Author BP 175/117 04/18/2025 2:30 AM Stanley Fuentes RN Temp 97.7 04/17/2025 11:44 PM Tre Morin RN Pulse 71 04/18/2025 2:30 AM YEISON Carpenter andStanley RN Resp 16 04/18/2025 2:15 AM Stanley Fuentes RN Heart Rate (Monitor) 72 04/18/2025 2:15 AM Stanley Rothman RN documented as of this encounter Mental Status * Question Answer Entry Date Author Best Eye Response 4-->(E4) spontaneous 5 12:27 AM Deborah Peterson RN Best Verbal Response 5-->(V5) oriented 5 12:27 AM Deborah Peterson RN Best Motor Response 6-->(M6) obeys commands 04/01 12:27 AM Deborah Peterson RN [place] Coma Scale Score 15 04/18/2025 12:27 AM Deborah Peterson RN * Question Answer Entry Date Author Pain Description constant 04/18/2025 2:25 AM Stanley Aguilera RN * Question Answer Entry Date Author SpO2 93 04/18/2025 2:30 AM GATHERING MACHINE FEEDER Pauline andStanley RN O2 Device None (Room air) 04/17/2025 11:44 PM GATHERING MACHINE FEEDER Tre Roque, ISABELL * Safety Factors Answer Entry Date Author ID band on;bed in low positi on;call light in reach 04/17/2025 11:51 PM GATHERING MACHINE FEEDER Tre Campos, RN * Question Answer Entry Date Author Chest Pain Intervention cardiac biomarke rs drawn;cardiac monitoring continued;nurse monitoring placed;12-lead ECG obtained 04/18/2025 12:26 AM GATHERING MACHINE FEEDER Deborah Allison RN * Question Answer Entry Date Author BP 175/117 04/18/2025 2:30 AM GATHERING MACHINE FEEDER Pauline andStanley RN Temp 97.7 04/17/2025 11:44 PM GATHERING MACHINE FEEDER Tre Porter, RN Pulse 71 04/18/2025 2:30 AM GATHERING MACHINE FEEDER Pauline andStanley RN documented in this encounter Miscellaneous Notes * Telephone Encounter - Radha Jules RN - 04/15/2025 1:53 PM CST Situation: Advice only Background: Patient contacting PCP office. Patient requesting any recommendations from Kim Benavidez APRN, CNP to prevent falling (see previous triage notes). Assessment: Not applicable Recommendation: Requested call back with provider recommendations ERING MACHINE FEEDER * Telephone Encounter - Verna Mcdaniels RN - 04/15/2025 11:06 AM GATHERING MACHINE FEEDER SITUATION: 74 y.o. with dizziness and fall BACKGROUND: Patient contacting PCP office. Symptoms started three days ago Has had a fall twenty minutes ago (while walking to the bathroom) Denies hitting head Per chart review, FELICITA 04/05/25 Feels clammy and too weak to stand Severe dizziness Caller declined highest disposition listed: Call EMS 911 Now. States he will go to ED but will havesomeone drive him. Advised that recommendation is for EMS, patient voiced understanding but continues to decline EMS Advised caller to bring cell phone and stop to call 911 for worsening symptoms during travel. Advised for patient to have another adult drive them to the ED. Encounter routed to provider high priority to notify. - Reason for Disposition: Shock suspected (e.g., cold/pale/clammy skin, too weak to stand) . Protocols Used: Falls and [id number] See care advice and disposition for Guideline. First positive answer recorded, all responses to prior questions were negative. If symptoms increase, change or if new symptoms develop, call your health care provider or call back. Recommendations were based on caller information and is not a diagnosis. Verified and reviewed all triage information with caller. ERING MACHINE FEEDER * Telephone Encounter - Noris Salazar - 04/15/2025 11:02 AM CST Symptoms: Dizziness, Fall Outcome: Warm transfer to an emergent RN NOW! Reason: Can't stand (unless normally can't stand) The caller accepted this outcome. ERING MACHINE FEEDER * Telephone Encounter - Marisa Clifford - 04/15/2025 9:23 AM CST Symptom: Foot or Ankle Pain - Not From Injury Outcome: Transfer to stone banker queue Reason: Trouble walking The caller accepted this outcome. ERING MACHINE FEEDER documented in this encounter Plan of Treatment Upcoming Encounters Date Type Department Care Team (Late st Contact Info) Description 05/17/2025 2:30 PM GATHERING MACHINE FEEDER Office Visit [facility] - Family Medicine [facility] [address] [place] [address] Kim Benavidez, DESULPHURING OPERATOR, INVESTMENT TRADER [address] [place] [address] documented as of this encounter Visit Diagnoses Not on filedocumented in this encounter Additional Health Concerns Infection Onset Date Last Indicated Resolved Time Respiratory Rule-Out 04/18/2025 04/18/2025 025 1:07 AM GATHERING MACHINE FEEDER Assessment Noted Time PHQ-9 Depression Total Score: 0 09/29/19 25 11:18 AM CDT documented as of this encounter Care Teams Buffet Runner Relationship Specialty Start Date End Date Kim Benavidez, DESULPHURING OPERATOR, INVESTMENT TRADER [address] [place] [address] PCP - General Advanced Practice Nurse 09/28/24 Mark De Los Santos MD Consulting Physician Urology 09/05/15 Rand Tsang MD Consulting Physician Dermatopathology 01/16/18 documented as of this encounter
--- OUTSIDE RECORDS SUMMARY | 2025-04-20 11:51 | XMS_ITS | Encounter Summary ---
Author Organization [facility] Address [address] [place] [address] Phone Care Team Providers Care Plaster And Stucco Worker Name Role Phone Mark De Los Santos MD Unavailable Unavailable Rand Tsang MD Unavailable Kim Benavidez APRN, E COMMERCE DIRECTOR Primary Care Provider + Reason for Visit * Reason Comments Medication Refill Encounter Details Date Type Department Care Team (Late st Contact Info) Description 04/02/2025 Refill [facility] Medical [facility] - Family Medicine [facility] [address] [place] [address] Kim Benavidez, ELSY, E COMMERCE DIRECTOR [address] [place] [address] Medication Refill Social History Tobacco Use Types [...] declined 03/19/2025 How often do you attend taoism or alevism serv ices? Patient declined 03/19/2025 Do you belong to any clubs o r organizations such as taoism groups, unions, fraternal or athletic groups, or [...] medical care, and heating? Patient declined 03/19/2025 [facility] - Occupational [...] any time in the past 12 m [facility], were you homeless or living in a detention (including now)? Patient declined 03/19/2025 [facility] Utilities Answer Date Recorded In the [...] * BP Answer Date of Assessment Author 130/78 04/05/2025 2:17 PM DIGITAL MARKETING APPRENTICE Gisselle Hurd * Temp Answer Date of Assessment Author 97.7 04/05/2025 2:17 PM DIGITAL MARKETING APPRENTICE Gisselle Hurd * Pulse Answer Date of Assessment Author 57 04/05/2025 2:17 PM DIGITAL MARKETING APPRENTICE Gisselle Hurd * Resp Answer Date of Assessment Author 18 04/05/2025 2:17 PM DIGITAL MARKETING APPRENTICE Gisselle Hurd * SpO2 Answer Date of Assessment Author 96 04/05/2025 2:17 PM DIGITAL MARKETING APPRENTICE Gisselle Hurd documented as of this encounter Mental Status * BP Answer Entry Date Author 130/78 04/05/2025 2:17 PM DIGITAL MARKETING APPRENTICE Gisselle Hurd * Temp Answer Entry Date Author 97.7 04/05/2025 2:17 PM DIGITAL MARKETING APPRENTICE Gisselle Hurd * Pulse Answer Entry Date Author 57 04/05/2025 2:17 PM DIGITAL MARKETING APPRENTICE Gisselle Hurd * SpO2 Answer Entry Date Author 96 04/05/2025 2:17 PM DIGITAL MARKETING APPRENTICE Gisselle Hurd documented in this encounter Miscellaneous Notes * Telephone Encounter - Daisha Norman RN - 04/03/2025 8:30 AM CST Name from pharmacy: MELOXICAM 7.5MG TABLET Will file in chart as: meloxicam (MOBIC) 7.5 MG Tablet The original prescription was discontinued on 01/30/2025 by Jimmy Lopez MD for the following reason: Therapy completed. TAL MARKETING APPRENTICE documented in this encounter Plan of Treatment Upcoming Encounters Date Type Department Care Team (Late st Contact Info) Description 05/17/2025 2:30 PM DIGITAL MARKETING APPRENTICE Office Visit [facility] Medical [facility] - Family [facility] [address] [place] [address] Kim Benavidez APRN, E COMMERCE DIRECTOR [address] [place] [address] documented as of this encounter Visit Diagnoses Not on filedocumented in this encounter Additional Health Concerns Infection Onset Date Last Indicated Resolved Time Respiratory Rule-Out 04/18/2025 04/18/2025 025 1:07 AM DIGITAL MARKETING APPRENTICE Assessment Noted Time PHQ-9 Depression Total Score: 0 09/29/19 25 11:18 AM CDT documented as of this encounter Care Teams Plaster And Stucco Worker Relationship Specialty Start Date End Date Kim Benavidez APRN, E COMMERCE DIRECTOR [address] [place] [address] PCP - General Advanced Practice Nurse 09/28/24 Mark De Los Santos MD Consulting Physician Urology 09/05/15 Rand Tsang MD Consulting Physician Dermatopathology 01/16/18 documented as of this encounter
--- OUTSIDE RECORDS SUMMARY | 2025-04-20 11:51 | XMS_ITS | Encounter Summary ---
Author Organization [facility] Address [address] [place] [address] Phone Care Team Providers Care Pumper Hand Name Role Phone Mark De Los Santos MD Unavailable Unavailable Rand Tsang MD Unavailable Kim Benavidez MANAGER VIDEO GAMES, CHARTER REPRESENTATIVE Primary Care Provider + Reason for Visit * Reason Onset Date Comments Extremity Weakness 04/06/2025 Encounter Details Date Type Department Care Team (Late st Contact Info) Description 04/06/2025 [facility] [address] [place] [id number] Kim Benavidez, MANAGER VIDEO GAMES, CHARTER REPRESENTATIVE [address] [place] [address] Extremity Weakness Social History Tobacco Use Types Packs/Day Years [...] declined 03/19/2025 How often do you attend jain or yarsanism serv ices? Patient declined 03/19/2025 Do you belong to any clubs o r organizations such as jain groups, unions, fraternal or athletic groups, or [...] medical care, and heating? Patient declined 03/19/2025 [facility] Occup[facility] ional Health - Occupational [...] any time in the past 12 m [facility], were you homeless or living in a halfway (including now)? Patient declined 03/19/2025 [facility] Utilities Answer Date Recorded In [...] encounter Miscellaneous Notes * Telephone Encounter - Chante Delcid RN - 04/06/2025 8:35 AM CST SITUATION: 74 y.o. with leg weakness BACKGROUND: Patient contacting PCP office. Per chart review, patient was seen in office yesterday for gout. Prescribed allopurinol- unable to pick pack worker prescription yet ASSESSMENT: Symptom Description / Location: Woke up this morning numbness bilateral knees down Difficulty walking with walker Patient reports he is afraid to fall Requesting RN to his house to assist from office Inquiring if someone could come to his house for massage Treatment / Response: No reported treatment. RECOMMENDATION: Patient/caller refuses disposition of: Call EMS 911 Now Reiterated the importance of following recommendation as symptoms could indicate a serious or life-threatening situation Patient response:will wait to see if weakness gets better. Patient reports if he falls he will contact 911. This RN inquired about contacting someone to get patient to the ED as patient was requesting no EMS sent to his residence. Patient reports he will see how he feels for the next hour and then will contact someone to take him to the ED if signs and symptoms not improved. Encounter routed to provider high priority to notify. - Reason for Disposition: [1] SEVERE weakness (e.g., unable to walk or barely able to walk, requires support) AND [2] new-onset or getting worse . Protocols Used: Weakness (Generalized) and Mdaxjca-D-ZE Weakness (Generalized) and Dsvwtle-K-CN See care advice and disposition for Guideline. First positive answer recorded, all responses to prior questions were negative. If symptoms increase, change or if new symptoms develop, call your health care provider or call back. Recommendations were based on caller information and is not a diagnosis. Verified and reviewed all triage information with caller. CTOR OF EXHIBIT DEVELOPMENT documented in this encounter Plan of Treatment Upcoming Encounters Date Type Department Care Team (Late st Contact Info) Description 05/17/2025 2:30 PM DIRECTOR OF EXHIBIT DEVELOPMENT Office Visit [facility] Medical Group - Family Medicine [facility] [address] [place] [address] Kim Benavidez APRN, CHARTER REPRESENTATIVE [address] [place] [address] documented as of this encounter Visit Diagnoses Not on filedocumented in this encounter Additional Health Concerns Infection Onset Date Last Indicated Resolved Time Respiratory Rule-Out 04/18/2025 04/18/2025 025 1:07 AM DIRECTOR OF EXHIBIT DEVELOPMENT Assessment Noted Time PHQ-9 Depression Total Score: 0 09/29/19 25 11:18 AM CDT documented as of this encounter Care Teams Pumper Hand Relationship Specialty Start Date End Date Kim Benavidez APRN, CHARTER REPRESENTATIVE [address] [place] [address] PCP - General Advanced Practice Nurse 09/28/24 Mark De Los Santos MD Consulting Physician Urology 09/05/15 Rand Tsang MD Consulting Physician Dermatopathology 01/16/18 documented as of this encounter
--- OUTSIDE RECORDS SUMMARY | 2025-04-20 11:51 | XMS_ITS | Encounter Summary ---
Author Organization [facility] Address [address] [place] [address] Care Team Providers Care Him Manager Name Role Phone Carlos Moran MD Primary Care Provider [phone] Kim Benavidez Primary Care Provider [phone] Encounter Details Date Type Department Care Team (Late st Contact Info) Description 04/13/2024 Lab Requisition [facility] [address] [place] [address] [place] [address] Social History Tobacco Use Types Packs/Day Years Used Date Smoking Tobacco: Former Smokeless Tobacco: Never Alcohol Use Standard Drinks/Week Comments No 0 (1 standard drink = 0.6 oz pur e alcohol) Sex and Gender Information Value Date Recorded Sex Assigned at Not on file Legal Sex Male 11:59 AM 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 Gender Identity Not on file Sexual Orientation Not on file documented as of this encounter Plan of Treatment Not on file documented as of this encounter Procedures Procedure Name Priority Date/Time Associated Diagnosis Comments TSH REFLEX FREE T4 STAT 04/13/2024 3: 21 PM 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 HEMOGLOBIN A1C STAT 04/13/2024 3:21 PM 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 CBC W AUTO DIFFERENTIAL STAT 04/13/2024 3:21 PM 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 COMPREHENSIVE METABOLIC PANEL STAT 04/13/2024 3:21 PM 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 LIPID PROFILE STAT 04/13/2024 3:21 PM 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 documented in this encounter Results * (ABNORMAL) HEMOGLOBIN A1C (04/13/2024 3:21 PM 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) Hemoglobin A1c 7.3(H) <5.7 % 04/13/2024 3:47 PM 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 [facility] Estimated Average Glucose 163 mg/dL 04/13/2024 3:47 PM 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 [facility] Blood BLOOD SPECIMEN / Unknown 04/13/2024 3:21 PM 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 04/13/2024 3:25 PM 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 Narrative [facility] - 04/13/2024 3:47 PM 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 HbA1c Interpretation: Normal: < 5.7% [...] LAB - CHEMISTRY ORDERABLES Holly lu Result [facility] [address] [place] [address] * (ABNORMAL) LIPID PROFILE (04/13/2024 3:21 PM 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) Cholesterol 173 <200 mg/dL 04/13/2024 3:48 PM 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 [facility] Triglycerides 179(H) <150 mg/dL 04/13/2024 3:48 PM 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 [facility] HDL Cholesterol 26(L) >40 mg/dL 3:48 PM 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 [facility] LDL Calculated 111 <130 mg/dL 04/13/2024 3:48 PM 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 [facility] VLDL Calculated 36(H) <=30 mg/dL 3:48 PM 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 [facility] Chol HDL Ratio 6.7(H) <4.5 04/13/2024 3:48 PM 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 [facility] LDL/HDL Ratio 4.3 <5.0 04/13/2024 3:48 PM 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 [facility] Blood BLOOD SPECIMEN / Unknown Venipuncture / Unknown 04/13/2024 3:21 PM 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 04/13/2024 3:25 PM 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 [facility] LAB - CHEMISTRY ORDERABLES Holly l Result Performing Organization Address [facility] Co de Phone Number [facility] [address] [place] [address] * TSH REFLEX FREE T4 (04/13/2024 3:21 PM 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) Pathologist [facility] TSH 3.335 0.350 - 4.940 uIU/mL 04/13/2024 4:06 PM [facility] Blood BLOOD SPECIMEN / Unknown Venipuncture / Unknown 04/13/2024 3:21 PM 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 04/13/2024 3:25 PM 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 [facility] LAB - CHEMISTRY ORDERABLES Holly l Result [facility] [address] [place] [address] * (ABNORMAL) COMPREHENSIVE METABOLIC PANEL (04/13/2024 3:21 PM 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) Glucose 193(H) 70 - 99 mg/dL 04/13/2024 3:48 PM 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 [facility] Sodium 140 136 - 145 mmol/L 04/13/2024 3:48 PM 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 [facility] Potassium 3.4(L) 3.5 - 5.1 mmol/L 04/13/2024 3:48 PM [facility] Chloride 104 98 - 107 mmol/L 04/13/2024 3:48 PM [facility] CO2 26 22 - 29 mmol/L 04/13/2024 3:48 PM [facility] Calcium 9.6 8.4 - 10.4 mg/dL 04/13/2024 3:48 PM [facility] Anion Gap 10 6 - 16 mmol/L 04/13/2024 3:48 PM [facility] BUN 21 7 - 26 mg/dL 04/13/2024 3:48 PM [facility] Creatinine 1.51(H) 0.72 - 1.25 mg/dL 04/13/2024 3:48 PM [facility] Alkaline Phosphatase 109 40 - 150 U/L 04/13/2024 3:48 PM [facility] ALT 14 0 - 55 U/L 04/13/2024 3:48 PM [facility] AST 13 5 - 34 U/L 04/13/2024 3:48 PM [facility] Protein Total 6.9 6.4 - 8.3 gm/dL 04/13/2024 3:48 PM [facility] Albumin 3.4 3.4 - 5.0 gm/dL 04/13/2024 3:48 PM [facility] Bilirubin Total 0.3 0.2 - 1.2 mg/dL 04/13/2024 3:48 PM [facility] eGFR by CKD-EPI 49(L) >=90 mL/min/1.7 3 m2 04/13/2024 3:48 PM [facility] Blood BLOOD SPECIMEN / Unknown Venipuncture / Unknown 04/13/2024 3:21 PM 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 04/13/2024 3:25 PM 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 [facility] LAB - CHEMISTRY ORDERABLES Holly l Result [facility] [address] [place] [address] * (ABNORMAL) CBC WITH DIFFERENTIAL (04/13/2024 3:21 PM 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) WBC 11.8(H) 4.0 - 10.7 x10E9/L 04/13/2024 3:32 PM [facility] RBC Count 4.77 4.30 - 5.80 x10E12/L 04/13/2024 3:32 PM [facility] Hemoglobin 13.9 13.3 - 17.5 g/dL 04/13/2024 3:32 PM [facility] Hematocrit 44.8 38.7 - 51.1 % 04/13/2024 3:32 PM [facility] MCV 93.9 80.0 - 98.0 fL 04/13/2024 3:32 PM [facility] MCH 29.1 26.7 - 33.6 pg 04/13/2024 3:32 PM [facility] MCHC 31.0(L) 31.7 - 36.3 g/dL 04/13/2024 3:32 PM [facility] RDW-CV 13.2 11.3 - 14.8 % 04/13/2024 3:32 PM [facility] Platelet Count 253 150 - 420 x10E9/L 04/13/2024 3:32 PM [facility] MPV 10.2 7.8 - 11.4 fL 04/13/2024 3:32 PM [facility] Neutrophil % 79.0(H) 41.0 - 74.0 % 04/13/2024 3:32 PM [facility] Lymphocyte % 10.8(L) 17.0 - 47.0 % 04/13/2024 3:32 PM [facility] Monocyte % 7.3 3.0 - 11.0 % 04/13/2024 3:32 PM [facility] Eosinophil % 1.5 0.0 - 7.0 % 04/13/2024 3:32 PM [facility] Basophil % 0.3 0.0 - 1.6 % 04/13/2024 3:32 PM [facility] Immature Granulocytes % 1.1(H) 0.0 - 1.0 % 04/13/2024 3:32 PM [facility] Neutrophil Absolute 9.32(H) 1.60 - 7.50 x10E9/L 04/13/2024 3:32 PM [facility] Lymphocyte Absolute 1.27 1.00 - 4.40 x10E9/L 04/13/2024 3:32 PM 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 [facility] Monocyte Absolute 0.86 0.15 - 1.00 x10E9/L 04/13/2024 3:32 PM 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 [facility] Eosinophil Absolute 0.18 0.00 - 0.60 x10E9/L 04/13/2024 3:32 PM 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 [facility] Basophil Absolute 0.04 0.00 - 0.13 x10E9/L 04/13/2024 3:32 PM 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 [facility] Blood BLOOD SPECIMEN / Unknown 04/13/2024 3:21 PM 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 04/13/2024 3:25 PM 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 Maged Mcdonnell LAB - HEMATOLOGY ORDERABLES Fin al Result Performing Organization Address City/State/[facility] Co de Phone Number [facility] [address] [place], [place] [id number] documented in this encounter Visit Diagnoses Not on filedocumented in this encounter Care Teams Him Manager Relationship Specialty Start Date End Date Carlos Moran MD PCP - General Internal Medicine 04/24/17 12/19/24 Kim Benavidez [address] [place] [address] PCP - General Manufacturing Mechanic 12/20/24 documented as of this encounter
--- OUTSIDE RECORDS SUMMARY | 2025-04-20 11:51 | XMS_ITS | Encounter Summary ---
Author Organization [facility] Healthcare Address [address] [place] [address] Care Team Providers Care Community Development Specialist Name Role Phone Nicolas Jung MD Unavailable [phone] Louie Lomeli MD Unavailable [phone] Melchor Woodard MD Primary Care Provider [phone] Jairo Sparrow MD Unavailable [phone] Maria Eugenia Navarrete [facility] Unavailable [phone] Kim Benavidez NP Primary Care Provider [phone] Encounter Details Date Type Department Care Team (Late st Contact Info) Description 06/02/2023 Telephone [facility] [address] [facility] [address] [place] [address] Jonathan Miranda MD [address] [place] [address] Social History Tobacco Use Types [...] week 02/04/2023 How often do you attend [facility] or anabaptist services? 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 HELPER Gender Identity Not on file Sexual Orientation [...] COVID: Suspected 06/12/2024 06/12/2024 06/12/2024 4:34 PM MACHINE HELPER COVID: Suspected 07/30/2024 07/30/2024 07/30/2024 4:38 PM CDT documented as of this encounter Care Teams Community Development Specialist Relationship Specialty Start Date End Date Melchor Woodard MD PCP - General Family Practice 07/30/22 02/07/25 Kim Benavidez NP [address] [place] [address] PCP - General Family Medicine 02/08/25 Nicolas Jung MD Surgeon Orthopedic Surgery 08/05/21 Louie Lomeli MD Consulting Physician Cardiology 12/23/21 Jairo Sparrow MD [address] [place] [address] [address] [place] [address] Consulting Physician Neurology 12/14/22 Maria Eugenia Navarrete, [address] [place] [address] Pharmacist Pharmacy 03/12/24 03/12/24 documented as of this encounter
--- OUTSIDE RECORDS SUMMARY | 2025-04-20 11:51 | XMS_ITS | Clinical Summary ---
Author Organization [facility] Address [address] [place] [address] Care Team Providers Care Rail Setter Name Role Phone Melchor Woodard MD Primary Care Provider [phone] Allergies Active Allergy Reactions Criticality Noted Date Comments Ceftriaxone Nausea and Vomiting Low 09/23/2021 Unuwmof-Uxh-Njs Reductase Inhibitors Other (See Comments) Low 01/26/2018 [...] 03/18/2020, 02/02/2019, Additional history exists COVID-19 Vaccine (2024-2 6 season) 2024 03/25/2021, 07/08/2020, 06/10/2020 RSV VACCINE (60+ or ) (1 - 1-dose 75+ series) 2027 DTAP/TDAP/TD VACCINES (3 - T d or Tdap) 02/12/2030 02/13/2020, 12/11/2015 PNEUMOCOCCAL VACCINE 50+ YEARS Completed 09/27/2017 , 03/12/2016 ZOSTER VACCINE Completed 03/19/2020, 11/2018, 03/27/[address] [place] [address] Care Teams Rail Setter Relationship Specialty Start Date End Date Melchor Woodard MD PCP - General Family Practice 09/28/22
--- OUTSIDE RECORDS SUMMARY | 2025-04-20 11:51 | XMS_ITS | Encounter Summary ---
Author Organization [facility] Address [address] [place] [address] Phone Care Team Providers Care Construction Management Assistant Name Role Phone Mark De Los Santos MD Unavailable Unavailable Rand Tsang MD Unavailable Kim Benavidez DISTRESSER, MANAGER OF DRILLING Primary Care Provider + Mita Lopez RN Unavailable Unavailable Reason for Visit * Reason Onset Date Comments Advice Only 10/08/2024 Dizziness 10/08/2024 Encounter Details Date Type Department Care Team (Late st Contact Info) Description 10/08/2024 Nurse Triage [facility] [address] [place] [phone] Kim Benavidez, DISTRESSER, MANAGER OF DRILLING [address] [place] [address] Advice Only; Dizziness Social History Tobacco Use [...] * BP Answer Date of Assessment Author 124/68 10/10/2024 10:11 AM CDT Scroggin s, Evie L, RMA * Temp Answer Date of Assessment Author 96.9 10/10/2024 10:11 AM CDT Scroggin s, Evie L, RMA * Pulse Answer Date of Assessment Author 60 10/10/2024 10:11 AM CDT Scroggin s, Evie L, RMA * Resp Answer Date of Assessment Author 20 10/10/2024 10:11 AM CDT Scroggin s, Evie L, RMA * SpO2 Answer Date of Assessment Author 96 10/10/2024 10:11 AM CDT Scroggin s, Evie L, RMA documented as of this encounter Mental Status * BP Answer Entry Date Author 124/68 10/10/2024 10:11 AM CDT Scroggin s, Evie L, RMA * Temp Answer Entry Date Author 96.9 10/10/2024 10:11 AM CDT Scroggin s, Evie L, RMA * Pulse Answer Entry Date Author 60 10/10/2024 10:11 AM CDT Scroggin s, Evie L, RMA * SpO2 Answer Entry Date Author 96 10/10/2024 10:11 AM CDT Scroggin s, Evie L, RMA documented in this encounter Miscellaneous Notes * [...] * Telephone Encounter - Kim Benavidez APRN, NATE - 10/09/2024 1:01 PM CDT I would [...] st Contact Info) Description 05/17/2025 2:30 PM GRINDING MACHINE TENDER Office Visit [facility] - [facility] [address] [place] [address] Kim Benavidez, DISTRESSER, MANAGER OF DRILLING [address] [place] [address] documented as of this encounter Visit Diagnoses Not on filedocumented in this encounter Additional Health Concerns Infection Onset Date Last Indicated Resolved Time Respiratory Rule-Out 01/29/2025 01/29/2025 025 1:05 PM CDT Respiratory Rule-Out 02/25/2025 02/25/2025 025 4:57 PM CDT Respiratory Rule-Out 03/15/2025 03/15/2025 025 11:03 AM GRINDING MACHINE TENDER Respiratory Rule-Out 04/18/2025 04/18/2025 025 1:07 AM GRINDING MACHINE TENDER Assessment Noted Time PHQ-9 Depression Total Score: 0 09/29/19 11:18 AM CDT documented as of this encounter Care Teams Construction Management Assistant Relationship Specialty Start Date End Date Kim Benavidez, DISTRESSER, MANAGER OF DRILLING [address] [place] [address] PCP - General Advanced Practice Nurse 09/28/24 Mark De Los Santos MD Consulting Physician Urology 09/05/15 Rand Tsang MD Consulting Physician Dermatopathology 01/16/18 Mita Lopez, RN [place] Nurse Manager Inventory Management 02/01/25 02/14/25 documented as of this encounter
--- OUTSIDE RECORDS SUMMARY | 2025-04-20 11:51 | XMS_ITS | Encounter Summary ---
Author Organization [facility] Address [address] [place] [address] Phone Care Team Providers Care Stroboscope Operator Name Role Phone Mark De Los Santos MD Unavailable Unavailable Rand Tsang MD Unavailable Kim Benavidez NUISANCE ANIMAL DAMAGE CONTROL AGENT, DRILL PRESS HAND Primary Care Provider + Mita Lopez RN Unavailable Unavailable Reason for Visit * Reason Comments Medication Refill Encounter Details Date Type Department Care Team (Late st Contact Info) Description 01/26/2025 Refill [facility] Medical Group - Family Medicine [facility] [address] [place] [id number] Kim Benavidez, NUISANCE ANIMAL DAMAGE CONTROL AGENT, DRILL PRESS HAND [address] [place] [address] Medication Refill Social History Tobacco Use Types [...] declined 01/29/2025 How often do you attend adventist or sabianism serv ices? Patient declined 01/29/2025 Do you belong to any clubs o r organizations such as adventist groups, unions, fraternal or athletic groups, or [...] medical care, and heating? Patient declined 01/29/2025 [facility] - Occupational [...] any time in the past 12 m [facility], were you homeless or living in a penitentiary (including now)? Patient declined 01/29/2025 [facility] Utilities Answer Date Recorded In the [...] * Question Answer Date of Assessment Author Isolation Precautions precautions maintained 8:00 PM Shania Olguin, ISABELL * Question Answer Date of Assessment Author Pain Description constant;prickling;o th er (see comments) 01/29/2025 8:00 PM Shania Olguin, threader operator Interventions care clustered;pillow support provided;position adjusted;quiet environment facilitated;relaxation techniques promoted 01/29/2025 8:00 PM Shania Olguin, RN * Question Answer Date of Assessment Author VTE Prevention/Management other (see comments) 01/29/2025 8:00 PM Shania Olguin, RN * Fish Fall Risk Question Answer Date of Assessment Author History of Falling, Immediat e or Within 3 Months 25 01/29/2025 4:39 PM Edyta Pal, RN Secondary Diagnosis 01/29/2025 4:39 PM Edyta Pratt, field hand Aid 01/29/2025 4:39 PM Edyta Burt, RN Intravenous Therapy/Heparin Lock 01/30/20 4:39 PM Edyta Pal, RN Gait/Transferring 01/29/2025 4:39 PM CDT Edyta Hdez, RN Mental Status 0 01/29/2025 4:39 PM CDT Edyta Sorenson, ISABELL Fish Fall Risk Score 95 01/29/2025 4:39 PM CDT Edyta Hdez, RN * Question Answer Date of Assessment Author Initial Score 0 01/29/2025 4:39 PM CDT Edyta Sorenson, RN Little interest or pleasure in doing things Not at all 01/29/2025 4:39 PM NAHIDT Edyta Hdez, RN Feeling down, depressed, or hopeless Not at all 01/29/2025 4:39 PM CDT Edyta Hdez, RN * Question Answer Date of Assessment Author BP 168/80 01/29/2025 8:[address], RN Temp 97.7 01/29/2025 8:[address], RN Pulse 61 01/29/2025 8:[address], RN Resp 18 01/29/2025 9:57 PM CDT Madhuri Quintero, TOW BAR DRIVER Heart Rate (Monitor) 59 01/29/2025 9:57 PM C DT Madhuri Quintero, TOW BAR DRIVER * Question Answer Date of Assessment Author [address] 01/29/2025 6:28 PM CDT Alejandra Brown, RN * Question Answer Date of Assessment Author SpO2 95 01/29/2025 9:57 PM CDT Madhuri Quintero, TOW BAR DRIVER * Safety Factors Answer Date of Assessment Author bed in low position;call lig ht in reach 01/29/2025 8:00 PM NAHIDT Shania Ray, RN * Question Answer Date of Assessment Author Best Eye Response 4-->(E4) spontaneous 01/29/2025 8:00 PM Shania Olguin, RN Best Verbal Response 5-->(V5) oriented 01/29/2025 8:00 PM Shania Olguin, RN Best Motor Response 6-->(M6) obeys commands 01/29/2025 8:00 PM Shania Olguin, RN Russell Coma Scale Score 15 01/29/2025 8:00 PM Shania Olguin, RN * Question Answer Date of Assessment Author (0-10) Chest Pain Severity Rating 0 01/29/2025 5:30 PM Edyta Pal RN Chest Pain Intervention cardiac monitori ng continued 01/29/2025 8:00 PM Shania Olguin, RN * Question Answer Date of Assessment Author Sensory Perception 3-->slightly limited 01/29/2025 8:0 0 PM Shania Olguin, ISABELL Friction and Shear 3-->no apparent problem 01/29/2025 8:00 PM NAHIDT Shania Ray, RN Moisture 4-->rarely moist 01/29/2025 8:00 PM NAHIDT Shania Lopez, ISABELL Elmer Score 20 01/29/2025 8:[address], RN Nutrition 4-->excellent 01/29/2025 8:00 PM CDT Shania Neal, RN Activity 3-->walks occasionally 01/29/2025 8:00 PM Shania Olguin, RN Mobility 3-->slightly limited 01/29/2025 8:00 PM C DT Shania Ray, RN * Question Answer Date of Assessment Author In the past 12 months has the [employer], gas, oil, or water [employer] threatened to shut off services in your home? Patient declined 01/29/2025 4:41 PM Edyta Pal, ISABELL * Question Answer Date of Assessment Author In the last 12 months, was there a time when you were not able to pay the mortgage or rent on time? Patient declined 01/29/2025 4:41 PM Edyta Pal RN In the past 12 months, how many times have you moved where you were living? 1 01/29/2025 4:41 PM Edyta Pal RN At any time in the past 12 months, were you homeless or living in a penitentiary (including now)? Patient declined 01/29/2025 4:41 PM Virginia Pal, RN * Question Answer Date of Assessment Author Within the past 12 months, you worried that your food would run out before you got the money to buy more. Patient declined 01/29/2025 4:41 PM Edyta Pal, ISABELL Within the past 12 months, the food you bought just didn't last and you didn't have money to get more. Patient declined 01/29/2025 4:41 PM Edyta Pal, RN * AUDIT-C Score Answer Date of Assessment Author -1 01/29/2025 4:41 PM Edyta Pal, RN * Question Answer Date of Assessment Author How hard is it for you to pay for the very basics like food, housing, medical care, and heating? Patient declined 01/29/2025 4:41 PM Edyta Pal, RN * Question Answer Date of Assessment Author In the past 12 months, has lack of transportation kept you from medical appointments or from getting medications? Patient declined 01/29/2025 4:41 PM Edyta Pal , RN In the past 12 months, has lack of transportation kept you from meetings, work, or from getting things needed for daily living? Patient declined 01/29/2025 4:41 PM Edyta Pal, RN * Question Answer Date of Assessment Author Do you feel stress - tense, restless, nervous, or anxious, or unable to sleep at night because your mind is troubled all the time - these days? Patient declined 01/29/2025 4:41 PM Edyta Pal, RN * Alcohol Use Question Answer Date of Assessment Author Q1: How often do you have a drink containing alcohol? Patient declined 01/29/2025 4:41 PM Edyta Pal, RN Q2: How many drinks containing alcohol do you have on a typical day when you are drinking? Patient declined 01/29/2025 4:41 PM Edyta Pal, RN Q3: How often do you have six or more drinks on one occasion? Patient declined 01/29/2025 4:41 PM Edyta Pal, RN * Question Answer Date of Assessment Author O2 Device None (Room air) 01/29/2025 9:57 PM Madhuri Birch, ABDELRAHMAN * Question Answer Date of Assessment Author Pain Description constant;prickling;o th er (see comments) 01/29/2025 8:00 PM Shania Olguin, RN * Question Answer Date of Assessment Author Initial Score 0 01/29/2025 4:39 PM CDT Edyta Sorenson, ISABELL Little interest or pleasure in doing things Not at all 01/29/2025 4:39 PM Edyta Pal, ISABELL Feeling down, depressed, or hopeless Not at all 01/29/2025 4:39 PM Edyta Pal, RN * Question Answer Date of Assessment Author Sensory Perception 3-->slightly limited 01/29/2025 8:0 0 PM CDT Shania Ray, ISABELL Friction and Shear 3-->no apparent problem 01/29/2025 8:00 PM CDT Shania Ray, RN Moisture 4-->rarely moist 01/29/2025 8:00 PM CDT Shania Lopez RN Elmer Score 20 01/29/2025 8:[address], RN Nutrition 4-->excellent 01/29/2025 8:00 PM CDT Shania Neal, RN Activity 3-->walks occasionally 01/29/2025 8:00 PM Shania Olguin, RN Mobility 3-->slightly limited 01/29/2025 8:00 PM C Shania Apple, RN * Over the past 2 weeks, how often have you been bothered by any of the following problems? Question Answer Date of Assessment Author Patient Health Questionnaire -2 Score 0 01/29/2025 4:39 PM Edyta Pal, RN * Question Answer Date of Assessment Author In the past 12 months has the [employer], [employer], or water [employer] threatened to shut off services in your home? Patient declined 01/29/2025 4:41 PM Edyta Pal, RN * Question Answer Date of Assessment Author In the last 12 months, was there a time when you were not able to pay the mortgage or rent on time? Patient declined 01/29/2025 4:41 PM Edyta Pal, RN In the past 12 months, how many times have you moved where you were living? 1 01/29/2025 4:41 PM Edyta Pal, RN At any time in the past 12 months, were you homeless or living in a penitentiary (including now)? Patient declined 01/29/2025 4:41 PM Virginia Pal RN * Question Answer Date of Assessment Author Within the past 12 months, you worried that your food would run out before you got the money to buy more. Patient declined 01/29/2025 4:41 PM Edyta Pal RN Within the past 12 months, the food you bought just didn't last and you didn't have money to get more. Patient declined 01/29/2025 4:41 PM Edyta Pal RN * AUDIT-C Score Answer Date of Assessment Author -1 01/29/2025 4:41 PM Edyta Pal RN * Question Answer Date of Assessment Author How hard is it for you to pay for the very basics like food, housing, medical care, and heating? Patient declined 01/29/2025 4:41 PM Edyta Pal RN * Question Answer Date of Assessment Author In the past 12 months, has lack of transportation kept you from medical appointments or from getting medications? Patient declined 01/29/2025 4:41 PM Edyta Pal RN In the past 12 months, has lack of transportation kept you from meetings, work, or from getting things needed for daily living? Patient declined 01/29/2025 4:41 PM Edyta Pal RN * Question Answer Date of Assessment Author Do you feel stress - tense, restless, nervous, or anxious, or unable to sleep at night because your mind is troubled all the time - these days? Patient declined 01/29/2025 4:41 PM Edyta Pal RN * Alcohol Use Question Answer Date of Assessment Author Q1: How often do you have a drink containing alcohol? Patient declined 01/29/2025 4:41 PM Edyta Pal RN Q2: How many drinks containing alcohol do you have on a typical day when you are drinking? Patient declined 01/29/2025 4:41 PM Edyta Pal RN Q3: How often do you have six or more drinks on one occasion? Patient declined 01/29/2025 4:41 PM Edyta Pal RN documented as of this encounter Mental Status * Question Answer Entry Date Author Isolation Precautions precautions maintained 8:00 PM CDT Shania Ray, RN * Question Answer Entry Date Author Pain Description constant;prickling;o the r (see comments) 01/29/2025 8:00 PM Shania Olguin, threader operator Interventions care clustered;pillow support provided;position adjusted;quiet environment facilitated;relaxation techniques promoted 01/29/2025 8:00 PM Shania Olguin, RN * Question Answer Entry Date Author VTE Prevention/Management other (see comments) 01/29/2025 8:00 PM CDT Shania Ray, RN * Question Answer Entry Date Author Initial Score 0 01/29/2025 4:39 PM CDT Rio newman July Scott, RN Little interest or pleasure in doing things Not at all 01/29/2025 4:39 PM CDT Edyta Hdez, ISABELL Feeling down, depressed, or hopeless Not at all 01/29/2025 4:39 PM CDT Lemuel Edyta Scott, RN * Question Answer Entry Date Author BP 168/80 01/29/2025 8:[address], RN Temp 97.7 01/29/2025 8:[address], RN Pulse 61 01/29/2025 8:[address], ISABELL * Question Answer Entry Date Author SpO2 95 01/29/2025 9:57 PM CDT Madhuri Quintero RRT * Safety Factors Answer Entry Date Author bed in low position;call lig ht in reach 01/29/2025 8:00 PM CDT Shania Ray, ISABELL * Question Answer Entry Date Author Best Eye Response 4-->(E4) spontaneous 5 8:00 PM Shania Olguin, ISABELL Best Verbal Response 5-->(V5) oriented 5 8:00 PM Shania Olguin, ISABELL Best Motor Response 6-->(M6) obeys commands 01/02 8:00 PM Shania Olguin, ISABELL Russell Coma Scale Score 15 01/29/2025 8:00 PM NAHIDT Shania Ray, RN * Question Answer Entry Date Author (0-10) Chest Pain Severity Rating 0 01/29/2025 5:30 PM CDT Edyta Hdez RN Chest Pain Intervention cardiac monitori ng continued 01/29/2025 8:00 PM CDT Shania Ray, RN * Question Answer Entry Date Author Sensory Perception 3-->slightly limited 01/30/20 8:00 PM CDT Shania Ray, ISABELL Friction and Shear 3-->no apparent problem 01/29 8:00 PM CDT Shania Ray, RN Moisture 4-->rarely moist 01/29/2025 8:00 PM CDT Shanai Ray, RN Elmer Score 20 01/29/2025 8:00 PM CDT Shania Ray, RN Nutrition 4-->excellent 01/29/2025 8:00 PM CDT Shania Ray, RN Activity 3-->walks occasionally 8:00 PM NAHIDT Shania Ray, RN Mobility 3-->slightly limited 01/29/2025 8:00 PM CDT Shania Ray, RN * Question Answer Entry Date Author O2 Device None (Room air) 01/29/2025 9:57 PM CDT Madhuri Siegel, TOW BAR DRIVER documented in this encounter Miscellaneous Notes * Telephone Encounter - Daisha Norman RN - 01/28/2025 8:28 AM CDT Medication failed the protocol, provider to review and approve the medication order if appropriate. Requested Prescriptions Pending Prescriptions Disp Refills nystatin (MYCOSTATIN) 121809 UNIT/ML Suspension [Pharmacy Med Name: NYSTATIN [id number] SUSPENSION] 200mL 0 Sig: TAKE FIVE (5) ML BY MOUTH FOUR (4) TIMES DAILY FOR 10 DAYS. APPLY TO INSIDE OF EACH CHEEK. Not Delegated - Off Protocol Failed - 01/28/2025 8:28 AM Failed - This refill cannot be delegated Failed - Active on medication list Passed - Visit with relevant provider in past 12 months or upcoming 90 days Recent Visits Date Type Provider Dept 01/09/25 Office Visit Briana Solis, NUISANCE ANIMAL DAMAGE CONTROL AGENT, DRILL PRESS HAND [facility] 12/25/24 Office Visit Kim [facility]avidez APRN, [facility] 12/14/24 Office Visit Carlos Escobedo APRN, [facility] 10/10/24 Office Visit Jairo Kelly MD [facility] 09/28/24 Office Visit Kim Benavidez APRN, [facility] Showing recent visits within past 365 days and meeting all other requirements Future Appointments Date Type Provider Dept 02/19/25 Appointment Kim Benavidez APRN, [facility] Showing future appointments within next 90 days and meeting all other requirements documented in this encounter Plan of Treatment Upcoming Encounters Date Type Department Care Team (Late st Contact Info) Description 05/17/2025 2:30 PM CASING [facility]OWER Office Visit [facility] Medical Group - Family [facility] [address] [place] [address] Kim Benavidez APRN, DRILL PRESS HAND [address] [place] [address] documented as of this encounter Visit Diagnoses Diagnosis Thrush Candidiasis of mouth documented in this encounter Additional Health Concerns Infection Onset Date Last Indicated Resolved Time Respiratory Rule-Out 01/29/2025 01/29/2025 025 1:05 PM CDT Respiratory Rule-Out 02/25/2025 02/25/2025 025 4:57 PM CDT Respiratory Rule-Out 03/15/2025 03/15/2025 025 11:03 AM CASING BLOWER Respiratory Rule-Out 04/18/2025 04/18/2025 025 1:07 AM CASING BLOWER Assessment Noted Time PHQ-9 Depression Total Score: 0 09/29/19 11:18 AM CDT documented as of this encounter Care Teams Stroboscope Operator Relationship Specialty Start Date End Date Kim Benavidez APRN, NATE [address] [place] [address] PCP - General Advanced Practice Nurse 09/28/24 Mark De Los Santos MD Consulting Physician Urology 09/05/15 Rand Tsang MD Consulting Physician Dermatopathology 01/16/18 Mita Lopez RN [place] Nurse Commercial Carpet Installer 02/01/25 02/14/25 documented as of this encounter
--- OUTSIDE RECORDS SUMMARY | 2025-04-20 11:51 | XMS_ITS | Clinical Summary ---
Author Organization [facility] [employer] Address [address] [place] [address] Care Team Providers Care Petrographer Name Role Phone Pramod Kim Barker Primary Care Provider [phone] Source Comments [facility] [employer]non-owned Affiliates and Associated Physician Practices is amultiple site organization consisting of ambulatory clinics and hospital sitesin [place], [place], [place] and [place]. This disclosure is being madepursuant to the Care Everywhere program and may not contain all information available regarding this patient. Last updated 18.[facility] [employer] Allergies No known active allergies Medications * [...] on file Legal Sex Male 11:59 AM [facility] Gender Identity Not on file Sexual Orientation Not on file Last Filed Vital Signs Vital Sign Reading Time Taken Comments Blood Pressure 136/78 04/24/2017 10:32 AM [facility] Pulse 78 04/24/2017 10:32 AM [facility] Temperature 36.8 C (98.2 F) 04/24/2017 10:32 AM [facility] Respiratory Rate - - Oxygen Saturation - - Inhaled Oxygen Concentration - - Weight 104.8 kg (231 lb) 04/24/2017 10:32 AM [facility] Height 177.8 cm (5' 10) 04/24/2017 10:32 AM [facility] Body Mass Index 33.15 04/24/2017 10:32 AM [facility] Plan of Treatment Health Maintenance Due Date [...] Additional history exists INFLUENZA VACCINE (#1) 2024 1, 03/19/2020, 03/18/2020, Additional history exists Respiratory Syncytial Virus (RSV) Vaccine Pt: or over 60 yrs (1 - 1-dose 75+ series) 2027 LIPID TESTING 10/08/2029 10/08/2024, 04/13/2024 HEPATITIS B VACCINE Aged Out No [...] Comments LIPID PROFILE STAT 04/13/2024 3:21 PM [facility] from Last 3 Months or Most Recently Relevant to Health Maintenance Results * (ABNORMAL) LIPID PROFILE (04/13/2024 3:21 PM [facility]) Cholesterol 173 <200 mg/dL 04/13/2024 3:48 PM [facility] Triglycerides 179(H) <150 mg/dL 04/13/2024 3:48 PM [facility] HDL Cholesterol 26(L) >40 mg/dL 4 3:48 PM [facility] LDL Calculated 111 <130 mg/dL 04/13/2024 3:48 PM [facility] VLDL Calculated 36(H) <=30 mg/dL 4 3:48 PM [facility] Chol HDL Ratio 6.7(H) <4.5 04/13/2024 3:48 PM [facility] LDL/HDL Ratio 4.3 <5.0 04/13/2024 3:48 PM [facility] Blood BLOOD SPECIMEN / Unknown Venipuncture / Unknown 04/13/2024 3:21 PM [facility] 04/13/2024 3:25 PM [facility] - CHEMISTRY ORDERABLES Holly l Result [facility] [address] [place] [address] from Last 3 Months or Most Recently Relevant to Health Maintenance Insurance MEDICARE [facility] MANAGED MEDICARE ADV Care Teams Petrographer Relationship Specialty Start Date End Date Kim Benavidez [address] [place] [address] PCP - General Auto Engine Mechanic 12/20/24
--- OUTSIDE RECORDS SUMMARY | 2025-04-20 11:51 | XMS_ITS | Encounter Summary ---
Author Organization [facility] Address [address] [place] [address] Phone Care Team Providers Care Procurement Agent Name Role Phone Mark De Los Santos MD Unavailable Unavailable Rand Tsang MD Unavailable Kim Benavidez MONOTYPE OPERATOR, HEATING REPAIR TECHNICIAN Primary Care Provider + Reason for Visit * Reason Onset Date Comments Advice Only 04/04/2025 Encounter Details Date Type Department Care Team (Late st Contact Info) Description 04/04/2025 Telephone [facility] [address] [place] [id number] Kim Benavidez, MONOTYPE OPERATOR, HEATING REPAIR TECHNICIAN [address] [place] [address] Advice Only Social History Tobacco Use Types [...] declined 03/19/2025 How often do you attend anglican or restorationist serv ices? Patient declined 03/19/2025 Do you belong to any clubs o r organizations such as anglican groups, unions, fraternal or athletic groups, or [...] medical care, and heating? Patient declined 03/19/2025 [facility] - Occupational Stress [...] any time in the past 12 m [facility], were you homeless or living in a alf (including now)? Patient declined 03/19/2025 [facility] Utilities Answer Date Recorded In [...] of Assessment Author 130/78 04/05/2025 2:17 PM AGRICULTURAL EQUIPMENT SALES MANAGER Gisselle Hurd * Temp Answer Date of Assessment Author 97.7 04/05/2025 2:17 PM AGRICULTURAL EQUIPMENT SALES MANAGER Gisselle Hurd * Pulse Answer Date of Assessment Author 57 04/05/2025 2:17 PM AGRICULTURAL EQUIPMENT SALES MANAGER Gisselle Hurd * Resp Answer Date of Assessment Author 18 04/05/2025 2:17 PM AGRICULTURAL EQUIPMENT SALES MANAGER Gisselle Hurd * SpO2 Answer Date of Assessment Author 96 04/05/2025 2:17 PM AGRICULTURAL EQUIPMENT SALES MANAGER Gisselle Hurd documented as of this encounter Mental Status * BP Answer Entry Date Author 130/78 04/05/2025 2:17 PM AGRICULTURAL EQUIPMENT SALES MANAGER Gisselle Hurd * Temp Answer Entry Date Author 97.7 04/05/2025 2:17 PM AGRICULTURAL EQUIPMENT SALES MANAGER Gisselle Hurd * Pulse Answer Entry Date Author 57 04/05/2025 2:17 PM AGRICULTURAL EQUIPMENT SALES MANAGER Gisselle Hurd * SpO2 Answer Entry Date Author 96 04/05/2025 2:17 PM AGRICULTURAL EQUIPMENT SALES MANAGER Gisselle Hurd documented in this encounter Miscellaneous Notes * Telephone Encounter - Anita Barth RN - 04/04/2025 4:24 PM CST Situation: Referral to different urologist Background: Patient contacting PCP office. Assessment: Patient is not pleased with his current urologist, he feels like they are not fixing the problem oreven giving him solutions. He currently he Dr. Dykes at [facility] Recommendation: He is wanting Kim Benavidez APRN, NATE recommendation for a different urologist. Please advise, thank you! Encounter routed to provider to notify. CULTURAL EQUIPMENT SALES MANAGER * Telephone Encounter - Mariangel Shipley - 04/04/2025 4:22 PM CST Symptom: Urination Pain Outcome: Transfer to director of exhibits queue Reason: This is the only possible outcome for this symptom The caller accepted this outcome. CULTURAL EQUIPMENT SALES MANAGER documented in this encounter Plan of Treatment Upcoming Encounters Date Type Department Care Team (Late st Contact Info) Description 05/17/2025 2:30 PM AGRICULTURAL EQUIPMENT SALES MANAGER Office Visit [facility] Medical Group - Family [facility] [address] [place] [address] Kim Benavidez APRN, N[facility] [address] [place] [address] documented as of this encounter Visit Diagnoses Not on filedocumented in this encounter Additional Health Concerns Infection Onset Date Last Indicated Resolved Time Respiratory Rule-Out 04/18/2025 04/18/2025 025 1:07 AM AGRICULTURAL EQUIPMENT SALES MANAGER Assessment Noted Time PHQ-9 Depression Total Score: 0 09/29/19 25 11:18 AM CDT documented as of this encounter Care Teams Procurement Agent Relationship Specialty Start Date End Date Kim Benavidez APRN, NATE [address] [place] [address] PCP - General Advanced Practice Nurse 09/28/24 Mark De Los Santos MD Consulting Physician Urology 09/05/15 Rand Tsang MD Consulting Physician Dermatopathology 01/16/18 documented as of this encounter
--- OUTSIDE RECORDS SUMMARY | 2025-04-20 11:51 | XMS_ITS | Encounter Summary ---
Author Organization [facility] Address [address] [place] [address] Phone Care Team Providers Care Detail Supervisor Name Role Phone Mark De Los Santos MD Unavailable Unavailable Rand Tsang MD Unavailable Kim Benavidez ELECTRONICS ENGINEERING PROFESSOR, VETERINARIAN POULTRY Primary Care Provider + Reason for Visit * Reason Onset Date Comments Advice Only 03/11/2025 Encounter Details Date Type Department Care Team (Late st Contact Info) Description 03/11/2025 Telephone [facility] [address] [place] [phone] Kim Benavidez, ELECTRONICS ENGINEERING PROFESSOR, VETERINARIAN POULTRY [address] [place] [address] Advice Only Social History Tobacco Use Types [...] phone with family, friends, or neighbors? Patient unable to answer 03/15/2025 How often do you get togethe r with friends or relatives? Patient unable to answer 03/15/2025 How often do you attend chur ch or mandaeism services? Patient unable to answer 03/15/2025 Do you belong to any clubs o r organizations such as judaism groups, unions, fraternal or athletic groups, or school groups? Patient unable to answer 03/15/2025 How often do you attend meet ings of the clubs or organizations you belong to? Patient unable to answer 03/15/2025 Are you , , di vorced, , never , or living with a partner? Patient unable to answer 03/15/2025 AUDIT-C Answer Date Recorded Q1: How often do you have a drink containing alcohol? Patient unable to answer 03/15/2025 Q2: How many drinks containi ng alcohol do you have on a typical day when you are drinking? Patient unable to answer Q3: How often do you have si x or more drinks on one occasion? Patient unable to answer 03/15/2025 Overall Financial Resource Strain (CARDIA) Answe r Date Recorded How hard is it for you to pa y for the very basics like food, housing, medical care, and heating? Patient unable to answer 03/15/2025 [facility] - Occupational Stress Questionnaire Answer Date Recorded Do you feel stress - tense, restless, nervous, or anxious, or unable to sleep at night because your mind is troubled all the time - these days? Patient unable to answer 03/15/2025 Exercise Vital Sign Answer Date Recorde d On average, how many days pe r week do you engage in moderate to strenuous exercise (like a brisk walk)? Patient unable to answer 03/15/2025 On average, how many minutes do you engage in exercise at this level? Patient unable to answer 03/15/2025 Hunger Vital Sign Answer Date Recorded Within the past 12 months, y ou worried that your food would run out before you got the money to buy more. Never true 03/15/20 25 Within the past 12 months, t he food you bought just didn't last and you didn't have money to get more. Never true 03/15/2025 [facility] - Transportation Answer Date Re corded In the past 12 months, has l ack of transportation kept you from medical appointments or from getting medications? Patient unable to answer 03/15/2025 In the past 12 months, has l ack of transportation kept you from meetings, work, or from getting things needed for daily living? Patient unable to answer 03/15/2025 Housing Stability Vital Sign Answer Víctor e Recorded In the last 12 months, was t here a time when you were not able to pay the mortgage or rent on time? No 03/15/2025 In the past 12 months, how m any times have you moved where you were living? 0 03/15/2025 At any time in the past 12 m [facility], were you homeless or living in a custodial (including now)? No 03/15/2025 [facility] Utilities Answer Date Recorded In the past 12 months has th e electric, gas, oil, or water company threatened to shut off services in your home? Patient unable to answer 03/15/2025 Sexually Active Control Partners Comments Yes Female Sex and Gender Information Value Date Recorded Sex Assigned at Not on file Legal Sex Male 11:59 PM CDT Gender Identity Not on file Sexual Orientation Not on file documented as of this encounter Miscellaneous Notes * Telephone Encounter - Jarad Millan - 03/11/2025 9:26 AM CST Symptoms: Foot or Ankle Pain - Not From Injury, Dizziness Outcome: Warm transfer to an emergent RN NOW! Reason: Trouble walking The caller accepted this outcome. N CONTROL TECHNICIAN documented in this encounter Plan of Treatment Upcoming Encounters Date Type Department Care Team (Late st Contact Info) Description 05/17/2025 2:30 PM TRAIN CONTROL TECHNICIAN Office Visit [facility] - Family Medicine [facility] [address] [place] [address] Kim Benavidez, ELECTRONICS ENGINEERING PROFESSOR, VETERINARIAN POULTRY [address] [place] [address] documented as of this encounter Visit Diagnoses Not on filedocumented in this encounter Additional Health Concerns Infection Onset Date Last Indicated Resolved Time Respiratory Rule-Out 03/15/2025 03/15/2025 025 11:03 AM TRAIN CONTROL TECHNICIAN Respiratory Rule-Out 04/18/2025 04/18/2025 025 1:07 AM TRAIN CONTROL TECHNICIAN Assessment Noted Time PHQ-9 Depression Total Score: 0 09/29/19 11:18 AM CDT documented as of this encounter Care Teams Detail Supervisor Relationship Specialty Start Date End Date Kim Benavidez, ELECTRONICS ENGINEERING PROFESSOR, VETERINARIAN POULTRY [address] [place] [address] PCP - General Advanced Practice Nurse 09/28/24 Mark De Los Santos MD Consulting Physician Urology 09/05/15 Rand Tsang MD Consulting Physician Dermatopathology 01/16/18 documented as of this encounter
--- OUTSIDE RECORDS SUMMARY | 2025-04-20 11:51 | XMS_ITS | Encounter Summary ---
Author Organization [facility] Address [address] [place] [address] Phone Care Team Providers Care Claim Manager Name Role Phone Mark De Los Santos MD Unavailable Unavailable Rand Tsang MD Unavailable [phone] Kim Benavidez APRN, PURCHASE ANALYST Primary Care Provider + Reason for Visit * Reason Comments Medication Refill Encounter Details Date Type Department Care Team (Late st Contact Info) Description 04/11/2025 Refill [facility] Medical Group - Family Medicine [facility] [address] [place] [address] Kim Benavidez, ELSY, PURCHASE ANALYST [address] [place] [address] Medication Refill Social History Tobacco Use Types [...] declined 03/19/2025 How often do you attend scientology or pentecostalism serv ices? Patient declined 03/19/2025 Do you belong to any clubs o r organizations such as scientology groups, unions, fraternal or athletic groups, or [...] medical care, and heating? Patient declined 03/19/2025 [facility] - Occupational [...] any time in the past 12 m [place], were you homeless or living in a halfway (including now)? Patient declined 03/19/2025 [facility] Utilities Answer Date Recorded In the [...] * BP Answer Date of Assessment Author 152/92 04/11/2025 10:28 AM Cynthai Johnson, ISABELL * Temp Answer Date of Assessment Author 97.1 04/11/2025 10:28 AM Cynthia Johnson, RN * Pulse Answer Date of Assessment Author 66 04/11/2025 10:28 AM Cynthia Johnson, ISABELL * Resp Answer Date of Assessment Author 16 04/11/2025 10:28 AM Cynthia Johnson, RN * SpO2 Answer Date of Assessment Author 96 04/11/2025 10:28 AM Cynthia Johnson, RN documented as of this encounter Mental Status * BP Answer Entry Date Author 152/92 04/11/2025 10:28 AM Cynthia Johnson, RN * Temp Answer Entry Date Author 97.1 04/11/2025 10:28 AM Cynthia Johnson, RN * Pulse Answer Entry Date Author 66 04/11/2025 10:28 AM Cynthia Johnson, RN * SpO2 Answer Entry Date Author 96 04/11/2025 10:28 AM Cynthia Johnson, RN documented in this encounter Miscellaneous Notes * Telephone Encounter - Sehr, Daisha L, RN - 04/12/2025 3:46 PM CST Images from the original note were not included. Name from pharmacy: MELOXICAM 7.5MG TABLET Will file in chart as: meloxicam (MOBIC) 7.5 MG Tablet The original prescription was discontinued on 01/30/2025 by Jimmy Lopez MD for the following reason: Therapy completed. RINARY MEDICINE SCIENTIST documented in this encounter Plan of Treatment Upcoming Encounters Date Type Department Care Team (Late st Contact Info) Description 05/17/2025 2:30 PM VETERINARY MEDICINE SCIENTIST Office Visit [facility] Medical Group - Family Medicine [facility] [address] [place] [address] Kim Benavidez APRN, PURCHASE ANALYST [address] [place] [address] documented as of this encounter Visit Diagnoses Not on filedocumented in this encounter Additional Health Concerns Infection Onset Date Last Indicated Resolved Time Respiratory Rule-Out 04/18/2025 04/18/2025 025 1:07 AM VETERINARY MEDICINE SCIENTIST Assessment Noted Time PHQ-9 Depression Total Score: 0 09/29/19 25 11:18 AM CDT documented as of this encounter Care Teams Claim Manager Relationship Specialty Start Date End Date Kim Benavidez APRN, PURCHASE ANALYST [address] [place] [address] PCP - General Advanced Practice Nurse 09/28/24 Mark De Los Santos MD Consulting Physician Urology 09/05/15 Rand Tsang MD Consulting Physician Dermatopathology 01/16/18 documented as of this encounter
--- OUTSIDE RECORDS SUMMARY | 2025-04-20 11:51 | XMS_ITS | Encounter Summary ---
Author Organization [facility] Address [address] [place] [address] Phone Care Team Providers Care Bookkeepers Supervisor Name Role Phone Mark De Los Santos MD Unavailable Unavailable Rand Tsang MD Unavailable [phone] Kim Benavidez DIRECTOR RELIGIOUS EDUCATION, FLIGHT SURVEYOR Primary Care Provider + Reason for Visit * Reason Onset Date Comments Advice Only 03/11/2025 Dizziness 03/11/2025 Shortness of Breath 03/11/2025 Encounter Details Date Type Department Care Team (Late st Contact Info) Description 03/11/2025 Nurse Triage [facility] Central Call Center [address] [place] [phone] Kim Benavidez, DIRECTOR RELIGIOUS EDUCATION, FLIGHT SURVEYOR [address] [place] [address] Advice Only; Dizziness; Shortness of Breath Social History Tobacco Use Types Packs/Day Years [...] you attend chur ch or sabianism services? Patient unable to answer 03/15/2025 Do [...] and heating? Patient unable to answer 03/15/2025 [facility]at ional Health - Occupational [...] any time in the past 12 m [facility], were you homeless or living in a assisted (including now)? No 03/15/2025 [facility] Utilities Answer Date Recorded In [...] encounter Miscellaneous Notes * Telephone Encounter - Shania Lui RN - 03/11/2025 9:28 AM CST Images from the original note were not included. Situation: Dizziness Background: Patient contacting PCP office. See previous notes in encounter Assessment: Patient calling regarding severe dizziness, decreased sleeping at night, white coating in mouth when waking up. States If I stand up, I'll fall down. Mentions in the past when dizzy would take Reglan. Patient reports he has postponed tomorrow's cataract surgery due to dizziness. Advised of note stating: Kim Benavidez, DIRECTOR RELIGIOUS EDUCATION, FLIGHT SURVEYOR 03/08/25 2:39 PM Note He should ensure proper hydration and follow up with an evaluation for any persistent symptoms States he drank some orange juice yesterday which did help with symptoms. Advised patient to drink Gatorade/Powerade for hydration, patient agreeable. Patient stating around 0500 this morning he was having chest pain. States at this time only about to get 3/4 of a breath in, reports mild difficulty breathing at this time. Denies chest pain at this time. Advised patient of disposition to be evaluated in Emergency Department from previous triage. Patient/caller refuses disposition of: GO to ED now. Reiterated the importance of following recommendationas symptoms could indicate a serious or life-threatening situation. Patient response:Patient/Callerverbalized understanding of recommendations and requests provider recommendations, notified that provider will review encounter for further recommendations Recommendation: Encounter routed to provider high priority to notify. Please advise further. Thank you. Please callback patient to notify of provider recommendations. CE ENGINEER * Telephone Encounter - Fidelina Issa RN - 03/11/2025 9:18 AM CST Situation: follow up Background: Patient contacting PCP office. He states he is wondering if he is still going to have his cataract surgery tomorrow because he is dizzy today. Patient was advised he will need to speak with the surgeon doing the surgery to verify. Patient verbalizes understanding. Patient states he is still dizzy. This RN reviewed recommendation below of going to the ER and if needed an ambulance could be called to assist in transportation. Patient declined and states he wantsto try and rest for a little while and if not better he will find a ride to the ER. Assessment: N/A Recommendation: Patient transferred to Vision provider for further recommendations. CE ENGINEER * Telephone Encounter - Ifeoma Bradley RN - 03/11/2025 8:40 AM DEVICE ENGINEER SITUATION: 74 y.o. with dizziness BACKGROUND: Patient contacting PCP office. Per chart review, last office visit 02/19 ASSESSMENT: Symptom Description / Location: Dizziness over the past few months. Dizziness worsened over the last couple of days. Has to use walker. Cataract surgery on 03/12. Chest pains on 03/10 for 2 hours. Denies chest pain now. Then stated when he sat up chest pain started again. Recommended 911/emergency room if chest pain were to last 5 minutes or longer. Has drank one bottle of water today. Breathing is worsened for 3-4 days. RECOMMENDATION: Recommended emergency room. Patient declines. He states let me see how it goes for an hour or two and I will call you back. He is concerned about symptoms interfering with surgery tomorrow. Care advice provided per triage guideline. Caller verbalized understanding. Encounter routed to provider high priority to notify. - Reason for Disposition: SEVERE dizziness (e.g., unable to stand, requires support to walk, feels like passing out now) Difficulty breathing Chest pain . Protocols Used: Chest Pain-A-OH Breathing Qjeldiagug-N-CV Ehvplbvew-X-MC See care advice and disposition for Guideline. First positive answer recorded, all responses to prior questions were negative. If symptoms increase, change or if new symptoms develop, call your health care provider or call back. Recommendations were based on caller information and is not a diagnosis. Verified and reviewed all triage information with caller. CE ENGINEER * Telephone Encounter - Marisa Clifford - 03/11/2025 8:39 AM CST Symptom: Dizziness Outcome: Warm transfer to an emergent RN NOW! Reason: Trouble walking The caller accepted this outcome. CE ENGINEER documented in this encounter Plan of Treatment Upcoming Encounters Date Type Department Care Team (Late st Contact Info) Description 05/17/2025 2:30 PM DEVICE ENGINEER [facility] [address] [place] [address] Kim Benavidez, DIRECTOR RELIGIOUS EDUCATION, FLIGHT SURVEYOR [address] [place] [address] documented as of this encounter Visit Diagnoses Not on filedocumented in this encounter Additional Health Concerns Infection Onset Date Last Indicated Resolved Time Respiratory Rule-Out 03/15/2025 03/15/2025 025 11:03 AM DEVICE ENGINEER Respiratory Rule-Out 04/18/2025 04/18/2025 025 1:07 AM DEVICE ENGINEER Assessment Noted Time PHQ-9 Depression Total Score: 0 09/29/19 25 11:18 AM CDT documented as of this encounter Care Teams Bookkeepers Supervisor Relationship Specialty Start Date End Date Kim Benavidez, DIRECTOR RELIGIOUS EDUCATION, FLIGHT SURVEYOR [address] [place] [address] PCP - General Advanced Practice Nurse 09/28/24 Mark De Los Santos MD Consulting Physician Urology 09/05/15 Rand Tsang MD Consulting Physician Dermatopathology 01/16/18 documented as of this encounter
--- OUTSIDE RECORDS SUMMARY | 2025-04-20 11:51 | XMS_ITS | Encounter Summary ---
Author Organization [facility] Address [address] [place] [address] Phone Care Team Providers Care Coverstitch Binder Name Role Phone Mark De Los Santos MD Unavailable Unavailable Rand Tsang MD Unavailable Carlos Moran MD Primary Care Provider [phone] Sohail Gould MD Primary Care Provider [phone] Vicki Salmeron APRN Primary Care Provider [phone] Kim Benavidez APRN, [facility] Primary Care Provider + Mita Lopez RN Unavailable Unavailable Reason for Visit * Reason Comments Medication Refill Encounter Details Date Type Department Care Team (Late st Contact Info) Description 01/26/2021 Refill [facility] - Primary Care - [place] [address] [place] [address] Carlos Moran MD [address] [place] [address] Medication Refill Social History Tobacco [...] st Contact Info) Description 05/17/2025 2:30 PM CAD OPERATOR Office Visit [facility] Medical Group [facility] [address] [place] [address] Kim Benavidez, HEALTH EVALUATOR, COMPUTER TRAINING SPECIALIST [address] [place] [address] documented as of this encounter Visit Diagnoses Not on filedocumented in this encounter Additional Health Concerns Infection Onset Date Last Indicated Resolved Time Respiratory Rule-Out 01/29/2025 01/29/2025 025 1:05 PM CDT Respiratory Rule-Out 02/25/2025 02/25/2025 025 4:57 PM CDT Respiratory Rule-Out 03/15/2025 03/15/2025 025 11:03 AM CAD OPERATOR Respiratory Rule-Out 04/18/2025 04/18/2025 025 1:07 AM CAD OPERATOR Assessment Noted Time PHQ-9 Depression Total Score: 0 07/13/19 20 10:00 AM CDT documented as of this encounter Care Teams Coverstitch Binder Relationship Specialty Start Date End Date Carlos Moran MD [address] [place] [address] PCP - General Internal Medicine 10/07/20 08/19/21 Sohail Gould MD [address] [place] [address] PCP - General Family Medicine 08/20/21 08/15/24 Vicki Salmeron APRN [address] [place] [address] [place] [address] PCP - General Advanced Practice Nurse 08/16/24 Kim Benavidez, HEALTH EVALUATOR, COMPUTER TRAINING SPECIALIST [address] [place] [address] PCP - General Advanced Practice Nurse 09/28/24 Mark De Los Santos MD Consulting Physician Urology 09/05/15 Rand Tsang MD Consulting Physician Dermatopathology 01/16/18 Mita Lopez, ISABELL [place] Nurse Quality Internship 02/01/25 02/14/25 documented as of this encounter
--- OUTSIDE RECORDS SUMMARY | 2025-04-20 11:51 | XMS_ITS | Encounter Summary ---
Author Organization [facility] Address [address] [place] [address] Phone Care Team Providers Care Systems Consultant Name Role Phone Mark De Los Santos MD Unavailable Unavailable Rand Tsang MD Unavailable Kim Benavidez PATIENT RESOURCE SPECIALIST, IT COMMUNICATIONS SPECIALIST Primary Care Provider + Mita Lopez RN Unavailable Unavailable Reason for Visit * Reason Onset Date Comments Advice Only 02/04/2025 Encounter Details Date Type Department Care Team (Late st Contact Info) Description 02/04/2025 Telephone [facility] Central Call Center [address] [place] [address] Kim Benavidez, PATIENT RESOURCE SPECIALIST, IT COMMUNICATIONS SPECIALIST [address] [place] [address] Advice Only Social History Tobacco Use Types [...] declined 01/29/2025 How often do you attend yazidism or sabianism serv ices? Patient declined 01/29/2025 [...] medical care, and heating? Patient declined 01/29/2025 [facility] - Occupational [...] any time in the past 12 m [facility], were you homeless or living in a [facility]p (including now)? Patient declined 01/29/2025 [facility] Utilities Answer Date Recorded In the [...] * BP Answer Date of Assessment Author 134/62 02/04/2025 9:39 AM CDT Jere Dukes ril * Temp Answer Date of Assessment Author 97.6 02/04/2025 9:39 AM CDJere Hampton ril * Pulse Answer Date of Assessment Author 59 02/04/2025 9:39 AM Jere Sweeney ril * Resp Answer Date of Assessment Author 14 02/04/2025 9:39 AM Jere Sweeney ril * SpO2 Answer Date of Assessment Author 96 02/04/2025 9:39 AM Jere Sweeney ril documented as of this encounter Mental Status * BP Answer Entry Date Author 134/62 02/04/2025 9:39 AM Jere Sweeney ril * Temp Answer Entry Date Author 97.6 02/04/2025 9:39 AM CDJere Hampton ril * Pulse Answer Entry Date Author 59 02/04/2025 9:39 AM CDJere Hampton ril * SpO2 Answer Entry Date Author 96 02/04/2025 9:39 AM Jere Sweeney ril documented in this encounter Miscellaneous Notes * Telephone Encounter - Marisa Clifford - 02/04/2025 11:20 AM CDT Symptoms: Dizziness, Headache Outcome: Schedule an urgent appointment within same day Reason: Getting worse The caller accepted this outcome. Caller Denied: * Passed out * Can't stand (unless normally can't stand) * Sudden worst headache of life now * Acting confused * Trouble walking - - - no appt sent to triage documented in this encounter Plan of Treatment Upcoming Encounters Date Type Department Care Team (Late st Contact Info) Description 05/17/2025 2:30 PM STEEPLECHASE JOCKEY Office Visit [facility] Medical Group Family [facility] [address] [place] [address] Kim Benavidez APRN, IT COMMUNICATIONS SPECIALIST [address] [place] [address] documented as of this encounter Visit Diagnoses Not on filedocumented in this encounter Additional Health Concerns Infection Onset Date Last Indicated Resolved Time Respiratory Rule-Out 02/25/2025 02/25/2025 025 4:57 PM CDT Respiratory Rule-Out 03/15/2025 03/15/2025 025 11:03 AM STEEPLECHASE JOCKEY Respiratory Rule-Out 04/18/2025 04/18/2025 025 1:07 AM STEEPLECHASE JOCKEY Assessment Noted Time PHQ-9 Depression Total Score: 0 09/29/19 25 11:18 AM CDT documented as of this encounter Care Teams Systems Consultant Relationship Specialty Start Date End Date Kim Benavidez APRN, IT COMMUNICATIONS SPECIALIST [address] [place] [address] PCP - General Advanced Practice Nurse 09/28/24 Mark De Los Santos MD Consulting Physician Urology 09/05/15 Rand Tsang MD Consulting Physician Dermatopathology 01/16/18 Mita Lopez RN [place] Nurse Church Administrator 02/01/25 02/14/25 documented as of this encounter
--- OUTSIDE RECORDS SUMMARY | 2025-04-20 11:51 | XMS_ITS | Encounter Summary ---
Author Organization [facility] Address [address] [place] [address] Care Team Providers Care Micro Paleontologist Name Role Phone Nicolas Jung MD Unavailable [phone] Louie Lomeli MD Unavailable [phone] Melchor Woodard MD Primary Care Provider [phone] Jairo Sparrow MD Unavailable [phone] Maria Eugenia Navarrete [facility] Unavailable [phone] Kim Benavidez NP Primary Care Provider [phone] Encounter Details Date Type Department Care Team (Late st Contact Info) Description 01/24/2023 Orders Only [facility] [address] [address] [address] [place] [address] Miah Rodrigues MA Pre-op testing [...] week 12/24/2021 How often do you attend [facility] or buddhist services? Never 12/24/2021 Do you belong to [...] slept in a jail (including now)? No 12/24/2021 Sex and Gender Information Value Date Recorded Sex Assigned at Not on file Legal Sex Male 12:23 AM BUSINESS DEVELOPMENT ASSOCIATE Gender Identity Not on file Sexual Orientation [...] COVID: Suspected 06/12/2024 06/12/2024 06/12/2024 4:34 PM BUSINESS DEVELOPMENT ASSOCIATE COVID: Suspected 07/30/2024 07/30/2024 07/30/2024 4:38 PM CDT documented as of this encounter Care Teams Micro Paleontologist Relationship Specialty Start Date End Date Melchor Woodard MD PCP - General Family Practice 07/30/22 02/07/25 Kim Benavidez NP [address] [place] [address] PCP - General Family Medicine 02/08/25 Nicolas Jung MD Surgeon Orthopedic Surgery 08/05/21 Louie Lomeli MD Consulting Physician Cardiology 12/23/21 Jairo Sparrow MD [address] [place] [address] [address] [place] [address] Consulting Physician Neurology 12/14/22 Maria Eugenia Navarrete, [address] [place] [address] Pharmacist Pharmacy 03/12/24 03/12/24 documented as of this encounter
--- OUTSIDE RECORDS SUMMARY | 2025-04-20 11:52 | XMS_ITS | Clinical Summary ---
Author Organization [facility] CALL [facility] ENTER Address [address] [place] [address] Phone Care Team Providers Care Equipment Sterilizer Name Role Phone Mark De Los Santos MD Unavailable Unavailable Rand Tsang MD Unavailable [phone] Kim Benavidez APRN, BURR MILL OPERATOR Primary Care Provider + Allergies Active Allergy Reactions Criticality Noted Date Comments Ceftriaxone Unknown 12/29/2022 Medications oxybutynin (DITROPAN-XL) 10 MG TABLET SR 24 HR Take 10 mg by mouth daily. Active empagliflozin (JARDIANCE) 25 MG Tablet Take 25 mg by mouth daily. Active ezetimibe (ZETIA) 10 MG Tablet Take 10 mg by mouth daily. Active losartan (COZAAR) 25 MG Tablet Take 50 mg by mouth daily. Active aspirin EC (Aspirin 81) 81 MG Tablet Delayed ResponseIndication s:Stenosis of right carotid artery Take 1 Tablet by mouth daily. 100 Tablet 3 025 Active atorvastatin (LIPITOR) 40 MG Tablet Take 40 mg by mouth daily. Active clopidogrel (PLAVIX) 75 MG Tablet Take 75 mg by mouth daily. Active ondansetron (ZOFRAN-ODT) 4 MG TABLET DISPERSIBLE Take 1 Tablet by mouth every 6 hours as needed for Nausea - 1st line. 10 Tablet 025 Active polyethylene glycol (GLYCOLAX, MIRALAX) 17 g PackIndications:Co nstipation Take 1 Packet by mouth 2 times daily as needed for Constipation - 1st line. Dissolve in 4-8 oz of liquid. Indications: Constipation 90 Packet Active miconazole 2 % Ointment Apply 2 times daily. Application Site: bilateral feet from toe tips to ankles (Description and Location) 141 g Active meclizine (ANTIVERT) 25 MG Tablet Take 1 Tablet by mouth 3 times daily as needed for Dizziness. 30 Tablet Active amLODIPine (NORVASC) 10 MG Tablet TAKE ONE (1) TABLET BY MOUTH DAILY 90 Tablet 1 Active levothyroxine (SYNTHROID) 50 MCG Tablet TAKE ONE (1) TABLET BY MOUTH DAILY 90 Tablet 1 Active allopurinol (ZYLOPRIM) 100 MG TabletIndications: Gout Take 1 Tablet by mouth daily. Indications: Gout 90 Tablet Active metFORMIN (GLUCOPHAGE) 500 MG TabletIndications: Type 2 diabetes mellitus with 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, without long-term current use of insulin TAKE 1 TABLET BY MOUTH TWO (2) TIMES DAILY (WITH MEALS). 180 Tablet Active folic acid (FOLVITE) 1 MG TabletIndications: Folate deficiency TAKE 1 TABLET BY MOUTH DAILY. 90 Tablet Active doxycycline hyclate (VIBRAMYCIN) 100 MG Capsule Take 1 Capsule by mouth 2 times daily for 10 days. 20 Capsule 025 2024 Active amLODIPine (NORVASC) 10 MG Tablet TAKE 1 TAB BY MOUTH DAILY. 90 Tab 1 020 2024 Discontinued levothyroxine (SYNTHROID) 50 MCG Tablet Take 50 mcg by mouth daily. 2024 Discontinued folic acid (FOLVITE) 1 MG TabletIndications: Folate deficiency TAKE 1 TABLET BY MOUTH DAILY. 30 Tablet 025 2024 Discontinued metFORMIN (GLUCOPHAGE) 500 MG TabletIndications: Type 2 diabetes mellitus with 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, without long-term current use of insulin TAKE 1 TABLET BY MOUTH TWO (2) TIMES DAILY (WITH MEALS). 60 Tablet 025 2024 Discontinued Active Problems Problem Noted Date Diagnosed Date Obesity (BMI 35.0-39.9 without comorbidity) 03/02 Hypoxia 03/19/2025 H/O tilt table evaluation 03/17/2025 Autonomic neuropathy 03/17/2025 Dizziness 01/29/2025 Polyneuropathy associated with underlying diseas e 10/24/2019 '[id number]' infant with signs of mal nutrition 02/02/2019 Pulmonary hypertension 05/02/2017 Overview (01/24/2018): 44mm Hg Rash 02/10/2017 Benign prostatic hyperplasia with urinary freque ncy 12/19/2015 Hypertension, essential Arthritis DM2 (diabetes mellitus, type 2) Hyperlipidemia Encounters Date Type Department Care Team Description 04/17/2025 11:39 PM TUFTING MACHINE OPERATOR - 04/18/2025 3:01 AM TUFTING MACHINE OPERATOR Emergency [facility] Emergency [address] [place] [address] Ignacio Posey MD Fall, initial encounter Discharge Disposition: Discharged to home or Selfcare 04/17/2025 Travel 04/17/2025 [facility]ill [facility] [address] [place] [phone] Kim Benavidez, WEATHER STRIP MECHANIC, BURR MILL OPERATOR Medication Refill 04/16/2025 Telephone [facility] [address] [place] [phone] Kim Benavidez, WEATHER STRIP MECHANIC, BURR MILL OPERATOR Advice Only 04/15/2025 Nurse Triage [facility] [address] [place] [phone] Kim Benavidez, WEATHER STRIP MECHANIC, BURR MILL OPERATOR left ankle pain 04/15/2025 Nurse Triage [facility] [address] [place] [phone] Kim Benavidez, WEATHER STRIP MECHANIC, BURR MILL OPERATOR Advice Only 04/12/2025 Nurse Triage [facility] [address] [place] [phone] Kim Benavidez, WEATHER STRIP MECHANIC, BURR MILL OPERATOR Advice Only; Respiratory Distress 04/11/2025 10:00 AM TUFTING MACHINE OPERATOR [facility] [address] [place] [address] Cynthia Lucero, RN SN - OASIS DISCHARGE 04/11/2025 Refill [facility] [place] [address] Kim Benavidez, WEATHER STRIP MECHANIC, BURR MILL OPERATOR Medication Refill 04/08/2025 [facility] [address] [place] [address] Xin Madrid, LONGITUDINAL FLOAT OPERATOR TELEPHONE ENCOUNTER 04/06/2025 [facility] [address] [place] [phone] Kim Benavidez, WEATHER STRIP MECHANIC, BURR MILL OPERATOR Extremity Weakness 04/05/2025 2:30 PM TUFTING MACHINE OPERATOR Office Visit [facility] [address] [place] [address] Kim Benavidez, WEATHER STRIP MECHANIC, BURR MILL OPERATOR Gout, unspecified cause, unspecified chronicity, unspecified site (Primary Dx) Discharge Disposition: Discharged to home or Selfcare 04/05/2025 Telephone [facility] [address] [place] [address] Kim Benavidez, WEATHER STRIP MECHANIC, BURR MILL OPERATOR 04/05/2025 Patient Outreach [facility] Pest Control Service Technician Management [address] [place] [address] Mita Lopez, RN Care Management 04/05/2025 Travel 04/04/2025 10:30 AM TUFTING MACHINE OPERATOR Home Care Visit [address] [address] Chelly Astorga LPN SN - HOME VISIT 04/04/2025 Telephone [facility] [address] [place] [phone] Kim Benavidez, WEATHER STRIP MECHANIC, BURR MILL OPERATOR Advice Only 04/02/2025 Refill [facility] [address] [place] [address] Kim Benavidez, WEATHER STRIP MECHANIC, BURR MILL OPERATOR Medication Refill 04/01/2025 2:00 PM TUFTING MACHINE OPERATOR Home Care Visit [address] [address] Cynthia Lucero, RN DISEASE MGT PHONE 03/30/2025 [facility] [place] [address] Kim Benavidez WEATHER STRIP MECHANIC, BURR MILL OPERATOR Medication Refill 03/27/2025 3:00 PM TUFTING MACHINE OPERATOR Home Care Visit [address] [address] Cynthia Lucero, RN DISEASE MGT PHONE 03/25/2025 1:45 PM TUFTING MACHINE OPERATOR Office Visit [facility] [address] [place] [address] Oehl, July N, WEATHER STRIP MECHANIC, BURR MILL OPERATOR Hypoxia (Primary Dx); Vertigo; Hypertension, essential; Dizziness; Type 2 diabetes mellitus with 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, without long-term current use of insulin; Frequent falls; Stenosis of carotid artery, unspecified laterality; Cataract, unspecified cataract type, unspecified laterality Discharge Disposition: Discharged to home or Selfcare 03/25/2025 Telephone [facility] [address] [place] [address] Oehl, July N, WEATHER STRIP MECHANIC, BURR MILL OPERATOR DME 03/25/2025 Travel 03/22/2025 10:30 AM TUFTING MACHINE OPERATOR Home Care Visit [address] [address] Chelly Astorga LPN SN - HOME VISIT 03/22/2025 Home Care Visit [address] [address] Antonina Miller OT OT - DISCHARGE SUMMARY 03/19/2025 2:00 PM TUFTING MACHINE OPERATOR [facility] [address] [place] [address] Cynthia Lucero, ISABELL DISEASE MGT PHONE 03/19/2025 11:47 AM TUFTING MACHINE OPERATOR - 03/20/2025 4:33 PM TUFTING MACHINE OPERATOR Hospital [facility] [address] [phone] Lorelei Fish APRN, Lore Choi APRN, Papito Chong MD Krishna, Naveen Kumar, MD Hypoxia Discharge Disposition: Home Health Care Sv 03/19/2025 Travel 03/19/2025 [facility] [address] [place] [phone] Kim Benavidez APRN, BURR MILL OPERATOR Dizziness; Shortness of Breath; Follow-up 03/15/2025 9:36 AM TUFTING MACHINE OPERATOR - 03/18/2025 3:42 PM TUFTING MACHINE OPERATOR Hospital Encounter [facility] [address] [phone] Leah Marin MD Smith, Lavada J, APRN, BURR MILL OPERATOR Jimmy Lopez MD Dizziness Discharge Disposition: Discharged/Transferre d to SNF 03/15/2025 Travel 03/15/2025 Nurse [facility] [address] [place] [phone] Kim Benavdiez APRN, BURR MILL OPERATOR Dizziness; Breathing Problem; Vision Problem; Difficulty Walking 03/14/2025 2:00 PM TUFTING MACHINE OPERATOR [facility] [address] [place] [address] Cynthia Lucero, RN DISEASE MGT PHONE 03/13/2025 Telephone [facility] [address] [place] [address] Kim Benavidez APRN, BURR MILL OPERATOR Advice Only; Dizziness 03/13/2025 Telephone [facility] [place] [address] Kim Benavidez, WEATHER STRIP MECHANIC, BURR MILL OPERATOR 03/12/2025 Telephone [facility] [address] [place] [phone] Kim Benavidez, WEATHER STRIP MECHANIC, BURR MILL OPERATOR Form Completion 03/11/2025 Telephone [facility] [address] [place] [phone] Kim Benavidez, WEATHER STRIP MECHANIC, BURR MILL OPERATOR Advice Only 03/11/2025 Nurse Triage [facility] [address] [place] [phone] Kim Benavidez, WEATHER STRIP MECHANIC, BURR MILL OPERATOR Advice Only; Dizziness; Shortness of Breath 03/08/2025 Telephone [facility] [address] [place] [phone] Kim Benavidez, WEATHER STRIP MECHANIC, BURR MILL OPERATOR Advice Only; Dizziness 03/07/2025 2:00 PM TUFTING MACHINE OPERATOR Home Care Visit [address] [address] Daisha Law, WILD OT - DISCIPLINE DISCHARGE 03/07/[address] [address] Blanca Remy, RN Follow-up 03/07/2025 Home Care Visit [address] [address] Daisha Law OTA TELEPHONE ENCOUNTER 03/07/2025 Home Care Visit [address] [address] Daisha Law OTA CASE COMMUNICATION 03/07/2025 Home Care Visit [address] [address] Mandi Garcia, RN CASE COMMUNICATION 03/07/2025 Home Care Visit [address] [address] Daisha Law OTA CASE COMMUNICATION 03/06/2025 [facility] [address] [place] [address] Xin Madrid, LONGITUDINAL FLOAT OPERATOR TELEPHONE ENCOUNTER 03/06/2025 Nurse Triage [facility] [address] [place] [phone] Kim Benavidez, WEATHER STRIP MECHANIC, BURR MILL OPERATOR Advice Only; Dizziness; Generalized Weakness 03/05/2025 3:30 PM TUFTING MACHINE OPERATOR Home Care Visit [address] [address] Daisha Law OTA OT - HOME VISIT 03/05/2025 3:00 PM TUFTING MACHINE OPERATOR Home Care Visit [facility] [address] Cynthia Lucero, RN DISEASE MGT PHONE 03/05/2025 2:30 PM TUFTING MACHINE OPERATOR Home Care Visit [address] [address] Renetta Alberts, PT PT - DISCIPLINE DISCHARGE 03/05/2025 Home Care Visit [address] [address] Xin Madrid, LONGITUDINAL FLOAT OPERATOR TELEPHONE ENCOUNTER 03/05/2025 Telephone [facility] [address] [place] [phone] Kim Benavidez, ELSY, BURR MILL OPERATOR Request for Records 03/04/2025 11:30 AM TUFTING MACHINE OPERATOR Home Care Visit [address] [address] Zunilda Bustos, CARDIOLOGY TECHNOLOGIST PT - HOME VISIT 03/04/2025 Home Care Visit [address] [address] Xin Madrid, LONGITUDINAL FLOAT OPERATOR TELEPHONE ENCOUNTER 03/04/2025 Telephone [facility] [address] [place] [phone] Kim Benavidez, WEATHER STRIP MECHANIC, BURR MILL OPERATOR Advice Only 03/01/2025 9:30 AM CDT Home Care Visit [address] [address] Daisha Law, WILD OT - HOME VISIT 03/01/2025 Home Care Visit [address] [address] Xin Madrid, LONGITUDINAL FLOAT OPERATOR TELEPHONE ENCOUNTER 02/28/2025 12:00 PM CDT Home Care Visit [address] [address] Cynthia Lucero, RN SN - HOME VISIT 02/28/2025 11:30 AM CDT Home Care Visit [address] [address] Zunilda Bustos, CARDIOLOGY TECHNOLOGIST PT - HOME VISIT 02/27/2025 11:00 AM CDT Home Care Visit [address] [address] Daisha Law OTA OT - HOME VISIT 02/27/2025 Home Care Visit [address] [address] Xin Madrid, [facility] TELEPHONE ENCOUNTER 02/27/2025 Home Care Visit [address] [address] Daisha Law OTA TELEPHONE ENCOUNTER 02/27/2025 Telephone [facility] Medical [facility] [address] [place] [phone] Kim Benavidez, ELSY, BURR MILL OPERATOR Advice Only; Follow-up 02/26/2025 2:00 PM CDT Home Care Visit [address] [address] Cynthia Lucero, RN DISEASE MGT PHONE 02/26/2025 1:00 PM CDT Home Care Visit [address] [address] Zunilda Bustos, CARDIOLOGY TECHNOLOGIST PT - HOME VISIT 02/26/2025 Home Care Visit [address] [address] Xin Madrid, LONGITUDINAL FLOAT OPERATOR TELEPHONE ENCOUNTER 02/26/2025 Home Care Visit [address] [address] Cynthia Lucero, RN CARE CONFERENCE 02/25/2025 3:34 PM CDT - 02/25/2025 7:58 PM CDT Emergency [facility] Emergency [address] [place] [address] Ignacio Posey MD Furry, Sterling Duval MD Weakness Discharge Disposition: Discharged to home or Selfcare 02/25/2025 Travel 02/21/2025 2:30 PM CDT Home Care Visit [address] [address] Zunilda Bustos, CARDIOLOGY TECHNOLOGIST PT - HOME VISIT 02/21/2025 1:00 PM CDT Home Care Visit [address] [address] Cynthia Lucero, RN SN - HOME VISIT 02/20/2025 12:30 PM CDT Home Care Visit [address] [address] Daisha Law, WILD OT - HOME VISIT 02/20/2025 Home Care Visit [address] [address] Daisha Law, WILD CASE COMMUNICATION 02/20/2025 Refill [facility] [address] [place] [address] Kim Benavidez APRN, BURR MILL OPERATOR Medication Refill 02/20/2025 Telephone [facility] [address] [place] [phone] Kim Benavidez APRN, BURR MILL OPERATOR Advice Only; Referral 02/19/2025 3:00 PM CDT Lab [facility] [address] [place] [address] Lab, [place] [facility]/Ancillary Preoperative clearance; Cataract of left eye, unspecified cataract type; Type 2 diabetes mellitus with 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, without long-term current use of insulin Discharge Disposition: Discharged to home or Selfcare 02/19/2025 1:45 PM CDT Office Visit [facility] [address] [place] [address] Kim Benavidez, WEATHER STRIP MECHANIC, BURR MILL OPERATOR Preoperative clearance (Primary Dx); Cataract of left eye, unspecified cataract type; Type 2 diabetes mellitus with 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, without long-term current use of insulin; Hypertension, essential; Coronary artery disease involving wilton coronary artery of wilton heart without angina pectoris Discharge Disposition: Discharged to home or Selfcare 02/19/2025 11:30 AM CDT Home Care Visit [address] [address] Zunilda Bustos, CARDIOLOGY TECHNOLOGIST PT - HOME VISIT 02/19/2025 Home Care Visit [address] [address] Daisha Law, REDUCTION PLANT SUPERVISOR TELEPHONE ENCOUNTER 02/19/2025 Travel 02/18/2025 10:00 AM CDT Home Care Visit [address] [address] Xin Madrid, LONGITUDINAL FLOAT OPERATOR LONGITUDINAL FLOAT OPERATOR - INITIAL EVALUATION 02/18/2025 9:00 AM CDT Home Care Visit [address] [address] Antonina Miller, OT OT - INITIAL EVALUATION 02/15/2025 10:45 AM CDT Home Care Visit [address] [address] Antonina Miller, OT TELEPHONE ENCOUNTER 02/14/2025 2:30 PM CDT Home Care Visit [address] [address] Renetta Alberts, PT PT - INITIAL EVALUATION 02/14/2025 1:00 PM CDT Home Care Visit [address] [address] Cynthia Lucero, ISABELL SN - OASIS START OF CARE 02/14/2025 Plan of Care Documentation [address] [address] 02/14/2025 Patient Outreach [facility] P[facility] Service Technician Management [address] [place] [address] Mita Lopez, RN Care Management 02/14/2025 [facility]phone [facility] [place] [phone] Kim Benavidez, ELSY, BURR MILL OPERATOR 02/14/[address] [address] Renetta Alberst, PT Need Order 02/13/[address] [address] Radha Mcnair, ISABELL EMS dispatched to Pt. home. 02/12/2025 [facility]phone [facility] [place] [phone] Carlos Escobedo APRN, BURR MILL OPERATOR 02/06/2025 11:00 AM CDT Patient Outreach [facility] P[facility] Service Technician Management [address] [place] [address] Mita Lopez, RN Care Management (CM plant operations vice president) 02/06/2025 Telephone [facility] [place] [phone] Kim Benavidez APRN, BURR MILL OPERATOR 02/04/2025 10:54 AM CDT - 02/04/2025 11:59 PM CDT Hospital Encounter [facility] [address] [place] [phone] Carlos Escobedo APRN, BURR MILL OPERATOR Discharge Disposition: Discharged to home or Selfcare 02/04/2025 10:54 AM CDT - 02/04/2025 11:59 PM CDT Hospital Encounter [facility] [address] [place] [phone] Carlos Escobedo APRN, NATE Discharge Disposition: Discharged to home or Selfcare 02/04/2025 10:00 AM CDT Office Visit [facility] [place] [phone] Carlos Escobedo APRN, NATE Stenosis of right carotid artery (Primary Dx); Neck pain on right side; Frequent falls Discharge Disposition: Discharged to home or Selfcare 02/04/2025 Results Follow-Up [facility] [address] [place] [phone] Carlos Escobedo APRN, NATE CT CERVICAL SPINE WO/ CONTRAST 02/04/2025 Telephone [facility] Call Center [address] [place] [phone] Kim Benavidez APRN, BURR MILL OPERATOR Advice Only 02/04/2025 Travel 02/01/2025 Telephone [facility] [place] [address] [place] [address] Fox Shearer MD 01/31/2025 Telephone [facility] [place] [address] [place] [address] Fox Shearer MD 01/31/2025 Telephone [facility] [address] [place] [phone] Kim Benavidez APRN, BURR MILL OPERATOR Advice Only 01/30/2025 3:47 PM CDT - 01/30/2025 6:33 PM CDT Emergency [facility] [address] [place] [phone] Ignacio Posey MD Dizziness Discharge Disposition: Discharged to home or Selfcare 01/30/2025 Telephone [facility] [address] [place] [address] Fox Shearer MD 01/29/2025 11:56 AM CDT - 01/30/2025 11:54 AM CDT Hospital Encounter [facility] Intensive Care [address] [place] [address] Ignacio Norman MD Krishna, Naveen Kumar, MD Smith, Lore Alexandre APRN, NATE Dizziness Discharge Disposition: Discharged to home or Selfcare 01/29/2025 Patient Outreach [facility] Pest Control Service Technician Management [address] [place] [address] Velvet Clemons Care Management (referral) 01/29/2025 Travel 01/28/2025 3:00 PM CDT Clinical Support [facility] [address] [place] [address] Other specified counseling (Primary Dx) Discharge Disposition: Discharged to home or Selfcare 01/28/2025 10:00 AM CDT Office Visit [facility] [address] [place] [address] Briana Solis APRN, NATE Shortness of breath (Primary Dx); Chest pain, unspecified type; Dizziness; Problem related to psychosocial circumstances; Medication nonadherence due to psychosocial problem; Counseling and coordination of care; Hypertension, essential; Mixed hyperlipidemia; Type 2 diabetes mellitus with 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, without long-term current use of insulin (HCC); Obesity (BMI 35.0-39.9 without comorbidity) Discharge Disposition: Discharged to home or Selfcare 01/28/2025 Refill [facility] [address] [place] [address] Brown, Kim M, WEATHER STRIP MECHANIC, BURR MILL OPERATOR Medication Refill 01/28/2025 Travel 01/26/2025 [facility]ill [facility] [place] [address] Kim Benavidez, WEATHER STRIP MECHANIC, BURR MILL OPERATOR Medication Refill 01/25/2025 Nurse Triage [facility] [address] [place] [phone] Kim Benavidez, WEATHER STRIP MECHANIC, BURR MILL OPERATOR Advice Only; Chest Pain 01/24/2025 Nurse Triage [facility] [address] [place] [phone] Kim Benavidez, WEATHER STRIP MECHANIC, BURR MILL OPERATOR Dizziness 01/24/2025 Refill [facility] [place] [address] Kim Benavidez, WEATHER STRIP MECHANIC, BURR MILL OPERATOR Medication Refill 01/23/2025 Nurse Triage [facility] [address] [place] [phone] Kim Benavidez, WEATHER STRIP MECHANIC, BURR MILL OPERATOR Advice Only; Dizziness; Shortness of Breath; Follow-up 01/22/2025 1:08 PM CDT - 01/22/2025 2:48 PM CDT Emergency [facility] Emergency [address] [place] [address] Melchor Cabrera DO Dizziness Discharge Disposition: Discharged to home or Selfcare 01/22/2025 Travel 01/22/2025 Nurse Triage [facility] [address] [place] [phone] Kim Benavidez, WEATHER STRIP MECHANIC, BURR MILL OPERATOR Dizziness from Last 3 Months Immunizations Immunization Administration [...] declined 03/19/2025 How often do you attend adventist or islam serv ices? Patient declined 03/19/2025 Do you [...] medical care, and heating? Patient declined 03/19/2025 [facility] - Occupational Stress [...] any time in the past 12 m [facility], were you homeless or living in a chcf (including now)? Patient declined 03/19/2025 [facility] Utilities Answer Date Recorded In the past 12 months has [employer] electric, gas, oil, or water company threatened [...] Sign Reading Time Taken Comments Blood Pressure 175/117 04/18/2025 2:30 AM TUFTING MACHINE OPERATOR Pulse 71 04/18/2025 2:30 AM TUFTING MACHINE OPERATOR Temperature 36.5 C (97.7 F) 04/17/2025 11:44 PM TUFTING MACHINE OPERATOR Respiratory Rate 16 04/18/2025 2:15 AM TUFTING MACHINE OPERATOR Oxygen Saturation 93% 04/18/2025 2:30 AM TUFTING MACHINE OPERATOR Inhaled Oxygen Concentration - - Weight 127.1 kg (280 lb 3.3 oz) 025 11:44 PM TUFTING MACHINE OPERATOR Height 177.8 cm (5' 10) 04/17/2025 11: 44 PM TUFTING MACHINE OPERATOR Body Mass Index 40.21 04/17/2025 11:44 PM TUFTING MACHINE OPERATOR Plan of Treatment Upcoming Encounters Date Type Department Care Team (Late st Contact Info) Description 05/17/2025 2:30 PM TUFTING MACHINE OPERATOR [facility] [place] [address] Kim Benavidez, WEATHER STRIP MECHANIC, BURR MILL OPERATOR [address] [place] [address] Health Maintenance Due Date Last Done Comments Diabetes: Eye Exam 1952 Diabetes: Foot Exam 1952 Cologuard 1997 Colonoscopy 1997 Colorectal Cancer Screening 1997 Immunochemical Fecal Occult Blood 1997 Respiratory Syncytial Virus (RSV) Immunization (Adult) (1 - Risk 50-74 years 1-dose series) 2002 AAA Screening Ultrasound 2017 Medicare Initial AWV [id number] 06/02/2018 Influenza Immunization (#1) 12/31/202401/30, 02/10/2021, 03/19/2020, Additional history exists SARS-COV-2 Immunization ( season) 2024 02/17/2022, 09/23/2021, 03/25/2021, Additional history exists Diabetes: Hemoglobin A1c 09/16/2025 025, 02/19/2025, 01/29/2025, Additional history exists Diabetes: Nephropathy Screening 04/18/2026 04/18/2025, 03/19/2025, 03/15/2025, Additional history exists Td Immunization Every 10 [...] complete this topic Human Papillomavirus (HPV) Immunization (No Doses Required) Completed Meningococcal Immunization (ACWY) Aged Out No longer eligible based on patient's age to complete this topic Rotavirus Immunization Aged Out No lo nger eligible based on patient's age to complete this topic Procedures Procedure Name Priority Date/Time Associated Diagnosis Comments XR SACRUM & COCCYX STAT 04/18/2025 1:17 AM TUFTING MACHINE OPERATOR XR CHEST SINGLE VIEW PORTABLE STAT 04/18/2025 1:17 AM TUFTING MACHINE OPERATOR URINALYSIS REFLEX IF INDICATED BY ABNORMAL RESULTS STAT 04/18/2025 12:45 AM TUFTING MACHINE OPERATOR CULTURE, URINE STAT 04/18/2025 12:45 AM TUFTING MACHINE OPERATOR CBC WITH AUTO DIFFERENTIAL STAT 04/18/2025 12:22 AM TUFTING MACHINE OPERATOR MAGNESIUM (MG) STAT 04/18/2025 12:22 AM TUFTING MACHINE OPERATOR APTT (PTT) STAT 04/18/2025 12:22 AM TUFTING MACHINE OPERATOR PROTIME (PT) (PROTHROMBIN TIME) STAT 04/18/2025 12:22 AM TUFTING MACHINE OPERATOR N-TERMINAL- PRO B TYPE NATRIURETIC PEPTIDE STAT 04/18/2025 12:22 AM TUFTING MACHINE OPERATOR TROPONIN I, HIGH SENSITIVITY (HSTRP) STAT 04/18/2025 12:22 AM TUFTING MACHINE OPERATOR CMP (COMPREHENSIVE METABOLIC PANEL) STAT 04/18/2025 12:22 AM TUFTING MACHINE OPERATOR COMPLETE BLOOD COUNT (CBC) WITH DIFF STAT 04/18/2025 12:22 AM TUFTING MACHINE OPERATOR RSV,SARS-COV-2,IN FLUENZA A&B BY PCR STAT 04/18/2025 12:22 AM TUFTING MACHINE OPERATOR EKG 12 LEAD STAT 04/17/2025 11:44 PM TUFTING MACHINE OPERATOR EKG SCAN 04/17/2025 12:00 AM TUFTING MACHINE OPERATOR POCT GLUCOSE Routine 03/20/2025 12:07 PM TUFTING MACHINE OPERATOR ADULT TRANS THORACIC ECHO 2D COMPLT W CONT Routine 03/20/2025 11:54 AM TUFTING MACHINE OPERATOR POCT GLUCOSE Routine 03/20/2025 7:44 AM TUFTING MACHINE OPERATOR CBC WITH AUTO DIFFERENTIAL STAT 03/20/2025 5:19 AM TUFTING MACHINE OPERATOR COMPLETE BLOOD COUNT (CBC) WITH DIFF STAT 03/20/2025 5:19 AM TUFTING MACHINE OPERATOR BASIC METABOLIC PANEL W/ CALCIUM TOTAL STAT 03/20/2025 5:19 AM TUFTING MACHINE OPERATOR RHYTHM STRIP 03/20/2025 12:00 AM TUFTING MACHINE OPERATOR RHYTHM STRIP 03/20/2025 12:00 AM TUFTING MACHINE OPERATOR RHYTHM STRIP 03/20/2025 12:00 AM TUFTING MACHINE OPERATOR POCT GLUCOSE Routine 03/19/2025 7:51 PM TUFTING MACHINE OPERATOR AEROSOL NEBULIZER-INITIAL STAT 03/19/2025 4:42 PM TUFTING MACHINE OPERATOR URINALYSIS REFLEX IF INDICATED BY ABNORMAL RESULTS STAT 03/19/2025 1:49 PM TUFTING MACHINE OPERATOR TROPONIN I, HIGH SENSITIVITY (HSTRP) STAT 03/19/2025 1:49 PM TUFTING MACHINE OPERATOR CT ANGIO CHEST W/WO CONTRAST WITH PP (POST PROCESSING) Stat with Interpretation 03/19/2025 1:35 PM TUFTING MACHINE OPERATOR EKG 12 LEAD STAT 03/19/2025 12:37 PM TUFTING MACHINE OPERATOR CRITICAL CARE Routine 03/19/2025 12:34 PM TUFTING MACHINE OPERATOR GOLD TOP TUBE STAT 03/19/2025 12:17 PM TUFTING MACHINE OPERATOR BLUE TOP TUBE STAT 03/19/2025 12:17 PM TUFTING MACHINE OPERATOR CBC WITH AUTO DIFFERENTIAL STAT 03/19/2025 12:17 PM TUFTING MACHINE OPERATOR HEMOGLOBIN A1C W/ ESTIMATED GLUCOSE STAT 03/19/2025 12:17 PM TUFTING MACHINE OPERATOR EXTRA TUBES STAT 03/19/2025 12:17 PM TUFTING MACHINE OPERATOR N-TERMINAL- PRO B TYPE NATRIURETIC PEPTIDE STAT 03/19/2025 12:17 PM TUFTING MACHINE OPERATOR MAGNESIUM (MG) STAT 03/19/2025 12:17 PM TUFTING MACHINE OPERATOR TROPONIN I, HIGH SENSITIVITY (HSTRP) STAT 03/19/2025 12:17 PM TUFTING MACHINE OPERATOR CMP (COMPREHENSIVE METABOLIC PANEL) STAT 03/19/2025 12:17 PM TUFTING MACHINE OPERATOR COMPLETE BLOOD COUNT (CBC) WITH DIFF STAT 03/19/2025 12:17 PM TUFTING MACHINE OPERATOR RHYTHM STRIP 03/19/2025 12:00 AM TUFTING MACHINE OPERATOR EKG SCAN 03/19/2025 12:00 AM TUFTING MACHINE OPERATOR POCT GLUCOSE Routine 03/18/2025 11:57 AM TUFTING MACHINE OPERATOR POCT GLUCOSE Routine 03/18/2025 7:35 AM TUFTING MACHINE OPERATOR CBC WITH AUTO DIFFERENTIAL Routine 03/18/2025 4:17 AM TUFTING MACHINE OPERATOR COMPLETE BLOOD COUNT (CBC) WITH DIFF Routine 03/18/2025 4:17 AM TUFTING MACHINE OPERATOR BASIC METABOLIC PANEL W/ CALCIUM TOTAL Routine 03/18/2025 4:17 AM TUFTING MACHINE OPERATOR RHYTHM STRIP 03/18/2025 12:00 AM TUFTING MACHINE OPERATOR RHYTHM STRIP 03/18/2025 12:00 AM TUFTING MACHINE OPERATOR POCT GLUCOSE Routine 03/17/2025 8:57 PM TUFTING MACHINE OPERATOR POCT GLUCOSE Routine 03/17/2025 4:59 PM TUFTING MACHINE OPERATOR POCT GLUCOSE Routine 03/17/2025 12:09 PM TUFTING MACHINE OPERATOR POCT GLUCOSE Routine 03/17/2025 7:28 AM TUFTING MACHINE OPERATOR CBC WITH AUTO DIFFERENTIAL Routine 03/17/2025 4:18 AM TUFTING MACHINE OPERATOR COMPLETE BLOOD COUNT (CBC) WITH DIFF Routine 03/17/2025 4:18 AM TUFTING MACHINE OPERATOR BASIC METABOLIC PANEL W/ CALCIUM TOTAL Routine 03/17/2025 4:18 AM TUFTING MACHINE OPERATOR RHYTHM STRIP 03/17/2025 12:00 AM TUFTING MACHINE OPERATOR RHYTHM STRIP 03/17/2025 12:00 AM TUFTING MACHINE OPERATOR POCT GLUCOSE Routine 03/16/2025 8:44 PM TUFTING MACHINE OPERATOR POCT GLUCOSE Routine 03/16/2025 4:23 PM TUFTING MACHINE OPERATOR POCT GLUCOSE Routine 03/16/2025 11:53 AM TUFTING MACHINE OPERATOR CBC WITH AUTO DIFFERENTIAL Routine 03/16/2025 8:04 AM TUFTING MACHINE OPERATOR COMPLETE BLOOD COUNT (CBC) WITH DIFF Routine 03/16/2025 8:04 AM TUFTING MACHINE OPERATOR BASIC METABOLIC PANEL W/ CALCIUM TOTAL Routine 03/16/2025 8:04 AM TUFTING MACHINE OPERATOR POCT GLUCOSE Routine 03/16/2025 7:36 AM TUFTING MACHINE OPERATOR RHYTHM STRIP 03/16/2025 12:00 AM TUFTING MACHINE OPERATOR POCT GLUCOSE Routine 03/15/2025 8:27 PM TUFTING MACHINE OPERATOR POCT GLUCOSE Routine 03/15/2025 4:21 PM TUFTING MACHINE OPERATOR POCT GLUCOSE Routine 03/15/2025 1:54 PM TUFTING MACHINE OPERATOR XR CHEST SINGLE VIEW PORTABLE STAT 03/15/2025 11:26 AM TUFTING MACHINE OPERATOR TROPONIN I, HIGH SENSITIVITY (HSTRP) STAT 03/15/2025 11:16 AM TUFTING MACHINE OPERATOR N-TERMINAL- PRO B TYPE NATRIURETIC PEPTIDE STAT 03/15/2025 11:16 AM TUFTING MACHINE OPERATOR RSV,SARS-COV-2,IN FLUENZA A&B BY PCR STAT 03/15/2025 10:05 AM TUFTING MACHINE OPERATOR GOLD TOP TUBE STAT 03/15/2025 9:44 AM TUFTING MACHINE OPERATOR BLUE TOP TUBE STAT 03/15/2025 9:44 AM TUFTING MACHINE OPERATOR CBC WITH AUTO DIFFERENTIAL STAT 03/15/2025 9:44 AM TUFTING MACHINE OPERATOR TROPONIN I, HIGH SENSITIVITY (HSTRP) STAT 03/15/2025 9:44 AM TUFTING MACHINE OPERATOR MAGNESIUM (MG) STAT 03/15/2025 9:44 AM TUFTING MACHINE OPERATOR EXTRA TUBES STAT 03/15/2025 9:44 AM TUFTING MACHINE OPERATOR N-TERMINAL- PRO B TYPE NATRIURETIC PEPTIDE STAT 03/15/2025 9:44 AM TUFTING MACHINE OPERATOR CMP (COMPREHENSIVE METABOLIC PANEL) STAT 03/15/2025 9:44 AM TUFTING MACHINE OPERATOR COMPLETE BLOOD COUNT (CBC) WITH DIFF STAT 03/15/2025 9:44 AM TUFTING MACHINE OPERATOR EKG 12 LEAD STAT 03/15/2025 9:39 AM TUFTING MACHINE OPERATOR RHYTHM STRIP 03/15/2025 12:00 AM TUFTING MACHINE OPERATOR RHYTHM STRIP 03/15/2025 12:00 AM TUFTING MACHINE OPERATOR EKG SCAN 03/15/2025 12:00 AM TUFTING MACHINE OPERATOR LACTIC ACID (LACTATE) STAT 02/25/2025 6:17 PM CDT URINALYSIS REFLEX IF INDICATED BY ABNORMAL RESULTS STAT 02/25/2025 6:17 PM CDT TROPONIN I, HIGH SENSITIVITY (HSTRP) STAT 02/25/2025 5:05 PM CDT XR CHEST SINGLE VIEW PORTABLE STAT 02/25/2025 4:[address] HEAD OR BRAIN WO CONTRAST Stat with Interpretation 02/25/2025 4:38 PM CDT LACTIC ACID (LACTATE) STAT 02/25/2025 4:17 PM CDT CBC WITH AUTO DIFFERENTIAL STAT 02/25/2025 4:04 PM CDT MAGNESIUM (MG) STAT 02/25/2025 4:04 PM CDT TROPONIN I, HIGH SENSITIVITY (HSTRP) STAT 02/25/2025 4:04 PM CDT CMP (COMPREHENSIVE METABOLIC PANEL) STAT 02/25/2025 4:04 PM CDT COMPLETE BLOOD COUNT (CBC) WITH DIFF STAT 02/25/2025 4:04 PM CDT RSV,SARS-COV-2,IN FLUENZA A&B BY PCR STAT 02/25/2025 4:04 PM CDT EKG 12 LEAD STAT 02/25/2025 3:53 PM CDT EKG SCAN 02/25/2025 12:00 AM CDT CBC WITH AUTO DIFFERENTIAL Routine 02/19/2025 2:36 PM CDT Preoperative clearance Cataract of left eye, unspecified cataract type COMPLETE BLOOD COUNT (CBC) WITH DIFF Routine 02/19/2025 2:36 PM CDT Preoperative clearance Cataract of left eye, unspecified cataract type CMP (COMPREHENSIVE METABOLIC PANEL) Routine 02/19/2025 2:36 PM CDT Preoperative clearance Cataract of left eye, unspecified cataract type HEMOGLOBIN A1C W/ ESTIMATED GLUCOSE Routine 02/19/2025 2:36 PM CDT Preoperative clearance Cataract of left eye, unspecified cataract type Type 2 diabetes mellitus with 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, without long-term current use of insulin CT CERVICAL SPINE WO/ CONTRAST Stat with Interpretation 02/04/2025 11:29 AM CDT Neck pain on right side Frequent falls CT HEAD OR BRAIN WO CONTRAST Stat with Interpretation 02/04/2025 11:28 AM CDT Neck pain on right side Frequent falls CT HEAD OR BRAIN WO CONTRAST Stat with Interpretation 01/30/2025 4:36 PM CDT URINALYSIS REFLEX IF INDICATED BY ABNORMAL RESULTS STAT 01/30/2025 4:20 PM CDT CBC WITH AUTO DIFFERENTIAL STAT 01/30/2025 4:07 PM CDT MAGNESIUM (MG) STAT 01/30/2025 4:07 PM CDT CMP (COMPREHENSIVE METABOLIC PANEL) STAT 01/30/2025 4:07 PM CDT TROPONIN I, HIGH SENSITIVITY (HSTRP) STAT 01/30/2025 4:07 PM CDT PROTIME (PT) (PROTHROMBIN TIME) STAT 01/30/2025 4:07 PM CDT APTT (PTT) STAT 01/30/2025 4:07 PM CDT COMPLETE BLOOD COUNT (CBC) WITH DIFF STAT 01/30/2025 4:07 PM CDT EKG 12 LEAD STAT 01/30/2025 3:51 PM CDT POCT GLUCOSE Routine 01/30/2025 8:32 AM CDT CBC WITH AUTO DIFFERENTIAL Routine 01/30/2025 4:35 AM CDT COMPLETE BLOOD COUNT (CBC) WITH DIFF Routine 01/30/2025 4:35 AM CDT BASIC METABOLIC PANEL W/ CALCIUM TOTAL Routine 01/30/2025 4:35 AM CDT LIPID PANEL STAT 01/30/2025 4:35 AM CDT EKG SCAN 01/30/2025 12:00 AM CDT RHYTHM STRIP 01/30/2025 12:00 AM CDT POCT GLUCOSE Routine 01/29/2025 10:01 PM CDT EKG 12 LEAD Routine 01/29/2025 9:50 PM CDT POCT GLUCOSE Routine 01/29/2025 6:16 PM CDT MRSA NASAL PCR Routine 01/29/2025 5:26 PM CDT MRSA NASAL BY PCR Routine 01/29/2025 5:26 PM CDT OT EVALUATE AND TREAT Routine 01/29/2025 4:[address] ANGIO HEAD AND NECK WWO CONTRAST W PP Stat with Interpretation 01/29/2025 2:17 PM CDT XR CHEST SINGLE VIEW PORTABLE STAT 01/29/2025 12:45 PM CDT CRITICAL CARE Routine 01/29/2025 12:37 PM CDT GOLD TOP TUBE STAT 01/29/2025 12:14 PM CDT CBC WITH AUTO DIFFERENTIAL STAT 01/29/2025 12:14 PM CDT HEMOGLOBIN A1C W/ ESTIMATED GLUCOSE Routine 01/29/2025 12:14 PM CDT EXTRA TUBES STAT 01/29/2025 12:14 PM CDT PROTIME (PT) (PROTHROMBIN TIME) STAT 01/29/2025 12:14 PM CDT APTT (PTT) STAT 01/29/2025 12:14 PM CDT COMPLETE BLOOD COUNT (CBC) WITH DIFF STAT 01/29/2025 12:14 PM CDT BASIC METABOLIC PANEL W/ CALCIUM TOTAL STAT 01/29/2025 12:14 PM CDT RSV,SARS-COV-2,IN FLUENZA A&B BY PCR STAT 01/29/2025 12:13 PM CDT EKG 12 LEAD STAT 01/29/2025 12:[address] STROKE HEAD WO CONTRAST Stat with Interpretation 01/29/2025 12:08 PM CDT POCT GLUCOSE STAT 01/29/2025 11:52 AM CDT EKG SCAN 01/29/2025 12:00 AM CDT RHYTHM STRIP 01/29/2025 12:00 AM CDT EKG SCAN 01/29/2025 12:00 AM CDT GOLD TOP TUBE STAT 01/22/2025 1:46 PM CDT BLUE TOP TUBE STAT 01/22/2025 1:46 PM CDT CBC WITH AUTO DIFFERENTIAL STAT 01/22/2025 1:46 PM CDT EXTRA TUBES STAT 01/22/2025 1:46 PM CDT TROPONIN I, HIGH SENSITIVITY (HSTRP) STAT 01/22/2025 1:46 PM CDT COMPLETE BLOOD COUNT (CBC) WITH DIFF STAT 01/22/2025 1:46 PM CDT CMP (COMPREHENSIVE METABOLIC PANEL) STAT 01/22/2025 1:46 PM CDT EKG 12 LEAD STAT 01/22/2025 1:18 PM CDT EKG SCAN 01/22/2025 12:00 AM CDT HEPATITIS C ANTIBODY Routine 10/08/2024 11:30 AM CDT Need for hepatitis C screening test PSA DIAGNOSTIC,TOTAL Routine 02/19/2019 10:38 AM CDT BPH with obstruction/lower urinary tract symptoms Urgency of urination Abnormal prostate biopsy from Last 3 Months or Most Recently Relevant to Health Maintenance Results * XR SACRUM & COCCYX (04/18/2025 1:17 AM TUFTING MACHINE OPERATOR) Anatomical Region Laterality Modality Spine, Sacrum, Coccyx N/A Digital Ra diography 04/18/2025 1:17 AM TUFTING MACHINE OPERATOR Impressions 04/18/2025 2:33 PM TUFTING MACHINE OPERATOR Findings/Impression: Normal osseous mineralization. No acute fracture. No dislocation. No destructive osseous lesion. No diastases. Degenerative changes in lower lumbar spine, sacroiliac joints, pubic symphysis, and bilateral hips. Narrative 04/18/2025 2:33 PM TUFTING MACHINE OPERATOR Dictating physician: Denia Solis DO Exam: XR SACRUM & COCCYX 3 views Date: 04/18/2025 1:17 AM History: Fall Comparison: None. Procedure Note Bj Solis DO - 04/18/2025 Dictating physician: Denia Solis DO Exam: XR SACRUM & COCCYX 3 views Date: 04/18/2025 1:17 AM History: Fall Comparison: None. Findings/Impression: Normal osseous mineralization. No acute fracture. No dislocation. Nodestructive osseous lesion. No diastases. Degenerative changes in lowerlumbar spine, sacroiliac joints, pubic symphysis, and bilateral hips. us Ignacio Posey MD IM DIAGNOSTIC ORDERABLES Final Result * XR CHEST SINGLE VIEW PORTABLE (04/18/2025 1:17 AM TUFTING MACHINE OPERATOR) Only the most recent of4 resultswithin the time period is included. Anatomical Region Laterality Modality Chest N/A Computed Radiogr aphy 04/18/2025 1:17 AM TUFTING MACHINE OPERATOR Impressions 04/18/2025 2:28 PM TUFTING MACHINE OPERATOR IMPRESSION: Low lung volumes with bronchovascular crowding. Linear densities in the right lung base are most consistent with subsegmental atelectasis and/or scarring. Narrative 04/18/2025 2:28 PM TUFTING MACHINE OPERATOR DICTATING PHYSICIAN: Mina Pimentel M.D. EXAM: XR CHEST SINGLE VIEW PORTABLE DATE: 04/18/2025 1:17 AM COMPARISON: Chest CT performed on 03/19/2025 and chest radiograph performed on 03/15/2025 HISTORY: Chest Pain. 2 falls in the past 2 days. FINDINGS: Low lung volumes with bronchovascular crowding. Stable cardiomegaly without overt pulmonary edema. Linear densities in the right lung base are most consistent with subsegmental atelectasis and/or scarring. Possible small right pleural effusion. No pneumothorax. Procedure Note Mina Pimentel MD - 04/18/2025 DICTATING PHYSICIAN: Mina Pimentel M.D. EXAM: XR CHEST SINGLE VIEW PORTABLE DATE: 04/18/2025 1:17 AM COMPARISON: Chest CT performed on 03/19/2025 and chest radiographperformed on 03/15/2025 HISTORY: Chest Pain. 2 falls in the past 2 days. FINDINGS: Low lung volumes with bronchovascular crowding. Stable cardiomegalywithout overt pulmonary edema. Linear densities in the right lung base aremost consistent with subsegmental atelectasis and/or scarring. Possiblesmall right pleural effusion. No pneumothorax. IMPRESSION: Low lung volumes with bronchovascular crowding. Linear densities in theright lung base are most consistent with subsegmental atelectasis and/orscarring. Ignacio Posey MD IMG DIAGNOSTIC ORDERABLES Final Result * (ABNORMAL) Urinalysis w/ Reflex (04/18/2025 12:45 AM TUFTING MACHINE OPERATOR) Only the most recent of4 resultswithin the time period is included. SPECIFIC GRAVITY 1.015 1.003 - 1.030 04/18/2025 1:36 AM TUFTING MACHINE OPERATOR [facility] URINE PH 5.0 5.0 - 9.0 04/18/2025 1:36 AM TUFTING MACHINE OPERATOR [facility] WBC ESTERASE 25 /ul(A) Negative 04/18/2025 1:36 AM TUFTING MACHINE OPERATOR [facility] NITRITE Negative Negative 04/18/2025 1:36 AM TUFTING MACHINE OPERATOR [facility] PROTEIN, RANDOM URINE 100 mg/dL(A) Negative 04/18/2025 1:36 AM TUFTING MACHINE OPERATOR [facility] URINE GLUCOSE, QUAL 1000 mg/dL(A) Negative 04/18/2025 1:36 AM TUFTING MACHINE OPERATOR [facility] URINE KETONES Negative Negative 04/18/2025 1:36 AM TUFTING MACHINE OPERATOR [facility] UROBILINOGEN Normal Normal mg/dL 04/18/2025 1:36 AM TUFTING MACHINE OPERATOR [facility] URINE BLOOD 10 /uL(A) Negative shayna/ul 04/18/2025 1:36 AM TUFTING MACHINE OPERATOR [facility] URINALYSIS COLOR Yellow 04/18/20 25 1:36 AM TUFTING MACHINE OPERATOR [facility] URINALYSIS CLARITY Slightly Cloudy 04/18/2025 1:36 AM [facility] WBC (Urine) 6-10(A) Negative, 0-5 /hpf 04/18/2025 1:36 AM TUFTING MACHINE OPERATOR [facility] URINE RBC'S 3-5(A) Negative, 0-2 /hpf 04/18/2025 1:36 AM TUFTING MACHINE OPERATOR [facility] EPITHELIAL CELLS Small amount /lpf 2024 1:36 AM TUFTING MACHINE OPERATOR [facility] BACTERIA, URINE Few(A) Negative /hpf 04/18/2025 1:36 AM TUFTING MACHINE OPERATOR [facility] URINE MUCOUS Few 04/18/2025 1:36 AM TUFTING MACHINE OPERATOR [facility] Urine URINE SPECIMEN / Unknown Non-Phlebotomy Collection / Unknown 04/18/2025 12:45 AM TUFTING MACHINE OPERATOR 04/18/2025 12:50 AM TUFTING MACHINE OPERATOR us Ignacio Posey MD URINE ORDERABLES Final Re sult Performing Organization Address City/[facility]/ZIP Co de Phone Number [facility] [place] [address] * Culture, Urine (04/18/2025 12:45 AM TUFTING MACHINE OPERATOR) CULTURE RESULTS Mixed Growth of One or More Distal Urethral Contaminants 04/19/2025 9:31 AM TUFTING MACHINE OPERATOR [facility] Urine URINE SPECIMEN / Unknown Non-Phlebotomy Collection / Unknown 04/18/2025 12:45 AM TUFTING MACHINE OPERATOR 04/18/2025 12:50 AM TUFTING MACHINE OPERATOR us Ignacio Posey MD MICROBIOLOGY - GENERAL OR DERABLES Final Result Performing Organization Address City/[facility]/ZIP Co de Phone Number [facility] [address] [place] [address], * (ABNORMAL) NT-proBNP (04/18/2025 12:22 AM TUFTING MACHINE OPERATOR) Only the most recent of4 resultswithin the time period is included. NT PROBNP 636.4(H) <450.0 pg/mL 04/18/2025 12:52 AM TUFTING MACHINE OPERATOR [facility] Comment: AGE pg/mL [...] decrease NT-proBNP values. Blood Venipuncture / Unknown 04/18/2025 12:22 AM TUFTING MACHINE OPERATOR 04/18/2025 12:28 AM TUFTING MACHINE OPERATOR us Ignacio Posey MD CHEMISTRY ORDERABLES Holly l Result [facility] [place] [address] * RSV,SARS-COV-2,INFLUENZA A&B BY PCR (04/18/2025 12:22 AM TUFTING MACHINE OPERATOR) Only the most recent of4 resultswithin the time period is included. FLU A Negative Negative, Error 04/18/2025 1:07 AM TUFTING MACHINE OPERATOR [facility] FLU B Negative Negative 04/18/2025 1:07 AM TUFTING MACHINE OPERATOR [facility] RESP SYNC VIRUS Negative Negative 1:07 AM TUFTING MACHINE OPERATOR [facility] SARSCOV2 NOT DETECTED (Reference Range for this test is Not Detected) 04/18/2025 1:07 AM TUFTING MACHINE OPERATOR [facility] Comment:This test was perfor med by a Reverse Band Tier PCR Method. Nasal NASOPHARYNGEAL SWAB / Unknown Non-Phlebotomy Collection / Unknown 04/18/2025 12:22 AM TUFTING MACHINE OPERATOR 04/18/2025 12:28 AM TUFTING MACHINE OPERATOR us Ignacio Posey MD MICROBIOLOGY - GENERAL OR DERABLES Final Result Performing Organization Address City/[facility]/ZIP Co de Phone Number [facility] [place] [address] * TROPONIN I, HIGH SENSITIVITY (HSTRP) (04/18/2025 12:22 AM TUFTING MACHINE OPERATOR) Only the most recent of9 resultswithin the time period is included. [facility] TROPONIN I, HIGH SENSITIVITY- [place] 14.1 <=35.0 ng/L 04/18/2025 12:52 AM TUFTING MACHINE OPERATOR [facility] Comment: High-sensitivity troponin I results are reported in ng/L making the result appear to be 1,000 times higher than the contemporary troponin I value which is reported in ng/ml. Results from [place]. Blood Venipuncture / Unknown 04/18/2025 12:22 AM TUFTING MACHINE OPERATOR 04/18/2025 12:28 AM TUFTING MACHINE OPERATOR us Ignacio Posey MD CHEMISTRY ORDERABLES Holly leigh Result [facility] [place] [address] * (ABNORMAL) CBC with Auto Differential (04/18/2025 12:22 AM TUFTING MACHINE OPERATOR) Only the most recent of13 resultswithin the time period is included. [facility] WBC 12.18(H) 4.00 - 12.00 10(3)/mcL 04/18/2025 12:57 AM TUFTING MACHINE OPERATOR [facility] RBC 4.87 4.40 - 5.80 10(6)/mcL 04/18/2025 12:57 AM TUFTING MACHINE OPERATOR [facility] HEMOGLOBIN (HGB) 14.1 13.0 - 16.5 g/dL 04/18/2025 12:57 AM TUFTING MACHINE OPERATOR [facility] HEMATOCRIT (HCT) 45.2 38.0 - 50.0 % 04/18/2025 12:57 AM TUFTING MACHINE OPERATOR [facility] MCV 92.8 82.0 - 96.0 fL 04/18/2025 12:57 AM TUFTING MACHINE OPERATOR [facility] MCH 29.0 26.0 - 32.0 pg 04/18/2025 12:57 AM TUFTING MACHINE OPERATOR [facility] MCHC 31.2 31.0 - 36.0 g/dL 04/18/2025 12:57 AM [facility] PLATELET COUNT 205 140 - 440 10(3)/[facility] 04/18/2025 12:57 AM [facility] RDW 14.3 11.8 - 15.5 % 04/18/2025 12:57 AM [facility] MPV 10.0 8.0 - 12.6 fL 04/18/2025 12:57 AM [facility] NEUTROPHILS 79.0(H) 40.0 - 68.0 % 04/18/2025 12:57 AM [facility] LYMPHOCYTES 7.7(L) 19.0 - 49.0 % 04/18/2025 12:57 AM [facility] MONOCYTES 7.9 3.0 - 13.0 % 04/18/2025 12:57 AM [facility] EOSINOPHILS 1.1 0.0 - 8.0 % 04/18/2025 12:57 AM [facility] BASOPHILS 0.4 0.0 - 1.0 % 04/18/2025 12:57 AM [facility] IMMATURE GRANULOCYTE 3.9(H) 0.0 - 0.4 % 04/18/2025 12:57 AM [facility] Comment:Immature Granulocyte s includes Metamyelocytes, Myelocytes, and Promyelocytes. ABSOLUTE NEUTROPHILS 9.62(H) 1.40 - 5.30 10(3)/mcL 04/18/2025 12:57 AM [facility] ABSOLUTE LYMPHOCYTES 0.94 0.90 - 3.30 10(3)/[facility] 04/18/2025 12:57 AM [facility] ABSOLUTE MONOCYTES 0.96(H) 0.10 - 0.90 10(3)/mcL 04/18/2025 12:57 AM [facility] ABSOLUTE EOSINOPHIL 0.13 0.00 - 0.50 10(3)/[facility] 04/18/2025 12:57 AM [facility] ABSOLUTE BASOPHILS 0.05 0.00 - 0.10 10(3)/mcL 04/18/2025 12:57 AM TUFTING MACHINE OPERATOR [facility] ABSOLUTE IMMATURE GRANULOCYTE 0.48(H) 0.00 - 0.03 10 (3) mcL. 04/18/2025 12:57 AM TUFTING MACHINE OPERATOR [facility] NRBC PER 100 WBC 0 04/18/20 12:57 AM TUFTING MACHINE OPERATOR [facility] Blood Venipuncture / Unknown 04/18/2025 12:22 AM TUFTING MACHINE OPERATOR 04/18/2025 12:28 AM TUFTING MACHINE OPERATOR Ignacio Posey MD HEMATOLOGY ORDERABLES Fin al Result Performing Organization Address [facility] Co de Phone Number [facility] [place] [address] * APTT (PTT) (04/18/2025 12:22 AM TUFTING MACHINE OPERATOR) Only the most recent of3 resultswithin the time period is included. PTT 34 24 - 36 sec 04/18/2025 1:35 AM TUFTING MACHINE OPERATOR [facility] Blood Venipuncture / Unknown 04/18/2025 12:22 AM TUFTING MACHINE OPERATOR 04/18/2025 12:28 AM TUFTING MACHINE OPERATOR Narrative [facility] - 04/18/2025 1:35 AM TUFTING MACHINE OPERATOR Therapeutic range for unfractionated heparin at 0.3-0.7 U/mL is an aPTT value in the range of 71-100 seconds. Critical value for the PTT test is >= 122 seconds. us Ignacio Posey MD HEMATOLOGY ORDERABLES Fin al Result Performing Organization Address [facility] Co de Phone Number [facility] [place] [address] * PT / INR (04/18/2025 12:22 AM TUFTING MACHINE OPERATOR) Only the most recent of3 resultswithin the time period is included. PROTIME-PATIENT 14.3 11.6 - 14.8 sec 04/18/2025 1:35 AM TUFTING MACHINE OPERATOR [facility] INR 1.1 0.9 - 1.2 04/18/2025 1:35 AM TUFTING MACHINE OPERATOR [facility] Comment: Therapeutic Ranges INR = 2.0-3.0: Venous thromb, atrial fib, pul embolism, tissue heart valve, ami. INR = 2.5-3.5: Mechanical heart valve Critical value for INR is >/= 4.5 Blood Venipuncture / Unknown 04/18/2025 12:22 AM TUFTING MACHINE OPERATOR 04/18/2025 12:28 AM TUFTING MACHINE OPERATOR Ignacio Posey MD HEMATOLOGY ORDERABLES Fin al Result Performing Organization Address City/[facility]/ZIP Co de Phone Number [facility] [place] [address] * Magnesium (04/18/2025 12:22 AM TUFTING MACHINE OPERATOR) Only the most recent of5 resultswithin the time period is included. MAGNESIUM 2.1 1.6 - 2.6 mg/dL 04/18/2025 12:49 AM TUFTING MACHINE OPERATOR [facility] Blood Venipuncture / Unknown 04/18/2025 12:22 AM TUFTING MACHINE OPERATOR 04/18/2025 12:28 AM TUFTING MACHINE OPERATOR Ignacio Posey MD CHEMISTRY ORDERABLES Holly l Result Performing Organization Address City/[facility]/ZIP Co de Phone Number [facility] [place] [address] * (ABNORMAL) CMP (Comprehensive Metabolic Panel) (04/18/2025 12:22 AM TUFTING MACHINE OPERATOR) Only the most recent of7 resultswithin the time period is included. SODIUM 144 136 - 145 mmol/L 04/18/2025 12:49 AM TUFTING MACHINE OPERATOR [facility] POTASSIUM 3.7 3.5 - 5.1 mmol/L 04/18/2025 12:49 AM TUFTING MACHINE OPERATOR [facility] CHLORIDE 110(H) 98 - 107 mmol/L 04/18/2025 12:49 AM [facility] CO2, VENOUS 24 22 - 30 mmol/L 04/18/2025 12:49 AM [facility] ANION GAP 13.7 <18.0 mmol/L 04/18/2025 12:49 AM [facility] GLUCOSE 107(H) 70 - 99 mg/dL 04/18/2025 12:49 AM [facility] BUN 17 8 - 26 mg/dL 04/18/2025 12:49 AM [facility] CREATININE, BLOOD 1.19 0.70 - 1.30 mg/dL 04/18/2025 12:49 AM [facility] BUN/CREATININE RATIO 14 12 - 20 ratio 04/18/2025 12:49 AM [facility] TOTAL PROTEIN 6.6 6.0 - 8.0 g/dL 04/18/2025 12:49 AM [facility] ALBUMIN 4.0 3.5 - 5.0 g/dL 04/18/2025 12:49 AM [facility] A/G RATIO 1.5 1.0 - 2.2 04/18/2025 12:49 AM [facility] CALCIUM 9.1 8.7 - 10.5 mg/dL 04/18/2025 12:49 AM [facility] T BILI 0.6 0.2 - 1.2 mg/dL 04/18/2025 12:49 AM [facility] SGOT (AST) 24 <43 U/L 04/18/2025 12:49 AM [facility] SGPT (ALT) 21 <56 U/L 04/18/2025 12:49 AM [facility] ALKALINE PHOSPHATASE 128 40 - 150 U/L 04/18/2025 12:49 AM [facility] GFR, ESTIMATED >60 >=60 04/18/2025 12:49 AM [facility] Comment: Creatinine Clearance is the preferred criteria for selecting drug dose adjustments in renally impaired patients. The GFR is provided as additional pertinent clinical information. GFR is reported in mL/min/1.73 sq m. Calculation based on the 2020 Chronic Kidney Disease Epidemiology Collaboration (CKD-EPI) equation refit without adjustment for race. GFR, EST. >60 >=60 025 12:49 AM TUFTING MACHINE OPERATOR [facility] Comment: Creatinine Clearance is the preferred criteria for selecting drug dose adjustments in renally impaired patients. The GFR is provided as additional pertinent clinical information. GFR is reported in mL/min/1.73 sq m. Calculation based on the 2009 Chronic Kidney Disease Epidemiology Collaboration (CKD-EPI). GFR, EST. NONAFRICAN 60 >=60 04/18/2025 12:49 AM TUFTING MACHINE OPERATOR [facility] Comment: Creatinine Clearance is the preferred criteria for selecting drug dose adjustments in renally impaired patients. The GFR is provided as additional pertinent clinical information. GFR is reported in mL/min/1.73 sq m. Calculation based on the 2009 Chronic Kidney Disease Epidemiology Collaboration (CKD-EPI). Blood Venipuncture / Unknown 04/18/2025 12:22 AM TUFTING MACHINE OPERATOR 04/18/2025 12:28 AM TUFTING MACHINE OPERATOR us Ignacio Posey MD CHEMISTRY ORDERABLES Holly l Result [facility] [place] [address] * EKG 12 LEAD (04/17/2025 11:44 PM TUFTING MACHINE OPERATOR) Only the most recent of8 resultswithin the time period is included. Ventricular Rate 72 BPM EXTERNAL EKG Atrial Rate 72 BPM EXTERNAL EKG P-R Interval 196 ms EXTERNAL EKG QRS Duration 72 ms EXTERNAL EKG Q-T Duration 412 ms EXTERNAL EKG QTC CALCULATION 451 ms EXTERNAL EKG P [place] -18 degrees EXTERNAL EKG R [place] -18 degrees EXTERNAL EKG T [place] 85 degrees EXTERNAL EKG 04/17/2025 11:4 4 PM TUFTING MACHINE OPERATOR Impressions EXTERNAL EKG - 04/18/2025 10:57 AM TUFTING MACHINE OPERATOR Normal sinus rhythm Low voltage QRS Borderline ECG When compared with ECG of 19-MAR-2025 12:37, No significant change was found Confirmed by SUSANNA DAVIS ([id number]) on 04/18/2025 10:57:11 AM Narrative Procedure Note Susanna Davis MD - 04/18/2025 IMPRESSION: Normal sinus rhythm Low voltage QRS Borderline ECG When compared with ECG of 19-MAR-2025 12:37, No significant change was found Confirmed by SUSANNA DAVIS ([id number]) on 04/18/2025 10:57:11 AM us Ignacio Posey MD IMG ECG ORDERABLES Final Result Performing Organization Address City/[facility] Co de Phone Number EXTERNAL EKG * EKG SCAN (04/17/2025 12:00 AM TUFTING MACHINE OPERATOR) Only the most recent of8 resultswithin the time period is included. 04/17/2025 us Provider Scan IMG ECG ORDERABLES Final Result Performing Organization Address City/[facility] Co de Phone Number RESULTING AGENCY * (ABNORMAL) POCT Glucose (03/20/2025 12:07 PM TUFTING MACHINE OPERATOR) Only the most recent of20 resultswithin the time period is included. GLUCOSE,BEDSID E POCT 173(H) 70 - 99 mg/dL 03/20/2025 12:08 PM TUFTING MACHINE OPERATOR [facility] Blood 03/20/2025 12:0 7 PM TUFTING MACHINE OPERATOR 03/20/2025 12:08 PM TUFTING MACHINE OPERATOR us None Provider POINT OF CARE TESTING Final Resu lt Performing Organization Address [facility] Co de Phone Number [facility] [place] [address] * ADULT TRANS THORACIC ECHO 2D COMPLT W CONT (03/20/2025 11:54 AM TUFTING MACHINE OPERATOR) AV Peak Grad mmHg 13.99 mmHg RESULTING AGENCY Mean Aortic Valve Gradient (MAVG) 8 mmHg RESULTING AGENCY LV end henry diam cm 4.4 cm RESULTING AGENCY LV end sys diam cm 2.9 cm RESULTING AGENCY Aortic Root Diam cm 3.1 cm RESULTING AGENCY LA vol index ml/m2 41 ml/m2 RESULTING AGENCY LVOT Peak [place] m/sec 1.48 m/sec RESULTING AGENCY AV Peak [place] m/sec 1.87 m/sec RESULTING AGENCY MV Mean Grad mmHg 3 mmHg RESULTING AGENCY E/A Ratio 0.68 RESULTING AGENCY TR [place] m/sec 2.4 m/sec RESULTI NG AGENCY E/E' 12.4 RESULTING AGENCY AV Area (VTI) cm2 2.6 cm2 RESULTING AGENCY SEPTUM DIASTOLIC CM 1.5 cm RESULTING AGENCY PW DIASTOLIC CM 1.5 cm RESU LTING AGENCY LA VOLUME 95 ml RESULTING AGENCY LV EF(estimated)% 68 RESULTING AGENCY Anatomical Region Laterality Modality CARDIO N/A Ultrasound Narrative 03/20/2025 2:52 PM TUFTING MACHINE OPERATOR Transthoracic Echocardiography Report (TTE) Patient name ZACKERY Interiano Pola 1950 Patient ID (UPI) [id number] Indications: Heart Failure preserved EF (HFpEF. Study Date03/20/2025 Technical quality: Limited visualization Limitation Reason: Dense Tissue Type of Study: TTE procedure: Adult Trans Thoracic Echo 2D Complete. Priority:RoutineHR: 68 bpmBP: 186/75 mmHg Contrast Medium: Lumason. Amount - 3 ml Conclusions Summary The left ventricle is normal in size. Severe concentric left ventricular hypertrophy is present. LV function is normal. There are no regional wall motion abnormalities. LV EF of 65-70%. Grade I diastolic dysfunction. Left atrium is mildly dilated. The right atrium is moderately dilated. Findings Mitral Valve The mitral valve is normal. No evidence of mitral stenosis. No significant mitral regurgitation. Aortic Valve The aortic valve is trileaflet with normal leaflet excursion. Aortic valve is thicken. There is no evidence of aortic valve stenosis. There is no significant aortic valve insufficiency. Tricuspid Valve The tricuspid valve is normal. There is no evidence of tricuspid stenosis. Trace tricuspid valve regurgitation. Insufficient TR jet to estimate PASP. Pulmonic Valve The pulmonic valve structure appears normal. There is no evidence of pulmonic stenosis. There is no significant pulmonic valve regurgitation. Left Atrium Left atrium is mildly dilated. Left Ventricle The left ventricle is normal in size. Severe concentric left ventricular hypertrophy is present. LV function is normal. There are no regional wall motion abnormalities. LV EF of 65-70%. Grade I diastolic dysfunction. Right Atrium The right atrium is moderately dilated. Right Ventricle Normal right ventricular cavity size and normal systolic function. Pericardial Effusion The pericardium is normal. There is no pericardial effusion visualized. Miscellaneous Aortic root is normal in size. Proximal ascending aorta is borderline dilated measuring 3.6 cm. IVC not well visualized. Valves Mitral Valve Peak E-Wave: 0.96 m/s Area (continuity): 3.2 cm^2 Peak A-Wave: 1.41 m/s Mean Velocity: 0.76 m/s Peak Gradient: 3.69 mmHg Mean Gradient: 3 mmHg Deceleration Time: 174 msec Tissue Doppler E' Velocity: 0.06 m/s E/E':12.4 E/A Ratio: 0.68 E/Lat E': 12.4 E/Med E':15.2 Aortic Valve Area (continuity): 2.6 cm^2 Mean Velocity: 1.21 m/s Area (VTI):2.6 cm^2 Mean Gradient: 8 mmHg Peak Velocity: 1.87 m/s AV VTI: 39.8 cm Peak Gradient: 13.99 mmHg Tricuspid Valve Peak E-Wave: 0.67 m/s Peak Gradient: 1.84 mmHg TR Velocity: 2.4 m/s TR Gradient: 23.04 mmHg Pulmonic Valve Peak Velocity: 1.16 m/s Mean Velocity: 0.77 m/s Peak Gradient: 5.38 mmHg Mean Gradient: 3 mmHg LVOT Peak Velocity: 1.48 m/s Mean Velocity: 0.99 m/s Peak Gradient: 9 mmHg Mean Gradient: 5 mmHg LVOT Diameter: 2 cm LVOT VTI: 33 cm Stroke Volume: 104 ml Stroke Volume Index: 44.44 ml/m^2 Structures Left Ventricle Diastolic Dimension: 4.4 cm Systolic Dimension: 2.9 cm Septum Diastolic: 1.5 cm Septum Systolic: 1.9 cm PW Diastolic: 1.5 cm PW Systolic: 1.9 cm Diastolic Length: 32.6 cm Systolic Length: 17 cm EF Calculated: 67.81% CI: 3.01 l/min*m^2 CO: 7.05 l/min RWT: 0.68 LV EDV: 114 ml FS: 34.09 % LV EDV Index: 49 m^2 LV Length: 8.12 cm LV ESV: 36.7 ml LVOT Diameter: 2 cm LV ESV Index: 16 m^2 Right Ventricle RVOT (PLAX) diameter:3.9 cm Tissue Doppler RV S': 14.9 TAPSE: 1.78 cm Left Atrium LA Systolic Pressure: 17.56 mmHg LA Area: 30.7 cm^2 LA Volume: 95 ml LA Index: 41ml/m^2 Right Atrium RA Area: 25.5 cm^2 Great Vessels Aorta Ascending Aorta: 3.6 cm Aorta Root:3.1 cm Ascending Aorta Index:1.54 cm/m^2 Demographics Age 74 Gender Male Race Height 70 in. Weight 260.41 lbs. 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 Room 228-01 Interpreting Ryan Referring Physician Susanna Physician Procedure Note Susanna Davis MD - 03/20/2025 Transthoracic Echocardiography Report (TTE) Patient name ZACKERY MARIN Jaydon Escalona 1950 Patient ID (UPI) [id number] Indications: Heart Failure preserved EF (HFpEF. Study Date03/20/2025 Technical quality: Limited visualization Limitation Reason: Dense Tissue Type of Study: TTE procedure: Adult Trans Thoracic Echo 2D Complete. Priority:RoutineHR: 68 bpmBP: 186/75 mmHg Contrast Medium: Lumason. Amount - 3 ml Conclusions Summary The left ventricle is normal in size. Severe concentric left ventricular hypertrophy is present. LV function is normal. There are no regional wall motion abnormalities. LV EF of 65-70%. Grade I diastolic dysfunction. Left atrium is mildly dilated. The right atrium is moderately dilated. Findings Mitral Valve The mitral valve is normal. No evidence of mitral stenosis. No significant mitral regurgitation. Aortic Valve The aortic valve is trileaflet with normal leaflet excursion. Aortic valve is thicken. There is no evidence of aortic valve stenosis. There is no significant aortic valve insufficiency. Tricuspid Valve The tricuspid valve is normal. There is no evidence of tricuspid stenosis. Trace tricuspid valve regurgitation. Insufficient TR jet to estimate PASP. Pulmonic Valve The pulmonic valve structure appears normal. There is no evidence of pulmonic stenosis. There is no significant pulmonic valve regurgitation. Left Atrium Left atrium is mildly dilated. Left Ventricle The left ventricle is normal in size. Severe concentric left ventricular hypertrophy is present. LV function is normal. There are no regional wall motion abnormalities. LV EF of 65-70%. Grade I diastolic dysfunction. Right Atrium The right atrium is moderately dilated. Right Ventricle Normal right ventricular cavity size and normal systolic function. Pericardial Effusion The pericardium is normal. There is no pericardial effusion visualized. Miscellaneous Aortic root is normal in size. Proximal ascending aorta is borderline dilated measuring 3.6 cm. IVC not well visualized. Valves Mitral Valve Peak E-Wave: 0.96 m/s Area (continuity): 3.2 cm^2 Peak A-Wave: 1.41 m/s Mean Velocity: 0.76 m/s Peak Gradient: 3.69 mmHg Mean Gradient: 3 mmHg Deceleration Time: 174 msec Tissue Doppler E' Velocity: 0.06 m/s E/E':12.4 E/A Ratio: 0.68 E/Lat E': 12.4 E/Med E':15.2 Aortic Valve Area (continuity): 2.6 cm^2 Mean Velocity: 1.21 m/s Area (VTI):2.6 cm^2 Mean Gradient: 8 mmHg Peak Velocity: 1.87 m/s AV VTI: 39.8 cm Peak Gradient: 13.99 mmHg Tricuspid Valve Peak E-Wave: 0.67 m/s Peak Gradient: 1.84 mmHg TR Velocity: 2.4 m/s TR Gradient: 23.04 mmHg Pulmonic Valve Peak Velocity: 1.16 m/s Mean Velocity: 0.77 m/s Peak Gradient: 5.38 mmHg Mean Gradient: 3 mmHg LVOT Peak Velocity: 1.48 m/s Mean Velocity: 0.99 m/s Peak Gradient: 9 mmHg Mean Gradient: 5 mmHg LVOT Diameter: 2 cm LVOT VTI: 33 cm Stroke Volume: 104 ml Stroke Volume Index: 44.44 ml/m^2 Structures Left Ventricle Diastolic Dimension: 4.4 cm Systolic Dimension: 2.9 cm Septum Diastolic: 1.5 cm Septum Systolic: 1.9 cm PW Diastolic: 1.5 cm PW Systolic: 1.9 cm Diastolic Length: 32.6 cm Systolic Length: 17 cm EF Calculated: 67.81% CI: 3.01 l/min*m^2 CO: 7.05 l/min RWT: 0.68 LV EDV: 114 ml FS: 34.09 % LV EDV Index: 49 m^2 LV Length: 8.12 cm LV ESV: 36.7 ml LVOT Diameter: 2 cm LV ESV Index: 16 m^2 Right Ventricle RVOT (PLAX) diameter:3.9 cm Tissue Doppler RV S': 14.9 TAPSE: 1.78 cm Left Atrium LA Systolic Pressure: 17.56 mmHg LA Area: 30.7 cm^2 LA Volume: 95 ml LA Index: 41ml/m^2 Right Atrium RA Area: 25.5 cm^2 Great Vessels Aorta Ascending Aorta: 3.6 cm Aorta Root:3.1 cm Ascending Aorta Index:1.54 cm/m^2 Demographics Age 74 Gender Male Race Height 70 in. Weight 260.41 lbs. 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 SODIUM 146(H) 136 - 145 mmol/L 03/20/2025 6:44 AM [facility] POTASSIUM 3.7 3.5 - 5.1 mmol/L 03/20/2025 6:44 AM [facility] CHLORIDE 110(H) 98 - 107 mmol/L 03/20/2025 6:44 AM [facility] CO2, VENOUS 26 22 - 30 mmol/L 03/20/2025 6:44 AM [facility] ANION GAP 13.7 <18.0 mmol/L 03/20/2025 6:44 AM [facility] GLUCOSE 99 70 - 99 mg/dL 03/20/2025 6:44 AM [facility] BUN 13 8 - 26 mg/dL 03/20/2025 6:44 AM [facility] CREATININE, BLOOD 1.12 0.70 - 1.30 mg/dL 03/20/2025 6:44 AM [facility] BUN/CREATININE RATIO 12 12 - 20 ratio 03/20/2025 6:44 AM [facility] CALCIUM 9.0 8.7 - 10.5 mg/dL 03/20/2025 6:44 AM [facility] GFR, ESTIMATED >60 >=60 03/20/2025 6:44 AM [facility] Comment: Creatinine Clearance is the preferred criteria for selecting drug dose adjustments in renally impaired patients. The GFR is provided as additional pertinent clinical information. GFR is reported in mL/min/1.73 sq m. Calculation based on the 2020 Chronic Kidney Disease Epidemiology Collaboration (CKD-EPI) equation refit without adjustment for race. GFR, EST. >60 >=60 025 6:44 AM TUFTING MACHINE OPERATOR [facility] Comment: Creatinine Clearance is the preferred criteria for selecting drug dose adjustments in renally impaired patients. The GFR is provided as additional pertinent clinical information. GFR is reported in mL/min/1.73 sq m. Calculation based on the 2009 Chronic Kidney Disease Epidemiology Collaboration (CKD-EPI). GFR, EST. NONAFRICAN >60 >=60 03/20/2025 6:44 AM TUFTING MACHINE OPERATOR [facility] Comment: Creatinine Clearance is the preferred criteria for selecting drug dose adjustments in renally impaired patients. The GFR is provided as additional pertinent clinical information. GFR is reported in mL/min/1.73 sq m. Calculation based on the 2009 Chronic Kidney Disease Epidemiology Collaboration (CKD-EPI). Blood Venipuncture / Unknown 03/20/2025 5:19 AM TUFTING MACHINE OPERATOR 03/20/2025 6:24 AM TUFTING MACHINE OPERATOR Lore Gauthier WEATHER STRIP MECHANIC, BURR MILL OPERATOR CHEMISTRY ORDERABLES Fi nal Result Performing Organization Address [facility] Co de Phone Number [facility] [place] [address] * RHYTHM STRIP (03/20/2025 12:00 AM TUFTING MACHINE OPERATOR) Only the most recent of13 resultswithin the time period is included. 03/20/2025 us Provider Scan IMG ECG ORDERABLES Final Result Performing Organization Address City/[facility]/ZIP Co de Phone Number RESULTING AGENCY * CT ANGIO CHEST W/WO CONTRAST WITH PP (POST PROCESSING) (03/19/2025 1:35 PM TUFTING MACHINE OPERATOR) Anatomical Region Laterality Modality vascular N/A Computed Tomogra phy 03/19/2025 1:35 PM TUFTING MACHINE OPERATOR Impressions 03/19/2025 2:00 PM TUFTING MACHINE OPERATOR IMPRESSION: 1. No pulmonary embolus. 2. Mild chronic bronchitis. Narrative 03/19/2025 2:00 PM TUFTING MACHINE OPERATOR DICTATING PHYSICIAN: Mateo Romo M.D. EXAM DATE: 03/19/2025 1:35 PM EXAM: CT ANGIO CHEST W/WO CONTRAST WITH PP (POST PROCESSING) COMPARISON: None. INDICATION: 74-year-old male with dyspnea and dizziness. History of hypertension, diabetes and chronic kidney disease. Former smoker. PROCEDURE: Enhanced CTA of the chest using 85 mL IV Isovue-370. Enteric contrast was not given. 1.25 mm lung windows. Dose reduction technique(s) utilized. RYT=121 mGy-cm 3D maximal intensity projection reformatted (MIP) images provided. FINDINGS: CTA: Nonenlarged main pulmonary arterial trunk without filling defects within the main, left, and right pulmonary arteries. No filling defects in the lobar and segmental pulmonary arteries. Great vessels have normal anatomic configuration. CHEST: Mediastinum and Jolanta: No pathologically enlarged supraclavicular, mediastinal or hilar lymphadenopathy. Visualized portions of the thyroid and esophagus are unremarkable. Heart: Normal size with trace pericardial effusion. Coronary artery calcifications are present. Vessels: Nonaneurysmal thoracic aorta with normal arch anatomy. Calcified atherosclerosis of the aortic arch, its branching vessels and descending thoracic aorta. Lung, Pleural and Airways: Trachea and central airways are patent. Mild diffuse bronchial wall thickening consistent with chronic bronchitis. Linear subsegmental atelectasis bilateral lower and right middle lobes. No suspicious noncalcified pulmonary nodule, pleural effusion, pneumothorax or pulmonary edema. Chest Wall and Axilla: No pathologically enlarged axillary lymphadenopathy. Upper Abdomen: No abnormality of the visualized structures. Bones: Mild multilevel spondylosis. No destructive osseous lesion. . Procedure Note Mateo Romo MD - 03/19/2025 DICTATING PHYSICIAN: Mateo Romo M.D. EXAM DATE: 03/19/2025 1:35 PM EXAM: CT ANGIO CHEST W/WO CONTRAST WITH PP (POST PROCESSING) COMPARISON: None. INDICATION: 74-year-old male with dyspnea and dizziness. History ofhypertension, diabetes and chronic kidney disease. Former smoker. PROCEDURE: Enhanced CTA of the chest using 85 mL IV Isovue-370. Entericcontrast was not given. 1.25 mm lung windows. Dose reduction technique(s)utilized. PVR=634 mGy-cm 3D maximal intensity projection reformatted (MIP) images provided. FINDINGS: CTA: Nonenlarged main pulmonary arterial trunk without filling defectswithin the main, left, and right pulmonary arteries. No filling defects inthe lobar and segmental pulmonary arteries. Great vessels have normalanatomic configuration. CHEST: Mediastinum and Jolanta: No pathologically enlarged supraclavicular,mediastinal or hilar lymphadenopathy. Visualized portions of the thyroidand esophagus are unremarkable. Heart: Normal size with trace pericardial effusion. Coronary arterycalcifications are present. Vessels: Nonaneurysmal thoracic aorta with normal arch anatomy. Calcifiedatherosclerosis of the aortic arch, its branching vessels and descendingthoracic aorta. Lung, Pleural and Airways: Trachea and central airways are patent. Milddiffuse bronchial wall thickening consistent with chronic bronchitis.Linear subsegmental atelectasis bilateral lower and right middle lobes.No suspicious noncalcified pulmonary nodule, pleural effusion,pneumothorax or pulmonary edema. Chest Wall and Axilla: No pathologically enlarged axillarylymphadenopathy. Upper Abdomen: No abnormality of the visualized structures. Bones: Mild multilevel spondylosis. No destructive osseous lesion. . IMPRESSION: 1. No pulmonary embolus. 2. Mild chronic bronchitis. Lorelei Fish APRN, CNP IM CT ORDERABLES Fin al Result * Critical Care (03/19/2025 12:34 PM TUFTING MACHINE OPERATOR) Narrative Leah Marin MD - 03/19/2025 12:34 PM TUFTING MACHINE OPERATOR Leah Marin MD 03/19/2025 6:15 PM Critical Care Performed by: Lorelei Fish APRN, CNP Authorized by: Lorelei Fish APRN, CNP Critical care provider statement: Critical care time (minutes): 35 Critical care time was exclusive of: Separately billable procedures and treating other patients Critical care was necessary to treat or prevent imminent or life-threatening deterioration of the following conditions: Hypoxia. Critical care was time spent personally by me on the following activities: Blood draw for specimens, development of treatment plan with patient or surrogate, evaluation of patient's response to treatment, examination of patient, obtaining history from patient or surrogate, ordering and performing treatments and interventions, ordering and review of laboratory studies, ordering and review of radiographic studies, pulse oximetry, re-evaluation of patient's condition and review of old charts I assumed direction of critical care for this patient from another provider in my specialty: no Care discussed with: admitting provider Lorelei Fish APRN, NATE PROCEDURE/MINOR SURGI DMITRY ORDERABLES Final Result * (ABNORMAL) Hemoglobin A1C (if indicated) (03/19/2025 12:17 PM TUFTING MACHINE OPERATOR) Only the most recent of3 resultswithin the time period is included. HGB-A1C 6.5(H) 4.0 - 6.0 % 03/19/2025 7:06 PM TUFTING MACHINE OPERATOR [facility] Est Average Glucose 139.9 mg/dL 03/19/2025 7:06 PM TUFTING MACHINE OPERATOR [facility] Blood Venipuncture / Unknown 03/19/2025 12:17 PM TUFTING MACHINE OPERATOR 03/19/2025 12:35 PM TUFTING MACHINE OPERATOR Narrative [facility] - 03/19/2025 7:06 PM TUFTING MACHINE OPERATOR HEMOGLOBIN A1C: DIABETIC PATIENTS: WELL-CONTROLLED: 6.2 - 7.0 INTERMEDIATE WELL-CONTROLLED: 7.0 - 9.0 POORLY-CONTROLLED: >9.0 Specimens containing greater than 5% of Hemoglobin F may result in lower than expected % HbA1C results. Lore Gauthier APRN, NATE CHEMISTRY ORDERABLES Fi nal Result [facility] [place] [address] * Gold Top Tube (03/19/2025 12:17 PM TUFTING MACHINE OPERATOR) Only the most recent of4 resultswithin the time period is included. Blood No Phlebotomy Charged / Unknown 03/19/2025 12:17 PM TUFTING MACHINE OPERATOR 03/19/2025 12:36 PM TUFTING MACHINE OPERATOR Lorelei Fish APRN, BURR MILL OPERATOR CHEMISTRY ORDERABLES Final Result Performing Organization Address City/[facility]/ZIP Co de Phone Number [facility] [place] [address] * Blue Top Tube (03/19/2025 12:17 PM TUFTING MACHINE OPERATOR) Only the most recent of3 resultswithin the time period is included. Blood No Phlebotomy Charged / Unknown 03/19/2025 12:17 PM TUFTING MACHINE OPERATOR 03/19/2025 12:36 PM TUFTING MACHINE OPERATOR us Lorelei Fish WEATHER STRIP MECHANIC, BURR MILL OPERATOR HEMATOLOGY ORDERABLES Final Result Performing Organization Address [facility] Co de Phone Number [facility] [place] [address] * (ABNORMAL) Lactic Acid (Lactate) (02/25/2025 6:17 PM CDT) Only the most recent of2 resultswithin the time period is included. LACTIC ACID 2.7(H) 0.7 - 2.0 mmol/L 02/25/2025 6:52 PM CDT [facility] Comment: Specimen is hemolyzed. In vitro hemolysis could affect results. Clinical correlation advised. Blood Venipuncture / Unknown 02/25/2025 6:17 PM CDT 02/25/2025 6:34 PM CDT us Ignacio Posey MD CHEMISTRY ORDERABLES Holly l Result Performing Organization Address City/[facility]/ZIP Co de Phone Number [facility] [place] [address] * CT HEAD OR BRAIN WO CONTRAST (02/25/2025 4:38 PM CDT) Only the most recent of3 resultswithin the time period is included. Anatomical Region Laterality Modality Head N/A Computed Tomogra phy 02/25/2025 4:38 PM CDT Impressions 02/25/2025 4:44 PM CDT IMPRESSION: 1. No acute intracranial abnormality. Narrative 02/25/2025 4:44 PM CDT DICTATING PHYSICIAN: Odilon Reina M.D. - [facility] EXAM: CT HEAD OR BRAIN WO CONTRAST 02/25/2025 4:38 PM HISTORY: Weakness and dizziness, recent fall. COMPARISON: February 04, 2025 TECHNIQUE: Radiation dose reduction techniques were employed. CTDIvol: 59.4 mGy. DLP: 1274 mGy-cm. FINDINGS: Brain: Hemorrhage: None. Mass: None, although small lesions may not be seen due to lack of IV contrast. Ischemia: No CT evidence of acute ischemia, although MRI is more sensitive and specific, particularly in the acute setting. Nicolas & White Matter: Mild to moderate diffuse atrophy, unchanged. No new attenuation abnormalities. Ventricles & Extraaxial Spaces: Unremarkable Vessels: Calcification in the parasellar carotid arteries. Paranasal Sinuses & Mastoids: Well-aerated, no fluid. Calvarium & Skull Base: Unremarkable. No fracture. Orbits: Visualized portions unremarkable Scalp & Soft Tissues: Unremarkable. Procedure Note Odilon Reina MD - 02/25/2025 DICTATING PHYSICIAN: Odilon [facility]: CT HEAD OR BRAIN WO CONTRAST 02/25/2025 4:38 PM HISTORY: Weakness and dizziness, recent fall. COMPARISON: February 04, 2025 TECHNIQUE: Radiation dose reduction techniques were employed. CTDIvol:59.4 mGy. DLP: 1274 mGy-cm. FINDINGS: Brain: Hemorrhage: None. Mass: None, although small lesions may not be seen due to lack of IVcontrast. Ischemia: No CT evidence of acute ischemia, although MRI is moresensitive and specific, particularly in the acute setting. Nicolas & White Matter: Mild to moderate diffuse atrophy, unchanged. Nonew attenuation abnormalities. Ventricles & Extraaxial Spaces: Unremarkable Vessels: Calcification in the parasellar carotid arteries. Paranasal Sinuses & Mastoids: Well-aerated, no fluid. Calvarium & Skull Base: Unremarkable. No fracture. Orbits: Visualized portions unremarkable Scalp & Soft Tissues: Unremarkable. IMPRESSION: 1. No acute intracranial abnormality. us Ignacio Posey MD IMG CT ORDERABLES Final R esult * CT CERVICAL SPINE WO/ CONTRAST (02/04/2025 11:29 AM CDT) Anatomical Region Laterality Modality Spine N/A Computed Tomogra phy 02/04/2025 11:2 9 AM CDT Impressions 02/04/2025 12:26 PM CDT IMPRESSION: 1. No acute fractures or evidence of traumatic malalignment. 2. Stable appearing multilevel degenerative changes scattered throughout the cervical spine, as described above. Findings are unchanged from recent CT angiogram of the head and neck dated 01/29/2025. Narrative 02/04/2025 12:[address] CERVICAL SPINE WO/ CONTRAST : 02/04/2025 11:29 AM DICTATING PHYSICIAN: LOREN ALVARADO, [facility]. HISTORY: As below. ADDITIONAL TECHNOLOGIST HISTORY: Cervicalgia, Repeated falls COMPARISON: CT angiogram of the head and neck dated 01/29/2025 is available for correlation. TECHNIQUE: CT of the cervical spine was obtained without contrast. Coronal and sagittal multiplanar reformats were performed. Image acquisition performed utilizing automated exposure control (AEC) and iterative reconstruction software in order to lower patient dose. RADIATION DOSE: DLP 458.6 mGycm. FINDINGS: Alignment and curvature: Normal. Postoperative changes: None. Vertebral body heights: The cervical vertebral body heights are maintained with no compression deformities. Stable appearing mild chronic anterior wedge deformity at T2. There are no acute fractures. Disk heights: Similar appearing mild multilevel intervertebral disc space narrowing. Marginal osteophytes are scattered throughout the cervical spine and there are bulky at the C3-C4 and C5-C6 level anteriorly. There is fusion across the anterior osteophytes at C6-C7. Epidural space: No gross abnormality. Prevertebral space: Normal thickness. Again noted is segmental ossification of the posterior longitudinal ligament at the level of C4 and C6. Stable appearing posterior disc bulges at C2-C3 through C4- C5 level and posterior disc osteophyte complex at C5-C6 and C6-C7. A small posterior central disc protrusion is noted at C3-C4 with extruded disc material extending superiorly along the posterior margin of the C3 inferior endplate. There is moderate spinal canal stenosis at the C3-C4 through C5-C6 level and mild spinal canal stenosis elsewhere. Osseous foraminal narrowing is noted at multiple levels and most severe on the right at C5-C6 and most severe in the left at the C4-C5 level. Scattered degenerative changes involve the facet joints and there are small uncovertebral joint osteophytes noted at several levels. Other findings: None. Procedure Note Loren Alvarado MD - 02/04/2025 CT CERVICAL SPINE WO/ CONTRAST : 02/04/2025 11:29 AM DICTATING PHYSICIAN: Madeleine [facility]DSMITH [facility]. HISTORY: As below. 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 TECHNIQUE: CT of the cervical spine was obtained without contrast. Coronal andsagittal multiplanar reformats were performed. Image acquisitionperformed utilizing automated exposure control (AEC) and iterativereconstruction software in order to lower patient dose. RADIATION DOSE: DLP 458.6 mGycm. FINDINGS: Alignment and curvature: Normal. Postoperative changes: None. Vertebral body heights: The cervical vertebral body heights are maintainedwith no compression deformities. Stable appearing mild chronic anteriorwedge deformity at T2. There are no acute fractures. Disk heights: Similar appearing mild multilevel intervertebral disc spacenarrowing. Marginal osteophytes are scattered throughout the cervicalspine and there are bulky at the C3-C4 and C5-C6 level anteriorly. Thereis fusion across the anterior osteophytes at C6-C7. Epidural space: No gross abnormality. Prevertebral space: Normal thickness. Again noted is segmental ossification of the posterior longitudinalligament at the level of C4 and C6. Stable appearing posterior disc bulgesat C2-C3 through C4-C5 level and posterior disc osteophyte complex atC5-C6 and C6-C7. A small posterior central disc protrusion is noted atC3-C4 with extruded disc material extending superiorly along the posteriormargin of the C3 inferior endplate. There is moderate spinal canalstenosis at the C3-C4 through C5-C6 level and mild spinal canal stenosiselsewhere. Osseous foraminal narrowing is noted at multiple levels andmost severe on the right at C5-C6 and most severe in the left at the C4-S5qefqs. Scattered degenerative changes involve the facet joints and thereare small uncovertebral joint osteophytes noted at several levels. Other findings: None. IMPRESSION: 1. No acute fractures or evidence of traumatic malalignment. 2. Stable appearing multilevel degenerative changes scattered throughoutthe cervical spine, as described above. Findings are unchanged from recentCT angiogram of the head and neck dated 01/29/2025. Carlos Escobedo APRN, CNP IMG CT ORDERABLE S Final Result * (ABNORMAL) Lipid Panel (01/30/2025 4:35 AM CDT) CHOLESTEROL 165 <200 mg/dL 01/30/2025 5:13 AM CDT [facility] TRIGLYCERIDES 222(H) <150 mg/dL 01/30/2025 5:13 AM CDT [facility] HDL CHOLESTEROL 30(L) >40 mg/dL 5:13 AM CDT [facility] LDL 91 <130 mg/dL 01/30/2025 5:13 AM CDT [facility] VLDL 44 10 - 50 mg/dL 01/30/2025 5:13 AM CDT [facility] CHOL/HDL RATIO 5.5(H) 0.0 - 4.4 01/30/2025 5:13 AM CDT [facility] NON-HDL CHOLESTEROL 135(H) <130 mg/dL 01/30/2025 5:13 AM CDT [facility] Blood Venipuncture / Unknown 01/30/2025 4:35 AM CDT 01/30/2025 4:47 AM CDT Narrative [facility] - 01/30/2025 5:13 AM CDT NCEP GUIDELINES FOR LIPID INTERPRETATION TOTAL CHOLESTEROL DESIRABLE <200 BORDERLINE 200-239 HIGH >=240 LDL CHOLESTEROL OPTIMAL <100 NEAR OPTIMAL 100-129 BORDERLINE 130-159 HIGH 160-189 VERY HIGH >=190 Calculated using the Friedewald equation. HDL CHOLESTEROL LOW <40 *HIGH >=60 TRIGLYCERIDES NORMAL <150 BORDERLINE 150-199 HIGH 200-499 VERY HIGH >=500 VLDL calculated using Triglycerides/5. *HDL CHOLESTEROL >=60 mg/dL counts as a negative risk factor; its presence removes one risk factor from the total. Based on guidelines from the National Cholesterol Education Program, desirable levels for non HDL cholesterol are 30 mg/dL above target levels for LDL cholesterol. us Lore Gauthier APRN, CNP CHEMISTRY ORDERABLES Fi nal Result [facility] [place] [address] * MRSA NASAL PCR (01/29/2025 5:26 PM CDT) MRSA PCR RESULT Negative Negative, Invalid 01/29/2025 7:10 PM CDT [facility] Other NASOPHARYNGEAL SWAB / Unknown Non-Phlebotomy Collection / Unknown 01/29/2025 5:26 PM CDT 01/29/2025 5:55 PM CDT Lore Gauthier APRN, CNP MICROBIOLOGY - GENERAL ORDERABLES Final Result Performing Organization Address City/[facility] Co de Phone Number [facility] [place] [address] * CT ANGIO HEAD AND NECK WWO CONTRAST W PP (01/29/2025 2:17 PM CDT) Anatomical Region Laterality Modality vascular N/A Computed Tomogra phy 01/29/2025 2:17 PM CDT Impressions 01/29/2025 2:48 PM CDT IMPRESSION: CTA head: 1. Diminutive left vertebral artery with scattered contrast opacification. No other large vessel occlusion. 2. Intracranial atherosclerosis with multifocal stenoses as detailed above, including some moderate to severe stenoses of the paraclinoid right internal carotid artery. CTA neck: 1. Diminutive left vertebral artery with distal V2 segment occlusion and reconstitution at the distal V3 segment. 2. No occlusion of the cervical carotid or right vertebral arteries. 3. Atherosclerosis with 60-70% proximal right internal carotid artery stenosis per NASCET criteria. 4. Cervical spine degenerative changes as detailed above, with component of DISH and OPLL. Please note that CTA may over or under estimate the degree of stenosis, and conventional angiography remains the standard for measurement. Narrative 01/29/2025 2:48 PM CDT DICTATING PHYSICIAN: Franklin Del Valle M.D. - [facility] EXAM: CT ANGIO HEAD AND NECK WWO CONTRAST W PP, 01/29/2025 2:17 PM COMPARISON: CT head same date and 12/10/2024. INDICATION: Vertigo, central, dizziness, headaches, and bilateral lower extremity weakness x2 years, increased today. PROCEDURE: CT angiogram of the head and neck was performed after the intravenous administration of 90 mL of Isovue-370. Multiplanar and MIP reformats were provided. 3-D post-processed images were reconstructed on an independent workstation with concurrent physician supervision. The NASCET method for calculating the degree of stenosis of the internal carotid arteries was used. Radiation dose reduction technique(s) were used. Total DLP (mGy-cm): 737. FINDINGS: INTRACRANIAL ANGIOGRAM: Anterior circulation: No flow-limiting stenosis or occlusion. Eccentric calcified and smaller component of noncalcified atherosclerosis of the ICAs contributing to likely moderate to severe stenoses of the paraclinoid segment of the right ICA and at least mild to moderate scattered stenoses elsewhere. No aneurysm. Posterior circulation: Diffusely hypoplastic left vertebral artery which has poor, though probably present contrast opacification within. No right vertebral or basilar artery flow-limiting stenosis or occlusion. A few scattered at least mild stenoses of the posterior cerebral arteries and smaller posterior circulation branch vessels. The right PICA provide supply to some of the left PICA territory. No aneurysm. Major cerebral veins: Grossly patent, however contrast bolus timing partially limits evaluation. EXTRACRANIAL ANGIOGRAM: Proximal great vessels: No flow-limiting stenosis, occlusion or dissection. Cervical vessels: -Carotid arteries: No occlusion. Calcified and noncalcified atherosclerosis of the carotid bifurcations and proximal internal carotid arteries, noncalcified component is prominent on the right. There is approximately 60-70% proximal right ICA stenosis and less than 50% proximal left ICA stenosis per NASCET criteria. There is additional focal 50% stenosis of the distal cervical right ICA near the skull base. -Vertebral arteries: Diffusely hypoplastic left vertebral artery with loss of opacification at the distal V2 segment and return of opacification at the distal V3 segment likely via a collateral branch vessel. No other occlusion. Patent dominant right vertebral artery with a few less than 50% stenoses proximally due to atherosclerosis and adjacent cervical spine degenerative change. NECK: Soft tissues: Intrinsic tongue musculature atrophy. Well-circumscribed fat- containing lesion in the left posterior neck subcutaneous fat compatible with a lipoma, measures approximately 7 cm in craniocaudal dimension (series 605 image 91). Bones: Prominent posterior disc extrusion with cranial migration at C3-C4, posterior disc osteophyte complexes at the other mid and lower cervical levels. Bulky anterolateral osteophyte production throughout the cervical and visualized thoracic spine, fused at some levels. Segmental ossification of the posterior longitudinal ligament at some mid and lower cervical levels. Cervical spinal canal and neural foraminal stenosis is moderate to severe at some levels. Chronic mild anterior wedge compression deformity of the T2 vertebral body. Visualized chest: Lung apices are clear. Nonspecific mild upper esophageal wall thickening. Additional findings: Some teeth are absent. Procedure Note Franklin Del Valle MD - 01/29/2025 DICTATING PHYSICIAN: Franklin Del Valle M.D. - [facility] EXAM: CT ANGIO HEAD AND NECK WWO CONTRAST W PP, 01/29/2025 2:17 PM COMPARISON: CT head same date and 12/10/2024. INDICATION: Vertigo, central, dizziness, headaches, and bilateral lowerextremity weakness x2 years, increased today. PROCEDURE: CT angiogram of the head and neck was performed after theintravenous administration of 90 mL of Isovue-370. Multiplanar and MIPreformats were provided. 3-D post-processed images were reconstructed solomon independent workstation with concurrent physician supervision. TheNASCET method for calculating the degree of stenosis of the internalcarotid arteries was used. Radiation dose reduction technique(s) wereused. Total DLP (mGy-cm): 737. FINDINGS: INTRACRANIAL ANGIOGRAM: Anterior circulation: No flow-limiting stenosis or occlusion. Eccentriccalcified and smaller component of noncalcified atherosclerosis of theICAs contributing to likely moderate to severe stenoses of the paraclinoidsegment of the right ICA and at least mild to moderate scattered stenoseselsewhere. No aneurysm. Posterior circulation: Diffusely hypoplastic left vertebral artery whichhas poor, though probably present contrast opacification within. No rightvertebral or basilar artery flow-limiting stenosis or occlusion. A fewscattered at least mild stenoses of the posterior cerebral arteries andsmaller posterior circulation branch vessels. The right PICA providesupply to some of the left PICA territory. No aneurysm. Major cerebral veins: Grossly patent, however contrast bolus timingpartially limits evaluation. EXTRACRANIAL ANGIOGRAM: Proximal great vessels: No flow-limiting stenosis, occlusion ordissection. Cervical vessels: -Carotid arteries: No occlusion. Calcified and noncalcifiedatherosclerosis of the carotid bifurcations and proximal internal carotidarteries, noncalcified component is prominent on the right. There isapproximately 60-70% proximal right ICA stenosis and less than 50%proximal left ICA stenosis per NASCET criteria. There is additional focal50% stenosis of the distal cervical right ICA near the skull base. -Vertebral arteries: Diffusely hypoplastic left vertebral artery with lossof opacification at the distal V2 segment and return of opacification atthe distal V3 segment likely via a collateral branch vessel. No otherocclusion. Patent dominant right vertebral artery with a few less than 50%stenoses proximally due to atherosclerosis and adjacent cervical spinedegenerative change. NECK: Soft tissues: Intrinsic tongue musculature atrophy. Wpcf-kigkmttueuqbjmlh-iszufekmcl lesion in the left posterior neck subcutaneous fatcompatible with a lipoma, measures approximately 7 cm in craniocaudaldimension (series 605 image 91). Bones: Prominent posterior disc extrusion with cranial migration at C3- C4,posterior disc osteophyte complexes at the other mid and lower cervicallevels. Bulky anterolateral osteophyte production throughout the cervicaland visualized thoracic spine, fused at some levels. Segmentalossification of the posterior longitudinal ligament at some mid and lowercervical levels. Cervical spinal canal and neural foraminal stenosis ismoderate to severe at some levels. Chronic mild anterior wedge compressiondeformity of the T2 vertebral body. Visualized chest: Lung apices are clear. Nonspecific mild upper esophagealwall thickening. Additional findings: Some teeth are absent. IMPRESSION: CTA head: 1. Diminutive left vertebral artery with scattered contrastopacification. No other large vessel occlusion. 2. Intracranial atherosclerosis with multifocal stenoses as detailedabove, including some moderate to severe stenoses of the paraclinoid rightinternal carotid artery. CTA neck: 1. Diminutive left vertebral artery with distal V2 segment occlusion andreconstitution at the distal V3 segment. 2. No occlusion of the cervical carotid or right vertebral arteries. 3. Atherosclerosis with 60-70% proximal right internal carotid arterystenosis per NASCET criteria. 4. Cervical spine degenerative changes as detailed above, with componentof DISH and OPLL. Please note that CTA may over or under estimate the degree of stenosis,and conventional angiography remains the standard for measurement. us Ignacio Norman MD IMG CT ORDERABLES Hloly l Result * Critical Care (01/29/2025 12:37 PM CDT) Narrative Ignacio Norman MD - 01/29/2025 12:37 PM CDT Ignacio Norman MD 01/29/2025 3:23 PM Critical Care Performed by: Ignacio Norman MD Authorized by: Ignacio Norman MD Critical care provider statement: Critical care time (minutes): 45 Critical care was necessary to treat or prevent imminent or life-threatening deterioration of the following conditions: MATHEMATICIAN failure or compromise Critical care was time spent personally by me on the following activities: Development of treatment plan with patient or surrogate, discussions with consultants, discussions with primary provider, evaluation of patient's response to treatment, examination of patient, obtaining history from patient or surrogate, ordering and performing treatments and interventions, ordering and review of laboratory studies, ordering and review of radiographic studies, pulse oximetry, re-evaluation of patient's condition and review of old charts I assumed direction of critical care for this patient from another provider in my specialty: no Care discussed with: admitting provider us Ignacio Norman MD PROCEDURE/MINOR SURGIC AL ORDERABLES Final Result * CT STROKE HEAD WO CONTRAST (01/29/2025 12:08 PM CDT) Anatomical Region Laterality Modality Head N/A Computed Tomogra phy 01/29/2025 12:0 8 PM CDT Impressions 01/29/2025 12:42 PM CDT IMPRESSION: 1. No acute intracranial hemorrhage or large vascular territory infarction. If there is persistent suspicion for acute intracranial process, please note that brain MRI would be more sensitive. Narrative 01/29/2025 12:42 PM CDT DICTATING PHYSICIAN: Franklin Del Valle M.D. - [facility] EXAM: CT STROKE HEAD WO CONTRAST, 01/29/2025 12:08 PM COMPARISON: CT 12/10/2024, 11/24/2024. INDICATION: Neuro deficit, acute, stroke suspected, complaining of chronic dizziness, headaches, and bilateral lower extremity numbness since stroke 2 years ago. Complaining of worsening headache today around 0930 hours. PROCEDURE: CT images of the head were obtained without intravenous contrast. Image reconstruction in the sagittal and coronal planes was performed. Radiation dose reduction technique(s) were used. Total DLP (mGy-cm): 1296. FINDINGS: Brain: No acute hemorrhage, large vascular territory infarction, or mass effect. Scattered as well as more confluent hypodensities within the subcortical, periventricular, and deep white matter, nonspecific though likely secondary to chronic small vessel disease. Mild diffuse brain volume loss. Ventricles and extra-axial spaces: Appropriate for age. Orbits: Symmetric bilateral proptosis. Right lens replacement. Paranasal sinuses: Predominantly clear. Middle ear and mastoid air cells: Small right mastoid effusion. Bones: No acute abnormality. Soft tissues: Vertex scalp likely scarring. Unchanged small well-circumscribed nodule in the left temporal scalp subcutaneous soft tissues, likely benign cystic lesion. Additional findings: Intracranial atherosclerotic calcifications. Procedure Note Franklin Del Valle MD - 01/29/2025 DICTATING PHYSICIAN: Franklin Del Valle M.D. - [facility] EXAM: CT STROKE HEAD WO CONTRAST, 01/29/2025 12:08 PM COMPARISON: CT 12/10/2024, 11/24/2024. INDICATION: Neuro deficit, acute, stroke suspected, complaining of chronicdizziness, headaches, and bilateral lower extremity numbness since stroke2 years ago. Complaining of worsening headache today around 0930 hours. PROCEDURE: CT images of the head were obtained without intravenouscontrast. Image reconstruction in the sagittal and coronal planes wasperformed. Radiation dose reduction technique(s) were used. Total DLP(mGy-cm): 1296. FINDINGS: Brain: No acute hemorrhage, large vascular territory infarction, or masseffect. Scattered as well as more confluent hypodensities within thesubcortical, periventricular, and deep white matter, nonspecific thoughlikely secondary to chronic small vessel disease. Mild diffuse brainvolume loss. Ventricles and extra-axial spaces: Appropriate for age. Orbits: Symmetric bilateral proptosis. Right lens replacement. Paranasal sinuses: Predominantly clear. Middle ear and mastoid air cells: Small right mastoid effusion. Bones: No acute abnormality. Soft tissues: Vertex scalp likely scarring. Unchanged smallwell-circumscribed nodule in the left temporal scalp subcutaneous softtissues, likely benign cystic lesion. Additional findings: Intracranial atherosclerotic calcifications. IMPRESSION: 1. No acute intracranial hemorrhage or large vascular territoryinfarction. If there is persistent suspicion for acute intracranialprocess, please note that brain MRI would be more sensitive. us Ignacio Norman MD IMG CT ORDERABLES Holly l Result * HEPATITIS C ANTIBODY (10/08/2024 11:30 AM CDT) [facility] hepatitis C antibody 0.08 <1 S/CO 10/08/2024 9:54 PM CDT [facility] Comment: Signal/Cutoff ratio < 0.79 is Nondetected Signal/Cutoff ratio 0.80-0.99 is Grayzone Signal/Cutoff ratio > 0.99 is Detected Supplemental assays are recommended if signal/cutoff ratio is >/=1.00. Signal/cutoff ratio result >/= 5.00 is 97% predictive of positivity for recombinant immunoblot assay (RIBA) and will be reported to the [place] [facility] as required. Blood Venipuncture / Unknown 10/08/2024 11:30 AM CDT 10/08/2024 11:48 AM CDT us Kim Benavidez WEATHER STRIP MECHANIC, [employer] M[employer] OPERATOR CHEMISTRY ORDERABLES Fin al Result [facility] [address] [place] [address], * (ABNORMAL) PSA DIAGNOSTIC,TOTAL (02/19/2019 10:38 AM CDT) [facility] PSA, TOTAL (PROSTATIC SPECIFIC ANTIGEN) 6.36(H) <=4.00 ng/mL 02/19/2019 1:24 PM CDT [facility] Blood specimen (specimen) Venipuncture / Unknown 02/19/2019 10:38 AM CDT 02/19/2019 12:34 PM CDT Narrative [facility] - 02/19/2019 1:24 PM CDT PSA NOTE: The PSA value should be used in conjunction with information available from clinical evaluation and other diagnostic procedures. 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 PRE-ARREST: Use entire range of life support measures to stabilize the patient. * Full Code Date Activated Date Inactivated Comments 03/15/2025 1:13 PM 03/19/2025 5:41 PM CPR-Full T reatment: FULL ARREST: Attempt Resuscitation/CPR wit intubation and mechanical ventilation. PRE-ARREST: Use entire range of life support measures to stabilize the patient. * Full Code Date Activated Date Inactivated Comments 02/14/2025 3:47 PM 03/15/2025 1:13 PM * Full Code Date Activated Date Inactivated Comments 01/29/2025 4:27 PM 02/14/2025 3:47 PM CPR-Full Tr eatment: FULL ARREST: Attempt Resuscitation/CPR wit intubation and mechanical ventilation. PRE-ARREST: Use entire range of life support measures to stabilize the patient. * Full Code Date Activated Date Inactivated Comments 08/07/2024 2:22 PM 01/29/2025 4:27 PM Healthcare Agents on File Name Relationship Healthcare Agent Relationship Communication Kandice Soliben Daughter/Step-Daughter Healthcare POA Mandi Hernandes Daughter/Step-Daughter First A [facility] Healthcare POA Care Teams Equipment Sterilizer Relationship Specialty Start Date End Date Kim Benavidez, WEATHER STRIP MECHANIC, BURR MILL OPERATOR [address] [place] [address] PCP - General Advanced Practice Nurse 09/28/24 Mark De Los Santos MD Consulting Physician Urology 09/05/15 Rand Tsang MD Consulting Physician Dermatopathology 01/16/18
--- OUTSIDE RECORDS SUMMARY | 2025-04-20 11:52 | XMS_ITS | Clinical Summary ---
Author Organization [facility] Address [address] [facility] [address] [facility] [address] Care Team Providers Care It Support Specialist Name Role Phone Nicolas Jung MD Unavailable Louie Lomeli MD Unavailable [phone] Jairo Sparrow MD Unavailable [phone] Kim Benavidez NP Primary Care Provider [phone] Allergies Active Allergy Reactions Criticality Noted Date Comments Ceftriaxone Nausea only Low 09/23/2021 Uldsdch-Ugl-Wka Reductase Inhibitors Other (See comments) Low 01/26/2018 Generalized pain Medications levothyroxine (SYNTHROID) 50 mcg tablet Take 1 tablet (50 mcg total) by mouth administrative representative before breakfast Active aspirin 81 mg enteric coated tablet Take 1 tablet (81 mg total) by mouth daily Not sure if he takes 30 tablet 11 4 Active gabapentin (NEURONTIN) 100 mg capsuleIndicati ons:Diabetic Peripheral Neuropathy Take 2 capsules (200 mg total) by mouth 3 (three) times a day 180 capsule 4 Active Additional Information Patient not taking.Reported on 02/08/2025 nitroglycerin (NITROSTAT) 0.[address] 1 tablet (0.4 mg total) under the tongue every 5 (five) minutes as needed for chest pain May repeat dose q 5 min, up to 3 doses total 90 tablet 1 4 Active Additional Information Patient not taking.Reported on 02/08/2025 amLODIPine (NORVASC) 10 mg tablet TAKE 1 TABLET (10 MG TOTAL) BY MOUTH DAILY 90 tablet 3 4 Active diclofenac sodium (VOLTAREN) 1 % gel Apply 2 g topically 4 (four) times a day 30 g 1 4 Active Additional Information Patient not taking.Reported on 02/08/2025 meloxicam (MOBIC) 7.5 mg tablet Take 1 [...] by mouth daily 30 tablet 11 5 026 Active calcium carbonate-vitam in D3 1,250mg (500mg elemental) - 5 mcg (200 units) per tablet Take 1 tablet by mouth daily 30 tablet 1 5 026 Active Additional Information Patient not taking.Reported on 02/08/2025 famotidine (PEPCID) 20 mg tablet Take 1 tablet (20 mg total) by mouth daily 30 tablet 1 5 026 Active Additional Information Patient not taking.Reported on 02/08/2025 predniSONE (DELTASONE) 5 mg tabletIndicatio ns:Gouty arthritis of left foot Take 1 tablet (5 mg) by mouth as directed 3 p.o. daily for 5 days then 2 p.o. daily for 5 days then 1 p.o. daily for 5 days. Collaborating physician Jordan Villanueva MD 30 tablet 5 Active Additional Information Patient not taking.Reported on 02/08/2025 isosorbide mononitrate ER (IMDUR) 30 mg 24 [...] Jordan Villanueva MD 15 tablet 5 Active Additional Information Patient not taking.Reported on 02/08/2025 clopidogreL (PLAVIX) 75 mg tablet Take 1 tablet (75 mg total) by mouth daily NO MORE REFILLS WILL BE GIVEN IF APPOINTMENT IS NOT MADE AND KEPT 60 tablet 5 Active meclizine (ANTIVERT) 25 mg tablet Take 1 tablet (25 mg total) by mouth 3 (three) times a day as needed Active losartan (COZAAR) 50 mg tablet Take 1 tablet (50 mg total) by mouth daily 90 tablet 3 5 026 Active Active Problems Problem Noted Date Diagnosed Date Neck pain 02/06/2025 Gouty arthritis of left foot 08/10/2024 Dizziness [...] 06/01/2022 Assessment & Plan (06/01/2022 3:29 PM CATTLE FARMER): Worsening, patient reports symptoms are worse 1st thing in the morning, has to clean eyes before can open; fewer symptoms throughout the day; most consistent with allergic conjunctivitis Start azelastine eyedrops Diabetic neuropathy, type II diabetes mellitus 0 05/27/2022 LALITO (acute kidney injury) 03/10/2022 Obesity (BMI 30-39.9) 03/10/2022 Other chest pain 03/09/2022 Assessment & Plan (06/01/2022 3:28 PM CATTLE FARMER): Continues to have episodes of chest pain, started in nature; can radiate to right-side of chest Patient reports some relief with ASA; has nitroglycerin Will continue to monitor; if negative cardio workup, consider esophageal spasms of source of pain Assessment & Plan (04/06/2022 11:47 AM CATTLE FARMER): Reports pressure-like chest pain today, worsening fatigue [...] (12/29/2021): Added automatically from request for surgery [id number] Leukocytosis 12/19/2021 UTI (urinary tract infection) 12/19/2021 Coronary artery disease 12/18/2021 Overview (12/18/2021): Added automatically from request for surgery [id number] Assessment & Plan (03/07/2022 9:41 AM CATTLE FARMER): Not well controlled, patient had stopped taking all medications, had elevated blood pressures today Encouraged patient to continue medications as prescribed Continue Brilinta 90 mg b.i.d., Zetia 10 mg daily Hypertensive crisis 12/16/2021 Assessment & Plan (12/17/2021 12:13 PM CDT): Present on admission, received Labetalol iv, currently resolved NSTEMI (non-ST elevated myocardial infarction) 0 12/16/2021 Overview (12/17/2021): Added automatically from request for surgery [id number] Assessment & Plan (01/10/2022 9:21 PM CDT): [...] Nasal saline spray (Simply saline, Little Remedies, Worth, Diamond) 2 second sprays or 2 squeezes into [...] (11/18/2020): Added automatically from request for surgery [id number] Assessment & Plan (03/20/2021 4:30 PM CATTLE FARMER): Stable, patient waiting on improved A1c for [...] (11/18/2020): Added automatically from request for surgery [id number] Scar of vermilion border of upper lip 07/04/2020 Overview (07/04/2020): Referral to plastic surgery for evaluation and possible affects scar tissue Cicatrix 07/04/2020 Tension headache 06/30/2020 Assessment & Plan (06/25/2021 10:33 AM CATTLE FARMER): Patient has recurrent left-sided tension headaches; likely secondary to pressure on muscles from lipoma Assessment & Plan (06/09/2021 1:59 PM CATTLE FARMER): Patient has headache for the last 4-6 [...] nostril Assessment & Plan (06/30/2020 12:31 PM CATTLE FARMER): Patient has severe left sided headache; reports worsened with looking down or leaning back in bed; may be related to sinuses vs tension type headache -given congestion may consider sinus pressure and will refer to ENT Chronic midline low back pain without sciatica 0 06/30/2020 Assessment & Plan (06/30/2020 12:33 PM CATTLE FARMER): Not well controlled; likely worsened due to poor core strength; encouraged weight loss to reduce strain on lower back (has severe central adiposity) Will give patient core exercises to strengthen low back and abodmen Lipoma of neck 06/25/2020 Assessment & Plan (06/25/2021 10:32 AM CATTLE FARMER): Not well controlled, patient has left-sided tension style headaches, S with noted changing position of head due to size of lipoma Patient benefit from surgical removal to help improve overall posture as well as potentially improved tension headaches Assessment & Plan (05/14/2021 1:29 PM CATTLE FARMER): Patient has large lipoma on back left-sided neck; reports left-sided headaches, which may be contributed by lipoma putting pressure on muscles sugar causing tension headaches Referral to Plastic surgery for removal Assessment & Plan (03/20/2021 4:29 PM CATTLE FARMER): Stable, Impacts patient ability to turn had; will continue monitor refer to surgery when appropriate Primary osteoarthritis of left knee 05/08/2020 Assessment & Plan (11/17/2021 3:53 PM CDT): Continues to have significant pain, has some symptom improvement, but limited range of motion and pain with movement Recent steroid injection Follow-up with orthopedics Assessment & Plan (04/21/2021 2:52 PM CATTLE FARMER): Stable, continues with physical therapy which is [...] monitor Assessment & Plan (05/14/2021 1:29 PM CATTLE FARMER): Improving, patient has walked about 12 lb since last visit; encouraged continued dietary changes, decreasing in take through portion control as well as lowering carbohydrate intake Encourage daily activity of 30 minutes of moderate intensity aerobic exercise daily Assessment & Plan (03/20/2021 4:29 PM CATTLE FARMER): Weight is stable, no significant change; patient [...] week Assessment & Plan (05/05/2020 3:33 PM CATTLE FARMER): Not well controlled, patient reports weight loss [...] daily Assessment & Plan (06/25/2021 10:31 AM CATTLE FARMER): Stable, unclear control, patient reports inconsistent medications use Continue levothyroxine 50 mcg daily, check TSH today Assessment & Plan (04/21/2021 2:52 PM CATTLE FARMER): Stable, well controlled; continue levothyroxine 50 mcg daily Assessment & Plan (03/20/2021 4:28 PM CATTLE FARMER): Stable, well controlled; continue levothyroxine 50 mcg daily Assessment & Plan (09/24/2020 3:00 PM CDT): Recheck TSH today as previous TSH was mildly elevated, is still elevated will adjust levothyroxine given patient has complaints of generalized fatigue Assessment & Plan (06/16/2020 9:09 AM CATTLE FARMER): Will recheck thyroid now that has been on medication for ~6 weeks Assessment & Plan (05/05/2020 3:36 PM CATTLE FARMER): Mild elevation of TSH, patient has multiple symptoms including inability to lose weight, chronic fatigue and chronic tiredness Will start at low dose levothyroxine 25 mcg, will recheck TSH in approximately 6 weeks Arthritis 03/24/2020 DM2 (diabetes mellitus, type 2) 03/24/2020 Assessment & Plan (06/01/2022 3:30 PM CATTLE FARMER): Not well controlled, A1c has always been [...] diet Assessment & Plan (06/25/2021 10:31 AM CATTLE FARMER): Stable, improving; patient A1c has been down trending to 7.5 last time, recheck A1c today Continue metformin XR 1000 mg daily Assessment & Plan (05/14/2021 1:28 PM CATTLE FARMER): Stable, improving; last A1c was decreasing to 7.5 Encouraged patient to continue with low-carbohydrate diet; encourage education dietary changes as well as regular exercise Continue metformin 1000 mg daily Assessment & Plan (04/21/2021 2:52 PM CATTLE FARMER): Stable, improving; patient reports he has been working on decreasing carbohydrates Has a decreased appetite well on Rybelsuswith minimal side effects Continue metformin 1000 mg daily with breakfast, Rybelsus 7 mg prior to breakfast Continue to monitor encourage continued decreased carbohydrate diet Recheck labs at follow-up appointment Assessment & Plan (03/20/2021 4:28 PM CATTLE FARMER): Stable, well controlled, improving Patient reports improved [...] diet Assessment & Plan (05/05/2020 3:32 PM CATTLE FARMER): Not well controlled, A1c is 7.7 today [...] strength Assessment & Plan (03/26/2020 12:24 PM CATTLE FARMER): Will check blood sugars and A1c to evaluate for control of diabetes on metformin Hyperlipidemia 03/24/2020 Assessment & Plan (12/17/2021 12:16 PM CDT): Pt is not on a statin due to intolerance LDL is 107. Started on Zetia per cardiology. Assessment & Plan (10/13/2021 2:34 PM CDT): Not well controlled, encouraged continued dietary changes and weight loss Assessment & Plan (05/14/2021 1:28 PM CATTLE FARMER): Not well controlled, patient cannot tolerate statins; encouraged dietary changes order reduce cholesterol through low-fat high-fiber diet Assessment & Plan (05/05/2020 3:35 PM CATTLE FARMER): Poorly controlled patient has elevated total and LDL cholesterol with knee depressed HDL cholesterol Triglycerides are also elevated at 254 Patient is unable to tolerate statin therapy due to muscular pain of thigh muscles Will encouraged diet and exercise as ways to maintain and modify cholesterol level Hypertension, essential 03/24/2020 Assessment & Plan (06/01/2022 3:30 PM CATTLE FARMER): Stable, improving; blood pressure today in clinic was normal; patient reports home measurements are improving Continue amlodipine 10 mg daily, hydralazine 25 mg b.i.d., metoprolol 100 mg daily Losartan was previously on medication list, but not part of pharmacy was Given blood pressures appropriate, will continue to monitor, can rehab losartan if blood pressure increases Assessment & Plan (04/06/2022 11:47 AM CATTLE FARMER): Stable, improving; most recent blood pressure was at target Continue losartan 100 mg daily, metoprolol 100 mg daily, amlodipine 10 mg daily Assessment & Plan (03/07/2022 9:40 AM CATTLE FARMER): Not well controlled; patient reports that he [...] daily Assessment & Plan (06/25/2021 10:30 AM CATTLE FARMER): Not well controlled; blood pressure is elevated this morning prior to surgery, elevated again in office Given blood pressure was just normal on 06/09/2021, will increase lisinopril to 40 mg daily Encouraged patient to consistently take medications, with no missed or skipped doses Assessment & Plan (05/14/2021 1:27 PM CATTLE FARMER): Not well controlled, blood pressure remains elevated; patient has been inconsistent with taking medications Will continue lisinopril 20 mg, follow-up at next appointment; if blood pressure still is elevated will adjust medication Assessment & Plan (03/20/2021 4:27 PM CATTLE FARMER): Stable well controlled; blood pressure a target; [...] needed Assessment & Plan (05/05/2020 3:34 PM CATTLE FARMER): Well controlled, patient's blood pressure is at target today Will continue with current therapies and continue to monitor patient Assessment & Plan (03/26/2020 12:24 PM CATTLE FARMER): Stable well controlled, continue present management Post-traumatic [...] arthroscopy Assessment & Plan (06/16/2020 9:09 AM CATTLE FARMER): Not well controlled, had relief with cortisone injection, but now has worsening pain; relief last for about 3-4 weeks -has some instability of patella, able to 'adjust' patella to relieve pain and improve ROM Assessment & Plan (05/05/2020 3:34 PM CATTLE FARMER): Stable, not controlled Patient is not able to consistently place weight on the Patient to follow-up with orthopedics further evaluation, based on recommendations may refer to physical therapy Assessment & Plan (03/26/2020 12:24 PM CATTLE FARMER): Will start treatment with diclofenac cream, and use of the triamcinolone as necessary If needed will refer to physical therapy for further improvement in pain Polyneuropathy associated with underlying diseas e ([facility]) 10/24/2019 Assessment & Plan (04/06/2022 11:44 AM CATTLE FARMER): Continues to have numbness and weakness in bilateral legs; patient scheduled nerve conduction study Continue gabapentin 100 mg TID Continue with exercise, and strength training; noted to have decreased strength in hip flexors; normal with knee -if EMG is normal, consider CK or evaluation of polymyalgia or polymysitis Assessment & Plan (05/05/2020 3:34 PM CATTLE FARMER): Patient has episodes of decreased balance due [...] management Assessment & Plan (06/25/2021 10:32 AM CATTLE FARMER): Not well controlled, patient continues to have frequent nighttime urination; encouraged patient to continue follow-up with Urology and reschedule surgery Continue myrbetriq 50 mg daily Assessment & Plan (03/20/2021 4:30 PM CATTLE FARMER): Patient continues to have increased urinary frequency, [...] Encounters Date Type Department Care Team Description 03/06/2025 Telephone [facility] at [address] [place] [address] Sonia Osorio MA 02/08/2025 12:30 PM CDT Office Visit [facility] [address] [place] [address] Louie Lomeli MD Coronary artery disease involving eyak coronary artery of eyak heart without angina pectoris (Primary Dx) 02/06/2025 10:30 AM CDT Office Visit [facility] [address] [place] [address] Jairo Sparrow MD Neck pain (Primary Dx); Dizziness and giddiness; Chronic migraine without aura without status migrainosus, not intractable; Numbness and tingling of hand from Last 3 Months Immunizations Immunization Administration [...] materials from doctor or pharmacy Sometimes 01/17/2024 [facility] Utilities Answer Date Recorded In the past 12 months has e [employer], gas, oil, or water company threatened to [...] often do you attend chur ch or christianity services? Never 07/31/2024 Do you belong to any clubs o r organizations such as adventism groups, unions, fraternal or athletic groups, or school groups? No 07/31/2024 How often do you attend meet ings of the clubs or organizations you belong to? Never 07/31/2024 Are you , , di vorced, , never , or living with a partner? 07/31/2024 Overall Financial Resource Strain (CARDIA) Answe r [...] living in a long-term (including now)? No 07/31/2024 AUDIT-C Answer Date Recorded Q1: How often do you have a drink containing alc ohol? Never 02/06/2025 Average Number of Drinks Not on file 025 Frequency of Binge Drinking Not on file 11/2024 Personal Safety Answer Date Recorded Have you [...] on file Legal Sex Male 12:23 AM CATTLE FARMER Gender Identity Not on file Sexual Orientation Not on file Last Filed Vital Signs Vital Sign Reading Time Taken Comments Blood Pressure 185/73 02/08/2025 12:57 PM CDT Pt is not sure if he took meds today or not Pulse 65 02/08/2025 12:57 PM CDT Temperature 36.7 C (98.1 F) 09/26/2024 4:13 PM CDT Respiratory Rate 19 09/26/2024 4:13 PM CDT Oxygen Saturation 98% 02/06/2025 10: 31 AM CDT Inhaled Oxygen Concentration - - Weight 118.8 kg (262 lb) 02/08/2025 12: 57 PM CDT Height 177.8 cm (5' 10) 02/08/2025 12: 57 PM CDT Body Mass Index 37.59 02/08/2025 12:57 PM CDT Plan of Treatment Health Maintenance Due Date Last Done Comments Hepatitis C Screening 1950 Dilated Eye Exam 1950 Hepatitis B Screening 1970 Well Visit 65+ 2017 Albumin Creatinine Ratio, Urine 10/28/2022 Foot Exam 10/28/2022 10/28/2021 Colon Cancer Screening-DNA Stool 12/01/2023 12/01/19 21 Depression Screening 08/27/2024 08/28/2023, 05/27/2022, 03/09/2022, Additional history exists Hemoglobin A1C 10/12/2024 04/13/2024, 04/3 , 06/10/2023, Additional history exists Covid-19 Vaccine (2024-2 6 season) 2024 03/25/2021, 07/08/2020, 06/10/2020 Influenza Vaccine (#1) 2024 , 03/19/2020, 03/18/2020, Additional history exists Fall Risk Assessment 08/02/2025 08/02/2024, 01/05/2022, 10/07/2021, Additional history exists eGFR 09/26/2025 09/26/2024, 07/31, 08/02/2024, Additional history exists Lipid Panel 01/30/2026 01/30/2025, 12/2024, 04/13/2024, Additional history exists DTaP/Tdap/Td Vaccine (3 - Td or Tdap) 02/12/2030 02/13/2020, 12/11/2015 Pneumococcal vaccine 65+ Completed 09/27/2017, 03/02 Zoster Vaccine Completed 03/19/2020, 11/2018, 03/27/2018 Prostate Cancer Screening-PSA Discontinued 10/28/2021 Medical Devices Implanted Type Area Facility Maintenance Technician Device Identifier Shelf Expiration Date Model / Serial / Lot [employer] Daysi Synergy Xd Monorail 3.5mm 12mm 144cm Delivery System 1 Access [id number] - [id number] Implanted:Qty: 1 on 08/29/2023 by Louie Lomeli MD at [facility] Stent [employer] Daysi 10/19/2024 [id number] / / [id number] [place] [employer] Stent Coronary De Rx Cocr Xience Skypoint [id number] - [id number] Implanted:Qty: 1 on 12/17/2021 by Louie Lomeli MD at [facility] [employer] 08/24/2023 [id number] [employer] Stent Coronary De Rx Cocr Xience Skypoint [id number] - [id number] Implanted:Qty: 1 on 12/17/2021 by Louie Lomeli MD at [facility] [employer] 08/28/2023 [id number] Yorn Synergy 3mm 16mm 144cm Radiopaque 1 Access Port Inflation Lumen [id number] - [id number] Implanted:Qty: 1 on 12/22/2021 by Louie Lomeli MD at [facility] DriveFactor Daysi 09/04/2022 [id number] / / [id number] Coinify Angio-Seal Vip 6fr Closere Device [id number] - [id number] Implanted:Qty: 1 on 12/22/2021 by Louie Lomeli MD at [facility] REBIScanDiscera 09/29/2022 [id number] / / [id number] Procedures Procedure Name Priority Date/Time Associated Diagnosis [...] BLOOD ORDERABLES Final Result Performing Organization Address City/[facility]/ZIP Co de Phone Number JULIETA GUERRERO ([place]) [address] [place] [address] * (ABNORMAL) Hemoglobin A1c (08/30/2023 2:23 AM CDT) Hgb A1C 6.3(H) 4.0 - 5.6 % Estimated Average Glucose 134 mg/dL JULIETA GUERRERO ([place]) Comment: The ADA recommends reporting an estimated Average Glucose (eAG) with all Hemoglobin A1c results using the equation derived from a study of 507 normal and diabetic adults. Minority populations were underrepresented and children were not included. (Diabetes Care 31:6234-6263, 2008). The eAG is not equivalent to a fasting glucose. Blood 08/30/2023 2:23 AM CDT 08/30/2023 12:50 PM CDT us Destiny Devi NP LAB BLOOD ORDERABLES Final R esult JULIETA GUERRERO ([place]) [address] [place] [address] * (ABNORMAL) Lipid panel (08/28/2023 8:27 PM [...] 2017. Non-HDL Cholesterol 123 mg/dL JULIETA GUERRERO ([place]) Comment: Interpretive Data Ages < or = [...] on 2017. Chol/HDL ratio 6 MARTINEZ GUERRERO ([place]) Blood 08/28/2023 8:27 PM CDT 08/28/2023 10:13 PM CDT us Jesus Payan MD LAB BLOOD ORDERABLES Final Re sult JULIETA GUERRERO ([place]) [address] Department [place] [address] * PSA screen (10/28/2021 2:47 PM CDT) PSA-Total 3.15 <=5.40 ng/mL JULIETA GUERRERO ([place]) Comment: Interpretive Data AGE SEX REFERENCE INTERVAL [...] data last revised 21. Testing performed by: [facility], [address] [place] [address]., [id number] Blood 10/28/2021 2:47 PM CDT 10/28/2021 7:50 PM CDT Sohail Gould MD LAB BLOOD ORDERABLES Holly l Result Performing Organization Address City/[facility]/ZIP Co de Phone Number JULIETA GUERRERO ([place]) [address] [place] [address] * (ABNORMAL) Albumin Creatinine Ratio, Urine (10/28/2021 2:47 PM CDT) Albumin Ur 713.6 mg/L [facility] ([place]) Comment: Interpretive Data No reference range established. Current interpretive data was last revised 2018. Testing performed by: [facility], [address] [place] [address]., [address] Creatinine Ur 343.1 mg/dL [facility] ([place]) Comment: Interpretive Data No reference range established. Current interpretive data was last revised 2018. Testing performed by: [facility], [address] [place] [address]., [id number] Albumin Creatinine Ratio, Ur 208(H) 1 - 29 mg/g [facility] ([place]) Comment:Testing performed by : [facility], [address] [place] [address]., [id number] Urine 10/28/2021 2:47 PM CDT 10/28/2021 9:10 PM CDT Sohail Gould MD LAB URINE ORDERABLES Holly l Result Performing Organization Address City/[facility]/ZIP Co de Phone Number JULIETA GUERRERO ([place]) [address] [facility] [place] [address] * Stool DNA - Cologuard (11/30/2020) Scribed Stool DNA - Cologuard Negative EXTERNAL LAB Stool us Historical Provider MD LAB BODY FLUIDS AND STOOL S ORDERABLES Final Result EXTERNAL LAB from Last 3 Months or Most Recently Relevant to Health Maintenance Insurance [place] [facility] MEDICARE ADVANTAGE [facility] Address: [address] [address] [place] [address] [employer] [facility] MEDICARE ADVANTAGE [facility] Address: [place] [address] [facility] MED[facility] Address: [place] [address] [facility] Address: [place] [address] [place] [address] Advance Directives For more information, please contact: [phone] * Full Code (Latest Code Status on [...] 8:46 PM 08/29/2023 4:46 PM Care Teams It Support Specialist Relationship Specialty Start Date End Date Kim Benavidez, FIELD COORDINATOR [address] [place] [address] PCP - General Family Medicine 02/08/25 Nicolas Jung MD Surgeon Orthopedic Surgery 08/05/21 Louie Lomeli MD Consulting Physician Cardiology 12/23/21 Jairo Sparrow MD [address] [place] [address] Consulting Physician Neurology 12/14/22
[2025-04-20] MEDS: SODIUM CHLORIDE 0.9% IV 1,000 ML 999 ML IV CONT (17:18)
[2025-04-20] MEDS: MECLIZINE HCL 25 MG TABLET PO (17:18)
[2025-04-20 17:29] LABS: Hematocrit 45.1 % (42.0-52.0); Hemoglobin 14.1 g/dL (14.0-18.0); Immature Granulocyte Percent A 1.0 % (0-0.5); Lymphocytes Absolute Auto 0.94 K/mm3 (0.9-3.2); Mean Corpuscular HGB Conc 31.3 g/dl (32-36); Mean Corpuscular Hemoglobin 28.5 pg (26-34); Mean Corpuscular Volume 91.3 fl (80-100); Nucleated Red Blood Cells Absolute Auto 0.000 K/mm3 (0.0-0.012); Nucleated Red Blood Cells Perc 0.0 % (0.0-0.2); Platelet Count Result 205 k/mm3 (150-375); Red Blood Count 4.94 M/mm3 (4.6-6.20); White Blood Count 10.7 K/mm3 (4.5-10.0)
[2025-04-20 17:41] LABS: Alanine Aminotransferase 25 U/L (6-50); Albumin Level 3.7 g/dL (3.5-5.1); Alkaline Phosphatase 126 U/L (38-126); Anion Gap 7 mmol/L (4-12); Aspartate Amino Transferase 27 U/L (17-59); Bilirubin,Total 0.8 mg/dL (0.2-1.3); Blood Urea Nitrogen 14 mg/dL (9-20); Calcium 8.5 mg/dL (8.4-10.2); Carbon Dioxide 27 mmol/L (22-30); Chloride 107 mmol/L (98-107); Estimated CRCL calculation 68 ml/min; Estimated Glomerular Filt Rate > 60; Glucose 134 mg/dL (65-110); Potassium 3.4 mmol/L (3.4-5.0); Sodium 141 mmol/L (137-145); Total Protein 6.5 g/dL (6.3-8.2)
--- NOTE | 2025-04-20 18:55 | ED.GENADULT ---
HPI - General Adult General Chief complaint: Dizziness <Emmanuel Lange MD - Last Filed: 04/20/25 20:11> Stated complaint: dizziness <Emmanuel Lange MD - Last Filed: 04/20/25 20:11> Time Seen by Provider: 04/20/25 16:27 <Emmanuel Lange MD - Last Filed: 04/20/25 20:11> History of Present Illness HPI narrative: Patient is a 74-year-old male who presents ER with dizziness. Any time he sits up he feels like the room is spinning and and he is going to pass out. He has been having dizziness for several months but has been increasing over last week. He has had vertigo for years and takes meclizine. He reports history stenosis of the right carotid artery that there is been conversations about possible surgery but it is questionable whether he might survive. Patient has longstanding history of uncontrolled hypertension. He takes Plavix and baby aspirin. He has no complaints of chest pain. He has no weakness or numbness to any arm or leg. No slurred speech. No acute changes dizziness today. Patient was started on oxygen 1 week ago at [facility] due to exertional hypoxia. He ran out of oxygen today and lost his portable oxygen compressor. Also over last week he has been having spells where he blacks out and falls the ground. He fell in his hip yesterday and you would like an x-ray. <Emmanuel Lange MD - Last Filed: 04/20/25 20:11> Related Data Home medications: Home Medications ?Medication ?Instructions ?Recorded ?Confirmed ?Last Taken ?Type aspirin 81 mg chewable tablet 81 mg PO DAILY 07/28/22 11/01/24 10/31/24 History (Leroy Chewable Low Dose Aspirin) clopidogrel 75 mg tablet (Plavix) 75 mg PO DAILY 11/23/23 11/01/24 Unknown History ezetimibe 10 mg tablet (Zetia) 10 mg PO DAILY 11/23/23 11/01/24 10/31/24 History <Emmanuel Lange MD - Last Filed: 04/20/25 20:11> Allergies/adverse reactions: Allergies Allergy/AdvReac Type Severity Reaction Status Date / Time ceftriaxone (From Rocephin) Allergy Unknown Nausea Verified 04/20/25 17:19 Thyuuds-[id number]-FtD Reductase Allergy Unknown Unknown Verified 04/20/25 17:19 Inhibitor <Emmanuel Lange MD - Last Filed: 04/20/25 20:11> Review of Systems Review of Systems: All systems reviewed & are unremarkable except as noted in HPI and below <Emmanuel Lange MD - Last Filed: 04/20/25 20:11> Constitutional: Constitutional: Reports no additional constitutional complaints <Emmanuel Lange MD - Last Filed: 04/20/25 20:11> ENT: Reports system reviewed and no additional complaints, except as documented <Emmanuel Lange MD - Last Filed: 04/20/25 20:11> Cardiovascular: Cardiovascular: Reports no additional cardiovascular complaints <Emmanuel Lange MD - Last Filed: 04/20/25 20:11> Respiratory: Respiratory: Reports no additional respiratory complaints <Emmanuel Lange MD - Last Filed: 04/20/25 20:11> Musculoskeletal: Musculoskeletal: Reports no additional musculoskeletal complaints <Emmanuel Lange MD - Last Filed: 04/20/25 20:11> [facility] Past Medical History Medical History: Medical History 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 Heart disease Hypertension Mother No problems noted. Sibling Acute myocardial infarction <Emmanuel Lange MD - Last Filed: 04/20/25 20:11> Social History Social History: Social History Social History: Surrogate medical decision maker: Kandice Arceo, daughter ([phone]). Code status: Full code. Smoking packs per day: 1 Smoking cigarettes per day: 20.0 Smoking status: Former smoker Tobacco type: cigarettes Second hand tobacco smoke exposure: No Smoking end date: 11/13/86 Alcohol intake: never Substance use: never Substance use type: does not use Lack of Transportation: No Lack of Food: Never True Current Housing: I Have Housing Concerned About Future Housing: No Difficulty Paying Gas/Electric Bills: No Difficulty Paying for Meds: No Currently Unemployed: No Education: Trade/Vocational Certificate Difficulty w/ Childcare or Family Care: No Living arrangements: with family Occupation/Education: retired 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 Spiritual care concerns: No <Emmanuel Lange MD - Last Filed: 04/20/25 20:11> Exam Narrative: GENERAL: Well-appearing, morbidly obese, and in no acute distress. HEAD: Normocephalic, atraumatic. Eyes: PERRL, EOMI. ENT: Mucous membranes moist. TMs normal bilaterally. NECK: Supple. CHEST: Clear to auscultation. No respiratory distress. HEART: Regular rate and rhythm. Normal peripheral pulses. ABDOMEN: Soft, nontender, nondistended. EXTREMITIES: Normal range of motion. No edema. SKIN: Warm, dry, no rash. NEURO: Alert and oriented x3. No upper extremity drift. No facial droop or speech without expressive aphasia. <Emmanuel Lnage MD - Last Filed: 04/20/25 20:11> Course Course Emergency Course: Difficult to get history from patient. I did talk to his daughter on the phone. Last time he saw vascular surgery was and [facility] or these for years ago. This certainly seems like this may be related to poor flow to the brain causing persistent vertigo and syncope. I do not feel is related to the exertional hypoxia he had been having last week. I have called to attempt transfer to [place]. Care transferred to Dr. Benavidez. <Emmanuel Lange MD - Last Filed: 04/20/25 20:11> Vital Signs Vital signs: Vital Signs Temperature 36.4 C 04/20/25 11:55 Pulse Rate 66 04/20/25 11:55 Respiratory Rate 20 04/20/25 11:55 Blood Pressure 207/92 H 04/20/25 11:55 Pulse Oximetry 96 04/20/25 11:55 Oxygen Delivery Room Air 04/20/25 11:55 Temperature 36.9 C 04/20/25 23:34 Pulse Rate 78 04/20/25 23:34 Respiratory Rate 30 H 04/20/25 23:34 Blood Pressure 192/85 H 04/20/25 23:34 Pulse Oximetry 97 04/20/25 23:34 Oxygen Delivery Nasal Cannula 04/20/25 17:06 Oxygen Flow Rate 2 04/20/25 17:06 <Emmanuel Lange MD - Last Filed: 04/20/25 20:11> Vital Signs Temperature 36.4 C 04/20/25 11:55 Pulse Rate 66 04/20/25 11:55 Respiratory Rate 20 04/20/25 11:55 Blood Pressure 207/92 H 04/20/25 11:55 Pulse Oximetry 96 04/20/25 11:55 Oxygen Delivery Room Air 04/20/25 11:55 Temperature 36.9 C 04/20/25 23:34 Pulse Rate 78 04/20/25 23:34 Respiratory Rate 30 H 04/20/25 23:34 Blood Pressure 192/85 H 04/20/25 23:34 Pulse Oximetry 97 04/20/25 23:34 Oxygen Delivery Nasal Cannula 04/20/25 17:06 Oxygen Flow Rate 2 04/20/25 17:06 <Paul Benavidez MD - Last Filed: 04/20/25 23:45> [facility] MDM Narrative Medical decision making narrative: Patient was signed out to me pending return phone call from [place] for planned for transfer to higher level of care. I called and spoke with on-call vascular surgery Neurology read the case to her happy to be on consultation for transfer with concern for possible intermittent rate limiting critical flow of his carotid stenosis. Evaluated the patient, he is neuro intact without any lateralizing symptoms. He is amenable to transfer. I also called and spoke with the hospitalist who accepts the transfer. Accepting physician is Dr. Stafford <Paul Benavidez MD - Last Filed: 04/20/25 23:45> Differential Diagnosis Differential Diagnosis: Malignant hypertension, carotid stenosis, CVA, vertigo, Meniere's disease, cerumen impaction. <Emmanuel Lange MD - Last Filed: 04/20/25 20:11> Lab Data Result diagrams: 04/20/25 17:22 04/20/25 17:22 <Emmanuel Lange MD - Last Filed: 04/20/25 20:11> Labs: Lab Results 04/20/25 Range/Units 17:22 WBC 10.7 H (4.5-10.0) K/mm3 RBC 4.94 (4.6-6.20) M/mm3 Hgb 14.1 (14.0-18.0) g/dL Hct 45.1 (42.0-52.0) % MCV 91.3 (80-100) fl MCH 28.5 (26-34) pg MCHC 31.3 L (32-36) g/dl RDW 14.5 (11.5-14.5) % Plt Count 205 (150-375) k/mm3 MPV 9.8 (7.4-10.4) fl Immature Gran % (Auto) 1.0 H (0-0.5) % Neut % (Auto) 81.6 H (45.5-73.1) % Lymph % (Auto) 8.8 L (18.3-44.2) % [place] % (Auto) 6.8 (2.6-8.5) % Eos % (Auto) 1.5 (0-4.4) % Baso % (Auto) 0.3 (0.2-1.2) % Lymph # (Auto) 0.94 (0.9-3.2) K/mm3 [place] # (Auto) 0.7 H (0.1-0.6) K/mm3 Eos # (Auto) 0.2 (0-0.3) K/mm3 Baso # (Auto) 0.0 (0.0-0.1) K/mm3 Abs Immat Gran (auto) 0.11 H (0.00-0.031) K/mm3 Absolute Neuts (auto) 8.7 H (1.3-6.7) K/mm3 Absolute Nucleated RBC 0.000 (0.0-0.012) K/mm3 Nucleated RBC % 0.0 (0.0-0.2) % Sodium 141 (137-145) mmol/L Potassium 3.4 (3.4-5.0) mmol/L Chloride 107 (98-107) mmol/L Carbon Dioxide 27 (22-30) mmol/L Anion Gap 7 (4-12) mmol/L BUN 14 D (9-20) mg/dL Creatinine 1.13 (0.7-1.3) mg/dL Estim Creat Clear Calc 68 ml/min Estimated GFR > 60 (59 - ) Glucose 134 H (65-110) mg/dL Calcium 8.5 (8.4-10.2) mg/dL Total Bilirubin 0.8 (0.2-1.3) mg/dL AST 27 (17-59) U/L ALT 25 (6-50) U/L Alkaline Phosphatase 126 (38-126) U/L NT-Pro-B Natriuret Pep 914 H (19.9-100) pg/mL Total Protein 6.5 (6.3-8.2) g/dL Albumin 3.7 (3.5-5.1) g/dL <Emmanuel Lange MD - Last Filed: 04/20/25 20:11> Lab Results 04/20/25 Range/Units 17:22 WBC 10.7 H (4.5-10.0) K/mm3 RBC 4.94 (4.6-6.20) M/mm3 Hgb 14.1 (14.0-18.0) g/dL Hct 45.1 (42.0-52.0) % MCV 91.3 (80-100) fl MCH 28.5 (26-34) pg MCHC 31.3 L (32-36) g/dl RDW 14.5 (11.5-14.5) % Plt Count 205 (150-375) k/mm3 MPV 9.8 (7.4-10.4) fl Immature Gran % (Auto) 1.0 H (0-0.5) % Neut % (Auto) 81.6 H (45.5-73.1) % Lymph % (Auto) 8.8 L (18.3-44.2) % [place] % (Auto) 6.8 (2.6-8.5) % Eos % (Auto) 1.5 (0-4.4) % Baso % (Auto) 0.3 (0.2-1.2) % Lymph # (Auto) 0.94 (0.9-3.2) K/mm3 [place] # (Auto) 0.7 H (0.1-0.6) K/mm3 Eos # (Auto) 0.2 (0-0.3) K/mm3 Baso # (Auto) 0.0 (0.0-0.1) K/mm3 Abs Immat Gran (auto) 0.11 H (0.00-0.031) K/mm3 Absolute Neuts (auto) 8.7 H (1.3-6.7) K/mm3 Absolute Nucleated RBC 0.000 (0.0-0.012) K/mm3 Nucleated RBC % 0.0 (0.0-0.2) % Sodium 141 (137-145) mmol/L Potassium 3.4 (3.4-5.0) mmol/L Chloride 107 (98-107) mmol/L Carbon Dioxide 27 (22-30) mmol/L Anion Gap 7 (4-12) mmol/L BUN 14 D (9-20) mg/dL Creatinine 1.13 (0.7-1.3) mg/dL Estim Creat Clear Calc 68 ml/min Estimated GFR > 60 (59 - ) Glucose 134 H (65-110) mg/dL Calcium 8.5 (8.4-10.2) mg/dL Total Bilirubin 0.8 (0.2-1.3) mg/dL AST 27 (17-59) U/L ALT 25 (6-50) U/L Alkaline Phosphatase 126 (38-126) U/L NT-Pro-B Natriuret Pep 914 H (19.9-100) pg/mL Total Protein 6.5 (6.3-8.2) g/dL Albumin 3.7 (3.5-5.1) g/dL <Paul Benavidez MD - Last Filed: 04/20/25 23:45> Imaging Data Radiologist's impression: ITS Impressions Hip/Pelvis X-Ray 04/20/25 16:49 IMPRESSION: 1. Severely limited evaluation portable x-ray in this patient with extensive artifacts due to large body habitus. 2. No definite acute fracture at the left hip. Osteoarthritis of hip joints. If there is significant clinical suspicion of fracture, more definitive evaluation by CT scan is suggested. Head/Neck CTA 04/20/25 18:35 IMPRESSION: 1. Right vertebral artery is patent. The left vertebral artery is nonopacified. 2. Calcified atherosclerotic plaque producing a moderate, 69 percent diameter disease of proximal left internal carotid artery. On the right side, a significant 70-90% atherosclerotic stenosis of the proximal right internal carotid artery is noted. 3. Moderately significant calcified atherosclerotic disease of intracranial portion of internal carotid arteries. The major intracranial arteries are patent. Dural venous sinuses are patent. Chest X-Ray 04/20/25 19:33 IMPRESSION: 1. Cardiomegaly and atherosclerotic changes of the aorta. 2. Congestive changes of lower lung muniz, right more than the left suggestive of mild degree of congestive heart failure. <Emmanuel Lange MD - Last Filed: 04/20/25 20:11> ITS Impressions Hip/Pelvis X-Ray 04/20/25 16:49 IMPRESSION: 1. Severely limited evaluation portable x-ray in this patient with extensive artifacts due to large body habitus. 2. No definite acute fracture at the left hip. Osteoarthritis of hip joints. If there is significant clinical suspicion of fracture, more definitive evaluation by CT scan is suggested. Head/Neck CTA 04/20/25 18:35 IMPRESSION: 1. Right vertebral artery is patent. The left vertebral artery is nonopacified. 2. Calcified atherosclerotic plaque producing a moderate, 69 percent diameter disease of proximal left internal carotid artery. On the right side, a significant 70-90% atherosclerotic stenosis of the proximal right internal carotid artery is noted. 3. Moderately significant calcified atherosclerotic disease of intracranial portion of internal carotid arteries. The major intracranial arteries are patent. Dural venous sinuses are patent. Chest X-Ray 04/20/25 19:33 IMPRESSION: 1. Cardiomegaly and atherosclerotic changes of the aorta. 2. Congestive changes of lower lung muniz, right more than the left suggestive of mild degree of congestive heart failure. <Paul Benavidez MD - Last Filed: 04/20/25 23:45> Discharge Plan Discharge Clinical Impression: Carotid artery stenosis, Hypertension, uncontrolled, Vertigo <Emmanuel Lange MD - Last Filed: 04/20/25 20:11> Patient Disposition: [facility] <Emmanuel Lange MD - Last Filed: 04/20/25 20:11> Condition: Serious <Emmanule Lange MD - Last Filed: 04/20/25 20:11> Instructions: Carotid Artery Disease (DC), COPD (Chronic Obstructive Pulmonary Disease) (DC), Dizziness (ED), Shortness of Breath (ED) <Emmanuel Lange MD - Last Filed: 04/20/25 20:11> Patient Language: Turkish <Emmanuel Lange MD - Last Filed: 04/20/25 20:11> Prescriptions: No Action clopidogrel [Plavix] 75 mg tablet 75 mg PO DAILY ezetimibe [Zetia] 10 mg tablet 10 mg PO DAILY aspirin [Leroy Chewable Aspirin] 81 mg tablet,chewable 81 mg PO DAILY potassium chloride [K-Tab] 20 mEq tablet extended release 20 meq PO DAILY Qty: 3 0RF acetaminophen 500 mg Tablet 1,000 mg PO Q6H PRN (Reason: Mild Pain (1-3) Or Fever) Qty: 30 0RF allopurinol 100 mg tablet 50 mg PO DAILY Qty: 30 0RF amlodipine 10 mg Tablet 10 mg PO DAILY Qty: 30 0RF indomethacin 50 mg capsule 50 mg PO TID Qty: 14 0RF Rx Instructions: administer with food or milk pantoprazole [Protonix] 40 mg tablet,delayed release (DR/EC) 40 mg PO QAM 14 Days Qty: 14 0RF meclizine 12.5 mg tablet 12.5 mg PO DAILY PRN (Reason: dizziness) Qty: 30 0RF Gemtesa 75 mg tablet 75 mg PO DAILY Qty: 30 1RF gabapentin 100 mg capsule See Rx Instructions .ROUTE .COMPLEX Qty: 120 3RF Dose Instruction: TAKE ONE (1) CAPSULE BY MOUTH MORNING AND NOON, TAKE TWO (2) BY MOUTH NIGHTLY AT BEDTIME Rx Instructions: TAKE ONE (1) CAPSULE BY MOUTH MORNING AND NOON, TAKE TWO (2) BY MOUTH NIGHTLY AT BEDTIME levothyroxine 50 mcg tablet See Rx Instructions .ROUTE .COMPLEX Qty: 90 1RF Dose Instruction: TAKE ONE (1) TABLET BY MOUTH DAILY Rx Instructions: TAKE ONE (1) TABLET BY MOUTH DAILY losartan 25 mg tablet See Rx Instructions .ROUTE .COMPLEX Qty: 90 1RF Dose Instruction: TAKE ONE (1) TABLET BY MOUTH EVERY DAY Rx Instructions: TAKE ONE (1) TABLET BY MOUTH EVERY DAY hydrochlorothiazide 25 mg tablet See Rx Instructions .ROUTE .COMPLEX Qty: 90 1RF Dose Instruction: TAKE ONE (1) TABLET BY MOUTH EVERY DAY Rx Instructions: TAKE ONE (1) TABLET BY MOUTH EVERY DAY metoprolol succinate 50 mg tablet extended release 24 hr See Rx Instructions .ROUTE .COMPLEX Qty: 90 1RF Dose Instruction: TAKE ONE (1) TABLET BY MOUTH DAILY Rx Instructions: TAKE ONE (1) TABLET BY MOUTH DAILY triamcinolone acetonide 0.025 % cream 1 applic topical BID Qty: 80 1RF Jardiance 25 mg tablet See Rx Instructions .ROUTE .COMPLEX Qty: 90 1RF Dose Instruction: TAKE ONE (1) TABLET BY MOUTH DAILY Rx Instructions: TAKE ONE (1) TABLET BY MOUTH DAILY <Emmanuel Lange MD - Last Filed: 04/20/25 20:11> Follow-up/Referrals: Kim Benavidez, RN [Primary Care Provider, Nursing] <Emmanuel Lange MD - Last Filed: 04/20/25 20:11> Time of Disposition: 21:32 <Emmanuel Lange MD - Last Filed: 04/20/25 20:11> 21:32 <Paul Benavidez MD - Last Filed: 04/20/25 23:45>
[2025-04-20 20:20] LABS: NT Pro B Type Natriuretic Pept 914 pg/mL (19.9-100)
[2025-04-20] MEDS: LORazepam INJ (*CRX) 2 MG/ML VIAL 1 MG IV PUSH (21:49)
--- NOTE | 2025-04-20 23:36 | PC.NURSE ---
Pt oxygen saturation 79% on 2L via NC, pt placed on rebreather and MD Benavidez made aware
--- NOTE | 2025-04-20 23:36 | PC.NURSE ---
Pt urine incontinent, bed linens changed and pt repositioned.
--- NOTE | 2025-04-20 23:58 | PC.NURSE ---
Pt removing pulse oximeter and cardiac cath lab manager, pt educated on importance of keeping monitoring devices in place. Pt AOx4, verbalized understanding.
[2025-04-21] VITALS (74 sets, daily range): BP systolic 106–217; BP diastolic 63–155; PULSE 63–104; RESP 14–34; TEMP 37.2; O2SAT 82–100
[2025-04-21] MEDS: IPRATROPIUM 0.5 MG/ALBUTEROL SULFATE 2.5 MG (BASE) AMPUL.NEB 3 ML INHALATION ×3 (00:16→00:37)
--- NOTE | 2025-04-21 00:38 | PCRCNOTE ---
Pt taken to imaging, RCS attempted ABG once and will attempt once she returns.
[2025-04-21 01:22] LABS: Alveolar/Arterial O2 Gradient 425.7 mmHg; Fractional Inspired Oxygen 80 %; HCO3 ABG 27.2 mEq/l (22.0-26.0); Oxygen Content ABG 19.8 %vol (16.0-22.0); Oxygen Saturation ABG 95.6 % (95.0-100.0); PCO2 ABG 55.5 mmHg (35.0-45.0); PO2 ABG 86.4 mmHg (80.0-100.0); PO2 FiO2 Ratio Arterial Blood 1.08 %
[2025-04-21 01:25] LABS: Liters per Minute 15.0 LPM; Modified Allen's Test Pass; Site Drawn RIGHT RADIAL
--- NOTE | 2025-04-21 01:27 | PC.NURSE ---
[facility] notified of pt's change in status and now on Bipap. States they will reach out to the provider and call back.
[2025-04-21] MEDS: FUROSEMIDE INJ 40 MG/4 ML VIAL 20 MG IV PUSH (01:38)
--- NOTE | 2025-04-21 02:52 | PC.NURSE ---
Pt placed in hospital bed
--- NOTE | 2025-04-21 09:17 | PC.NURSE ---
[facility] transfer center given update on patient.
== END 2025-04-21 12:40 | disposition short-term general hospital (02) ==
PROVIDERS: Emergency Medicine; Emergency Provider Emergency Medicine
DX: I65.23 Occlusion and stenosis of bilateral carotid arteries (principal); I12.9 Hypertensive chronic kidney disease with stage 1 through stage 4 chronic kidney disease, or unspecified chronic kidney disease; R42 Dizziness and giddiness; S79.912A Unspecified injury of left hip, initial encounter; E11.22 Type 2 diabetes mellitus with diabetic chronic kidney disease; M10.472 Other secondary gout, left ankle and foot; N18.32 Chronic kidney disease, stage 3b; E11.51 Type 2 diabetes mellitus with diabetic peripheral angiopathy without gangrene; I73.9 Peripheral vascular disease, unspecified; E11.42 Type 2 diabetes mellitus with diabetic polyneuropathy; E03.9 Hypothyroidism, unspecified; E66.01 Morbid (severe) obesity due to excess calories; Z68.37 Body mass index [BMI] 37.0-37.9, adult; Z95.5 Presence of coronary angioplasty implant and graft; Z79.02 Long term (current) use of antithrombotics/antiplatelets; Z79.82 Long term (current) use of aspirin; Z79.84 Long term (current) use of oral hypoglycemic drugs; Z79.899 Other long term (current) drug therapy; R91.8 Other nonspecific abnormal finding of lung field; I51.7 Cardiomegaly; M16.0 Bilateral primary osteoarthritis of hip; W18.39XA Other fall on same level, initial encounter
CPT/HCPCS: 36415; 36600; 70496; 70498; 71045; 73502; 80053; 82805; 83880; 85018; 85025; 94640; 96361; 96374; 96375; 96376; 99285; A9270; J0360; J1938; J2060; J7030; Q9967